=== PATIENT | female | born 1960 | race Caucasian/White ===

== ENCOUNTER → 2020-07-14 08:35 | Outpatient (BNVA) | payer MEDICARE, MEDICAID, SELFPAY | PROVIDERS: Visit Provider Advanced Practice Midwife | DX: Z76.89 Persons encountering health services in other specified circumstances (principal) ==

== ENCOUNTER 2020-07-14 09:00 | Outpatient (RCR) | payer MEDICARE, MEDICAID, SELFPAY ==
--- NOTE | 2020-06-15 04:16 | HO.OPPROGNO ---
Subjective Subjective Date of Service: 06/13/20 Reason For Visit: DEPRESSION Interim History: Jaja reports she is doing well. 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 This began about one month ago. is helping pt with monitoring pt's mood, sleep, to assess for sx hypomania. Pt reports she stopped Depakote, is using Trazodone prn only and is feeling well. Son Myke is doing well, is sober, attending meetings and has applied for a job with [employer]. Grand-daughter Ana has initiated course work to become a mannequin maker and is helping to care for pt's son's children. She does struggle with issues at times which pt and believe to be developmental and in response to the pandemic. Medication Compliance: Yes Side effects from medications: Yes (Depakote. Pt stopped) Attending Groups: No (NA) Review of Systems Review of Systems Yes all other systems are reviewed and are negative Cardiovascular: Reports other (recent lipid panel pt reports was WNL) Respiratory: Reports other (COPD sx are well managed) Reports other (RLS sx managed with ropinirole) Mental Status Exam Mental Status Exam Patient Orientation: Person, Place, Time and Situation Level of Consciousness: Appropriate Patient Behavior: Appropriate Mood Description: Calm and Appropriate Affect Description: Calm and Appropriate Patient Cognition Impaired: No Ability to Follow Directions: Excellent Speech Pattern: Clear and Appropriate Memory Description: Intact Hallucinations: None Delusions: Not Present Thought Process: Intact Thought Content: positive for Intact Judgement: Good Diagnostics Labs Labs: Aug 2020 and prn Discharge Plan Discharge Attending provider: Padmini Castorena Medications: Continued lithium carbonate 450 mg tablet extended release 450 mg PO DAILY Qty: 30 RF: 0 citalopram [Celexa] 20 mg tablet 20 mg PO DAILY Qty: 30 RF: 0 trazodone 100 mg tablet 100 mg PO BEDTIME PRN (Reason: insomnia) Qty: 30 RF: 0 pregabalin [Lyrica] 50 mg capsule 50 mg PO .Five (5) times daily Qty: 150 RF: 0 No Action nystatin 100,000 unit/mL suspension 100,000 unit PO DAILY PRN (Reason: 5 ml . po , swish and swallow bid) 15 Days Qty: 250 RF: 1 atorvastatin 20 mg tablet 20 mg PO DAILY RF: 0 levothyroxine 75 mcg tablet 75 mcg PO DAILY RF: 0 ropinirole 0.5 mg tablet 0.5 mg PO BEDTIME RF: 0 albuterol sulfate [Ventolin HFA] 90 mcg/actuation HFA aerosol inhaler 2 puff PO Q6H PRN (Reason: Shortness Of Breath) RF: 0 cholecalciferol (vitamin D3) 25 mcg (1,000 unit) tablet 25 mcg PO DAILY RF: 0 fluticasone propion-salmeterol 113-14 mcg/actuation aerosol powdr breath activated 1 puff PO BID RF: 0 Assessment & Plan Patient educated on: medication risk/benefits (Discontinue Depakote. Continue Citalopram, [place], Lyrica, Trazodone) and therapeutic strategies (Self-care, sleep, assessment for sx of leah) Informed Consent: understands and further education needed Reason for contiued therapy Substantial Risk for: inability to function and rapid decompensation Greater than 50% of the session was spent on counseling and/or coordination of care
--- NOTE | 2020-07-14 16:40 | HO.OPPROGNO ---
Subjective Subjective Date of Service: 07/15/20 Reason For Visit: DEPRESSION Interim History: Jaja reports she is well. She is in need of refills. We will order labs today. 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 Family is well, they are all working together to make holidays special given pandemic restrictions. Reports regime to be effective-using Trazodone rarely as she is currently able to sleep well without it. Medication Compliance: Yes Side effects from medications: No Review of Systems Reports other (RLS sx managed with ropinirole) Psychiatric: Reports no additional psychiatric complaints and Reports as per [facility] Mental Status Exam Mental Status Exam Patient Orientation: Person, Place, Time and Situation Level of Consciousness: Awake, Appropriate and Alert Patient Behavior: Appropriate, Talkative and Cooperative Mood Description: Calm Affect Description: Calm and Flat (mild) Patient Cognition Impaired: No Ability to Follow Directions: Excellent Speech Pattern: Clear, Appropriate, Spontaneous Speech and Soft-Spoken Memory Description: Intact Hallucinations: None Delusions: Not Present Thought Process: Intact and Goal Oriented Thought Content: positive for Intact and positive for Goal Oriented Judgement: Good Diagnostics Labs Labs: Lab orders sent today. Pt plans to follow up on 07/21/20. Discharge Plan Discharge Attending provider: Padmini Castorena Medications: Continued trazodone 100 mg tablet 100 mg PO BEDTIME PRN (Reason: insomnia) Qty: 30 RF: 0 lithium carbonate 450 mg tablet extended release 450 mg PO DAILY Qty: 30 RF: 1 citalopram [Celexa] 20 mg tablet 20 mg PO DAILY Qty: 30 RF: 1 pregabalin [Lyrica] 50 mg capsule 50 mg PO .Five (5) times daily Qty: 150 RF: 0 No Action nystatin 100,000 unit/mL suspension 100,000 unit PO DAILY PRN (Reason: 5 ml . po , swish and swallow bid) 15 Days Qty: 250 RF: 1 atorvastatin 20 mg tablet 20 mg PO DAILY RF: 0 levothyroxine 75 mcg tablet 75 mcg PO DAILY RF: 0 ropinirole 0.5 mg tablet 0.5 mg PO BEDTIME RF: 0 albuterol sulfate [Ventolin HFA] 90 mcg/actuation HFA aerosol inhaler 2 puff PO Q6H PRN (Reason: Shortness Of Breath) RF: 0 cholecalciferol (vitamin D3) 25 mcg (1,000 unit) tablet 25 mcg PO DAILY RF: 0 fluticasone propion-salmeterol 113-14 mcg/actuation aerosol powdr breath activated 1 puff PO BID RF: 0 Assessment & Plan Assessment & Plan (1) Bipolar II disorder: Status: Acute Code(s): F31.81 - Bipolar II disorder Assessment and Plan: -Continue current regime- [place], Citalopram, Lyrica -Change Trazodone to prn-pt reports sleep to be improved and not needing this agent much-No refill needed per pt report. -Continue psychotherapy with Matthew KENDRICK, [facility]. Patient educated on: medication risk/benefits and therapeutic strategies Informed Consent: understands Reason for contiued therapy Substantial Risk for: inability to function and rapid decompensation Greater than 50% of the session was spent on counseling and/or coordination of care
--- NOTE | 2020-07-31 08:29 | P.EN_ITS ---
Event Note Date of Service: 07/31/20 Event Note: On 07/30/20, discussed with pt that [facility] out patient clinic will cl ose. Pt will discuss with her therapist, Matthew KENDRICK of [facility], and arrange for her medication appointments to be consolidated with her psychotherapy.
--- NOTE | 2020-07-31 08:29 | PM.EVENT ---
Event Note Date of Service: 07/31/20 Event Note: On 07/30/20, discussed with pt that [facility] out patient clinic will close. Pt will discuss with her therapist, Matthew KENDRICK of [facility], and arrange for her medication appointments to be consolidated with her psychotherapy.
== END 2020-08-14 23:55 | disposition home or self-care (01) ==
LOC: HO.PAOS 09:00
PROVIDERS: Visit Provider Clinical Nurse Specialist Psychiatric/Mental Health, Adult
DX: F33.2 Major depressive disorder, recurrent severe without psychotic features (principal); Z79.899 Other long term (current) drug therapy
CPT/HCPCS: 99213

== ENCOUNTER → 2020-07-21 08:15 | Outpatient (BNVA) | payer MEDICARE, MEDICAID, SELFPAY | PROVIDERS: Visit Provider Advanced Practice Midwife | DX: Z76.89 Persons encountering health services in other specified circumstances (principal) ==

== ENCOUNTER 2020-08-06 08:55 | Outpatient (REF) | payer MEDICARE, MEDICAID, SELFPAY | END 2020-08-06 08:56 | disposition home or self-care (01) | LOC: HO.LAB 08:55 | PROVIDERS: PCP Internal Medicine; Visit Provider Internal Medicine | DX: Z20.828 Contact with and (suspected) exposure to other viral communicable diseases (principal) | CPT/HCPCS: C9803; U0003 ==

== ENCOUNTER 2020-12-25 22:08 | Emergency (ER) | payer MEDICARE, MEDICAID, SELFPAY ==
--- NOTE | ~2020-12-25 | XR_ITS ---
EXAMINATION: XR SHOULDER, LEFT CLINICAL INFORMATION: Fell on left shoulder. COMPARISON: None TECHNIQUE: AP external rotation, Grashey, scapular Y, and axillary views of the left shoulder. FINDINGS: There is a nondisplaced transverse fracture surgical neck left humerus. There is no dislocation. There is deformity involving the left AC joint likely previous intervention or injury The soft tissues are normal. XR/XR shoulder LT min 2V IMPRESSION: Undisplaced transverse fracture surgical neck left humerus. There is no dislocation. The soft tissues are unremarkable.
[2020-12-25 22:22] VITALS: BP 127/60; PULSE 65; RESP 16; O2SAT 97; BMI 21.0
--- NOTE | 2020-12-25 22:24 | ED_ITS ---
HPI - Extremity Problem General Chief complaint: Fall Stated complaint: fall Time Seen by Provider: 12/25/20 22:23 Source: patient Mode of arrival: ambulatory Limitations: no limitations History of Present Illness HPI Narrative: fell in kitchen and landed on left shoulder, one hour ago Complaint: extremity pain Onset (ago): hour(s) Pain Consistency: constant Location: left and upper extremity Quality: sharp Radiation: none Relieving factors: nothing Exacerbating factors: range of motion Related Data Home Medications Medication Instructions Recorded Confirmed cholecalciferol (vitamin D3) 25 mcg PO DAILY 06/15/20 09/15/20 fluticasone propion-salmeterol 1 puff PO BID 06/15/20 09/15/20 levothyroxine 75 mcg PO DAILY 06/15/20 09/15/20 ropinirole 0.5 mg PO BEDTIME 06/15/20 09/15/20 pramipexole 0.5 mg tablet 0.5 mg PO BEDTIME 07/21/20 09/15/20 Previous Rx's Medication Instructions Recorded nystatin 100,000 unit/mL oral 100,000 unit PO DAILY PRN 15 Days 05/28/20 suspension #250 ml trazodone 100 mg PO BEDTIME PRN #30 tab 06/13/20 albuterol sulfate 90 mcg/actuation 2 puff PO Q6H PRN 90 Days #3 ea 09/25/20 aerosol inhaler atorvastatin 20 mg tablet 20 mg PO DAILY #90 tab 10/01/20 Lyrica 50 mg capsule 50 mg PO 5XD #150 cap NS 12/10/20 citalopram 20 mg tablet 20 mg PO DAILY #30 cap 12/10/20 lithium carbonate 450 mg 450 mg PO DAILY #30 cap 12/10/20 tablet,extended release famotidine 20 mg tablet 20 mg PO DAILY #90 tab 12/17/20 oxycodone 5 mg PO Q6H PRN #10 tab 12/25/20 Allergies Allergy/AdvReac Type Severity Reaction Status Date / Time olanzapine [From ZYPREXA] AdvReac Intermediate RLS Verified 12/25/20 22:25 symptoms atypical antipsychotics AdvReac Severe This class Uncoded 12/25/20 22:25 appears to potentiate RLS/Akathesia Review of Systems Constitutional: Constitutional: Reports no additional constitutional complaints Eyes: Eyes: Reports no additional eye complaints ENT: Denies dizziness Cardiovascular: Cardiovascular: Reports no additional cardiovascular complaints Respiratory: Respiratory: Reports as per HPI Gastrointestinal: Gastrointestinal: Reports no additional gastrointestinal complaints Genitourinary: Genitourinary: Reports no additional female genitourinary complaints Musculoskeletal: Musculoskeletal: Reports no additional musculoskeletal complaints Integumentary/Breasts: Skin/Breast: Denies rash Neurologic: Reports system reviewed and no additional complaints, except as documented, Denies dizziness and Denies Sensory deficit (Neuro) Psychiatric: Psychiatric: Denies anxiety [facility] Past Medical History Medical History Bipolar II disorder COPD (chronic obstructive pulmonary disease) HLD (hyperlipidemia) Hypothyroidism RLS (restless legs syndrome) Surgical History H/O: hysterectomy Family History Family History Mother No problems noted. Father No problems noted. Social History Social History Alcohol intake: never Smoking Status: Current every day smoker Tobacco Type: Cigarette Cigarettes Per Day: 3 Advance Directives: No Advance Directives Information Provided: No Sexual orientation: Straight/Heterosexual Physical Exam Vital Signs: Vital Signs: Last Vital Signs Pulse 65 12/25/20 22:22 Resp 16 12/25/20 22:22 BP 127/60 12/25/20 22:22 Pulse Ox 97 12/25/20 22:22 Body Mass Index 21.0 Const: Other: frail appearing in pain Nutritional Appearance: thin Orientation/consciousness: oriented to person and patient oriented x3 Limitations: no limitations HENMT: Head: Yes normal to inspection Ears: external ears normal General nose exam: Normal external nose present Mouth: Normal oral and palatal mucosa present and oropharynx normal Throat: Yes posterior oropharynx normal Eyes: General: appearance normal, both eyes and all related structures Neck: Other: supple Neck: Yes normal visual inspection Chest: Chest palpation & inspection: normal inspection of the chest Resp: Auscultation: clear to auscultation bilaterally Cardio: Jugular venous distension: no JVD Rate: regular rate Rhythm: regular rhythm Heart sounds: S1 normal heart sound present and S2 normal heart sound present GI: Inspection: Yes normal to inspection Palpation (GI): Soft to palpation, nontender and No hepatosplenomegaly present Auscultation: normal bowel sounds : General: Yes no CVA tenderness Back/Spine/Pelvis: Back: no CVA tenderness Skin: General skin exam: no rashes or lesions noted Neuro: General: oriented to person and patient oriented x3 Cranial nerves: Yes CN's II-XII intact bilaterally Motor exam (neuro): 5/5 motor strength present throughout Sensory Exam: No Sensory deficit (Neuro) Extrem: Other: left shoulder with swelling unable to range Psych: Appearance: grossly normal MDM - Extremity (Nontraumatic) Imaging Data shoulder left: Radiologist's impression: nondisplace fx Discharge Plan Discharge Clinical Impression: Fracture of shoulder Qualifiers: Encounter type: initial encounter Fracture type: closed Laterality: left Qualified Code(s): S42.92XA - Fracture of left shoulder girdle, part unspecified, initial encounter for closed fracture Patient Disposition: Home, Self-Care Instructions: Arm Fracture in Adults (ED) Prescriptions: No Action nystatin 100,000 unit/mL suspension 100,000 unit PO DAILY PRN (Reason: 5 ml . po , swish and swallow bid) 15 Days Qty: 250 RF: 1 albuterol sulfate [Ventolin HFA] 90 mcg/actuation HFA aerosol inhaler 2 puff PO Q6H PRN (Reason: Shortness Of Breath) 90 Days Qty: 3 RF: 1 atorvastatin 20 mg tablet 20 mg PO DAILY Qty: 90 RF: 8 citalopram 20 mg tablet 20 mg PO DAILY Qty: 30 RF: 0 lithium carbonate 450 mg tablet extended release 450 mg PO DAILY Qty: 30 RF: 0 pregabalin [Lyrica] 50 mg capsule 50 mg PO 5XD Qty: 150 RF: 0 famotidine 20 mg tablet 20 mg PO DAILY Qty: 90 RF: 8 trazodone 100 mg tablet 100 mg PO BEDTIME PRN (Reason: insomnia) Qty: 30 RF: 0 levothyroxine 75 mcg tablet 75 mcg PO DAILY RF: 0 ropinirole 0.5 mg tablet 0.5 mg PO BEDTIME RF: 0 cholecalciferol (vitamin D3) 25 mcg (1,000 unit) tablet 25 mcg PO DAILY RF: 0 fluticasone propion-salmeterol 113-14 mcg/actuation aerosol powdr breath activated 1 puff PO BID RF: 0 pramipexole 0.5 mg tablet 0.5 mg PO BEDTIME RF: 0 Referrals: Smooth Gray MD [Primary Care Provider] - 10 days Martell Temple MD [Physician] - 5 days
[2020-12-25] MEDS: oxyCODONE HCl ER 10 MG TAB.ER.12H PO (22:55)
== END 2020-12-25 23:54 | disposition home or self-care (01) ==
PROVIDERS: Emergency Provider Emergency Medicine; PCP Internal Medicine
DX: S42.215A Unspecified nondisplaced fracture of surgical neck of left humerus, initial encounter for closed fracture (principal); W01.0XXA Fall on same level from slipping, tripping and stumbling without subsequent striking against object, initial encounter; E78.5 Hyperlipidemia, unspecified; J44.9 Chronic obstructive pulmonary disease, unspecified; F17.210 Nicotine dependence, cigarettes, uncomplicated; Y93.9 Activity, unspecified; Y92.010 Kitchen of single-family (private) house as the place of occurrence of the external cause; Y99.9 Unspecified external cause status
CPT/HCPCS: 73030; 99283; 99284

== ENCOUNTER 2021-01-06 08:21 | Outpatient (REF) | payer MEDICARE, MEDICAID, SELFPAY ==
--- NOTE | ~2021-01-06 | XR_ITS ---
EXAMINATION: XR SHOULDER, LEFT CLINICAL INFORMATION: Pain. COMPARISON: Left shoulder radiographs dated 12/25/2020. TECHNIQUE: AP and scapular Y views of the left shoulder. FINDINGS: Redemonstration of a comminuted proximal left humeral fracture with a dominant transverse component through the humeral neck. No dislocation. Acromioclavicular marginal osteophytes. Possible loose body within the inferior aspect of the left glenohumeral joint space. XR/XR shoulder LT min 2V IMPRESSION: Displaced proximal left humeral fracture with a dominant transverse component to the humeral neck. Similar anatomic alignment when compared to the prior examination.
== END 2021-01-06 08:22 | disposition home or self-care (01) ==
LOC: HO.HOSX 08:21
PROVIDERS: PCP Internal Medicine; Visit Provider Physician Assistant
DX: M25.512 Pain in left shoulder (principal); S42.302A Unspecified fracture of shaft of humerus, left arm, initial encounter for closed fracture; S42.202A Unspecified fracture of upper end of left humerus, initial encounter for closed fracture; W01.0XXA Fall on same level from slipping, tripping and stumbling without subsequent striking against object, initial encounter; Y93.01 Activity, walking, marching and hiking; Y92.003 Bedroom of unspecified non-institutional (private) residence as the place of occurrence of the external cause; Y99.8 Other external cause status; G25.81 Restless legs syndrome; E78.5 Hyperlipidemia, unspecified; E03.9 Hypothyroidism, unspecified; F17.210 Nicotine dependence, cigarettes, uncomplicated; Z88.8 Allergy status to other drugs, medicaments and biological substances
CPT/HCPCS: 73030; 99202; J1040

== ENCOUNTER 2021-02-06 09:12 | Outpatient (REF) | payer MEDICARE, MEDICAID, SELFPAY ==
--- NOTE | ~2021-02-06 | XR_ITS ---
EXAMINATION: XR SHOULDER, LEFT CLINICAL INFORMATION: Fracture of the upper humerus. COMPARISON: Radiographs on 01/06/2021 of the left shoulder. TECHNIQUE: AP external rotation, Grashey, scapular Y, and axillary views of the left shoulder. FINDINGS: A transverse surgical neck fracture of the left humerus is in unchanged alignment when compared to 01/06/2021. There is evidence of bony remodeling and interval healing. There is no dislocation. No new fractures identified. Marginal osteophytes of the acromioclavicular joint are redemonstrated. No other significant change. XR/XR shoulder LT min 2V IMPRESSION: Overall stable alignment of left humeral surgical neck fracture with evidence of interval bony remodeling. No dislocation.
== END 2021-02-06 09:13 | disposition home or self-care (01) ==
LOC: HO.XRAY 09:12
PROVIDERS: PCP Internal Medicine; Visit Provider Physician Assistant
DX: S42.202D Unspecified fracture of upper end of left humerus, subsequent encounter for fracture with routine healing (principal); X58.XXXD Exposure to other specified factors, subsequent encounter
CPT/HCPCS: 73030; 99212

== ENCOUNTER 2021-03-09 07:38 | Outpatient (REF) | payer MEDICARE, MEDICAID, SELFPAY ==
--- NOTE | ~2021-03-09 | XR_ITS ---
EXAMINATION: XR SHOULDER, LEFT CLINICAL INFORMATION: Fracture follow-up COMPARISON: 12/25/2020 and 02/06/2021 TECHNIQUE: Two views of the left shoulder. 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 Again noted is the fracture of the surgical neck of the humerus with 0.5 cm of anterior displacement of the humeral shaft fragment. Although marginal callus formation is noted, there is no convincing solid bridging bone between the humeral head and shaft fragments. Alignment is maintained at the glenohumeral joint. The humeral head is well-positioned over the glenoid. The visualized left upper lung is normal. XR/XR shoulder LT min 2V IMPRESSION: There is mild healing response of the proximal humeral fracture. Currently, there is no convincing solid bridging bone between fragments.
== END 2021-03-09 07:39 | disposition home or self-care (01) ==
LOC: HO.HOSX 07:38
PROVIDERS: Visit Provider Physician Assistant
DX: S42.202D Unspecified fracture of upper end of left humerus, subsequent encounter for fracture with routine healing (principal)
CPT/HCPCS: 73030; 99212

== ENCOUNTER 2021-04-02 10:00 | Outpatient (RCR) | payer MEDICARE, MEDICAID, SELFPAY ==
--- NOTE | 2021-02-26 13:41 | MHC.PT.EP ---
[facility] [place] Office [place] Office [place] Office [address] Stephanie Combs [address] [phone] F: [phone] F: [phone] F: [phone] F: [phone] Physical Therapy Plan of Care Date of Evaluation: Date of Surgery: N/A Diagnosis: fracture of upper end of R humerus Assessment: 60 y/o F [facility] referred for fracture of L proximal humerus on 12/25/20 (9 weeks ago). Pt complains of pain and difficulty with dressing, grooming, sleeping, lifting, and reaching. Examination shows decreased L shoulder ROM in flexion and ER, increased pain with end-range P/AAROM, and decreased scapular and RTC strength. Recommend PT 2x/week for 5 weeks to address impairments, implement HEP, and optimize functional mobility. Will utilize [facility] protocol for Non-operative proximal humeral fracture rehabilitation protocol. Frequency and Duration: The patient will be seen 2x/week for 5 weeks Short Term Goals: 2 weeks: 1. I with HEP 2. Pt will increase L shoulder flexion by >10 degrees 3. Pt will increase L shoulder ER by >5 degrees Nursing Home Goals: 5 weeks: 1. I with HEP and self-management of sx 2. Pt will be able to reach over head to complete grooming and bathing with <3/10 pain 3. Pt will be able to lift >10# with <3/10 pain to facilitate return to work Treatment Plan: Modalities to reduce pain, spasms and effusion. Manual therapy to restore motion and function. Therapeutic exercise to improve strength and flexibility. Neuromuscular re-education for posture and balance. Therapeutic activities to return to functional activities of daily living. Electronically signed by: Maryam Turcios PT Please sign and return to therapist. Thank you for your referral.
--- NOTE | 2021-05-12 11:48 | MHC.PT.DC ---
[facility] [place] Office [place] Office [employer] Office [address] Stephanie Combs [address] [phone] F: [phone] F: [phone] F: [phone] F: [phone] Physical Therapy Discharge Report Diagnosis: Humeral Fx Date of Surgery: DOI 12/25/20 Date of Evaluation: 02/26/21 Date of Discharge: 05/12/21 Treatments to Date: 6 Cancellations to Date: 0 No Shows to Date: 4 Discharge Status: Independent with HEP Visit Non-compliance Discharge Summary: Pt did not f/u with further visits and is not d/c Electronically signed by: Maryam Turcios PT Please sign and return to therapist. Thank you for your referral.
== END 2021-05-12 11:49 | disposition home or self-care (01) ==
LOC: HO.PT 10:00
PROVIDERS: Visit Provider Physician Assistant
DX: S42.202D Unspecified fracture of upper end of left humerus, subsequent encounter for fracture with routine healing (principal)
CPT/HCPCS: 97110; 97140; 97161

== ENCOUNTER 2021-04-27 07:10 | Outpatient (REF) | payer MEDICARE, MEDICAID, SELFPAY | END 2021-04-27 07:11 | disposition home or self-care (01) | LOC: HO.HOSX 07:10 | PROVIDERS: Visit Provider Physician Assistant | DX: Z13.89 Encounter for screening for other disorder (principal) ==

== ENCOUNTER → 2021-07-07 14:32 | Outpatient (BNVA) | payer SELFPAY | PROVIDERS: PCP Internal Medicine | DX: Z02.83 Encounter for blood-alcohol and blood-drug test (principal) ==

== ENCOUNTER 2021-07-21 13:50 | Emergency (ER) | payer MEDICARE, MEDICAID, SELFPAY ==
[2021-07-21 14:02] VITALS: BP 112/84; PULSE 75; RESP 18; TEMP 36.6; O2SAT 95; BMI 19.3
--- NOTE | 2021-07-21 14:11 | ED.PSYCH ---
HPI - Psych General Chief Complaint: Psychiatric Symptoms Stated Complaint: CRISIS Time Seen by Provider: 07/21/21 14:06 Source: patient and family Mode of arrival: ambulatory Limitations: no limitations History of Present Illness MD complaint: feels depressed and anxiety Onset (ago): week(s) Duration: getting worse History of same: Yes Relieving factors: none Context: significant life stressor Associated psychiatric symptoms: depression Associated symptoms: denies other symptoms Treatments prior to arrival: none Related Data Home Medications Medication Instructions Recorded Confirmed cholecalciferol (vitamin D3) 25 25 mcg PO DAILY 06/15/20 07/21/21 mcg (1,000 unit) tablet fluticasone 113 mcg-salmeterol 14 1 puff PO BID 06/15/20 02/11/21 mcg/actuation breath activated powdr ropinirole 0.5 mg tablet 0.5 mg PO BEDTIME 06/15/20 02/11/21 pramipexole 0.5 mg tablet 0.5 mg PO BEDTIME 07/21/20 02/11/21 pramipexole 0.25 mg tablet mg PO 01/06/21 02/11/21 atorvastatin 20 mg tablet 1 tab PO DAILY 07/21/21 07/21/21 citalopram 20 mg tablet 1 tab PO DAILY 07/21/21 07/21/21 pramipexole 0.25 mg tablet 1 tab PO BID 07/21/21 07/21/21 pregabalin 50 mg capsule (Lyrica) 1 cap PO 5XD 07/21/21 07/21/21 Previous Rx's Medication Instructions Recorded nystatin 100,000 unit/mL oral 100,000 unit PO DAILY PRN 15 Days 05/28/20 suspension #250 ml trazodone 100 mg tablet 100 mg PO BEDTIME PRN #30 tab 06/13/20 atorvastatin 20 mg tablet 20 mg PO DAILY #90 tab 10/01/20 famotidine 20 mg tablet 20 mg PO DAILY #90 tab 12/17/20 tramadol 50 mg tablet 50 mg PO Q6H PRN 7 Days #28 tab 01/06/21 oxycodone 5 mg tablet 5 mg PO Q8H PRN 7 Days #21 tab 01/20/21 albuterol sulfate 90 mcg/actuation 2 puff INHALATION Q4-6H PRN 90 02/05/21 aerosol inhaler (Ventolin HFA) Days #3 ea levothyroxine 75 mcg tablet 75 mcg PO DAILY #30 tab 03/30/21 lorazepam 0.5 mg tablet 0.5 mg PO BID PRN 28 Days #56 tab 06/16/21 Lyrica 50 mg capsule (pregabalin) 50 mg PO 5XD #150 cap NS 07/13/21 citalopram 20 mg tablet 20 mg PO DAILY #30 cap 07/13/21 lithium carbonate 450 mg 450 mg PO DAILY #30 cap 07/13/21 tablet,extended release Allergies Allergy/AdvReac Type Severity Reaction Status Date / Time olanzapine [From ZYPREXA] AdvReac Intermediate RLS Verified 03/09/21 09:37 symptoms atypical antipsychotics AdvReac Severe This class Uncoded 02/06/21 09:37 appears to potentiate RLS/Akathesia Review of Systems Review of Systems: Constitutional : No Fever, No Chills ENT/Mouth : No Ear Pain, No Nasal Congestion, No sore throat Eyes: No Eye Pain, No Swelling, No Redness Cardiovascular : No Chest Pain, No SOB Respiratory : No Cough, No Sputum, No Dyspnea Gastrointestinal : No Nausea, No Vomiting, No Diarrhea, No Hematochezia, No Melena Genitourinary : No Dysuria, No Urinary Frequency, No Hematuria Musculoskeletal : No Myalgias Skin : No Skin Lesions, No rash Neuro : No Weakness, No Numbness, No Paresthesias, No Dizziness, No Headache Psych : positive Anxiety, positive Depression, no SI/HI Heme/Lymph: No Lymphadenopathy Endocrine : No Polyuria, No Polydipsia All other systems reviewed and are negative PMFSH Past Medical History Attestation statement: The following information was validated with the patient. Medical History Bipolar II disorder COPD (chronic obstructive pulmonary disease) HLD (hyperlipidemia) Hypothyroidism Osteoporosis RLS (restless legs syndrome) Surgical History H/O: hysterectomy Family History Family History Mother No problems noted. Father No problems noted. Son Substance use disorder Social History Social History Housing: House Alcohol intake: never Patient Tobacco Use Status: Current everyday Tobacco user Tobacco use type: Cigarette Cigarettes Per Day: 5 e-Cigarette/Vaping Use: Never Used Second Hand Smoke Exposure: No Advance Directives: No Advance Directives Information Provided: No service: No Current occupational status: employed Sexual orientation: Straight/Heterosexual Physical Exam Vital Signs: Vital Signs: Last Vital Signs Temp 98.4 F 07/21/21 14:37 Pulse 78 07/21/21 14:37 Resp 16 07/21/21 14:37 BP 111/70 07/21/21 14:37 Pulse Ox 95 07/21/21 14:37 BMI result Body Mass Index 19.3 Appearance: Alert. Oriented X3. No acute distress. Anxious, tearful Eyes: Pupils equal, round and reactive to light. ENT: Pharynx normal. Neck: Normal inspection. Neck supple. CVS: Normal heart rate and rhythm. Pulses normal. Respiratory: No respiratory distress. Breath sounds normal. Abdomen: Soft and nontender. Skin: Skin warm and dry. Normal skin color. Normal skin turgor. Extremities: No lower extremity edema. No calf ttp Neuro: Oriented X 3. No motor deficit. No sensory deficit. CN 2-12 intact Psych: tearful, anxious, depressed, present with patient Course Course Course Narrative: Physician observation started at 402pm. Patient placed in physician observation because the patient needed more time for CARE team evaluation. At the time observation was started the patient's vitals were stable, patient is alert and oriented but anxious and tearful, Neuro: nonfocal, CV RRR, Lungs clear MDM - Psych MDM Narrative Medical decision making narrative: 60 yo female wit hx of COPD, RLS, bipolar disorder, HLD here with c/o worsening depression given recent loss of mother and significant life stressors at this time clearance labs, COVID swab, EKG, CARE team consult Lab Data Result diagrams: 07/21/21 15:33 07/21/21 15:33 Labs: Lab Results 07/21/21 07/21/21 07/21/21 Range/Units 15:33 15:33 15:33 WBC 8.3 (4.8-10.8) X10*3/uL RBC 4.01 L (4.20-5.50) X10*6/uL Hgb 13.1 (12.0-16.0) g/dl Hct 39.6 (37.0-47.0) % MCV 98.8 H (80.0-98.0) fL MCH 32.7 (27.0-33.0) pg MCHC 33.1 (31.0-35.0) g/dl RDW 13.3 (11.0-16.0) % Plt Count 363 (160-400) X10*3/uL MPV 10.4 (9.4-12.3) fL Immature Gran % (Auto) 0.1 (0.0-0.4) % Neut % (Auto) 46.1 (45-73) % Lymph % (Auto) 40.1 H (20-40) % [place] % (Auto) 9.1 (2-11) % Eos % (Auto) 3.9 (0-4) % Baso % (Auto) 0.7 (0-2) % Lymph # (Auto) 3.3 (1.2-4.9) X10*3/uL [place] # (Auto) 0.8 (0.1-1.2) X10*3/uL Eos # (Auto) 0.3 (0.0-0.4) X10*3/uL Baso # (Auto) 0.1 (0.0-0.2) X10*3/uL Abs Immat Gran (auto) 0.01 (0.00-0.03) X10*3/uL Absolute Neuts (auto) 3.8 (2.0-8.3) x10*3/uL Absolute Nucleated RBC 0.000 (0.0-0.012) X10*3/uL Nucleated RBC % (auto) 0.0 (0.0-0.2) /100WBC Sodium 140 (135-145) mmol/L Potassium 3.6 (3.3-5.1) mmol/L Chloride 102 (96-108) mmol/L Carbon Dioxide 30 H (22-29) mmol/L Anion Gap 12 (12-20) BUN 11 (9-16) mg/dL Creatinine 0.85 (0.5-1.4) mg/dL Estim Creat Clear Calc 54.7 Estimated GFR > 60 Random Glucose 111 (60-115) mg/dL Calcium 9.1 (8.4-10.2) mg/dL Total Bilirubin 0.4 (0.0-1.0) mg/dL Direct Bilirubin < 0.2 (0.0-0.5) mg/dL AST 14 (5-31) U/L ALT 9 (0-31) U/L Alkaline Phosphatase 134 H (39-117) U/L Total Protein 6.6 (6.5-8.0) g/dL Albumin 4.1 (3.5-5.0) g/dL [place] (0.60-1.20) mmol/L Ethyl Alcohol mg/dL COVID-19 ([facility]) Negative (Negative) COVID-19 Clin Com See Note 07/21/21 07/21/21 Range/Units 15:33 15:33 WBC (4.8-10.8) X10*3/uL RBC (4.20-5.50) X10*6/uL Hgb (12.0-16.0) g/dl Hct (37.0-47.0) % MCV (80.0-98.0) fL MCH (27.0-33.0) pg MCHC (31.0-35.0) g/dl RDW (11.0-16.0) % Plt Count (160-400) X10*3/uL MPV (9.4-12.3) fL Immature Gran % (Auto) (0.0-0.4) % Neut % (Auto) (45-73) % Lymph % (Auto) (20-40) % [place] % (Auto) (2-11) % Eos % (Auto) (0-4) % Baso % (Auto) (0-2) % Lymph # (Auto) (1.2-4.9) X10*3/uL [place] # (Auto) (0.1-1.2) X10*3/uL Eos # (Auto) (0.0-0.4) X10*3/uL Baso # (Auto) (0.0-0.2) X10*3/uL Abs Immat Gran (auto) (0.00-0.03) X10*3/uL Absolute Neuts (auto) (2.0-8.3) x10*3/uL Absolute Nucleated RBC (0.0-0.012) X10*3/uL Nucleated RBC % (auto) (0.0-0.2) /100WBC Sodium (135-145) mmol/L Potassium (3.3-5.1) mmol/L Chloride (96-108) mmol/L Carbon Dioxide (22-29) mmol/L Anion Gap (12-20) BUN (9-16) mg/dL Creatinine (0.5-1.4) mg/dL Estim Creat Clear Calc Estimated GFR Random Glucose (60-115) mg/dL Calcium (8.4-10.2) mg/dL Total Bilirubin (0.0-1.0) mg/dL Direct Bilirubin (0.0-0.5) mg/dL AST (5-31) U/L ALT (0-31) U/L Alkaline Phosphatase (39-117) U/L Total Protein (6.5-8.0) g/dL Albumin (3.5-5.0) g/dL [place] 0.15 L (0.60-1.20) mmol/L Ethyl Alcohol < 10 mg/dL COVID-19 ([facility]) (Negative) COVID-19 Clin Com ECG Data Attestation: I personally reviewed and interpreted this ECG as follows: ECG interpretation date: 07/21/21 ECG interpretation time: 14:59 Interpretation: Rate: 63 Rhythm: NSR [place]: normal Normal P waves. Normal NANCI. Normal QRS complex. Poor R wave progression ST T wave : nonspecific no DAFNE qTC: normal prior studies: no acute ischemia The study has been interpreted contemporaneously by me. . Discharge Plan Discharge Clinical Impression: Depression Qualifiers: Depression Type: unspecified Qualified Code(s): F32.A - Depression, unspecified Prescriptions: No Action nystatin 100,000 unit/mL suspension 100,000 unit PO DAILY PRN (Reason: 5 ml . po , swish and swallow bid) 15 Days Qty: 250 RF: 1 atorvastatin 20 mg tablet 20 mg PO DAILY Qty: 90 RF: 8 famotidine 20 mg tablet 20 mg PO DAILY Qty: 90 RF: 8 oxycodone 5 mg tablet 5 mg PO Q8H PRN (Reason: pain) 7 Days Qty: 21 RF: 0 albuterol sulfate [Ventolin HFA] 90 mcg/actuation HFA aerosol inhaler 2 puff inhalation Q4-6H PRN (Reason: shortness of breath or wheezing) 90 Days Qty: 3 RF: 2 levothyroxine 75 mcg tablet 75 mcg PO DAILY Qty: 30 RF: 11 lorazepam 0.5 mg tablet 0.5 mg PO BID PRN (Reason: anxiety) 28 Days Qty: 56 RF: 5 citalopram 20 mg tablet 20 mg PO DAILY Qty: 30 RF: 8 lithium carbonate 450 mg tablet extended release 450 mg PO DAILY Qty: 30 RF: 0 pregabalin [Lyrica] 50 mg capsule 50 mg PO 5XD Qty: 150 RF: 0 trazodone 100 mg tablet 100 mg PO BEDTIME PRN (Reason: insomnia) Qty: 30 RF: 0 ropinirole 0.5 mg tablet 0.5 mg PO BEDTIME RF: 0 cholecalciferol (vitamin D3) 25 mcg (1,000 unit) tablet 25 mcg PO DAILY RF: 0 fluticasone propion-salmeterol 113-14 mcg/actuation aerosol powdr breath activated 1 puff PO BID RF: 0 atorvastatin 20 mg tablet 1 tab PO DAILY RF: 0 citalopram 20 mg tablet 1 tab PO DAILY RF: 0 pregabalin [Lyrica] 50 mg capsule 1 cap PO 5XD RF: 0 pramipexole 0.25 mg tablet 1 tab PO BID RF: 0 pramipexole 0.5 mg tablet 0.5 mg PO BEDTIME RF: 0 pramipexole 0.25 mg tablet PO RF: 0 tramadol 50 mg tablet 50 mg PO Q6H PRN (Reason: pain) 7 Days Qty: 28 RF: 0
--- NOTE | 2021-07-21 14:15 | ECG_ITS ---
Test Reason : MEDICAL CLEARANCE Blood Pressure : / mmHG Vent. Rate : 063 BPM Atrial Rate : 063 BPM P-R Int : 136 ms QRS Dur : 102 ms QT Int : 398 ms P-R-T Axes : 058 072 067 degrees QTc Int : 407 ms Normal sinus rhythm Septal infarct (cited on or before 21-JUL-2021) Abnormal ECG When compared with ECG of 20-JUL-2018 07:52, Questionable change in initial forces of Septal leads Referred By: Marilee Campos Electronically Signed By:Sebastian Vivas
[2021-07-21 14:37] VITALS: BP 111/70; PULSE 78; RESP 16; TEMP 36.9; O2SAT 95
[2021-07-21] MEDS: LORazepam 0.5 MG TABLET PO (15:39)
[2021-07-21 15:41] LABS: MANUAL DIFF FLAG NO
[2021-07-21 15:42] LABS: Basophils Absolute Auto 0.1 X10*3/uL (0.0-0.2); Basophils Percent Auto 0.7 % (0-2); Eosinophils Absolute Auto 0.3 X10*3/uL (0.0-0.4); Eosinophils Percent Auto 3.9 % (0-4); Hematocrit 39.6 % (37.0-47.0); Hemoglobin 13.1 g/dl (12.0-16.0); Imm Gran Abs Auto 0.01 X10*3/uL (0.00-0.03); Imm Gran Pct Auto 0.1 % (0.0-0.4); Lymphocytes Absolute Auto 3.3 X10*3/uL (1.2-4.9); Lymphocytes Percent Auto 40.1 % (20-40); Mean Corpuscular HGB Conc 33.1 g/dl (31.0-35.0); Mean Corpuscular Hemoglobin 32.7 pg (27.0-33.0); Mean Corpuscular Volume 98.8 fL (80.0-98.0); Mean Platelet Volume 10.4 fL (9.4-12.3); Monocytes Absolute Auto 0.8 X10*3/uL (0.1-1.2); Monocytes Percent Auto 9.1 % (2-11); Neutrophils Absolute Auto 3.8 x10*3/uL (2.0-8.3); Neutrophils Percent Auto 46.1 % (45-73); Platelet Count 363 X10*3/uL (160-400); Red Blood Count 4.01 X10*6/uL (4.20-5.50); Red Cell Distribution Width 13.3 % (11.0-16.0); White Blood Count 8.3 X10*3/uL (4.8-10.8)
[2021-07-21 15:50] LABS: Lithium 0.15 mmol/L (0.60-1.20)
[2021-07-21 15:55] LABS: Ethanol < 10 mg/dL
[2021-07-21 15:57] LABS: Alanine Aminotransferase 9 U/L (0-31); Albumin Level 4.1 g/dL (3.5-5.0); Alkaline Phosphatase 134 U/L (39-117); Anion Gap 12 (12-20); Aspartate Amino Transferase 14 U/L (5-31); Bilirubin Direct < 0.2 mg/dL (0.0-0.5); Bilirubin Total 0.4 mg/dL (0.0-1.0); Blood Urea Nitrogen 11 mg/dL (9-16); Calcium 9.1 mg/dL (8.4-10.2); Carbon Dioxide 30 mmol/L (22-29); Chloride 102 mmol/L (96-108); Creatinine Clr Calc Pharmacy 54.7; Estimated Glomerular Filt Rate > 60; Glucose Random 111 mg/dL (60-115); Potassium 3.6 mmol/L (3.3-5.1); Sodium 140 mmol/L (135-145); Total Protein 6.6 g/dL (6.5-8.0)
[2021-07-21 15:59] LABS: COVID-19 Test Negative (Negative)
--- NOTE | 2021-07-21 22:19 | MHC.CARE ---
CARE team notified of pt's planned arrival by in psychiatric provider this morning, requesting an evaluation to determine if she meets medical necessity for an admission. Pt contacted psychiatry this morning expressing that she is experiencing debilitating symptoms of anxiety and depression while she emeka with the grief associated with the loss of her mother and the 6th anniversary of her eldest son passing. She was observed to be anxious and irritable upon arrival to the behavior health pod, and engaged in a lengthy verbal argument with her after he tried to share something with the nurse outside of the her room. She accepted 0.5mg of ativan for agitation and has been sleeping since administration. CARE team clinicians attempted to meet with pt at 6pm and 10pm, however was unable to be roused awake. Initial assessment will be completed by this conventional mortgage underwriter and CARE team will follow up in the morning to complete mental status and determine final disposition and plan of care.
[2021-07-22 02:30] VITALS: BP 125/59; PULSE 61; RESP 16; TEMP 36.1; O2SAT 96
[2021-07-22] MEDS: LORazepam 0.5 MG TABLET PO ×2 (02:36→08:15)
[2021-07-22 02:52] LABS: Amphetamine Screen Urine Not Detected (Not Detect); Barbiturates, Urine Not Detected (Not Detect); Benzodiazepines Screen Urine POSITIVE (Not Detect); Cannabinoid Screen Urine POSITIVE (Not Detect); Cocaine Screen Urine POSITIVE (Not Detect); Fentanyl, urine Not Detected (Not Detect); Opiate Screen Urine Not Detected (Not Detect); Phencyclidine Screen Urine Not Detected (Not Detect)
[2021-07-22 05:52] LABS: Appearance Urine CLEAR; Color Urine YELLOW; Glucose Urine UA NEG (NEG); Leukocyte Esterase Urine NEG (NEG); Nitrite Urine NEG (NEG); PH 6.5 (5.0-8.0); Specific Gravity - Urine 1.015 (1.005-1.025); Urine Blood NEG (NEG); Urine Ketones NEG (NEG); Urine Protein NEG (NEG-TRACE)
--- NOTE | 2021-07-22 05:55 | PC.NURSE ---
Patient is currently in bed appears sleeping, no distress observed/reported at this time, patient was up from form 0130 to 0330, restless, tearful, PRN Ativan 0.5 mg administered as orderd with + effect, patient is awaiting Care Team evaluation in the morning, medication compliant, VSS, will continue to monitor.
[2021-07-22 05:58] LABS: Amorphous Sediment Urine 2+ /LPF; Bacteria Urine 1+ /LPF; Squamous Epithelial Cell Urine 2+ /LPF
[2021-07-22] MEDS: Levothyroxine Sodium 75 MCG TABLET PO (06:41)
[2021-07-22] MEDS: Pregabalin 50 MG CAPSULE PO ×4 (06:46→21:15)
--- NOTE | 2021-07-22 07:13 | PC.NURSE ---
patient appears to remain at rest at present, respirations are even and unlabored, patient appears in no distress. soon after arrival, patient was restless, some pacing, talking to self in room.
[2021-07-22] MEDS: Atorvastatin Calcium 20 MG TABLET PO (08:03)
[2021-07-22] MEDS: Pramipexole Di-HCL 0.25 MG TABLET PO ×2 (08:03→21:15)
[2021-07-22] MEDS: Escitalopram Oxalate 10 MG TABLET PO (08:04)
[2021-07-22] MEDS: Lithium Carbonate ER 450 MG TABLET.ER PO (08:04)
--- NOTE | 2021-07-22 08:23 | PC.NURSE ---
patient presents with pressured speech, tearful. t/w encouraged patient to wait when client asked about remaining ativan dose (had 1st dose around 130am out of two) client was unable to wait and asked for second dose, then stating after taking it i dont want to be on anything like this when i go home
--- NOTE | 2021-07-22 19:10 | PC.NURSE ---
Pt resting on bed in NAD, breathing with ease on RA with equal chest rise and fall bilaterally. Pt denies SI/HI. Pt states I'm just so anxious, I had asked [facility] for medicine but I didn't get any. I don't want benzos for when I leave here, but I don't mind being on ativan while I'm here. Pt continues I know I am prescribed two ativan per day, and this RN informs pt she rec'd 2 doses today. Pt agrees. Pt states Like I said, I don't want ativan for when I leave here, because I want a medication that I can take every single day. They said the medicine that I'm taking right now should help me, but let me tell you, it isn't. It isn't at all. This RN reassures pt that provider was contacted by [facility] for medication to help pt with her c/o anxiety. Pt expresses understanding. This RN to f/u with provider regarding meds.
[2021-07-22 19:15] VITALS: BP 136/85; PULSE 70; TEMP 36.1; O2SAT 95
[2021-07-22] MEDS: hydrOXYzine HCL 50 MG TABLET PO (19:46)
[2021-07-23] MEDS: Pregabalin 50 MG CAPSULE PO ×2 (06:10→11:51)
[2021-07-23 06:12] VITALS: BP 95/68; PULSE 72; RESP 15; TEMP 36.4; O2SAT 96
--- NOTE | 2021-07-23 06:17 | PC.NURSE ---
Patient slept through the night, no distress observed/reported, behavior appropriate, medication compliant, patient is pre-accepted to S1, disposition per care team section 12 inpatient bed search, VSS, will continue to monitor.
[2021-07-23] MEDS: Levothyroxine Sodium 75 MCG TABLET PO (06:34)
--- NOTE | 2021-07-23 07:02 | PC.NURSE ---
patient appears to remain asleep at present respirations are even and unlabored, patient appears in no distress
[2021-07-23] MEDS: Lithium Carbonate ER 450 MG TABLET.ER PO (08:31)
[2021-07-23] MEDS: Escitalopram Oxalate 10 MG TABLET PO ×2 (08:31→08:36)
[2021-07-23] MEDS: Atorvastatin Calcium 20 MG TABLET PO ×2 (08:31→08:36)
[2021-07-23] MEDS: Pramipexole Di-HCL 0.25 MG TABLET PO (11:51)
--- NOTE | 2021-07-23 15:21 | P.CNPS_ITS ---
History of Present Illness Date of Service: 07/23/21 Chief Complaint: Bipolar disorder,depressed;Cocaine/cannabis use Reason for Consult: involuntary hospitalization versus discharge from ED decision HPI Narrative: pt reports she was not doing well several days ago and came into the ED to be admitted for med adjustment. she feels disillusioned and misled today after being stuck in the ED for three days with daily promises of admission. she states she is feeling better, her crisis is past, and she just wants to do home. she feels she can get by on her current regimen until she is able to get in the door at a psych prescriber's office; her PCP has been bridging her in recent weeks/months. her recent crisis was precipitated by the anniversary of the loss of her son to opioid overdose 4 years ago and the loss of her mother, with whom she reports being very close, about a month ago. her situation was discussed in detail, including the risks/benefits to staying for med adjustment versus discharge to aftercare in the community. she was assessed as having capacity to make the decision and made a clear expression of preference to go home today. her was present for about half of the hour-long meeting, and the R/B were discussed in detail with him as well. CARE team was notified that no 12b would be signed and that pt was requested referral for appointment with prescriber at [facility] or [facility]. pt denied any SI/SIBI. Past Psychiatric History: see CARE team note Personal & Social History: see CARE team note ON LICENSE OF [facility] Medical History Bipolar II disorder COPD (chronic obstructive pulmonary disease) HLD (hyperlipidemia) Hypothyroidism Osteoporosis RLS (restless legs syndrome) Surgical History H/O: hysterectomy Substance History: cocaine, cannabis. h/o stimulant misuse. pt may have benzo addiction per history Diagnostics Vital Signs (24Hr): Vital Signs - 24 hr 07/22/21 19:15 07/23/21 06:12 Temperature 97 F 97.6 F Pulse Rate 70 72 Respiratory Rate 15 Blood Pressure 136/85 95/68 Pulse Oximetry 95 96 BMI result Body Mass Index 19.3 Labs Results: 07/21/21 15:33 07/21/21 15:33 Labs: Laboratory Results - last 48 hr 07/21/21 07/21/21 07/21/21 15:33 15:33 15:33 WBC 8.3 RBC 4.01 L Hgb 13.1 Hct 39.6 MCV 98.8 H MCH 32.7 MCHC 33.1 RDW 13.3 Plt Count 363 MPV 10.4 Immature Gran % (Auto) 0.1 Neut % (Auto) 46.1 Lymph % (Auto) 40.1 H [place] % (Auto) 9.1 Eos % (Auto) 3.9 Baso % (Auto) 0.7 Lymph # (Auto) 3.3 [place] # (Auto) 0.8 Eos # (Auto) 0.3 Baso # (Auto) 0.1 Abs Immat Gran (auto) 0.01 Absolute Neuts (auto) 3.8 Absolute Nucleated RBC 0.000 Nucleated RBC % (auto) 0.0 Sodium 140 Potassium 3.6 Chloride 102 Carbon Dioxide 30 H Anion Gap 12 BUN 11 Creatinine 0.85 Estim Creat Clear Calc 54.7 Estimated GFR > 60 Random Glucose 111 Calcium 9.1 Total Bilirubin 0.4 Direct Bilirubin < 0.2 AST 14 ALT 9 Alkaline Phosphatase 134 H Total Protein 6.6 Albumin 4.1 TSH 1.50 Urine Color Urine Appearance Urine pH Ur Specific [place] Urine Protein Urine Glucose (UA) Urine Ketones Urine Blood Urine Nitrite Ur Leukocyte Esterase Urine RBC Urine WBC Ur Squamous Epith Cells Amorphous Sediment Urine Bacteria Urine Opiates Screen Urine Fentanyl Screen Ur Barbiturates Screen Ur Phencyclidine Scrn Ur Amphetamines Screen U Benzodiazepines Scrn [place] Urine Cocaine Screen U Marijuana (THC) Screen Ethyl Alcohol COVID-19 ([facility]) Negative COVID-19 Clin Com See Note 07/21/21 07/21/21 07/22/21 15:33 15:33 02:27 WBC RBC Hgb Hct MCV MCH MCHC RDW Plt Count MPV Immature Gran % (Auto) Neut % (Auto) Lymph % (Auto) [place] % (Auto) Eos % (Auto) Baso % (Auto) Lymph # (Auto) [place] # (Auto) Eos # (Auto) Baso # (Auto) Abs Immat Gran (auto) Absolute Neuts (auto) Absolute Nucleated RBC Nucleated RBC % (auto) Sodium Potassium Chloride Carbon Dioxide Anion Gap BUN Creatinine Estim Creat Clear Calc Estimated GFR Random Glucose Calcium Total Bilirubin Direct Bilirubin AST ALT Alkaline Phosphatase Total Protein Albumin TSH Urine Color Urine Appearance Urine pH Ur Specific [place] Urine Protein Urine Glucose (UA) Urine Ketones Urine Blood Urine Nitrite Ur Leukocyte Esterase Urine RBC Urine WBC Ur Squamous Epith Cells Amorphous Sediment Urine Bacteria Urine Opiates Screen Not Detected Urine Fentanyl Screen Not Detected Ur Barbiturates Screen Not Detected Ur Phencyclidine Scrn Not Detected Ur Amphetamines Screen Not Detected U Benzodiazepines Scrn POSITIVE H [place] 0.15 L Urine Cocaine Screen POSITIVE H U Marijuana (THC) Screen POSITIVE H Ethyl Alcohol < 10 COVID-19 ([facility]) COVID-19 Clin Com 07/22/21 02:27 WBC RBC Hgb Hct MCV MCH MCHC RDW Plt Count MPV Immature Gran % (Auto) Neut % (Auto) Lymph % (Auto) [place] % (Auto) Eos % (Auto) Baso % (Auto) Lymph # (Auto) [place] # (Auto) Eos # (Auto) Baso # (Auto) Abs Immat Gran (auto) Absolute Neuts (auto) Absolute Nucleated RBC Nucleated RBC % (auto) Sodium Potassium Chloride Carbon Dioxide Anion Gap BUN Creatinine Estim Creat Clear Calc Estimated GFR Random Glucose Calcium Total Bilirubin Direct Bilirubin AST ALT Alkaline Phosphatase Total Protein Albumin TSH Urine Color YELLOW Urine Appearance CLEAR Urine pH 6.5 Ur Specific [place] 1.015 Urine Protein NEG Urine Glucose (UA) NEG Urine Ketones NEG Urine Blood NEG Urine Nitrite NEG Ur Leukocyte Esterase NEG Urine RBC 1-4 Urine WBC 1-4 Ur Squamous Epith Cells 2+ Amorphous Sediment 2+ Urine Bacteria 1+ Urine Opiates Screen Urine Fentanyl Screen Ur Barbiturates Screen Ur Phencyclidine Scrn Ur Amphetamines Screen U Benzodiazepines Scrn [place] Urine Cocaine Screen U Marijuana (THC) Screen Ethyl Alcohol COVID-19 ([facility]) COVID-19 Clin Com Mental Status Exam Mental Status Exam Narrative: dressed in [facility]. cooperative with interview. no PMA/PMR. speech variable, generally increased in rate and amount. nml loudness and latency. thoughts linear and logical. affect variable, but ultimately moderately labile and consistent with context. mood anxious/irritated. no SI/HI/AVH. Medications Medications Current Medications Acetaminophen (Acetaminophen 325 Mg Tablet) 650 mg PO Q6H PRN PRN Reason: Headache/Pain Mild Scale (1-3) Al Hydroxide/Mg Hydroxide (Magnesium Hydrox/Alum Hydrox 30 Ml Oral.Susp) 30 ml PO Q6H PRN PRN Reason: Heartburn/Nausea Albuterol Sulfate (Albuterol Sulfate 90 Mcg 8 Gm Inhaler) 2 puff INHALE Q4H PRN PRN Reason: shortness of breath or wheezing Atorvastatin Calcium (Atorvastatin Calcium 20 Mg Tablet) 20 mg PO DAILY [facility] Last Admin: 07/23/21 08:36 Dose: 20 mg Documented by: Escitalopram Oxalate (Escitalopram Oxalate 10 Mg Tablet) 10 mg PO DAILY [facility] Last Admin: 07/23/21 08:36 Dose: 10 mg Documented by: Hydroxyzine HCl (Hydroxyzine Hcl 25 Mg Tablet) 25 mg PO BEDTIME PRN PRN Reason: Anxiety Levothyroxine Sodium (Levothyroxine Sodium 75 Mcg Tablet) 75 mcg PO DAILY@0600 [facility] Last Admin: 07/23/21 06:34 Dose: 75 mcg Documented by: [place] Carbonate ([place] Carbonate Er 450 Mg Tablet.Er) 450 mg PO DAILY [facility] Last Admin: 07/23/21 08:31 Dose: 450 mg Documented by: Lorazepam (Lorazepam 0.5 Mg Tablet) 0.5 mg PO BID PRN PRN Reason: anxiety Last Admin: 07/22/21 08:15 Dose: 0.5 mg Documented by: Magnesium Hydroxide (Milk Of Magnesia 30 Ml Oral.Susp) 30 ml PO DAILY PRN PRN Reason: Constipation Pramipexole Dihydrochloride (Pramipexole Di-Hcl 0.25 Mg Tablet) 0.25 mg PO BID [facility] Last Admin: 07/23/21 11:51 Dose: 0.25 mg Documented by: Pregabalin (Pregabalin 50 Mg Capsule) 50 mg PO 5XD [facility] Last Admin: 07/23/21 11:51 Dose: 50 mg Documented by: Trazodone HCl (Trazodone Hcl 50 Mg Tablet) 50 mg PO BEDTIME PRN PRN Reason: Insomnia Vitamin D (Cholecalciferol (Vitamin D3) 25 Mcg Tablet) 25 mcg PO DAILY [facility] Last Admin: 07/23/21 08:27 Dose: Not Given Documented by: Allergies Allergies Allergy/AdvReac Type Severity Reaction Status Date / Time olanzapine [From ZYPREXA] AdvReac Intermediate RLS Verified 03/09/21 09:37 symptoms atypical antipsychotics AdvReac Severe This class Uncoded 02/06/21 09:37 appears to potentiate RLS/Akathesia Assessment & Plan Assessment & Plan (1) Depression: Qualifiers: Depression Type: unspecified Qualified Code(s): F32.A - Depression, unspecified Status: Acute Code(s): F32.A - Depression, unspecified (2) Substance induced mood disorder: Status: Acute Code(s): F19.94 - Other psychoactive substance use, unspecified with psychoactive substance-induced mood disorder Assessment and Plan: cocaine withdrawal related dysphoria likely played a role here (3) Cocaine use disorder: Status: Acute Code(s): F14.10 - Cocaine abuse, uncomplicated Assessment and Plan: discharge to outpt care per pt preference. pt did not meet criteria for [facility] hospitalization. she was offered hospitalization but declined. I spent ___60___ minutes with the patient and/or on the patient floor today, greater than?50% of which was spent counseling/coordinating care.
--- NOTE | 2021-07-23 15:31 | MHC.CARE ---
Pt declined CV and did not wanted to be psychiatrically admitted to . Dr. Menezes met with Pt who determine if she meets criteria to be involuntarily hospitalized which she did not. Plan for Pt to be discharged with a referral to [facility] and a follow up call from the CARE Team in 2-3 days.
--- NOTE | 2021-07-25 09:48 | MHC.CARE ---
CARE Team speaks with pt as a follow up after discharge.? Pt reports ?doing 75 percent better that I was?, appeared upbeat and positive, demonstrated future oriented thinking, insight, and good judgement.? She reports that yesterday she spoke with someone from [facility] who set up an intake appointment for 08/16/21 with a start date of 08/17/21 or 08/18/21.? She appeared very happy with this.? She stated that she has done outpatient before and was successful in that saying she believed it helped her a lot. Pt reports no cocaine use or alcohol consumption since her discharge, stating that this was an isolated incident while her was away. She advises CARE Team that her medications had been changed, increasing her anti-depressant to the levels it was before being lowered and also mentioned that her lithium dose was increased,? She feels this has been having a positive effect. Pt stated ?I?m feeling good?, she has been taking care of ?Some personal things? that had been in need of attention.? Pt was appreciative of the call for follow up, stated she didn?t need any additional support at this time, and thanked this caller.
== END 2021-07-23 16:38 | disposition home or self-care (01) ==
LOC: HO.ED 14:08 → HO.PM5 07-23 14:15
PROVIDERS: Emergency Medicine Emergency Medical Services; Emergency Provider Emergency Medicine; PCP Internal Medicine
DX: F14.10 Cocaine abuse, uncomplicated (principal); F19.94 Other psychoactive substance use, unspecified with psychoactive substance-induced mood disorder; F33.1 Major depressive disorder, recurrent, moderate; F41.1 Generalized anxiety disorder; F43.0 Acute stress reaction; Z20.822 Contact with and (suspected) exposure to COVID-19; Z79.899 Other long term (current) drug therapy
CPT/HCPCS: 36415; 80048; 80076; 80178; 80307; 81001; 82077; 84443; 85025; 87635; 93005; 99284; 99285

== ENCOUNTER 2021-09-17 19:39 | Inpatient (IN) | payer MEDICARE, MEDICAID, SELFPAY ==
[2021-09-17 19:43] VITALS: BP 90/43; PULSE 81; RESP 16; TEMP 36.8; O2SAT 94; BMI 15.5
--- NOTE | 2021-09-17 20:41 | ED_ITS ---
HPI - Psych General Chief Complaint: Psychiatric Symptoms Stated Complaint: psych eval Time Seen by Provider: 09/17/21 20:41 Source: patient Mode of arrival: ambulatory Limitations: no limitations History of Present Illness HPI Narrative: 60 year old female past medical history significant for cocaine use disorder, hypothyroidism, bipolar disorder, COPD, restless legs syndrome presenting to the emergency department with worsening depression, and feeling hopeless x4 months and worsening. She tells me she has been struggling since she lost her mom in May 2021. She tells me it got worse over the pasta month, on Sep 03 she decided to stop taking all medications, including her psych and thyroid meds. Denies visual, auditory and tactile hallucinations. Denies alcohol use. Admits to marijuana and tobacco use. Denies SI and HI, tells me she just feels hopeless and with little energy. Her is at the bedside. MD complaint: feels depressed Onset (ago): month(s) (4) Duration: constant History of same: Yes Relieving factors: none Exacerbating factors: none Associated psychiatric symptoms: depression and racing thoughts Associated symptoms: denies other symptoms Treatments prior to arrival: none Related Data Home Medications Medication Instructions Recorded Confirmed cholecalciferol (vitamin D3) 25 25 mcg PO DAILY 06/15/20 08/28/21 mcg (1,000 unit) tablet fluticasone 113 mcg-salmeterol 14 1 puff PO BID 06/15/20 08/28/21 mcg/actuation breath activated powdr ropinirole 0.5 mg tablet 0.5 mg PO BEDTIME 06/15/20 08/28/21 pramipexole 0.5 mg tablet 0.5 mg PO BEDTIME 07/21/20 08/28/21 atorvastatin 20 mg tablet 1 tab PO DAILY 07/21/21 08/28/21 citalopram 20 mg tablet 1 tab PO DAILY 07/21/21 08/28/21 pramipexole 0.25 mg tablet 1 tab PO BID 07/21/21 08/28/21 pregabalin 50 mg capsule (Lyrica) 1 cap PO 5XD 07/21/21 08/28/21 Previous Rx's Medication Instructions Recorded nystatin 100,000 unit/mL oral 100,000 unit PO DAILY PRN 15 Days 05/28/20 suspension #250 ml famotidine 20 mg tablet 20 mg PO DAILY #90 tab 12/17/20 tramadol 50 mg tablet 50 mg PO Q6H PRN 7 Days #28 tab 01/06/21 albuterol sulfate 90 mcg/actuation 2 puff INHALATION Q4-6H PRN 90 02/05/21 aerosol inhaler (Ventolin HFA) Days #3 ea levothyroxine 75 mcg tablet 75 mcg PO DAILY #30 tab 03/30/21 lorazepam 0.5 mg tablet 0.5 mg PO BID PRN 28 Days #56 tab 06/16/21 lithium carbonate 450 mg 450 mg PO DAILY #30 cap 08/10/21 tablet,extended release azithromycin 250 mg tablet See Rx Instructions PO .COMPLEX #6 08/28/21 tab Lyrica 50 mg capsule (pregabalin) 50 mg PO 5XD #150 cap NS 09/09/21 Allergies Allergy/AdvReac Type Severity Reaction Status Date / Time olanzapine [From ZYPREXA] AdvReac Intermediate RLS Verified 08/28/21 10:29 symptoms atypical antipsychotics AdvReac Severe This class Uncoded 02/06/21 09:37 appears to potentiate RLS/Akathesia Review of Systems Review of Systems: Constitutional : No Fever, No Chills ENT/Mouth : No Ear Pain, No Nasal Congestion, No sore throat Eyes: No Eye Pain, No Swelling, No Redness Cardiovascular : No Chest Pain, No SOB Respiratory : No Cough, No Sputum, No Dyspnea Gastrointestinal : No Nausea, No Vomiting, No Diarrhea, No Hematochezia, No Melena Genitourinary : No Dysuria, No Urinary Frequency, No Hematuria Musculoskeletal : No Myalgias Skin : No Skin Lesions, No rash Neuro : No Weakness, No Numbness, No Paresthesias, No Dizziness, No Headache Psych : positive Anxiety, positive Depression, No SI/HI All other systems reviewed and are negative Yes all other systems are reviewed and are negative [facility] Past Medical History Attestation statement: The following information was validated with the patient. Source: old records reviewed and nursing notes reviewed Medical History Bipolar II disorder COPD (chronic obstructive pulmonary disease) HLD (hyperlipidemia) Hypothyroidism Osteoporosis RLS (restless legs syndrome) Surgical History H/O: hysterectomy Family History Family History Mother No problems noted. Father No problems noted. Son Substance use disorder Social History Social History Housing: House Alcohol intake: never Patient Tobacco Use Status: Current everyday Tobacco user Tobacco use type: Cigarette Cigarettes Per Day: 5 e-Cigarette/Vaping Use: Never Used Second Hand Smoke Exposure: No Advance Directives: No Advance Directives Information Provided: Yes Patient : No service: No Current occupational status: employed Sexual orientation: Straight/Heterosexual Physical Exam Vital Signs: Vital Signs: Last Vital Signs Temp 98.3 F 09/17/21 19:43 Pulse 81 09/17/21 19:43 Resp 16 09/17/21 19:43 BP 90/43 L 09/17/21 19:43 Pulse Ox 94 09/17/21 19:43 BMI result Body Mass Index 15.5 VSS Appearance: Alert.? Oriented X3.? No acute distress.?+Patient tearful. Slow speech. Linear & logical though process and Head: Normocephalic, atraumatic, no step-offs or deformities Eyes: Pupils equal, round and reactive to light.? ENT: Pharynx normal.? Neck: Normal inspection.? Neck supple.? CVS: Normal heart rate and rhythm.? Pulses normal.? Respiratory: No respiratory distress.? Breath sounds normal.? Abdomen: Soft and nontender.? Skin: Skin warm and dry.? Normal skin color.? Normal skin turgor.? Extremities: No lower extremity edema.? No calf ttp. 5/5 strength to bilateral upper and lower extremities Back: No midline tenderness, no C-spine tenderness, full range of motion, no CVA tenderness bilaterally Neuro: Oriented X 3.? No motor deficit.? No sensory deficit. CN 2-12 intact Course Reevaluation(s) Reevaluation #1: CBC wnl, chemistry with a slighly elevated BUN will orally hydrate patient. COVID negative. UA and Tox pending TSH pending. Time: 22:31 Reevaluation #2: TSH and T4 within normal limits. A med reconciliation has been put in. UA and urine tox pending. M5 will obtain knees up stairs. At this time patient has been medically cleared. Patient will be going upstairs for admission. Comfortable with plan. Time: 23:01 MDM - Psych MDM Narrative Medical decision making narrative: 2140 60 yo F pmhx hypothyroidism, bipolar d/o, substance abuse, RLS, COPD presents to ED with depression X4 months worsening over the past month. PE benign Plan- basic labs, urine, HALL, COVID Medical Records Attestation: I reviewed the patient's medical records. Lab Data Attestation: I reviewed the patient's lab results. Result diagrams: 09/17/21 21:56 09/17/21 21:56 Labs: Lab Results 09/17/21 09/17/21 09/17/21 Range/Units 21:28 21:56 21:56 WBC 9.7 (4.8-10.8) X10*3/uL RBC 4.04 L (4.20-5.50) X10*6/uL Hgb 13.0 (12.0-16.0) g/dl Hct 38.1 (37.0-47.0) % MCV 94.3 (80.0-98.0) fL MCH 32.2 (27.0-33.0) pg MCHC 34.1 (31.0-35.0) g/dl RDW 13.1 (11.0-16.0) % Plt Count 311 (160-400) X10*3/uL MPV 11.2 (9.4-12.3) fL Immature Gran % (Auto) 0.2 (0.0-0.4) % Neut % (Auto) 53.0 (45-73) % Lymph % (Auto) 35.6 (20-40) % Reeves % (Auto) 8.8 (2-11) % Eos % (Auto) 2.0 (0-4) % Baso % (Auto) 0.4 (0-2) % Lymph # (Auto) 3.5 (1.2-4.9) X10*3/uL [place]eves # (Auto) 0.9 (0.1-1.2) X10*3/uL Eos # (Auto) 0.2 (0.0-0.4) X10*3/uL Baso # (Auto) 0.0 (0.0-0.2) X10*3/uL Abs Immat Gran (auto) 0.02 (0.00-0.03) X10*3/uL Absolute Neuts (auto) 5.1 (2.0-8.3) x10*3/uL Absolute Nucleated RBC 0.000 (0.0-0.012) X10*3/uL Nucleated RBC % (auto) 0.0 (0.0-0.2) /100WBC Sodium 141 (135-145) mmol/L Potassium 3.8 (3.3-5.1) mmol/L Chloride 97 (96-108) mmol/L Carbon Dioxide 35 H (22-29) mmol/L Anion Gap 13 (12-20) BUN 21 H D (9-16) mg/dL Creatinine 0.86 (0.5-1.4) mg/dL Estim Creat Clear Calc 43.4 Estimated GFR > 60 Random Glucose 132 H (60-115) mg/dL Calcium 9.4 (8.4-10.2) mg/dL Total Bilirubin 0.3 (0.0-1.0) mg/dL AST 40 H D (5-31) U/L ALT 28 (0-31) U/L Alkaline Phosphatase 120 H (39-117) U/L Total Protein 6.8 (6.5-8.0) g/dL Albumin 4.2 (3.5-5.0) g/dL TSH 3.04 (0.32-4.0) uIU/mL Free T4 1.01 (0.71-1.85) ng/dL Ethyl Alcohol mg/dL COVID-19 ([facility]) Negative (Negative) COVID-19 Clin Com See Note 09/17/21 Range/Units 21:56 WBC (4.8-10.8) X10*3/uL RBC (4.20-5.50) X10*6/uL Hgb (12.0-16.0) g/dl Hct (37.0-47.0) % MCV (80.0-98.0) fL MCH (27.0-33.0) pg MCHC (31.0-35.0) g/dl RDW (11.0-16.0) % Plt Count (160-400) X10*3/uL MPV (9.4-12.3) fL Immature Gran % (Auto) (0.0-0.4) % Neut % (Auto) (45-73) % Lymph % (Auto) (20-40) % Reeves % (Auto) (2-11) % Eos % (Auto) (0-4) % Baso % (Auto) (0-2) % Lymph # (Auto) (1.2-4.9) X10*3/uL Reeves # (Auto) (0.1-1.2) X10*3/uL Eos # (Auto) (0.0-0.4) X10*3/uL Baso # (Auto) (0.0-0.2) X10*3/uL Abs Immat Gran (auto) (0.00-0.03) X10*3/uL Absolute Neuts (auto) (2.0-8.3) x10*3/uL Absolute Nucleated RBC (0.0-0.012) X10*3/uL Nucleated RBC % (auto) (0.0-0.2) /100WBC Sodium (135-145) mmol/L Potassium (3.3-5.1) mmol/L Chloride (96-108) mmol/L Carbon Dioxide (22-29) mmol/L Anion Gap (12-20) BUN (9-16) mg/dL Creatinine (0.5-1.4) mg/dL Estim Creat Clear Calc Estimated GFR Random Glucose (60-115) mg/dL Calcium (8.4-10.2) mg/dL Total Bilirubin (0.0-1.0) mg/dL AST (5-31) U/L ALT (0-31) U/L Alkaline Phosphatase (39-117) U/L Total Protein (6.5-8.0) g/dL Albumin (3.5-5.0) g/dL TSH (0.32-4.0) uIU/mL Free T4 (0.71-1.85) ng/dL Ethyl Alcohol < 10 mg/dL COVID-19 ([facility]) (Negative) COVID-19 Clin Com Critical Care Time Critical Care Time Critical Care Time: No Discharge Plan Discharge Clinical Impression: Depression, Complicated grieving Patient Disposition: Still a Patient Prescriptions: No Action nystatin 100,000 unit/mL suspension 100,000 unit PO DAILY PRN (Reason: 5 ml . po , swish and swallow bid) 15 Days Qty: 250 1RF Rx Instructions: administer 1/2 of dose in each side of the mouth famotidine 20 mg tablet 20 mg PO DAILY Qty: 90 8RF albuterol sulfate [Ventolin HFA] 90 mcg/actuation HFA aerosol inhaler 2 puff inhalation Q4-6H PRN (Reason: shortness of breath or wheezing) 90 Days Qty: 3 2RF levothyroxine 75 mcg tablet 75 mcg PO DAILY Qty: 30 11RF lorazepam 0.5 mg tablet 0.5 mg PO BID PRN (Reason: anxiety) 28 Days Qty: 56 5RF lithium carbonate 450 mg tablet extended release 450 mg PO DAILY Qty: 30 0RF pregabalin [Lyrica] 50 mg capsule 50 mg PO 5XD Qty: 150 0RF Rx Instructions: Pt is unable to tolerate generic pregabalin. Brand name only. ropinirole 0.5 mg tablet 0.5 mg PO BEDTIME 0RF cholecalciferol (vitamin D3) 25 mcg (1,000 unit) tablet 25 mcg PO DAILY 0RF fluticasone propion-salmeterol 113-14 mcg/actuation aerosol powdr breath activated 1 puff PO BID 0RF atorvastatin 20 mg tablet 1 tab PO DAILY 0RF citalopram 20 mg tablet 1 tab PO DAILY 0RF pregabalin [Lyrica] 50 mg capsule 1 cap PO 5XD 0RF pramipexole 0.25 mg tablet 1 tab PO BID 0RF azithromycin 250 mg tablet See Rx Instructions PO .COMPLEX Qty: 6 0RF Rx Instructions: take 500 mg today (day 1), then 250 mg for 4 days (days 2-5) PO pramipexole 0.5 mg tablet 0.5 mg PO BEDTIME 0RF tramadol 50 mg tablet 50 mg PO Q6H PRN (Reason: pain) 7 Days Qty: 28 0RF
[2021-09-17 22:03] LABS: MANUAL DIFF FLAG NO
[2021-09-17 22:17] LABS: Basophils Percent Auto 0.4 % (0-2); Eosinophils Absolute Auto 0.2 X10*3/uL (0.0-0.4); Hematocrit 38.1 % (37.0-47.0); Imm Gran Abs Auto 0.02 X10*3/uL (0.00-0.03); Imm Gran Pct Auto 0.2 % (0.0-0.4); Lymphocytes Absolute Auto 3.5 X10*3/uL (1.2-4.9); Lymphocytes Percent Auto 35.6 % (20-40); Mean Corpuscular HGB Conc 34.1 g/dl (31.0-35.0); Mean Corpuscular Hemoglobin 32.2 pg (27.0-33.0); Mean Corpuscular Volume 94.3 fL (80.0-98.0); Mean Platelet Volume 11.2 fL (9.4-12.3); Monocytes Absolute Auto 0.9 X10*3/uL (0.1-1.2); Monocytes Percent Auto 8.8 % (2-11); Neutrophils Absolute Auto 5.1 x10*3/uL (2.0-8.3); Platelet Count 311 X10*3/uL (160-400); Red Blood Count 4.04 X10*6/uL (4.20-5.50); Red Cell Distribution Width 13.1 % (11.0-16.0); White Blood Count 9.7 X10*3/uL (4.8-10.8)
[2021-09-17 22:20] LABS: COVID-19 Test Negative (Negative)
[2021-09-17 22:23] LABS: Ethanol < 10 mg/dL
[2021-09-17 22:25] LABS: Alanine Aminotransferase 28 U/L (0-31); Albumin Level 4.2 g/dL (3.5-5.0); Alkaline Phosphatase 120 U/L (39-117); Anion Gap 13 (12-20); Aspartate Amino Transferase 40 U/L (5-31); Bilirubin Total 0.3 mg/dL (0.0-1.0); Blood Urea Nitrogen 21 mg/dL (9-16); Calcium 9.4 mg/dL (8.4-10.2); Carbon Dioxide 35 mmol/L (22-29); Chloride 97 mmol/L (96-108); Creatinine Clr Calc Pharmacy 43.4; Estimated Glomerular Filt Rate > 60; Glucose Random 132 mg/dL (60-115); Potassium 3.8 mmol/L (3.3-5.1); Sodium 141 mmol/L (135-145); Total Protein 6.8 g/dL (6.5-8.0)
[2021-09-17 22:46] LABS: Free T4 (Free Thyroxine) 1.01 ng/dL (0.71-1.85); Thyroid Stimulating Hormone 3.04 uIU/mL (0.32-4.0)
[2021-09-18] MEDS: LORazepam 0.5 MG TABLET PO ×2 (00:08→09:46)
[2021-09-18 00:22] VITALS: BP 126/71; PULSE 72; TEMP 36.9; O2SAT 95
--- NOTE | 2021-09-18 00:44 | PC.ADMIT ---
Patient is a 60 year old women that lives with her and son. She came into the ER at [facility] on 09/17/21 for concerns by her family that she is mentally decompressing. Has a past diagnosis of bipolar disorder and depression. Labs were drawn in ER results pending Covid-19 negative. Tox screen negative ETOH was < 10 BP in ER was low 90/43 on arrival to at 00:05 her BP is 126/71. Her affect is very anxious and was unwilling to participate in the admission process I don't want to do that, I'm not leaving this room just want to sleep She was asking for something to help me relax Order for 0.5mg Ativan was given. She is nonsensical in her speech and is refusing to answer questions. She is not currently reporting any desire to hurt herself or others and said she would be safe on the unit. She is curled up in a ball position in her bed and would not use the blankets provided.
[2021-09-18 05:02] VITALS: BP 127/70; PULSE 72; TEMP 36.8; O2SAT 96
[2021-09-18] MEDS: Lithium Carbonate ER 450 MG TABLET.ER PO (08:35)
[2021-09-18] MEDS: Atorvastatin Calcium 20 MG TABLET PO (08:36)
[2021-09-18] MEDS: Levothyroxine Sodium 75 MCG TABLET PO (08:36)
[2021-09-18] MEDS: Pramipexole Di-HCL 0.25 MG TABLET PO ×2 (09:07→21:08)
[2021-09-18] MEDS: Pregabalin 50 MG CAPSULE PO ×4 (09:07→21:08)
[2021-09-18 09:10] LABS: Cholesterol 201 mg/dL; HDL Cholesterol 47 mg/dL; LDL Cholesterol Calculated 140 mg/dl; Magnesium 1.9 mg/dL (1.6-2.6); Triglycerides 71 mg/dL
[2021-09-18 09:13] LABS: Estimated Average Glucose 126 mg/dL
[2021-09-18 10:09] LABS: Vitamin B12 577 pg/mL (200-900)
--- NOTE | 2021-09-18 10:49 | P.HPPS_ITS ---
[facility] Date of Service: 09/18/21 Chief Complaint: Bipolar Depression, Med Non-Adherence Sources of Information: patient interviewed, chart reviewed and crisis/core team assessment reviewed HPI Subjective Notes: Arboleda Warning and Conditional Voluntary Narrative: Patient is a 60-year-old female with a history of Bipolar Type 2 disorder (possibly OCD) who presents for worsening depression in the face of her mother's this past May 2021 and going off her medications a few weeks ago. Patient reports that this past summer, on current medication regimen she was doing pretty good And was enjoying her life, working and functioning well. Her mother Got ill and declined this fall and eventually this past May which has been devastating Zohreh for patient. Patient said that her son 5 years ago and was her mother that help to get through that time. Over the subsequent months patient sadness continued and worsened. She and her and other family went on a floor to vacation this past early August which she s aid was a little helpful for her mood however upon return she got a sinus infection which last for 10 days and exacerbated her depressed feelings. She says I just lost hope And stopped taking all her medications around September 03. She felt they were not working that well anyway and she was worried about her liver. Patient began to develop thoughts about wishing she were and said I just had no desire to be here; However patient said she never really had any suicidal thoughts or plans or intention. Patient denies any alcohol or other substance abuse other than intermittent cannabis. She wants to get back on her medication regimen which she says has been overall helpful however she agrees to a mild increase in lithium to help support her through this challenging time. Patient also has had some success with TMS which she is open to considering. Patient denies any SI, HI or AVH. Past Psychiatric History: see CARE team note Medical Evaluation Reviewed: Yes [facility] Medical History Bipolar II disorder COPD (chronic obstructive pulmonary disease) HLD (hyperlipidemia) Hypothyroidism Osteoporosis RLS (restless legs syndrome) Surgical History H/O: hysterectomy Family History: Deferred Social History: Lives with Has 1 son who is engaged; other son 5 years ago Mother May 2021 which is been especially difficult Patient has worked most of her life; she enjoys work however she finds that she takes on too much which is Destabilizing for Substance History: Patient said she used cocaine once; denies any current substance or alcohol abuse; does smoke cannabis intermittently Trauma History: Deferred for now Diagnostics Vital Signs (24Hr): Vital Signs - 24 hr 09/17/21 19:43 09/18/21 00:22 09/18/21 05:02 Temperature 98.3 F 98.4 F 98.2 F Pulse Rate 81 72 72 Respiratory Rate 16 Blood Pressure 90/43 L 126/71 127/70 Pulse Oximetry 94 95 96 BMI result Verdana 4 Body Mass Index Verdana 4 15.5 Verdana 4 Verdana 4 Labs Results: 09/17/21 21:56 09/17/21 21:56 Labs: Laboratory Results - last 48 hr 09/17/21 09/17/21 09/17/21 21:28 21:56 21:56 WBC 9.7 RBC 4.04 L Hgb 13.0 Hct 38.1 MCV 94.3 MCH 32.2 MCHC 34.1 RDW 13.1 Plt Count 311 MPV 11.2 Immature Gran % (Auto) 0.2 Neut % (Auto) 53.0 Lymph % (Auto) 35.6 [place] % (Auto) 8.8 Eos % (Auto) 2.0 Baso % (Auto) 0.4 Lymph # (Auto) 3.5 [place] # (Auto) 0.9 Eos # (Auto) 0.2 Baso # (Auto) 0.0 Abs Immat Gran (auto) 0.02 Absolute Neuts (auto) 5.1 Absolute Nucleated RBC 0.000 Nucleated RBC % (auto) 0.0 Sodium 141 Potassium 3.8 Chloride 97 Carbon Dioxide 35 H Anion Gap 13 BUN 21 H D Creatinine 0.86 Estim Creat Clear Calc 43.4 Estimated GFR > 60 Random Glucose 132 H Estimat Average Glucose Hemoglobin A1c % Calcium 9.4 Magnesium Total Bilirubin 0.3 AST 40 H D ALT 28 Alkaline Phosphatase 120 H Total Protein 6.8 Albumin 4.2 Triglycerides Cholesterol LDL Cholesterol, Calc HDL Cholesterol Vitamin B12 Folate TSH 3.04 Free T4 1.01 Ethyl Alcohol COVID-19 ([facility]) Negative COVID-19 Clin Com See Note 09/17/21 09/18/21 09/18/21 21:56 08:33 08:33 WBC RBC Hgb Hct MCV MCH MCHC RDW Plt Count MPV Immature Gran % (Auto) Neut % (Auto) Lymph % (Auto) [place] % (Auto) Eos % (Auto) Baso % (Auto) Lymph # (Auto) [place] # (Auto) Eos # (Auto) Baso # (Auto) Abs Immat Gran (auto) Absolute Neuts (auto) Absolute Nucleated RBC Nucleated RBC % (auto) Sodium Potassium Chloride Carbon Dioxide Anion Gap BUN Creatinine Estim Creat Clear Calc Estimated GFR Random Glucose Estimat Average Glucose 126 Hemoglobin A1c % 6.0 Calcium Magnesium 1.9 Total Bilirubin AST ALT Alkaline Phosphatase Total Protein Albumin Triglycerides 71 Cholesterol 201 LDL Cholesterol, Calc 140 HDL Cholesterol 47 Vitamin B12 Folate TSH Free T4 Ethyl Alcohol < 10 COVID-19 ([facility]) [employer] 09/18/21 08:33 WBC RBC Hgb Hct MCV MCH MCHC RDW Plt Count MPV Immature Gran % (Auto) Neut % (Auto) Lymph % (Auto) [place] % (Auto) Eos % (Auto) Baso % (Auto) Lymph # (Auto) [place] # (Auto) Eos # (Auto) Baso # (Auto) Abs Immat Gran (auto) Absolute Neuts (auto) Absolute Nucleated RBC Nucleated RBC % (auto) Sodium Potassium Chloride Carbon Dioxide Anion Gap BUN Creatinine Estim Creat Clear Calc Estimated GFR Random Glucose Estimat Average Glucose Hemoglobin A1c % Calcium Magnesium Total Bilirubin AST ALT Alkaline Phosphatase Total Protein Albumin Triglycerides Cholesterol LDL Cholesterol, Calc HDL Cholesterol Vitamin B12 577 Folate 7.0 TSH Free T4 Ethyl Alcohol COVID-19 ([facility]) COVID-19 [employer] Meds/Allergies Meds Home Medications Acetaminophen (Acetaminophen 325 Mg Tablet) 650 mg PO Q6H PRN PRN Reason: Headache/Pain Mild Scale (1-3) Al Hydroxide/Mg Hydroxide (Magnesium Hydrox/Alum Hydrox 30 Ml Oral.Susp) 30 ml PO Q6H PRN PRN Reason: Heartburn/Nausea Albuterol Sulfate (Albuterol Sulfate 90 Mcg 8 Gm Inhaler) 2 puff INHALE RQ6H PRN PRN Reason: asthma Atorvastatin Calcium (Atorvastatin Calcium 20 Mg Tablet) 20 mg PO DAILY LORI Last Admin: 09/18/21 08:36 Dose: 20 mg Documented by: Hydroxyzine HCl (Hydroxyzine Hcl 25 Mg Tablet) 25 mg PO Q6H PRN PRN Reason: Anxiety Last Admin: 09/18/21 12:29 Dose: 25 mg Documented by: Levothyroxine Sodium (Levothyroxine Sodium 75 Mcg Tablet) 75 mcg PO DAILY@0600 [facility] Last Admin: 09/18/21 08:36 Dose: 75 mcg Documented by: [place] Carbonate ([place] Carbonate Er 450 Mg Tablet.Er) 450 mg PO DAILY [facility] Last Admin: 09/18/21 08:35 Dose: 450 mg Documented by: Lorazepam (Lorazepam 0.5 Mg Tablet) 0.5 mg PO Q8H PRN PRN Reason: anxiety Last Admin: 09/18/21 09:46 Dose: 0.5 mg Documented by: Magnesium Hydroxide (Milk Of Magnesia 30 Ml Oral.Susp) 30 ml PO DAILY PRN PRN Reason: Constipation Pramipexole Dihydrochloride (Pramipexole Di-Hcl 0.25 Mg Tablet) 0.25 mg PO BID [facility] Last Admin: 09/18/21 09:07 Dose: 0.25 mg Documented by: Pregabalin (Pregabalin 50 Mg Capsule) 50 mg PO QID [facility] Last Admin: 09/18/21 12:29 Dose: 50 mg Documented by: Trazodone HCl (Trazodone Hcl 50 Mg Tablet) 50 mg PO BEDTIME PRN PRN Reason: Insomnia Allergies Allergies Allergy/AdvReac Type Severity Reaction Status Date / Time olanzapine [From AdvReac Intermediate RLS Verified 08/28/21 10:29 ZYPREXA] symptoms atypical AdvReac Severe This class Uncoded 02/06/21 09:37 antipsychotics appears to potentiate RLS/Akathesia Mental Status Exam Mental Status Exam Narrative: Pt is alert and oriented; behavior is cooperative, tearful; dressed in hospital gown with unkempt hair but adequate hygiene; mood is described as depressed and affect congruent, downcaste, tearful; minimal eye contact appropriate; Speech is normal rate, volume and prosody and not pressured; psychomotor retardation present; thought process is organized and goal directed; Thought content is on tx; otherwise pertinent to relevant topics and without any delusional content, paranoid ideations or grandiosity; denies any SI/HI. There is no evidence of perceptual disturbance. Patients insight and judgment are impaired. Assessment & Plan Assessment & Plan (1) Bipolar II disorder: Status: Acute Code(s): F31.81 - Bipolar II disorder (2) COPD (chronic obstructive pulmonary disease): Status: Acute Code(s): J44.9 - Chronic obstructive pulmonary disease, unspecified (3) HLD (hyperlipidemia): Status: Acute Code(s): E78.5 - Hyperlipidemia, unspecified (4) RLS (restless legs syndrome): Status: Acute Code(s): G25.81 - Restless legs syndrome (5) Hypothyroidism: Status: Acute Code(s): E03.9 - Hypothyroidism, unspecified (6) Complicated grieving: Status: Acute Code(s): F43.21 - Adjustment disorder with depressed mood Plan Patient is a 60-year-old female with a history of Bipolar Type 2 disorder (possibly OCD) who presents for worsening depression in the face of her mother's this past May 2021 and going off her medications a few weeks ago. On admission patient's depression is very severe and compromising her ability to fu nction on her own. Patient wants to get back on her current medication regimen which she says has been helpful in the past. She agrees to mild increase in lithium since she has become overwhelmed with sadness and depression beyond normal grieving. Patient also wants to get it therapist as her current therapist has been very unreliable in getting back to her and she feels the need to process her feelings about her mother's . Patient is experiencing hopeless feelings however denies any active SI, intent or plans. and family are supportive. Plan: CV Q 15 minute checks Will increase lithium ER to about 600 mg daily (up from 450 mg daily; on current dose patient is depression became overwhelming) Restart levothyroxine Patient on citalopram which is not on formulary Will start escitalopram Reason for continued inpatient stay Substantial Risk for: inability to function and rapid decompensation
[2021-09-18] MEDS: hydrOXYzine HCL 25 MG TABLET PO (12:29)
[2021-09-18] MEDS: Escitalopram Oxalate 5 MG TABLET PO (15:13)
[2021-09-18 18:00] VITALS: BP 94/50; PULSE 65; TEMP 36.6; O2SAT 96
[2021-09-18 19:34] LABS: Amphetamine Screen Urine Not Detected (Not Detect); Barbiturates, Urine Not Detected (Not Detect); Benzodiazepines Screen Urine Not Detected (Not Detect); Cannabinoid Screen Urine POSITIVE (Not Detect); Cocaine Screen Urine Not Detected (Not Detect); Fentanyl, urine Not Detected (Not Detect); Opiate Screen Urine Not Detected (Not Detect); Phencyclidine Screen Urine Not Detected (Not Detect)
[2021-09-18] MEDS: Lithium Carbonate ER 300 MG TABLET.ER 600 MG PO (21:07)
--- NOTE | 2021-09-19 03:07 | P.PNPSI_ITS ---
Subjective Subjective Date of Service: 09/19/21 Reason For Visit: Bipolar Depression, Med Non-Adherence Interim History: Patient seen and discussed with team. Per staff consultant, pt is tearful, depressed, isolating in her room, does not get out of bed. Patient evaluated this morning and upon interview pt says I want to get the fuck out of here. States she feels like she is rotting away. Declined to sign a 3 day notice.? In the milieu, patient is isolative and withdrawn in behavior. She has been restricting, not participating in treatment. She is irritable, agitated when confronted. Medication Compliance: Yes Side effects from medications: No Attending Groups: No Review of Systems Acute medical concerns: No Medical Review of Systems: unchanged Mental Status Exam Mental Status Exam Narrative: Pt is alert and oriented; behavior is cooperative, tearful; dressed in hospital gown with unkempt hair but adequate hygiene; mood is described as depressed and affect congruent, irritable; minimal eye contact appropriate; Speech is normal rate, volume and prosody and not pressured;? psychomotor retardation present; thought process is ruminative; Thought content is on discharge; denies any SI/SIB/HI. There is no evidence of perceptual disturbance. Patients insight and judgment are impaired. Diagnostics Vital Signs (24Hr): Vital Signs - 24 hr 09/20/21 05:52 09/20/21 20:40 Temperature 97.8 F 97.9 F Pulse Rate 69 56 Respiratory Rate 16 Blood Pressure 117/72 128/60 Pulse Oximetry 97 94 BMI result [place] 4 Body Mass Index Ver[place]ana 4 15.5 Ver[place] 4 Ver[place] 4 Labs Results: 09/17/21 21:56 09/17/21 21:56 Labs: Laboratory Results - last 48 hr 09/19/21 09:12 Total Bilirubin 0.6 Direct Bilirubin < 0.2 AST 20 D ALT 19 Alkaline Phosphatase 84 D Total Protein 5.9 L Albumin 3.6 Medications Medications Current Medications Acetaminophen (Acetaminophen 325 Mg Tablet) 650 mg PO Q6H PRN PRN Reason: Headache/Pain Mild Scale (1-3) Al Hydroxide/Mg Hydroxide (Magnesium Hydrox/Alum Hydrox 30 Ml Oral.Susp) 30 ml PO Q6H PRN PRN Reason: Heartburn/Nausea Albuterol Sulfate (Albuterol Sulfate 90 Mcg 8 Gm Inhaler) 2 puff INHALE RQ6H PRN PRN Reason: asthma Atorvastatin Calcium (Atorvastatin Calcium 20 Mg Tablet) 20 mg PO DAILY [facility] Last Admin: 09/20/21 08:53 Dose: 20 mg Documented by: Escitalopram Oxalate (Escitalopram Oxalate 10 Mg Tablet) 10 mg PO DAILY [facility] Last Admin: 09/20/21 08:53 Dose: 10 mg Documented by: Hydroxyzine HCl (Hydroxyzine Hcl 25 Mg Tablet) 25 mg PO Q6H PRN PRN Reason: Anxiety Last Admin: 09/20/21 20:42 Dose: 25 mg Documented by: Levothyroxine Sodium (Levothyroxine Sodium 75 Mcg Tablet) 75 mcg PO DAILY@0600 [facility] Last Admin: 09/20/21 06:32 Dose: 75 mcg Documented by: [place] Carbonate ([place] Carbonate Er 300 Mg Tablet.Er) 600 mg PO BEDTIME [facility] Last Admin: 09/20/21 20:42 Dose: 600 mg Documented by: Lorazepam (Lorazepam 0.5 Mg Tablet) 0.5 mg PO Q8H PRN PRN Reason: anxiety Last Admin: 09/20/21 16:35 Dose: 0.5 mg Documented by: Magnesium Hydroxide (Milk Of Magnesia 30 Ml Oral.Susp) 30 ml PO DAILY PRN PRN Reason: Constipation Pramipexole Dihydrochloride (Pramipexole Di-Hcl 0.25 Mg Tablet) 0.25 mg PO BID [facility] Last Admin: 09/20/21 20:42 Dose: 0.25 mg Documented by: Pregabalin (Pregabalin 50 Mg Capsule) 50 mg PO QID [facility] Last Admin: 09/20/21 20:42 Dose: 50 mg Documented by: Trazodone HCl (Trazodone Hcl 50 Mg Tablet) 50 mg PO BEDTIME PRN PRN Reason: Insomnia Allergies Allergies Allergy/AdvReac Type Severity Reaction Status Date / Time olanzapine [From AdvReac Intermediate RLS Verified 08/28/21 10:29 ZYPREXA] symptoms atypical AdvReac Severe This class Uncoded 02/06/21 09:37 antipsychotics appears to potentiate RLS/Akathesia Assessment & Plan Assessment & Plan (1) Bipolar II disorder: Status: Acute Code(s): F31.81 - Bipolar II disorder (2) COPD (chronic obstructive pulmonary disease): Status: Acute Code(s): J44.9 - Chronic obstructive pulmonary disease, unspecified (3) HLD (hyperlipidemia): Status: Acute Code(s): E78.5 - Hyperlipidemia, unspecified (4) RLS (restless legs syndrome): Status: Acute Code(s): G25.81 - Restless legs syndrome (5) Hypothyroidism: Status: Acute Code(s): E03.9 - Hypothyroidism, unspecified (6) Complicated grieving: Status: Acute Code(s): F43.21 - Adjustment disorder with depressed mood Plan Patient is a 60-year-old female with a history of Bipolar Type 2 disorder (possibly OCD) who presents for worsening depression in the face of her mother's this past May 2021 and going off her medications a few weeks ago. On admission patient's depression is very severe and compromising her ability to function on her own. Patient wants to get back on her current medication regimen which she says has been helpful in the past. She agrees to mild increase in lithium since she has become overwhelmed with sadness and depression beyond normal grieving. Patient also wants to get it therapist as her current therapist has been very unreliable in getting back to her and she feels the need to process her feelings about her mother's . Patient is experiencing hopeless feelings however denies any active SI, intent or plans. and family are supportive. Plan: CV Q 15 minute checks Will increase lithium ER to about 600 mg daily (up from 450 mg daily; on current dose patient is depression became overwhelming) Restart levothyroxine Patient on citalopram which is not on formulary Will start escitalopram 09/19: Pt appears agitated, withdrawn, declined to participate in clinical interview I spent minutes with the patient and/or on the patient floor today, greater than?50% of which was spent counseling/coordinating care. Patient educated on: medication risk/benefits and therapeutic strategies Reason for contiued inpatient stay Substantial Risk for: rapid decompensation and med/psych decompensation
[2021-09-19 06:00] VITALS: BP 117/58; PULSE 63; TEMP 37.1; O2SAT 95
[2021-09-19] MEDS: Levothyroxine Sodium 75 MCG TABLET PO (06:26)
[2021-09-19] MEDS: Pregabalin 50 MG CAPSULE PO ×4 (09:09→20:26)
[2021-09-19] MEDS: Escitalopram Oxalate 10 MG TABLET PO (09:09)
[2021-09-19] MEDS: Atorvastatin Calcium 20 MG TABLET PO (09:09)
[2021-09-19] MEDS: Pramipexole Di-HCL 0.25 MG TABLET PO ×2 (09:09→20:25)
[2021-09-19 09:59] LABS: Alanine Aminotransferase 19 U/L (0-31); Albumin Level 3.6 g/dL (3.5-5.0); Alkaline Phosphatase 84 U/L (39-117); Aspartate Amino Transferase 20 U/L (5-31); Bilirubin Direct < 0.2 mg/dL (0.0-0.5); Bilirubin Total 0.6 mg/dL (0.0-1.0); Total Protein 5.9 g/dL (6.5-8.0)
[2021-09-19] MEDS: LORazepam 0.5 MG TABLET PO (16:46)
[2021-09-19] MEDS: Lithium Carbonate ER 300 MG TABLET.ER 600 MG PO (20:25)
[2021-09-19] MEDS: hydrOXYzine HCL 25 MG TABLET PO (20:40)
[2021-09-20] MEDS: LORazepam 0.5 MG TABLET PO ×2 (04:45→16:35)
[2021-09-20 05:52] VITALS: BP 117/72; PULSE 69; TEMP 36.6; O2SAT 97
[2021-09-20] MEDS: Levothyroxine Sodium 75 MCG TABLET PO (06:32)
[2021-09-20] MEDS: hydrOXYzine HCL 25 MG TABLET PO ×2 (07:00→20:42)
[2021-09-20] MEDS: Atorvastatin Calcium 20 MG TABLET PO (08:53)
[2021-09-20] MEDS: Pramipexole Di-HCL 0.25 MG TABLET PO ×2 (08:53→20:42)
[2021-09-20] MEDS: Escitalopram Oxalate 10 MG TABLET PO (08:53)
[2021-09-20] MEDS: Pregabalin 50 MG CAPSULE PO ×4 (08:53→20:42)
--- NOTE | 2021-09-20 15:53 | HO.PSYCHPN ---
Subjective Subjective Date of Service: 09/20/21 Reason For Visit: Bipolar Depression, Med Non-Adherence Interim History: Patient seen and discussed with team. Per medical staff assistant, pt continues to isolate in her room, refusing to participate in treatment, agitated, restricting. Patient evaluated this morning and upon interview she reports she did eat a cracker and yogurt. She appears irritable, dysphoric, says please leave me alone. In the milieu, patient is isolative in behavior. Medication Compliance: Yes Side effects from medications: No Attending Groups: No Review of Systems Acute medical concerns: No Medical Review of Systems: unchanged Mental Status Exam Mental Status Exam Narrative: Pt is alert and oriented; behavior is cooperative, tearful; dressed in hospital gown with unkempt hair but adequate hygiene; mood is described as depressed and affect congruent, irritable; minimal eye contact appropriate; Speech is normal rate, volume and prosody and not pressured;? psychomotor retardation present; thought process is ruminative; Thought content is on discharge; denies any SI/SIB/HI. There is no evidence of perceptual disturbance. Patients insight and judgment are impaired. Diagnostics Vital Signs (24Hr): Vital Signs - 24 hr 09/20/21 05:52 Temperature 97.8 F Pulse Rate 69 Blood Pressure 117/72 Pulse Oximetry 97 BMI result Body Mass Index 15.5 Labs Results: 09/17/21 21:56 09/17/21 21:56 Labs: Laboratory Results - last 48 hr 09/18/21 09/19/21 18:45 09:12 Total Bilirubin 0.6 Direct Bilirubin < 0.2 AST 20 D ALT 19 Alkaline Phosphatase 84 D Total Protein 5.9 L Albumin 3.6 Urine Opiates Screen Not Detected Urine Fentanyl Screen Not Detected Ur Barbiturates Screen Not Detected Ur Phencyclidine Scrn Not Detected Ur Amphetamines Screen Not Detected U Benzodiazepines Scrn Not Detected Urine Cocaine Screen Not Detected U Marijuana (THC) Screen POSITIVE H Medications Medications Current Medications Acetaminophen (Acetaminophen 325 Mg Tablet) 650 mg PO Q6H PRN PRN Reason: Headache/Pain Mild Scale (1-3) Al Hydroxide/Mg Hydroxide (Magnesium Hydrox/Alum Hydrox 30 Ml Oral.Susp) 30 ml PO Q6H PRN PRN Reason: Heartburn/Nausea Albuterol Sulfate (Albuterol Sulfate 90 Mcg 8 Gm Inhaler) 2 puff INHALE RQ6H PRN PRN Reason: asthma Atorvastatin Calcium (Atorvastatin Calcium 20 Mg Tablet) 20 mg PO DAILY [facility] Last Admin: 09/20/21 08:53 Dose: 20 mg Documented by: Escitalopram Oxalate (Escitalopram Oxalate 10 Mg Tablet) 10 mg PO DAILY [facility] Last Admin: 09/20/21 08:53 Dose: 10 mg Documented by: Hydroxyzine HCl (Hydroxyzine Hcl 25 Mg Tablet) 25 mg PO Q6H PRN PRN Reason: Anxiety Last Admin: 09/20/21 07:00 Dose: 25 mg Documented by: Levothyroxine Sodium (Levothyroxine Sodium 75 Mcg Tablet) 75 mcg PO DAILY@0600 [facility] Last Admin: 09/20/21 06:32 Dose: 75 mcg Documented by: [place] Carbonate ([place] Carbonate Er 300 Mg Tablet.Er) 600 mg PO BEDTIME [facility] Last Admin: 09/19/21 20:25 Dose: 600 mg Documented by: Lorazepam (Lorazepam 0.5 Mg Tablet) 0.5 mg PO Q8H PRN PRN Reason: anxiety Last Admin: 09/20/21 04:45 Dose: 0.5 mg Documented by: Magnesium Hydroxide (Milk Of Magnesia 30 Ml Oral.Susp) 30 ml PO DAILY PRN PRN Reason: Constipation Pramipexole Dihydrochloride (Pramipexole Di-Hcl 0.25 Mg Tablet) 0.25 mg PO BID [facility] Last Admin: 09/20/21 08:53 Dose: 0.25 mg Documented by: Pregabalin (Pregabalin 50 Mg Capsule) 50 mg PO QID [facility] Last Admin: 09/20/21 12:48 Dose: 50 mg Documented by: Trazodone HCl (Trazodone Hcl 50 Mg Tablet) 50 mg PO BEDTIME PRN PRN Reason: Insomnia Allergies Allergies Allergy/AdvReac Type Severity Reaction Status Date / Time olanzapine [From ZYPREXA] AdvReac Intermediate RLS Verified 08/28/21 10:29 symptoms atypical antipsychotics AdvReac Severe This class Uncoded 02/06/21 09:37 appears to potentiate RLS/Akathesia Assessment & Plan Assessment & Plan (1) Bipolar II disorder: Status: Acute Code(s): F31.81 - Bipolar II disorder (2) COPD (chronic obstructive pulmonary disease): Status: Acute Code(s): J44.9 - Chronic obstructive pulmonary disease, unspecified (3) HLD (hyperlipidemia): Status: Acute Code(s): E78.5 - Hyperlipidemia, unspecified (4) RLS (restless legs syndrome): Status: Acute Code(s): G25.81 - Restless legs syndrome (5) Hypothyroidism: Status: Acute Code(s): E03.9 - Hypothyroidism, unspecified (6) Complicated grieving: Status: Acute Code(s): F43.21 - Adjustment disorder with depressed mood Plan Patient is a 60-year-old female with a history of Bipolar Type 2 disorder (possibly OCD) who presents for worsening depression in the face of her mother's this past May 2021 and going off her medications a few weeks ago. On admission patient's depression is very severe and compromising her ability to function on her own. Patient wants to get back on her current medication regimen which she says has been helpful in the past. She agrees to mild increase in lithium since she has become overwhelmed with sadness and depression beyond normal grieving. Patient also wants to get it therapist as her current therapist has been very unreliable in getting back to her and she feels the need to process her feelings about her mother's . Patient is experiencing hopeless feelings however denies any active SI, intent or plans. and family are supportive. Plan: CV Q 15 minute checks Will increase lithium ER to about 600 mg daily (up from 450 mg daily; on current dose patient is depression became overwhelming) Restart levothyroxine Patient on citalopram which is not on formulary Will start escitalopram 09/19: Pt appears agitated, withdrawn, declined to participate in clinical interview 09/18: Pt will continue on lexapro, will monitor for benefit I spent minutes with the patient and/or on the patient floor today, greater than?50% of which was spent counseling/coordinating care. Reason for contiued inpatient stay Substantial Risk for: rapid decompensation and med/psych decompensation
[2021-09-20 20:40] VITALS: BP 128/60; PULSE 56; RESP 16; TEMP 36.6; O2SAT 94
[2021-09-20] MEDS: Lithium Carbonate ER 300 MG TABLET.ER 600 MG PO (20:42)
[2021-09-21] MEDS: LORazepam 0.5 MG TABLET PO ×3 (05:49→20:34)
[2021-09-21] MEDS: Levothyroxine Sodium 75 MCG TABLET PO (05:49)
[2021-09-21 06:00] VITALS: BP 125/80; PULSE 74; RESP 18; TEMP 36.3; O2SAT 98
--- NOTE | 2021-09-21 10:14 | P.PNPSI_ITS ---
Subjective Subjective Date of Service: 09/21/21 Reason For Visit: Bipolar Depression, Med Non-Adherence Interim History: Pt irritable on approach and difficult to engage. Patient is lying in bed with her eyes closed though she is awake. She says that she is not so great but is not willing to elaborate much. She says there is nothing to tell. She says she is having a bad crummy experience on the unit but then tells show card writer to just let it be repeating herself just let it be. Patient made some statements about wanting to discharge but she says I do not know where to...what the fuck does it matter. . . Patient said she does not want talk to show card writer anymore who excused himself but let her know that the goal is to be helpful and that show card writer remains available Compressor Technician later talked to the charge nurse who had a more successful and engaged conversation with patient who shared that she is upset with her feeling abandoned on the unit. However she does not necessarily want to discharge and is interested in ECT. She also reported to charge nurse that she has had TMS in the past which was helpful. Nurse communicated that Patient agrees to more discussion about this with show card writer and also that the family would like a family meeting. Mental Status Exam Mental Status Exam Narrative: Pt is alert and oriented; behavior is not cooperative, lying in bed w/ eyes clos ed, irritable; dressed in hospital gown with unkempt hair; mood is described as not so great and affect irritable; minimal eye contact; Speech is normal rate, but yelling at times; not pressured; psychomotor agitation present;Thought process is mostly goal oriented; thought content is on feeling upset about various issues; won't discuss SI/SIB/HI. There is no evidence of perceptual disturbance. Patients insight and judgment are impaired. Diagnostics Vital Signs (24Hr): Vital Signs - 24 hr 09/20/21 20:40 09/21/21 06:00 Temperature 97.9 F 97.4 F Pulse Rate 56 74 Respiratory Rate 16 18 Blood Pressure 128/60 125/80 Pulse Oximetry 94 98 BMI result [place] 4 Body Mass Index [place] 4 15.5 Ver[place] 4 [place] 4 Labs Results: 09/17/21 21:56 09/17/21 21:56 Medications Medications Current Medications Acetaminophen (Acetaminophen 325 Mg Tablet) 650 mg PO Q6H PRN PRN Reason: Headache/Pain Mild Scale (1-3) Al Hydroxide/Mg Hydroxide (Magnesium Hydrox/Alum Hydrox 30 Ml Oral.Susp) 30 ml PO Q6H PRN PRN Reason: Heartburn/Nausea Albuterol Sulfate (Albuterol Sulfate 90 Mcg 8 Gm Inhaler) 2 puff INHALE RQ6H PRN PRN Reason: asthma Atorvastatin Calcium (Atorvastatin Calcium 20 Mg Tablet) 20 mg PO DAILY [facility] Last Admin: 09/21/21 09:24 Dose: Not Given Documented by: Escitalopram Oxalate (Escitalopram Oxalate 10 Mg Tablet) 10 mg PO DAILY [facility] Last Admin: 09/21/21 09:24 Dose: Not Given Documented by: Hydroxyzine HCl (Hydroxyzine Hcl 25 Mg Tablet) 25 mg PO Q6H PRN PRN Reason: Anxiety Last Admin: 09/20/21 20:42 Dose: 25 mg Documented by: Levothyroxine Sodium (Levothyroxine Sodium 75 Mcg Tablet) 75 mcg PO DAILY@0600 [facility] Last Admin: 09/21/21 05:49 Dose: 75 mcg Documented by: [place] Carbonate ([place] Carbonate Er 300 Mg Tablet.Er) 600 mg PO BEDTIME [facility] Last Admin: 09/20/21 20:42 Dose: 600 mg Documented by: Lorazepam (Lorazepam 0.5 Mg Tablet) 0.5 mg PO Q8H PRN PRN Reason: anxiety Last Admin: 09/21/21 05:49 Dose: 0.5 mg Documented by: Magnesium Hydroxide (Milk Of Magnesia 30 Ml Oral.Susp) 30 ml PO DAILY PRN PRN Reason: Constipation Pramipexole Dihydrochloride (Pramipexole Di-Hcl 0.25 Mg Tablet) 0.25 mg PO BID [facility] Last Admin: 09/21/21 09:25 Dose: Not Given Documented by: Pregabalin (Pregabalin 50 Mg Capsule) 50 mg PO QID [facility] Last Admin: 09/21/21 09:25 Dose: Not Given Documented by: Trazodone HCl (Trazodone Hcl 50 Mg Tablet) 50 mg PO BEDTIME PRN PRN Reason: Insomnia Allergies Allergies Allergy/AdvReac Type Severity Reaction Status Date / Time olanzapine [From AdvReac Intermediate RLS Verified 08/28/21 10:29 ZYPREXA] symptoms atypical AdvReac Severe This class Uncoded 02/06/21 09:37 antipsychotics appears to potentiate RLS/Akathesia Assessment & Plan Assessment & Plan (1) Bipolar II disorder: Status: Acute Code(s): F31.81 - Bipolar II disorder (2) COPD (chronic obstructive pulmonary disease): Status: Acute Code(s): J44.9 - Chronic obstructive pulmonary disease, unspecified (3) HLD (hyperlipidemia): Status: Acute Code(s): E78.5 - Hyperlipidemia, unspecified (4) RLS (restless legs syndrome): Status: Acute Code(s): G25.81 - Restless legs syndrome (5) Hypothyroidism: Status: Acute Code(s): E03.9 - Hypothyroidism, unspecified (6) Complicated grieving: Status: Acute Code(s): F43.21 - Adjustment disorder with depressed mood Plan Patient is a 60-year-old female with a history of Bipolar Type 2 disorder (possibly OCD) who presents for worsening depression in the face of her mother's this past May 2021 and going off her medications a few weeks ago. On admission patient's depression is very severe and compromising her ability to function on her own. Patient wants to get back on her current medication regimen which she says has been helpful in the past. She agrees to mild increase in lithium since she has become overwhelmed with sadness and depression beyond normal grieving. Patient also wants to get it therapist as her current therapist has been very unreliable in getting back to her and she feels the need to process her feelings about her mother's . Patient is experiencing hopeless feelings however denies any active SI, intent or plans. and family are supportive. Patient irritable over the weekend Patient remains irritable today with show card writer not wanting to talk; however she did discuss ECT with charge nurse and is not ready to discharge. Although patient is normally on citalopram in the community and escitalopram was started as a replacement, it is possible that patient could be triggered by escitalopram while lithium is becoming therapeutic, and account for patient's irritable at [facility]. Will DC escitalopram for now Plan: CV Q 15 minute checks lithium ER 600 mg daily (up from 450 mg daily; on current dose patient is depression became overwhelming) Restart levothyroxine DC Escitalopram: Initially started escitalopram; will discontinue for now out of an abundance of caution that this medication may have triggered some irritab ility; Patient on citalopram 20mg in the community, however not on formulary I spent minutes with the patient and/or on the patient floor today, greater than?50% of which was spent counseling/coordinating care. Reason for contiued inpatient stay Substantial Risk for: rapid decompensation
[2021-09-21] MEDS: Pregabalin 50 MG CAPSULE PO ×3 (12:28→20:35)
[2021-09-21] MEDS: hydrOXYzine HCL 25 MG TABLET PO (17:16)
[2021-09-21] MEDS: Pramipexole Di-HCL 0.25 MG TABLET PO (18:58)
[2021-09-21 20:20] VITALS: BP 121/90; PULSE 90; TEMP 37.1; O2SAT 94
[2021-09-21] MEDS: Lithium Carbonate ER 300 MG TABLET.ER 600 MG PO (20:34)
[2021-09-21] MEDS: Pramipexole Di-HCL 0.25 MG TABLET 0.75 MG PO (21:31)
[2021-09-22] MEDS: Levothyroxine Sodium 75 MCG TABLET PO (05:33)
[2021-09-22] MEDS: LORazepam 0.5 MG TABLET PO ×3 (05:33→18:51)
[2021-09-22 08:25] VITALS: BP 112/56; PULSE 64; RESP 16; TEMP 37.1; O2SAT 93
[2021-09-22] MEDS: Pregabalin 50 MG CAPSULE PO ×4 (08:55→21:33)
[2021-09-22] MEDS: Atorvastatin Calcium 20 MG TABLET PO (08:55)
[2021-09-22] MEDS: Pramipexole Di-HCL 0.25 MG TABLET PO ×2 (08:55→16:20)
--- NOTE | 2021-09-22 10:31 | HO.PSYCHPN ---
Subjective Subjective Date of Service: 09/22/21 Reason For Visit: Bipolar Depression, Med Non-Adherence Interim History: Patient reports that she has still depressed and still very anxious however she is no longer irritable and apologizes for or her interaction yesterday. Commissioned Police Officer asked how much of it had to do with her feelings about her at which patient became very tearful and said she did not want to talk about it other than to say he was part of it but want to leave it at that. Commissioned Police Officer also shared that Lexapro was discontinued which may or may not have been contributory. Patient reflected more on her history and shared that even when she was working she thinks she was still depressed but just used work and dizziness to ignore it. Patient is interested in ECT and has discussed this with Dr. Cuenca. Commissioned Police Officer and patient agreed to discuss it further after she read some literature she just received. Regarding medications patient says gabapentin worsens her restless leg Benadryl is activating not sedating Antipsychotics and general do not work well with her Patient agreed to trial of clonidine for anxiety Mental Status Exam Mental Status Exam Narrative: Pt is alert and oriented; behavior cooperative, calm, though tearful, and friendly; dressed in appropriate cloths, adequate hygiene; mood is described as depressed... but better and affect tearful, anxious but no longer irritable; good eye contact; Speech is normal rate, volume and prosody; no psychomotor agitation present;Thought process is goal oriented, linear; thought content is on treatment; denies SI/SIB/HI. There is no evidence of perceptual disturbance. Patients insight and judgment are impaired but improving. Diagnostics Vital Signs (24Hr): Vital Signs - 24 hr 09/21/21 20:20 09/22/21 08:25 Temperature 98.8 F 98.7 F Pulse Rate 90 64 Respiratory Rate 16 Blood Pressure 121/90 H 112/56 L Pulse Oximetry 94 93 BMI result Body Mass Index 15.5 Labs Results: 09/17/21 21:56 09/17/21 21:56 Medications Medications Current Medications Acetaminophen (Acetaminophen 325 Mg Tablet) 650 mg PO Q6H PRN PRN Reason: Headache/Pain Mild Scale (1-3) Al Hydroxide/Mg Hydroxide (Magnesium Hydrox/Alum Hydrox 30 Ml Oral.Susp) 30 ml PO Q6H PRN PRN Reason: Heartburn/Nausea Albuterol Sulfate (Albuterol Sulfate 90 Mcg 8 Gm Inhaler) 2 puff INHALE RQ6H PRN PRN Reason: asthma Atorvastatin Calcium (Atorvastatin Calcium 20 Mg Tablet) 20 mg PO DAILY [facility] Last Admin: 09/22/21 08:55 Dose: 20 mg Documented by: Gabapentin (Gabapentin 100 Mg Capsule) 200 mg PO TID PRN PRN Reason: anxiety Hydroxyzine HCl (Hydroxyzine Hcl 25 Mg Tablet) 25 mg PO Q6H PRN PRN Reason: Anxiety Last Admin: 09/21/21 17:16 Dose: 25 mg Documented by: Levothyroxine Sodium (Levothyroxine Sodium 75 Mcg Tablet) 75 mcg PO DAILY@0600 [facility] Last Admin: 09/22/21 05:33 Dose: 75 mcg Documented by: [place] Carbonate ([place] Carbonate Er 300 Mg Tablet.Er) 600 mg PO BEDTIME [facility] Last Admin: 09/21/21 20:34 Dose: 600 mg Documented by: Lorazepam (Lorazepam 0.5 Mg Tablet) 0.5 mg PO Q8H PRN PRN Reason: anxiety Last Admin: 09/22/21 05:33 Dose: 0.5 mg Documented by: Magnesium Hydroxide (Milk Of Magnesia 30 Ml Oral.Susp) 30 ml PO DAILY PRN PRN Reason: Constipation Pramipexole Dihydrochloride (Pramipexole Di-Hcl 0.25 Mg Tablet) 0.25 mg PO BID@0800,1500 [facility] Pregabalin (Pregabalin 50 Mg Capsule) 50 mg PO QID [facility] Last Admin: 09/22/21 08:55 Dose: 50 mg Documented by: Trazodone HCl (Trazodone Hcl 50 Mg Tablet) 50 mg PO BEDTIME PRN PRN Reason: Insomnia Allergies Allergies Allergy/AdvReac Type Severity Reaction Status Date / Time olanzapine [From ZYPREXA] AdvReac Intermediate RLS Verified 08/28/21 10:29 symptoms atypical antipsychotics AdvReac Severe This class Uncoded 02/06/21 09:37 appears to potentiate RLS/Akathesia Assessment & Plan Assessment & Plan (1) Bipolar II disorder: Status: Acute Code(s): F31.81 - Bipolar II disorder (2) COPD (chronic obstructive pulmonary disease): Status: Acute Code(s): J44.9 - Chronic obstructive pulmonary disease, unspecified (3) HLD (hyperlipidemia): Status: Acute Code(s): E78.5 - Hyperlipidemia, unspecified (4) RLS (restless legs syndrome): Status: Acute Code(s): G25.81 - Restless legs syndrome (5) Hypothyroidism: Status: Acute Code(s): E03.9 - Hypothyroidism, unspecified (6) Complicated grieving: Status: Acute Code(s): F43.21 - Adjustment disorder with depressed mood Plan Patient is a 60-year-old female with a history of Bipolar Type 2 disorder (possibly OCD) who presents for worsening depression in the face of her mother's this past May 2021 and going off her medications a few weeks ago. On admission patient's depression is very severe and compromising her ability to function on her own. Patient wants to get back on her current medication regimen which she says has been helpful in the past. She agrees to mild increase in lithium since she has become overwhelmed with sadness and depression beyond normal grieving. Patient also wants to get it therapist as her current therapist has been very unreliable in getting back to her and she feels the need to process her feelings about her mother's . Patient is experiencing hopeless feelings however denies any active SI, intent or plans. and family are supportive. Patient irritable over the weekend Patient remains irritable today with process description writer not wanting to talk; however she did discuss ECT with charge nurse and is not ready to discharge. Although patient is normally on citalopram in the community and escitalopram was started as a replacement, it is possible that patient could be triggered by escitalopram while lithium is becoming therapeutic, and account for patient's irritable at [facility]. Will DC escitalopram for now 09/22 patient no longer irritable, cooperative calm and friendly. Remains depressed and anxious, no SI. It is unclear if patient's irritability resolved because she feels better about relationship with or because escitalopram was discontinued (less likely given the fact that she is normally on citalopram). Patient is interested in ECT and would like to continue discussing Plan: CV Q 15 minute checks -considering eCT hospitalist consult ordered -ADDed Clonidine 0.1mg BID for anxiety -lithium ER 600 mg daily (up from 450 mg daily; on current dose patient is depression became overwhelming) -levothyroxine -DC Escitalopram: Initially started escitalopram; will discontinue for now out of an abundance of caution that this medication may have triggered some irritability; Patient on citalopram 20mg in the community, however not on formulary Regarding medications patient says -gabapentin worsens her restless leg -Benadryl is activating not sedating -Antipsychotics and general do not work well with her I spent minutes with the patient and/or on the patient floor today, greater than?50% of which was spent counseling/coordinating care. Reason for contiued inpatient stay Substantial Risk for: rapid decompensation
[2021-09-22] MEDS: Lithium Carbonate ER 300 MG TABLET.ER 600 MG PO (21:33)
[2021-09-22 21:35] VITALS: BP 118/55; PULSE 75; TEMP 36.7; O2SAT 98
[2021-09-22 23:49] VITALS: BP 111/60; PULSE 77; RESP 18; TEMP 36.7; O2SAT 97
[2021-09-22] MEDS: cloNIDine HCL 0.1 MG TABLET 0.05 MG PO (23:51)
[2021-09-23 05:31] VITALS: BP 111/60; PULSE 77; TEMP 36.8; O2SAT 95
[2021-09-23] MEDS: Levothyroxine Sodium 75 MCG TABLET PO (06:00)
[2021-09-23] MEDS: Pramipexole Di-HCL 0.25 MG TABLET PO ×2 (06:01→14:48)
[2021-09-23] MEDS: Atorvastatin Calcium 20 MG TABLET PO (08:22)
[2021-09-23] MEDS: Pregabalin 50 MG CAPSULE PO ×4 (08:22→20:02)
[2021-09-23 09:22] LABS: Lithium 1.07 mmol/L (0.60-1.20)
[2021-09-23 09:49] LABS: Anion Gap 7 (12-20); Blood Urea Nitrogen 9 mg/dL (9-16); Carbon Dioxide 29 mmol/L (22-29); Chloride 107 mmol/L (96-108); Creatinine Clr Calc Pharmacy 51.8; Estimated Glomerular Filt Rate > 60; Sodium 138 mmol/L (135-145)
--- NOTE | 2021-09-23 10:03 | P.PNPSI_ITS ---
Subjective Subjective Date of Service: 09/23/21 Reason For Visit: Bipolar Depression, Med Non-Adherence Interim History: pt remains very depressed and irritable. No SI, but hopeless and desperate to feel better. She wants ECT; pt read hand-out regarding and asked questions about it; family present ( Yaron and son Oswaldo) as well and ECT treatment, benefits versus risks/side effects thoroughly discussed. Patient and family want to proceed. Patient shared more about her history. She reports that depression has been a constant and that she has become adept at hiding it from her family, covering it up however she says it consistently seems to creep forward. Patient share she has been depressed even during childhood. At 1st she thought T MS might have been helpful but she is not so sure that it really worked, saying that she had moments of happiness but the depression was still very near the surface. Discussed patient's irritability toward her roommate and how frustration tolerance will be 1 way to assess her progress. Patient would like to convert to ECT as an outpatient as soon as possible. Mental Status Exam Mental Status Exam Narrative: Pt is alert and oriented; behavior cooperative, calm, intermittently tearful, but friendly; dressed in appropriate cloths, adequate hygiene; mood is described as depressed and affect tearful, anxious, some irritability; good eye contact; Speech is normal rate, volume and prosody; no psychomotor agitation present;Thought process is? goal oriented, linear; thought content is on treatment; denies SI/SIB/HI. There is no evidence of perceptual disturbance. Patients insight and judgment are impaired but improving. Diagnostics Vital Signs (24Hr): Vital Signs - 24 hr 09/22/21 21:35 09/22/21 23:49 09/23/21 05:31 Temperature 98.1 F 98.0 F 98.2 F Pulse Rate 75 77 77 Respiratory Rate 18 Blood Pressure 118/55 L 111/60 111/60 Pulse Oximetry 98 97 95 BMI result Body Mass Index 15.5 Labs Results: 09/17/21 21:56 09/23/21 07:59 Labs: Laboratory Results - last 48 hr 09/23/21 09/23/21 07:59 07:59 Sodium 138 Potassium 5.0 D Chloride 107 Carbon Dioxide 29 Anion Gap 7 L BUN 9 D Creatinine 0.72 Estim Creat Clear Calc 51.8 Estimated GFR > 60 [place] 1.07 Medications Medications Current Medications Acetaminophen (Acetaminophen 325 Mg Tablet) 650 mg PO Q6H PRN PRN Reason: Headache/Pain Mild Scale (1-3) Al Hydroxide/Mg Hydroxide (Magnesium Hydrox/Alum Hydrox 30 Ml Oral.Susp) 30 ml PO Q6H PRN PRN Reason: Heartburn/Nausea Albuterol Sulfate (Albuterol Sulfate 90 Mcg 8 Gm Inhaler) 2 puff INHALE RQ6H PRN PRN Reason: asthma Atorvastatin Calcium (Atorvastatin Calcium 20 Mg Tablet) 20 mg PO DAILY [facility] Last Admin: 09/23/21 08:22 Dose: 20 mg Documented by: Clonidine HCl (Clonidine Hcl 0.1 Mg Tablet) 0.05 mg PO TID PRN; Protocol PRN Reason: anxiety Last Admin: 09/22/21 23:51 Dose: 0.05 mg Documented by: Levothyroxine Sodium (Levothyroxine Sodium 75 Mcg Tablet) 75 mcg PO DAILY@0600 [facility] Last Admin: 09/23/21 06:00 Dose: 75 mcg Documented by: [place] Carbonate ([place] Carbonate Er 300 Mg Tablet.Er) 600 mg PO BEDTIME [facility] Last Admin: 09/22/21 21:33 Dose: 600 mg Documented by: Lorazepam (Lorazepam 0.5 Mg Tablet) 0.5 mg PO BEDTIME PRN PRN Reason: bedtime anxiety Last Admin: 09/22/21 18:51 Dose: 0.5 mg Documented by: Magnesium Hydroxide (Milk Of Magnesia 30 Ml Oral.Susp) 30 ml PO DAILY PRN PRN Reason: Constipation Pramipexole Dihydrochloride (Pramipexole Di-Hcl 0.25 Mg Tablet) 0.25 mg PO BID@0800,1500 [facility] Last Admin: 09/23/21 06:01 Dose: 0.25 mg Documented by: Pregabalin (Pregabalin 50 Mg Capsule) 50 mg PO QID [facility] Last Admin: 09/23/21 08:22 Dose: 50 mg Documented by: Allergies Allergies Allergy/AdvReac Type Severity Reaction Status Date / Time olanzapine [From ZYPREXA] AdvReac Intermediate RLS Verified 08/28/21 10:29 symptoms atypical antipsychotics AdvReac Severe This class Uncoded 02/06/21 09:37 appears to potentiate RLS/Akathesia Assessment & Plan Assessment & Plan (1) Bipolar II disorder: Status: Acute Code(s): F31.81 - Bipolar II disorder (2) COPD (chronic obstructive pulmonary disease): Status: Acute Code(s): J44.9 - Chronic obstructive pulmonary disease, unspecified (3) HLD (hyperlipidemia): Status: Acute Code(s): E78.5 - Hyperlipidemia, unspecified (4) RLS (restless legs syndrome): Status: Acute Code(s): G25.81 - Restless legs syndrome (5) Hypothyroidism: Status: Acute Code(s): E03.9 - Hypothyroidism, unspecified (6) Complicated grieving: Status: Acute Code(s): F43.21 - Adjustment disorder with depressed mood Plan Patient is a 60-year-old female with a history of Bipolar Type 2 disorder (possibly OCD) who presents for worsening depression in the face of her mother's this past May 2021 and going off her medications a few weeks ago. On admission patient's depression is very severe and compromising her ability to function on her own. Patient wants to get back on her current medication regimen which she says has been helpful in the past. She agrees to mild increase in lithium since she has become overwhelmed with sadness and depression beyond norm al grieving. Patient also wants to get it therapist as her current therapist has been very unreliable in getting back to her and she feels the need to process her feelings about her mother's . Patient is experiencing hopeless feelings however denies any active SI, intent or plans. and family are supportive. Patient irritable over the weekend Patient remains irritable today with film writer not wanting to talk; however she did discuss ECT with charge nurse and is not ready to discharge. Although patient is normally on citalopram in the community and escitalopram was started as a replacement, it is possible that patient could be triggered by escitalopram while lithium is becoming therapeutic, and account for patient's irritable at [facility]. Will DC escitalopram for now 09/22 patient no longer irritable, cooperative calm and friendly. Remains depressed and anxious, no SI. It is unclear if patient's irritability resolved because she feels better about relationship with or because escitalopram was discontinued (less likely given the fact that she is normally on citalopra m). Patient is interested in ECT and would like to continue discussing 09/23 patient remains depressed and wants ECT; family meeting had with patient and administrator social welfare; family asked questions and discussed ECT and agree with patient is a reasonable plan Plan: CV Q 15 minute checks Patient wants to proceed with ECT which is scheduled for this Tuesday hospitalist consult ordered -ADDed Clonidine 0.5mg BID for anxiety -LOWER to lithium ER 450 mg daily (600mg brought patient to therapeutic level however lithium plus ECT can increase risk for memory issues) -DC lithium night before ECT -levothyroxine -DC Escitalopram: Initially started escitalopram; will discontinue for now out of an abundance of caution that this medication may have triggered some irritability; Patient on citalopram 20mg in the community, however not on formulary Regarding medications patient says -gabapentin worsens her restless leg -Benadryl is activating not sedating -Antipsychotics and general do not work well with her I spent minutes with the patient and/or on the patient floor today, greater than?50% of which was spent counseling/coordinating care. Reason for contiued inpatient stay Substantial Risk for: rapid decompensation
--- NOTE | 2021-09-23 16:23 | P.CNHOSGPS_ITS ---
History of Present Illness Data of Consult Service Date: 09/23/21 Requesting physician: Rocky Cobos Primary Care Provider: Unknown Physician HPI Reason for consult: ect clearence 58-year-old female past medical history depression, bipolar, restless leg syndrome, COPD, hyperlipidemia: She was admitted because of depression and consult was called for ECT clearance. Patient still feels very depressed. Denies any new complaint of chest pain or shortness of breath or abdominal pain or fever or chills or nausea or vomiting Denies any cough or headache or blurry vision or weakness or numbness. Denies any history of any stroke or coronary artery disease or seizure . EKG reviewed seems NSR similar to before. Review of Systems Review of Systems: As above. Yes all other systems are reviewed and are negative ENT: Reports Normal hearing present Neurologic: Reports Normal hearing present [facility] Medical History Bipolar II disorder COPD (chronic obstructive pulmonary disease) HLD (hyperlipidemia) Hypothyroidism Osteoporosis RLS (restless legs syndrome) Family History Mother No problems noted. Father No problems noted. Son Substance use disorder Surgical History H/O: hysterectomy Social History Household Members: Spouse and Other Household Members Other:: adult son Housing: House Do you presently have visiting nurse or other home services: No Alcohol intake: never Patient Tobacco Use Status: Current everyday Tobacco user Tobacco use type: Cigarette Cigarettes Per Day: 5 Smoked in Last 30 Days: Yes e-Cigarette/Vaping Use: Currently Using Patient Interested in Nicotine Replacement: No Patient Given Instructions on How to Stop Smoking: No Second Hand Smoke Exposure: No Use of substances other than those prescribed or required for medical reasons: Refusing to respond Substance Use Type: Marijuana and Prescription Drugs Last Used Substance: Unknown Currently Displaying Signs/Symptoms of Drug Intoxication Withdrawal: No Advance Directives: No Advance Directives Information Provided: Yes Guardian: No Do you have thoughts of harming others: None Do you have a plan to hurt others: No Plan Recently lost weight without trying: Unsure Nutrition Risks: No Nutritional Risk Patient : No : No Poor oral hygiene: No service: No Current occupational status: employed Sexual orientation: Straight/Heterosexual Meds Allergies Allergy/AdvReac Type Severity Reaction Status Date / Time olanzapine [From ZYPREXA] AdvReac Intermediate RLS Verified 08/28/21 10:29 symptoms atypical antipsychotics AdvReac Severe This class Uncoded 02/06/21 09:37 appears to potentiate RLS/Akathesia Active Medications: Current Medications Acetaminophen (Acetaminophen 325 Mg Tablet) 650 mg PO Q6H PRN PRN Reason: Headache/Pain Mild Scale (1-3) Al Hydroxide/Mg Hydroxide (Magnesium Hydrox/Alum Hydrox 30 Ml Oral.Susp) 30 ml PO Q6H PRN PRN Reason: Heartburn/Nausea Albuterol Sulfate (Albuterol Sulfate 90 Mcg 8 Gm Inhaler) 2 puff INHALE RQ6H PRN PRN Reason: asthma Atorvastatin Calcium (Atorvastatin Calcium 20 Mg Tablet) 20 mg PO DAILY [facility] Last Admin: 09/23/21 08:22 Dose: 20 mg Documented by: Clonidine HCl (Clonidine Hcl 0.1 Mg Tablet) 0.1 mg PO TID PRN; Protocol PRN Reason: anxiety Levothyroxine Sodium (Levothyroxine Sodium 75 Mcg Tablet) 75 mcg PO DAILY@0600 [facility] Last Admin: 09/23/21 06:00 Dose: 75 mcg Documented by: [place] Carbonate ([place] Carbonate Er 450 Mg Tablet.Er) 450 mg PO BEDTIME [facility] Lorazepam (Lorazepam 0.5 Mg Tablet) 0.5 mg PO BEDTIME PRN PRN Reason: bedtime anxiety Last Admin: 09/22/21 18:51 Dose: 0.5 mg Documented by: Magnesium Hydroxide (Milk Of Magnesia 30 Ml Oral.Susp) 30 ml PO DAILY PRN PRN Reason: Constipation Nicotine Polacrilex (Nicotine Polacrilex Lozenge 4 Mg Lozenge) 4 mg BUCCAL Q2H PRN PRN Reason: Nicotine Cravings Pramipexole Dihydrochloride (Pramipexole Di-Hcl 0.25 Mg Tablet) 0.25 mg PO BID@0800,1500 [facility] Last Admin: 09/23/21 14:48 Dose: 0.25 mg Documented by: Pregabalin (Pregabalin 50 Mg Capsule) 50 mg PO QID [facility] Last Admin: 09/23/21 14:48 Dose: 50 mg Documented by: Home Medications Medication Instructions Recorded Confirmed Last Taken Type cholecalciferol (vitamin D3) 25 25 mcg PO DAILY 06/15/20 08/28/21 07/21/21 08:00 History mcg (1,000 unit) tablet fluticasone 113 mcg-salmeterol 14 1 puff PO BID 06/15/20 08/28/21 Unknown Histor y mcg/actuation breath activated powdr ropinirole 0.5 mg tablet 0.5 mg PO BEDTIME 06/15/20 08/28/21 Unknown History pramipexole 0.5 mg tablet 0.5 mg PO BEDTIME 07/21/20 08/28/21 Unknown History atorvastatin 20 mg tablet 1 tab PO DAILY 07/21/21 08/28/21 07/21/21 08:00 History citalopram 20 mg tablet 1 tab PO DAILY 07/21/21 08/28/21 07/21/21 08:00 History pramipexole 0.25 mg tablet 1 tab PO BID 07/21/21 08/28/21 07/21/21 08:00 History pregabalin 50 mg capsule (Lyrica) 1 cap PO 5XD 07/21/21 08/28/21 07/21/21 08:00 History Results Labs CBC and Chem 7: 09/17/21 21:56 09/23/21 07:59 Labs: Laboratory Results - last 24 hr 09/23/21 09/23/21 07:59 07:59 Anion Gap 7 L Estim Creat Clear Calc 51.8 Estimated GFR > 60 [place] 1.07 Assessment and Plan (1) Depression: Status: Acute (2) Hypothyroidism: Status: Acute (3) RLS (restless legs syndrome): Status: Acute (4) COPD (chronic obstructive pulmonary disease): Status: Acute Plan 60-year-old female with multiple comorbidities, came to the hospital because of depression, consult was called for ECT clearance. As per the patient she did not had any CT before. 1. Depression: Patient needs ECT as per psych. EKG seems for similar to before. Patient denies any cardiac or any neurological issues. Electrolytes seems fine no absolute contraindications to ECT and today's evaluation.? Continue psych medications as per psych. 2. Hypothyroidism: Continue thyroid replacement. 3.COPD continue home COPD medications 4.RLS: Continue ropinirole. Above management discussed with psych in detail length. Please call us for any further questions. Physical Exam Vital Signs: Last Vital Signs Temp 98.2 F 09/23/21 05:31 Pulse 77 09/23/21 05:31 Resp 18 09/22/21 23:49 BP 111/60 09/23/21 05:31 Pulse Ox 95 09/23/21 05:31 BMI result Body Mass Index 15.5 Appearance: Alert.? Oriented X3.? not in distress.? Eyes: Pupils equal, round and reactive to light.? Sclera nonicteric.? ENT: Pharynx normal.? Moist mucous membranes. cvs: rrr, [id number] , no murmur res: clear to auscultation ,no rhonchii or wheezing abd: no rebound or guarding ,nt, bs present. ext pulses present , no cyanosis ,Gait well balanced well coordinated. neuro: axo3 , nonfocal. psych : seems flat effect. Eyes Pupils: Equal, round and reactive pupils present Neuro Cranial nerves: Yes CN's II-XII intact bilaterally, Yes Facial sensation intact/muscles of mastication intact, Yes Intact sense of smell present, Yes Equal, round and reactive pupils present, Yes Normal accommodation reflex present, Yes Bilaterally intact EOM present, Yes Nystagmus not present, Yes Normal facial strength present, Yes Midline tongue present, Yes Normal gag reflex present, Yes Symmetric palate elevation present, Yes Normal hearing present, Yes Ability to bilaterally rotate head present and Yes Ability to bilaterally elevate shoulders present
[2021-09-23 19:05] VITALS: BP 96/47; PULSE 72; TEMP 36.4; O2SAT 95
[2021-09-23] MEDS: Lithium Carbonate ER 450 MG TABLET.ER PO (20:02)
[2021-09-24] MEDS: LORazepam 0.5 MG TABLET PO ×2 (02:43→14:44)
[2021-09-24 06:00] VITALS: BP 109/59; PULSE 74; RESP 16; TEMP 36.8; O2SAT 96
[2021-09-24 07:00] VITALS: BMI 19.0
[2021-09-24] MEDS: Pramipexole Di-HCL 0.25 MG TABLET PO ×2 (07:01→14:06)
[2021-09-24] MEDS: Levothyroxine Sodium 75 MCG TABLET PO (07:02)
[2021-09-24] MEDS: Atorvastatin Calcium 20 MG TABLET PO (09:03)
[2021-09-24] MEDS: Pregabalin 50 MG CAPSULE PO ×4 (09:03→20:09)
--- NOTE | 2021-09-24 09:43 | HO.PSYCHPN ---
Subjective Subjective Date of Service: 09/24/21 Reason For Visit: Bipolar Depression, Med Non-Adherence Interim History: Patient reports she is sleeping well enough. She is overall flailing a little less depressed and more hopeful since she is anticipating ECT. She still complains of anxiety and wanted to see if she could add Ativan 0.5 mg; she agreed to see if clonidine could work instead however. Light Bulb Tester discussed history of substance abuse. Patient says she feels that she has been misunderstood and labeled someone with substance abuse when it has been far and few in between. She said she has only used cocaine twice in her life most recently 1 time this past July; she says she quit drinking about 30 years ago as she and her both realized they were vulnerable given their family histories. Patient says that after her son she was using clonazepam to help her sleep and not think about her loss, using up to 6 mg per night. She says that this was discontinued years ago. Light Bulb Tester discussed case with a jessica [place] aunlisa and walk a who says that most patients substance abuse has been in the context of manic states. Mental Status Exam Mental Status Exam Narrative: Pt is alert and oriented; behavior cooperative, calm, friendly; dressed in appropriate cloths, adequate hygiene; mood is described as depressed...little better and affect congruent;? good eye contact; Speech is normal rate, volume and prosody; no psychomotor agitation present;Thought process is? goal oriented, linear; thought content is on treatment; denies SI/SIB/HI. There is no evidence of perceptual disturbance. Patients insight and judgment are impaired but improving. Diagnostics Vital Signs (24Hr): Vital Signs - 24 hr 09/23/21 19:05 09/24/21 06:00 Temperature 97.5 F 98.2 F Pulse Rate 72 74 Respiratory Rate 16 Blood Pressure 96/47 L 109/59 L Pulse Oximetry 95 96 BMI result Body Mass Index 15.5 Labs Results: 09/17/21 21:56 09/23/21 07:59 Labs: Laboratory Results - last 48 hr 09/23/21 09/23/21 07:59 07:59 Sodium 138 Potassium 5.0 D Chloride 107 Carbon Dioxide 29 Anion Gap 7 L BUN 9 D Creatinine 0.72 Estim Creat Clear Calc 51.8 Estimated GFR > 60 [place] 1.07 Medications Medications Current Medications Acetaminophen (Acetaminophen 325 Mg Tablet) 650 mg PO Q6H PRN PRN Reason: Headache/Pain Mild Scale (1-3) Al Hydroxide/Mg Hydroxide (Magnesium Hydrox/Alum Hydrox 30 Ml Oral.Susp) 30 ml PO Q6H PRN PRN Reason: Heartburn/Nausea Albuterol Sulfate (Albuterol Sulfate 90 Mcg 8 Gm Inhaler) 2 puff INHALE RQ6H PRN PRN Reason: asthma Atorvastatin Calcium (Atorvastatin Calcium 20 Mg Tablet) 20 mg PO DAILY [facility] Last Admin: 09/24/21 09:03 Dose: 20 mg Documented by: Clonidine HCl (Clonidine Hcl 0.1 Mg Tablet) 0.1 mg PO TID PRN; Protocol PRN Reason: anxiety Levothyroxine Sodium (Levothyroxine Sodium 75 Mcg Tablet) 75 mcg PO DAILY@0600 [facility] Last Admin: 09/24/21 07:02 Dose: 75 mcg Documented by: [place] Carbonate ([place] Carbonate Er 450 Mg Tablet.Er) 450 mg PO BEDTIME [facility] Last Admin: 09/23/21 20:02 Dose: 450 mg Documented by: Lorazepam (Lorazepam 0.5 Mg Tablet) 0.5 mg PO BEDTIME PRN PRN Reason: bedtime anxiety Last Admin: 09/24/21 02:43 Dose: 0.5 mg Documented by: Magnesium Hydroxide (Milk Of Magnesia 30 Ml Oral.Susp) 30 ml PO DAILY PRN PRN Reason: Constipation Nicotine Polacrilex (Nicotine Polacrilex Lozenge 4 Mg Lozenge) 4 mg BUCCAL Q2H PRN PRN Reason: Nicotine Cravings Pramipexole Dihydrochloride (Pramipexole Di-Hcl 0.25 Mg Tablet) 0.25 mg PO BID@0800,1500 [facility] Last Admin: 09/24/21 07:01 Dose: 0.25 mg Documented by: Pregabalin (Pregabalin 50 Mg Capsule) 50 mg PO QID [facility] Last Admin: 09/24/21 09:03 Dose: 50 mg Documented by: Allergies Allergies Allergy/AdvReac Type Severity Reaction Status Date / Time olanzapine [From ZYPREXA] AdvReac Intermediate RLS Verified 08/28/21 10:29 symptoms atypical antipsychotics AdvReac Severe This class Uncoded 02/06/21 09:37 appears to potentiate RLS/Akathesia Assessment & Plan Assessment & Plan (1) Depression: Status: Acute Code(s): F32.A - Depression, unspecified (2) Hypothyroidism: Status: Acute Code(s): E03.9 - Hypothyroidism, unspecified (3) RLS (restless legs syndrome): Status: Acute Code(s): G25.81 - Restless legs syndrome (4) COPD (chronic obstructive pulmonary disease): Status: Acute Code(s): J44.9 - Chronic obstructive pulmonary disease, unspecified Plan Patient is a 60-year-old female with a history of Bipolar Type 2 disorder (possibly OCD) who presents for worsening depression in the face of her mother's this past May 2021 and going off her medications a few weeks ago. On admission patient's depression is very severe and compromising her ability to function on her own. Patient wants to get back on her current medication regimen which she says has been helpful in the past.? She agrees to mild increase in lithium since she has become overwhelmed with sadness and depression beyond normal grieving.? Patient also wants to get it therapist as her current therapist has been very unreliable in getting back to her and she feels the need to process her feelings about her mother's .? Patient is experiencing hopeless feelings however denies any active SI, intent or plans.? and family are supportive. Patient irritable over the weekend Patient remains irritable today with junior technical writer not wanting to talk; however she did discuss ECT with charge nurse and is not ready to discharge. Although patient is normally on citalopram in the community and escitalopram was started as a replacement, it is possible that patient could be triggered by escitalopram while lithium is becoming therapeutic, and account for patient's irritable at [facility].? Will DC escitalopram for now 09/22 patient no longer irritable, cooperative calm and friendly.? Remains depressed and anxious, no SI.? It is unclear if patient's irritability resolved because she feels better about relationship with or because escitalopram was discontinued (less likely given the fact that she is normally on citalopram).? Patient is interested in ECT and would like to continue discussing 09/23 patient remains depressed and wants ECT; family meeting had with patient and forensic social worker; family asked questions and discussed ECT and agree with patient is a reasonable plan 09/24-continue w/ tx plan Plan: CV? Q 15 minute checks Patient wants to proceed with ECT which is scheduled for this Tuesday hospitalist consult ordered -Increased to Clonidine 0.1mg BID for anxiety -added atiavn 0.5 mg bid prn for anxiety -LOWERed to lithium ER 450 mg daily (600mg brought patient to therapeutic level however lithium plus ECT can increase risk for memory issues) -DC lithium night before ECT -levothyroxine -DC Escitalopram: Initially started escitalopram; will discontinue for now out of an abundance of caution that this medication may have triggered some irritability; Patient on citalopram 20mg in the community, however not on formulary Regarding medications patient says -gabapentin worsens her restless leg -Benadryl is activating not sedating -Antipsychotics and general do not work well with her 60-year-old female with multiple comorbidities, came to the hospital because of depression, consult was called for ECT clearance. As per the patient she did not had any CT before. 1. Depression: Patient needs ECT as per psych. EKG seems for similar to before. Patient denies any cardiac or any neurological issues. Electrolytes seems fine no absolute contraindications to ECT and today's evaluation.? Continue psych medications as per psych. 2. Hypothyroidism: Continue thyroid replacement. 3.COPD continue home COPD medications 4.RLS: Continue ropinirole. Above management discussed with psych in detail length. Please call us for any further questions. I spent minutes with the patient and/or on the patient floor today, greater than?50% of which was spent counseling/coordinating care. Reason for contiued inpatient stay Substantial Risk for: rapid decompensation
[2021-09-24] MEDS: cloNIDine HCL 0.1 MG TABLET PO (10:09)
[2021-09-24 10:12] VITALS: BP 121/61; PULSE 88
[2021-09-24 11:14] LABS: COVID-19 Test Negative (Negative)
--- NOTE | 2021-09-24 14:51 | PC.NURSE ---
This technical report writer attempted to administer MoCA screen, pt stated she did not wish to continue due increased feelings of frustration. This technical report writer will attempt again at a later date
[2021-09-24 17:40] VITALS: BP 93/51; PULSE 51; RESP 16; TEMP 36.4; O2SAT 96
[2021-09-24] MEDS: traZODone HCL 100 MG TABLET PO (21:06)
[2021-09-25] VITALS (9 sets, daily range): BP systolic 92–135; BP diastolic 37–64; PULSE 50–94; RESP 16–18; TEMP 36–37.2; O2SAT 96–99; BMI 18.8
[2021-09-25] MEDS: LORazepam 0.5 MG TABLET PO ×3 (06:52→23:38)
[2021-09-25] MEDS: Levothyroxine Sodium 75 MCG TABLET PO (07:04)
--- NOTE | 2021-09-25 10:17 | P.PNPSI_ITS ---
Subjective Subjective Date of Service: 09/25/21 Reason For Visit: Bipolar Depression, Med Non-Adherence Interim History: Anxious, anticipating ECT. Data Entry Analyst met with patient after ECT which she said was tolerated well. She says she has a slight headache but it is not too bothersome. She does say she continues to have anxiety and would like Ativan 0.5 mg. She agreed to try clonidine 1st and then Ativan if she still had anxiety. Also discussed medication regimen and patient feels that her citalopram was never that helpful. She wonders if when ECT is done, and [place] increased to 600 mg q.h.s. if this will be sufficient for her depression. To that and she does not want to restart SSRI at this time. MOCA: Mental Status Exam Mental Status Exam Narrative: Pt is alert and oriented; behavior cooperative, calm, friendly; dressed in appropriate cloths, adequate hygiene; mood is described as little better and affect congruent;? good eye contact; Speech is normal rate, volume and prosody; no psychomotor agitation present;Thought process is? goal oriented, linear; thought content is on treatment; denies SI/SIB/HI. There is no evidence of perceptual disturbance. Patients insight and judgment are impaired but improving. Diagnostics Vital Signs (24Hr): Vital Signs - 24 hr 09/24/21 17:40 09/25/21 06:00 Temperature 97.6 F 97.9 F Pulse Rate 51 55 Respiratory Rate 16 18 Blood Pressure 93/51 L 96/51 L Pulse Oximetry 96 96 BMI result Body Mass Index 19.0 Labs Results: 09/17/21 21:56 09/23/21 07:59 Labs: Laboratory Results - last 48 hr 09/24/21 09:31 COVID-19 ([facility]) Negative COVID-19 Clin Com See Note Medications Medications Current Medications Acetaminophen (Acetaminophen 325 Mg Tablet) 650 mg PO Q6H PRN PRN Reason: Headache/Pain Mild Scale (1-3) Al Hydroxide/Mg Hydroxide (Magnesium Hydrox/Alum Hydrox 30 Ml Oral.Susp) 30 ml PO Q6H PRN PRN Reason: Heartburn/Nausea Albuterol Sulfate (Albuterol Sulfate 90 Mcg 8 Gm Inhaler) 2 puff INHALE RQ6H PRN PRN Reason: asthma Atorvastatin Calcium (Atorvastatin Calcium 20 Mg Tablet) 20 mg PO DAILY [facility] Last Admin: 09/24/21 09:03 Dose: 20 mg Documented by: Clonidine HCl (Clonidine Hcl 0.1 Mg Tablet) 0.1 mg PO TID PRN; Protocol PRN Reason: anxiety Last Admin: 09/24/21 10:09 Dose: 0.1 mg Documented by: Levothyroxine Sodium (Levothyroxine Sodium 75 Mcg Tablet) 75 mcg PO DAILY@0600 [facility] Last Admin: 09/25/21 07:04 Dose: 75 mcg Documented by: [place] Carbonate ([place] Carbonate Er 450 Mg Tablet.Er) 450 mg PO MoWe FrSa@2100 [facility] Magnesium Hydroxide (Milk Of Magnesia 30 Ml Oral.Susp) 30 ml PO DAILY PRN PRN Reason: Constipation Nicotine Polacrilex (Nicotine Polacrilex Lozenge 4 Mg Lozenge) 4 mg BUCCAL Q2H PRN PRN Reason: Nicotine Cravings Pramipexole Dihydrochloride (Pramipexole Di-Hcl 0.25 Mg Tablet) 0.25 mg PO BID@0800,1500 [facility] Last Admin: 09/24/21 14:06 Dose: 0.25 mg Documented by: Pregabalin (Pregabalin 50 Mg Capsule) 50 mg PO QID [facility] Last Admin: 09/24/21 20:09 Dose: 50 mg Documented by: Trazodone HCl (Trazodone Hcl 100 Mg Tablet) 100 mg PO BEDTIME PRN PRN Reason: insomnia Last Admin: 09/24/21 21:06 Dose: 100 mg Documented by: Allergies Allergies Allergy/AdvReac Type Severity Reaction Status Date / Time olanzapine [From ZYPREXA] AdvReac Intermediate RLS Verified 08/28/21 10:29 symptoms atypical antipsychotics AdvReac Severe This class Uncoded 02/06/21 09:37 appears to potentiate RLS/Akathesia Assessment & Plan Assessment & Plan (1) Depression: Status: Acute Code(s): F32.A - Depression, unspecified (2) Hypothyroidism: Status: Acute Code(s): E03.9 - Hypothyroidism, unspecified (3) RLS (restless legs syndrome): Status: Acute Code(s): G25.81 - Restless legs syndrome (4) COPD (chronic obstructive pulmonary disease): Status: Acute Code(s): J44.9 - Chronic obstructive pulmonary disease, unspecified Plan Patient is a 60-year-old female with a history of Bipolar Type 2 disorder (p ossibly OCD) who presents for worsening depression in the face of her mother's this past May 2021 and going off her medications a few weeks ago. On admission patient's depression is very severe and compromising her ability to function on her own. Patient wants to get back on her current medication regimen which she says has been helpful in the past.? She agrees to mild increase in lithium since she has become overwhelmed with sadness and depression beyond normal grieving.? Patient also wants to get it therapist as her current therapist has been very unreliable in getting back to her and she feels the need to process her feelings about her mother's .? Patient is experiencing ho peless feelings however denies any active SI, intent or plans.? and family are supportive. Patient irritable over the weekend Patient remains irritable today with service writer advisor not wanting to talk; however she did discuss ECT with charge nurse and is not ready to discharge. Although patient is normally on citalopram in the community and escitalopram was started as a replacement, it is possible that patient could be triggered by escitalopram while lithium is becoming therapeutic, and account for patient's irritable at [facility].? Will DC escitalopram for now 09/22 patient no longer irritable, cooperative calm and friendly.? Remains depressed and anxious, no SI.? It is unclear if patient's irritability resolved because she feels better about relationship with or because escitalopram was discontinued (less likely given the fact that she is normally on citalopram).? Patient is interested in ECT and would like to continue discussing 09/23 patient remains depressed and wants ECT; family meeting had with patient and social media sr strategy manager; family asked questions and discussed ECT and agree with patient is a reasonable plan 09/24-continue w/ tx plan 09/25 She agreed to try clonidine 1st and then Ativan if she still had anxiety. Also discussed medication regimen and patient feels that her citalopram was never that helpful. She wonders if when ECT is done, and [place] increased to 600 mg q.h.s. if this will be sufficient for her depression. To that and she does not want to restart SSRI at this time. MOCA: (prior to ECT) Plan: CV? Q 15 minute checks Patient wants to proceed with ECT which is scheduled for this [facility] hospitalist consult ordered -Increased to Clonidine 0.1mg BID for anxiety -added atiavn 0.5 mg bid prn for anxiety but for pt to try clonidine first -LOWERed to lithium ER 450 mg daily (600mg brought patient to therapeutic level however lithium plus ECT can increase risk for memory issues) -DC lithium night before ECT -levothyroxine -DC Escitalopram: Initially started escitalopram; will discontinue for now out of an abundance of caution that this medication may have triggered some irritability; Patient on citalopram 20mg in the community, however not on formulary; patient would like to stay off SSRI for now hoping that lithium will be sufficient for depression at the increased dose of 600 mg Regarding medications patient says -gabapentin worsens her restless leg -Benadryl is activating not sedating -Antipsychotics and general do not work well with her 60-year-old female with multiple comorbidities, came to the hospital because of depression, consult was called for ECT clearance. As per the patient she did not had any CT before. 1. Depression: Patient needs ECT as per psych. EKG seems for similar to before. Patient denies any cardiac or any neurological issues. Electrolytes seems fine no absolute contraindications to ECT and today's evaluation.? Continue psych medications as per psych. 2. Hypothyroidism: Continue thyroid replacement. 3.COPD continue home COPD medications 4.RLS: Continue ropinirole. Above management discussed with psych in detail length. Please call us for any further questions. I spent minutes with the patient and/or on the patient floor today, greater than?50% of which was spent counseling/coordinating care. Reason for contiued inpatient stay Substantial Risk for: med/psych decompensation
[2021-09-25] MEDS: Pramipexole Di-HCL 0.25 MG TABLET PO ×2 (10:47→14:17)
--- NOTE | 2021-09-25 11:26 | PC.NURSE ---
Pt completed a MoCA on 09/25/2021. Pt scored a 19/30, indicating cognition is not within normal limits.
--- NOTE | 2021-09-25 12:09 | ECG_ITS ---
Test Reason : PRE ECT Blood Pressure : / mmHG Vent. Rate : 047 BPM Atrial Rate : 047 BPM P-R Int : 142 ms QRS Dur : 088 ms QT Int : 456 ms P-R-T Axes : 061 062 059 degrees QTc Int : 403 ms Sinus bradycardia Otherwise normal ECG When compared with ECG of 21-JUL-2021 14:50, Criteria for Septal infarct are no longer Present T wave inversion no longer evident in Anterior leads Referred By: Matt Mendez Electronically Signed By:Sebastian Vivas
--- NOTE | 2021-09-25 12:23 | P.CONAN_ITS ---
[facility] Active Problems Active Problems: All Active Problems (Updated 09/17/21 @ 21:43 by ELISE Sims) Depression (Acute) Complicated grieving (Acute) Sinusitis (Acute) Cocaine use disorder (Acute) Substance induced mood disorder (Acute) Osteoporosis (Acute) Fracture of proximal end of left humerus (Acute) Shoulder pain (Acute) Hypothyroidism (Acute) Vaginal dryness, menopausal (Acute) Bipolar II disorder (Acute) RLS (restless legs syndrome) (Acute) COPD (chronic obstructive pulmonary disease) (Acute) HLD (hyperlipidemia) (Acute) Past Medical History Medical History Bipolar II disorder COPD (chronic obstructive pulmonary disease) HLD (hyperlipidemia) Hypothyroidism Osteoporosis RLS (restless legs syndrome) Family History Family History Mother No problems noted. Father No problems noted. Son Substance use disorder Surgical History Surgical History H/O: hysterectomy History of Problems with Anesthesia: No Social History Social History Household Members: Spouse and Other Household Members Other:: adult son Housing: House Do you presently have visiting nurse or other home services: No Alcohol intake: never Patient Tobacco Use Status: Current everyday Tobacco user Tobacco use type: Cigarette Cigarettes Per Day: 1 Smoked in Last 30 Days: Yes e-Cigarette/Vaping Use: Currently Using Patient Interested in Nicotine Replacement: No Patient Given Instructions on How to Stop Smoking: No Second Hand Smoke Exposure: No Use of substances other than those prescribed or required for medical reasons: No Substance Use Type: Marijuana and Prescription Drugs Last Used Substance: Unknown Currently Displaying Signs/Symptoms of Drug Intoxication Withdrawal: No Advance Directives: No Advance Directives Information Provided: Yes Guardian: No Do you have thoughts of harming others: None Do you have a plan to hurt others: No Plan Recently lost weight without trying: Unsure Nutrition Risks: No Nutritional Risk Patient : No : No Poor oral hygiene: No service: No Current occupational status: employed Sexual orientation: Straight/Heterosexual Meds Allergies Allergy/AdvReac Type Severity Reaction Status Date / Time olanzapine [From ZYPREXA] AdvReac Intermediate RLS Verified 08/28/21 10:29 symptoms atypical antipsychotics AdvReac Severe This class Uncoded 02/06/21 09:37 appears to potentiate RLS/Akathesia Active Medications: Current Medications Acetaminophen (Acetaminophen 325 Mg Tablet) 650 mg PO Q6H PRN PRN Reason: Headache/Pain Mild Scale (1-3) Al Hydroxide/Mg Hydroxide (Magnesium Hydrox/Alum Hydrox 30 Ml Oral.Susp) 30 ml PO Q6H PRN PRN Reason: Heartburn/Nausea Albuterol Sulfate (Albuterol Sulfate 90 Mcg 8 Gm Inhaler) 2 puff INHALE RQ6H PRN PRN Reason: asthma Atorvastatin Calcium (Atorvastatin Calcium 20 Mg Tablet) 20 mg PO DAILY [facility] Last Admin: 09/24/21 09:03 Dose: 20 mg Documented by: Clonidine HCl (Clonidine Hcl 0.1 Mg Tablet) 0.1 mg PO TID PRN; Protocol PRN Reason: anxiety Last Admin: 09/24/21 10:09 Dose: 0.1 mg Documented by: Levothyroxine Sodium (Levothyroxine Sodium 75 Mcg Tablet) 75 mcg PO DAILY@0600 [facility] Last Admin: 09/25/21 07:04 Dose: 75 mcg Documented by: [place] Carbonate ([place] Carbonate Er 450 Mg Tablet.Er) 450 mg PO MoW eFrSa@2100 [facility] Magnesium Hydroxide (Milk Of Magnesia 30 Ml Oral.Susp) 30 ml PO DAILY PRN PRN Reason: Constipation Nicotine Polacrilex (Nicotine Polacrilex Lozenge 4 Mg Lozenge) 4 mg BUCCAL Q2H PRN PRN Reason: Nicotine Cravings Pramipexole Dihydrochloride (Pramipexole Di-Hcl 0.25 Mg Tablet) 0.25 mg PO BID@0800,1500 [facility] Last Admin: 09/24/21 14:06 Dose: 0.25 mg Documented by: Pregabalin (Pregabalin 50 Mg Capsule) 50 mg PO QID [facility] Last Admin: 09/24/21 20:09 Dose: 50 mg Documented by: Trazodone HCl (Trazodone Hcl 100 Mg Tablet) 100 mg PO BEDTIME PRN PRN Reason: insomnia Last Admin: 09/24/21 21:06 Dose: 100 mg Documented by: Home Medications Medication Instructions Recorded Confirmed Last Taken Type cholecalciferol (vitamin D3) 25 25 mcg PO DAILY 06/15/20 08/28/21 07/21/21 08:00 History mcg (1,000 unit) tablet fluticasone 113 mcg-salmeterol 14 1 puff PO BID 06/15/20 08/28/21 Unknown History mcg/actuation breath activated powdr ropinirole 0.5 mg tablet 0.5 mg PO BEDTIME 06/15/20 08/28/21 Unknown History pramipexole 0.5 mg tablet 0.5 mg PO BEDTIME 07/21/20 08/28/21 Unknown History atorvastatin 20 mg tablet 1 tab PO DAILY 07/21/21 08/28/21 07/21/21 08:00 History citalopram 20 mg tablet 1 tab PO DAILY 07/21/21 08/28/21 07/21/21 08:00 History pramipexole 0.25 mg tablet 1 tab PO BID 07/21/21 08/28/21 07/21/21 08:00 History pregabalin 50 mg capsule (Lyrica) 1 cap PO 5XD 07/21/21 08/28/21 07/21/21 08:00 History Exam Exam Date and Time: September 25, 2021 1223 Height,Weight and Vital Signs: Height 5 ft 2 in Weight 46.72 kg Last Vital Signs Temp 98.2 F 09/25/21 12:12 Pulse 50 09/25/21 12:12 Resp 18 09/25/21 12:12 BP 113/37 L 09/25/21 12:12 Pulse Ox 96 09/25/21 12:12 Pertinent Lab Results Pertinent Lab Results: Laboratory Tests 09/17/21 09/17/21 09/17/21 21:28 21:56 21:56 WBC 9.7 RBC 4.04 L Hgb 13.0 Hct 38.1 MCV 94.3 MCH 32.2 MCHC 34.1 RDW 13.1 Plt Count 311 MPV 11.2 Immature Gran % (Auto) 0.2 Neut % (Auto) 53.0 Lymph % (Auto) 35.6 [place] % (Auto) 8.8 Eos % (Auto) 2.0 Baso % (Auto) 0.4 Lymph # (Auto) 3.5 [place] # (Auto) 0.9 Eos # (Auto) 0.2 Baso # (Auto) 0.0 Abs Immat Gran (auto) 0.02 Absolute Neuts (auto) 5.1 Absolute Nucleated RBC 0.000 Nucleated RBC % (auto) 0.0 Sodium 141 Potassium 3.8 Chloride 97 Carbon Dioxide 35 H Anion Gap 13 BUN 21 H D Creatinine 0.86 Estim Creat Clear Calc 43.4 Estimated GFR > 60 Random Glucose 132 H Estimat Average Glucose Hemoglobin A1c % Calcium 9.4 Magnesium Total Bilirubin 0.3 Direct Bilirubin AST 40 H D ALT 28 Alkaline Phosphatase 120 H Total Protein 6.8 Albumin 4.2 Triglycerides Cholesterol LDL Cholesterol, Calc HDL Cholesterol Vitamin B12 Folate TSH 3.04 Free T4 1.01 Urine Opiates Screen Urine Fentanyl Screen Ur Barbiturates Screen Ur Phencyclidine Scrn Ur Amphetamines Screen U Benzodiazepines Scrn [place] Urine Cocaine Screen U Marijuana (THC) Screen Ethyl Alcohol COVID-19 ([facility]) Negative COVID-[place] See Note 09/17/21 09/18/21 09/18/21 21:56 08:33 08:33 WBC RBC Hgb Hct MCV MCH MCHC RDW Plt Count MPV Immature Gran % (Auto) Neut % (Auto) Lymph % (Auto) [place] % (Auto) Eos % (Auto) Baso % (Auto) Lymph # (Auto) [place] # (Auto) Eos # (Auto) Baso # (Auto) Abs Immat Gran (auto) Absolute Neuts (auto) Absolute Nucleated RBC Nucleated RBC % (auto) Sodium Potassium Chloride Carbon Dioxide Anion Gap BUN Creatinine Estim Creat Clear Calc Estimated GFR Random Glucose Estimat Average Glucose 126 Hemoglobin A1c % 6.0 Calcium Magnesium 1.9 Total Bilirubin Direct Bilirubin AST ALT Alkaline Phosphatase Total Protein Albumin Triglycerides 71 Cholesterol 201 LDL Cholesterol, Calc 140 HDL Cholesterol 47 Vitamin B12 Folate TSH Free T4 Urine Opiates Screen Urine Fentanyl Screen Ur Barbiturates Screen Ur Phencyclidine Scrn Ur Amphetamines Screen U Benzodiazepines Scrn [place] Urine Cocaine Screen U Marijuana (THC) Screen Ethyl Alcohol < 10 COVID-19 ([facility]) COVID-[place] 09/18/21 09/18/21 09/19/21 08:33 18:45 09:12 WBC RBC Hgb Hct MCV MCH MCHC RDW Plt Count MPV Immature Gran % (Auto) Neut % (Auto) Lymph % (Auto) [place] % (Auto) Eos % (Auto) Baso % (Auto) Lymph # (Auto) [place] # (Auto) Eos # (Auto) Baso # (Auto) Abs Immat Gran (auto) Absolute Neuts (auto) Absolute Nucleated RBC Nucleated RBC % (auto) Sodium Potassium Chloride Carbon Dioxide Anion Gap BUN Creatinine Estim Creat Clear Calc Estimated GFR Random Glucose Estimat Average Glucose Hemoglobin A1c % Calcium Magnesium Total Bilirubin 0.6 Direct Bilirubin < 0.2 AST 20 D ALT 19 Alkaline Phosphatase 84 D Total Protein 5.9 L Albumin 3.6 Triglycerides Cholesterol LDL Cholesterol, Calc HDL Cholesterol Vitamin B12 577 Folate 7.0 TSH Free T4 Urine Opiates Screen Not Detected Urine Fentanyl Screen Not Detected Ur Barbiturates Screen Not Detected Ur Phencyclidine Scrn Not Detected Ur Amphetamines Screen Not Detected U Benzodiazepines Scrn Not Detected [place] Urine Cocaine Screen Not Detected U Marijuana (THC) Screen POSITIVE H Ethyl Alcohol COVID-19 ([facility]) COVID-19 [facility] Com 09/23/21 09/23/21 09/24/21 07:59 07:59 09:31 WBC RBC Hgb Hct MCV MCH MCHC RDW Plt Count MPV Immature Gran % (Auto) Neut % (Auto) Lymph % (Auto) [place] % (Auto) Eos % (Auto) Baso % (Auto) Lymph # (Auto) [place] # (Auto) Eos # (Auto) Baso # (Auto) Abs Immat Gran (auto) Absolute Neuts (auto) Absolute Nucleated RBC Nucleated RBC % (auto) Sodium 138 Potassium 5.0 D Chloride 107 Carbon Dioxide 29 Anion Gap 7 L BUN 9 D Creatinine 0.72 Estim Creat Clear Calc 51.8 Estimated GFR > 60 Random Glucose Estimat Average Glucose Hemoglobin A1c % Calcium Magnesium Total Bilirubin Direct Bilirubin AST ALT Alkaline Phosphatase Total Protein Albumin Triglycerides Cholesterol LDL Cholesterol, Calc HDL Cholesterol Vitamin B12 Folate TSH Free T4 Urine Opiates Screen Urine Fentanyl Screen Ur Barbiturates Screen Ur Phencyclidine Scrn Ur Amphetamines Screen U Benzodiazepines Scrn [place] 1.07 Urine Cocaine Screen U Marijuana (THC) Screen Ethyl Alcohol COVID-19 ([facility]) Negative COVID-19 Clin Com See Note Airway Mallampati Class: II TM Dist: >3cm Neck ROM: Full Loose/Missing/Broken Teeth: No Heart: RRR Lungs: CTA Assessment and Plan Assessment Anesthesia Assessment: Anesthesia Plan Discussed and Chart Reviewed Final Anesthetic Review History of Problems with Anesthesia: No NPO: Yes ASA Class: III Final Preanesthetic Review: Meds/Allgs Chart Reviewed, Consent Obtained/Reviewed and Anes Risks/Benef Reviewed Patient Risk: Low Procedure Risk: Intermediate Anesthetic Plan Anesthetic Plan: GA Disposition: Standard PACU
--- NOTE | 2021-09-25 12:25 | MHC.SHP ---
Pre-Procedural Eval Section A Date of Service: 09/25/21 The patient is an INPATIENT: Yes Changes since office visit: Yes New Medical Problems, Yes Changes in Medication and Yes Patient answered all questions; No Cold of Flu in the past 2 weeks The History & Physical has been completed within 30 days and I have reviewed it.: Yes Section B Chief Complaint: Bipolar Depression, Med Non-Adherence Allergies: Allergies Allergy/AdvReac Type Severity Reaction Status Date / Time olanzapine [From ZYPREXA] AdvReac Intermediate RLS Verified 08/28/21 10:29 symptoms atypical antipsychotics AdvReac Severe This class Uncoded 02/06/21 09:37 appears to potentiate RLS/Akathesia Plan I have reviewed the history and physical and performed a pertinent physical examination on my patient. No changes have occurred unless specified.
--- NOTE | 2021-09-25 12:26 | HO.ECTPROC ---
ECT Procedure Note Diagnosis/Treatment Date of Service: 09/26/21 Diagnosis: Bipolar disorder Current Treatment Number: 1 Treatment: Series Interval Clinical Notes: pt quite depressed anxious ruminating ECT Settings Device: THYMATRON DGx Program/Pulse Width: 0.50 Energy Percent: 100 Seizure Duration By EEG (in seconds): 41 Medications Administration General Anesthetic: Etomidate (14) Muscle Relaxant: Succinylcholine (100) Ancillary Medications Analgesics: Torodol - Pre ECT Anti-emetics: Zofran - Pre ECT Miscillaneous Medications: Propofol Airway Management Airway Management: Bag Mask Ventilation Treatment Recommendations Notes: pt required robinal atropine post tx use robinal or atropine prior to next tx had flumazenil pre tx Pt Tolerated Procedure w/o Issue: No
[2021-09-25] MEDS: Atorvastatin Calcium 20 MG TABLET PO (14:17)
[2021-09-25] MEDS: Pregabalin 50 MG CAPSULE PO ×2 (16:26→20:09)
[2021-09-25] MEDS: Lithium Carbonate ER 450 MG TABLET.ER PO (20:09)
[2021-09-25] MEDS: traZODone HCL 100 MG TABLET PO (20:09)
[2021-09-26 06:00] VITALS: BP 83/56; PULSE 65; RESP 16; TEMP 36.3; O2SAT 95
[2021-09-26] MEDS: Pramipexole Di-HCL 0.25 MG TABLET PO ×4 (06:27→20:41)
[2021-09-26] MEDS: Levothyroxine Sodium 75 MCG TABLET PO (06:27)
[2021-09-26] MEDS: Pregabalin 50 MG CAPSULE PO ×4 (09:05→20:40)
[2021-09-26] MEDS: Atorvastatin Calcium 20 MG TABLET PO (09:05)
--- NOTE | 2021-09-26 11:51 | P.PNPSI_ITS ---
Subjective Subjective Date of Service: 09/26/21 Reason For Visit: Bipolar Depression, Med Non-Adherence Interim History: Jaja discussed the loss of her mother, and how difficult it was with her grand- daughter over the past year (son who -his daughter). Discussed her lack of control in family matters-children's addictions (younger son is in full recovery for which she is very proud of), grand-daughter's choice to leave nursing school and have a child, other children's life choices, mother's illness (05/05-06/04) and focus on dates of loss, dates of celebration and how they are close together creating ambivalence in feeling and confusion in many ways regarding how to act, what to celebrate and what to grieve. Discussed this lack of control as universal for all and focused on what her choice is-to celebrate family-in loss or in anniversary, concepts of letting go, focusing on self-care, her relationship with her and watching the family grow and develop, with awareness of extent of powerlessness and concept of free choice. Also discussed the loss of her therapist-one of the best she has had, one of the most supportive- he just fell off the face of the earth . Discussed pramipexole dosing with pt and Amirah Baez RN-will increase to tid 0.25 mg 0800, 1300, 2100 as RLS sx breaking through. Will monitor for overmedication sx. Pt wanting to discharge, hoping ECT course is quick. Medication Compliance: Yes Side effects from medications: No Attending Groups: Yes Review of Systems Acute medical concerns: No Medical Review of Systems: unchanged Review of Systems Reports behavioral changes and Reports restless legs Psychiatric: Reports anxiety, Reports behavioral changes, Reports depression, Reports difficulty concentrating, Reports hopelessness, Reports irritability, Reports anhedonia, Reports mood swings, Reports panic attacks, Reports paranoia and Reports suicidal ideation ( no ) Mental Status Exam Mental Status Exam Narrative: Alert, oriented, well engaged, able to laugh, reflect and process feelings with insight Less agitated today than seen earlier in the week. Appears fatigued, speech clear, full range of volume, intensity Affect flat, mood is depressed and anxious Patient Appearance: Fatigued Patient Orientation: Person, Place, Time and Situation Level of Consciousness: Alert Patient Behavior: Appropriate, Talkative, Cooperative, Restless, Anxious, Fatigued, Distractible, Good Eye Contact and Impulsive (talks with peer @ charging the door redirected with effect) Mood Description: Anxious, Labile and Apprehensive Affect Description: Labile Patient Cognition Impaired: No Ability to Follow Directions: Good Speech Pattern: Spontaneous Speech Memory Description: Intact Hallucinations: None Delusions: Not Present Perceptual Disturbances: Depersonalization and Derealization Thought Process: Distracted and Rumination Thought Content: positive for [place], positive for Circumstantial, positive for Goal Oriented, positive for Perseveration and positive for Suicidal Ideation (denies) Depressive Symptoms: Increased Anxiety, Increased Irritability, Loss of Int. in Activity, Feelings of Worthlessness, Low Self Esteem and Difficulty Concentrat ing Abnormal Motor Activity Signs and Symptoms: Restlessness Judgement: Fair Diagnostics Vital Signs (24Hr): Vital Signs - 24 hr 09/25/21 12:12 09/25/21 13:00 09/25/21 13:05 Temperature 98.2 F 99.0 F Pulse Rate 50 93 94 Respiratory Rate 18 18 18 Blood Pressure 113/37 L 135/55 L 129/64 Pulse Oximetry 96 99 96 09/25/21 13:10 09/25/21 13:15 09/25/21 13:30 Temperature 98.0 F Pulse Rate 89 88 77 Respiratory Rate 18 17 18 Blood Pressure 121/50 L 115/62 105/62 Pulse Oximetry 99 98 99 09/25/21 14:07 09/25/21 18:00 09/26/21 06:00 Temperature 98.4 F 96.8 F 97.4 F Pulse Rate 75 61 65 Respiratory Rate 16 16 16 Blood Pressure 99/59 L 92/44 L 83/56 L Pulse Oximetry 97 96 95 BMI result Body Mass Index 18.8 Labs Results: 09/17/21 21:56 09/23/21 07:59 Medications Medications Current Medications Acetaminophen (Acetaminophen 325 Mg Tablet) 650 mg PO Q6H PRN PRN Reason: Headache/Pain Mild Scale (1-3) Al Hydroxide/Mg Hydroxide (Magnesium Hydrox/Alum Hydrox 30 Ml Oral.Susp) 30 ml PO Q6H PRN PRN Reason: Heartburn/Nausea Albuterol Sulfate (Albuterol Sulfate 90 Mcg 8 Gm Inhaler) 2 puff INHALE RQ6H PRN PRN Reason: asthma Atorvastatin Calcium (Atorvastatin Calcium 20 Mg Tablet) 20 mg PO DAILY [facility] Last Admin: 09/26/21 09:05 Dose: 20 mg Documented by: Clonidine HCl (Clonidine Hcl 0.1 Mg Tablet) 0.1 mg PO TID PRN; Protocol PRN Reason: anxiety Last Admin: 09/24/21 10:09 Dose: 0.1 mg Documented by: Levothyroxine Sodium (Levothyroxine Sodium 75 Mcg Tablet) 75 mcg PO DAILY@0600 [facility] Last Admin: 09/26/21 06:27 Dose: 75 mcg Documented by: [place] Carbonate ([place] Carbonate Er 450 Mg Tablet.Er) 450 mg PO MoWeFrSa@2100 [facility] Last Admin: 09/25/21 20:09 Dose: 450 mg Documented by: Lorazepam (Lorazepam 0.5 Mg Tablet) 0.5 mg PO TID PRN PRN Reason: anxiety(if clonidine not work) Last Admin: 09/25/21 23:38 Dose: 0.5 mg Documented by: Magnesium Hydroxide (Milk Of Magnesia 30 Ml Oral.Susp) 30 ml PO DAILY PRN PRN Reason: Constipation Nicotine Polacrilex (Nicotine Polacrilex Lozenge 4 Mg Lozenge) 4 mg BUCCAL Q2H PRN PRN Reason: Nicotine Cravings Pramipexole Dihydrochloride (Pramipexole Di-Hcl 0.25 Mg Tablet) 0.25 mg PO BID@0800,1500 [facility] Last Admin: 09/26/21 06:27 Dose: 0.25 mg Documented by: Pregabalin (Pregabalin 50 Mg Capsule) 50 mg PO QID [facility] Last Admin: 09/26/21 09:05 Dose: 50 mg Documented by: Trazodone HCl (Trazodone Hcl 100 Mg Tablet) 100 mg PO BEDTIME PRN PRN Reason: insomnia Last Admin: 09/25/21 20:09 Dose: 100 mg Documented by: Allergies Allergies Allergy/AdvReac Type Severity Reaction Status Date / Time olanzapine [From ZYPREXA] AdvReac Intermediate RLS Verified 08/28/21 10:29 symptoms atypical antipsychotics AdvReac Severe This class Uncoded 02/06/21 09:37 appears to potentiate RLS/Akathesia Assessment & Plan Assessment & Plan (1) Depression: Status: Acute Code(s): F32.A - Depression, unspecified (2) Hypothyroidism: Status: Acute Code(s): E03.9 - Hypothyroidism, unspecified (3) RLS (restless legs syndrome): Status: Acute Code(s): G25.81 - Restless legs syndrome (4) COPD (chronic obstructive pulmonary disease): Status: Acute Code(s): J44.9 - Chronic obstructive pulmonary disease, unspecified Plan Patient is a 60-year-old female with a history of Bipolar Type 2 disorder (possibly OCD) who presents for worsening depression in the face of her mother's this past May 2021 and going off her medications a few weeks ago. On admission patient's depression is very severe and compromising her ability to function on her own. Patient wants to get back on her current medication regimen which she says has been helpful in the past.? She agrees to mild increase in lithium since she has become overwhelmed with sadness and depression beyond normal grieving.? Patient also wants to get it therapist as her current ther apist has been very unreliable in getting back to her and she feels the need to process her feelings about her mother's .? Patient is experiencing hopeless feelings however denies any active SI, intent or plans.? and family are supportive. Patient irritable over the weekend Patient remains irritable today with manual writer not wanting to talk; however she did discuss ECT with charge nurse and is not ready to discharge. Although patient is normally on citalopram in the community and escitalopram was started as a replacement, it is possible that patient could be triggered by escitalopram while lithium is becoming therapeutic, and account for patient's irritable at [facility].? Will DC escitalopram for now 09/22 patient no longer irritable, cooperative calm and friendly.? Remains depressed and anxious, no SI.? It is unclear if patient's irritability resolved because she feels better about relationship with or because escitalopram was discontinued (less likely given the fact that she is normally on citalopram).? Patient is interested in ECT and would like to continue discussing 09/23 patient remains depressed and wants ECT; family meeting had with patient and social media marketer; family asked questions and discussed ECT and agree with patient is a reasonable plan 09/24-continue w/ tx plan 09/25 She agreed to try clonidine 1st and then Ativan if she still had anxiety. Also discussed medication regimen and patient feels that her citalopram was never that helpful. She wonders if when ECT is done, and [place] increased to 600 mg q.h.s. if this will be sufficient for her depression. To that and she does not want to restart SSRI at this time. MOCA: (prior to ECT) Plan: CV? Q 15 minute checks Patient wants to proceed with ECT which is scheduled for this Tuesday hospitalist consult ordered -Increased to Clonidine 0.1mg BID for anxiety -added atiavn 0.5 mg bid prn for anxiety but for pt to try clonidine first -LOWERed to lithium ER 450 mg daily (600mg brought patient to therapeutic level however lithium plus ECT can increase risk for memory issues) -DC lithium night before ECT -levothyroxine -DC Escitalopram: Initially started escitalopram; will discontinue for now out of an abundance of caution that this medication may have triggered some irritability; Patient on citalopram 20mg in the community, however not on form ulary; patient would like to stay off SSRI for now hoping that lithium will be sufficient for depression at the increased dose of 600 mg Regarding medications patient says -gabapentin worsens her restless leg -Benadryl is activating not sedating -Antipsychotics and general do not work well with her 60-year-old female with multiple comorbidities, came to the hospital because of depression, consult was called for ECT clearance. As per the patient she did not had any CT before. 1. Depression: Patient needs ECT as per psych. EKG seems for similar to before. Patient denies any cardiac or any neurological issues. Electrolytes seems fine no absolute contraindications to ECT and today's evaluation.? Continue psych medications as per psych. 2. Hypothyroidism: Continue thyroid replacement. 3.COPD continue home COPD medications 4.RLS: Continue ropinirole. Above management discussed with psych in detail length. Please call us for any further questions. 09/26/21- Weekend coverage -Increase Pramipexole to 0.25 mg 0800, 1300, 2100. Monitor for SE. -Continue current plan I spent 25 minutes with the patient and/or on the patient floor today, greater than?50% of which was spent counseling/coordinating care. Patient educated on: therapeutic strategies Informed Consent: understands Reason for contiued inpatient stay Substantial Risk for: inability to function and rapid decompensation
[2021-09-26 18:00] VITALS: BP 96/50; PULSE 57; TEMP 36.9; O2SAT 95
[2021-09-26] MEDS: Lithium Carbonate ER 450 MG TABLET.ER PO (20:40)
[2021-09-26] MEDS: traZODone HCL 100 MG TABLET PO (20:40)
[2021-09-26] MEDS: LORazepam 0.5 MG TABLET PO (20:53)
[2021-09-27] MEDS: Pramipexole Di-HCL 0.25 MG TABLET PO ×2 (05:54→15:59)
[2021-09-27] MEDS: Levothyroxine Sodium 75 MCG TABLET PO (05:54)
[2021-09-27 06:05] VITALS: BP 91/55; PULSE 73; RESP 16; TEMP 36.6; O2SAT 96
[2021-09-27] MEDS: Atorvastatin Calcium 20 MG TABLET PO (08:55)
[2021-09-27] MEDS: Pregabalin 50 MG CAPSULE PO ×3 (08:55→17:16)
[2021-09-27 09:00] VITALS: BP 97/61; PULSE 59; TEMP 36.6
--- NOTE | 2021-09-27 09:23 | HO.PSYCHPN ---
Subjective Subjective Date of Service: 09/27/21 Reason For Visit: Bipolar Depression, Med Non-Adherence Interim History: Why can't I just do this as an outpatient? I don't want to be here. I want to smoke. No, I hate the patch, gum, and lozengers Why do you need to watch me for side effects after ECT? Anxious, perseverative, spent the day looking out the window to the parking lot. Nicotine withdrawal experienced, however, pt refuses replacement of any kind. Review of the need for monitoring post ECT in the initial treatments. I am going to get discharged tomorrow-one way or another. Pt discussed wanting to adopt her [id number] her inspiring, intelligent and creative. Some energy and improvement-socializing, approaching team and peers at times. At times depressed, withdrawn, but with some increase in clarity and interaction. Walking with room-mate, telling some stories about her grandchildren, some smiling at times. Medication Compliance: Yes Side effects from medications: No Attending Groups: Intermittent Review of Systems Acute medical concerns: No Medical Review of Systems: unchanged Review of Systems Reports behavioral changes and Reports restless legs Psychiatric: Reports anxiety, Reports behavioral changes, Reports depression, Reports difficulty concentrating, Reports hopelessness, Reports irritability, Reports anhedonia, Reports mood swings, Reports panic attacks, Reports paranoia and Reports suicidal ideation ( no ) Mental Status Exam Mental Status Exam Narrative: Alert, oriented, well engaged, able to laugh, reflect and process feelings with insight Less agitated today than seen earlier in the week. Appears fatigued, speech clear, full range of volume, intensity Affect flat, mood is depressed and anxious Patient Appearance: Fatigued Patient Orientation: Person, Place, Time and Situation Level of Consciousness: Alert Patient Behavior: Appropriate, Talkative, Cooperative, Restless, Anxious, Fatigued, Distractible, Good Eye Contact and Impulsive (talks with peer @ charging the door redirected with effect) Mood Description: Anxious, Labile and Apprehensive Affect Description: Labile Patient Cognition Impaired: No Ability to Follow Directions: Good Speech Pattern: Spontaneous Speech Memory Description: Intact Hallucinations: None Delusions: Not Present Perceptual Disturbances: Depersonalization and Derealization Thought Process: Distracted and Rumination Thought Content: positive for [place], positive for Circumstantial, positive for Goal Oriented, positive for Perseveration and positive for Suicidal Ideation (denies) Depressive Symptoms: Increased Anxiety, Increased Irritability, Loss of Int. in Activity, Feelings of Worthlessness, Low Self Esteem and Difficulty Concentrating Abnormal Motor Activity Signs and Symptoms: Restlessness Judgement: Fair Diagnostics Vital Signs (24Hr): Vital Signs - 24 hr 09/26/21 18:00 09/27/21 06:05 Temperature 98.4 F 98 F Pulse Rate 57 73 Respiratory Rate 16 Blood Pressure 96/50 L 91/55 L Pulse Oximetry 95 96 BMI result Body Mass Index 18.8 Labs Results: 09/17/21 21:56 09/23/21 07:59 Medications Medications Current Medications Acetaminophen (Acetaminophen 325 Mg Tablet) 650 mg PO Q6H PRN PRN Reason: Headache/Pain Mild Scale (1-3) Al Hydroxide/Mg Hydroxide (Magnesium Hydrox/Alum Hydrox 30 Ml Oral.Susp) 30 ml PO Q6H PRN PRN Reason: Heartburn/Nausea Albuterol Sulfate (Albuterol Sulfate 90 Mcg 8 Gm Inhaler) 2 puff INHALE RQ6H PRN PRN Reason: asthma Atorvastatin Calcium (Atorvastatin Calcium 20 Mg Tablet) 20 mg PO DAILY [facility] Last Admin: 09/27/21 08:55 Dose: 20 mg Documented by: Clonidine HCl (Clonidine Hcl 0.1 Mg Tablet) 0.1 mg PO TID PRN; Protocol PRN Reason: anxiety Last Admin: 09/24/21 10:09 Dose: 0.1 mg Documented by: Levothyroxine Sodium (Levothyroxine Sodium 75 Mcg Tablet) 75 mcg PO DAILY@0600 [facility] Last Admin: 09/27/21 05:54 Dose: 75 mcg Documented by: [place] Carbonate ([place] Carbonate Er 450 Mg Tablet.Er) 450 mg PO MoWeFrSa@2100 [facility] Last Admin: 09/26/21 20:40 Dose: 450 mg Documented by: Lorazepam (Lorazepam 0.5 Mg Tablet) 0.5 mg PO TID PRN PRN Reason: anxiety(if clonidine not work) Last Admin: 09/26/21 20:53 Dose: 0.5 mg Documented by: Magnesium Hydroxide (Milk Of Magnesia 30 Ml Oral.Susp) 30 ml PO DAILY PRN PRN Reason: Constipation Nicotine Polacrilex (Nicotine Polacrilex Lozenge 4 Mg Lozenge) 4 mg BUCCAL Q2H PRN PRN Reason: Nicotine Cravings Pramipexole Dihydrochloride (Pramipexole Di-Hcl 0.25 Mg Tablet) 0.25 mg PO TID@0800,1500,2100 [facility] Last Admin: 09/27/21 05:54 Dose: 0.25 mg Documented by: Pregabalin (Pregabalin 50 Mg Capsule) 50 mg PO QID [facility] Last Admin: 09/27/21 08:55 Dose: 50 mg Documented by: Trazodone HCl (Trazodone Hcl 100 Mg Tablet) 100 mg PO BEDTIME PRN PRN Reason: insomnia Last Admin: 09/26/21 20:40 Dose: 100 mg Documented by: Allergies Allergies Allergy/AdvReac Type Severity Reaction Status Date / Time olanzapine [From ZYPREXA] AdvReac Intermediate RLS Verified 08/28/21 10:29 symptoms atypical antipsychotics AdvReac Severe This class Uncoded 02/06/21 09:37 appears to potentiate RLS/Akathesia Assessment & Plan Assessment & Plan (1) Depression: Status: Acute Code(s): F32.A - Depression, unspecified (2) Hypothyroidism: Status: Acute Code(s): E03.9 - Hypothyroidism, unspecified (3) RLS (restless legs syndrome): Status: Acute Code(s): G25.81 - Restless legs syndrome (4) COPD (chronic obstructive pulmonary disease): Status: Acute Code(s): J44.9 - Chronic obstructive pulmonary disease, unspecified Plan Patient is a 60-year-old female with a history of Bipolar Type 2 disorder (possibly OCD) who presents for worsening depression in the face of her mother's this past May 2021 and going off her medications a few weeks ago. On admission patient's depression is very severe and compromising her ability to function on her own. Patient wants to get back on her current medication regimen which she says has been helpful in the past.? She agrees to mild increase in lithium since she has become overwhelmed with sadness and depression beyond normal grieving.? Patient also wants to get it therapist as her current therapist has been very unreliable in getting back to her and she feels the need to process her feelings about her mother's .? Patient is experiencing hopeless feelings however denies any active SI, intent or plans.? and family are supportive. Patient irritable over the weekend Patient remains irritable today with senior grant writer not wanting to talk; however she did discuss ECT with charge nurse and is not ready to discharge. Although patient is normally on citalopram in the community and escitalopram was started as a replacement, it is possible that patient could be triggered by escitalopram while lithium is becoming therapeutic, and account for patient's irritable at [facility].? Will DC escitalopram for now 09/22 patient no longer irritable, cooperative calm and friendly.? Remains depressed and anxious, no SI.? It is unclear if patient's irritability resolved because she feels better about relationship with or because escitalopram was discontinued (less likely given the fact that she is normally on citalopram).? Patient is interested in ECT and would like to continue discussing 09/23 patient remains depressed and wants ECT; family meeting had with patient and geriatric social work professor; family asked questions and discussed ECT and agree with patient is a reasonable plan 09/24-continue w/ tx plan 09/25 She agreed to try clonidine 1st and then Ativan if she still had anxiety. Also discussed medication regimen and patient feels that her citalopram was never that helpful. She wonders if when ECT is done, and [place] increased to 600 mg q.h.s. if this will be sufficient for her depression. To that and she does not want to restart SSRI at this time. MOCA: (prior to ECT) Plan: CV? Q 15 minute checks Patient wants to proceed with ECT which is scheduled for this Tuesday hospitalist consult ordered -Increased to Clonidine 0.1mg BID for anxiety -added atiavn 0.5 mg bid prn for anxiety but for pt to try clonidine first -LOWERed to lithium ER 450 mg daily (600mg brought patient to therapeutic level however lithium plus ECT can increase risk for memory issues) -DC lithium night before ECT -levothyroxine -DC Escitalopram: Initially started escitalopram; will discontinue for now out of an abundance of caution that this medication may have triggered some irritability; Patient on citalopram 20mg in the community, however not on formulary; patient would like to stay off SSRI for now hoping that lithium will be sufficient for depression at the increased dose of 600 mg Regarding medications patient says -gabapentin worsens her restless leg -Benadryl is activating not sedating -Antipsychotics and general do not work well with her 60-year-old female with multiple comorbidities, came to the hospital because of depression, consult was called for ECT clearance. As per the patient she did not had any CT before. 1. Depression: Patient needs ECT as per psych. EKG seems for similar to before. Patient denies any cardiac or any neurological issues. Electrolytes seems fine no absolute contraindications to ECT and today's evaluation.? Continue psych medications as per psych. 2. Hypothyroidism: Continue thyroid replacement. 3.COPD continue home COPD medications 4.RLS: Continue ropinirole. Above management discussed with psych in detail length. Please call us for any further questions. 09/26/21- Weekend coverage -Increase Pramipexole to 0.25 mg 0800, 1300, 2100. Monitor for SE. -Continue current plan 09/27/21-Weekend coverage -Continue current plan -Pt is pushing to transfer to OP ECT I spent 25 minutes with the patient and/or on the patient floor today, greater than?50% of which was spent counseling/coordinating care. Patient educated on: therapeutic strategies Informed Consent: understands Reason for contiued inpatient stay Substantial Risk for: inability to function and rapid decompensation
[2021-09-27] MEDS: LORazepam 0.5 MG TABLET PO (17:16)
[2021-09-27 21:00] VITALS: BP 91/54; PULSE 70; TEMP 37
[2021-09-28] VITALS (10 sets, daily range): BP systolic 89–129; BP diastolic 37–72; PULSE 52–88; RESP 16–20; TEMP 36.8–37; O2SAT 96–100
--- NOTE | 2021-09-28 06:45 | HO.ANESPROP2 ---
[facility] Active Problems Active Problems: All Active Problems (Updated 09/17/21 @ 21:43 by ELISE Sims) Depression (Acute) Complicated grieving (Acute) Sinusitis (Acute) Cocaine use disorder (Acute) Substance induced mood disorder (Acute) Osteoporosis (Acute) Fracture of proximal end of left humerus (Acute) Shoulder pain (Acute) Hypothyroidism (Acute) Vaginal dryness, menopausal (Acute) Bipolar II disorder (Acute) RLS (restless legs syndrome) (Acute) COPD (chronic obstructive pulmonary disease) (Acute) HLD (hyperlipidemia) (Acute) Past Medical History Medical History Bipolar II disorder COPD (chronic obstructive pulmonary disease) HLD (hyperlipidemia) Hypothyroidism Osteoporosis RLS (restless legs syndrome) Family History Family History Mother No problems noted. Father No problems noted. Son Substance use disorder Surgical History Surgical History H/O: hysterectomy History of Problems with Anesthesia: No Social History Social History Household Members: Spouse and Other Household Members Other:: adult son Housing: House Do you presently have visiting nurse or other home services: No Alcohol intake: never Patient Tobacco Use Status: Current everyday Tobacco user Tobacco use type: Cigarette Cigarettes Per Day: 1 Smoked in Last 30 Days: Yes e-Cigarette/Vaping Use: Currently Using Patient Interested in Nicotine Replacement: No Patient Given Instructions on How to Stop Smoking: No Second Hand Smoke Exposure: No Use of substances other than those prescribed or required for medical reasons: No Substance Use Type: Marijuana and Prescription Drugs Last Used Substance: Unknown Currently Displaying Signs/Symptoms of Drug Intoxication Withdrawal: No Advance Directives: No Advance Directives Information Provided: Yes Guardian: No Do you have thoughts of harming others: None Do you have a plan to hurt others: No Plan Recently lost weight without trying: Unsure Nutrition Risks: No Nutritional Risk Patient : No : No Poor oral hygiene: No service: No Current occupational status: employed Sexual orientation: Straight/Heterosexual Meds Allergies Allergy/AdvReac Type Severity Reaction Status Date / Time olanzapine [From ZYPREXA] AdvReac Intermediate RLS Verified 08/28/21 10:29 symptoms atypical antipsychotics AdvReac Severe This class Uncoded 02/06/21 09:37 appears to potentiate RLS/Akathesia Active Medications: Current Medications Acetaminophen (Acetaminophen 325 Mg Tablet) 650 mg PO Q6H PRN PRN Reason: Headache/Pain Mild Scale (1-3) Al Hydroxide/Mg Hydroxide (Magnesium Hydrox/Alum Hydrox 30 Ml Oral.Susp) 30 ml PO Q6H PRN PRN Reason: Heartburn/Nausea Albuterol Sulfate (Albuterol Sulfate 90 Mcg 8 Gm Inhaler) 2 puff INHALE RQ6H PRN PRN Reason: asthma Atorvastatin Calcium (Atorvastatin Calcium 20 Mg Tablet) 20 mg PO DAILY [facility] Last Admin: 09/27/21 08:55 Dose: 20 mg Documented by: Clonidine HCl (Clonidine Hcl 0.1 Mg Tablet) 0.1 mg PO TID PRN; Protocol PRN Reason: anxiety Last Admin: 09/24/21 10:09 Dose: 0.1 mg Documented by: Levothyroxine Sodium (Levothyroxine Sodium 75 Mcg Tablet) 75 mcg PO DAILY@0600 [facility] Last Admin: 09/27/21 05:54 Dose: 75 mcg Documented by: [place] Carbonate ([place] Carbonate Er 450 Mg Tablet.Er) 450 mg PO MoWeFrSa@2100 [facility] Last Admin: 09/26/21 20:40 Dose: 450 mg Documented by: Lorazepam (Lorazepam 0.5 Mg Tablet) 0.5 mg PO TID PRN PRN Reason: anxiety(if clonidine not work) Last Admin: 09/27/21 17:16 Dose: 0.5 mg Documented by: Magnesium Hydroxide (Milk Of Magnesia 30 Ml Oral.Susp) 30 ml PO DAILY PRN PRN Reason: Constipation Nicotine Polacrilex (Nicotine Polacrilex Lozenge 4 Mg Lozenge) 4 mg BUCCAL Q2H PRN PRN Reason: Nicotine Cravings Pramipexole Dihydrochloride (Pramipexole Di-Hcl 0.25 Mg Tablet) 0.25 mg PO TID@0800,1500,2100 [facility] Last Admin: 09/27/21 22:54 Dose: Not Given Documented by: Pregabalin (Pregabalin 50 Mg Capsule) 50 mg PO QID [facility] Last Admin: 09/27/21 22:54 Dose: Not Given Documented by: Trazodone HCl (Trazodone Hcl 100 Mg Tablet) 100 mg PO BEDTIME PRN PRN Reason: insomnia Last Admin: 09/26/21 20:40 Dose: 100 mg Documented by: Home Medications Medication Instructions Recorded Confirmed Last Taken Type cholecalciferol (vitamin D3) 25 25 mcg PO DAILY 06/15/20 08/28/21 07/21/21 08:00 History mcg (1,000 unit) tablet fluticasone 113 mcg-salmeterol 14 1 puff PO BID 06/15/20 08/28/21 Unknown History mcg/actuation breath activated powdr ropinirole 0.5 mg tablet 0.5 mg PO BEDTIME 06/15/20 08/28/21 Unknown History pramipexole 0.5 mg tablet 0.5 mg PO BEDTIME 07/21/20 08/28/21 Unknown History atorvastatin 20 mg tablet 1 tab PO DAILY 07/21/21 08/28/21 07/21/21 08:00 History citalopram 20 mg tablet 1 tab PO DAILY 07/21/21 08/28/21 07/21/21 08:00 History pramipexole 0.25 mg tablet 1 tab PO BID 07/21/21 08/28/21 07/21/21 08:00 History pregabalin 50 mg capsule (Lyrica) 1 cap PO 5XD 07/21/21 08/28/21 07/21/21 08:00 History Exam Exam Date and Time: September 28, 2021 0645 Height,Weight and Vital Signs: Height 5 ft 2 in Weight 46.72 kg Last Vital Signs Temp 98.6 F 09/28/21 06:28 Pulse 52 09/28/21 06:28 Resp 16 09/28/21 06:28 BP 117/37 L 09/28/21 06:28 Pulse Ox 98 09/28/21 06:28 Pertinent Lab Results Pertinent Lab Results: Laboratory Tests 09/17/21 09/17/21 09/17/21 21:28 21:56 21:56 WBC 9.7 RBC 4.04 L Hgb 13.0 Hct 38.1 MCV 94.3 MCH 32.2 MCHC 34.1 RDW 13.1 Plt Count 311 MPV 11.2 Immature Gran % (Auto) 0.2 Neut % (Auto) 53.0 Lymph % (Auto) 35.6 [place] % (Auto) 8.8 Eos % (Auto) 2.0 Baso % (Auto) 0.4 Lymph # (Auto) 3.5 [place] # (Auto) 0.9 Eos # (Auto) 0.2 Baso # (Auto) 0.0 Abs Immat Gran (auto) 0.02 Absolute Neuts (auto) 5.1 Absolute Nucleated RBC 0.000 Nucleated RBC % (auto) 0.0 Sodium 141 Potassium 3.8 Chloride 97 Carbon Dioxide 35 H Anion Gap 13 BUN 21 H D Creatinine 0.86 Estim Creat Clear Calc 43.4 Estimated GFR > 60 Random Glucose 132 H Estimat Average Glucose Hemoglobin A1c % Calcium 9.4 Magnesium Total Bilirubin 0.3 Direct Bilirubin AST 40 H D ALT 28 Alkaline Phosphatase 120 H Total Protein 6.8 Albumin 4.2 Triglycerides Cholesterol LDL Cholesterol, Calc HDL Cholesterol Vitamin B12 Folate TSH 3.04 Free T4 1.01 Urine Opiates Screen Urine Fentanyl Screen Ur Barbiturates Screen Ur Phencyclidine Scrn Ur Amphetamines Screen U Benzodiazepines Scrn [place] Urine Cocaine Screen U Marijuana (THC) Screen Ethyl Alcohol COVID-19 ([facility]) Negative COVID-19 Clin Com See Note 09/17/21 09/18/21 09/18/21 21:56 08:33 08:33 WBC RBC Hgb Hct MCV MCH MCHC RDW Plt Count MPV Immature Gran % (Auto) Neut % (Auto) Lymph % (Auto) [place] % (Auto) Eos % (Auto) Baso % (Auto) Lymph # (Auto) [place] # (Auto) Eos # (Auto) Baso # (Auto) Abs Immat Gran (auto) Absolute Neuts (auto) Absolute Nucleated RBC Nucleated RBC % (auto) Sodium Potassium Chloride Carbon Dioxide Anion Gap BUN Creatinine Estim Creat Clear Calc Estimated GFR Random Glucose Estimat Average Glucose 126 Hemoglobin A1c % 6.0 Calcium Magnesium 1.9 Total Bilirubin Direct Bilirubin AST ALT Alkaline Phosphatase Total Protein Albumin Triglycerides 71 Cholesterol 201 LDL Cholesterol, Calc 140 HDL Cholesterol 47 Vitamin B12 Folate TSH Free T4 Urine Opiates Screen Urine Fentanyl Screen Ur Barbiturates Screen Ur Phencyclidine Scrn Ur Amphetamines Screen U Benzodiazepines Scrn [place] Urine Cocaine Screen U Marijuana (THC) Screen Ethyl Alcohol < 10 COVID-19 ([facility]) COVID-19 [employer] Com 09/18/21 09/18/21 09/19/21 08:33 18:45 09:12 WBC RBC Hgb Hct MCV MCH MCHC RDW Plt Count MPV Immature Gran % (Auto) Neut % (Auto) Lymph % (Auto) [place] % (Auto) Eos % (Auto) Baso % (Auto) Lymph # (Auto) [place] # (Auto) Eos # (Auto) Baso # (Auto) Abs Immat Gran (auto) Absolute Neuts (auto) Absolute Nucleated RBC Nucleated RBC % (auto) Sodium Potassium Chloride Carbon Dioxide Anion Gap BUN Creatinine Estim Creat Clear Calc Estimated GFR Random Glucose Estimat Average Glucose Hemoglobin A1c % Calcium Magnesium Total Bilirubin 0.6 Direct Bilirubin < 0.2 AST 20 D ALT 19 Alkaline Phosphatase 84 D Total Protein 5.9 L Albumin 3.6 Triglycerides Cholesterol LDL Cholesterol, Calc HDL Cholesterol Vitamin B12 577 Folate 7.0 TSH Free T4 Urine Opiates Screen Not Detected Urine Fentanyl Screen Not Detected Ur Barbiturates Screen Not Detected Ur Phencyclidine Scrn Not Detected Ur Amphetamines Screen Not Detected U Benzodiazepines Scrn Not Detected [place] Urine Cocaine Screen Not Detected U Marijuana (THC) Screen POSITIVE H Ethyl Alcohol COVID-19 ([facility]) [email or web address] 09/23/21 09/23/21 09/24/21 07:59 07:59 09:31 WBC RBC Hgb Hct MCV MCH MCHC RDW Plt Count MPV Immature Gran % (Auto) Neut % (Auto) Lymph % (Auto) [place] % (Auto) Eos % (Auto) Baso % (Auto) Lymph # (Auto) [place] # (Auto) Eos # (Auto) Baso # (Auto) Abs Immat Gran (auto) Absolute Neuts (auto) Absolute Nucleated RBC Nucleated RBC % (auto) Sodium 138 Potassium 5.0 D Chloride 107 Carbon Dioxide 29 Anion Gap 7 L BUN 9 D Creatinine 0.72 Estim Creat Clear Calc 51.8 Estimated GFR > 60 Random Glucose Estimat Average Glucose Hemoglobin A1c % Calcium Magnesium Total Bilirubin Direct Bilirubin AST ALT Alkaline Phosphatase Total Protein Albumin Triglycerides Cholesterol LDL Cholesterol, Calc HDL Cholesterol Vitamin B12 Folate TSH Free T4 Urine Opiates Screen Urine Fentanyl Screen Ur Barbiturates Screen Ur Phencyclidine Scrn Ur Amphetamines Screen U Benzodiazepines Scrn [place] 1.07 Urine Cocaine Screen U Marijuana (THC) Screen Ethyl Alcohol COVID-19 ([facility]) Negative COVID-19 [employer] See Note Airway Mallampati Class: II TM Dist: >3cm Neck ROM: Full Heart: rrr Lungs: cta Assessment and Plan Assessment Anesthesia Assessment: Anesthesia Plan Discussed and Chart Reviewed Final Anesthetic Review History of Problems with Anesthesia: No NPO: Yes ASA Class: III Final Preanesthetic Review: No Changes in Pt Med Stat, Meds/Allgs Chart Reviewed and Consent Obtained/Reviewed Patient Risk: Intermediate Procedure Risk: Intermediate Anesthetic Plan Anesthetic Plan: GA Disposition: Standard PACU
--- NOTE | 2021-09-28 07:46 | MHC.SHP ---
Pre-Procedural Eval Section A Date of Service: 09/28/21 The patient is an INPATIENT: Yes Changes since office visit: No Cold of Flu in the past 2 weeks, No New Medical Problems, No Changes in Medication and No Patient answered all questions The History & Physical has been completed within 30 days and I have reviewed it.: Yes Section B Chief Complaint: Bipolar Depression, Med Non-Adherence Allergies: Allergies Allergy/AdvReac Type Severity Reaction Status Date / Time olanzapine [From ZYPREXA] AdvReac Intermediate RLS Verified 08/28/21 10:29 symptoms atypical antipsychotics AdvReac Severe This class Uncoded 02/06/21 09:37 appears to potentiate RLS/Akathesia Plan I have reviewed the history and physical and performed a pertinent physical examination on my patient. No changes have occurred unless specified.
--- NOTE | 2021-09-28 07:46 | HO.ECTPROC ---
ECT Procedure Note Diagnosis/Treatment Date of Service: 09/28/21 Diagnosis: Bipolar disorder Previous ECT Date: 09/25/21 Current Treatment Number: 2 Treatment: Series Interval Clinical Notes: The patient reported mild improvement of dysphoria, no side effects with the first ECT. On the last ECT, she had an episode of mild bradycardia. ECT Settings Device: THYMATRON DGx Electrode Placement: Right Unilateral Program/Pulse Width: 0.50 Energy Percent: 100 Seizure Duration By EEG (in seconds): 41 By Motor Observation (in seconds): 71 Medications Administration General Anesthetic: Etomidate Muscle Relaxant: Succinylcholine (80) Ancillary Medications Analgesics: Torodol - Pre ECT Anti-emetics: Zofran - Pre ECT Cardiovascular Medications: Glycopyrrolate Miscillaneous Medications: Propofol and Flumazenil Airway Management Airway Management: Bag Mask Ventilation Treatment Recommendations No Changes Recommended: No change Pt Tolerated Procedure w/o Issue: Yes
[2021-09-28] MEDS: Pregabalin 50 MG CAPSULE PO ×2 (09:43→13:55)
[2021-09-28] MEDS: Levothyroxine Sodium 75 MCG TABLET PO (09:43)
[2021-09-28] MEDS: Pramipexole Di-HCL 0.25 MG TABLET PO (09:43)
[2021-09-28] MEDS: Atorvastatin Calcium 20 MG TABLET PO (09:46)
--- NOTE | 2021-09-28 12:31 | P.DS_ITS ---
DS: Providers Provider Date of Service: 09/28/21 Date of admission: 09/17/21 23:17 Date of discharge: 09/28/21 Primary care physician: Unknown Physician Attending physician on admission: Rocky Cobos Consults: 09/22/21 16:04 Consult to Hospitalist Routine Consulting Provider: Hospitalist Reason For Exam: ECT clearance Attending physician on discharge: Rocky Cobos DS: Diagnosis Discharge Diagnosis (1) Depression: Status: Acute (2) Hypothyroidism: Status: Acute (3) RLS (restless legs syndrome): Status: Acute (4) COPD (chronic obstructive pulmonary disease): Status: Acute DS: Medications Discharge Medications Home Medications: Home Medications Medication Instructions Recorded Confirmed cholecalciferol (vitamin D3) 25 25 mcg PO DAILY 06/15/20 08/28/21 mcg (1,000 unit) tablet fluticasone 113 mcg-salmeterol 14 1 puff PO BID 06/15/20 08/28/21 mcg/actuation breath activated powdr pramipexole 0.5 mg tablet 0.5 mg PO BEDTIME 07/21/20 08/28/21 atorvastatin 20 mg tablet 1 tab PO DAILY 07/21/21 08/28/21 pramipexole 0.25 mg tablet 1 tab PO BID 07/21/21 08/28/21 Previous Rx's Medication Instructions Recorded famotidine 20 mg tablet 20 mg PO DAILY #90 tab 12/17/20 albuterol sulfate 90 mcg/actuation 2 puff INHALATION Q4-6H PRN 90 02/05/21 aerosol inhaler (Ventolin HFA) Days #3 ea levothyroxine 75 mcg tablet 75 mcg PO DAILY #30 tab 03/30/21 lithium carbonate 450 mg 450 mg PO MoWeFrSa@2100 #0 tab 09/28/21 tablet,extended release pregabalin 50 mg capsule (Lyrica) 50 mg PO 5XD #0 cap 09/28/21 Mental Status Exam Mental Status Exam Narrative: Pt is alert and oriented; behavior cooperative, calm, friendly; dressed in appropriate cloths, adequate hygiene; mood is described as good and affect congruent, brighter;? good eye contact; Speech is normal rate, volume and pr osody; no psychomotor agitation present;Thought process is? goal oriented, linear; thought content is on treatment; denies SI/SIB/HI. There is no evidence of perceptual disturbance. Patients insight and judgment are impaired but adequate. Data Data Completed and Pending Completed studies during hospitalization [Text1]: 09/23/21 09/23/21 09/24/21 07:59 07:59 09:31 Sodium 138 Potassium 5.0 D Chloride 107 Carbon Dioxide 29 Anion Gap 7 L BUN 9 D Creatinine 0.72 Estim Creat Clear Calc 51.8 Estimated GFR > 60 [place] 1.07 COVID-19 ([facility]) Negative COVID-19 Clin Com See Note DS: Summary Hospital Course Hospital Course: Patient is a 60-year-old female with a history of Bipolar Type 2 disorder (possibly OCD) who presents for worsening depression in the face of her mother's this past May 2021 and going off her medications a few weeks ago. On admission patient's depression is very severe and compromising her ability to function on her own. Patient wants to get back on her current medication regimen which she says has been helpful in the past.? She agrees to mild increase in lithium since she has become overwhelmed with sadness and depression beyond normal grieving.? Patient also wants to get it therapist as her current therapist has been very unreliable in getting back to her and she feels the need to process her feelings about her mother's .? Patient is experiencing hopeless feelings however denies any active SI, intent or plans.? and family are supportive. At 1st patient's lithium was increased to 600 mg. She was started on Lexapro as a replacement for citalopram since citalopram is not on formulary. Patient did get irritable and radio news writer wondered if it was possible for Lexapro to be triggering this so it was discontinued. It was later understood that patient's irritability ebbed and flowed and seemed unrelated to an SSRI. However she also fully decided she did not want to get back on citalopram saying it never helped anyway. Patient was very interested in ECT which was discussed and initiated. Her mood significantly improved and she became more hopeful that treatment would work. Patient's and son met for a family meeting where ECT and patient's medication regimen were thoroughly discussed and all agreed with plan. [place] was lowered to 450 mg to mitigate any possible memory loss side effect while getting ECT and was held the night before ECT. Patient got 1 treatment which she found helpful. Patient's irritability on the unit remain intermittent and she very much wanted to go home and continue ECT as an outpatient. She also was very bothered that she could not go outside for fresh air or go outside for a cigarette. Patient agreed to remain on the unit longer and get another session of ECT but remain focused on discharging home as soon as possible. Patient was without any SI, HI or AVH throughout her admission; she lives at home with her and son who are very supportive and can provide transportation to and from ECT, making continuing this treatment as an outpatient a realistic option. Over the weekend patient was found with contour band vaping smoking apparatus. She said it was accidentally left in her sweater however there was concern that a visitor snuck it onto the unit for her and that she shared it with her roommate. Staff Analyst tried to broach patient's history of addiction however patient difficult to engage on the subject and minimized her history of use. Patient continued to want to discharge home and continue ECT as an outpatient. She reported that her mood was significantly better and shared that since coming to the unit she was able to come to better terms with her mother's , having some alone time to process it. Patient shared about some of the trauma of growing up with her emotionally neglectful mother and alcoholic father and agreed that continued therapy is probably an essential component to her recovery. Of note, patient's affect was brighter. Staff Analyst agreed that patient was not in imminent risk for harm to herself or others and was able to continue outpatient treatment. Given the fact that she maintained a cavalier air about using contraban on the unit and the patient did not want to remain, radio news writer agreed that discharge was appropriate. This was discussed with Dr. Cuenca who agreed to continue ECT as an outpatient. Patient did not need any medications saying she had adequate supply of all her medications. She agreed to continue on lithium 450 mg for now and to not take it the nights before ECT. Appointments were made for a psychiatric provider as well as a new therapist. While on the unit patient was given a [place] and scored 22/30. Staff Analyst discussed this with patient who said that she has had neuropsych testing in the past and has been diagnosed with processing delays; she also says she had a learning delay in school and ADHD. Patient agrees to pursue neuropsych testing and an appointment was made. Time spent discussing smoking cessation with patient: 3 to 10 minutes Status at Discharge Functional status at discharge: independent ambulation Overall status at discharge: patient is progressing back to baseline Time Spent with Patient Time attestation: Total time spent providing and/or coordinating discharge services: Time spent: Greater than 30 minutes Discharge Plan Discharge Patient Disposition: Home, Self-Care Discharge Diagnosis: Bipolar disorder type II, most recently depressed, in partial remission Referrals: Jahaira Haley [Other] - 09/29/21 1:00 pm (Appointment for Initial Therapy Intake Appointment in office at [facility] Please show up 15 minutes prior to appointment to complete paperwork ) America Lam [Other] - 10/20/21 2:20 pm (Initial Psychiatric Evaluation with outpatient psychiatric provider In person appointment at [facility] ) America Lam [Other] - 11/17/21 11:20 am (Medication management appointment Appointment at [facility] in [place], [place]) [employer] [Other] - 1 Week (Referral for Neurocognitive Testing Patient should call in order to obtain appointment. Patient may also speak with primary care doctor to have them place referral for neurocognitive testing.) Isaac (AC),MD Smooth [Physician] - 10/02/21 2:30 pm (IN OFFICE) [facility] [Primary Care Provider] - 1 Week Discharge Medications: New lithium carbonate 450 mg Tablet Extended Release 450 mg PO MoWeFrSa@2100 Qty: 0 0RF Continued famotidine 20 mg tablet 20 mg PO DAILY Qty: 90 8RF albuterol sulfate [Ventolin HFA] 90 mcg/actuation HFA aerosol inhaler 2 puff inhalation Q4-6H PRN (Reason: shortness of breath or wheezing) 90 Days Qty: 3 2RF levothyroxine 75 mcg tablet 75 mcg PO DAILY Qty: 30 11RF cholecalciferol (vitamin D3) 25 mcg (1,000 unit) tablet 25 mcg PO DAILY 0RF fluticasone propion-salmeterol 113-14 mcg/actuation aerosol powdr breath activated 1 puff PO BID 0RF atorvastatin 20 mg tablet 1 tab PO DAILY 0RF pramipexole 0.25 mg tablet 1 tab PO BID 0RF pramipexole 0.5 mg tablet 0.5 mg PO BEDTIME 0RF Changed pregabalin [Lyrica] 50 mg capsule 50 mg PO 5XD Qty: 0 0RF Discontinued nystatin 100,000 unit/mL suspension 100,000 unit PO DAILY PRN (Reason: 5 ml . po , swish and swallow bid) 15 Days Qty: 250 1RF Rx Instructions: administer 1/2 of dose in each side of the mouth lorazepam 0.5 mg tablet 0.5 mg PO BID PRN (Reason: anxiety) 28 Days Qty: 56 5RF lithium carbonate 450 mg tablet extended release 450 mg PO DAILY Qty: 30 0RF pregabalin [Lyrica] 50 mg capsule 50 mg PO 5XD Qty: 150 0RF Rx Instructions: Pt is unable to tolerate generic pregabalin. Brand name only. ropinirole 0.5 mg tablet 0.5 mg PO BEDTIME 0RF citalopram 20 mg tablet 1 tab PO DAILY 0RF azithromycin 250 mg tablet See Rx Instructions PO .COMPLEX Qty: 6 0RF Rx Instructions: take 500 mg today (day 1), then 250 mg for 4 days (days 2-5) PO tramadol 50 mg tablet 50 mg PO Q6H PRN (Reason: pain) 7 Days Qty: 28 0RF Discharge Orders: Discharge Order (Routine); Ordered 09/28/21 Ordered By: Rocky Cobos Diet: regular diet Activity on Discharge: As tolerated Stand Alone Forms: Patient Portal Discharge page, Community Support Care Plan Goals: Maintain mood and safe behaviors Take medications as prescribed Continue to pursue sobriety Practice coping skills Continue with outpatient providers and reach out to them as needed Health Concerns: Mood stability and behaviors Sobriety COPD Restless leg Hypothyroid Hyperlipidemia Fibromyalgia Plan of Treatment: Follow up with your PCP, psychiatric provider and other outpatient providers regarding above concerns Take medications as prescribed Assessment: Risk assessment at time of discharge:? Patient was interviewed prior to discharge and found to be fully oriented and without any SI or HI. Patient has insight and demonstrates good judgment in terms of wanting to pursue treatment. Patient is not in imminent risk of harm to self or others and has a safety plan that includes presenting to the closest ER or calling 911 if feeling unsafe.? Patient has been observed closely by nursing and unit staff throughout admissio n; patient has not engaged in any behaviors that suggest dangerousness to self or others. Discharge Date/Time: 09/28/21 14:49
== END 2021-09-28 14:49 | disposition home or self-care (01) | DRG 885 ==
LOC: HO.ED 21:43 → HO.PM5 23:30
PROVIDERS: Physician Assistant; Psychiatry & Neurology Psychiatry; Admitting Provider Registered Nurse; Emergency Provider Emergency Medicine Emergency Medical Services; Visit Provider Psychiatry & Neurology Psychiatry
PROC: (CPT 90870; principal; 2021-09-25 15:00)
PROC: GZB4ZZZ Other Electroconvulsive Therapy (ICD-10-PCS; CPT 90870; principal; 2021-09-28 15:10)
DX: F31.81 Bipolar II disorder (principal); Z20.822 Contact with and (suspected) exposure to COVID-19; F17.210 Nicotine dependence, cigarettes, uncomplicated; F42.9 Obsessive-compulsive disorder, unspecified; Z71.6 Tobacco abuse counseling; F43.21 Adjustment disorder with depressed mood; E03.9 Hypothyroidism, unspecified; J44.9 Chronic obstructive pulmonary disease, unspecified; G25.81 Restless legs syndrome; Z91.14 Patient's other noncompliance with medication regimen; Z79.51 Long term (current) use of inhaled steroids; Z79.899 Other long term (current) drug therapy
CPT/HCPCS: 36415; 80051; 80053; 80061; 80076; 80178; 80307; 82077; 82565; 82607; 82746; 83036; 83735; 84439; 84443; 84520; 85025; 87635; 90870; 93005; 99285; J0330; J0461; J1885; J2405

== ENCOUNTER 2021-09-30 05:58 | Day surgery (SDC) | payer MEDICARE, MEDICAID, SELFPAY ==
[2021-09-30] VITALS (7 sets, daily range): BP systolic 82–110; BP diastolic 45–59; PULSE 60–81; RESP 15–20; TEMP 36.2–36.6; O2SAT 96; BMI 19.5
[2021-09-30 06:41] LABS: COVID-19 Test Negative (Negative); IDNOW Serial# 9DD0AD1C
--- NOTE | 2021-09-30 06:55 | P.CONAN_ITS ---
[facility], [facility] Active Problems Active Problems: All Active Problems (Updated 09/17/21 @ 21:43 by ELISE Sims) Depression (Acute) Complicated grieving (Acute) Sinusitis (Acute) Cocaine use disorder (Acute) Substance induced mood disorder (Acute) Osteoporosis (Acute) Fracture of proximal end of left humerus (Acute) Shoulder pain (Acute) Hypothyroidism (Acute) Vaginal dryness, menopausal (Acute) Bipolar II disorder (Acute) RLS (restless legs syndrome) (Acute) COPD (chronic obstructive pulmonary disease) (Acute) HLD (hyperlipidemia) (Acute) Past Medical History Medical History Bipolar II disorder COPD (chronic obstructive pulmonary disease) HLD (hyperlipidemia) Hypothyroidism Osteoporosis RLS (restless legs syndrome) Family History Family History Mother No problems noted. Father No problems noted. Son Substance use disorder Family history of problems with anesthesia: No Surgical History Surgical History H/O: hysterectomy History of Problems with Anesthesia: No Social History Social History Household Members: Spouse and Other Household Members Other:: adult son Housing: House Do you presently have visiting nurse or other home services: No Alcohol intake: never Patient Tobacco Use Status: Current everyday Tobacco user Tobacco use type: Cigarette Cigarettes Per Day: 1 e-Cigarette/Vaping Use: Currently Using Second Hand Smoke Exposure: No Substance Use Type: Marijuana and Prescription Drugs Advance Directives: No Advance Directives Information Provided: Yes service: No Current occupational status: employed Sexual orientation: Straight/Heterosexual Meds Allergies Allergy/AdvReac Type Severity Reaction Status Date / Time olanzapine [From ZYPREXA] AdvReac Intermediate RLS Verified 08/28/21 10:29 symptoms atypical antipsychotics AdvReac Severe This class Uncoded 02/06/21 09:37 appears to potentiate RLS/Akathesia Home Medications Medication Instructions Recorded Confirmed Last Taken Type cholecalciferol (vitamin D3) 25 25 mcg PO DAILY 06/15/20 08/28/21 07/21/21 08:00 History mcg (1,000 unit) tablet fluticasone 113 mcg-salmeterol 14 1 puff PO BID 06/15/20 08/28/21 Unknown History mcg/actuation breath activated powdr atorvastatin 20 mg tablet 1 tab PO DAILY 07/21/21 08/28/21 07/21/21 08:00 History pramipexole 0.25 mg tablet 1 tab PO BID 07/21/21 08/28/21 07/21/21 08:00 History Exam Exam Date and Time: September 30, [id number] Pertinent Lab Results Pertinent Lab Results: Laboratory Tests 09/30/21 06:10 COVID-19 ([facility]) Negative COVID-19 Clin Com See Note Airway Mallampati Class: II TM Dist: >3cm Neck ROM: Full Heart: rrr Lungs: cta Assessment and Plan Assessment Anesthesia Assessment: Anesthesia Plan Discussed and Chart Reviewed Final Anesthetic Review Family History of Problems with Anesthesia: No History of Problems with Anesthesia: No NPO: Yes ASA Class: III Final Preanesthetic Review: No Changes in Pt Med Stat, Meds/Allgs Chart Reviewed and Consent Obtained/Reviewed Patient Risk: Intermediate Procedure Risk: Intermediate Anesthetic Plan Anesthetic Plan: GA Disposition: Standard PACU
--- NOTE | 2021-09-30 07:23 | MHC.SHP ---
Pre-Procedural Eval Section A Date of Service: 09/30/21 The patient is an INPATIENT: No Changes since office visit: Yes Changes in Medication and Yes Patient answered all questions; No Cold of Flu in the past 2 weeks and No New Medical Problems The History & Physical has been completed within 30 days and I have reviewed it.: Yes Section B Chief Complaint: depression Allergies: Allergies Allergy/AdvReac Type Severity Reaction Status Date / Time olanzapine [From ZYPREXA] AdvReac Intermediate RLS Verified 08/28/21 10:29 symptoms atypical antipsychotics AdvReac Severe This class Uncoded 02/06/21 09:37 appears to potentiate RLS/Akathesia Plan I have reviewed the history and physical and performed a pertinent physical examination on my patient. No changes have occurred unless specified.
--- NOTE | 2021-09-30 07:24 | HO.ECTPROC ---
ECT Procedure Note Diagnosis/Treatment Date of Service: 09/30/21 Diagnosis: Bipolar disorder Previous ECT Date: 09/28/21 Current Treatment Number: 3 Treatment: Series Interval Clinical Notes: pt d/c now at home seems improvrd no c/o side effects ECT Settings Device: THYMATRON DGx Electrode Placement: Right Unilateral Program/Pulse Width: 0.50 Energy Percent: 100 Seizure Duration By EEG (in seconds): 44 Medications Administration General Anesthetic: Etomidate (12) Muscle Relaxant: Succinylcholine (100) Ancillary Medications Analgesics: Torodol - Pre ECT Anti-emetics: Zofran - Pre ECT Cardiovascular Medications: Glycopyrrolate Miscillaneous Medications: Flumazenil Airway Management Airway Management: Bag Mask Ventilation Treatment Recommendations No Changes Recommended: No change Notes: continue outpt tx Pt Tolerated Procedure w/o Issue: Yes
== END 2021-09-30 08:40 | disposition home or self-care (01) ==
PROVIDERS: Visit Provider Psychiatry & Neurology Psychiatry
PROC: (CPT 90870; principal; 2021-09-30 07:00)
DX: F31.81 Bipolar II disorder (principal); F12.20 Cannabis dependence, uncomplicated; J44.9 Chronic obstructive pulmonary disease, unspecified; E03.9 Hypothyroidism, unspecified; E78.5 Hyperlipidemia, unspecified; M81.0 Age-related osteoporosis without current pathological fracture; G25.81 Restless legs syndrome; Z79.51 Long term (current) use of inhaled steroids; Z79.899 Other long term (current) drug therapy; F17.210 Nicotine dependence, cigarettes, uncomplicated; Z20.822 Contact with and (suspected) exposure to COVID-19
CPT/HCPCS: 87635; 90870; J0330; J0461; J1885; J2250; J2405

== ENCOUNTER 2021-10-04 13:48 | Inpatient (IN) | payer MEDICARE, MEDICAID, SELFPAY ==
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
--- NOTE | ~2021-10-04 | CT_ITS ---
EXAMINATION: CT HEAD WITHOUT CONTRAST CLINICAL INFORMATION: Altered mental status COMPARISON: Prior CT August 2012. TECHNIQUE: Contiguous axial imaging was performed from the skull base to vertex without intravenous administration of contrast. This CT examination was performed using dose optimization techniques as appropriate, variously including the following: *Automated exposure control *Adjustment of mA and/or kV according to patient size (this includes techniques or standardized protocols for targeted exams where dose is matched to indication/reason for exam; i.e. extremities or head) *Use of iterative reconstruction technique DLP: 611 mGy-cm FINDINGS: There is no evidence of acute intracranial hemorrhage or territorial infarction. No abnormal mass effect or midline shift is seen. [place] to white matter differentiation is well preserved. No extra-axial fluid collections are identified. The ventricles are normal in size. There is no abnormal attenuation within the brain parenchyma. The osseous structures and soft tissues are normal. The mastoid air cells and visualized portions of the paranasal sinuses are well aerated. CT/CT head/brain wo con IMPRESSION: No acute intracranial pathology.
--- NOTE | ~2021-10-04 | XR_ITS ---
EXAMINATION: XR CHEST CLINICAL INFORMATION: Elevated white count COMPARISON: Chest and RIBS 01/11/2014 TECHNIQUE: Frontal view of the chest was obtained. FINDINGS: No significant abnormality is noted involving the heart, lungs, mediastinum, bony thorax or soft tissues. XR/XR chest 1V IMPRESSION: Unremarkable examination.
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
[2021-10-04 14:23] VITALS: BP 142/71; PULSE 94; RESP 18; TEMP 36.9; O2SAT 99; BMI 28.0
[2021-10-04 14:51] LABS: MANUAL DIFF FLAG NO
[2021-10-04 14:53] LABS: Basophils Absolute Auto 0.1 X10*3/uL (0.0-0.2); Basophils Percent Auto 0.4 % (0-2); Eosinophils Absolute Auto 0.1 X10*3/uL (0.0-0.4); Eosinophils Percent Auto 0.4 % (0-4); Hematocrit 41.7 % (37.0-47.0); Imm Gran Abs Auto 0.05 X10*3/uL (0.00-0.03); Imm Gran Pct Auto 0.3 % (0.0-0.4); Lymphocytes Absolute Auto 2.2 X10*3/uL (1.2-4.9); Lymphocytes Percent Auto 14.1 % (20-40); Mean Corpuscular HGB Conc 33.6 g/dl (31.0-35.0); Mean Corpuscular Volume 95.2 fL (80.0-98.0); Mean Platelet Volume 9.5 fL (9.4-12.3); Monocytes Absolute Auto 1.2 X10*3/uL (0.1-1.2); Monocytes Percent Auto 7.5 % (2-11); Neutrophils Absolute Auto 12.3 x10*3/uL (2.0-8.3); Neutrophils Percent Auto 77.3 % (45-73); Platelet Count 531 X10*3/uL (160-400); Red Blood Count 4.38 X10*6/uL (4.20-5.50); White Blood Count 15.9 X10*3/uL (4.8-10.8)
[2021-10-04 15:02] LABS: Lithium 0.71 mmol/L (0.60-1.20)
[2021-10-04 15:06] LABS: Ethanol < 10 mg/dL
[2021-10-04 15:07] LABS: COVID-19 Test Negative (Negative)
[2021-10-04 15:12] LABS: Alanine Aminotransferase 9 U/L (0-31); Albumin Level 4.9 g/dL (3.5-5.0); Alkaline Phosphatase 107 U/L (39-117); Anion Gap 17 (12-20); Aspartate Amino Transferase 14 U/L (5-31); Bilirubin Total 0.6 mg/dL (0.0-1.0); Blood Urea Nitrogen 17 mg/dL (9-16); Calcium 10.5 mg/dL (8.4-10.2); Carbon Dioxide 25 mmol/L (22-29); Chloride 103 mmol/L (96-108); Creatinine Clr Calc Pharmacy 47.8; Estimated Glomerular Filt Rate > 60; Glucose Random 115 mg/dL (60-115); Magnesium 2.3 mg/dL (1.6-2.6); Potassium 4.7 mmol/L (3.3-5.1); Sodium 140 mmol/L (135-145)
--- NOTE | 2021-10-04 15:16 | PC.NURSE ---
Patient referred to [facility]
[2021-10-04 15:46] LABS: Appearance Urine HAZY; Color Urine DK YELLOW; Glucose Urine UA NEG (NEG); Leukocyte Esterase Urine NEG (NEG); Nitrite Urine NEG (NEG); Specific Gravity - Urine >= 1.030 (1.005-1.025); UACC Culture Trigger NO; Urine Blood TRACE (NEG); Urine Ketones NEG (NEG); Urine Protein 1+ MG/DL (NEG-TRACE)
[2021-10-04 16:05] VITALS: BP 116/73; PULSE 91; RESP 15; TEMP 36.9; O2SAT 98
[2021-10-04 16:09] LABS: Amphetamine Screen Urine Not Detected (Not Detect); Barbiturates, Urine Not Detected (Not Detect); Benzodiazepines Screen Urine Not Detected (Not Detect); Cannabinoid Screen Urine POSITIVE (Not Detect); Cocaine Screen Urine Not Detected (Not Detect); Fentanyl, urine Not Detected (Not Detect); Opiate Screen Urine Not Detected (Not Detect); Phencyclidine Screen Urine Not Detected (Not Detect)
[2021-10-04 16:20] LABS: Bacteria Urine 4+ /LPF; Mucus Urine 4+ /LPF; Squamous Epithelial Cell Urine 2+ /LPF; UACC CULT YES
--- NOTE | 2021-10-04 16:40 | PC.NURSE ---
Patient yelling, refusing care and screaming at staff. Security asked to escort patient back to her room.
[2021-10-04 17:02] LABS: Lipase 19 U/L (8-78)
[2021-10-04 17:27] LABS: Lactic Acid 0.9 mmol/L (0.5-2.0)
[2021-10-04] MEDS: HaloperidoL 5 MG TABLET PO (22:44)
--- NOTE | 2021-10-05 00:44 | MHC.CARE ---
[facility] unable to send clinician to complete evaluation. CARE team met with pt, disposition is for inpt psychiatric admission. Psychiatry consult pending to weigh in on disposition, as pt is not voluntary at this time and it is likely that her current presentation is a result of biochemical mismanagement.
[2021-10-05 03:46] VITALS: BP 96/64; PULSE 82; RESP 16; TEMP 36.9; O2SAT 97
--- NOTE | 2021-10-05 06:19 | PC.NURSE ---
Patient slept in all five and half hours, no distress observed/reported, patient when awake constantly demands discharge, when attempted to explain her disposition patient gets agitated, patient is confused, patient was assessed by care team, disposition pending psych consult , VSS, patient's med rec completed/pending providers approval, VSS, administered haldol 5 mg at 2254, minimal effect, will continue to monitor.
--- NOTE | 2021-10-05 07:04 | PC.NURSE ---
patient appears to remain asleep at present respirations are even and unlabored patient appears in no distress
--- NOTE | 2021-10-05 07:59 | PC.NURSE ---
called [facility] to inquire regarding consult for patient
--- NOTE | 2021-10-05 08:23 | PC.NURSE ---
if i want a certain provider (trudy) you should be getting them for me calling staff stupid not enough under her breath, maybe you missed your calling client rude and generally harassing staff due to not getting her wants met.
--- NOTE | 2021-10-05 08:32 | PC.NURSE ---
explained to patient that disrespectful behavior to the staff wasnt going to be tolerated. patient continued to express interest in being discharged.
--- NOTE | 2021-10-05 09:02 | PC.NURSE ---
client recently called son, on phone about 10 minutes requesting/demanding son come get her out
--- NOTE | 2021-10-05 09:50 | PC.NURSE ---
client calling son repeatedly if i hAVE to kill myself im going to get out, to be with the right people
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
[2021-10-05] MEDS: Pramipexole Di-HCL 0.25 MG TABLET PO ×2 (12:03→20:31)
[2021-10-05] MEDS: Cholecalciferol (Vitamin D3) 25 MCG TABLET PO (12:03)
--- NOTE | 2021-10-05 13:20 | MHC.CARE ---
CARE Team provided education to Pts son regarding Section 35s.
[2021-10-05] MEDS: Pregabalin 50 MG CAPSULE PO ×3 (13:48→21:04)
[2021-10-05] MEDS: Lithium Carbonate ER 450 MG TABLET.ER PO (20:17)
[2021-10-05] MEDS: Atorvastatin Calcium 20 MG TABLET PO (20:17)
[2021-10-05] MEDS: Pramipexole Di-HCL 0.25 MG TABLET 0.5 MG PO (20:31)
[2021-10-05 20:58] VITALS: BP 123/74; PULSE 70; TEMP 37.1; O2SAT 98
[2021-10-05 23:35] VITALS: BP 101/73; PULSE 86; RESP 18; TEMP 36.7; O2SAT 96
--- NOTE | 2021-10-06 | ECG_ITS ---
Test Reason : MED CLEARANCE Blood Pressure : / mmHG Vent. Rate : 063 BPM Atrial Rate : 063 BPM P-R Int : 130 ms QRS Dur : 096 ms QT Int : 422 ms P-R-T Axes : 065 070 023 degrees QTc Int : 431 ms Normal sinus rhythm Normal ECG When compared with ECG of 25-SEP-2021 12:19, Nonspecific T wave abnormality now evident in Inferior leads Referred By: Anel Weiss Electronically Signed By:JEANNINE ORELLANA
[2021-10-06] MEDS: HaloperidoL 5 MG TABLET PO (04:02)
[2021-10-06] MEDS: Pregabalin 50 MG CAPSULE PO ×5 (05:26→20:55)
[2021-10-06] MEDS: Levothyroxine Sodium 75 MCG TABLET PO (05:26)
--- NOTE | 2021-10-06 05:49 | PC.NURSE ---
Patient slept in all four hours, no distress observed/reported, patient was assessed by care team, disposition Section 12 Inpatient Bed Search, Medication compliant, Behavior appropriate, VSS, Haldol 5 mg administered with + effect, will continue to monitor.
--- NOTE | 2021-10-06 07:00 | PC.NURSE ---
patient appears to remain asleep at present respirations are even and unlabored, patient appears in no distress
[2021-10-06] MEDS: Pramipexole Di-HCL 0.25 MG TABLET PO ×2 (08:15→17:38)
[2021-10-06] MEDS: Cholecalciferol (Vitamin D3) 25 MCG TABLET PO (08:16)
[2021-10-06] MEDS: LORazepam 0.5 MG TABLET PO (08:16)
[2021-10-06 10:16] LABS: COVID-19 Test Negative (Negative)
[2021-10-06 17:15] VITALS: BP 98/59; PULSE 75; RESP 14; TEMP 36.8; O2SAT 96
[2021-10-06 18:00] VITALS: BP 124/69; PULSE 77; TEMP 37; O2SAT 98
--- NOTE | 2021-10-06 19:56 | PC.ADMIT ---
Patient is a 60 y/o female admitted from the [facility] at approximately 1800. Pt had been picked up by the [employer] after bizarre behavior,altered mental status,(walking in the middle of the road) and then assaulting police when approached. Pt was walking outside with inappropriate clothing. Pt reports that she smoked marijuanaat home, walked to her sons and smoked more and took some Ativan. Pt reports that she blacked out and doesn't remember how she got to the hospital or why. Pt was calm and cooperative with admission.Pt speech was even, good eye contact and used humor when reporting. Pt's goal is to stabilize on her medications and then attend Partial Program when discharged. Pt carries a dx of Bipolar d/o, and substance abuse(marijuana/Ativan. Pt recently discharged from [facility] unit and was receiving ECT as out patient. Pt was signed in on a 12b by INTELLIGENCE SUPPORT OFFICER. Pt denied any acute medical concerns, she does have numerous healing abrasions on bilateral shins . Patient reports she shaved while high. Areas are scabbed, pt denies pain.
[2021-10-06] MEDS: HaloperidoL 1 MG TABLET 2 MG PO (20:22)
[2021-10-06] MEDS: Lithium Carbonate ER 300 MG TABLET.ER 600 MG PO (20:22)
[2021-10-06] MEDS: Pramipexole Di-HCL 0.25 MG TABLET 0.5 MG PO (20:22)
[2021-10-06] MEDS: traZODone HCL 50 MG TABLET PO (20:23)
[2021-10-06] MEDS: Atorvastatin Calcium 20 MG TABLET PO (20:23)
[2021-10-07] MEDS: traZODone HCL 50 MG TABLET PO (02:30)
[2021-10-07 06:00] VITALS: BP 89/58; PULSE 70; RESP 16; TEMP 36.4; O2SAT 95
[2021-10-07] MEDS: Levothyroxine Sodium 75 MCG TABLET PO (06:33)
[2021-10-07] MEDS: Pregabalin 50 MG CAPSULE PO ×4 (06:33→18:52)
[2021-10-07] MEDS: Pramipexole Di-HCL 0.25 MG TABLET PO ×2 (08:35→14:46)
[2021-10-07] MEDS: HaloperidoL 1 MG TABLET 2 MG PO (08:35)
[2021-10-07] MEDS: Cholecalciferol (Vitamin D3) 25 MCG TABLET PO (08:35)
[2021-10-07 09:02] VITALS: BP 121/69; PULSE 74
[2021-10-07] MEDS: HaloperidoL 5 MG TABLET PO (11:26)
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
[2021-10-07] MEDS: hydrOXYzine HCL 25 MG TABLET PO (17:30)
[2021-10-07 19:11] VITALS: BP 104/59; PULSE 66; RESP 16; TEMP 36.2; O2SAT 98
[2021-10-08 06:00] VITALS: BP 106/71; PULSE 71; RESP 18; TEMP 36.7; O2SAT 97
[2021-10-08] MEDS: Levothyroxine Sodium 75 MCG TABLET PO (06:01)
[2021-10-08] MEDS: Pregabalin 50 MG CAPSULE PO ×5 (06:04→19:33)
[2021-10-08] MEDS: hydrOXYzine HCL 25 MG TABLET PO ×3 (06:07→20:47)
[2021-10-08 07:00] VITALS: BMI 22.4
[2021-10-08] MEDS: Cholecalciferol (Vitamin D3) 25 MCG TABLET PO (07:57)
[2021-10-08] MEDS: Pramipexole Di-HCL 0.25 MG TABLET PO ×2 (07:57→14:21)
[2021-10-08] MEDS: HaloperidoL 1 MG TABLET 2 MG PO ×2 (07:57→19:32)
--- NOTE | 2021-10-08 17:57 | P.PNPSI_ITS ---
Subjective Subjective Date of Service: 10/08/21 Reason For Visit: Manic Subjective Notes: Section 12B Healthcare Proxy: No Guardianship: No Medical Problems Affecting Mental Status: No Interim History: Meeting with pt, , Blake Nuñez PENSIONHOLDER INFORMATION CLERK. Discussed sx CARDIAC CATH LAB RADIOLOGY TECHNOLOGIST, discussed Lorazepam use, discussed ECT. Pt will sign a CV to end 12 B status. Both pt and agree that ECT should be on hold as addiction and MSE changes CARDIAC CATH LAB RADIOLOGY TECHNOLOGIST are primary sx currently. Discussed referrals-Discussed MRI which was ordered and supplement therapy to assist pt with memory impairment and cognitive decline she reports since admission. Medication Compliance: Yes Side effects from medications: Yes (?cognitive effects from [facility] benzodiazepine use) Attending Groups: Intermittent Review of Systems Acute medical concerns: No Medical Review of Systems: unchanged Review of Systems Constitutional: Reports anorexia, Reports difficulty sleeping, Reports fatigue, Reports lethargy, Reports malaise, Reports poor appetite, Reports weakness and Reports weight loss Eyes: Reports no additional eye complaints Reports Normal hearing present Cardiovascular: Reports no additional cardiovascular complaints Respiratory: Reports no additional respiratory complaints Gastrointestinal: Reports no additional gastrointestinal complaints Genitourinary: Reports no additional female genitourinary complaints Musculoskeletal: Reports no additional musculoskeletal complaints Skin/Breast: Reports dry skin and Reports wounds (BLE abrasions-pt reports shaving her legs, causing abrasions.) Reports Normal hearing present, Reports confusion, Reports weakness and Reports other (on 10/04 pt hit her head on a telephone pole (walked into it) CAT negative) Psychiatric: Reports abnormal sleep pattern, Reports confusion, Reports dep ression, Reports difficulty concentrating, Reports hopelessness, Reports irritability, Reports anhedonia, Reports mood swings, Reports panic attacks and Reports other (grief-mother 05/23/21.) Endocrine: Reports no additional endocrine complaints and Reports fatigue Hematologic/Lymphatic: Reports other (BLE abrasions post shaving) Allergic/Immunologic: Reports no additional allergic/immunologic complaints Mental Status Exam Mental Status Exam Patient Appearance: Fatigued Patient Orientation: Person, Place, Time and Situation Level of Consciousness: Alert Patient Behavior: Appropriate, Talkative, Cooperative and Good Eye Contact Mood Description: Depressed Affect Description: Flat Patient Cognition Impaired: No Ability to Follow Directions: Good Speech Pattern: Spontaneous Speech Memory Description: Episodic Impaired Hallucinations: None Delusions: Not Present Perceptual Disturbances: Depersonalization Thought Process: Rumination Thought Content: positive for Circumstantial and positive for Perseveration Depressive Symptoms: Increased Anxiety, Insomnia, Diff. Making Decisions, Increased Irritability, Difficulty Sleeping, Loss of Int. in Activity, Feelings of Worthlessness, Hopelessness, Feelings of Guilt, Unhappiness, Increased Fatigue, Low Self Esteem, Loss of Energy and Difficulty Concentrating Judgement: Fair Diagnostics Vital Signs (24Hr): Vital Signs - 24 hr 10/07/21 19:11 10/08/21 06:00 Temperature 97.1 F 98.1 F Pulse Rate 66 71 Respiratory Rate 16 18 Blood Pressure 104/59 L 106/71 Pulse Oximetry 98 97 BMI result Body Mass Index 22.4 Labs Results: 10/04/21 14:46 10/04/21 14:46 Imaging Radiology Impressions: ITS Impressions Chest X-Ray 10/04/21 15:45 IMPRESSION: Unremarkable examination. Head CT 10/04/21 19:00 IMPRESSION: No acute intracranial pathology. Brain MRI 10/08/21 15:37 IMPRESSION: No acute intracranial process. Minimal nonspecific scattered white matter signal changes. 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 Medications Medications Current Medications Acetaminophen (Acetaminophen 325 Mg Tablet) 650 mg PO Q6H PRN PRN Reason: Headache/Pain Mild Scale (1-3) Al Hydroxide/Mg Hydroxide (Magnesium Hydrox/Alum Hydrox 30 Ml Oral.Susp) 30 ml PO Q6H PRN PRN Reason: Heartburn/Nausea Albuterol Sulfate (Albuterol Sulfate 90 Mcg 8 Gm Inhaler) 2 puff INHALE Q4H PRN PRN Reason: shortness of breath or wheezing Atorvastatin Calcium (Atorvastatin Calcium 20 Mg Tablet) 20 mg PO BEDTIME [facility]END[facility] TO [facility] Last Admin: 10/07/21 22:43 Dose: Not Given Documented by: Haloperidol (Haloperidol 5 Mg Tablet) 5 mg PO Q4H PRN PRN Reason: agitation Last Admin: 10/07/21 11:26 Dose: 5 mg Documented by: Haloperidol (Haloperidol 1 Mg Tablet) 2 mg PO BID [facility] Last Admin: 10/08/21 07:57 Dose: 2 mg Documented by: Hydroxyzine HCl (Hydroxyzine Hcl 25 Mg Tablet) 25 mg PO TID PRN PRN Reason: Anxiety Last Admin: 10/08/21 10:49 Dose: 25 mg Documented by: Levothyroxine Sodium (Levothyroxine Sodium 75 Mcg Tablet) 75 mcg PO DAILY@0630 [facility] Last Admin: 10/08/21 06:01 Dose: 75 mcg Documented by: Irene Carbonate (Irene Carbonate Er 300 Mg Tablet.Er) 600 mg PO BEDTIME [facility] Last Admin: 10/07/21 22:43 Dose: Not Given Documented by: Magnesium Hydroxide (Milk Of Magnesia 30 Ml Oral.Susp) 30 ml PO DAILY PRN PRN Reason: Constipation Multivitamins/Vitamin C (Multivitamin Tablet) 1 tab PO DAILY [facility] Nicotine (Nicotine 21 Mg Patch.Td24) 21 mg TRANSDERMA DAILY [facility] Last Admin: 10/08/21 07:59 Dose: Not Given Documented by: Nicotine Polacrilex (Nicotine Polacrilex 2 Mg Gum) 4 mg BUCCAL Q2H PRN PRN Reason: Nicotine Cravings Pramipexole Dihydrochloride (Pramipexole Di-Hcl 0.25 Mg Tablet) 0.5 mg PO BEDTIME [facility] Last Admin: 10/07/21 22:43 Dose: Not Given Documented by: Pramipexole Dihydrochloride (Pramipexole Di-Hcl 0.25 Mg Tablet) 0.25 mg PO BID@0800,1500 [facility] Last Admin: 10/08/21 14:21 Dose: 0.25 mg Documented by: Pregabalin (Pregabalin 50 Mg Capsule) 50 mg PO 5XD [facility] Last Admin: 10/08/21 13:27 Dose: 50 mg Documented by: Thiamine HCl (Thiamine Hcl 100 Mg Tablet) 100 mg PO DAILY [facility] Trazodone HCl (Trazodone Hcl 50 Mg Tablet) 50 mg PO BEDTIME PRN PRN Reason: Insomnia Last Admin: 10/07/21 02:30 Dose: 50 mg Documented by: Vitamin D (Cholecalciferol (Vitamin D3) 25 Mcg Tablet) 25 mcg PO DAILY [facility] Last Admin: 10/08/21 07:57 Dose: 25 mcg Documented by: Allergies Allergies Allergy/AdvReac Type Severity Reaction Status Date / Time olanzapine [From ZYPREXA] AdvReac Intermediate RLS Verified 08/28/21 10:29 symptoms atypical antipsychotics AdvReac Severe This class Uncoded 02/06/21 09:37 appears to potentiate RLS/Akathesia Assessment & Plan Assessment & Plan (1) Bipolar II disorder: Status: Acute Code(s): F31.81 - Bipolar II disorder (2) Moderate benzodiazepine use disorder: Status: Acute Code(s): F13.20 - Sedative, hypnotic or anxiolytic dependence, uncomplicated (3) Cannabis use disorder, moderate, dependence: Status: Acute Code(s): F12.20 - Cannabis dependence, uncomplicated Plan 60 yo female, hx of bipolar disorder, type II and substance use disorder, cannabis, benzodiazepines. Pt recently discharged from with a plan to continue out patient ECT. After discharge, it is reported that she stopped medications, began to overuse Lorazepam which resulted in poor sleep, appetite and unmodulated behavior with irritability, lability warranting Section XIIB to return to in patient level of care. Pt is calm and cooperative on the unit. She is forthcoming-stating that she has a problem with benzodiazepines and she is experiencing significant grief over the of her mother on 05/23/21. She asks to continue ECT course and have referrals to addiction IOP upon completion of discharge so she may begin to work on a plan for sobriety. She discussed her symptoms of dysregulation and reports that Haldol has been helpful in the past and she has interest in continuing this plan. Plan: 1. Diagnostics A1c, Lipids, TSH, B12,Folate, Irene Level 2. Haldol 2 mg po BID 3. Return Irene to [address] HS[address] 4[address] Dr. Cuenca will re-evaluate for ongoing ECT course. 10/08/21: ECT course will be cancelled at this time Continue current regime MRI Brain Referrals for addiction IOP if available Pt plans to sign CV on 10/09. I spent minutes with the patient and/or on the patient floor today, greater than?50% of which was spent counseling/coordinating care. Patient educated on: diagnosis, medication risk/benefits, substance abuse, therapeutic strategies and medical condition Guardian/Caregiver educated on: diagnosis, medication risk/benefits, substance abuse, therapeutic strategies and medical condition Informed Consent: understands and further education needed Reason for contiued inpatient stay Substantial Risk for: harm to self, inability to function, rapid decompensation and med/psych decompensation
[2021-10-08 19:00] VITALS: BP 129/63; PULSE 69; RESP 18; TEMP 36.2; O2SAT 99
[2021-10-08] MEDS: Atorvastatin Calcium 20 MG TABLET PO (19:32)
[2021-10-08] MEDS: traZODone HCL 50 MG TABLET PO (19:32)
[2021-10-08] MEDS: Lithium Carbonate ER 300 MG TABLET.ER 600 MG PO (19:32)
[2021-10-08] MEDS: Pramipexole Di-HCL 0.25 MG TABLET 0.5 MG PO (19:32)
[2021-10-08] MEDS: Magnesium Hydrox/Alum Hydrox 30 ML ORAL.SUSP PO (20:47)
[2021-10-09 06:00] VITALS: BP 112/62; PULSE 78; RESP 18; TEMP 36.7; O2SAT 97
[2021-10-09] MEDS: Levothyroxine Sodium 75 MCG TABLET PO (06:37)
[2021-10-09] MEDS: Pregabalin 50 MG CAPSULE PO ×4 (06:37→20:46)
[2021-10-09] MEDS: Pramipexole Di-HCL 0.25 MG TABLET PO ×2 (09:04→15:12)
[2021-10-09] MEDS: Thiamine HCL 100 MG TABLET PO (09:04)
[2021-10-09] MEDS: Cholecalciferol (Vitamin D3) 25 MCG TABLET PO (09:04)
[2021-10-09] MEDS: Multivitamin TABLET 1 TAB PO (09:04)
[2021-10-09] MEDS: Benztropine Mesylate 1 MG TABLET PO ×2 (11:54→20:46)
[2021-10-09] MEDS: HaloperidoL 1 MG TABLET 2 MG PO ×2 (11:54→20:45)
--- NOTE | 2021-10-09 18:35 | HO.PSYCHPN ---
Subjective Subjective Date of Service: 10/09/21 Reason For Visit: Manic Subjective Notes: Conditional Voluntary Healthcare Proxy: No Guardianship: No Medical Problems Affecting Mental Status: No Interim History: Signed CV. Dscussed med side effects- crawling out of my skin feeling -?atarax, ?haldol. Will add benztropine bid and stop atarax. Pt reports some improvement, clarity returning. Will do labs for 10/12/21 Medication Compliance: Yes Side effects from medications: Yes Attending Groups: Intermittent Review of Systems Acute medical concerns: No Medical Review of Systems: unchanged Review of Systems Constitutional: Reports anorexia, Reports difficulty sleeping, Reports fatigue, Reports lethargy, Reports malaise, Reports poor appetite, Reports weakness and Reports weight loss Eyes: Reports no additional eye complaints Reports Normal hearing present Cardiovascular: Reports no additional cardiovascular complaints Respiratory: Reports no additional respiratory complaints Gastrointestinal: Reports no additional gastrointestinal complaints Genitourinary: Reports no additional female genitourinary complaints Musculoskeletal: Reports no additional musculoskeletal complaints Skin/Breast: Reports dry skin and Reports wounds (BLE abrasions-pt reports shaving her legs, causing abrasions.) Reports Normal hearing present, Reports confusion, Reports weakness and Reports other (on 10/04 pt hit her head on a telephone pole (walked into it) CAT negative) Psychiatric: Reports abnormal sleep pattern, Reports confusion, Reports depression, Reports difficulty concentrating, Reports hopelessness, Reports irritability, Reports anhedonia, Reports mood swings, Reports panic attacks and Reports other (grief-mother 05/23/21.) Endocrine: Reports no additional endocrine complaints and Reports fatigue Hematologic/Lymphatic: Reports other (BLE abrasions post shaving) Allergic/Immunologic: Reports no additional allergic/immunologic complaints Mental Status Exam Mental Status Exam Patient Appearance: Fatigued Patient Orientation: Person, Place, Time and Situation Level of Consciousness: Alert Patient Behavior: Appropriate, Talkative, Cooperative and Good Eye Contact Mood Description: Depressed Affect Description: Flat Patient Cognition Impaired: No Ability to Follow Directions: Good Speech Pattern: Spontaneous Speech Memory Description: Episodic Impaired Hallucinations: None Delusions: Not Present Perceptual Disturbances: Depersonalization Thought Process: Rumination Thought Content: positive for Circumstantial and positive for Perseveration Depressive Symptoms: Increased Anxiety, Insomnia, Diff. Making Decisions, Increased Irritability, Difficulty Sleeping, Loss of Int. in Activity, Feelings of Worthlessness, Hopelessness, Feelings of Guilt, Unhappiness, Increased Fatigue, Low Self Esteem, Loss of Energy and Difficulty Concentrating Judgement: Fair Diagnostics Vital Signs (24Hr): Vital Signs - 24 hr 10/08/21 19:00 10/09/21 06:00 Temperature 97.1 F 98.1 F Pulse Rate 69 78 Respiratory Rate 18 18 Blood Pressure 129/63 112/62 Pulse Oximetry 99 97 BMI result Body Mass Index 22.4 Labs Results: 10/04/21 14:46 10/04/21 14:46 Imaging Radiology Impressions: ITS Impressions Chest X-Ray 10/04/21 15:45 IMPRESSION: Unremarkable examination. Head CT 10/04/21 19:00 IMPRESSION: No acute intracranial pathology. Brain MRI 10/08/21 15:37 IMPRESSION: No acute intracranial process. Minimal nonspecific scattered white matter signal changes. 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 Medications Medications Current Medications Acetaminophen (Acetaminophen 325 Mg Tablet) 650 mg PO Q6H PRN PRN Reason: Headache/Pain Mild Scale (1-3) Al Hydroxide/Mg Hydroxide (Magnesium Hydrox/Alum Hydrox 30 Ml Oral.Susp) 30 ml PO Q6H PRN PRN Reason: Heartburn/Nausea Last Admin: 10/08/21 20:47 Dose: 30 ml Documented by: Albuterol Sulfate (Albuterol Sulfate 90 Mcg 8 Gm Inhaler) 2 puff INHALE Q4H PRN PRN Reason: shortness of breath or wheezing Atorvastatin Calcium (Atorvastatin Calcium 20 Mg Tablet) 20 mg PO BEDTIME [facility] Last Admin: 10/08/21 19:32 Dose: 20 mg Documented by: Benztropine Mesylate (Benztropine Mesylate 1 Mg Tablet) 1 mg PO BID [facility] Last Admin: 10/09/21 11:54 Dose: 1 mg Documented by: Haloperidol (Haloperidol 5 Mg Tablet) 5 mg PO Q4H PRN PRN Reason: agitation Last Admin: 10/07/21 11:26 Dose: 5 mg Documented by: Haloperidol (Haloperidol 1 Mg Tablet) 2 mg PO BID [facility] Last Admin: 10/09/21 11:54 Dose: 2 mg Documented by: Levothyroxine Sodium (Levothyroxine Sodium 75 Mcg Tablet) 75 mcg PO DAILY@0630 [facility] Last Admin: 10/09/21 06:37 Dose: 75 mcg Documented by: [place] Carbonate ([place] Carbonate Er 300 Mg Tablet.Er) 600 mg PO BEDTIME [facility] Last Admin: 10/08/21 19:32 Dose: 600 mg Documented by: Magnesium Hydroxide (Milk Of Magnesia 30 Ml Oral.Susp) 30 ml PO DAILY PRN PRN Reason: Constipation Multivitamins/Vitamin C (Multivitamin Tablet) 1 tab PO DAILY [facility] Last Admin: 10/09/21 09:04 Dose: 1 tab Documented by: Nicotine (Nicotine 21 Mg Patch.Td24) 21 mg TRANSDERMA DAILY [facility] Last Admin: 10/09/21 09:05 Dose: Not Given Documented by: Nicotine Polacrilex (Nicotine Polacrilex 2 Mg Gum) 4 mg BUCCAL Q2H PRN PRN Reason: Nicotine Cravings Pramipexole Dihydrochloride (Pramipexole Di-Hcl 0.25 Mg Tablet) 0.5 mg PO BEDTIME [facility] Last Admin: 10/08/21 19:32 Dose: 0.5 mg Documented by: Pramipexole Dihydrochloride (Pramipexole Di-Hcl 0.25 Mg Tablet) 0.25 mg PO BID@0800,1500 [facility] Last Admin: 10/09/21 15:12 Dose: 0.25 mg Documented by: Pregabalin (Pregabalin 50 Mg Capsule) 50 mg PO 5XD [facility] Last Admin: 10/09/21 15:12 Dose: 50 mg Documented by: Thiamine HCl (Thiamine Hcl 100 Mg Tablet) 100 mg PO DAILY [facility] Last Admin: 10/09/21 09:04 Dose: 100 mg Documented by: Trazodone HCl (Trazodone Hcl 50 Mg Tablet) 50 mg PO BEDTIME PRN PRN Reason: Insomnia Last Admin: 10/08/21 19:32 Dose: 50 mg Documented by: Vitamin D (Cholecalciferol (Vitamin D3) 25 Mcg Tablet) 25 mcg PO DAILY [facility] Last Admin: 10/09/21 09:04 Dose: 25 mcg Documented by: Allergies Allergies Allergy/AdvReac Type Severity Reaction Status Date / Time olanzapine [From ZYPREXA] AdvReac Intermediate RLS Verified 08/28/21 10:29 symptoms atypical antipsychotics AdvReac Severe This class Uncoded 02/06/21 09:37 appears to potentiate RLS/Akathesia Assessment & Plan Assessment & Plan (1) Bipolar II disorder: Status: Acute Code(s): F31.81 - Bipolar II disorder (2) Moderate benzodiazepine use disorder: Status: Acute Code(s): F13.20 - Sedative, hypnotic or anxiolytic dependence, uncomplicated (3) Cannabis use disorder, moderate, dependence: Status: Acute Code(s): F12.20 - Cannabis dependence, uncomplicated Plan 60 yo female, hx of bipolar disorder, type II and substance use disorder, cannabis, benzodiazepines. Pt recently discharged from with a plan to continue out patient ECT. After discharge, it is reported that she stopped medications, began to overuse Lorazepam which resulted in poor sleep, appetite and unmodulated behavior with irritability, lability warranting Section XIIB to return to in patient level of care. Pt is calm and cooperative on the unit. She is forthcoming-stating that she has a problem with benzodiazepines and she is experiencing significant grief over the of her mother on 05/23/21. She asks to continue ECT course and have referrals to addiction IOP upon completion of discharge so she may begin to work on a plan for sobriety. She discussed her symptoms of dysregulation and reports that Haldol has been helpful in the past and she has interest in continuing this plan. Plan: 1. Diagnostics A1c, Lipids, TSH, B12,Folate, [place] Level 2. Haldol 2 mg po BID 3. Return [place] to 600 [address] HS[address] 4[address] Dr. Cuenca will re-evaluate for ongoing ECT course. 10/08/21: ECT course will be cancelled at this time Continue current regime MRI Brain Referrals for addiction IOP if available Pt plans to sign CV on 10/09. 10/09/21: CV signed Benztropine 1 mg bid Discontinue Atarax [place], TSH, Chemistry Panel 10/12. I spent minutes with the patient and/or on the patient floor today, greater than?50% of which was spent counseling/coordinating care. Patient educated on: medication risk/benefits Informed Consent: understands and further education needed Reason for contiued inpatient stay Substantial Risk for: harm to self, inability to function, rapid decompensation and med/psych decompensation
[2021-10-09] MEDS: Atorvastatin Calcium 20 MG TABLET PO (20:45)
[2021-10-09] MEDS: Lithium Carbonate ER 300 MG TABLET.ER 600 MG PO (20:45)
[2021-10-09] MEDS: Pramipexole Di-HCL 0.25 MG TABLET 0.5 MG PO (20:45)
[2021-10-09 21:05] VITALS: BP 125/65; PULSE 65; RESP 18; TEMP 36.2; O2SAT 98
[2021-10-09] MEDS: Mineral Oil/Petrolatum,White 106 GM Tube 1 APPL TOPICAL (21:56)
[2021-10-09] MEDS: traZODone HCL 50 MG TABLET PO (22:53)
[2021-10-10 06:00] VITALS: BP 105/61; PULSE 63; TEMP 36.7; O2SAT 96
[2021-10-10] MEDS: Levothyroxine Sodium 75 MCG TABLET PO (06:08)
[2021-10-10] MEDS: Pregabalin 50 MG CAPSULE PO ×4 (06:08→18:42)
[2021-10-10] MEDS: Thiamine HCL 100 MG TABLET PO (08:33)
[2021-10-10] MEDS: Cholecalciferol (Vitamin D3) 25 MCG TABLET PO (08:33)
[2021-10-10] MEDS: HaloperidoL 1 MG TABLET 2 MG PO (08:34)
[2021-10-10] MEDS: Pramipexole Di-HCL 0.25 MG TABLET PO ×2 (08:34→15:04)
[2021-10-10] MEDS: Multivitamin TABLET 1 TAB PO (08:34)
[2021-10-10] MEDS: Benztropine Mesylate 1 MG TABLET PO (08:36)
--- NOTE | 2021-10-10 11:33 | P.PNPSI_ITS ---
Subjective Subjective Date of Service: 10/10/21 Reason For Visit: Manic Subjective Notes: Conditional Voluntary Medical Problems Affecting Mental Status: No Interim History: Patient was seen in rounds today. She states that she is doing better. ECT considerations continue to be on hold. She continues to have some irritability, anxiety and pacing but overall she is holding her own. She does complain of not sleeping and I will increase her trazodone to 100 mg. No complaints or side effects otherwise. Eating adequately and sleeping discussed. No SI. No changes were made other than the increase of trazodone Medication Compliance: Yes Side effects from medications: No Review of Systems Review of Systems Poor sleep Yes all other systems are reviewed and are negative Diagnostics Vital Signs (24Hr): Vital Signs - 24 hr 10/09/21 21:05 10/10/21 06:00 Temperature 97.1 F 98.0 F Pulse Rate 65 63 Respiratory Rate 18 Blood Pressure 125/65 105/61 Pulse Oximetry 98 96 BMI result Body Mass Index 22.4 Labs Results: 10/04/21 14:46 10/04/21 14:46 Imaging Radiology Impressions: ITS Impressions Chest X-Ray 10/04/21 15:45 IMPRESSION: Unremarkable examination. Head CT 10/04/21 19:00 IMPRESSION: No acute intracranial pathology. Brain MRI 10/08/21 15:37 IMPRESSION: No acute intracranial process. Minimal nonspecific scattered white matter signal changes. 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 Medications Medications Current Medications Acetaminophen (Acetaminophen 325 Mg Tablet) 650 mg PO Q6H PRN PRN Reason: Headache/Pain Mild Scale (1-3) Al Hydroxide/Mg Hydroxide (Magnesium Hydrox/Alum Hydrox 30 Ml Oral.Susp) 30 ml PO Q6H PRN PRN Reason: Heartburn/Nausea Last Admin: 10/08/21 20:47 Dose: 30 ml Documented by: Albuterol Sulfate (Albuterol Sulfate 90 Mcg 8 Gm Inhaler) 2 puff INHALE Q4H PRN PRN Reason: shortness of breath or wheezing Atorvastatin Calcium (Atorvastatin Calcium 20 Mg Tablet) 20 mg PO BEDTIME [facility] Last Admin: 10/09/21 20:45 Dose: 20 mg Documented by: Benztropine Mesylate (Benztropine Mesylate 1 Mg Tablet) 1 mg PO BID [facility] Last Admin: 10/10/21 08:36 Dose: 1 mg Documented by: Haloperidol (Haloperidol 5 Mg Tablet) 5 mg PO Q4H PRN PRN Reason: agitation Last Admin: 10/07/21 11:26 Dose: 5 mg Documented by: Haloperidol (Haloperidol 1 Mg Tablet) 2 mg PO BID [facility] Last Admin: 10/10/21 08:34 Dose: 2 mg Documented by: Levothyroxine Sodium (Levothyroxine Sodium 75 Mcg Tablet) 75 mcg PO DAILY@0630 [facility] Last Admin: 10/10/21 06:08 Dose: 75 mcg Documented by: [place] Carbonate ([place] Carbonate Er 300 Mg Tablet.Er) 600 mg PO BEDTIME [facility] Last Admin: 10/09/21 20:45 Dose: 600 mg Documented by: Magnesium Hydroxide (Milk Of Magnesia 30 Ml Oral.Susp) 30 ml PO DAILY PRN PRN Reason: Constipation Multi-Ingred Cream/Lotion/Oil/Oint (Mineral Oil/Petrolatum,White 106 Gm Tube) 1 appl TOPICAL TID PRN PRN Reason: pruritic skin Last Admin: 10/09/21 21:56 Dose: 1 appl Documented by: Multivitamins/Vitamin C (Multivitamin Tablet) 1 tab PO DAILY [facility] Last Admin: 10/10/21 08:34 Dose: 1 tab Documented by: Nicotine (Nicotine 21 Mg Patch.Td24) 21 mg TRANSDERMA DAILY [facility] Last Admin: 10/10/21 08:57 Dose: Not Given Documented by: Nicotine Polacrilex (Nicotine Polacrilex 2 Mg Gum) 4 mg BUCCAL Q2H PRN PRN Reason: Nicotine Cravings Pramipexole Dihydrochloride (Pramipexole Di-Hcl 0.25 Mg Tablet) 0.5 mg PO BEDTIME [facility] Last Admin: 10/09/21 20:45 Dose: 0.5 mg Documented by: Pramipexole Dihydrochloride (Pramipexole Di-Hcl 0.25 Mg Tablet) 0.25 mg PO BID@0800,1500 [facility] Last Admin: 10/10/21 08:34 Dose: 0.25 mg Documented by: Pregabalin (Pregabalin 50 Mg Capsule) 50 mg PO 5XD [facility] Last Admin: 10/10/21 11:21 Dose: 50 mg Documented by: Thiamine HCl (Thiamine Hcl 100 Mg Tablet) 100 mg PO DAILY [facility] Last Admin: 10/10/21 08:33 Dose: 100 mg Documented by: Trazodone HCl (Trazodone Hcl 50 Mg Tablet) 50 mg PO BEDTIME PRN PRN Reason: Insomnia Last Admin: 10/09/21 22:53 Dose: 50 mg Documented by: Vitamin D (Cholecalciferol (Vitamin D3) 25 Mcg Tablet) 25 mcg PO DAILY [facility] Last Admin: 10/10/21 08:33 Dose: 25 mcg Documented by: Allergies Allergies Allergy/AdvReac Type Severity Reaction Status Date / Time olanzapine [From ZYPREXA] AdvReac Intermediate RLS Verified 08/28/21 10:29 symptoms atypical antipsychotics AdvReac Severe This class Uncoded 02/06/21 09:37 appears to potentiate RLS/Akathesia Assessment & Plan Assessment & Plan (1) Bipolar II disorder: Status: Acute Code(s): F31.81 - Bipolar II disorder (2) Moderate benzodiazepine use disorder: Status: Acute Code(s): F13.20 - Sedative, hypnotic or anxiolytic dependence, uncomplicated (3) Cannabis use disorder, moderate, dependence: Status: Acute Code(s): F12.20 - Cannabis dependence, uncomplicated Plan 60 yo female, hx of bipolar disorder, type II and substance use disorder, cannabis, benzodiazepines. Pt recently discharged from with a plan to continue out patient ECT. After discharge, it is reported that she stopped medications, began to overuse Loraze josephine which resulted in poor sleep, appetite and unmodulated behavior with irritability, lability warranting Section XIIB to return to in patient level of care. Pt is calm and cooperative on the unit. She is forthcoming-stating that she has a problem with benzodiazepines and she is experiencing significant grief over the of her mother on 05/23/21. She asks to continue ECT course and have referrals to addiction IOP upon completion of discharge so she may begin to work on a plan for sobriety. She discussed her symptoms of dysregulation and reports that Haldol has been helpful in the past and she has interest in continuing this plan. Plan: 1. Diagnostics A1c, Lipids, TSH, B12,Folate, [place] Level 2. Haldol 2 mg po BID 3. Return [place] to [address] Cuenca will re-evaluate for ongoing ECT course. 10/08/21: ECT course will be cancelled at this time Continue current regime MRI Brain Referrals for addiction IOP if available Pt plans to sign CV on 10/09. 10/09/21: CV signed Benztropine 1 mg bid Discontinue Atarax [place], TSH, Chemistry Panel 10/12. 10/10: Continue current regimen with increase of trazodone to 100 mg I spent minutes with the patient and/or on the patient floor today, greater than?50% of which was spent counseling/coordinating care. Patient educated on: medication risk/benefits Reason for contiued inpatient stay Substantial Risk for: med/psych decompensation
[2021-10-10] MEDS: Mineral Oil/Petrolatum,White 106 GM Tube 1 APPL TOPICAL (15:03)
[2021-10-10 18:19] VITALS: BP 151/67; PULSE 64; TEMP 36.6; O2SAT 99
[2021-10-10] MEDS: Pramipexole Di-HCL 0.25 MG TABLET 0.5 MG PO (22:08)
[2021-10-10] MEDS: Lithium Carbonate ER 300 MG TABLET.ER 600 MG PO (22:09)
[2021-10-10] MEDS: Zolpidem Tartrate 5 MG TABLET PO (22:51)
--- NOTE | 2021-10-10 23:02 | PC.NURSE ---
PT complains of insomnia and only sleeping for 1 hour over the last 24 hours. PT reports restless feeling from Trazodone and refuses to take. PT reports paradoxical effects from Seroquel and Benadryl and requests a one time dose of Ambien. on call pharmacy technician contacted, one time dose of Ambien 5mg PO ordered. Effect pending.
[2021-10-11] MEDS: Pregabalin 50 MG CAPSULE PO ×5 (05:31→23:01)
[2021-10-11] MEDS: Levothyroxine Sodium 75 MCG TABLET PO (05:31)
[2021-10-11 06:15] VITALS: BP 104/61; PULSE 58; RESP 16; TEMP 36.1; O2SAT 99
[2021-10-11] MEDS: Cholecalciferol (Vitamin D3) 25 MCG TABLET PO (08:16)
[2021-10-11] MEDS: Thiamine HCL 100 MG TABLET PO (08:16)
[2021-10-11] MEDS: Pramipexole Di-HCL 0.25 MG TABLET PO ×2 (08:16→14:08)
[2021-10-11] MEDS: Multivitamin TABLET 1 TAB PO (08:16)
[2021-10-11] MEDS: Benztropine Mesylate 1 MG TABLET PO ×2 (08:16→19:23)
[2021-10-11] MEDS: HaloperidoL 1 MG TABLET 2 MG PO ×2 (08:16→20:26)
--- NOTE | 2021-10-11 11:06 | HO.PSYCHPN ---
Subjective Subjective Date of Service: 10/11/21 Reason For Visit: Manic Subjective Notes: Conditional Voluntary Medical Problems Affecting Mental Status: No Interim History: Patient was seen and discussed in rounds today. She had a very hard time sleeping last night and eventually Ambien 5 mg was very helpful with which she slept 5-6 hours. She was also requesting for something during the day for anxiety and it appears she does have p.r.n. Haldol available and has found Haldol generally very helpful. No other complaints or side effects. Eating adequately and sleeping discussed. Medication Compliance: Yes Side effects from medications: Yes (Paradoxical reaction to trazodone) Review of Systems Review of Systems Poor sleep Yes all other systems are reviewed and are negative Diagnostics Vital Signs (24Hr): Vital Signs - 24 hr 10/10/21 18:19 10/11/21 06:15 Temperature 97.8 F 97 F Pulse Rate 64 58 Respiratory Rate 16 Blood Pressure 151/67 H 104/61 Pulse Oximetry 99 99 BMI result Body Mass Index 22.4 Labs Results: 10/04/21 14:46 10/04/21 14:46 Imaging Radiology Impressions: ITS Impressions Chest X-Ray 10/04/21 15:45 IMPRESSION: Unremarkable examination. Head CT 10/04/21 19:00 IMPRESSION: No acute intracranial pathology. Brain MRI 10/08/21 15:37 IMPRESSION: No acute intracranial process. Minimal nonspecific scattered white matter signal changes. 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 Medications Medications Current Medications Acetaminophen (Acetaminophen 325 Mg Tablet) 650 mg PO Q6H PRN PRN Reason: Headache/Pain Mild Scale (1-3) Al Hydroxide/Mg Hydroxide (Magnesium Hydrox/Alum Hydrox 30 Ml Oral.Susp) 30 ml PO Q6H PRN PRN Reason: Heartburn/Nausea Last Admin: 10/08/21 20:47 Dose: 30 ml Documented by: Albuterol Sulfate (Albuterol Sulfate 90 Mcg 8 Gm Inhaler) 2 puff INHALE Q4H PRN PRN Reason: shortness of breath or wheezing Atorvastatin Calcium (Atorvastatin Calcium 20 Mg Tablet) 20 mg PO BEDTIME [facility] Last Admin: 10/10/21 22:01 Dose: Not Given Documented by: Benztropine Mesylate (Benztropine Mesylate 1 Mg Tablet) 1 mg PO BID [facility] Last Admin: 10/11/21 08:16 Dose: 1 mg Documented by: Haloperidol (Haloperidol 5 Mg Tablet) 5 mg PO Q4H PRN PRN Reason: agitation Last Admin: 10/07/21 11:26 Dose: 5 mg Documented by: Haloperidol (Haloperidol 1 Mg Tablet) 2 mg PO BID [facility] Last Admin: 10/11/21 08:16 Dose: 2 mg Documented by: Levothyroxine Sodium (Levothyroxine Sodium 75 Mcg Tablet) 75 mcg PO DAILY@0630 [facility] Last Admin: 10/11/21 05:31 Dose: 75 mcg Documented by: [place] Carbonate ([place] Carbonate Er 300 Mg Tablet.Er) 600 mg PO BEDTIME [facility] Last Admin: 10/10/21 22:09 Dose: 600 mg Documented by: Magnesium Hydroxide (Milk Of Magnesia 30 Ml Oral.Susp) 30 ml PO DAILY PRN PRN Reason: Constipation Multi-Ingred Cream/Lotion/Oil/Oint (Mineral Oil/Petrolatum,White 106 Gm Tube) 1 appl TOPICAL TID PRN PRN Reason: pruritic skin Last Admin: 10/10/21 15:03 Dose: 1 appl Documented by: Multivitamins/Vitamin C (Multivitamin Tablet) 1 tab PO DAILY [facility] Last Admin: 10/11/21 08:16 Dose: 1 tab Documented by: Nicotine (Nicotine 21 Mg Patch.Td24) 21 mg TRANSDERMA DAILY [facility] Last Admin: 10/11/21 08:31 Dose: Not Given Documented by: Nicotine Polacrilex (Nicotine Polacrilex 2 Mg Gum) 4 mg BUCCAL Q2H PRN PRN Reason: Nicotine Cravings Pramipexole Dihydrochloride (Pramipexole Di-Hcl 0.25 Mg Tablet) 0.5 mg PO BEDTIME [facility] Last Admin: 10/10/21 22:08 Dose: 0.5 mg Documented by: Pramipexole Dihydrochloride (Pramipexole Di-Hcl 0.25 Mg Tablet) 0.25 mg PO BID@0800,1500 [facility] Last Admin: 10/11/21 08:16 Dose: 0.25 mg Documented by: Pregabalin (Pregabalin 50 Mg Capsule) 50 mg PO 5XD [facility] Last Admin: 10/11/21 10:27 Dose: 50 mg Documented by: Thiamine HCl (Thiamine Hcl 100 Mg Tablet) 100 mg PO DAILY [facility] Last Admin: 10/11/21 08:16 Dose: 100 mg Documented by: Trazodone HCl (Trazodone Hcl 100 Mg Tablet) 100 mg PO BEDTIME PRN PRN Reason: Insomnia Vitamin D (Cholecalciferol (Vitamin D3) 25 Mcg Tablet) 25 mcg PO DAILY [facility] Last Admin: 10/11/21 08:16 Dose: 25 mcg Documented by: Zolpidem Tartrate (Zolpidem Tartrate 5 Mg Tablet) 5 mg PO ONCE ONE Stop: 10/11/21 11:03 Allergies Allergies Allergy/AdvReac Type Severity Reaction Status Date / Time olanzapine [From ZYPREXA] AdvReac Intermediate RLS Verified 08/28/21 10:29 symptoms atypical antipsychotics AdvReac Severe This class Uncoded 02/06/21 09:37 appears to potentiate RLS/Akathesia Assessment & Plan Assessment & Plan (1) Bipolar II disorder: Status: Acute Code(s): F31.81 - Bipolar II disorder (2) Moderate benzodiazepine use disorder: Status: Acute Code(s): F13.20 - Sedative, hypnotic or anxiolytic dependence, uncomplicated (3) Cannabis use disorder, moderate, dependence: Status: Acute Code(s): F12.20 - Cannabis dependence, uncomplicated Plan 60 yo female, hx of bipolar disorder, type II and substance use disorder, cannabis, benzodiazepines. Pt recently discharged from with a plan to continue out patient ECT. After discharge, it is reported that she stopped medications, began to overuse Lorazepam which resulted in poor sleep, appetite and unmodulated behavior with irritability, lability warranting Section XIIB to return to in patient level of care. Pt is calm and cooperative on the unit. She is forthcoming-stating that she has a problem with benzodiazepines and she is experiencing significant grief over the of her mother on 05/23/21. She asks to continue ECT course and have referrals to addiction IOP upon completion of discharge so she may begin to work on a plan for sobriety. She discussed her symptoms of dysregulation and reports that Haldol has been helpful in the past and she has interest in continuing this plan. Plan: 1. Diagnostics A1c, Lipids, TSH, B12,Folate, [place] Level 2. Haldol 2 mg po BID 3. Return [place] to [address]. Cuenca will re-evaluate for ongoing ECT course. 10/08/21: ECT course will be cancelled at this time Continue current regime MRI Brain Referrals for addiction IOP if available Pt plans to sign CV on 10/09. 10/09/21: CV signed Benztropine 1 mg bid Discontinue Atarax [place], TSH, Chemistry Panel 10/12. 10/10: Continue current regimen with increase of trazodone to 100 mg 10/11: Continue current regimen with addition of Ambien 5 mg for tonight only to be discussed with staff tomorrow I spent minutes with the patient and/or on the patient floor today, greater than?50% of which was spent counseling/coordinating care. Patient educated on: medication risk/benefits Reason for contiued inpatient stay Substantial Risk for: other
[2021-10-11] MEDS: Magnesium Hydrox/Alum Hydrox 30 ML ORAL.SUSP PO (13:39)
[2021-10-11] MEDS: HaloperidoL 1 MG TABLET PO ×2 (14:20→19:23)
[2021-10-11 18:00] VITALS: BP 135/63; PULSE 63; TEMP 37.1; O2SAT 97
[2021-10-11] MEDS: Lithium Carbonate ER 300 MG TABLET.ER 600 MG PO (20:24)
[2021-10-11] MEDS: Zolpidem Tartrate 5 MG TABLET PO (20:25)
[2021-10-11] MEDS: Atorvastatin Calcium 20 MG TABLET PO (20:25)
[2021-10-11] MEDS: Pramipexole Di-HCL 0.25 MG TABLET 0.5 MG PO (20:26)
[2021-10-12 06:00] VITALS: BP 106/56; PULSE 84; RESP 18; TEMP 36.9; O2SAT 96
[2021-10-12] MEDS: Pregabalin 50 MG CAPSULE PO ×5 (06:06→21:18)
[2021-10-12] MEDS: Levothyroxine Sodium 75 MCG TABLET PO (06:06)
[2021-10-12] MEDS: Benztropine Mesylate 1 MG TABLET PO ×2 (06:25→21:15)
[2021-10-12] MEDS: HaloperidoL 1 MG TABLET 2 MG PO ×2 (06:25→21:14)
[2021-10-12] MEDS: Pramipexole Di-HCL 0.25 MG TABLET PO ×2 (08:00→14:30)
[2021-10-12] MEDS: Cholecalciferol (Vitamin D3) 25 MCG TABLET PO (08:00)
[2021-10-12] MEDS: Multivitamin TABLET 1 TAB PO (08:00)
[2021-10-12] MEDS: Thiamine HCL 100 MG TABLET PO (08:01)
[2021-10-12 08:24] LABS: Lithium 0.81 mmol/L (0.60-1.20)
[2021-10-12 08:32] LABS: Alanine Aminotransferase 7 U/L (0-31); Albumin Level 4.2 g/dL (3.5-5.0); Alkaline Phosphatase 105 U/L (39-117); Anion Gap 10 (12-20); Aspartate Amino Transferase 12 U/L (5-31); Bilirubin Total 1.1 mg/dL (0.0-1.0); Blood Urea Nitrogen 12 mg/dL (9-16); Carbon Dioxide 30 mmol/L (22-29); Chloride 104 mmol/L (96-108); Creatinine Clr Calc Pharmacy 48.3; Estimated Glomerular Filt Rate > 60; Glucose Random 118 mg/dL (60-115); Sodium 139 mmol/L (135-145); Total Protein 6.8 g/dL (6.5-8.0)
[2021-10-12 08:52] LABS: Thyroid Stimulating Hormone 3.24 uIU/mL (0.32-4.0)
[2021-10-12] MEDS: HaloperidoL 1 MG TABLET PO ×3 (10:58→17:44)
--- NOTE | 2021-10-12 13:16 | P.PNPSI_ITS ---
Subjective Subjective Date of Service: 10/12/21 Reason For Visit: Manic Subjective Notes: Conditional Voluntary Healthcare Proxy: No Guardianship: No Medical Problems Affecting Mental Status: No Interim History: Jaja reports poor sleep over the weekend. Given Ambien by covering MD. Discussed risks in using this. States she slept 2 hours Mor night-hx of difficulty with atypicals (akathesia). Discussed adding Lamictal to [place] (level today is 0.8) which she agrees to. Looking forward to attending an addiction program-applications are pending. Appears improved-clear, alert, attentive, insightful in discussion Medication Compliance: Yes Side effects from medications: No Attending Groups: Yes Review of Systems Acute medical concerns: No Medical Review of Systems: unchanged Review of Systems Psychiatric: Reports abnormal sleep pattern Mental Status Exam Mental Status Exam Patient Appearance: Appropriate Patient Orientation: Person, Place, Time and Situation Level of Consciousness: Alert Patient Behavior: Appropriate, Talkative, Cooperative and Good Eye Contact Mood Description: Apprehensive Affect Description: Appropriate Patient Cognition Impaired: No Ability to Follow Directions: Good Speech Pattern: Spontaneous Speech Memory Description: Intact Hallucinations: None Delusions: Not Present Thought Process: Intact and Goal Oriented Thought Content: positive for Intact, positive for Goal Oriented, positive for Suicidal Ideation (denies) and positive for Homicidal Ideation (denies) Depressive Symptoms: Insomnia and Difficulty Sleeping Judgement: Good Diagnostics Vital Signs (24Hr): Vital Signs - 24 hr 10/11/21 18:00 10/12/21 06:00 Temperature 98.7 F 98.5 F Pulse Rate 63 84 Respiratory Rate 18 Blood Pressure 135/63 106/56 L Pulse Oximetry 97 96 BMI result Body Mass Index 22.4 Labs Results: 10/04/21 14:46 10/12/21 08:07 Labs: Laboratory Results - last 48 hr 10/12/21 10/12/21 08:07 08:07 Sodium 139 Potassium 5.0 Chloride 104 Carbon Dioxide 30 H Anion Gap 10 L BUN 12 Creatinine 0.80 Estim Creat Clear Calc 48.3 Estimated GFR > 60 Random Glucose 118 H Calcium 10.0 Total Bilirubin 1.1 H AST 12 ALT 7 Alkaline Phosphatase 105 Total Protein 6.8 Albumin 4.2 TSH 3.24 [place] 0.81 Imaging Radiology Impressions: ITS Impressions Chest X-Ray 10/04/21 15:45 IMPRESSION: Unremarkable examination. Head CT 10/04/21 19:00 IMPRESSION: No acute intracranial pathology. Brain MRI 10/08/21 15:37 IMPRESSION: No acute intracranial process. Minimal nonspecific scattered white matter signal changes. 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 Medications Medications Current Medications Acetaminophen (Acetaminophen 325 Mg Tablet) 650 mg PO Q6H PRN PRN Reason: Headache/Pain Mild Scale (1-3) Al Hydroxide/Mg Hydroxide (Magnesium Hydrox/Alum Hydrox 30 Ml Oral.Susp) 30 ml PO Q6H PRN PRN Reason: Heartburn/Nausea Last Admin: 10/11/21 13:39 Dose: 30 ml Documented by: Albuterol Sulfate (Albuterol Sulfate 90 Mcg 8 Gm Inhaler) 2 puff INHALE Q4H PRN PRN Reason: shortness of breath or wheezing Atorvastatin Calcium (Atorvastatin Calcium 20 Mg Tablet) 20 mg PO BEDTIME [facility] Last Admin: 10/11/21 20:25 Dose: 20 mg Documented by: Benztropine Mesylate (Benztropine Mesylate 1 Mg Tablet) 1 mg PO BID [facility] Last Admin: 10/12/21 06:25 Dose: 1 mg Documented by: Haloperidol (Haloperidol 1 Mg Tablet) 2 mg PO BID [facility] Last Admin: 10/12/21 06:25 Dose: 2 mg Documented by: Haloperidol (Haloperidol 1 Mg Tablet) 1 mg PO TID PRN PRN Reason: Anxiety Last Admin: 10/12/21 10:58 Dose: 1 mg Documented by: Lamotrigine (Lamotrigine 25 Mg Tablet) 25 mg PO BEDTIME [facility] Levothyroxine Sodium (Levothyroxine Sodium 75 Mcg Tablet) 75 mcg PO DAILY@0630 [facility] Last Admin: 10/12/21 06:06 Dose: 75 mcg Documented by: [place] Carbonate ([place] Carbonate Er 300 Mg Tablet.Er) 600 mg PO BEDTIME [facility] Last Admin: 10/11/21 20:24 Dose: 600 mg Documented by: Magnesium Hydroxide (Milk Of Magnesia 30 Ml Oral.Susp) 30 ml PO DAILY PRN PRN Reason: Constipation Multi-Ingred Cream/Lotion/Oil/Oint (Mineral Oil/Petrolatum,White 106 Gm Tube) 1 appl TOPICAL TID PRN PRN Reason: pruritic skin Last Admin: 10/10/21 15:03 Dose: 1 appl Documented by: Multivitamins/Vitamin C (Multivitamin Tablet) 1 tab PO DAILY [facility] Last Admin: 10/12/21 08:00 Dose: 1 tab Documented by: Nicotine (Nicotine 21 Mg Patch.Td24) 21 mg TRANSDERMA DAILY [facility] Last Admin: 10/12/21 08:00 Dose: Not Given Documented by: Nicotine Polacrilex (Nicotine Polacrilex 2 Mg Gum) 4 mg BUCCAL Q2H PRN PRN Reason: Nicotine Cravings Pramipexole Dihydrochloride (Pramipexole Di-Hcl 0.25 Mg Tablet) 0.5 mg PO BEDTIME [facility] Last Admin: 10/11/21 20:26 Dose: 0.5 mg Documented by: Pramipexole Dihydrochloride (Pramipexole Di-Hcl 0.25 Mg Tablet) 0.25 mg PO BID@0800,1500 [facility] Last Admin: 10/12/21 08:00 Dose: 0.25 mg Documented by: Pregabalin (Pregabalin 50 Mg Capsule) 50 mg PO 5XD [facility] Last Admin: 10/12/21 10:10 Dose: 50 mg Documented by: Thiamine HCl (Thiamine Hcl 100 Mg Tablet) 100 mg PO DAILY [facility] Last Admin: 10/12/21 08:01 Dose: 100 mg Documented by: Trazodone HCl (Trazodone Hcl 100 Mg Tablet) 100 mg PO BEDTIME PRN PRN Reason: Insomnia Vitamin D (Cholecalciferol (Vitamin D3) 25 Mcg Tablet) 25 mcg PO DAILY [facility] Last Admin: 10/12/21 08:00 Dose: 25 mcg Documented by: Zolpidem Tartrate (Zolpidem Tartrate 5 Mg Tablet) 5 mg PO BEDTIME PRN PRN Reason: Insomnia Allergies Allergies Allergy/AdvReac Type Severity Reaction Status Date / Time olanzapine [From ZYPREXA] AdvReac Intermediate RLS Verified 08/28/21 10:29 symptoms atypical antipsychotics AdvReac Severe This class Uncoded 02/06/21 09:37 appears to potentiate RLS/Akathesia Assessment & Plan Assessment & Plan (1) Bipolar II disorder: Status: Acute Code(s): F31.81 - Bipolar II disorder (2) Moderate benzodiazepine use disorder: Status: Acute Code(s): F13.20 - Sedative, hypnotic or anxiolytic dependence, uncomplicated (3) Cannabis use disorder, moderate, dependence: Status: Acute Code(s): F12.20 - Cannabis dependence, uncomplicated Plan 60 yo female, hx of bipolar disorder, type II and substance use disorder, canna bis, benzodiazepines. Pt recently discharged from with a plan to continue out patient ECT. After discharge, it is reported that she stopped medications, began to overuse Lorazepam which resulted in poor sleep, appetite and unmodulated behavior with irritability, lability warranting Section XIIB to return to in patient level of care. Pt is calm and cooperative on the unit. She is forthcoming-stating that she has a problem with benzodiazepines and she is experiencing significant grief over the of her mother on 05/23/21. She asks to continue ECT course and have referrals to addiction IOP upon completion of discharge so she may begin to work on a plan for sobriety. She discussed her symptoms of dysregulation and reports that Haldol has been helpful in the past and she has interest in continuing this plan. Plan: 1. Diagnostics A1c, Lipids, TSH, B12,Folate, [place] Level 2. Haldol 2 mg po BID 3. Return [place] to [address] HS[address] 4[address]. Cuenca will re-evaluate for ongoing ECT course. 10/08/21: ECT course will be cancelled at this time Continue current regime MRI Brain Referrals for addiction IOP if available Pt plans to sign CV on 10/09. 10/09/21: CV signed Benztropine 1 mg bid Discontinue Atarax [place], TSH, Chemistry Panel 10/12. 10/10: Continue current regimen with increase of trazodone to 100 mg 10/11: Continue current regimen with addition of Ambien 5 mg for tonight only to be discussed with staff tomorrow 10/12/20: Reports difficulty sleeping while in pt. Given Ambien over the weekend with effects. Discussed risk/benefit. Also discussed this being a possible sx of poor mood control-Plan: Begin Lamictal 25 mg HS, continue Ambien prn during in pt-pt does not believe it will be needed upon discharge. Monitor sleep/mood/response to changes. Pt hoping to participate in an addiction IOP if accepted. I spent minutes with the patient and/or on the patient floor today, greater than?50% of which was spent counseling/coordinating care. Patient educated on: medication risk/benefits, substance abuse and therapeutic strategies Informed Consent: understands and further education needed Reason for contiued inpatient stay Substantial Risk for: inability to function and rapid decompensation
--- NOTE | 2021-10-12 16:05 | HO.PSYCHPN ---
Subjective Subjective Reason For Visit: Manic Diagnostics Vital Signs (24Hr): Vital Signs - 24 hr 10/11/21 18:00 10/12/21 06:00 Temperature 98.7 F 98.5 F Pulse Rate 63 84 Respiratory Rate 18 Blood Pressure 135/63 106/56 L Pulse Oximetry 97 96 BMI result Body Mass Index 22.4 Labs Results: 10/04/21 14:46 10/12/21 08:07 Labs: Laboratory Results - last 48 hr 10/12/21 10/12/21 08:07 08:07 Sodium 139 Potassium 5.0 Chloride 104 Carbon Dioxide 30 H Anion Gap 10 L BUN 12 Creatinine 0.80 Estim Creat Clear Calc 48.3 Estimated GFR > 60 Random Glucose 118 H Calcium 10.0 Total Bilirubin 1.1 H AST 12 ALT 7 Alkaline Phosphatase 105 Total Protein 6.8 Albumin 4.2 TSH 3.24 [place] 0.81 Imaging Radiology Impressions: ITS Impressions Chest X-Ray 10/04/21 15:45 IMPRESSION: Unremarkable examination. Head CT 10/04/21 19:00 IMPRESSION: No acute intracranial pathology. Brain MRI 10/08/21 15:37 IMPRESSION: No acute intracranial process. Minimal nonspecific scattered white matter signal changes. 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 Medications Medications Current Medications Acetaminophen (Acetaminophen 325 Mg Tablet) 650 mg PO Q6H PRN PRN Reason: Headache/Pain Mild Scale (1-3) Al Hydroxide/Mg Hydroxide (Magnesium Hydrox/Alum Hydrox 30 Ml Oral.Susp) 30 ml PO Q6H PRN PRN Reason: Heartburn/Nausea Last Admin: 10/11/21 13:39 Dose: 30 ml Documented by: Albuterol Sulfate (Albuterol Sulfate 90 Mcg 8 Gm Inhaler) 2 puff INHALE Q4H PRN PRN Reason: shortness of breath or wheezing Atorvastatin Calcium (Atorvastatin Calcium 20 Mg Tablet) 20 mg PO BEDTIME ON LICENSE OF [facility] Last Admin: 10/11/21 20:25 Dose: 20 mg Documented by: Benztropine Mesylate (Benztropine Mesylate 1 Mg Tablet) 1 mg PO BID ON LICENSE OF [facility] Last Admin: 10/12/21 06:25 Dose: 1 mg Documented by: Haloperidol (Haloperidol 1 Mg Tablet) 2 mg PO BID ON LICENSE OF [facility] Last Admin: 10/12/21 06:25 Dose: 2 mg Documented by: Haloperidol (Haloperidol 1 Mg Tablet) 1 mg PO TID PRN PRN Reason: Anxiety Last Admin: 10/12/21 13:31 Dose: 1 mg Documented by: Lamotrigine (Lamotrigine 25 Mg Tablet) 25 mg PO BEDTIME ON LICENSE OF [facility] Levothyroxine Sodium (Levothyroxine Sodium 75 Mcg Tablet) 75 mcg PO DAILY@0630 ON LICENSE OF [facility] Last Admin: 10/12/21 06:06 Dose: 75 mcg Documented by: [place] Carbonate ([place] Carbonate Er 300 Mg Tablet.Er) 600 mg PO BEDTIME ON LICENSE OF [facility] Last Admin: 10/11/21 20:24 Dose: 600 mg Documented by: Magnesium Hydroxide (Milk Of Magnesia 30 Ml Oral.Susp) 30 ml PO DAILY PRN PRN Reason: Constipation Multi-Ingred Cream/Lotion/Oil/Oint (Mineral Oil/Petrolatum,White 106 Gm Tube) 1 appl TOPICAL TID PRN PRN Reason: pruritic skin Last Admin: 10/10/21 15:03 Dose: 1 appl Documented by: Multivitamins/Vitamin C (Multivitamin Tablet) 1 tab PO DAILY ON LICENSE OF [facility] Last Admin: 10/12/21 08:00 Dose: 1 tab Documented by: Nicotine (Nicotine 21 Mg Patch.Td24) 21 mg TRANSDERMA DAILY ON LICENSE OF [facility] Last Admin: 10/12/21 08:00 Dose: Not Given Documented by: Nicotine Polacrilex (Nicotine Polacrilex 2 Mg Gum) 4 mg BUCCAL Q2H PRN PRN Reason: Nicotine Cravings Pramipexole Dihydrochloride (Pramipexole Di-Hcl 0.25 Mg Tablet) 0.5 mg PO BEDTIME ON LICENSE OF [facility] Last Admin: 10/11/21 20:26 Dose: 0.5 mg Documented by: Pramipexole Dihydrochloride (Pramipexole Di-Hcl 0.25 Mg Tablet) 0.25 mg PO BID@0800,1500 ON LICENSE OF [facility] Last Admin: 10/12/21 14:30 Dose: 0.25 mg Documented by: Pregabalin (Pregabalin 50 Mg Capsule) 50 mg PO 5XD ON LICENSE OF [facility] Last Admin: 10/12/21 14:30 Dose: 50 mg Documented by: Thiamine HCl (Thiamine Hcl 100 Mg Tablet) 100 mg PO DAILY ON LICENSE OF [facility] Last Admin: 10/12/21 08:01 Dose: 100 mg Documented by: Trazodone HCl (Trazodone Hcl 100 Mg Tablet) 100 mg PO BEDTIME PRN PRN Reason: Insomnia Vitamin D (Cholecalciferol (Vitamin D3) 25 Mcg Tablet) 25 mcg PO DAILY [facility] Last Admin: 10/12/21 08:00 Dose: 25 mcg Documented by: Zolpidem Tartrate (Zolpidem Tartrate 5 Mg Tablet) 5 mg PO BEDTIME PRN PRN Reason: Insomnia Allergies Allergies Allergy/AdvReac Type Severity Reaction Status Date / Time olanzapine [From ZYPREXA] AdvReac Intermediate RLS Verified 08/28/21 10:29 symptoms atypical antipsychotics AdvReac Severe This class Uncoded 02/06/21 09:37 appears to potentiate RLS/Akathesia Assessment & Plan Assessment & Plan (1) Bipolar II disorder: Status: Acute Code(s): F31.81 - Bipolar II disorder (2) Moderate benzodiazepine use disorder: Status: Acute Code(s): F13.20 - Sedative, hypnotic or anxiolytic dependence, uncomplicated (3) Cannabis use disorder, moderate, dependence: Status: Acute Code(s): F12.20 - Cannabis dependence, uncomplicated Plan 60 yo female, hx of bipolar disorder, type II and substance use disorder, cannabis, benzodiazepines. Pt recently discharged from with a plan to continue out patient ECT. After discharge, it is reported that she stopped medications, began to overuse Lorazepam which resulted in poor sleep, appetite and unmodulated behavior with irritability, lability warranting Section XIIB to return to in patient level of care. Pt is calm and cooperative on the unit. She is forthcoming-stating that she has a problem with benzodiazepines and she is experiencing significant grief over the of her mother on 05/23/21. She asks to continue ECT course and have referrals to addiction IOP upon completion of discharge so she may begin to work on a plan for sobriety. She discussed her symptoms of dysregulation and reports that Haldol has been helpful in the past and she has interest in continuing this plan. Plan: 1. Diagnostics A1c, Lipids, TSH, B12,Folate, [place] Level 2. Haldol 2 mg po BID 3. Return [place] to [address] HS[address] 4[address]. Cuenca will re-evaluate for ongoing ECT course. 10/08/21: ECT course will be cancelled at this time Continue current regime MRI Brain Referrals for addiction IOP if available Pt plans to sign CV on 10/09. 10/09/21: CV signed Benztropine 1 mg bid Discontinue Atarax [place], TSH, Chemistry Panel 10/12. 10/10: Continue current regimen with increase of trazodone to 100 mg 10/11: Continue current regimen with addition of Ambien 5 mg for tonight only to be discussed with staff tomorrow 10/12/20: Reports difficulty sleeping while in pt. Given Ambien over the weekend with effects. Discussed risk/benefit. Also discussed this being a possible sx of poor mood control-Plan: Begin Lamictal 25 mg HS, continue Ambien prn during in pt-pt does not believe it will be needed upon discharge. Monitor sleep/mood/response to changes. Pt hoping to participate in an addiction IOP if accepted. I spent minutes with the patient and/or on the patient floor today, greater than?50% of which was spent counseling/coordinating care.
[2021-10-12 18:00] VITALS: BP 124/76; PULSE 82; TEMP 36.6; O2SAT 97
[2021-10-12] MEDS: Atorvastatin Calcium 20 MG TABLET PO (21:15)
[2021-10-12] MEDS: lamoTRIgine 25 MG TABLET PO (21:15)
[2021-10-12] MEDS: Pramipexole Di-HCL 0.25 MG TABLET 0.5 MG PO (21:15)
[2021-10-12] MEDS: Lithium Carbonate ER 300 MG TABLET.ER 600 MG PO (21:15)
[2021-10-12] MEDS: Zolpidem Tartrate 5 MG TABLET PO (21:23)
[2021-10-13] MEDS: HaloperidoL 1 MG TABLET PO ×2 (03:04→09:23)
[2021-10-13] MEDS: Levothyroxine Sodium 75 MCG TABLET PO (05:36)
[2021-10-13] MEDS: Pregabalin 50 MG CAPSULE PO ×5 (05:36→20:56)
[2021-10-13 06:00] VITALS: BP 99/65; PULSE 58; RESP 18; TEMP 36.5; O2SAT 96
[2021-10-13] MEDS: Multivitamin TABLET 1 TAB PO (08:53)
[2021-10-13] MEDS: HaloperidoL 1 MG TABLET 2 MG PO ×3 (08:53→19:59)
[2021-10-13] MEDS: Cholecalciferol (Vitamin D3) 25 MCG TABLET PO (08:54)
[2021-10-13] MEDS: Pramipexole Di-HCL 0.25 MG TABLET PO ×2 (08:54→14:06)
[2021-10-13] MEDS: Thiamine HCL 100 MG TABLET PO (08:54)
[2021-10-13] MEDS: Benztropine Mesylate 1 MG TABLET PO ×2 (08:55→20:01)
[2021-10-13 19:35] VITALS: BP 116/58; PULSE 71; TEMP 36; O2SAT 96
[2021-10-13] MEDS: Pramipexole Di-HCL 0.25 MG TABLET 0.5 MG PO (19:59)
[2021-10-13] MEDS: Zolpidem Tartrate 5 MG TABLET PO (20:00)
[2021-10-13] MEDS: Atorvastatin Calcium 20 MG TABLET PO (20:00)
[2021-10-13] MEDS: Lithium Carbonate ER 300 MG TABLET.ER 600 MG PO (20:00)
[2021-10-13] MEDS: lamoTRIgine 25 MG TABLET PO (20:01)
--- NOTE | 2021-10-13 22:27 | HO.PSYCHPN ---
Subjective Subjective Date of Service: 10/13/21 Reason For Visit: Manic Subjective Notes: Conditional Voluntary Interim History: Jaja reports broken sleep but overall sleep improvement-reports sleeping 7:15pm-9:15pm, 10pm-3am, and 3:30 a.m-5am. Struggling with unit phone policies, upset with staff psychologist and irritable at times. Agrees to IOP/PHP upon discharge-substance use programs are rejecting her insurance. Medication Compliance: Yes Side effects from medications: No Attending Groups: Intermittent Review of Systems Acute medical concerns: No Medical Review of Systems: unchanged Review of Systems Psychiatric: Reports anxiety and Reports irritability Mental Status Exam Mental Status Exam Patient Appearance: Appropriate Patient Orientation: Person, Place, Time and Situation Level of Consciousness: Alert Patient Behavior: Appropriate, Talkative, Cooperative and Good Eye Contact Mood Description: Apprehensive Affect Description: Appropriate Patient Cognition Impaired: No Ability to Follow Directions: Good Speech Pattern: Spontaneous Speech Memory Description: Intact Hallucinations: None Delusions: Not Present Thought Process: Intact and Goal Oriented Thought Content: positive for Intact, positive for Goal Oriented, positive for Suicidal Ideation (denies) and positive for Homicidal Ideation (denies) Depressive Symptoms: Insomnia and Difficulty Sleeping Judgement: Good Diagnostics Vital Signs (24Hr): Vital Signs - 24 hr 10/13/21 06:00 10/13/21 19:35 Temperature 97.7 F 96.8 F Pulse Rate 58 71 Respiratory Rate 18 Blood Pressure 99/65 116/58 L Pulse Oximetry 96 96 BMI result Body Mass Index 22.4 Labs Results: 10/04/21 14:46 10/12/21 08:07 Labs: Laboratory Results - last 48 hr 10/12/21 10/12/21 08:07 08:07 Sodium 139 Potassium 5.0 Chloride 104 Carbon Dioxide 30 H Anion Gap 10 L BUN 12 Creatinine 0.80 Estim Creat Clear Calc 48.3 Estimated GFR > 60 Random Glucose 118 H Calcium 10.0 Total Bilirubin 1.1 H AST 12 ALT 7 Alkaline Phosphatase 105 Total Protein 6.8 Albumin 4.2 TSH 3.24 [place] 0.81 Imaging Radiology Impressions: ITS Impressions Chest X-Ray 10/04/21 15:45 IMPRESSION: Unremarkable examination. Head CT 10/04/21 19:00 IMPRESSION: No acute intracranial pathology. Brain MRI 10/08/21 15:37 IMPRESSION: No acute intracranial process. Minimal nonspecific scattered white matter signal changes. 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 Medications Medications Current Medications Acetaminophen (Acetaminophen 325 Mg Tablet) 650 mg PO Q6H PRN PRN Reason: Headache/Pain Mild Scale (1-3) Al Hydroxide/Mg Hydroxide (Magnesium Hydrox/Alum Hydrox 30 Ml Oral.Susp) 30 ml PO Q6H PRN PRN Reason: Heartburn/Nausea Last Admin: 10/11/21 13:39 Dose: 30 ml Documented by: Albuterol Sulfate (Albuterol Sulfate 90 Mcg 8 Gm Inhaler) 2 puff INHALE Q4H PRN PRN Reason: shortness of breath or wheezing Atorvastatin Calcium (Atorvastatin Calcium 20 Mg Tablet) 20 mg PO BEDTIME [facility] Last Admin: 10/13/21 20:00 Dose: 20 mg Documented by: Benztropine Mesylate (Benztropine Mesylate 1 Mg Tablet) 1 mg PO BID [facility] Last Admin: 10/13/21 20:01 Dose: 1 mg Documented by: Haloperidol (Haloperidol 1 Mg Tablet) 1 mg PO TID PRN PRN Reason: Anxiety Last Admin: 10/13/21 09:23 Dose: 1 mg Documented by: Haloperidol (Haloperidol 1 Mg Tablet) 2 mg PO TID [facility] Last Admin: 10/13/21 19:59 Dose: 2 mg Documented by: Lamotrigine (Lamotrigine 25 Mg Tablet) 25 mg PO BEDTIME [facility] Last Admin: 10/13/21 20:01 Dose: 25 mg Documented by: Levothyroxine Sodium (Levothyroxine Sodium 75 Mcg Tablet) 75 mcg PO DAILY@0630 [facility] Last Admin: 10/13/21 05:36 Dose: 75 mcg Documented by: [place] Carbonate ([place] Carbonate Er 300 Mg Tablet.Er) 600 mg PO BEDTIME [facility] Last Admin: 10/13/21 20:00 Dose: 600 mg Documented by: Magnesium Hydroxide (Milk Of Magnesia 30 Ml Oral.Susp) 30 ml PO DAILY PRN PRN Reason: Constipation Multi-Ingred Cream/Lotion/Oil/Oint (Mineral Oil/Petrolatum,White 106 Gm Tube) 1 appl TOPICAL TID PRN PRN Reason: pruritic skin Last Admin: 10/10/21 15:03 Dose: 1 appl Documented by: Multivitamins/Vitamin C (Multivitamin Tablet) 1 tab PO DAILY [facility] Last Admin: 10/13/21 08:53 Dose: 1 tab Documented by: Nicotine (Nicotine 21 Mg Patch.Td24) 21 mg TRANSDERMA DAILY [facility] Last Admin: 10/13/21 08:55 Dose: Not Given Documented by: Nicotine Polacrilex (Nicotine Polacrilex 2 Mg Gum) 4 mg BUCCAL Q2H PRN PRN Reason: Nicotine Cravings Pramipexole Dihydrochloride (Pramipexole Di-Hcl 0.25 Mg Tablet) 0.5 mg PO BEDTIME [facility] Last Admin: 10/13/21 19:59 Dose: 0.5 mg Documented by: Pramipexole Dihydrochloride (Pramipexole Di-Hcl 0.25 Mg Tablet) 0.25 mg PO BID@0800,1500 [facility] Last Admin: 10/13/21 14:06 Dose: 0.25 mg Documented by: Pregabalin (Pregabalin 50 Mg Capsule) 50 mg PO 5XD [facility] Last Admin: 10/13/21 20:56 Dose: 50 mg Documented by: Thiamine HCl (Thiamine Hcl 100 Mg Tablet) 100 mg PO DAILY [facility] Last Admin: 10/13/21 08:54 Dose: 100 mg Documented by: Trazodone HCl (Trazodone Hcl 100 Mg Tablet) 100 mg PO BEDTIME PRN PRN Reason: Insomnia Vitamin D (Cholecalciferol (Vitamin D3) 25 Mcg Tablet) 25 mcg PO DAILY [facility] Last Admin: 10/13/21 08:54 Dose: 25 mcg Documented by: Zolpidem Tartrate (Zolpidem Tartrate 5 Mg Tablet) 5 mg PO BEDTIME PRN PRN Reason: Insomnia Last Admin: 10/13/21 20:00 Dose: 5 mg Documented by: Allergies Allergies Allergy/AdvReac Type Severity Reaction Status Date / Time olanzapine [From ZYPREXA] AdvReac Intermediate RLS Verified 08/28/21 10:29 symptoms atypical antipsychotics AdvReac Severe This class Uncoded 02/06/21 09:37 appears to potentiate RLS/Akathesia Assessment & Plan Assessment & Plan (1) Bipolar II disorder: Status: Acute Code(s): F31.81 - Bipolar II disorder (2) Moderate benzodiazepine use disorder: Status: Acute Code(s): F13.20 - Sedative, hypnotic or anxiolytic dependence, uncomplicated (3) Cannabis use disorder, moderate, dependence: Status: Acute Code(s): F12.20 - Cannabis dependence, uncomplicated Plan 60 yo female, hx of bipolar disorder, type II and substance use disorder, cannabis, benzodiazepines. Pt recently discharged from with a plan to continue out patient ECT. After discharge, it is reported that she stopped medications, began to overuse Lorazepam which resulted in poor sleep, appetite and unmodulated behavior with irritability, lability warranting Section XIIB to return to in patient level of care. Pt is calm and cooperative on the unit. She is forthcoming-stating that she has a problem with benzodiazepines and she is experiencing significant grief over the of her mother on 05/23/21. She asks to continue ECT course and have referrals to addiction IOP upon completion of discharge so she may begin to work on a plan for sobriety. She discussed her symptoms of dysregulation and reports that Haldol has been helpful in the past and she has interest in continuing this plan. Plan: 1. Diagnostics A1c, Lipids, TSH, B12,Folate, [place] Level 2. Haldol 2 mg po BID 3. Return [place] to [address] Cuenca will re-evaluate for ongoing ECT course. 10/08/21: ECT course will be cancelled at this time Continue current regime MRI Brain Referrals for addiction IOP if available Pt plans to sign CV on 10/09. 10/09/21: CV signed Benztropine 1 mg bid Discontinue Atarax [place], TSH, Chemistry Panel 10/12. 10/10: Continue current regimen with increase of trazodone to 100 mg 10/11: Continue current regimen with addition of Ambien 5 mg for tonight only to be discussed with staff tomorrow 10/12/20: Reports difficulty sleeping while in pt. Given Ambien over the weekend with effects. Discussed risk/benefit. Also discussed this being a possible sx of poor mood control-Plan: Begin Lamictal 25 mg HS, continue Ambien prn during in pt-pt does not believe it will be needed upon discharge. Monitor sleep/mood/response to changes. Pt hoping to participate in an addiction IOP if accepted. 10/13/20 Continue current regime. Discharge planning. I spent minutes with the patient and/or on the patient floor today, greater than?50% of which was spent counseling/coordinating care. Patient educated on: therapeutic strategies Informed Consent: understands and further education needed Reason for contiued inpatient stay Substantial Risk for: inability to function and rapid decompensation
[2021-10-14] MEDS: Levothyroxine Sodium 75 MCG TABLET PO (05:17)
[2021-10-14] MEDS: Pregabalin 50 MG CAPSULE PO ×3 (05:18→14:06)
[2021-10-14 06:00] VITALS: PULSE 62; RESP 18; TEMP 36.4; O2SAT 96
[2021-10-14] MEDS: Thiamine HCL 100 MG TABLET PO (08:32)
[2021-10-14] MEDS: Cholecalciferol (Vitamin D3) 25 MCG TABLET PO (08:32)
[2021-10-14] MEDS: HaloperidoL 1 MG TABLET 2 MG PO ×2 (08:32→14:05)
[2021-10-14] MEDS: Benztropine Mesylate 1 MG TABLET PO (08:32)
[2021-10-14] MEDS: Pramipexole Di-HCL 0.25 MG TABLET PO ×2 (08:32→14:06)
[2021-10-14] MEDS: Multivitamin TABLET 1 TAB PO (08:32)
--- NOTE | 2021-10-14 20:01 | P.DS_ITS ---
DS: Providers Provider Date of Service: 10/14/21 Date of admission: 10/06/21 17:05 Date of discharge: 10/14/21 Primary care physician: Unknown Physician Admitting clinician: Padmini Quintanilla Attending physician on admission: Padmini Quintanilla Attending physician on discharge: Padmini Quintanilla Discharging clinician: Padmini Quintanilla DS: Diagnosis Discharge Diagnosis (1) Bipolar II disorder: Status: Acute (2) Moderate benzodiazepine use disorder: Status: Acute (3) Cannabis use disorder, moderate, dependence: Status: Acute DS: Medications Discharge Medications Home Medications: Home Medications Medication Instructions Recorded Confirmed cholecalciferol (vitamin D3) 25 25 mcg PO DAILY 06/15/20 10/04/21 mcg (1,000 unit) tablet atorvastatin 20 mg tablet 1 tab PO DAILY 07/21/21 10/04/21 levothyroxine 75 mcg tablet 1 tab PO DAILY 10/04/21 10/04/21 pramipexole 0.5 mg tablet 1 tab PO BEDTIME 10/04/21 10/04/21 pramipexole 0.25 mg tablet 1 tab PO BID 10/05/21 10/05/21 pregabalin 50 mg capsule 50 mg PO 5XD 10/05/21 10/05/21 Previous Rx's Medication Instructions Recorded albuterol sulfate 90 mcg/actuation 2 puff INHALATION Q4-6H PRN 90 02/05/21 aerosol inhaler (Ventolin HFA) Days #3 ea benztropine 1 mg tablet 1 mg PO BID #60 tab 10/14/21 haloperidol 1 mg tablet 1 mg PO TID PRN #90 tab 10/14/21 haloperidol 1 mg tablet 2 mg PO TID #180 tab 10/14/21 lamotrigine 25 mg tablet 25 mg PO BEDTIME #30 tab 10/14/21 lithium carbonate 300 mg 600 mg PO BEDTIME #60 tab 10/14/21 tablet,extended release multivitamin (Daily-[place]) 1 tab PO DAILY #30 tab 10/14/21 nicotine (polacrilex) 2 mg gum 4 mg BUCCAL Q2H PRN #20 ea 10/14/21 nicotine 21 mg/24 hr daily 21 mg TRANSDERMAL DAILY #30 ea 10/14/21 transdermal patch thiamine mononitrate (vit B1) 100 100 mg PO DAILY #30 tab 10/14/21 mg tablet zolpidem 5 mg tablet 5 mg PO BEDTIME PRN #5 tab 10/14/21 Mental Status Exam Mental Status Exam Patient Appearance: Appropriate Patient Orientation: Person, Place, Time and Situation Level of Consciousness: Alert Patient Behavior: Appropriate, Talkative, Cooperative and Good Eye Contact Mood Description: Apprehensive Affect Description: Appropriate Patient Cognition Impaired: No Ability to Follow Directions: Good Speech Pattern: Spontaneous Speech Memory Description: Intact Hallucinations: None Delusions: Not Present Thought Process: Intact and Goal Oriented Thought Content: positive for Intact, positive for Goal Oriented, positive for Suicidal Ideation (denies) and positive for Homicidal Ideation (denies) Depressive Symptoms: Insomnia and Difficulty Sleeping Judgement: Good Data Data Completed and Pending Completed studies during hospitalization [Text1]: 10/12/21 10/12/21 08:07 08:07 Sodium 139 Potassium 5.0 Chloride 104 Carbon Dioxide 30 H Anion Gap 10 L BUN 12 Creatinine 0.80 Estim Creat Clear Calc 48.3 Estimated GFR > 60 Random Glucose 118 H Calcium 10.0 Total Bilirubin 1.1 H AST 12 ALT 7 Alkaline Phosphatase 105 Total Protein 6.8 Albumin 4.2 TSH 3.24 [place] 0.81 10/04/21 17:23 Blood - Venous Blood Culture - Final No growth after 5 days. 10/04/21 17:07 Blood - Venous Blood Culture - Final No growth after 5 days. 10/04/21 Unknown Urine clean catch - Urine w[place] top Urine Culture - Final Imaging Diagnostic Imaging Impressions Chest X-Ray 10/04/21 15:45 IMPRESSION: Unremarkable examination. Head CT 10/04/21 19:00 IMPRESSION: No acute intracranial pathology. Brain MRI 10/08/21 15:37 IMPRESSION: No acute intracranial process. Minimal nonspecific scattered white matter signal changes. 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 DS: Summary Hospital Course Hospital Course: Admission to adult psychiatry to address symptoms of mood dysregulation, bipolar II disorder, benzodiazepine use disorder, cannabis use disorder. Care plan, medication regime and out patient plan of care prior to admission were reviewed. Education was provided regarding management of symptoms, medications and side effects. Nursing and psychosocial rehabilitation counselor worked with Jaja on care planning, education and discharge planning. Addiction issues were clarified during this admission. [place] was increased, benztropine was initiated along with Haldol. Lorazepam was discontinued with the assessment that is was increasing mood dysregulation. Jaja will attend [facility] to continue to work on mood and addiction issues. Time spent discussing smoking cessation with patient: 3 to 10 minutes Status at Discharge Functional status at discharge: independent ambulation Overall status at discharge: patient is back to baseline Time Spent with Patient Time attestation: Total time spent providing and/or coordinating discharge services:35 Time spent: Greater than 30 minutes Discharge Plan Discharge Patient Disposition: Home, Self-Care Discharge Diagnosis: Bipolar Disorder Type II Benzodiazepine Use Disorder Cannabis Use Disorder Referrals: Mali Baires [Other] - 10/16/21 10:00 am (Outpatient therapy appointment with assigned therapist Appointment by tele-health Check email for link to appointment) America Lam [Other] - 10/20/21 2:20 pm (Initial psychiatric medication evaluation Appointment by tele-health check your email for link to appointment) America Lam [Other] - 11/17/21 11:20 am (Medication Management Appointment Check your email for link to appointment ) Smooth Gray MD [Physician] - 10/21/21 2:30 pm (Follow up ) Discharge Medications: New multivitamin [Daily-[place]] Tablet 1 tab PO DAILY Qty: 30 0RF lithium carbonate 300 mg Tablet Extended Release 600 mg PO BEDTIME Qty: 60 0RF benztropine 1 mg Tablet 1 mg PO BID Qty: 60 0RF Continued cholecalciferol (vitamin D3) 25 mcg (1,000 unit) tablet 25 mcg PO DAILY 0RF pramipexole 0.5 mg tablet 1 tab PO BEDTIME 0RF atorvastatin 20 mg tablet 20 mg PO DAILY 0RF Discontinued lithium carbonate 450 mg tablet extended release 1 tab PO 4XW 0RF lorazepam 0.5 mg tablet 1 tab PO BID PRN (Reason: anxiety) 0RF No Action albuterol sulfate [Ventolin HFA] 90 mcg/actuation HFA aerosol inhaler 2 puff PO Q6H PRN (Reason: Shortness Of Breath) 0RF thiamine HCl (vitamin B1) [Vitamin B-1] 100 mg tablet 1 tab PO DAILY 0RF lamotrigine 25 mg tablet 1 tab PO BEDTIME 0RF levothyroxine 75 mcg tablet 1 tab PO DAILY 0RF haloperidol 1 mg tablet 1 mg PO BEDTIME 0RF haloperidol 1 mg tablet 0.5 mg PO QAM 0RF zolpidem 5 mg tablet 1 tab PO BEDTIME PRN (Reason: insomnia) 0RF Discharge Orders: Discharge Order (Routine); Ordered 10/14/21 Ordered By: Padmini Quintanilla Diet: advance to usual diet Activity on Discharge: As tolerated Stand Alone Forms: Patient Portal Discharge page, Community Support Care Plan Goals: Mood stabilization Sobriety Health Concerns: Bipolar Disorder II Benzodiazepine Use Disorder Cannabis Use Disorder Plan of Treatment: Attend scheduled appointments Attend PHP/IOP Take medications as directed Assessment: non-suicidal, non-psychotic, stable mood Discharge Date/Time: 10/14/21 16:58
== END 2021-10-14 16:58 | disposition home or self-care (01) | DRG 885 ==
LOC: HO.ED 10-06 10:29 → HO.PM5 10-06 17:28
PROVIDERS: Physician Assistant; Admitting Provider Psychiatry & Neurology Psychiatry; Emergency Provider Emergency Medicine; Visit Provider Clinical Nurse Specialist Psychiatric/Mental Health, Adult
DX: F31.81 Bipolar II disorder (principal); R45.851 Suicidal ideations; F13.20 Sedative, hypnotic or anxiolytic dependence, uncomplicated; E03.9 Hypothyroidism, unspecified; G25.81 Restless legs syndrome; F12.20 Cannabis dependence, uncomplicated; I95.9 Hypotension, unspecified; F14.10 Cocaine abuse, uncomplicated; Z20.822 Contact with and (suspected) exposure to COVID-19; F17.210 Nicotine dependence, cigarettes, uncomplicated; Z71.6 Tobacco abuse counseling; Z91.19 Patient's noncompliance with other medical treatment and regimen; Z23 Encounter for immunization; Z79.890 Hormone replacement therapy; Z79.899 Other long term (current) drug therapy
CPT/HCPCS: 36415; 70450; 70551; 71045; 80053; 80178; 80307; 81001; 82077; 82550; 83605; 83690; 83735; 84443; 85025; 87040; 87086; 87635; 90686; 93005; 99285; Q0163

== ENCOUNTER 2021-10-30 17:40 | Emergency (ER) | payer MEDICARE, MEDICAID, SELFPAY ==
[2021-10-30 17:53] VITALS: BP 155/74; PULSE 84; RESP 18; TEMP 36.8; O2SAT 100; BMI 18.6
--- NOTE | 2021-10-30 18:11 | ED.PSYCH ---
HPI - Psych General Chief Complaint: Psychiatric Symptoms Stated Complaint: Crisis Time Seen by Provider: 10/30/21 18:07 Source: patient and old records reviewed Mode of arrival: ambulatory Limitations: no limitations History of Present Illness MD complaint: suicidal ideation and feels depressed Onset (ago): day(s) Duration: getting worse History of same: Yes Relieving factors: none Exacerbating factors: none Context: other Associated psychiatric symptoms: depression and suicidal ideation Associated symptoms: denies other symptoms Treatments prior to arrival: none If self harm: admits thoughts of self harm and has plan Details of plan: CO poisoning from car Related Data Home Medications Medication Instructions Recorded Confirmed cholecalciferol (vitamin D3) 25 25 mcg PO DAILY 06/15/20 10/30/21 mcg (1,000 unit) tablet atorvastatin 20 mg tablet 20 mg PO DAILY 07/21/21 10/30/21 pramipexole 0.5 mg tablet 1 tab PO BEDTIME 10/04/21 10/30/21 albuterol sulfate 90 mcg/actuation 2 puff PO Q6H PRN 10/30/21 10/30/21 aerosol inhaler (Ventolin HFA) haloperidol 1 mg tablet 0.5 mg PO QAM 10/30/21 10/30/21 haloperidol 1 mg tablet 1 mg PO BEDTIME 10/30/21 10/30/21 lamotrigine 25 mg tablet 1 tab PO BEDTIME 10/30/21 10/30/21 levothyroxine 75 mcg tablet 1 tab PO DAILY 10/30/21 10/30/21 thiamine HCl (vitamin B1) 100 mg 1 tab PO DAILY 10/30/21 10/30/21 tablet (Vitamin B-1) zolpidem 5 mg tablet 1 tab PO BEDTIME PRN 10/30/21 10/30/21 Previous Rx's Medication Instructions Recorded benztropine 1 mg tablet 1 mg PO BID #60 tab 10/14/21 lithium carbonate 300 mg 600 mg PO BEDTIME #60 tab 10/14/21 tablet,extended release multivitamin (Daily-Oswaldo) 1 tab PO DAILY #30 tab 10/14/21 Allergies Allergy/AdvReac Type Severity Reaction Status Date / Time olanzapine [From ZYPREXA] AdvReac Intermediate RLS Verified 08/28/21 10:29 symptoms atypical antipsychotics AdvReac Severe This class Uncoded 06/25/21 09:37 appears to potentiate RLS/Akathesia Review of Systems Review of Systems: Constitutional : No Fever, No Chills ENT/Mouth : No Ear Pain, No Nasal Congestion, No sore throat Eyes: No Eye Pain, No Swelling, No Redness Cardiovascular : No Chest Pain, No SOB Respiratory : No Cough, No Sputum, No Dyspnea Gastrointestinal : No Nausea, No Vomiting, No Diarrhea, No Hematochezia, No Melena Genitourinary : No Dysuria, No Urinary Frequency, No Hematuria Musculoskeletal : No Myalgias Skin : No Skin Lesions, No rash Neuro : No Weakness, No Numbness, No Paresthesias, No Dizziness, No Headache Psych : positive Anxiety, positive Depression, positive SI no HI Heme/Lymph: No Lymphadenopathy Endocrine : No Polyuria, No Polydipsia All other systems reviewed and are negative [facility] Past Medical History Attestation statement: The following information was validated with the patient. Source: old records reviewed Medical History Benzodiazepine abuse Bipolar II disorder Cannabis use disorder, moderate, dependence COPD (chronic obstructive pulmonary disease) HLD (hyperlipidemia) Hypothyroidism Osteoporosis RLS (restless legs syndrome) Surgical History H/O: hysterectomy Family History Family History Mother No problems noted. Father No problems noted. Son Substance use disorder Social History Social History Household Members: Spouse Household Members Other:: adult son Housing: House Do you presently have visiting nurse or other home services: No Alcohol intake: never Patient Tobacco Use Status: Current everyday Tobacco user Tobacco use type: Cigarette Cigarette Packs Per Day: 1 Cigarettes Per Day: 20.0 Years Smoked: 40 e-Cigarette/Vaping Use: Currently Using Second Hand Smoke Exposure: No Substance Use Type: Marijuana Advance Directives: No Advance Directives Information Provided: No service: No Current occupational status: employed Sexual orientation: Straight/Heterosexual Physical Exam Vital Signs: Vital Signs: Last Vital Signs Temp 98.2 F 10/30/21 17:53 Pulse 84 10/30/21 17:53 Resp 18 10/30/21 17:53 BP 155/74 H 10/30/21 17:53 Pulse Ox 100 10/30/21 17:53 BMI result Body Mass Index 18.6 Appearance: Alert. Oriented X3. No acute distress. Anxious Eyes: Pupils equal, round and reactive to light. ENT: Pharynx normal. Neck: Normal inspection. Neck supple. CVS: Normal heart rate and rhythm. Pulses normal. Respiratory: No respiratory distress. Breath sounds normal. Abdomen: Soft and nontender. Skin: Skin warm and dry. Normal skin color. Normal skin turgor. Extremities: No lower extremity edema. No calf ttp Neuro: Oriented X 3. No motor deficit. No sensory deficit. CN2-12 intact Course Course Course Narrative: Physician observation started at 751pm. Patient placed in physician observation because the patient needed more time for CARE team to assess the need for inpatient psych admission. At the time observation was started the patient's vitals were stable, patient is alert and oriented, Neuro: nonfocal, CV RRR, Lungs clear TSH high but no bradycardia no hypotension and she is anxious not flat affect no signs of sig hypothyroidism clinically that would warrant emergent endocrinology evaluation patient denies SI, cleared by CARE team, has safety plan with son in place, she has never had attempt in past that crisis is aware of. Patient feels safe for DC MDM - Psych MDM Narrative Medical decision making narrative: 60 yo female with hx of substance abuse, osteoporosis, COPD, bipolar, HLD here with c/o depression and SI with plan at this time labs and CARE team consult ordered. Dispo per their reccomendations. Lab Data Result diagrams: 10/30/21 19:55 10/30/21 19:29 Labs: Lab Results 10/30/21 10/30/21 10/30/21 Range/Units 19:29 19:29 19:29 WBC (4.8-10.8) X10*3/uL RBC (4.20-5.50) X10*6/uL Hgb (12.0-16.0) g/dl Hct (37.0-47.0) % MCV (80.0-98.0) fL MCH (27.0-33.0) pg MCHC (31.0-35.0) g/dl RDW (11.0-16.0) % Plt Count (160-400) X10*3/uL MPV (9.4-12.3) fL Immature Gran % (Auto) (0.0-0.4) % Neut % (Auto) (45-73) % Lymph % (Auto) (20-40) % [place] % (Auto) (2-11) % Eos % (Auto) (0-4) % Baso % (Auto) (0-2) % Lymph # (Auto) (1.2-4.9) X10*3/uL [place] # (Auto) (0.1-1.2) X10*3/uL Eos # (Auto) (0.0-0.4) X10*3/uL Baso # (Auto) (0.0-0.2) X10*3/uL Abs Immat Gran (auto) (0.00-0.03) X10*3/uL Absolute Neuts (auto) (2.0-8.3) x10*3/uL Absolute Nucleated RBC (0.0-0.012) X10*3/uL Nucleated RBC % (auto) (0.0-0.2) /100WBC Sodium 136 (135-145) mmol/L Potassium 4.3 (3.3-5.1) mmol/L Chloride 102 (96-108) mmol/L Carbon Dioxide 23 (22-29) mmol/L Anion Gap 15 (12-20) BUN 19 H D (9-16) mg/dL Creatinine 0.83 (0.5-1.4) mg/dL Estim Creat Clear Calc 53.9 Estimated GFR > 60 Random Glucose 110 (60-115) mg/dL Calcium 9.9 (8.4-10.2) mg/dL Magnesium 2.6 (1.6-2.6) mg/dL Total Bilirubin 0.6 (0.0-1.0) mg/dL Direct Bilirubin 0.2 (0.0-0.5) mg/dL AST 18 D (5-31) U/L ALT 11 (0-31) U/L Alkaline Phosphatase 106 (39-117) U/L Total Protein 8.2 H D (6.5-8.0) g/dL Albumin 5.0 (3.5-5.0) g/dL TSH 15.62 H (0.32-4.0) uIU/mL [place] 0.83 (0.60-1.20) mmol/L Ethyl Alcohol mg/dL COVID-19 ([facility]) Negative (Negative) COVID-19 Clin Com See Note 10/30/21 10/30/21 Range/Units 19:29 19:55 WBC 10.4 (4.8-10.8) X10*3/uL RBC 3.60 L (4.20-5.50) X10*6/uL Hgb 11.5 L (12.0-16.0) g/dl Hct 35.1 L (37.0-47.0) % MCV 97.5 (80.0-98.0) fL MCH 31.9 (27.0-33.0) pg MCHC 32.8 (31.0-35.0) g/dl RDW 14.1 (11.0-16.0) % Plt Count 431 H (160-400) X10*3/uL MPV 9.5 (9.4-12.3) fL Immature Gran % (Auto) 0.3 (0.0-0.4) % Neut % (Auto) 77.1 H (45-73) % Lymph % (Auto) 14.8 L (20-40) % [place] % (Auto) 7.7 (2-11) % Eos % (Auto) 0.0 (0-4) % Baso % (Auto) 0.1 (0-2) % Lymph # (Auto) 1.5 (1.2-4.9) X10*3/uL [place] # (Auto) 0.8 (0.1-1.2) X10*3/uL Eos # (Auto) 0.0 (0.0-0.4) X10*3/uL Baso # (Auto) 0.0 (0.0-0.2) X10*3/uL Abs Immat Gran (auto) 0.03 (0.00-0.03) X10*3/uL Absolute Neuts (auto) 8.0 (2.0-8.3) x10*3/uL Absolute Nucleated RBC 0.000 (0.0-0.012) X10*3/uL Nucleated RBC % (auto) 0.0 (0.0-0.2) /100WBC Sodium (135-145) mmol/L Potassium (3.3-5.1) mmol/L Chloride (96-108) mmol/L Carbon Dioxide (22-29) mmol/L Anion Gap (12-20) BUN (9-16) mg/dL Creatinine (0.5-1.4) mg/dL Estim Creat Clear Calc Estimated GFR Random Glucose (60-115) mg/dL Calcium (8.4-10.2) mg/dL Magnesium (1.6-2.6) mg/dL Total Bilirubin (0.0-1.0) mg/dL Direct Bilirubin (0.0-0.5) mg/dL AST (5-31) U/L ALT (0-31) U/L Alkaline Phosphatase (39-117) U/L Total Protein (6.5-8.0) g/dL Albumin (3.5-5.0) g/dL TSH (0.32-4.0) uIU/mL [place] (0.60-1.20) mmol/L Ethyl Alcohol < 10 mg/dL COVID-19 ([facility]) (Negative) COVID-19 Clin Com Discharge Plan Discharge Clinical Impression: Elevated TSH Depression Qualifiers: Depression Type: unspecified Qualified Code(s): F32.A - Depression, unspecified Patient Disposition: Home, Self-Care Instructions: Depression (ED), Hypothyroidism (ED) Additional Instructions: return to ED for any worsening symptoms or concerns your thyroid test shows that your thyroid is functioning at a lower level please call and follow up with your doctor tuesday regarding this. Prescriptions: No Action cholecalciferol (vitamin D3) 25 mcg (1,000 unit) tablet 25 mcg PO DAILY 0RF pramipexole 0.5 mg tablet 1 tab PO BEDTIME 0RF multivitamin [Daily-Oswaldo] Tablet 1 tab PO DAILY Qty: 30 0RF lithium carbonate 300 mg Tablet Extended Release 600 mg PO BEDTIME Qty: 60 0RF benztropine 1 mg Tablet 1 mg PO BID Qty: 60 0RF albuterol sulfate [Ventolin HFA] 90 mcg/actuation HFA aerosol inhaler 2 puff PO Q6H PRN (Reason: Shortness Of Breath) 0RF thiamine HCl (vitamin B1) [Vitamin B-1] 100 mg tablet 1 tab PO DAILY 0RF lamotrigine 25 mg tablet 1 tab PO BEDTIME 0RF levothyroxine 75 mcg tablet 1 tab PO DAILY 0RF haloperidol 1 mg tablet 1 mg PO BEDTIME 0RF haloperidol 1 mg tablet 0.5 mg PO QAM 0RF zolpidem 5 mg tablet 1 tab PO BEDTIME PRN (Reason: insomnia) 0RF atorvastatin 20 mg tablet 20 mg PO DAILY 0RF Referrals: Smooth Gray MD [Primary Care Provider] - 3 days
[2021-10-30 19:47] LABS: Lithium 0.83 mmol/L (0.60-1.20)
[2021-10-30 19:50] LABS: Ethanol < 10 mg/dL
[2021-10-30 19:55] LABS: COVID-19 Test Negative (Negative)
[2021-10-30 19:57] LABS: Alanine Aminotransferase 11 U/L (0-31); Alkaline Phosphatase 106 U/L (39-117); Anion Gap 15 (12-20); Aspartate Amino Transferase 18 U/L (5-31); Bilirubin Direct 0.2 mg/dL (0.0-0.5); Bilirubin Total 0.6 mg/dL (0.0-1.0); Blood Urea Nitrogen 19 mg/dL (9-16); Calcium 9.9 mg/dL (8.4-10.2); Carbon Dioxide 23 mmol/L (22-29); Chloride 102 mmol/L (96-108); Creatinine Clr Calc Pharmacy 53.9; Estimated Glomerular Filt Rate > 60; Glucose Random 110 mg/dL (60-115); Magnesium 2.6 mg/dL (1.6-2.6); Potassium 4.3 mmol/L (3.3-5.1); Sodium 136 mmol/L (135-145); Total Protein 8.2 g/dL (6.5-8.0)
[2021-10-30 20:16] LABS: Thyroid Stimulating Hormone 15.62 uIU/mL (0.32-4.0)
[2021-10-30 20:45] LABS: Basophils Percent Auto 0.1 % (0-2); Hematocrit 35.1 % (37.0-47.0); Hemoglobin 11.5 g/dl (12.0-16.0); Imm Gran Abs Auto 0.03 X10*3/uL (0.00-0.03); Imm Gran Pct Auto 0.3 % (0.0-0.4); Lymphocytes Absolute Auto 1.5 X10*3/uL (1.2-4.9); Lymphocytes Percent Auto 14.8 % (20-40); Mean Corpuscular HGB Conc 32.8 g/dl (31.0-35.0); Mean Corpuscular Hemoglobin 31.9 pg (27.0-33.0); Mean Corpuscular Volume 97.5 fL (80.0-98.0); Mean Platelet Volume 9.5 fL (9.4-12.3); Monocytes Absolute Auto 0.8 X10*3/uL (0.1-1.2); Monocytes Percent Auto 7.7 % (2-11); Neutrophils Percent Auto 77.1 % (45-73); Platelet Count 431 X10*3/uL (160-400); Red Cell Distribution Width 14.1 % (11.0-16.0); White Blood Count 10.4 X10*3/uL (4.8-10.8)
[2021-10-30 20:46] LABS: MANUAL DIFF FLAG NO
--- NOTE | 2021-10-30 21:34 | MHC.CARE ---
Pt is alert and oriented x4. She disheveled and appears older than her stated age. She is engaged and help seeking. Eye contact and speech are within normal limits. Mood is sad with normal affect. Pt does not appear to be responding to internal stimuli. Pt adamantly denies suicidal ideation and reports that she was last suicidal on Tuesday night and has no intention of hurting herself. Insight, judgment, and impulse control are intact. Memory and concentration are good. Pt reports that she will be with her son all weekend and that she can keep herself safe. Pt's son reports that he feels he can keep her safe at home this weekend and will bring her back to the ED if necessary. This disposition is discussed and agreed upon by ED provider, Dr. Campos, psychiatric provider, Shahida Avery NP, and CARE Package Center Supervisor, MIREILLE Brooks.
== END 2021-10-30 21:41 | disposition home or self-care (01) ==
PROVIDERS: Emergency Provider Emergency Medicine; PCP Internal Medicine
DX: R94.6 Abnormal results of thyroid function studies (principal); F31.81 Bipolar II disorder; R45.851 Suicidal ideations; F41.9 Anxiety disorder, unspecified; F14.10 Cocaine abuse, uncomplicated; F12.20 Cannabis dependence, uncomplicated; F13.20 Sedative, hypnotic or anxiolytic dependence, uncomplicated; F17.200 Nicotine dependence, unspecified, uncomplicated; Z79.899 Other long term (current) drug therapy; Z20.822 Contact with and (suspected) exposure to COVID-19
CPT/HCPCS: 80048; 80076; 80178; 82077; 83735; 84443; 85025; 87635; 99283; 99284

== ENCOUNTER 2021-11-22 18:03 | Emergency (ER) | payer OTHER, MEDICARE, MEDICAID, SELFPAY ==
[2021-11-22 18:26] VITALS: BP 159/87; PULSE 82; RESP 19; TEMP 36.6; O2SAT 98; BMI 18.8
[2021-11-22 19:48] LABS: COVID-19 Test Negative (Negative); IDNOW Serial# 08D9AD1C
[2021-11-22 19:51] VITALS: BP 142/73; PULSE 77; RESP 20; O2SAT 96
[2021-11-22 20:14] LABS: MANUAL DIFF FLAG NO
[2021-11-22 20:15] LABS: Basophils Absolute Auto 0.1 X10*3/uL (0.0-0.2); Basophils Percent Auto 0.6 % (0-2); Eosinophils Absolute Auto 0.1 X10*3/uL (0.0-0.4); Eosinophils Percent Auto 1.1 % (0-4); Hematocrit 39.4 % (37.0-47.0); Hemoglobin 12.8 g/dl (12.0-16.0); Imm Gran Abs Auto 0.04 X10*3/uL (0.00-0.03); Imm Gran Pct Auto 0.4 % (0.0-0.4); Lymphocytes Absolute Auto 2.4 X10*3/uL (1.2-4.9); Lymphocytes Percent Auto 22.7 % (20-40); Mean Corpuscular HGB Conc 32.5 g/dl (31.0-35.0); Mean Corpuscular Hemoglobin 31.8 pg (27.0-33.0); Mean Platelet Volume 9.3 fL (9.4-12.3); Monocytes Absolute Auto 0.6 X10*3/uL (0.1-1.2); Neutrophils Absolute Auto 7.2 x10*3/uL (2.0-8.3); Neutrophils Percent Auto 69.2 % (45-73); Platelet Count 373 X10*3/uL (160-400); Red Blood Count 4.02 X10*6/uL (4.20-5.50); Red Cell Distribution Width 14.1 % (11.0-16.0); White Blood Count 10.5 X10*3/uL (4.8-10.8)
[2021-11-22 20:26] LABS: Ethanol < 10 mg/dL
[2021-11-22 20:27] LABS: Anion Gap 12 (12-20); Blood Urea Nitrogen 10 mg/dL (9-16); Calcium 9.8 mg/dL (8.4-10.2); Carbon Dioxide 27 mmol/L (22-29); Chloride 104 mmol/L (96-108); Creatinine Clr Calc Pharmacy 57.8; Estimated Glomerular Filt Rate > 60; Glucose Random 101 mg/dL (60-115); Potassium 4.3 mmol/L (3.3-5.1); Sodium 139 mmol/L (135-145)
[2021-11-22 20:39] LABS: Appearance Urine CLEAR; Color Urine YELLOW; Glucose Urine UA NEG (NEG); Leukocyte Esterase Urine NEG (NEG); Nitrite Urine NEG (NEG); Urine Blood NEG (NEG); Urine Ketones NEG (NEG); Urine Protein NEG (NEG-TRACE)
[2021-11-22 20:53] LABS: Amphetamine Screen Urine Not Detected (Not Detect); Barbiturates, Urine Not Detected (Not Detect); Benzodiazepines Screen Urine Not Detected (Not Detect); Cannabinoid Screen Urine POSITIVE (Not Detect); Cocaine Screen Urine Not Detected (Not Detect); Fentanyl, urine Not Detected (Not Detect); Opiate Screen Urine Not Detected (Not Detect); Phencyclidine Screen Urine Not Detected (Not Detect)
--- NOTE | 2021-11-22 21:08 | ED_ITS ---
HPI - Psych General Chief Complaint: Psychiatric Symptoms Stated Complaint: psych evaluation Time Seen by Provider: 11/22/21 21:05 Source: patient Mode of arrival: ambulatory Limitations: no limitations History of Present Illness HPI Narrative: Patient's care with history of depression bipolar disorder been more depressed lately crying for no reasons denies any suicidal ideation or homicidal feeling. Patient denied any use of cocaine or any drugs at this time taking her medication with not helping her. Unable to sleep for last few nights Related Data Home Medications Medication Instructions Recorded Confirmed cholecalciferol (vitamin D3) 25 25 mcg PO DAILY 06/15/20 11/22/21 mcg (1,000 unit) tablet atorvastatin 20 mg tablet 20 mg PO DAILY 07/21/21 11/22/21 pramipexole 0.5 mg tablet 1 tab PO BEDTIME 10/04/21 11/22/21 thiamine HCl (vitamin B1) 100 mg 1 tab PO DAILY 10/30/21 11/22/21 tablet (Vitamin B-1) zolpidem 5 mg tablet 1 tab PO BEDTIME PRN 10/30/21 11/22/21 lamotrigine 100 mg tablet 2.5 tab PO DAILY 11/22/21 11/22/21 levothyroxine 75 mcg tablet 1 tab PO DAILY 11/22/21 11/22/21 lorazepam 0.5 mg tablet 1 tab PO BID PRN 11/22/21 11/22/21 Previous Rx's Medication Instructions Recorded lithium carbonate 300 mg 600 mg PO BEDTIME #60 tab 10/14/21 tablet,extended release multivitamin (Daily-Oswaldo) 1 tab PO DAILY #30 tab 10/14/21 Allergies Allergy/AdvReac Type Severity Reaction Status Date / Time olanzapine [From ZYPREXA] AdvReac Intermediate RLS Verified 08/28/21 10:29 symptoms atypical antipsychotics AdvReac Severe This class Uncoded 02/06/21 09:37 appears to potentiate RLS/Akathesia Review of Systems Review of Systems: Yes all other systems are reviewed and are negative PMFSH Past Medical History Medical History Benzodiazepine abuse Bipolar II disorder Cannabis use disorder, moderate, dependence COPD (chronic obstructive pulmonary disease) HLD (hyperlipidemia) Hypothyroidism Osteoporosis RLS (restless legs syndrome) Surgical History H/O: hysterectomy Family History Family History Mother No problems noted. Father No problems noted. Son Substance use disorder Social History Social History Household Members: Spouse Household Members Other:: adult son Housing: House Do you presently have visiting nurse or other home services: No Alcohol intake: never Patient Tobacco Use Status: Current everyday Tobacco user Tobacco use type: Cigarette Cigarette Packs Per Day: 1 Cigarettes Per Day: 20.0 Years Smoked: 40 e-Cigarette/Vaping Use: Currently Using Second Hand Smoke Exposure: No Substance Use Type: Marijuana Advance Directives: No Advance Directives Information Provided: No service: No Current occupational status: employed Sexual orientation: Straight/Heterosexual Physical Exam Vital Signs: Vital Signs: Last Vital Signs Temp 97.8 F 11/23/21 00:22 Pulse 78 11/23/21 00:22 Resp 16 11/23/21 00:22 BP 99/63 11/23/21 00:22 Pulse Ox 93 11/23/21 00:22 BMI result Body Mass Index 18.8 Appearance: Alert. Oriented X3. No acute distress. Eyes: PERRLA, No Nystagmus ENT: Pharynx normal. Oral Mucosa moist Neck: Normal inspection. Neck supple. CVS: Normal heart rate and rhythm. Pulses normal. Respiratory: No respiratory distress. Equal air entry bilateral, no wheezing/rales/rhonchi Abdomen: Soft and nontender. Bowel sounds are present, no mass palpable, no CVA tenderness Skin: Skin warm and dry. Normal skin color. Normal skin turgor. Extremities: No lower extremity edema. No calf tenderness psych: Depressed tearful denies any suicidal ideation no hallucination delusion Neuro: Oriented X 3. No motor deficit. No sensory deficit.No cerebellar signs , cranial nerves II-XII intact MDM - Psych MDM Narrative Medical decision making narrative: Patient with depression medically cleared for crisis evaluation Lab Data Attestation: I reviewed the patient's lab results. Result diagrams: 11/22/21 20:06 11/22/21 20:06 Labs: Lab Results 11/22/21 11/22/21 11/22/21 Range/Units 19:26 20:06 20:06 WBC 10.5 (4.8-10.8) X10*3/uL RBC 4.02 L (4.20-5.50) X10*6/uL Hgb 12.8 (12.0-16.0) g/dl Hct 39.4 (37.0-47.0) % MCV 98.0 (80.0-98.0) fL MCH 31.8 (27.0-33.0) pg MCHC 32.5 (31.0-35.0) g/dl RDW 14.1 (11.0-16.0) % Plt Count 373 (160-400) X10*3/uL MPV 9.3 L (9.4-12.3) fL Immature Gran % (Auto) 0.4 (0.0-0.4) % Neut % (Auto) 69.2 (45-73) % Lymph % (Auto) 22.7 (20-40) % [place] % (Auto) 6.0 (2-11) % Eos % (Auto) 1.1 (0-4) % Baso % (Auto) 0.6 (0-2) % Lymph # (Auto) 2.4 (1.2-4.9) X10*3/uL [place] # (Auto) 0.6 (0.1-1.2) X10*3/uL Eos # (Auto) 0.1 (0.0-0.4) X10*3/uL Baso # (Auto) 0.1 (0.0-0.2) X10*3/uL Abs Immat Gran (auto) 0.04 H (0.00-0.03) X10*3/uL Absolute Neuts (auto) 7.2 (2.0-8.3) x10*3/uL Absolute Nucleated RBC 0.000 (0.0-0.012) X10*3/uL Nucleated RBC % (auto) 0.0 (0.0-0.2) /100WBC Sodium (135-145) mmol/L Potassium (3.3-5.1) mmol/L Chloride (96-108) mmol/L Carbon Dioxide (22-29) mmol/L Anion Gap (12-20) BUN (9-16) mg/dL Creatinine (0.5-1.4) mg/dL Estim Creat Clear Calc Estimated GFR Random Glucose (60-115) mg/dL Calcium (8.4-10.2) mg/dL Urine Color Urine Appearance Urine pH (5.0-8.0) Ur Specific [place] (1.005-1.025) Urine Protein (NEG-TRACE) MG/DL Urine Glucose (UA) (NEG) MG/DL Urine Ketones (NEG) MG/DL Urine Blood (NEG) Urine Nitrite (NEG) Ur Leukocyte Esterase (NEG) Urine RBC (0) /HPF Urine WBC (0-4) /HPF Ur Squamous Epith Cells /LPF Urine Bacteria /LPF Urine Opiates Screen (Not Detect) Urine Fentanyl Screen (Not Detect) Ur Barbiturates Screen (Not Detect) Ur Phencyclidine Scrn (Not Detect) Ur Amphetamines Screen (Not Detect) U Benzodiazepines Scrn (Not Detect) [place] (0.60-1.20) mmol/L Urine Cocaine Screen (Not Detect) U Marijuana (THC) Screen (Not Detect) Ethyl Alcohol < 10 mg/dL COVID-19 ([facility]) Negative (Negative) COVID-19 Clin Com See Note 11/22/21 11/22/21 11/22/21 Range/Units 20:06 20:06 20:28 WBC (4.8-10.8) X10*3/uL RBC (4.20-5.50) X10*6/uL Hgb (12.0-16.0) g/dl Hct (37.0-47.0) % MCV (80.0-98.0) fL MCH (27.0-33.0) pg MCHC (31.0-35.0) g/dl RDW (11.0-16.0) % Plt Count (160-400) X10*3/uL MPV (9.4-12.3) fL Immature Gran % (Auto) (0.0-0.4) % Neut % (Auto) (45-73) % Lymph % (Auto) (20-40) % [place] % (Auto) (2-11) % Eos % (Auto) (0-4) % Baso % (Auto) (0-2) % Lymph # (Auto) (1.2-4.9) X10*3/uL [place] # (Auto) (0.1-1.2) X10*3/uL Eos # (Auto) (0.0-0.4) X10*3/uL Baso # (Auto) (0.0-0.2) X10*3/uL Abs Immat Gran (auto) (0.00-0.03) X10*3/uL Absolute Neuts (auto) (2.0-8.3) x10*3/uL Absolute Nucleated RBC (0.0-0.012) X10*3/uL Nucleated RBC % (auto) (0.0-0.2) /100WBC Sodium 139 (135-145) mmol/L Potassium 4.3 (3.3-5.1) mmol/L Chloride 104 (96-108) mmol/L Carbon Dioxide 27 (22-29) mmol/L Anion Gap 12 (12-20) BUN 10 (9-16) mg/dL Creatinine 0.75 (0.5-1.4) mg/dL Estim Creat Clear Calc 57.8 Estimated GFR > 60 Random Glucose 101 (60-115) mg/dL Calcium 9.8 (8.4-10.2) mg/dL Urine Color Urine Appearance Urine pH (5.0-8.0) Ur Specific [place] (1.005-1.025) Urine Protein (NEG-TRACE) MG/DL Urine Glucose (UA) (NEG) MG/DL Urine Ketones (NEG) MG/DL Urine Blood (NEG) Urine Nitrite (NEG) Ur Leukocyte Esterase (NEG) Urine RBC (0) /HPF Urine WBC (0-4) /HPF Ur Squamous Epith Cells /LPF Urine Bacteria /LPF Urine Opiates Screen Not Detected (Not Detect) Urine Fentanyl Screen Not Detected (Not Detect) Ur Barbiturates Screen Not Detected (Not Detect) Ur Phencyclidine Scrn Not Detected (Not Detect) Ur Amphetamines Screen Not Detected (Not Detect) U Benzodiazepines Scrn Not Detected (Not Detect) [place] 0.60 (0.60-1.20) mmol/L Urine Cocaine Screen Not Detected (Not Detect) U Marijuana (THC) Screen POSITIVE H (Not Detect) Ethyl Alcohol mg/dL COVID-19 ([facility]) (Negative) COVID-19 Clin Com 11/22/21 Range/Units 20:28 WBC (4.8-10.8) X10*3/uL RBC (4.20-5.50) X10*6/uL Hgb (12.0-16.0) g/dl Hct (37.0-47.0) % MCV (80.0-98.0) fL MCH (27.0-33.0) pg MCHC (31.0-35.0) g/dl RDW (11.0-16.0) % Plt Count (160-400) X10*3/uL MPV (9.4-12.3) fL Immature Gran % (Auto) (0.0-0.4) % Neut % (Auto) (45-73) % Lymph % (Auto) (20-40) % [place] % (Auto) (2-11) % Eos % (Auto) (0-4) % Baso % (Auto) (0-2) % Lymph # (Auto) (1.2-4.9) X10*3/uL [place] # (Auto) (0.1-1.2) X10*3/uL Eos # (Auto) (0.0-0.4) X10*3/uL Baso # (Auto) (0.0-0.2) X10*3/uL Abs Immat Gran (auto) (0.00-0.03) X10*3/uL Absolute Neuts (auto) (2.0-8.3) x10*3/uL Absolute Nucleated RBC (0.0-0.012) X10*3/uL Nucleated RBC % (auto) (0.0-0.2) /100WBC Sodium (135-145) mmol/L Potassium (3.3-5.1) mmol/L Chloride (96-108) mmol/L Carbon Dioxide (22-29) mmol/L Anion Gap (12-20) BUN (9-16) mg/dL Creatinine (0.5-1.4) mg/dL Estim Creat Clear Calc Estimated GFR Random Glucose (60-115) mg/dL Calcium (8.4-10.2) mg/dL Urine Color YELLOW Urine Appearance CLEAR Urine pH 7.0 (5.0-8.0) Ur Specific [place] 1.010 (1.005-1.025) Urine Protein NEG (NEG-TRACE) MG/DL Urine Glucose (UA) NEG (NEG) MG/DL Urine Ketones NEG (NEG) MG/DL Urine Blood NEG (NEG) Urine Nitrite NEG (NEG) Ur Leukocyte Esterase NEG (NEG) Urine RBC 0-2 (0) /HPF Urine WBC 0-2 (0-4) /HPF Ur Squamous Epith Cells 1+ /LPF Urine Bacteria TRACE /LPF Urine Opiates Screen (Not Detect) Urine Fentanyl Screen (Not Detect) Ur Barbiturates Screen (Not Detect) Ur Phencyclidine Scrn (Not Detect) Ur Amphetamines Screen (Not Detect) U Benzodiazepines Scrn (Not Detect) [place] (0.60-1.20) mmol/L Urine Cocaine Screen (Not Detect) U Marijuana (THC) Screen (Not Detect) Ethyl Alcohol mg/dL COVID-19 ([facility]) (Negative) COVID-19 Clin Com Discharge Plan Discharge Clinical Impression: Depression Patient Disposition: Still a Patient Prescriptions: No Action cholecalciferol (vitamin D3) 25 mcg (1,000 unit) tablet 25 mcg PO DAILY 0RF pramipexole 0.5 mg tablet 1 tab PO BEDTIME 0RF multivitamin [Daily-Oswaldo] Tablet 1 tab PO DAILY Qty: 30 0RF lithium carbonate 300 mg Tablet Extended Release 600 mg PO BEDTIME Qty: 60 0RF thiamine HCl (vitamin B1) [Vitamin B-1] 100 mg tablet 1 tab PO DAILY 0RF zolpidem 5 mg tablet 1 tab PO BEDTIME PRN (Reason: insomnia) 0RF lamotrigine 100 mg tablet 2.5 tab PO DAILY 0RF levothyroxine 75 mcg tablet 1 tab PO DAILY 0RF lorazepam 0.5 mg tablet 1 tab PO BID PRN (Reason: anxiety) 0RF atorvastatin 20 mg tablet 20 mg PO DAILY 0RF
[2021-11-22 21:16] LABS: Bacteria Urine TRACE /LPF; RBC Urine 0-2 /HPF (0); Squamous Epithelial Cell Urine 1+ /LPF; WBC Urine 0-2 /HPF (0-4)
[2021-11-22] MEDS: Zolpidem Tartrate 5 MG TABLET PO (21:23)
[2021-11-22] MEDS: LORazepam 0.5 MG TABLET PO (21:23)
[2021-11-22] MEDS: Pramipexole Di-HCL 0.25 MG TABLET 1 MG PO ×2 (21:28→21:29)
[2021-11-22] MEDS: Pramipexole Di-HCL 1 MG TABLET PO (21:42)
[2021-11-23 00:22] VITALS: BP 99/63; PULSE 78; RESP 16; TEMP 36.6; O2SAT 93
[2021-11-23] MEDS: Acetaminophen 325 MG TABLET 650 MG PO (05:11)
[2021-11-23] MEDS: Levothyroxine Sodium 75 MCG TABLET PO (05:11)
--- NOTE | 2021-11-23 05:31 | PC.NURSE ---
Patient slept through the night, no distress observed/reported, behavior cooperative and non concerning, medication compliant, [facility]N assessed the patient, disposition section 12 inpatient bed search, will continue to monitor.
--- NOTE | 2021-11-23 06:03 | PC.NURSE ---
patient appears to remain asleep at present respirations are even and unlabored patient appears in no distress
[2021-11-23] MEDS: lamoTRIgine 100 MG TABLET 250 MG PO (07:52)
[2021-11-23] MEDS: Cholecalciferol (Vitamin D3) 25 MCG TABLET PO (07:53)
[2021-11-23] MEDS: Multivitamin TABLET 1 TAB PO (07:53)
[2021-11-23] MEDS: Thiamine HCL 100 MG TABLET PO (07:53)
[2021-11-23] MEDS: Atorvastatin Calcium 20 MG TABLET PO (07:53)
[2021-11-23] MEDS: LORazepam 0.5 MG TABLET PO (07:53)
--- NOTE | 2021-11-23 12:45 | MHC.CARE ---
CARE Team presents pt CV, as she was [place] [facility]. Pt declines, stating that she has a bed at [facility]. Per [facility] bedsearch, pt does not have a bed at [place], and they do not have any soon availability. This is communicated to pt who reaches out to her family members. Crisis assessment is reviewed with psychiatrist Dr. Menezes, who agrees that pt does not meet criteria for 12b and pt can be discharged. Pt has supportive family and is at low risk, denying SI/HI. Pt agrees to call [facility] or return to the ED if symptoms worsen.
== END 2021-11-23 13:35 | disposition home or self-care (01) ==
PROVIDERS: Emergency Provider Internal Medicine; PCP Internal Medicine
DX: F33.1 Major depressive disorder, recurrent, moderate (principal); F17.210 Nicotine dependence, cigarettes, uncomplicated; Z71.6 Tobacco abuse counseling; Z79.899 Other long term (current) drug therapy; Z20.822 Contact with and (suspected) exposure to COVID-19
CPT/HCPCS: 36415; 80048; 80178; 80307; 81001; 82077; 85025; 87635; 99284

== ENCOUNTER 2021-11-25 20:09 | Emergency (ER) | payer OTHER, SELFPAY ==
[2021-11-25 21:56] VITALS: BP 140/90; PULSE 92; RESP 16; TEMP 36.1; O2SAT 98; BMI 15.7
--- NOTE | 2021-11-27 18:27 | MHC.CARE ---
CARE Team called pt's cell phone to check in and left a voicemail for pt.
== END 2021-11-26 02:03 | disposition left against medical advice (07) ==
PROVIDERS: Emergency Provider Emergency Medicine; PCP Internal Medicine
DX: F29 Unspecified psychosis not due to a substance or known physiological condition (principal)
CPT/HCPCS: 99281; 99282

== ENCOUNTER 2021-11-26 08:00 | Emergency (ER) | payer MEDICARE, SELFPAY ==
[2021-11-26 08:29] VITALS: BP 141/79; PULSE 96; RESP 18; TEMP 37.1; O2SAT 97; BMI 15.0
[2021-11-26 08:42] LABS: MANUAL DIFF FLAG NO
[2021-11-26 08:45] LABS: Basophils Absolute Auto 0.1 X10*3/uL (0.0-0.2); Basophils Percent Auto 0.7 % (0-2); Eosinophils Absolute Auto 0.1 X10*3/uL (0.0-0.4); Eosinophils Percent Auto 1.5 % (0-4); Hematocrit 39.8 % (37.0-47.0); Hemoglobin 13.5 g/dl (12.0-16.0); Imm Gran Abs Auto 0.02 X10*3/uL (0.00-0.03); Imm Gran Pct Auto 0.3 % (0.0-0.4); Lymphocytes Absolute Auto 1.9 X10*3/uL (1.2-4.9); Lymphocytes Percent Auto 26.2 % (20-40); Mean Corpuscular HGB Conc 33.9 g/dl (31.0-35.0); Mean Corpuscular Hemoglobin 32.5 pg (27.0-33.0); Mean Corpuscular Volume 95.7 fL (80.0-98.0); Mean Platelet Volume 9.1 fL (9.4-12.3); Monocytes Absolute Auto 0.7 X10*3/uL (0.1-1.2); Monocytes Percent Auto 9.5 % (2-11); Neutrophils Absolute Auto 4.6 x10*3/uL (2.0-8.3); Neutrophils Percent Auto 61.8 % (45-73); Platelet Count 425 X10*3/uL (160-400); Red Blood Count 4.16 X10*6/uL (4.20-5.50); Red Cell Distribution Width 13.7 % (11.0-16.0); White Blood Count 7.4 X10*3/uL (4.8-10.8)
--- NOTE | 2021-11-26 08:45 | ED_ITS ---
HPI - Psych General Chief Complaint: Psychiatric Symptoms <Libra Santana NP - Last Filed: 11/26/21 17:15> Stated Complaint: crisis <Libra Santana NP - Last Filed: 11/26/21 17:15> Time Seen by Provider: 11/26/21 08:35 <Libra Santana NP - Last Filed: 11/26/21 17:15> Source: patient <Libra Santana NP - Last Filed: 11/26/21 17:15> Mode of arrival: ambulatory <Libra Santana NP - Last Filed: 11/26/21 17:15> Limitations: no limitations <Libra Santana NP - Last Filed: 11/26/21 17:15> History of Present Illness HPI Narrative: 61-year-old female with a history of bipolar disorder here with complaints of feeling increasingly depressed, wanting to shower or eat for the last 2 weeks. She spoke to her psychiatrist 2 weeks ago and they increased her dose of Lamictal. She tells me that since the increase her dose she has been feeling dizzy when she moves around. She is continuing to feel depressed with no motivation to perform ADLs. She denies suicidal or homicidal ideations. She denies any physical complaints. <Libra Santana NP - Last Filed: 11/26/21 17:15> Related Data Home Medications: Home Medications Medication Instructions Recorded Confirmed cholecalciferol (vitamin D3) 25 25 mcg PO DAILY 06/15/20 11/26/21 mcg (1,000 unit) tablet pramipexole 0.5 mg tablet 1 tab PO BID 10/04/21 11/26/21 thiamine HCl (vitamin B1) 100 mg 1 tab PO DAILY 10/30/21 11/26/21 tablet (Vitamin B-1) zolpidem 5 mg tablet 1 tab PO BEDTIME PRN 10/30/21 11/26/21 lamotrigine 100 mg tablet 2.5 tab PO DAILY 11/22/21 11/26/21 levothyroxine 75 mcg tablet 1 tab PO DAILY 11/22/21 11/26/21 lorazepam 0.5 mg tablet 1 tab PO BID PRN 11/22/21 11/26/21 benztropine 1 mg tablet 1 tab PO BID 11/26/21 11/26/21 hydroxyzine HCl 25 mg tablet 1 tab PO BID PRN 11/26/21 11/26/21 lithium carbonate 300 mg 600 mg PO DAILY 11/26/21 11/26/21 tablet,extended release Previous Rx's Medication Instructions Recorded multivitamin (Daily-Oswaldo) 1 tab PO DAILY #30 tab 10/14/21 atorvastatin 20 mg tablet 20 mg PO DAILY #90 tab 11/25/21 <Libra Santana NP - Last Filed: 11/26/21 17:15> Allergies/Adverse Reactions: Allergies Allergy/AdvReac Type Severity Reaction Status Date / Time olanzapine [From ZYPREXA] AdvReac Intermediate RLS Verified 11/26/21 08:28 symptoms atypical antipsychotics AdvReac Severe This class Uncoded 11/25/21 21:58 appears to potentiate RLS/Akathesia <Libra Santana NP - Last Filed: 11/26/21 17:15> Review of Systems Review of Systems: Yes all other systems are reviewed and are negative <Libra Santana NP - Last Filed: 11/26/21 17:15> Constitutional: Constitutional: Reports no additional constitutional complaints, Denies body ache(s), Denies chills, Denies fever(s), Denies headache(s), Reports poor appetite and Denies weakness <Libra Santana NP - Last Filed: 11/26/21 17:15> Eyes: Eyes: Reports no additional eye complaints and Denies change in vision <Libra Santana NP - Last Filed: 11/26/21 17:15> ENT: Reports system reviewed and no additional complaints, except as documented, Denies dizziness, Denies headache(s), Denies nasal congestion, Denies nasal discharge and Denies neck pain <Libra Santana NP - Last Filed: 11/26/21 17:15> Cardiovascular: Cardiovascular: Reports no additional cardiovascular complaints, Denies chest pain, Denies leg edema and Denies dyspnea <Libra Santana NP - Last Filed: 11/26/21 17:15> Respiratory: Respiratory: Reports no additional respiratory complaints, Denies cough and Denies dyspnea <Libra Santana NP - Last Filed: 11/26/21 17:15> Gastrointestinal: Gastrointestinal: Reports no additional gastrointestinal complaints, Denies abdominal pain, Denies diarrhea, Denies nausea and Denies vomiting <Libra Santana NP - Last Filed: 11/26/21 17:15> Genitourinary: Genitourinary: Reports no additional female genitourinary complaints and Denies urinary incontinence <Libra Santana NP - Last Filed: 11/26/21 17:15> Musculoskeletal: Musculoskeletal: Reports no additional musculoskeletal complaints, Denies back pain, Denies arthralgias, Denies joint swelling, Denies neck pain, Denies numbness and Denies tingling <Libra Santana NP - Last Filed: 11/26/21 17:15> Integumentary/Breasts: Skin/Breast: Reports system reviewed and no additional complaints, except as docu and Denies rash <Libra Santana NP - Last Filed: 11/26/21 17:15> Neurologic: Reports system reviewed and no additional complaints, except as documented, Denies Abnormal speech present, Denies dizziness, Denies headache(s), Denies numbness, Denies tingling and Denies weakness <Libra Santana NP - Last Filed: 11/26/21 17:15> Psychiatric: Psychiatric: Reports depression, Denies homicidal ideation and Denies suicidal ideation <Libra Santana NP - Last Filed: 11/26/21 17:15> PMF Past Medical History Attestation statement: The following information was validated with the patient. <Libra Santana NP - Last Filed: 11/26/21 17:15> Source: old records reviewed and nursing notes reviewed <Libra Santana NP - Last Filed: 11/26/21 17:15> Medical History: Medical History Benzodiazepine abuse Bipolar II disorder Cannabis use disorder, moderate, dependence COPD (chronic obstructive pulmonary disease) HLD (hyperlipidemia) Hypothyroidism Osteoporosis RLS (restless legs syndrome) <Libra Santana NP - Last Filed: 11/26/21 17:15> Surgical History: Surgical History H/O: hysterectomy <Libra Santana NP - Last Filed: 11/26/21 17:15> Family History Family History: Family History Mother No problems noted. Father No problems noted. Son Substance use disorder <Libra Santana NP - Last Filed: 11/26/21 17:15> Social History Social History: Social History Household Members: Spouse Household Members Other:: adult son Housing: House Do you presently have visiting nurse or other home services: No Alcohol intake: never Patient Tobacco Use Status: Current someday Tobacco user Tobacco use type: Cigarette Cigarette Packs Per Day: 1 Cigarettes Per Day: 20.0 Years Smoked: 40 e-Cigarette/Vaping Use: Currently Using Second Hand Smoke Exposure: No Use of substances other than those prescribed or required for medical reasons: No Substance Use Type: Marijuana Advance Directives: No Advance Directives Information Provided: No service: No Current occupational status: employed Sexual orientation: Straight/Heterosexual <Libra Santana NP - Last Filed: 11/26/21 17:15> Physical Exam Vital Signs: Vital Signs: Last Vital Signs Temp 98.8 F 11/26/21 08:29 Pulse 96 11/26/21 08:29 Resp 18 11/26/21 08:29 BP 141/79 H 11/26/21 08:29 Pulse Ox 97 11/26/21 08:29 BMI result Body Mass Index 15.0 <Libra Santana NP - Last Filed: 11/26/21 17:15> Vital Signs: Last Vital Signs Temp 98.8 F 11/26/21 08:29 Pulse 96 11/26/21 08:29 Resp 18 11/26/21 08:29 BP 141/79 H 11/26/21 08:29 Pulse Ox 97 11/26/21 08:29 BMI result Body Mass Index 15.0 <ELISE Fong - Last Filed: 11/26/21 19:27> Const: General: cooperative, healthy appearing, comfortable and no acute distress <Libra Santana NP - Last Filed: 11/26/21 17:15> Orientation/consciousness: patient oriented x3 <Libra Santana NP - Last Filed: 11/26/21 17:15> Limitations: no limitations <Libra Santana NP - Last Filed: 11/26/21 17:15> HEENT: Head: Yes normal to inspection <Libra Santana NP - Last Filed: 11/26/21 17:15> Ears: hearing grossly normal bilaterally <Libra Santana NP - Last Filed: 11/26/21 17:15> General nose exam: Normal external nose present <Libra Santana NP - Last Filed: 11/26/21 17:15> Face and sinus: Yes normal facial exam <Libra Santana NP - Last Filed: 11/26/21 17:15> Mouth: Normal oral and palatal mucosa present <Libra Santana NP - Last Filed: 11/26/21 17:15> Throat: Yes posterior oropharynx normal <Libra Santana NP - Last Filed: 11/26/21 17:15> Eyes: General: appearance normal, both eyes and all related structures <Libra Santana NP - Last Filed: 11/26/21 17:15> Pupils: Equal, round and reactive pupils present <Libra Santana NP - Last Filed: 11/26/21 17:15> Neck: Neck: Yes normal visual inspection <Libra Santana NP - Last Filed: 11/26/21 17:15> Chest: Chest palpation & inspection: normal inspection of the chest <Libra Santana NP - Last Filed: 11/26/21 17:15> Resp: Effort & Inspection: normal respiratory effort <Libra Santana NP - Last Filed: 11/26/21 17:15> Auscultation: clear to auscultation bilaterally <Libra Santana NP - Last Filed: 11/26/21 17:15> Cardio: Rate: regular rate <Libra Santana GEAR CUTTING MACHINE OPERATOR - Last Filed: 11/26/21 17:15> Rhythm: regular rhythm <Libra Santana NP - Last Filed: 11/26/21 17:15> Peripheral pulses: Peripheral pulses 2+ throughout <Libra Santana GEAR CUTTING MACHINE OPERATOR - Last Filed: 11/26/21 17:15> GI: Inspection: Yes normal to inspection <Libra Santana GEAR CUTTING MACHINE OPERATOR - Last Filed: 11/26/21 17:15> Palpation (GI): Soft to palpation and nontender <Libra Santana GEAR CUTTING MACHINE OPERATOR - Last Filed: 11/26/21 17:15> Auscultation: normal bowel sounds <Libra Santana NP - Last Filed: 11/26/21 17:15> Back/Spine/Pelvis: Thoracic/Lumbar Spine: thoracic and lumbar spine normal to inspection <Libra Santana GEAR CUTTING MACHINE OPERATOR - Last Filed: 11/26/21 17:15> Skin: General skin exam: no rashes or lesions noted <Libra Santana GEAR CUTTING MACHINE OPERATOR - Last Filed: 11/26/21 17:15> Neuro: General: patient oriented x3, no focal motor deficits and normal sensation to monofilament <Libra Santana GEAR CUTTING MACHINE OPERATOR - Last Filed: 11/26/21 17:15> Cranial nerves: Yes CN's II-XII intact bilaterally and Yes Equal, round and reactive pupils present <Libra Santana NP - Last Filed: 11/26/21 17:15> Cognition (Neuro): normal cognition <Libra Santana GEAR CUTTING MACHINE OPERATOR - Last Filed: 11/26/21 17:15> Speech: No Abnormal speech present <Libra Santana GEAR CUTTING MACHINE OPERATOR - Last Filed: 11/26/21 17:15> Gait exam (Neuro): Normal gait present <Libra Santana NP - Last Filed: 11/26/21 17:15> Motor exam (neuro): 5/5 motor strength present throughout <Libra Santana GEAR CUTTING MACHINE OPERATOR - Last Filed: 11/26/21 17:15> Extrem: General: Yes normal to inspection <Libra Santana NP - Last F iled: 11/26/21 17:15> Course Course Course Narrative: 61-year-old female with a history of bipolar disease here with reports of increasing depression, no motivation to perform ADLs over the last few weeks despite an increase in her home medications. No SI. No physical complaint. No concern for acute ingestion or trauma. Will check labs, drug screen, COVID screen. Will obtain care team consultation <Libra Santana NP - Last Filed: 11/26/21 17:15> Reevaluation(s) Reevaluation #1: per care team patient will be a voluntary bed search <Libra Santana NP - Last Filed: 11/26/21 17:15> Time: 14:20 <Libra Santana NP - Last Filed: 11/26/21 17:15> Reevaluation #2: Care team spoke to me again. At this point patient does not qualify for inpatient admission. She does qualify for partial hospitalization. This was discussed with the patient, her in the care team otr truck driver (Camila) at t he bedside. They have additional concerns at this point do not feel comfortable going home. Therefore we decided to obtain a Psychiatry consultation as the patient's primary concerns are around her medication <Libra Santana NP - Last Filed: 11/26/21 17:15> Time: 17:00 <Libra Santnaa NP - Last Filed: 11/26/21 17:15> Reevaluation #3: Patient was evaluated by Psychiatry GEAR CUTTING MACHINE OPERATOR Gena and cleared for discharge home, given doses of p.o. Ativan in the ED. Patient wants to try [facility] and has contacts at can get her a bed. Plan is for patient to call her provider for medication questioning/adjustments <ELISE Fong - Last Filed: 11/26/21 19:27> Time: 19:24 <ELISE Fong - Last Filed: 11/26/21 19:27> MDM - Psych Medical Records Attestation: I reviewed the patient's medical records. <Libra Santana NP - Last Filed: 11/26/21 17:15> Lab Data Attestation: I reviewed the patient's lab results. <Libra Santana NP - Last Filed: 11/26/21 17:15> Result diagrams: : 11/26/21 08:36 11/26/21 08:36 <Libra Santana NP - Last Filed: 11/26/21 17:15> Labs: Lab Results 11/26/21 11/26/21 11/26/21 Range/Units 08:29 08:36 08:36 WBC 7.4 (4.8-10.8) X10*3/uL RBC 4.16 L (4.20-5.50) X10*6/uL Hgb 13.5 (12.0-16.0) g/dl Hct 39.8 (37.0-47.0) % MCV 95.7 (80.0-98.0) fL MCH 32.5 (27.0-33.0) pg MCHC 33.9 (31.0-35.0) g/dl RDW 13.7 (11.0-16.0) % Plt Count 425 H (160-400) X10*3/uL MPV 9.1 L (9.4-12.3) fL Immature Gran % (Auto) 0.3 (0.0-0.4) % Neut % (Auto) 61.8 (45-73) % Lymph % (Auto) 26.2 (20-40) % [place] % (Auto) 9.5 (2-11) % Eos % (Auto) 1.5 (0-4) % Baso % (Auto) 0.7 (0-2) % Lymph # (Auto) 1.9 (1.2-4.9) X10*3/uL [place] # (Auto) 0.7 (0.1-1.2) X10*3/uL Eos # (Auto) 0.1 (0.0-0.4) X10*3/uL Baso # (Auto) 0.1 (0.0-0.2) X10*3/uL Abs Immat Gran (auto) 0.02 (0.00-0.03) X10*3/uL Absolute Neuts (auto) 4.6 (2.0-8.3) x10*3/uL Absolute Nucleated RBC 0.000 (0.0-0.012) X10*3/uL Nucleated RBC % (auto) 0.0 (0.0-0.2) /100WBC Sodium 138 (135-145) mmol/L Potassium 3.8 (3.3-5.1) mmol/L Chloride 104 (96-108) mmol/L Carbon Dioxide 24 (22-29) mmol/L Anion Gap 14 (12-20) BUN 8 L (9-16) mg/dL Creatinine 0.92 (0.5-1.4) mg/dL Estim Creat Clear Calc 37.7 Estimated GFR > 60 Random Glucose 144 H (60-115) mg/dL Calcium 9.9 (8.4-10.2) mg/dL Total Bilirubin 0.9 (0.0-1.0) mg/dL AST 20 (5-31) U/L ALT 10 (0-31) U/L Alkaline Phosphatase 114 (39-117) U/L Total Protein 7.4 (6.5-8.0) g/dL Albumin 4.6 (3.5-5.0) g/dL Urine Opiates Screen (Not Detect) Urine Fentanyl Screen (Not Detect) Ur Barbiturates Screen (Not Detect) Ur Phencyclidine Scrn (Not Detect) Ur Amphetamines Screen (Not Detect) U Benzodiazepines Scrn (Not Detect) [place] (0.60-1.20) mmol/L Urine Cocaine Screen (Not Detect) U Marijuana (THC) Screen (Not Detect) COVID-19 (WENDY) Negative (Negative) COVID-19 Clin Com See Note 11/26/21 11/26/21 Range/Units 08:36 12:20 WBC (4.8-10.8) X10*3/uL RBC (4.20-5.50) X10*6/uL Hgb (12.0-16.0) g/dl Hct (37.0-47.0) % MCV (80.0-98.0) fL MCH (27.0-33.0) pg MCHC (31.0-35.0) g/dl RDW (11.0-16.0) % Plt Count (160-400) X10*3/uL MPV (9.4-12.3) fL Immature Gran % (Auto) (0.0-0.4) % Neut % (Auto) (45-73) % Lymph % (Auto) (20-40) % [place] % (Auto) (2-11) % Eos % (Auto) (0-4) % Baso % (Auto) (0-2) % Lymph # (Auto) (1.2-4.9) X10*3/uL [place] # (Auto) (0.1-1.2) X10*3/uL Eos # (Auto) (0.0-0.4) X10*3/uL Baso # (Auto) (0.0-0.2) X10*3/uL Abs Immat Gran (auto) (0.00-0.03) X10*3/uL Absolute Neuts (auto) (2.0-8.3) x10*3/uL Absolute Nucleated RBC (0.0-0.012) X10*3/uL Nucleated RBC % (auto) (0.0-0.2) /100WBC Sodium (135-145) mmol/L Potassium (3.3-5.1) mmol/L Chloride (96-108) mmol/L Carbon Dioxide (22-29) mmol/L Anion Gap (12-20) BUN (9-16) mg/dL Creatinine (0.5-1.4) mg/dL Estim Creat Clear Calc Estimated GFR Random Glucose (60-115) mg/dL Calcium (8.4-10.2) mg/dL Total Bilirubin (0.0-1.0) mg/dL AST (5-31) U/L ALT (0-31) U/L Alkaline Phosphatase (39-117) U/L Total Protein (6.5-8.0) g/dL Albumin (3.5-5.0) g/dL Urine Opiates Screen Not Detected (Not Detect) Urine Fentanyl Screen Not Detected (Not Detect) Ur Barbiturates Screen Not Detected (Not Detect) Ur Phencyclidine Scrn Not Detected (Not Detect) Ur Amphetamines Screen Not Detected (Not Detect) U Benzodiazepines Scrn Not Detected (Not Detect) [place] 0.10 L (0.60-1.20) mmol/L Urine Cocaine Screen Not Detected (Not Detect) U Marijuana (THC) Screen POSITIVE H (Not Detect) COVID-19 (WENDY) (Negative) COVID-19 Clin Com <Libra Esther, GEAR CUTTING MACHINE OPERATOR - Last Filed: 11/26/21 17:15> Lab Results 11/26/21 11/26/21 11/26/21 Range/Units 08:29 08:36 08:36 WBC 7.4 (4.8-10.8) X10*3/uL RBC 4.16 L (4.20-5.50) X10*6/uL Hgb 13.5 (12.0-16.0) g/dl Hct 39.8 (37.0-47.0) % MCV 95.7 (80.0-98.0) fL MCH 32.5 (27.0-33.0) pg MCHC 33.9 (31.0-35.0) g/dl RDW 13.7 (11.0-16.0) % Plt Count 425 H (160-400) X10*3/uL MPV 9.1 L (9.4-12.3) fL Immature Gran % (Auto) 0.3 (0.0-0.4) % Neut % (Auto) 61.8 (45-73) % Lymph % (Auto) 26.2 (20-40) % [place] % (Auto) 9.5 (2-11) % Eos % (Auto) 1.5 (0-4) % Baso % (Auto) 0.7 (0-2) % Lymph # (Auto) 1.9 (1.2-4.9) X10*3/uL [place] # (Auto) 0.7 (0.1-1.2) X10*3/uL Eos # (Auto) 0.1 (0.0-0.4) X10*3/uL Baso # (Auto) 0.1 (0.0-0.2) X10*3/uL Abs Immat Gran (auto) 0.02 (0.00-0.03) X10*3/uL Absolute Neuts (auto) 4.6 (2.0-8.3) x10*3/uL Absolute Nucleated RBC 0.000 (0.0-0.012) X10*3/uL Nucleated RBC % (auto) 0.0 (0.0-0.2) /100WBC Sodium 138 (135-145) mmol/L Potassium 3.8 (3.3-5.1) mmol/L Chloride 104 (96-108) mmol/L Carbon Dioxide 24 (22-29) mmol/L Anion Gap 14 (12-20) BUN 8 L (9-16) mg/dL Creatinine 0.92 (0.5-1.4) mg/dL Estim Creat Clear Calc 37.7 Estimated GFR > 60 Random Glucose 144 H (60-115) mg/dL Calcium 9.9 (8.4-10.2) mg/dL Total Bilirubin 0.9 (0.0-1.0) mg/dL AST 20 (5-31) U/L ALT 10 (0-31) U/L Alkaline Phosphatase 114 (39-117) U/L Total Protein 7.4 (6.5-8.0) g/dL Albumin 4.6 (3.5-5.0) g/dL Urine Opiates Screen (Not Detect) Urine Fentanyl Screen (Not Detect) Ur Barbiturates Screen (Not Detect) Ur Phencyclidine Scrn (Not Detect) Ur Amphetamines Screen (Not Detect) U Benzodiazepines Scrn (Not Detect) [place] (0.60-1.20) mmol/L Urine Cocaine Screen (Not Detect) U Marijuana (THC) Screen (Not Detect) COVID-19 (WENDY) Negative (Negative) COVID-19 Clin Com See Note 11/26/21 11/26/21 Range/Units 08:36 12:20 WBC (4.8-10.8) X10*3/uL RBC (4.20-5.50) X10*6/uL Hgb (12.0-16.0) g/dl Hct (37.0-47.0) % MCV (80.0-98.0) fL MCH (27.0-33.0) pg MCHC (31.0-35.0) g/dl RDW (11.0-16.0) % Plt Count (160-400) X10*3/uL MPV (9.4-12.3) fL Immature Gran % (Auto) (0.0-0.4) % Neut % (Auto) (45-73) % Lymph % (Auto) (20-40) % [place] % (Auto) (2-11) % Eos % (Auto) (0-4) % Baso % (Auto) (0-2) % Lymph # (Auto) (1.2-4.9) X10*3/uL [place] # (Auto) (0.1-1.2) X10*3/uL Eos # (Auto) (0.0-0.4) X10*3/uL Baso # (Auto) (0.0-0.2) X10*3/uL Abs Immat Gran (auto) (0.00-0.03) X10*3/uL Absolute Neuts (auto) (2.0-8.3) x10*3/uL Absolute Nucleated RBC (0.0-0.012) X10*3/uL Nucleated RBC % (auto) (0.0-0.2) /100WBC Sodium (135-145) mmol/L Potassium (3.3-5.1) mmol/L Chloride (96-108) mmol/L Carbon Dioxide (22-29) mmol/L Anion Gap (12-20) BUN (9-16) mg/dL Creatinine (0.5-1.4) mg/dL Estim Creat Clear Calc Estimated GFR Random Glucose (60-115) mg/dL Calcium (8.4-10.2) mg/dL Total Bilirubin (0.0-1.0) mg/dL AST (5-31) U/L ALT (0-31) U/L Alkaline Phosphatase (39-117) U/L Total Protein (6.5-8.0) g/dL Albumin (3.5-5.0) g/dL Urine Opiates Screen Not Detected (Not Detect) Urine Fentanyl Screen Not Detected (Not Detect) Ur Barbiturates Screen Not Detected (Not Detect) Ur Phencyclidine Scrn Not Detected (Not Detect) Ur Amphetamines Screen Not Detected (Not Detect) U Benzodiazepines Scrn Not Detected (Not Detect) [place] 0.10 L (0.60-1.20) mmol/L Urine Cocaine Screen Not Detected (Not Detect) U Marijuana (THC) Screen POSITIVE H (Not Detect) COVID-19 ([facility]) (Negative) COVID-19 Clin Com <ELISE Fong - Last Filed: 11/26/21 19:27> Discharge Plan Discharge Clinical Impression: Bipolar II disorder <Libra Santana NP - Last Filed: 11/26/21 17:15> Patient Disposition: Home, Self-Care <Libra Santana NP - Last Filed: 11/26/21 17:15> Instructions: Bipolar Disorder (DC) <Libra Santana NP - Last Filed: 11/26/21 17:15> Additional Instructions: Continue home prescribed medications. Please call your provider for additional medication question/additional medications as needed You are evaluated by our psychiatry nurse practitioner, plan was for you to investigate going to [facility] If you do not feel safe at home, have thoughts of hurting herself or others, are not taking her medications please return to the ED immediately <Libra Santana NP - Last Filed: 11/26/21 17:15> Prescriptions: No Action atorvastatin 20 mg tablet 20 mg PO DAILY Qty: 90 8RF cholecalciferol (vitamin D3) 25 mcg (1,000 unit) tablet 25 mcg PO DAILY 0RF pramipexole 0.5 mg tablet 1 tab PO BID 0RF multivitamin [Daily-Oswaldo] Tablet 1 tab PO DAILY Qty: 30 0RF thiamine HCl (vitamin B1) [Vitamin B-1] 100 mg tablet 1 tab PO DAILY 0RF zolpidem 5 mg tablet 1 tab PO BEDTIME PRN (Reason: insomnia) 0RF lamotrigine 100 mg tablet 2.5 tab PO DAILY 0RF levothyroxine 75 mcg tablet 1 tab PO DAILY 0RF lorazepam 0.5 mg tablet 1 tab PO BID PRN (Reason: anxiety) 0RF benztropine 1 mg tablet 1 tab PO BID 0RF hydroxyzine HCl 25 mg tablet 1 tab PO BID PRN (Reason: panic attack) 0RF lithium carbonate 300 mg tablet extended release 600 mg PO DAILY 0RF <Libra Santana NP - Last Filed: 11/26/21 17:15> Referrals: [facility] [Provider Group] Shahida Avery, GEAR CUTTING MACHINE OPERATOR [Nurse Practitioner] - 1 week <Libra Santana NP - Last Filed: 11/26/21 17:15>
[2021-11-26 09:00] LABS: Alanine Aminotransferase 10 U/L (0-31); Albumin Level 4.6 g/dL (3.5-5.0); Alkaline Phosphatase 114 U/L (39-117); Anion Gap 14 (12-20); Aspartate Amino Transferase 20 U/L (5-31); Bilirubin Total 0.9 mg/dL (0.0-1.0); Blood Urea Nitrogen 8 mg/dL (9-16); Calcium 9.9 mg/dL (8.4-10.2); Carbon Dioxide 24 mmol/L (22-29); Chloride 104 mmol/L (96-108); Creatinine Clr Calc Pharmacy 37.7; Estimated Glomerular Filt Rate > 60; Glucose Random 144 mg/dL (60-115); Potassium 3.8 mmol/L (3.3-5.1); Sodium 138 mmol/L (135-145); Total Protein 7.4 g/dL (6.5-8.0)
[2021-11-26 09:01] LABS: COVID-19 Test Negative (Negative)
--- NOTE | 2021-11-26 10:14 | PHA.MEDREC ---
Pharmacy Consult ? Medication Reconciliation Pharmacy has completed the medication reconciliation. Pt stated that she doesn't take haldol because she can't have any antipsychotics. Stated that she takes most of her meds in the morning around 6am, except for zolpidem. Also stated that she has been unstable on her feet with blurry vision since the doctor increased her lamictal dose. Mallory Leary, FelicityD
[2021-11-26] MEDS: LORazepam 0.5 MG TABLET PO (11:21)
[2021-11-26] MEDS: Lithium Carbonate ER 300 MG TABLET.ER 600 MG PO (11:21)
--- NOTE | 2021-11-26 12:11 | PC.NURSE ---
reports good effect from ativan po. was teary and anxious. visited, calm visit. states her is helpful.
[2021-11-26 12:48] LABS: Amphetamine Screen Urine Not Detected (Not Detect); Barbiturates, Urine Not Detected (Not Detect); Benzodiazepines Screen Urine Not Detected (Not Detect); Cannabinoid Screen Urine POSITIVE (Not Detect); Cocaine Screen Urine Not Detected (Not Detect); Fentanyl, urine Not Detected (Not Detect); Opiate Screen Urine Not Detected (Not Detect); Phencyclidine Screen Urine Not Detected (Not Detect)
--- NOTE | 2021-11-26 16:11 | MHC.CARE ---
Pt does not meet criteria for IPLOC. Plan for Psychiatry to see before discharged regarding medication side affects.
--- NOTE | 2021-11-26 18:04 | P.CNPS_ITS ---
History of Present Illness Date of Service: 11/26/21 Chief Complaint: crisis Reason for Consult: Medication Discussed with referring provider: Yes Sources of Information: patient interviewed, chart reviewed and crisis/core team assessment reviewed HPI Narrative: Jaja is 61 y.o. female with a history of bipolar II disorder. She presented to [facility] on 11/26/21 due to complaints of worsening depression x 2 weeks. Her dose of Lamictal was recently increased to 175 mg however, reports she has been feeling dizzy since her increase when she moves around. She denies SI/HI. Per CARE team eval, pt does not appear to be off of her level of baseline of functioning. Consult requested for medication eval. I evaluated the pt this afternoon and upon interview she reports she does not want medication changes, ?I have my psych doctor,? plans on calling her tuesday. Says the lamictal was increased because ?I was feeling so depressed,? however has SE of feeling dizzy, off balance. Pt feels she has supports. Reports sx of depression include not attending to ADLs, i.e. she hasn?t gotten off her couch in 4 weeks, cleaning herself out of the sink. Says ?this time around the depression is really bad, I never had it like this.? However, she was able to take a trip to [place] with her family, which she is proud of. Precipitating factors include she is grieving her mother. Feels ?frustrated? that she is not meeting level of care for inpatient referral. Interested in a referral for TMS at [facility]. Past Psychiatric History: IP: Several, most recent 09/2021- 1998, 2016, 2019, several admits to [facility] OP: [place] GALLARDO is pt's medication provider Neuropsych testing referral at [facility] is pending Trials: Several, hx of TMS with [facility] Medical Evaluation Reviewed: Yes [facility] Medical History Benzodiazepine abuse Bipolar II disorder Cannabis use disorder, moderate, dependence COPD (chronic obstructive pulmonary disease) HLD (hyperlipidemia) Hypothyroidism Osteoporosis RLS (restless legs syndrome) Surgical History H/O: hysterectomy Family History: Mental Health and addiction Social History: Lives with Has 1 son who is engaged; other son 5 years ago of an opiate OD Mother May 2021 which is been especially difficult Patient has worked most of her life; she enjoys work however she finds that she takes on too much which is destabilizing for her. Trauma History: Affirms Diagnostics Vital Signs (24Hr): Vital Signs - 24 hr 11/26/21 08:29 Temperature 98.8 F Pulse Rate 96 Respiratory Rate 18 Blood Pressure 141/79 H Pulse Oximetry 97 BMI result Body Mass Index 15.0 Labs Results: 11/26/21 08:36 11/26/21 08:36 Labs: Laboratory Results - last 48 hr 11/26/21 11/26/21 11/26/21 08:29 08:36 08:36 WBC 7.4 RBC 4.16 L Hgb 13.5 Hct 39.8 MCV 95.7 MCH 32.5 MCHC 33.9 RDW 13.7 Plt Count 425 H MPV 9.1 L Immature Gran % (Auto) 0.3 Neut % (Auto) 61.8 Lymph % (Auto) 26.2 [place] % (Auto) 9.5 Eos % (Auto) 1.5 Baso % (Auto) 0.7 Lymph # (Auto) 1.9 [place] # (Auto) 0.7 Eos # (Auto) 0.1 Baso # (Auto) 0.1 Abs Immat Gran (auto) 0.02 Absolute Neuts (auto) 4.6 Absolute Nucleated RBC 0.000 Nucleated RBC % (auto) 0.0 Sodium 138 Potassium 3.8 Chloride 104 Carbon Dioxide 24 Anion Gap 14 BUN 8 L Creatinine 0.92 Estim Creat Clear Calc 37.7 Estimated GFR > 60 Random Glucose 144 H Calcium 9.9 Total Bilirubin 0.9 AST 20 ALT 10 Alkaline Phosphatase 114 Total Protein 7.4 Albumin 4.6 Urine Opiates Screen Urine Fentanyl Screen Ur Barbiturates Screen Ur Phencyclidine Scrn Ur Amphetamines Screen U Benzodiazepines Scrn [place] Urine Cocaine Screen U Marijuana (THC) Screen COVID-19 (WENDY) Negative COVID-19 Clin Com See Note 11/26/21 11/26/21 08:36 12:20 WBC RBC Hgb Hct MCV MCH MCHC RDW Plt Count MPV Immature Gran % (Auto) Neut % (Auto) Lymph % (Auto) [place] % (Auto) Eos % (Auto) Baso % (Auto) Lymph # (Auto) [place] # (Auto) Eos # (Auto) Baso # (Auto) Abs Immat Gran (auto) Absolute Neuts (auto) Absolute Nucleated RBC Nucleated RBC % (auto) Sodium Potassium Chloride Carbon Dioxide Anion Gap BUN Creatinine Estim Creat Clear Calc Estimated GFR Random Glucose Calcium Total Bilirubin AST ALT Alkaline Phosphatase Total Protein Albumin Urine Opiates Screen Not Detected Urine Fentanyl Screen Not Detected Ur Barbiturates Screen Not Detected Ur Phencyclidine Scrn Not Detected Ur Amphetamines Screen Not Detected U Benzodiazepines Scrn Not Detected [place] 0.10 L Urine Cocaine Screen Not Detected U Marijuana (THC) Screen POSITIVE H COVID-19 (WENDY) COVID-19 Clin Com Mental Status Exam Mental Status Exam Narrative: Patient Appearance:?Appropriate Patient Orientation:?Person, Place, Time and Situation Level of Consciousness:?Alert Patient Behavior:?Appropriate, Talkative, Cooperative and Good Eye Contact Mood Description:?Apprehensive Affect Description:?Appropriate Patient Cognition Impaired:?No Ability to Follow Directions:?Good Speech Pattern:?Spontaneous Speech Memory Description:?Intact Hallucinations:?None Delusions:?Not Present Thought Process:?Intact and Goal Oriented Thought Content:?positive for Intact, positive for Goal Oriented, positive for Suicidal Ideation (denies) and positive for Homicidal Ideation (denies) Depressive Symptoms:?Insomnia and Difficulty Sleeping Judgment:?Good Medications Medications Current Medications Atorvastatin Calcium (Atorvastatin Calcium 20 Mg Tablet) 20 mg PO DAILY [facility] Last Admin: 11/26/21 11:24 Dose: Not Given Documented by: Benztropine Mesylate (Benztropine Mesylate 1 Mg Tablet) 1 mg PO BID [facility] Last Admin: 11/26/21 11:24 Dose: Not Given Documented by: Hydroxyzine HCl (Hydroxyzine Hcl 25 Mg Tablet) 25 mg PO BID PRN PRN Reason: panic attack Lamotrigine (Lamotrigine 100 Mg Tablet) 250 mg PO DAILY [facility] Last Admin: 11/26/21 11:23 Dose: Not Given Documented by: Levothyroxine Sodium (Levothyroxine Sodium 75 Mcg Tablet) 75 mcg PO DAILY [facility] Last Admin: 11/26/21 11:23 Dose: Not Given Documented by: [place] Carbonate ([place] Carbonate Er 300 Mg Tablet.Er) 600 mg PO DAILY [facility] Last Admin: 11/26/21 11:21 Dose: 600 mg Documented by: Lorazepam (Lorazepam 0.5 Mg Tablet) 0.5 mg PO BID PRN PRN Reason: anxiety Last Admin: 11/26/21 11:21 Dose: 0.5 mg Documented by: Multivitamins/Vitamin C (Multivitamin Tablet) 1 tab PO DAILY [facility] Last Admin: 11/26/21 11:23 Dose: Not Given Documented by: Non-Formulary Medication (Pramipexole) 1 tab PO BID [facility] Pharmacy Consult (Consult Rx Perform Med Rec) 1 each MISCELLANE ONCE PRN PRN Reason: Consult order Thiamine HCl (Thiamine Hcl 100 Mg Tablet) 100 mg PO DAILY [facility] Last Admin: 11/26/21 11:23 Dose: Not Given Documented by: Vitamin D (Cholecalciferol (Vitamin D3) 25 Mcg Tablet) 25 mcg PO DAILY [facility] Last Admin: 11/26/21 11:24 Dose: Not Given Documented by: Zolpidem Tartrate (Zolpidem Tartrate 5 Mg Tablet) 5 mg PO BEDTIME PRN PRN Reason: insomnia Allergies Allergies Allergy/AdvReac Type Severity Reaction Status Date / Time olanzapine [From ZYPREXA] AdvReac Intermediate RLS Verified 11/26/21 08:28 symptoms atypical antipsychotics AdvReac Severe This class Uncoded 11/25/21 21:58 appears to potentiate RLS/Akathesia Assessment & Plan Assessment & Plan (1) Bipolar II disorder: Status: Acute Code(s): F31.81 - Bipolar II disorder Plan Jaja is 61 y.o. female with a hx of bipolar II disorder. She presented to [facility] on 11/26/21 due to complaints of worsening depression x 2 weeks. Her dose of Lamictal was recently increased to 175 mg however, reports she has been feeling dizzy since her increase when she moves around. Plan: Pt does not want medication changes, planning to follow up with OP provider on Tuesday to discuss dose adjustments. Has not been off balance while in the ED. Will follow up with TMS referral. I spent minutes with the patient and/or on the patient floor today, greater than?50% of which was spent counseling/coordinating care. Patient educated on: medication risk/benefits
--- NOTE | 2021-11-27 15:53 | MHC.CARE ---
CARE Team completed PHP referral. CARE Team attempted to call Pt. Pt did not answer.
== END 2021-11-26 19:45 | disposition home or self-care (01) ==
PROVIDERS: Emergency Provider Emergency Medicine; PCP Internal Medicine
DX: F31.81 Bipolar II disorder (principal); Z20.822 Contact with and (suspected) exposure to COVID-19; F12.20 Cannabis dependence, uncomplicated; F17.200 Nicotine dependence, unspecified, uncomplicated; Z79.899 Other long term (current) drug therapy
CPT/HCPCS: 36415; 80053; 80178; 80307; 85025; 87635; 99284

== ENCOUNTER 2021-12-01 19:56 | Emergency (ER) | payer MEDICARE, SELFPAY ==
[2021-12-01 20:08] VITALS: BP 166/78; PULSE 95; RESP 18; TEMP 36.6; O2SAT 95; BMI 24.7
--- NOTE | 2021-12-01 21:06 | ED.PSYCH ---
HPI - Psych General Chief Complaint: Psychiatric Symptoms Stated Complaint: crisis eval Time Seen by Provider: 12/01/21 21:51 Source: patient Mode of arrival: ambulatory Limitations: no limitations History of Present Illness HPI Narrative: Patient denies any old female states he is more depressed and medications are not helping. Patient denies any suicidal home hydration. Patient was recently seen here last week for medication adjustment. Patient denies any auditory/visual hallucinations. Patient denies any physical complaints. Related Data Home Medications Medication Instructions Recorded Confirmed cholecalciferol (vitamin D3) 25 25 mcg PO DAILY 06/15/20 11/26/21 mcg (1,000 unit) tablet pramipexole 0.5 mg tablet 1 tab PO BID 10/04/21 11/26/21 thiamine HCl (vitamin B1) 100 mg 1 tab PO DAILY 10/30/21 11/26/21 tablet (Vitamin B-1) zolpidem 5 mg tablet 1 tab PO BEDTIME PRN 10/30/21 11/26/21 lamotrigine 100 mg tablet 2.5 tab PO DAILY 11/22/21 11/26/21 levothyroxine 75 mcg tablet 1 tab PO DAILY 11/22/21 11/26/21 lorazepam 0.5 mg tablet 1 tab PO BID PRN 11/22/21 11/26/21 benztropine 1 mg tablet 1 tab PO BID 11/26/21 11/26/21 hydroxyzine HCl 25 mg tablet 1 tab PO BID PRN 11/26/21 11/26/21 lithium carbonate 300 mg 600 mg PO DAILY 11/26/21 11/26/21 tablet,extended release Previous Rx's Medication Instructions Recorded multivitamin (Daily-Oswaldo) 1 tab PO DAILY #30 tab 10/14/21 atorvastatin 20 mg tablet 20 mg PO DAILY #90 tab 11/25/21 Allergies Allergy/AdvReac Type Severity Reaction Status Date / Time olanzapine [From ZYPREXA] AdvReac Intermediate RLS Verified 11/26/21 08:28 symptoms atypical antipsychotics AdvReac Severe This class Uncoded 11/25/21 21:58 appears to potentiate RLS/Akathesia Review of Systems Review of Systems: Depression Yes all other systems are reviewed and are negative PMFSH Past Medical History Medical History Benzodiazepine abuse Bipolar II disorder Cannabis use disorder, moderate, dependence COPD (chronic obstructive pulmonary disease) HLD (hyperlipidemia) Hypothyroidism Osteoporosis RLS (restless legs syndrome) Surgical History H/O: hysterectomy Family History Family History Mother No problems noted. Father No problems noted. Son Substance use disorder Social History Social History Household Members: Spouse Household Members Other:: adult son Housing: House Do you presently have visiting nurse or other home services: No Alcohol intake: never Patient Tobacco Use Status: Current someday Tobacco user Tobacco use type: Cigarette Cigarette Packs Per Day: 1 Cigarettes Per Day: 20.0 Years Smoked: 40 e-Cigarette/Vaping Use: Currently Using Second Hand Smoke Exposure: No Substance Use Type: Marijuana Advance Directives: No Advance Directives Information Provided: No Guardian: No service: No Current occupational status: employed Sexual orientation: Straight/Heterosexual Physical Exam Vital Signs: Vital Signs: Last Vital Signs Temp 97.8 F 12/01/21 23:50 Pulse 84 12/01/21 23:50 Resp 16 12/01/21 23:50 BP 99/74 12/01/21 23:50 Pulse Ox 97 12/01/21 23:50 BMI result Body Mass Index 24.7 Const: General: cooperative, healthy appearing, comfortable, no acute distress, well developed, alert, awake and Physically active Orientation/consciousness: oriented to time and patient oriented x3 HEENT: Head: Yes normal to inspection, Yes No palpable skull fracture present, Yes normocephalic, Yes atraumatic and No abrasion Eyes: General: appearance normal, both eyes and all related structures Neck: Neck: Yes normal visual inspection, Yes full ROM, Yes no lymphadenopathy, Yes no meningeal signs, Yes trachea midline, Yes supple, No anterior neck swelling and No tender Chest: Chest palpation & inspection: normal inspection of the chest and normal palpation of entire chest wall Resp: Effort & Inspection: normal respiratory effort and able to speak in complete sentences Auscultation: clear to auscultation bilaterally Cardio: Jugular venous distension: no JVD Heart sounds: S1 normal heart sound present and S2 normal heart sound present GI: Inspection: Yes normal to inspection and No abdominal wall ecchymosis Palpation (GI): Soft to palpation, not firm, nontender, no guarding and not rigid : General: No CVA tenderness and Yes no CVA tenderness Back/Spine/Pelvis: Back: no CVA tenderness, No CVA tenderness and No back tenderness Skin: General skin exam: no rashes or lesions noted and elasticity normal Neuro: General: oriented to time, patient oriented x3, gait normal, no meningeal signs and CN's II-XI intact bilaterally Cranial nerves: Yes CN's II-XII intact bilaterally Extrem: General: Yes normal to inspection and Yes full ROM Psych: Other: depressed Appearance: grossly normal, poorly kempt and disheveled Course Course Course Narrative: Patient labs ordered. U tox ordered. Waiting for care team evaluation. Signed out to Dr. Johnston [facility] - Psych Lab Data Result diagrams: 12/01/21 21:51 12/01/21 21:51 Labs: Lab Results 12/01/21 12/01/21 12/01/21 Range/Units 21:51 21:51 21:51 WBC 8.6 (4.8-10.8) X10*3/uL RBC 4.01 L (4.20-5.50) X10*6/uL Hgb 12.8 (12.0-16.0) g/dl Hct 38.7 (37.0-47.0) % MCV 96.5 (80.0-98.0) fL MCH 31.9 (27.0-33.0) pg MCHC 33.1 (31.0-35.0) g/dl RDW 13.7 (11.0-16.0) % Plt Count 501 H (160-400) X10*3/uL MPV 9.1 L (9.4-12.3) fL Immature Gran % (Auto) 0.2 (0.0-0.4) % Neut % (Auto) 56.2 (45-73) % Lymph % (Auto) 33.8 (20-40) % [place] % (Auto) 7.7 (2-11) % Eos % (Auto) 1.6 (0-4) % Baso % (Auto) 0.5 (0-2) % Lymph # (Auto) 2.9 (1.2-4.9) X10*3/uL [place] # (Auto) 0.7 (0.1-1.2) X10*3/uL Eos # (Auto) 0.1 (0.0-0.4) X10*3/uL Baso # (Auto) 0.0 (0.0-0.2) X10*3/uL Abs Immat Gran (auto) 0.02 (0.00-0.03) X10*3/uL Absolute Neuts (auto) 4.8 (2.0-8.3) x10*3/uL Absolute Nucleated RBC 0.000 (0.0-0.012) X10*3/uL Nucleated RBC % (auto) 0.0 (0.0-0.2) /100WBC Sodium 141 (135-145) mmol/L Potassium 3.7 (3.3-5.1) mmol/L Chloride 104 (96-108) mmol/L Carbon Dioxide 28 (22-29) mmol/L Anion Gap 13 (12-20) BUN 5 L (9-16) mg/dL Creatinine 0.84 (0.5-1.4) mg/dL Estim Creat Clear Calc 62.1 Estimated GFR > 60 Random Glucose 95 (60-115) mg/dL Calcium 9.8 (8.4-10.2) mg/dL Total Bilirubin 0.7 (0.0-1.0) mg/dL AST 22 (5-31) U/L ALT 14 (0-31) U/L Alkaline Phosphatase 109 (39-117) U/L Total Protein 7.4 (6.5-8.0) g/dL Albumin 4.6 (3.5-5.0) g/dL Urine Color Urine Appearance Urine pH (5.0-8.0) Ur Specific [place] (1.005-1.025) Urine Protein (NEG-TRACE) MG/DL Urine Glucose (UA) (NEG) MG/DL Urine Ketones (NEG) MG/DL Urine Blood (NEG) Urine Nitrite (NEG) Ur Leukocyte Esterase (NEG) Urine RBC (0) /HPF Urine WBC (0-4) /HPF Ur Squamous Epith Cells /LPF Urine Bacteria /LPF Hyaline Casts /LPF Granular Casts /LPF Urine Mucus /LPF Urine Opiates Screen (Not Detect) Urine Fentanyl Screen (Not Detect) Ur Barbiturates Screen (Not Detect) Ur Phencyclidine Scrn (Not Detect) Ur Amphetamines Screen (Not Detect) U Benzodiazepines Scrn (Not Detect) Urine Cocaine Screen (Not Detect) U Marijuana (THC) Screen (Not Detect) Ethyl Alcohol < 10 mg/dL 12/02/21 12/02/21 Range/Units 01:02 01:02 WBC (4.8-10.8) X10*3/uL RBC (4.20-5.50) X10*6/uL Hgb (12.0-16.0) g/dl Hct (37.0-47.0) % MCV (80.0-98.0) fL MCH (27.0-33.0) pg MCHC (31.0-35.0) g/dl RDW (11.0-16.0) % Plt Count (160-400) X10*3/uL MPV (9.4-12.3) fL Immature Gran % (Auto) (0.0-0.4) % Neut % (Auto) (45-73) % Lymph % (Auto) (20-40) % [place] % (Auto) (2-11) % Eos % (Auto) (0-4) % Baso % (Auto) (0-2) % Lymph # (Auto) (1.2-4.9) X10*3/uL [place] # (Auto) (0.1-1.2) X10*3/uL Eos # (Auto) (0.0-0.4) X10*3/uL Baso # (Auto) (0.0-0.2) X10*3/uL Abs Immat Gran (auto) (0.00-0.03) X10*3/uL Absolute Neuts (auto) (2.0-8.3) x10*3/uL Absolute Nucleated RBC (0.0-0.012) X10*3/uL Nucleated RBC % (auto) (0.0-0.2) /100WBC Sodium (135-145) mmol/L Potassium (3.3-5.1) mmol/L Chloride (96-108) mmol/L Carbon Dioxide (22-29) mmol/L Anion Gap (12-20) BUN (9-16) mg/dL Creatinine (0.5-1.4) mg/dL Estim Creat Clear Calc Estimated GFR Random Glucose (60-115) mg/dL Calcium (8.4-10.2) mg/dL Total Bilirubin (0.0-1.0) mg/dL AST (5-31) U/L ALT (0-31) U/L Alkaline Phosphatase (39-117) U/L Total Protein (6.5-8.0) g/dL Albumin (3.5-5.0) g/dL Urine Color YELLOW Urine Appearance CLEAR Urine pH 7.0 (5.0-8.0) Ur Specific [place] 1.020 (1.005-1.025) Urine Protein 1+ H (NEG-TRACE) MG/DL Urine Glucose (UA) NEG (NEG) MG/DL Urine Ketones NEG (NEG) MG/DL Urine Blood NEG (NEG) Urine Nitrite NEG (NEG) Ur Leukocyte Esterase TRACE H (NEG) Urine RBC 1-4 (0) /HPF Urine WBC 5-9 H (0-4) /HPF Ur Squamous Epith Cells 2+ /LPF Urine Bacteria 3+ /LPF Hyaline Casts 1-4 /LPF Granular Casts 1-4 /LPF Urine Mucus 1+ /LPF Urine Opiates Screen Not Detected (Not Detect) Urine Fentanyl Screen Not Detected (Not Detect) Ur Barbiturates Screen Not Detected (Not Detect) Ur Phencyclidine Scrn Not Detected (Not Detect) Ur Amphetamines Screen POSITIVE H (Not Detect) U Benzodiazepines Scrn Not Detected (Not Detect) Urine Cocaine Screen Not Detected (Not Detect) U Marijuana (THC) Screen POSITIVE H (Not Detect) Ethyl Alcohol mg/dL Discharge Plan Discharge Clinical Impression: Depression Prescriptions: No Action atorvastatin 20 mg tablet 20 mg PO DAILY Qty: 90 8RF cholecalciferol (vitamin D3) 25 mcg (1,000 unit) tablet 25 mcg PO DAILY 0RF pramipexole 0.5 mg tablet 1 tab PO BID 0RF multivitamin [Daily-Oswaldo] Tablet 1 tab PO DAILY Qty: 30 0RF thiamine HCl (vitamin B1) [Vitamin B-1] 100 mg tablet 1 tab PO DAILY 0RF zolpidem 5 mg tablet 1 tab PO BEDTIME PRN (Reason: insomnia) 0RF lamotrigine 100 mg tablet 2.5 tab PO DAILY 0RF levothyroxine 75 mcg tablet 1 tab PO DAILY 0RF lorazepam 0.5 mg tablet 1 tab PO BID PRN (Reason: anxiety) 0RF benztropine 1 mg tablet 1 tab PO BID 0RF hydroxyzine HCl 25 mg tablet 1 tab PO BID PRN (Reason: panic attack) 0RF lithium carbonate 300 mg tablet extended release 600 mg PO DAILY 0RF
[2021-12-01 21:07] VITALS: BP 145/76; PULSE 89; RESP 18; TEMP 36.8; O2SAT 97
[2021-12-01 21:56] LABS: MANUAL DIFF FLAG NO
[2021-12-01 21:57] LABS: Basophils Percent Auto 0.5 % (0-2); Eosinophils Absolute Auto 0.1 X10*3/uL (0.0-0.4); Eosinophils Percent Auto 1.6 % (0-4); Hematocrit 38.7 % (37.0-47.0); Hemoglobin 12.8 g/dl (12.0-16.0); Imm Gran Abs Auto 0.02 X10*3/uL (0.00-0.03); Imm Gran Pct Auto 0.2 % (0.0-0.4); Lymphocytes Absolute Auto 2.9 X10*3/uL (1.2-4.9); Lymphocytes Percent Auto 33.8 % (20-40); Mean Corpuscular HGB Conc 33.1 g/dl (31.0-35.0); Mean Corpuscular Hemoglobin 31.9 pg (27.0-33.0); Mean Corpuscular Volume 96.5 fL (80.0-98.0); Mean Platelet Volume 9.1 fL (9.4-12.3); Monocytes Absolute Auto 0.7 X10*3/uL (0.1-1.2); Monocytes Percent Auto 7.7 % (2-11); Neutrophils Absolute Auto 4.8 x10*3/uL (2.0-8.3); Neutrophils Percent Auto 56.2 % (45-73); Platelet Count 501 X10*3/uL (160-400); Red Blood Count 4.01 X10*6/uL (4.20-5.50); Red Cell Distribution Width 13.7 % (11.0-16.0); White Blood Count 8.6 X10*3/uL (4.8-10.8)
[2021-12-01 22:20] LABS: Ethanol < 10 mg/dL
[2021-12-01 22:23] LABS: Alanine Aminotransferase 14 U/L (0-31); Albumin Level 4.6 g/dL (3.5-5.0); Alkaline Phosphatase 109 U/L (39-117); Anion Gap 13 (12-20); Aspartate Amino Transferase 22 U/L (5-31); Bilirubin Total 0.7 mg/dL (0.0-1.0); Blood Urea Nitrogen 5 mg/dL (9-16); Calcium 9.8 mg/dL (8.4-10.2); Carbon Dioxide 28 mmol/L (22-29); Chloride 104 mmol/L (96-108); Creatinine Clr Calc Pharmacy 62.1; Estimated Glomerular Filt Rate > 60; Glucose Random 95 mg/dL (60-115); Potassium 3.7 mmol/L (3.3-5.1); Sodium 141 mmol/L (135-145); Total Protein 7.4 g/dL (6.5-8.0)
[2021-12-01 23:50] VITALS: BP 99/74; PULSE 84; RESP 16; TEMP 36.6; O2SAT 97
[2021-12-02 01:10] LABS: Appearance Urine CLEAR; Color Urine YELLOW; Glucose Urine UA NEG (NEG); Leukocyte Esterase Urine TRACE (NEG); Nitrite Urine NEG (NEG); UACC Culture Trigger YES; Urine Blood NEG (NEG); Urine Ketones NEG (NEG); Urine Protein 1+ MG/DL (NEG-TRACE)
[2021-12-02 01:19] LABS: Bacteria Urine 3+ /LPF; Mucus Urine 1+ /LPF; Squamous Epithelial Cell Urine 2+ /LPF
[2021-12-02 01:28] LABS: Amphetamine Screen Urine POSITIVE (Not Detect); Barbiturates, Urine Not Detected (Not Detect); Benzodiazepines Screen Urine Not Detected (Not Detect); Cannabinoid Screen Urine POSITIVE (Not Detect); Cocaine Screen Urine Not Detected (Not Detect); Fentanyl, urine Not Detected (Not Detect); Opiate Screen Urine Not Detected (Not Detect); Phencyclidine Screen Urine Not Detected (Not Detect)
[2021-12-02] MEDS: Zolpidem Tartrate 5 MG TABLET PO (01:41)
--- NOTE | 2021-12-02 01:44 | PC.NURSE ---
Assumed care of pt Pt alert and oriented x 4 Pt medicated per MAR Denies SI/HI Awaiting crisis eval
[2021-12-02 03:18] VITALS: BP 114/64; PULSE 80; RESP 16; TEMP 36.6; O2SAT 98
--- NOTE | 2021-12-02 03:47 | MHC.CARE ---
CARE team markel completed. Pt does not present with acute symptoms necessitating psychiatric admission nor does she demonstrate an imminent risk for harm to herself or others. Plan of care is for pt to discharge home in the morning and CARE team will complete a referral for Partial Hospitalization Program.
[2021-12-02 05:58] VITALS: BP 101/63; PULSE 68; RESP 16; TEMP 36.4; O2SAT 95
--- NOTE | 2021-12-02 07:01 | PC.NURSE ---
Received report from Elvis GALVIN. Patient is awake and at bedside. Calm and cooperative, tearful at times. Patient reports aware of plan for discharge home with partial hospitalization program, awaiting discharge. Denies SI/HI. Respirations regular, even, and nonlabored. Skin PWD. Awaiting discharge.
[2021-12-02 07:29] VITALS: BP 109/60; PULSE 80; RESP 18; O2SAT 98
== END 2021-12-02 08:12 | disposition home or self-care (01) ==
PROVIDERS: Physician Assistant; Emergency Provider Emergency Medicine Emergency Medical Services
DX: F33.1 Major depressive disorder, recurrent, moderate (principal); F17.210 Nicotine dependence, cigarettes, uncomplicated; F12.90 Cannabis use, unspecified, uncomplicated; Z71.6 Tobacco abuse counseling; Z79.899 Other long term (current) drug therapy
CPT/HCPCS: 36415; 80053; 80307; 81001; 82077; 85025; 87086; 99284

== ENCOUNTER 2022-02-16 07:28 | Emergency (ER) | payer MEDICARE, SELFPAY ==
[2022-02-16 08:25] VITALS: BP 109/63; PULSE 81; RESP 18; TEMP 36.6; O2SAT 96; BMI 18.7
[2022-02-16 08:51] LABS: Amphetamine Screen Urine Not Detected (Not Detect); Barbiturates, Urine Not Detected (Not Detect); Benzodiazepines Screen Urine Not Detected (Not Detect); Cannabinoid Screen Urine POSITIVE (Not Detect); Cocaine Screen Urine Not Detected (Not Detect); Fentanyl, urine Not Detected (Not Detect); Opiate Screen Urine Not Detected (Not Detect); Phencyclidine Screen Urine Not Detected (Not Detect)
[2022-02-16] MEDS: LORazepam 1 MG TABLET PO (08:57)
[2022-02-16 09:03] LABS: COVID-19 Test Negative (Negative)
[2022-02-16 09:04] VITALS: RESP 16
--- NOTE | 2022-02-16 10:00 | ECG_ITS ---
Test Reason : medical clearance Blood Pressure : / mmHG Vent. Rate : 062 BPM Atrial Rate : 062 BPM P-R Int : 128 ms QRS Dur : 088 ms QT Int : 402 ms P-R-T Axes : 072 062 056 degrees QTc Int : 408 ms Normal sinus rhythm Normal ECG When compared with ECG of 06-OCT-2021 10:32, Nonspecific T wave abnormality no longer evident in Inferior leads Referred By: Carolina Wick Electronically Signed By:Sebastian Vivas
[2022-02-16 10:42] LABS: MANUAL DIFF FLAG NO
[2022-02-16 10:44] LABS: Basophils Absolute Auto 0.1 X10*3/uL (0.0-0.2); Basophils Percent Auto 0.9 % (0-2); Eosinophils Absolute Auto 0.1 X10*3/uL (0.0-0.4); Eosinophils Percent Auto 1.8 % (0-4); Hematocrit 37.2 % (37.0-47.0); Hemoglobin 12.4 g/dl (12.0-16.0); Imm Gran Abs Auto 0.02 X10*3/uL (0.00-0.03); Imm Gran Pct Auto 0.3 % (0.0-0.4); Lymphocytes Absolute Auto 2.1 X10*3/uL (1.2-4.9); Lymphocytes Percent Auto 26.8 % (20-40); Mean Corpuscular HGB Conc 33.3 g/dl (31.0-35.0); Mean Corpuscular Hemoglobin 31.8 pg (27.0-33.0); Mean Corpuscular Volume 95.4 fL (80.0-98.0); Mean Platelet Volume 9.4 fL (9.4-12.3); Monocytes Absolute Auto 0.7 X10*3/uL (0.1-1.2); Monocytes Percent Auto 8.3 % (2-11); Neutrophils Percent Auto 61.9 % (45-73); Platelet Count 420 X10*3/uL (160-400); Red Cell Distribution Width 13.7 % (11.0-16.0)
[2022-02-16 10:54] LABS: Lithium < 0.04 mmol/L (0.60-1.20)
[2022-02-16 11:03] LABS: Alanine Aminotransferase 8 U/L (0-31); Albumin Level 4.1 g/dL (3.5-5.0); Alkaline Phosphatase 88 U/L (39-117); Anion Gap 10 (12-20); Aspartate Amino Transferase 12 U/L (5-31); Bilirubin Total 0.3 mg/dL (0.0-1.0); Blood Urea Nitrogen 11 mg/dL (9-16); Calcium 9.3 mg/dL (8.4-10.2); Carbon Dioxide 29 mmol/L (22-29); Chloride 103 mmol/L (96-108); Creatinine Clr Calc Pharmacy 71.7; Estimated Glomerular Filt Rate > 60; Glucose Random 90 mg/dL (60-115); Magnesium 2.1 mg/dL (1.6-2.6); Sodium 137 mmol/L (135-145); Total Protein 6.5 g/dL (6.5-8.0)
[2022-02-16 11:19] LABS: TSH reflex Free T4 5.39 uIU/mL (0.32-4.0)
[2022-02-16 12:06] LABS: Free T4 (Free Thyroxine) 0.86 ng/dL (0.71-1.85)
--- NOTE | 2022-02-16 13:22 | ED.PSYCH ---
HPI - Psych General Chief Complaint: Psychiatric Symptoms Stated Complaint: crisis, physic eval Time Seen by Provider: 02/16/22 08:22 Source: patient Mode of arrival: ambulatory Limitations: no limitations History of Present Illness HPI Narrative: 61-year-old female with a past medical history of bipolar disorder presenting to the ED with complaints of increased anxiety/depression due to she was taken off all her medications by a provider at [facility] when she was there few weeks ago and she feels like her medications were actually helping her. She reports that she passes the bridge in [place] daily due to that is where she lives and she has had thoughts of jumping off the bridge although she reports ?I would never do this because I have a family that loves me and too much look forward to therefore I just passed by with my head straight and high?. She denies any auditory visual sensation or self-injury dia. She reports she smokes marijuana although denies any other drug uses. She denies any alcohol usage. She denies any fevers, chills, dizziness, headache, neck pain/stiffness, trouble swallowing or breathing, chest pain or shortness of breath, nausea/vomiting/diarrhea constipation, black or bloody stool, abdominal pain, flank pain, dysuria, hematuria, abnormal vaginal discharge, rashes or any other symptoms complaints or concerns at this time. MD complaint: feels depressed, anxiety and other (Wants to be restarted on her medications) Onset (ago): day(s) Duration: constant and getting worse History of same: Yes Relieving factors: medication Exacerbating factors: none Context: not taking psychiatric medications (Due to taken off by a provider at [facility] ) Associated psychiatric symptoms: depression Associated symptoms: denies other symptoms Treatments prior to arrival: none Related Data Home Medications Medication Instructions Recorded Confirmed pramipexole 0.5 mg tablet 1 tab PO BID 10/04/21 02/12/22 thiamine HCl (vitamin B1) 100 mg 1 tab PO DAILY 10/30/21 02/12/22 tablet (Vitamin B-1) zolpidem 5 mg tablet 1 tab PO BEDTIME PRN insomnia 10/30/21 02/12/22 levothyroxine 75 mcg tablet 1 tab PO DAILY 11/22/21 02/12/22 lorazepam 0.5 mg tablet 1 tab PO BID PRN anxiety 11/22/21 02/12/22 Previous Rx's Medication Instructions Recorded atorvastatin 20 mg tablet 20 mg PO DAILY #90 tabs 11/25/21 cholecalciferol (vitamin D3) 25 25 mcg PO DAILY #90 tabs 02/12/22 mcg (1,000 unit) tablet multivitamin (Daily-Oswaldo) 1 tab PO DAILY #30 tabs 02/12/22 albuterol sulfate 90 mcg/actuation 2 puff inhalation Q4-6H PRN 02/16/22 aerosol inhaler shortness of breath or wheezing 30 days #6.7 grams Allergies Allergy/AdvReac Type Severity Reaction Status Date / Time olanzapine [From ZYPREXA] AdvReac Intermediate RLS Verified 02/12/22 13:08 symptoms atypical antipsychotics AdvReac Severe This class Uncoded 11/25/21 21:58 appears to potentiate RLS/Akathesia Review of Systems Review of Systems: Constitutional : No Fever, No Chills ENT/Mouth : No Ear Pain, No Nasal Congestion, No sore throat Eyes: No Eye Pain, No Swelling, No Redness Cardiovascular : No Chest Pain, No SOB Respiratory : No Cough, No Sputum, No Dyspnea Gastrointestinal : No ingestions, No Nausea, No Vomiting, No Diarrhea, No Hematochezia, No Melena Genitourinary : No Dysuria, No Urinary Frequency, No Hematuria Musculoskeletal : No Myalgias Skin : No Skin Lesions, No rash Neuro : No Weakness, No Numbness, No Paresthesias, No Dizziness, No Headache Psych : + Anxiety, + Depression, No SI, No thoughts of self injury, No HI, No AVH, Heme/Lymph: No Lymphadenopathy Endocrine : No Polyuria, No Polydipsia Yes all other systems are reviewed and are negative [facility] Past Medical History Attestation statement: The following information was validated with the patient. Source: old records reviewed and nursing notes reviewed Medical History Benzodiazepine abuse Bipolar II disorder Cannabis use disorder, moderate, dependence COPD (chronic obstructive pulmonary disease) HLD (hyperlipidemia) Hypothyroidism Osteoporosis RLS (restless legs syndrome) Surgical History H/O: hysterectomy Family History Family History Mother No problems noted. Father No problems noted. Son Substance use disorder Social History Social History Household Members: Spouse Household Members Other:: adult son Housing: House Do you presently have visiting nurse or other home services: No Alcohol intake: never Patient Tobacco Use Status: Current someday Tobacco user Tobacco use type: Cigarette Cigarettes Per Day: 3 Years Smoked: 40 e-Cigarette/Vaping Use: Currently Using Second Hand Smoke Exposure: Yes Substance Use Type: Marijuana Advance Directives: No Advance Directives Information Provided: Yes service: No Current occupational status: employed Sexual orientation: Straight/Heterosexual Cognitive needs: No Hearing needs: No Vision needs: No Physical Exam Vital Signs: Vital Signs: Last Vital Signs Temp 97.9 F 02/16/22 08:25 Pulse 81 02/16/22 08:25 Resp 16 02/16/22 09:04 BP 109/63 02/16/22 08:25 Pulse Ox 96 02/16/22 08:25 O2 Del Method 02/16/22 08:25 BMI result Body Mass Index 18.7 vital signs have been reviewed as normal and appeared to be correct. Blood pressure normal. Heart rate normal. Respiration rate normal. Temperature normal. Oxygen saturation normal. Appearance: Alert. Oriented X3. No acute distress. Head: Normal external exam. Normocephalic. Atraumatic. No [place] signs noted. No raccoon eyes noted Eyes: PERRLA. EOMI. Conjunctiva and sclera normal. Eyelids normal. ENT: EAC normal. TM's Normal. Pharynx normal. Uvula midline. Moist mucous membranes. No trismus noted. No drooling noted. No muffled voice noted. Neck: Normal inspection. Neck supple. FROM. No adenopathy. Thyroid Normal. No meningeal signs. No neck mass noted. CVS: Normal heart rate and rhythm. Heart sound normal. No murmurs noted. Pulses normal throughout. Respiratory: No respiratory distress. Painless inspiration. Breath sounds normal. No wheezes/rales/rhonchi noted. Chest nontender. No accessory muscle usage noted or decreased air movement noted. Abdomen: Soft and nontender. Bowel sounds normal in all 4 quadrants. No distention noted. No organomegaly noted. No visible injury noted. Back: No CVA tenderness. Full range of motion noted. Skin: Skin warm and dry. Normal skin color. Normal skin turgor. No rashes/lesions/lacerations noted. Extremities: No lower extremity edema. Extremities exhibit normal range of motion. Extremities nontender. Neuro: Oriented X 3. No motor deficit. No sensory deficit. Reflexes normal. CN's II-XII intact bilaterally? Psych: Appearance grossly normal, well-kept, mental status normal, speech and movement normal, speech clear, patient appears very sad and anxious along with depressed. Is cooperative. Normal thought process. Normal thought content. Normal good insight. Judgment good. Course Course Course Narrative: 61-year-old female with a past medical history of bipolar disorder presenting to the ED with complaints of increased anxiety/depression due to she was taken off all her medications by a provider at [facility] when she was there few weeks ago and she feels like her medications were actually helping her. She reports that she passes the bridge in [facility] daily due to that is where she lives and she has had thoughts of jumping off the bridge although she reports ?I would never do this because I have a family that loves me and too much look forward to therefore I just passed by with my head straight and high?. She denies any auditory visual sensation or self-injury dia. She reports she smokes marijuana although denies any other drug uses. She denies any alcohol usage. Labs reviewed the patient has a platelet count of 420 which is lower when compared to prior. TSH level 5.39 otherwise free T4 within normal limits. Patient positive for marijuana negative for all other drugs. [place] level is negative. Patient negative for COVID. Patient was evaluated by Mykel from the care team and now she denies any SI/HI/auditory visual hallucinations or thoughts of self-injury port and that she would like to go home despite not being on her medication she reports that she can follow-up as an outpatient basis therefore at this time will instruct patient to return if any new or worsening symptoms especially if she develops any SI especially if she has a plan as well and she understands that she will return immediately although she reports that she has a few plan today and she is looking forward to her plans and her family time. [facility] - Psych Medical Records Attestation: I reviewed the patient's medical records. Lab Data Attestation: I reviewed the patient's lab results. Result diagrams: 02/16/22 10:38 02/16/22 10:38 Labs: Lab Results 02/16/22 02/16/22 02/16/22 Range/Units 08:26 08:26 10:38 WBC (4.8-10.8) X10*3/uL RBC (4.20-5.50) X10*6/uL Hgb (12.0-16.0) g/dl Hct (37.0-47.0) % MCV (80.0-98.0) fL MCH (27.0-33.0) pg MCHC (31.0-35.0) g/dl RDW (11.0-16.0) % Plt Count (160-400) X10*3/uL MPV (9.4-12.3) fL Immature Gran % (Auto) (0.0-0.4) % Neut % (Auto) (45-73) % Lymph % (Auto) (20-40) % [place] % (Auto) (2-11) % Eos % (Auto) (0-4) % Baso % (Auto) (0-2) % Lymph # (Auto) (1.2-4.9) X10*3/uL [place] # (Auto) (0.1-1.2) X10*3/uL Eos # (Auto) (0.0-0.4) X10*3/uL Baso # (Auto) (0.0-0.2) X10*3/uL Abs Immat Gran (auto) (0.00-0.03) X10*3/uL Absolute Neuts (auto) (2.0-8.3) x10*3/uL Absolute Nucleated RBC (0.0-0.012) X10*3/uL Nucleated RBC % (auto) (0.0-0.2) /100WBC Sodium 137 (135-145) mmol/L Potassium 5.0 D (3.3-5.1) mmol/L Chloride 103 (96-108) mmol/L Carbon Dioxide 29 (22-29) mmol/L Anion Gap 10 L (12-20) BUN 11 D (9-16) mg/dL Creatinine 0.64 (0.5-1.4) mg/dL Estim Creat Clear Calc 71.7 Estimated GFR > 60 Random Glucose 90 (60-115) mg/dL Calcium 9.3 (8.4-10.2) mg/dL Magnesium 2.1 (1.6-2.6) mg/dL Total Bilirubin 0.3 (0.0-1.0) mg/dL AST 12 D (5-31) U/L ALT 8 (0-31) U/L Alkaline Phosphatase 88 (39-117) U/L Total Protein 6.5 (6.5-8.0) g/dL Albumin 4.1 (3.5-5.0) g/dL TSH 5.39 H (0.32-4.0) uIU/mL Free T4 0.86 (0.71-1.85) ng/dL Urine Opiates Screen Not Detected (Not Detect) Urine Fentanyl Screen Not Detected (Not Detect) Ur Barbiturates Screen Not Detected (Not Detect) Ur Phencyclidine Scrn Not Detected (Not Detect) Ur Amphetamines Screen Not Detected (Not Detect) U Benzodiazepines Scrn Not Detected (Not Detect) [place] (0.60-1.20) mmol/L Urine Cocaine Screen Not Detected (Not Detect) U Marijuana (THC) Screen POSITIVE H (Not Detect) COVID-19 (WENDY) Negative (Negative) COVID-19 Clin Com See Note 02/16/22 02/16/22 Range/Units 10:38 10:38 WBC 8.0 (4.8-10.8) X10*3/uL RBC 3.90 L (4.20-5.50) X10*6/uL Hgb 12.4 (12.0-16.0) g/dl Hct 37.2 (37.0-47.0) % MCV 95.4 (80.0-98.0) fL MCH 31.8 (27.0-33.0) pg MCHC 33.3 (31.0-35.0) g/dl RDW 13.7 (11.0-16.0) % Plt Count 420 H (160-400) X10*3/uL MPV 9.4 (9.4-12.3) fL Immature Gran % (Auto) 0.3 (0.0-0.4) % Neut % (Auto) 61.9 (45-73) % Lymph % (Auto) 26.8 (20-40) % [place] % (Auto) 8.3 (2-11) % Eos % (Auto) 1.8 (0-4) % Baso % (Auto) 0.9 (0-2) % Lymph # (Auto) 2.1 (1.2-4.9) X10*3/uL [place] # (Auto) 0.7 (0.1-1.2) X10*3/uL Eos # (Auto) 0.1 (0.0-0.4) X10*3/uL Baso # (Auto) 0.1 (0.0-0.2) X10*3/uL Abs Immat Gran (auto) 0.02 (0.00-0.03) X10*3/uL Absolute Neuts (auto) 5.0 (2.0-8.3) x10*3/uL Absolute Nucleated RBC 0.000 (0.0-0.012) X10*3/uL Nucleated RBC % (auto) 0.0 (0.0-0.2) /100WBC Sodium (135-145) mmol/L Potassium (3.3-5.1) mmol/L Chloride (96-108) mmol/L Carbon Dioxide (22-29) mmol/L Anion Gap (12-20) BUN (9-16) mg/dL Creatinine (0.5-1.4) mg/dL Estim Creat Clear Calc Estimated GFR Random Glucose (60-115) mg/dL Calcium (8.4-10.2) mg/dL Magnesium (1.6-2.6) mg/dL Total Bilirubin (0.0-1.0) mg/dL AST (5-31) U/L ALT (0-31) U/L Alkaline Phosphatase (39-117) U/L Total Protein (6.5-8.0) g/dL Albumin (3.5-5.0) g/dL TSH (0.32-4.0) uIU/mL Free T4 (0.71-1.85) ng/dL Urine Opiates Screen (Not Detect) Urine Fentanyl Screen (Not Detect) Ur Barbiturates Screen (Not Detect) Ur Phencyclidine Scrn (Not Detect) Ur Amphetamines Screen (Not Detect) U Benzodiazepines Scrn (Not Detect) [place] < 0.04 L (0.60-1.20) mmol/L Urine Cocaine Screen (Not Detect) U Marijuana (THC) Screen (Not Detect) COVID-19 (WENDY) (Negative) COVID-19 Clin Com Discharge Plan Discharge Clinical Impression: Anxiety, Depression, Bipolar disorder Patient Disposition: Home, Self-Care Instructions: Bipolar Disorder (ED), Depression (ED), Anxiety (ED) Prescriptions: No Action atorvastatin 20 mg tablet 20 mg PO DAILY Qty: 90 8RF albuterol sulfate 90 mcg/actuation HFA aerosol inhaler 2 puff inhalation Q4-6H PRN (Reason: shortness of breath or wheezing) 30 Days Qty: 6.7 0RF pramipexole 0.5 mg tablet 1 tab PO BID thiamine HCl (vitamin B1) [Vitamin B-1] 100 mg tablet 1 tab PO DAILY zolpidem 5 mg tablet 1 tab PO BEDTIME PRN (Reason: insomnia) levothyroxine 75 mcg tablet 1 tab PO DAILY lorazepam 0.5 mg tablet 1 tab PO BID PRN (Reason: anxiety) cholecalciferol (vitamin D3) 25 mcg (1,000 unit) tablet 25 mcg PO DAILY Qty: 90 8RF multivitamin [Daily-Oswaldo] Tablet 1 tab PO DAILY Qty: 30 0RF Referrals: Smooth Gray MD [Primary Care Provider] - 2 days Interventions: ED Discharge Assessment Last Done: 02/16/22 13:38 Discharge Date/Time: 02/16/22 13:40
[2022-02-16 15:19] LABS: Appearance Urine CLEAR; Color Urine STRAW; Glucose Urine UA NEG (NEG); Leukocyte Esterase Urine NEG (NEG); Nitrite Urine NEG (NEG); PH 6.5 (5.0-8.0); Urine Blood NEG (NEG); Urine Ketones NEG (NEG); Urine Protein NEG (NEG-TRACE)
[2022-02-21 09:36] LABS: Lamotrigine Lamictal <0.5 mcg/mL (4.0-18.0)
== END 2022-02-16 13:40 | disposition home or self-care (01) ==
PROVIDERS: Physician Assistant Medical; Emergency Provider Emergency Medicine; PCP Internal Medicine
DX: F33.1 Major depressive disorder, recurrent, moderate (principal); F41.1 Generalized anxiety disorder; F43.0 Acute stress reaction; F17.210 Nicotine dependence, cigarettes, uncomplicated; Z20.822 Contact with and (suspected) exposure to COVID-19; Z79.899 Other long term (current) drug therapy; Z71.6 Tobacco abuse counseling
CPT/HCPCS: 36415; 80053; 80175; 80178; 80307; 81003; 83735; 84439; 84443; 85025; 87635; 93005; 99283

== ENCOUNTER 2022-02-23 08:04 | Emergency (ER) | payer OTHER, SELFPAY ==
[2022-02-23 08:22] VITALS: BP 100/64; PULSE 81; RESP 19; TEMP 36.6; O2SAT 98; BMI 19.6
--- NOTE | 2022-02-23 09:14 | ED_ITS ---
HPI - General Adult General Chief complaint: Psychiatric Symptoms Stated complaint: Crisis Time Seen by Provider: 02/23/22 09:13 Source: patient Mode of arrival: ambulatory Limitations: no limitations History of Present Illness HPI narrative: Patient is a 61 year old female presenting to the emergency department today with suicidal ideation and depression. Patient states that she has been having thoughts of hurting herself lately. Patient denies any dizziness, lightheadedness, abdominal pain, nausea, vomiting, fever, chills, blurry vision, double vision, loss of vision, chest pain, difficulty breathing, shortness of breath, back pain, night sweats, pain with urination, increased urinary frequency, increased urinary urgency, blood in her urine or stool, syncope or a near syncopal episode, recent trauma or falls, bowel incontinence, bladder incontinence, bowel retention, bladder retention, or any other complaints at this time. Onset (ago): day(s) Severity: mild Severity scale (1-10): 1 Relieving factors: none Exacerbating factors: none Associated symptoms: denies other symptoms Treatments prior to arrival: none Related Data Home Medications Medication Instructions Recorded Confirmed pramipexole 0.5 mg tablet 1 tab PO BID 10/04/21 02/12/22 thiamine HCl (vitamin B1) 100 mg 1 tab PO DAILY 10/30/21 02/12/22 tablet (Vitamin B-1) zolpidem 5 mg tablet 1 tab PO BEDTIME PRN insomnia 10/30/21 02/12/22 levothyroxine 75 mcg tablet 1 tab PO DAILY 11/22/21 02/12/22 lorazepam 0.5 mg tablet 1 tab PO BID PRN anxiety 11/22/21 02/12/22 Previous Rx's Medication Instructions Recorded atorvastatin 20 mg tablet 20 mg PO DAILY #90 tabs 11/25/21 cholecalciferol (vitamin D3) 25 25 mcg PO DAILY #90 tabs 02/12/22 mcg (1,000 unit) tablet multivitamin (Daily-Oswaldo) 1 tab PO DAILY #30 tabs 02/12/22 albuterol sulfate 90 mcg/actuation 2 puff inhalation Q4-6H PRN 02/16/22 aerosol inhaler shortness of breath or wheezing 30 days #6.7 grams lithium carbonate 150 mg capsule 150 mg PO DAILY #5 caps 02/23/22 Allergies Allergy/AdvReac Type Severity Reaction Status Date / Time olanzapine [From ZYPREXA] AdvReac Intermediate RLS Verified 02/12/22 13:08 symptoms atypical antipsychotics AdvReac Severe This class Uncoded 11/25/21 21:58 appears to potentiate RLS/Akathesia Review of Systems Constitutional: Constitutional: Reports no additional constitutional complaints, Denies chills, Denies fever(s) and Denies night sweats Eyes: Eyes: Reports no additional eye complaints, Denies blurry vision, Denies change in vision, Denies diplopia, Denies eye discharge, Denies loss of vision and Denies eye pain ENT: Denies dizziness Cardiovascular: Cardiovascular: Reports no additional cardiovascular complaints, Denies chest pain, Denies lightheadedness, Denies Loss of Consciousness and Denies dyspnea Respiratory: Respiratory: Reports no additional respiratory complaints and Denies dyspnea Gastrointestinal: Gastrointestinal: Reports no additional gastrointestinal complaints, Denies abdominal pain, Denies melena, Denies hematochezia, Denies change in bowel habits and Denies change in stool character Genitourinary: Genitourinary: Denies hematuria, Denies urinary frequency, Denies dysuria, Denies urinary incontinence, Denies urinary hesitancy and Denies urinary urgency Musculoskeletal: Musculoskeletal: Reports no additional musculoskeletal complaints, Denies numbness and Denies tingling Neurologic: Denies dizziness, Denies loss of vision, Denies numbness and Denies tingling Psychiatric: Psychiatric: Reports no additional psychiatric complaints and Reports suicidal ideation Endocrine: Endocrine: Reports no additional endocrine complaints Hematologic/Lymphatic: Hematologic/Lymphatic: Reports no additional hematologic/lymphatic complaints Allergic/Immunologic: Allergic/Immunologic: Reports no additional allergic/immunologic complaints [facility] Past Medical History Attestation statement: The following information was validated with the patient. Source: old records reviewed Medical History Benzodiazepine abuse Bipolar II disorder Cannabis use disorder, moderate, dependence COPD (chronic obstructive pulmonary disease) HLD (hyperlipidemia) Hypothyroidism Osteoporosis RLS (restless legs syndrome) Surgical History H/O: hysterectomy Family History Family History Mother No problems noted. Father No problems noted. Son Substance use disorder Social History Social History Household Members: Spouse Household Members Other:: adult son Housing: House Do you presently have visiting nurse or other home services: No Alcohol intake: never Patient Tobacco Use Status: Current someday Tobacco user Tobacco use type: Cigarette Cigarettes Per Day: 3 Years Smoked: 40 e-Cigarette/Vaping Use: Currently Using Second Hand Smoke Exposure: Yes Substance Use Type: Marijuana service: No Current occupational status: employed Sexual orientation: Straight/Heterosexual Cognitive needs: No Hearing needs: No Vision needs: No Physical Exam ED Vital Signs: Vital Signs - 24 hr 02/23/22 08:22 Temperature 98 F Pulse Rate 81 Respiratory Rate 19 Blood Pressure 100/64 Pulse Oximetry 98 BMI result Body Mass Index 19.6 Const General: cooperative, no acute distress, alert and awake Nutritional Appearance: well nourished Orientation/consciousness: patient oriented x3 Limitations: no limitations HENMT Head: Yes normal to inspection and Yes atraumatic Ears: hearing grossly normal bilaterally and external ears normal General nose exam: Normal external nose present, no nasal discharge noted and no epistaxis Face and sinus: Yes normal facial exam, No abrasion and No laceration Mouth: Normal oral and palatal mucosa present, no drooling and no muffled voice Eyes General: appearance normal, both eyes and all related structures Periorbital: periorbital findings normal Eyelids: Yes eyelids normal Conjunctivae: conjunctivae normal Pupils: Equal, round and reactive pupils present EOM: EOMs intact bilaterally Neck Neck: Yes normal visual inspection, Yes full ROM and Yes no lymphadenopathy Chest Chest palpation & inspection: normal inspection of the chest Resp Effort & Inspection: normal respiratory effort and able to speak in complete sentences Auscultation: clear to auscultation bilaterally Cardio Rate: regular rate Rhythm: regular rhythm GI Inspection: Yes normal to inspection Neuro General: patient oriented x3 and moves all extremities Cranial nerves: Yes Equal, round and reactive pupils present Cognition (Neuro): normal cognition Motor exam (neuro): 5/5 motor strength present throughout Sensory Exam: Normal double simultaneous stimulation for sensation Coordination: [id number] test normal Extrem General: Yes normal to inspection, Yes full ROM and Yes capillary refill normal Psych Appearance: grossly normal Mental Status: mental status grossly normal Affect: normal affect Attitude: cooperative Thought process: Normal thought process present Thought content: Normal thought content present Insight: Good insight present (Psych) Medical Decision Making MDM Narrative Medical decision making narrative: Patient is a 61 year old female presenting to the emergency department today with suicidal thoughts. Patient's physical exam was unremarkable. Patient's urine showed no acute process. I explained my physical exam findings as well as all test results to the patient. I answered all questions asked by the patient. BHN recommended the patient be discharged to a partial program. I stressed the importance of the patient taking her medication as prescribed. I stressed the importance of the patient following up with her primary care provider. I stressed the importance of the patient returning to the emergency department immediately if her symptoms were to worsen or if she were to develop any dizziness, shortness of breath, difficulty breathing, chest pain, blurry vision, loss of vision, nausea, vomiting, abdominal pain, fever, chills, back pain, or any other complaints. Patient verbalized agreement and understanding with this treatment plan and discharge. Differential Diagnosis Differential Diagnosis: suicidal, depression Medical Records Medical records reviewed: Yes I reviewed the patient's medical records. Lab Data Lab results reviewed: Yes I reviewed the patient's lab results. Labs: Lab Results 02/23/22 02/23/22 Range/Units 08:58 09:01 Urine Opiates Screen Not Detected (Not Detect) Urine Fentanyl Screen Not Detected (Not Detect) Ur Barbiturates Screen Not Detected (Not Detect) Ur Phencyclidine Scrn Not Detected (Not Detect) Ur Amphetamines Screen Not Detected (Not Detect) U Benzodiazepines Scrn Not Detected (Not Detect) Urine Cocaine Screen Not Detected (Not Detect) U Marijuana (THC) Screen POSITIVE H (Not Detect) COVID-19 ([facility]) Negative (Negative) COVID-19 Clin Com See Note Discharge Plan Discharge Clinical Impression: Depression Patient Disposition: Home, Self-Care Instructions: Depression (ED) Additional Instructions: Follow up with your primary care provider. Return to the emergency department immediately if your symptoms worsen or if you develop any dizziness, shortness of breath, difficulty breathing, chest pain, blurry vision, loss of vision, nausea, vomiting, abdominal pain, fever, chills, back pain, or any other complaints. Prescriptions: New lithium carbonate 150 mg capsule 150 mg PO DAILY Qty: 5 0RF No Action atorvastatin 20 mg tablet 20 mg PO DAILY Qty: 90 8RF albuterol sulfate 90 mcg/actuation HFA aerosol inhaler 2 puff inhalation Q4-6H PRN (Reason: shortness of breath or wheezing) 30 Days Qty: 6.7 0RF pramipexole 0.5 mg tablet 1 tab PO BID thiamine HCl (vitamin B1) [Vitamin B-1] 100 mg tablet 1 tab PO DAILY zolpidem 5 mg tablet 1 tab PO BEDTIME PRN (Reason: insomnia) levothyroxine 75 mcg tablet 1 tab PO DAILY lorazepam 0.5 mg tablet 1 tab PO BID PRN (Reason: anxiety) cholecalciferol (vitamin D3) 25 mcg (1,000 unit) tablet 25 mcg PO DAILY Qty: 90 8RF multivitamin [Daily-Oswaldo] Tablet 1 tab PO DAILY Qty: 30 0RF Referrals: Smooth Gray MD [Primary Care Provider] - Interventions: ED Discharge Assessment Last Done: 02/23/22 13:45 Discharge Date/Time: 02/23/22 13:46 Print Language: Gambian
[2022-02-23 09:30] LABS: COVID-19 Test Negative (Negative)
[2022-02-23 09:49] LABS: Amphetamine Screen Urine Not Detected (Not Detect); Barbiturates, Urine Not Detected (Not Detect); Benzodiazepines Screen Urine Not Detected (Not Detect); Cannabinoid Screen Urine POSITIVE (Not Detect); Cocaine Screen Urine Not Detected (Not Detect); Fentanyl, urine Not Detected (Not Detect); Opiate Screen Urine Not Detected (Not Detect); Phencyclidine Screen Urine Not Detected (Not Detect)
--- NOTE | 2022-02-23 12:35 | P.CNPS_ITS ---
History of Present Illness Date of Service: 02/25/2022 Chief Complaint: Crisis Reason for Consult: depressed Requesting physician: Jennifer Portillo Discussed with referring provider: Yes Sources of Information: patient interviewed, chart reviewed and crisis/core team assessment reviewed HPI Narrative: Mrs. Beebe is a 61 year-old woman with hx of Bipolar type 2, borderline traits who self presented to [facility] ED reporting increased depression, passive suicidal ideation. Pt was recently discharged from [facility], but has not followed up with referrals to connect with outpatient providers. Utox was negative. Pt reports feeling depressed, anxious, poor sleep. She denies suicidal ideation but worries that these thoughts are more frequent and intense. Pt names multiple barries to do [facility] program including not being tech savvy, but her admission today at [facility] is in person. Pt reports she felt lithium was very helpful and it was discontinued recently while being admitted to [facility]. She denies VH/AH. No signs of delusional or psychosis noted. She reports appetite and sleep are fairly good. Past Psychiatric History: IP: Several, most recent 09/2021- 1998, 2016, 2019, several admits to [place] [facility] program OP: [facility], [place] Lam is pt's medication provider Neuropsych testing referral at [employer] is pending Trials: Several, hx of TMS with [facility] Review of Systems Constitutional: Reports no additional constitutional complaints, Denies chills, Denies fever(s) and Denies night sweats Eyes: Reports no additional eye complaints, Denies blurry vision, Denies change in vision, Denies diplopia, Denies eye discharge, Denies loss of vision and Denies eye pain Denies dizziness Cardiovascular: Reports no additional cardiovascular complaints, Denies chest pain, Denies lightheadedness, Denies Loss of Consciousness and Denies dyspnea Respiratory: Reports no additional respiratory complaints and Denies dyspnea Gastrointestinal: Reports no additional gastrointestinal complaints, Denies abdominal pain, Denies melena, Denies hematochezia, Denies change in bowel habits and Denies change in stool character Musculoskeletal: Reports no additional musculoskeletal complaints, Denies numbness and Denies tingling Denies dizziness, Denies loss of vision, Denies numbness and Denies tingling Psychiatric: Reports no additional psychiatric complaints and Reports suicidal ideation Endocrine: Reports no additional endocrine complaints Hematologic/Lymphatic: Reports no additional hematologic/lymphatic complaints Allergic/Immunologic: Reports no additional allergic/immunologic complaints [facility] Medical History Benzodiazepine abuse Bipolar II disorder Cannabis use disorder, moderate, dependence COPD (chronic obstructive pulmonary disease) Fibromyalgia HLD (hyperlipidemia) Hypothyroidism Osteoporosis RLS (restless legs syndrome) Surgical History H/O: hysterectomy Family History: Mental Health and addiction Social History: Lives with Has 1 son who is engaged; other son 5 years ago of an opiate OD Mother May 2021 which is been especially difficult Patient has worked most of her life; she enjoys work however she finds that she takes on too much which is destabilizing for her. Trauma History: Affirms Diagnostics Vital Signs (24Hr): Vital Signs - 24 hr 02/23/22 08:22 Temperature 98 F Pulse Rate 81 Respiratory Rate 19 Blood Pressure 100/64 Pulse Oximetry 98 BMI result Body Mass Index 19.6 Labs Labs: Laboratory Results - last 48 hr 02/23/22 02/23/22 08:58 09:01 Urine Opiates Screen Not Detected Urine Fentanyl Screen Not Detected Ur Barbiturates Screen Not Detected Ur Phencyclidine Scrn Not Detected Ur Amphetamines Screen Not Detected U Benzodiazepines Scrn Not Detected Urine Cocaine Screen Not Detected U Marijuana (THC) Screen POSITIVE H COVID-19 (WENDY) Negative COVID-19 Clin Com See Note Mental Status Exam Mental Status Exam Narrative: Patient Appearance:thin, casually groomed, in NAD Patient Orientation:?Person, Place, Time and Situation Level of Consciousness:?Alert Patient Behavior:?Appropriate, Talkative, Cooperative and Good Eye Contact Mood Description:? depressed Affect Description:?blunted, dysphoric Patient Cognition Impaired:?No Ability to Follow Directions:?Good Speech Pattern:?Spontaneous Speech Memory Description:?Intact Hallucinations:?None Delusions:?Not Present Thought Process:?Intact and Goal Oriented Thought Content:?feeling helpless/hopeless SI: none HI: none Depressive Symptoms:?Insomnia and Difficulty Sleeping Judgment:poor Medications Medications Current Medications [place] Carbonate ([place] Carbonate 300 Mg Tablet) 150 mg PO DAILY LORI Allergies Allergies Allergy/AdvReac Type Severity Reaction Status Date / Time olanzapine [From ZYPREXA] AdvReac Intermediate RLS Verified 02/12/22 13:08 symptoms atypical antipsychotics AdvReac Severe This class Uncoded 11/25/21 21:58 appears to potentiate RLS/Akathesia Assessment & Plan Assessment & Plan (1) Bipolar II disorder: Status: Acute Code(s): F31.81 - Bipolar II disorder Plan Mrs. Beebe is a 61 year-old woman with hx of Bipolar type 2, Borderline trait who self presented to [facility] ED reporting increase depressed mood, passive SI (but this is chronic), initially declining [facility] level of care, insisting inpatient level of care. However, pt denies any plan or intent to hurt herself. She has also decline reconnecting with outpatient providers, which was explained to pt is kraft for her to better manage chronic mental health. She agreed to go to [facility] We discussed risks, benefits and alternative treatment options. She asked to be restarted on low dose lithium 150mg po daily. We discussed her decreased creatinine clearance, effects of lithium on thyroid, renal function. PLAN 1. No imminent safety concern to require ILOC. Pt will go to PHP intake today. 2. RX of lithium 150mg po daily x 7 days, pt to follow up with providers from PHP program at [facility]. I spent __25____ minutes with the patient and/or on the patient floor today, greater than?50% of which was spent counseling/coordinating care.
[2022-02-23] MEDS: Lithium Carbonate 300 MG TABLET 150 MG PO (13:20)
--- NOTE | 2022-02-23 13:35 | MHC.CARE ---
Patient self-presented [place] [facility] today with reported increased depression and anxiety with suicidal ideation. She is well known to [facility] and the CARE Team through several previous evaluations, has been admitted to the psychiatric unit and attended [facility]. Patient was alert and oriented, tearful at times, minimal eye contact, was anxious, she was clean and well groomed, appeared tired and older than her stated age. There was no evidence of leah or psychosis, she reported that her sleep and appetite were fair. Patient reported that she has been struggling without medication since she was taken off of Slana and Lamictal while at [facility] in November, started on Cymbalta but discontinued once home because she felt it disrupted her sleep and made her manic. At this time, patient is not on any medication and does not have any outpatient providers and has admittedly has not been able to sustain outpatient treatment for a variety of reasons. Stated that her and son researched services and found [facility] (residential treatment for co-occurring disorders) and patient was interested but said they have a 6 month wait list, denied drug use. She also has been in contact with [facility] and waiting for a call back for therapy. Patient has an intake scheduled at [facility] today at 2:30 but dismissed the program because it is via zoom and prefers in person. Although patient does present as quite distressed and goal directed to be admitted to to treatment, she denied suicidal ideation, plan or intention and is not in imminent risk of self-harm, her insight is determined as poor, judgment fair. Patient met with ED psychiatric provider and agreed to restart Slana on an outpatient basis and attend the [facility] intake today and give the program a chance. They are familiar with her and can provide day to day support and structure that she needs while resuming medication. Left a message to speak with patient?s , has not called back at this time. Reached out to [facility] and inquired about patient getting back into treatment there after being recently discharged from that service. Disposition discussed with ED providers ELISE Roy, CAMACHO Menchaca and supervisor capacitor processing Camila Montejo DOLLYMAN. CARE Team will call patient within 24-48 hrs to follow up, she has contact information for [facility] and [facility] [employer] [facility].
--- NOTE | 2022-02-24 16:25 | MHC.CARE ---
CARE Team attempts to complete check in call x2 @[phone] and [phone], no answer and no option to leave a message.
== END 2022-02-23 13:46 | disposition home or self-care (01) ==
PROVIDERS: Physician Assistant Medical; Emergency Provider Emergency Medicine; PCP Internal Medicine
DX: F33.1 Major depressive disorder, recurrent, moderate (principal); R45.851 Suicidal ideations; F17.210 Nicotine dependence, cigarettes, uncomplicated; Z20.822 Contact with and (suspected) exposure to COVID-19; Z71.6 Tobacco abuse counseling; Z79.899 Other long term (current) drug therapy
CPT/HCPCS: 80307; 87635; 99282; 99284

== ENCOUNTER 2022-02-26 10:45 | Outpatient (RCR) | payer OTHER, MEDICARE, MEDICAID, SELFPAY ==
[2022-02-24 12:31] VITALS: BMI 19.0
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
--- NOTE | 2022-02-26 10:54 | PC.NURSE ---
I spoke with the client this morning. She is not able to attend today because her left without giving her the password for the computer. She states that she finds the program helpful and will be in on Tuesday. She will be safe over the weekend and may spend time with her sister today.
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
--- NOTE | 2022-03-02 14:19 | PC.NURSE ---
Addendum entered by Meli Denise RN 03/02/22 14:55: [facility] prescriber Delicia Greenberg NP is aware of the aforementioned information. Original Note: Per records patient spent the night in the emergency room and was evaluated by crisis this morning. Patient was discharged from the emergency room with disposition to [facility] Living Room program. Called patient to f/u however her mail box was full thus unable to leave a message. Will continue to try and get a hold of patient to see if she would like to try and continue the program. Patient however was having difficulty attending the program as her would not give her the password to his email account thus she was not able to attend groups. Patient reports her is controlling. [facility] clinician Cheri. Edwards is aware.
--- NOTE | 2022-03-02 15:11 | PC.NURSE ---
I attempted to call the client. There was no answer and I could not leave a message
--- NOTE | 2022-03-03 08:42 | PC.NURSE ---
I called patient this morning but was not able to get a hold of her. Patient was in the [facility] ER yesterday and crisis referred her to [facility] Living Room which has overnight accommodations. Patient is discharged from the program at this time. [facility] staff is aware including Livia Ortiz and Mimi Ye.
== END 2022-03-01 23:59 | disposition home or self-care (01) ==
LOC: HO.PHPA 10:45
PROVIDERS: Visit Provider Psychiatry & Neurology Psychiatry
DX: F31.81 Bipolar II disorder (principal); F90.9 Attention-deficit hyperactivity disorder, unspecified type; F13.20 Sedative, hypnotic or anxiolytic dependence, uncomplicated; Z79.899 Other long term (current) drug therapy
CPT/HCPCS: 90853

== ENCOUNTER 2022-03-01 20:04 | Emergency (ER) | payer OTHER, MEDICARE, MEDICAID, SELFPAY ==
[2022-03-01 20:06] VITALS: BP 125/77; PULSE 81; RESP 16; TEMP 36.4; O2SAT 98; BMI 18.3
[2022-03-01 20:30] VITALS: BP 146/70; PULSE 85; O2SAT 100; BMI 50.3
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
[2022-03-01 21:12] LABS: MANUAL DIFF FLAG NO
[2022-03-01 21:13] LABS: Basophils Absolute Auto 0.1 X10*3/uL (0.0-0.2); Basophils Percent Auto 0.5 % (0-2); Eosinophils Absolute Auto 0.1 X10*3/uL (0.0-0.4); Eosinophils Percent Auto 1.1 % (0-4); Hematocrit 40.6 % (37.0-47.0); Hemoglobin 13.3 g/dl (12.0-16.0); Imm Gran Abs Auto 0.02 X10*3/uL (0.00-0.03); Imm Gran Pct Auto 0.2 % (0.0-0.4); Lymphocytes Absolute Auto 1.7 X10*3/uL (1.2-4.9); Lymphocytes Percent Auto 16.4 % (20-40); Mean Corpuscular HGB Conc 32.8 g/dl (31.0-35.0); Mean Corpuscular Hemoglobin 31.4 pg (27.0-33.0); Mean Corpuscular Volume 95.8 fL (80.0-98.0); Mean Platelet Volume 9.3 fL (9.4-12.3); Monocytes Absolute Auto 0.6 X10*3/uL (0.1-1.2); Monocytes Percent Auto 5.7 % (2-11); Neutrophils Percent Auto 76.1 % (45-73); Platelet Count 437 X10*3/uL (160-400); Red Blood Count 4.24 X10*6/uL (4.20-5.50); Red Cell Distribution Width 13.6 % (11.0-16.0); White Blood Count 10.5 X10*3/uL (4.8-10.8)
[2022-03-01 21:25] LABS: COVID-19 Test Negative (Negative); IDNOW Serial# 16C4AD1C
[2022-03-01 22:08] LABS: Appearance Urine CLEAR; Color Urine YELLOW; Glucose Urine UA NEG (NEG); Leukocyte Esterase Urine 1+ (NEG); Nitrite Urine NEG (NEG); PH 6.5 (5.0-8.0); Specific Gravity - Urine 1.015 (1.005-1.025); UACC Culture Trigger YES; Urine Blood NEG (NEG); Urine Ketones NEG (NEG); Urine Protein NEG (NEG-TRACE)
[2022-03-01 22:13] LABS: Lithium < 0.04 mmol/L (0.60-1.20)
[2022-03-01 22:26] LABS: Bacteria Urine 4+ /LPF; Mucus Urine 1+ /LPF; Squamous Epithelial Cell Urine 2+ /LPF
[2022-03-01 22:53] LABS: Alanine Aminotransferase 10 U/L (0-31); Albumin Level 4.5 g/dL (3.5-5.0); Alkaline Phosphatase 108 U/L (39-117); Anion Gap 12 (12-20); Aspartate Amino Transferase 13 U/L (5-31); Bilirubin Direct < 0.2 mg/dL (0.0-0.5); Bilirubin Total 0.2 mg/dL (0.0-1.0); Blood Urea Nitrogen 8 mg/dL (9-16); Carbon Dioxide 24 mmol/L (22-29); Chloride 103 mmol/L (96-108); Creatinine Clr Calc Pharmacy 106.3; Estimated Glomerular Filt Rate > 60; Ethanol < 10 mg/dL; Glucose Random 122 mg/dL (60-115); Potassium 4.5 mmol/L (3.3-5.1); Sodium 134 mmol/L (135-145); Total Protein 7.4 g/dL (6.5-8.0)
[2022-03-02 00:30] VITALS: BP 121/53; PULSE 65; RESP 15; TEMP 36.4; O2SAT 96
[2022-03-02 02:47] LABS: Amphetamine Screen Urine Not Detected (Not Detect); Barbiturates, Urine Not Detected (Not Detect); Benzodiazepines Screen Urine Not Detected (Not Detect); Cannabinoid Screen Urine POSITIVE (Not Detect); Cocaine Screen Urine Not Detected (Not Detect); Fentanyl, urine Not Detected (Not Detect); Opiate Screen Urine Not Detected (Not Detect); Phencyclidine Screen Urine Not Detected (Not Detect)
--- NOTE | 2022-03-02 07:00 | PC.NURSE ---
Patient slept through the night, no distress observed/reported, behavior non concerning, BHN assessed the patient, disposition pending, OREN F/U in the morning, VSS, med rec completed/pending provider's approval, will continue to monitor.
--- NOTE | 2022-03-02 07:21 | PC.NURSE ---
patient appears to remain asleep at present respirations are even and unlabored patient appears in no distress
[2022-03-02 07:50] VITALS: BP 138/80; PULSE 76; RESP 12; TEMP 36.1; O2SAT 99
== END 2022-03-02 10:13 | disposition home or self-care (01) ==
PROVIDERS: Emergency Provider Emergency Medicine; PCP Internal Medicine
DX: F33.1 Major depressive disorder, recurrent, moderate (principal); R45.851 Suicidal ideations; F17.210 Nicotine dependence, cigarettes, uncomplicated; Z20.822 Contact with and (suspected) exposure to COVID-19; Z71.6 Tobacco abuse counseling; Z79.899 Other long term (current) drug therapy; Z63.0 Problems in relationship with spouse or partner
CPT/HCPCS: 36415; 80048; 80076; 80178; 80307; 81001; 81003; 82077; 83735; 85025; 87086; 87635; 99284

== ENCOUNTER → 2022-03-31 11:17 | Outpatient (BNVA) | payer OTHER, MEDICAID, SELFPAY | PROVIDERS: PCP Internal Medicine; Visit Provider Internal Medicine | DX: J44.9 Chronic obstructive pulmonary disease, unspecified (principal); F17.210 Nicotine dependence, cigarettes, uncomplicated | CPT/HCPCS: 94010; 99212 ==

== ENCOUNTER 2022-06-14 08:50 | Emergency (ER) | payer OTHER, MEDICAID, SELFPAY ==
[2022-06-14 08:53] VITALS: BP 159/80; PULSE 91; RESP 19; TEMP 36.6; O2SAT 98; BMI 18.6
--- NOTE | 2022-06-14 11:53 | PC.NURSE ---
Not present in WR when called for reassessment x 3.
--- OUTSIDE RECORDS SUMMARY | 2022-06-14 12:08 | XMS_ITS | Continuity of Care Document ---
:1960 Author Organization [facility] Address [address] [place] [id number]- Care Team Providers Name Role Phone Smooth Gray MD Primary Care Physician Encounter [facility] Date(s): 05/25/22 - 05/28/[address] [address]- Discharge Disposition: Transfer to [facility] Facility Attending Physician: Janet Wei MD Admitting Physician: Janet Wei MD Referring Physician: Not on Staff, Referring MD Allergies, Adverse Reactions, Alerts No Known Allergies Medications atorvastatin 20 mg oral tablet 1 tablet = 20 mg, By Mouth, Daily, # 30 tablet, 0 Refills, Maintenance, Tablet Start Date: 01/04/17 Status: Orderedbenztropine 1 mg oral tablet 1 mg, 1, tablet, By Mouth, 2 times a day, # 60 tablet, Refills 0, Tot. Refills 0, Maintenance, 01/06/17 8:51:30, Route to Pharmacy Electronically, [id number], [facility] Start Date: 01/06/17 Status: OrderedFlovent HFA 220 mcg/inh inhalation aerosol 2 puffs, Inhalation, 2 times a day, # 12 Gm, 0 Refills, Maintenance, 01/04/17 0:19:39, Aerosol Start Date: 01/04/17 Status: OrderedhydrOXYzine pamoate 25 mg oral capsule 1 capsule = 25 mg, By Mouth, 2 times a day, PRN Anxiety, # 30 tablet, 0 Refills, Maintenance, 01/06/17 8:51:53, Capsule Start Date: 01/06/17 Status: Orderedolanzapine 10 mg oral tablet 10 mg, 1, tablet, By Mouth, Daily at bedtime, # 30 tablet, Refills 0, Tot. Refills 0, Maintenance, 01/06/17 8:51:02, Route to Pharmacy Electronically, [id number], [facility] Start Date: 01/06/17 Status: Orderedolanzapine 2.5 mg oral tablet 2.5 mg, By Mouth, 2 times a day, PRN, # 30 tablet, Refills 0, Tot. Refills 0, Maintenance, Agitation Anxiety, 01/06/17 8:51:09, Route to Pharmacy Electronically, [id number],[facility] Start Date: 01/06/17 Status: Orderedolanzapine 5 mg oral tablet 5 mg, 1, tablet, By Mouth, Daily, # 30 tablet, Refills 0, Tot. Refills 0, Maintenance, 01/06/17 8:51:04, Route to Pharmacy Electronically, [id number], [facility] Start Date: 01/06/17 Status: OrderedPROzac 20 mg oral capsule 20 mg, 1, capsule, By Mouth, Daily in AM, # 30 capsule, Refills 0, Tot. Refills 0, Maintenance, 01/06/17 8:51:32, Route to Pharmacy Electronically, [id number], [facility] Start Date: 01/06/17 Status: OrderedtraZODone 100 mg oral tablet 100 mg, 1, tablet, By Mouth, Daily at bedtime, # 30 tablet, Refills 0, Tot. Refills 0, Maintenance, 01/06/17 8:51:21, Route to Pharmacy Electronically, [id number], [facility] Start Date: 01/06/17 Status: OrderedVentolin 90 mcg Inhaler 2, puffs, Inhalation, Every 4 hours, Refills 0, Maintenance, 01/04/17 0:19:08, Inhaler Start Date: 01/04/17 Status: Ordered Vital Signs Most recent to oldest 1 2 3 [Reference Range]: Oxygen Saturation [94-100 99 % 97 % 97 % %] (05/28/22 11:45 AM) (05/28/22 6:09 AM) (05/27/22 9:28 PM) Pulse Rate [55-90 bpm] 89 bpm 94 bpm 99 bpm (05/28/22 11:45 AM) *H* *H* (05/28/22 6:09 AM) (05/27/22 9:2 8 PM) Blood Pressure 107/84 mm Hg 98/64 mm Hg 93/56 mm Hg [90-138/55-84 mm Hg] (05/28/22 11:45 AM) (05/28/22 6:09 AM) ( 9:28 PM) Respiratory Rate [16-30 16 br/min 18 br/min 18 br/mi n br/min] (05/28/22 11:45 AM) (05/28/22 6:09 AM) (05/27/22 9:28 PM) Temperature [96.8-100.4 98.2 DegF 97.8 DegF 98.5 Deg F DegF] (05/28/22 6:09 AM) (05/27/22 9:28 PM) (05/27/22 3:32 PM) Mode of Delivery (Oxygen) Room air Room air Room a ir (05/28/22 11:45 AM) (05/28/22 6:09 AM) (05/27/22 9:28 PM) Blood pressure sites Arm, right Arm, right Arm, right (05/28/22 11:45 AM) (05/28/22 6:09 AM) (05/27/22 9:28 PM) Temperature Route Oral Oral Oral (05/28/22 11:45 AM) (05/28/22 6:09 AM) (05/27/22 9:28 PM) Patient Care team information PersonnelName: Isaac MORALES, Smooth Tejada Address: Address: [address], [place] [address]
--- OUTSIDE RECORDS SUMMARY | 2022-06-14 12:08 | XMS_ITS | Continuity of Care Document ---
:1960 Author Organization [facility] Address [address] [place] [id number]- Care Team Providers Name Role Phone Annita, Zayra Primary Care Phys[id number] Date(s): 03/20/22 - 03/20/[address] [address]- Discharge Disposition: A-D/C Walkout Attending Physician: Not on Staff, Attending MD Admitting Physician: Not on Staff, Admitting MD Referring Physician: Not on Staff, Referring [...] Maintenance, 01/06/17 8:51:30, Route to Pharmacy Electronically, [id number], [facility] Start Date: [...] Maintenance, 01/06/17 8:51:02, Route to Pharmacy Electronically, [id number], [facility] Start Date: 01/06/17 Status: Orderedolanzapine 2.5 mg oral tablet 2.5 mg, By Mouth, 2 times a day, PRN, # 30 tablet, Refills 0, Tot. Refills 0, Maintenance, Agitation Anxiety, 01/06/17 8:51:09, Route to Pharmacy Electronically, [id number],[facility] Start Date: 01/06/17 Status: Orderedolanzapine 5 mg oral tablet 5 mg, 1, tablet, By Mouth, Daily, # 30 tablet, Refills 0, Tot. Refills 0, Maintenance, 01/06/17 8:51:04, Route to Pharmacy Electronically, [id number], [facility] Start Date: 01/06/17 Status: OrderedPROzac 20 mg oral capsule 20 mg, 1, capsule, By Mouth, Daily in AM, # 30 capsule, Refills 0, Tot. Refills 0, Maintenance, 01/06/17 8:51:32, Route to Pharmacy Electronically, [id number], [facility] Start Date: 01/06/17 Status: OrderedtraZODone 100 mg oral tablet 100 mg, 1, tablet, By Mouth, Daily at bedtime, # 30 tablet, Refills 0, Tot. Refills 0, Maintenance, 01/06/17 8:51:21, Route to Pharmacy Electronically, [id number], [facility] Start Date: 01/06/17 Status: OrderedVentolin 90 mcg Inhaler 2, puffs, Inhalation, Every 4 hours, Refills 0, Maintenance, 01/04/17 0:19:08, Inhaler Start Date: 01/04/17 Status: Ordered Vital Signs Most recent to oldest [Reference Range]: 1 Oxygen Saturation [94-100 %] 96 % (03/20/22 5:23 PM) Pulse Rate [55-90 bpm] 80 bpm (03/20/22 5:23 PM) Blood Pressure [90-138/55-84 mm Hg] 103/64 mm Hg (03/20/22 5:23 PM) Respiratory Rate [16-30 br/min] 20 br/min (03/20/22:23 PM) Temperature [96.8-100.4 DegF] 97.9 DegF (03/20/22:23 PM) Mode of Delivery (Oxygen) Room air (03/20/22 5:23 PM) Blood pressure sites Arm, right (03/20/22 5:23 PM) Temperature Route Oral (03/20/22 5:23 PM)
== END 2022-06-14 12:07 | disposition left against medical advice (07) ==
PROVIDERS: Emergency Provider Emergency Medicine; PCP Internal Medicine
DX: R26.81 Unsteadiness on feet (principal); R79.89 Other specified abnormal findings of blood chemistry
CPT/HCPCS: 99281

== ENCOUNTER 2022-06-16 15:02 | Outpatient (REF) | payer OTHER, MEDICAID, SELFPAY ==
[2022-06-16 16:37] LABS: Lithium 0.04 mmol/L (0.60-1.20)
[2022-06-16 17:04] LABS: Thyroid Stimulating Hormone 7.84 uIU/mL (0.32-4.0)
== END 2022-06-16 15:03 | disposition home or self-care (01) ==
LOC: HO.HMGCLDS 15:02
PROVIDERS: PCP Nurse Practitioner Family; Visit Provider Internal Medicine
DX: E03.9 Hypothyroidism, unspecified (principal)
CPT/HCPCS: 36415; 80178; 84443

== ENCOUNTER 2022-06-24 09:30 | Outpatient (RCR) | payer OTHER, SELFPAY ==
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
[2022-06-23 09:54] VITALS: BP 120/60; PULSE 76; TEMP 36.1
[2022-06-23 09:55] VITALS: BMI 19.2
--- NOTE | 2022-06-23 09:56 | PC.ADMIT ---
Patient is a 61 year old female who was referred to [facility] by Rosie Pretty where patient was admitted for behavioral health stabilization of patients depressive sxs. Patient reportedly texted her she wanted to drive off a bridge. Patient has a diagnosis of Bipolar d/o and reportedly was told she was misdiagnosed and did not need to take [place]. See [facility] integrative assessment for further information. Patient presents with depressed mood somewhat pressured speech. Patient denied SI. Patient reports she is taking her medications as prescribed including [place]. Patient reports she had a headache yesterday with dizziness. Denied headache or dizziness today. Patient reports she is drinking enough fluids. She has an appointment today with her PCP regarding the above as she stated she has had the above symptoms intermittently. Patient also has an appointment with her Neurologist Dr García regarding the above symptoms. Patient is alert and oriented x4. calm and cooperative. Medications reconciled with patient and Rosie Pretty Discharge paperwork. Patient given a copy of her safety plan if needed.
[2022-06-23 15:07] LABS: Amphetamine Screen Urine Not Detected (Not Detect); Barbiturates, Urine Not Detected (Not Detect); Benzodiazepines Screen Urine Not Detected (Not Detect); Cannabinoid Screen Urine Not Detected (Not Detect); Cocaine Screen Urine Not Detected (Not Detect); Fentanyl, urine Not Detected (Not Detect); Opiate Screen Urine Not Detected (Not Detect); Phencyclidine Screen Urine Not Detected (Not Detect)
--- NOTE | 2022-06-24 15:13 | HO.PHPIOP ---
Case opened in treatment team
--- NOTE | 2022-06-28 08:21 | HO.PHPIOP ---
The clients called to inform us that She was admitted inpatient psych at [facility] over the weekend. He states that she had a difficult weekend due to it being the anniversary of her sons . He states that when she is discharged she would like to return to [facility].
== END 2022-06-25 23:59 | disposition home or self-care (01) ==
LOC: HO.PHPA 09:30
PROVIDERS: Nurse Practitioner Psychiatric/Mental Health; Visit Provider Psychiatry & Neurology Psychiatry
DX: F31.32 Bipolar disorder, current episode depressed, moderate (principal); F12.20 Cannabis dependence, uncomplicated
CPT/HCPCS: 80307; 90792; 90853

== ENCOUNTER 2022-06-24 15:49 | Outpatient (REF) | payer MEDICARE, SELFPAY ==
[2022-06-24 16:06] LABS: MANUAL DIFF FLAG NO
[2022-06-24 16:29] LABS: Basophils Absolute Auto 0.1 X10*3/uL (0.0-0.2); Basophils Percent Auto 0.6 % (0-2); Eosinophils Absolute Auto 0.3 X10*3/uL (0.0-0.4); Eosinophils Percent Auto 3.3 % (0-4); Hemoglobin 13.6 g/dl (12.0-16.0); Imm Gran Abs Auto 0.03 X10*3/uL (0.00-0.03); Imm Gran Pct Auto 0.3 % (0.0-0.4); Lymphocytes Absolute Auto 2.9 X10*3/uL (1.2-4.9); Lymphocytes Percent Auto 30.7 % (20-40); Mean Corpuscular HGB Conc 33.2 g/dl (31.0-35.0); Mean Corpuscular Hemoglobin 31.9 pg (27.0-33.0); Mean Platelet Volume 10.2 fL (9.4-12.3); Monocytes Absolute Auto 0.7 X10*3/uL (0.1-1.2); Monocytes Percent Auto 7.8 % (2-11); Neutrophils Absolute Auto 5.3 x10*3/uL (2.0-8.3); Neutrophils Percent Auto 57.3 % (45-73); Platelet Count 481 X10*3/uL (160-400); Red Blood Count 4.27 X10*6/uL (4.20-5.50); Red Cell Distribution Width 13.2 % (11.0-16.0); White Blood Count 9.3 X10*3/uL (4.8-10.8)
[2022-06-24 16:41] LABS: C Reactive Protein 0.17 mg/dL (< or = 0.50)
[2022-06-24 16:44] LABS: Alanine Aminotransferase 8 U/L (0-31); Albumin Level 4.5 g/dL (3.5-5.0); Alkaline Phosphatase 126 U/L (39-117); Anion Gap 17 (12-20); Aspartate Amino Transferase 14 U/L (5-31); Bilirubin Total 0.3 mg/dL (0.0-1.0); Blood Urea Nitrogen 13 mg/dL (9-16); Calcium 9.7 mg/dL (8.4-10.2); Carbon Dioxide 24 mmol/L (22-29); Chloride 101 mmol/L (96-108); Cholesterol 212 mg/dL; Estimated Glomerular Filt Rate > 60; Glucose Fasting 101 mg/dL (60-99); HDL Cholesterol 66 mg/dL; LDL Cholesterol Calculated 125 mg/dl; Potassium 4.4 mmol/L (3.3-5.1); Sodium 138 mmol/L (135-145); Total Protein 7.7 g/dL (6.5-8.0); Triglycerides 106 mg/dL
[2022-06-24 17:04] LABS: TSH reflex Free T4 6.46 uIU/mL (0.32-4.0)
[2022-06-24 17:38] LABS: Free T4 (Free Thyroxine) 1.07 ng/dL (0.71-1.85)
[2022-06-24 17:56] LABS: Erythrocyte Sedimentation Rate 16 MM/HR (0-20)
== END 2022-06-24 15:50 | disposition home or self-care (01) ==
LOC: HO.LAB 15:49
PROVIDERS: Nurse Practitioner Family; Visit Provider Psychiatry & Neurology Neurology
DX: E03.9 Hypothyroidism, unspecified (principal); E78.5 Hyperlipidemia, unspecified; F31.32 Bipolar disorder, current episode depressed, moderate; R51.9 Headache, unspecified
CPT/HCPCS: 36415; 80053; 80061; 80178; 84439; 84443; 85025; 85652; 86140

== ENCOUNTER 2022-06-29 13:42 | Outpatient (REF) | payer MEDICARE, SELFPAY ==
--- NOTE | ~2022-06-29 | MR_ITS ---
EXAMINATION: MR BRAIN WITHOUT CONTRAST CLINICAL INFORMATION: Headache COMPARISON: MRI of the brain without contrast 10/08/2021 TECHNIQUE: Multiplanar multisequence MR imaging of the brain was obtained without intravenous contrast. FINDINGS: There is no acute infarct on diffusion-weighted imaging. There is no intracranial hemorrhage on iron-sensitive imaging. No extra-axial collection or mass effect/herniation. There are several scattered foci of nonspecific supratentorial white matter T2/FLAIR signal abnormality. No hydrocephalus. The ventricles are normal in morphology and size. The major flow voids at the skull base are preserved. The midline structures are normal. The cerebellar tonsils are normally positioned. The craniocervical junction is normal. Marrow signal is within normal limits. 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 Increased mucosal thickening and partial opacification of the left maxillary sinus. Decreased left mastoid fluid and increased right mastoid fluid. MR/MR head/brain wo con IMPRESSION: 1. No acute intracranial abnormality. 2. Increased mucosal thickening and partial opacification of the left maxillary sinus. Correlate clinically for acute sinusitis 3. Decreased left mastoid and increased right mastoid fluid.
== END 2022-06-29 13:43 | disposition home or self-care (01) ==
LOC: HO.MRI 13:42
PROVIDERS: Visit Provider Psychiatry & Neurology Neurology
DX: R51.9 Headache, unspecified (principal)
CPT/HCPCS: 70551

== ENCOUNTER 2022-07-13 11:45 | Outpatient (RCR) | payer MEDICARE, SELFPAY ==
--- NOTE | 2022-07-13 14:09 | HO.PHPIOP ---
the client told staff after the first group that being here was not helpful and that she wanted to leave the program. I met with her after the third group to discuss this. She explained that she is feeling better and doesn't need to be in the group with others who are experiencing severe symptoms. Jaja states that she was at that level before but she feels much better since the hospitalization. She wants to continue with the plans that she has for [facility] . Dr Cuenca was notified and they will call her for an assessment. She already completed an intake at [facility] and will be connected with an individual therapist. She has her first psychiatric appointment on 08/05.
[2022-07-13 14:31] VITALS: BMI 19.0
--- NOTE | 2022-07-13 14:35 | PC.ADMIT ---
Patient admit to [facility] today, this will be the only day she will attend. Patient notified staff that she wanted to leave program, states she will attend today's sessions. Patient is interested in seeking TMS treatment which she has had in the past with good effect. Jaja reports she is no longer in the place where other participants are. States she is feeling better and would not benefit from any further days in [facility]. Dr Cuenca's office was notified and they will call her for an assessment. She already completed an intake at [facility] and will be connected with an individual therapist. She has her first psychiatric appointment on 08/05.
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
--- NOTE | 2022-07-20 14:05 | HO.PHPIOP ---
I called and left a message on Tracy at [facility] voice mail regarding the clients one day of attendance and discharge.
== END 2022-07-13 23:59 | disposition home or self-care (01) ==
LOC: HO.PHPA 11:45
PROVIDERS: Visit Provider Psychiatry & Neurology Psychiatry
DX: F31.32 Bipolar disorder, current episode depressed, moderate (principal); F12.90 Cannabis use, unspecified, uncomplicated
CPT/HCPCS: 90853

== ENCOUNTER 2022-08-02 10:58 | Outpatient (REF) | payer MEDICARE, SELFPAY | END 2022-08-02 10:59 | disposition home or self-care (01) | LOC: HO.HOSX 10:58 | PROVIDERS: Visit Provider Orthopaedic Surgery | DX: M17.12 Unilateral primary osteoarthritis, left knee (principal) | CPT/HCPCS: 20610; 99202; J1100 ==

== ENCOUNTER 2022-09-23 11:22 | Outpatient (REF) | payer MEDICARE, SELFPAY ==
[2022-09-23 11:39] LABS: MANUAL DIFF FLAG NO
[2022-09-23 12:23] LABS: Basophils Absolute Auto 0.1 X10*3/uL (0.0-0.2); Basophils Percent Auto 0.8 % (0-2); Eosinophils Absolute Auto 0.2 X10*3/uL (0.0-0.4); Hematocrit 39.9 % (37.0-47.0); Hemoglobin 13.1 g/dl (12.0-16.0); Imm Gran Abs Auto 0.02 X10*3/uL (0.00-0.03); Imm Gran Pct Auto 0.3 % (0.0-0.4); Lymphocytes Absolute Auto 1.9 X10*3/uL (1.2-4.9); Lymphocytes Percent Auto 23.9 % (20-40); Mean Corpuscular HGB Conc 32.8 g/dl (31.0-35.0); Mean Corpuscular Hemoglobin 31.8 pg (27.0-33.0); Mean Corpuscular Volume 96.8 fL (80.0-98.0); Mean Platelet Volume 10.6 fL (9.4-12.3); Monocytes Absolute Auto 0.6 X10*3/uL (0.1-1.2); Monocytes Percent Auto 7.3 % (2-11); Neutrophils Absolute Auto 5.2 x10*3/uL (2.0-8.3); Neutrophils Percent Auto 65.7 % (45-73); Platelet Count 409 X10*3/uL (160-400); Red Blood Count 4.12 X10*6/uL (4.20-5.50); Red Cell Distribution Width 13.2 % (11.0-16.0); White Blood Count 7.9 X10*3/uL (4.8-10.8)
[2022-09-23 13:08] LABS: Alanine Aminotransferase 10 U/L (0-31); Albumin Level 3.8 g/dL (3.5-5.0); Alkaline Phosphatase 116 U/L (39-117); Anion Gap 14 (12-20); Aspartate Amino Transferase 11 U/L (5-31); Bilirubin Total 0.2 mg/dL (0.0-1.0); Blood Urea Nitrogen 8 mg/dL (9-16); Calcium 9.2 mg/dL (8.4-10.2); Carbon Dioxide 26 mmol/L (22-29); Chloride 103 mmol/L (96-108); Cholesterol 207 mg/dL; Estimated Glomerular Filt Rate > 60; Glucose Fasting 127 mg/dL (60-99); HDL Cholesterol 53 mg/dL; LDL Cholesterol Calculated 113 mg/dl; Potassium 4.9 mmol/L (3.3-5.1); Sodium 138 mmol/L (135-145); Total Protein 6.1 g/dL (6.5-8.0); Triglycerides 206 mg/dL
[2022-09-23 13:11] LABS: TSH reflex Free T4 1.95 uIU/mL (0.32-4.0)
[2022-09-23 13:15] LABS: Thyroid Stimulating Hormone 1.97 uIU/mL (0.32-4.0)
== END 2022-09-23 11:23 | disposition home or self-care (01) ==
LOC: HO.LAB 11:22
PROVIDERS: Internal Medicine; Nurse Practitioner Family; Visit Provider Clinical Nurse Specialist Psychiatric/Mental Health, Adult
DX: Z13.0 Encounter for screening for diseases of the blood and blood-forming organs and certain disorders involving the immune mechanism (principal); I10 Essential (primary) hypertension; E03.9 Hypothyroidism, unspecified; E78.5 Hyperlipidemia, unspecified; Z79.899 Other long term (current) drug therapy
CPT/HCPCS: 36415; 80053; 80061; 84443; 85025

== ENCOUNTER 2022-11-21 23:18 | Emergency (ER) | payer MEDICARE, SELFPAY ==
[2022-11-21 23:33] VITALS: BP 149/93; PULSE 93; RESP 17; TEMP 36.6; O2SAT 97; BMI 22.3
--- NOTE | 2022-11-21 23:51 | ED.GENADULT ---
HPI - General Adult General Chief complaint: Psychiatric Symptoms <Matt Clemens - Last Filed: 11/21/22 23:55> Stated complaint: Crisis <Matt Clemens - Last Filed: 11/21/22 23:55> Time Seen by Provider: 11/21/22 23:41 <Matt Clemens - Last Filed: 11/21/22 23:55> Source: patient, RN notes reviewed and old records reviewed <Matt Clemens - Last Filed: 11/21/22 23:55> Mode of arrival: ambulatory <Matt Clemens - Last Filed: 11/21/22 23:55> Limitations: no limitations <Matt Clemens - Last Filed: 11/21/22 23:55> History of Present Illness HPI narrative: 62-year-old female with past medical history significant for polysubstance abuse, diabetes, bipolar disorder, hypothyroidism, COPD, hyperlipidemia, restless leg syndrome presents for evaluation of depression Patient reports increasing depression with suicidal ideation for the last week. Patient reports that she get out of my [place] about 1 month ago She does not feel that her mood stabilizer is working She reports that she is hearing voices. Denies any specific plan for suicidal ideation She denies any somatic complaints <Matt Clemens - Last Filed: 11/21/22 23:55> Related Data Home medications: Home Medications Medication Instructions Recorded Confirmed pramipexole 0.25 mg tablet 1 tab PO BID 03/01/22 11/04/22 levothyroxine 50 mcg tablet 1 tab PO DAILY 07/13/22 11/04/22 albuterol sulfate 90 mcg/actuation 2 puff inhalation Q4-6H PRN 11/03/22 11/04/22 aerosol inhaler wheezing citalopram 10 mg tablet 1 tab PO DAILY 11/03/22 11/04/22 metformin 500 mg tablet 1 tab PO BID 11/03/22 11/04/22 Previous Rx's Medication Instructions Recorded pregabalin 50 mg capsule 50 mg PO QID 30 days #120 caps 09/08/22 blood sugar diagnostic (OneTouch #100 ea 11/10/22 Verio test strips) blood-glucose meter (OneTouch #1 ea 11/10/22 Verio Flex Start kit) lancets 28 gauge (OneTouch #100 ea 11/10/22 SureSoft Lancing Devices) mirtazapine 7.5 mg tablet 7.5 mg PO BEDTIME #30 tabs 11/11/22 oxcarbazepine 300 mg tablet 300 mg PO BID #60 tabs 11/11/22 <Matt Clemens - Last Filed: 11/21/22 23:55> Allergies/adverse reactions: Allergies Allergy/AdvReac Type Severity Reaction Status Date / Time olanzapine [From ZYPREXA] AdvReac Intermediate RLS Verified 11/04/22 15:15 symptoms clonidine AdvReac RLS Verified 11/04/22 15:15 diphenhydramine AdvReac RLS Verified 11/04/22 15:15 [From Benadryl] hydroxyzine AdvReac RLS Verified 11/04/22 15:15 melatonin AdvReac RLS Verified 11/04/22 15:15 atypical antipsychotics AdvReac Severe This class Uncoded 11/04/22 15:15 appears to potentiate RLS/Akathesia <Matt Liray - Last Filed: 11/21/22 23:55> Review of Systems Constitutional: Constitutional: Reports as per HPI, Denies chills, Denies fatigue, Denies fever(s) and Denies headache(s) <Matt Liray - Last Filed: 11/21/22 23:55> ENT: Denies headache(s) <Matt Liray - Last Filed: 11/21/22 23:55> Cardiovascular: Cardiovascular: Denies chest pain and Denies dyspnea <Matt Liray - Last Filed: 11/21/22 23:55> Respiratory: Respiratory: Denies cough and Denies dyspnea <Matt Liray - Last Filed: 11/21/22 23:55> Gastrointestinal: Gastrointestinal: Denies abdominal pain, Denies constipation and Denies vomiting <Matt Liray - Last Filed: 11/21/22 23:55> Genitourinary: Genitourinary: Denies dysuria <Matt Liray - Last Filed: 11/21/22 23:55> Neurologic: Denies headache(s) and Denies focal weakness <Matt Liray - Last Filed: 11/21/22 23:55> Psychiatric: Psychiatric: Reports auditory hallucinations and Reports homicidal ideation <Matt Liray - Last Filed: 11/21/22 23:55> Endocrine: Endocrine: Denies fatigue <Matt Lira Last Filed: 11/21/22 23:55> [facility] Past Medical History Medical History: Medical History (Updated 11/22/22 @ 07:22 by Lisa Denise MD) Benzodiazepine abuse Bipolar II disorder Cannabis use disorder, moderate, dependence COPD (chronic obstructive pulmonary disease) Fibromyalgia HLD (hyperlipidemia) Hypothyroidism Osteoporosis RLS (restless legs syndrome) Smoker Type II diabetes mellitus <Matt Liray - Last Filed: 11/21/22 23:55> Surgical History: Surgical History H/O: hysterectomy <Mattzoya Lira Last Filed: 11/21/22 23:55> Family History Family History: Family History Mother No problems noted. Father No problems noted. Son Substance use disorder <Matt Lira Last Filed: 11/21/22 23:55> Social History Social History: Social History Household Members: Spouse Household Members Other:: son's girlfriend Housing: House Do you presently have visiting nurse or other home services: No Alcohol intake: never Patient Tobacco Use Status: Current everyday Tobacco user Tobacco use type: Cigarette Cigarette Packs Per Day: 0.5 Cigarettes Per Day: 11 Years Smoked: Since age 22 e-Cigarette/Vaping Use: Currently Using Second Hand Smoke Exposure: Yes Substance Use Type: Marijuana Advance Directives: No Advance Directives Information Provided: Yes service: No Current occupational status: employed Sexual orientation: Straight/Heterosexual Cognitive needs: No Hearing needs: No Vision needs: No <Matt Clemens Last Filed: 11/21/22 23:55> Physical Exam ED Vital Signs: Vital Signs - 24 hr 11/21/22 23:33 11/22/22 06:33 Temperature 97.8 F 97.8 F Pulse Rate 93 84 Respiratory Rate 17 18 Blood Pressure 149/93 H 115/69 Pulse Oximetry 97 96 Oxygen Delivery Method Room Air Room Air BMI result Body Mass Index 22.3 <Matt CamachoTar Heel - Last Filed: 11/21/22 23:55> Vital Signs - 24 hr 11/21/22 23:33 11/22/22 06:33 Temperature 97.8 F 97.8 F Pulse Rate 93 84 Respiratory Rate 17 18 Blood Pressure 149/93 H 115/69 Pulse Oximetry 97 96 Oxygen Delivery Method Room Air Room Air BMI result Body Mass Index 22.3 <Lisa Denise MD - Last Filed: 11/22/22 07:22> Const General: healthy appearing, comfortable, no acute distress, alert and awake <Matt CamachoCarroll - Last Filed: 11/21/22 23:55> Nutritional Appearance: well nourished <Matt OTar Heel - Last Filed: 11/21/22 23:55> Orientation/consciousness: patient oriented x3 <Matt OCarroll - Last Filed: 11/21/22 23:55> HENMT Head: Yes normocephalic and Yes atraumatic <Matt OCarroll - Last Filed: 11/21/22 23:55> Throat: Yes posterior oropharynx normal <Matt OTar Heel - Last Filed: 11/21/22 23:55> Eyes Eyelids: Yes eyelids normal <Matt OTar Heel - Last Filed: 11/21/22 23:55> Conjunctivae: conjunctivae normal <Mtat OCarroll - Last Filed: 11/21/22 23:55> Sclerae: sclerae normal <Matt OTar Heel - Last Filed: 11/21/22 23:55> Corneas: corneas normal <Matt JaniceCarroll - Last Filed: 11/21/22 23:55> Pupils: Equal, round and reactive pupils present <Matt OTar Heel - Last Filed: 11/21/22 23:55> EOM: EOMs intact bilaterally <Matt JaniceTar Heel - Last Filed: 11/21/22 23:55> Neck Neck: Yes full ROM <Matt JaniceTar Heel - Last Filed: 11/21/22 23:55> Resp Effort & Inspection: normal respiratory effort, able to speak in complete sentences, no audible wheezes and not labored <Matt De LeonTar Heel - Last Filed: 11/21/22 23:55> Auscultation: clear to auscultation bilaterally <Matt O Last Filed: 11/21/22 23:55> Cardio Rate: regular rate <Matt Last Filed: 11/21/22 23:55> Rhythm: regular rhythm <Matt Last Filed: 11/21/22 23:55> GI Inspection: No distended <Matt O Last Filed: 11/21/22 23:55> Palpation (GI): Soft to palpation, not firm, nontender, no guarding and not rigid <Matt O Last Filed: 11/21/22 23:55> Auscultation: normoactive bowel sounds <Matt Last Filed: 11/21/22 23:55> Skin General skin exam: no rashes or lesions noted and elasticity normal <Matt O Last Filed: 11/21/22 23:55> Neuro General: patient oriented x3 <Matt Last Filed: 11/21/22 23:55> Cranial nerves: Yes CN's II-XII intact bilaterally, Yes Equal, round and reactive pupils present and Yes Bilaterally intact EOM present <Matt O Last Filed: 11/21/22 23:55> Cognition (Neuro): normal cognition <Matt O Last Filed: 11/21/22 23:55> Extrem Other: Moving all extremities well without any obvious deformities <Matt O Last Filed: 11/21/22 23:55> Psych Appearance: grossly normal <Matt O Last Filed: 11/21/22 23:55> Mental Status: mental status grossly normal <Matt O Last Filed: 11/21/22 23:55> Speech and movement: Normal speech and movement present <Matt O Last Filed: 11/21/22 23:55> Affect: Sad affect present <Matt O Last Filed: 11/21/22 23:55> Attitude: cooperative <Matt O Last Filed: 11/21/22 23:55> Thought process: Normal thought process present <Matt Clemens - Last Filed: 11/21/22 23:55> Thought content: Suicidality present <Matt Clemens - Last Filed: 11/21/22 23:55> Medical Decision Making Medical Decision Making MDM Narrative: 70-year-old female with past medical history significant for bipolar disorder presents for evaluation of depression, suicidal ideation. She require medical clearance and care team evaluation. Patient is mildly hypertensive to 149/93, vitals otherwise stable on arrival <Matt Clemens - Last Filed: 11/21/22 23:55> 70-year-old female with past medical history significant for bipolar disorder presents for evaluation of depression, suicidal ideation. She require medical clearance and care team evaluation. Patient is mildly hypertensive to 149/93, vitals otherwise stable on arrival -07:19: Patient states that she is not suicidal or homicidal. Patient states that she felt very overwhelmed over the weekend because it was Easter, around this time of year is the anniversary of her son's . However, patient states that although at some point she was a bit homicidal, she would never go through it. Patient states that she really wants to get better, states she has ?so much to live for? including her kids, grandkids and she is looking forward to returning to work. Patient states that she has had a CT treatment in the past and it was successful and she will be seeing Dr. Cuenca either today or tomorrow and consider restarting the treatment. Patient states that she was discharged from [facility] on November 12, states that this problem was more detrimental for her than being helpful. Patient states that she has an appointment today a group therapy in about hour and a half and she is looking forward to getting to that meeting because it really helps her with her mood and overall mental health -patient is not on a Section 12, patient not suicidal homicidal, has appointments pending with her therapist. <Lisa Denise MD - Last Filed: 11/22/22 07:22> Differential Diagnosis Depression Suicidal ideation Bipolar disorder Medication noncompliance Mood disorder Polysubstance abuse <Matt Clemens - Last Filed: 11/21/22 23:55> Lab Data Result Diagrams: 11/22/22 00:15 11/22/22 00:15 <Matt Liray - Last Filed: 11/21/22 23:55> Labs: Lab Results 11/22/22 11/22/22 Range/Units 00:15 00:15 WBC 11.1 H (4.8-10.8) X10*3/uL RBC 4.07 L (4.20-5.50) X10*6/uL Hgb 13.1 (12.0-16.0) g/dl Hct 37.8 (37.0-47.0) % MCV 92.9 (80.0-98.0) fL MCH 32.2 (27.0-33.0) pg MCHC 34.7 (31.0-35.0) g/dl RDW 13.7 (11.0-16.0) % Plt Count 406 H (160-400) X10*3/uL MPV 9.2 L (9.4-12.3) fL Immature Gran % (Auto) 0.3 (0.0-0.4) % Neut % (Auto) 65.2 (45-73) % Lymph % (Auto) 23.7 (20-40) % [place] % (Auto) 9.2 (2-11) % Eos % (Auto) 1.1 (0-4) % Baso % (Auto) 0.5 (0-2) % Lymph # (Auto) 2.6 (1.2-4.9) X10*3/uL [place] # (Auto) 1.0 (0.1-1.2) X10*3/uL Eos # (Auto) 0.1 (0.0-0.4) X10*3/uL Baso # (Auto) 0.1 (0.0-0.2) X10*3/uL Abs Immat Gran (auto) 0.03 (0.00-0.03) X10*3/uL Absolute Neuts (auto) 7.2 (2.0-8.3) x10*3/uL Absolute Nucleated RBC 0.000 (0.0-0.012) X10*3/uL Nucleated RBC % (auto) 0.0 (0.0-0.2) /100WBC Sodium 135 (135-145) mmol/L Potassium 4.0 (3.3-5.1) mmol/L Chloride 102 (96-108) mmol/L Carbon Dioxide 23 (22-29) mmol/L Anion Gap 14 (12-20) BUN 12 (9-16) mg/dL Creatinine 0.75 (0.5-1.4) mg/dL Estim Creat Clear Calc 60.2 Estimated GFR > 60 Random Glucose 135 H (60-115) mg/dL Calcium 9.6 (8.4-10.2) mg/dL Total Bilirubin 0.4 (0.0-1.0) mg/dL AST 15 (5-31) U/L ALT 8 (0-31) U/L Alkaline Phosphatase 121 H (39-117) U/L Total Protein 7.0 (6.5-8.0) g/dL Albumin 4.6 (3.5-5.0) g/dL Salicylates < 5.0 L (15-30) mg/dL Acetaminophen < 17 (<30) mcg/mL Ethyl Alcohol < 10 mg/dL <Matt Clemens - Last Filed: 11/21/22 23:55> Lab Results 11/22/22 11/22/22 Range/Units 00:15 00:15 WBC 11.1 H (4.8-10.8) X10*3/uL RBC 4.07 L (4.20-5.50) X10*6/uL Hgb 13.1 (12.0-16.0) g/dl Hct 37.8 (37.0-47.0) % MCV 92.9 (80.0-98.0) fL MCH 32.2 (27.0-33.0) pg MCHC 34.7 (31.0-35.0) g/dl RDW 13.7 (11.0-16.0) % Plt Count 406 H (160-400) X10*3/uL MPV 9.2 L (9.4-12.3) fL Immature Gran % (Auto) 0.3 (0.0-0.4) % Neut % (Auto) 65.2 (45-73) % Lymph % (Auto) 23.7 (20-40) % [place] % (Auto) 9.2 (2-11) % Eos % (Auto) 1.1 (0-4) % Baso % (Auto) 0.5 (0-2) % Lymph # (Auto) 2.6 (1.2-4.9) X10*3/uL [place] # (Auto) 1.0 (0.1-1.2) X10*3/uL Eos # (Auto) 0.1 (0.0-0.4) X10*3/uL Baso # (Auto) 0.1 (0.0-0.2) X10*3/uL Abs Immat Gran (auto) 0.03 (0.00-0.03) X10*3/uL Absolute Neuts (auto) 7.2 (2.0-8.3) x10*3/uL Absolute Nucleated RBC 0.000 (0.0-0.012) X10*3/uL Nucleated RBC % (auto) 0.0 (0.0-0.2) /100WBC Sodium 135 (135-145) mmol/L Potassium 4.0 (3.3-5.1) mmol/L Chloride 102 (96-108) mmol/L Carbon Dioxide 23 (22-29) mmol/L Anion Gap 14 (12-20) BUN 12 (9-16) mg/dL Creatinine 0.75 (0.5-1.4) mg/dL Estim Creat Clear Calc 60.2 Estimated GFR > 60 Random Glucose 135 H (60-115) mg/dL Calcium 9.6 (8.4-10.2) mg/dL Total Bilirubin 0.4 (0.0-1.0) mg/dL AST 15 (5-31) U/L ALT 8 (0-31) U/L Alkaline Phosphatase 121 H (39-117) U/L Total Protein 7.0 (6.5-8.0) g/dL Albumin 4.6 (3.5-5.0) g/dL Salicylates < 5.0 L (15-30) mg/dL Acetaminophen < 17 (<30) mcg/mL Ethyl Alcohol < 10 mg/dL <Lisa Denise MD - Last Filed: 11/22/22 07:22> Discharge Plan Discharge Clinical Impression: Depression <Matt Clemens - Last Filed: 11/21/22 23:55> Patient Disposition: Home, Self-Care <Matt Clemens - Last Filed: 11/21/22 23:55> Instructions: Depression (ED) <Matt Clemens - Last Filed: 11/21/22 23:55> Additional Instructions: Please follow-up with your primary care physician tomorrow. If you have any worsening or new symptoms, please return to the emergency room or call 911 <Matt Clemens - Last Filed: 11/21/22 23:55> Prescriptions: No Action pregabalin 50 mg capsule 50 mg PO QID 30 Days Qty: 120 0RF (DME) lancets [[employer] Sure[employer] Lancing Dev] 28 gauge misc See Rx Instructions .Route Qty: 100 4RF Rx Instructions: As directed BID (DME) blood-glucose meter [[employer] Verio Flex Start] Kit See Rx Instructions .Route Qty: 1 0RF Rx Instructions: As directed (DME) Memorado[employer] Verio test strips Strip See Rx Instructions .Route Qty: 100 4RF Rx Instructions: As directed BID pramipexole 0.25 mg tablet 1 tab PO BID levothyroxine 50 mcg tablet 1 tab PO DAILY metformin 500 mg tablet 1 tab PO BID citalopram 10 mg tablet 1 tab PO DAILY albuterol sulfate 90 mcg/actuation HFA aerosol inhaler 2 puff INHALATION Q4-6H PRN (Reason: wheezing) mirtazapine 7.5 mg tablet 7.5 mg PO BEDTIME Qty: 30 0RF oxcarbazepine 300 mg tablet 300 mg PO BID Qty: 60 0RF <Matt Clemens - Last Filed: 11/21/22 23:55> Interventions: [place]-Suicide Risk Severity Scale Last Done: 11/22/22 00:20 <Matt Clemens - Last Filed: 11/21/22 23:55>
--- NOTE | 2022-11-21 23:52 | MHC.EDTECH ---
pt changed over with no incident, pt requesting a cup of regular tea. Charge nurse ok with that.
--- NOTE | 2022-11-22 00:12 | MHC.EDTECH ---
pt refusing ekg 0013.
[2022-11-22 00:24] LABS: MANUAL DIFF FLAG NO
[2022-11-22 00:30] LABS: Basophils Absolute Auto 0.1 X10*3/uL (0.0-0.2); Basophils Percent Auto 0.5 % (0-2); Eosinophils Absolute Auto 0.1 X10*3/uL (0.0-0.4); Eosinophils Percent Auto 1.1 % (0-4); Hematocrit 37.8 % (37.0-47.0); Hemoglobin 13.1 g/dl (12.0-16.0); Imm Gran Abs Auto 0.03 X10*3/uL (0.00-0.03); Imm Gran Pct Auto 0.3 % (0.0-0.4); Lymphocytes Absolute Auto 2.6 X10*3/uL (1.2-4.9); Lymphocytes Percent Auto 23.7 % (20-40); Mean Corpuscular HGB Conc 34.7 g/dl (31.0-35.0); Mean Corpuscular Hemoglobin 32.2 pg (27.0-33.0); Mean Corpuscular Volume 92.9 fL (80.0-98.0); Mean Platelet Volume 9.2 fL (9.4-12.3); Monocytes Percent Auto 9.2 % (2-11); Neutrophils Absolute Auto 7.2 x10*3/uL (2.0-8.3); Neutrophils Percent Auto 65.2 % (45-73); Platelet Count 406 X10*3/uL (160-400); Red Blood Count 4.07 X10*6/uL (4.20-5.50); Red Cell Distribution Width 13.7 % (11.0-16.0); White Blood Count 11.1 X10*3/uL (4.8-10.8)
[2022-11-22 00:42] LABS: Acetaminophen LAB < 17 mcg/mL (<30); Alanine Aminotransferase 8 U/L (0-31); Albumin Level 4.6 g/dL (3.5-5.0); Alkaline Phosphatase 121 U/L (39-117); Anion Gap 14 (12-20); Aspartate Amino Transferase 15 U/L (5-31); Bilirubin Total 0.4 mg/dL (0.0-1.0); Blood Urea Nitrogen 12 mg/dL (9-16); Calcium 9.6 mg/dL (8.4-10.2); Carbon Dioxide 23 mmol/L (22-29); Chloride 102 mmol/L (96-108); Creatinine Clr Calc Pharmacy 60.2; Estimated Glomerular Filt Rate > 60; Ethanol < 10 mg/dL; Glucose Random 135 mg/dL (60-115); Salicylate < 5.0 mg/dL (15-30); Sodium 135 mmol/L (135-145)
--- NOTE | 2022-11-22 01:28 | MHC.EDTECH ---
pt unable to give urine sample. multiple attempts. urine cup at bedside, sitter aware.
--- NOTE | 2022-11-22 04:51 | MHC.EDTECH ---
pt belongings placed in laundry closet
[2022-11-22 06:33] VITALS: BP 115/69; PULSE 84; RESP 18; TEMP 36.6; O2SAT 96
--- NOTE | 2022-11-22 07:17 | PC.NURSE ---
Assumed care of this pt at 0700. pt a&ox4, calm, cooperative, and pleasant in conversation. pt kindly refused breakfast but given new cup of tea. pt denies SI/HI at this time and requesting to go home so that she can attend her psychiatric outpatient program. notified.
== END 2022-11-22 07:39 | disposition home or self-care (01) ==
PROVIDERS: Physician Assistant; Emergency Provider Emergency Medicine; PCP Student in an Organized Health Care Education/Training Program
DX: F33.1 Major depressive disorder, recurrent, moderate (principal); R45.851 Suicidal ideations; F17.210 Nicotine dependence, cigarettes, uncomplicated; Z71.6 Tobacco abuse counseling; Z79.899 Other long term (current) drug therapy
CPT/HCPCS: 36415; 80053; 80143; 80179; 82077; 85025; 99284; 99285

== ENCOUNTER 2022-11-22 09:30 | Outpatient (RCR) | payer MEDICARE, SELFPAY ==
[2022-11-03 10:45] VITALS: BP 88/55; PULSE 76
[2022-11-03 14:00] VITALS: BP 92/56
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
[2022-11-05 13:43] LABS: Amphetamine Screen Urine Not Detected (Not Detect); Barbiturates, Urine Not Detected (Not Detect); Benzodiazepines Screen Urine Not Detected (Not Detect); Cannabinoid Screen Urine POSITIVE (Not Detect); Cocaine Screen Urine Not Detected (Not Detect); Fentanyl, urine Not Detected (Not Detect); Opiate Screen Urine Not Detected (Not Detect); Phencyclidine Screen Urine Not Detected (Not Detect)
--- NOTE | 2022-11-08 13:41 | PC.NURSE ---
Jessica Stephenson stated Jaja stated she is not feeling well, said she was safe but did not elaborate. I called and left Jaja a message to call me back to f/u. Awaiting call back.
--- NOTE | 2022-11-09 09:16 | PC.NURSE ---
Per Yamileth Edwards, Jaja is not scheduled today.
--- NOTE | 2022-11-12 09:13 | HO.PHPPROGNO ---
Subjective Subjective Date of Service: 11/11/22 Reason For Visit: mood lability depression,AUD Medical Problems Affecting Mental Status: No Interim History: Continues with depressed mood/affect. Reports feeling better since discharge from hospital recently. Finding program helpful. Finding recent increase in oxcarbamazepine somewhat helpful, would like to consider further increase. No SI, no safety concerns. Medication Compliance: Yes Side effects from medications: No Attending Groups: Yes Review of Systems Acute medical concerns: No Medical Review of Systems: unchanged Review of Systems Review of Systems Yes all other systems are reviewed and are negative Constitutional: Reports no additional constitutional complaints Mental Status Exam Mental Status Exam Patient Appearance: Well Grooomed Patient Orientation: Person, Place, Time and Situation Level of Consciousness: Appropriate Patient Behavior: Appropriate, Cooperative and Good Eye Contact Mood Description: Depressed Affect Description: Depressed and Anxious Patient Cognition Impaired: No Ability to Follow Directions: Good Speech Pattern: Clear and Appropriate Memory Description: Intact Hallucinations: None Delusions: Not Present Thought Process: Intact Thought Content: positive for Intact Depressive Symptoms: Increased Anxiety, Difficulty Sleeping, Loss of Int. in Activity, Unhappiness, Increased Fatigue and Low Self Esteem Judgement: Fair Assessment & Plan Assessment & Plan (1) Bipolar disorder, current episode depressed, moderate: Status: Acute Code(s): F31.32 - Bipolar disorder, current episode depressed, moderate Assessment and Plan: Reports feeling better since discharge from hospital recently, although continues with depression. Finding program helpful. Finding recent increase in oxcarbamazepine somewhat helpful, would like to consider further increase. We discussed increasing dose to 300 mg twice daily. She was agreeable to this plan. Finding mirtazapine 7.5 mg at bedtime helpful for sleep. Requesting refill. No SI, no safety concerns. (2) Polysubstance abuse: Status: Acute Code(s): F19.10 - Other psychoactive substance abuse, uncomplicated Assessment and Plan: Remains abstinent from substance of abuse at this time. Plan 1. Continue with current [facility] plan of care. 2. Increase oxcarbamazepine to 300 mg b.i.d.. 3. Continue other medications as currently prescribed. 4. Follow-up as per protocol. Patient educated on: diagnosis, medication risk/benefits, substance abuse and therapeutic strategies Informed Consent: understands Reason for contiued partial hosp. stay Substantial Risk for: harm to self, inability to function and rapid decompensation Certification I certify that partial hospital treatment is medically necessary due to the symptoms and problems resulting from the patient's mental illness and the failure to treat the patient at the partial hospital level of care would likely result in the patient requiring inpatient psychiatric care which could not be prevented at a less intensive level of care. Total time managing care of this patient today __20__ minutes. Discharge Plan Discharge Attending provider: Sonido Bernard Medications: New mirtazapine 7.5 mg tablet 7.5 mg PO BEDTIME Qty: 30 0RF oxcarbazepine 300 mg tablet 300 mg PO BID Qty: 60 0RF Discontinued oxcarbazepine 150 mg tablet 1 tab PO BID mirtazapine 7.5 mg tablet 1 tab PO BEDTIME No Action pregabalin 50 mg capsule 50 mg PO QID 30 Days Qty: 120 0RF (DME) lancets [CardShark Poker ProductsTouch SureSoft Lancing Dev] 28 gauge misc See Rx Instructions .Route Qty: 100 4RF Rx Instructions: As directed BID (DME) blood-glucose meter [OneTouch Verio Flex Start] Kit See Rx Instructions .Route Qty: 1 0RF Rx Instructions: As directed (DME) OneTouch Verio test strips Strip See Rx Instructions .Route Qty: 100 4RF Rx Instructions: As directed BID pramipexole 0.25 mg tablet 1 tab PO BID levothyroxine 50 mcg tablet 1 tab PO DAILY metformin 500 mg tablet 1 tab PO BID citalopram 10 mg tablet 1 tab PO DAILY albuterol sulfate 90 mcg/actuation HFA aerosol inhaler 2 puff INHALATION Q4-6H PRN (Reason: wheezing)
--- NOTE | 2022-11-22 14:55 | HO.PHP ---
Jaja attended a small portion of the first group, in which she informed [facility] staff that she had to utilize the bathroom. Jaja was gone for an extended period of time, in which [facility] staff went to check on Jaja to make sure she was safe. Jaja was in the kitchen and stated she did not want to interupt group and was awaiting on her son's call back to see if he could transport her to [facility] for an evaluation. Jaja talked about some of her struggles in her relationships right now. [facility] staff reviewed with Jaja another plan if her son is not answering his phone and asked if she had other supports to come and pick her up. Jaja noted that her other son can transfer money to her bank so she can take an uber there. [facility] staff asked if she was willing to reach out to her . Jaja was emotional and agreed to reaching out to her as long as [facility] staff members communicate what is occurring. [facility] staff were receptive and sat wit Jaja while they reached out to Jaja's . Jaja's did not answer the phone and a message was left. Jaja stated she did not want to return to group and waited in group room c, while awaiting a returned phone call. [facility] staff continuously checked in with Jaja. [facility] staff asked Jaja 30 minutes later if we can reach out to her again. Jaja stated that she was texting him now and we didn't need to reach out again. Jaja informed [facility] staff that she will make the staff aware what the plan is. Jaja checked in with staff members and stated that her is on his way and she is going to meet him outside. [facility] staff was receptive and offered to walk her outside. Jaja declined the offer and stated he won't be here for another 30 minutes and she would like to get fresh air. Jaja noted that she will either call the [facility] staff or have her reach out to make them aware that she is at [facility] awaiting an evaluation. [facility] staff were receptive.
== END 2022-11-22 23:59 | disposition home or self-care (01) ==
LOC: HO.PHPA 09:30
PROVIDERS: Psychiatry & Neurology Psychiatry; Visit Provider Psychiatry & Neurology Psychiatry
DX: F31.81 Bipolar II disorder (principal); F31.32 Bipolar disorder, current episode depressed, moderate; F90.9 Attention-deficit hyperactivity disorder, unspecified type; G25.81 Restless legs syndrome; F19.10 Other psychoactive substance abuse, uncomplicated; Z79.899 Other long term (current) drug therapy
CPT/HCPCS: 80307; 90791; 90853

== ENCOUNTER 2022-12-07 07:12 | Outpatient (REF) | payer MEDICARE, MEDICAID, SELFPAY | END 2022-12-07 07:13 | disposition home or self-care (01) | LOC: HO.HOSX 07:12 | PROVIDERS: Visit Provider Physician Assistant | DX: Z13.89 Encounter for screening for other disorder (principal) ==

== ENCOUNTER 2022-12-23 08:49 | Outpatient (REF) | payer MEDICARE, MEDICAID, SELFPAY | END 2022-12-23 08:50 | disposition home or self-care (01) | LOC: HO.HOSX 08:49 | PROVIDERS: Visit Provider Physician Assistant | DX: Z13.89 Encounter for screening for other disorder (principal) ==

== ENCOUNTER 2023-02-23 13:07 | Outpatient (REF) | payer MEDICARE, SELFPAY ==
[2023-02-23 15:13] LABS: TSH reflex Free T4 3.94 uIU/mL (0.32-4.0)
== END 2023-02-23 13:08 | disposition home or self-care (01) ==
LOC: HO.LAB 13:07
PROVIDERS: PCP Nurse Practitioner Family; Visit Provider Nurse Practitioner Family
DX: E03.9 Hypothyroidism, unspecified (principal)
CPT/HCPCS: 36415; 84443

== ENCOUNTER 2023-03-15 08:59 | Outpatient (REF) | payer MEDICARE, SELFPAY ==
--- NOTE | ~2023-03-15 | XR_ITS ---
EXAMINATIONS: BILATERAL KNEES 3 VIEWS and AP weightbearing view bilaterally CLINICAL INFORMATION: Pain COMPARISON: 06/12/2014 right knee and bilateral knees TECHNIQUE: AP, lateral, oblique views of each knee were obtained. FINDINGS: Weightbearing view demonstrate mild narrowing of medial compartment of right knee joint with varus deformity. Left knee demonstrate mild spurring causing medial tibial plateau and medial femoral condyle. There is no evidence of joint effusion bilaterally. Patellofemoral compartments are preserved. XR/XR knee LT 2V IMPRESSION: Mild degenerative changes in the medial compartment of right knee joint.
--- NOTE | ~2023-03-15 | XR_ITS ---
EXAMINATIONS: BILATERAL KNEES 3 VIEWS and AP weightbearing view bilaterally CLINICAL INFORMATION: Pain COMPARISON: 06/12/2014 right knee and bilateral knees TECHNIQUE: AP, lateral, oblique views of each knee were obtained. FINDINGS: Weightbearing view demonstrate mild narrowing of medial compartment of right knee joint with varus deformity. Left knee demonstrate mild spurring causing medial tibial plateau and medial femoral condyle. There is no evidence of joint effusion bilaterally. Patellofemoral compartments are preserved. XR/XR knee standing BI IMPRESSION: Mild degenerative changes in the medial compartment of right knee joint.
--- NOTE | ~2023-03-15 | XR_ITS ---
EXAMINATIONS: BILATERAL KNEES 3 VIEWS and AP weightbearing view bilaterally CLINICAL INFORMATION: Pain COMPARISON: 06/12/2014 right knee and bilateral knees TECHNIQUE: AP, lateral, oblique views of each knee were obtained. FINDINGS: Weightbearing view demonstrate mild narrowing of medial compartment of right knee joint with varus deformity. Left knee demonstrate mild spurring causing medial tibial plateau and medial femoral condyle. There is no evidence of joint effusion bilaterally. Patellofemoral compartments are preserved. XR/XR knee RT 2V IMPRESSION: Mild degenerative changes in the medial compartment of right knee joint.
== END 2023-03-15 09:00 | disposition home or self-care (01) ==
LOC: HO.HOSX 08:59
PROVIDERS: Visit Provider Physician Assistant
DX: M17.0 Bilateral primary osteoarthritis of knee (principal); E11.9 Type 2 diabetes mellitus without complications
CPT/HCPCS: 20610; 73560; 73565; 99212; J1020

== ENCOUNTER 2023-03-15 09:27 | Outpatient (AMB) | payer OTHER, MEDICAID, SELFPAY ==
--- NOTE | 2023-03-15 09:36 | MHC.OFFVIS ---
Intake Vital Signs 03/15/23 09:44 Height 5 ft 1 in Weight 115 lb BMI 21.7 Intake Visit Reasons: Newprob-B/L knee pain Intake Note: Jaja is a 62 year old female who presents today for a evaluation for her bilateral knee pain, last injection in the left knee 08/02/22. Patient reports her last injection gave her 3-4 months of relief. She states that her left knee is worse than the right. Pain is all on the knee and it stays there. She states that her knee pain is affecting her every day life and causing her back to hurt. Allergies olanzapine [From ZYPREXA] Adverse Reaction (Intermediate, Verified 03/15/23 09:44) RLS symptoms clonidine Adverse Reaction (Verified 03/15/23 09:44) RLS diphenhydramine [From Benadryl] Adverse Reaction (Verified 03/15/23 09:44) RLS hydroxyzine Adverse Reaction (Verified 03/15/23 09:44) RLS melatonin Adverse Reaction (Verified 03/15/23 09:44) RLS atypical antipsychotics Adverse Reaction (Severe, Uncoded 02/25/23 09:58) This class appears to potentiate RLS/Akathesia HPI Newprob-B/L knee pain HPI Details 62-year-old female who presents in the office today for an evaluation of bilateral knee pain. The patient has a cortisone injection on 08/02/2022 in her left knee, which gave her 3-4 months of relief. She claims her left knee is worse then her right knee. She states the pain is through out the entire knee and does not radiate. She reports the pain is affecting her daily activities and causes her back to hurt. Patient has a medical history of diabetes mellitus. [facility] Medical History Benzodiazepine abuse Bipolar II disorder Cannabis use disorder, moderate, dependence COPD (chronic obstructive pulmonary disease) Fibromyalgia HLD (hyperlipidemia) Hypothyroidism Osteoporosis RLS (restless legs syndrome) Smoker Type II diabetes mellitus Surgical History H/O: hysterectomy Family History Mother No problems noted. Father No problems noted. Son Substance use disorder Social History Household Members: Spouse Household Members Other:: son's girlfriend Housing: House Do you presently have visiting nurse or other home services: No Alcohol intake: never Patient Tobacco Use Status: Current everyday Tobacco user Tobacco use type: Cigarette Cigarette Packs Per Day: 0.5 Cigarettes Per Day: 11 Years Smoked: Since age 22 e-Cigarette/Vaping Use: Currently Using Second Hand Smoke Exposure: Yes Substance Use Type: Marijuana service: No Current occupational status: employed Sexual orientation: Straight/Heterosexual Cognitive needs: No Hearing needs: No Vision needs: No Review of Systems Const All systems reviewed & are unremarkable except as noted in HPI and below Physical Exam Vital Signs: BMI result Body Mass Index 21.7 Const General: cooperative, healthy appearing and no acute distress Resp Effort & Inspection: normal respiratory effort and able to speak in complete sentences Cardio Rate: regular rate Peripheral pulses: Peripheral pulses 2+ throughout GI Palpation (GI): Soft to palpation Skin Lesions: no lesions Rashes: no rashes Extrem Other: Bilateral knees: Normal to inspection. No ecchymosis, erythema, or joint effusion. No tenderness to palpation to the medial or lateral joint lines. Full knee extension and flexion. Mild crepitus with ROM. Negative Michele's. NVI. Office Procedures Joint Injection/Drain Joint Injection/Drain Primary Site: right knee Secondary Site: left knee Injected: 40 mg of, DepoMedrol, with 8 mL of (2% plain lido ) and in the joint Approach Used: anterolateral Procedure: The patient tolerated the procedure well, but had some pain with the injection and there was some relief with the local anesthesia Coding 67047 - Large joint Procedure code (CPT) selection complete Results Reviewed Results Reviewed: 03/15/23 09:56 Lidocaine HCl 2 % MPF [Xylocaine 2 % MPF] 5 ml .ROUTE .STK-MED ONE methylPREDNISolone acetate [DEPO-MedroL] 40 mg .ROUTE .STK-MED ONE Assessment & Plan Assessment & Plan (1) Osteoarthritis of right knee: Code(s): M17.11 - Unilateral primary osteoarthritis, right knee (2) Osteoarthritis of left knee: Code(s): M17.12 - Unilateral primary osteoarthritis, left knee (3) Diabetes mellitus: Code(s): E11.9 - Type 2 diabetes mellitus without complications Plan Ms. Beebe is a 62-year-old female who presents in the office today for an evaluation of bilateral knee pain. The patient has a cortisone injection on 08/02/2022 in her left knee, which gave her 3-4 months of relief. She claims her left knee is worse then her right knee. She states the pain is through out the entire knee and does not radiate. She reports the pain is affecting her daily activities and causes her back to hurt. Patient has a medical history of diabetes mellitus. The patient was offered a cortisone injection in the bilateral knees with 40 mg of DepoMedrol. The patient was explained the risk, benefits, and alternatives to receiving this injection. After receiving consent for the injection, the patient had the procedure done while in office today. The patient tolerated the procedure well with no complications. Due to the patient?s history of diabetes, they were instructed to monitor her blood glucose level. The patient was informed that they could see a rise in their numbers and if the numbers became too high, they were instructed to call their PCP. The patient was also informed that they could have facial flushing as a side effect of the injection but this will pass. Follow up will be PRN, or sooner if needed. X-rays of the bilateral knees which were obtained while in the office today and were reviewed by me, Helene Ruiz PA-C, revealed mild osteoarthritis bilaterally. Orders: Orders XR knee LT 2V Today M25.569 - Pain in unspecified knee XR knee RT 2V Today M25.569 - Pain in unspecified knee XR knee standing BI Today M25.569 - Pain in unspecified knee Patient Instructions: Scribed for Helene Ruiz PA-C by Anel Kumar diagnostic medical sonographer, on 03/15/2023 at 9:29 am, EST. Your attestation Coding Level of Care Code Est Pt Level 4 (06862) Diagnoses Osteoarthritis of right knee M17.11 Osteoarthritis of left knee M17.12 Diabetes mellitus E11.9 CPT Codes Coding - 72013 Large joint: 90481 - Large joint ([id number])
[2023-03-15 09:44] VITALS: BMI 21.7
== END 2023-03-15 11:24 | disposition home or self-care (01) ==
PROVIDERS: PCP Nurse Practitioner Family; Visit Provider Physician Assistant
DX: M17.0 Bilateral primary osteoarthritis of knee (principal); E11.9 Type 2 diabetes mellitus without complications
CPT/HCPCS: 20610; 99214

== ENCOUNTER 2023-04-28 13:02 | Outpatient (AMB) | payer OTHER, SELFPAY ==
--- NOTE | 2023-04-28 13:07 | A.OFFVIS_ITS ---
Intake Vital Signs 04/28/23 13:08 Height 5 ft 1 in Weight 112 lb BMI 21.2 BP 92/52 L Blood Pressure Location Lt brachial Position Sitting Pulse 70 Pulse Source Pulse Oximeter Pulse Oximetry (%) 96 Oxygen Delivery Method Room Air Intake Visit Reasons: COPD Intake Note: pt is here for follow up and states she is feeling good, only issues in bad weather, pt would like name brand Ventolin, she states this works better than generic albuterol Jockey Valet Required: No Allergies olanzapine [From ZYPREXA] Adverse Reaction (Intermediate, Verified 04/28/23 13:39) RLS symptoms clonidine Adverse Reaction (Verified 04/28/23 13:39) RLS diphenhydramine [From Benadryl] Adverse Reaction (Verified 04/28/23 13:39) RLS hydroxyzine Adverse Reaction (Verified 04/28/23 13:39) RLS melatonin Adverse Reaction (Verified 04/28/23 13:39) RLS atypical antipsychotics Adverse Reaction (Severe, Uncoded 04/28/23 13:39) This class appears to potentiate RLS/Akathesia Medication List - Last Reconciled 04/28/23 by Zayra Ariza MD blood sugar diagnostic (Categorical Verio test strips) As directed BID blood-glucose meter (Categorical Verio Flex Start kit) As directed lancets ([employer] Lancing Devices) As directed BID levothyroxine 50 mcg PO DAILY 30 days metformin 1 tab PO BID mirtazapine 7.5 mg PO BEDTIME pramipexole 1 tab PO BID pregabalin 50 mg PO QID 30 days Ventolin HFA 90 mcg/actuation (albuterol sulfate) 2 puffs inhalation Q4-6H PRN NS Do you need a note to return to daycare/school/sports/work: No HPI COPD HPI Details This 62 years old female may long-time patient of mine, with history of bronchial asthma, anxiety and bipolar disorder. Comes for follow-up. for her bronchial asthma She gets frequent attacks of cough and wheezing usually when there is a change in the weather. Otherwise she has remained very stable. Does smoke , 6-8 cigarettes a day, tries to cut down but sometime has to increase the number of cigarettes due to anxiety. Her anxiety level has been low. She tends to use Ventolin sometimes more frequently. She say is the plane albuterol does not help her much and she prefers to use the brand name Ventolin. [facility] Medical History Type II diabetes mellitus Smoker Fibromyalgia Cannabis use disorder, moderate, dependence Benzodiazepine abuse Osteoporosis Hypothyroidism Bipolar II disorder RLS (restless legs syndrome) COPD (chronic obstructive pulmonary disease) HLD (hyperlipidemia) Surgical History H/O: hysterectomy Family History Mother No problems noted. Father No problems noted. Son Substance use disorder Social History Household Members: Spouse Household Members Other:: son's girlfriend Housing: House Do you presently have visiting nurse or other home services: No Alcohol intake: never Patient Tobacco Use Status: Current everyday Tobacco user Tobacco use type: Cigarette Cigarette Packs Per Day: 0.5 Cigarettes Per Day: 8 Years Smoked: Since age 22 e-Cigarette/Vaping Use: Currently Using Second Hand Smoke Exposure: Yes Substance Use Type: Marijuana service: No Current occupational status: employed Sexual orientation: Straight/Heterosexual Cognitive needs: No Hearing needs: No Vision needs: No Review of Systems Const All systems reviewed & are unremarkable except as noted in HPI and below Eyes Reports no additional complaints ENT Reports no additional complaints Card Denies chest pain, Denies irregular heart rhythm and Denies leg edema Resp Reports as per HPI GI Reports no additional complaints Reports no additional complaints Musc Reports back pain (Chronic) Skin/Breast Reports system reviewed and no additional complaints, except as documented Neuro Reports no additional complaints Psych Reports anxiety, Reports mood swings and Reports other (Bipolar disorder) Endo Reports other (Hypothyroidism) Anthony/Lymph Reports no additional complaints Aller/Immun Reports no additional complaints Physical Exam Vital Signs: Last Vital Signs Pulse 70 04/28/23 13:08 BP 92/52 L 04/28/23 13:08 Pulse Ox 96 04/28/23 13:08 Oxygen Delivery Method Room Air 04/28/23 13:08 BMI result Body Mass Index 21.2 Patient is of a thin build, underweight, but physically active and appropriate Const General: healthy appearing (except for being underweight ), comfortable, no acute distress, alert and awake Orientation/consciousness: patient oriented x3 HEENT Head: Yes normal to inspection General nose exam: No nasal polyps present and No nasal discharge present Face and sinus: Yes sinuses nontender Mouth: oropharynx normal Throat: Yes posterior oropharynx normal Eyes General: appearance normal, both eyes and all related structures Neck Neck: Yes normal visual inspection, Yes no lymphadenopathy, Yes trachea midline and Yes no JVD Thyroid: Thyroid normal Chest Chest palpation & inspection: normal inspection of the chest, normal palpation of entire chest wall and no tenderness Resp Effort & Inspection: normal respiratory effort Auscultation: clear to auscultation bilaterally, no crackles, no rhonchi and no wheezes Cardio Palpation: normal PMI Rate: regular rate Rhythm: regular rhythm Heart sounds: no gallops and no murmurs Peripheral pulses: Peripheral pulses 2+ throughout GI Palpation (GI): Soft to palpation, nontender, No hepatosplenomegaly present and no masses Auscultation: normal bowel sounds Back/Spine/Pelvis Thoracic/Lumbar Spine: thoracic and lumbar spine normal to inspection Skin General skin exam: no rashes or lesions noted Neuro General: patient oriented x3 and no focal motor deficits Cranial nerves: Yes CN's II-XII intact bilaterally Extrem General: Yes normal to inspection, Yes no clubbing, cyanosis or edema and Yes no calf tenderness Psych Appearance: grossly normal and well kempt Speech and movement: Normal speech and movement present Assessment & Plan Assessment & Plan (1) Smoker: Comment: SHE HAS CUT DOWN THE SMOKING, SMOKING ONLY ABOUT 6-8 CIGARETTES A DAY NOW. COUNSELED THAT SHE SHOULD QUIT COMPLETELY. BUT IN FACE OF BIPOLAR DISORDER AND HER ONGOING ANXIETY, IT IS SOMEWHAT DIFFICULT FOR HER TO QUIT COMPLETELY. Code(s): F17.200 - Nicotine dependence, unspecified, uncomplicated (2) COPD (chronic obstructive pulmonary disease): Comment: SHE HAS A VERY MILD SMALL AIRWAY OBSTRUCTIVE DISORDER, INDICATING A VERY VERY MILD COPD. NO ACTIVE TREATMENT NEEDED EXCEPT FOR SABD. PRN AGAIN STRESSED THAT SHE SHOULD STOP SMOKING. TX: VENTOLIN HFA 2 PUFFS Q 4-6 HRS PRN EDUCATED TO AVOID EXCESSIVE USE. Code(s): J44.9 - Chronic obstructive pulmonary disease, unspecified Medications: Refilled Ventolin HFA 90 mcg/actuation (albuterol sulfate) 2 puffs inhalation Q4-6H PRN 18 grams 5RF for wheezing NS Coding Level of Care Code Est Pt Level 3 (33769) Diagnoses Smoker F17.200 COPD (chronic obstructive pulmonary disease) J44.9
[2023-04-28 13:08] VITALS: BP 92/52; PULSE 70; O2SAT 96; BMI 21.2
== END 2023-04-28 13:47 | disposition home or self-care (01) ==
PROVIDERS: PCP Nurse Practitioner Family; Visit Provider Internal Medicine
DX: F17.200 Nicotine dependence, unspecified, uncomplicated (principal); J44.9 Chronic obstructive pulmonary disease, unspecified
CPT/HCPCS: 99213

== ENCOUNTER → 2023-04-28 13:02 | Outpatient (BNVA) | payer OTHER, MEDICAID, SELFPAY | PROVIDERS: PCP Nurse Practitioner Family; Visit Provider Internal Medicine ==

== ENCOUNTER 2023-05-18 08:40 | Outpatient (AMB) | payer OTHER, SELFPAY ==
--- NOTE | 2023-05-18 09:30 | MHC.OFFWIV ---
Intake Vital Signs 05/18/23 09:32 Weight 50.349 kg BP 110/66 Blood Pressure Location Lt brachial Position Sitting Pulse 100 Pulse Source Pulse Oximeter Temp 97.2 F Temp Source Temporal Artery Scan Pulse Oximetry (%) 96 Oxygen Delivery Method Room Air Intake Visit Reasons: [phone] Intake Note: Patient here for possible sinus infection and ear infection that has been present since tuesday night. She states she is flying on tuesday. Patient Tobacco Use Status: Current everyday Tobacco user Allergies olanzapine [From ZYPREXA] Adverse Reaction (Intermediate, Verified 05/18/23 09:33) RLS symptoms clonidine Adverse Reaction (Verified 05/18/23 09:33) RLS diphenhydramine [From Benadryl] Adverse Reaction (Verified 05/18/23:33) RLS hydroxyzine Adverse Reaction (Verified 05/18/23 09:33) RLS melatonin Adverse Reaction (Verified 05/18/23:33) RLS atypical antipsychotics Adverse Reaction (Severe, Uncoded 05/18/23 09:33) This class appears to potentiate RLS/Akathesia Do you need a note to return to daycare/school/sports/work: No HPI HPI Comments History of Present Illness Details 1000 This is a 62-year-old female history of depression, anxiety, cocaine use disorder, bipolar disorder presenting with sinus congestion, fatigue, malaise, dry cough, frontal headache bandlike, bilateral ear discomfort x3 days worsening. Patient reports it feels like she has a sinus infection. She would like to get this treated before her trip on Tuesday. Patient denies fevers, chills, nausea, vomiting, chest pain, shortness of breath, vision changes, dizziness, weakness. Physical examination discomfort with palpation of facial sinuses and pressure to face with forward bending. Bilateral tympanic membranes ear canals intact. Likely sinusitis versus viral illness. Unlikely pneumonia, PE, headache likely secondary to sinusitis unlikely intracranial hemorrhage, stroke, posterior stroke. Plan will discharge home on Augmentin, prednisone, albuterol. Educated patient on diagnosis and treatment plan, answered all question, patient verbalizes understanding. At this time patient will be discharged home, advised to return with new or worsening symptoms. Educated on worrisome signs and symptoms and when to return. At this time I feel comfortable discharge home., [facility] Medical History Type II diabetes mellitus Smoker Fibromyalgia Cannabis use disorder, moderate, dependence Benzodiazepine abuse Osteoporosis Hypothyroidism Bipolar II disorder RLS (restless legs syndrome) COPD (chronic obstructive pulmonary disease) HLD (hyperlipidemia) Surgical History H/O: hysterectomy Family History Mother No problems noted. Father No problems noted. Son Substance use disorder Social History Household Members: Spouse Household Members Other:: son's girlfriend Housing: House Do you presently have visiting nurse or other home services: No Alcohol intake: never Patient Tobacco Use Status: Current everyday Tobacco user Tobacco use type: Cigarette Cigarette Packs Per Day: 0.5 Cigarettes Per Day: 8 Years Smoked: Since age 22 e-Cigarette/Vaping Use: Currently Using Second Hand Smoke Exposure: Yes Substance Use Type: Marijuana service: No Current occupational status: employed Sexual orientation: Straight/Heterosexual Cognitive needs: No Hearing needs: No Vision needs: No Review of Systems Const Details: Constitutional : No Weight loss, No Fever, No Chills, + Fatigue, + Malaise ENT/Mouth : No sore throat, No Rhinorrhea, + sinus congestion Eyes: No Eye Pain, No Swelling, No Redness Cardiovascular : No Chest Pain, No SOB, No Dyspnea on Exertion, No Orthopnea, No Edema, No Palpitations Respiratory : + Cough, No Sputum, No Wheezing Gastrointestinal : No Nausea, No Vomiting, No Diarrhea, No Constipation, No abdominal Pain, No Hematochezia, No Melena Genitourinary : No Dysuria, No Urinary Frequency, No Hematuria, Musculoskeletal : No joint pain, No Myalgias, No Joint Swelling Skin : No Skin Lesions, No rash Neuro : No Weakness, No Numbness, No Dizziness, No Headache Psych : No Anxiety/Panic, No Depression All other systems reviewed and are negative All systems reviewed & are unremarkable except as noted in HPI and below Physical Exam Vital Signs: Last Vital Signs Temp 97.2 F 05/18/23 09:32 Pulse 100 05/18/23 09:32 BP 110/66 05/18/23 09:32 Pulse Ox 96 05/18/23 09:32 Oxygen Delivery Method Room Air 05/18/23 09:32 vss Appearance: Alert.? Oriented X3.? No acute distress.? Head: Normocephalic, atraumatic, no step-offs or deformities. Discomfort with palpation of facial sinuses. Pressure to face with forward bending. Eyes: Pupils equal, round and reactive to light.? ENT: Pharynx normal.? Neck: Normal inspection.? Neck supple.? CVS: Normal heart rate and rhythm.? Pulses normal.? Respiratory: No respiratory distress.? Breath sounds normal.? Abdomen: Soft and nontender.? Skin: Skin warm and dry.? Normal skin color.? Normal skin turgor.? Extremities: No lower extremity edema.? No calf ttp. 5/5 strength to bilateral upper and lower extremities Neuro: Oriented X 3.? No motor deficit.? No sensory deficit. CN 2-12 intact Results AMB Rapid Strep AMB Rapid Strep Negative Last Edit by SUZIE Delgado on 05/18/23 10:07 Results Reviewed Results Reviewed: Laboratory Last Values Strep Scn Rapid Clinic Negative 05/18/23 10:06 Assessment & Plan Assessment & Plan (1) Sinusitis: Code(s): J32.9 - Chronic sinusitis, unspecified Plan Take your medications as prescribed. If you were prescribed antibiotics today, it is important that you take your medication to their entirety, do not skip any doses, do not finish them early. Follow-up with your primary care provider this week. Return to the emergency department with new or worsening symptoms. Such as fevers, chills, chest pain, shortness of breath, nausea, vomiting, dizziness, headache, vision changes, lethargy In case of emergency call 911 Orders: Orders AMB Rapid Strep Screen Today Z13.9 - Encounter for screening, unspecified Medications: New albuterol sulfate 90 mcg/actuation 2 puffs inhalation Q6H PRN 6.7 grams 0RF shortness of breath or wheezing doxycycline hyclate 100 mg PO BID 14 caps 0RF 7 days prednisone 40 mg (2 x 20 mg) PO DAILY 10 tabs 0RF 5 days Coding Level of Care Code Est Pt Level 3 (79133) Diagnoses Sinusitis J32.9
[2023-05-18 09:32] VITALS: BP 110/66; PULSE 100; TEMP 36.2; O2SAT 96
== END 2023-05-18 10:47 | disposition home or self-care (01) ==
PROVIDERS: PCP Nurse Practitioner Family; Visit Provider Physician Assistant
DX: J32.9 Chronic sinusitis, unspecified (principal); J02.9 Acute pharyngitis, unspecified
CPT/HCPCS: 87880; 99213

== ENCOUNTER 2023-05-24 15:41 | Outpatient (AMB) | payer OTHER, SELFPAY ==
[2023-05-24 15:49] VITALS: BP 118/66; PULSE 84; RESP 12; TEMP 36.6; O2SAT 98; BMI 20.5
--- NOTE | 2023-05-24 15:49 | MHC.PC.OV ---
Vital Signs 05/24/23 15:49 Height 5 ft 1 in Weight 108 lb 8 oz BMI 20.5 BP 118/66 Blood Pressure Location Lt brachial Position Sitting Respiration 12 Pulse 84 Pulse Source Pulse Oximeter Temp 97.8 F Temp Source Temporal Artery Scan Pulse Oximetry (%) 98 Oxygen Delivery Method Room Air Intake Visit Reasons: RASH ON HANDS Intake Note: Patient states that she took a trip to [place] and went for a dive in the water and as soon as she hit the water she states that she instantly started feeling tingling everywhere on body. Patient states that she went into a salt hot tub after being in water and experienced the same thing. Patient states that on her hand it almost looks like theres a legion or burn on her hands. Patient states that shes been experiencing a echo in her ear and states that it felt sore before her trip and now she states that her left ear still feels weird. Institutional Research Director Required: No Accompanied by: Self / Same As Patient Allergies olanzapine [From ZYPREXA] Adverse Reaction (Intermediate, Verified 05/24/23 16:16) RLS symptoms clonidine Adverse Reaction (Verified 05/24/23 16:16) RLS diphenhydramine [From Benadryl] Adverse Reaction (Verified 05/24/23 16:16) RLS hydroxyzine Adverse Reaction (Verified 05/24/23 16:16) RLS melatonin Adverse Reaction (Verified 05/24/23 16:16) RLS atypical antipsychotics Adverse Reaction (Severe, Uncoded 05/24/23 16:16) This class appears to potentiate RLS/Akathesia Medication List - Last Reconciled 05/24/23 by Christi Rivero CNP albuterol sulfate 90 mcg/actuation 2 puffs inhalation Q6H PRN blood sugar diagnostic ([employer] Verio test strips) As directed BID blood-glucose meter ([employer] Verio Flex Start kit) As directed doxycycline hyclate 100 mg PO BID 7 days lancets ([employer] Lancing Devices) As directed BID levothyroxine 50 mcg PO DAILY 30 days metformin 1 tab PO BID mirtazapine 15 mg PO BEDTIME pramipexole 1 tab PO BID prednisone 40 mg (2 x 20 mg) PO DAILY 5 days pregabalin 50 mg PO QID 30 days Ventolin HFA 90 mcg/actuation (albuterol sulfate) 2 puffs inhalation Q4-6H PRN NS Tobacco use date assessed: 02/25/23 Dental Screening Dental Screen Date: 05/24/23 Did you have a dental visit in the last 12 months?: Yes Did you have a dental problem in the last 6 months where you did not have access to dental care?: No Was dental information given to patient?: Patient has dentist HPI HPI Comments History of Present Illness Details 62-year-old female presents with complaints of a rash to her hands and lower legs. She notes that her symptoms started immediately after she took a dive in the water at [place] 5 days ago. She notes that she experienced a tingling sensation in her entire body which completely subsided. She reports a burning sensation to the fingers of both hands. She notes that she started using hydrocortisone cream last night with some relief. [facility] Medical History Type II diabetes mellitus Smoker Fibromyalgia Cannabis use disorder, moderate, dependence Benzodiazepine abuse Osteoporosis Hypothyroidism Bipolar II disorder RLS (restless legs syndrome) COPD (chronic obstructive pulmonary disease) HLD (hyperlipidemia) Surgical History H/O: hysterectomy Family History Mother No problems noted. Father No problems noted. Son Substance use disorder Social History Household Members: Spouse Household Members Other:: son's girlfriend Housing: House Do you presently have visiting nurse or other home services: No Alcohol intake: never Patient Tobacco Use Status: Current everyday Tobacco user Tobacco use type: Cigarette Cigarette Packs Per Day: 0.5 Cigarettes Per Day: 8 Years Smoked: Since age 22 e-Cigarette/Vaping Use: Never Used Second Hand Smoke Exposure: Yes Substance Use Type: Marijuana service: No Current occupational status: employed Sexual orientation: Straight/Heterosexual Cognitive needs: No Hearing needs: No Vision needs: No Questionnaire Thrive Questionnaire Date Thrive assessed: 02/11/21 MARY-7 AMB Questionnaire MARY-7 Date MARY - 7 assessed: 08/28/21 Source: Developed by Drs. Darion Garcia, Wilma Slater, Vernon Mayorga and colleagues, with an educational eloy from [employer]. Review of Systems Const Details: Const Denies chills, Denies fatigue, Denies fever(s), Denies headache(s) and Denies weakness ENT Denies dizziness and Denies headache(s) Card Denies chest pain, Denies lightheadedness, Denies dyspnea and Denies other (Palpitations) Resp Denies cough, Denies dyspnea, Denies wheezing and Denies other ( shortness of breath) GI Denies abdominal pain, Denies melena, Denies hematochezia, Denies change in bowel habits, Denies dyspepsia and Denies nausea Denies hematuria and Denies dysuria Musc Denies abnormal gait, Denies myalgias, Denies arthralgias, Denies numbness and Denies tingling Skin/Breast Reports as per HPI Neuro Denies abnormal gait, Denies dizziness, Denies headache(s), Denies memory loss, Denies numbness, Denies Sensory deficit (Neuro), Denies tingling and Denies weakness Psych Denies anxiety, Denies depression, Denies memory loss Endo Denies cold intolerance, Denies fatigue, Denies heat intolerance, Denies polydipsia and Denies polyuria Aller/Immun Denies wheezing Physical exam (Primary Care) Vital Signs: Last Vital Signs Temp 97.8 F 05/24/23 15:49 Pulse 84 05/24/23 15:49 Resp 12 05/24/23 15:49 BP 118/66 05/24/23 15:49 Pulse Ox 98 05/24/23 15:49 Oxygen Delivery Method Room Air 05/24/23 15:49 BMI result Body Mass Index 20.5 Tobacco/Smoking Status: Tobacco use Status Tobacco use date assessed 02/25/23 05/24/23 16:00 Patient Tobacco Use Status Current everyday Tobacco 05/24/23 16:00 Tobacco use type Cigarette 05/24/23 16:00 e-Cigarette/Vaping Use Never Used 05/24/23 16:00 Thrive Assessment: Date of Thrive Assessment Date Thrive assessed 02/11/21 05/24/23 16:00 Const Other: General: no acute distress and well developed Nutritional Appearance: well nourished Orientation/consciousness: patient oriented x3 HENMT Head: Yes normocephalic and Yes atraumatic Eyes General: appearance normal, both eyes and all related structures Pupils: Equal, round and reactive pupils present EOM: EOMs intact bilaterally Resp Effort & Inspection: normal respiratory effort Auscultation: clear to auscultation bilaterally Cardio Rate: regular rate Rhythm: regular rhythm Heart sounds: S1 normal heart sound present, S2 normal heart sound present, no gallops, no murmurs and no rubs GI Palpation (GI): No Abdominal aortic bruit present, Soft to palpation, nontender, No hepatosplenomegaly present and No Rebound tenderness present Auscultation: normal bowel sounds General: Yes no CVA tenderness Back/Spine/Pelvis Back: no CVA tenderness Cervical Spine: cervical ROM normal and No Cervical spine tenderness Thoracic/Lumbar Spine: thoraco-lumbar ROM normal, No pain with thoraco-lumbar ROM, No thoracic spinal tenderness and No lumbar spinal tenderness Extrem General: Yes normal to inspection, No edema and No calf tenderness Skin General: warm and dry. Normal skin color. Normal skin turgor Lesions: no lesions Rashes: Red, non-raised areas on hands and lower legs. No open areas, edema, or infection noted Trauma: no lacerations or abrasions Wounds: no wounds Nails: normal Neuro General: patient oriented x3, gait normal and no focal neuro deficit Cranial nerves: Yes Equal, round and reactive pupils present Cognition (Neuro): normal cognition Gait exam (Neuro): Normal gait present Sensory Exam: No Sensory deficit (Neuro) Psych Appearance: grossly normal Affect: normal affect Attitude: cooperative Thought process: Normal thought process present Assessment and Plan Assessment & Plan (1) Contact dermatitis: Code(s): L25.9 - Unspecified contact dermatitis, unspecified cause Plan: Red, non-raised areas on hands and lower legs. No open areas, edema, or infection noted Appears like a mild form of contact dermatitis Continue to use hydrocortisone cream twice daily Return with worsening or new symptoms Verbalized understanding and agreed with treatment plan. Coding Level of Care Code Est Pt Level 2 (71939) Diagnoses Contact dermatitis L25.9
== END 2023-05-24 16:46 | disposition home or self-care (01) ==
PROVIDERS: PCP Nurse Practitioner Family; Visit Provider Nurse Practitioner Family
DX: L25.9 Unspecified contact dermatitis, unspecified cause (principal)
CPT/HCPCS: 99212

== ENCOUNTER 2023-06-23 08:32 | Outpatient (AMB) | payer OTHER, SELFPAY ==
--- NOTE | 2023-06-23 08:37 | A.OFFVIS_ITS ---
Intake Intake Visit Reasons: Bilateral Knee Injection - Last done 03/15/23 Intake Note: Jaja is a 62 year old female who presents today for bilateral knee injections. Last injections done 03/15/2023 with Helene were helpful and she would like to repeat injections. She is diabetic Allergies olanzapine [From ZYPREXA] Adverse Reaction (Intermediate, Verified 06/23/23 08:44) RLS symptoms clonidine Adverse Reaction (Verified 06/23/23 08:44) RLS diphenhydramine [From Benadryl] Adverse Reaction (Verified 06/23/23 08:44) RLS hydroxyzine Adverse Reaction (Verified 06/23/23 08:44) RLS melatonin Adverse Reaction (Verified 06/23/23 08:44) RLS atypical antipsychotics Adverse Reaction (Severe, Uncoded 06/23/23 08:44) This class appears to potentiate RLS/Akathesia HPI Bilateral Knee Injection - Last done 03/15/23 HPI Details Jaja is a 62 year old Diabetic woman with bilateral knee OA. She has a hx of relief from steroid injections, her last was performed on 03/15/23 by ELISE Ruiz. She complains of returning pain in her knees, R>L. She says her knees make her feel uncomfortable at times, and increased pain at the end of the day. She does not feel limited in her daily activities. She would like to repeat injections today. She is a smoker and has a hx of Fibromyalgia. [facility] Medical History Type II diabetes mellitus Smoker Fibromyalgia Cannabis use disorder, moderate, dependence Benzodiazepine abuse Osteoporosis Hypothyroidism Bipolar II disorder RLS (restless legs syndrome) COPD (chronic obstructive pulmonary disease) HLD (hyperlipidemia) Surgical History H/O: hysterectomy Family History Mother No problems noted. Father No problems noted. Son Substance use disorder Social History Household Members: Spouse Household Members Other:: son's girlfriend Housing: House Do you presently have visiting nurse or other home services: No Alcohol intake: never Patient Tobacco Use Status: Current everyday Tobacco user Tobacco use type: Cigarette Cigarette Packs Per Day: 0.5 Cigarettes Per Day: 8 Years Smoked: Since age 22 e-Cigarette/Vaping Use: Never Used Second Hand Smoke Exposure: Yes Substance Use Type: Marijuana service: No Current occupational status: employed Sexual orientation: Straight/Heterosexual Cognitive needs: No Hearing needs: No Vision needs: No Review of Systems Const All systems reviewed & are unremarkable except as noted in HPI and below Physical Exam Const General: no acute distress, alert and awake Orientation/consciousness: patient oriented x3 HEENT Head: Yes normocephalic and Yes atraumatic Mouth: moist mucous membranes Eyes General: appearance normal, both eyes and all related structures EOM: EOMs intact bilaterally Chest Other: no audible wheezing. Resp Other: No audible wheezing Effort & Inspection: normal respiratory effort and able to speak in complete sentences Cardio Other: Radial pulse palpable with no rythmic abnormalities Jugular venous distension: no JVD Back/Spine/Pelvis Cervical Spine: normal cervical lordosis Skin General skin exam: turgor normal Rashes: no rashes Neuro General: patient oriented x3 Extrem Other: Bilateral Knees: Skin C/D/I No effusion TTP MJL R>L Psych Appearance: grossly normal Mental Status: mental status grossly normal Speech and movement: Normal speech and movement present Affect: normal affect Attitude: cooperative Office Procedures Joint Injection/Drain Joint Injection/Drain Details: Injected 1 mL of Decadron and 3 mL 1% lidocaine and 3 mL of 0.25% Marcaine. S ite was prepped using aseptic technique. Patient tolerated the procedure well. Primary Site: right knee Secondary Site: left knee Approach Used: anterolateral Coding - Large joint - Glenohumeral/Tronchanteric Bursa/Intraarticular Procedure code (CPT) selection complete Results Reviewed Results Reviewed: 06/23/23 08:41 BUPivacaine MPF 0.25 % [Sensorcaine-MPF 0.25% 10 ML] 10 ml .ROUTE .STK-MED ONE Lidocaine HCl 1 % [Xylocaine 1 %] 2 ml .ROUTE .STK-MED ONE Lidocaine HCl 2 % MPF [Xylocaine 2 % MPF] 5 ml .ROUTE .STK-MED ONE dexAMETHasone sod phosphate [Decadron] 4 mg .ROUTE .STK-MED ONE I personally reviewed relevant radiographs Mild degenerative changes in the medial compartment of right knee joint. Assessment & Plan Assessment & Plan (1) Osteoarthritis of right knee: Code(s): M17.11 - Unilateral primary osteoarthritis, right knee Plan: This is a 62 year old woman with mild bilateral knee OA & pain, R>L. She has pain with daily activity, which is worse by the end of the day, and a hx of relief from steroid injections in the past. Her most recent was on 03/15/23 bilaterally. I discussed her diagnosis and treatment options. I injected her bilateral knees today, which she tolerated well. She can follow up in 3 months for repeat injections. (2) Osteoarthritis of left knee: Code(s): M17.12 - Unilateral primary osteoarthritis, left knee (3) Diabetes mellitus: Code(s): E11.9 - Type 2 diabetes mellitus without complications Plan: I discussed the hyperglycemic effects of steroid injections. Plan Scribed for Martell Temple MD by Rocky Obregon, curator medical museum, on 06/23/23 at 9:00 AM, EST. Coding Level of Care Code Est Pt Level 3 (56434) Diagnoses Osteoarthritis of right knee M17.11 Osteoarthritis of left knee M17.12 Diabetes mellitus E11.9 CPT Codes Coding - 42184 Large joint: 71217 - Large joint ([id number]) Coding - Joint 7: 18434 - Glenohumeral/Tronchanteric Bursa/Intraarticular ([id number])
== END 2023-06-23 09:05 | disposition home or self-care (01) ==
PROVIDERS: PCP Nurse Practitioner Family; Visit Provider Orthopaedic Surgery
DX: M17.0 Bilateral primary osteoarthritis of knee (principal); E11.9 Type 2 diabetes mellitus without complications
CPT/HCPCS: 20610; 99213

== ENCOUNTER → 2023-06-23 08:32 | Outpatient (BNVA) | payer OTHER, SELFPAY | PROVIDERS: PCP Nurse Practitioner Family; Visit Provider Orthopaedic Surgery | DX: M17.0 Bilateral primary osteoarthritis of knee (principal); M79.7 Fibromyalgia; E11.9 Type 2 diabetes mellitus without complications | CPT/HCPCS: 20610; J0665; J1100 ==

== ENCOUNTER 2023-07-03 05:39 | Inpatient (IN) | payer OTHER, SELFPAY ==
[2023-07-03 06:04] VITALS: BP 113/72; PULSE 82; RESP 16; TEMP 36.4; O2SAT 95; BMI 20.1
--- NOTE | 2023-07-03 06:59 | PC.NURSE ---
patient sitting up in room at present seemingly awaits arrival of whos in waiting room patient appears in no distress
--- NOTE | 2023-07-03 07:10 | ED_ITS ---
HPI - General Adult General Chief complaint: Psychiatric Symptoms Stated complaint: mental health check up Time Seen by Provider: 07/03/23 06:41 Source: patient Mode of arrival: ambulatory Limitations: no limitations History of Present Illness HPI narrative: 62 year old female history of cocaine use disorder, hypothyroidism, bipolar disorder, COPD, restless legs syndrome present w/ suicidal ideation, depression, due to increasing life stressors she has been feeling sick for about a week. She reports she has no specific plan for suicide however she feels this way intermittently and is feeling this way right now. She reports that she walked in today with her significant other, she also reports recent medication changes. Her med prescriber took her off all her medications . She tells me she feels terrible. Very anxious, overwhelmed has been sleeping in her car for 2 days not eating or drinking well. No hallucinations. No homicidal ideation. No medical complaints at this time Related Data Home Medications Medication Instructions Recorded Confirmed albuterol sulfate 90 mcg/actuation 2 puff inhalation Q4-6H PRN 07/03/23 07/03/23 aerosol inhaler (Ventolin HFA) wheezing levothyroxine 50 mcg tablet 50 mcg PO DAILY 07/03/23 07/03/23 mirtazapine 30 mg tablet 30 mg PO BEDTIME 07/03/23 07/03/23 pramipexole 0.25 mg tablet 0.25 mg PO BID 07/03/23 07/03/23 pregabalin 50 mg capsule 50 mg PO QID 07/03/23 07/03/23 Allergies Allergy/AdvReac Type Severity Reaction Status Date / Time olanzapine [From ZYPREXA] AdvReac Intermediate RLS Verified 06/23/23 08:44 symptoms clonidine AdvReac RLS Verified 06/23/23 08:44 diphenhydramine AdvReac RLS Verified 06/23/23 08:44 [From Benadryl] hydroxyzine AdvReac RLS Verified 06/23/23 08:44 melatonin AdvReac RLS Verified 06/23/23 08:44 atypical antipsychotics AdvReac Severe This class Uncoded 06/23/23 08:44 appears to potentiate RLS/Akathesia Review of Systems 2 Review of Systems: Constitutional : No Fever, No Chills ENT/Mouth : No Ear Pain, No Nasal Congestion, No sore throat Eyes: No Eye Pain, No Swelling, No Redness Cardiovascular : No Chest Pain, No SOB Respiratory : No Cough, No Sputum, No Dyspnea Gastrointestinal : No Nausea, No Vomiting, No Diarrhea, No Hematochezia, No Melena Genitourinary : No Dysuria, No Urinary Frequency, No Hematuria Musculoskeletal : No Myalgias Skin : No Skin Lesions, No rash Neuro : No Weakness, No Numbness, No Paresthesias, No Dizziness, No Headache Psych : positive Anxiety, positive Depression, positive SI, No HI Heme/Lymph: No Lymphadenopathy Endocrine : No Polyuria, No Polydipsia All other systems reviewed and are negative Yes all other systems are reviewed and are negative [facility] Past Medical History Attestation statement: The following information was validated with the patient. Source: old records reviewed and nursing notes reviewed Medical History Type II diabetes mellitus Smoker Fibromyalgia Cannabis use disorder, moderate, dependence Benzodiazepine abuse Osteoporosis Hypothyroidism Bipolar II disorder RLS (restless legs syndrome) COPD (chronic obstructive pulmonary disease) HLD (hyperlipidemia) Surgical History H/O: hysterectomy Family History Family History Mother No problems noted. Father No problems noted. Son Substance use disorder Social History Social History Household Members: Spouse Household Members Other:: son's girlfriend Housing: House Do you presently have visiting nurse or other home services: No Alcohol intake: never Patient Tobacco Use Status: Current everyday Tobacco user Tobacco use type: Cigarette Cigarette Packs Per Day: 0.5 Cigarettes Per Day: 8 Years Smoked: Since age 22 e-Cigarette/Vaping Use: Never Used Second Hand Smoke Exposure: Yes Substance Use Type: Marijuana Advance Directives: No Advance Directives Information Provided: No service: No Current occupational status: employed Sexual orientation: Straight/Heterosexual Cognitive needs: No Hearing needs: No Vision needs: No Physical Exam ED Vital Signs: Vital Signs - 24 hr 07/03/23 06:04 Temperature 97.6 F Pulse Rate 82 Respiratory Rate 16 Blood Pressure 113/72 Pulse Oximetry 95 Oxygen Delivery Method Room Air BMI result Body Mass Index 20.1 vss Appearance: Alert.? Oriented X3.? No acute distress.? Head: Normocephalic, atraumatic, no step-offs or deformities Eyes: Pupils equal, round and reactive to light.? Neck: Normal inspection.? Neck supple.? CVS: Normal heart rate and rhythm.? Pulses normal.? Respiratory: No respiratory distress.? Breath sounds normal.? Abdomen: Soft and nontender.? Skin: Skin warm and dry.? Normal skin color.? Normal skin turgor.? Extremities: No lower extremity edema.? No calf ttp. 5/5 strength to bilateral upper and lower extremities Neuro: Oriented X 3.? No motor deficit.? No sensory deficit. CN 2-12 intact Course Reevaluation(s) Reevaluation #1: CBC wnl. Chemistry unremarkable. Ethanol negative. Urine test pending. This time patient to be placed into observation to allow more time to be evaluated by Behavioral Health Team. At time observation was started patient common cooperative no acute distress will continue to monitor Time: 10:55 Medical Decision Making Medical Decision Making [facility] Narrative: 0713 62-year-old female presents stating anxiety, depression, suicidal ideation for the past week. Recently had medication changes Physical exam benign Likely bipolar disorder due to lack of medications. Unlikely metabolic derangements. Other differentials include anxiety, depression, schizoaffective/schizophrenia Plan medical clearance evaluation by care team Differential Diagnosis Differential Diagnoses: The differential diagnosis associated with the presentation includes Likely bipolar disorder due to lack of medications. Unlikely metabolic derangements. Other differentials include anxiety, depression, schizoaffective/schizophrenia Admission/Observation Consideration of admission/observation: Escalation of care including admission/observation considered Likely psych Lab Data [facility] Lab Attestation statement: I reviewed the patient's lab results. 07/03/23 09:29 07/03/23 09:29 Labs: Lab Results 07/03/23 Range/Units 09:29 WBC 10.2 (4.8-10.8) X10*3/uL RBC 4.48 (4.20-5.50) X10*6/uL Hgb 14.4 (12.0-16.0) g/dl Hct 41.7 (37.0-47.0) % MCV 93.1 (80.0-98.0) fL MCH 32.1 (27.0-33.0) pg MCHC 34.5 (31.0-35.0) g/dl RDW 13.2 (11.0-16.0) % Plt Count 408 H (160-400) X10*3/uL MPV 9.9 (9.4-12.3) fL Immature Gran % (Auto) 0.3 (0.0-0.4) % Neut % (Auto) 68.5 (45-73) % Lymph % (Auto) 20.0 (20-40) % [place] % (Auto) 9.4 (2-11) % Eos % (Auto) 1.2 (0-4) % Baso % (Auto) 0.6 (0-2) % Lymph # (Auto) 2.1 (1.2-4.9) X10*3/uL [place] # (Auto) 1.0 (0.1-1.2) X10*3/uL Eos # (Auto) 0.1 (0.0-0.4) X10*3/uL Baso # (Auto) 0.1 (0.0-0.2) X10*3/uL Abs Immat Gran (auto) 0.03 (0.00-0.03) X10*3/uL Absolute Neuts (auto) 7.0 (2.0-8.3) x10*3/uL Absolute Nucleated RBC 0.000 (0.0-0.012) X10*3/uL Nucleated RBC % (auto) 0.0 (0.0-0.2) /100WBC Sodium 139 (135-145) mmol/L Potassium 3.9 (3.3-5.1) mmol/L Chloride 102 (96-108) mmol/L Carbon Dioxide 27 (22-29) mmol/L Anion Gap 14 (12-20) BUN 15 (9-16) mg/dL Creatinine 0.78 (0.5-1.4) mg/dL Estim Creat Clear Calc 60.4 Estimated GFR > 60 Random Glucose 110 (60-115) mg/dL Calcium 9.3 (8.4-10.2) mg/dL Total Bilirubin 0.7 (0.0-1.0) mg/dL AST 22 (5-31) U/L ALT 14 (0-31) U/L Alkaline Phosphatase 101 (39-117) U/L Total Protein 7.1 (6.5-8.0) g/dL Albumin 4.2 (3.5-5.0) g/dL TSH 1.90 (0.32-4.0) uIU/mL Ethyl Alcohol < 10 mg/dL External Record Review External record reviewed: Inpatient record, Office record, Outpatient record, Prior outpatient labs, Prior outpatient radiology, Primary care record and Outside ED record Discharge Plan Discharge Clinical Impression: Bipolar disorder Patient Disposition: Still a Patient Prescriptions: No Action levothyroxine 50 mcg tablet 50 mcg PO DAILY mirtazapine 30 mg tablet 30 mg PO BEDTIME pramipexole 0.25 mg tablet 0.25 mg PO BID albuterol sulfate [Ventolin HFA] 90 mcg/actuation HFA aerosol inhaler 2 puff inhalation Q4-6H PRN (Reason: wheezing) pregabalin 50 mg capsule 50 mg PO QID Interventions: [place]-Suicide Risk Severity Scale Last Done: 07/03/23 06:42
--- NOTE | 2023-07-03 08:39 | PC.NURSE ---
clients comes in to hang out with client
[2023-07-03 09:35] LABS: MANUAL DIFF FLAG NO
[2023-07-03 09:40] LABS: Basophils Absolute Auto 0.1 X10*3/uL (0.0-0.2); Basophils Percent Auto 0.6 % (0-2); Eosinophils Absolute Auto 0.1 X10*3/uL (0.0-0.4); Eosinophils Percent Auto 1.2 % (0-4); Hematocrit 41.7 % (37.0-47.0); Hemoglobin 14.4 g/dl (12.0-16.0); Imm Gran Abs Auto 0.03 X10*3/uL (0.00-0.03); Imm Gran Pct Auto 0.3 % (0.0-0.4); Lymphocytes Absolute Auto 2.1 X10*3/uL (1.2-4.9); Mean Corpuscular HGB Conc 34.5 g/dl (31.0-35.0); Mean Corpuscular Hemoglobin 32.1 pg (27.0-33.0); Mean Corpuscular Volume 93.1 fL (80.0-98.0); Mean Platelet Volume 9.9 fL (9.4-12.3); Monocytes Percent Auto 9.4 % (2-11); Neutrophils Percent Auto 68.5 % (45-73); Platelet Count 408 X10*3/uL (160-400); Red Blood Count 4.48 X10*6/uL (4.20-5.50); Red Cell Distribution Width 13.2 % (11.0-16.0); White Blood Count 10.2 X10*3/uL (4.8-10.8)
[2023-07-03 10:07] LABS: Alanine Aminotransferase 14 U/L (0-31); Albumin Level 4.2 g/dL (3.5-5.0); Alkaline Phosphatase 101 U/L (39-117); Anion Gap 14 (12-20); Aspartate Amino Transferase 22 U/L (5-31); Bilirubin Total 0.7 mg/dL (0.0-1.0); Blood Urea Nitrogen 15 mg/dL (9-16); Calcium 9.3 mg/dL (8.4-10.2); Carbon Dioxide 27 mmol/L (22-29); Chloride 102 mmol/L (96-108); Creatinine Clr Calc Pharmacy 60.4; Estimated Glomerular Filt Rate > 60; Ethanol < 10 mg/dL; Glucose Random 110 mg/dL (60-115); Potassium 3.9 mmol/L (3.3-5.1); Sodium 139 mmol/L (135-145); Total Protein 7.1 g/dL (6.5-8.0)
[2023-07-03 18:23] LABS: Appearance Urine Cloudy; Color Urine Dark Yellow; Glucose Urine UA Negative (Negative); Leukocyte Esterase Urine Small (1+) (Negative); Nitrite Urine Negative (Negative); PH 5.5 (5.0-9.0); Specific Gravity - Urine >= 1.030 (1.005-1.025); UMIC TRIGGER UACC YES; Urine Blood Negative (Negative); Urine Ketones Trace mg/dL (Negative); Urine Protein 30 (1+) mg/dL (Neg-Trace)
[2023-07-03 18:30] LABS: Bacteria Urine 1+ (None Seen); RBC Urine 0-2 /HPF (0-2); UACC Culture Trigger YES
[2023-07-03 19:16] LABS: Amphetamine Screen Urine POSITIVE (Not Detect); Barbiturates, Urine Not Detected (Not Detect); Benzodiazepines Screen Urine Not Detected (Not Detect); Cannabinoid Screen Urine POSITIVE (Not Detect); Cocaine Screen Urine Not Detected (Not Detect); Fentanyl, urine Not Detected (Not Detect); Opiate Screen Urine Not Detected (Not Detect); Phencyclidine Screen Urine Not Detected (Not Detect)
[2023-07-03] MEDS: Pramipexole Di-HCL 0.25 MG TABLET PO (20:54)
[2023-07-03] MEDS: Pregabalin 50 MG CAPSULE PO (20:54)
[2023-07-03] MEDS: Mirtazapine 30 MG TABLET PO (20:54)
[2023-07-03 21:06] VITALS: BP 112/63; PULSE 82; RESP 20; TEMP 36.9; O2SAT 96
[2023-07-04] MEDS: Levothyroxine Sodium 50 MCG TABLET PO (06:25)
[2023-07-04 06:26] VITALS: BP 117/76; PULSE 73; RESP 17; TEMP 36.6; O2SAT 97
--- NOTE | 2023-07-04 07:51 | PHA.MEDREC ---
Pharmacy Consult ? Medication Reconciliation Pharmacy has completed the medication reconciliation.PHARMACY HAS REVIEWED THE MED REC DONE BY ZULY
--- NOTE | 2023-07-04 08:13 | MHC.EDTECH ---
PT refused EKG at this time. got very upset, yelling i don't want anything on my fucking skin
[2023-07-04 08:24] LABS: COVID-19 Test Negative (Negative); IDNOW Serial# 08D9AD1C
[2023-07-04] MEDS: Pregabalin 50 MG CAPSULE PO ×4 (09:47→22:05)
[2023-07-04] MEDS: Pramipexole Di-HCL 0.25 MG TABLET PO ×2 (10:21→22:03)
--- NOTE | 2023-07-04 11:15 | MHC.CM.PN ---
[facility] IS FOLLOWING AND SHOULD BE UPDATED ONCE A DC PLAN/DATE IS KNOWN [phone]
[2023-07-04 15:02] VITALS: RESP 16
[2023-07-04 19:30] VITALS: BP 120/87; PULSE 87; RESP 16; TEMP 36.1; O2SAT 96
--- NOTE | 2023-07-04 20:30 | PC.NURSE ---
PT refuses NRT and annual flu vax
--- NOTE | 2023-07-04 20:38 | PC.ADMIT ---
Addendum entered by Mimi Sepulveda RN 07/04/23 20:52: Legal status: CV 15 minute safety checks Original Note: PT is a 62 year old Icelandic speaking female that arrived on this unit @ 19:30 from the [facility]. PT is known to [facility] and . PT self presented to [facility] ED. Pt reports she has been off of her medications since January 2023 and has been doing well per her report. PT reports this time of year is triggering for her as her () son's birthday just passed. PT felt she was doing well but then due to many stressors she had to run . PT reports taking off to a friend's house for a few days and did take Adderall that was prescribed to a friend of hers (5 tablets over a few days). PT reports remorse about this as she told her she was done with using it and does not want him to know about it. PT was tearful during the admission process. TOX + for marijuana and amphetamines. Denies use of any other substances. Legals signed, tx plan and safety tool completed. VS stable. Denies SI/HI AH/VH. Oriented to unit. Plan of care ongoing.
[2023-07-04] MEDS: Mirtazapine 30 MG TABLET PO (22:04)
--- NOTE | 2023-07-04 23:35 | PC.NURSE ---
PT refused EKG while in POD. AWilfredo Mckeon aware and ok to proceed with admission. Will attempt to try again tomorrow.
[2023-07-05] MEDS: Levothyroxine Sodium 50 MCG TABLET PO (06:27)
[2023-07-05] MEDS: Pramipexole Di-HCL 0.25 MG TABLET PO ×2 (06:27→16:50)
[2023-07-05 08:00] VITALS: BP 139/76; PULSE 73; RESP 16; TEMP 36.3; O2SAT 94
[2023-07-05] MEDS: Pregabalin 50 MG CAPSULE PO ×4 (08:11→20:49)
[2023-07-05] MEDS: LORazepam 1 MG TABLET PO (09:13)
[2023-07-05] MEDS: Nicotine 21 MG PATCH.TD24 TRANSDERMA (11:27)
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
[2023-07-05 16:44] VITALS: BP 138/82; PULSE 79; RESP 18; TEMP 36.3; O2SAT 93
[2023-07-05 18:00] VITALS: BP 136/68; PULSE 75; TEMP 36.2; O2SAT 94
[2023-07-05] MEDS: clonazePAM 0.5 MG TABLET PO (19:04)
[2023-07-05] MEDS: Mirtazapine 30 MG TABLET PO (20:49)
[2023-07-05] MEDS: Nortriptyline HCl 10 MG CAPSULE PO (20:49)
[2023-07-06] MEDS: clonazePAM 0.5 MG TABLET PO ×2 (06:07→18:26)
[2023-07-06] MEDS: Levothyroxine Sodium 50 MCG TABLET PO (06:07)
[2023-07-06] MEDS: Pramipexole Di-HCL 0.25 MG TABLET PO ×2 (06:07→16:23)
[2023-07-06] MEDS: Nicotine 21 MG PATCH.TD24 TRANSDERMA (08:24)
[2023-07-06] MEDS: Pregabalin 50 MG CAPSULE PO ×4 (08:24→19:38)
[2023-07-06 08:27] VITALS: BP 108/58; PULSE 80; RESP 18; TEMP 36.2; O2SAT 98
[2023-07-06 16:34] VITALS: BP 126/69; PULSE 83; RESP 18; TEMP 35.8; O2SAT 95
--- NOTE | 2023-07-06 16:45 | P.PNPSI_ITS ---
Subjective Subjective Date of Service: 07/06/23 Reason For Visit: SI Subjective Notes: Conditional Voluntary Healthcare Proxy: No Guardianship: No Medical Problems Affecting Mental Status: No Interim History: Slept for 6 hours. Tolerated initial dose of Pamelor 10 mg reports new onset syncope. Pt affirms, approx since the end of Apr, base of her neck is painful, she believes there is a lump. She has appt to meet with Dr. García, her neurologist-affirms nausea, headache, visual issues. Discussed Robert Chow-will continue discussion with pt and in family meeting on 07/08. 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), Reports frequent falls, Reports headache(s) and Reports Other visual disturbances Mental Status Exam Mental Status Exam Patient Appearance: Fatigued and Disheveled Patient Orientation: Person, Place, Time and Situation Level of Consciousness: Alert Patient Behavior: Talkative and Good Eye Contact Mood Description: Depressed Affect Description: Flat Patient Cognition Impaired: No Ability to Follow Directions: Good Speech Pattern: Spontaneous Speech Memory Description: Episodic Impaired Hallucinations: None Delusions: Not Present Perceptual Disturbances: Depersonalization and Derealization Thought Process: Rumination Thought Content: positive for Circumstantial, positive for Perseveration and positive for Suicidal Ideation Depressive Symptoms: Unhappiness, Increased Fatigue, Thoughts of /Suicide, Low Self Esteem and Loss of Energy Judgement: Fair Diagnostics Vital Signs (24Hr): Vital Signs - 24 hr 07/05/23 18:00 07/06/23 08:27 07/06/23 16:34 Temperature 97.2 F 97.1 F 96.5 F L Pulse Rate 75 80 83 Respiratory Rate 18 18 Blood Pressure 136/68 108/58 L 126/69 Pulse Oximetry 94 98 95 Oxygen Delivery Method Room Air Room Air Room Air BMI result Body Mass Index 20.1 Labs 07/03/23 09:29 07/03/23 09:29 Medications Medications Current Medications Acetaminophen (Acetaminophen 325 Mg Tablet) 650 mg PO Q6H PRN PRN Reason: Headache/Pain Mild Scale (1-3) Al Hydroxide/Mg Hydroxide (Magnesium Hydrox/Alum Hydrox 30 Ml Oral.Susp) 30 ml PO Q6H PRN PRN Reason: Heartburn/Nausea Albuterol Sulfate (Albuterol Sulfate 90 Mcg 8 Gm Inhaler) 2 puff INHALE Q4H PRN PRN Reason: wheezing Clonazepam (Clonazepam 0.5 Mg Tablet) 0.5 mg PO BID PRN PRN Reason: anxiety Last Admin: 07/06/23 06:07 Dose: 0.5 mg Levothyroxine Sodium (Levothyroxine Sodium 50 Mcg Tablet) 50 mcg PO DAILY@0600 [facility] Last Admin: 07/06/23 06:07 Dose: 50 mcg Magnesium Hydroxide (Milk Of Magnesia 30 Ml Oral.Susp) 30 ml PO DAILY PRN PRN Reason: Constipation Mirtazapine (Mirtazapine 30 Mg Tablet) 30 mg PO BEDTIME [facility] Last Admin: 07/05/23 20:49 Dose: 30 mg Nicotine (Nicotine 21 Mg Patch.Td24) 21 mg TRANSDERMA DAILY [facility] Last Admin: 07/06/23 08:24 Dose: 21 mg Nortriptyline HCl (Nortriptyline Hcl 10 Mg Capsule) 10 mg PO BEDTIME [facility] Last Admin: 07/05/23 20:49 Dose: 10 mg Pramipexole Dihydrochloride (Pramipexole Di-Hcl 0.25 Mg Tablet) 0.25 mg PO BID@0700,1600 [facility] Last Admin: 07/06/23 16:23 Dose: 0.25 mg Pregabalin (Pregabalin 50 Mg Capsule) 50 mg PO QID [facility] Last Admin: 07/06/23 16:24 Dose: 50 mg Allergies Allergies Allergy/AdvReac Type Severity Reaction Status Date / Time olanzapine [From ZYPREXA] AdvReac Intermediate RLS Verified 06/23/23 08:44 symptoms clonidine AdvReac RLS Verified 06/23/23 08:44 diphenhydramine AdvReac RLS Verified 06/23/23 08:44 [From Benadryl] hydroxyzine AdvReac RLS Verified 06/23/23 08:44 melatonin AdvReac RLS Verified 06/23/23 08:44 atypical antipsychotics AdvReac Severe This class Uncoded 06/23/23 08:44 appears to potentiate RLS/Akathesia Assessment & Plan Assessment & Plan (1) Polysubstance use disorder: Status: Acute Code(s): F19.90 - Other psychoactive substance use, unspecified, uncomplicated (2) Bipolar II disorder: Status: Acute Code(s): F31.81 - Bipolar II disorder Plan 62 yo female, hx of bipolar II disorder, polysubstance use, currently cannabis. Pt missing from home for approx 6 days. Off meds since January 2023 and doing OK until recently. Stressors include son't birthday in [facility], second anniversary of the of her mom and some family discord. Pt by history has not responded well to medications, antipsychotics cause RLS, mood stabilizers are not tolerated. Discussed options with pt for sx of depression, anxiety, mood dysregulation. Plan: ECT/TMS consult-history of effective treatment with both she reports-pt prefers TMS Klonopin 0.5 mg bid prn anxiety Pamelor 10 mg hs Will discuss Vraylar trial, Caplyta trial with pt as well Diagnostics Referral for therapy/pharmacology. Of note, pt has been out of therapy for a time and does well with that modality by history. Collateral contact 07/06/23 Neuro consult-syncope since Apr 2023. Patient educated on: therapeutic strategies Informed Consent: understands Reason for continued inpatient stay Substantial Risk for: rapid decompensation Time Spent With Patient Time: Total time managing care of this patient today ____ minutes.
[2023-07-06] MEDS: Mirtazapine 30 MG TABLET PO (19:37)
[2023-07-06] MEDS: Nortriptyline HCl 10 MG CAPSULE PO (19:37)
[2023-07-06] MEDS: Magnesium Hydrox/Alum Hydrox 30 ML ORAL.SUSP PO (23:01)
[2023-07-07] MEDS: Levothyroxine Sodium 50 MCG TABLET PO (06:15)
[2023-07-07] MEDS: Pramipexole Di-HCL 0.25 MG TABLET PO ×2 (06:16→16:17)
[2023-07-07] MEDS: Nicotine 21 MG PATCH.TD24 TRANSDERMA (08:17)
[2023-07-07] MEDS: Pregabalin 50 MG CAPSULE PO ×4 (08:18→20:56)
[2023-07-07 08:20] VITALS: BP 100/64; PULSE 63; RESP 18; TEMP 36.1; O2SAT 95
[2023-07-07] MEDS: clonazePAM 0.5 MG TABLET PO ×2 (08:20→13:32)
[2023-07-07 08:45] VITALS: BMI 20.2
[2023-07-07 08:48] LABS: Estimated Average Glucose 137 mg/dL; Hemoglobin A1c % 6.4 % (<6.0)
[2023-07-07 08:52] LABS: Cholesterol 191 mg/dL (<200); HDL Cholesterol 53 mg/dL (>40); LDL Cholesterol Calculated 121 mg/dL (<100); Triglycerides 88 mg/dL (<150)
--- NOTE | 2023-07-07 08:58 | P.PNPSI_ITS ---
Subjective Subjective Date of Service: 07/07/23 Reason For Visit: SI Interim History: met with patient; discussed with team reports doing a little better and likes switch to Clonazepam (from ativan). Pt says however she gets anxious in afteroon and wondered if change could be made. She agreed to scheduling Clonazepam so cover afteroon. discussed ECT; she'll talk with dr. Cuenca Mental Status Exam Mental Status Exam Patient Appearance: Well Grooomed and Appropriate Patient Orientation: Person, Place, Time and Situation Level of Consciousness: Awake and Alert Patient Behavior: Talkative and Good Eye Contact Mood Description: Depressed Affect Description: Depressed Patient Cognition Impaired: No Ability to Follow Directions: Good Speech Pattern: Spontaneous Speech Memory Description: Episodic Impaired Hallucinations: None Delusions: Not Present Perceptual Disturbances: Depersonalization and Derealization Thought Process: Rumination Thought Content: positive for Circumstantial, positive for Perseveration and positive for Suicidal Ideation Depressive Symptoms: Unhappiness, Increased Fatigue, Thoughts of /Suicide, Low Self Esteem and Loss of Energy Judgement and Insight: impaired Diagnostics Vital Signs (24Hr): Vital Signs - 24 hr 07/06/23 16:34 07/07/23 08:20 Temperature 96.5 F L 97 F Pulse Rate 83 63 Respiratory Rate 18 18 Blood Pressure 126/69 100/64 Pulse Oximetry 95 95 Oxygen Delivery Method Room Air Room Air BMI result Body Mass Index 20.2 Labs 07/03/23 09:29 07/03/23 09:29 Labs: Laboratory Results - last 48 hr 07/07/23 08:03 Estimat Average Glucose 137 Hemoglobin A1c % 6.4 H Triglycerides 88 Cholesterol 191 LDL Cholesterol, Calc 121 H HDL Cholesterol 53 Medications Medications Current Medications Acetaminophen (Acetaminophen 325 Mg Tablet) 650 mg PO Q6H PRN PRN Reason: Headache/Pain Mild Scale (1-3) Al Hydroxide/Mg Hydroxide (Magnesium Hydrox/Alum Hydrox 30 Ml Oral.Susp) 30 ml PO Q6H PRN PRN Reason: Heartburn/Nausea Last Admin: 07/06/23 23:01 Dose: 30 ml Albuterol Sulfate (Albuterol Sulfate 90 Mcg 8 Gm Inhaler) 2 puff INHALE Q4H PRN PRN Reason: wheezing Clonazepam (Clonazepam 0.5 Mg Tablet) 0.5 mg PO BID PRN PRN Reason: anxiety Last Admin: 07/07/23 08:20 Dose: 0.5 mg Levothyroxine Sodium (Levothyroxine Sodium 50 Mcg Tablet) 50 mcg PO DAILY@0600 [facility] Last Admin: 07/07/23 06:15 Dose: 50 mcg Magnesium Hydroxide (Milk Of Magnesia 30 Ml Oral.Susp) 30 ml PO DAILY PRN PRN Reason: Constipation Mirtazapine (Mirtazapine 30 Mg Tablet) 30 mg PO BEDTIME [facility] Last Admin: 07/06/23 19:37 Dose: 30 mg Nicotine (Nicotine 21 Mg Patch.Td24) 21 mg TRANSDERMA DAILY [facility] Last Admin: 07/07/23 08:17 Dose: 21 mg Nortriptyline HCl (Nortriptyline Hcl 10 Mg Capsule) 10 mg PO BEDTIME [facility] Last Admin: 07/06/23 19:37 Dose: 10 mg Pramipexole Dihydrochloride (Pramipexole Di-Hcl 0.25 Mg Tablet) 0.25 mg PO BID@0700,1600 [facility] Last Admin: 07/07/23 06:16 Dose: 0.25 mg Pregabalin (Pregabalin 50 Mg Capsule) 50 mg PO QID [facility] Last Admin: 07/07/23 08:18 Dose: 50 mg Allergies Allergies Allergy/AdvReac Type Severity Reaction Status Date / Time olanzapine [From ZYPREXA] AdvReac Intermediate RLS Verified 06/23/23 08:44 symptoms clonidine AdvReac RLS Verified 06/23/23 08:44 diphenhydramine AdvReac RLS Verified 06/23/23 08:44 [From Benadryl] hydroxyzine AdvReac RLS Verified 06/23/23 08:44 melatonin AdvReac RLS Verified 06/23/23 08:44 atypical antipsychotics AdvReac Severe This class Uncoded 06/23/23 08:44 appears to potentiate RLS/Akathesia Assessment & Plan Assessment & Plan (1) Polysubstance use disorder: Status: Acute Code(s): F19.90 - Other psychoactive substance use, unspecified, uncomplicated (2) Bipolar II disorder: Status: Acute Code(s): F31.81 - Bipolar II disorder Plan 62 yo female, hx of bipolar II disorder, polysubstance use, currently cannabis. Pt missing from home for approx 6 days. Off meds since January 2023 and doing OK until recently. Stressors include son't birthday in , second anniversary of the of her mom and some family discord. Pt by history has not responded well to medications, antipsychotics cause RLS, mood stabilizers are not tolerated. Discussed options with pt for sx of depression, anxiety, mood dysregulation. Plan: ECT/TMS consult-history of effective treatment with both she reports-pt prefers TMS Klonopin 0.5 mg bid prn anxiety Pamelor 10 mg hs Will discuss Vraylar trial, Caplyta trial with pt as well Diagnostics Referral for therapy/pharmacology. Of note, pt has been out of therapy for a time and does well with that modality by history. Collateral contact 07/06/23 Neuro consult-syncope since Apr 2023. 07/07/23 reports doing a little better and likes switch to Clonazepam (from ativan). Pt says however she gets anxious in afteroon and wondered if change could be made. She agreed to scheduling Clonazepam so cover afternoon (pt intends to take both doses anyway). Patient educated on: diagnosis, medication risk/benefits and ECT Informed Consent: understands Reason for continued inpatient stay Substantial Risk for: inability to function Time Spent With Patient Time: Total time managing care of this patient today ____ minutes.
[2023-07-07 09:27] LABS: Folate 10.9 ng/mL (> or = 4.0); Vitamin B12 448 pg/mL (200-900)
[2023-07-07 18:00] VITALS: BP 126/65; PULSE 73; RESP 16; TEMP 36.4; O2SAT 96
[2023-07-07] MEDS: Nortriptyline HCl 10 MG CAPSULE PO (20:56)
[2023-07-07] MEDS: Mirtazapine 15 MG TABLET 45 MG PO (20:56)
[2023-07-08] MEDS: Pramipexole Di-HCL 0.25 MG TABLET PO ×2 (06:00→16:34)
[2023-07-08] MEDS: Levothyroxine Sodium 50 MCG TABLET PO (06:00)
[2023-07-08] MEDS: Pregabalin 50 MG CAPSULE PO ×4 (08:06→19:43)
[2023-07-08] MEDS: Nicotine 21 MG PATCH.TD24 TRANSDERMA (08:06)
[2023-07-08] MEDS: clonazePAM 0.5 MG TABLET PO ×2 (08:07→14:00)
[2023-07-08 08:10] VITALS: BP 122/76; PULSE 76; RESP 18; TEMP 36.9; O2SAT 92
--- NOTE | 2023-07-08 15:11 | HO.PSYCHPN ---
Subjective Subjective Date of Service: 07/08/23 Reason For Visit: SI Subjective Notes: Conditional Voluntary Healthcare Proxy: No Guardianship: No Medical Problems Affecting Mental Status: No Interim History: Jaja reports poor sleep. Reports Mirtazapine not helpful with recent increase, so we brought it down today. Met with pt and -discussion of meds, ECT/TMS, fainting episodes at home, pending neuro consultation (pt is a regular pt of Dr. García), management of anniversary dates, pending return of son Myke (07/26/23) and overall sx. mgt. Pt would like to do a Vraylar trial-we will begin 07/09. Discussed efficacy of Sullivan (300-600 mg) by history, I am unsure why they stopped it. Pt may consider re-starting. Medication Compliance: Yes Side effects from medications: No Attending Groups: No Review of Systems Acute medical concerns: No Medical Review of Systems: unchanged Review of Systems Review of Systems Yes all other systems are reviewed and are negative Mental Status Exam Mental Status Exam Patient Appearance: Well Grooomed and Appropriate Patient Orientation: Person, Place, Time and Situation Level of Consciousness: Awake and Alert Patient Behavior: Talkative and Good Eye Contact Mood Description: Depressed Affect Description: Depressed Patient Cognition Impaired: No Ability to Follow Directions: Good Speech Pattern: Spontaneous Speech Memory Description: Episodic Impaired Hallucinations: None Delusions: Not Present Perceptual Disturbances: Depersonalization and Derealization Thought Process: Rumination Thought Content: positive for Circumstantial, positive for Perseveration and positive for Suicidal Ideation Depressive Symptoms: Unhappiness, Increased Fatigue, Thoughts of /Suicide, Low Self Esteem and Loss of Energy Judgement and Insight: impaired Diagnostics Vital Signs (24Hr): Vital Signs - 24 hr 07/07/23 18:00 07/08/23 08:10 Temperature 97.5 F 98.5 F Pulse Rate 73 76 Respiratory Rate 16 18 Blood Pressure 126/65 122/76 Pulse Oximetry 96 92 Oxygen Delivery Method Room Air Room Air BMI result Body Mass Index 20.2 Labs 07/03/23 09:29 07/03/23 09:29 Labs: Laboratory Results - last 48 hr 07/07/23 08:03 Estimat Average Glucose 137 Hemoglobin A1c % 6.4 H Triglycerides 88 Cholesterol 191 LDL Cholesterol, Calc 121 H HDL Cholesterol 53 Vitamin B12 448 Folate 10.9 Medications Medications Current Medications Acetaminophen (Acetaminophen 325 Mg Tablet) 650 mg PO Q6H PRN PRN Reason: Headache/Pain Mild Scale (1-3) Al Hydroxide/Mg Hydroxide (Magnesium Hydrox/Alum Hydrox 30 Ml Oral.Susp) 30 ml PO Q6H PRN PRN Reason: Heartburn/Nausea Last Admin: 07/06/23 23:01 Dose: 30 ml Albuterol Sulfate (Albuterol Sulfate 90 Mcg 8 Gm Inhaler) 2 puff INHALE Q4H PRN PRN Reason: wheezing Cariprazine (Cariprazine Hcl 1.5 Mg Capsule) 1.5 mg PO DAILY [facility] Clonazepam (Clonazepam 0.5 Mg Tablet) 0.5 mg PO BID@0900,1400 [facility] Last Admin: 07/08/23 14:00 Dose: 0.5 mg Levothyroxine Sodium (Levothyroxine Sodium 50 Mcg Tablet) 50 mcg PO DAILY@0600 [facility] Last Admin: 07/08/23 06:00 Dose: 50 mcg Magnesium Hydroxide (Milk Of Magnesia 30 Ml Oral.Susp) 30 ml PO DAILY PRN PRN Reason: Constipation Mirtazapine (Mirtazapine 15 Mg Tablet) 15 mg PO BEDTIME [facility] Nicotine (Nicotine 21 Mg Patch.Td24) 21 mg TRANSDERMA DAILY [facility] Last Admin: 07/08/23 08:06 Dose: 21 mg Nortriptyline HCl (Nortriptyline Hcl 10 Mg Capsule) 10 mg PO BEDTIME [facility] Pramipexole Dihydrochloride (Pramipexole Di-Hcl 0.25 Mg Tablet) 0.25 mg PO BID@0700,1600 [facility] Last Admin: 07/08/23 06:00 Dose: 0.25 mg Pregabalin (Pregabalin 50 Mg Capsule) 50 mg PO QID [facility] Last Admin: 07/08/23 14:00 Dose: 50 mg Allergies Allergies Allergy/AdvReac Type Severity Reaction Status Date / Time olanzapine [From ZYPREXA] AdvReac Intermediate RLS Verified 06/23/23 08:44 symptoms clonidine AdvReac RLS Verified 06/23/23 08:44 diphenhydramine AdvReac RLS Verified 06/23/23 08:44 [From Benadryl] hydroxyzine AdvReac RLS Verified 06/23/23 08:44 melatonin AdvReac RLS Verified 06/23/23 08:44 atypical antipsychotics AdvReac Severe This class Uncoded 06/23/23 08:44 appears to potentiate RLS/Akathesia Assessment & Plan Assessment & Plan (1) Polysubstance use disorder: Status: Acute Code(s): F19.90 - Other psychoactive substance use, unspecified, uncomplicated (2) Bipolar II disorder: Status: Acute Code(s): F31.81 - Bipolar II disorder Plan 62 yo female, hx of bipolar II disorder, polysubstance use, currently cannabis. Pt missing from home for approx 6 days. Off meds since January 2023 and doing OK until recently. Stressors include son't birthday in [facility], second anniversary of the of her mom and some family discord. Pt by history has not responded well to medications, antipsychotics cause RLS, mood stabilizers are not tolerated. Discussed options with pt for sx of depression, anxiety, mood dysregulation. Plan: ECT/TMS consult-history of effective treatment with both she reports-pt prefers TMS Klonopin 0.5 mg bid prn anxiety Pamelor 10 mg hs Will discuss Vraylar trial, Caplyta trial with pt as well Diagnostics Referral for therapy/pharmacology. Of note, pt has been out of therapy for a time and does well with that modality by history. Collateral contact 07/06/23 Neuro consult-syncope since Apr 2023. 07/07/23 reports doing a little better and likes switch to Clonazepam (from ativan). Pt says however she gets anxious in afteroon and wondered if change could be made. She agreed to scheduling Clonazepam so cover afternoon (pt intends to take both doses anyway). 07/08/23 Insomnia- Ambien 5 HS prn 07/08-07/11 Vraylar 1.5 mg a.m. -monitor for RLS Await neuro consult and ECT/TMS consult Patient educated on: medication risk/benefits and therapeutic strategies Guardian/Caregiver educated on: medication risk/benefits and therapeutic strategies Informed Consent: understands and further education needed Reason for continued inpatient stay Substantial Risk for: rapid decompensation Time Spent With Patient Time: Total time managing care of this patient today ____ minutes.
--- NOTE | 2023-07-08 15:55 | P.CNNE_ITS ---
History of Present Illness Data of Consult Service Date: 07/08/23 Primary Care Provider: Unknown Physician HPI Reason for consult: Episodes of passing out 62 yo woman with depression and RLS who I was asked to see for episodes of passing out. She reported two similar epiosodes in last few weeks. Each time, she had a feeling of dizziness, or 'darkness', then passing out for some time, probably seconds to minutes. NO cardiac symptoms. No physical injury. No witness. Review of Systems 2 Review of Systems: Feeling depressed. Cannot sleep PMFSH Past Medical History Medical History (Updated 07/08/23 @ 16:00 by Sunil García MD) Bipolar II disorder Polysubstance use disorder Type II diabetes mellitus Smoker Fibromyalgia Cannabis use disorder, moderate, dependence Benzodiazepine abuse Osteoporosis Hypothyroidism Bipolar II disorder RLS (restless legs syndrome) COPD (chronic obstructive pulmonary disease) HLD (hyperlipidemia) Family History Family History Mother No problems noted. Father No problems noted. Son Substance use disorder Surgical History Surgical History H/O: hysterectomy Social History Household Members: Family Household Members Other:: son's girlfriend Housing: House Do you presently have visiting nurse or other home services: No Alcohol intake: never Patient Tobacco Use Status: Current everyday Tobacco user Tobacco use type: Cigarette Cigarette Packs Per Day: 0.4 Cigarettes Per Day: 8.0 Years Smoked: 45 Smoked in Last 30 Days: Yes e-Cigarette/Vaping Use: Never Used Patient Interested in Nicotine Replacement: No Patient Given Instructions on How to Stop Smoking: Yes Date Education Initiated: 07/04/23 Second Hand Smoke Exposure: No Use of substances other than those prescribed or required for medical reasons: Yes Substance Use Type: Amphetamines and Marijuana Substance Use Frequency: Recent Binge Last Used Substance: Just Prior to Admission Currently Displaying Signs/Symptoms of Drug Intoxication Withdrawal: No Any prior treatment program specific to substance use: No Have you been hit, kicked, punched, or otherwise hurt by someone within the past year? If so, by whom?: No Do you feel safe in your current relationship?: Yes Is there a partner from a previous relationship who is making you feel unsafe now?: No Are you made to feel afraid or neglected: No Advance Directives: No Advance Directives Information Provided: No Healthcare Proxy: No Guardian: No Do you have thoughts of harming others: None Do you have a plan to hurt others: No Plan Recently lost weight without trying: No Nutrition Risks: No Nutritional Risk Patient : No : No Poor oral hygiene: No service: No Current occupational status: employed Sexual orientation: Straight/Heterosexual Cognitive needs: No Hearing needs: No Vision needs: No Meds Allergies Allergy/AdvReac Type Severity Reaction Status Date / Time olanzapine [From ZYPREXA] AdvReac Intermediate RLS Verified 06/23/23 08:44 symptoms clonidine AdvReac RLS Verified 06/23/23 08:44 diphenhydramine AdvReac RLS Verified 06/23/23 08:44 [From Benadryl] hydroxyzine AdvReac RLS Verified 06/23/23 08:44 melatonin AdvReac RLS Verified 06/23/23 08:44 atypical antipsychotics AdvReac Severe This class Uncoded 06/23/23 08:44 appears to potentiate RLS/Akathesia Active Medications: Current Medications Acetaminophen (Acetaminophen 325 Mg Tablet) 650 mg PO Q6H PRN PRN Reason: Headache/Pain Mild Scale (1-3) Al Hydroxide/Mg Hydroxide (Magnesium Hydrox/Alum Hydrox 30 Ml Oral.Susp) 30 ml PO Q6H PRN PRN Reason: Heartburn/Nausea Last Admin: 07/06/23 23:01 Dose: 30 ml Albuterol Sulfate (Albuterol Sulfate 90 Mcg 8 Gm Inhaler) 2 puff INHALE Q4H PRN PRN Reason: wheezing Cariprazine (Cariprazine Hcl 1.5 Mg Capsule) 1.5 mg PO DAILY [facility] Clonazepam (Clonazepam 0.5 Mg Tablet) 0.5 mg PO BID@0900,1400 [facility] Last Admin: 07/08/23 14:00 Dose: 0.5 mg Levothyroxine Sodium (Levothyroxine Sodium 50 Mcg Tablet) 50 mcg PO DAILY@0600 [facility] Last Admin: 07/08/23 06:00 Dose: 50 mcg Magnesium Hydroxide (Milk Of Magnesia 30 Ml Oral.Susp) 30 ml PO DAILY PRN PRN Reason: Constipation Mirtazapine (Mirtazapine 15 Mg Tablet) 15 mg PO BEDTIME [facility] Nicotine (Nicotine 21 Mg Patch.Td24) 21 mg TRANSDERMA DAILY [facility] Last Admin: 07/08/23 08:06 Dose: 21 mg Nortriptyline HCl (Nortriptyline Hcl 10 Mg Capsule) 10 mg PO BEDTIME [facility] Pramipexole Dihydrochloride (Pramipexole Di-Hcl 0.25 Mg Tablet) 0.25 mg PO BID@0700,1600 [facility] Last Admin: 07/08/23 06:00 Dose: 0.25 mg Pregabalin (Pregabalin 50 Mg Capsule) 50 mg PO QID [facility] Last Admin: 07/08/23 14:00 Dose: 50 mg Zolpidem Tartrate (Zolpidem Tartrate 5 Mg Tablet) 5 mg PO BEDTIME PRN PRN Reason: Insomnia Stop: 07/11/23 09:00 Home Medications Medication Instructions Recorded Confirmed Last Taken Type albuterol sulfate 90 mcg/actuation 2 puff inhalation Q4-6H PRN 07/03/23 07/03/23 Unknown History aerosol inhaler (Ventolin HFA) wheezing levothyroxine 50 mcg tablet 50 mcg PO DAILY 07/03/23 07/03/23 Unknown History mirtazapine 30 mg tablet 30 mg PO BEDTIME 07/03/23 07/03/23 Unknown History pramipexole 0.25 mg tablet 0.25 mg PO BID 07/03/23 07/03/23 Unknown History pregabalin 50 mg capsule 50 mg PO QID 07/03/23 07/03/23 Unknown History Physical Exam 2 Vital Signs: Vital Signs: Last Vital Signs Temp 98.5 F 07/08/23 08:10 Pulse 76 07/08/23 08:10 Resp 18 07/08/23 08:10 BP 122/76 07/08/23 08:10 Pulse Ox 92 07/08/23 08:10 O2 Del Method Room Air 07/08/23 08:10 BMI result Body Mass Index 20.2 Neuro: Other: Alert and awake with normal sp speech, fluency, and depressed affect. Face is symmetrical, VFFTC, EOMI, no drift. NO focal weakness. DTRs are trace to 1, plantrars are flexor. Results Labs 07/03/23 09:29 07/03/23 09:29 Labs: MRI brain did not reveal any significant abnornmality Microbiology Microbiology Results: Microbiology 07/03/23 18:17 Urine clean catch - Urine watts top Urine Culture - Final Assessment and Plan (1) Syncope: Qualifiers: Syncope type: unspecified Qualified Code(s): R55 - Syncope and collapse Status: Acute Possible seizure disorder: Arrange a routine EEG. IF that is negative, may required 48 hr EEG. Procedures Date of Service Date of Service: 07/08/23
[2023-07-08 18:00] VITALS: BP 108/59; PULSE 76; RESP 18; TEMP 36.7; O2SAT 94
[2023-07-08] MEDS: Mirtazapine 15 MG TABLET PO (19:43)
[2023-07-08] MEDS: Nortriptyline HCl 10 MG CAPSULE PO (19:43)
[2023-07-08] MEDS: Zolpidem Tartrate 5 MG TABLET PO (19:43)
[2023-07-09] MEDS: clonazePAM 0.5 MG TABLET PO ×3 (04:31→13:38)
[2023-07-09] MEDS: Levothyroxine Sodium 50 MCG TABLET PO (04:31)
[2023-07-09] MEDS: Pramipexole Di-HCL 0.25 MG TABLET PO ×2 (05:37→16:37)
[2023-07-09] MEDS: Cariprazine HCl 1.5 MG CAPSULE PO (08:02)
[2023-07-09] MEDS: Pregabalin 50 MG CAPSULE PO ×4 (08:02→21:03)
[2023-07-09] MEDS: Nicotine 21 MG PATCH.TD24 TRANSDERMA (08:03)
[2023-07-09 09:12] VITALS: BP 135/71; PULSE 76; RESP 18; TEMP 36.1; O2SAT 95
--- NOTE | 2023-07-09 15:50 | P.PNPSI_ITS ---
Subjective Subjective Date of Service: 07/09/23 Reason For Visit: SI Subjective Notes: Conditional Voluntary Healthcare Proxy: No Guardianship: No Medical Problems Affecting Mental Status: No Interim History: met with patient. Discussed with team. Chart reviewed. He did require 1 dose of Klonopin last night due to very poor sleep and severe anxiety. Minimal benefit. Reports poor sleep, therefore sleeping excessively during the day, but also having very high anxiety levels. Is trying to stay out of her room during the daytime. Reports feeling irritable therefore guilty if she snaps at somebody. Feels guilty and a burden to her . Hopeless. No active SI. That being said is open to ECT treatment and formal review for this after the weekend. No psychosis. We did discuss medications and scheduling Klonopin at bedtime and also noted team ordered ambien 5mg 06/28-07/11 Medication Compliance: Yes Side effects from medications: No Attending Groups: No Review of Systems Acute medical concerns: No Review of Systems Review of Systems Yes all other systems are reviewed and are negative Mental Status Exam Mental Status Exam Narrative: Pleasant. Engaged. Casually dressed. Self-care fair. Depressed. Anxious. Some helplessness. No active SI. No HI. No agitation or psychosis. Insight and judgment fair Diagnostics Vital Signs (24Hr): Vital Signs - 24 hr 07/08/23 18:00 07/09/23 09:12 Temperature 98.0 F 96.9 F Pulse Rate 76 76 Respiratory Rate 18 18 Blood Pressure 108/59 L 135/71 Pulse Oximetry 94 95 Oxygen Delivery Method Room Air Room Air BMI result Body Mass Index 20.2 Labs 07/03/23 09:29 07/03/23 09:29 Medications Medications Current Medications Acetaminophen (Acetaminophen 325 Mg Tablet) 650 mg PO Q6H PRN PRN Reason: Headache/Pain Mild Scale (1-3) Al Hydroxide/Mg Hydroxide (Magnesium Hydrox/Alum Hydrox 30 Ml Oral.Susp) 30 ml PO Q6H PRN PRN Reason: Heartburn/Nausea Last Admin: 07/06/23 23:01 Dose: 30 ml Albuterol Sulfate (Albuterol Sulfate 90 Mcg 8 Gm Inhaler) 2 puff INHALE Q4H PRN PRN Reason: wheezing Cariprazine (Cariprazine Hcl 1.5 Mg Capsule) 1.5 mg PO DAILY [facility] Last Admin: 07/09/23 08:02 Dose: 1.5 mg Clonazepam (Clonazepam 0.5 Mg Tablet) 0.5 mg PO BID@0900,1400 [facility] Last Admin: 07/09/23 13:38 Dose: 0.5 mg Levothyroxine Sodium (Levothyroxine Sodium 50 Mcg Tablet) 50 mcg PO DAILY@0600 [facility] Last Admin: 07/09/23 04:31 Dose: 50 mcg Magnesium Hydroxide (Milk Of Magnesia 30 Ml Oral.Susp) 30 ml PO DAILY PRN PRN Reason: Constipation Mirtazapine (Mirtazapine 15 Mg Tablet) 15 mg PO BEDTIME [facility] Last Admin: 07/08/23 19:43 Dose: 15 mg Nicotine (Nicotine 21 Mg Patch.Td24) 21 mg TRANSDERMA DAILY [facility] Last Admin: 07/09/23 08:03 Dose: 21 mg Nortriptyline HCl (Nortriptyline Hcl 10 Mg Capsule) 10 mg PO BEDTIME [facility] Last Admin: 07/08/23 19:43 Dose: 10 mg Pramipexole Dihydrochloride (Pramipexole Di-Hcl 0.25 Mg Tablet) 0.25 mg PO BID@0700,1600 [facility] Last Admin: 07/09/23 05:37 Dose: 0.25 mg Pregabalin (Pregabalin 50 Mg Capsule) 50 mg PO QID [facility] Last Admin: 07/09/23 13:38 Dose: 50 mg Zolpidem Tartrate (Zolpidem Tartrate 5 Mg Tablet) 5 mg PO BEDTIME PRN PRN Reason: Insomnia Stop: 07/11/23 09:00 Last Admin: 07/08/23 19:43 Dose: 5 mg Allergies Allergies Allergy/AdvReac Type Severity Reaction Status Date / Time olanzapine [From ZYPREXA] AdvReac Intermediate RLS Verified 06/23/23 08:44 symptoms clonidine AdvReac RLS Verified 06/23/23 08:44 diphenhydramine AdvReac RLS Verified 06/23/23 08:44 [From Benadryl] hydroxyzine AdvReac RLS Verified 06/23/23 08:44 melatonin AdvReac RLS Verified 06/23/23 08:44 atypical antipsychotics AdvReac Severe This class Uncoded 06/23/23 08:44 appears to potentiate RLS/Akathesia Assessment & Plan Assessment & Plan (1) Syncope: Qualifiers: Syncope type: unspecified Qualified Code(s): R55 - Syncope and collapse Status: Acute Code(s): R55 - Syncope and collapse Assessment and Plan: Possible seizure disorder: Arrange a routine EEG. IF that is negative, may required 48 hr EEG. (2) Polysubstance use disorder: Status: Acute Code(s): F19.90 - Other psychoactive substance use, unspecified, uncomplicated (3) Bipolar II disorder: Status: Acute Code(s): F31.81 - Bipolar II disorder Plan 62 yo female, hx of bipolar II disorder, polysubstance use, currently cannabis. Pt missing from home for approx 6 days. Off meds since January 2023 and doing OK until recently. Stressors include son't birthday in , second anniversary of the of her mom and some family discord. Pt by history has not responded well to medications, antipsychotics cause RLS, mood stabilizers are not tolerated. Discussed options with pt for sx of depression, anxiety, mood dysregulation. Plan: ECT/TMS consult-history of effective treatment with both she reports-pt prefers TMS Klonopin 0.5 mg bid prn anxiety Pamelor 10 mg hs Will discuss Vraylar trial, Caplyta trial with pt as well Diagnostics Referral for therapy/pharmacology. Of note, pt has been out of therapy for a time and does well with that modality by history. Collateral contact 07/06/23 Neuro consult-syncope since Apr 2023. 07/07/23 reports doing a little better and likes switch to Clonazepam (from ativan). Pt says however she gets anxious in afteroon and wondered if change could be made. She agreed to scheduling Clonazepam so cover afternoon (pt intends to take both doses anyway). 07/08/23 Insomnia- Ambien 5 HS prn 07/08-07/11 Vraylar 1.5 mg a.m. -monitor for RLS Await neuro consult and ECT/TMS consult 07/09: schedule Klonopin 1 mg at bedtime. Noted ambien ordered 5mg 07/08-07/11 Reason for continued inpatient stay Substantial Risk for: inability to function Time Spent With Patient Time: Total time managing care of this patient today ____ minutes.
[2023-07-09 16:18] VITALS: BP 114/53; PULSE 82; RESP 16; TEMP 36.2; O2SAT 93
[2023-07-09] MEDS: Zolpidem Tartrate 5 MG TABLET PO (21:02)
[2023-07-09] MEDS: clonazePAM 1 MG TABLET PO (21:03)
[2023-07-09] MEDS: Mirtazapine 15 MG TABLET PO (21:03)
[2023-07-09] MEDS: Nortriptyline HCl 10 MG CAPSULE PO (21:03)
[2023-07-10] MEDS: clonazePAM 0.5 MG TABLET PO ×4 (02:48→19:46)
[2023-07-10] MEDS: Levothyroxine Sodium 50 MCG TABLET PO (05:42)
[2023-07-10 08:15] VITALS: BP 114/58; PULSE 77; RESP 16; TEMP 36.1; O2SAT 96
[2023-07-10] MEDS: Nicotine 21 MG PATCH.TD24 TRANSDERMA (08:20)
[2023-07-10] MEDS: Pregabalin 50 MG CAPSULE PO ×4 (08:21→19:46)
[2023-07-10] MEDS: Cariprazine HCl 1.5 MG CAPSULE PO (08:21)
[2023-07-10] MEDS: Pramipexole Di-HCL 0.25 MG TABLET PO ×2 (08:21→16:27)
--- NOTE | 2023-07-10 14:39 | HO.PSYCHPN ---
Subjective Subjective Date of Service: 07/10/23 Reason For Visit: SI Interim History: Met with patient. Discussed with team. Sleep poor last nigth again, slightly better but still poor. Also having very high anxiety levels. Is trying to stay out of her room during the daytime. Reports feeling irritable and also a burden to her . Hopeless. No active SI. That being said is open to ECT treatment and formal review for this after the weekend. No psychosis. Will try higher dose of ambien tonight. Medication Compliance: Yes Side effects from medications: No Attending Groups: Yes Review of Systems Acute medical concerns: No Review of Systems Review of Systems Yes all other systems are reviewed and are negative Mental Status Exam Mental Status Exam Narrative: Pleasant. Engaged. Casually dressed. Self-care fair. Depressed. Anxious. Some helplessness. No active SI. No HI. No agitation or psychosis. Insight and judgment fair Diagnostics Vital Signs (24Hr): Vital Signs - 24 hr 07/09/23 16:18 07/10/23 08:15 Temperature 97.2 F 97.0 F Pulse Rate 82 77 Respiratory Rate 16 16 Blood Pressure 114/53 L 114/58 L Pulse Oximetry 93 96 Oxygen Delivery Method Room Air Room Air BMI result Body Mass Index 20.2 Labs 07/03/23 09:29 07/03/23 09:29 Medications Medications Current Medications Acetaminophen (Acetaminophen 325 Mg Tablet) 650 mg PO Q6H PRN PRN Reason: Headache/Pain Mild Scale (1-3) Al Hydroxide/Mg Hydroxide (Magnesium Hydrox/Alum Hydrox 30 Ml Oral.Susp) 30 ml PO Q6H PRN PRN Reason: Heartburn/Nausea Last Admin: 07/06/23 23:01 Dose: 30 ml Albuterol Sulfate (Albuterol Sulfate 90 Mcg 8 Gm Inhaler) 2 puff INHALE Q4H PRN PRN Reason: wheezing Cariprazine (Cariprazine Hcl 1.5 Mg Capsule) 1.5 mg PO DAILY [facility] Last Admin: 07/10/23 08:21 Dose: 1.5 mg Clonazepam (Clonazepam 0.5 Mg Tablet) 0.5 mg PO BID@0900,1400 [facility] Last Admin: 07/10/23 13:05 Dose: 0.5 mg Clonazepam (Clonazepam 1 Mg Tablet) 1 mg PO BEDTIME [facility] Last Admin: 07/09/23 21:03 Dose: 1 mg Clonazepam (Clonazepam 0.5 Mg Tablet) 0.5 mg PO BEDTIME PRN PRN Reason: insomnia Last Admin: 07/10/23 02:48 Dose: 0.5 mg Levothyroxine Sodium (Levothyroxine Sodium 50 Mcg Tablet) 50 mcg PO DAILY@0600 [facility] Last Admin: 07/10/23 05:42 Dose: 50 mcg Magnesium Hydroxide (Milk Of Magnesia 30 Ml Oral.Susp) 30 ml PO DAILY PRN PRN Reason: Constipation Mirtazapine (Mirtazapine 15 Mg Tablet) 15 mg PO BEDTIME [facility] Last Admin: 07/09/23 21:03 Dose: 15 mg Nicotine (Nicotine 21 Mg Patch.Td24) 21 mg TRANSDERMA DAILY [facility] Last Admin: 07/10/23 08:20 Dose: 21 mg Nortriptyline HCl (Nortriptyline Hcl 10 Mg Capsule) 10 mg PO BEDTIME [facility] Last Admin: 07/09/23 21:03 Dose: 10 mg Pramipexole Dihydrochloride (Pramipexole Di-Hcl 0.25 Mg Tablet) 0.25 mg PO BID@0700,1600 [facility] Last Admin: 07/10/23 08:21 Dose: 0.25 mg Pregabalin (Pregabalin 50 Mg Capsule) 50 mg PO QID [facility] Last Admin: 07/10/23 13:05 Dose: 50 mg Zolpidem Tartrate (Zolpidem Tartrate 5 Mg Tablet) 5 mg PO BEDTIME PRN PRN Reason: Insomnia Stop: 07/11/23 09:00 Last Admin: 07/09/23 21:02 Dose: 5 mg Allergies Allergies Allergy/AdvReac Type Severity Reaction Status Date / Time olanzapine [From ZYPREXA] AdvReac Intermediate RLS Verified 06/23/23 08:44 symptoms clonidine AdvReac RLS Verified 06/23/23 08:44 diphenhydramine AdvReac RLS Verified 06/23/23 08:44 [From Benadryl] hydroxyzine AdvReac RLS Verified 06/23/23 08:44 melatonin AdvReac RLS Verified 06/23/23 08:44 atypical antipsychotics AdvReac Severe This class Uncoded 06/23/23 08:44 appears to potentiate RLS/Akathesia Assessment & Plan Assessment & Plan (1) Syncope: Qualifiers: Syncope type: unspecified Qualified Code(s): R55 - Syncope and collapse Status: Acute Code(s): R55 - Syncope and collapse Assessment and Plan: Possible seizure disorder: Arrange a routine EEG. IF that is negative, may required 48 hr EEG. (2) Polysubstance use disorder: Status: Acute Code(s): F19.90 - Other psychoactive substance use, unspecified, uncomplicated (3) Bipolar II disorder: Status: Acute Code(s): F31.81 - Bipolar II disorder Plan 62 yo female, hx of bipolar II disorder, polysubstance use, currently cannabis. Pt missing from home for approx 6 days. Off meds since January 2023 and doing OK until recently. Stressors include son't birthday in , second anniversary of the of her mom and some family discord. Pt by history has not responded well to medications, antipsychotics cause RLS, mood stabilizers are not tolerated. Discussed options with pt for sx of depression, anxiety, mood dysregulation. Plan: ECT/TMS consult-history of effective treatment with both she reports-pt prefers TMS Klonopin 0.5 mg bid prn anxiety Pamelor 10 mg hs Will discuss Vraylar trial, Caplyta trial with pt as well Diagnostics Referral for therapy/pharmacology. Of note, pt has been out of therapy for a time and does well with that modality by history. Collateral contact 07/06/23 Neuro consult-syncope since Apr 2023. 07/07/23 reports doing a little better and likes switch to Clonazepam (from ativan). Pt says however she gets anxious in afteroon and wondered if change could be made. She agreed to scheduling Clonazepam so cover afternoon (pt intends to take both doses anyway). 07/08/23 Insomnia- Ambien 5 HS prn 07/08-07/11 Vraylar 1.5 mg a.m. -monitor for RLS Await neuro consult and ECT/TMS consult 07/09: schedule Klonopin 1 mg at bedtime. Noted ambien ordered 5mg 07/08-07/11 07/10: try ambien 10mg tonight Reason for continued inpatient stay Substantial Risk for: harm to self and inability to function Time Spent With Patient Time: Total time managing care of this patient today ____ minutes.
[2023-07-10 16:49] VITALS: BP 119/59; PULSE 92; RESP 18; TEMP 37.2; O2SAT 96
[2023-07-10] MEDS: Acetaminophen 325 MG TABLET 650 MG PO (17:11)
[2023-07-10 17:52] LABS: COVID-19 Test Positive (Negative); IDNOW Serial# 6674DD1D
[2023-07-10] MEDS: Zolpidem Tartrate 5 MG TABLET 10 MG PO (19:46)
[2023-07-10] MEDS: clonazePAM 1 MG TABLET PO (19:46)
[2023-07-10] MEDS: Throat Lozenge, Medicated LOZENGE 1 LOZENGE MUCOUS MEM (19:46)
[2023-07-10] MEDS: Ibuprofen 600 MG TABLET PO (19:46)
[2023-07-10] MEDS: Nortriptyline HCl 10 MG CAPSULE PO (19:47)
[2023-07-10] MEDS: Mirtazapine 15 MG TABLET PO (19:48)
[2023-07-11] MEDS: Acetaminophen 325 MG TABLET 650 MG PO (00:02)
[2023-07-11] MEDS: Throat Lozenge, Medicated LOZENGE 1 LOZENGE MUCOUS MEM ×2 (00:03→08:34)
[2023-07-11] MEDS: clonazePAM 0.5 MG TABLET PO ×2 (03:17→08:34)
[2023-07-11] MEDS: Ibuprofen 600 MG TABLET PO ×2 (03:17→10:11)
[2023-07-11] MEDS: Levothyroxine Sodium 50 MCG TABLET PO (06:10)
[2023-07-11] MEDS: Pramipexole Di-HCL 0.25 MG TABLET PO (06:10)
[2023-07-11] MEDS: Nicotine 21 MG PATCH.TD24 TRANSDERMA (08:33)
[2023-07-11] MEDS: Cariprazine HCl 1.5 MG CAPSULE PO (08:34)
[2023-07-11] MEDS: Pregabalin 50 MG CAPSULE PO (08:34)
[2023-07-11 08:40] VITALS: BP 111/66; PULSE 88; RESP 18; TEMP 36.8; O2SAT 95
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
== END 2023-07-11 11:55 | disposition home or self-care (01) | DRG 885 ==
LOC: HO.ED 10:56 → HO.PM5 07-04 18:56
PROVIDERS: Psychiatry & Neurology Psychiatry; Admitting Provider Psychiatry & Neurology Psychiatry; Emergency Provider Emergency Medicine; Visit Provider Clinical Nurse Specialist Psychiatric/Mental Health, Adult
DX: F31.81 Bipolar II disorder (principal); U07.1 COVID-19; R45.851 Suicidal ideations; G25.81 Restless legs syndrome; E03.9 Hypothyroidism, unspecified; F17.210 Nicotine dependence, cigarettes, uncomplicated; Z71.6 Tobacco abuse counseling; Z91.148 Patient's other noncompliance with medication regimen for other reason; Z79.890 Hormone replacement therapy; Z79.899 Other long term (current) drug therapy
CPT/HCPCS: 36415; 80053; 80061; 80307; 81001; 82607; 82746; 83036; 84443; 85025; 87086; 87635; 99285; S9485

== ENCOUNTER → 2023-07-04 17:14 | Outpatient (BNV) | payer OTHER, SELFPAY | PROVIDERS: Admitting Provider Psychiatry & Neurology Psychiatry; Emergency Provider Emergency Medicine; Visit Provider Psychiatry & Neurology Psychiatry | DX: F31.81 Bipolar II disorder (principal); F19.90 Other psychoactive substance use, unspecified, uncomplicated | CPT/HCPCS: 99238 ==

== ENCOUNTER → 2023-07-04 17:14 | Outpatient (BNV) | payer OTHER, SELFPAY | PROVIDERS: Admitting Provider Psychiatry & Neurology Psychiatry; Emergency Provider Emergency Medicine; Visit Provider Clinical Nurse Specialist Psychiatric/Mental Health, Adult | DX: F31.81 Bipolar II disorder (principal); R55 Syncope and collapse; F19.90 Other psychoactive substance use, unspecified, uncomplicated | CPT/HCPCS: 90792; 99232 ==

== ENCOUNTER 2023-07-26 06:45 | Inpatient (IN) | payer OTHER, MEDICAID, SELFPAY ==
--- NOTE | ~2023-07-26 | XR_ITS ---
EXAMINATION: XR CHEST 2 VIEW CLINICAL INFORMATION: Cough COMPARISON: 10/04/2021 TECHNIQUE: PA and lateral views of the chest obtained. FINDINGS: The lungs are hyperinflated but clear. There are no pleural effusions. The cardiomediastinal silhouette is normal. XR/XR chest 2V IMPRESSION: Hyperinflation. No acute cardiopulmonary disease.
[2023-07-26 06:54] VITALS: BP 146/97; BP 178/132; PULSE 100; PULSE 89; RESP 18; TEMP 36.7; O2SAT 94; O2SAT 97; BMI 20.8
--- NOTE | 2023-07-26 08:15 | ED_ITS ---
HPI - Psych General Chief Complaint: Psychiatric Symptoms Stated Complaint: PSYCH EVAL,VOLUNTARY PER EMS Time Seen by Provider: 07/26/23 08:14 Source: patient and RN notes reviewed Mode of arrival: ambulatory Limitations: no limitations History of Present Illness HPI Narrative: This is a 62-year-old female, with history of cocaine use disorder, hypothyroidism, bipolar disorder, COPD, restless leg syndrome, presenting to the emergency department with complaints of increased depression and feeling unsafe due to increasing left stressors. She does not expand on any of the details. She is requesting to speak to her doctors who she saw during her last psychiatric admission. She states that she has been taking all her home medications. She was previously seen in the emergency room on 07/03/2023, was medically cleared and was evaluated by crisis. She was psychiatrically admitted from July 04 through July 11 for syncope, polysubstance use disorder, and bipolar disorder. She denies any suicidal homicidal ideations. No auditory or visual hallucinations. She feels well, no chest pain, shortness of breath, abdominal pain, nausea or diarrhea. She does endorse urinary frequency No other complaints or concerns at this time. MD complaint: feels depressed and substance abuse Onset (ago): week(s) Duration: constant History of same: Yes Relieving factors: none Exacerbating factors: none Context: significant life stressor Associated psychiatric symptoms: depression Associated symptoms: denies other symptoms Treatments prior to arrival: none Related Data Home Medications Medication Instructions Recorded Confirmed levothyroxine 50 mcg tablet 50 mcg PO DAILY 07/03/23 07/26/23 pramipexole 0.25 mg tablet 0.25 mg PO BID 07/03/23 07/26/23 pregabalin 50 mg capsule 50 mg PO QID 07/03/23 07/26/23 clonazepam 1 mg tablet 0.5 mg PO BID@0900,1300 07/26/23 07/26/23 clonazepam 1 mg tablet 1 mg PO BEDTIME 07/26/23 07/26/23 Previous Rx's Medication Instructions Recorded cariprazine 1.5 mg capsule 1.5 mg PO DAILY 30 days #30 caps 07/11/23 (Vraylar) mirtazapine 15 mg tablet 15 mg PO BEDTIME 30 days #30 tabs 07/11/23 nicotine 21 mg/24 hr daily 21 mg transdermal DAILY 21 days 07/11/23 transdermal patch #21 ea nortriptyline 10 mg capsule 10 mg PO BEDTIME 30 days #30 caps 07/11/23 albuterol sulfate 90 mcg/actuation 2 puff inhalation Q4-6H PRN 07/25/23 aerosol inhaler (Ventolin HFA) wheezing 30 days #8.5 grams Allergies Allergy/AdvReac Type Severity Reaction Status Date / Time olanzapine [From ZYPREXA] AdvReac Intermediate RLS Verified 06/23/23 08:44 symptoms clonidine AdvReac RLS Verified 06/23/23 08:44 diphenhydramine AdvReac RLS Verified 06/23/23 08:44 [From Benadryl] hydroxyzine AdvReac RLS Verified 06/23/23 08:44 melatonin AdvReac RLS Verified 06/23/23 08:44 atypical antipsychotics AdvReac Severe This class Uncoded 06/23/23 08:44 appears to potentiate RLS/Akathesia Review of Systems 2 Review of Systems: Yes all other systems are reviewed and are negative Constitutional: Constitutional: Reports as per [facility] Past Medical History Medical History (Updated 07/26/23 @ 14:23 by ELISE Quinn) Syncope Bipolar disorder Bipolar II disorder Polysubstance use disorder Type II diabetes mellitus Smoker Fibromyalgia Cannabis use disorder, moderate, dependence Benzodiazepine abuse Osteoporosis Hypothyroidism Bipolar II disorder RLS (restless legs syndrome) COPD (chronic obstructive pulmonary disease) HLD (hyperlipidemia) Surgical History H/O: hysterectomy Family History Family History Mother No problems noted. Father No problems noted. Son Substance use disorder Social History Social History Household Members: Family Household Members Other:: son's girlfriend Housing: House Do you presently have visiting nurse or other home services: No Unable to assess alcohol history related to: Unknown Alcohol intake: never Comment: Pt reports falling d/t excessive intake of Benzo's prior to admission Patient Tobacco Use Status: Current everyday Tobacco user Tobacco use type: Cigarette Cigarette Packs Per Day: 0.4 Cigarettes Per Day: 8.0 Years Smoked: 45 Smoked in Last 30 Days: No e-Cigarette/Vaping Use: Never Used Second Hand Smoke Exposure: No Use of substances other than those prescribed or required for medical reasons: Unknown Substance Use Type: Amphetamines and Marijuana Advance Directives: No Advance Directives Information Provided: No Healthcare Proxy: No Guardian: No Patient : No service: No Current occupational status: employed Sexual orientation: Straight/Heterosexual Cognitive needs: No Hearing needs: No Vision needs: No Physical Exam 2 Vital Signs: Vital Signs: Last Vital Signs Temp 98.0 F 07/26/23 06:54 Pulse 89 07/26/23 06:54 Resp 18 07/26/23 06:54 BP 146/97 H 07/26/23 06:54 Pulse Ox 94 07/26/23 06:54 O2 Del Method Room Air 07/26/23 06:54 BMI result Body Mass Index 20.8 Const: General: cooperative, comfortable and no acute distress O rientation/consciousness: patient oriented x3 Limitations: no limitations HEENT: Head: Yes normal to inspection, Yes normocephalic and Yes atraumatic Ears: hearing grossly normal bilaterally General nose exam: Normal external nose present Face and sinus: Yes normal facial exam Mouth: Normal oral and palatal mucosa present, oropharynx normal and moist mucous membranes Throat: Yes posterior oropharynx normal Eyes: General: appearance normal, both eyes and all related structures E yelids: Yes eyelids normal Conjunctivae: conjunctivae normal Sclerae: s clerae normal Pupils: Equal, round and reactive pupils present EOM: EOMs intact bilaterally Neck: Neck: Yes normal visual inspection, Yes full ROM and Yes no lymphadenopathy Lymphatic: no lymphadenopathy noted Chest: Chest palpation & inspection: normal inspection of the chest Resp: Effort & Inspection: normal respiratory effort and able to speak in complete sentences Auscultation: clear to auscultation bilaterally, no crackles, no rales, no rhonchi and no wheezes Cardio: Rate: regular rate Rhythm: regular rhythm Heart sounds: S1 normal heart sound present and S2 normal heart sound present GI: Other: Abdomen is soft nontender Inspection: Yes normal to inspection Skin: General skin exam: no rashes or lesions noted Trauma: no lacerations or abrasions Wounds: no wounds Neuro: General: patient oriented x3 and moves all extremities Cranial nerves: Yes Equal, round and reactive pupils present Extrem: General: Yes normal to inspection Right upper extremity: normal to inspection Left upper extremity: normal to inspection Right lower extremity: normal to inspection Left lower extremity: normal to inspection Course Reevaluation(s) Reevaluation #1: Patient has mild leukocytosis with a white blood cell count 13.4, urine appears to be infected Care team saw patient, patient will be admitted psychiatrically for further evaluation and care. Time: 11:13 Reevaluation #2: Chest x-ray negative, patient has mild leukocytosis at 13.4, with mild left shift, will treat as a urinary tract infection at given patient has leuk esterases and wbc's with bacteria. She does report that she has had urinary frequency. Will treat with cefuroxime. Patient's urine drug screen was positive for amphetamines and marijuana. Patient also had encounter with event security officer, feeling very anxious, Ativan 1 mg p.o. ordered. Patient was seen by the care team and patient will be admitted psychiatrically for further treatment, evaluation and care, pending bed placement. Physician observation initiated Time: 14:20 Medications Administered Discontinued Medications Generic Name Dose Route Start Last Admin Trade Name Freq PRN Reason Stop Dose Admin Lorazepam 1 mg 07/26/23 14:55 07/26/23 15:01 Lorazepam 1 Mg Tablet PO 07/26/23 14:56 1 mg ONCE ONE Administration Pramipexole Dihydrochloride 0.5 mg 07/26/23 10:05 07/26/23 10:57 Pramipexole Di-Hcl 0.25 Mg Tablet PO 07/26/23 10:06 0.5 mg ONCE ONE Administration Medical Decision Making Medical Decision Making MDM Narrative: 62-year-old female, bipolar II, cannabis use disorder, polysubstnce use, presenting to the emergency department for crisi evaluation. On arrival, patient mildly hypertensive at 146/97, all other vital signs within normal limits. Patient is nontoxic drain has no physical complaints. Requesting to talk to the psychiatric doctors who she saw during her last admission in June. She reports increased stressors and she is not feeling well mentally and needs to be psychiatrically admitted again. She does not divulge on any details regarding this situation. She denies any SI, HI, AH, VH. Plan: Labs, UA, crisis eval Differential Diagnosis Differential Diagnoses: The differential diagnosis associated with the presentation includes Depression, anxiety, bipolar disorder Admission/Observation Consideration of admission/observation: Escalation of care including admission/observation considered Escalation of care including admission observation was considered given increased worsening psychiatric illness Lab Data [facility] Lab Attestation statement: I reviewed the patient's lab results. See MDM 07/26/23 08:48 07/26/23 08:48 Labs: Lab Results 07/26/23 07/26/23 07/26/23 Range/Units 08:41 08:48 14:22 WBC 13.4 H (4.8-10.8) X10*3/uL RBC 4.52 (4.20-5.50) X10*6/uL Hgb 14.4 (12.0-16.0) g/dl Hct 42.4 (37.0-47.0) % MCV 93.8 (80.0-98.0) fL MCH 31.9 (27.0-33.0) pg MCHC 34.0 (31.0-35.0) g/dl RDW 13.2 (11.0-16.0) % Plt Count 607 H D (160-400) X10*3/uL MPV 9.2 L (9.4-12.3) fL Immature Gran % (Auto) 0.4 (0.0-0.4) % Neut % (Auto) 80.5 H (45-73) % Lymph % (Auto) 13.0 L (20-40) % [place] % (Auto) 5.7 (2-11) % Eos % (Auto) 0.1 (0-4) % Baso % (Auto) 0.3 (0-2) % Lymph # (Auto) 1.7 (1.2-4.9) X10*3/uL [place] # (Auto) 0.8 (0.1-1.2) X10*3/uL Eos # (Auto) 0.0 (0.0-0.4) X10*3/uL Baso # (Auto) 0.0 (0.0-0.2) X10*3/uL Abs Immat Gran (auto) 0.05 H (0.00-0.03) X10*3/uL Absolute Neuts (auto) 10.8 H (2.0-8.3) x10*3/uL Absolute Nucleated RBC 0.000 (0.0-0.012) X10*3/uL Nucleated RBC % (auto) 0.0 (0.0-0.2) /100WBC Sodium 140 (135-145) mmol/L Potassium 4.2 (3.3-5.1) mmol/L Chloride 104 (96-108) mmol/L Carbon Dioxide 23 (22-29) mmol/L Anion Gap 17 (12-20) BUN 10 (9-16) mg/dL Creatinine 0.75 (0.5-1.4) mg/dL Estim Creat Clear Calc 60.2 Estimated GFR > 60 Random Glucose 118 H (60-115) mg/dL Calcium 10.0 D (8.4-10.2) mg/dL Total Bilirubin 0.5 (0.0-1.0) mg/dL Direct Bilirubin 0.2 (0.0-0.5) mg/dL AST 13 (5-31) U/L ALT 8 (0-31) U/L Alkaline Phosphatase 105 (39-117) U/L Total Protein 8.0 (6.5-8.0) g/dL Albumin 4.6 (3.5-5.0) g/dL Urine Color Yellow Urine Appearance Clear Urine pH 6.5 (5.0-9.0) Ur Specific [place] <= 1.005 (1.005-1.025) Urine Protein Negative (Neg-Trace) mg/dL Urine Glucose (UA) Negative (Negative) mg/dL Urine Ketones Negative (Negative) mg/dL Urine Blood Negative (Negative) Urine Nitrite Negative (Negative) Ur Leukocyte Esterase Small (1+) H (Negative) Urine RBC 0-2 (0-2) /HPF Urine WBC 11-20 H (0-5) /HPF Ur Squamous Epith Cells 6-10 (0-2) /HPF Urine Bacteria 2+ (None Seen) Hyaline Casts 0-2 (0-2) /LPF Salicylates < 5.0 L (15-30) mg/dL Urine Opiates Screen Not Detected (Not Detect) Urine Fentanyl Screen Not Detected (Not Detect) Acetaminophen < 3 (<30) mcg/mL Ur Barbiturates Screen Not Detected (Not Detect) Ur Phencyclidine Scrn Not Detected (Not Detect) Ur Amphetamines Screen POSITIVE H (Not Detect) U Benzodiazepines Scrn Not Detected (Not Detect) Urine Cocaine Screen Not Detected (Not Detect) U Marijuana (THC) Screen POSITIVE H (Not Detect) Ethyl Alcohol < 10 mg/dL COVID-19 (WEND[facility]) Negative (Negative) COVID-19 Clin Com See Note Radiology Impression Discussion of test interpretation with radiology: I have reviewed the radiologist's reading. Radiologist Impression: EXAMINATION: XR CHEST 2 VIEW CLINICAL INFORMATION: Cough COMPARISON: 10/04/2021 TECHNIQUE: PA and lateral views of the chest obtained. FINDINGS: The lungs are hyperinflated but clear. There are no pleural effusions. The cardiomediastinal silhouette is normal. XR/XR chest 2V IMPRESSION: Hyperinflation. No acute cardiopulmonary disease. Dictated By: Shlomo Christianson MD Discharge Plan Discharge Clinical Impression: Depression, UTI (urinary tract infection) Patient Disposition: Admitted As Inpatient Interventions: [place]-Suicide Risk Severity Scale Last Done: 07/26/23 16:37
--- NOTE | 2023-07-26 08:33 | PC.NURSE ---
PA eval in process. pt provided food and drink. awaiting orders.
[2023-07-26 08:53] LABS: MANUAL DIFF FLAG NO
[2023-07-26 08:55] LABS: Basophils Percent Auto 0.3 % (0-2); Eosinophils Percent Auto 0.1 % (0-4); Hematocrit 42.4 % (37.0-47.0); Hemoglobin 14.4 g/dl (12.0-16.0); Imm Gran Abs Auto 0.05 X10*3/uL (0.00-0.03); Imm Gran Pct Auto 0.4 % (0.0-0.4); Lymphocytes Absolute Auto 1.7 X10*3/uL (1.2-4.9); Mean Corpuscular Hemoglobin 31.9 pg (27.0-33.0); Mean Corpuscular Volume 93.8 fL (80.0-98.0); Mean Platelet Volume 9.2 fL (9.4-12.3); Monocytes Absolute Auto 0.8 X10*3/uL (0.1-1.2); Monocytes Percent Auto 5.7 % (2-11); Neutrophils Absolute Auto 10.8 x10*3/uL (2.0-8.3); Neutrophils Percent Auto 80.5 % (45-73); Platelet Count 607 X10*3/uL (160-400); Red Blood Count 4.52 X10*6/uL (4.20-5.50); Red Cell Distribution Width 13.2 % (11.0-16.0); White Blood Count 13.4 X10*3/uL (4.8-10.8)
[2023-07-26 08:55] LABS: Appearance Urine Clear; Color Urine Yellow; Glucose Urine UA Negative (Negative); Leukocyte Esterase Urine Small (1+) (Negative); Nitrite Urine Negative (Negative); PH 6.5 (5.0-9.0); Specific Gravity - Urine <= 1.005 (1.005-1.025); UMIC TRIGGER UACC YES; Urine Blood Negative (Negative); Urine Ketones Negative (Negative); Urine Protein Negative (Neg-Trace)
[2023-07-26 08:57] LABS: Bacteria Urine 2+ (None Seen); Hyaline Casts Urine 0-2 /LPF (0-2); RBC Urine 0-2 /HPF (0-2); UACC Culture Trigger YES
[2023-07-26 09:01] LABS: Amphetamine Screen Urine POSITIVE (Not Detect); Barbiturates, Urine Not Detected (Not Detect); Benzodiazepines Screen Urine Not Detected (Not Detect); Cannabinoid Screen Urine POSITIVE (Not Detect); Cocaine Screen Urine Not Detected (Not Detect); Fentanyl, urine Not Detected (Not Detect); Opiate Screen Urine Not Detected (Not Detect); Phencyclidine Screen Urine Not Detected (Not Detect)
[2023-07-26 09:10] LABS: Acetaminophen LAB < 3 mcg/mL (<30); Alanine Aminotransferase 8 U/L (0-31); Albumin Level 4.6 g/dL (3.5-5.0); Alkaline Phosphatase 105 U/L (39-117); Anion Gap 17 (12-20); Aspartate Amino Transferase 13 U/L (5-31); Bilirubin Direct 0.2 mg/dL (0.0-0.5); Bilirubin Total 0.5 mg/dL (0.0-1.0); Blood Urea Nitrogen 10 mg/dL (9-16); Carbon Dioxide 23 mmol/L (22-29); Chloride 104 mmol/L (96-108); Creatinine Clr Calc Pharmacy 60.2; Estimated Glomerular Filt Rate > 60; Ethanol < 10 mg/dL; Glucose Random 118 mg/dL (60-115); Potassium 4.2 mmol/L (3.3-5.1); Salicylate < 5.0 mg/dL (15-30); Sodium 140 mmol/L (135-145)
[2023-07-26] MEDS: Pramipexole Di-HCL 0.25 MG TABLET 0.5 MG PO (10:57)
--- NOTE | 2023-07-26 14:16 | ECG_ITS ---
Test Reason : CLEARENCE Blood Pressure : / mmHG Vent. Rate : 072 BPM Atrial Rate : 072 BPM P-R Int : 122 ms QRS Dur : 096 ms QT Int : 412 ms P-R-T Axes : 067 072 021 degrees QTc Int : 451 ms Normal sinus rhythm Minimal voltage criteria for LVH, may be normal variant ( [place] product ) Septal infarct , age undetermined Abnormal ECG When compared with ECG of 16-FEB-2022 10:16, Septal infarct is now Present Nonspecific T wave abnormality now evident in Anterior leads Referred By: Syl Kolb Electronically Signed By:Sebastian Vivas
[2023-07-26 14:50] LABS: COVID-19 Test Negative (Negative); IDNOW Serial# 08D9AD1C
[2023-07-26] MEDS: LORazepam 1 MG TABLET PO (15:01)
--- NOTE | 2023-07-26 16:19 | PHA.MEDREC ---
Pharmacy Consult ? Medication Reconciliation Pharmacy has completed the medication reconciliation. Patient recently discharged from inpatient unit. Claim history lines up with discharge summary. Vanita Rojas, FelicityD
--- NOTE | 2023-07-26 18:28 | PC.NURSE ---
Meal provided. pt declined lyrica stating she has been weaning herself off of it at home, does not want to continue taking it.
[2023-07-26 18:38] VITALS: BP 96/62; PULSE 65; RESP 18; TEMP 36.4; O2SAT 95
--- NOTE | 2023-07-26 19:10 | PC.NURSE ---
patient appears to remain at rest at present respirations are even and unlabored patient appears in no distress
[2023-07-26] MEDS: Mirtazapine 15 MG TABLET PO (20:51)
[2023-07-26] MEDS: clonazePAM 1 MG TABLET PO (20:51)
[2023-07-26] MEDS: LORazepam 1 MG TABLET 2 MG PO (20:51)
[2023-07-26] MEDS: Nortriptyline HCl 10 MG CAPSULE PO (20:51)
[2023-07-26] MEDS: cefuroxime axetiL 500 MG TABLET PO (20:51)
[2023-07-26] MEDS: Pramipexole Di-HCL 0.25 MG TABLET PO (20:51)
--- NOTE | 2023-07-26 22:09 | PC.ADMIT ---
Jaja arrived to the unit at 1945 via stretcher from the ED, she signed a conditional voluntary. She is a+o to self, place and time, pleasant during interaction with this travel writer, pt with flat affect, minimal eye contact,pt presents as anxious, rated anxiety at 7/10, CIWA score 5, pt given prn ativan 2mg po with good effect. pt denies pain. per crisis team, pt requested for a crisis evaluation due to significant life stressors, she has prior diagnosis of Bipolar disorder as well as substance use disorder. Last assessed by [facility] crisis team 07/03/23 after she presented with increased anxiety, depression, not eating and making suicide statements. pt denied SI/HI upon assessment. pt also denies AH/VH. pt has been isolative to room, comes out to make her needs known. pt reports safe on unit.
[2023-07-27] MEDS: LORazepam 1 MG TABLET PO (02:24)
[2023-07-27] MEDS: Levothyroxine Sodium 50 MCG TABLET PO (06:07)
[2023-07-27 08:00] VITALS: BP 118/57; PULSE 77; RESP 16; TEMP 37; O2SAT 96
[2023-07-27] MEDS: clonazePAM 0.5 MG TABLET PO ×2 (08:09→13:58)
[2023-07-27] MEDS: Thiamine HCL 100 MG TABLET PO (08:09)
[2023-07-27] MEDS: Pramipexole Di-HCL 0.25 MG TABLET PO ×2 (08:09→20:24)
[2023-07-27] MEDS: Multivitamin TABLET 1 TAB PO (08:09)
[2023-07-27] MEDS: Cariprazine HCl 1.5 MG CAPSULE PO (08:09)
[2023-07-27] MEDS: Folic Acid 1 MG TABLET PO (08:09)
[2023-07-27] MEDS: cefuroxime axetiL 500 MG TABLET PO ×2 (08:09→20:24)
[2023-07-27] MEDS: Pregabalin 50 MG CAPSULE PO ×3 (13:58→20:24)
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
[2023-07-27] MEDS: LORazepam 0.5 MG TABLET PO ×2 (16:50→18:36)
[2023-07-27 20:00] VITALS: BP 104/51; PULSE 72; RESP 16; TEMP 36.3; O2SAT 94
--- NOTE | 2023-07-27 20:13 | PC.NURSE ---
Pt came to [facility] agitated and asked for anti anxiety medication. Upon consulting the MAR it appeared she had 0.5mg Ativan available to her. Pt was given the 0.5mg Ativan. However, after giving the medication and letting the pt's nurse know, it was discovered that the pt had been given a dose at 1650 by the pt's nurse. Provider CARIDAD has been advised of error. Pt is sleeping peacefully at this time. Will monitor.
[2023-07-27] MEDS: Lithium Carbonate 300 MG TABLET PO (20:24)
[2023-07-27] MEDS: Nortriptyline HCl 10 MG CAPSULE 20 MG PO (20:24)
[2023-07-27] MEDS: clonazePAM 1 MG TABLET PO (20:24)
[2023-07-28] MEDS: LORazepam 0.5 MG TABLET PO ×3 (02:30→23:53)
[2023-07-28] MEDS: Levothyroxine Sodium 50 MCG TABLET PO (05:45)
[2023-07-28 08:15] VITALS: BP 109/62; PULSE 70; RESP 16; TEMP 36.6; O2SAT 96
[2023-07-28] MEDS: Pregabalin 50 MG CAPSULE PO ×4 (08:19→21:22)
[2023-07-28] MEDS: Multivitamin TABLET 1 TAB PO (08:19)
[2023-07-28] MEDS: cefuroxime axetiL 500 MG TABLET PO ×2 (08:19→21:21)
[2023-07-28] MEDS: Folic Acid 1 MG TABLET PO (08:19)
[2023-07-28] MEDS: clonazePAM 0.5 MG TABLET PO ×2 (08:19→14:22)
[2023-07-28] MEDS: Thiamine HCL 100 MG TABLET PO (08:19)
[2023-07-28] MEDS: Pramipexole Di-HCL 0.25 MG TABLET PO ×2 (08:19→21:21)
[2023-07-28] MEDS: Cariprazine HCl 3 MG CAPSULE PO (08:20)
[2023-07-28 10:29] VITALS: BMI 20.7
[2023-07-28] MEDS: Nicotine 21 MG PATCH.TD24 TRANSDERMA (16:57)
--- NOTE | 2023-07-28 18:53 | HO.PSYCHPN ---
Subjective Subjective Date of Service: 07/28/23 Reason For Visit: Depression Subjective Notes: Conditional Voluntary Healthcare Proxy: No Guardianship: No Medical Problems Affecting Mental Status: No Interim History: Med reivew. Pt continues to report anxiety. Gabapentin refused and discontinued. Tolerating [place], Vraylar- will plan to increase 07/30 Pt presenting with lability, anger with her . She is beginning to engage in a plan to address this-including direct discussion, consideration of couples therapy, setting of new boundaries. Discussed developmental components of current issues- pending half-way, consideration of a move to [place], having all of the children and grandchildren living on their own and not planning to return to the family home. Medication Compliance: Yes Side effects from medications: No Attending Groups: Intermittent Review of Systems Acute medical concerns: No Medical Review of Systems: unchanged Review of Systems Review of Systems Yes all other systems are reviewed and are negative Mental Status Exam Mental Status Exam Patient Appearance: Fatigued and Appropriate Patient Orientation: Person, Place, Time and Situation Level of Consciousness: Alert Patient Behavior: Talkative and Good Eye Contact Mood Description: Depressed and Angry Affect Description: Flat Patient Cognition Impaired: No Ability to Follow Directions: Good Speech Pattern: Spontaneous Speech Memory Description: Intact Hallucinations: None Delusions: Not Present Perceptual Disturbances: Depersonalization and Derealization Thought Process: Rumination Thought Content: positive for Perseveration Depressive Symptoms: Increased Anxiety, Diff. Making Decisions, Increased Irritability, Difficulty Sleeping, Loss of Int. in Activity, Feelings of Worthlessness, Hopelessness, Isolating-Friends/Family, Feelings of Guilt, Unhappiness, Increased Fatigue, Thoughts of /Suicide, Low Self Esteem, Loss of Energy and Difficulty Concentrating Judgement: Fair Diagnostics Vital Signs (24Hr): Vital Signs - 24 hr 07/27/23 20:00 07/28/23 08:15 Temperature 97.3 F 97.8 F Pulse Rate 72 70 Respiratory Rate 16 16 Blood Pressure 104/51 L 109/62 Pulse Oximetry 94 96 Oxygen Delivery Method Room Air Room Air BMI result Body Mass Index 20.7 Labs 07/26/23 08:48 07/26/23 08:48 Imaging Radiology Impressions: ITS Impressions Chest X-Ray 07/26/23 13:53 IMPRESSION: Hyperinflation. No acute cardiopulmonary disease. Medications Medications Current Medications Acetaminophen (Acetaminophen 325 Mg Tablet) 650 mg PO Q6H PRN PRN Reason: Headache/Pain Mild Scale (1-3) Al Hydroxide/Mg Hydroxide (Magnesium Hydrox/Alum Hydrox 30 Ml Oral.Susp) 30 ml PO Q6H PRN PRN Reason: Heartburn/Nausea Albuterol Sulfate (Albuterol Sulfate 90 Mcg 8 Gm Inhaler) 2 puff INHALE Q4H PRN PRN Reason: wheezing Cariprazine (Cariprazine Hcl 3 Mg Capsule) 3 mg PO DAILY [facility] Last Admin: 07/28/23 08:20 Dose: 3 mg Cefuroxime Axetil (Cefuroxime Axetil 500 Mg Tablet) 500 mg PO BID [facility] Stop: 07/30/23 23:59 Last Admin: 07/28/23 08:19 Dose: 500 mg Clonazepam (Clonazepam 0.5 Mg Tablet) 0.5 mg PO BID@0900,1300 [facility] Last Admin: 07/28/23 14:22 Dose: 0.5 mg Clonazepam (Clonazepam 1 Mg Tablet) 1 mg PO BEDTIME [facility] Last Admin: 07/27/23 20:24 Dose: 1 mg Folic Acid (Folic Acid 1 Mg Tablet) 1 mg PO DAILY [facility] Last Admin: 07/28/23 08:19 Dose: 1 mg Levothyroxine Sodium (Levothyroxine Sodium 50 Mcg Tablet) 50 mcg PO DAILY@0600 [facility] Last Admin: 07/28/23 05:45 Dose: 50 mcg [place] Carbonate ([place] Carbonate 300 Mg Tablet) 300 mg PO BEDTIME [facility] Last Admin: 07/27/23 20:24 Dose: 300 mg Lorazepam (Lorazepam 0.5 Mg Tablet) 0.5 mg PO Q8H PRN PRN Reason: breakthrough anxiety Last Admin: 07/28/23 11:19 Dose: 0.5 mg Lorazepam (Lorazepam 0.5 Mg Tablet) 0.5 mg PO BEDTIME PRN PRN Reason: Insomnia Magnesium Hydroxide (Milk Of Magnesia 30 Ml Oral.Susp) 30 ml PO DAILY PRN PRN Reason: Constipation Multivitamins/Vitamin C (Multivitamin Tablet) 1 tab PO DAILY [facility] Last Admin: 07/28/23 08:19 Dose: 1 tab Nicotine (Nicotine 21 Mg Patch.Td24) 21 mg TRANSDERMA DAILY PRN PRN Reason: smoking cessation Last Admin: 07/28/23 16:57 Dose: 21 mg Nicotine Polacrilex (Nicotine Polacrilex 2 Mg Gum) 4 mg BUCCAL Q2H PRN PRN Reason: Nicotine Cravings Nortriptyline HCl (Nortriptyline Hcl 10 Mg Capsule) 20 mg PO BEDTIME [facility] Last Admin: 07/27/23 20:24 Dose: 20 mg Pramipexole Dihydrochloride (Pramipexole Di-Hcl 0.25 Mg Tablet) 0.25 mg PO BID [facility] Last Admin: 07/28/23 08:19 Dose: 0.25 mg Pregabalin (Pregabalin 50 Mg Capsule) 50 mg PO QID [facility] Last Admin: 07/28/23 16:57 Dose: 50 mg Thiamine HCl (Thiamine Hcl 100 Mg Tablet) 100 mg PO DAILY [facility] Last Admin: 07/28/23 08:19 Dose: 100 mg Allergies Allergies Allergy/AdvReac Type Severity Reaction Status Date / Time olanzapine [From ZYPREXA] AdvReac Intermediate RLS Verified 06/23/23 08:44 symptoms clonidine AdvReac RLS Verified 06/23/23 08:44 diphenhydramine AdvReac RLS Verified 06/23/23 08:44 [From Benadryl] hydroxyzine AdvReac RLS Verified 06/23/23 08:44 melatonin AdvReac RLS Verified 06/23/23 08:44 atypical antipsychotics AdvReac Severe This class Uncoded 06/23/23 08:44 appears to potentiate RLS/Akathesia Assessment & Plan Assessment & Plan (1) Bipolar II disorder: Status: Acute Code(s): F31.81 - Bipolar II disorder Plan 62 yo female, history of Bipolar Disorder, presents with SI, acute situational crisis and wanting increase in support regarding marital and family discord. Plan: Increase Vraylar to 3 mg daily [place] 300 mg daily Increase Nortriptyline to 20 mg HS Discontinue Remeron Collateral contact ?Couples therapy Follow up with neuro from last admit re syncope Review diagnostics. 07/28/23 Continue current plan and regime. Patient educated on: medication risk/benefits and therapeutic strategies Informed Consent: understands and further education needed Reason for continued inpatient stay Substantial Risk for: rapid decompensation Time Spent With Patient Time: Total time managing care of this patient today ____ minutes.
[2023-07-28 20:30] VITALS: BP 123/71; PULSE 76; TEMP 36.4
[2023-07-28] MEDS: clonazePAM 1 MG TABLET PO (21:20)
[2023-07-28] MEDS: Nortriptyline HCl 10 MG CAPSULE 20 MG PO (21:20)
[2023-07-28] MEDS: Lithium Carbonate 300 MG TABLET PO (21:21)
[2023-07-29] MEDS: Levothyroxine Sodium 50 MCG TABLET PO ×2 (05:23→05:31)
[2023-07-29] MEDS: Acetaminophen 325 MG TABLET 650 MG PO (05:23)
[2023-07-29] MEDS: cefuroxime axetiL 500 MG TABLET PO ×2 (08:07→19:37)
[2023-07-29] MEDS: Pregabalin 50 MG CAPSULE PO ×4 (08:07→19:37)
[2023-07-29] MEDS: Pramipexole Di-HCL 0.25 MG TABLET PO ×2 (08:07→19:38)
[2023-07-29] MEDS: Folic Acid 1 MG TABLET PO (08:07)
[2023-07-29] MEDS: Cariprazine HCl 3 MG CAPSULE PO (08:07)
[2023-07-29] MEDS: Multivitamin TABLET 1 TAB PO (08:07)
[2023-07-29] MEDS: clonazePAM 0.5 MG TABLET PO ×2 (08:07→12:22)
[2023-07-29] MEDS: Thiamine HCL 100 MG TABLET PO (08:07)
[2023-07-29 08:25] VITALS: BP 122/81; PULSE 74; RESP 16; TEMP 36.1; O2SAT 96
[2023-07-29] MEDS: LORazepam 0.5 MG TABLET PO ×2 (10:39→19:09)
[2023-07-29] MEDS: Albuterol Sulfate 90 MCG 8 GM INHALER 2 PUFF INHALE (11:29)
[2023-07-29] MEDS: Nicotine 21 MG PATCH.TD24 TRANSDERMA (13:37)
--- NOTE | 2023-07-29 15:23 | P.PNPSI_ITS ---
Subjective Subjective Date of Service: 07/29/23 Reason For Visit: Depression Subjective Notes: Conditional Voluntary and 3 Day Healthcare Proxy: No Guardianship: No Medical Problems Affecting Mental Status: No Interim History: Struggling with an escalated milieu. Demands discharge. Discussed feeling bullied by 2 female peers. Three day notice signed Attempted to help pt keep on track with her goals, medication titration, processing of anger with . Tolerating [place] and Vraylar. Titration 07/30 Medication Compliance: Yes Side effects from medications: No Attending Groups: Intermittent Review of Systems Acute medical concerns: No Medical Review of Systems: unchanged Mental Status Exam Mental Status Exam Patient Appearance: Fatigued and Appropriate Patient Orientation: Person, Place, Time and Situation Level of Consciousness: Alert Patient Behavior: Talkative and Good Eye Contact Mood Description: Depressed and Angry Affect Description: Flat Patient Cognition Impaired: No Ability to Follow Directions: Good Speech Pattern: Spontaneous Speech Memory Description: Intact Hallucinations: None Delusions: Not Present Perceptual Disturbances: Depersonalization and Derealization Thought Process: Rumination Thought Content: positive for Perseveration Depressive Symptoms: Increased Anxiety, Diff. Making Decisions, Increased Irritability, Difficulty Sleeping, Loss of Int. in Activity, Feelings of Worthlessness, Hopelessness, Isolating-Friends/Family, Feelings of Guilt, Unhappiness, Increased Fatigue, Thoughts of /Suicide, Low Self Esteem, Loss of Energy and Difficulty Concentrating Judgement: Fair Diagnostics Vital Signs (24Hr): Vital Signs - 24 hr 07/28/23 20:30 07/29/23 08:25 Temperature 97.5 F 97 F Pulse Rate 76 74 Respiratory Rate 16 Blood Pressure 123/71 122/81 Pulse Oximetry 96 Oxygen Delivery Method Room Air BMI result Body Mass Index 20.7 Labs 07/26/23 08:48 07/26/23 08:48 Imaging Radiology Impressions: ITS Impressions Chest X-Ray 07/26/23 13:53 IMPRESSION: Hyperinflation. No acute cardiopulmonary disease. Medications Medications Current Medications Acetaminophen (Acetaminophen 325 Mg Tablet) 650 mg PO Q6H PRN PRN Reason: Headache/Pain Mild Scale (1-3) Last Admin: 07/29/23 05:23 Dose: 650 mg Al Hydroxide/Mg Hydroxide (Magnesium Hydrox/Alum Hydrox 30 Ml Oral.Susp) 30 ml PO Q6H PRN PRN Reason: Heartburn/Nausea Albuterol Sulfate (Albuterol Sulfate 90 Mcg 8 Gm Inhaler) 2 puff INHALE Q4H PRN PRN Reason: wheezing Last Admin: 07/29/23 11:29 Dose: 2 puff Cariprazine (Cariprazine Hcl 1.5 Mg Capsule) 4.5 mg PO DAILY [facility] Cefuroxime Axetil (Cefuroxime Axetil 500 Mg Tablet) 500 mg PO BID [facility] Stop: 07/30/23 23:59 Last Admin: 07/29/23 08:07 Dose: 500 mg Clonazepam (Clonazepam 0.5 Mg Tablet) 0.5 mg PO BID@0900,1300 [facility] Last Admin: 07/29/23 12:22 Dose: 0.5 mg Clonazepam (Clonazepam 1 Mg Tablet) 1 mg PO BEDTIME [facility] Last Admin: 07/28/23 21:20 Dose: 1 mg Folic Acid (Folic Acid 1 Mg Tablet) 1 mg PO DAILY [facility] Last Admin: 07/29/23 08:07 Dose: 1 mg Levothyroxine Sodium (Levothyroxine Sodium 50 Mcg Tablet) 50 mcg PO DAILY@0600 [facility] Last Admin: 07/29/23 05:31 Dose: 50 mcg [place] Carbonate ([place] Carbonate 300 Mg Tablet) 300 mg PO BID [facility] Lorazepam (Lorazepam 0.5 Mg Tablet) 0.5 mg PO Q8H PRN PRN Reason: breakthrough anxiety Last Admin: 07/29/23 10:39 Dose: 0.5 mg Lorazepam (Lorazepam 0.5 Mg Tablet) 0.5 mg PO BEDTIME PRN PRN Reason: Insomnia Magnesium Hydroxide (Milk Of Magnesia 30 Ml Oral.Susp) 30 ml PO DAILY PRN PRN Reason: Constipation Multivitamins/Vitamin C (Multivitamin Tablet) 1 tab PO DAILY [facility] Last Admin: 07/29/23 08:07 Dose: 1 tab Nicotine (Nicotine 21 Mg Patch.Td24) 21 mg TRANSDERMA DAILY PRN PRN Reason: smoking cessation Last Admin: 07/29/23 13:37 Dose: 21 mg Nicotine Polacrilex (Nicotine Polacrilex 2 Mg Gum) 4 mg BUCCAL Q2H PRN PRN Reason: Nicotine Cravings Nortriptyline HCl (Nortriptyline Hcl 10 Mg Capsule) 20 mg PO BEDTIME [facility] Last Admin: 07/28/23 21:20 Dose: 20 mg Pramipexole Dihydrochloride (Pramipexole Di-Hcl 0.25 Mg Tablet) 0.25 mg PO BID [facility] Last Admin: 07/29/23 08:07 Dose: 0.25 mg Pregabalin (Pregabalin 50 Mg Capsule) 50 mg PO QID [facility] Last Admin: 07/29/23 12:22 Dose: 50 mg Thiamine HCl (Thiamine Hcl 100 Mg Tablet) 100 mg PO DAILY [facility] Last Admin: 07/29/23 08:07 Dose: 100 mg Allergies Allergies Allergy/AdvReac Type Severity Reaction Status Date / Time olanzapine [From ZYPREXA] AdvReac Intermediate RLS Verified 06/23/23 08:44 symptoms clonidine AdvReac RLS Verified 06/23/23 08:44 diphenhydramine AdvReac RLS Verified 06/23/23 08:44 [From Benadryl] hydroxyzine AdvReac RLS Verified 06/23/23 08:44 melatonin AdvReac RLS Verified 06/23/23 08:44 atypical antipsychotics AdvReac Severe This class Uncoded 06/23/23 08:44 appears to potentiate RLS/Akathesia Assessment & Plan Assessment & Plan (1) Bipolar II disorder: Status: Acute Code(s): F31.81 - Bipolar II disorder Plan 62 yo female, history of Bipolar Disorder, presents with SI, acute situational crisis and wanting increase in support regarding marital and family discord. Plan: Increase Vraylar to 3 mg daily [place] 300 mg daily Increase Nortriptyline to 20 mg HS Discontinue Remeron Collateral contact ?Couples therapy Follow up with neuro from last admit re syncope Review diagnostics. 07/29/23 Increase Vraylar to 4.5 mg 07/30. Increase [place] to 300 mg bid 07/30. Patient educated on: medication risk/benefits and therapeutic strategies Informed Consent: understands and further education needed Reason for continued inpatient stay Substantial Risk for: rapid decompensation Time Spent With Patient Time: Total time managing care of this patient today ____ minutes.
[2023-07-29 16:18] VITALS: BP 109/51; PULSE 76; RESP 16; TEMP 36.2; O2SAT 95
[2023-07-29] MEDS: Lithium Carbonate 300 MG TABLET PO (19:37)
[2023-07-29] MEDS: clonazePAM 1 MG TABLET PO (19:38)
[2023-07-29] MEDS: Nortriptyline HCl 10 MG CAPSULE 20 MG PO (19:38)
[2023-07-30] MEDS: LORazepam 0.5 MG TABLET PO ×4 (00:30→22:27)
[2023-07-30 08:32] VITALS: BP 113/55; PULSE 72; RESP 16; TEMP 36.9; O2SAT 95
[2023-07-30] MEDS: clonazePAM 0.5 MG TABLET PO ×2 (08:35→12:32)
[2023-07-30] MEDS: Thiamine HCL 100 MG TABLET PO (08:35)
[2023-07-30] MEDS: Folic Acid 1 MG TABLET PO (08:35)
[2023-07-30] MEDS: Multivitamin TABLET 1 TAB PO (08:35)
[2023-07-30] MEDS: cefuroxime axetiL 500 MG TABLET PO ×2 (08:35→21:15)
[2023-07-30] MEDS: Pregabalin 50 MG CAPSULE PO ×4 (08:35→21:15)
[2023-07-30] MEDS: Pramipexole Di-HCL 0.25 MG TABLET PO ×2 (08:35→21:15)
[2023-07-30] MEDS: Lithium Carbonate 300 MG TABLET PO ×2 (08:35→21:15)
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
[2023-07-30] MEDS: Cariprazine HCl 1.5 MG CAPSULE PO (09:03)
[2023-07-30] MEDS: Cariprazine HCl 3 MG CAPSULE PO (09:03)
[2023-07-30] MEDS: Nicotine 21 MG PATCH.TD24 TRANSDERMA (17:25)
[2023-07-30 17:33] VITALS: BP 110/61; PULSE 81; RESP 20; TEMP 36.6; O2SAT 93
[2023-07-30] MEDS: clonazePAM 1 MG TABLET PO (21:15)
[2023-07-30] MEDS: Nortriptyline HCl 10 MG CAPSULE 20 MG PO (21:15)
[2023-07-31] MEDS: QUEtiapine Fumarate 25 MG TABLET 12.5 MG PO ×2 (02:49→18:07)
[2023-07-31] MEDS: Levothyroxine Sodium 50 MCG TABLET PO (06:04)
[2023-07-31] MEDS: LORazepam 0.5 MG TABLET PO ×2 (06:29→16:35)
[2023-07-31 08:04] LABS: Lithium 0.45 mmol/L (0.60-1.20)
[2023-07-31 08:17] VITALS: BP 115/82; PULSE 79; RESP 16; TEMP 37; O2SAT 95
[2023-07-31] MEDS: Pramipexole Di-HCL 0.25 MG TABLET PO ×2 (08:26→19:53)
[2023-07-31] MEDS: Pregabalin 50 MG CAPSULE PO ×4 (08:26→19:52)
[2023-07-31] MEDS: Thiamine HCL 100 MG TABLET PO (08:26)
[2023-07-31] MEDS: Multivitamin TABLET 1 TAB PO (08:26)
[2023-07-31] MEDS: Cariprazine HCl 1.5 MG CAPSULE PO (08:26)
[2023-07-31] MEDS: Folic Acid 1 MG TABLET PO (08:26)
[2023-07-31] MEDS: Cariprazine HCl 3 MG CAPSULE PO (08:26)
[2023-07-31] MEDS: Lithium Carbonate 300 MG TABLET PO ×2 (08:27→19:53)
[2023-07-31] MEDS: clonazePAM 0.5 MG TABLET PO ×2 (08:27→12:51)
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
[2023-07-31] MEDS: Nicotine 21 MG PATCH.TD24 TRANSDERMA (12:52)
[2023-07-31 17:33] VITALS: BP 117/70; PULSE 78; RESP 16; TEMP 36; O2SAT 94
[2023-07-31] MEDS: Nortriptyline HCl 10 MG CAPSULE 20 MG PO (19:52)
[2023-07-31] MEDS: clonazePAM 1 MG TABLET PO (19:52)
[2023-08-01] MEDS: LORazepam 0.5 MG TABLET PO (02:35)
[2023-08-01] MEDS: Levothyroxine Sodium 50 MCG TABLET PO (05:37)
[2023-08-01] MEDS: QUEtiapine Fumarate 25 MG TABLET 12.5 MG PO (05:38)
[2023-08-01 06:00] VITALS: BP 115/68; PULSE 76; TEMP 36.6; O2SAT 95
[2023-08-01] MEDS: Pregabalin 50 MG CAPSULE PO (08:16)
[2023-08-01] MEDS: Cariprazine HCl 3 MG CAPSULE PO (08:16)
[2023-08-01] MEDS: Multivitamin TABLET 1 TAB PO (08:16)
[2023-08-01] MEDS: Pramipexole Di-HCL 0.25 MG TABLET PO (08:16)
[2023-08-01] MEDS: clonazePAM 0.5 MG TABLET PO (08:16)
[2023-08-01] MEDS: Folic Acid 1 MG TABLET PO (08:16)
[2023-08-01] MEDS: Lithium Carbonate 300 MG TABLET PO (08:16)
[2023-08-01] MEDS: Thiamine HCL 100 MG TABLET PO (08:16)
[2023-08-01] MEDS: Cariprazine HCl 1.5 MG CAPSULE PO (08:16)
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
== END 2023-08-01 11:31 | disposition home or self-care (01) | DRG 885 ==
LOC: HO.ED 14:57 → HO.PM5 19:07
PROVIDERS: Physician Assistant Medical; Admitting Provider Psychiatry & Neurology Psychiatry; Emergency Provider Emergency Medicine Emergency Medical Services; Visit Provider Clinical Nurse Specialist Psychiatric/Mental Health, Adult
DX: F31.81 Bipolar II disorder (principal); R45.851 Suicidal ideations; N39.0 Urinary tract infection, site not specified; E03.9 Hypothyroidism, unspecified; F43.10 Post-traumatic stress disorder, unspecified; F17.210 Nicotine dependence, cigarettes, uncomplicated; Z71.6 Tobacco abuse counseling; Z20.822 Contact with and (suspected) exposure to COVID-19; Z79.890 Hormone replacement therapy; Z79.899 Other long term (current) drug therapy
CPT/HCPCS: 36415; 71046; 80048; 80076; 80143; 80178; 80179; 80307; 81001; 85025; 87086; 87635; 93005; 99285; S9485

== ENCOUNTER → 2023-07-26 14:16 | Outpatient (BNV) | payer MEDICARE, MEDICAID, SELFPAY | PROVIDERS: Admitting Provider Psychiatry & Neurology Psychiatry; Emergency Provider Emergency Medicine Emergency Medical Services; Visit Provider Internal Medicine Cardiovascular Disease | DX: R94.31 Abnormal electrocardiogram [ECG] [EKG] (principal) | CPT/HCPCS: 93010 ==

== ENCOUNTER → 2023-07-26 18:22 | Outpatient (BNV) | payer OTHER, SELFPAY | PROVIDERS: Admitting Provider Psychiatry & Neurology Psychiatry; Emergency Provider Emergency Medicine Emergency Medical Services; Visit Provider Clinical Nurse Specialist Psychiatric/Mental Health, Adult | DX: F31.81 Bipolar II disorder (principal) | CPT/HCPCS: 90792; 99231; 99232; 99239 ==

== ENCOUNTER 2023-08-12 08:03 | Outpatient (AMB) | payer MEDICARE, MEDICAID, SELFPAY ==
--- NOTE | 2023-08-12 08:07 | AM.OFFWIN_ITS ---
Intake Vital Signs 08/12/23 08:09 Height 5 ft 1 in Weight 115 lb 6 oz BMI 21.8 BP 112/64 Blood Pressure Location Lt brachial Position Sitting Pulse 95 Pulse Source Pulse Oximeter Temp 98 F Temp Source Oral Pulse Oximetry (%) 94 Oxygen Delivery Method Room Air Intake Visit Reasons: EST/sinus infection/uti(lobby masked) Intake Note: Pt is here today for sinus infection and possible uti, pt states it started 1 wk ago Patient Tobacco Use Status: Current everyday Tobacco user Allergies olanzapine [From ZYPREXA] Adverse Reaction (Intermediate, Verified 08/12/23 08:22) RLS symptoms clonidine Adverse Reaction (Verified 08/12/23 08:22) RLS diphenhydramine [From Benadryl] Adverse Reaction (Verified 08/12/23 08:22) RLS hydroxyzine Adverse Reaction (Verified 08/12/23 08:22) RLS melatonin Adverse Reaction (Verified 08/12/23 08:22) RLS atypical antipsychotics Adverse Reaction (Severe, Uncoded 08/12/23 08:22) This class appears to potentiate RLS/Akathesia Medication List - Last Reconciled 08/12/23 by Stephan Mitchell MD albuterol sulfate 90 mcg/actuation (Ventolin HFA) 2 puffs inhalation Q4-6H PRN 30 days cariprazine (Vraylar) 3 mg PO DAILY cariprazine (Vraylar) 1.5 mg PO DAILY clonazepam 0.5 mg PO BID@0900,1300 clonazepam 1 mg PO BEDTIME clonazepam (Klonopin) 0.5 - 1 mg (0.5 - 1 x 1 mg) PO DIRECTED folic acid 1 mg PO DAILY levothyroxine 50 mcg PO DAILY lithium carbonate 300 mg PO BID multivitamin (Daily-Oswaldo tablet) 1 tab PO DAILY nicotine 21 mg transdermal DAILY 21 days nortriptyline 20 mg (2 x 10 mg) PO BEDTIME pramipexole 0.25 mg PO BID pregabalin 50 mg PO QID thiamine mononitrate (vit B1) 100 mg PO DAILY Do you need a note to return to daycare/school/sports/work: No HPI EST/sinus infection/uti(lobby masked) HPI Details 62-year-old female presents to the [facility] for a sick visit. Patient is reporting symptoms of sinus congestion, left-sided face pain and headaches for the past few days. Postnasal drip present. She was in the hospital for Psychiatry issues and attended for 5 days in the previous week. She believes she had a mild urinary tract infection and was on some kind antibiotic. She would like to have the urine checked again. [facility] Medical History Syncope Bipolar disorder Bipolar II disorder Polysubstance use disorder Type II diabetes mellitus Smoker Fibromyalgia Cannabis use disorder, moderate, dependence Benzodiazepine abuse Osteoporosis Hypothyroidism Bipolar II disorder RLS (restless legs syndrome) COPD (chronic obstructive pulmonary disease) HLD (hyperlipidemia) Surgical History H/O: hysterectomy Family History Mother No problems noted. Father No problems noted. Son Substance use disorder Social History Household Members: Spouse Household Members Other:: son's girlfriend Housing: House Do you presently have visiting nurse or other home services: No Unable to assess alcohol history related to: Unknown Alcohol intake: never Comment: Pt reports falling d/t excessive intake of Benzo's prior to admission Patient Tobacco Use Status: Current everyday Tobacco user Tobacco use type: Cigarette Cigarette Packs Per Day: 0.4 Cigarettes Per Day: 8.0 Years Smoked: 45 e-Cigarette/Vaping Use: Never Used Second Hand Smoke Exposure: No Substance Use Type: Marijuana service: No Current occupational status: employed Sexual orientation: Straight/Heterosexual Cognitive needs: No Hearing needs: No Vision needs: No Physical Exam Vital Signs: Last Vital Signs Temp 98 F 08/12/23 08:09 Pulse 95 08/12/23 08:09 BP 112/64 08/12/23 08:09 Pulse Ox 94 08/12/23 08:09 Oxygen Delivery Method Room Air 08/12/23 08:09 BMI result Body Mass Index 21.8 Const General: cooperative and healthy appearing Nutritional Appearance: well nourished Orientation/consciousness: patient oriented x3 Limitations: no limitations HEENT Head: Yes normal to inspection Eyes General: appearance normal, both eyes and all related structures Neck Neck: Yes normal visual inspection Chest Chest palpation & inspection: normal palpation of entire chest wall Resp Effort & Inspection: normal respiratory effort Neuro General: patient oriented x3 Results AMB Urinalysis, Automated UA Leukoctes 0 Regan/uL Last Edit by Tobin Oconnor CMA on 08/12/23 08:21 UA Nitrite Negative Last Edit by Tobin Oconnor CMA on 08/12/23 08:21 UA Urobilinogen 0.2 mg/dL Last Edit by Tobin Oconnor CMA on 08/12/23 08 :21 UA Protein 0 mg/dL Last Edit by Tobin Oconnor CMA on 08/12/23 08:21 UA pH 6.0 Last Edit by Tobin Oconnor CMA on 08/12/23 08:21 UA Blood 0 Isaak/uL Last Edit by Tobin Oconnor CMA on 08/12/23 08:21 UA [place] 1.010 Last Edit by Tobin Oconnor CMA on 08/12/23 08:21 UA Ketone Negative Last Edit by Tobin Oconnor CMA on 08/12/23 08:21 UA Bilirubin 0 mg/dL Last Edit by Tobin Oconnor CMA on 08/12/23 08:21 UA Glucose 0 mg/dL Last Edit by Tobin Oconnor CMA on 08/12/23 08:21 Results Reviewed Results Reviewed: Laboratory Last Values Urine pH (Auto) 6.0 08/12/23 08:20 [place] (Auto) 1.010 08/12/23 08:20 Urine Protein (Auto) 0 mg/dL 08/12/23 08:20 Glucose (UA)(Auto) 0 mg/dL 08/12/23 08:20 Urine Ketones (Auto) Negative 08/12/23 08:20 Urine Blood (Auto) 0 Isaak/uL 08/12/23 08:20 Urine Nitrite (Auto) Negative 08/12/23 08:20 Urine Bilirubin (Auto) 0 mg/dL 08/12/23 08:20 Urine Urobilinogen (Auto) 0.2 mg/dL 08/12/23 08:20 Leukocyte Esterase (Auto) 0 Regan/uL 08/12/23 08:20 Assessment & Plan Assessment & Plan (1) Upper respiratory tract infection: Code(s): J06.9 - Acute upper respiratory infection, unspecified Plan: Antibiotics ordered. Increase fluid intake. Tylenol for aches and pains. If symptoms worsen, follow-up here for a recheck. (2) Urinary tract infection: Code(s): N39.0 - Urinary tract infection, site not specified Plan: Urinalysis shows no evidence of infection. Pyrridium added to the regimen. Orders: Orders 2 AMB Urinalysis Automated Today Z13.9 - Encounter for screening, unspecified Coding Level of Care Code Est Pt Level 3 (22208) Diagnoses Upper respiratory tract infection J06.9 Urinary tract infection N39.0
[2023-08-12 08:09] VITALS: BP 112/64; PULSE 95; TEMP 36.6; O2SAT 94; BMI 21.8
== END 2023-08-12 08:37 | disposition home or self-care (01) ==
PROVIDERS: PCP Nurse Practitioner Family; Visit Provider Internal Medicine
DX: J06.9 Acute upper respiratory infection, unspecified (principal); N39.0 Urinary tract infection, site not specified; Z13.9 Encounter for screening, unspecified
CPT/HCPCS: 81003; 99213

== ENCOUNTER 2023-09-01 12:36 | Outpatient (RCR) | payer MEDICARE, MEDICAID, SELFPAY ==
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
== END 2023-09-01 14:00 | disposition home or self-care (01) ==
LOC: HO.PTMS 12:36
PROVIDERS: Visit Provider Psychiatry & Neurology Psychiatry
DX: F33.9 Major depressive disorder, recurrent, unspecified (principal); F43.10 Post-traumatic stress disorder, unspecified; F90.9 Attention-deficit hyperactivity disorder, unspecified type
CPT/HCPCS: 99214

== ENCOUNTER 2023-10-29 05:54 | Inpatient (IN) | payer MEDICARE, OTHER, SELFPAY ==
[2023-10-29 06:07] VITALS: BP 154/88; PULSE 72; O2SAT 98
[2023-10-29 06:12] VITALS: BP 134/62; PULSE 80; RESP 16; TEMP 36.3; O2SAT 96; BMI 20.8
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
--- NOTE | 2023-10-29 08:12 | PC.NURSE ---
patient resting quietly in BH1, respirations equal and unlabored, skin dry and intact.
[2023-10-29 08:44] LABS: MANUAL DIFF FLAG NO
[2023-10-29 09:06] LABS: Alanine Aminotransferase 11 U/L (0-31); Albumin Level 3.8 g/dL (3.5-5.0); Alkaline Phosphatase 110 U/L (39-117); Anion Gap 11 (12-20); Aspartate Amino Transferase 14 U/L (5-31); Bilirubin Total 0.2 mg/dL (0.0-1.0); Blood Urea Nitrogen 22 mg/dL (9-16); Calcium 9.2 mg/dL (8.4-10.2); Carbon Dioxide 28 mmol/L (22-29); Chloride 103 mmol/L (96-108); Creatinine Clr Calc Pharmacy 53.7; Estimated Glomerular Filt Rate > 60; Ethanol < 10 mg/dL; Glucose Random 129 mg/dL (60-115); Magnesium 1.9 mg/dL (1.6-2.6); Potassium 4.5 mmol/L (3.3-5.1); Sodium 137 mmol/L (135-145); Total Protein 6.3 g/dL (6.5-8.0)
[2023-10-29 09:15] LABS: Basophils Percent Auto 0.3 % (0-2); Eosinophils Absolute Auto 0.1 X10*3/uL (0.0-0.4); Eosinophils Percent Auto 1.4 % (0-4); Hematocrit 41.2 % (37.0-47.0); Hemoglobin 13.9 g/dl (12.0-16.0); Imm Gran Abs Auto 0.04 X10*3/uL (0.00-0.03); Imm Gran Pct Auto 0.4 % (0.0-0.4); Mean Corpuscular HGB Conc 33.7 g/dl (31.0-35.0); Mean Corpuscular Hemoglobin 32.2 pg (27.0-33.0); Mean Corpuscular Volume 95.4 fL (80.0-98.0); Mean Platelet Volume 9.8 fL (9.4-12.3); Monocytes Absolute Auto 0.7 X10*3/uL (0.1-1.2); Monocytes Percent Auto 7.5 % (2-11); Neutrophils Absolute Auto 6.3 x10*3/uL (2.0-8.3); Neutrophils Percent Auto 68.4 % (45-73); Platelet Count 380 X10*3/uL (160-400); Red Blood Count 4.32 X10*6/uL (4.20-5.50); Red Cell Distribution Width 13.1 % (11.0-16.0); White Blood Count 9.2 X10*3/uL (4.8-10.8)
[2023-10-29 10:03] LABS: Influenza A PCR NEGATIVE (Negative); Influenza B PCR NEGATIVE (Negative); Resp Syncy Virus RNA Qual PCR NEGATIVE (Negative); SARS COV2 PCR INHOUSE NEGATIVE (Negative)
[2023-10-29] MEDS: LORazepam 1 MG TABLET PO ×2 (13:19→23:46)
[2023-10-29 13:21] VITALS: BP 117/70; PULSE 66; RESP 20; TEMP 36.8; O2SAT 96
--- NOTE | 2023-10-29 19:45 | PC.NURSE ---
Assumed care for pt at 1900. Pt is currently sleeping at the bedside. No apparent distress noted. Breaths even regular and unlabored. On a section 12. Pending urine sample. Monitoring is ongoing.
[2023-10-29 20:26] LABS: Appearance Urine Turbid; Color Urine Yellow; Glucose Urine UA Negative (Negative); Leukocyte Esterase Urine Negative (Negative); Nitrite Urine Negative (Negative); Specific Gravity - Urine 1.015 (1.005-1.025); Urine Blood Negative (Negative); Urine Ketones Negative (Negative); Urine Protein Negative (Neg-Trace)
[2023-10-29 20:35] LABS: Amphetamine Screen Urine POSITIVE (Not Detect); Barbiturates, Urine Not Detected (Not Detect); Benzodiazepines Screen Urine Not Detected (Not Detect); Cannabinoid Screen Urine POSITIVE (Not Detect); Cocaine Screen Urine Not Detected (Not Detect); Fentanyl, urine Not Detected (Not Detect); Opiate Screen Urine Not Detected (Not Detect); Phencyclidine Screen Urine Not Detected (Not Detect)
[2023-10-29] MEDS: Pramipexole Di-HCL 0.25 MG TABLET PO (20:46)
--- NOTE | 2023-10-30 01:18 | PC.NURSE ---
Pt is sleeping at the bedside. No apparent distress noted. Breaths are even regular and unlabored. Monitoring is ongoing.
[2023-10-30 06:00] VITALS: BP 126/83; PULSE 78; RESP 12; O2SAT 98
--- NOTE | 2023-10-30 07:30 | PC.NURSE ---
PT IS SLEEPING RESP EVEN AND UNLABORED. WILL CONTINUE TO MONITOR.
[2023-10-30 07:41] VITALS: RESP 16
[2023-10-30 08:07] VITALS: BP 114/88; PULSE 78; RESP 17; TEMP 36.4; O2SAT 96
[2023-10-30] MEDS: Pramipexole Di-HCL 0.25 MG TABLET PO ×2 (08:08→19:54)
--- NOTE | 2023-10-30 08:08 | PC.NURSE ---
PT IS A/O X 4 NO SOB/MIGUEL A NOTED SPEAKS IN FULL SENTENCES. PT IS CALM AND CO-OP. DENIES ANY PAIN/DISC. DENIES ANY SI/HI. AMB (I) GAIT STEADY. PT AWARE OF PLAN OF CARE. WILL CONTINUE TO MONITOR.
[2023-10-30] MEDS: LORazepam 1 MG TABLET PO ×3 (08:09→19:54)
--- NOTE | 2023-10-30 08:26 | PC.NURSE ---
PT C/O INCREASE ANXIETY MED X 1 WITH ATIVAN 1MG PO.
--- NOTE | 2023-10-30 12:25 | ECG_ITS ---
Test Reason : CHECK QT Blood Pressure : / mmHG Vent. Rate : 067 BPM Atrial Rate : 067 BPM P-R Int : 126 ms QRS Dur : 104 ms QT Int : 392 ms P-R-T Axes : 074 073 070 degrees QTc Int : 414 ms Normal sinus rhythm Minimal voltage criteria for LVH, may be normal variant ( Merlin product ) Septal infarct (cited on or before 26-JUL-2023) Nonspecific ST and T wave abnormality Abnormal ECG When compared with ECG of 26-JUL-2023 15:55, Nonspecific ST and T wave abnormality present Referred By: Rivka Garsia Electronically Signed By:JEANNINE ORELLANA
--- NOTE | 2023-10-30 12:30 | PC.NURSE ---
RN TO RN REPORT GIVEN TO RAJI. PT AWARE OF PLAN OF CARE FOR TRANSFFER TO ROOM 319 VIA W/C.
--- NOTE | 2023-10-30 12:45 | PC.NURSE ---
PT WAS ALL SET TO BE TRANSFERRED TO M3, PT ADAMANTLY REFUSED STATING THAT SHE WANTS TO GO TO M5. CARE TEAM IS AWARE.
[2023-10-30 14:24] VITALS: BP 155/94; PULSE 81; TEMP 36.3
[2023-10-30 14:28] VITALS: BP 155/94; PULSE 88; RESP 16; TEMP 36.6; O2SAT 98
[2023-10-30 14:37] VITALS: BMI 17.8
[2023-10-30 16:35] VITALS: BP 145/77; PULSE 70; RESP 16; TEMP 36.3; O2SAT 97
--- NOTE | 2023-10-30 18:55 | MHC.CARE ---
[facility] authorized 6 days [id number] review on 11/03 with Carolina Bain at [phone] x [phone]
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
[2023-10-31 07:54] VITALS: BP 156/83; PULSE 76; RESP 16; TEMP 36; O2SAT 96
[2023-10-31] MEDS: Pramipexole Di-HCL 0.25 MG TABLET PO ×2 (08:20→20:03)
[2023-10-31] MEDS: LORazepam 1 MG TABLET PO ×3 (08:24→20:55)
[2023-10-31 09:03] LABS: Estimated Average Glucose 128 mg/dL; Hemoglobin A1c % 6.1 % (<6.0)
[2023-10-31 09:13] LABS: Alanine Aminotransferase 14 U/L (0-31); Albumin Level 3.9 g/dL (3.5-5.0); Alkaline Phosphatase 110 U/L (39-117); Anion Gap 10 (12-20); Aspartate Amino Transferase 12 U/L (5-31); Bilirubin Total 0.3 mg/dL (0.0-1.0); Blood Urea Nitrogen 13 mg/dL (9-16); Calcium 9.1 mg/dL (8.4-10.2); Carbon Dioxide 25 mmol/L (22-29); Chloride 105 mmol/L (96-108); Cholesterol 226 mg/dL (<200); Creatinine Clr Calc Pharmacy 49.7; Estimated Glomerular Filt Rate > 60; Glucose Fasting 126 mg/dL (60-99); HDL Cholesterol 64 mg/dL (>40); LDL Cholesterol Calculated 142 mg/dL (<100); Potassium 4.5 mmol/L (3.3-5.1); Sodium 135 mmol/L (135-145); Total Protein 6.6 g/dL (6.5-8.0); Triglycerides 103 mg/dL (<150)
--- NOTE | 2023-10-31 09:18 | PC.NURSE ---
Discussed nicotine replacement therapy (NRT) options. Pt declined all NRT. Pt encouraged to inform staff if she decides she would like NRT.
[2023-10-31 09:28] LABS: Thyroid Stimulating Hormone 9.02 uIU/mL (0.32-4.0)
[2023-10-31 09:30] LABS: Vitamin B12 414 pg/mL (200-900)
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
[2023-10-31 17:26] VITALS: BP 125/78; PULSE 102; RESP 18; TEMP 36.3; O2SAT 97
[2023-10-31] MEDS: Albuterol Sulfate 90 MCG 8 GM INHALER 2 PUFF INHALE (21:14)
[2023-11-01] MEDS: LORazepam 1 MG TABLET PO ×4 (03:20→19:37)
[2023-11-01] MEDS: Levothyroxine Sodium 50 MCG TABLET PO (06:17)
[2023-11-01 08:04] VITALS: BP 92/54; PULSE 83; RESP 16; TEMP 36; O2SAT 95
[2023-11-01 08:44] VITALS: BP 111/65; PULSE 94
[2023-11-01] MEDS: Thiamine HCL 100 MG TABLET PO (08:47)
[2023-11-01] MEDS: Pramipexole Di-HCL 0.25 MG TABLET PO ×2 (08:47→19:37)
[2023-11-01] MEDS: Folic Acid 1 MG TABLET PO (08:47)
[2023-11-01] MEDS: Multivitamin TABLET 1 TAB PO (08:47)
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
[2023-11-01 16:21] VITALS: BP 114/75; PULSE 88; RESP 18; TEMP 36.4; O2SAT 97
[2023-11-02] MEDS: LORazepam 1 MG TABLET PO ×6 (00:30→20:27)
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
[2023-11-02 08:03] VITALS: BP 108/61; PULSE 88; RESP 16; TEMP 35.9; O2SAT 95
[2023-11-02] MEDS: Levothyroxine Sodium 50 MCG TABLET PO (08:18)
[2023-11-02] MEDS: Multivitamin TABLET 1 TAB PO (08:18)
[2023-11-02] MEDS: Cariprazine HCl 1.5 MG CAPSULE PO (08:18)
[2023-11-02] MEDS: Folic Acid 1 MG TABLET PO (08:19)
[2023-11-02] MEDS: Pramipexole Di-HCL 0.25 MG TABLET PO ×2 (08:19→20:18)
[2023-11-02] MEDS: Thiamine HCL 100 MG TABLET PO (08:19)
[2023-11-02] MEDS: Acetaminophen 325 MG TABLET 650 MG PO (15:46)
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
[2023-11-02 18:00] VITALS: BP 113/72; PULSE 84; TEMP 2.1; TEMP 35.8; O2SAT 96
[2023-11-02] MEDS: Albuterol Sulfate 90 MCG 8 GM INHALER 2 PUFF INHALE (20:30)
--- NOTE | 2023-11-02 21:52 | PC.NURSE ---
Pt submitted a Three Day Notice on Tuesday11/02/2023 up on Tuesday11/07/2023.
[2023-11-03] MEDS: LORazepam 1 MG TABLET PO ×6 (01:19→23:25)
[2023-11-03] MEDS: Levothyroxine Sodium 50 MCG TABLET PO (05:09)
[2023-11-03 07:00] VITALS: BMI 19.2
[2023-11-03] MEDS: Cariprazine HCl 1.5 MG CAPSULE PO (08:23)
[2023-11-03] MEDS: Multivitamin TABLET 1 TAB PO (08:23)
[2023-11-03] MEDS: Folic Acid 1 MG TABLET PO (08:23)
[2023-11-03] MEDS: Pramipexole Di-HCL 0.25 MG TABLET PO ×2 (08:23→23:25)
[2023-11-03] MEDS: Thiamine HCL 100 MG TABLET PO (08:23)
[2023-11-03 08:45] VITALS: BP 133/90; PULSE 74; RESP 18; TEMP 36; O2SAT 96
[2023-11-03] MEDS: Albuterol Sulfate 90 MCG 8 GM INHALER 2 PUFF INHALE (09:35)
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
[2023-11-03 18:00] VITALS: BP 135/69; PULSE 87; TEMP 36.9; O2SAT 99
[2023-11-04] MEDS: Levothyroxine Sodium 50 MCG TABLET PO (05:23)
[2023-11-04] MEDS: LORazepam 1 MG TABLET PO ×4 (06:20→18:33)
[2023-11-04] MEDS: Thiamine HCL 100 MG TABLET PO (08:18)
[2023-11-04] MEDS: Pramipexole Di-HCL 0.25 MG TABLET PO ×2 (08:18→20:25)
[2023-11-04] MEDS: Folic Acid 1 MG TABLET PO (08:18)
[2023-11-04] MEDS: Cariprazine HCl 3 MG CAPSULE PO (08:18)
[2023-11-04] MEDS: Multivitamin TABLET 1 TAB PO (08:18)
[2023-11-04 10:46] VITALS: BP 114/61; PULSE 81; RESP 18; TEMP 36.7; O2SAT 97
[2023-11-04 18:00] VITALS: BP 115/58; PULSE 80; TEMP 36.4
[2023-11-04] MEDS: Nicotine 21 MG PATCH.TD24 TRANSDERMA (18:04)
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
[2023-11-04] MEDS: Mirtazapine 7.5 MG TABLET PO (20:24)
[2023-11-05] MEDS: LORazepam 1 MG TABLET PO ×6 (00:05→20:59)
[2023-11-05] MEDS: Levothyroxine Sodium 50 MCG TABLET PO (05:41)
[2023-11-05 08:21] VITALS: BP 112/55; PULSE 84; RESP 16; TEMP 36.8; O2SAT 98
[2023-11-05] MEDS: Nicotine 21 MG PATCH.TD24 TRANSDERMA (08:25)
[2023-11-05] MEDS: Cariprazine HCl 3 MG CAPSULE PO (08:26)
[2023-11-05] MEDS: Pramipexole Di-HCL 0.25 MG TABLET PO ×2 (08:26→20:59)
[2023-11-05] MEDS: Thiamine HCL 100 MG TABLET PO (08:26)
[2023-11-05] MEDS: Folic Acid 1 MG TABLET PO (08:26)
[2023-11-05] MEDS: Multivitamin TABLET 1 TAB PO (08:26)
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
[2023-11-05] MEDS: Albuterol Sulfate 90 MCG 8 GM INHALER 2 PUFF INHALE (16:42)
[2023-11-05 18:00] VITALS: BP 113/65; PULSE 96; RESP 14; TEMP 36.6; O2SAT 94
[2023-11-05] MEDS: Mirtazapine 7.5 MG TABLET PO (20:59)
[2023-11-06] MEDS: LORazepam 1 MG TABLET PO ×5 (01:41→20:31)
[2023-11-06] MEDS: Levothyroxine Sodium 50 MCG TABLET PO (06:15)
[2023-11-06 08:08] VITALS: BP 126/70; PULSE 84; RESP 16; TEMP 36.4; O2SAT 98
[2023-11-06] MEDS: Nicotine 21 MG PATCH.TD24 TRANSDERMA (08:30)
[2023-11-06] MEDS: Cariprazine HCl 3 MG CAPSULE PO (08:31)
[2023-11-06] MEDS: Folic Acid 1 MG TABLET PO (08:31)
[2023-11-06] MEDS: Pramipexole Di-HCL 0.25 MG TABLET PO ×2 (08:31→20:31)
[2023-11-06] MEDS: Multivitamin TABLET 1 TAB PO (08:31)
[2023-11-06] MEDS: Thiamine HCL 100 MG TABLET PO (08:31)
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
[2023-11-06 17:24] VITALS: BP 125/62; PULSE 83; RESP 16; TEMP 36.4; O2SAT 97
[2023-11-06] MEDS: Mirtazapine 7.5 MG TABLET PO (20:31)
[2023-11-07] MEDS: LORazepam 1 MG TABLET PO ×3 (01:03→10:27)
[2023-11-07] MEDS: Levothyroxine Sodium 50 MCG TABLET PO (05:27)
[2023-11-07 07:42] VITALS: BP 114/70; PULSE 88; RESP 16; TEMP 36.8; O2SAT 96
[2023-11-07] MEDS: Thiamine HCL 100 MG TABLET PO (07:57)
[2023-11-07] MEDS: Cariprazine HCl 3 MG CAPSULE PO (07:58)
[2023-11-07] MEDS: Pramipexole Di-HCL 0.25 MG TABLET PO (07:58)
[2023-11-07] MEDS: Nicotine 21 MG PATCH.TD24 TRANSDERMA (07:58)
[2023-11-07] MEDS: Folic Acid 1 MG TABLET PO (07:58)
[2023-11-07] MEDS: Multivitamin TABLET 1 TAB PO (07:58)
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
== END 2023-11-07 11:56 | disposition home or self-care (01) | DRG 885 ==
LOC: HO.ED 07:11 → HO.PADLT16 10-30 10:42 → HO.EDOVER 10-30 13:27 → HO.PM5 10-30 13:29
PROVIDERS: Physician Assistant Medical; Admitting Provider Social Worker; Emergency Provider Emergency Medicine; Visit Provider Clinical Nurse Specialist Psychiatric/Mental Health, Adult
DX: F31.32 Bipolar disorder, current episode depressed, moderate (principal); R45.851 Suicidal ideations; F43.10 Post-traumatic stress disorder, unspecified; E03.9 Hypothyroidism, unspecified; F17.210 Nicotine dependence, cigarettes, uncomplicated; Z71.6 Tobacco abuse counseling; Z20.822 Contact with and (suspected) exposure to COVID-19; Z79.890 Hormone replacement therapy; Z79.899 Other long term (current) drug therapy
CPT/HCPCS: 0241U; 36415; 80053; 80061; 80307; 81003; 82607; 83036; 83735; 84443; 85025; 93005; 99285; S9485

== ENCOUNTER 2023-10-30 10:34 | Outpatient (BNV) | payer MEDICARE, SELFPAY | END 2023-10-30 12:25 | PROVIDERS: Admitting Provider Social Worker; Emergency Provider Emergency Medicine; Visit Provider Internal Medicine | DX: I45.81 Long QT syndrome (principal) | CPT/HCPCS: 93010 ==

== ENCOUNTER → 2023-10-30 10:34 | Outpatient (BNV) | payer OTHER, SELFPAY | PROVIDERS: Admitting Provider Social Worker; Emergency Provider Emergency Medicine; Visit Provider Clinical Nurse Specialist Psychiatric/Mental Health, Adult | DX: F31.32 Bipolar disorder, current episode depressed, moderate (principal); F43.11 Post-traumatic stress disorder, acute; F19.90 Other psychoactive substance use, unspecified, uncomplicated; E03.9 Hypothyroidism, unspecified | CPT/HCPCS: 90792; 99231; 99232; 99238 ==

== ENCOUNTER 2023-11-11 19:51 | Emergency (ER) | payer OTHER, SELFPAY ==
--- NOTE | ~2023-11-11 | US_ITS ---
EXAMINATION: US ABDOMEN LIMITED CLINICAL INFORMATION: Right upper quadrant pain. COMPARISON: None available. TECHNIQUE: Real-time imaging of the right upper quadrant abdominal viscera. FINDINGS: PANCREAS: Pancreatic body and tail are obscured by overlying bowel gas. The visualized portions of the pancreatic head are within normal limits. LIVER: Increased parenchymal echogenicity. Otherwise, normal in size and morphology. No discrete focal mass. No intrahepatic biliary ductal dilatation. GALLBLADDER: No evidence of stones, sludge, polyps, wall thickening or pericholecystic fluid. COMMON BILE DUCT: Normal in caliber measuring 0.4 cm in diameter. RIGHT KIDNEY: No hydronephrosis. No renal calculi or focal parenchymal lesions. The kidney measures 9.9 cm in maximum dimension. FREE FLUID: Moderate volume of free fluid in the right upper quadrant around the liver and right kidney. US/US abdomen limited IMPRESSION: 1. Moderate volume of free fluid in the right upper quadrant around the liver and right kidney, nonspecific further evaluation with CT abdomen as clinically indicated. 2. Increased parenchymal echogenicity of the liver is nonspecific that could be seen in the setting of hepatic steatosis or hepatocellular disease.
--- NOTE | ~2023-11-11 | CT_ITS ---
EXAMINATION: CT ABDOMEN AND PELVIS WITH CONTRAST CLINICAL INFORMATION: Right upper quadrant ultrasound showed fluid COMPARISON: Ultrasound 11/11/2023 TECHNIQUE: Multidetector volumetric images were obtained from the superior aspect of the liver through the pubic symphysis following administration 85 mL of Omnipaque 350 intravenous contrast. Sagittal and coronal reformatted images were obtained on the technologist's workstation. Oral contrast: No This CT examination was performed using dose optimization techniques as appropriate, variously including the following: *Automated exposure control *Adjustment of mA and/or kV according to patient size (this includes techniques or standardized protocols for targeted exams where dose is matched to indication/reason for exam; i.e. extremities or head) *Use of iterative reconstruction technique DLP: 286 mGy-cm FINDINGS: LUNG BASES: Mild dependent atelectasis. LIVER, GALLBLADDER, AND BILIARY TREE: The liver is normal in size, shape, and attenuation. No focal hepatic lesion is identified. Mild intrahepatic biliary ductal prominence. The gallbladder is unremarkable. PANCREAS: Parenchymal enhancement appears homogeneous. Small calcification in the region of the proximal body. Limited evaluation for surrounding localized inflammation due to diffuse mesenteric edema. SPLEEN: Unremarkable. ADRENAL GLANDS: Unremarkable. KIDNEYS AND URETERS: Bilateral nephrograms are symmetric. No hydronephrosis or obstructing calculus identified. Tiny calculus in the left upper pole. BLADDER: Partially distended with mild diffuse mural prominence. GASTROINTESTINAL TRACT: There is a thick-walled appearance of the distal esophagus. No evidence of bowel obstruction. No significant bowel wall thickening is seen. Appendix appears nondilated. Small amount of fluid throughout the abdomen/pelvis along with diffuse mesenteric stranding/edema. No free air is seen. ABDOMINAL WALL: No significant hernia is appreciated. LYMPH NODES: Normal. VASCULAR: There is atherosclerotic calcification along the aorta and iliac arteries. PELVIC VISCERA: Patient is suspected to be status post hysterectomy. OSSEOUS STRUCTURES: Unremarkable. CT/CT abdomen pelvis w IV con IMPRESSION: 1. Small amount of fluid throughout the abdomen/pelvis along with diffuse mesenteric stranding/edema. 2. Thick-walled appearance of the distal esophagus, which could reflect esophagitis in the proper clinical setting. Underlying mass cannot be excluded, and this could be further assessed with endoscopy. 3. Mild intrahepatic biliary ductal prominence, of uncertain clinical significance. 4. Mild diffuse mural prominence of the urinary bladder, which could be due to underdistention or cystitis.
[2023-11-11 20:06] VITALS: BP 146/82; BP 165/87; PULSE 80; RESP 15; TEMP 36.8; O2SAT 98; BMI 20.8
[2023-11-11 20:21] LABS: MANUAL DIFF FLAG NO
[2023-11-11 20:22] LABS: Basophils Absolute Auto 0.1 X10*3/uL (0.0-0.2); Basophils Percent Auto 0.6 % (0-2); Eosinophils Absolute Auto 0.1 X10*3/uL (0.0-0.4); Eosinophils Percent Auto 1.5 % (0-4); Hematocrit 37.1 % (37.0-47.0); Hemoglobin 12.6 g/dl (12.0-16.0); Imm Gran Abs Auto 0.02 X10*3/uL (0.00-0.03); Imm Gran Pct Auto 0.2 % (0.0-0.4); Lymphocytes Absolute Auto 1.3 X10*3/uL (1.2-4.9); Lymphocytes Percent Auto 15.6 % (20-40); Mean Corpuscular Hemoglobin 32.3 pg (27.0-33.0); Mean Corpuscular Volume 95.1 fL (80.0-98.0); Mean Platelet Volume 9.1 fL (9.4-12.3); Monocytes Absolute Auto 0.9 X10*3/uL (0.1-1.2); Monocytes Percent Auto 10.3 % (2-11); Neutrophils Absolute Auto 6.2 x10*3/uL (2.0-8.3); Neutrophils Percent Auto 71.8 % (45-73); Platelet Count 472 X10*3/uL (160-400); Red Cell Distribution Width 13.3 % (11.0-16.0); White Blood Count 8.6 X10*3/uL (4.8-10.8)
[2023-11-11 20:36] LABS: Alanine Aminotransferase 13 U/L (0-31); Albumin Level 4.2 g/dL (3.5-5.0); Alkaline Phosphatase 108 U/L (39-117); Anion Gap 10 (12-20); Aspartate Amino Transferase 15 U/L (5-31); Bilirubin Total 0.3 mg/dL (0.0-1.0); Blood Urea Nitrogen 15 mg/dL (9-16); Carbon Dioxide 32 mmol/L (22-29); Chloride 96 mmol/L (96-108); Creatinine Clr Calc Pharmacy 55.7; Estimated Glomerular Filt Rate > 60; Glucose Random 127 mg/dL (60-115); Lipase 14 U/L (8-78); Potassium 4.5 mmol/L (3.3-5.1); Sodium 133 mmol/L (135-145)
--- NOTE | 2023-11-11 21:02 | ED.ABDPAIN ---
HPI - Abdominal Pain General Chief Complaint: Abdominal Pain Stated Complaint: ABD PAIN Time Seen by Provider: 11/11/23 19:59 Source: patient Mode of arrival: ambulatory Limitations: no limitations History of Present Illness HPI narrative: Patient history of diabetes bipolar disorder depression anxiety comes here for mid abdominal pain radiating to the back started an hour after eating food at 14:00 feel nauseated no vomiting no diarrhea no fever no chills no urinary complaints no history of kidney stone in the past Related Data Previous Rx's Medication Instructions Recorded albuterol sulfate 90 mcg/actuation 2 puff inhalation Q4-6H PRN 11/07/23 aerosol inhaler (Ventolin HFA) wheezing 30 days #1 inhaler cariprazine 3 mg capsule (Vraylar) 3 mg PO DAILY #30 caps 11/07/23 folic acid 1 mg tablet 1 mg PO DAILY #3 tabs 11/07/23 levothyroxine 50 mcg tablet 50 mcg PO DAILY@0600 #30 tabs 11/07/23 lorazepam 1 mg tablet 1 mg PO DAILY PRN anxiety #7 tabs 11/07/23 mirtazapine 7.5 mg tablet 7.5 mg PO BEDTIME #30 tabs 11/07/23 multivitamin (Daily-Oswaldo tablet) 1 tab PO DAILY #30 tabs 11/07/23 nicotine 21 mg/24 hr daily 21 mg transdermal DAILY #30 ea 11/07/23 transdermal patch pramipexole 0.25 mg tablet 0.25 mg PO BID #60 tabs 11/07/23 thiamine mononitrate (vit B1) 100 100 mg PO DAILY #30 tabs 11/07/23 mg tablet pantoprazole 40 mg tablet,delayed 40 mg PO DAILY #30 tabs 11/12/23 release (Protonix) sucralfate 1 gram tablet 1 g PO BID #60 tabs 11/12/23 Allergies Allergy/AdvReac Type Severity Reaction Status Date / Time olanzapine [From ZYPREXA] AdvReac Intermediate RLS Verified 08/12/23 08:22 symptoms clonidine AdvReac RLS Verified 08/12/23 08:22 diphenhydramine AdvReac RLS Verified 08/12/23 08:22 [From Benadryl] hydroxyzine AdvReac RLS Verified 08/12/23 08:22 melatonin AdvReac RLS Verified 08/12/23 08:22 atypical antipsychotics AdvReac Severe This class Uncoded 08/12/23 08:22 appears to potentiate RLS/Akathesia Review of Systems Review of Systems Yes all other systems are reviewed and are negative [facility] Past Medical History Medical History Syncope Bipolar disorder Type II diabetes mellitus Smoker Fibromyalgia Cannabis use disorder, moderate, dependence Benzodiazepine abuse Osteoporosis Hypothyroidism Bipolar II disorder RLS (restless legs syndrome) COPD (chronic obstructive pulmonary disease) HLD (hyperlipidemia) Surgical History H/O: hysterectomy Family History Family History Mother No problems noted. Father No problems noted. Son Substance use disorder Social History Social History Household Members: Spouse Household Members Other:: son's girlfriend Housing: House Do you presently have visiting nurse or other home services: No Unable to assess alcohol history related to: Unknown Alcohol intake: never Comment: Pt reports falling d/t excessive intake of Benzo's prior to admission Patient Tobacco Use Status: Current everyday Tobacco user Tobacco use type: Cigarette Cigarette Packs Per Day: 1 Cigarettes Per Day: 20.0 Years Smoked: 45 Smoked in Last 30 Days: Yes e-Cigarette/Vaping Use: Never Used Second Hand Smoke Exposure: Yes Use of substances other than those prescribed or required for medical reasons: No Substance Use Type: Marijuana Advance Directives: No Advance Directives Information Provided: Yes Patient : No service: No Current occupational status: employed Sexual orientation: Straight/Heterosexual Cognitive needs: No Hearing needs: No Vision needs: No Physical Exam ED Vital Signs: Vital Signs - 24 hr 11/11/23 20:06 11/12/23 00:05 Temperature 98.2 F 97.6 F Pulse Rate 80 87 Respiratory Rate 15 18 Blood Pressure 146/82 H 113/70 Pulse Oximetry 98 95 Oxygen Delivery Method Room Air Room Air BMI result Body Mass Index 20.8 Appearance: Alert. Oriented X3. No acute distress. Eyes: PERRLA, No Nystagmus ENT: Pharynx normal. Oral Mucosa moist Neck: Normal inspection. Neck supple. CVS: Normal heart rate and rhythm. Pulses normal. Respiratory: No respiratory distress. Equal air entry bilateral, no wheezing/rales/rhonchi Abdomen: Soft and tenderness in upper abdomen right upper quadrant and epigastric area with guarding no rebound tenderness. Bowel sounds are present, no mass palpable, no CVA tenderness Skin: Skin warm and dry. Normal skin color. Normal skin turgor. Extremities: No lower extremity edema. No calf tenderness Neuro: Oriented X 3. No motor deficit. No sensory deficit.No cerebellar signs , cranial nerves II-XII intact Medical Decision Making Medical Decision Making [facility] Narrative: Patient nonspecific abdominal pain with history of diabetes , depression normal WBC count no signs of infection has epigastric tenderness ultrasound showed some fluid collection CT scan also showed slight mesenteric edema nonspecific will discharge patient home patient taking p.o. fluids Differential Diagnosis Differential Diagnoses: The differential diagnosis associated with the presentation includes Pancreatitis/cholecystitis/colitis Lab Data [facility] Lab Attestation statement: I reviewed the patient's lab results. 11/11/23 20:18 11/11/23 20:18 Labs: Lab Results 11/11/23 Range/Units 20:18 WBC 8.6 (4.8-10.8) X10*3/uL RBC 3.90 L (4.20-5.50) X10*6/uL Hgb 12.6 (12.0-16.0) g/dl Hct 37.1 (37.0-47.0) % MCV 95.1 (80.0-98.0) fL MCH 32.3 (27.0-33.0) pg MCHC 34.0 (31.0-35.0) g/dl RDW 13.3 (11.0-16.0) % Plt Count 472 H (160-400) X10*3/uL MPV 9.1 L (9.4-12.3) fL Immature Gran % (Auto) 0.2 (0.0-0.4) % Neut % (Auto) 71.8 (45-73) % Lymph % (Auto) 15.6 L (20-40) % [place] % (Auto) 10.3 (2-11) % Eos % (Auto) 1.5 (0-4) % Baso % (Auto) 0.6 (0-2) % Lymph # (Auto) 1.3 (1.2-4.9) X10*3/uL [place] # (Auto) 0.9 (0.1-1.2) X10*3/uL Eos # (Auto) 0.1 (0.0-0.4) X10*3/uL Baso # (Auto) 0.1 (0.0-0.2) X10*3/uL Abs Immat Gran (auto) 0.02 (0.00-0.03) X10*3/uL Absolute Neuts (auto) 6.2 (2.0-8.3) x10*3/uL Absolute Nucleated RBC 0.000 (0.0-0.012) X10*3/uL Nucleated RBC % (auto) 0.0 (0.0-0.2) /100WBC Sodium 133 L (135-145) mmol/L Potassium 4.5 (3.3-5.1) mmol/L Chloride 96 (96-108) mmol/L Carbon Dioxide 32 H (22-29) mmol/L Anion Gap 10 L (12-20) BUN 15 (9-16) mg/dL Creatinine 0.80 (0.5-1.4) mg/dL Estim Creat Clear Calc 55.7 Estimated GFR > 60 Random Glucose 127 H (60-115) mg/dL Calcium 10.0 D (8.4-10.2) mg/dL Total Bilirubin 0.3 (0.0-1.0) mg/dL AST 15 (5-31) U/L ALT 13 (0-31) U/L Alkaline Phosphatase 108 (39-117) U/L Total Protein 7.0 (6.5-8.0) g/dL Albumin 4.2 (3.5-5.0) g/dL Lipase 14 (8-78) U/L Independent Interpretation I performed an independent interpretation of an: Ultrasound and CT Scan Radiology Impression Discussion of test interpretation with radiology: I have reviewed the radiologist's reading. Medications Administered Discontinued Medications Generic Name Dose Route Start Last Admin Trade Name Freq PRN Reason Stop Dose Admin Sodium Chloride 1,000 mls @ 999 mls/hr 11/11/23 21:27 11/11/23 21:36 Ns IV 11/11/23 22:27 999 mls/hr .Q1H1M ONE Administration Morphine Sulfate 4 mg 11/11/23 21:27 11/11/23 21:38 Morphine Sulfate 4 Mg/Ml Cartridge IVPUSH 11/11/23 21:28 4 mg ONCE ONE Administration Protocol Ondansetron HCl 4 mg 11/11/23 21:27 11/11/23 21:38 Ondansetron Hcl 4 Mg/2 Ml Vial IVPUSH 11/11/23 21:28 4 mg ONCE ONE Administration Discharge Plan Discharge Clinical Impression: Acute gastritis Patient Disposition: Home, Self-Care Instructions: Gastritis (ED), Abdominal Pain (ED) Additional Instructions: Avoid fried food Start taking Protonix daily Follow with PCP Report to ER if not better Prescriptions: New pantoprazole [Protonix] 40 mg tablet,delayed release (DR/EC) 40 mg PO DAILY Qty: 30 0RF sucralfate 1 gram tablet 1 g PO BID Qty: 60 0RF No Action multivitamin [Daily-Oswaldo] Tablet 1 tab PO DAILY Qty: 30 0RF levothyroxine 50 mcg Tablet 50 mcg PO DAILY@0600 Qty: 30 0RF nicotine 21 mg/24 hr Patch 24 Hour 21 mg transdermal DAILY Qty: 30 0RF folic acid 1 mg Tablet 1 mg PO DAILY Qty: 3 0RF mirtazapine 7.5 mg Tablet 7.5 mg PO BEDTIME Qty: 30 0RF thiamine mononitrate (vit B1) 100 mg Tablet 100 mg PO DAILY Qty: 30 0RF Vraylar 3 mg Capsule 3 mg PO DAILY Qty: 30 0RF pramipexole 0.25 mg tablet 0.25 mg PO BID Qty: 60 0RF albuterol sulfate [Ventolin HFA] 90 mcg/actuation HFA aerosol inhaler 2 puff inhalation Q4-6H PRN (Reason: wheezing) 30 Days Qty: 1 3RF lorazepam 1 mg tablet 1 mg PO DAILY PRN (Reason: anxiety) Qty: 7 0RF
[2023-11-11] MEDS: 0.9 % Sodium Chloride 1,000 ML 999 ML IV (21:36)
[2023-11-11] MEDS: Morphine Sulfate 4 MG/ML CARTRIDGE IVPUSH (21:38)
[2023-11-11] MEDS: ondansetron HCL 4 MG/2 ML VIAL IVPUSH (21:38)
[2023-11-12 00:05] VITALS: BP 113/70; PULSE 87; RESP 18; TEMP 36.4; O2SAT 95
[2023-11-12] MEDS: Famotidine/PF 20 MG/2 ML VIAL IVPUSH (03:00)
[2023-11-12 03:05] VITALS: BP 95/64; PULSE 81; RESP 15; TEMP 36.7; O2SAT 93
== END 2023-11-12 03:06 | disposition home or self-care (01) ==
PROVIDERS: Emergency Provider Internal Medicine
DX: K29.70 Gastritis, unspecified, without bleeding (principal); R10.13 Epigastric pain; R11.0 Nausea; F17.210 Nicotine dependence, cigarettes, uncomplicated; Z79.899 Other long term (current) drug therapy
CPT/HCPCS: 36415; 74177; 76705; 80053; 83690; 85025; 96361; 96374; 96375; 99284; J2270; J2405

== ENCOUNTER 2023-12-05 19:29 | Inpatient (IN) | payer MEDICARE, SELFPAY ==
--- NOTE | 2023-12-05 | ECG_ITS ---
Test Reason : QT CHECK Blood Pressure : / mmHG Vent. Rate : 071 BPM Atrial Rate : 071 BPM P-R Int : 144 ms QRS Dur : 102 ms QT Int : 408 ms P-R-T Axes : 076 078 053 degrees QTc Int : 443 ms Normal sinus rhythm Minimal voltage criteria for LVH, may be normal variant ( Merlin product ) Septal infarct (cited on or before 26-JUL-2023) Abnormal ECG When compared with ECG of 30-OCT-2023 12:28, Nonspecific T wave abnormality no longer evident in Anterior leads Referred By: Gin Loera Electronically Signed By:DEZ MARTINEZ MD
[2023-12-05 19:38] VITALS: BP 138/54; PULSE 85; RESP 18; TEMP 36.7; O2SAT 96; BMI 19.4
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
[2023-12-05 19:53] LABS: MANUAL DIFF FLAG NO
[2023-12-05 19:54] LABS: Basophils Absolute Auto 0.1 X10*3/uL (0.0-0.2); Basophils Percent Auto 0.6 % (0-2); Eosinophils Absolute Auto 0.3 X10*3/uL (0.0-0.4); Eosinophils Percent Auto 3.3 % (0-4); Hematocrit 37.7 % (37.0-47.0); Hemoglobin 12.9 g/dl (12.0-16.0); Imm Gran Abs Auto 0.03 X10*3/uL (0.00-0.03); Imm Gran Pct Auto 0.3 % (0.0-0.4); Lymphocytes Absolute Auto 2.9 X10*3/uL (1.2-4.9); Lymphocytes Percent Auto 29.2 % (20-40); Mean Corpuscular HGB Conc 34.2 g/dl (31.0-35.0); Mean Corpuscular Hemoglobin 32.5 pg (27.0-33.0); Mean Platelet Volume 9.4 fL (9.4-12.3); Monocytes Absolute Auto 0.9 X10*3/uL (0.1-1.2); Monocytes Percent Auto 8.7 % (2-11); Neutrophils Absolute Auto 5.7 x10*3/uL (2.0-8.3); Neutrophils Percent Auto 57.9 % (45-73); Platelet Count 409 X10*3/uL (160-400); Red Blood Count 3.97 X10*6/uL (4.20-5.50); Red Cell Distribution Width 13.7 % (11.0-16.0); White Blood Count 9.8 X10*3/uL (4.8-10.8)
[2023-12-05 20:15] LABS: Appearance Urine Cloudy; Color Urine Yellow; Glucose Urine UA Negative (Negative); Leukocyte Esterase Urine Small (1+) (Negative); Nitrite Urine Negative (Negative); UMIC TRIGGER UACC YES; Urine Blood Negative (Negative); Urine Ketones Trace mg/dL (Negative); Urine Protein Trace mg/dL (Neg-Trace)
[2023-12-05 20:17] LABS: Bacteria Urine 2+ (None Seen); Hyaline Casts Urine 0-2 /LPF (0-2); RBC Urine 0-2 /HPF (0-2); UACC Culture Trigger YES
[2023-12-05 20:35] LABS: Amphetamine Screen Urine POSITIVE (Not Detect); Barbiturates, Urine Not Detected (Not Detect); Benzodiazepines Screen Urine Not Detected (Not Detect); Buprenorphine Scr Not Detected (Not Detect); Cannabinoid Screen Urine POSITIVE (Not Detect); Cocaine Screen Urine Not Detected (Not Detect); Fentanyl, urine Not Detected (Not Detect); Methadone Screen, Urine Not Detected (Not Detect); Opiate Screen Urine Not Detected (Not Detect); Oxycodone Screen Urine Not Detected (Not Detect); Phencyclidine Screen Urine Not Detected (Not Detect)
[2023-12-05 20:50] LABS: Alanine Aminotransferase 11 U/L (0-31); Albumin Level 4.1 g/dL (3.5-5.0); Alkaline Phosphatase 121 U/L (39-117); Anion Gap 14 (12-20); Aspartate Amino Transferase 17 U/L (5-31); Bilirubin Direct < 0.2 mg/dL (0.0-0.5); Bilirubin Total 0.2 mg/dL (0.0-1.0); Blood Urea Nitrogen 8 mg/dL (9-16); Calcium 8.9 mg/dL (8.4-10.2); Carbon Dioxide 26 mmol/L (22-29); Chloride 102 mmol/L (96-108); Creatinine Clr Calc Pharmacy 53.5; Estimated Glomerular Filt Rate > 60; Ethanol < 10 mg/dL; Glucose Random 108 mg/dL (60-115); Sodium 138 mmol/L (135-145); Total Protein 7.1 g/dL (6.5-8.0)
[2023-12-05 22:59] LABS: COVID-19 Test Negative (Negative); IDNOW Serial# 08D9AD1C
[2023-12-05 23:45] VITALS: BP 114/76; PULSE 90; RESP 16; TEMP 36.4; O2SAT 97
[2023-12-06 00:29] VITALS: BMI 19.1
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
[2023-12-06 08:13] VITALS: BP 135/82; PULSE 73; RESP 16; TEMP 36.3; O2SAT 93
[2023-12-06 08:30] LABS: Estimated Average Glucose 134 mg/dL; Hemoglobin A1c % 6.3 % (<6.0)
[2023-12-06 08:44] LABS: Cholesterol 196 mg/dL (<200); HDL Cholesterol 73 mg/dL (>40); LDL Cholesterol Calculated 109 mg/dL (<100); Triglycerides 73 mg/dL (<150)
[2023-12-06 08:58] LABS: Free T4 (Free Thyroxine) 0.97 ng/dL (0.71-1.85); Thyroid Stimulating Hormone 4.53 uIU/mL (0.32-4.0)
[2023-12-06 09:13] LABS: Folate 10.3 ng/mL (> or = 4.0); Vitamin B12 418 pg/mL (200-900)
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
--- NOTE | 2023-12-06 14:08 | PC.NURSE ---
Attempted to call [facility] med rec and was n hold for 22 minutes. Will try to call back.
[2023-12-06] MEDS: LORazepam 1 MG TABLET PO ×2 (14:43→20:46)
[2023-12-06] MEDS: Pramipexole Di-HCL 0.25 MG TABLET PO (17:54)
[2023-12-06] MEDS: Sucralfate 1 GM TABLET PO (17:54)
[2023-12-06] MEDS: Albuterol Sulfate 90 MCG 8 GM INHALER 2 PUFF INHALE ×2 (17:54→20:55)
[2023-12-06 19:58] VITALS: BP 116/70; PULSE 85; RESP 166; TEMP 36.4; O2SAT 95
[2023-12-06] MEDS: Mirtazapine 7.5 MG TABLET PO (20:45)
[2023-12-07] MEDS: Pramipexole Di-HCL 0.25 MG TABLET PO ×2 (06:24→17:10)
[2023-12-07] MEDS: Levothyroxine Sodium 50 MCG TABLET PO (06:24)
[2023-12-07] MEDS: LORazepam 1 MG TABLET PO ×3 (06:38→21:17)
[2023-12-07 08:00] VITALS: BP 123/58; PULSE 68; TEMP 36.4; O2SAT 97
[2023-12-07] MEDS: Multivitamin TABLET 1 TAB PO (09:05)
[2023-12-07] MEDS: Thiamine HCL 100 MG TABLET PO (09:05)
[2023-12-07] MEDS: Folic Acid 1 MG TABLET PO (09:05)
[2023-12-07] MEDS: Sucralfate 1 GM TABLET PO ×2 (09:05→17:10)
[2023-12-07] MEDS: Albuterol Sulfate 90 MCG 8 GM INHALER 2 PUFF INHALE ×2 (09:07→21:22)
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
[2023-12-07 20:00] VITALS: BP 135/76; PULSE 81; RESP 14; TEMP 36.2; O2SAT 94
[2023-12-07] MEDS: OXcarbazepine 150 MG TABLET PO (21:17)
[2023-12-07] MEDS: Mirtazapine 7.5 MG TABLET PO (21:17)
[2023-12-08] MEDS: Pramipexole Di-HCL 0.25 MG TABLET PO ×2 (05:53→17:28)
[2023-12-08] MEDS: Levothyroxine Sodium 50 MCG TABLET PO (05:53)
[2023-12-08] MEDS: LORazepam 1 MG TABLET PO ×3 (05:54→19:33)
[2023-12-08 08:00] VITALS: BP 126/64; PULSE 75; RESP 16; TEMP 36.4; O2SAT 94
[2023-12-08] MEDS: OXcarbazepine 150 MG TABLET PO ×2 (08:46→19:33)
[2023-12-08] MEDS: Sucralfate 1 GM TABLET PO ×2 (08:46→17:28)
[2023-12-08] MEDS: Folic Acid 1 MG TABLET PO (08:46)
[2023-12-08] MEDS: Multivitamin TABLET 1 TAB PO (08:46)
[2023-12-08] MEDS: Thiamine HCL 100 MG TABLET PO (08:47)
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
[2023-12-08 14:26] VITALS: BMI 19.4
[2023-12-08] MEDS: Albuterol Sulfate 90 MCG 8 GM INHALER 2 PUFF INHALE (18:37)
[2023-12-08] MEDS: Mirtazapine 7.5 MG TABLET PO (19:33)
[2023-12-08 20:00] VITALS: BP 144/87; PULSE 93; RESP 17; TEMP 36.6; O2SAT 94
[2023-12-09] MEDS: LORazepam 1 MG TABLET PO ×2 (02:10→08:11)
[2023-12-09] MEDS: Pramipexole Di-HCL 0.25 MG TABLET PO ×2 (05:34→17:34)
[2023-12-09] MEDS: Levothyroxine Sodium 50 MCG TABLET PO (05:35)
[2023-12-09 08:00] VITALS: BP 149/79; PULSE 74; RESP 18; TEMP 37.2; O2SAT 97
[2023-12-09] MEDS: OXcarbazepine 150 MG TABLET PO ×2 (08:11→20:25)
[2023-12-09] MEDS: Folic Acid 1 MG TABLET PO (08:11)
[2023-12-09] MEDS: Thiamine HCL 100 MG TABLET PO (08:11)
[2023-12-09] MEDS: Sucralfate 1 GM TABLET PO ×2 (08:11→17:35)
[2023-12-09] MEDS: Multivitamin TABLET 1 TAB PO (08:11)
[2023-12-09] MEDS: LORazepam 0.5 MG TABLET PO ×3 (14:43→22:25)
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
[2023-12-09 20:00] VITALS: BP 101/53; PULSE 82; TEMP 36.6; O2SAT 97
[2023-12-10] MEDS: LORazepam 0.5 MG TABLET PO ×5 (04:10→21:09)
[2023-12-10] MEDS: Pramipexole Di-HCL 0.25 MG TABLET PO ×2 (05:12→18:19)
[2023-12-10] MEDS: Levothyroxine Sodium 50 MCG TABLET PO (05:12)
[2023-12-10] MEDS: Sucralfate 1 GM TABLET PO ×2 (07:19→16:26)
[2023-12-10 08:00] VITALS: BP 106/69; PULSE 77; RESP 19; TEMP 36.4; O2SAT 94
[2023-12-10] MEDS: Thiamine HCL 100 MG TABLET PO (08:12)
[2023-12-10] MEDS: OXcarbazepine 150 MG TABLET PO ×2 (08:12→21:09)
[2023-12-10] MEDS: Folic Acid 1 MG TABLET PO (08:12)
[2023-12-10] MEDS: Multivitamin TABLET 1 TAB PO (08:12)
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
[2023-12-10 20:00] VITALS: BP 122/69; PULSE 91; TEMP 36.6; O2SAT 95
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
[2023-12-11] MEDS: LORazepam 0.5 MG TABLET PO ×5 (02:19→18:55)
[2023-12-11] MEDS: Pramipexole Di-HCL 0.25 MG TABLET PO ×2 (06:25→17:47)
[2023-12-11] MEDS: Levothyroxine Sodium 50 MCG TABLET PO (06:25)
[2023-12-11 08:00] VITALS: BP 139/72; PULSE 84; RESP 18; TEMP 36.9; O2SAT 95
[2023-12-11] MEDS: OXcarbazepine 150 MG TABLET PO (08:33)
[2023-12-11] MEDS: Sucralfate 1 GM TABLET PO ×2 (08:33→17:48)
[2023-12-11] MEDS: Thiamine HCL 100 MG TABLET PO (08:33)
[2023-12-11] MEDS: Multivitamin TABLET 1 TAB PO (08:33)
[2023-12-11] MEDS: Folic Acid 1 MG TABLET PO (08:33)
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
[2023-12-11 19:40] VITALS: BP 101/57; PULSE 73; RESP 18; TEMP 36.3; O2SAT 96
[2023-12-11] MEDS: OXcarbazepine 300 MG TABLET PO (20:57)
[2023-12-12] MEDS: LORazepam 0.5 MG TABLET PO ×6 (00:44→20:44)
[2023-12-12] MEDS: Levothyroxine Sodium 50 MCG TABLET PO (05:02)
[2023-12-12] MEDS: Pramipexole Di-HCL 0.25 MG TABLET PO ×2 (05:02→16:58)
[2023-12-12 07:56] VITALS: BP 126/81; PULSE 82; RESP 16; TEMP 36.6; O2SAT 95
[2023-12-12] MEDS: OXcarbazepine 300 MG TABLET PO ×2 (08:15→20:44)
[2023-12-12] MEDS: Sucralfate 1 GM TABLET PO ×2 (08:15→16:58)
[2023-12-12] MEDS: Multivitamin TABLET 1 TAB PO (08:15)
[2023-12-12] MEDS: Folic Acid 1 MG TABLET PO (08:15)
[2023-12-12] MEDS: Thiamine HCL 100 MG TABLET PO (08:15)
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
--- NOTE | 2023-12-12 11:31 | PC.NURSE ---
Patient signed a 3 day notice. Legal status updated in [facility]. telephone mechanic aware. Criss Bravo - Utilization Review, Bonnie Short- Social Work, and covering provider Rubi Greenberg all notified.
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
[2023-12-12 20:00] VITALS: BP 101/54; PULSE 73; RESP 18; TEMP 36.7; O2SAT 95
[2023-12-12] MEDS: Mirtazapine 7.5 MG TABLET PO (20:44)
[2023-12-13] MEDS: LORazepam 0.5 MG TABLET PO ×5 (02:18→20:54)
[2023-12-13] MEDS: Levothyroxine Sodium 50 MCG TABLET PO (06:33)
[2023-12-13] MEDS: Pramipexole Di-HCL 0.25 MG TABLET PO ×2 (06:33→18:32)
[2023-12-13 08:00] VITALS: BP 101/73; PULSE 73; RESP 20; TEMP 36.2; O2SAT 95
[2023-12-13] MEDS: Folic Acid 1 MG TABLET PO (08:48)
[2023-12-13] MEDS: Multivitamin TABLET 1 TAB PO (08:48)
[2023-12-13] MEDS: Thiamine HCL 100 MG TABLET PO (08:48)
[2023-12-13] MEDS: Sucralfate 1 GM TABLET PO ×2 (08:48→16:54)
[2023-12-13] MEDS: OXcarbazepine 300 MG TABLET PO ×2 (08:49→20:22)
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
[2023-12-13 20:00] VITALS: BP 120/59; PULSE 76; RESP 18; TEMP 36.8; O2SAT 97
[2023-12-13] MEDS: Mirtazapine 7.5 MG TABLET PO (20:22)
[2023-12-14] MEDS: LORazepam 0.5 MG TABLET PO ×6 (01:08→20:53)
[2023-12-14] MEDS: Pramipexole Di-HCL 0.25 MG TABLET PO ×2 (05:22→18:18)
[2023-12-14] MEDS: Levothyroxine Sodium 50 MCG TABLET PO (05:22)
[2023-12-14 07:56] VITALS: BP 140/78; PULSE 80; RESP 17; TEMP 35.8; O2SAT 96
[2023-12-14] MEDS: Multivitamin TABLET 1 TAB PO (08:20)
[2023-12-14] MEDS: Thiamine HCL 100 MG TABLET PO (08:20)
[2023-12-14] MEDS: Sucralfate 1 GM TABLET PO ×2 (08:20→15:43)
[2023-12-14] MEDS: Folic Acid 1 MG TABLET PO (08:20)
[2023-12-14] MEDS: OXcarbazepine 300 MG TABLET PO ×2 (08:20→19:56)
--- NOTE | 2023-12-14 15:50 | PC.NURSE ---
Accidentally documented ativan 0.5 mg given at 11:07. Ativan was not given and has only had 2 doses of ativan 0.5 mg po at 11:49 and 15:43.
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
[2023-12-14 20:00] VITALS: BP 139/61; PULSE 85; RESP 15; TEMP 36.5; O2SAT 96
[2023-12-14] MEDS: Mirtazapine 7.5 MG TABLET PO (23:09)
[2023-12-15] MEDS: LORazepam 0.5 MG TABLET PO ×2 (00:53→05:51)
[2023-12-15] MEDS: Pramipexole Di-HCL 0.25 MG TABLET PO (05:51)
[2023-12-15] MEDS: Levothyroxine Sodium 50 MCG TABLET PO (05:51)
[2023-12-15] MEDS: OXcarbazepine 300 MG TABLET PO (08:35)
[2023-12-15] MEDS: Multivitamin TABLET 1 TAB PO (08:35)
[2023-12-15] MEDS: Folic Acid 1 MG TABLET PO (08:35)
[2023-12-15] MEDS: Sucralfate 1 GM TABLET PO (08:35)
[2023-12-15] MEDS: Thiamine HCL 100 MG TABLET PO (08:35)
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
== END 2023-12-15 10:00 | disposition home or self-care (01) | DRG 885 ==
LOC: HO.ED 21:22 → HO.PM5 22:04
PROVIDERS: Nurse Practitioner Family; Registered Nurse Emergency; Admitting Provider Clinical Nurse Specialist Psychiatric/Mental Health, Adult; Emergency Provider Internal Medicine; Visit Provider Clinical Nurse Specialist Psychiatric/Mental Health, Adult
DX: F31.32 Bipolar disorder, current episode depressed, moderate (principal); R45.851 Suicidal ideations; F43.10 Post-traumatic stress disorder, unspecified; E03.9 Hypothyroidism, unspecified; M79.7 Fibromyalgia; F13.10 Sedative, hypnotic or anxiolytic abuse, uncomplicated; G25.81 Restless legs syndrome; J44.9 Chronic obstructive pulmonary disease, unspecified; Z20.822 Contact with and (suspected) exposure to COVID-19; Z87.891 Personal history of nicotine dependence; Z79.890 Hormone replacement therapy; Z79.899 Other long term (current) drug therapy
CPT/HCPCS: 36415; 80048; 80061; 80076; 80307; 81001; 82607; 82746; 83036; 83735; 84439; 84443; 85025; 87086; 87635; 93005; 99285; S9485

== ENCOUNTER 2023-12-05 21:53 | Outpatient (BNV) | payer MEDICARE, SELFPAY | END 2023-12-05 21:59 | PROVIDERS: Admitting Provider Clinical Nurse Specialist Psychiatric/Mental Health, Adult; Emergency Provider Internal Medicine; Visit Provider Internal Medicine Cardiovascular Disease | DX: R94.31 Abnormal electrocardiogram [ECG] [EKG] (principal) | CPT/HCPCS: 93010 ==

== ENCOUNTER → 2023-12-05 21:53 | Outpatient (BNV) | payer OTHER, SELFPAY | PROVIDERS: Admitting Provider Clinical Nurse Specialist Psychiatric/Mental Health, Adult; Emergency Provider Internal Medicine; Visit Provider Clinical Nurse Specialist Psychiatric/Mental Health, Adult | DX: F31.32 Bipolar disorder, current episode depressed, moderate (principal); R45.851 Suicidal ideations; F43.11 Post-traumatic stress disorder, acute; F19.90 Other psychoactive substance use, unspecified, uncomplicated | CPT/HCPCS: 90792; 99231; 99232; 99238 ==

== ENCOUNTER → 2024-01-12 08:00 | Outpatient (BNV) | payer OTHER, SELFPAY | PROVIDERS: Visit Provider Psychiatry & Neurology Psychiatry | DX: F31.89 Other bipolar disorder (principal); F90.8 Attention-deficit hyperactivity disorder, other type; F41.1 Generalized anxiety disorder; G25.71 Drug induced akathisia; T50.905A Adverse effect of unspecified drugs, medicaments and biological substances, initial encounter; F45.42 Pain disorder with related psychological factors; F19.90 Other psychoactive substance use, unspecified, uncomplicated | CPT/HCPCS: 90792; 90832; 90834; 99213; 99214; 99499 ==

== ENCOUNTER 2024-01-16 08:44 | Outpatient (AMB) | payer MEDICARE, SELFPAY ==
[2024-01-16 08:47] VITALS: BMI 20.8
--- NOTE | 2024-01-16 08:47 | A.OFFVIS_ITS ---
Vital Signs 01/16/24 08:47 Height 5 ft 1 in Weight 110 lb BMI 20.8 Intake Visit Reasons: Inj-Bilateral Knee Injection - Last done 06/2023 Intake Note: Jaja is a 63 year old female who presents today for a follow up of her bilateral knee OA. She was last seen 06/23/23 where she received injections. The injections were helpful and she would like to repeat today. Allergies olanzapine [From ZYPREXA] Adverse Reaction (Intermediate, Verified 01/16/24 08:55) RLS symptoms clonidine Adverse Reaction (Verified 01/16/24 08:55) RLS diphenhydramine [From Benadryl] Adverse Reaction (Verified 01/16/24 08:55) RLS hydroxyzine Adverse Reaction (Verified 01/16/24 08:55) RLS melatonin Adverse Reaction (Verified 01/16/24 08:55) RLS atypical antipsychotics Adverse Reaction (Severe, Uncoded 01/16/24 08:55) This class appears to potentiate RLS/Akathesia HPI HPI Inj-Bilateral Knee Injection - Last done 06/2023: Details: Jaja is a 63 year old female who presents today for a follow up of her bilateral knee OA. She was last seen 06/23/23 where she received injections. The injections were helpful and she would like to repeat today. [facility] Medical History Polysubstance use disorder Syncope Bipolar disorder Type II diabetes mellitus Smoker Fibromyalgia Cannabis use disorder, moderate, dependence Benzodiazepine abuse Osteoporosis Hypothyroidism RLS (restless legs syndrome) COPD (chronic obstructive pulmonary disease) HLD (hyperlipidemia) Surgical History H/O: hysterectomy Family History Mother No problems noted. Father No problems noted. Son Substance use disorder Social History Household Members: Spouse Household Members Other:: son's girlfriend Housing: House Do you presently have visiting nurse or other home services: No Unable to assess alcohol history related to: Unknown Alcohol intake: never Comment: Pt reports falling d/t excessive intake of Benzo's prior to admission Patient Tobacco Use Status: Current everyday Tobacco user Tobacco use type: Cigarette Cigarette Packs Per Day: 1 Cigarettes Per Day: 20.0 Years Smoked: 45 e-Cigarette/Vaping Use: Never Used Second Hand Smoke Exposure: No Substance Use Type: Marijuana service: No Current occupational status: employed Sexual orientation: Straight/Heterosexual Cognitive needs: No Hearing needs: No Vision needs: No Physical Exam Vital Signs: BMI result Body Mass Index 20.8 Const General: no acute distress, alert and awake Orientation/consciousness: patient oriented x3 HEENT Head: Yes normocephalic and Yes atraumatic Mouth: moist mucous membranes Eyes General: appearance normal, both eyes and all related structures EOM: EOMs intact bilaterally Chest Other: no audible wheezing. Resp Other: No audible wheezing Effort & Inspection: normal respiratory effort and able to speak in complete s entences Cardio Other: Radial pulse palpable with no rythmic abnormalities Jugular venous distension: no JVD Back/Spine/Pelvis Cervical Spine: normal cervical lordosis Skin General skin exam: turgor normal Rashes: no rashes Neuro General: patient oriented x3 Extrem Other: Bilateral Knees: Skin C/D/I No effusion TTP MJL R>L Psych Appearance: grossly normal Mental Status: mental status grossly normal Speech and movement: Normal speech and movement present Affect: normal affect Attitude: cooperative Office Procedures Joint Injection/Drain Joint Injection/Drain Details: Injected 1 mL of Decadron and 3 mL 1% lidocaine and 3 mL of 0.25% Marcaine. Site was prepped using aseptic technique. Patient tolerated the procedure well. Primary Site: right knee Secondary Site: left knee Approach Used: anterolateral Coding - Large joint 84893 - Glenohumeral/Tronchanteric Bursa/Intraarticular Procedure code (CPT) selection complete Assessment & Plan Assessment & Plan (1) Bilateral primary osteoarthritis of knee: Code(s): M17.0 - Bilateral primary osteoarthritis of knee Category: Medical Plan I Injected her bilateral knees today, she may follow up no sooner than three month for repeat injection. Ortherwise PRN Coding Level of Care Code Est Pt Level 3 (58442) Diagnoses Bilateral primary osteoarthritis of knee M17.0 CPT Codes Coding - 58401 Large joint: 91326 - Large joint ([id number]) Coding - Joint 7: - Glenohumeral/Tronchanteric Bursa/Intraarticular ([id number])
== END 2024-01-16 08:58 | disposition home or self-care (01) ==
PROVIDERS: Visit Provider Orthopaedic Surgery
DX: M17.0 Bilateral primary osteoarthritis of knee (principal)
CPT/HCPCS: 20610; 99213

== ENCOUNTER → 2024-01-16 08:44 | Outpatient (BNVA) | payer OTHER, SELFPAY | PROVIDERS: Visit Provider Orthopaedic Surgery | DX: M17.0 Bilateral primary osteoarthritis of knee (principal) | CPT/HCPCS: 20610; 99212; J0665; J1100 ==

== ENCOUNTER 2024-01-23 06:04 | Outpatient (REF) | payer MEDICARE, SELFPAY ==
[2024-01-23 06:23] LABS: MANUAL DIFF FLAG NO
[2024-01-23 06:27] LABS: Basophils Absolute Auto 0.1 X10*3/uL (0.0-0.2); Basophils Percent Auto 0.7 % (0-2); Eosinophils Absolute Auto 0.3 X10*3/uL (0.0-0.4); Hematocrit 38.7 % (37.0-47.0); Hemoglobin 13.2 g/dl (12.0-16.0); Imm Gran Abs Auto 0.02 X10*3/uL (0.00-0.03); Imm Gran Pct Auto 0.3 % (0.0-0.4); Lymphocytes Absolute Auto 2.5 X10*3/uL (1.2-4.9); Lymphocytes Percent Auto 34.8 % (20-40); Mean Corpuscular HGB Conc 34.1 g/dl (31.0-35.0); Mean Corpuscular Hemoglobin 33.3 pg (27.0-33.0); Mean Corpuscular Volume 97.7 fL (80.0-98.0); Mean Platelet Volume 9.6 fL (9.4-12.3); Monocytes Absolute Auto 0.6 X10*3/uL (0.1-1.2); Monocytes Percent Auto 8.5 % (2-11); Neutrophils Absolute Auto 3.8 x10*3/uL (2.0-8.3); Neutrophils Percent Auto 51.7 % (45-73); Platelet Count 366 X10*3/uL (160-400); Red Blood Count 3.96 X10*6/uL (4.20-5.50); Red Cell Distribution Width 13.9 % (11.0-16.0); White Blood Count 7.3 X10*3/uL (4.8-10.8)
[2024-01-23 07:05] LABS: Alanine Aminotransferase 9 U/L (0-31); Albumin Level 4.2 g/dL (3.5-5.0); Alkaline Phosphatase 110 U/L (39-117); Anion Gap 10 (12-20); Aspartate Amino Transferase 12 U/L (5-31); Bilirubin Total 0.3 mg/dL (0.0-1.0); Blood Urea Nitrogen 16 mg/dL (9-16); C Reactive Protein < 0.10 mg/dL (< or = 0.50); Calcium 9.6 mg/dL (8.4-10.2); Carbon Dioxide 29 mmol/L (22-29); Chloride 104 mmol/L (96-108); Estimated Glomerular Filt Rate > 60; Glucose Fasting 132 mg/dL (60-99); Lactate Dehydrogenase 197 U/L (122-220); Magnesium 1.9 mg/dL (1.6-2.6); Parathyroid Hormone Intact 46.8 pg/mL (8.7-77.1); Potassium 4.3 mmol/L (3.3-5.1); Rheumatoid Factor < 13.0 IU/mL (<15.0); Sodium 139 mmol/L (135-145)
[2024-01-23 07:20] LABS: Ferritin 38 ng/mL (10-250); Thyroid Stimulating Hormone 5.19 uIU/mL (0.32-4.0); Vitamin D 25-OH Total 28.5 ng/mL (>30)
[2024-01-23 07:33] LABS: Folate 12.8 ng/mL (> or = 4.0); Vitamin B12 311 pg/mL (200-900)
[2024-01-23 07:40] LABS: Band Neutrophils Percent 1 % (3-5); Basophils Abs Manual 0.1 X10*3/uL (0.0-0.2); Basophils Percent Manual 1 % (0-2); Eosinophils Absolute Manual 0.3 X10*3/uL (0.0-0.4); Eosinophils Percent Manual 4 % (0-4); Lymphocytes Absolute Manual 2.8 X10*3/uL (1.2-4.9); Lymphocytes Percent Manual 38 % (20-40); Metamyelocytes Absolute 0.1 X10*3/uL; Metamyelocytes Percent 1 %; Monocytes Absolute Manual 0.5 X10*3/uL (0.1-1.2); Monocytes Percent Manual 7 % (2-11); Neutrophils Absolute Manual 3.6 X10*3/uL (2.0-8.3); Neutrophils Percent Manual 48 % (45-73)
[2024-01-23 07:41] LABS: Platelet Estimate NORMAL (NORMAL); Platelet Morphology Comment NORMAL; RBC Morphology NORMAL
[2024-01-23 07:47] LABS: Estimated Average Glucose 128 mg/dL; Hemoglobin A1c % 6.1 % (<6.0)
[2024-01-23 07:56] LABS: Erythrocyte Sedimentation Rate 11 MM/HR (0-20)
[2024-01-24 07:54] LABS: Triiodothyronine T3 Free 2.8 pg/mL (2.3-4.2); Triiodothyronine T3 Total 70 ng/dL (76-181)
[2024-01-24 11:03] LABS: Thyroglobulin 265.3 ng/mL; Thyroid Peroxidase Antibodies 6 IU/mL (<9)
[2024-01-24 13:33] LABS: Thyroglobulin Antibodies <1 IU/mL (< or = 1)
[2024-01-24 15:43] LABS: Calcium, Ionized 5.2 mg/dL (4.7-5.5)
[2024-01-24 18:18] LABS: Lyme Abs Screen <0.90 index
[2024-01-24 21:24] LABS: Homocysteine 12.4 umol/L (<10.4)
[2024-01-25 14:38] LABS: Anti Nuclear Antibody Screen NEGATIVE (NEGATIVE)
[2024-01-28 11:28] LABS: Vitamin B1 14 nmol/L (8-30)
[2024-01-29 13:33] LABS: Vitamin B6 4.6 ng/mL (2.1-21.7)
[2024-01-30 04:16] LABS: MTHFR Mutation Detection POSITIVE
== END 2024-01-23 06:05 | disposition home or self-care (01) ==
LOC: HO.LAB 06:04
PROVIDERS: PCP Family Medicine; Visit Provider Psychiatry & Neurology Psychiatry
DX: F31.89 Other bipolar disorder (principal); G25.71 Drug induced akathisia; J44.9 Chronic obstructive pulmonary disease, unspecified
CPT/HCPCS: 36415; 80053; 81291; 82306; 82330; 82550; 82607; 82728; 82746; 83036; 83090; 83615; 83735; 83970; 84207; 84425; 84432; 84439; 84443; 84480; 84481; 85007; 85025; 85652; 86038; 86140; 86376; 86431; 86617; 86618; 86800

== ENCOUNTER 2024-02-03 08:50 | Outpatient (REF) | payer MEDICARE, SELFPAY ==
[2024-02-03 10:16] LABS: Iron 118 mcg/dL (30-160); Percent Iron Saturation 34 % (15-50); Total Iron Binding Capacity 347 mcg/dL (228-428); Unsaturated Iron Binding 229 ug/dL
[2024-02-04 08:18] LABS: Triiodothyronine T3 Free 2.8 pg/mL (2.3-4.2); Triiodothyronine T3 Total 85 ng/dL (76-181)
[2024-02-07 06:14] LABS: Iodine, Serum/Plasma 64 mcg/L (52-109)
[2024-02-07 18:39] LABS: Calcitonin <2 pg/mL (<=5)
[2024-02-08 16:39] LABS: Methylmalonic Acid 1131 nmol/L (69-390)
[2024-02-12 10:33] LABS: Triiodothyronine T3 Reverse 13 ng/dL (8-25)
== END 2024-02-03 08:51 | disposition home or self-care (01) ==
LOC: HO.LAB 08:50
PROVIDERS: PCP Nurse Practitioner Family; Visit Provider Psychiatry & Neurology Psychiatry
DX: F31.89 Other bipolar disorder (principal); E03.9 Hypothyroidism, unspecified; R45.1 Restlessness and agitation
CPT/HCPCS: 36415; 82308; 83540; 83789; 83921; 84480; 84481; 84482

== ENCOUNTER 2024-02-10 14:23 | Outpatient (REF) | payer MEDICARE, SELFPAY ==
[2024-02-10 14:51] LABS: MANUAL DIFF FLAG NO
[2024-02-10 15:23] LABS: Basophils Percent Auto 0.6 % (0-2); Eosinophils Absolute Auto 0.2 X10*3/uL (0.0-0.4); Eosinophils Percent Auto 2.5 % (0-4); Hematocrit 36.6 % (37.0-47.0); Hemoglobin 12.2 g/dl (12.0-16.0); Imm Gran Abs Auto 0.01 X10*3/uL (0.00-0.03); Imm Gran Pct Auto 0.1 % (0.0-0.4); Lymphocytes Absolute Auto 2.4 X10*3/uL (1.2-4.9); Lymphocytes Percent Auto 35.9 % (20-40); Mean Corpuscular HGB Conc 33.3 g/dl (31.0-35.0); Mean Corpuscular Hemoglobin 32.5 pg (27.0-33.0); Mean Corpuscular Volume 97.6 fL (80.0-98.0); Mean Platelet Volume 10.2 fL (9.4-12.3); Monocytes Absolute Auto 0.5 X10*3/uL (0.1-1.2); Monocytes Percent Auto 6.7 % (2-11); Neutrophils Absolute Auto 3.6 x10*3/uL (2.0-8.3); Neutrophils Percent Auto 54.2 % (45-73); Platelet Count 387 X10*3/uL (160-400); Red Blood Count 3.75 X10*6/uL (4.20-5.50); Red Cell Distribution Width 13.4 % (11.0-16.0); White Blood Count 6.7 X10*3/uL (4.8-10.8)
[2024-02-10 15:55] LABS: TSH reflex Free T4 1.71 uIU/mL (0.32-4.0)
[2024-02-14 20:18] LABS: Intrinsic Factor Antibodies Negative (Negative)
[2024-02-16 12:39] LABS: Parietal Cell Antibody <=20.0 Unit (<=20.0)
== END 2024-02-10 14:24 | disposition home or self-care (01) ==
LOC: HO.LAB 14:23
PROVIDERS: Nurse Practitioner Family; PCP Internal Medicine; Visit Provider Psychiatry & Neurology Psychiatry
DX: E03.9 Hypothyroidism, unspecified (principal)
CPT/HCPCS: 36415; 83516; 84443; 85025; 86340

== ENCOUNTER 2024-02-24 11:45 | Outpatient (RCR) | payer OTHER, SELFPAY ==
[2024-01-12 10:43] VITALS: BP 120/78; PULSE 81; TEMP 36.5
[2024-01-12 10:44] VITALS: BMI 21.0
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
--- NOTE | 2024-01-12 16:28 | HO.PHP ---
Client's case has been opened and reviewed in treatment team.
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
[2024-01-13 06:16] LABS: Amphetamine Screen Urine Not Detected (Not Detect); Barbiturates, Urine Not Detected (Not Detect); Benzodiazepines Screen Urine Not Detected (Not Detect); Buprenorphine Scr Not Detected (Not Detect); Cannabinoid Screen Urine POSITIVE (Not Detect); Cocaine Screen Urine Not Detected (Not Detect); Fentanyl, urine Not Detected (Not Detect); Methadone Screen, Urine Not Detected (Not Detect); Opiate Screen Urine Not Detected (Not Detect); Oxycodone Screen Urine Not Detected (Not Detect); Phencyclidine Screen Urine Not Detected (Not Detect)
--- NOTE | 2024-01-17 23:49 | HO.PHPPROGNO ---
Subjective Subjective Date of Service: 01/17/24 Reason For Visit: bipolar Interim History: Has found the clonazepam helpful calming to me in the evening. Helping me get to sleep, but not staying to sleep...it is better . She finds the clonazepam to work better than the lorazepam. She feels a littlf more rested. Inquiring about increasing dose, however plan is not to remain on the clonazepam and plan to find another agent to help with mood and anxiety, in addition to sleep. She is still quite apprehensive about any mood stabilizer. She reports her mood has been pretty good . She feels she is level and doing well mood-steinberg even with being off of the Trileptal. She stands by being unable to tolerate a mood stabilizers. She adds that she feels she needs more help with anxiety, sleep and pain management for her fibromyalgia than mood instability. SHe has done well on Lyrica in virgilio past and did not suffer any adverse effects, which can also be helpful for anxiety. She is agreeable to restarting this medication. Furthermore I would like to start weening her from taking clonazepam on a daily basis. She says her sales representative groceries Dr. Chanell Stockton had mentioned that it was really unusual and surprising that she had developed fibromyalgia so late in life (within the past 5 yrs). She notes that the fibromyalgia mostly affects the fingernails fingertips, and toes . She reports occasional flare-ups where she has acute aches/pains and has swelling in small joints, she was diagnosed with fibromyalgia by her PCP, she has never been referred to a fire management technician. She denies developing any fevers or rashes during these flare-ups . We discuss in detail her movement disorder. She was a fidgeting hyperactive kid (describes more typical features of ADHD, hyperactive, fidgeting, bouncing leg, moving around a lot. At baseline now she is still active but some writhing and rocking in place. No disturbance of gait noted, but when she was on the oxcarbazepine she describes intense squirminess, repetitive moveemnts in shoulder head arms, internal agitation, was unable to will self to stay still (likely akithisia) especially on antipsychotic medication. She was seen by a neurologist once who dx her with RLS, no clarity about truncal/upper extremities. Medication Compliance: No (stopped oxcarbazepine after discharge) Mental Status Exam Mental Status Exam Narrative: Alert and oriented, in no acute distress. Remains seated, but restless, in near constant motion, rhythmically rocking forward and back, some fluid writhing/grasping motions with hands and less so with feet. No tics or tremor noted. Is aware of movements. Pleasant, cooperative. Mood anxious, affect brighter than expected, anxious, mood congruent. Speech normal, not pressured, allows for reciprocity. Thought process linear, coherent no FOI or MARIO. Thought content related to stressors, denies any helplessness, hopelessness or SI.? No aggressive ideation or HI. No paranoia or delusional content elicited. No evidence of psychosis. Insight and judgment fair but adequate. Diagnostics Vital Signs (24Hr): BMI result Body Mass Index 21.0 Assessment & Plan Assessment & Plan (1) Other bipolar disorders: Status: Acute Code(s): F31.89 - Other bipolar disorder (2) Hyperkinetic syndrome with developmental delay: Status: Acute Code(s): F90.8 - Attention-deficit hyperactivity disorder, other type Assessment and Plan: Chronic hyperkinetic disorder since childhood, likely ADHD hyperactive/impulsive type or combined Hx of Learning Disability and other developmental delays r/o Movement Disorder or other dyskinesia (3) Generalized anxiety disorder: Status: Acute Code(s): F41.1 - Generalized anxiety disorder (4) Acute medication-induced akathisia: Status: Acute Code(s): G25.71 - Drug induced akathisia; T50.905A - Adverse effect of unspecified drugs, medicaments and biological substances, initial encounter Assessment and Plan: r/o psychosomatic disorder or conversion disorder r/o epileptiform disorder r/o behavioral or neuropsychological disturbance (5) Pain disorder associated with psychological factors and medical condition: Status: Acute Code(s): F45.42 - Pain disorder with related psychological factors Assessment and Plan: recently dx with fibromyalgia, although primary pain distribution in this patient (pain in fingertips/under fingernails/palmar and extensor surface of hands and feet VS lower and upper back/neck/chest/hip tenderness other large joint areas affected) is not typical of fibromyalgia alone r/o OA or other arthritides (6) Misuse of prescription only drugs: Status: Acute Code(s): F19.90 - Other psychoactive substance use, unspecified, uncomplicated Assessment and Plan: h/o stimulant abuse, in remission Plan patient continued on short script of clonazepam 0.5 mg qhs to help manage sleep until lab work returns and we settle on a treatment plan start pregabalin 50 mg BID consider pregabalin, propranolol may be helpful, although patient has COPD continue mirtazapine 7.5 mg qhs continue pramipexole 0.25 mg BID continue sulcrafate 1 g BID continue thiamine 100 mg qd continue pantoprazole 40 mg qd pt not taking oxcarbazapine 300 mg consider starting Vitamin B6 Routine lab work will order EKG, routine for baseline QTc for medication considerations UDS as indicated Continue to monitor Patient educated on: diagnosis, medication risk/benefits, substance abuse and medical condition Informed Consent: understands Reason for contiued partial hosp. stay Substantial Risk for: inability to function and med/psych decompensation Certification I certify that partial hospital treatment is medically necessary due to the symptoms and problems resulting from the patient's mental illness and the failure to treat the patient at the partial hospital level of care would likely result in the patient requiring inpatient psychiatric care which could not be prevented at a less intensive level of care. Total time managing care of this patient today __40__ minutes. Discharge Plan Discharge Attending provider: Nat Simmons Medications: New clonazepam 0.5 mg tablet 0.5 mg PO BEDTIME PRN (Reason: for sleep) Qty: 10 0RF Rx Instructions: administer 30 minutes before bedtime pregabalin 50 mg capsule 50 mg PO BID Qty: 30 0RF No Action oxcarbazepine 300 mg Tablet 300 mg PO BID Qty: 60 0RF Patient Comments: Patient stopped taking d/t c/o side effects. Dr Simmons aware. multivitamin [Daily-Oswaldo] Tablet 1 tab PO DAILY Qty: 30 0RF sucralfate 1 gram tablet 1 g PO BID Qty: 60 0RF levothyroxine 50 mcg Tablet 50 mcg PO DAILY@0600 Qty: 30 0RF pantoprazole [Protonix] 40 mg tablet,delayed release (DR/EC) 40 mg PO DAILY Qty: 30 0RF pramipexole 0.25 mg tablet 0.25 mg PO BID Qty: 60 0RF folic acid 1 mg Tablet 1 mg PO DAILY Qty: 30 0RF lorazepam 1 mg tablet 1 mg PO DAILY PRN (Reason: anxiety) Qty: 10 0RF albuterol sulfate [Ventolin HFA] 90 mcg/actuation HFA aerosol inhaler 2 puff inhalation Q4-6H PRN (Reason: wheezing) 30 Days Qty: 1 3RF mirtazapine 7.5 mg Tablet 7.5 mg PO BEDTIME Qty: 30 0RF thiamine mononitrate (vit B1) 100 mg Tablet 100 mg PO DAILY Qty: 30 0RF Print Language: Yoruba
--- NOTE | 2024-01-19 22:17 | HO.PHPPROGNO ---
Subjective Subjective Date of Service: 01/19/24 Reason For Visit: bipolar Interim History: She identifies her goals of treatment being 1) no depression or anxiety 2) the ADHD and concentration issues and 3) movement, I'm constantly moving . SHe is no longer experiencing the akithisia (disturbing crawling, agitated feeling, like waves up her legs and throughout her body, unable to control or stop moving) that she was experiencing on oxcarbazepine (and other mood stabilizers). She is still quite hyperactive, but is able to maintain stillness for a minute at a time, otherwise fidgets and wags her foot and rocks in place while seated, but says it feels more like self soothing and restlessness rather than the disturbance she was experiencing on mood stabilizer. Medication Compliance: Yes Side effects from medications: No Attending Groups: Yes Review of Systems Acute medical concerns: No Mental Status Exam Mental Status Exam Narrative: Alert and oriented, in no acute distress. Remains seated, but restless, in near constant motion, rhythmically rocking forward and back, some fluid writhing/grasping motions with hands and less so with feet. No tics or tremor noted. Is aware of movements. Pleasant, cooperative. Mood anxious, affect brighter than expected, anxious, mood congruent. Speech normal, not pressured, allows for reciprocity. Thought process linear, coherent no FOI or MARIO. Thought content related to stressors, denies any helplessness, hopelessness or SI.? No aggressive ideation or HI. No paranoia or delusional content elicited. No evidence of psychosis. Insight and judgment fair but adequate. Diagnostics Vital Signs (24Hr): BMI result Body Mass Index 21.0 Assessment & Plan Assessment & Plan (1) Other bipolar disorders: Status: Acute Code(s): F31.89 - Other bipolar disorder (2) Hyperkinetic syndrome with developmental delay: Status: Acute Code(s): F90.8 - Attention-deficit hyperactivity disorder, other type Assessment and Plan: Chronic hyperkinetic disorder since childhood, likely ADHD hyperactive/impulsive type or combined Hx of Learning Disability and other developmental delays r/o Movement Disorder or other dyskinesia (3) Generalized anxiety disorder: Status: Acute Code(s): F41.1 - Generalized anxiety disorder (4) Acute medication-induced akathisia: Status: Acute Code(s): G25.71 - Drug induced akathisia; T50.905A - Adverse effect of unspecified drugs, medicaments and biological substances, initial encounter Assessment and Plan: r/o psychosomatic disorder or conversion disorder r/o epileptiform disorder r/o behavioral or neuropsychological disturbance (5) Pain disorder associated with psychological factors and medical condition: Status: Acute Code(s): F45.42 - Pain disorder with related psychological factors Assessment and Plan: recently dx with fibromyalgia, although primary pain distribution in this patient (pain in fingertips/under fingernails/palmar and extensor surface of hands and feet VS lower and upper back/neck/chest/hip tenderness other large joint areas affected) is not typical of fibromyalgia alone r/o OA or other arthritides (6) Misuse of prescription only drugs: Status: Acute Code(s): F19.90 - Other psychoactive substance use, unspecified, uncomplicated Assessment and Plan: h/o stimulant abuse, in remission Plan patient continued on short script of clonazepam 0.5 mg qhs to help manage sleep until lab work returns and we settle on a treatment plan start pregabalin 50 mg BID consider pregabalin, propranolol may be helpful, although patient has COPD continue mirtazapine 7.5 mg qhs continue pramipexole 0.25 mg BID continue sulcrafate 1 g BID continue thiamine 100 mg qd continue pantoprazole 40 mg qd pt not taking oxcarbazapine 300 mg consider starting Vitamin B6 Routine lab work will order EKG, routine for baseline QTc for medication considerations UDS as indicated Continue to monitor Patient educated on: diagnosis, medication risk/benefits and substance abuse Informed Consent: understands Reason for contiued partial hosp. stay Substantial Risk for: inability to function, rapid decompensation and med/psych decompensation Certification I certify that partial hospital treatment is medically necessary due to the symptoms and problems resulting from the patient's mental illness and the failure to treat the patient at the partial hospital level of care would likely result in the patient requiring inpatient psychiatric care which could not be prevented at a less intensive level of care. Total time managing care of this patient today __30__ minutes. Discharge Plan Discharge Attending provider: Nat Simmons Medications: New modafinil 100 mg tablet See Rx Instructions .ROUTE .COMPLEX Qty: 20 0RF Rx Instructions: start 1/2 tablet daily in AM for 2 days, then increase to 1 tablet daily in AM choline bitartrate 300 mg tablet extended release 300 mg PO .QD 30 Days Qty: 30 0RF Rx Instructions: take with full glass of water and meal pregabalin 100 mg capsule 100 mg PO TID Qty: 30 0RF [id number] 1,000mcg-680mcg DFE-1.5 mg tablet,chewable 1 tab PO DAILY Qty: 30 0RF pramipexole 0.5 mg tablet 0.5 mg PO TID 15 Days Qty: 45 0RF modafinil 100 mg tablet 50 - 100 mg PO QAM Qty: 14 0RF pregabalin 200 mg capsule 200 mg PO BEDTIME Qty: 14 0RF Continued levothyroxine 50 mcg tablet 50 mcg PO DAILY@0600 Qty: 30 3RF clonazepam 0.5 mg tablet 0.5 mg PO BEDTIME PRN (Reason: for sleep) Qty: 10 0RF Rx Instructions: administer 30 minutes before bedtime multivitamin [Daily-Oswaldo] Tablet 1 tab PO DAILY Qty: 30 0RF sucralfate 1 gram tablet 1 g PO BID Qty: 60 0RF pantoprazole [Protonix] 40 mg tablet,delayed release (DR/EC) 40 mg PO DAILY Qty: 30 0RF folic acid 1 mg Tablet 1 mg PO DAILY Qty: 30 0RF albuterol sulfate [Ventolin HFA] 90 mcg/actuation HFA aerosol inhaler 2 puff inhalation Q4-6H PRN (Reason: wheezing) 30 Days Qty: 1 3RF thiamine mononitrate (vit B1) 100 mg Tablet 100 mg PO DAILY Qty: 30 0RF Changed guanfacine 1 mg tablet extended release 24 hr 1 mg PO QAM AND QHS Qty: 30 0RF Discontinued oxcarbazepine 300 mg Tablet 300 mg PO BID Qty: 60 0RF Patient Comments: Patient stopped taking d/t c/o side effects. Dr Simmons aware. pramipexole 0.25 mg tablet 0.25 mg PO BID Qty: 60 0RF lorazepam 1 mg tablet 1 mg PO DAILY PRN (Reason: anxiety) Qty: 10 0RF mirtazapine 7.5 mg Tablet 7.5 mg PO BEDTIME Qty: 30 0RF Stand Alone Forms: Patient Portal Discharge page Print Language: Wallisian
--- NOTE | 2024-01-20 09:38 | HO.PHP ---
Jaja is not scheduled for groups today due to having an appointment. [facility] staff member engaged in conversation with Jaja to assess for any safety concerns with the upcoming weekend. Jaja disclosed no SI, plan or intent and noted she will be in attendance to program Tuesday. Jaja did have a couple questions around if she could continue with Dr. Simmons outside of this program, [facility] staff member informed her unfortunately she won't be able to since she only sees pt. within the program. [facility] staff member suggested following up with her to see if Dr. Simmons could further engage with her prescriber or if she has any suggestions of new providers in the area. Jaja was receptive. [facility] staff member also followed up with Jaja to see if she has done her labs. Jaja voiced that she provided them with the lab slip yesterday and will be going back today to get those done. [facility] staff member was receptive.
--- NOTE | 2024-01-23 10:02 | HO.PHP ---
[facility] staff member reached out to Jaaj around 8:15 AM to inform her not to attend the program today due to having no coverage at this time for her insurance. [facility] staff member informed her that she doesn't want her to get charged a large bill if the insurance company doesn't cover it and she does come into program today. Jaja was receptive but was frustrated with her insurance company. [facility] staff member disclosed that she will continue to advocate for her and work on getting the extension. 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 [facility] staff member voiced that they are central time, so it may take longer for us to hear back from them. [facility] staff member stated she also called her insurance company again this morning inquiring about receiving more days. [facility] staff member encouraged her to not worry and that she will continue to work on this throughout the day. Jaja was receptive. [facility] staff member voiced that she will keep her updated. Jaja appeared receptive.
--- NOTE | 2024-01-27 23:46 | P.PNPSP_ITS ---
Subjective Subjective Date of Service: 01/26/24 Reason For Visit: bipolar Interim History: Spoke with patient over the phone for over 20 minutes. She had to leave early today. 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 She is tolerating the Lyrica and finds the additional 50 mg midday to target anxiety and pain. She notes that her hands have not been aching, but is unsure if this is related but is feeling hopeful. She continues to hyperactivity/ RLS sx but is not having any recurrence of akithisia on the pregabalin (as she has experienced on many NL and AEDs), and is agreeable to making dosing titrations with the Lyrica and pramipexole. RLS often exacerbated by medications - appears to develop akithisia with neuroleptics but also with some antidepressants, antihistamines, and should also avoid anti-nausea medications. We will continue to avoid these while trying to address her mood, anxiety, restlessness. Lab work thus far with some thyroid dysfunction, low T3 and elevated TG, negative for antiTG. Thrombocytosis noted on past labs going back 2 years, with low MPV, likely reactive/secondary to other cause, with some labwork still pending. Will review next week. Medication Compliance: Yes Side effects from medications: No Attending Groups: Yes Review of Systems Acute medical concerns: No Mental Status Exam Mental Status Exam Narrative: Alert and oriented, in no acute distress. Remains seated, but restless, in near constant motion, rhythmically rocking forward and back, some fluid writhing/grasping motions with hands and less so with feet. No tics or tremor noted. Is aware of movements. Pleasant, cooperative. Mood anxious, affect brighter than expected, anxious, mood congruent. Speech normal, not pressured, allows for reciprocity. Thought process linear, coherent no FOI or MARIO. Thought content related to stressors, denies any helplessness, hopelessness or SI.? No aggressive ideation or HI. No paranoia or delusional content elicited. No evidence of psychosis. Insight and judgment fair but adequate. Diagnostics Vital Signs (24Hr): BMI result Body Mass Index 21.0 Assessment & Plan Assessment & Plan (1) Other bipolar disorders: Status: Acute Code(s): F31.89 - Other bipolar disorder (2) Hyperkinetic syndrome with developmental delay: Status: Acute Code(s): F90.8 - Attention-deficit hyperactivity disorder, other type (3) Generalized anxiety disorder: Status: Acute Code(s): F41.1 - Generalized anxiety disorder (4) Acute medication-induced akathisia: Status: Acute Code(s): G25.71 - Drug induced akathisia; T50.905A - Adverse effect of unspecified drugs, medicaments and biological substances, initial encounter (5) Pain disorder associated with psychological factors and medical condition: Status: Acute Code(s): F45.42 - Pain disorder with related psychological factors (6) Misuse of prescription only drugs: Status: Acute Code(s): F19.90 - Other psychoactive substance use, unspecified, uncomplicated Plan increase Lyrica from 50 mg TID to 50/50/100 mg to help target sleep increase pramipexole to 0.5 mg BID will consider trials of guanfacine and modafinil ?mirtazapine exacerbating RLS reviewed some of the initial lab work, some lab work still pending noted hx of thrombocytosis (likely reactive/2ndary) as well as elevation in thyroglobulin (in excess of >250) patient is agreeable to follow up lab work next week, will check iodine level (high TG), Fe/TIBC (low RBCs) ?calcitonin, and other inflammatory markers plan for ?AIMS, MoCA and ROS Patient educated on: diagnosis, medication risk/benefits and substance abuse Informed Consent: understands Reason for contiued partial hosp. stay Substantial Risk for: inability to function, rapid decompensation and med/psych decompensation Certification I certify that partial hospital treatment is medically necessary due to the symptoms and problems resulting from the patient's mental illness and the failure to treat the patient at the partial hospital level of care would likely result in the patient requiring inpatient psychiatric care which could not be prevented at a less intensive level of care. Total time managing care of this patient today __30__ minutes. Discharge Plan Discharge Attending provider: Nat Simmons Medications: New pregabalin 50 mg capsule 50 mg PO BID Qty: 30 0RF Continued clonazepam 0.5 mg tablet 0.5 mg PO BEDTIME PRN (Reason: for sleep) Qty: 10 0RF Rx Instructions: administer 30 minutes before bedtime multivitamin [Daily-Oswaldo] Tablet 1 tab PO DAILY Qty: 30 0RF sucralfate 1 gram tablet 1 g PO BID Qty: 60 0RF levothyroxine 50 mcg Tablet 50 mcg PO DAILY@0600 Qty: 30 0RF pantoprazole [Protonix] 40 mg tablet,delayed release (DR/EC) 40 mg PO DAILY Qty: 30 0RF pramipexole 0.25 mg tablet 0.25 mg PO BID Qty: 60 0RF folic acid 1 mg Tablet 1 mg PO DAILY Qty: 30 0RF albuterol sulfate [Ventolin HFA] 90 mcg/actuation HFA aerosol inhaler 2 puff inhalation Q4-6H PRN (Reason: wheezing) 30 Days Qty: 1 3RF mirtazapine 7.5 mg Tablet 7.5 mg PO BEDTIME Qty: 30 0RF thiamine mononitrate (vit B1) 100 mg Tablet 100 mg PO DAILY Qty: 30 0RF No Action oxcarbazepine 300 mg Tablet 300 mg PO BID Qty: 60 0RF Patient Comments: Patient stopped taking d/t c/o side effects. Dr Simmons aware. lorazepam 1 mg tablet 1 mg PO DAILY PRN (Reason: anxiety) Qty: 10 0RF Print Language: [place] [facility]health [facility] Telehealth method: voice only
--- NOTE | 2024-01-30 23:30 | PM.EVENT ---
Event Note Date of Service: 03/25/24 Event Note: Called patient to check in on medication changes to see if she was had any questions of concerns. She was able to pickling grader the modafinil (which was covered by her insurance). She also picked up the guanfacine and will start on that this afternoon. WIll plan to start modafinil next week after sorting out the guanfacine which should help anxiety and mitigate physically activation from the stimulant and lower heart rate. No other issues or concerns, will follow up nextr week. Time Spent With Patient Time: Total time managing care of this patient today __20__ minutes.
--- NOTE | 2024-01-31 08:23 | HO.PHP ---
Jaja is not scheduled for program today due to going away for a family event.
--- NOTE | 2024-02-02 21:02 | HO.PHPPROGNO ---
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 She is tolerating the Lyrica and finds the additional 50 mg midday helpful to target anxiety and pain. She notes that her hands have not been aching, but is unsure if this is related but is feeling hopeful. She continues wto present with hyperactivity and reporting RLS symptoms, but says with the pregabalin she is not experiencing any akithisia-like symptoms (distressing waves of internal agitation, coming out of my skin clawing at herself, unable to hold self still, causing acute irritability) like she has experienced on many other medications (all neuroleptics and many AED mood stabilizers). She denies any sedation, and feels there is still room to improve and is agreeable to making further dosing titrations with the Lyrica and pramipexole. She is aware her RLS often exacerbated by medications - appears to have developed akithisia/worsening RLS on antidepressants, antihistamines, as well as antipsychotic meds (see Allergy list). I advise her to also avoid anti-nausea medications. We will also continue to avoid the above medications while trying to address her mood, anxiety, restlessness, dyskinesia. She is still quite restless but there have been some notable improvements objectively and subjectively. Reviewed lab work with patient: Lab work thus far with some thyroid dysfunction, low FT3 and elevated TG, negative for TG Abs, antiTPO. Will recheck iodine level. Thrombocytosis noted on past labs going back 2 years, low MPV, so likely reactive/2ndary to other cause Anemia RBC trending lower, pending Fe studies h/o folate deficiency, labs show heterozygous MTHFR gene mutation, which should not require L-MTHF however given elevation in homocysteine, also Vitamins B1, B6, B12 on lower end, in context of neurological/psych presentation waiting for MMA to return to rule out functional deficiency B12. some lab work still pending. Will review next week. Mental Status Exam Mental Status Exam Narrative: Alert and oriented, in no acute distress. Remains seated, less restless, was calmer periodically rocking forward and back but not constantly, some fluid writhing/grasping motions with hands and less so with feet. No tics or tremor noted. Is aware of movements. Pleasant, cooperative. Mood anxious, affect brighter than expected, anxious, mood congruent. Speech normal, not pressured, allows for reciprocity. Thought process linear, coherent no FOI or MARIO. Thought content related to stressors, denies any helplessness, hopelessness or SI.? No aggressive ideation or HI. No paranoia or delusional content elicited. No evidence of psychosis. Insight and judgment fair but adequate. Diagnostics Vital Signs (24Hr): BMI result Body Mass Index 21.0 Assessment & Plan Assessment & Plan (1) Other bipolar disorders: Status: Acute Code(s): F31.89 - Other bipolar disorder (2) Post-traumatic stress disorder, unspecified: Status: Acute Code(s): F43.10 - Post-traumatic stress disorder, unspecified (3) Hyperkinetic syndrome with developmental delay: Status: Acute Code(s): F90.8 - Attention-deficit hyperactivity disorder, other type (4) Acute medication-induced akathisia: Status: Acute Code(s): G25.71 - Drug induced akathisia; T50.905A - Adverse effect of unspecified drugs, medicaments and biological substances, initial encounter (5) Reactive thrombocytosis: Status: Acute Code(s): D75.838 - Other thrombocytosis Plan start modafinil 50 mg qAM (target problematic sx of ADHD) try moving guanfacine ER 1 mg from HS to 3pm today (to better target anxiety, impulsivity, restlessness and start AM guanfacine ER 1 mg once modafinil at 100 mg qam increase pregabalin to 75/75/150 mg to help target sleep continue pramipexole 0.5 mg TID continue clonazepam 0.5 mg qhs sleep continue LT4 50 mcg qd continue other regular medications - pantoprazole, sulcrafate, albuterol continue thiamine 100 mg qd continue folic acid for now, will likely switch over to L-MTHF and add on other discontinued: mirtazapine (AE:exacerbate RLS/akithisia); oxcarbazepine (AE:exacerbate RLS/akithisia) reviewed lab findings including: reactive thrombocytosis (elevated Plts, norm MPV) normocytic anemia (low RBC, normal Hb/Hct), still waiting on iron studies elevated thyroglobulin (>250), low T3, remaining TFTs still pending, add on iodine level (re: elevated TG) MTHFR gene single mutation which can be asso w the homocysteine elevation, pending methylmalonic acid level will hold off ordering vitamin B complex (B6, B9, B12) supplementation until MMA returns, will likely order B12, reorder B9 supplement as L-methylhydrofolate, also methylated B12 (discont folic acid) (broad spectrum vit B insufficiencies may be contributing to poor tolerance of many psychiatric medications (causing neuro-motor side effects/akithisia), Developmental hx including ADHD dx (long history of hyperactivity) further complicating picture *interestingly, FH+ cleft palate in 2nd child (?folate deficiency), Learning disability and ADHD dx in at least 2 of her children Patient educated on: diagnosis, medication risk/benefits, substance abuse and medical condition Informed Consent: understands Reason for contiued partial hosp. stay Substantial Risk for: med/psych decompensation and other Certification I certify that partial hospital treatment is medically necessary due to the symptoms and problems resulting from the patient's mental illness and the failure to treat the patient at the partial hospital level of care would likely result in the patient requiring inpatient psychiatric care which could not be prevented at a less intensive level of care. Total time managing care of this patient today _40___ minutes. Discharge Plan Discharge Attending provider: Nat Simmons Medications: New pregabalin 50 mg capsule 50 mg PO BID Qty: 30 0RF modafinil 100 mg tablet See Rx Instructions .ROUTE .COMPLEX Qty: 20 0RF Rx Instructions: start 1/2 tablet daily in AM for 2 days, then increase to 1 tablet daily in AM guanfacine 1 mg tablet extended release 24 hr 1 mg PO QPM Qty: 20 0RF pramipexole 0.5 mg tablet 0.5 mg PO TID Qty: 30 0RF pregabalin 75 mg capsule 75 mg PO TID Qty: 30 0RF choline bitartrate 300 mg tablet extended release 300 mg PO .QD 30 Days Qty: 30 0RF Rx Instructions: take with full glass of water and meal pregabalin 100 mg capsule 100 mg PO TID Qty: 30 0RF [id number]-D5 1,000mcg-680mcg DFE-1.5 mg tablet,chewable 1 tab PO DAILY Qty: 30 0RF Continued clonazepam 0.5 mg tablet 0.5 mg PO BEDTIME PRN (Reason: for sleep) Qty: 10 0RF Rx Instructions: administer 30 minutes before bedtime multivitamin [Daily-Oswaldo] Tablet 1 tab PO DAILY Qty: 30 0RF sucralfate 1 gram tablet 1 g PO BID Qty: 60 0RF pantoprazole [Protonix] 40 mg tablet,delayed release (DR/EC) 40 mg PO DAILY Qty: 30 0RF folic acid 1 mg Tablet 1 mg PO DAILY Qty: 30 0RF albuterol sulfate [Ventolin HFA] 90 mcg/actuation HFA aerosol inhaler 2 puff inhalation Q4-6H PRN (Reason: wheezing) 30 Days Qty: 1 3RF thiamine mononitrate (vit B1) 100 mg Tablet 100 mg PO DAILY Qty: 30 0RF Discontinued oxcarbazepine 300 mg Tablet 300 mg PO BID Qty: 60 0RF Patient Comments: Patient stopped taking d/t c/o side effects. Dr Simmons aware. pramipexole 0.25 mg tablet 0.25 mg PO BID Qty: 60 0RF lorazepam 1 mg tablet 1 mg PO DAILY PRN (Reason: anxiety) Qty: 10 0RF mirtazapine 7.5 mg Tablet 7.5 mg PO BEDTIME Qty: 30 0RF No Action levothyroxine 50 mcg tablet 50 mcg PO DAILY@0600 Qty: 30 3RF Stand Alone Forms: Patient Portal Discharge page Print Language: Maltese
--- NOTE | 2024-02-06 11:35 | HO.PHP ---
[facility] staff member followed up with Jaja due to her stating she was walking to program and would be late. Jaja did not arrive to program, therefore a phone call was placed. Jaja disclosed that she was having a difficult morning due to waking up late and not communicating correctly with her around needing the car, therefore she had to walk to the program. Jaja voiced that because she woke up late she tried to get to the closest bus stop but missed the bus and the next bus wasn't coming for another hour. Jaja disclosed she would have been late to the program so she decided to turn around and go home. [facility] staff was receptive. Jaja also shared about her struggles with her , in which couples therapy was suggested. Jaja appeared receptive. [facility] staff member assessed for safety, in which no safety concerns were reported and she will be in attendance to program tomorrow.
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
--- NOTE | 2024-02-09 21:50 | P.PNPSP_ITS ---
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 There has been a lot of stress but feels overall she is handling things a little better than she would otherwise have expected. Still reactive in the moment but is able to leverage self control in a shorter time frame. She is pleased that despite the hardships, she is still making it to the program I'm showing up here and with humor . She has been walking and taking the bus on account of not wanting to deal with her as she feels her often undermines her, often scapegoating her because of her mental health issues and feels he does not take accountability for his attitude or behavior and generally avoids difficult conversations because it is far easier to blame her for any problems. She says she sometimes feels she gets gaslit . Her son has also relapsed which is causing her a lot of distress. Had I run into these problems a couple of weeks ago, I would have quit the program and crawled up into a ball on the couch . As we have been moving up on the pregabalin she has been sleeping better. She is feeling calmer in the evenings, which she feels might be a mix of the guanfacine as well as the extra dose of pramipexole. SHe is also noting that her mood is better which may also be on account of the increases in pramipexole. She is especially appreciative that not only are none of the new medications causing her the usual RLS/akithisia problems, she feels they are helping her feel calming and is notably less fidgety. Her notices that she is not shaking the bed and she says she is able to lie still for longer periods (whether on the beach, watching tv or lying in bed). We review the remaining lab work findings, including a very high MMA level (>1000), and is likely indicative of a functional vitamin B12 deficiency, seeing that her vitamin B12 level of 311 isn't technically abnormal, she may have a defect in metabolism of MMCoA or cobalamin, either way we should start supplementation for B12 as well as other suboptimal vitamin B levels, especially given tendency toward motor/neurological side effects from medications and ongoing restlessness/hyperactivity. Also RBC continue to decline so patient is agreeable to follow up on a few more labs to work r/o pernicious anemia given B12 deficiency. Medication Compliance: Yes Side effects from medications: No Attending Groups: Yes Review of Systems Acute medical concerns: No Mental Status Exam Mental Status Exam Narrative: Alert and oriented, in no acute distress. Remains seated, hyperactive, animated communicator, occasionally rocking rocking forward and back (no longer constant), no further fluid writhing/grasping motions. No tics or tremor noted. Pleasant, cooperative. Mood better , affect anxious at times, bright, mood congruent. Speech normal, not pressured, allows for reciprocity. Thought process linear, coherent no FOI or MARIO. Thought content related to stressors, denies any helplessness, hopelessness or SI.? No aggressive ideation or HI. No paranoia or delusional content elicited. No evidence of psychosis. Insight and judgment fair but adequate. Diagnostics Vital Signs (24Hr): BMI result Body Mass Index 21.0 Assessment & Plan Assessment & Plan (1) Other bipolar disorders: Status: Acute Code(s): F31.89 - Other bipolar disorder (2) Post-traumatic stress disorder, unspecified: Status: Acute Code(s): F43.10 - Post-traumatic stress disorder, unspecified (3) Hyperkinetic syndrome with developmental delay: Status: Acute Code(s): F90.8 - Attention-deficit hyperactivity disorder, other type (4) Acute medication-induced akathisia: Status: Acute Code(s): G25.71 - Drug induced akathisia; T50.905A - Adverse effect of unspecified drugs, medicaments and biological substances, initial encounter (5) Vitamin B12 deficiency anemia, unspecified: Status: Acute Code(s): D51.9 - Vitamin B12 deficiency anemia, unspecified (6) Heterozygous MTHFR mutation 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: Status: Acute Code(s): Z15.89 - Genetic susceptibility to other disease Assessment and Plan: elevated homocysteine, hx of folate deficiency, normocytic anemia Plan continue modafinil 100 mg qAM start guanfacine ER 1 mg qAM (will check VS tomorrow AM) continue guanfacine ER 1-2 mg qd at 5 pm - to better target anxiety, impulsivity, restlessness increase pregabalin to 100/100/200 mg continue pramipexole 0.5 mg TID (take with pregabalin) continue clonazepam 0.5 mg qhs sleep as PRN continue LT4 50 mcg qd continue other regular medications - pantoprazole, sulcrafate, albuterol continue thiamine 100 mg qd start cobalamin supplementation for functional B12 deficiency - will order methylated vitamin B complex (B6, B9, B12) discontinue folic acid since switching to L-mthfolate discontinued: mirtazapine (AE:exacerbate RLS); oxcarbazepine (AE:exacerbate RLS) patient agreeable to follow up lab work: anti IF and parietal cell Abs to r/o PA new PCP appointment at [facility] in March reviewed lab work including: -MMA returned high at 1131 (normal <390), also elevated Hcy 12.4 - both are indicative of a functional vit B12 deficiency w anemia - even with low/normal B12 (homocysteine, methylmalonic acid levels are better indicators of vitamin 12 defic) - r/o pernicious anemia -other vitamin B insufficiencies (1,6,12) and B9/folate deficiency in the past, FH+ cleft palate (but pt only heterozygous MTHFR gene mutation) - will still plan to use methylated supplementation given quite high MMA, Hcy elevation -Normocytic anemia: RBC continues to drop 3.75 today, (Hct now low, Hb still wnl) Iron studies are normal, will r/o PA -reactive thrombocytosis (elevated Plts, norm MPV) unclear etiology - ?inflammatory, AI, neoplasm - will defer to primary care for f/u -isolated elevated thyroglobulin (>250), remaining TFTs wnl, iodine level wnl, neg antiTPO and TG Abs - will continue LT4 Patient educated on: diagnosis, medication risk/benefits, substance abuse and medical condition Informed Consent: understands Reason for contiued partial hosp. stay Substantial Risk for: med/psych decompensation and other Certification I certify that partial hospital treatment is medically necessary due to the symptoms and problems resulting from the patient's mental illness and the failure to treat the patient at the partial hospital level of care would likely result in the patient requiring inpatient psychiatric care which could not be prevented at a less intensive level of care. Total time managing care of this patient today _30___ minutes. Discharge Plan Discharge Attending provider: Nat Simmons Medications: New pregabalin 50 mg capsule 50 mg PO BID Qty: 30 0RF modafinil 100 mg tablet See Rx Instructions .ROUTE .COMPLEX Qty: 20 0RF Rx Instructions: start 1/2 tablet daily in AM for 2 days, then increase to 1 tablet daily in AM guanfacine 1 mg tablet extended release 24 hr 1 mg PO QPM Qty: 20 0RF pramipexole 0.5 mg tablet 0.5 mg PO TID Qty: 30 0RF pregabalin 75 mg capsule 75 mg PO TID Qty: 30 0RF choline bitartrate 300 mg tablet extended release 300 mg PO .QD 30 Days Qty: 30 0RF Rx Instructions: take with full glass of water and meal pregabalin 100 mg capsule 100 mg PO TID Qty: 30 0RF [id number] 1,000mcg-680mcg DFE-1.5 mg tablet,chewable 1 tab PO DAILY Qty: 30 0RF Continued clonazepam 0.5 mg tablet 0.5 mg PO BEDTIME PRN (Reason: for sleep) Qty: 10 0RF Rx Instructions: administer 30 minutes before bedtime multivitamin [Daily-Oswaldo] Tablet 1 tab PO DAILY Qty: 30 0RF sucralfate 1 gram tablet 1 g PO BID Qty: 60 0RF pantoprazole [Protonix] 40 mg tablet,delayed release (DR/EC) 40 mg PO DAILY Qty: 30 0RF folic acid 1 mg Tablet 1 mg PO DAILY Qty: 30 0RF albuterol sulfate [Ventolin HFA] 90 mcg/actuation HFA aerosol inhaler 2 puff inhalation Q4-6H PRN (Reason: wheezing) 30 Days Qty: 1 3RF thiamine mononitrate (vit B1) 100 mg Tablet 100 mg PO DAILY Qty: 30 0RF Discontinued oxcarbazepine 300 mg Tablet 300 mg PO BID Qty: 60 0RF Patient Comments: Patient stopped taking d/t c/o side effects. Dr Simmons aware. pramipexole 0.25 mg tablet 0.25 mg PO BID Qty: 60 0RF lorazepam 1 mg tablet 1 mg PO DAILY PRN (Reason: anxiety) Qty: 10 0RF mirtazapine 7.5 mg Tablet 7.5 mg PO BEDTIME Qty: 30 0RF No Action levothyroxine 50 mcg tablet 50 mcg PO DAILY@0600 Qty: 30 3RF Stand Alone Forms: Patient Portal Discharge page Print Language: Welsh
[2024-02-10 11:28] VITALS: BP 96/60; PULSE 70; RESP 18; TEMP 36.4
--- NOTE | 2024-02-14 11:28 | HO.PHPPROGNO ---
Subjective Subjective Date of Service: 02/14/24 Reason For Visit: bipolar Healthcare Proxy: No Guardianship: No Medical Problems Affecting Mental Status: No Interim History: pt reports eduin Er at 3pm and 9 pm is helping her anxiety, adhd and asleep. she reports she si struggling emotionally as her son was arrested in [place] for drug charges and hse is very worried; she is re-experiencing the trauma of the loss of her oldest son who from addiction. she si struggling with setting limits- helping her son but also taking care of herself; she is worried and sad. she is still very physically active and has racing thoughts; she rocks in the chair; she states the akathesia is much better but still there at times. lab results still pending. Medication Compliance: Yes Side effects from medications: No Attending Groups: Yes Review of Systems Acute medical concerns: No Mental Status Exam Mental Status Exam Patient Appearance: Well Grooomed and Appropriate Patient Orientation: Person, Place, Time and Situation Level of Consciousness: Awake Patient Behavior: Appropriate Mood Description: Anxious and Sad Affect Description: Anxious and Sad Patient Cognition Impaired: No Ability to Follow Directions: Good Speech Pattern: Clear, Appropriate and Rambling Memory Description: Intact Hallucinations: None Delusions: Not Present Thought Process: Intact and Goal Oriented Thought Content: positive for Intact, positive for Goal Oriented and positive for Loose Associations (at times ) Judgement: Good Diagnostics Vital Signs (24Hr): BMI result Body Mass Index 21.0 Assessment & Plan Assessment & Plan (1) Post-traumatic stress disorder, unspecified: Status: Acute Code(s): F43.10 - Post-traumatic stress disorder, unspecified (2) Other mixed anxiety disorders: Status: Acute Code(s): F41.3 - Other mixed anxiety disorders (3) Restless leg syndrome: Status: Acute Code(s): G25.81 - Restless legs syndrome (4) Generalized anxiety disorder: Status: Acute Code(s): F41.1 - Generalized anxiety disorder (5) Post traumatic stress disorder (PTSD): Status: Acute Code(s): F43.10 - Post-traumatic stress disorder, unspecified Plan pt is not ready fo discharge due to continued symptoms and recent increase in severe stress continue medications as prescribed. Patient educated on: diagnosis, medication risk/benefits and therapeutic strategies Informed Consent: understands and further education needed Reason for contiued partial hosp. stay Substantial Risk for: harm to self and rapid decompensation Certification I certify that partial hospital treatment is medically necessary due to the symptoms and problems resulting from the patient's mental illness and the failure to treat the patient at the partial hospital level of care would likely result in the patient requiring inpatient psychiatric care which could not be prevented at a less intensive level of care. Total time managing care of this patient today ____ minutes. Discharge Plan Discharge Attending provider: Nat Simmons Medications: New modafinil 100 mg tablet See Rx Instructions .ROUTE .COMPLEX Qty: 20 0RF Rx Instructions: start 1/2 tablet daily in AM for 2 days, then increase to 1 tablet daily in AM choline bitartrate 300 mg tablet extended release 300 mg PO .QD 30 Days Qty: 30 0RF Rx Instructions: take with full glass of water and meal pregabalin 100 mg capsule 100 mg PO TID Qty: 30 0RF [id number]-R1 1,000mcg-680mcg DFE-1.5 mg tablet,chewable 1 tab PO DAILY Qty: 30 0RF pramipexole 0.5 mg tablet 0.5 mg PO TID 15 Days Qty: 45 0RF Continued levothyroxine 50 mcg tablet 50 mcg PO DAILY@0600 Qty: 30 3RF clonazepam 0.5 mg tablet 0.5 mg PO BEDTIME PRN (Reason: for sleep) Qty: 10 0RF Rx Instructions: administer 30 minutes before bedtime multivitamin [Daily-Oswaldo] Tablet 1 tab PO DAILY Qty: 30 0RF sucralfate 1 gram tablet 1 g PO BID Qty: 60 0RF pantoprazole [Protonix] 40 mg tablet,delayed release (DR/EC) 40 mg PO DAILY Qty: 30 0RF folic acid 1 mg Tablet 1 mg PO DAILY Qty: 30 0RF albuterol sulfate [Ventolin HFA] 90 mcg/actuation HFA aerosol inhaler 2 puff inhalation Q4-6H PRN (Reason: wheezing) 30 Days Qty: 1 3RF thiamine mononitrate (vit B1) 100 mg Tablet 100 mg PO DAILY Qty: 30 0RF Changed guanfacine 1 mg tablet extended release 24 hr 1 mg PO QAM AND QHS Qty: 30 0RF Discontinued oxcarbazepine 300 mg Tablet 300 mg PO BID Qty: 60 0RF Patient Comments: Patient stopped taking d/t c/o side effects. Dr Simmons aware. pramipexole 0.25 mg tablet 0.25 mg PO BID Qty: 60 0RF lorazepam 1 mg tablet 1 mg PO DAILY PRN (Reason: anxiety) Qty: 10 0RF mirtazapine 7.5 mg Tablet 7.5 mg PO BEDTIME Qty: 30 0RF Stand Alone Forms: Patient Portal Discharge page Print Language: Belarusian
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
--- NOTE | 2024-02-22 09:33 | HO.PHP ---
PHP admin, Fawn, informed the team that Jaja had contacted her stating that she will not be in attendance to program today due to needing a break. Fawn disclosed that Jaja reported she was safe and will be in attendance to program tomorrow.
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
--- NOTE | 2024-02-24 22:43 | HO.PHPPROGNO ---
Subjective Subjective Date of Service: 02/24/24 Reason For Visit: bipolar Interim History: Patient seen for follow-up, anticipating discharge at the end of program today.? Continues with significant marriage stressors. Has been managing independently, has been walking all week to make it to the program because she has not access to their finances or her car at this time. She sahres thoughts to pursue legal actions. She is hoping to return to the program in upcoming weeks as she is still in need of support but for the time she feels she is managing well and says she is pleased with herself. She is aware there is still work to be done on mood stability however neurological side effects have limited her treatment in the past. Thus far she has been tolerating current medication regime and expresses gratitude at our methodical approach. Reports being medication compliant, medications well-tolerated. Denies any adverse effects. Denies any hopelessness or SI. Denies thoughts of harming self or others at this time. Denies any aggressive ideation or HI. Denies any paranoia or AH or VH. Sleep, appetite, energy stable. Medication Compliance: Yes Side effects from medications: No Attending Groups: Yes Review of Systems Acute medical concerns: No Mental Status Exam Mental Status Exam Narrative: Alert and oriented, in no acute distress. Remains seated, hyperactive, animated communicator. No tics or tremor noted. Pleasant, cooperative. Mood better , affect variable anxious at times, bright, some sadness and lability persist. Speech normal, not pressured, allows for reciprocity. Thought process linear, coherent no FOI or MARIO. Thought content related to stressors, denies any helplessness, hopelessness or SI.? No aggressive ideation or HI. No paranoia or delusional content elicited. No evidence of psychosis. Insight and judgment fair but adequate. Diagnostics Vital Signs (24Hr): BMI result Body Mass Index 21.0 Assessment & Plan Assessment & Plan (1) Other bipolar disorders: Status: Acute Code(s): F31.89 - Other bipolar disorder (2) Hyperkinetic syndrome with developmental delay: Status: Acute Code(s): F90.8 - Attention-deficit hyperactivity disorder, other type Assessment and Plan: Chronic hyperkinetic disorder since childhood, likely ADHD hyperactive/impulsive type or combined Hx of Learning Disability and other developmental delays r/o Movement Disorder or other dyskinesia (3) Generalized anxiety disorder: Status: Acute Code(s): F41.1 - Generalized anxiety disorder (4) Acute medication-induced akathisia: Status: Acute Code(s): G25.71 - Drug induced akathisia; T50.905A - Adverse effect of unspecified drugs, medicaments and biological substances, initial encounter Assessment and Plan: r/o psychosomatic disorder or conversion disorder r/o epileptiform disorder r/o behavioral or neuropsychological disturbance (5) Pain disorder associated with psychological factors and medical condition: Status: Acute Code(s): F45.42 - Pain disorder with related psychological factors Assessment and Plan: recently dx with fibromyalgia, although primary pain distribution in this patient (pain in fingertips/under fingernails/palmar and extensor surface of hands and feet VS lower and upper back/neck/chest/hip tenderness other large joint areas affected) is not typical of fibromyalgia alone r/o OA or other arthritides (6) Misuse of prescription only drugs: Status: Acute Code(s): F19.90 - Other psychoactive substance use, unspecified, uncomplicated Assessment and Plan: h/o stimulant abuse, in remission Plan Discharge from [facility] Continue regular medications Refills sent to pharmacy Will defer further medication management to outpatient provider *Safety plan reviewed *Discharge diagnoses, treatment course, discharge plan have been reviewed with patient (including medication regime, medication management, potential side effects) as well as treatment rationale were also revisited *Discharge paperwork signed and given to patient, copy sent for scanning to chart *If patient wishes, outpatient provider may reach out for any further questions or clarification as pertains to this patient?s clinical care/treatment during their stay at [facility] (contact information provided to patient)? Alert, oriented, in no acute distress. Calm, cooperative. Mood stable, affect appropriate. Speech normal. Thought process linear, coherent, more goal-directed. Thought content related to stressors, future-oriented, denies any helplessness, hopelessness or SI.? No aggressive ideation or HI. No paranoia or delusional content elicited. No evidence of psychosis. Insight and judgment fair-good. Patient educated on: diagnosis and medication risk/benefits Informed Consent: understands Reason for contiued partial hosp. stay Substantial Risk for: stable for discharge Certification I certify that partial hospital treatment is medically necessary due to the symptoms and problems resulting from the patient's mental illness and the failure to treat the patient at the partial hospital level of care would likely result in the patient requiring inpatient psychiatric care which could not be prevented at a less intensive level of care. Total time managing care of this patient today _30___ minutes. Discharge Plan Discharge Attending provider: Nat Simmons Medications: New choline bitartrate 300 mg tablet extended release 300 mg PO .QD 30 Days Qty: 30 0RF Patient Comments: Patient stated she does not know if she should be taking this. Rx Instructions: take with full glass of water and meal [id number] 1,000mcg-680mcg DFE-1.5 mg tablet,chewable 1 tab PO DAILY Qty: 30 0RF cholecalciferol (vitamin D3) [Vitamin D3] 50 mcg (2,000 unit) capsule 100 mcg PO DAILY Qty: 60 2RF Continued levothyroxine 50 mcg tablet 50 mcg PO DAILY@0600 Qty: 30 3RF pramipexole 0.5 mg tablet 0.5 mg PO TID 15 Days Qty: 45 0RF pregabalin 150 mg capsule 150 mg PO BID 15 Days Qty: 30 0RF modafinil 100 mg tablet 50 - 100 mg PO QAM Qty: 20 0RF multivitamin [Daily-Oswaldo] Tablet 1 tab PO DAILY Qty: 30 0RF Patient Comments: Patient stated she does not know if she should still be taking this. pantoprazole [Protonix] 40 mg tablet,delayed release (DR/EC) 40 mg PO DAILY Qty: 30 0RF Patient Comments: Patient reports she is not taking this. albuterol sulfate [Ventolin HFA] 90 mcg/actuation HFA aerosol inhaler 2 puff inhalation Q4-6H PRN (Reason: wheezing) 30 Days Qty: 1 3RF thiamine mononitrate (vit B1) 100 mg Tablet 100 mg PO DAILY Qty: 30 0RF Patient Comments: Patient not sure if she should still be taking this. Changed guanfacine 1 mg tablet extended release 24 hr 1 mg PO QAM AND QHS Qty: 60 0RF Discontinued oxcarbazepine 300 mg Tablet 300 mg PO BID Qty: 60 0RF Patient Comments: Patient stopped taking d/t c/o side effects. Dr Simmons aware. pramipexole 0.25 mg tablet 0.25 mg PO BID Qty: 60 0RF folic acid 1 mg Tablet 1 mg PO DAILY Qty: 30 0RF lorazepam 1 mg tablet 1 mg PO DAILY PRN (Reason: anxiety) Qty: 10 0RF mirtazapine 7.5 mg Tablet 7.5 mg PO BEDTIME Qty: 30 0RF No Action clonazepam 0.5 mg tablet 0.5 mg PO BEDTIME PRN (Reason: for sleep) Qty: 14 0RF Rx Instructions: administer 30 minutes before bedtime pregabalin 200 mg capsule 200 mg PO BEDTIME 14 Days Qty: 14 0RF pregabalin 150 mg capsule 150 mg PO TID 15 Days Qty: 45 0RF Rx Instructions: =DOSE INCREASE= pregabalin 100 mg capsule 100 mg PO BEDTIME Qty: 15 0RF Rx Instructions: take 1 capsule along with one 150 mg capsule (=250 mg) QHS. Stand Alone Forms: Patient Portal Discharge page Patient Education: Bipolar Disorder (DC) Print Language: Hebrew
--- NOTE | 2024-02-29 22:54 | PM.EVENT ---
Event Note Date of Service: 03/07/24 Event Note: Patient requesting refills on modafinil and pregabalin 200s, scripts sent to [facility] (AM/afternoon pregabalin 150s not yet due). Requested a call back. Jaja says her therapist Lemuel is setting her up with a new provider and as we discussed she requested that the provider see her in person. She feels she is doing well with her medications. She continues getting good sleep, is sleeping over 6 hours which she is still thrilled about. Says she used to get only an hour or 2 at a time, which was due to all the chronic RLS along with acutely occurring agitation that had been stemming from her poor tolerance of medications. She is doing well with the pregabalin and pramipexole and has been taking the vitamin B complex (methylated) supplement every day. She is still having trouble with her , she feels he tries to egg her on and make her look bad so that he can blame her when he goes away on his trips (without her). She says he continues to see be involved with someone else, but has been trying to just focus on her own health and self care. She describes an episode of becoming emotional (angry) due to her being critical and insulting, says she got pretty angry, but stormed off and went for a walk. She feels these outbursts occur less frequently and she is able to recover more quickly. She is looking forward to return to [facility] and will plan to see if she is better able to tolerate a low dose of a mood stabilizer (has only been able to tolerate Lyrica which we are using for mood stabilization, but hopefully as her chronic woodall-vitamin B deficiencies recover, perhaps she will better tolerate an AED or AP mood stabilizer Time Spent With Patient Time: Total time managing care of this patient today ____ minutes.
--- NOTE | 2024-03-09 21:43 | PM.EVENT ---
Event Note Date of Service: 03/25/24 Event Note: Returned call to patient who is in need of refills on her pregabalin 150 mgs (AM, afternoon), 200 mgs (HS), pramipexole 0.5 mg TID, guanfacine 1 mg BID. Scripts were efaxed to pharmacy. She says she continues to have a difficult relationship with her and is looking forward to returning to [facility] next week for support. Time Spent With Patient Time: Total time managing care of this patient today __15__ minutes.
== END 2024-02-24 23:59 | disposition home or self-care (01) ==
LOC: HO.PHPA 11:45
PROVIDERS: Visit Provider Psychiatry & Neurology Psychiatry
DX: F31.89 Other bipolar disorder (principal); F90.8 Attention-deficit hyperactivity disorder, other type; F41.1 Generalized anxiety disorder; G25.71 Drug induced akathisia; T50.905A Adverse effect of unspecified drugs, medicaments and biological substances, initial encounter; F45.42 Pain disorder with related psychological factors; F19.90 Other psychoactive substance use, unspecified, uncomplicated; Z79.899 Other long term (current) drug therapy
CPT/HCPCS: 80307; 90791; 90853

== ENCOUNTER 2024-03-16 12:00 | Outpatient (RCR) | payer MEDICARE, SELFPAY ==
[2024-03-16 11:43] VITALS: BMI 18.1
[2024-03-16 11:47] VITALS: BP 89/54; PULSE 69; TEMP 36.9
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
--- NOTE | 2024-03-19 09:58 | PC.NURSE ---
Patient stated last Tuesday that she would not be attending PHP 03/19/24 as she has a doctor's appointment.
--- NOTE | 2024-03-22 09:30 | HO.PHP ---
[facility] staff member contacted Jaja to discuss transportation to the program and if she is able to continue at this time. [facility] staff member left a voicemail and is awaiting a call back at this time.
--- NOTE | 2024-03-22 14:43 | HO.PHP ---
Client's case has been opened and reviewed in team.
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
--- NOTE | 2024-04-10 15:22 | PC.NURSE ---
Jaja Beebe called and left a message on 04/10/24 stating she thinks Pregabalin medication is making her feel dizzy and wanted to decrease the dose back to 150 mg BID and take 200 mg at HS instead of 200 mg TID. Jaja stated she recently had a therapist appointment this week however has not had her prescriber appointment as of yet. Jaja most recently was admitted inpatient at [facility]. I called Jaja to f/u and left her a message to call me back. Awaiting call back.
--- NOTE | 2024-04-11 09:09 | PC.NURSE ---
Jaja called and left a message returning my call on 04/11/24 stating she was sorry she missed my call. She asked for me to call her on 04/11/24 in the morning. I called her x3 this morning however I was not able to leave a message as there was no voicemail.
== END 2024-03-16 23:59 | disposition home or self-care (01) ==
LOC: HO.PHPA 12:00
PROVIDERS: Visit Provider Psychiatry & Neurology Psychiatry
DX: F31.9 Bipolar disorder, unspecified (principal); F90.8 Attention-deficit hyperactivity disorder, other type; F43.10 Post-traumatic stress disorder, unspecified; F45.42 Pain disorder with related psychological factors; Z79.899 Other long term (current) drug therapy
CPT/HCPCS: 90791; 90853

== ENCOUNTER → 2024-03-16 12:00 | Outpatient (BNV) | payer MEDICARE, SELFPAY | PROVIDERS: Visit Provider Psychiatry & Neurology Psychiatry | DX: F31.9 Bipolar disorder, unspecified (principal); F90.8 Attention-deficit hyperactivity disorder, other type; F43.10 Post-traumatic stress disorder, unspecified; F45.42 Pain disorder with related psychological factors | CPT/HCPCS: 90792 ==

== ENCOUNTER 2024-03-19 10:09 | Outpatient (AMB) | payer MEDICARE, SELFPAY ==
[2024-03-19 10:19] VITALS: BP 92/52; PULSE 81; O2SAT 95; BMI 17.6
--- NOTE | 2024-03-19 10:19 | A.OFFPC_ITS ---
Vital Signs 03/19/24 10:19 Height 5 ft 1 in Weight 93 lb BMI 17.6 BP 92/52 L Blood Pressure Location Rt brachial Position Sitting Pulse 81 Pulse Source Pulse Oximeter Pulse Oximetry (%) 95 Oxygen Delivery Method Room Air Intake Visit Reasons: AUTO HIKER est care(mental health issues) - see comments Intake Note: Pt is here as a New Patient to est care Allergies olanzapine [From ZYPREXA] Adverse Reaction (Intermediate, Verified 03/19/24 10:52) RLS symptoms clonidine Adverse Reaction (Verified 03/19/24 10:52) RLS diphenhydramine [From Benadryl] Adverse Reaction (Verified 03/19/24 10:52) RLS hydroxyzine Adverse Reaction (Verified 03/19/24 10:52) RLS melatonin Adverse Reaction (Verified 03/19/24 10:52) RLS atypical antipsychotics Adverse Reaction (Severe, Uncoded 03/19/24 10:52) This class appears to potentiate RLS/Akathesia Medication List - Last Reconciled 03/19/24 by Tonya Sarmiento MD albuterol sulfate 90 mcg/actuation (Ventolin HFA) 2 puffs inhalation Q4-6H PRN 30 days [id number] 1,000mcg-680mcg DFE-1.5 mg 1 tab PO DAILY cholecalciferol (vitamin D3) (Vitamin D3) 100 mcg (2 x 50 mcg (2,000 unit)) PO DAILY choline bitartrate ER 300 mg PO .QD 30 days clonazepam 0.5 mg PO BEDTIME PRN guanfacine ER 1 mg PO QAM AND QHS levothyroxine 50 mcg PO DAILY@0600 modafinil 50 - 100 mg (0.5 - 1 x 100 mg) PO QAM multivitamin (Daily-Oswaldo tablet) 1 tab PO DAILY pantoprazole (Protonix) 40 mg PO DAILY pramipexole 0.5 mg PO TID 15 days pregabalin 150 mg PO BID 15 days pregabalin 200 mg PO BEDTIME 14 days thiamine mononitrate (vit B1) 100 mg PO DAILY Tobacco use date assessed: 03/19/24 Dental Screening Dental Screen Date: 03/19/24 Did you have a dental visit in the last 12 months?: Yes Did you have a dental problem in the last 6 months where you did not have access to dental care?: Yes Was dental information given to patient?: Patient has dentist HPI AUTO HIKER est care(mental health issues) - see comments HPI Details 63-year-old lady with history of hypothy roid, RLS, Biplolar disorder, type 2 diabetes mellitus currently managed with diet, COPD, hyperlipidemia,, fibromyalgia, cannabis use disorder, benzadiazepine abuse, history of cocaine use disorder, osteoporosis, here today to establish care with a new PCP. She is currently being followed by a psychiatrist at [facility] . She is here today complaining of numerous skin lesions, mostly on her back, and would like a referral to see a label rewinder for screening for skin cancer. She is also overdue on her breast cancer screening and bone density scan, and would like both scheduled. [facility], [facility] Medical History (Updated 03/19/24 @ 11:20 by Tonya Sarmiento MD) Osteopenia of multiple sites Skin lesion of back Polysubstance use disorder Syncope Bipolar disorder Type II diabetes mellitus Smoker Fibromyalgia Cannabis use disorder, moderate, dependence Benzodiazepine abuse Osteoporosis Hypothyroidism RLS (restless legs syndrome) COPD (chronic obstructive pulmonary disease) HLD (hyperlipidemia) Surgical History (Updated 03/22/24 @ 00:04 by Tonya Sarmiento MD) History of cataract surgery H/O: hysterectomy Family History (Updated 03/19/24 @ 10:58 by Tonya Sarmiento MD) Mother CAD (coronary artery disease) Father Alcoholism Son Substance use disorder Son Substance use disorder Social History Household Members: Spouse Household Members Other:: son's girlfriend Housing: House Do you presently have visiting nurse or other home services: No Unable to assess alcohol history related to: Unknown Alcohol intake: never Comment: Pt reports falling d/t excessive intake of Benzo's prior to admission Patient Tobacco Use Status: Current everyday Tobacco user Tobacco use type: Cigarette Cigarette Packs Per Day: 1 Cigarettes Per Day: 20.0 Years Smoked: 45 e-Cigarette/Vaping Use: Never Used Second Hand Smoke Exposure: No Substance Use Type: Marijuana service: No Current occupational status: unemployed Sexual orientation: Straight/Heterosexual Cognitive needs: No Hearing needs: No Vision needs: No Questionnaire PHQ-9 Over the last 2 weeks, how often have you been bothered by any of the following problems? 1. Little interest or pleasure in doing things: several days 2. Feeling down, depressed, or hopeless: several days 3. Trouble falling or staying asleep, or sleeping too much: not at all 4. Feeling tired or having little energy: not at all 5. Poor appetite or overeating: several days 6. Feeling bad about yourself - or that you are a failure or have let yourself or your family down: not at all 7. Trouble concentrating on things, such as reading the newspaper or watching television: not at all 8. Moving or speaking so slowly that other people could have noticed. Or the opposite - being so fidgety or restless that you have been moving around a lot more than usual: not at all 9. Thoughts that you would be better off or of hurting yourself in some way: not at all Total score: 3 Depression Screening Interpretation: Negative (Currently followed by psychiatry and sees therapist at [facility]) Depression Screening Done: Yes 44422 - PHQ-9 Billing: Yes Source: Developed by Drs. Darion Garcia, Wilma Slater, Vernon Mayorga and colleagues, with an educational eloy from [employer]. Thrive Questionnaire Date Thrive assessed: 03/19/24 I am a: Patient What is your living situation today?: I have a steady place to live Within the past 12 months, did the food you bought not last and you didn't have the money to get more?: Never true Within the past 12 months, did you worry whether your food would run out before you got money to buy more?: Never true Do you have trouble paying for medicines?: No Do you have trouble getting transportation to medical appointments?: No Do you have trouble paying your heating and electricity bill?: No Do you have trouble taking care of your child, family member or friend?: No Do you have trouble with day-to-day activities such as bathing, preparing meals, shopping, managing finances, etc.?: No Are you currently unemployed and looking for a job?: No Are you interested in more education?: No THRIVE Score: 0 AUDIT C Alcohol Use Questionnaire (AUDIT-C) 1. How often do you have a drink containing alcohol?: Never Total Score: 0 MARY-7 AMB Questionnaire MARY-7 Date MARY - 7 assessed: 03/19/24 Feeling nervous, anxious, or on edge: 1 = Several days Not being able to stop or control worryin = Several days Worrying too much about different things: 1 = Several days Trouble relaxin = Not at all Being so restless that it is hard to sit still: 0 = Not at all Becoming easily annoyed or irritable: 1 = Several days Feeling afraid as if something awful might happen: 1 = Several days Total MARY-7 score (0-4 normal; 5-9 mild; 10-14 moderate; 15-21 severe): 5 Source: Developed by Drs. Darion Garcia, Wilma Slater, Vernon Mayorga and colleagues, with an educational eloy from [employer]. MARY-7 Assessment Billing MARY-7 Assessment Tool: MARY-7 Assessment 36656 Review of Systems Const Denies fatigue, Denies fever(s) and Denies headache(s) Eyes Details: had cataract surgery OU done at [facility] in [place] in 2019 Denies change in vision, Denies eye discharge and Denies itchy eyes ENT Denies dizziness, Denies headache(s), Denies nasal congestion, Denies nasal discharge and Denies sore throat Card Denies chest pain, Denies lightheadedness, Denies palpitations and Denies dyspnea Resp Denies chest congestion, Denies cough, Denies dyspnea and Denies wheezing GI Denies abdominal pain, Denies change in bowel habits and Denies heartburn Denies hematuria, Denies urinary frequency, Denies dysuria and Denies urinary urgency Musc Reports no additional complaints Skin/Breast Denies breast pain and Denies breast mass Neuro Denies dizziness and Denies headache(s) Psych Reports as per HPI Endo Denies fatigue, Denies polydipsia, Denies polyuria and Denies palpitations Anthony/Lymph Denies easy bruising Aller/Immun Denies itchy eyes, Denies seasonal rhinorrhea and Denies wheezing Physical exam (Primary Care) Vital Signs: Last Vital Signs Pulse 81 03/19/24 10:19 BP 92/52 L 03/19/24 10:19 Pulse Ox 95 03/19/24 10:19 Oxygen Delivery Method Room Air 03/19/24 10:19 BMI result Body Mass Index 17.6 Tobacco/Smoking Status: Tobacco use Status Tobacco use date assessed 03/19/24 03/19/24 10:22 Patient Tobacco Use Status Current everyday Tobacco 03/19/24 10:22 Tobacco use type Cigarette 03/19/24 10:22 e-Cigarette/Vaping Use Never Used 03/19/24 10:22 PHQ-9: PHQ-9 Score PHQ-9: Total score 3 03/19/24 11:17 Depression Screening Interpretation: Negative (Currently followed by psychiatry and sees therapist at [facility]) Thrive Assessment: Date of Thrive Assessment Date Thrive assessed 03/19/24 03/19/24 10:36 Const General: comfortable, no acute distress and alert Orientation/consciousness: patient oriented x3 HENMT Ears: external ears normal, TM's normal bilaterally and EAC's normal General nose exam: Normal external nose present and No nasal discharge present Mouth: Normal oral and palatal mucosa present, oropharynx normal and moist mucous membranes Eyes General: appearance normal, both eyes and all related structures Conjunctivae: conjunctivae normal Sclerae: sclerae normal Pupils: Equal, round and reactive pupils present EOM: EOMs intact bilaterally Neck Neck: Yes full ROM, Yes no lymphadenopathy and Yes supple Chest Breast/axilla palpation: normal palpation of the breasts Resp Effort & Inspection: normal respiratory effort and able to speak in complete sentences Auscultation: clear to auscultation bilaterally Cardio Rate: regular rate Rhythm: regular rhythm Heart sounds: S1 normal heart sound present and S2 normal heart sound present GI Palpation (GI): Soft to palpation, nontender and no masses Auscultation: normal bowel sounds Skin Other: Hyperpigmented macular lesions scattered on back, some with irregular borders Neuro General: patient oriented x3, gait normal, tone normal, moves all extremities, Normal light touch and pain sensation and no focal motor deficits Cranial nerves: Yes CN's II-XII intact bilaterally and Yes Equal, round and reactive pupils present Cognition (Neuro): normal cognition Extrem General: Yes full ROM, Yes no joint enlargement, Yes no clubbing, cyanosis or edema and Yes no calf tenderness Psych Appearance: grossly normal and well kempt Mental Status: mental status grossly normal Speech and movement: Normal speech and movement present Affect: normal affect Attitude: cooperative Thought process: Normal thought process present Thought content: Normal thought content present Assessment and Plan Assessment & Plan (1) Osteopenia of multiple sites: Code(s): M85.89 - Other specified disorders of bone density and structure, multiple sites Plan: Bone density scan ordered, continue taking vitamin-D 3 supplements and calcium from adequate dietary sources, recommended doing regular weight-bearing exercise. (2) Skin lesion of back: Code(s): L98.9 - Disorder of the skin and subcutaneous tissue, unspecified Plan: Referred to [facility] for evaluation of skin lesion on back and for routine screening for skin cancer. Orders: Orders MM tomosynthesis screening BI 03/19/24 E89.40 - Asymptomatic postprocedural ovarian failure, M85.89 - Other specified disorders of bone density and structure, multiple sites, Z12.31 - Encounter for screening mammogram for malignant neoplasm of breast XR DEXA axial skeleton 03/19/24 E89.40 - Asymptomatic postprocedural ovarian failure, M85.89 - Other specified disorders of bone density and structure, multiple sites, Z12.31 - Encounter for screening mammogram for malignant neoplasm of breast Referrals Dermatology Referral L98.9 - Disorder of the skin and subcutaneous tissue, unspecified, Z12.83 - Encounter for screening for malignant neoplasm of skin Coding Level of Care Code New Pt Level 4 (81265) Diagnoses Osteopenia of multiple sites M85.89 Skin lesion of back L98.9 Additional Codes MARY-7 Assessment Billing - MARY-7 Assessment Tool: MARY-7 Assessment 28913 ([id number])
== END 2024-03-19 12:53 | disposition home or self-care (01) ==
PROVIDERS: Visit Provider Internal Medicine
DX: M85.89 Other specified disorders of bone density and structure, multiple sites (principal); L98.9 Disorder of the skin and subcutaneous tissue, unspecified
CPT/HCPCS: 99214

== ENCOUNTER 2024-03-26 12:49 | Inpatient (IN) | payer OTHER, SELFPAY ==
--- NOTE | 2024-03-26 13:11 | ED.PSYCH ---
HPI - Psych General Chief Complaint: Psychiatric Symptoms Stated Complaint: SEC 12 BY [facility] PER EMS Time Seen by Provider: 03/26/24 12:59 Source: patient Mode of arrival: EMS Limitations: no limitations History of Present Illness ED Provider: Dr. 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 According to EMS, the patient was acting bizarrely at home and demonstrating disruptive behaviors. The patient has been off her bipolar medications for at least 3 days. floorworker distributor all states that the patient has lost 25 lb over the last 3 months and the patient did state that she has lost her appetite. Patient did told me that she was having problems with her mental health. She states that she is ?sick of trying . She states that her mental health issues has been getting in the way of her relationship with her and she got very upset with her today. The patient denies being suicidal but she feels hopeless and wants to give up. Patient was recently hospitalized on our psychiatric service and discharged on 03/16/2024 for decompensation and for bipolar disorder. Related Data Home Medications ?Medication ?Instructions ?Recorded ?Confirmed pregabalin 150 mg capsule 150 mg PO TID in AM and afternoon 03/26/24 03/26/24 Previous Rx's ?Medication ?Instructions ?Recorded albuterol sulfate 90 mcg/actuation 2 puff inhalation Q4-6H PRN 12/14/23 aerosol inhaler (Ventolin HFA) wheezing 30 days #1 inhaler pramipexole 0.5 mg tablet 0.5 mg PO TID 15 days #45 tabs 03/09/24 guanfacine 1 mg tablet,extended 1 mg PO QAM AND QHS #60 tabs 03/13/24 release 24 hr modafinil 100 mg tablet 50 - 100 mg (0.5 - 1 x 100 mg) PO 03/13/24 QAM as directed #20 tabs clonazepam 0.5 mg tablet 0.5 mg PO BEDTIME PRN for sleep 03/16/24 #14 tabs pregabalin 100 mg capsule 100 mg PO BEDTIME #15 caps 03/22/24 Allergies Allergy/AdvReac Type Severity Reaction Status Date / Time olanzapine [From ZYPREXA] AdvReac Intermediate RLS Verified 03/26/24 13:18 symptoms clonidine AdvReac RLS Verified 03/26/24 13:18 diphenhydramine AdvReac RLS Verified 03/26/24 13:18 [From Benadryl] hydroxyzine AdvReac RLS Verified 03/26/24 13:18 melatonin AdvReac RLS Verified 03/26/24 13:18 atypical antipsychotics AdvReac Severe This class Uncoded 03/19/24 10:52 appears to potentiate RLS/Akathesia Review of Systems Review of Systems: Yes all other systems are reviewed and are negative [facility] Past Medical History [facility] Narrative: Social history: She lives with her . She smokes 1 pack of cigarettes per day times many years. She denies alcohol use. She uses a THC vape pen at night. Medical History (Updated 03/26/24 @ 19:16 by Gopi Santacruz RN) Osteopenia of multiple sites Skin lesion of back Polysubstance use disorder Syncope Bipolar disorder Type II diabetes mellitus Smoker Fibromyalgia Cannabis use disorder, moderate, dependence Benzodiazepine abuse Osteoporosis Hypothyroidism RLS (restless legs syndrome) COPD (chronic obstructive pulmonary disease) HLD (hyperlipidemia) Surgical History (Updated 03/22/24 @ 00:04 by Tonya Sarmiento MD) History of cataract surgery H/O: hysterectomy Family History Family History (Updated 03/19/24 @ 10:58 by Tonya Sarmiento MD) Mother CAD (coronary artery disease) Father Alcoholism Son Substance use disorder Son Substance use disorder Social History Social History Household Members: Unknown / Unable to assess Household Members Other:: son's girlfriend Housing: Unknown / Unable to assess Do you presently have visiting nurse or other home services: No Unable to assess alcohol history related to: Unknown Alcohol intake: never Comment: Pt reports falling d/t excessive intake of Benzo's prior to admission Patient Tobacco Use Status: Former Tobacco user Tobacco use type: Cigarette Cigarette Packs Per Day: 1 Cigarettes Per Day: 20.0 Years Smoked: 45 Smoked in Last 30 Days: Yes e-Cigarette/Vaping Use: Never Used Second Hand Smoke Exposure: No Use of substances other than those prescribed or required for medical reasons: Yes Substance Use Type: Marijuana Last Used Substance Other:: unable to complete substance use assessment, pt declined to participate Currently Displaying Signs/Symptoms of Drug Intoxication Withdrawal: No Spiritual Healthcare Practices: pt declined to participate [facility] Practices: pt declined to participate Cultural Healthcare Practices: pt declined to participate Advance Directives: No Advance Directives Information Provided: No Do you have thoughts of harming others: None Do you have a plan to hurt others: No Plan Recently lost weight without trying: Yes How much weight loss: 24-33 pounds Eating poorly because of decreased appetite: Yes Nutrition screen score: 6 Nutrition Risks: No Nutritional Risk Patient : No : No Poor oral hygiene: Yes service: No Current occupational status: unemployed Sexual orientation: Straight/Heterosexual Cognitive needs: No Hearing needs: No Vision needs: No Physical Exam Vital Signs: Vital Signs: Last Vital Signs Temp 97.7 F 03/29/24 19:20 Pulse 52 03/29/24 19:20 Resp 16 03/29/24 19:20 BP 117/55 L 03/29/24 19:20 Pulse Ox 96 03/29/24 19:20 O2 Del Method Room Air 03/29/24 19:20 BMI result Body Mass Index 18.6 Vital signs revealed blood pressure of 78/46 but she was asymptomatic Exam: General: Awake, anxious, tearful, answers questions appropriately Head: Normocephalic, atraumatic EENT: PERRL, Lids normal, sclera normal, conjunctiva normal, nose normal , ears normal, throat without erythema or exudates, left facial droop involving the lower lip only-patient states this is chronic secondary to Estrada's palsy Neck: Supple, no adenopathy Lung: breath sounds symmetric, no wheezing, rales or rhonchi Chest: symmetric movement, nontender Heart: regular rate and rhythm, normal S1, S2 no murmurs or rubs Abdomen: soft, non-tender, nondistended, normal bowel sounds Back: no vertebral tenderness, no CVAT Extremities: no deformities, moves all extremities symmetrically Neuro: Awake, alert, oriented, normal speech, cranial nerves intact, moves all extremities symmetrically Psych: Anxious, tearful Medications Administered Generic Name Dose Route Start Last Admin Trade Name Freq PRN Reason Stop Dose Admin Albuterol Sulfate 2 puff 03/26/24 18:04 03/27/24 09:13 Albuterol Sulfate 90 Mcg 8 Gm Inhaler INHALE 2 puff Q4H PRN Administration wheezing Clonazepam 0.5 mg 03/26/24 18:04 03/29/24 22:13 Clonazepam 0.5 Mg Tablet PO 0.5 mg BEDTIME PRN Administration for sleep Clonazepam 0.5 mg 03/28/24 12:41 03/29/24 14:09 Clonazepam 0.5 Mg Tablet PO 0.5 mg DAILY PRN Administration severe anxiety Cyanocobalamin 1,000 mcg 03/29/24 13:15 03/29/24 14:04 Cyanocobalamin (Vitamin B-12) 1,000 Mcg Tablet PO 1,000 mcg DAILY LORI Administration Folic Acid 1 mg 03/29/24 16:30 03/29/24 18:38 Folic Acid 1 Mg Tablet PO Not Given DAILY LORI Guanfacine HCl 1 mg 03/28/24 15:00 03/29/24 22:13 Guanfacine Hcl Er 1 Mg Tab.Er.24h PO 1 mg TID LORI Administration Hydrocortisone 1 appl 03/28/24 10:40 03/29/24 12:25 Hydrocortisone 1 % Ointment 28.35 Gm Tube TOPICAL 1 appl BID LORI Administration Protocol Levothyroxine Sodium 50 mcg 03/28/24 10:35 03/29/24 05:56 Levothyroxine Sodium 50 Mcg Tablet PO 50 mcg DAILY@0600 LORI Administration Modafinil 100 mg 03/28/24 09:00 03/29/24 08:48 Modafinil 100 Mg Tablet PO 100 mg DAILY LORI Administration Pramipexole Dihydrochloride 0.5 mg 03/26/24 21:00 03/29/24 22:12 Pramipexole Di-Hcl 0.25 Mg Tablet PO 0.5 mg TID LORI Administration Pregabalin 200 mg 03/27/24 15:00 03/29/24 22:12 Pregabalin 200 Mg Capsule PO 200 mg TID LORI Administration Pyridoxine HCl 25 mg 03/29/24 13:05 03/29/24 14:04 Pyridoxine Hcl (Vitamin B6) 50 Mg Tablet PO 25 mg DAILY LORI Administration Vitamin D 100 mcg 03/29/24 13:05 03/29/24 14:04 Cholecalciferol (Vitamin D3) 25 Mcg Tablet PO 100 mcg DAILY LORI Administration Discontinued Medications Generic Name Dose Route Start Last Admin Trade Name Rick PRN Reason Stop Dose Admin Clonazepam 0.5 mg 03/27/24 13:19 03/27/24 14:02 Clonazepam 0.5 Mg Tablet PO 03/27/24 13:20 0.5 mg ONCE ONE Administration Guanfacine HCl 1 mg 03/26/24 21:00 03/28/24 08:36 Guanfacine Hcl Er 1 Mg Tab.Er.24h PO 1 mg BID LORI Administration Lorazepam 1 mg 03/26/24 13:11 03/26/24 13:40 Lorazepam 1 Mg Tablet PO 03/26/24 13:12 1 mg ONCE STA Administration Modafinil 50 mg 03/27/24 09:00 03/27/24 08:44 Modafinil 100 Mg Tablet PO 50 mg DAILY LORI Administration Pregabalin 100 mg 03/26/24 21:00 03/26/24 22:30 Pregabalin 100 Mg Capsule PO 100 mg BEDTIME LORI Administration Pregabalin 150 mg 03/26/24 21:00 03/27/24 08:43 Pregabalin 150 Mg Capsule PO 150 mg TID LORI Administration Medical Decision Making Medical Decision Making MDM Narrative: 63 year old female with history of developmental delays, learning disabilities, ADHD, Bipolar disorder, COPD, DM, RLS, chronic pain and restlessness who was placed on a Section 12 by her social services coordinator for bizarre, disruptive behavior, noncompliance with her psychiatric medications x3 days, 25 lb weight loss over several months. Physical examination did reveal chronic left lower lip facial droop secondary to Estrada's palsy, patient was anxious tearful and upset otherwise exam is unremarkable. Differential diagnosis: ?Includes but is not limited to depression, anxiety, noncompliance with medications, anemia, electrolyte abnormalities, thyroid disease Following evaluation was ordered: CBC, CMP, drug screen urine, COVID-19, influenza, RSV, urinalysis, ethanol level, TSH with reflex T4, EKG Patient was initially treated with the following: Ativan 2 mg orally Course: 16:31 Start physician observation My interpretation patient's laboratory evaluation is as follows: CBC was normal. CMP was normal. TSH is elevated by 0.72 with free T4 pending-patient does have a history of hypothyroidism and takes levothyroxine. She may not be compliant with his medication. Urinalysis was negative. Drug screen urine was positive for marijuana. Alcohol was below detectable limits. COVID-19, influenza and RSV were negative. The patient is medically cleared for care team evaluation I did order this consult. At the end of my shift, the patient's care was turned over to my colleague, Dr. Lisa Denise. Admission/Observation Consideration of admission/observation: Escalation of care including admission/observation considered Lab Data MDM Lab Attestation statement: I reviewed the patient's lab results. 03/26/24 14:37 03/27/24 08:40 Labs: Lab Results 03/26/24 03/26/24 03/26/24 Range/Units 13:29 13:41 14:37 WBC 6.6 (4.8-10.8) X10*3/uL RBC 4.18 L (4.20-5.50) X10*6/uL Hgb 13.6 (12.0-16.0) g/dl Hct 40.1 (37.0-47.0) % MCV 95.9 (80.0-98.0) fL MCH 32.5 (27.0-33.0) pg MCHC 33.9 (31.0-35.0) g/dl RDW 12.7 (11.0-16.0) % Plt Count 336 (160-400) X10*3/uL MPV 10.1 (9.4-12.3) fL Immature Gran % (Auto) 0.2 (0.0-0.4) % Neut % (Auto) 69.2 (45-73) % Lymph % (Auto) 23.1 (20-40) % Wilkes % (Auto) 6.2 (2-11) % Eos % (Auto) 0.8 (0-4) % Baso % (Auto) 0.5 (0-2) % Lymph # (Auto) 1.5 (1.2-4.9) X10*3/uL Wilkes # (Auto) 0.4 (0.1-1.2) X10*3/uL Eos # (Auto) 0.1 (0.0-0.4) X10*3/uL Baso # (Auto) 0.0 (0.0-0.2) X10*3/uL Abs Immat Gran (auto) 0.01 (0.00-0.03) X10*3/uL Absolute Neuts (auto) 4.6 (2.0-8.3) x10*3/uL Absolute Nucleated RBC 0.000 (0.0-0.012) X10*3/uL Nucleated RBC % (auto) 0.0 (0.0-0.2) /100WBC Sodium 140 (135-145) mmol/L Potassium 4.1 (3.3-5.1) mmol/L Chloride 105 (96-108) mmol/L Carbon Dioxide 27 (22-29) mmol/L Anion Gap 12 (12-20) BUN 10 (9-16) mg/dL Creatinine 0.72 (0.5-1.4) mg/dL Estim Creat Clear Calc 59.8 Estimated GFR > 60 POC Glucose 115 (60-115) mg/dL Random Glucose 112 (60-115) mg/dL Calcium 9.1 (8.4-10.2) mg/dL Total Bilirubin 0.3 (0.0-1.0) mg/dL AST 15 (5-31) U/L ALT 12 (0-31) U/L Alkaline Phosphatase 85 (39-117) U/L Total Protein 6.1 L (6.5-8.0) g/dL Albumin 3.7 (3.5-5.0) g/dL TSH 5.72 H (0.32-4.0) uIU/mL Free T4 0.80 (0.71-1.85) ng/dL Urine Color Urine Appearance Urine pH (5.0-9.0) Ur Specific Carmichael (1.005-1.025) Urine Protein (Neg-Trace) mg/dL Urine Glucose (UA) (Negative) mg/dL Urine Ketones (Negative) mg/dL Urine Blood (Negative) Urine Nitrite (Negative) Ur Leukocyte Esterase (Negative) Urine Opiates Screen (Not Detect) Ur Buprenorphine Scrn (Not Detect) ng/mL Ur Oxycodone Screen (Not Detect) ng/mL Urine Methadone Screen (Not Detect) ng/mL Urine Fentanyl Screen (Not Detect) Ur Barbiturates Screen (Not Detect) Ur Phencyclidine Scrn (Not Detect) Ur Amphetamines Screen (Not Detect) U Benzodiazepines Scrn (Not Detect) Urine Cocaine Screen (Not Detect) U Marijuana (THC) Screen (Not Detect) Ethyl Alcohol < 10 mg/dL Influenza Type A (PCR) NEGATIVE (Negative) Influenza Type B (PCR) NEGATIVE (Negative) RSV RNA Qual (PCR) NEGATIVE (Negative) SARS-CoV-2 RNA (RT-PCR) NEGATIVE (Negative) 03/26/24 03/26/24 Range/Units 14:51 14:52 WBC (4.8-10.8) X10*3/uL RBC (4.20-5.50) X10*6/uL Hgb (12.0-16.0) g/dl Hct (37.0-47.0) % MCV (80.0-98.0) fL MCH (27.0-33.0) pg MCHC (31.0-35.0) g/dl RDW (11.0-16.0) % Plt Count (160-400) X10*3/uL MPV (9.4-12.3) fL Immature Gran % (Auto) (0.0-0.4) % Neut % (Auto) (45-73) % Lymph % (Auto) (20-40) % Wilkes % (Auto) (2-11) % Eos % (Auto) (0-4) % Baso % (Auto) (0-2) % Lymph # (Auto) (1.2-4.9) X10*3/uL Wilkes # (Auto) (0.1-1.2) X10*3/uL Eos # (Auto) (0.0-0.4) X10*3/uL Baso # (Auto) (0.0-0.2) X10*3/uL Abs Immat Gran (auto) (0.00-0.03) X10*3/uL Absolute Neuts (auto) (2.0-8.3) x10*3/uL Absolute Nucleated RBC (0.0-0.012) X10*3/uL Nucleated RBC % (auto) (0.0-0.2) /100WBC Sodium (135-145) mmol/L Potassium (3.3-5.1) mmol/L Chloride (96-108) mmol/L Carbon Dioxide (22-29) mmol/L Anion Gap (12-20) BUN (9-16) mg/dL Creatinine (0.5-1.4) mg/dL Estim Creat Clear Calc Estimated GFR POC Glucose (60-115) mg/dL Random Glucose (60-115) mg/dL Calcium (8.4-10.2) mg/dL Total Bilirubin (0.0-1.0) mg/dL AST (5-31) U/L ALT (0-31) U/L Alkaline Phosphatase (39-117) U/L Total Protein (6.5-8.0) g/dL Albumin (3.5-5.0) g/dL TSH (0.32-4.0) uIU/mL Free T4 (0.71-1.85) ng/dL Urine Color Yellow Urine Appearance Clear Urine pH 7.0 (5.0-9.0) Ur Specific Carmichael 1.015 (1.005-1.025) Urine Protein Negative (Neg-Trace) mg/dL Urine Glucose (UA) Negative (Negative) mg/dL Urine Ketones Trace (Negative) mg/dL Urine Blood Negative (Negative) Urine Nitrite Negative (Negative) Ur Leukocyte Esterase Negative (Negative) Urine Opiates Screen Not Detected (Not Detect) Ur Buprenorphine Scrn Not Detected (Not Detect) ng/mL Ur Oxycodone Screen Not Detected (Not Detect) ng/mL Urine Methadone Screen Not Detected (Not Detect) ng/mL Urine Fentanyl Screen Not Detected (Not Detect) Ur Barbiturates Screen Not Detected (Not Detect) Ur Phencyclidine Scrn Not Detected (Not Detect) Ur Amphetamines Screen Not Detected (Not Detect) U Benzodiazepines Scrn Not Detected (Not Detect) Urine Cocaine Screen Not Detected (Not Detect) U Marijuana (THC) Screen POSITIVE H (Not Detect) Ethyl Alcohol mg/dL Influenza Type A (PCR) (Negative) Influenza Type B (PCR) (Negative) RSV RNA Qual (PCR) (Negative) SARS-CoV-2 RNA (RT-PCR) (Negative) Independent Interpretation I performed an independent interpretation of an: EKG Interpretation: My interpretation patient's 12 EKG done at 16:20 hours is as follows: Normal sinus rhythm with a rate of 69, normal MA interval, QRS duration QTC interval, no ST segment elevation, no ST segment depression, no significant T-wave abnormalities, no PACs, no PVCs External Record Review External record reviewed: Inpatient record Chronic Conditions Patient?s care impacted by: Other (Bipolar disorder) Discharge Plan Discharge Clinical Impression: MDD (major depressive disorder), recurrent episode Patient Disposition: Admitted As Inpatient Interventions: Admission Worksheet (ED) Last Done: 03/26/24 19:15 Discharge Date/Time: 03/26/24 19:16
[2024-03-26 13:17] VITALS: BP 104/79; BP 116/77; PULSE 72; PULSE 89; RESP 16; TEMP 36.4; O2SAT 94; BMI 18.6
[2024-03-26 13:33] LABS: Glucose, Whole Blood 115 mg/dL (60-115)
[2024-03-26] MEDS: LORazepam 1 MG TABLET PO (13:40)
[2024-03-26 14:29] LABS: Influenza A PCR NEGATIVE (Negative); Influenza B PCR NEGATIVE (Negative); Resp Syncy Virus RNA Qual PCR NEGATIVE (Negative); SARS COV2 PCR INHOUSE NEGATIVE (Negative)
[2024-03-26 14:41] VITALS: BP 78/46; PULSE 81; RESP 18; TEMP 36.6; O2SAT 94
[2024-03-26 14:41] LABS: MANUAL DIFF FLAG NO
--- NOTE | 2024-03-26 14:41 | PC.NURSE ---
resting quietly. less emotional since recieveing ativan. awaits crisis consult.
[2024-03-26 14:42] LABS: Basophils Percent Auto 0.5 % (0-2); Eosinophils Absolute Auto 0.1 X10*3/uL (0.0-0.4); Eosinophils Percent Auto 0.8 % (0-4); Hematocrit 40.1 % (37.0-47.0); Hemoglobin 13.6 g/dl (12.0-16.0); Imm Gran Abs Auto 0.01 X10*3/uL (0.00-0.03); Imm Gran Pct Auto 0.2 % (0.0-0.4); Lymphocytes Absolute Auto 1.5 X10*3/uL (1.2-4.9); Lymphocytes Percent Auto 23.1 % (20-40); Mean Corpuscular HGB Conc 33.9 g/dl (31.0-35.0); Mean Corpuscular Hemoglobin 32.5 pg (27.0-33.0); Mean Corpuscular Volume 95.9 fL (80.0-98.0); Mean Platelet Volume 10.1 fL (9.4-12.3); Monocytes Absolute Auto 0.4 X10*3/uL (0.1-1.2); Monocytes Percent Auto 6.2 % (2-11); Neutrophils Absolute Auto 4.6 x10*3/uL (2.0-8.3); Neutrophils Percent Auto 69.2 % (45-73); Platelet Count 336 X10*3/uL (160-400); Red Blood Count 4.18 X10*6/uL (4.20-5.50); Red Cell Distribution Width 12.7 % (11.0-16.0); White Blood Count 6.6 X10*3/uL (4.8-10.8)
--- NOTE | 2024-03-26 14:53 | ECG_ITS ---
Test Reason : CHECK QTC Blood Pressure : / mmHG Vent. Rate : 069 BPM Atrial Rate : 069 BPM P-R Int : 122 ms QRS Dur : 100 ms QT Int : 410 ms P-R-T Axes : 066 078 039 degrees QTc Int : 439 ms Normal sinus rhythm with sinus arrhythmia Minimal voltage criteria for LVH, may be normal variant ( Merlin product ) Borderline ECG When compared with ECG of 05-DEC-2023 21:59, No significant change was found Referred By: Chester Olivo Electronically Signed By:JEANNINE ORELLANA
[2024-03-26 14:57] LABS: Alanine Aminotransferase 12 U/L (0-31); Albumin Level 3.7 g/dL (3.5-5.0); Alkaline Phosphatase 85 U/L (39-117); Anion Gap 12 (12-20); Aspartate Amino Transferase 15 U/L (5-31); Bilirubin Total 0.3 mg/dL (0.0-1.0); Blood Urea Nitrogen 10 mg/dL (9-16); Calcium 9.1 mg/dL (8.4-10.2); Carbon Dioxide 27 mmol/L (22-29); Chloride 105 mmol/L (96-108); Creatinine Clr Calc Pharmacy 59.8; Estimated Glomerular Filt Rate > 60; Ethanol < 10 mg/dL; Glucose Random 112 mg/dL (60-115); Potassium 4.1 mmol/L (3.3-5.1); Sodium 140 mmol/L (135-145); Total Protein 6.1 g/dL (6.5-8.0)
[2024-03-26 14:57] LABS: Appearance Urine Clear; Color Urine Yellow; Glucose Urine UA Negative (Negative); Leukocyte Esterase Urine Negative (Negative); Nitrite Urine Negative (Negative); Specific Gravity - Urine 1.015 (1.005-1.025); Urine Blood Negative (Negative); Urine Ketones Trace mg/dL (Negative); Urine Protein Negative (Neg-Trace)
[2024-03-26 15:08] LABS: Amphetamine Screen Urine Not Detected (Not Detect); Barbiturates, Urine Not Detected (Not Detect); Benzodiazepines Screen Urine Not Detected (Not Detect); Buprenorphine Scr Not Detected (Not Detect); Cannabinoid Screen Urine POSITIVE (Not Detect); Cocaine Screen Urine Not Detected (Not Detect); Fentanyl, urine Not Detected (Not Detect); Methadone Screen, Urine Not Detected (Not Detect); Opiate Screen Urine Not Detected (Not Detect); Oxycodone Screen Urine Not Detected (Not Detect); Phencyclidine Screen Urine Not Detected (Not Detect)
[2024-03-26 15:17] LABS: TSH reflex Free T4 5.72 uIU/mL (0.32-4.0)
[2024-03-26 16:46] VITALS: BP 106/57; PULSE 60; RESP 18
--- NOTE | 2024-03-26 17:49 | PC.NURSE ---
Patient appears to be sleeping at this time, respirations even and unlabored, no apparent distress noted did stop by to see patient but patient was sleeping, stated he will return tomorrow
[2024-03-26 19:33] VITALS: BP 148/79; PULSE 72; RESP 20; TEMP 36.6; O2SAT 93
--- NOTE | 2024-03-26 19:34 | PC.ADMIT ---
Addendum entered by Darion Herring RN 03/26/24 19:38: Pts weight was 95.2, pt reports a 20lb weight loss over the past 2 months. Original Note: Pt brought up to the unit for admission at 1918. Pts BP 148/79, P72 T 97.8. Pt skin check completed, skin intact, small scratch on left darden. Pt was tearful and tremulous wanting to go to a different unit. Pt was cooperative with VS and skin check.
[2024-03-26 19:37] VITALS: BMI 17.4
--- NOTE | 2024-03-26 21:35 | MHC.CARE ---
This senior copywriter contacted [facility] to inquire about insurance authorization. [facility] initially stated that they were working on the authorization. [facility] called the Care Team back and indicated that they were unable to do the authorization due to not knowing the tax ID and NPI for [facility] and stated that the hospital had to obtain authorization. This senior copywriter contacted [facility] who stated that the assessing clinician needed to obtain authorization at which time [facility] was contacted again and provided the NPI, Tax ID, and name of accepting physician and informed that authorization must be completed by the assessing clinician. The natural gas field processing supervisor of [facility] indicated that the assessing clinician was no longer working and they would work on the authorization and provide information when obtained.
--- NOTE | 2024-03-26 21:45 | MHC.CARE ---
[facility] contacted the care team again and inquired the name of the UR and phone number as well as the accepting physician. Information was provided and passed to [facility] at this time.
--- NOTE | 2024-03-26 22:06 | MHC.CARE ---
[facility] stated that the pt was authorized for 2 days, today and tomorrow. Auth # [id number]. They did not provide a person to call back. The person t/w spoke to at [facility] was Geronimo.
[2024-03-26] MEDS: Pregabalin 100 MG CAPSULE PO (22:30)
[2024-03-26] MEDS: Pramipexole Di-HCL 0.25 MG TABLET 0.5 MG PO (22:31)
[2024-03-26] MEDS: guanFACINE HCl ER 1 MG TAB.ER.24H PO (22:31)
[2024-03-26] MEDS: clonazePAM 0.5 MG TABLET PO (22:31)
[2024-03-26] MEDS: Pregabalin 150 MG CAPSULE PO (22:31)
--- NOTE | 2024-03-27 05:56 | PC.ADMIT ---
Pt was admitted to the unit from the pod after being assessed by [facility] and deemed IPLOC. Arrived on unit at 1918. Legal status: CV. Per ED documentation, pt was sectioned to the ED by a SHIP CLEANER due to noncompliance with meds, decreased intake (reported 25 lb weight loss in 3 months), and disruptive behaviors, such as throwing things at home. Pt had made vague suicidal statements, saying I can't keep trying . Upon arrival to the unit pt c/o anxiety and went to her room to lay down. A crisis eval was not available at time of admission and pt declined to participate in assessment w/ TW. She was asleep when TW approached her with medications and to attempt to complete admission process. Pt did deny any suicidal or self-harm thoughts, as well as HI, and acknowledged that she would seek out staff if necessary. Pt was compliant with medications, returned to bed shortly after receiving meds and appeared to sleep remainder of the shift. Pt continues on 15 min. checks.
[2024-03-27 07:57] VITALS: BP 93/55; PULSE 82; RESP 14; TEMP 36.6; O2SAT 94
[2024-03-27] MEDS: guanFACINE HCl ER 1 MG TAB.ER.24H PO ×2 (08:43→20:15)
[2024-03-27] MEDS: Pregabalin 150 MG CAPSULE PO (08:43)
[2024-03-27] MEDS: modafiniL 100 MG TABLET 50 MG PO (08:44)
[2024-03-27] MEDS: Pramipexole Di-HCL 0.25 MG TABLET 0.5 MG PO ×3 (08:44→20:16)
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
[2024-03-27 09:09] LABS: Alanine Aminotransferase 11 U/L (0-31); Albumin Level 4.1 g/dL (3.5-5.0); Alkaline Phosphatase 92 U/L (39-117); Anion Gap 11 (12-20); Aspartate Amino Transferase 16 U/L (5-31); Bilirubin Total 0.3 mg/dL (0.0-1.0); Blood Urea Nitrogen 12 mg/dL (9-16); Calcium 9.2 mg/dL (8.4-10.2); Carbon Dioxide 29 mmol/L (22-29); Chloride 102 mmol/L (96-108); Cholesterol 237 mg/dL (<200); Creatinine Clr Calc Pharmacy 47.3; Estimated Glomerular Filt Rate > 60; Glucose Fasting 139 mg/dL (60-99); HDL Cholesterol 64 mg/dL (>40); LDL Cholesterol Calculated 151 mg/dL (<100); Potassium 4.2 mmol/L (3.3-5.1); Sodium 138 mmol/L (135-145); Total Protein 6.9 g/dL (6.5-8.0); Triglycerides 111 mg/dL (<150)
[2024-03-27] MEDS: Albuterol Sulfate 90 MCG 8 GM INHALER 2 PUFF INHALE (09:13)
[2024-03-27 09:30] LABS: Estimated Average Glucose 128 mg/dL; Hemoglobin A1c % 6.1 % (<6.0)
[2024-03-27 12:51] LABS: Vitamin B12 851 pg/mL (200-900)
[2024-03-27] MEDS: clonazePAM 0.5 MG TABLET PO ×2 (14:02→20:15)
[2024-03-27] MEDS: Pregabalin 200 MG CAPSULE PO ×2 (15:17→20:15)
[2024-03-27 19:53] VITALS: BP 85/53; PULSE 94; RESP 14; TEMP 36.9; O2SAT 94
[2024-03-28 07:20] VITALS: BP 93/59; PULSE 60; RESP 16; TEMP 36.5; O2SAT 94
[2024-03-28] MEDS: Pramipexole Di-HCL 0.25 MG TABLET 0.5 MG PO ×3 (08:36→20:39)
[2024-03-28] MEDS: modafiniL 100 MG TABLET PO (08:36)
[2024-03-28] MEDS: guanFACINE HCl ER 1 MG TAB.ER.24H PO ×3 (08:36→20:38)
[2024-03-28] MEDS: Pregabalin 200 MG CAPSULE PO ×3 (08:36→20:39)
[2024-03-28] MEDS: Levothyroxine Sodium 50 MCG TABLET PO (11:58)
[2024-03-28] MEDS: Hydrocortisone 1 % Ointment 28.35 GM TUBE 1 APPL TOPICAL ×2 (11:59→17:30)
--- NOTE | 2024-03-28 16:52 | P.PNPSI_ITS ---
Subjective Subjective Date of Service: 03/28/24 Reason For Visit: SI Interim History: pt appears much more calm today, attributes her improvement in the afternoon yesterday to the miraculous hannah of an extra dose of klonopin 0.5 mg. despite acknowledging feeling well today, pt relentlessly pursues an additional daily dose of PRN klonopin 0.5 mg. MD agrees to make such dose available in the hospital, making it clear no prescription will be given at discharge. pt is pleased. much content re her incarcerated son. slept well. amenable to increase guanfacine to 3 mg per day, 1 mg TID. per staff, anx/irritable. labile, agitated. outburst re no additional klonopin being ordered yesterday. Mental Status Exam Mental Status Exam Narrative: Alert and oriented, in no acute distress. Remains seated, fidgets, animated. No tics or tremor noted. cooperative. Mood anxious, affect hyper-intense, non- labile. Speech incr rate, amount. nml loudness. decr latency. Thought process rambling, can be linear in response to questions. no delusions or paranoia. Thought content related to stressors, need for benzo. No aggressive ideation or HI. No evidence of psychosis. Insight and judgment fair but adequate. Diagnostics Vital Signs (24Hr): Vital Signs - 24 hr 03/27/24 19:53 03/28/24 07:20 Temperature 98.4 F 97.7 F Pulse Rate 94 60 Respiratory Rate 14 16 Blood Pressure 85/53 L 93/59 L Pulse Oximetry 94 94 Oxygen Delivery Method Room Air Room Air BMI result Body Mass Index 17.4 Labs 03/26/24 14:37 03/27/24 08:40 Labs: Laboratory Results - last 48 hr 03/26/24 03/27/24 14:37 08:40 Sodium 138 Potassium 4.2 Chloride 102 Carbon Dioxide 29 Anion Gap 11 L BUN 12 Creatinine 0.85 Estim Creat Clear Calc 47.3 Estimated GFR > 60 Fasting Glucose 139 H Estimat Average Glucose 128 Hemoglobin A1c % 6.1 H Calcium 9.2 Total Bilirubin 0.3 AST 16 ALT 11 Alkaline Phosphatase 92 Total Protein 6.9 Albumin 4.1 Triglycerides 111 Cholesterol 237 H LDL Cholesterol, Calc 151 H HDL Cholesterol 64 Vitamin B12 851 Free T4 0.80 Medications Medications Current Medications Acetaminophen (Acetaminophen 325 Mg Tablet) 650 mg PO Q6H PRN PRN Reason: Headache/Pain Mild Scale (1-3) Al Hydroxide/Mg Hydroxide (Magnesium Hydrox/Alum Hydrox 30 Ml Oral.Susp) 30 ml PO Q6H PRN PRN Reason: Heartburn/Nausea Albuterol Sulfate (Albuterol Sulfate 90 Mcg 8 Gm Inhaler) 2 puff INHALE Q4H PRN PRN Reason: wheezing Last Admin: 03/27/24 09:13 Dose: 2 puff Clonazepam (Clonazepam 0.5 Mg Tablet) 0.5 mg PO BEDTIME PRN PRN Reason: for sleep Last Admin: 03/27/24 20:15 Dose: 0.5 mg Clonazepam (Clonazepam 0.5 Mg Tablet) 0.5 mg PO DAILY PRN PRN Reason: severe anxiety Guanfacine HCl (Guanfacine Hcl Er 1 Mg Tab.Er.24h) 1 mg PO TID [facility] Last Admin: 03/28/24 15:20 Dose: 1 mg Hydrocortisone (Hydrocortisone 1 % Ointment 28.35 Gm Tube) 1 appl TOPICAL BID [facility]; Protocol Last Admin: 03/28/24 11:59 Dose: 1 appl Levothyroxine Sodium (Levothyroxine Sodium 50 Mcg Tablet) 50 mcg PO DAILY@0600 [facility] Last Admin: 03/28/24 11:58 Dose: 50 mcg Magnesium Hydroxide (Milk Of Magnesia 30 Ml Oral.Susp) 30 ml PO DAILY PRN PRN Reason: Constipation Modafinil (Modafinil 100 Mg Tablet) 100 mg PO DAILY [facility] Last Admin: 03/28/24 08:36 Dose: 100 mg Pramipexole Dihydrochloride (Pramipexole Di-Hcl 0.25 Mg Tablet) 0.5 mg PO TID [facility] Last Admin: 03/28/24 15:20 Dose: 0.5 mg Pregabalin (Pregabalin 200 Mg Capsule) 200 mg PO TID [facility] Last Admin: 03/28/24 15:20 Dose: 200 mg Trazodone HCl (Trazodone Hcl 50 Mg Tablet) 50 mg PO BEDTIME MRX1 PRN PRN Reason: Insomnia Allergies Allergies Allergy/AdvReac Type Severity Reaction Status Date / Time olanzapine [From ZYPREXA] AdvReac Intermediate RLS Verified 03/26/24 13:18 symptoms clonidine AdvReac RLS Verified 03/26/24 13:18 diphenhydramine AdvReac RLS Verified 03/26/24 13:18 [From Benadryl] hydroxyzine AdvReac RLS Verified 03/26/24 13:18 melatonin AdvReac RLS Verified 03/26/24 13:18 atypical antipsychotics AdvReac Severe This class Uncoded 03/19/24 10:52 appears to potentiate RLS/Akathesia Assessment & Plan Assessment & Plan (1) MDD (major depressive disorder), recurrent episode: Status: Acute Code(s): F33.9 - Major depressive disorder, recurrent, unspecified (2) Post-traumatic stress disorder, unspecified: Status: Acute Code(s): F43.10 - Post-traumatic stress disorder, unspecified (3) Amphetamine abuse in remission: Status: Acute Code(s): F15.11 - Other stimulant abuse, in remission (4) Restless leg syndrome: Status: Acute Code(s): G25.81 - Restless legs syndrome (5) Generalized anxiety disorder: Status: Acute Code(s): F41.1 - Generalized anxiety disorder (6) Benzodiazepine abuse: Status: Acute Code(s): F13.10 - Sedative, hypnotic or anxiolytic abuse, uncomplicated Plan 03/27: increase lyrica from 150/150/250 to 200 TID. T/C guanfacine dosing increase to 3 mg daily. one-time klonopin PRN given this afternoon. pt is benzo seeking and has benzo abuse Dx. per patenaude, no plan was recently hatched to prescribe an increased dose of klonopin. continue outpt regimen otherwise. PHP referral. 03/28: restart synthroid 50 mcg daily. steroid for skin rxn on left arm. increase guanfacine ER from 1 BID to 1 TID. klonopin 0.5 mg daily PRN added for hospital stay only. slept well, mood and affect much improved from yesterday. Reason for continued inpatient stay Substantial Risk for: inability to function and rapid decompensation Time Spent With Patient Time: Total time managing care of this patient today __35__ minutes.
[2024-03-28 19:15] VITALS: BP 124/73; PULSE 64; RESP 16; TEMP 36.4; O2SAT 98
[2024-03-28] MEDS: clonazePAM 0.5 MG TABLET PO ×2 (20:39→22:31)
[2024-03-29] MEDS: Levothyroxine Sodium 50 MCG TABLET PO (05:56)
[2024-03-29 07:00] VITALS: BMI 17.5
[2024-03-29 07:55] VITALS: BP 100/57; PULSE 56; RESP 18; TEMP 36.9; O2SAT 93
[2024-03-29] MEDS: Pregabalin 200 MG CAPSULE PO ×3 (08:47→22:12)
[2024-03-29] MEDS: guanFACINE HCl ER 1 MG TAB.ER.24H PO ×3 (08:48→22:13)
[2024-03-29] MEDS: Pramipexole Di-HCL 0.25 MG TABLET 0.5 MG PO ×3 (08:48→22:12)
[2024-03-29] MEDS: modafiniL 100 MG TABLET PO (08:48)
[2024-03-29] MEDS: Hydrocortisone 1 % Ointment 28.35 GM TUBE 1 APPL TOPICAL (12:25)
[2024-03-29] MEDS: Pyridoxine HCl (Vitamin B6) 50 MG TABLET 25 MG PO (14:04)
[2024-03-29] MEDS: Cholecalciferol (Vitamin D3) 25 MCG TABLET 100 MCG PO (14:04)
[2024-03-29] MEDS: Cyanocobalamin (Vitamin B-12) 1,000 MCG TABLET 1000 MCG PO (14:04)
[2024-03-29] MEDS: clonazePAM 0.5 MG TABLET PO ×2 (14:09→22:13)
--- NOTE | 2024-03-29 16:23 | P.PNPSI_ITS ---
Subjective Subjective Date of Service: 03/29/24 Reason For Visit: SI Interim History: calm, cooperative. remains appearing much better than first day. agreeable to continue current mgmt and hoping to get back into [facility] directly upon discharge from hospital. per staff, some depression and anxiety. labile, taking meds. 2 outbursts on eves. slept about 6 hours. Mental Status Exam Mental Status Exam Narrative: Alert and oriented, in no acute distress. Remains seated, fidgets, animated. No tics or tremor noted. cooperative. Mood anxious, affect hyper-intense, non- labile. Speech incr rate, amount. nml loudness. decr latency. Thought process rambling, can be linear in response to questions. no delusions or paranoia. Thought content related to stressors, future plans. No aggressive ideation or HI. No evidence of psychosis. Insight and judgment fair but adequate. Diagnostics Vital Signs (24Hr): Vital Signs - 24 hr 03/28/24 19:15 03/29/24 07:55 Temperature 97.6 F 98.5 F Pulse Rate 64 56 Respiratory Rate 16 18 Blood Pressure 124/73 100/57 L Pulse Oximetry 98 93 Oxygen Delivery Method Room Air Room Air BMI result Body Mass Index 17.5 Labs 03/26/24 14:37 03/27/24 08:40 Medications Medications Current Medications Acetaminophen (Acetaminophen 325 Mg Tablet) 650 mg PO Q6H PRN PRN Reason: Headache/Pain Mild Scale (1-3) Al Hydroxide/Mg Hydroxide (Magnesium Hydrox/Alum Hydrox 30 Ml Oral.Susp) 30 ml PO Q6H PRN PRN Reason: Heartburn/Nausea Albuterol Sulfate (Albuterol Sulfate 90 Mcg 8 Gm Inhaler) 2 puff INHALE Q4H PRN PRN Reason: wheezing Last Admin: 03/27/24 09:13 Dose: 2 puff Clonazepam (Clonazepam 0.5 Mg Tablet) 0.5 mg PO BEDTIME PRN PRN Reason: for sleep Last Admin: 03/28/24 20:39 Dose: 0.5 mg Clonazepam (Clonazepam 0.5 Mg Tablet) 0.5 mg PO DAILY PRN PRN Reason: severe anxiety Last Admin: 03/29/24 14:09 Dose: 0.5 mg Cyanocobalamin (Cyanocobalamin (Vitamin B-12) 1,000 Mcg Tablet) 1,000 mcg PO DAILY [facility] Last Admin: 03/29/24 14:04 Dose: 1,000 mcg Guanfacine HCl (Guanfacine Hcl Er 1 Mg Tab.Er.24h) 1 mg PO TID [facility] Last Admin: 03/29/24 14:04 Dose: 1 mg Hydrocortisone (Hydrocortisone 1 % Ointment 28.35 Gm Tube) 1 appl TOPICAL BID [facility]; Protocol Last Admin: 03/29/24 12:25 Dose: 1 appl Levothyroxine Sodium (Levothyroxine Sodium 50 Mcg Tablet) 50 mcg PO DAILY@0600 [facility] Last Admin: 03/29/24 05:56 Dose: 50 mcg Magnesium Hydroxide (Milk Of Magnesia 30 Ml Oral.Susp) 30 ml PO DAILY PRN PRN Reason: Constipation Modafinil (Modafinil 100 Mg Tablet) 100 mg PO DAILY [facility] Last Admin: 03/29/24 08:48 Dose: 100 mg Pramipexole Dihydrochloride (Pramipexole Di-Hcl 0.25 Mg Tablet) 0.5 mg PO TID [facility] Last Admin: 03/29/24 14:03 Dose: 0.5 mg Pregabalin (Pregabalin 200 Mg Capsule) 200 mg PO TID [facility] Last Admin: 03/29/24 14:04 Dose: 200 mg Pyridoxine HCl (Pyridoxine Hcl (Vitamin B6) 50 Mg Tablet) 25 mg PO DAILY [facility] Last Admin: 03/29/24 14:04 Dose: 25 mg Trazodone HCl (Trazodone Hcl 50 Mg Tablet) 50 mg PO BEDTIME MRX1 PRN PRN Reason: Insomnia Vitamin D (Cholecalciferol (Vitamin D3) 25 Mcg Tablet) 100 mcg PO DAILY [facility] Last Admin: 03/29/24 14:04 Dose: 100 mcg Allergies Allergies Allergy/AdvReac Type Severity Reaction Status Date / Time olanzapine [From ZYPREXA] AdvReac Intermediate RLS Verified 03/26/24 13:18 symptoms clonidine AdvReac RLS Verified 03/26/24 13:18 diphenhydramine AdvReac RLS Verified 03/26/24 13:18 [From Benadryl] hydroxyzine AdvReac RLS Verified 03/26/24 13:18 melatonin AdvReac RLS Verified 03/26/24 13:18 atypical antipsychotics AdvReac Severe This class Uncoded 03/19/24 10:52 appears to potentiate RLS/Akathesia Assessment & Plan Assessment & Plan (1) MDD (major depressive disorder), recurrent episode: Status: Acute Code(s): F33.9 - Major depressive disorder, recurrent, unspecified (2) Post-traumatic stress disorder, unspecified: Status: Acute Code(s): F43.10 - Post-traumatic stress disorder, unspecified (3) Amphetamine abuse in remission: Status: Acute Code(s): F15.11 - Other stimulant abuse, in remission (4) Restless leg syndrome: Status: Acute Code(s): G25.81 - Restless legs syndrome (5) Generalized anxiety disorder: Status: Acute Code(s): F41.1 - Generalized anxiety disorder (6) Benzodiazepine abuse: Status: Acute Code(s): F13.10 - Sedative, hypnotic or anxiolytic abuse, uncomplicated Plan 03/27: increase lyrica from 150/150/250 to 200 TID. T/C guanfacine dosing increase to 3 mg daily. one-time klonopin PRN given this afternoon. pt is benzo seeking and has benzo abuse Dx. per lulu, no plan was recently hatched to prescribe an increased dose of klonopin. continue outpt regimen otherwise. PHP referral. 03/28: restart synthroid 50 mcg daily. steroid for skin rxn on left arm. increase guanfacine ER from 1 BID to 1 TID. klonopin 0.5 mg daily PRN added for hospital stay only. slept well, mood and affect much improved from yesterday. 03/29: add vitamins per pt request. otherwise continue current mgmt. interested in rapid return to [facility] after discharge. Reason for continued inpatient stay Substantial Risk for: rapid decompensation Time Spent With Patient Time: Total time managing care of this patient today __35__ minutes.
[2024-03-29 19:20] VITALS: BP 117/55; PULSE 52; RESP 16; TEMP 36.5; O2SAT 96
[2024-03-30] MEDS: clonazePAM 0.5 MG TABLET PO ×2 (01:38→21:32)
[2024-03-30] MEDS: Levothyroxine Sodium 50 MCG TABLET PO (06:22)
[2024-03-30 07:25] VITALS: BP 102/60; PULSE 54; RESP 14; TEMP 36.8; O2SAT 96
[2024-03-30] MEDS: Pramipexole Di-HCL 0.25 MG TABLET 0.5 MG PO ×3 (09:01→21:32)
[2024-03-30] MEDS: Pyridoxine HCl (Vitamin B6) 50 MG TABLET 25 MG PO (09:01)
[2024-03-30] MEDS: guanFACINE HCl ER 1 MG TAB.ER.24H PO ×3 (09:02→21:32)
[2024-03-30] MEDS: Cyanocobalamin (Vitamin B-12) 1,000 MCG TABLET 1000 MCG PO (09:03)
[2024-03-30] MEDS: Cholecalciferol (Vitamin D3) 25 MCG TABLET 100 MCG PO (09:03)
[2024-03-30] MEDS: modafiniL 100 MG TABLET PO (09:03)
[2024-03-30] MEDS: Pregabalin 200 MG CAPSULE PO ×3 (09:03→21:32)
--- NOTE | 2024-03-30 15:30 | PC.NURSE ---
Jaja refused 3pm medication due to the doctor changing my medications without consulting me. I don't want any medications from him.
--- NOTE | 2024-03-30 17:55 | P.PNPSI_ITS ---
Subjective Subjective Date of Service: 03/30/24 Reason For Visit: SI Interim History: initially calm, cooperative, upbeat. continuing to feel better, less anxious. broached vitamins and replacement of constituents of the vitamins she had brought in except for one uncommon ingredient. pt became extremely reactive, labile, raising her voice that she has a gene mutation and needs these vitamins. explained we do not have the vitamins in the pharmacy and if she would like to use her own supply she would have to have her bring in an unopened container. pt persisted, yelling at MD that this was essentially unacceptable and we must allow her to take the vitamins she had brought in. MD attempted to explain again how she might solve this problem, pt only yelled over MD and was not able to calm herself. MD stated to pt that her demeanor was inappropriate for the conversation and that one she were able to calm herself we might have a conversation. pt became further outraged and stormed out of the interview room. per staff, anx/dep. labile. taking meds. PRN klonopin. had visit with . slept about 5 hours. MD was informed by BORIS Nicole that pt had informed her MD had slammed his computer shut during the interview with pt; no event which might be reasonably interpreted as such occurred during the interview. Mental Status Exam Mental Status Exam Narrative: Alert and oriented, in no acute distress. Remains seated, fidgets, animated. No tics or tremor noted. cooperation variable. Mood anxious, affect hyper-intense, labile. Speech incr rate, amount, loudness. decr latency. Thought process rambling initially, then perseverative. Thought content related to vitamins. no SI/HI/AVH expressed. Diagnostics Vital Signs (24Hr): Vital Signs - 24 hr 03/29/24 19:20 03/30/24 07:25 Temperature 97.7 F 98.2 F Pulse Rate 52 54 Respiratory Rate 16 14 Blood Pressure 117/55 L 102/60 Pulse Oximetry 96 96 Oxygen Delivery Method Room Air Room Air BMI result Body Mass Index 17.5 Labs 03/26/24 14:37 03/27/24 08:40 Medications Medications Current Medications Acetaminophen (Acetaminophen 325 Mg Tablet) 650 mg PO Q6H PRN PRN Reason: Headache/Pain Mild Scale (1-3) Al Hydroxide/Mg Hydroxide (Magnesium Hydrox/Alum Hydrox 30 Ml Oral.Susp) 30 ml PO Q6H PRN PRN Reason: Heartburn/Nausea Albuterol Sulfate (Albuterol Sulfate 90 Mcg 8 Gm Inhaler) 2 puff INHALE Q4H PRN PRN Reason: wheezing Last Admin: 03/27/24 09:13 Dose: 2 puff Clonazepam (Clonazepam 0.5 Mg Tablet) 0.5 mg PO BEDTIME PRN PRN Reason: for sleep Last Admin: 03/29/24 22:13 Dose: 0.5 mg Clonazepam (Clonazepam 0.5 Mg Tablet) 0.5 mg PO DAILY PRN PRN Reason: severe anxiety Last Admin: 03/30/24 01:38 Dose: 0.5 mg Cyanocobalamin (Cyanocobalamin (Vitamin B-12) 1,000 Mcg Tablet) 1,000 mcg PO DAILY [facility] Last Admin: 03/30/24 09:03 Dose: 1,000 mcg Folic Acid (Folic Acid 1 Mg Tablet) 1 mg PO DAILY [facility] Last Admin: 03/30/24 09:02 Dose: Not Given Guanfacine HCl (Guanfacine Hcl Er 1 Mg Tab.Er.24h) 1 mg PO TID [facility] Last Admin: 03/30/24 16:41 Dose: 1 mg Hydrocortisone (Hydrocortisone 1 % Ointment 28.35 Gm Tube) 1 appl TOPICAL BID [facility]; Protocol Last Admin: 03/29/24 12:25 Dose: 1 appl Levothyroxine Sodium (Levothyroxine Sodium 50 Mcg Tablet) 50 mcg PO DAILY@0600 [facility] Last Admin: 03/30/24 06:22 Dose: 50 mcg Magnesium Hydroxide (Milk Of Magnesia 30 Ml Oral.Susp) 30 ml PO DAILY PRN PRN Reason: Constipation Modafinil (Modafinil 100 Mg Tablet) 100 mg PO DAILY [facility] Last Admin: 03/30/24 09:03 Dose: 100 mg Pramipexole Dihydrochloride (Pramipexole Di-Hcl 0.25 Mg Tablet) 0.5 mg PO TID [facility] Last Admin: 03/30/24 16:42 Dose: 0.5 mg Pregabalin (Pregabalin 200 Mg Capsule) 200 mg PO TID [facility] Last Admin: 03/30/24 16:41 Dose: 200 mg Pyridoxine HCl (Pyridoxine Hcl (Vitamin B6) 50 Mg Tablet) 25 mg PO DAILY [facility] Last Admin: 03/30/24 09:01 Dose: 25 mg Trazodone HCl (Trazodone Hcl 50 Mg Tablet) 50 mg PO BEDTIME MRX1 PRN PRN Reason: Insomnia Vitamin D (Cholecalciferol (Vitamin D3) 25 Mcg Tablet) 100 mcg PO DAILY [facility] Last Admin: 03/30/24 09:03 Dose: 100 mcg Allergies Allergies Allergy/AdvReac Type Severity Reaction Status Date / Time olanzapine [From ZYPREXA] AdvReac Intermediate RLS Verified 03/26/24 13:18 symptoms clonidine AdvReac RLS Verified 03/26/24 13:18 diphenhydramine AdvReac RLS Verified 03/26/24 13:18 [From Benadryl] hydroxyzine AdvReac RLS Verified 03/26/24 13:18 melatonin AdvReac RLS Verified 03/26/24 13:18 atypical antipsychotics AdvReac Severe This class Uncoded 03/19/24 10:52 appears to potentiate RLS/Akathesia Assessment & Plan Assessment & Plan (1) MDD (major depressive disorder), recurrent episode: Status: Acute Code(s): F33.9 - Major depressive disorder, recurrent, unspecified (2) Post-traumatic stress disorder, unspecified: Status: Acute Code(s): F43.10 - Post-traumatic stress disorder, unspecified (3) Amphetamine abuse in remission: Status: Acute Code(s): F15.11 - Other stimulant abuse, in remission (4) Restless leg syndrome: Status: Acute Code(s): G25.81 - Restless legs syndrome (5) Generalized anxiety disorder: Status: Acute Code(s): F41.1 - Generalized anxiety disorder (6) Benzodiazepine abuse: Status: Acute Code(s): F13.10 - Sedative, hypnotic or anxiolytic abuse, uncomplicated Plan 03/27: increase lyrica from 150/150/250 to 200 TID. T/C guanfacine dosing increase to 3 mg daily. one-time klonopin PRN given this afternoon. pt is benzo seeking and has benzo abuse Dx. per patenaude, no plan was recently hatched to prescribe an increased dose of klonopin. continue outpt regimen otherwise. PHP referral. 03/28: restart synthroid 50 mcg daily. steroid for skin rxn on left arm. increase guanfacine ER from 1 BID to 1 TID. klonopin 0.5 mg daily PRN added for hospital stay only. slept well, mood and affect much improved from yesterday. 03/29: add vitamins per pt request. otherwise continue current mgmt. interested in rapid return to [facility] after discharge. 03/30: episode of agitation and emotional dysregulation with MD toure vitamins. informed by SW that [facility] would not take pt back. regressive, splitting behaviors today. Reason for continued inpatient stay Substantial Risk for: inability to function Time Spent With Patient Time: Total time managing care of this patient today __35__ minutes.
[2024-03-30 21:16] VITALS: BP 133/88; PULSE 59; RESP 14; TEMP 36.9; O2SAT 97
--- NOTE | 2024-03-31 02:10 | PC.NURSE ---
During HS medication administration, pt made a comment about not being able to have her TAMAR vitamins to address her issues with processing B vitamins. This RN advised pt that she should have her bring in an unopened bottle of the vitamins and let the pharmacy process it. Pt stated, That's alright, I am just gonna have my slip me one every day when he comes to visit .
[2024-03-31] MEDS: Levothyroxine Sodium 50 MCG TABLET PO (05:17)
[2024-03-31 07:15] VITALS: BP 95/49; PULSE 54; TEMP 36.4; O2SAT 96
[2024-03-31] MEDS: guanFACINE HCl ER 1 MG TAB.ER.24H PO ×3 (08:37→23:02)
[2024-03-31] MEDS: Pregabalin 200 MG CAPSULE PO ×3 (08:37→23:02)
[2024-03-31] MEDS: Pramipexole Di-HCL 0.25 MG TABLET 0.5 MG PO ×3 (08:38→23:02)
[2024-03-31] MEDS: modafiniL 100 MG TABLET PO (08:38)
[2024-03-31] MEDS: clonazePAM 0.5 MG TABLET PO ×2 (14:11→23:08)
--- NOTE | 2024-03-31 17:42 | P.PNPSI_ITS ---
Subjective Subjective Date of Service: 03/31/24 Reason For Visit: SI Interim History: 30+ minute mtg with pt, her , , and RN neida today. no change in mgmt aside from DC of order for supervised visits. plans to bring new bottle of vitamins from home. per staff, paranoid last misty. threw tea across room in a pique. Mental Status Exam Mental Status Exam Narrative: Alert and oriented, in no acute distress. spends entire family mtg with back to MD. Remains seated, fidgets, animated. No tics or tremor noted. cooperation variable. Mood anxious, affect hyper-intense, labile. Speech incr rate, amount, loudness. decr latency. Thought process rambling. Thought content related to vitamins, events occurring during mtg with MD yesterday. no SI/HI/AVH expressed. Diagnostics Vital Signs (24Hr): Vital Signs - 24 hr 03/30/24 21:16 03/31/24 07:15 Temperature 98.5 F 97.6 F Pulse Rate 59 54 Respiratory Rate 14 Blood Pressure 133/88 95/49 L Pulse Oximetry 97 96 Oxygen Delivery Method Room Air Room Air BMI result Body Mass Index 17.5 Labs 03/26/24 14:37 03/27/24 08:40 Medications Medications Current Medications Acetaminophen (Acetaminophen 325 Mg Tablet) 650 mg PO Q6H PRN PRN Reason: Headache/Pain Mild Scale (1-3) Al Hydroxide/Mg Hydroxide (Magnesium Hydrox/Alum Hydrox 30 Ml Oral.Susp) 30 ml PO Q6H PRN PRN Reason: Heartburn/Nausea Albuterol Sulfate (Albuterol Sulfate 90 Mcg 8 Gm Inhaler) 2 puff INHALE Q4H PRN PRN Reason: wheezing Last Admin: 03/27/24 09:13 Dose: 2 puff Clonazepam (Clonazepam 0.5 Mg Tablet) 0.5 mg PO BEDTIME PRN PRN Reason: for sleep Last Admin: 03/30/24 21:32 Dose: 0.5 mg Clonazepam (Clonazepam 0.5 Mg Tablet) 0.5 mg PO DAILY PRN PRN Reason: severe anxiety Last Admin: 03/31/24 14:11 Dose: 0.5 mg Cyanocobalamin (Cyanocobalamin (Vitamin B-12) 1,000 Mcg Tablet) 1,000 mcg PO DAILY [facility] Last Admin: 03/31/24 08:35 Dose: Not Given Folic Acid (Folic Acid 1 Mg Tablet) 1 mg PO DAILY [facility] Last Admin: 03/31/24 08:35 Dose: Not Given Guanfacine HCl (Guanfacine Hcl Er 1 Mg Tab.Er.24h) 1 mg PO TID [facility] Last Admin: 03/31/24 15:41 Dose: 1 mg Hydrocortisone (Hydrocortisone 1 % Ointment 28.35 Gm Tube) 1 appl TOPICAL BID [facility]; Protocol Last Admin: 03/29/24 12:25 Dose: 1 appl Levothyroxine Sodium (Levothyroxine Sodium 50 Mcg Tablet) 50 mcg PO DAILY@0600 [facility] Last Admin: 03/31/24 05:17 Dose: 50 mcg Magnesium Hydroxide (Milk Of Magnesia 30 Ml Oral.Susp) 30 ml PO DAILY PRN PRN Reason: Constipation Modafinil (Modafinil 100 Mg Tablet) 100 mg PO DAILY [facility] Last Admin: 03/31/24 08:38 Dose: 100 mg Pramipexole Dihydrochloride (Pramipexole Di-Hcl 0.25 Mg Tablet) 0.5 mg PO TID [facility] Last Admin: 03/31/24 15:41 Dose: 0.5 mg Pregabalin (Pregabalin 200 Mg Capsule) 200 mg PO TID [facility] Last Admin: 03/31/24 15:42 Dose: 200 mg Pyridoxine HCl (Pyridoxine Hcl (Vitamin B6) 50 Mg Tablet) 25 mg PO DAILY [facility] Last Admin: 03/31/24 08:43 Dose: Not Given Trazodone HCl (Trazodone Hcl 50 Mg Tablet) 50 mg PO BEDTIME MRX1 PRN PRN Reason: Insomnia Vitamin D (Cholecalciferol (Vitamin D3) 25 Mcg Tablet) 100 mcg PO DAILY [facility] Last Admin: 03/31/24 08:35 Dose: Not Given Allergies Allergies Allergy/AdvReac Type Severity Reaction Status Date / Time olanzapine [From ZYPREXA] AdvReac Intermediate RLS Verified 03/26/24 13:18 symptoms clonidine AdvReac RLS Verified 03/26/24 13:18 diphenhydramine AdvReac RLS Verified 03/26/24 13:18 [From Benadryl] hydroxyzine AdvReac RLS Verified 03/26/24 13:18 melatonin AdvReac RLS Verified 03/26/24 13:18 atypical antipsychotics AdvReac Severe This class Uncoded 03/19/24 10:52 appears to potentiate RLS/Akathesia Assessment & Plan Assessment & Plan (1) MDD (major depressive disorder), recurrent episode: Status: Acute Code(s): F33.9 - Major depressive disorder, recurrent, unspecified (2) Post-traumatic stress disorder, unspecified: Status: Acute Code(s): F43.10 - Post-traumatic stress disorder, unspecified (3) Amphetamine abuse in remission: Status: Acute Code(s): F15.11 - Other stimulant abuse, in remission (4) Restless leg syndrome: Status: Acute Code(s): G25.81 - Restless legs syndrome (5) Generalized anxiety disorder: Status: Acute Code(s): F41.1 - Generalized anxiety disorder (6) Benzodiazepine abuse: Status: Acute Code(s): F13.10 - Sedative, hypnotic or anxiolytic abuse, uncomplicated Plan 03/27: increase lyrica from 150/150/250 to 200 TID. T/C guanfacine dosing increase to 3 mg daily. one-time klonopin PRN given this afternoon. pt is benzo seeking and has benzo abuse Dx. per patdarrius, no plan was recently hatched to prescribe an increased dose of klonopin. continue outpt regimen otherwise. PHP referral. 03/28: restart synthroid 50 mcg daily. steroid for skin rxn on left arm. increase guanfacine ER from 1 BID to 1 TID. klonopin 0.5 mg daily PRN added for hospital stay only. slept well, mood and affect much improved from yesterday. 03/29: add vitamins per pt request. otherwise continue current mgmt. interested in rapid return to [facility] after discharge. 03/30: episode of agitation and emotional dysregulation with re vitamins. informed by SW that [facility] would not take pt back. regressive, splitting behaviors today. 03/31: regressive behaviors continue (sat with her back to MD throughout the duration of 30+ minute family mtg), very distorted and frankly false/delusional description of events during meeting with MD yesterday. labile. no substantive change to Tx made today. Reason for continued inpatient stay Substantial Risk for: inability to function Time Spent With Patient Time: Total time managing care of this patient today __60__ minutes.
[2024-03-31 20:00] VITALS: BP 122/57; PULSE 55; RESP 16; TEMP 36.5; O2SAT 98
--- NOTE | 2024-04-01 03:46 | PC.NURSE ---
In Dr. Menezes's progress note on this patient indicated that her will brng in a new bottle of vitamins. Therefore, her visits will no longer be supervised.
[2024-04-01] MEDS: Levothyroxine Sodium 50 MCG TABLET PO (05:31)
--- NOTE | 2024-04-01 05:57 | PC.NURSE ---
Patient said she has just started back eating and has not had a bowel movement for a few days. She asked to have Colace ordered; this information will be passed on to next shift.
[2024-04-01 07:49] VITALS: BP 96/65; PULSE 63; RESP 14; TEMP 36.6; O2SAT 96
[2024-04-01] MEDS: guanFACINE HCl ER 1 MG TAB.ER.24H PO ×3 (08:37→22:51)
[2024-04-01] MEDS: Pregabalin 200 MG CAPSULE PO ×3 (08:37→22:51)
[2024-04-01] MEDS: Pramipexole Di-HCL 0.25 MG TABLET 0.5 MG PO ×3 (08:38→22:51)
[2024-04-01] MEDS: modafiniL 100 MG TABLET PO (08:38)
[2024-04-01] MEDS: Docusate Sodium 100 MG CAPSULE PO (08:59)
[2024-04-01] MEDS: clonazePAM 0.5 MG TABLET PO ×2 (15:03→22:51)
--- NOTE | 2024-04-01 17:12 | HO.PSYCHPN ---
Subjective Subjective Date of Service: 04/01/24 Reason For Visit: SI Interim History: calm, cooperative. animated. non-labile. garrulous. per staff, pt calmed after meeting yesterday. apologized to staff mine warfare officer for her behavior. labile eves, varying from laughing to anx/dep. slept 7 hours. Mental Status Exam Mental Status Exam Narrative: Alert and oriented, in no acute distress. Remains seated, fidgets, animated. No tics or tremor noted. cooperative. Mood anxious, affect hyper-intense, non-labile. Speech incr rate, amount, loudness. decr latency. Thought process rambling. Thought content related to her incarcerated son and worry over his health. no SI/HI/AVH expressed. Diagnostics Vital Signs (24Hr): Vital Signs - 24 hr 03/31/24 20:00 04/01/24 07:49 Temperature 97.7 F 97.9 F Pulse Rate 55 63 Respiratory Rate 16 14 Blood Pressure 122/57 L 96/65 Pulse Oximetry 98 96 Oxygen Delivery Method Room Air Room Air BMI result Body Mass Index 17.5 Labs 03/26/24 14:37 03/27/24 08:40 Medications Medications Current Medications Acetaminophen (Acetaminophen 325 Mg Tablet) 650 mg PO Q6H PRN PRN Reason: Headache/Pain Mild Scale (1-3) Al Hydroxide/Mg Hydroxide (Magnesium Hydrox/Alum Hydrox 30 Ml Oral.Susp) 30 ml PO Q6H PRN PRN Reason: Heartburn/Nausea Albuterol Sulfate (Albuterol Sulfate 90 Mcg 8 Gm Inhaler) 2 puff INHALE Q4H PRN PRN Reason: wheezing Last Admin: 03/27/24 09:13 Dose: 2 puff Clonazepam (Clonazepam 0.5 Mg Tablet) 0.5 mg PO BEDTIME PRN PRN Reason: for sleep Last Admin: 03/31/24 23:08 Dose: 0.5 mg Clonazepam (Clonazepam 0.5 Mg Tablet) 0.5 mg PO DAILY PRN PRN Reason: severe anxiety Last Admin: 04/01/24 15:03 Dose: 0.5 mg Docusate Sodium (Docusate Sodium 100 Mg Capsule) 100 mg PO BID PRN PRN Reason: Constipation Last Admin: 04/01/24 08:59 Dose: 100 mg Guanfacine HCl (Guanfacine Hcl Er 1 Mg Tab.Er.24h) 1 mg PO TID [facility] Last Admin: 04/01/24 14:59 Dose: 1 mg Hydrocortisone (Hydrocortisone 1 % Ointment 28.35 Gm Tube) 1 appl TOPICAL BID [facility]; Protocol Last Admin: 03/29/24 12:25 Dose: 1 appl Levothyroxine Sodium (Levothyroxine Sodium 50 Mcg Tablet) 50 mcg PO DAILY@0600 [facility] Last Admin: 04/01/24 05:31 Dose: 50 mcg Magnesium Hydroxide (Milk Of Magnesia 30 Ml Oral.Susp) 30 ml PO DAILY PRN PRN Reason: Constipation Modafinil (Modafinil 100 Mg Tablet) 100 mg PO DAILY [facility] Last Admin: 04/01/24 08:38 Dose: 100 mg Patient Own Medication ( Methylassist Dietary Supplement) 1 each PO DAILY [facility] Last Admin: 04/01/24 13:43 Dose: 1 each Pramipexole Dihydrochloride (Pramipexole Di-Hcl 0.25 Mg Tablet) 0.5 mg PO TID [facility] Last Admin: 04/01/24 14:59 Dose: 0.5 mg Pregabalin (Pregabalin 200 Mg Capsule) 200 mg PO TID [facility] Last Admin: 04/01/24 14:59 Dose: 200 mg Trazodone HCl (Trazodone Hcl 50 Mg Tablet) 50 mg PO BEDTIME MRX1 PRN PRN Reason: Insomnia Allergies Allergies Allergy/AdvReac Type Severity Reaction Status Date / Time olanzapine [From ZYPREXA] AdvReac Intermediate RLS Verified 03/26/24 13:18 symptoms clonidine AdvReac RLS Verified 03/26/24 13:18 diphenhydramine AdvReac RLS Verified 03/26/24 13:18 [From Benadryl] hydroxyzine AdvReac RLS Verified 03/26/24 13:18 melatonin AdvReac RLS Verified 03/26/24 13:18 atypical antipsychotics AdvReac Severe This class Uncoded 03/19/24 10:52 appears to potentiate RLS/Akathesia Assessment & Plan Assessment & Plan (1) MDD (major depressive disorder), recurrent episode: Status: Acute Code(s): F33.9 - Major depressive disorder, recurrent, unspecified (2) Post-traumatic stress disorder, unspecified: Status: Acute Code(s): F43.10 - Post-traumatic stress disorder, unspecified (3) Amphetamine abuse in remission: Status: Acute Code(s): F15.11 - Other stimulant abuse, in remission (4) Restless leg syndrome: Status: Acute Code(s): G25.81 - Restless legs syndrome (5) Generalized anxiety disorder: Status: Acute Code(s): F41.1 - Generalized anxiety disorder (6) Benzodiazepine abuse: Status: Acute Code(s): F13.10 - Sedative, hypnotic or anxiolytic abuse, uncomplicated Plan 03/27: increase lyrica from 150/150/250 to 200 TID. T/C guanfacine dosing increase to 3 mg daily. one-time klonopin PRN given this afternoon. pt is benzo seeking and has benzo abuse Dx. per lulu, no plan was recently hatched to prescribe an increased dose of klonopin. continue outpt regimen otherwise. PHP referral. 03/28: restart synthroid 50 mcg daily. steroid for skin rxn on left arm. increase guanfacine ER from 1 BID to 1 TID. klonopin 0.5 mg daily PRN added for hospital stay only. slept well, mood and affect much improved from yesterday. 03/29: add vitamins per pt request. otherwise continue current mgmt. interested in rapid return to PHP after discharge. 03/30: episode of agitation and emotional dysregulation with re vitamins. informed by SW that [facility] [place] [place] [facility] would not take pt back. regressive, splitting behaviors today. 03/31: regressive behaviors continue (sat with her back to MD throughout the duration of 30+ minute family mtg), very distorted and frankly false/delusional description of events during meeting with MD yesterday. labile. no substantive change to Tx made today. 04/01: more calm today, hyper-intense and loquacious, but no agitation. brought in vitamins from home. no change in regimen made. pt questioning her need for PHP, will consider IOP versus return to usual outpt Tx. Reason for continued inpatient stay Substantial Risk for: rapid decompensation Time Spent With Patient Time: Total time managing care of this patient today __35__ minutes.
[2024-04-01 19:24] VITALS: BP 114/53; PULSE 60; RESP 14; TEMP 36.4; O2SAT 97
[2024-04-02] MEDS: Levothyroxine Sodium 50 MCG TABLET PO (05:44)
[2024-04-02] MEDS: Docusate Sodium 100 MG CAPSULE PO (05:45)
[2024-04-02 07:40] VITALS: BP 103/57; PULSE 55; RESP 12; TEMP 36.8; O2SAT 96
[2024-04-02] MEDS: guanFACINE HCl ER 1 MG TAB.ER.24H PO ×3 (07:56→23:01)
[2024-04-02] MEDS: Pregabalin 200 MG CAPSULE PO ×3 (07:56→23:02)
[2024-04-02] MEDS: Pramipexole Di-HCL 0.25 MG TABLET 0.5 MG PO ×3 (07:56→23:02)
[2024-04-02] MEDS: modafiniL 100 MG TABLET PO (10:39)
--- NOTE | 2024-04-02 11:41 | HO.PSYCHPN ---
Subjective Subjective Date of Service: 04/02/24 Reason For Visit: SI Interim History: calm, cooperative, loquacious. remains puzzling over what level of care or aftercare plan is most appropriate for her after this hospitalization. will discuss with ilana. per staff, slept 5 hours last 2 nights each, which feels like a lot to her. dep/anx. labile. Mental Status Exam Mental Status Exam Narrative: Alert and oriented, in no acute distress. Remains seated, fidgets, animated. No tics or tremor noted. cooperative. Mood anxious, affect hyper-intense, min-labile (teary). Speech incr rate, amount, loudness. decr latency. Thought process rambling. Thought content related to her aftercare plan. no SI/HI/AVH expressed. Diagnostics Vital Signs (24Hr): Vital Signs - 24 hr 04/01/24 19:24 04/02/24 07:40 Temperature 97.5 F 98.3 F Pulse Rate 60 55 Respiratory Rate 14 12 Blood Pressure 114/53 L 103/57 L Pulse Oximetry 97 96 Oxygen Delivery Method Room Air BMI result Body Mass Index 17.5 Labs 03/26/24 14:37 03/27/24 08:40 Medications Medications Current Medications Acetaminophen (Acetaminophen 325 Mg Tablet) 650 mg PO Q6H PRN PRN Reason: Headache/Pain Mild Scale (1-3) Al Hydroxide/Mg Hydroxide (Magnesium Hydrox/Alum Hydrox 30 Ml Oral.Susp) 30 ml PO Q6H PRN PRN Reason: Heartburn/Nausea Albuterol Sulfate (Albuterol Sulfate 90 Mcg 8 Gm Inhaler) 2 puff INHALE Q4H PRN PRN Reason: wheezing Last Admin: 03/27/24 09:13 Dose: 2 puff Clonazepam (Clonazepam 0.5 Mg Tablet) 0.5 mg PO BEDTIME PRN PRN Reason: for sleep Last Admin: 04/01/24 22:51 Dose: 0.5 mg Clonazepam (Clonazepam 0.5 Mg Tablet) 0.5 mg PO DAILY PRN PRN Reason: severe anxiety Last Admin: 04/01/24 15:03 Dose: 0.5 mg Docusate Sodium (Docusate Sodium 100 Mg Capsule) 100 mg PO BID PRN PRN Reason: Constipation Last Admin: 04/02/24 05:45 Dose: 100 mg Guanfacine HCl (Guanfacine Hcl Er 1 Mg Tab.Er.24h) 1 mg PO TID [facility] Last Admin: 04/02/24 07:56 Dose: 1 mg Hydrocortisone (Hydrocortisone 1 % Ointment 28.35 Gm Tube) 1 appl TOPICAL BID [facility]; Protocol Last Admin: 03/29/24 12:25 Dose: 1 appl Levothyroxine Sodium (Levothyroxine Sodium 50 Mcg Tablet) 50 mcg PO DAILY@0600 [facility] Last Admin: 04/02/24 05:44 Dose: 50 mcg Magnesium Hydroxide (Milk Of Magnesia 30 Ml Oral.Susp) 30 ml PO DAILY PRN PRN Reason: Constipation Modafinil (Modafinil 100 Mg Tablet) 100 mg PO DAILY [facility] Last Admin: 04/02/24 10:39 Dose: 100 mg Patient Own Medication ( Methylassist Dietary Supplement) 1 each PO DAILY [facility] Last Admin: 04/02/24 07:56 Dose: 1 each Pramipexole Dihydrochloride (Pramipexole Di-Hcl 0.25 Mg Tablet) 0.5 mg PO TID [facility] Last Admin: 04/02/24 07:56 Dose: 0.5 mg Pregabalin (Pregabalin 200 Mg Capsule) 200 mg PO TID [facility] Last Admin: 04/02/24 07:56 Dose: 200 mg Trazodone HCl (Trazodone Hcl 50 Mg Tablet) 50 mg PO BEDTIME MRX1 PRN PRN Reason: Insomnia Vitamin D (Cholecalciferol (Vitamin D3) 25 Mcg Tablet) 100 mcg PO DAILY [facility] Allergies Allergies Allergy/AdvReac Type Severity Reaction Status Date / Time olanzapine [From ZYPREXA] AdvReac Intermediate RLS Verified 03/26/24 13:18 symptoms clonidine AdvReac RLS Verified 03/26/24 13:18 diphenhydramine AdvReac RLS Verified 03/26/24 13:18 [From Benadryl] hydroxyzine AdvReac RLS Verified 03/26/24 13:18 melatonin AdvReac RLS Verified 03/26/24 13:18 atypical antipsychotics AdvReac Severe This class Uncoded 03/19/24 10:52 appears to potentiate RLS/Akathesia Assessment & Plan Assessment & Plan (1) MDD (major depressive disorder), recurrent episode: Status: Acute Code(s): F33.9 - Major depressive disorder, recurrent, unspecified (2) Post-traumatic stress disorder, unspecified: Status: Acute Code(s): F43.10 - Post-traumatic stress disorder, unspecified (3) Amphetamine abuse in remission: Status: Acute Code(s): F15.11 - Other stimulant abuse, in remission (4) Restless leg syndrome: Status: Acute Code(s): G25.81 - Restless legs syndrome (5) Generalized anxiety disorder: Status: Acute Code(s): F41.1 - Generalized anxiety disorder (6) Benzodiazepine abuse: Status: Acute Code(s): F13.10 - Sedative, hypnotic or anxiolytic abuse, uncomplicated Plan 03/27: increase lyrica from 150/150/250 to 200 TID. T/C guanfacine dosing increase to 3 mg daily. one-time klonopin PRN given this afternoon. pt is benzo seeking and has benzo abuse Dx. per lulu, no plan was recently hatched to prescribe an increased dose of klonopin. continue outpt regimen otherwise. PHP referral. 03/28: restart synthroid 50 mcg daily. steroid for skin rxn on left arm. increase guanfacine ER from 1 BID to 1 TID. klonopin 0.5 mg daily PRN added for hospital stay only. slept well, mood and affect much improved from yesterday. 03/29: add vitamins per pt request. otherwise continue current mgmt. interested in rapid return to PHP after discharge. 03/30: episode of agitation and emotional dysregulation with re vitamins. informed by SW that [facility] would not take pt back. regressive, splitting behaviors today. 03/31: regressive behaviors continue (sat with her back to MD throughout the duration of 30+ minute family mtg), very distorted and frankly false/delusional description of events during meeting with MD yesterday. labile. no substantive change to Tx made today. 04/01: more calm today, hyper-intense and loquacious, but no agitation. brought in vitamins from home. no change in regimen made. pt questioning her need for PHP, will consider IOP versus return to usual outpt Tx. 04/02: remains stably unstable. continue current mgmt. aftercare planning. Reason for continued inpatient stay Substantial Risk for: inability to function and rapid decompensation Time Spent With Patient Time: Total time managing care of this patient today __35__ minutes.
--- NOTE | 2024-04-02 14:18 | HO.PSYCHPN ---
Subjective Subjective Date of Service: 04/02/24 Reason For Visit: SI Diagnostics Vital Signs (24Hr): Vital Signs - 24 hr 04/01/24 19:24 04/02/24 07:40 Temperature 97.5 F 98.3 F Pulse Rate 60 55 Respiratory Rate 14 12 Blood Pressure 114/53 L 103/57 L Pulse Oximetry 97 96 Oxygen Delivery Method Room Air BMI result Body Mass Index 17.5 Labs 03/26/24 14:37 03/27/24 08:40 Medications Medications Current Medications Acetaminophen (Acetaminophen 325 Mg Tablet) 650 mg PO Q6H PRN PRN Reason: Headache/Pain Mild Scale (1-3) Al Hydroxide/Mg Hydroxide (Magnesium Hydrox/Alum Hydrox 30 Ml Oral.Susp) 30 ml PO Q6H PRN PRN Reason: Heartburn/Nausea Albuterol Sulfate (Albuterol Sulfate 90 Mcg 8 Gm Inhaler) 2 puff INHALE Q4H PRN PRN Reason: wheezing Last Admin: 03/27/24 09:13 Dose: 2 puff Clonazepam (Clonazepam 0.5 Mg Tablet) 0.5 mg PO BEDTIME PRN PRN Reason: for sleep Last Admin: 04/01/24 22:51 Dose: 0.5 mg Clonazepam (Clonazepam 0.5 Mg Tablet) 0.5 mg PO DAILY PRN PRN Reason: severe anxiety Last Admin: 04/01/24 15:03 Dose: 0.5 mg Docusate Sodium (Docusate Sodium 100 Mg Capsule) 100 mg PO BID PRN PRN Reason: Constipation Last Admin: 04/02/24 05:45 Dose: 100 mg Guanfacine HCl (Guanfacine Hcl Er 1 Mg Tab.Er.24h) 1 mg PO TID [facility] Last Admin: 04/02/24 07:56 Dose: 1 mg Hydrocortisone (Hydrocortisone 1 % Ointment 28.35 Gm Tube) 1 appl TOPICAL BID [facility]; Protocol Last Admin: 03/29/24 12:25 Dose: 1 appl Levothyroxine Sodium (Levothyroxine Sodium 50 Mcg Tablet) 50 mcg PO DAILY@0600 [facility] Last Admin: 04/02/24 05:44 Dose: 50 mcg Magnesium Hydroxide (Milk Of Magnesia 30 Ml Oral.Susp) 30 ml PO DAILY PRN PRN Reason: Constipation Modafinil (Modafinil 100 Mg Tablet) 100 mg PO DAILY [facility] Last Admin: 04/02/24 10:39 Dose: 100 mg Patient Own Medication ( Methylassist Dietary Supplement) 1 each PO DAILY [facility] Last Admin: 04/02/24 07:56 Dose: 1 each Pramipexole Dihydrochloride (Pramipexole Di-Hcl 0.25 Mg Tablet) 0.5 mg PO TID [facility] Last Admin: 04/02/24 07:56 Dose: 0.5 mg Pregabalin (Pregabalin 200 Mg Capsule) 200 mg PO TID [facility] Last Admin: 04/02/24 07:56 Dose: 200 mg Trazodone HCl (Trazodone Hcl 50 Mg Tablet) 50 mg PO BEDTIME MRX1 PRN PRN Reason: Insomnia Vitamin D (Cholecalciferol (Vitamin D3) 25 Mcg Tablet) 100 mcg PO DAILY [facility] Allergies Allergies Allergy/AdvReac Type Severity Reaction Status Date / Time olanzapine [From ZYPREXA] AdvReac Intermediate RLS Verified 03/26/24 13:18 symptoms clonidine AdvReac RLS Verified 03/26/24 13:18 diphenhydramine AdvReac RLS Verified 03/26/24 13:18 [From Benadryl] hydroxyzine AdvReac RLS Verified 03/26/24 13:18 melatonin AdvReac RLS Verified 03/26/24 13:18 atypical antipsychotics AdvReac Severe This class Uncoded 03/19/24 10:52 appears to potentiate RLS/Akathesia Assessment & Plan Assessment & Plan (1) MDD (major depressive disorder), recurrent episode: Status: Acute Code(s): F33.9 - Major depressive disorder, recurrent, unspecified (2) Post-traumatic stress disorder, unspecified: Status: Acute Code(s): F43.10 - Post-traumatic stress disorder, unspecified (3) Amphetamine abuse in remission: Status: Acute Code(s): F15.11 - Other stimulant abuse, in remission (4) Restless leg syndrome: Status: Acute Code(s): G25.81 - Restless legs syndrome (5) Generalized anxiety disorder: Status: Acute Code(s): F41.1 - Generalized anxiety disorder (6) Benzodiazepine abuse: Status: Acute Code(s): F13.10 - Sedative, hypnotic or anxiolytic abuse, uncomplicated Plan 03/27: increase lyrica from 150/150/250 to 200 TID. T/C guanfacine dosing increase to 3 mg daily. one-time klonopin PRN given this afternoon. pt is benzo seeking and has benzo abuse Dx. per patdarrius, no plan was recently hatched to prescribe an increased dose of klonopin. continue outpt regimen otherwise. PHP referral. 03/28: restart synthroid 50 mcg daily. steroid for skin rxn on left arm. increase guanfacine ER from 1 BID to 1 TID. klonopin 0.5 mg daily PRN added for hospital stay only. slept well, mood and affect much improved from yesterday. 03/29: add vitamins per pt request. otherwise continue current mgmt. interested in rapid return to PHP after discharge. 03/30: episode of agitation and emotional dysregulation with re vitamins. informed by SW that [facility] would not take pt back. regressive, splitting behaviors today. 03/31: regressive behaviors continue (sat with her back to MD throughout the duration of 30+ minute family mtg), very distorted and frankly false/delusional description of events during meeting with MD yesterday. labile. no substantive change to Tx made today. 04/01: more calm today, hyper-intense and loquacious, but no agitation. brought in vitamins from home. no change in regimen made. pt questioning her need for PHP, will consider IOP versus return to usual outpt Tx. 04/02: remains stably unstable. continue current mgmt. aftercare planning. Time Spent With Patient Time: Total time managing care of this patient today ____ minutes.
[2024-04-02] MEDS: clonazePAM 0.5 MG TABLET PO ×2 (15:18→23:02)
[2024-04-02 20:00] VITALS: BP 129/61; PULSE 66; RESP 14; TEMP 36.9; O2SAT 94
[2024-04-03] MEDS: Levothyroxine Sodium 50 MCG TABLET PO (05:24)
[2024-04-03] MEDS: clonazePAM 0.5 MG TABLET PO (07:13)
[2024-04-03 08:00] VITALS: BP 139/62; PULSE 56; RESP 16; TEMP 36.5; O2SAT 98
[2024-04-03] MEDS: Pregabalin 200 MG CAPSULE PO (08:55)
[2024-04-03] MEDS: Pramipexole Di-HCL 0.25 MG TABLET 0.5 MG PO (08:55)
[2024-04-03] MEDS: guanFACINE HCl ER 1 MG TAB.ER.24H PO (08:55)
[2024-04-03] MEDS: Cholecalciferol (Vitamin D3) 25 MCG TABLET 100 MCG PO (08:56)
[2024-04-03] MEDS: modafiniL 100 MG TABLET PO (08:56)
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
== END 2024-04-03 11:50 | disposition home or self-care (01) | DRG 885 ==
LOC: HO.ED 16:37 → HO.PADLT16 19:04
PROVIDERS: Emergency Medicine Emergency Medical Services; Admitting Provider Social Worker; Emergency Provider Emergency Medicine; Visit Provider Psychiatry & Neurology Psychiatry
DX: F33.1 Major depressive disorder, recurrent, moderate (principal); R45.851 Suicidal ideations; J44.9 Chronic obstructive pulmonary disease, unspecified; F17.210 Nicotine dependence, cigarettes, uncomplicated; Z71.6 Tobacco abuse counseling; E11.9 Type 2 diabetes mellitus without complications; E03.9 Hypothyroidism, unspecified; Z20.822 Contact with and (suspected) exposure to COVID-19; G51.0 Bell's palsy; Z63.4 Disappearance and death of family member; F43.10 Post-traumatic stress disorder, unspecified; G25.81 Restless legs syndrome; F41.1 Generalized anxiety disorder; F13.10 Sedative, hypnotic or anxiolytic abuse, uncomplicated; F15.11 Other stimulant abuse, in remission; Z91.148 Patient's other noncompliance with medication regimen for other reason; Z63.0 Problems in relationship with spouse or partner; Z79.890 Hormone replacement therapy; Z79.899 Other long term (current) drug therapy
CPT/HCPCS: 0241U; 36415; 80053; 80061; 80307; 81003; 82607; 82947; 83036; 84439; 84443; 85025; 93005; 99285

== ENCOUNTER → 2024-03-26 14:53 | Outpatient (BNV) | payer MEDICARE, SELFPAY | PROVIDERS: Admitting Provider Social Worker; Emergency Provider Emergency Medicine; Visit Provider Internal Medicine | DX: I45.81 Long QT syndrome (principal) | CPT/HCPCS: 93010 ==

== ENCOUNTER → 2024-03-26 18:07 | Outpatient (BNV) | payer OTHER, SELFPAY | PROVIDERS: Admitting Provider Social Worker; Emergency Provider Emergency Medicine; Visit Provider Psychiatry & Neurology Psychiatry | DX: F33.2 Major depressive disorder, recurrent severe without psychotic features (principal); F15.11 Other stimulant abuse, in remission; F43.11 Post-traumatic stress disorder, acute; G25.81 Restless legs syndrome; F41.1 Generalized anxiety disorder; F13.10 Sedative, hypnotic or anxiolytic abuse, uncomplicated | CPT/HCPCS: 90792; 99232; 99233; 99239 ==

== ENCOUNTER 2024-05-10 11:19 | Outpatient (AMB) | payer MEDICARE, SELFPAY ==
[2024-05-10 11:29] VITALS: BMI 17.6
--- NOTE | 2024-05-10 11:29 | MHC.OFFVIS ---
Vital Signs 05/10/24 11:29 Height 5 ft 1 in Weight 93 lb BMI 17.6 Intake Visit Reasons: Bilateral Knee OA - Last Inj 01/16/24 Intake Note: Jaja is a 8 year old female who presents today for a follow up of her bilateral knee OA. Bilateral Knees were last injected on 01/16/2024. Allergies olanzapine [From ZYPREXA] Adverse Reaction (Intermediate, Verified 03/26/24 13:18) RLS symptoms clonidine Adverse Reaction (Verified 03/26/24 13:18) RLS diphenhydramine [From Benadryl] Adverse Reaction (Verified 03/26/24 13:18) RLS hydroxyzine Adverse Reaction (Verified 03/26/24 13:18) RLS melatonin Adverse Reaction (Verified 03/26/24 13:18) RLS atypical antipsychotics Adverse Reaction (Severe, Uncoded 03/19/24 10:52) This class appears to potentiate RLS/Akathesia HPI HPI Bilateral Knee OA - Last Inj 01/16/24: Details: Three months status post bilateral knee injections doing well. She benefitted for about 2 months but continues to have bilateral knee pain. [facility] Medical History Osteopenia of multiple sites Skin lesion of back Polysubstance use disorder Syncope Bipolar disorder Type II diabetes mellitus Smoker Fibromyalgia Cannabis use disorder, moderate, dependence Benzodiazepine abuse Osteoporosis Hypothyroidism RLS (restless legs syndrome) COPD (chronic obstructive pulmonary disease) HLD (hyperlipidemia) Surgical History History of cataract surgery H/O: hysterectomy Family History Mother CAD (coronary artery disease) Father Alcoholism Son Substance use disorder Son Substance use disorder Social History Household Members: Unknown / Unable to assess Household Members Other:: son's girlfriend Housing: Unknown / Unable to assess Do you presently have visiting nurse or other home services: No Unable to assess alcohol history related to: Unknown Alcohol intake: never Comment: Pt reports falling d/t excessive intake of Benzo's prior to admission Patient Tobacco Use Status: Former Tobacco user Tobacco use type: Cigarette Cigarette Packs Per Day: 1 Cigarettes Per Day: 20.0 Years Smoked: 45 e-Cigarette/Vaping Use: Never Used Second Hand Smoke Exposure: No Substance Use Type: Marijuana service: No Current occupational status: unemployed Sexual orientation: Straight/Heterosexual Cognitive needs: No Hearing needs: No Vision needs: No Physical Exam Vital Signs: BMI result Body Mass Index 17.6 Const General: no acute distress, alert and awake Orientation/consciousness: patient oriented x3 HEENT Head: Yes normocephalic and Yes atraumatic Mouth: moist mucous membranes Eyes General: appearance normal, both eyes and all related structures EOM: EOMs intact bilaterally Chest Other: no audible wheezing. Resp Other: No audible wheezing Effort & Inspection: normal respiratory effort and able to speak in complete sentences Cardio Other: Radial pulse palpable with no rythmic abnormalities Jugular venous distension: no JVD Back/Spine/Pelvis Cervical Spine: normal cervical lordosis Skin General skin exam: turgor normal Rashes: no rashes Neuro General: patient oriented x3 Extrem Other: Bilateral Knees: Skin C/D/I No effusion TTP MJL R>L Psych Appearance: grossly normal Mental Status: mental status grossly normal Speech and movement: Normal speech and movement present Affect: normal affect Attitude: cooperative Office Procedures Joint Injection/Aspiration Joint Injection/Aspiration Details: Injected 1 mL of Decadron and 3 mL 1% lidocaine and 3 mL of 0.25% Marcaine. Site was prepped using aseptic technique. Patient tolerated the procedure well. Primary Site: right knee Secondary Site: left knee Approach Used: anterolateral Coding - Large joint - Glenohumeral/Tronchanteric Bursa/Intraarticular Procedure code (CPT) selection complete Assessment & Plan Assessment & Plan (1) Bilateral primary osteoarthritis of knee: Code(s): M17.0 - Bilateral primary osteoarthritis of knee Category: Medical Plan I Injected her bilateral knees today, she may follow up no sooner than three month for repeat injection. [employer] PRN Coding Level of Care Code Est Pt Level 3 (84424) Diagnoses Bilateral primary osteoarthritis of knee M17.0 CPT Codes Coding - Large joint: 92946 - Large joint ([id number]) Coding - Joint 7: - Glenohumeral/Tronchanteric Bursa/Intraarticular ([id number])
== END 2024-05-10 11:48 | disposition home or self-care (01) ==
LOC: HO.HOS 11:19
PROVIDERS: Visit Provider Orthopaedic Surgery
DX: M17.0 Bilateral primary osteoarthritis of knee (principal)
CPT/HCPCS: 20610; 99213

== ENCOUNTER → 2024-05-10 11:19 | Outpatient (BNVA) | payer OTHER, SELFPAY | PROVIDERS: Visit Provider Orthopaedic Surgery | DX: M17.0 Bilateral primary osteoarthritis of knee (principal) | CPT/HCPCS: 20610; 99212; J0665; J1100 ==

== ENCOUNTER 2024-05-25 11:02 | Outpatient (AMB) | payer OTHER, SELFPAY ==
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
== END 2024-05-25 12:17 | disposition home or self-care (01) ==
LOC: HO.HOP 11:02
PROVIDERS: PCP Internal Medicine; Visit Provider Clinical Nurse Specialist Psychiatric/Mental Health
DX: F33.1 Major depressive disorder, recurrent, moderate (principal); F43.10 Post-traumatic stress disorder, unspecified; F41.3 Other mixed anxiety disorders; G25.81 Restless legs syndrome; F90.2 Attention-deficit hyperactivity disorder, combined type
CPT/HCPCS: 90792

== ENCOUNTER → 2024-05-25 11:02 | Outpatient (BNVA) | payer OTHER, SELFPAY | PROVIDERS: PCP Internal Medicine; Visit Provider Clinical Nurse Specialist Psychiatric/Mental Health | DX: F33.1 Major depressive disorder, recurrent, moderate (principal); F43.10 Post-traumatic stress disorder, unspecified; F41.3 Other mixed anxiety disorders; G25.81 Restless legs syndrome; F90.2 Attention-deficit hyperactivity disorder, combined type; Z79.899 Other long term (current) drug therapy | CPT/HCPCS: 90792 ==

== ENCOUNTER 2024-06-05 13:31 | Outpatient (AMB) | payer MEDICARE, SELFPAY ==
[2024-06-05 13:36] VITALS: BP 84/50; PULSE 68; O2SAT 96; BMI 17.2
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
== END 2024-06-05 14:39 | disposition home or self-care (01) ==
PROVIDERS: Visit Provider Internal Medicine
DX: Z00.00 Encounter for general adult medical examination without abnormal findings (principal); E03.9 Hypothyroidism, unspecified; F33.1 Major depressive disorder, recurrent, moderate; J44.9 Chronic obstructive pulmonary disease, unspecified; F17.210 Nicotine dependence, cigarettes, uncomplicated; M85.89 Other specified disorders of bone density and structure, multiple sites; F43.10 Post-traumatic stress disorder, unspecified; G25.81 Restless legs syndrome; F41.1 Generalized anxiety disorder; F90.2 Attention-deficit hyperactivity disorder, combined type; E78.5 Hyperlipidemia, unspecified; M81.0 Age-related osteoporosis without current pathological fracture; Z12.11 Encounter for screening for malignant neoplasm of colon

== ENCOUNTER → 2024-06-05 13:31 | Outpatient (BNVA) | payer OTHER, SELFPAY | PROVIDERS: Visit Provider Internal Medicine | DX: Z00.00 Encounter for general adult medical examination without abnormal findings (principal); E03.9 Hypothyroidism, unspecified; F33.1 Major depressive disorder, recurrent, moderate; M85.89 Other specified disorders of bone density and structure, multiple sites; F43.10 Post-traumatic stress disorder, unspecified; G25.81 Restless legs syndrome; Z23 Encounter for immunization; F41.1 Generalized anxiety disorder; F90.2 Attention-deficit hyperactivity disorder, combined type; J44.9 Chronic obstructive pulmonary disease, unspecified; E78.5 Hyperlipidemia, unspecified; M81.0 Age-related osteoporosis without current pathological fracture; F17.210 Nicotine dependence, cigarettes, uncomplicated; Z79.899 Other long term (current) drug therapy; Z71.89 Other specified counseling | CPT/HCPCS: 90471; 90656; 96127; 99396; 99497 ==

== ENCOUNTER 2024-06-12 06:19 | Outpatient (REF) | payer MEDICARE, SELFPAY ==
[2024-06-12 08:30] LABS: Alanine Aminotransferase 20 U/L (0-31); Albumin Level 3.5 g/dL (3.5-5.0); Alkaline Phosphatase 106 U/L (39-117); Anion Gap 12 (12-20); Aspartate Amino Transferase 35 U/L (5-31); Bilirubin Total 0.1 mg/dL (0.0-1.0); Blood Urea Nitrogen 19 mg/dL (9-16); Calcium 8.5 mg/dL (8.4-10.2); Carbon Dioxide 29 mmol/L (22-29); Chloride 103 mmol/L (96-108); Cholesterol 211 mg/dL (<200); Estimated Glomerular Filt Rate > 60; Glucose Fasting 131 mg/dL (60-99); HDL Cholesterol 73 mg/dL (>40); LDL Cholesterol Calculated 118 mg/dL (<100); Potassium 4.8 mmol/L (3.3-5.1); Sodium 139 mmol/L (135-145); Total Protein 6.1 g/dL (6.5-8.0); Triglycerides 102 mg/dL (<150)
[2024-06-12 08:31] LABS: Free T4 (Free Thyroxine) 0.95 ng/dL (0.71-1.85); Thyroid Stimulating Hormone 4.33 uIU/mL (0.32-4.0)
[2024-06-12 08:47] LABS: Folate 12.2 ng/mL (> or = 4.0); Vitamin B12 662 pg/mL (200-900)
[2024-06-17 14:44] LABS: Vitamin D 25-OH, D2 <4 ng/mL; Vitamin D 25-OH, D3 32 ng/mL; Vitamin D 25-OH, Total 32 ng/mL (30-100)
== END 2024-06-12 06:20 | disposition home or self-care (01) ==
LOC: HO.LAB 06:19
PROVIDERS: Absent Provider Clinical Nurse Specialist Psychiatric/Mental Health; PCP Internal Medicine; Visit Provider Internal Medicine
DX: Z79.899 Other long term (current) drug therapy (principal); E03.9 Hypothyroidism, unspecified; D51.9 Vitamin B12 deficiency anemia, unspecified; E55.9 Vitamin D deficiency, unspecified
CPT/HCPCS: 36415; 80053; 80061; 82306; 82607; 82746; 84439; 84443

== ENCOUNTER 2024-06-13 13:35 | Outpatient (AMB) | payer MEDICARE, SELFPAY ==
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
[2024-06-13 13:41] VITALS: BP 110/58; PULSE 75; O2SAT 96; BMI 18.1
== END 2024-06-13 13:58 | disposition home or self-care (01) ==
LOC: HO.HPS 13:36
PROVIDERS: Visit Provider Internal Medicine
DX: F17.200 Nicotine dependence, unspecified, uncomplicated (principal); J44.9 Chronic obstructive pulmonary disease, unspecified
CPT/HCPCS: 99213

== ENCOUNTER → 2024-06-13 13:35 | Outpatient (BNVA) | payer OTHER, SELFPAY | PROVIDERS: Visit Provider Internal Medicine | DX: J44.9 Chronic obstructive pulmonary disease, unspecified (principal); F17.210 Nicotine dependence, cigarettes, uncomplicated | CPT/HCPCS: 99212 ==

== ENCOUNTER 2024-06-21 09:11 | Outpatient (REF) | payer MEDICARE, SELFPAY ==
--- NOTE | ~2024-06-21 | MM_ITS ---
EXAMINATION: MM DIAGNOSTIC DIGITAL BREAST TOMOSYNTHESIS, BILATERAL CLINICAL INFORMATION: Left breast palpable lump and weight loss. COMPARISON: Mammography: Comparison is made with relevant prior exams. TECHNIQUE: Digital breast mammography with tomosynthesis is performed in both the craniocaudal and mediolateral oblique views along with computer-aided detection (CAD). Limited left breast ultrasound. FINDINGS: The breasts are extremely dense, which lowers the sensitivity of mammography (ACR BI-RADS breast composition Category d). BB palpable marker in the lower central left breast without underlying abnormality. There are no significant masses, abnormal calcifications, or other abnormalities. Targeted color Doppler ultrasound of the left breast scanning in the area the patient's palpable lump from 40 8:00 demonstrates an ectatic ducts and normal fibroglandular breast tissue. There is no sonographic abnormality to correlate with the patient's palpable lump. Results are discussed with the patient at time of visit. MM/MM tomosynthesis diagnostic BI IMPRESSION: No mammographic or sonographic abnormality to correlate with the patient's palpable left breast lump. Recommend clinical evaluation and follow-up. If clinical concern persists breast MRI could be considered for further evaluation. Right: Negative. ASSESSMENT: BI-RADS BI-RADS 1 - Negative RECOMMENDATION: 1 year F/U This patient's information was entered into a reminder system with a target due date for their next mammogram. Electronically signed by: Flavia Valdes DO 06/21/2024 09:57 AM [facility]
== END 2024-06-21 09:12 | disposition home or self-care (01) ==
LOC: HO.MAMMO 09:11
PROVIDERS: PCP Internal Medicine; Visit Provider Internal Medicine
DX: N63.25 Unspecified lump in the left breast, overlapping quadrants (principal)
CPT/HCPCS: 76642; 77062; 77066

== ENCOUNTER → 2024-06-21 09:45 | Outpatient (BNV) | payer MEDICARE, SELFPAY | PROVIDERS: PCP Internal Medicine; Visit Provider Internal Medicine | DX: N63.25 Unspecified lump in the left breast, overlapping quadrants (principal) | CPT/HCPCS: 76642; 77066; G0279 ==

== ENCOUNTER 2024-06-22 11:34 | Outpatient (AMB) | payer OTHER, SELFPAY ==
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
== END 2024-06-22 12:27 | disposition home or self-care (01) ==
LOC: HO.HOP 11:34
PROVIDERS: PCP Internal Medicine; Visit Provider Clinical Nurse Specialist Psychiatric/Mental Health
DX: F33.1 Major depressive disorder, recurrent, moderate (principal); F43.11 Post-traumatic stress disorder, acute; F90.2 Attention-deficit hyperactivity disorder, combined type; D51.9 Vitamin B12 deficiency anemia, unspecified; F41.1 Generalized anxiety disorder
CPT/HCPCS: 99215

== ENCOUNTER 2024-06-22 14:22 | Outpatient (REF) | payer MEDICARE, SELFPAY ==
--- NOTE | ~2024-06-22 | MM_ITS ---
EXAMINATION: BONE DENSITOMETRY CLINICAL INDICATION: Other specified disorders of bone and structure. COMPARISON: Baseline BD dated 04/27/2019. TECHNIQUE: Using a [employer] DXA System (software version: 13.1) manufactured by [employer], dual-energy x-ray absorptiometry was performed of the lumbar spine and left hip. The images are of good technical quality. Summary results are attached. FINDINGS: LEFT FEMUR, NECK: Current: BMD 0.718 g/cm2, Z-score -0.6, T-score -2.3, osteopenia. Baseline: BMD 0.766 g/cm2. LEFT FEMUR, TOTAL: Current: BMD 0.704 g/cm2, Z-score -0.9, T-score -2.4, osteopenia, 9.5% decrease from baseline (<5% change is not significant). Baseline: BMD 0.778 g/cm2. AP SPINE L1-L4: Current: BMD 1.033 g/cm2, Z-score 0.7, T-score -1.2, osteopenia, 10.3% decrease from baseline (<5% change is not significant). Baseline: BMD 1.152 g/cm2. IDENTIFIED RISK FACTORS: Early menopause, secondary osteoporosis, history of fracture (adult), low body weight, osteoporosis, current smoker. HISTORY OF FRACTURE: Shoulder. MEDICATIONS: Vitamin D. MM/XR DEXA axial skeleton IMPRESSION: 1. DIAGNOSIS: Osteopenia based on the lowest T-score value of -2.4 in the total femur applying World Health Organization criteria. 2. 10-YEAR FRACTURE RISK PREDICTION, FRAX: Major osteoporotic fracture (clinical spine, forearm, hip or shoulder) 17.1%. Hip fracture 5.3%. 3. Treatment Recommendations: NOF guidelines recommend consideration for treatment in postmenopausal women and men age 50 and older presenting with the following: -A hip or vertebral (clinical or morphometric) fracture. -T-score less than or equal to -2.5 at the femoral neck or spine after appropriate evaluation to exclude secondary causes. -Low bone mass at the hip or spine and a 10-year fracture probability by FRAX of greater than or equal to 3% for hip fracture or greater than or equal to 20% for major osteoporotic fracture based on the [place] adapted WHO algorithm. 4. Other Recommendations: All treatment decisions require clinical judgment and consideration of individual patient factors, including patient preferences, comorbidities, previous drug use, risk factors not captured in the FRAX model (e.g. frailty, falls, vitamin D deficiency, increased bone turnover, interval significant decline in bone density) and possible under or overestimation of fracture risk by FRAX. Additional medical evaluation for secondary cause of low bone mineral density may be appropriate. FUTURE SCAN RECOMMENDATION: People with diagnosed cases of osteoporosis or at high risk for fracture should have regular bone mineral density tests. For patients eligible for Medicare, routine testing is allowed once every 2 years. The testing frequency can be increased to one year for patients who have rapidly progressing disease, those who are receiving or discontinuing medical therapy to restore bone mass, or have additional risk factors. Electronically signed by: Herson Mccullough MD 06/27/2024 04:19 PM [facility]
== END 2024-06-22 14:23 | disposition home or self-care (01) ==
LOC: HO.MAMMO 14:22
PROVIDERS: Visit Provider Internal Medicine
DX: M85.89 Other specified disorders of bone density and structure, multiple sites (principal); E89.40 Asymptomatic postprocedural ovarian failure
CPT/HCPCS: 77080

== ENCOUNTER 2024-06-25 08:13 | Outpatient (AMB) | payer MEDICARE, SELFPAY ==
[2024-06-25 08:58] VITALS: BP 102/58; PULSE 74; O2SAT 96; BMI 18.3
--- NOTE | 2024-06-25 08:58 | MHC.PC.OV ---
Vital Signs 06/25/24 08:58 Height 5 ft 1 in Weight 97 lb BMI 18.3 BP 102/58 L Blood Pressure Location Rt brachial Position Sitting Pulse 74 Pulse Source Pulse Oximeter Pulse Oximetry (%) 96 Oxygen Delivery Method Room Air Intake Visit Reasons: Followup pain Intake Note: Pt is here today c/o of pain under Lt breast ?cyst: Pt states had a recent mammogram 06/20/24 and a u/s Lt breast Allergies olanzapine [From ZYPREXA] Adverse Reaction (Intermediate, Verified 06/25/24 09:42) RLS symptoms clonidine Adverse Reaction (Verified 06/25/24 09:42) RLS diphenhydramine [From Benadryl] Adverse Reaction (Verified 06/25/24 09:42) RLS hydroxyzine Adverse Reaction (Verified 06/25/24 09:42) RLS melatonin Adverse Reaction (Verified 06/25/24 09:42) RLS atypical antipsychotics Adverse Reaction (Severe, Uncoded 06/25/24 09:42) This class appears to potentiate RLS/Akathesia Medication List - Last Reconciled 06/25/24 by Tonya Sarmiento MD albuterol sulfate 90 mcg/actuation (Ventolin HFA) 2 puffs inhalation Q4-6H PRN 30 days cholecalciferol (vitamin D3) 100 mcg (2 x 50 mcg (2,000 unit)) PO DAILY clonazepam (Klonopin) 0.5 mg PO BEDTIME PRN 30 days docusate sodium 100 mg PO BID PRN 30 days guanfacine ER 1 mg PO QID 30 days levothyroxine 50 mcg PO DAILY@0600 30 days modafinil 200 mg PO QAM pramipexole 0.5 mg PO TID 30 days pregabalin 150 mg PO BID 30 days pregabalin 200 mg PO BEDTIME 30 days Tobacco use date assessed: 06/25/24 Dental Screening Dental Screen Date: 06/05/24 Did you have a dental visit in the last 12 months?: Yes Did you have a dental problem in the last 6 months where you did not have access to dental care?: Yes Was dental information given to patient?: Patient has dentist HPI Followup pain HPI Details 63-year-old lady here today for follow-up regarding pain under left breast. Breast ultrasound showed presence of breast ectasia on the affected side. 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 Post-traumatic stress disorder, unspecified ADHD Hypothyroidism Generalized anxiety disorder MDD (major depressive disorder), recurrent episode Polysubstance use disorder Cannabis use disorder Nicotine dependence, cigarettes, uncomplicated Cocaine use disorder Acute medication-induced akathisia Osteopenia of multiple sites Skin lesion of back Syncope Bipolar disorder Type II diabetes mellitus Fibromyalgia Benzodiazepine abuse RLS (restless legs syndrome) COPD (chronic obstructive pulmonary disease) HLD (hyperlipidemia) Surgical History History of vaginal hysterectomy History of cataract surgery Family History Mother CAD (coronary artery disease) Father Alcoholism Son Substance use disorder Son Substance use disorder Social History Household Members: Unknown / Unable to assess Household Members Other:: son's girlfriend Housing: Unknown / Unable to assess Do you presently have visiting nurse or other home services: No Unable to assess alcohol history related to: Unknown Alcohol intake: never Comment: Pt reports falling d/t excessive intake of Benzo's prior to admission Patient Tobacco Use Status: Current someday Tobacco user Tobacco use type: Cigarette Cigarette Packs Per Day: 1 Cigarettes Per Day: 20.0 Years Smoked: 45 e-Cigarette/Vaping Use: Never Used Second Hand Smoke Exposure: No Substance Use Type: Marijuana service: No Current occupational status: unemployed Sexual orientation: Straight/Heterosexual Cognitive needs: No Hearing needs: No Vision needs: No Questionnaire Thrive Questionnaire Date Thrive assessed: 06/05/24 I am a: Patient What is your living situation today?: I choose not to answer this question Within the past 12 months, did the food you bought not last and you didn't have the money to get more?: Never true Within the past 12 months, did you worry whether your food would run out before you got money to buy more?: Never true Do you have trouble paying for medicines?: No Do you have trouble getting transportation to medical appointments?: Yes Do you have trouble paying your heating and electricity bill?: Yes Do you have trouble taking care of your child, family member or friend?: No Do you have trouble with day-to-day activities such as bathing, preparing meals, shopping, managing finances, etc.?: No Are you currently unemployed and looking for a job?: No Are you interested in more education?: No Please select the resources that you would like help with: Housing/Halfway THRIVE Score: 2 MARY-7 AMB Questionnaire MARY-7 Date MARY - 7 assessed: 06/05/24 Source: Developed by Drs. Darion Garcia, Wilma Slater, Vernno Mayorga and colleagues, with an educational eloy from [employer]. Review of Systems Const All systems reviewed & are unremarkable except as noted in HPI and below Physical exam (Primary Care) Vital Signs: Last Vital Signs Pulse 74 06/25/24 08:58 BP 102/58 L 06/25/24 08:58 Pulse Ox 96 06/25/24 08:58 Oxygen Delivery Method Room Air 06/25/24 08:58 BMI result Body Mass Index 18.3 Tobacco/Smoking Status: Tobacco use Status Tobacco use date assessed 06/25/24 06/25/24 09:05 Patient Tobacco Use Status Current someday Tobacco 06/25/24 09:05 Tobacco use type Cigarette 06/25/24 09:05 e-Cigarette/Vaping Use Never Used 06/25/24 09:05 Thrive Assessment: Date of Thrive Assessment Date Thrive assessed 06/05/24 06/25/24 09:05 Neck Other: Thyroid nonpalpable Neck: Yes full ROM, Yes no lymphadenopathy and Yes supple Chest Chest palpation & inspection: normal inspection of the chest Breast/axilla inspection: normal inspection of the breasts Breast/axilla palpation: other (Slight tenderness on palpation along have o'clock position of left breast) Resp Auscultation: clear to auscultation bilaterally Skin General skin exam: no rashes or lesions noted Coding Level of Care Code Est Pt Level 4 (36362) Diagnoses Mammary duct ectasia of left breast N60.42 Acquired hypothyroidism E03.9 Hypothyroidism type: acquired Assessment & Plan Assessment & Plan (1) Mammary duct ectasia of left breast: Code(s): N60.42 - Mammary duct ectasia of left breast Plan: Explained to patient this is a benign finding,a non-cancerous condition that occurs when a milk duct in the breast widens and thickens,. It is, in women who have gone through menopause and improves without treatment. For pain. Mild pain relievers such as Tylenol or ibuprofen can help with breast discomfort. This is not a risk factor for breast cancer (2) Hypothyroidism: Code(s): E03.9 - Hypothyroidism, unspecified Category: Medical Qualifiers: Hypothyroidism type: acquired Qualified Code(s): E03.9 - Hypothyroidism, unspecified Plan: Ordered TSH and free T4 levels in six-month currently on levothyroxine 50 mcg daily Orders: Orders Hemoglobin A1c 12/13/24 E03.9 - Hypothyroidism, unspecified, E11.9 - Type 2 diabetes mellitus without complications, E78.5 - Hyperlipidemia, unspecified, M81.0 - Age-related osteoporosis without current pathological fracture Basic Metabolic Panel Fasting 12/13/24 E03.9 - Hypothyroidism, unspecified, E11.9 - Type 2 diabetes mellitus without complications, E78.5 - Hyperlipidemia, unspecified, M81.0 - Age-related osteoporosis without current pathological fracture Aspartate Amino Transferase 12/13/24 E03.9 - Hypothyroidism, unspecified, E11.9 - Type 2 diabetes mellitus without complications, E78.5 - Hyperlipidemia, unspecified, M81.0 - Age-related osteoporosis without current pathological fracture Alanine Aminotransferase 12/13/24 E03.9 - Hypothyroidism, unspecified, E11.9 - Type 2 diabetes mellitus without complications, E78.5 - Hyperlipidemia, unspecified, M81.0 - Age-related osteoporosis without current pathological fracture Vitamin B12 and Folate 12/13/24 E03.9 - Hypothyroidism, unspecified, E11.9 - Type 2 diabetes mellitus without complications, E78.5 - Hyperlipidemia, unspecified, M81.0 - Age-related osteoporosis without current pathological fracture Thyroid Stimulating Hormone 12/13/24 E03.9 - Hypothyroidism, unspecified, E11.9 - Type 2 diabetes mellitus without complications, E78.5 - Hyperlipidemia, unspecified, M81.0 - Age-related osteoporosis without current pathological fracture Lipid Panel 12/13/24 E03.9 - Hypothyroidism, unspecified, E11.9 - Type 2 diabetes mellitus without complications, E78.5 - Hyperlipidemia, unspecified, M81.0 - Age-related osteoporosis without current pathological fracture Microalbumin, Random (w Creat) 12/13/24 E03.9 - Hypothyroidism, unspecified, E11.9 - Type 2 diabetes mellitus without complications, E78.5 - Hyperlipidemia, unspecified, M81.0 - Age-related osteoporosis without current pathological fracture Vitamin D 25-OH Total 12/13/24 E03.9 - Hypothyroidism, unspecified, E11.9 - Type 2 diabetes mellitus without complications, E78.5 - Hyperlipidemia, unspecified, M81.0 - Age-related osteoporosis without current pathological fracture Free T4 (Free Thyroxine) 12/13/24 E03.9 - Hypothyroidism, unspecified, E11.9 - Type 2 diabetes mellitus without complications, E78.5 - Hyperlipidemia, unspecified, M81.0 - Age-related osteoporosis without current pathological fracture
== END 2024-06-25 09:48 | disposition home or self-care (01) ==
PROVIDERS: PCP Internal Medicine; Visit Provider Internal Medicine
DX: N60.42 Mammary duct ectasia of left breast (principal); E03.9 Hypothyroidism, unspecified

== ENCOUNTER → 2024-06-25 08:13 | Outpatient (BNVA) | payer MEDICARE, SELFPAY | PROVIDERS: PCP Internal Medicine; Visit Provider Internal Medicine | DX: N60.42 Mammary duct ectasia of left breast (principal); E03.9 Hypothyroidism, unspecified | CPT/HCPCS: 99212 ==

== ENCOUNTER 2024-07-17 09:24 | Outpatient (AMB) | payer OTHER, SELFPAY ==
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
== END 2024-07-17 10:27 | disposition home or self-care (01) ==
LOC: HO.HOP 09:24
PROVIDERS: PCP Internal Medicine; Visit Provider Clinical Nurse Specialist Psychiatric/Mental Health
DX: F33.1 Major depressive disorder, recurrent, moderate (principal); F43.11 Post-traumatic stress disorder, acute; F90.8 Attention-deficit hyperactivity disorder, other type; F41.1 Generalized anxiety disorder; F90.2 Attention-deficit hyperactivity disorder, combined type
CPT/HCPCS: 99215

== ENCOUNTER 2024-07-20 10:02 | Outpatient (AMB) | payer MEDICARE, SELFPAY ==
--- NOTE | 2024-07-20 07:50 | MHC.OFFVIS ---
Intake Visit Reasons: Current Smoker Allergies olanzapine [From ZYPREXA] Adverse Reaction (Intermediate, Verified 06/25/24 09:42) RLS symptoms clonidine Adverse Reaction (Verified 06/25/24 09:42) RLS diphenhydramine [From Benadryl] Adverse Reaction (Verified 06/25/24 09:42) RLS hydroxyzine Adverse Reaction (Verified 06/25/24 09:42) RLS melatonin Adverse Reaction (Verified 06/25/24 09:42) RLS atypical antipsychotics Adverse Reaction (Severe, Uncoded 06/25/24 09:42) This class appears to potentiate RLS/Akathesia HPI HPI Current Smoker: Details: Initial visit for this 63yo smoker with a 23PYH. Patient started smoking at age 17 for 46 years at 1/2ppd. . Denies marijuana use. Denies second hand smoke exposure. Denies exposure to chemicals or substances like asbestos. . Denies known family history of lung cancer. Denies personal history of cancers. Denies chest CT in last year. . Denies recent travel outside the [place]. Denies recent respiratory illness or recent hospitalization for respiratory issues. Reports testing positive for COVID. Was Mild. Admits receiving COVID Vaccine. x3. . Denies fever, chills, new/worsening cough, hemoptysis, hoarseness or dysphagia. Denies significant chest pain, significant dyspnea or unintentional weight loss. Patient Lung Cancer Screening Questionnaire reviewed with patient by provider. . Shared Decision Making Completed. Patient meets criteria. Discussed in detail with patient, the risk vs benefit of LDCT screening. Patient consents to proceed with scan. Discussed smoking cessation. [facility] Medical History (Updated 07/20/24 @ 10:11 by Cele Meehan PA-C) Nicotine dependence, cigarettes, uncomplicated Bipolar disorder, current episode depressed, moderate Misuse of prescription only drugs 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 mutation [id number] Post-traumatic stress disorder, unspecified ADHD Hypothyroidism Generalized anxiety disorder MDD (major depressive disorder), recurrent episode Polysubstance use disorder Cannabis use disorder Cocaine use disorder Acute medication-induced akathisia Osteopenia of multiple sites Skin lesion of back Syncope Type II diabetes mellitus Fibromyalgia Benzodiazepine abuse RLS (restless legs syndrome) COPD (chronic obstructive pulmonary disease) HLD (hyperlipidemia) Surgical History History of vaginal hysterectomy History of cataract surgery Family History Mother CAD (coronary artery disease) Father Alcoholism Son Substance use disorder Son Substance use disorder Social History Household Members: Unknown / Unable to assess Household Members Other:: son's girlfriend Housing: Unknown / Unable to assess Do you presently have visiting nurse or other home services: No Unable to assess alcohol history related to: Unknown Alcohol intake: never Comment: Pt reports falling d/t excessive intake of Benzo's prior to admission Patient Tobacco Use Status: Current someday Tobacco user Tobacco use type: Cigarette Cigarette Packs Per Day: 1 Cigarettes Per Day: 20.0 Years Smoked: 45 e-Cigarette/Vaping Use: Never Used Second Hand Smoke Exposure: No Substance Use Type: Marijuana service: No Current occupational status: unemployed Sexual orientation: Straight/Heterosexual Cognitive needs: No Hearing needs: No Vision needs: No Assessment & Plan Assessment & Plan (1) Nicotine dependence, cigarettes, uncomplicated: Comment: (onset 17yo, 1/2ppd x 46yrs, 23pyh) Code(s): F17.210 - Nicotine dependence, cigarettes, uncomplicated Category: Medical Plan: - SDM visit completed today in office. - Patient meets criteria for LDCT for lung cancer screening purposes and is asymptomatic. - Smoking cessation counseling offered. Patients can always call [phone]. - Will arrange for a LDCT scan of the chest for screening purposes at [facility]. - Risks, benefits, and alternatives were discussed in detail and the patient agrees to proceed. - Risks discussed include but are not limited to: radiation exposure, anxiety during testing and while awaiting results, false negatives, false positives and possibility of additional intervention such as further imaging or surgical procedures for benign disease. - Benefits are obviously detection of lung cancer at an early stage which can lead to improved outcomes. - Discussed the importance of screening program compliance with adherence to yearly LDCT scan as scheduled - or sooner interval scans for personalized screening regimen. - Discussed follow up plan. Our office will send a letter discussing results and if needed set up phone call and office visit based on CT findings. - Patient educated on results categorization and the management decisions for suspicious findings potentially found on the screening LDCT scan. Any patient with a Lung RADS score of 3 or 4 will be reviewed by a multidisciplinary team at [facility] to form a plan of action in regards to scan findings. - If further work up is warranted for a suspicious lung finding this will be followed by the Lung Cancer Screening program in conjunction with the Thoracic Surgery Department at [facility]. - A copy of the office note and LDCT will be sent to the patient's PCP - as well as documentation on any associated further plans of care. - Incidental findings on LDCT are the PCP's responsibility. These findings are indicated with an S finding on the LDCT Assessment. A note discussing the findings will be sent to the PCP who is then responsible for further management. - All questions answered.? Coding Level of Care Code Lung Cancer Screening G0296 Diagnoses Nicotine dependence, cigarettes, uncomplicated F17.210
--- OUTSIDE RECORDS SUMMARY | 2024-07-25 07:15 | XMS_ITS | Clinical Summary ---
Author Organization Unknown Care Team Providers Care Sonoscope Operator Name Role Phone SYDCHRISTOPHER BERRY, SHWAN Unavailable Unavailable CORTES GALVIN, MCKENZIE Unavailable Unavailable Payers Payer Name Policy Type Policy Number Effective Date Expira tion Date [place]ID [place] [facility] [id number] [facility] [place] [facility] [id number] [facility] [id number] MEDICARE - [facility] [id number] Problems Condition Name Condition Details Condition Category Status Onset Date Resolution Date Last Treatment Date Treating Clinician Comments BIPOLAR DISORDER, UNSPECIFIED Active 12-03 00:00: 00 Allergies, Adverse Reactions, Alerts Allergy Name Allergy Type Status Severity Reaction(s) Onset Date Inactive Date Treating Clinician Comments NKA Propensity to adverse reactions Active 2022-12 13:03:5 9 Medications Ordered Medication Name Filled Medication Name Start Date Stop Date Current Medication? Ordering Clinician Indication Dosage Frequency Signature (SIG) Comments Components mirtazapine 7.5 mg tablet 11-11 00:00: 00 Yes [id number] Per instruc tions AT BEDTIME Per instructio ns AT BEDTIME (route: oral) Med Classific ation: Central Nervous System Agents oxcarbazepi ne 300 mg tablet 11-11 00:00: 00 Yes [id number] Per instruc tions TWICE A DAY Per instructio ns TWICE A DAY (route: oral) Med Classific ation: Central Nervous System Agents pramipexole 0.25 mg tablet 11-07 00:00: 00 Yes [id number] Per instruc tions TWICE A DAY Per instructio ns TWICE A DAY (route: oral) Med Classific ation: Central Nervous System Agents atorvastati n 20 mg tablet 12-27 00:00: 00 Yes [id number] 1 tablet BEDTIME 1 tablet BEDTIME (route: oral) Med Classific ation: Cardiovas cular Therapy Agents levothyroxi ne 50 mcg capsule 12-27 00:00: 00 Yes [id number] 1 capsule DAILY 1 capsule DAILY (route: oral) Med Classific ation: Endocrine metformin 500 mg tablet 12-27 00:00: 00 Yes [id number] 1 tablet 2 TIMES DAILY 1 tablet 2 TIMES DAILY (route: oral) Med Classific ation: Endocrine sertraline 50 mg tablet 12-27 00:00: 00 Yes [id number] 1 tablet DAILY 1 tablet DAILY (route: oral) Med Classific ation: Central Nervous System Agents Vital Signs Vital Name Observation Time Observation Value Commen ts BMI (%) 2022-12-27 13:04:00.000 21 kg/m2 Height 2022-12-27 13:04:00.000 62 [in_us] Pulse 2023-01-25 13:17:00.000 78 /min Pulse 2023-01-18 12:02:00.000 68 /min Pulse 2022-12-27 13:04:00.000 98 /min Respirations 2023-01-25 13:17:00.000 18 /min Respirations 2023-01-18 12:02:00.000 18 /min Respirations 2022-12-27 13:04:00.000 16 /min Weight (lbs) 2022-12-27 13:04:00.000 115 [lb_av] Systolic Blood Pressure 2023-01-25 13:17:00.000 110 mm [Hg] Systolic Blood Pressure 2023-01-18 12:02:00.000 100 mm [Hg] Systolic Blood Pressure 2022-12-27 13:04:00.000 100 mm [Hg] Diastolic Blood Pressure 2023-01-25 13:17:00.000 60 mm [Hg] Diastolic Blood Pressure 2023-01-18 12:02:00.000 60 mm [Hg] Diastolic Blood Pressure 2022-12-27 13:04:00.000 60 mm [Hg] Plan of Treatment Planned Activity Planned Date Details Comments Future Scheduled Test SKILLED NU RSE TO EVALUATE PATIENT, IDENTIFY PRIMARY AND CO-MORBID CONDITIONS CODED PER CODING GUIDELINES, AND DEVELOP PATIENT SPECIFIC PLAN OF CARE THAT INCLUDES PATIENT GOAL FOR HOME HEALTH. PATIENT ADMITTED TO DETENTION SERVICES RELTED TO MENTAL HEALTH. 62/F WITH MOOD DISORDER AND DIABETES. PATIENT REQUIRES DETENTION VISITS FOR MEDICATION MANAGEMENT, EDUCATION RELATED TO THE DISEASE PROCESS, VITAL SIGN MONITORING, COPING SKILL DEVELOPMENT AND REVIEW, ASSESSMENT AND OBSERVATION OF MENTAL, PHYSICAL AND PSYCHOSOCIAL STATUS. [code = SKILLED NURSE TO EVALUATE PATIENT, IDENTIFY PRIMARY AND CO-MORBID CONDITIONS CODED PER CODING GUIDELINES, AND DEVELOP PATIENT SPECIFIC PLAN OF CARE THAT INCLUDES PATIENT GOAL FOR HOME HEALTH. PATIENT ADMITTED TO DETENTION SERVICES RELTED TO [facility]. 62/F WITH MOOD DISORDER AND DIABETES. PATIENT REQUIRES DETENTION VISITS FOR MEDICATION MANAGEMENT, EDUCATION RELATED TO THE DISEASE PROCESS, VITAL SIGN MONITORING, COPING SKILL DEVELOPMENT AND REVIEW, ASSESSMENT AND OBSERVATION OF MENTAL, PHYSICAL AND PSYCHOSOCIAL STATUS.] Future Scheduled Test SKILLED NU RSE TO O/A OF PATIENTS MENTAL/BEHAVIORAL STATUS, ASSESS VITAL SIGNS MONTHLY AND PRN ALLOW 2 PRNS FOR MEDICATION MANAGEMENT. [code = SKILLED NURSE TO O/A OF PATIENTS MENTAL/BEHAVIORAL STATUS, ASSESS VITAL SIGNS MONTHLY AND PRN ALLOW 2 PRNS FOR MEDICATION MANAGEMENT.] Future Scheduled Test SKILLED NU RSE FOR O/A OF GENERAL HEALTH STATUS OF PAIN, CARDIAC, RESPIRATORY, GASTROINTESTINAL, GENITOURINARY, SKIN, NEUROLOGIC, ENDOCRINE SYSTEMS TO IDENTIFY CHANGES ASSOCIATED WITH EXACERBATION FOR EARLY INTERVENTION OF COMPLICATIONS [code = SKILLED NURSE FOR O/A OF GENERAL HEALTH STATUS OF PAIN, CARDIAC, RESPIRATORY, GASTROINTESTINAL, GENITOURINARY, SKIN, NEUROLOGIC, ENDOCRINE SYSTEMS TO IDENTIFY CHANGES ASSOCIATED WITH EXACERBATION FOR EARLY INTERVENTION OF COMPLICATIONS ] Future Scheduled Test SKILLED NU RSE FOR O/A AND SKILLED TEACHING RELATED TO MANAGEMENT OF DEPRESSIVE SYMPTOMS AND/OR DEPRESSION. SN TO REPORT SIGNIFICANT CHANGE IN DEPRESSIVE SYMPTOMS TO CLINICAL PROVIDER FOR EARLY INTERVENTION. [code = SKILLED NURSE FOR O/A AND SKILLED TEACHING RELATED TO MANAGEMENT OF DEPRESSIVE SYMPTOMS AND/OR DEPRESSION. SN TO REPORT SIGNIFICANT CHANGE IN DEPRESSIVE SYMPTOMS TO CLINICAL PROVIDER FOR EARLY INTERVENTION.] Future Scheduled Test SKILLED NU RSE FOR O/A OF PATIENT'S RISK FOR VIOLENCE (TOWARD SELF OR OTHERS) AND TO PROVIDE INTERVENTION TECHNIQUES TO PROMOTE SAFETY TO PATIENT AND OTHERS [code = SKILLED NURSE FOR O/A OF PATIENT'S RISK FOR VIOLENCE (TOWARD SELF OR OTHERS) AND TO PROVIDE INTERVENTION TECHNIQUES TO PROMOTE SAFETY TO PATIENT AND OTHERS] Future Scheduled Test SKILLED NU RSE FOR O/A AND SKILLED TEACHING OF COPING SKILLS TO MANAGE ANXIETY AND MAINTAIN SAFETY [code = SKILLED NURSE FOR O/A AND SKILLED TEACHING OF COPING SKILLS TO MANAGE ANXIETY AND MAINTAIN SAFETY ] Future Scheduled Test SKILLED NU RSE FOR O/A AND TEACHING OF ENDOCRINE SYSTEM TO IDENTIFY CHANGES ASSOCIATED WITH EXACERBATION OF DIABETES FOR EARLY INTERVENTION OF COMPLICATIONS. [code = SKILLED NURSE FOR O/A AND TEACHING OF ENDOCRINE SYSTEM TO IDENTIFY CHANGES ASSOCIATED WITH EXACERBATION OF DIABETES FOR EARLY INTERVENTION OF COMPLICATIONS.] Future Scheduled Test SKILLED NU RSE FOR O/A OF CLIENT'S KNOWLEDGE OF DISEASE PROCESS AND MANAGEMENT. MAY TEACH DISEASE MANAGEMENT TECHNIQUES DESIGNED TO INCREASE CLIENT'S FUNCTIONAL STATUS. [code = SKILLED NURSE FOR O/A OF CLIENT'S KNOWLEDGE OF DISEASE PROCESS AND MANAGEMENT. MAY TEACH DISEASE MANAGEMENT TECHNIQUES DESIGNED TO INCREASE CLIENT'S FUNCTIONAL STATUS.] Future Scheduled Test SKILLED NU RSE TO REVIEW PATIENT MEDICATIONS. INSTRUCT PATIENT/CAREGIVER ON MONITORING OF EFFECTIVENESS, ADVERSE DRUG REACTIONS, SIDE EFFECTS OF ALL MEDICATIONS (PRESCRIPTION/-OTC), AND HOW AND WHEN TO REPORT PROBLEMS. [code = SKILLED NURSE TO REVIEW PATIENT MEDICATIONS. INSTRUCT PATIENT/CAREGIVER ON MONITORING OF EFFECTIVENESS, ADVERSE DRUG REACTIONS, SIDE EFFECTS OF ALL MEDICATIONS (PRESCRIPTION/-OTC), AND HOW AND WHEN TO REPORT PROBLEMS. ] Future Scheduled Test SKILLED NU RSE FOR OBSERVATION AND ASSESSMENT OF PATIENTS PAIN LEVEL AND EFFECTIVENESS OF PAIN MANAGEMENT REGIMEN. SKILLED NURSE TO INSTRUCT PATIENT/CAREGIVER REGARDING PHARMACOLOGIC AND NON-PHARMACOLOGIC PAIN CONTROL MEASURES. SKILLED NURSE TO REPORT TO PHYSICIAN IF PAIN IS UNCONTROLLED WITH CURRENT PAIN MANAGEMENT REGIMEN. [code = SKILLED NURSE FOR OBSERVATION AND ASSESSMENT OF PATIENTS PAIN LEVEL AND EFFECTIVENESS OF PAIN MANAGEMENT REGIMEN. SKILLED NURSE TO INSTRUCT PATIENT/CAREGIVER REGARDING PHARMACOLOGIC AND NON-PHARMACOLOGIC PAIN CONTROL MEASURES. SKILLED NURSE TO REPORT TO PHYSICIAN IF PAIN IS UNCONTROLLED WITH CURRENT PAIN MANAGEMENT REGIMEN.] Future Scheduled Test SKILLED NU RSE TO PROVIDE INSTRUCTION ON FALL PREVENTION MEASURES. [code = SKILLED NURSE TO PROVIDE INSTRUCTION ON FALL PREVENTION MEASURES.] Future Scheduled Test SKILLED NU RSE FOR O/A OF LOWER EXTREMITIES TO IDENTIFY CHANGES OR LESIONS ASSOCIATED WITH DIABETES MELLITUS FOR EARLY INTERVENTIONS OF COMPLICATIONS. SKILLED NURSE TO PROVIDE INSTRUCTION ON PROPER DIABETIC SKIN/FOOT CARE. [code = SKILLED NURSE FOR O/A OF LOWER EXTREMITIES TO IDENTIFY CHANGES OR LESIONS ASSOCIATED WITH DIABETES MELLITUS FOR EARLY INTERVENTIONS OF COMPLICATIONS. SKILLED NURSE TO PROVIDE INSTRUCTION ON PROPER DIABETIC SKIN/FOOT CARE. ] Future Scheduled Test PATIENT MA Y HAVE ONE SET OF EMERGENCY MEDICATION NOT TO BE PRE-POURED ANY SOONER THAN 24 HOURS BEFORE SEVERE INCLEMENT WEATHER AND FOLLOWING SKILLED NURSE EVALUATION OF PATIENT SAFETY. [code = PATIENT MAY HAVE ONE SET OF EMERGENCY MEDICATION NOT TO BE PRE-POURED ANY SOONER THAN 24 HOURS BEFORE SEVERE INCLEMENT WEATHER AND FOLLOWING SKILLED NURSE EVALUATION OF PATIENT SAFETY.] Future Scheduled Test SKILLED NU RSE MAY PICKUP AND TRANSPORT MEDICATIONS [code = SKILLED NURSE MAY PICKUP AND TRANSPORT MEDICATIONS] Goal 2023-02-01 Patient Goal - I WILL BE ABLE TO BE MEDICATION COMPLIANT AND STABLE ATLEAST 6 MONTHS Goal Provider Goal - A PLAN OF CARE WILL BE ESTABLISHED THAT MEETS PATIENT'S DETENTION NEEDS AND INCLUDES PATIENT GOAL FOR HOME HEALTH. Goal Provider Goal - ALTERED MENTAL/BEHAVIORAL STATUS WILL BE IDENTIFIED PROMPTLY AND INTERVENTION INITIATED QUICKLY TO MINIMIZE ASSOCIATED RISKS Goal Provider Goal - CHANGE IN GENERAL HEALTH STATUS WILL BE IDENTIFIED AND REPORTED TO PHYSICIAN FOR PROMPT INTERVENTION TO MINIMIZE ASSOCIATED RISKS THROUGHOUT CERTIFICATION PERIOD. Goal Provider Goal - PATIENT WILL REMAIN SAFE WITHOUT DECOMPENSATION IN DEPRESSIVE CONDITION, WHILE MAINTAINING OPTIMAL LEVEL OF MENTAL HEALTH AND WELL BEING. Goal Provider Goal - PATIENT WILL REMAIN SAFE IN COMMUNITY WITHOUT EVIDENCE OF INJURY/HARM TO SELF OR OTHERS Goal Provider Goal - PATIENT WILL BE ABLE TO PERFORM DAILY FUNCTIONS AND HAVE OPTIMAL IMPROVEMENT IN LEVEL OF ANXIETY Goal Provider Goal - PATIENT/CAREGIVER WILL VERBALIZE SIGNS AND SYMPTOMS OF EXACERBATION OF DIABETES TO REPORT TO NURSE/PHYSICIAN THROUGHOUT THE CERTIFICATION PERIOD. Goal Provider Goal - PATIENT WILL DEMONSTRATE IMPROVED MANAGEMENT SKILLS IN DEALING WITH CURRENT DISEASE PROCESS BY THE END OF THE CERTIFICATION PERIOD. Goal Provider Goal - PATIENT/CAREGIVER WILL VERBALIZE UNDERSTANDING OF EDUCATION PROVIDED ON MEDICATIONS BY THE END OF THE CERTIFICATION PERIOD. Goal Provider Goal - INCREASED PAIN OR INEFFECTIVE PAIN CONTROL MEASURES WILL BE IDENTIFIED AND PROMPTLY REPORTED TO PHYSICIAN THROUGHOUT THE CERTIFICATION PERIOD. Goal Provider Goal - PATIENT/CAREGIVER DEMONSTRATES UNDERSTANDING OF FALL PREVENTION MEASURES BY THE END OF THE CERTIFICATION PERIOD. Goal Provider Goal - CHANGES IN LOWER EXTREMITIES WILL BE IDENTIFIED AND REPORTED TO MD FOR PROMPT INTERVENTION TO PREVENT ASSOCIATED RISKS THROUGHOUT THE CERTIFICATION PERIOD. PATIENT/CAREGIVER WILL VERBALIZE UNDERSTANDING OF PROPER DIABETIC SKIN/FOOT CARE BY THE END OF THE CERTIFICATION PERIOD. Reason for Visit INDEPENDENT IN THE COMMUNITY Encounters Start Date/Time End Date/Time Encounter Type Admission Type Attending [facility] Care Department Encounter ID Discharge Date Discharge Status Discharge Condition Discharge Reason Percent Goals Met 2022-12-27 00:00:00 2023-02-01 00:00:00 Outpatient NEW ADMISSION [facility]EN[facility]IE [facility] [id number] 00:00:00 DISCHARGE TO HOME OR SELF CARE INDEPENDEN T IN THE COMMUNITY CHANGE IN PAYOR SOURCE, WILL NOT BE READMITTED 25.93
== END 2024-07-20 13:28 | disposition home or self-care (01) ==
PROVIDERS: Visit Provider Physician Assistant Medical
DX: F17.210 Nicotine dependence, cigarettes, uncomplicated (principal)
CPT/HCPCS: G0296

== ENCOUNTER 2024-07-20 10:22 | Outpatient (REF) | payer OTHER, SELFPAY ==
--- NOTE | ~2024-07-20 | CT_ITS ---
EXAMINATION: CT LOW-DOSE SCREENING CHEST WITHOUT CONTRAST CLINICAL INFORMATION: Personal history of nicotine dependence. The patient is a current smoker with a 22 pack-year history of smoking. COMPARISON: X-ray chest 07/26/2023. TECHNIQUE: Multidetector volumetric CT imaging of the chest is performed on a Siemens SOMATOM Definition scanner without contrast using low dose technique. Additional 2D coronal and sagittal reformatted images and axial 3D maximum intensity projection (MIP) images are generated on the CT workstation. This CT examination was performed using dose optimization techniques as appropriate, variously including the following: *Automated exposure control *Adjustment of mA and/or kV according to patient size (this includes techniques or standardized protocols for targeted exams where dose is matched to indication/reason for exam; i.e. extremities or head) *Use of iterative reconstruction technique TOTAL EXAM DLP: 33 mGy-cm. CTDIvol: 0.93 mGy. FINDINGS: PULMONARY NODULES: Anteriorly within the right middle lobe (5:243), a 5 mm benign, calcified granuloma is seen. Within the lateral segment of the right middle lobe (5:257), a 3 mm noncalcified nodule is seen. Centrally within the right middle lobe (5:260), a 4 mm noncalcified nodule is seen. A small right upper lobe endobronchial density is seen (5:171). Within the superior segment of the right upper lobe (5:185 and 213), 4 mm and 3 mm noncalcified nodules are seen. Within the posterior segment of the left upper lobe (5:163), a 3 mm noncalcified nodule is seen. Within the anterior segment of the right upper lobe (5:209), a 3 mm noncalcified nodule is seen. Within the lingula (5:24), a 5 mm noncalcified nodule is seen. LUNGS: Lungs bilaterally symmetrically expanded. There are moderately severe centrilobular emphysematous changes. No infiltrate, effusion or pneumothorax is seen. There is mild bibasilar dependent hypoaeration, right greater than left. There is mild generalized small airway thickening. The central airways appear patent. MEDIASTINUM: No mediastinal, hilar or axillary adenopathy or free fluid collection. CORONARY ARTERY CALCIFICATION: Very mild. THYROID GLAND: Unremarkable to the extent seen. CARDIOVASCULAR STRUCTURES: Aortic and heart size normal. There is mild atherosclerotic calcification of the thoracic aortic arch and great vessel origins. No pericardial effusion. CHEST WALL/AXILLA: Unremarkable. UPPER ABDOMEN: At the upper pole of the left kidney, a 2 mm calculus is partially included in the govhr-pc-fleg (3:63). Included portions of the solid organs in the upper abdomen are otherwise unremarkable on noncontrast imaging. OSSEOUS STRUCTURES: There is multi-level mild thoracic spondylosis. A chronic appearing ununited fracture is noted of the posterolateral aspect of the right fifth rib. Please correlate clinically. No acute or aggressive osseous finding is noted. CT/CT lung screening IMPRESSION: 1. There are multiple nonspecific, noncalcified bilateral lung nodules, the largest bilaterally measuring 5 mm. 2. There are moderately severe centrilobular emphysematous changes. 3. There is mild generalized small airway thickening, raising the possibility of acute bronchiolitis or reactive airways disease. 4. There are very mild coronary artery atherosclerotic calcifications. 5. There is multi-level mild thoracic spondylosis. A chronic appearing ununited posterolateral right fifth rib fracture is noted, for which clinical correlation is recommended. 6. A 2 mm left renal upper pole calculus is partially included in the [id number]. ASSESSMENT: 1. Lung-RADS Category 2: Benign appearance or behavior of nodules. N/A 2. Lung-RADS Category S: Negative. There are no clinically significant or potentially clinically significant findings not related to the lungs requiring urgent additional evaluation. RECOMMENDATION: Continued routine annual low-dose CT lung screening in 1 year is recommended. An order for CT CHEST LOW DOSE CANCER SCREENING ([id number]) can be placed. Electronically signed by: Abhishek Kuhn MD 09/12/2024 09:52 AM EST
--- OUTSIDE RECORDS SUMMARY | 2024-07-25 07:21 | XMS_ITS | Clinical Summary ---
Author Organization Unknown Care Team Providers Care Sales Project Manager Name Role Phone SYDCHRISTOPHER BERRY, SHAWN Unavailable Unavailable CORTES GALVIN, MCKENZIE Unavailable Unavailable Payers Payer Name Policy Type Policy Number Effective Date Expira tion Date [place] [facility] [id number] [facility] ONE CARE MASS PROGRAM [id number] [facility] [id number] MEDICARE - [facility]/[place] - [place] [id number] Problems Condition Name Condition Details Condition Category [...] 7.5 mg tablet 11-11 00:00: 00 Yes [id number] Per instruc tions AT BEDTIME Per instructio ns AT BEDTIME (route: oral) Med Classific ation: Central Nervous System Agents oxcarbazepi ne 300 mg tablet 11-11 00:00: 00 Yes [id number] Per instruc tions TWICE A DAY Per instructio ns TWICE A DAY (route: oral) Med Classific ation: Central Nervous System Agents pramipexole 0.25 mg tablet 11-07 00:00: 00 Yes [id number] Per instruc tions TWICE A DAY Per instructio ns TWICE A DAY (route: oral) Med Classific ation: Central Nervous System Agents atorvastati n 20 mg tablet 12-27 00:00: 00 Yes [id number] 1 tablet BEDTIME 1 tablet BEDTIME (route: oral) Med Classific ation: Cardiovas cular Therapy Agents levothyroxi ne 50 mcg capsule 12-27 00:00: 00 Yes [id number] 1 capsule DAILY 1 capsule DAILY (route: oral) Med Classific ation: Endocrine metformin 500 mg tablet 12-27 00:00: 00 Yes [id number] 1 tablet 2 TIMES DAILY 1 tablet 2 TIMES DAILY (route: oral) Med Classific ation: Endocrine sertraline 50 mg tablet 12-27 00:00: 00 Yes [id number] 1 tablet DAILY 1 tablet DAILY (route: [...] GOAL FOR HOME HEALTH. PATIENT ADMITTED TO [facility] RELTED TO MENTAL HEALTH. 62/F WITH MOOD DISORDER AND DIABETES. PATIENT REQUIRES [facility] VISITS FOR MEDICATION MANAGEMENT, EDUCATION RELATED TO THE DISEASE PROCESS, VITAL SIGN MONITORING, COPING SKILL DEVELOPMENT AND REVIEW, ASSESSMENT AND OBSERVATION OF MENTAL, PHYSICAL AND PSYCHOSOCIAL STATUS. [code = SKILLED NURSE TO EVALUATE PATIENT, IDENTIFY PRIMARY AND CO-MORBID CONDITIONS CODED PER CODING GUIDELINES, AND DEVELOP PATIENT SPECIFIC PLAN OF CARE THAT INCLUDES PATIENT GOAL FOR HOME HEALTH. PATIENT ADMITTED TO [facility] RELTED TO [facility]. 62/F WITH MOOD DISORDER AND DIABETES. PATIENT REQUIRES [facility] VISITS FOR MEDICATION MANAGEMENT, EDUCATION RELATED TO [...] CARE WILL BE ESTABLISHED THAT MEETS PATIENT'S [facility] NEEDS AND INCLUDES PATIENT GOAL FOR HOME [...] End Date/Time Encounter Type Admission Type Attending [facility] Care Department Encounter ID Discharge Date Discharge Status Discharge Condition Discharge Reason Percent Goals Met 2022-12-27 00:00:00 2023-02-01 00:00:00 Outpatient NEW ADMISSION MCKENZIE KOLB [facility] [id number] 00:00:00 DISCHARGE TO HOME OR SELF CARE INDEPENDEN T IN THE COMMUNITY CHANGE IN PAYOR SOURCE, WILL NOT BE READMITTED 25.93
--- OUTSIDE RECORDS SUMMARY | 2024-07-25 07:21 | XMS_ITS | Clinical Summary ---
Author Organization Unknown Care Team Providers Care Rapid Outsole Stitcher Name Role Phone SYDCHRISTOPHER BERRY, SHAWN Unavailable Unavailable CORTES GALVIN, MCKENZIE Unavailable Unavailable Payers Payer Name Policy Type Policy Number Effective Date Expira tion Date [place] [facility] [id number] [facility] ONE CARE [place] PROGRAM [id number] [facility] [id number] MEDICARE - [facility]/[place] - PD [id number] Problems Condition Name Condition Details Condition Category [...] 7.5 mg tablet 11-11 00:00: 00 Yes [id number] Per instruc tions AT BEDTIME Per instructio ns AT BEDTIME (route: oral) Med Classific ation: Central Nervous System Agents oxcarbazepi ne 300 mg tablet 11-11 00:00: 00 Yes [id number] Per instruc tions TWICE A DAY Per instructio ns TWICE A DAY (route: oral) Med Classific ation: Central Nervous System Agents pramipexole 0.25 mg tablet 11-07 00:00: 00 Yes [id number] Per instruc tions TWICE A DAY Per instructio ns TWICE A DAY (route: oral) Med Classific ation: Central Nervous System Agents atorvastati n 20 mg tablet 12-27 00:00: 00 Yes [id number] 1 tablet BEDTIME 1 tablet BEDTIME (route: oral) Med Classific ation: Cardiovas cular Therapy Agents levothyroxi ne 50 mcg capsule 12-27 00:00: 00 Yes [id number] 1 capsule DAILY 1 capsule DAILY (route: oral) Med Classific ation: Endocrine metformin 500 mg tablet 12-27 00:00: 00 Yes [id number] 1 tablet 2 TIMES DAILY 1 tablet 2 TIMES DAILY (route: oral) Med Classific ation: Endocrine sertraline 50 mg tablet 12-27 00:00: 00 Yes [id number] 1 tablet DAILY 1 tablet DAILY (route: [...] GOAL FOR HOME HEALTH. PATIENT ADMITTED TO [facility] RELTED TO MENTAL HEALTH. 62/F WITH MOOD DISORDER AND DIABETES. PATIENT REQUIRES [facility] VISITS FOR MEDICATION MANAGEMENT, EDUCATION RELATED TO THE DISEASE PROCESS, VITAL SIGN MONITORING, COPING SKILL DEVELOPMENT AND REVIEW, ASSESSMENT AND OBSERVATION OF MENTAL, PHYSICAL AND PSYCHOSOCIAL STATUS. [code = SKILLED NURSE TO EVALUATE PATIENT, IDENTIFY PRIMARY AND CO-MORBID CONDITIONS CODED PER CODING GUIDELINES, AND DEVELOP PATIENT SPECIFIC PLAN OF CARE THAT INCLUDES PATIENT GOAL FOR HOME HEALTH. PATIENT ADMITTED TO [facility] TO [facility]. 62/F WITH MOOD DISORDER AND DIABETES. PATIENT REQUIRES [facility] VISITS FOR MEDICATION MANAGEMENT, EDUCATION RELATED TO [...] CARE WILL BE ESTABLISHED THAT MEETS PATIENT'S [facility] NEEDS AND INCLUDES PATIENT GOAL FOR HOME [...] End Date/Time Encounter Type Admission Type Attending [facility] Care Department Encounter ID Discharge Date Discharge Status Discharge Condition Discharge Reason Percent Goals Met 2022-12-27 00:00:00 2023-02-01 00:00:00 Outpatient NEW ADMISSION MCKENZIE KOLB [facility] [id number] 00:00:00 DISCHARGE TO HOME OR SELF CARE INDEPENDEN T IN THE COMMUNITY CHANGE IN [place] S[place], WILL NOT BE READMITTED 25.93
== END 2024-07-20 10:23 | disposition home or self-care (01) ==
LOC: HO.CT 10:22
PROVIDERS: PCP Internal Medicine; Visit Provider Physician Assistant Medical
DX: Z12.2 Encounter for screening for malignant neoplasm of respiratory organs (principal); F17.210 Nicotine dependence, cigarettes, uncomplicated
CPT/HCPCS: 71271; G0296

== ENCOUNTER 2024-08-14 11:24 | Outpatient (AMB) | payer OTHER, SELFPAY ==
--- OUTSIDE RECORDS SUMMARY | 2024-08-14 11:43 | XMS_ITS | Clinical Summary ---
Author Organization Unknown Care Team Providers Care Shoe Puller Name Role Phone SYDCHRISTOPHER BERRY, SHAWN Unavailable Unavailable CORTES GALVIN, MCKENZIE Unavailable Unavailable Payers Payer Name Policy Type Policy Number Effective Date Expira tion Date [place] [facility] [id number] [facility] ONE CARE [place]GRAM [id number] [facility] [id number] MEDICARE - [facility]/[place] - [place] [id number] Problems Condition Name Condition Details Condition Category [...] 7.5 mg tablet 11-11 00:00: 00 Yes [id number] Per instruc tions AT BEDTIME Per instructio ns AT BEDTIME (route: oral) Med Classific ation: Central Nervous System Agents oxcarbazepi ne 300 mg tablet 11-11 00:00: 00 Yes [id number] Per instruc tions TWICE A DAY Per instructio ns TWICE A DAY (route: oral) Med Classific ation: Central Nervous System Agents pramipexole 0.25 mg tablet 11-07 00:00: 00 Yes [id number] Per instruc tions TWICE A DAY Per instructio ns TWICE A DAY (route: oral) Med Classific ation: Central Nervous System Agents atorvastati n 20 mg tablet 12-27 00:00: 00 Yes [id number] 1 tablet BEDTIME 1 tablet BEDTIME (route: oral) Med Classific ation: Cardiovas cular Therapy Agents levothyroxi ne 50 mcg capsule 12-27 00:00: 00 Yes [id number] 1 capsule DAILY 1 capsule DAILY (route: oral) Med Classific ation: Endocrine metformin 500 mg tablet 12-27 00:00: 00 Yes [id number] 1 tablet 2 TIMES DAILY 1 tablet 2 TIMES DAILY (route: oral) Med Classific ation: Endocrine sertraline 50 mg tablet 12-27 00:00: 00 Yes [id number] 1 tablet DAILY 1 tablet DAILY (route: [...] GOAL FOR HOME HEALTH. PATIENT ADMITTED TO [facility] RELTED TO MENTAL HEALTH. 62/F WITH MOOD DISORDER AND DIABETES. PATIENT REQUIRES [facility] VISITS FOR MEDICATION MANAGEMENT, EDUCATION RELATED TO THE DISEASE PROCESS, VITAL SIGN MONITORING, COPING SKILL DEVELOPMENT AND REVIEW, ASSESSMENT AND OBSERVATION OF MENTAL, PHYSICAL AND PSYCHOSOCIAL STATUS. [code = SKILLED NURSE TO EVALUATE PATIENT, IDENTIFY PRIMARY AND CO-MORBID CONDITIONS CODED PER CODING GUIDELINES, AND DEVELOP PATIENT SPECIFIC PLAN OF CARE THAT INCLUDES PATIENT GOAL FOR HOME HEALTH. PATIENT ADMITTED TO [facility] RELTED TO [facility]. 62/F WITH MOOD DISORDER AND DIABETES. PATIENT REQUIRES [facility] VISITS FOR MEDICATION MANAGEMENT, EDUCATION RELATED TO [...] CARE WILL BE ESTABLISHED THAT MEETS PATIENT'S [facility] NEEDS AND INCLUDES PATIENT GOAL FOR HOME [...] End Date/Time Encounter Type Admission Type Attending [facility] Care Department Encounter ID Discharge Date Discharge Status Discharge Condition Discharge Reason Percent Goals Met 2022-12-27 00:00:00 2023-02-01 00:00:00 Outpatient NEW ADMISSION MCKENZIE KOLB [facility] [id number] 00:00:00 DISCHARGE TO HOME OR SELF CARE INDEPENDEN T IN THE COMMUNITY CHANGE IN [place] S[place], WILL NOT BE READMITTED 25.93
--- OUTSIDE RECORDS SUMMARY | 2024-08-14 11:43 | XMS_ITS | Clinical Summary ---
Author Organization Unknown Care Team Providers Care Latin Professor Name Role Phone SYDCHRISTOPHER BERRY, SHAWN Unavailable Unavailable CORTES GALVIN, MCKENZIE Unavailable Unavailable Payers Payer Name Policy Type Policy Number Effective Date Expira tion Date [place] - [facility] [id number] [facility] ONE CARE MASS PROGRAM [id number] [facility] [id number] MEDICARE - [facility] [id number] Problems Condition Name Condition Details Condition Category [...] 7.5 mg tablet 11-11 00:00: 00 Yes [id number] Per instruc tions AT BEDTIME Per instructio ns AT BEDTIME (route: oral) Med Classific ation: Central Nervous System Agents oxcarbazepi ne 300 mg tablet 11-11 00:00: 00 Yes [id number] Per instruc tions TWICE A DAY Per instructio ns TWICE A DAY (route: oral) Med Classific ation: Central Nervous System Agents pramipexole 0.25 mg tablet 11-07 00:00: 00 Yes [id number] Per instruc tions TWICE A DAY Per instructio ns TWICE A DAY (route: oral) Med Classific ation: Central Nervous System Agents atorvastati n 20 mg tablet 12-27 00:00: 00 Yes [id number] 1 tablet BEDTIME 1 tablet BEDTIME (route: oral) Med Classific ation: Cardiovas cular Therapy Agents levothyroxi ne 50 mcg capsule 12-27 00:00: 00 Yes [id number] 1 capsule DAILY 1 capsule DAILY (route: oral) Med Classific ation: Endocrine metformin 500 mg tablet 12-27 00:00: 00 Yes [id number] 1 tablet 2 TIMES DAILY 1 tablet 2 TIMES DAILY (route: oral) Med Classific ation: Endocrine sertraline 50 mg tablet 12-27 00:00: 00 Yes [id number] 1 tablet DAILY 1 tablet DAILY (route: [...] GOAL FOR HOME HEALTH. PATIENT ADMITTED TO [facility] RELTED TO MENTAL HEALTH. 62/F WITH MOOD DISORDER AND DIABETES. PATIENT REQUIRES INTER[facility] VISITS FOR MEDICATION MANAGEMENT, EDUCATION RELATED TO THE DISEASE PROCESS, VITAL SIGN MONITORING, COPING SKILL DEVELOPMENT AND REVIEW, ASSESSMENT AND OBSERVATION OF MENTAL, PHYSICAL AND PSYCHOSOCIAL STATUS. [code = SKILLED NURSE TO EVALUATE PATIENT, IDENTIFY PRIMARY AND CO-MORBID CONDITIONS CODED PER CODING GUIDELINES, AND DEVELOP PATIENT SPECIFIC PLAN OF CARE THAT INCLUDES PATIENT GOAL FOR HOME HEALTH. PATIENT ADMITTED TO [facility] SERVICES RELTED TO [facility]. 62/F WITH MOOD DISORDER AND DIABETES. PATIENT REQUIRES INTERMEDIATE VISITS FOR MEDICATION MANAGEMENT, EDUCATION RELATED TO [...] CARE WILL BE ESTABLISHED THAT MEETS PATIENT'S INTERMEDIATE NEEDS AND INCLUDES PATIENT GOAL FOR HOME [...] End Date/Time Encounter Type Admission Type Attending [facility] Care Department Encounter ID Discharge Date Discharge Status Discharge Condition Discharge Reason Percent Goals Met 2022-12-27 00:00:00 2023-02-01 00:00:00 Outpatient NEW ADMISSION MCKENZIE KOLB [facility] [id number] 00:00:00 DISCHARGE TO HOME OR SELF CARE INDEPENDEN T IN THE COMMUNITY CHANGE IN PAYOR SOURCE, WILL NOT BE READMITTED 25.93
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
== END 2024-08-14 12:15 | disposition home or self-care (01) ==
LOC: HO.HOP 11:24
PROVIDERS: PCP Internal Medicine; Visit Provider Clinical Nurse Specialist Psychiatric/Mental Health
DX: F33.1 Major depressive disorder, recurrent, moderate (principal); Z79.899 Other long term (current) drug therapy; F43.10 Post-traumatic stress disorder, unspecified; G25.81 Restless legs syndrome; F41.1 Generalized anxiety disorder; F31.81 Bipolar II disorder; F90.2 Attention-deficit hyperactivity disorder, combined type
CPT/HCPCS: 99215

== ENCOUNTER 2024-08-14 11:24 | Outpatient (REF) | payer MEDICARE, SELFPAY ==
[2024-08-14 13:37] LABS: Alanine Aminotransferase 12 U/L (0-31); Alkaline Phosphatase 128 U/L (39-117); Anion Gap 10 (12-20); Aspartate Amino Transferase 18 U/L (5-31); Bilirubin Total 0.2 mg/dL (0.0-1.0); Blood Urea Nitrogen 21 mg/dL (9-16); Calcium 8.7 mg/dL (8.4-10.2); Carbon Dioxide 28 mmol/L (22-29); Chloride 107 mmol/L (96-108); Estimated Glomerular Filt Rate > 60; Glucose Random 80 mg/dL (60-115); Potassium 4.2 mmol/L (3.3-5.1); Sodium 141 mmol/L (135-145); Total Protein 6.5 g/dL (6.5-8.0)
[2024-08-14 13:52] LABS: TSH reflex Free T4 2.86 uIU/mL (0.32-4.0)
== END 2024-08-14 11:25 | disposition home or self-care (01) ==
LOC: HO.LAB 11:24
PROVIDERS: PCP Internal Medicine; Visit Provider Clinical Nurse Specialist Psychiatric/Mental Health
DX: Z79.899 Other long term (current) drug therapy (principal)
CPT/HCPCS: 36415; 80053; 84443

== ENCOUNTER 2024-09-03 10:56 | Outpatient (AMB) | payer OTHER, SELFPAY ==
--- NOTE | 2024-09-03 10:58 | MHC.OFFVIS ---
Vital Signs 09/03/24 11:01 Height 5 ft 1 in Weight 99 lb 6 oz BMI 18.8 Intake Visit Reasons: Inj-Bilateral Knee OA - Last Inj 05/10/24 Intake Note: Jaja is a 63 year old female who presents today for a follow up of her bilateral knee OA. Her last injections administered bilaterally on 05/10/24 provided her with relief. She would like repeat injections today. Instrumentation Designer Required: No Allergies olanzapine [From ZYPREXA] Adverse Reaction (Intermediate, Verified 09/03/24 11:02) RLS symptoms clonidine Adverse Reaction (Verified 09/03/24 11:02) RLS diphenhydramine [From Benadryl] Adverse Reaction (Verified 09/03/24 11:02) RLS hydroxyzine Adverse Reaction (Verified 09/03/24 11:02) RLS melatonin Adverse Reaction (Verified 09/03/24 11:02) RLS atypical antipsychotics Adverse Reaction (Severe, Uncoded 09/03/24 11:02) This class appears to potentiate RLS/Akathesia Medication List - Last Reconciled 09/03/24 by Rere Monreal RN albuterol sulfate 90 mcg/actuation (Ventolin HFA) 2 puffs inhalation Q4-6H PRN 30 days cholecalciferol (vitamin D3) 100 mcg (2 x 50 mcg (2,000 unit)) PO DAILY docusate sodium 100 mg PO BID PRN 30 days guanfacine ER 1 mg PO QID 30 days levothyroxine 50 mcg PO DAILY@0600 30 days lorazepam 1 mg PO DAILY PRN modafinil 200 mg PO QAM pramipexole 0.5 mg PO TID 30 days pregabalin 150 mg PO BID 30 days pregabalin 200 mg PO BEDTIME 30 days suvorexant (Belsomra) 10 mg PO BEDTIME HPI HPI Inj-Bilateral Knee OA - Last Inj 05/10/24: Details: This is a comes in today continuing to describe pain in her knees that prevents her from walking comfortably. She is extremely active wants to continue to be active. She states injections have helped in the past. She states she is borderline diabetic but injections have not been problem for her so far. [facility] Medical History (Updated 08/14/24 @ 12:43 by Fiorella Nettles APRN) Nicotine dependence, cigarettes, uncomplicated Bipolar disorder, current episode depressed, moderate Misuse of prescription only drugs 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 mutation [id number] Post-traumatic stress disorder, unspecified ADHD Hypothyroidism Generalized anxiety disorder MDD (major depressive disorder), recurrent episode Polysubstance use disorder Cannabis use disorder Cocaine use disorder Acute medication-induced akathisia Osteopenia of multiple sites Skin lesion of back Syncope Type II diabetes mellitus Fibromyalgia Benzodiazepine abuse RLS (restless legs syndrome) COPD (chronic obstructive pulmonary disease) HLD (hyperlipidemia) Surgical History History of vaginal hysterectomy History of cataract surgery Family History Mother CAD (coronary artery disease) Father Alcoholism Son Substance use disorder Son Substance use disorder Social History Household Members: Unknown / Unable to assess Household Members Other:: son's girlfriend Housing: Unknown / Unable to assess Do you presently have visiting nurse or other home services: No Unable to assess alcohol history related to: Unknown Alcohol intake: never Comment: Pt reports falling d/t excessive intake of Benzo's prior to admission Patient Tobacco Use Status: Current someday Tobacco user Tobacco use type: Cigarette Cigarette Packs Per Day: 1 Cigarettes Per Day: 20.0 Years Smoked: 45 e-Cigarette/Vaping Use: Never Used Second Hand Smoke Exposure: No Substance Use Type: Marijuana service: No Current occupational status: unemployed Sexual orientation: Straight/Heterosexual Cognitive needs: No Hearing needs: No Vision needs: No Physical Exam Vital Signs: BMI result Body Mass Index 18.8 Const General: no acute distress, alert and awake Orientation/consciousness: patient oriented x3 HEENT Head: Yes normocephalic and Yes atraumatic Mouth: moist mucous membranes Eyes General: appearance normal, both eyes and all related structures EOM: EOMs intact bilaterally Chest Other: no audible wheezing. Resp Other: No audible wheezing Effort & Inspection: normal respiratory effort and able to speak in complete sentences Cardio Other: Radial pulse palpable with no rythmic abnormalities Jugular venous distension: no JVD Back/Spine/Pelvis Cervical Spine: normal cervical lordosis Skin General skin exam: turgor normal Rashes: no rashes Neuro General: patient oriented x3 Extrem Other: Bilateral Knees: Skin C/D/I No effusion TTP MJL R>L Psych Appearance: grossly normal Mental Status: mental status grossly normal Speech and movement: Normal speech and movement present Affect: normal affect Attitude: cooperative Office Procedures Joint Inj/Aspir; Non-Pain Clin Joint Injection/Drain Details: Injected 1 mL of Decadron and 3 mL 1% lidocaine and 3 mL of 0.25% Marcaine. Site was prepped using aseptic technique. Patient tolerated the procedure well. Shoulders, Hips, Knees, Knee Large Joint Injection : Bilateral Knee Coding Procedure code (CPT) selection complete Assessment & Plan Assessment & Plan (1) Bilateral primary osteoarthritis of knee: Code(s): M17.0 - Bilateral primary osteoarthritis of knee Category: Medical Plan: I injected bilateral knees today. She may continue activity as tolerated. (2) Type II diabetes mellitus: Code(s): E11.9 - Type 2 diabetes mellitus without complications Category: Medical Plan: I warned her of the hyperglycemic effects of steroids. She expressed understanding. Coding Level of Care Code Est Pt Level 4 (93344) Diagnoses Bilateral primary osteoarthritis of knee M17.0 Type II diabetes mellitus E11.9 CPT Codes Shoulders, Hips, Knees, - Knee Large Joint Injection : Bilateral Knee ([id number])
[2024-09-03 11:01] VITALS: BMI 18.8
== END 2024-09-03 11:17 | disposition home or self-care (01) ==
LOC: HO.HOS 10:56
PROVIDERS: PCP Internal Medicine; Visit Provider Orthopaedic Surgery
DX: M17.0 Bilateral primary osteoarthritis of knee (principal); E11.9 Type 2 diabetes mellitus without complications
CPT/HCPCS: 20610; 99214

== ENCOUNTER → 2024-09-03 10:56 | Outpatient (BNVA) | payer MEDICARE, SELFPAY | PROVIDERS: PCP Internal Medicine; Visit Provider Orthopaedic Surgery | DX: M17.0 Bilateral primary osteoarthritis of knee (principal); E11.9 Type 2 diabetes mellitus without complications | CPT/HCPCS: 20610; J0665; J1100; J2003 ==

== ENCOUNTER 2024-09-07 16:04 | Outpatient (AMB) | payer OTHER, SELFPAY ==
--- OUTSIDE RECORDS SUMMARY | 2024-09-07 16:40 | XMS_ITS | Encounter Summary ---
Author Organization [employer] Address [address] [facility] [address] [place] [address] Care Team Providers Care City Alderman Name Role Phone Unavailable Primary Care Provider Unavailabl e Encounter Details Date Type Department Care Team (Latest Contact Info) Description 10/26/2018 Abstract [facility] CONVERSIONS Dental, Provider, DDS Social History Tobacco Use Types Packs/Day Years Used Date Smoking Tobacco: Never Assessed Comments Unknown Sex and Gender Information Value Date Recorded Sex Assigned at Female 06/14/2022 10:27 AM EDT Legal Sex Female 10:27 AM EDT Gender Identity Female 08/17/2024 8:25 AM EST Sexual Orientation Choose not to disclose 2024 8:25 AM EST documented as of this encounter Plan of Treatment Not on file documented as of this encounter Visit Diagnoses Not on filedocumented in this encounter
--- OUTSIDE RECORDS SUMMARY | 2024-09-07 16:40 | XMS_ITS | Clinical Summary ---
Author Organization [employer] Address [address] [facility] [address] [place] [address] Care Team Providers Care Farmworker Fur Name Role Phone Unavailable Primary Care Provider Unavailabl e Encounters Date Type Department Care Team Description 08/17/2024 Telephone [facility] [address] [place] [address] Kj Zurita DMD insurance information/self pay from Last 3 Months Social History Tobacco Use Types Packs/Day Years Used Date Smoking Tobacco: Never Assessed Comments Unknown Sex and Gender Information Value Date Recorded Sex Assigned at Female 06/14/2022 10:27 AM EDT Legal Sex Female 10:27 AM EDT Gender Identity Female 08/17/2024 8:25 AM EST Sexual Orientation Choose not to disclose 2024 8:25 AM EST Plan of Treatment Health Maintenance Due Date Last Done Comments CT Colonography 1962 Colonoscopy 1962 Colorectal Cancer Screening 1962 Depression Screening 1962 FIT DNA/Cologuard 1962 FIT 1962 FOBT 1962 Sigmoidoscopy 1962 Alcohol/Substance Use Screening 1974 Tobacco Screening 1974 DTaP/Tdap/Td Vaccines (1 - Tdap) 1981 Pap Smear 11/10/1983 Cervical Cancer Screening 1992 HPV/Cotest 1992 Mammogram 2002 Zoster Vaccines (1 of 2) 2012 Dental X-Ray: Full Mouth 09/28/2017 09/27/2014 Dental Prophylaxis 04/29/2019 10/26/2018, 12/12/2014 Dental Oral Exam 06/07/2019 12/05/2018, 05/2016, 09/27/2014 Dental X-Ray: Bitewings 10/28/2019 10/27/19 19, 10/23/2015, 09/27/2014 COVID-19 Vaccine ( season) 2024 06/19/2022, 07/29/2021, 09/29/2020, Additional history exists RSV Patients and Patients Aged 60 years or older (1 - 1-dose 75+ series) 2037 Pneumococcal Vaccine: Pediatrics (0 to 5 Years) and At-Risk Patients (6 to 64 Years) Aged Out 07/18/2019 No longer eligible based on patient's age to complete this topic Influenza Vaccine Completed 06/05/2024, , 10/06/2021, Additional history exists HIB Vaccines Aged Out No longer eligi ble based on patient's age to complete this topic HPV Vaccines Aged Out No longer eligi ble based on patient's age to complete this topic Hepatitis A Vaccines Aged Out No long er eligible based on patient's age to complete this topic Hepatitis B Vaccines Aged Out No long er eligible based on patient's age to complete this topic IPV Vaccines Aged Out No longer eligi ble based on patient's age to complete this topic Meningococcal Vaccine Aged Out No solo yvonne eligible based on patient's age to complete this topic RSV under 20 months Aged Out No longe r eligible based on patient's age to complete this topic Rotavirus Vaccines Aged Out No longer eligible based on patient's age to complete this topic Procedures Procedure Name Priority Date/Time Associated Diagnosis Comments PERIODIC ORAL EVALUATION - ESTABLISHED PATIENT Routine 12/05/2018 12:00 AM EDT PROPHYLAXIS - ADULT Routine 10/26/2018 1 2:00 AM EDT BITEWINGS - 4 RADIOGRAPHIC IMAGES Routine 10/26/2018 12:00 AM EDT DIAGNOSTIC - DIAGNOSTIC IMAGING - INTRAORAL - COMPREHENSIVE SERIES OF RADIOGRAPHIC IMAGES Routine 09/27/2014 12:00 AM EST from Last 3 Months or Most Recently Relevant to Health Maintenance
--- OUTSIDE RECORDS SUMMARY | 2024-09-07 16:40 | XMS_ITS | Encounter Summary ---
Author Organization [employer] Address [address] [facility] [address] [place] [address] Care Team Providers Care Research Worker Kitchen Name Role Phone Unavailable Primary Care Provider Unavailabl e Reason for Visit * Reason Onset Date Comments insurance information/self pay 08/17/2024 Encounter Details Date Type Department Care Team (Late st Contact Info) Description 08/17/2024 Telephone [facility] [address] [place], [place] [phone] Kj Zurita, SAEID [address] [place], [place] [phone] insurance information/self pay Social History Tobacco Use Types Packs/Day Years Used Date Smoking Tobacco: Never Assessed Comments Unknown Sex and Gender Information Value Date Recorded Sex Assigned at Female 06/14/2022 10:27 AM EDT Legal Sex Female 10:27 AM EDT Gender Identity Female 08/17/2024 8:25 AM EST Sexual Orientation Choose not to disclose 2024 8:25 AM EST documented as of this encounter Miscellaneous Notes * Telephone Encounter - Acacia Cortez - 08/17/2024 8:27 AM EST Patient states she has [employer] for insurance but does not have the card and unable to find in system. She has been marked as self pay. She is contacting insurance to gather insurance information. She is aware that if insurance information is not provided, she will be charged out of pocketfor visit documented in this encounter Plan of Treatment Not on file documented as of this encounter Visit Diagnoses Not on filedocumented in this encounter
--- OUTSIDE RECORDS SUMMARY | 2024-09-07 16:40 | XMS_ITS | Patient Health Record ---
Author Organization [facility] Address [address] [place], [place] [phone] Care Team Providers Care Bottoming Machine Operator Name Role Phone [facility] Primary Care Provider Karoline Mak Unavailable Reason For Referral No Information Encounters Encounter Location Date Provider Diagnosis [facility] [address] [place] [address] [phone] 09/15/2023 Karoline Carcamo [facility] [address] [place] [address] [phone] 09/30/2023 Karoline Carcamo [facility] [address] [place] [address] [phone] 10/05/2023 Karoline Carcamo Plan Of Treatment No Information Insurance Providers Payer Name Payer Address Payer Phone Subscriber Number Group Number Insured Name Patient Relationship to Insured Coverage Start Date Coverage End Date [place] Medicare Part [place] [employer] [address] [facility] [address] [id number] Jaja Beebe Self - patient is the insured 2 2
--- OUTSIDE RECORDS SUMMARY | 2024-09-07 16:40 | XMS_ITS ---
Author Organization [facility] Address [address] [place] [phone] Care Team Providers Care Payroll And Benefits Assistant Name Role Phone [facility] Primary Care Provider Karoline Mak Unavailable Encounters Encounter Location Date Provider Diagnosis [facility] [address] [place] [address] [phone] 10/13/2023 Karoline Carcamo Plan Of Treatment No Information Progress Notes * Leigh BEEBEOB:1960 (63 yo F)Acc No.[id number]:10/13/2023 Case Management Patient:?Jaja BEEBE Provider:?Karoline Carcamo :1960???Age:62 Y???Sex:Female D ate:10/13/2023 Address:[address] [place], [place] [phone] Pcp:[facility] Subjective: * Chief Complaints: * ??? * Medical History:? Objective: Assessment: Plan: * Treatment: * Images: Billing Information: * Visit Code:? * Procedure Codes:? Care Plan Details* * Electronic signature of Jose Ramon Carcamo on 09/07/2024 at 04:40 PM EST Sign off status: Pending * Provider:Shagufta Carcamo Date:? Generated for Jay Jay cintron/Morales/eTransmitting on:?09/07/2024 04:40 PM EST
--- OUTSIDE RECORDS SUMMARY | 2024-09-07 16:40 | XMS_ITS ---
Author Organization [facility] Address [address] [place] [phone] Care Team Providers Care Pet Store Merchandiser Name Role Phone [facility] Primary Care Provider Karoline Mak Unavailable [phone] Encounters Encounter Location Date Provider Diagnosis [facility] [address] [place] [address] [phone] 10/21/2023 Karoline Carcamo Plan Of Treatment No Information Progress Notes * Leigh BEEBEOB:1960 (63 yo F)Acc No.[id number]:10/21/2023 Case Management Patient:?Jaja BEEBE Provider:?Karoline Carcamo :1960???Age:62 Y???Sex:Female D ate:10/21/2023 Address:[address] [place], [place] [phone] Pcp:[facility] Subjective: * Chief Complaints: * ??? * Medical History:? Objective: Assessment: Plan: * Treatment: * Images: Billing Information: * Visit Code:? * Procedure Codes:? Care Plan Details* * Electronic signature of Jose Ramon Carcamo on 09/07/2024 at 04:39 PM EST Sign off status: Pending * Provider:Shagufta Carcamo Date:? Generated for Jay Jay cintron/Morales/eTransmitting on:?09/07/2024 04:39 PM EST
--- OUTSIDE RECORDS SUMMARY | 2024-09-07 16:40 | XMS_ITS ---
Author Organization [facility] Address [address] [place] [phone] Care Team Providers Care Well Drill Operator Name Role Phone [facility] Primary Care Provider Karoline Mak Unavailable Encounters Encounter Location Date Provider Diagnosis [facility] [address] [place] [phone] 10/05/2023 Karoline Carcamo Plan Of Treatment No Information Progress Notes * Leigh BEEBEOB:1960 (62 yo F)Acc No.[id number]:10/05/2023 Case Management Patient:?Jaja Beebe Provider:?Karoline Carcamo :1960???Age:62 Y???Sex:Female D ate:10/05/2023 Address:[address] [place], [place] [phone] Pcp:[facility] Subjective: * Chief Complaints: * ??? * HPI: ???Social Service:?Referral Source?returning client.?Interpretation for medical provider?Mail pick pulling machine tender, housing.? [employer] and [employer] real [employer] housing applications were filled out client is still waiting for the proof of income verification. * Medical History:? Objective: Assessment: Plan: * Treatment: * Images: Billing Information: * Visit Code:? * Procedure Codes:? Care Plan Details* * Sign off status: Completed true * Provider:?Karoline Carcamo Date:? Generated for Jay Jay cintron/Morales/Israelitting on:?09/07/2024 04:39 PM EST History and Physical Notes * HPI (History of Present Illness) Category Sub-Category Detail Notes Social Service Referral Source returning client Interpretation for medical provider Mail pick pulling machine tender, housing
--- NOTE | 2024-10-02 17:12 | A.ECONSULT ---
E-Consult Requesting Provider: willi Reason for request: TMS consult Was there a discussion with the requesting provider?: Yes Total time spent: >5 minutes Consulting Provider Opinion: tms candidate see note
== END 2024-09-07 16:05 | disposition home or self-care (01) ==
LOC: HO.HOP 16:04
PROVIDERS: PCP Internal Medicine; Visit Provider Clinical Nurse Specialist Psychiatric/Mental Health
DX: F33.2 Major depressive disorder, recurrent severe without psychotic features (principal)
CPT/HCPCS: 99499

== ENCOUNTER → 2024-09-13 11:00 | Outpatient (BNV) | payer OTHER, SELFPAY | PROVIDERS: Visit Provider Psychiatry & Neurology Psychiatry | DX: F33.2 Major depressive disorder, recurrent severe without psychotic features (principal) | CPT/HCPCS: 90867; 90868 ==

== ENCOUNTER → 2024-09-17 11:00 | Outpatient (BNV) | payer OTHER, SELFPAY | PROVIDERS: Visit Provider Clinical Nurse Specialist Psychiatric/Mental Health | DX: F33.2 Major depressive disorder, recurrent severe without psychotic features (principal) | CPT/HCPCS: 90834 ==

== ENCOUNTER 2024-10-01 11:04 | Outpatient (AMB) | payer OTHER, SELFPAY ==
--- OUTSIDE RECORDS SUMMARY | 2024-10-01 11:08 | XMS_ITS | Clinical Summary ---
Author Organization [employer] Address [address] [facility] [address] [place] [address] Care Team Providers Care Paper Twister Tender Name Role Phone Unavailable Primary Care Provider Unavailabl e Encounters Date Type Department Care Team Description 08/17/2024 Telephone [facility] [address] [place] [address] Kj Zurita DMD insurance information/self pay from [...] X-Ray: [facility] 10/28/2019 10/27/19 19, 10/23/2015, 09/27/2014 Pneumococcal Vaccine: 50+ Years (2 of 2 - PCV) 07/18/2020 07/18/2019 COVID-19 Vaccine ( - 2023- season) 2024 06/19/2022, 07/29/2021, 09/29/2020, Additional history exists RSV Patients and Patients Aged 60 years or older (1 - 1-dose 75+ series) 2037 Pneumococcal Vaccine: Pediatrics (0 to 5 Years) and At-Risk Patients (6 to 49) Years) Aged Out 07/18/2019 No longer eligible [...] RADIOGRAPHIC IMAGES Routine 10/26/2018 12:00 AM EDT INTRAORAL - COMPLETE SERIES OF RADIOGRAPHIC IMAGES Routine 09/27/2014 12:00 AM EST from Last 3 Months or Most Recently Relevant to Health Maintenance
--- OUTSIDE RECORDS SUMMARY | 2024-10-01 11:08 | XMS_ITS ---
Author Organization [facility] Address [address] [place] [phone] Care Team Providers Care Compacting Machine Operator/Tender Name Role Phone [facility] Primary Care Provider Karoline Mak Unavailable Encounters Encounter Location Date Provider Diagnosis [facility] [address] [place] [phone] 10/05/2023 Karoline Carcamo Plan Of Treatment No Information Progress Notes * Leigh BEEBEOB:1960 (62 yo F)Acc No.[id number]:10/05/2023 Case Management Patient:?Jaja Beebe Provider:?Karoline Carcamo :1960???Age:62 Y???Sex:Female D ate:10/05/2023 Address:[address] [place], [place] [phone] Pcp:[facility] Subjective: * Chief Complaints: * ??? * HPI: ???Social Service:?Referral Source?returning client.?Interpretation for medical provider?Mail cigar packer and picker, housing.? 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 * Medical History:? Objective: Assessment: Plan: * Treatment: * Images: Billing Information: * Visit Code:? * Procedure Codes:? Care Plan Details* * Sign off status: Completed true * Provider:?Karoline Carcamo Date:? Generated for Jay Jay cintron/Morales/Israelitting on:?10/01/2024 11:07 AM EST History and Physical Notes * HPI (History of Present Illness) Category Sub-Category Detail Notes Social Service Referral Source returning client Interpretation for medical provider Mail cigar packer and picker, housing
--- OUTSIDE RECORDS SUMMARY | 2024-10-01 11:08 | XMS_ITS | Encounter Summary ---
Author Organization [employer] Address [address] [facility] [address] [place] [address] Care Team Providers Care Tyre Retreader Name Role Phone Unavailable Primary Care Provider Unavailabl e Encounter Details Date Type Department Care Team (Latest Contact Info) Description 10/26/2018 Abstract [facility] Dental, Provider, DDS Social History Tobacco [...]
--- OUTSIDE RECORDS SUMMARY | 2024-10-01 11:08 | XMS_ITS | Encounter Summary ---
Author Organization [employer] Address [address] [facility] [address] [place] [address] Care Team Providers Care Research Director Name Role Phone Unavailable Primary Care Provider Unavailabl e Reason for Visit * Reason Onset Date Comments insurance information/self pay 08/17/2024 Encounter Details Date Type Department Care Team (Late st Contact Info) Description 08/17/2024 Telephone [facility] [address] [place], [place] [phone] Kj Zurita, DMD [address] [place], [place] [phone] insurance information/self pay Social History Tobacco Use [...] 8:27 AM EST Patient states she has Marco Vasco for insurance but does not have the [...]
--- OUTSIDE RECORDS SUMMARY | 2024-10-01 11:08 | XMS_ITS ---
Author Organization [facility] Address [address] [place] [phone] Care Team Providers Care Equip Maint Eng Name Role Phone [facility] Primary Care Provider Karoline Mak Unavailable Encounters Encounter Location Date Provider Diagnosis [facility] [address] [place] [phone] 10/21/2023 Karoline Carcamo Plan Of Treatment No Information Progress Notes * Leigh BEEBEOB:1960 (63 yo F)Acc No.[id number]:10/21/2023 Case Management Patient:?Jaja BEEBE Provider:?Karoline Carcamo :1960???Age:62 Y???Sex:Female D ate:10/21/2023 Address:[address] [place], [place] [phone] Pcp:[facility] Subjective: * Chief Complaints: * ??? * Medical History:? Objective: Assessment: Plan: * Treatment: * Images: Billing Information: * Visit Code:? * Procedure Codes:? Care Plan Details* * Electronic signature of Jose Ramon Carcamo on 10/01/2024 at 11:07 AM EST Sign off status: Pending * Provider:Shagufta Carcamo Date:? Generated for Jay Jay cintron/Morales/eTransmitting on:?10/01/2024 11:07 AM EST
--- OUTSIDE RECORDS SUMMARY | 2024-10-01 11:08 | XMS_ITS | Patient Health Record ---
Author Organization [facility] Address [address] [place], [place] [phone] Care Team Providers Care Shrink Pit Supervisor Name Role Phone [facility] Primary Care Provider Karoline Mak Unavailable Reason For Referral No Information Encounters Encounter Location Date Provider Diagnosis [facility] [address] [place] [phone] 10/05/2023 Karoline Carcamo Plan Of Treatment No Information Insurance Providers Payer Name Payer Address Payer Phone Subscriber Number Group Number Insured Name Patient Relationship to Insured Coverage Start Date Coverage End Date [place] Medicare Part [place] [employer] [address] [place] [address] [id number] Jaja Beebe Self - patient is the insured 2 2
--- OUTSIDE RECORDS SUMMARY | 2024-10-01 11:08 | XMS_ITS ---
Author Organization [facility] Address [address] [place] [phone] Care Team Providers Care Industrial Rehabilitation Consultant Name Role Phone [facility] Primary Care Provider Karoline Mak Unavailable Encounters Encounter Location Date Provider Diagnosis [facility] [address] [place] [phone] 10/13/2023 Karoline Carcamo Plan Of Treatment No Information Progress Notes * Leigh BEEBEOB:1960 (63 yo F)Acc No.[id number]:10/13/2023 Case Management Patient:?Jaja BEEBE Provider:?Karoline Carcamo :1960???Age:62 Y???Sex:Female D ate:10/13/2023 Address:[address] [place], [place] [phone] Pcp:[facility] Subjective: * Chief Complaints: * ??? * Medical History:? Objective: Assessment: Plan: * Treatment: * Images: Billing Information: * Visit Code:? * Procedure Codes:? Care Plan Details* * Electronic signature of Jose Ramon Carcamo on 10/01/2024 at 11:08 AM EST Sign off status: Pending * Provider:Shagufta Carcamo Date:? Generated for Jay Jay cintron/Morales/eTransmitting on:?10/01/2024 11:08 AM EST
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
== END 2024-10-01 12:12 | disposition home or self-care (01) ==
LOC: HO.HOP 11:04
PROVIDERS: Visit Provider Clinical Nurse Specialist Psychiatric/Mental Health
DX: F33.2 Major depressive disorder, recurrent severe without psychotic features (principal); F43.10 Post-traumatic stress disorder, unspecified; G25.81 Restless legs syndrome; F90.2 Attention-deficit hyperactivity disorder, combined type
CPT/HCPCS: 99215

== ENCOUNTER → 2024-10-01 11:04 | Outpatient (BNVA) | payer OTHER, SELFPAY | PROVIDERS: Visit Provider Clinical Nurse Specialist Psychiatric/Mental Health ==

== ENCOUNTER → 2024-10-15 13:05 | Outpatient (REF) | payer OTHER, SELFPAY ==
--- NOTE | 2024-10-15 13:10 | ECG_ITS ---
Test Reason : HALF-WAY RX THERAPY Blood Pressure : */* mmHG Vent. Rate : 86 BPM Atrial Rate : 86 BPM P-R Int : 128 ms QRS Dur : 92 ms QT Int : 336 ms P-R-T Axes : 78 79 -47 degrees QTcB Int : 402 ms Normal sinus rhythm Possible Left atrial enlargement Septal infarct , age undetermined T wave abnormality, consider inferior ischemia Abnormal ECG When compared with ECG of 26-Mar-2024 16:20, Inverted T waves have replaced nonspecific T wave abnormality in Inferior leads Nonspecific T wave abnormality now evident in Anterolateral leads Referred By: Fiorella Nettles Electronically Signed By: DEZ MARTINEZ MD
--- OUTSIDE RECORDS SUMMARY | 2024-10-15 15:22 | XMS_ITS | Encounter Summary ---
Author Organization [employer] Address [address] [facility] [address] [place] [address] Care Team Providers Care Senior Science Consultant Name Role Phone Unavailable Primary Care Provider Unavailabl e Reason for Visit * Reason Onset Date Comments insurance information/self pay 08/17/2024 Encounter Details Date Type Department Care Team (Late st Contact Info) Description 08/17/2024 Telephone [facility] [address] [place], [place] [phone] Kj Zurita, DMD [address] [place], [place] [phone] insurance information/self pay Social History Tobacco Use [...] 8:27 AM EST Patient states she has [employer] for insurance but does not have the [...]
--- OUTSIDE RECORDS SUMMARY | 2024-10-15 15:23 | XMS_ITS ---
Author Organization [facility] Address [address] [place] [phone] Care Team Providers Care Marketing Manager Health Communications Name Role Phone [facility] Primary Care Provider Karoline Mak Unavailable Encounters Encounter Location Date Provider Diagnosis [facility] [address] [place] [phone] 10/05/2023 Karoline Carcamo Plan Of Treatment No Information Progress Notes * Leigh BEEBEOB:1960 (62 yo F)Acc No.[id number]:10/05/2023 Case Management Patient:?Jaja Beebe Provider:?Karoline Carcamo :1960???Age:62 Y???Sex:Female D ate:10/05/2023 Address:[address] [place], [place] [phone] Pcp:[facility] Subjective: * Chief Complaints: * ??? * HPI: ???Social Service:?Referral Source?returning client.?Interpretation for medical provider?Mail knot picker cloth, housing.? [employer] real [employer] housing applications were filled out client is still waiting for the proof of income verification. * Medical History:? Objective: Assessment: Plan: * Treatment: * Images: Billing Information: * Visit Code:? * Procedure Codes:? Care Plan Details* * Sign off status: Completed true * Provider:?Karoline Carcamo Date:? Generated for Jay Jay cintron/Morales/Priyank on:?10/15/2024 03:22 PM EST History and Physical Notes * HPI (History of Present Illness) Category Sub-Category Detail Notes Social Service Referral Source returning client Interpretation for medical provider Mail knot picker cloth, housing
--- OUTSIDE RECORDS SUMMARY | 2024-10-15 15:23 | XMS_ITS | Patient Health Record ---
Author Organization [facility] Address [address] [place], [place] [phone] Care Team Providers Care Front Desk Worker Name Role Phone [facility] Primary Care Provider Karoline Mak Unavailable Reason For Referral No Information Plan Of Treatment No Information Insurance Providers Payer Name Payer Address Payer Phone Subscriber Number Group Number Insured Name Patient Relationship to Insured Coverage Start Date Coverage End Date [place] Medicare Part [place] [employer] [address] [place] [address] [id number] Jaja Beebe Self - patient is the insured 2 2
--- OUTSIDE RECORDS SUMMARY | 2024-10-15 15:23 | XMS_ITS | Encounter Summary ---
Author Organization [employer] Address [address] [facility] [address] [place] [address] Care Team Providers Care Mobile Home Lot Utility Worker Name Role Phone Unavailable Primary Care Provider Unavailabl e Encounter Details Date Type Department Care Team (Latest Contact Info) Description 10/26/2018 Abstract [facility] Dental, Provider, DDS Social History Tobacco [...]
--- OUTSIDE RECORDS SUMMARY | 2024-10-15 15:23 | XMS_ITS ---
Author Organization [facility] Address [address] [place] [phone] Care Team Providers Care Fabric Coating Supervisor Name Role Phone [facility] Primary Care Provider Karoline Mak Unavailable Encounters Encounter Location Date Provider Diagnosis [facility] [address] [place] [phone] 10/21/2023 Karoline Carcamo Plan Of Treatment No Information Progress Notes * Leigh BEEBEOB:1960 (63 yo F)Acc No.[id number]:10/21/2023 Case Management Patient:?Jaja BEEBE Provider:?Karoline Carcamo :1960???Age:62 Y???Sex:Female D ate:10/21/2023 Address:[address] [place], [place] [phone] Pcp:[facility] Subjective: * Chief Complaints: * ??? * Medical History:? Objective: Assessment: Plan: * Treatment: * Images: Billing Information: * Visit Code:? * Procedure Codes:? Care Plan Details* * Electronic signature of Jose Ramon Carcamo on 10/15/2024 at 03:22 PM EST Sign off status: Pending * Provider:Shagufta Carcamo Date:? Generated for Jay Jay cintron/Morales/eTransmitting on:?10/15/2024 03:22 PM EST
--- OUTSIDE RECORDS SUMMARY | 2024-10-15 15:23 | XMS_ITS ---
Author Organization [facility] Address [address] [place] [phone] Care Team Providers Care Systems Mgr Name Role Phone [facility] Primary Care Provider Karoline Mak Unavailable Encounters Encounter Location Date Provider Diagnosis [facility] [address] [place] [phone] 10/13/2023 Karoline Carcamo Plan Of Treatment No Information Progress Notes * Leigh BEEBEOB:1960 (63 yo F)Acc No.[id number]:10/13/2023 Case Management Patient:?Jaja BEEBE Provider:?Karoline Carcamo :1960???Age:62 Y???Sex:Female D ate:10/13/2023 Address:[address] [place], [place] [phone] Pcp:[facility] Subjective: * Chief Complaints: * [...]
--- OUTSIDE RECORDS SUMMARY | 2024-10-15 15:23 | XMS_ITS | Clinical Summary ---
Author Organization [employer] Address [address] [facility] 7t [place] [address] Care Team Providers Care Packing House Supervisor Name Role Phone Unavailable Primary Care Provider Unavailabl e Encounters Date Type Department Care Team Description 08/17/2024 Telephone [facility] ADULT D[facility] [address] [place] [phone] Kj Zurita DMD insurance information/self pay from [...] PCV) 07/18/2020 07/18/2019 COVID-19 Vaccine ( - season) 2024 06/19/2022, 07/29/2021, 09/29/2020, Additional history exists RSV Patients and Patients Aged 60 years or older (1 - 1-dose 75+ series) 2037 Influenza Vaccine Completed 06/05/2024, , 10/06/2021, Additional [...]
== END ==
LOC: HO.CARD 13:05
PROVIDERS: Visit Provider Clinical Nurse Specialist Psychiatric/Mental Health
DX: Z79.899 Other long term (current) drug therapy (principal)
CPT/HCPCS: 93005

== ENCOUNTER → 2024-10-15 13:10 | Outpatient (BNV) | payer OTHER, SELFPAY | PROVIDERS: Visit Provider Internal Medicine Cardiovascular Disease | DX: R94.31 Abnormal electrocardiogram [ECG] [EKG] (principal); Z79.899 Other long term (current) drug therapy | CPT/HCPCS: 93010 ==

== ENCOUNTER 2024-10-17 11:00 | Outpatient (RCR) | payer OTHER, SELFPAY ==
--- NOTE | 2024-09-12 21:57 | P.PNPS_ITS ---
TMS Daily Progress Note Daily TMS Progress Note Date of Service: 09/13/24 Week #: 1 Treatment #(09-13): 1 PHQ-9 Pre-Treatment (09-10): 11 PHQ-9 Most Recent (09-10): 11 Reviewed: TMS Mapping/Re-mapping completed Verification: I have reviewed the TMS Shearing Supervisor Note and agree with the contents. The patient remains a candidate to continue TMS treatment per protocol. Assessment and Plan (1) Major depressive disorder, recurrent, severe w/o psychotic behavior: Status: Acute Plan Pt s mapping completed discuussed issues related to lyrica dosing MT was higher than previously required consider if needed remap after lyrica adj if needed
--- NOTE | 2024-09-13 22:35 | HO.TMSDAILY2 ---
TMS Daily Progress Note Daily TMS Progress Note Date of Service: 09/25/24 Week #: 1 Treatment #(09-13): 2 PHQ-9 Pre-Treatment (09-10): 11 PHQ-9 Most Recent (09-10): 11 Reviewed: TMS Tech Note Reviewed Verification: I have reviewed the TMS Director Of Securities And Real Estate Note and agree with the contents. The patient remains a candidate to continue TMS treatment per protocol. Assessment and Plan (1) Major depressive disorder, recurrent, severe w/o psychotic behavior: Status: Acute Plan cont plan of care
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
--- NOTE | 2024-09-25 21:23 | P.PNPS_ITS ---
TMS Daily Progress Note Daily TMS Progress Note Date of Service: 09/14/24 Week #: 1 Treatment #(09-13): 3 PHQ-9 Pre-Treatment (09-10): 11 PHQ-9 Most Recent (09-10): 11 Reviewed: TMS Tech Note Reviewed Verification: I have reviewed the TMS Bilingual Kindergarten Teacher Note and agree with the contents. The patient remains a candidate to continue TMS treatment per protocol. Assessment and Plan (1) Major depressive disorder, recurrent, severe w/o psychotic behavior: Status: Acute Plan pt tolerating tx has anxiety
--- NOTE | 2024-09-25 21:27 | HO.TMSDAILY2 ---
TMS Daily Progress Note Daily TMS Progress Note Date of Service: 09/25/24 Week #: 1 Treatment #(09-13): 4 PHQ-9 Pre-Treatment (09-10): 11 PHQ-9 Most Recent (09-10): 11 Reviewed: TMS Tech Note Reviewed Verification: I have reviewed the TMS Ball Winder Note and agree with the contents. The patient remains a candidate to continue TMS treatment per protocol. Assessment and Plan (1) Major depressive disorder, recurrent, severe w/o psychotic behavior: Status: Acute Plan cont plan of care tolerating tx
--- NOTE | 2024-10-18 10:51 | P.PNPS_ITS ---
TMS Daily Progress Note Daily TMS Progress Note Date of Service: 09/28/24 Week #: 2 Treatment #(09-13): 6 PHQ-9 Pre-Treatment (09-10): 11 PHQ-9 Most Recent (09-10): 11 Reviewed: TMS Tech Note Reviewed Verification: I have reviewed the TMS Client Services Director Note and agree with the contents. The patient remains a candidate to continue TMS treatment per protocol.
--- NOTE | 2024-10-18 10:51 | P.PNPS_ITS ---
TMS Daily Progress Note Daily TMS Progress Note Date of Service: 10/03/24 Week #: 2 Treatment #(09-13): 8 PHQ-9 Pre-Treatment (09-10): 11 PHQ-9 Most Recent (09-10): 9 Reviewed: TMS Tech Note Reviewed Verification: I have reviewed the TMS Industrial Service Technician Note and agree with the contents. The patient remains a candidate to continue TMS treatment per protocol. Assessment and Plan (1) Major depressive disorder, recurrent, severe w/o psychotic behavior: Status: Acute Plan had post tms headache cont plan of care had previous good response to tx
--- NOTE | 2024-10-18 10:51 | P.PNPS_ITS ---
TMS Daily Progress Note Daily TMS Progress Note Date of Service: 09/27/24 Week #: 1 Treatment #(09-13): 5 PHQ-9 Pre-Treatment (09-10): 11 PHQ-9 Most Recent (09-10): 5 Reviewed: TMS Tech Note Reviewed Verification: I have reviewed the TMS Porcelain Enamel Installer Note and agree with the contents. The patient remains a candidate to continue TMS treatment per protocol. Assessment and Plan (1) Major depressive disorder, recurrent, severe w/o psychotic behavior: Status: Acute
--- NOTE | 2024-10-18 10:51 | HO.TMSDAILY2 ---
TMS Daily Progress Note Daily TMS Progress Note Date of Service: 10/02/24 Week #: 2 Treatment #(09-13): 7 PHQ-9 Pre-Treatment (09-10): 11 PHQ-9 Most Recent (09-10): 9 Reviewed: TMS Tech Note Reviewed Verification: I have reviewed the TMS Administrative Director Note and agree with the contents. The patient remains a candidate to continue TMS treatment per protocol. Assessment and Plan (1) Major depressive disorder, recurrent, severe w/o psychotic behavior: Status: Acute Plan cont plan of care encourage regular attendance
--- NOTE | 2024-10-18 10:51 | HO.TMSDAILY2 ---
TMS Daily Progress Note Daily TMS Progress Note Date of Service: 10/04/24 Week #: 2 Treatment #(09-13): 9 PHQ-9 Pre-Treatment (09-10): 11 PHQ-9 Most Recent (09-10): 9 Reviewed: TMS Tech Note Reviewed Verification: I have reviewed the TMS Can Sterilizer Note and agree with the contents. The patient remains a candidate to continue TMS treatment per protocol. Assessment and Plan (1) Major depressive disorder, recurrent, severe w/o psychotic behavior: Status: Acute Plan cont plan of care some c/o headache
--- NOTE | 2024-10-18 21:53 | HO.TMSDAILY2 ---
TMS Daily Progress Note Daily TMS Progress Note Date of Service: 10/05/24 Week #: 2 Treatment #(09-13): 10 PHQ-9 Pre-Treatment (09-10): 11 PHQ-9 Most Recent (09-10): 9 Reviewed: TMS Tech Note Reviewed Verification: I have reviewed the TMS Job Training Supervisor Note and agree with the contents. The patient remains a candidate to continue TMS treatment per protocol. Assessment and Plan (1) Major depressive disorder, recurrent, severe w/o psychotic behavior: Status: Acute Plan Some complaints of insomnia has been on Belsomra
--- NOTE | 2024-10-18 21:55 | HO.TMSDAILY2 ---
TMS Daily Progress Note Daily TMS Progress Note Date of Service: 10/08/24 Week #: 3 Treatment #(09-13): 11 PHQ-9 Pre-Treatment (09-10): 11 PHQ-9 Most Recent (09-10): 4 Reviewed: TMS Tech Note Reviewed Verification: I have reviewed the TMS Floodplain Manager Note and agree with the contents. The patient remains a candidate to continue TMS treatment per protocol. Assessment and Plan (1) Major depressive disorder, recurrent, severe w/o psychotic behavior: Status: Acute Plan cont plan of care improved phq 9
--- NOTE | 2024-10-18 21:58 | HO.TMSDAILY2 ---
TMS Daily Progress Note Daily TMS Progress Note Date of Service: 10/18/24 Week #: 3 Treatment #(09-13): 12 PHQ-9 Pre-Treatment (09-10): 11 PHQ-9 Most Recent (09-10): 4 Reviewed: TMS Tech Note Reviewed Verification: I have reviewed the TMS Engine Service Repairer Note and agree with the contents. The patient remains a candidate to continue TMS treatment per protocol. Assessment and Plan (1) Major depressive disorder, recurrent, severe w/o psychotic behavior: Status: Acute Plan pt feeling better generally cont plan of care
--- NOTE | 2024-10-18 22:01 | P.PNPS_ITS ---
TMS Daily Progress Note Daily TMS Progress Note Date of Service: 10/11/24 Week #: 3 Treatment #(09-13): 13 PHQ-9 Pre-Treatment (09-10): 11 PHQ-9 Most Recent (09-10): 4 Reviewed: TMS Tech Note Reviewed Verification: I have reviewed the TMS Instrumentation Supervisor Note and agree with the contents. The patient remains a candidate to continue TMS treatment per protocol. Assessment and Plan (1) Major depressive disorder, recurrent, severe w/o psychotic behavior: Status: Acute Plan pt has been more anxious had argument with her last nite
--- NOTE | 2024-10-18 22:05 | HO.TMSDAILY2 ---
TMS Daily Progress Note Daily TMS Progress Note Date of Service: 10/12/24 Week #: 3 Treatment #(09-13): 14 PHQ-9 Pre-Treatment (09-10): 11 PHQ-9 Most Recent (09-10): 4 Reviewed: TMS Tech Note Reviewed Verification: I have reviewed the TMS Tray Delivery Aide Note and agree with the contents. The patient remains a candidate to continue TMS treatment per protocol. Assessment and Plan (1) Major depressive disorder, recurrent, severe w/o psychotic behavior: Status: Acute Plan cont plan of care pt more erratic with couple difficulties
--- NOTE | 2024-10-18 22:09 | P.PNPS_ITS ---
TMS Daily Progress Note Daily TMS Progress Note Date of Service: 10/15/24 Week #: 3 Treatment #(09-13): 15 PHQ-9 Pre-Treatment (09-10): 11 PHQ-9 Most Recent (09-10): 9 Reviewed: TMS Tech Note Reviewed Verification: I have reviewed the TMS Cash Posting Representative Note and agree with the contents. The patient remains a candidate to continue TMS treatment per protocol. Assessment and Plan (1) Major depressive disorder, recurrent, severe w/o psychotic behavior: Status: Acute Plan Patient had an increasing difficulty with her had concerns regarding overuse of benzodiazepines
--- NOTE | 2024-10-18 22:12 | P.PNPS_ITS ---
TMS Daily Progress Note Daily TMS Progress Note Date of Service: 10/17/24 Week #: 4 Treatment #(09-13): 16 PHQ-9 Pre-Treatment (09-10): 11 PHQ-9 Most Recent (09-10): 9 Reviewed: TMS Tech Note Reviewed Verification: I have reviewed the TMS [employer] Support Note and agree with the contents. The patient remains a candidate to continue TMS treatment per protocol. Assessment and Plan (1) Major depressive disorder, recurrent, severe w/o psychotic behavior: Status: Acute Plan increasingly erratic unstable denies active si may go to er for eval
== END 2024-10-18 09:00 | disposition admitted as inpatient to this hospital (09) ==
LOC: HO.PTMS 11:00
PROVIDERS: Visit Provider Clinical Nurse Specialist Psychiatric/Mental Health
DX: F33.2 Major depressive disorder, recurrent severe without psychotic features (principal); F43.10 Post-traumatic stress disorder, unspecified; F41.1 Generalized anxiety disorder; F90.2 Attention-deficit hyperactivity disorder, combined type; G25.81 Restless legs syndrome
CPT/HCPCS: 90867; 90868

== ENCOUNTER 2024-10-17 16:33 | Inpatient (IN) | payer OTHER, SELFPAY ==
--- NOTE | ~2024-10-17 | CT_ITS ---
CLINICAL HISTORY: unsteady gait CT head without contrast Comparison: MR/SR - MR HEAD/BRAIN WO CON - 06/29/22 14:07 EST MR - MRI BRAIN WITHOUT CONT 12530 - 08/01/09 00:00 EST Findings: No intra-axial mass, midline shift, hydrocephalus, or acute hemorrhage. No significant atrophy-like change or white matter disease. Mild mucosal thickening in the left maxillary sinus. No acute findings in the orbits. No skull fracture. Degenerative changes of the TMJs. IMPRESSION: 1. No acute intracranial findings. This document has been electronically signed by: Chalo Pierce MD on 10/17/2024 18:10:50
--- NOTE | ~2024-10-17 | CT_ITS ---
EXAMINATION: CT HEAD WITHOUT CONTRAST CLINICAL INFORMATION: MCI, mood changes,? Dementia. COMPARISON: 10/17/2024. TECHNIQUE: Contiguous axial imaging was performed from the skull base to vertex without intravenous administration of contrast. This CT examination was performed using dose optimization techniques as appropriate, variously including the following: *Automated exposure control *Adjustment of mA and/or kV according to patient size (this includes techniques or standardized protocols for targeted exams where dose is matched to indication/reason for exam; i.e. extremities or head) *Use of iterative reconstruction technique FINDINGS: There is no evidence of intracranial hemorrhage or extra-axial fluid collection. There is no mass effect, or edema. No CT evidence of acute territorial infarct. Ventricles, sulci, and cisterns are normal in size and configuration for patient age. No abnormal pattern of atrophy. No hydrocephalus. No midline shift. Negative hyperdense MCA sign. Negative insular ribbon sign. No significant white matter abnormalities. Normal pituitary. Globes and orbital contents image normally. Bilateral lens replacements are present. No extracranial soft tissue abnormalities. Mild chronic mucosal thickening left maxillary sinus. The remainder of the paranasal sinuses, mastoid air cells, and tympanic cavities are normally aerated. No suspicious bony abnormalities. There are no acute fractures evident. There are significant degenerative changes in both TM joints. CT/CT head/brain wo IV con IMPRESSION: 1. No acute intracranial abnormality. 2. Severe degenerative TM joint changes. 3. Mild chronic left maxillary sinus disease. Electronically signed by: Rubens Geiger MD 10/23/2024 12:11 PM EDT
--- NOTE | 2024-10-17 16:51 | ED_ITS ---
HPI - Psych General Chief Complaint: Psychiatric Symptoms Stated Complaint: PSYC EVAL Time Seen by Provider: 10/17/24 16:56 Source: patient, RN notes reviewed and old records reviewed Mode of arrival: ambulatory Limitations: no limitations History of Present Illness ED Provider: Sarath HPI Narrative: 63-year-old female past medical history significant for major depressive disorder with psychotic features, osteoarthritis, restless legs syndrome, anxiety, type 2 diabetes, ADHD, hypothyroidism rapid, who presents for evaluation of multiple complaints including confusion, unstable gait. The patient reports that about 1 week ago, last Tuesday she was started on lithium. She had previously been on this medication without any issues. She reports that 3 days after restarting the lithium P developed neuro features including difficulty walking, slurred speech, confusion, memory issues. She has been talking to her doctor and discontinued lithium, her last dose was yesterday morning She feels as though she continues to have unsteady gait, confusion and memory issues She denies any pain It sounds as though she saw her doctor yesterday and was sent to the ER for inpatient psychiatric care. The patient's outpatient provider is Dr. Ricks Related Data Home Medications ?Medication ?Instructions ?Recorded ?Confirmed lithium carbonate 150 mg capsule 150 mg PO QAM 10/17/24 10/17/24 lithium carbonate 300 mg 300 mg PO BEDTIME 10/17/24 10/17/24 tablet,extended release Previous Rx's ?Medication ?Instructions ?Recorded albuterol sulfate 90 mcg/actuation 2 puff inhalation Q4-6H PRN 09/21/24 aerosol inhaler (Ventolin HFA) wheezing 30 days #1 inhaler modafinil 200 mg tablet 200 mg PO QAM #30 tabs 10/01/24 pramipexole 0.5 mg tablet 0.5 mg PO TID 30 days #90 tabs 10/01/24 pregabalin 150 mg capsule 150 mg PO BID 30 days #60 caps 10/01/24 pregabalin 200 mg capsule 200 mg PO BEDTIME 30 days #30 caps 10/01/24 guanfacine 1 mg tablet,extended 1 mg PO QID 30 days #120 tabs 10/16/24 release 24 hr lorazepam 1 mg tablet 1 mg PO DAILY PRN anxiety #10 tabs 10/16/24 Allergies Allergy/AdvReac Type Severity Reaction Status Date / Time olanzapine [From ZYPREXA] AdvReac Intermediate RLS Verified 10/17/24 16:56 symptoms clonidine AdvReac RLS Verified 10/17/24 16:56 diphenhydramine AdvReac RLS Verified 10/17/24 16:56 [From Benadryl] hydroxyzine AdvReac RLS Verified 10/17/24 16:56 melatonin AdvReac RLS Verified 10/17/24 16:56 atypical antipsychotics AdvReac Severe This class Uncoded 09/03/24 11:02 appears to potentiate RLS/Akathesia Review of Systems 2 Constitutional: Constitutional: Denies chills, Denies fever(s) and Denies headache(s) Eyes: Eyes: Denies blurry vision and Denies loss of vision ENT: Denies vertigo, Denies dizziness, Denies headache(s) and Reports disequilibrium Cardiovascular: Cardiovascular: Denies chest pain and Denies dyspnea Respiratory: Respiratory: Denies cough and Denies dyspnea Gastrointestinal: Gastrointestinal: Denies abdominal pain, Denies nausea and Denies vomiting Musculoskeletal: Musculoskeletal: Reports abnormal gait Integumentary/Breasts: Skin/Breast: Denies rash Neurologic: Reports Abnormal speech present, Reports abnormal gait, Reports behavioral changes, Denies vertigo, Denies dizziness, Denies headache(s), Denies loss of vision, Reports memory loss, Reports restless legs and Reports disequilibrium Psychiatric: Psychiatric: Reports anxiety, Reports behavioral changes, Reports difficulty concentrating and Reports memory loss [facility] Past Medical History Medical History (Updated 10/17/24 @ 19:30 by Matt Clemens) Substance induced mood disorder Major depression, recurrent, chronic Bipolar II disorder Nicotine dependence, cigarettes, uncomplicated Bipolar disorder, current episode depressed, moderate Misuse of prescription only drugs 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 mutation [id number] Post-traumatic stress disorder, unspecified ADHD Hypothyroidism Generalized anxiety disorder Polysubstance use disorder Cannabis use disorder Cocaine use disorder Acute medication-induced akathisia Osteopenia of multiple sites Skin lesion of back Syncope Type II diabetes mellitus Fibromyalgia Benzodiazepine abuse RLS (restless legs syndrome) COPD (chronic obstructive pulmonary disease) HLD (hyperlipidemia) Surgical History History of vaginal hysterectomy History of cataract surgery Family History Family History Mother CAD (coronary artery disease) Father Alcoholism Son Substance use disorder Son Substance use disorder Social History Social History Household Members: Unknown / Unable to assess Household Members Other:: son's girlfriend Housing: Unknown / Unable to assess Do you presently have visiting nurse or other home services: No Unable to assess alcohol history related to: Unknown Alcohol intake: never Comment: Pt reports falling d/t excessive intake of Benzo's prior to admission Patient Tobacco Use Status: Current someday Tobacco user Tobacco use type: Cigarette Cigarette Packs Per Day: 1 Cigarettes Per Day: 20.0 Years Smoked: 45 e-Cigarette/Vaping Use: Never Used Second Hand Smoke Exposure: No Substance Use Type: Marijuana Advance Directives: Yes Advance Directives on File: Yes Advance Directives Date on File: 06/05/24 Do you have a plan to hurt others: No Plan service: No Current occupational status: unemployed Sexual orientation: Straight/Heterosexual Cognitive needs: No Hearing needs: No Vision needs: No Physical Exam 2 Vital Signs: Vital Signs: Last Vital Signs Temp 97.5 F 10/17/24 16:52 Pulse 81 10/17/24 16:52 Resp 18 10/17/24 16:52 BP 116/67 10/17/24 16:52 Pulse Ox 93 10/17/24 16:52 O2 Del Method Room Air 10/17/24 16:52 BMI result Body Mass Index 19.1 Const: Other: Patient appears much older than stated age General: healthy appearing, comfortable, no acute distress, alert and awake Nutritional Appearance: well nourished Orientation/consciousness: patient oriented x3 HEENT: Head: Yes normocephalic and Yes atraumatic Eyes: Eyelids: Yes eyelids normal Conjunctivae: conjunctivae normal S clerae: sclerae normal Corneas: corneas normal Pupils: Equal, round and reactive pupils present EOM: EOMs intact bilaterally Neck: Neck: Yes full ROM Resp: Effort & Inspection: normal respiratory effort, able to speak in complete sentences and not labored Skin: General skin exam: elasticity normal Neuro: General: patient oriented x3 Cranial nerves: Yes CN's II-XII intact bilaterally, Yes Equal, round and reactive pupils present and Yes Bilaterally intact EOM present Cognition (Neuro): normal cognition Speech: Abnormal speech present Motor exam (neuro): 5/5 motor strength present throughout, Pronator motor function not present, no tremor noted and no asterixis C oordination: No hdtaus-[id number] test normal (Patient does have some difficulty with ykchmm-sn-yskn testing.) Course Course Course Narrative: This is a Rapid Medical Exam performed in triage by Meghan Barakat PA-C. Full HPI, ROS and PE to be performed by primary ED provider. 63 yo F with a past medical history depression, restless leg syndrome, anxiety, sore arthritis, diabetes, ADHD, hypothyroid, COPD, HLD presenting to the ED c/o suspected adverse rxn to newly Rx [place], causing her to be staggering & speech was off since starting [place] which they discontinued yesterday. reports visual hallucinations & struggling with her mental health. states was told she needs to go inpatient by her psych provider denies SI/HI PE: lethargic, falling asleep during eval. Staggering, unsteady gait Plan: labs, UA, HALL, head CT, CARE team consult Reevaluation(s) Reevaluation #1: Patient is seen by the care team and will be a bed search for inpatient psychiatric care. Patient placed in physician observation status Time: 23:02 Medical Decision Making Medical Decision Making MDM Narrative: 63-year-old female with past medical history as documented above presents for evaluation of neuro symptoms. His symptoms the her outpatient psychiatrist believes this is attributed to her lithium as her symptoms started shortly after restarting lithium. On exam she has some difficulty with gsmgjw-kj-cggk testing but has an NIH stroke score is 0. I have a low suspicion for CVA but a CT scan of the brain was ordered. We will also check basic labs. If medically cleared, the patient will be referred to the care team Differential Diagnosis Differential Diagnoses: The differential diagnosis associated with the presentation includes [place] toxicity Adverse reaction to psychiatric medication CVA Intracranial mass Lab Data MDM Lab Attestation statement: I reviewed the patient's lab results. No leukocytosis or anemia. Normal platelet count. No electrolyte abnormalities. 10/17/24 17:56 10/17/24 17:56 Labs: Lab Results 10/17/24 10/17/24 10/17/24 Range/Units 17:14 17:56 17:59 WBC 8.8 (4.8-10.8) X10*3/uL RBC 3.73 L (4.20-5.50) X10*6/uL Hgb 12.6 (12.0-16.0) g/dl Hct 37.2 (37.0-47.0) % MCV 99.7 H (80.0-98.0) fL MCH 33.8 H (27.0-33.0) pg MCHC 33.9 (31.0-35.0) g/dl RDW 13.4 (11.0-16.0) % Plt Count 378 (160-400) X10*3/uL MPV 10.5 (9.4-12.3) fL Immature Gran % (Auto) 0.2 (0.0-0.4) % Neut % (Auto) 60.9 (45-73) % Lymph % (Auto) 25.3 (20-40) % [facility] % (Auto) 8.9 (2-11) % Eos % (Auto) 4.0 (0-4) % Baso % (Auto) 0.7 (0-2) % Lymph # (Auto) 2.2 (1.2-4.9) X10*3/uL [facility] # (Auto) 0.8 (0.1-1.2) X10*3/uL Eos # (Auto) 0.4 (0.0-0.4) X10*3/uL Baso # (Auto) 0.1 (0.0-0.2) X10*3/uL Abs Immat Gran (auto) 0.02 (0.00-0.03) X10*3/uL Absolute Neuts (auto) 5.3 (2.0-8.3) x10*3/uL Absolute Nucleated RBC 0.000 (0.0-0.012) X10*3/uL Nucleated RBC % (auto) 0.0 (0.0-0.2) /100WBC Sodium 139 (135-145) mmol/L Potassium 4.2 (3.3-5.1) mmol/L Chloride 107 (96-108) mmol/L Carbon Dioxide 27 (22-29) mmol/L Anion Gap 9 L (12-20) BUN 13 (9-16) mg/dL Creatinine 0.70 (0.5-1.4) mg/dL Estim Creat Clear Calc 61.0 Estimated GFR > 60 Random Glucose 121 H (60-115) mg/dL Calcium 9.0 (8.4-10.2) mg/dL Magnesium 1.9 (1.6-2.6) mg/dL Total Bilirubin 0.4 (0.0-1.0) mg/dL Direct Bilirubin 0.1 (0.0-0.5) mg/dL AST 23 (5-31) U/L ALT 20 (0-31) U/L Alkaline Phosphatase 98 (39-117) U/L Total Protein 7.2 (6.5-8.0) g/dL Albumin 4.2 (3.5-5.0) g/dL Urine Color Yellow Urine Appearance Clear Urine pH 6.0 (5.0-9.0) Ur Specific [place] 1.015 (1.005-1.025) Urine Protein Negative (Neg-Trace) mg/dL Urine Glucose (UA) Negative (Negative) mg/dL Urine Ketones Negative (Negative) mg/dL Urine Blood Trace H (Negative) Urine Nitrite Negative (Negative) Ur Leukocyte Esterase Small (1+) H (Negative) Urine RBC 3-5 H (0-2) /HPF Urine WBC 6-10 H (0-5) /HPF Ur Squamous Epith Cells 6-10 (0-2) /HPF Urine Bacteria 1+ (None Seen) Hyaline Casts 0-2 (0-2) /LPF Urine Opiates Screen Not Detected (Not Detect) Ur Buprenorphine Scrn Not Detected (Not Detect) ng/mL Ur Oxycodone Screen Not Detected (Not Detect) ng/mL Urine Methadone Screen Not Detected (Not Detect) ng/mL Urine Fentanyl Screen Not Detected (Not Detect) Ur Barbiturates Screen Not Detected (Not Detect) Ur Phencyclidine Scrn Not Detected (Not Detect) Ur Amphetamines Screen Not Detected (Not Detect) U Benzodiazepines Scrn Not Detected (Not Detect) [place] 0.35 L (0.60-1.20) mmol/L Urine Cocaine Screen Not Detected (Not Detect) U Marijuana (THC) Screen POSITIVE H (Not Detect) Ethyl Alcohol < 10 mg/dL Influenza Type A (PCR) NEGATIVE (Negative) Influenza Type B (PCR) NEGATIVE (Negative) RSV RNA Qual (PCR) NEGATIVE (Negative) SARS-CoV-2 RNA (RT-PCR) NEGATIVE (Negative) Radiology Impression Discussion of test interpretation with radiology: I have reviewed the radiologist's reading. Radiologist Impression: Findings: No intra-axial mass, midline shift, hydrocephalus, or acute hemorrhage. No significant atrophy-like change or white matter disease. Mild mucosal thickening in the left maxillary sinus. No acute findings in the orbits. No skull fracture. Degenerative changes of the TMJs. IMPRESSION: 1. No acute intracranial findings. This document has been electronically signed by: Chalo Pierce MD on 10/17/2024 18:10:50 Discharge Plan Discharge Clinical Impression: Acute psychosis Patient Disposition: Still a Patient Prescriptions: No Action albuterol sulfate [Ventolin HFA] 90 mcg/actuation HFA aerosol inhaler 2 puff inhalation Q4-6H PRN (Reason: wheezing) 30 Days Qty: 1 3RF lorazepam 1 mg tablet 1 mg PO DAILY PRN (Reason: anxiety) Qty: 10 2RF guanfacine 1 mg tablet extended release 24 hr 1 mg PO QID 30 Days Qty: 120 2RF Rx Instructions: Take one tablet 4 times a day at 7am, 12pm and 5pm, and bedtime lithium carbonate 300 mg tablet extended release 300 mg PO BEDTIME lithium carbonate 150 mg capsule 150 mg PO QAM pregabalin 200 mg capsule 200 mg PO BEDTIME 30 Days Qty: 30 1RF pramipexole 0.5 mg tablet 0.5 mg PO TID 30 Days Qty: 90 1RF modafinil 200 mg tablet 200 mg PO QAM Qty: 30 1RF pregabalin 150 mg capsule 150 mg PO BID 30 Days Qty: 60 1RF Rx Instructions: take one cap in the morning and one at 3 pm. Interventions: Sarah-Suicide Risk Severity Scale Last Done: 10/17/24 19:40 Print Language: Iranian
[2024-10-17 16:52] VITALS: BP 116/67; PULSE 81; RESP 18; TEMP 36.4; O2SAT 93; BMI 19.1
[2024-10-17 17:22] LABS: Appearance Urine Clear; Color Urine Yellow; Glucose Urine UA Negative (Negative); Leukocyte Esterase Urine Small (1+) (Negative); Nitrite Urine Negative (Negative); Specific Gravity - Urine 1.015 (1.005-1.025); UMIC TRIGGER UACC YES; Urine Blood Trace (Negative); Urine Ketones Negative (Negative); Urine Protein Negative (Neg-Trace)
[2024-10-17 17:26] LABS: Bacteria Urine 1+ (None Seen); Hyaline Casts Urine 0-2 /LPF (0-2); UACC Culture Trigger YES
[2024-10-17 17:33] LABS: Amphetamine Screen Urine Not Detected (Not Detect); Barbiturates, Urine Not Detected (Not Detect); Benzodiazepines Screen Urine Not Detected (Not Detect); Buprenorphine Scr Not Detected (Not Detect); Cannabinoid Screen Urine POSITIVE (Not Detect); Cocaine Screen Urine Not Detected (Not Detect); Fentanyl, urine Not Detected (Not Detect); Methadone Screen, Urine Not Detected (Not Detect); Opiate Screen Urine Not Detected (Not Detect); Oxycodone Screen Urine Not Detected (Not Detect); Phencyclidine Screen Urine Not Detected (Not Detect)
[2024-10-17 18:03] LABS: MANUAL DIFF FLAG NO
[2024-10-17 18:15] LABS: Lithium 0.35 mmol/L (0.60-1.20)
[2024-10-17 18:27] LABS: Alanine Aminotransferase 20 U/L (0-31); Albumin Level 4.2 g/dL (3.5-5.0); Alkaline Phosphatase 98 U/L (39-117); Anion Gap 9 (12-20); Aspartate Amino Transferase 23 U/L (5-31); Bilirubin Direct 0.1 mg/dL (0.0-0.5); Bilirubin Total 0.4 mg/dL (0.0-1.0); Blood Urea Nitrogen 13 mg/dL (9-16); Carbon Dioxide 27 mmol/L (22-29); Chloride 107 mmol/L (96-108); Estimated Glomerular Filt Rate > 60; Ethanol < 10 mg/dL; Glucose Random 121 mg/dL (60-115); Magnesium 1.9 mg/dL (1.6-2.6); Potassium 4.2 mmol/L (3.3-5.1); Sodium 139 mmol/L (135-145); Total Protein 7.2 g/dL (6.5-8.0)
[2024-10-17 18:44] LABS: Influenza A PCR NEGATIVE (Negative); Influenza B PCR NEGATIVE (Negative); Resp Syncy Virus RNA Qual PCR NEGATIVE (Negative); SARS COV2 PCR INHOUSE NEGATIVE (Negative)
[2024-10-17 18:47] LABS: Basophils Absolute Auto 0.1 X10*3/uL (0.0-0.2); Basophils Percent Auto 0.7 % (0-2); Eosinophils Absolute Auto 0.4 X10*3/uL (0.0-0.4); Hematocrit 37.2 % (37.0-47.0); Hemoglobin 12.6 g/dl (12.0-16.0); Imm Gran Abs Auto 0.02 X10*3/uL (0.00-0.03); Imm Gran Pct Auto 0.2 % (0.0-0.4); Lymphocytes Absolute Auto 2.2 X10*3/uL (1.2-4.9); Lymphocytes Percent Auto 25.3 % (20-40); Mean Corpuscular HGB Conc 33.9 g/dl (31.0-35.0); Mean Corpuscular Hemoglobin 33.8 pg (27.0-33.0); Mean Corpuscular Volume 99.7 fL (80.0-98.0); Mean Platelet Volume 10.5 fL (9.4-12.3); Monocytes Absolute Auto 0.8 X10*3/uL (0.1-1.2); Monocytes Percent Auto 8.9 % (2-11); Neutrophils Absolute Auto 5.3 x10*3/uL (2.0-8.3); Neutrophils Percent Auto 60.9 % (45-73); Platelet Count 378 X10*3/uL (160-400); Red Blood Count 3.73 X10*6/uL (4.20-5.50); Red Cell Distribution Width 13.4 % (11.0-16.0); White Blood Count 8.8 X10*3/uL (4.8-10.8)
--- NOTE | 2024-10-17 19:20 | PC.NURSE ---
patient appears to remain at rest presently respirations are ev en and unlabored patient appears in no distress
--- OUTSIDE RECORDS SUMMARY | 2024-10-17 19:37 | XMS_ITS | Patient Health Record ---
Author Organization [facility] Address [address] [place], [place] [phone] Care Team Providers Care Proposal Manager Writer Name Role Phone [facility] Primary Care Provider Karoline Mak Unavailable [phone] Reason For Referral No Information Plan Of Treatment No Information Insurance Providers Payer Name Payer Address Payer Phone Subscriber Number Group Number Insured Name Patient Relationship to Insured Coverage Start Date Coverage End Date [place] Medicare Part [place] [employer] [address] [place] [phone] [id number] Jaja Beebe Self - patient is the insured 2 2
--- OUTSIDE RECORDS SUMMARY | 2024-10-17 19:37 | XMS_ITS | Encounter Summary ---
Author Organization [employer] Address [address] [facility] [address] [place] [address] Care Team Providers Care Die Grinder Name Role Phone Unavailable Primary Care Provider Unavailabl e Encounter Details Date Type Department Care Team (Latest Contact Info) Description 10/26/2018 Abstract [facility] CONVERSIONS Dental, Provider, DDS Social History Tobacco [...]
--- OUTSIDE RECORDS SUMMARY | 2024-10-17 19:37 | XMS_ITS ---
Author Organization [facility] Address [address] [place] [phone] Care Team Providers Care Coding Specialist Name Role Phone [facility] Primary Care Provider Karoline Mak Unavailable Encounters Encounter Location Date Provider Diagnosis [facility] [address] [place] [phone] 10/13/2023 Karoline Carcamo Plan Of Treatment No Information Progress Notes * Leigh BEEBEOB:1960 (63 yo F)Acc No.[id number]:10/13/2023 Case Management Patient:?Jaja BEEBE Provider:?Karoline Carcamo :1960???Age:62 Y???Sex:Female D ate:10/13/2023 Address:[address] [place], [place] [phone] Pcp:[facility] Subjective: * Chief Complaints: * ??? * Medical History:? Objective: Assessment: Plan: * Treatment: * Images: Billing Information: * Visit Code:? * Procedure Codes:? Care Plan Details* * Electronic signature of Jose Ramon Carcamo on 10/17/2024 at 07:37 PM EST Sign off status: Pending * Provider:Shagufta Carcamo Date:? Generated for Jay Jay cintron/Morales/eTransmitting on:?10/17/2024 07:37 PM EST
--- OUTSIDE RECORDS SUMMARY | 2024-10-17 19:37 | XMS_ITS ---
Author Organization [facility] Address [address] [place] [phone] Care Team Providers Care News Intern Name Role Phone [facility] Primary Care Provider Karoline Mak Unavailable Encounters Encounter Location Date Provider Diagnosis [facility] [address] [place] [phone] 10/05/2023 Karoline Carcamo Plan Of Treatment No Information Progress Notes * Leigh BEEBEOB:1960 (62 yo F)Acc No.[id number]:10/05/2023 Case Management Patient:?Jaja Beebe Provider:?Karoline Carcamo :1960???Age:62 Y???Sex:Female D ate:10/05/2023 Address:[address] [place], [place] [phone] Pcp:[facility] Subjective: * Chief Complaints: * ??? 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 [facility] and [employer] real [employer] housing applications were filled out client is still waiting for the proof of income verification. * Medical History:? Objective: Assessment: Plan: * Treatment: * Images: Billing Information: * Visit Code:? * Procedure Codes:? Care Plan Details* * Sign off status: Completed true * Provider:?Karoline Carcamo Date:? 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
--- OUTSIDE RECORDS SUMMARY | 2024-10-17 19:37 | XMS_ITS | Clinical Summary ---
Author Organization [employer] Address [address] [facility] 7[address] [place] [address] Care Team Providers Care Logging Superintendent Name Role Phone Unavailable Primary Care Provider Unavailabl e Encounters Date Type Department Care Team Description 08/17/2024 Telephone [facility] ADULT DENTAL [address] [place] [address] Kj Zurita DMD insurance information/self pay from [...]
--- OUTSIDE RECORDS SUMMARY | 2024-10-17 19:37 | XMS_ITS | Encounter Summary ---
Author Organization [employer] Address [address] [facility] 7t [place] [address] Care Team Providers Care Benzene Operator Name Role Phone Unavailable Primary Care Provider Unavailabl e Reason for Visit * Reason Onset Date Comments insurance information/self pay 08/17/2024 Encounter Details Date Type Department Care Team (Late st Contact Info) Description 08/17/2024 Telephone [facility]ULT [facility] [address], [place] [phone] Kj Zurita, DMD [address], [place] [phone] insurance information/self pay Social History Tobacco Use [...] 8:27 AM EST Patient states she has [employer] for insurance but does not have the [...]
--- NOTE | 2024-10-17 20:17 | MHC.CARE ---
CARE team recommending [facility]
--- NOTE | 2024-10-17 23:38 | PC.NURSE ---
Took over care from RN Arlen, pt requesting a sandwich and drink , pt back in room
[2024-10-18 05:48] VITALS: BP 115/71; PULSE 85; RESP 16; TEMP 36.7; O2SAT 94
--- NOTE | 2024-10-18 05:55 | PC.NURSE ---
pt given Tea several time. pt redirected to room several time.
[2024-10-18] MEDS: LORazepam 1 MG TABLET PO (07:01)
--- NOTE | 2024-10-18 07:02 | PC.NURSE ---
medicated per mar.
[2024-10-18] MEDS: Pramipexole Di-HCL 0.25 MG TABLET 0.5 MG PO ×3 (08:21→21:07)
[2024-10-18] MEDS: modafiniL 100 MG TABLET 200 MG PO (08:21)
[2024-10-18] MEDS: Pregabalin 150 MG CAPSULE PO ×2 (08:21→21:08)
--- NOTE | 2024-10-18 08:50 | PC.NURSE ---
Awaiting missing 09:00 meds. per pharmacy at this time.
[2024-10-18] MEDS: guanFACINE HCl ER 1 MG TAB.ER.24H PO ×3 (09:37→16:03)
[2024-10-18] MEDS: Lithium Carbonate 300 MG TABLET 150 MG PO (09:37)
--- NOTE | 2024-10-18 11:25 | PHA.MEDREC ---
Addendum entered by David Valdes RPh 10/18/24 11:47: Med rec was reviewed by [facility]. Original Note: Pharmacy Consult ? Medication Reconciliation Pharmacy has completed the medication reconciliation. Spoke with patient and family member at bedside. She is no longer taking Belsomra (bad reaction) and did not start taking magnesium glycinate.
[2024-10-18 12:43] VITALS: BP 100/66; PULSE 70; RESP 16; TEMP 36.8; O2SAT 92
--- NOTE | 2024-10-18 12:52 | ECG_ITS ---
Test Reason : CHECK QT Blood Pressure : */* mmHG Vent. Rate : 65 BPM Atrial Rate : 65 BPM P-R Int : 136 ms QRS Dur : 98 ms QT Int : 396 ms P-R-T Axes : 71 76 -32 degrees QTcB Int : 411 ms Normal sinus rhythm Minimal voltage criteria for LVH, may be normal variant ( [place] product ) Septal infarct (cited on or before 15-Oct-2024) Abnormal ECG When compared with ECG of 15-Oct-2024 13:07, No significant change was found Referred By: Rubi Garces Electronically Signed By: DEZ MARTINEZ MD
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
[2024-10-18 15:17] LABS: Alanine Aminotransferase 17 U/L (0-31); Albumin Level 3.9 g/dL (3.5-5.0); Anion Gap 9 (12-20); Aspartate Amino Transferase 20 U/L (5-31); Bilirubin Total 0.4 mg/dL (0.0-1.0); Blood Urea Nitrogen 9 mg/dL (9-16); Calcium 8.9 mg/dL (8.4-10.2); Carbon Dioxide 33 mmol/L (22-29); Chloride 102 mmol/L (96-108); Creatinine Clr Calc Pharmacy 43.5; Estimated Glomerular Filt Rate 58; Glucose Random 132 mg/dL (60-115); Potassium 4.2 mmol/L (3.3-5.1); Sodium 140 mmol/L (135-145); Total Protein 6.7 g/dL (6.5-8.0)
[2024-10-18] MEDS: Valproic Acid Liquid 250 MG/5 ML SOLUTION 75 MG PO ×2 (16:00→21:06)
[2024-10-18 16:27] LABS: Alkaline Phosphatase 88 U/L (39-117)
[2024-10-18 20:00] VITALS: BP 128/71; PULSE 80; TEMP 36.3; O2SAT 92
[2024-10-19 08:18] VITALS: BP 114/56; PULSE 69; RESP 16; TEMP 36.4; O2SAT 92
[2024-10-19] MEDS: Pramipexole Di-HCL 0.25 MG TABLET 0.5 MG PO ×3 (08:46→20:53)
[2024-10-19] MEDS: Pregabalin 150 MG CAPSULE PO ×2 (08:46→20:52)
[2024-10-19] MEDS: Cholecalciferol (Vitamin D3) 25 MCG TABLET 50 MCG PO (08:46)
[2024-10-19] MEDS: guanFACINE HCl ER 1 MG TAB.ER.24H PO ×4 (08:46→20:52)
[2024-10-19] MEDS: Valproic Acid Liquid 250 MG/5 ML SOLUTION 75 MG PO ×2 (08:47→20:57)
[2024-10-19] MEDS: Lithium Carbonate 300 MG TABLET 150 MG PO (09:07)
[2024-10-19] MEDS: modafiniL 100 MG TABLET 200 MG PO (09:07)
[2024-10-19 09:21] LABS: Cholesterol 212 mg/dL (<200); HDL Cholesterol 69 mg/dL (>40); LDL Cholesterol Calculated 121 mg/dL (<100); Triglycerides 114 mg/dL (<150)
--- NOTE | 2024-10-19 13:37 | HO.PSYCHPN ---
Documented by User: Rubi Garces NP 10/19/24 13:41 Subjective Subjective Date of Service: 10/19/24 Reason For Visit: crisis Subjective Notes: Conditional Voluntary Interim History: Active on unit, tearful during 1:1. Pt reports feeling sad; pt stated, I'm so tired of not finding the right medication to help me . pt reports feeling better with decrease dose of lithium. Patient transferred to to be treated by Padmini Quintanilla NP who is familiar with case; pt aware. Medication Compliance: Yes Mental Status Exam Mental Status Exam Patient Appearance: Appropriate Patient Orientation: Person, Place, Time and Situation Level of Consciousness: Awake and Alert Patient Behavior: Cooperative, Good Eye Contact and Crying Mood Description: Sad Affect Description: Sad Ability to Follow Directions: Good Speech Pattern: Clear and Appropriate Memory Description: Intact Hallucinations: None Delusions: Not Present Thought Process: Intact and Goal Oriented Thought Content: positive for Intact Diagnostics Vital Signs (24Hr): Vital Signs - 24 hr 10/18/24 20:00 10/19/24 08:18 Temperature 97.4 F 97.6 F Pulse Rate 80 69 Respiratory Rate 16 Blood Pressure 128/71 114/56 L Pulse Oximetry 92 92 Oxygen Delivery Method Room Air Room Air BMI result Body Mass Index 19.1 Labs 10/17/24 17:56 10/18/24 14:22 Labs: Laboratory Results - last 48 hr 10/17/24 10/17/24 10/17/24 17:14 17:56 17:59 WBC 8.8 RBC 3.73 L Hgb 12.6 Hct 37.2 MCV 99.7 H MCH 33.8 H MCHC 33.9 RDW 13.4 Plt Count 378 MPV 10.5 Immature Gran % (Auto) 0.2 Neut % (Auto) 60.9 Lymph % (Auto) 25.3 [place] % (Auto) 8.9 Eos % (Auto) 4.0 Baso % (Auto) 0.7 Lymph # (Auto) 2.2 [place] # (Auto) 0.8 Eos # (Auto) 0.4 Baso # (Auto) 0.1 Abs Immat Gran (auto) 0.02 Absolute Neuts (auto) 5.3 Absolute Nucleated RBC 0.000 Nucleated RBC % (auto) 0.0 Sodium 139 Potassium 4.2 Chloride 107 Carbon Dioxide 27 Anion Gap 9 L BUN 13 Creatinine 0.70 Estim Creat Clear Calc 61.0 Estimated GFR > 60 Random Glucose 121 H Calcium 9.0 Magnesium 1.9 Total Bilirubin 0.4 Direct Bilirubin 0.1 AST 23 ALT 20 Alkaline Phosphatase 98 Total Protein 7.2 Albumin 4.2 Triglycerides Cholesterol LDL Cholesterol, Calc HDL Cholesterol Urine Color Yellow Urine Appearance Clear Urine pH 6.0 Ur Specific Lloyd 1.015 Urine Protein Negative Urine Glucose (UA) Negative Urine Ketones Negative Urine Blood Trace H Urine Nitrite Negative Ur Leukocyte Esterase Small (1+) H Urine RBC 3-5 H Urine WBC 6-10 H Ur Squamous Epith Cells 6-10 Urine Bacteria 1+ Hyaline Casts 0-2 Urine Opiates Screen Not Detected Ur Buprenorphine Scrn Not Detected Ur Oxycodone Screen Not Detected Urine Methadone Screen Not Detected Urine Fentanyl Screen Not Detected Ur Barbiturates Screen Not Detected Ur Phencyclidine Scrn Not Detected Ur Amphetamines Screen Not Detected U Benzodiazepines Scrn Not Detected Laughlin 0.35 L Urine Cocaine Screen Not Detected U Marijuana (THC) Screen POSITIVE H Ethyl Alcohol < 10 Influenza Type A (PCR) NEGATIVE Influenza Type B (PCR) NEGATIVE RSV RNA Qual (PCR) NEGATIVE SARS-CoV-2 RNA (RT-PCR) NEGATIVE 10/18/24 10/19/24 14:22 08:08 WBC RBC Hgb Hct MCV MCH MCHC RDW Plt Count MPV Immature Gran % (Auto) Neut % (Auto) Lymph % (Auto) [place] % (Auto) Eos % (Auto) Baso % (Auto) Lymph # (Auto) [place] # (Auto) Eos # (Auto) Baso # (Auto) Abs Immat Gran (auto) Absolute Neuts (auto) Absolute Nucleated RBC Nucleated RBC % (auto) Sodium 140 Potassium 4.2 Chloride 102 Carbon Dioxide 33 H Anion Gap 9 L BUN 9 Creatinine 0.98 Estim Creat Clear Calc 43.5 Estimated GFR 58 Random Glucose 132 H Calcium 8.9 Magnesium Total Bilirubin 0.4 Direct Bilirubin AST 20 ALT 17 Alkaline Phosphatase 88 Total Protein 6.7 Albumin 3.9 Triglycerides 114 Cholesterol 212 H LDL Cholesterol, Calc 121 H HDL Cholesterol 69 Urine Color Urine Appearance Urine pH Ur Specific Lloyd Urine Protein Urine Glucose (UA) Urine Ketones Urine Blood Urine Nitrite Ur Leukocyte Esterase Urine RBC Urine WBC Ur Squamous Epith Cells Urine Bacteria Hyaline Casts Urine Opiates Screen Ur Buprenorphine Scrn Ur Oxycodone Screen Urine Methadone Screen Urine Fentanyl Screen Ur Barbiturates Screen Ur Phencyclidine Scrn Ur Amphetamines Screen U Benzodiazepines Scrn Laughlin Urine Cocaine Screen U Marijuana (THC) Screen Ethyl Alcohol Influenza Type A (PCR) Influenza Type B (PCR) RSV RNA Qual (PCR) SARS-CoV-2 RNA (RT-PCR) Medications Medications Current Medications Acetaminophen (Acetaminophen 325 Mg Tablet) 650 mg PO Q6H PRN PRN Reason: Headache/Pain, Scale 1-10 Al Hydroxide/Mg Hydroxide (Magnesium Hydrox/Alum Hydrox 30 Ml Oral.Susp) 30 ml PO Q6H PRN PRN Reason: Heartburn/Nausea Albuterol Sulfate (Albuterol Sulfate 90 Mcg 8 Gm Inhaler) 2 puff INHALE Q4H PRN PRN Reason: wheezing Docusate Sodium (Docusate Sodium 100 Mg Capsule) 100 mg PO BID PRN PRN Reason: constipation Guanfacine HCl (Guanfacine Hcl Er 1 Mg Tab.Er.24h) 1 mg PO QID [facility] Last Admin: 10/19/24 08:46 Dose: 1 mg Laughlin Carbonate (Laughlin Carbonate 300 Mg Tablet) 150 mg PO 0900 [facility] Last Admin: 10/19/24 09:07 Dose: 150 mg Lorazepam (Lorazepam 1 Mg Tablet) 1 mg PO DAILY PRN PRN Reason: anxiety Last Admin: 10/18/24 07:01 Dose: 1 mg Magnesium Hydroxide (Milk Of Magnesia 30 Ml Oral.Susp) 30 ml PO DAILY PRN PRN Reason: Constipation Modafinil (Modafinil 100 Mg Tablet) 200 mg PO 0900 [facility] Last Admin: 10/19/24 09:07 Dose: 200 mg Nicotine Polacrilex (Nicotine Polacrilex 2 Mg Gum) 4 mg BUCCAL Q2H PRN PRN Reason: Nicotine Cravings Pramipexole Dihydrochloride (Pramipexole Di-Hcl 0.25 Mg Tablet) 0.5 mg PO TID [facility] Last Admin: 10/19/24 08:46 Dose: 0.5 mg Pregabalin (Pregabalin 150 Mg Capsule) 150 mg PO BID [facility] Last Admin: 10/19/24 08:46 Dose: 150 mg Pregabalin (Pregabalin 200 Mg Capsule) 200 mg PO BEDTIME [facility] Last Admin: 10/18/24 21:15 Dose: Not Given Trazodone HCl (Trazodone Hcl 50 Mg Tablet) 50 mg PO BEDTIME MRX1 PRN PRN Reason: Insomnia Valproic Acid (Valproic Acid Liquid 250 Mg/5 Ml Solution) 75 mg PO BID [facility] Last Admin: 10/19/24 08:47 Dose: 75 mg Vitamin D (Cholecalciferol (Vitamin D3) 25 Mcg Tablet) 50 mcg PO DAILY [facility] Last Admin: 10/19/24 08:46 Dose: 50 mcg Allergies Allergies Allergy/AdvReac Type Severity Reaction Status Date / Time olanzapine [From ZYPREXA] AdvReac Intermediate RLS Verified 10/17/24 16:56 symptoms clonidine AdvReac RLS Verified 10/17/24 16:56 diphenhydramine AdvReac RLS Verified 10/17/24 16:56 [From Benadryl] hydroxyzine AdvReac RLS Verified 10/17/24 16:56 melatonin AdvReac RLS Verified 10/17/24 16:56 atypical antipsychotics AdvReac Severe This class Uncoded 09/03/24 11:02 appears to potentiate RLS/Akathesia Assessment & Plan Assessment & Plan (1) Bipolar II disorder: Status: Acute Code(s): F31.81 - Bipolar II disorder (2) Post-traumatic stress disorder, unspecified: Status: Acute Code(s): F43.10 - Post-traumatic stress disorder, unspecified Plan Patient is a 63-year-old female with history of bipolar disorder, PTSD, alcohol use disorder, and benzodiazepine abuse, who presented to [facility] [place] [facility] due to decompensation secondary to possible medication misuse. Plan: CV 15 minute safety checks Continue home medications Obtain collateral DC lithium 300mg PO bedtime Start: Depakote 75 mg PO BID Encourage groups ? Obtain VNA Discharge planning 10/19: Active on unit, tearful during 1:1. Pt reports feeling sad; pt stated, I'm so tired of not finding the right medication to help me . pt reports feeling better with decrease dose of lithium. Patient transferred to to be treated by Padmini Quintanilla NP who is familiar with case; pt aware. Patient educated on: diagnosis and medication risk/benefits Reason for continued inpatient stay Substantial Risk for: med/psych decompensation Time Spent With Patient Time: Total time managing care of this patient today _20___ minutes. Documented by User: Padmini Quintanilla APRN 10/19/24 15:51 Subjective Subjective Reason For Visit: crisis Diagnostics Labs 10/17/24 17:56 10/18/24 14:22 Assessment & Plan Assessment & Plan (1) Bipolar II disorder: Status: Acute Code(s): F31.81 - Bipolar II disorder (2) Post-traumatic stress disorder, unspecified: Status: Acute Code(s): F43.10 - Post-traumatic stress disorder, unspecified Plan Patient is a 63-year-old female with history of bipolar disorder, PTSD, alcohol use disorder, and benzodiazepine abuse, who presented to [facility] [place] [facility] due to decompensation secondary to possible medication misuse. Plan: CV 15 minute safety checks Continue home medications Obtain collateral DC lithium 300mg PO bedtime Start: Depakote 75 mg PO BID [facility] groups ? Obtain VNA Discharge planning 10/19: Active on unit, tearful during 1:1. Pt reports feeling sad; pt stated, I'm so tired of not finding the right medication to help me . pt reports feeling better with decrease dose of lithium. Patient transferred to to be treated by Padmini Quintanilla NP who is familiar with case; pt aware. 10/19: Pt received in transfer from . We met and reviewed med changes- Laughlin 150 mg, Valproate 75 mg bid. Pt reports she believes lack of sleep is a significant factor in mood sx. Reviewed her insomnia. Will DC Lorazepam and replace this with Valium 2 mg HS to assess if we can help her to sustain improved sleep (Valproate may help as well). Pt will ask her to order her vitamin B supplements so she can remain consistent with them. Pt discussed changes in family, empty nest syndrome which is OK most of the time but at times brings about gried, ongoing worry for son who is incarcerated in [place] for Fentanyl trafficking and strain on relationship with her grand-daughter.
[2024-10-19 20:00] VITALS: BP 108/71; PULSE 69; RESP 18; TEMP 36.2; O2SAT 95
[2024-10-19] MEDS: diazePAM 2 MG TABLET PO (20:52)
[2024-10-20] MEDS: Levothyroxine Sodium 50 MCG TABLET PO (06:05)
[2024-10-20 08:00] VITALS: BP 102/55; PULSE 63; TEMP 36.6; O2SAT 95
[2024-10-20] MEDS: Cholecalciferol (Vitamin D3) 25 MCG TABLET 50 MCG PO (09:10)
[2024-10-20] MEDS: Pregabalin 150 MG CAPSULE PO ×3 (09:10→21:15)
[2024-10-20] MEDS: Valproic Acid Liquid 250 MG/5 ML SOLUTION 75 MG PO ×2 (09:10→21:15)
[2024-10-20] MEDS: Pramipexole Di-HCL 0.25 MG TABLET 0.5 MG PO ×3 (09:10→21:15)
[2024-10-20] MEDS: guanFACINE HCl ER 1 MG TAB.ER.24H PO ×4 (09:10→21:14)
[2024-10-20] MEDS: modafiniL 100 MG TABLET 200 MG PO (09:16)
[2024-10-20] MEDS: Lithium Carbonate 300 MG TABLET 150 MG PO (09:16)
--- NOTE | 2024-10-20 09:59 | P.PNPSI_ITS ---
Subjective Subjective Date of Service: 10/20/24 Reason For Visit: crisis Subjective Notes: Conditional Voluntary Interim History: Patient was seen and discussed in rounds today. Records and plans were reviewed. She was given Valium 2 mg last night for sleep but it had a paradoxical reaction and she slept hardly at all if any. I discontinued that and we will try her on Klonopin 1 mg. She has tolerated Ativan well in the past. She continues to endorse depression and anxiety, specially anxiety. Somewhat guarded but pleasant. Eating and sleeping adequately. No SI Review of Systems Review of Systems Sleep Yes all other systems are reviewed and are negative Mental Status Exam Mental Status Exam Narrative: In today's visit she is alert, oriented and pleasant. Normal speech. Good eye contact. Appropriate affect/constricted. No signs of psychosis. No cognitive deficits. No SI. Judgment is intact. She moves all limbs. No gait abnormalities Diagnostics Vital Signs (24Hr): Vital Signs - 24 hr 10/19/24 20:00 Temperature 97.1 F Pulse Rate 69 Respiratory Rate 18 Blood Pressure 108/71 Pulse Oximetry 95 Oxygen Delivery Method Room Air BMI result Body Mass Index 19.1 Labs 10/17/24 17:56 10/18/24 14:22 Labs: Laboratory Results - last 48 hr 10/18/24 10/19/24 14:22 08:08 Sodium 140 Potassium 4.2 Chloride 102 Carbon Dioxide 33 H Anion Gap 9 L BUN 9 Creatinine 0.98 Estim Creat Clear Calc 43.5 Estimated GFR 58 Random Glucose 132 H Calcium 8.9 Total Bilirubin 0.4 AST 20 ALT 17 Alkaline Phosphatase 88 Total Protein 6.7 Albumin 3.9 Triglycerides 114 Cholesterol 212 H LDL Cholesterol, Calc 121 H HDL Cholesterol 69 Medications Medications Current Medications Acetaminophen (Acetaminophen 325 Mg Tablet) 650 mg PO Q6H PRN PRN Reason: Headache/Pain, Scale 1-10 Al Hydroxide/Mg Hydroxide (Magnesium Hydrox/Alum Hydrox 30 Ml Oral.Susp) 30 ml PO Q6H PRN PRN Reason: Heartburn/Nausea Albuterol Sulfate (Albuterol Sulfate 90 Mcg 8 Gm Inhaler) 2 puff INHALE Q4H PRN PRN Reason: wheezing Clonazepam (Clonazepam 1 Mg Tablet) 1 mg PO BEDTIME [facility] Diazepam (Diazepam 2 Mg Tablet) 2 mg PO BEDTIME [facility] Last Admin: 10/19/24 20:52 Dose: 2 mg Docusate Sodium (Docusate Sodium 100 Mg Capsule) 100 mg PO BID PRN PRN Reason: constipation Guanfacine HCl (Guanfacine Hcl Er 1 Mg Tab.Er.24h) 1 mg PO QID [facility] Last Admin: 10/20/24 09:10 Dose: 1 mg Levothyroxine Sodium (Levothyroxine Sodium 50 Mcg Tablet) 50 mcg PO DAILY@0600 [facility] Last Admin: 10/20/24 06:05 Dose: 50 mcg [place] Carbonate ([place] Carbonate 300 Mg Tablet) 150 mg PO 0900 [facility] Last Admin: 10/20/24 09:16 Dose: 150 mg Magnesium Hydroxide (Milk Of Magnesia 30 Ml Oral.Susp) 30 ml PO DAILY PRN PRN Reason: Constipation Modafinil (Modafinil 100 Mg Tablet) 200 mg PO 0900 [facility] Last Admin: 10/20/24 09:16 Dose: 200 mg Nicotine Polacrilex (Nicotine Polacrilex 2 Mg Gum) 4 mg BUCCAL Q2H PRN PRN Reason: Nicotine Cravings Pramipexole Dihydrochloride (Pramipexole Di-Hcl 0.25 Mg Tablet) 0.5 mg PO TID [facility] Last Admin: 10/20/24 09:10 Dose: 0.5 mg Pregabalin (Pregabalin 150 Mg Capsule) 150 mg PO TID [facility] Last Admin: 10/20/24 09:10 Dose: 150 mg Trazodone HCl (Trazodone Hcl 50 Mg Tablet) 50 mg PO BEDTIME MRX1 PRN PRN Reason: Insomnia Valproic Acid (Valproic Acid Liquid 250 Mg/5 Ml Solution) 75 mg PO BID [facility] Last Admin: 10/20/24 09:10 Dose: 75 mg Vitamin D (Cholecalciferol (Vitamin D3) 25 Mcg Tablet) 50 mcg PO DAILY [facility] Last Admin: 10/20/24 09:10 Dose: 50 mcg Allergies Allergies Allergy/AdvReac Type Severity Reaction Status Date / Time olanzapine [From ZYPREXA] AdvReac Intermediate RLS Verified 10/17/24 16:56 symptoms clonidine AdvReac RLS Verified 10/17/24 16:56 diphenhydramine AdvReac RLS Verified 10/17/24 16:56 [From Benadryl] hydroxyzine AdvReac RLS Verified 10/17/24 16:56 melatonin AdvReac RLS Verified 10/17/24 16:56 atypical antipsychotics AdvReac Severe This class Uncoded 09/03/24 11:02 appears to potentiate RLS/Akathesia Assessment & Plan Assessment & Plan (1) Bipolar II disorder: Status: Acute Code(s): F31.81 - Bipolar II disorder (2) Post-traumatic stress disorder, unspecified: Status: Acute Code(s): F43.10 - Post-traumatic stress disorder, unspecified Plan Patient is a 63-year-old female with history of bipolar disorder, PTSD, alcohol use disorder, and benzodiazepine abuse, who presented to [facility] due to decompensation secondary to possible medication misuse. Plan: CV 15 minute safety checks Continue home medications Obtain collateral DC lithium 300mg PO bedtime Start: Depakote 75 mg PO BID [facility] ? Obtain VNA Discharge planning 10/19: Active on unit, tearful during 1:1. Pt reports feeling sad; pt stated, I'm so tired of not finding the right medication to help me . pt reports feeling better with decrease dose of lithium. Patient transferred to to be treated by Padmini Quintanilla NP who is familiar with case; pt aware. 10/19: Pt received in transfer from . We met and reviewed med changes- [place] 150 mg, Valproate 75 mg bid. Pt reports she believes lack of sleep is a significant factor in mood sx. Reviewed her insomnia. Will DC Lorazepam and replace this with Valium 2 mg HS to assess if we can help her to sustain improved sleep (Valproate may help as well). Pt will ask her to order her vitamin B supplements so she can remain consistent with them. Pt discussed changes in family, empty nest syndrome which is OK most of the time but at times brings about gried, ongoing worry for son who is incarcerated in [place] for Fentanyl trafficking and strain on relationship with her grand-daughter. 10/20/24: Continue current plans and regimen. Discontinue Valium and try Klonopin 1 mg q.h.s. to be reviewed tomorrow morning Patient educated on: medication risk/benefits Reason for continued inpatient stay Substantial Risk for: med/psych decompensation Time Spent With Patient Time: Total time managing care of this patient today ____ minutes.
[2024-10-20 19:41] VITALS: BP 107/58; PULSE 68; RESP 18; TEMP 36.2; O2SAT 95
[2024-10-20] MEDS: clonazePAM 1 MG TABLET PO (21:14)
[2024-10-21] MEDS: Levothyroxine Sodium 50 MCG TABLET PO (06:39)
[2024-10-21 08:00] VITALS: BP 112/61; PULSE 72; RESP 18; TEMP 36.4; O2SAT 94
--- NOTE | 2024-10-21 08:45 | P.PNPSI_ITS ---
Subjective Subjective Date of Service: 10/21/24 Reason For Visit: crisis Subjective Notes: Conditional Voluntary Interim History: Patient was seen and discussed in rounds today. Records and plans were reviewed. She finally slept the full night with the Klonopin verses the paradoxical reaction to Valium the night before. She also feels less anxious secondary to improved sleep. No SI. Eating adequately. No changes were made today Review of Systems Review of Systems Yes all other systems are reviewed and are negative Mental Status Exam Mental Status Exam Narrative: In today's visit she is alert, oriented and pleasant. Normal speech. Good eye contact. Appropriate affect/constricted. No signs of psychosis. No cognitive deficits. No SI. Judgment is intact. She moves all limbs. No gait abnormalities Diagnostics Vital Signs (24Hr): Vital Signs - 24 hr 10/20/24 08:00 10/20/24 19:41 Temperature 97.8 F 97.1 F Pulse Rate 63 68 Respiratory Rate 18 Blood Pressure 102/55 L 107/58 L Pulse Oximetry 95 95 Oxygen Delivery Method Room Air Room Air BMI result Body Mass Index 19.1 Labs 10/17/24 17:56 10/18/24 14:22 Labs: Laboratory Results - last 48 hr 10/19/24 08:08 Triglycerides 114 Cholesterol 212 H LDL Cholesterol, Calc 121 H HDL Cholesterol 69 Medications Medications Current Medications Acetaminophen (Acetaminophen 325 Mg Tablet) 650 mg PO Q6H PRN PRN Reason: Headache/Pain, Scale 1-10 Al Hydroxide/Mg Hydroxide (Magnesium Hydrox/Alum Hydrox 30 Ml Oral.Susp) 30 ml PO Q6H PRN PRN Reason: Heartburn/Nausea Albuterol Sulfate (Albuterol Sulfate 90 Mcg 8 Gm Inhaler) 2 puff INHALE Q4H PRN PRN Reason: wheezing Clonazepam (Clonazepam 1 Mg Tablet) 1 mg PO BEDTIME [facility] Last Admin: 10/20/24 21:14 Dose: 1 mg Docusate Sodium (Docusate Sodium 100 Mg Capsule) 100 mg PO BID PRN PRN Reason: constipation Guanfacine HCl (Guanfacine Hcl Er 1 Mg Tab.Er.24h) 1 mg PO QID [facility] Last Admin: 10/20/24 21:14 Dose: 1 mg Levothyroxine Sodium (Levothyroxine Sodium 50 Mcg Tablet) 50 mcg PO DAILY@0600 [facility] Last Admin: 10/21/24 06:39 Dose: 50 mcg Man Carbonate (Man Carbonate 300 Mg Tablet) 150 mg PO 0900 [facility] Last Admin: 10/20/24 09:16 Dose: 150 mg Magnesium Hydroxide (Milk Of Magnesia 30 Ml Oral.Susp) 30 ml PO DAILY PRN PRN Reason: Constipation Modafinil (Modafinil 100 Mg Tablet) 200 mg PO 0900 [facility] Last Admin: 10/20/24 09:16 Dose: 200 mg Nicotine Polacrilex (Nicotine Polacrilex 2 Mg Gum) 4 mg BUCCAL Q2H PRN PRN Reason: Nicotine Cravings Pramipexole Dihydrochloride (Pramipexole Di-Hcl 0.25 Mg Tablet) 0.5 mg PO TID [facility] Last Admin: 10/20/24 21:15 Dose: 0.5 mg Pregabalin (Pregabalin 150 Mg Capsule) 150 mg PO TID [facility] Last Admin: 10/20/24 21:15 Dose: 150 mg Trazodone HCl (Trazodone Hcl 50 Mg Tablet) 50 mg PO BEDTIME MRX1 PRN PRN Reason: Insomnia Valproic Acid (Valproic Acid Liquid 250 Mg/5 Ml Solution) 75 mg PO BID [facility] Last Admin: 10/20/24 21:15 Dose: 75 mg Vitamin D (Cholecalciferol (Vitamin D3) 25 Mcg Tablet) 50 mcg PO DAILY [facility] Last Admin: 10/20/24 09:10 Dose: 50 mcg Allergies Allergies Allergy/AdvReac Type Severity Reaction Status Date / Time olanzapine [From ZYPREXA] AdvReac Intermediate RLS Verified 10/17/24 16:56 symptoms clonidine AdvReac RLS Verified 10/17/24 16:56 diphenhydramine AdvReac RLS Verified 10/17/24 16:56 [From Benadryl] hydroxyzine AdvReac RLS Verified 10/17/24 16:56 melatonin AdvReac RLS Verified 10/17/24 16:56 atypical antipsychotics AdvReac Severe This class Uncoded 09/03/24 11:02 appears to potentiate RLS/Akathesia Assessment & Plan Assessment & Plan (1) Bipolar II disorder: Status: Acute Code(s): F31.81 - Bipolar II disorder (2) Post-traumatic stress disorder, unspecified: Status: Acute Code(s): F43.10 - Post-traumatic stress disorder, unspecified Plan Patient is a 63-year-old female with history of bipolar disorder, PTSD, alcohol use disorder, and benzodiazepine abuse, who presented to [facility] due to decompensation secondary to possible medication misuse. Plan: CV 15 minute safety checks Continue home medications Obtain collateral DC lithium 300mg PO bedtime Start: Depakote 75 mg PO BID [facility] ? Obtain VNA Discharge planning 10/19: Active on unit, tearful during 1:1. Pt reports feeling sad; pt stated, I'm so tired of not finding the right medication to help me . pt reports feeling better with decrease dose of lithium. Patient transferred to [facility] to be treated by Padmini Quintanilla NP who is familiar with case; pt aware. 10/19: Pt received in transfer from [facility]. We met and reviewed med changes- Man 150 mg, Valproate 75 mg bid. Pt reports she believes lack of sleep is a significant factor in mood sx. Reviewed her insomnia. Will DC Lorazepam and replace this with Valium 2 mg HS to assess if we can help her to sustain improved sleep (Valproate may help as well). Pt will ask her to order her vitamin B supplements so she can remain consistent with them. Pt discussed changes in family, empty nest syndrome which is OK most of the time but at times brings about gried, ongoing worry for son who is incarcerated in [place] for Fentanyl trafficking and strain on relationship with her grand-daughter. 10/20/24: Continue current plans and regimen. Discontinue Valium and try Klonopin 1 mg q.h.s. to be reviewed tomorrow morning Continue current regimen and plans Reason for continued inpatient stay Substantial Risk for: med/psych decompensation Time Spent With Patient Time: Total time managing care of this patient today ____ minutes.
[2024-10-21] MEDS: Valproic Acid Liquid 250 MG/5 ML SOLUTION 75 MG PO ×2 (09:34→21:39)
[2024-10-21] MEDS: Pramipexole Di-HCL 0.25 MG TABLET 0.5 MG PO ×3 (09:36→21:36)
[2024-10-21] MEDS: Pregabalin 150 MG CAPSULE PO ×3 (09:36→21:37)
[2024-10-21] MEDS: Cholecalciferol (Vitamin D3) 25 MCG TABLET 50 MCG PO (09:36)
[2024-10-21] MEDS: guanFACINE HCl ER 1 MG TAB.ER.24H PO ×4 (09:36→21:37)
[2024-10-21] MEDS: Lithium Carbonate 300 MG TABLET 150 MG PO (09:41)
[2024-10-21] MEDS: modafiniL 100 MG TABLET 200 MG PO (09:42)
[2024-10-21 20:00] VITALS: BP 129/78; PULSE 70; TEMP 36.9; O2SAT 96
[2024-10-21] MEDS: clonazePAM 1 MG TABLET PO (21:35)
[2024-10-22] MEDS: Levothyroxine Sodium 50 MCG TABLET PO (06:38)
[2024-10-22 08:00] VITALS: BP 165/109; PULSE 61; RESP 18; TEMP 37.1; O2SAT 95
[2024-10-22] MEDS: Pramipexole Di-HCL 0.25 MG TABLET 0.5 MG PO ×3 (08:04→21:00)
[2024-10-22] MEDS: guanFACINE HCl ER 1 MG TAB.ER.24H PO ×4 (08:04→21:00)
[2024-10-22] MEDS: Cholecalciferol (Vitamin D3) 25 MCG TABLET 50 MCG PO (08:05)
[2024-10-22] MEDS: Valproic Acid Liquid 250 MG/5 ML SOLUTION 75 MG PO (08:05)
[2024-10-22] MEDS: Pregabalin 150 MG CAPSULE PO ×3 (08:05→21:00)
[2024-10-22] MEDS: modafiniL 100 MG TABLET 200 MG PO (08:12)
[2024-10-22] MEDS: Lithium Carbonate 300 MG TABLET 150 MG PO (08:13)
--- NOTE | 2024-10-22 11:01 | P.PNPSI_ITS ---
Subjective Subjective Date of Service: 10/22/24 Reason For Visit: crisis Subjective Notes: Conditional Voluntary Healthcare Proxy: No Guardianship: No Medical Problems Affecting Mental Status: No Interim History: Met with pt and . Review of some milieu triggers for pt as her son of opiate OD. Methadone pts can be triggering for her. Reports poor sleep, while in hospital and at home. Will trial increase in klonopin (changed over the weekend) and consolidation of Depakote to HS. discussed increase frequency of episodes for pt. We are mando if she has one good week a month Discussed doing a dementia work up. Pt has expressed concerns for her cognition. Rose gamez Will ask team about doing a MOCA as well. Medication Compliance: Yes Side effects from medications: No Attending Groups: Intermittent Review of Systems Acute medical concerns: No Review of Systems Review of Systems denies today Mental Status Exam Mental Status Exam Patient Appearance: Appropriate Patient Orientation: Person, Place, Time and Situation Level of Consciousness: Alert Patient Behavior: Talkative, Cooperative and Good Eye Contact Mood Description: Depressed Affect Description: Anxious Patient Cognition Impaired: No Ability to Follow Directions: Good Speech Pattern: Spontaneous Speech Memory Description: Episodic Impaired Hallucinations: None Delusions: Not Present Thought Process: Rumination Thought Content: positive for Perseveration Depressive Symptoms: Increased Anxiety, Insomnia, Difficulty Sleeping, Hopelessness, Unhappiness, Increased Fatigue and Loss of Energy Judgement: Fair Diagnostics Vital Signs (24Hr): Vital Signs - 24 hr 10/21/24 20:00 10/22/24 08:00 Temperature 98.4 F 98.8 F Pulse Rate 70 61 Respiratory Rate 18 Blood Pressure 129/78 165/109 H Pulse Oximetry 96 95 Oxygen Delivery Method Room Air Room Air BMI result Body Mass Index 19.1 Labs 10/17/24 17:56 10/18/24 14:22 Medications Medications Current Medications Acetaminophen (Acetaminophen 325 Mg Tablet) 650 mg PO Q6H PRN PRN Reason: Headache/Pain, Scale 1-10 Al Hydroxide/Mg Hydroxide (Magnesium Hydrox/Alum Hydrox 30 Ml Oral.Susp) 30 ml PO Q6H PRN PRN Reason: Heartburn/Nausea Albuterol Sulfate (Albuterol Sulfate 90 Mcg 8 Gm Inhaler) 2 puff INHALE Q4H PRN PRN Reason: wheezing Clonazepam (Clonazepam 1 Mg Tablet) 1 mg PO BEDTIME [facility] Last Admin: 10/21/24 21:35 Dose: 1 mg Docusate Sodium (Docusate Sodium 100 Mg Capsule) 100 mg PO BID PRN PRN Reason: constipation Guanfacine HCl (Guanfacine Hcl Er 1 Mg Tab.Er.24h) 1 mg PO QID [facility] Last Admin: 10/22/24 08:04 Dose: 1 mg Levothyroxine Sodium (Levothyroxine Sodium 50 Mcg Tablet) 50 mcg PO DAILY@0600 [facility] Last Admin: 10/22/24 06:38 Dose: 50 mcg [place] Carbonate ([place] Carbonate 300 Mg Tablet) 150 mg PO 0900 [facility] Last Admin: 10/22/24 08:13 Dose: 150 mg Magnesium Hydroxide (Milk Of Magnesia 30 Ml Oral.Susp) 30 ml PO DAILY PRN PRN Reason: Constipation Modafinil (Modafinil 100 Mg Tablet) 200 mg PO 0900 [facility] Last Admin: 10/22/24 08:12 Dose: 200 mg Nicotine Polacrilex (Nicotine Polacrilex 2 Mg Gum) 4 mg BUCCAL Q2H PRN PRN Reason: Nicotine Cravings Pramipexole Dihydrochloride (Pramipexole Di-Hcl 0.25 Mg Tablet) 0.5 mg PO TID [facility] Last Admin: 10/22/24 08:04 Dose: 0.5 mg Pregabalin (Pregabalin 150 Mg Capsule) 150 mg PO TID [facility] Last Admin: 10/22/24 08:05 Dose: 150 mg Valproic Acid (Valproic Acid Liquid 250 Mg/5 Ml Solution) 75 mg PO BID [facility] Last Admin: 10/22/24 08:05 Dose: 75 mg Vitamin D (Cholecalciferol (Vitamin D3) 25 Mcg Tablet) 50 mcg PO DAILY [facility] Last Admin: 10/22/24 08:05 Dose: 50 mcg Allergies Allergies Allergy/AdvReac Type Severity Reaction Status Date / Time olanzapine [From ZYPREXA] AdvReac Intermediate RLS Verified 10/17/24 16:56 symptoms clonidine AdvReac RLS Verified 10/17/24 16:56 diphenhydramine AdvReac RLS Verified 10/17/24 16:56 [From Benadryl] hydroxyzine AdvReac RLS Verified 10/17/24 16:56 melatonin AdvReac RLS Verified 10/17/24 16:56 atypical antipsychotics AdvReac Severe This class Uncoded 09/03/24 11:02 appears to potentiate RLS/Akathesia Assessment & Plan Assessment & Plan (1) Bipolar II disorder: Status: Acute Code(s): F31.81 - Bipolar II disorder (2) Post-traumatic stress disorder, unspecified: Status: Acute Code(s): F43.10 - Post-traumatic stress disorder, unspecified Plan Patient is a 63-year-old female with history of bipolar disorder, PTSD, alcohol use disorder, and benzodiazepine abuse, who presented to [facility] due to decompensation secondary to possible medication misuse. Plan: CV 15 minute safety checks Continue home medications Obtain collateral DC lithium 300mg PO bedtime Start: Depakote 75 mg PO BID Encourage groups ? Obtain VNA Discharge planning 10/19: Active on unit, tearful during 1:1. Pt reports feeling sad; pt stated, I'm so tired of not finding the right medication to help me . pt reports feeling better with decrease dose of lithium. Patient transferred to to be treated by Padmini Quintanilla NP who is familiar with case; pt aware. 10/19: Pt received in transfer from . We met and reviewed med changes- [place] 150 mg, Valproate 75 mg bid. Pt reports she believes lack of sleep is a significant factor in mood sx. Reviewed her insomnia. Will DC Lorazepam and replace this with Valium 2 mg HS to assess if we can help her to sustain improved sleep (Valproate may help as well). Pt will ask her to order her vitamin B supplements so she can remain consistent with them. Pt discussed changes in family, empty nest syndrome which is OK most of the time but at times brings about gried, ongoing worry for son who is incarcerated in [place] for Fentanyl trafficking and strain on relationship with her grand-daughter. 10/20/24: Continue current plans and regimen. Discontinue Valium and try Klonopin 1 mg q.h.s. to be reviewed tomorrow morning Continue current regimen and plans 10/22: Increase Klonopin to 2 mg HS Consolidate Depakote to 150 mg HS Dementia work up- MRI, EEG, MOCA to begin Reason for continued inpatient stay Substantial Risk for: rapid decompensation Time Spent With Patient Time: Total time managing care of this patient today ____ minutes.
[2024-10-22 20:00] VITALS: BP 91/54; PULSE 72; TEMP 36.8; O2SAT 95
[2024-10-22] MEDS: clonazePAM 1 MG TABLET 2 MG PO (20:59)
[2024-10-22] MEDS: Valproic Acid Liquid 250 MG/5 ML SOLUTION 150 MG PO (21:00)
--- NOTE | 2024-10-23 | EEG_ITS ---
This is a 16-channel EEG with an EKG lead. The patient is reported awake and drowsy during the tracing. Background EEG rhythm is about 10 hertz 5 to 20 microvolt posteriorly lower amplitude fast anteriorly. Frequent lead and muscle artifacts are noted. Photic stimulation does not produce any significant abnormality. Hyperventilation is not performed. Cardiac lead does not reveal any significant abnormality. No sharp wave spikes or paroxysmal tendency noted. IMPRESSION: No significant abnormality noted on this EEG. MD SHAWN Pierre/KENNETH / [id number]
[2024-10-23] MEDS: Levothyroxine Sodium 50 MCG TABLET PO (06:39)
[2024-10-23 08:21] VITALS: BP 116/61; PULSE 60; RESP 18; TEMP 36.7; O2SAT 96
[2024-10-23] MEDS: guanFACINE HCl ER 1 MG TAB.ER.24H PO ×4 (09:13→20:50)
[2024-10-23] MEDS: Lithium Carbonate 300 MG TABLET 150 MG PO (09:13)
[2024-10-23] MEDS: Cholecalciferol (Vitamin D3) 25 MCG TABLET 50 MCG PO (09:13)
[2024-10-23] MEDS: Pramipexole Di-HCL 0.25 MG TABLET 0.5 MG PO ×3 (09:14→20:50)
[2024-10-23] MEDS: Pregabalin 150 MG CAPSULE PO ×3 (09:14→20:50)
[2024-10-23] MEDS: modafiniL 100 MG TABLET 200 MG PO (09:14)
--- NOTE | 2024-10-23 09:51 | P.PNPSI_ITS ---
Subjective Subjective Date of Service: 10/23/24 Reason For Visit: crisis Subjective Notes: Conditional Voluntary Healthcare Proxy: No Guardianship: No Medical Problems Affecting Mental Status: No Interim History: Dementia eval initiated. MOCA -showing [facility] Diagnostics initiated Pt had an angry, labile outburst with team and when asked to move her room again (she had moved yesterday to accomodate pts with flu). left, not asking her what the issue was which increased her anger. She was able to process this and discuss this as a pattern in their relationship. She reports positive sleep last night. She credits a private room, weighted blanket and med changes. She is prepared to titrate Depakote this evening. Medication Compliance: Yes Side effects from medications: No Attending Groups: Intermittent Review of Systems Acute medical concerns: No Review of Systems Review of Systems Denies today Mental Status Exam Mental Status Exam Patient Appearance: Appropriate Patient Orientation: Person, Place, Time and Situation Level of Consciousness: Alert Patient Behavior: Talkative, Cooperative and Good Eye Contact Mood Description: Depressed, Hostile, Labile and Angry Affect Description: Hostile, Anxious, Labile and Angry Patient Cognition Impaired: No Ability to Follow Directions: Good Speech Pattern: Spontaneous Speech Memory Description: Episodic Impaired Hallucinations: None Delusions: Not Present Thought Process: Rumination Thought Content: positive for Perseveration Depressive Symptoms: Increased Anxiety, Insomnia, Difficulty Sleeping, Hopelessness, Unhappiness, Increased Fatigue and Loss of Energy Judgement: Fair Diagnostics Vital Signs (24Hr): Vital Signs - 24 hr 10/22/24 20:00 10/23/24 08:21 Temperature 98.2 F 98.0 F Pulse Rate 72 60 Respiratory Rate 18 Blood Pressure 91/54 L 116/61 Pulse Oximetry 95 96 Oxygen Delivery Method Room Air Room Air BMI result Body Mass Index 19.1 Labs 10/17/24 17:56 10/18/24 14:22 Medications Medications Current Medications Acetaminophen (Acetaminophen 325 Mg Tablet) 650 mg PO Q6H PRN PRN Reason: Headache/Pain, Scale 1-10 Al Hydroxide/Mg Hydroxide (Magnesium Hydrox/Alum Hydrox 30 Ml Oral.Susp) 30 ml PO Q6H PRN PRN Reason: Heartburn/Nausea Albuterol Sulfate (Albuterol Sulfate 90 Mcg 8 Gm Inhaler) 2 puff INHALE Q4H PRN PRN Reason: wheezing Clonazepam (Clonazepam 1 Mg Tablet) 2 mg PO BEDTIME [facility] Last Admin: 10/22/24 20:59 Dose: 2 mg Docusate Sodium (Docusate Sodium 100 Mg Capsule) 100 mg PO BID PRN PRN Reason: constipation Guanfacine HCl (Guanfacine Hcl Er 1 Mg Tab.Er.24h) 1 mg PO QID [facility] Last Admin: 10/23/24 09:13 Dose: 1 mg Levothyroxine Sodium (Levothyroxine Sodium 50 Mcg Tablet) 50 mcg PO DAILY@0600 [facility] Last Admin: 10/23/24 06:39 Dose: 50 mcg [place] Carbonate ([place] Carbonate 300 Mg Tablet) 150 mg PO 0900 [facility] Last Admin: 10/23/24 09:13 Dose: 150 mg Magnesium Hydroxide (Milk Of Magnesia 30 Ml Oral.Susp) 30 ml PO DAILY PRN PRN Reason: Constipation Modafinil (Modafinil 100 Mg Tablet) 200 mg PO 0900 [facility] Last Admin: 10/23/24 09:14 Dose: 200 mg Nicotine Polacrilex (Nicotine Polacrilex 2 Mg Gum) 4 mg BUCCAL Q2H PRN PRN Reason: Nicotine Cravings Pramipexole Dihydrochloride (Pramipexole Di-Hcl 0.25 Mg Tablet) 0.5 mg PO TID [facility] Last Admin: 10/23/24 09:14 Dose: 0.5 mg Pregabalin (Pregabalin 150 Mg Capsule) 150 mg PO TID [facility] Last Admin: 10/23/24 09:14 Dose: 150 mg Valproic Acid (Valproic Acid Liquid 250 Mg/5 Ml Solution) 150 mg PO BEDTIME [facility] Last Admin: 10/22/24 21:00 Dose: 150 mg Vitamin D (Cholecalciferol (Vitamin D3) 25 Mcg Tablet) 50 mcg PO DAILY [facility] Last Admin: 10/23/24 09:13 Dose: 50 mcg Allergies Allergies Allergy/AdvReac Type Severity Reaction Status Date / Time olanzapine [From ZYPREXA] AdvReac Intermediate RLS Verified 10/17/24 16:56 symptoms clonidine AdvReac RLS Verified 10/17/24 16:56 diphenhydramine AdvReac RLS Verified 10/17/24 16:56 [From Benadryl] hydroxyzine AdvReac RLS Verified 10/17/24 16:56 melatonin AdvReac RLS Verified 10/17/24 16:56 atypical antipsychotics AdvReac Severe This class Uncoded 09/03/24 11:02 appears to potentiate RLS/Akathesia Assessment & Plan Assessment & Plan (1) Bipolar II disorder: Status: Acute Code(s): F31.81 - Bipolar II disorder (2) Post-traumatic stress disorder, unspecified: Status: Acute Code(s): F43.10 - Post-traumatic stress disorder, unspecified Plan Patient is a 63-year-old female with history of bipolar disorder, PTSD, alcohol use disorder, and benzodiazepine abuse, who presented to [facility] ER due to decompensation secondary to possible medication misuse. Plan: CV 15 minute safety checks Continue home medications Obtain collateral DC lithium 300mg PO bedtime Start: Depakote 75 mg PO BID Encourage groups ? Obtain VNA Discharge planning 10/19: Active on unit, tearful during 1:1. Pt reports feeling sad; pt stated, I'm so tired of not finding the right medication to help me . pt reports feeling better with decrease dose of lithium. Patient transferred to to be treated by Padmini Quintanilla NP who is familiar with case; pt aware. 10/19: Pt received in transfer from . We met and reviewed med changes- [place] 150 mg, Valproate 75 mg bid. Pt reports she believes lack of sleep is a significant factor in mood sx. Reviewed her insomnia. Will DC Lorazepam and replace this with Valium 2 mg HS to assess if we can help her to sustain improved sleep (Valproate may help as well). Pt will ask her to order her vitamin B supplements so she can remain consistent with them. Pt discussed changes in family, empty nest syndrome which is OK most of the time but at times brings about gried, ongoing worry for son who is incarcerated in [place] for Fentanyl trafficking and strain on relationship with her grand-daughter. 10/20/24: Continue current plans and regimen. Discontinue Valium and try Klonopin 1 mg q.h.s. to be reviewed tomorrow morning Continue current regimen and plans 10/23/24: Labile today, anger with , team regarding being asked to make a room change. Dementia work up in process. MOCA 23/30-indicating [facility] Reason for continued inpatient stay Substantial Risk for: rapid decompensation Time Spent With Patient Time: Total time managing care of this patient today ____ minutes.
[2024-10-23 20:00] VITALS: BP 112/61; PULSE 76; RESP 16; TEMP 36.4; O2SAT 95
[2024-10-23] MEDS: Valproic Acid Liquid 250 MG/5 ML SOLUTION PO (20:50)
[2024-10-23] MEDS: clonazePAM 1 MG TABLET 2 MG PO (20:50)
[2024-10-24] MEDS: Levothyroxine Sodium 50 MCG TABLET PO (06:06)
[2024-10-24 07:50] VITALS: BP 90/55; PULSE 60; TEMP 36.6; O2SAT 95
[2024-10-24] MEDS: Pregabalin 150 MG CAPSULE PO ×3 (08:18→21:19)
[2024-10-24] MEDS: Pramipexole Di-HCL 0.25 MG TABLET 0.5 MG PO ×3 (08:18→21:19)
[2024-10-24] MEDS: guanFACINE HCl ER 1 MG TAB.ER.24H PO ×4 (08:18→21:19)
[2024-10-24] MEDS: Cholecalciferol (Vitamin D3) 25 MCG TABLET 50 MCG PO (08:18)
[2024-10-24] MEDS: Lithium Carbonate 300 MG TABLET 150 MG PO (08:38)
[2024-10-24] MEDS: modafiniL 100 MG TABLET 200 MG PO (08:39)
--- NOTE | 2024-10-24 09:58 | P.PNPSI_ITS ---
Subjective Subjective Date of Service: 10/24/24 Reason For Visit: crisis Subjective Notes: Conditional Voluntary Healthcare Proxy: No Guardianship: No Medical Problems Affecting Mental Status: No Interim History: Slept four hours. Continues testing/dementia eval. Discussed anniversaries-pt's birthday 11/09, 10 year anniversary of son's 11/12. Discussed of nephew Jun 2024, son's birthday Jun 29 and response to this difficult time. Mood is improved, anxiety improved per pt report Saline Nasal [place] ordered Medication Compliance: Yes Side effects from medications: No Attending Groups: Yes Review of Systems Acute medical concerns: No Review of Systems Review of Systems denies Mental Status Exam Mental Status Exam Patient Appearance: Appropriate Patient Orientation: Person, Place, Time and Situation Level of Consciousness: Alert Patient Behavior: Talkative, Cooperative and Good Eye Contact Mood Description: Depressed and Labile Affect Description: Anxious and Labile Patient Cognition Impaired: No Ability to Follow Directions: Good Speech Pattern: Spontaneous Speech Memory Description: Episodic Impaired Hallucinations: None Delusions: Not Present Thought Process: Rumination Thought Content: positive for Perseveration Depressive Symptoms: Increased Anxiety, Insomnia, Difficulty Sleeping, Hopelessness, Unhappiness, Increased Fatigue and Loss of Energy Judgement: Fair Diagnostics Vital Signs (24Hr): Vital Signs - 24 hr 10/23/24 20:00 10/24/24 07:50 Temperature 97.5 F 97.9 F Pulse Rate 76 60 Respiratory Rate 16 Blood Pressure 112/61 90/55 L Pulse Oximetry 95 95 Oxygen Delivery Method Room Air Room Air BMI result Body Mass Index 19.1 Labs 10/17/24 17:56 10/18/24 14:22 Imaging Radiology Impressions: ITS Impressions Head CT 10/23/24 11:43 IMPRESSION: 1. No acute intracranial abnormality. 2. Severe degenerative TM joint changes. 3. Mild chronic left maxillary sinus disease. Electronically signed by: Rubens Geiger MD 10/23/2024 12:11 PM EDT Medications Medications Current Medications Acetaminophen (Acetaminophen 325 Mg Tablet) 650 mg PO Q6H PRN PRN Reason: Headache/Pain, Scale 1-10 Al Hydroxide/Mg Hydroxide (Magnesium Hydrox/Alum Hydrox 30 Ml Oral.Susp) 30 ml PO Q6H PRN PRN Reason: Heartburn/Nausea Albuterol Sulfate (Albuterol Sulfate 90 Mcg 8 Gm Inhaler) 2 puff INHALE Q4H PRN PRN Reason: wheezing Clonazepam (Clonazepam 1 Mg Tablet) 2 mg PO BEDTIME [facility] Last Admin: 10/23/24 20:50 Dose: 2 mg Docusate Sodium (Docusate Sodium 100 Mg Capsule) 100 mg PO BID PRN PRN Reason: constipation Guanfacine HCl (Guanfacine Hcl Er 1 Mg Tab.Er.24h) 1 mg PO QID [facility] Last Admin: 10/24/24 08:18 Dose: 1 mg Levothyroxine Sodium (Levothyroxine Sodium 50 Mcg Tablet) 50 mcg PO DAILY@0600 [facility] Last Admin: 10/24/24 06:06 Dose: 50 mcg [place] Carbonate ([place] Carbonate 300 Mg Tablet) 150 mg PO 0900 [facility] Last Admin: 10/24/24 08:38 Dose: 150 mg Magnesium Hydroxide (Milk Of Magnesia 30 Ml Oral.Susp) 30 ml PO DAILY PRN PRN Reason: Constipation Modafinil (Modafinil 100 Mg Tablet) 200 mg PO 0900 [facility] Last Admin: 10/24/24 08:39 Dose: 200 mg Nicotine Polacrilex (Nicotine Polacrilex 2 Mg Gum) 4 mg BUCCAL Q2H PRN PRN Reason: Nicotine Cravings Pramipexole Dihydrochloride (Pramipexole Di-Hcl 0.25 Mg Tablet) 0.5 mg PO TID [facility] Last Admin: 10/24/24 08:18 Dose: 0.5 mg Pregabalin (Pregabalin 150 Mg Capsule) 150 mg PO TID [facility] Last Admin: 10/24/24 08:18 Dose: 150 mg Valproic Acid (Valproic Acid Liquid 250 Mg/5 Ml Solution) 250 mg PO BEDTIME [facility] Last Admin: 10/23/24 20:50 Dose: 250 mg Vitamin D (Cholecalciferol (Vitamin D3) 25 Mcg Tablet) 50 mcg PO DAILY [facility] Last Admin: 10/24/24 08:18 Dose: 50 mcg Allergies Allergies Allergy/AdvReac Type Severity Reaction Status Date / Time olanzapine [From ZYPREXA] AdvReac Intermediate RLS Verified 10/17/24 16:56 symptoms clonidine AdvReac RLS Verified 10/17/24 16:56 diphenhydramine AdvReac RLS Verified 10/17/24 16:56 [From Benadryl] hydroxyzine AdvReac RLS Verified 10/17/24 16:56 melatonin AdvReac RLS Verified 10/17/24 16:56 atypical antipsychotics AdvReac Severe This class Uncoded 09/03/24 11:02 appears to potentiate RLS/Akathesia Assessment & Plan Assessment & Plan (1) Bipolar II disorder: Status: Acute Code(s): F31.81 - Bipolar II disorder (2) Post-traumatic stress disorder, unspecified: Status: Acute Code(s): F43.10 - Post-traumatic stress disorder, unspecified Plan Patient is a 63-year-old female with history of bipolar disorder, PTSD, alcohol use disorder, and benzodiazepine abuse, who presented to [facility] due to decompensation secondary to possible medication misuse. Plan: CV 15 minute safety checks Continue home medications Obtain collateral DC lithium 300mg PO bedtime Start: Depakote 75 mg PO BID Encourage groups ? Obtain VNA Discharge planning 10/19: Active on unit, tearful during 1:1. Pt reports feeling sad; pt stated, I'm so tired of not finding the right medication to help me . pt reports feeling better with decrease dose of lithium. Patient transferred to to be treated by Padmini Quintanilla NP who is familiar with case; pt aware. 10/19: Pt received in transfer from . We met and reviewed med changes- [place] 150 mg, Valproate 75 mg bid. Pt reports she believes lack of sleep is a significant factor in mood sx. Reviewed her insomnia. Will DC Lorazepam and replace this with Valium 2 mg HS to assess if we can help her to sustain improved sleep (Valproate may help as well). Pt will ask her to order her vitamin B supplements so she can remain consistent with them. Pt discussed changes in family, empty nest syndrome which is OK most of the time but at times brings about gried, ongoing worry for son who is incarcerated in [place] for Fentanyl trafficking and strain on relationship with her grand-daughter. 10/20/24: Continue current plans and regimen. Discontinue Valium and try Klonopin 1 mg q.h.s. to be reviewed tomorrow morning Continue current regimen and plans 10/23/24: Labile today, anger with , team regarding being asked to make a room change. Dementia work up in process. MOCA -indicating [facility] 10/24/24: continue tx Reason for continued inpatient stay Substantial Risk for: rapid decompensation Time Spent With Patient Time: Total time managing care of this patient today ____ minutes.
[2024-10-24 19:53] VITALS: BP 117/61; PULSE 75; RESP 18; TEMP 36.6; O2SAT 96
[2024-10-24] MEDS: clonazePAM 1 MG TABLET 2 MG PO (21:19)
[2024-10-24] MEDS: Valproic Acid Liquid 250 MG/5 ML SOLUTION PO (21:20)
[2024-10-25] MEDS: Levothyroxine Sodium 50 MCG TABLET PO (05:46)
[2024-10-25 07:00] VITALS: BMI 19.9
[2024-10-25 07:58] VITALS: BP 107/56; PULSE 61; RESP 20; TEMP 36.4; O2SAT 95
[2024-10-25] MEDS: Pramipexole Di-HCL 0.25 MG TABLET 0.5 MG PO ×3 (08:19→20:51)
[2024-10-25] MEDS: Cholecalciferol (Vitamin D3) 25 MCG TABLET 50 MCG PO (08:19)
[2024-10-25] MEDS: guanFACINE HCl ER 1 MG TAB.ER.24H PO ×4 (08:20→20:52)
[2024-10-25] MEDS: Pregabalin 150 MG CAPSULE PO ×3 (08:20→20:52)
[2024-10-25] MEDS: Lithium Carbonate 300 MG TABLET 150 MG PO (09:14)
[2024-10-25] MEDS: modafiniL 100 MG TABLET 200 MG PO (09:14)
--- NOTE | 2024-10-25 10:16 | HO.PSYCHPN ---
Subjective Subjective Date of Service: 10/25/24 Reason For Visit: crisis Subjective Notes: Conditional Voluntary Healthcare Proxy: No Guardianship: No Medical Problems Affecting Mental Status: No Interim History: Team report pt had a labile outburst last evening over visiting room availability with her . Today, pt recalls the labile episode, but not the issue she was upset over. Calmer today, son Linus to visit. Feeling better, tolerating meds, participating in group. Slept 6 hours, an improvement. Medication Compliance: Yes Side effects from medications: No Attending Groups: Yes Review of Systems Acute medical concerns: No Medical Review of Systems: unchanged Review of Systems Review of Systems Denies today Mental Status Exam Mental Status Exam Patient Appearance: Appropriate Patient Orientation: Person, Place, Time and Situation Level of Consciousness: Alert Patient Behavior: Talkative, Cooperative and Good Eye Contact Mood Description: Depressed and Labile Affect Description: Anxious and Labile Patient Cognition Impaired: No Ability to Follow Directions: Good Speech Pattern: Spontaneous Speech Memory Description: Episodic Impaired Hallucinations: None Delusions: Not Present Thought Process: Rumination Thought Content: positive for Perseveration Depressive Symptoms: Increased Anxiety, Insomnia, Difficulty Sleeping, Hopelessness, Unhappiness, Increased Fatigue and Loss of Energy Judgement: Fair Diagnostics Vital Signs (24Hr): Vital Signs - 24 hr 10/24/24 19:53 10/25/24 07:58 Temperature 98 F 97.6 F Pulse Rate 75 61 Respiratory Rate 18 20 Blood Pressure 117/61 107/56 L Pulse Oximetry 96 95 Oxygen Delivery Method Room Air Room Air BMI result Body Mass Index 19.1 Labs 10/17/24 17:56 10/18/24 14:22 Imaging Radiology Impressions: ITS Impressions Head CT 10/23/24 11:43 IMPRESSION: 1. No acute intracranial abnormality. 2. Severe degenerative TM joint changes. 3. Mild chronic left maxillary sinus disease. Electronically signed by: Rubens Geiger MD 10/23/2024 12:11 PM EDT Medications Medications Current Medications Acetaminophen (Acetaminophen 325 Mg Tablet) 650 mg PO Q6H PRN PRN Reason: Headache/Pain, Scale 1-10 Al Hydroxide/Mg Hydroxide (Magnesium Hydrox/Alum Hydrox 30 Ml Oral.Susp) 30 ml PO Q6H PRN PRN Reason: Heartburn/Nausea Albuterol Sulfate (Albuterol Sulfate 90 Mcg 8 Gm Inhaler) 2 puff INHALE Q4H PRN PRN Reason: wheezing Clonazepam (Clonazepam 1 Mg Tablet) 2 mg PO BEDTIME [facility] Last Admin: 10/24/24 21:19 Dose: 2 mg Docusate Sodium (Docusate Sodium 100 Mg Capsule) 100 mg PO BID PRN PRN Reason: constipation Guanfacine HCl (Guanfacine Hcl Er 1 Mg Tab.Er.24h) 1 mg PO QID [facility] Last Admin: 10/25/24 08:20 Dose: 1 mg Levothyroxine Sodium (Levothyroxine Sodium 50 Mcg Tablet) 50 mcg PO DAILY@0600 [facility] Last Admin: 10/25/24 05:46 Dose: 50 mcg Hypoluxo Carbonate (Hypoluxo Carbonate 300 Mg Tablet) 150 mg PO 0900 [facility] Last Admin: 10/25/24 09:14 Dose: 150 mg Magnesium Hydroxide (Milk Of Magnesia 30 Ml Oral.Susp) 30 ml PO DAILY PRN PRN Reason: Constipation Modafinil (Modafinil 100 Mg Tablet) 200 mg PO 0900 [facility] Last Admin: 10/25/24 09:14 Dose: 200 mg Nicotine Polacrilex (Nicotine Polacrilex 2 Mg Gum) 4 mg BUCCAL Q2H PRN PRN Reason: Nicotine Cravings Pramipexole Dihydrochloride (Pramipexole Di-Hcl 0.25 Mg Tablet) 0.5 mg PO TID [facility] Last Admin: 10/25/24 08:19 Dose: 0.5 mg Pregabalin (Pregabalin 150 Mg Capsule) 150 mg PO TID [facility] Last Admin: 10/25/24 08:20 Dose: 150 mg Sodium Chloride (Sodium Chloride 0.65 % Nasal 44 Ml Sprbtl) 1 spray NOSTRIL-B Q1H PRN PRN Reason: Dryness Valproic Acid (Valproic Acid Liquid 250 Mg/5 Ml Solution) 250 mg PO BEDTIME [facility] Last Admin: 10/24/24 21:20 Dose: 250 mg Vitamin D (Cholecalciferol (Vitamin D3) 25 Mcg Tablet) 50 mcg PO DAILY [facility] Last Admin: 10/25/24 08:19 Dose: 50 mcg Allergies Allergies Allergy/AdvReac Type Severity Reaction Status Date / Time olanzapine [From ZYPREXA] AdvReac Intermediate RLS Verified 10/17/24 16:56 symptoms clonidine AdvReac RLS Verified 10/17/24 16:56 diphenhydramine AdvReac RLS Verified 10/17/24 16:56 [From Benadryl] hydroxyzine AdvReac RLS Verified 10/17/24 16:56 melatonin AdvReac RLS Verified 10/17/24 16:56 atypical antipsychotics AdvReac Severe This class Uncoded 09/03/24 11:02 appears to potentiate RLS/Akathesia Assessment & Plan Assessment & Plan (1) Bipolar II disorder: Status: Acute Code(s): F31.81 - Bipolar II disorder (2) Post-traumatic stress disorder, unspecified: Status: Acute Code(s): F43.10 - Post-traumatic stress disorder, unspecified Plan Patient is a 63-year-old female with history of bipolar disorder, PTSD, alcohol use disorder, and benzodiazepine abuse, who presented to [facility] ER due to decompensation secondary to possible medication misuse. Plan: CV 15 minute safety checks Continue home medications Obtain collateral DC lithium 300mg PO bedtime Start: Depakote 75 mg PO BID Encourage groups ? Obtain VNA Discharge planning 10/19: Active on unit, tearful during 1:1. Pt reports feeling sad; pt stated, I'm so tired of not finding the right medication to help me . pt reports feeling better with decrease dose of lithium. Patient transferred to to be treated by Padmini Quintanilla NP who is familiar with case; pt aware. 10/19: Pt received in transfer from . We met and reviewed med changes- Hypoluxo 150 mg, Valproate 75 mg bid. Pt reports she believes lack of sleep is a significant factor in mood sx. Reviewed her insomnia. Will DC Lorazepam and replace this with Valium 2 mg HS to assess if we can help her to sustain improved sleep (Valproate may help as well). Pt will ask her to order her vitamin B supplements so she can remain consistent with them. Pt discussed changes in family, empty nest syndrome which is OK most of the time but at times brings about gried, ongoing worry for son who is incarcerated in [place] for Fentanyl trafficking and strain on relationship with her grand-daughter. 10/20/24: Continue current plans and regimen. Discontinue Valium and try Klonopin 1 mg q.h.s. to be reviewed tomorrow morning Continue current regimen and plans 10/23/24: Labile today, anger with , team regarding being asked to make a room change. Dementia work up in process. MOCA -indicating MCI 10/25: Increase Depakote to 375 mg. Discussed Ambien on DC as a prn which she has used before. Consulted with OP team, Fiorella Nettles and Jr Cuenca, pt has used Ambien by hx without issues. Reason for continued inpatient stay Substantial Risk for: rapid decompensation Time Spent With Patient Time: Total time managing care of this patient today ____ minutes.
[2024-10-25] MEDS: Sodium Chloride 0.65 % Nasal 44 ML SPRBTL 1 SPRAY NOSTRIL-B (15:53)
[2024-10-25 20:00] VITALS: BP 95/54; PULSE 65; TEMP 36.8; O2SAT 97
[2024-10-25] MEDS: clonazePAM 1 MG TABLET 2 MG PO (20:52)
[2024-10-25] MEDS: Valproic Acid Liquid 250 MG/5 ML SOLUTION 375 MG PO (20:53)
[2024-10-26] MEDS: Levothyroxine Sodium 50 MCG TABLET PO (06:42)
[2024-10-26 08:00] VITALS: BP 132/65; PULSE 67; RESP 18; TEMP 36.4; O2SAT 95
[2024-10-26] MEDS: guanFACINE HCl ER 1 MG TAB.ER.24H PO ×3 (08:27→20:14)
[2024-10-26] MEDS: Pramipexole Di-HCL 0.25 MG TABLET 0.5 MG PO ×3 (08:27→20:16)
[2024-10-26] MEDS: Cholecalciferol (Vitamin D3) 25 MCG TABLET 50 MCG PO (08:27)
[2024-10-26] MEDS: Pregabalin 150 MG CAPSULE PO ×3 (08:27→20:16)
[2024-10-26] MEDS: Lithium Carbonate 300 MG TABLET 150 MG PO (08:31)
[2024-10-26] MEDS: modafiniL 100 MG TABLET 200 MG PO (08:32)
--- NOTE | 2024-10-26 12:31 | PC.NURSE ---
Jaja and her Yaron approached TW at noon time and reported that Jaja seemed groggy, concerned that it may be related to an increase in depakote dosage. Jaja went to lay down shortly after and reported nausea, maalox given.
[2024-10-26] MEDS: Magnesium Hydrox/Alum Hydrox 30 ML ORAL.SUSP PO (12:37)
[2024-10-26 13:55] LABS: Influenza A PCR NEGATIVE (Negative); Influenza B PCR NEGATIVE (Negative); Resp Syncy Virus RNA Qual PCR NEGATIVE (Negative); SARS COV2 PCR INHOUSE NEGATIVE (Negative)
--- NOTE | 2024-10-26 15:13 | HO.PSYCHPN ---
Subjective Subjective Date of Service: 10/26/24 Reason For Visit: crisis Subjective Notes: Conditional Voluntary Healthcare Proxy: No Guardianship: No Medical Problems Affecting Mental Status: No Interim History: Pt seen in the milieu. Sleeping when attempted to meet individually. Tells team she has flu sx. Covid/Flu/RSV screen is negative. Requests for comfort meds-ibuprofen, imodium written Up later in the day, interacting in milieu and with team. Team reports pt slept last night 5 hours-broken, restless with difficulty staying asleep. Ambien is available prn this evening. Medication Compliance: Yes Side effects from medications: No Attending Groups: Intermittent Review of Systems flu sx Medical Review of Systems: unchanged Review of Systems Review of Systems flu sx. Mental Status Exam Mental Status Exam Patient Appearance: Appropriate Patient Orientation: Person, Place, Time and Situation Level of Consciousness: Drowsy Patient Behavior: Asleep Mood Description: Calm Affect Description: Calm Patient Cognition Impaired: No Ability to Follow Directions: Good Speech Pattern: Spontaneous Speech Depressive Symptoms: Increased Fatigue Judgement: Good Diagnostics Vital Signs (24Hr): Vital Signs - 24 hr 10/25/24 20:00 10/26/24 08:00 Temperature 98.2 F 97.6 F Pulse Rate 65 67 Respiratory Rate 18 Blood Pressure 95/54 L 132/65 Pulse Oximetry 97 95 Oxygen Delivery Method Room Air Room Air BMI result Body Mass Index 19.9 Labs 10/17/24 17:56 10/18/24 14:22 Labs: Laboratory Results - last 48 hr 10/26/24 12:55 Influenza Type A (PCR) NEGATIVE Influenza Type B (PCR) NEGATIVE RSV RNA Qual (PCR) NEGATIVE SARS-CoV-2 RNA (RT-PCR) NEGATIVE Imaging Radiology Impressions: ITS Impressions Head CT 10/23/24 11:43 IMPRESSION: 1. No acute intracranial abnormality. 2. Severe degenerative TM joint changes. 3. Mild chronic left maxillary sinus disease. Electronically signed by: Rubens Geiger MD 10/23/2024 12:11 PM EDT Medications Medications Current Medications Acetaminophen (Acetaminophen 325 Mg Tablet) 650 mg PO Q6H PRN PRN Reason: Headache/Pain, Scale 1-10 Al Hydroxide/Mg Hydroxide (Magnesium Hydrox/Alum Hydrox 30 Ml Oral.Susp) 30 ml PO Q6H PRN PRN Reason: Heartburn/Nausea Last Admin: 10/26/24 12:37 Dose: 30 ml Albuterol Sulfate (Albuterol Sulfate 90 Mcg 8 Gm Inhaler) 2 puff INHALE Q4H PRN PRN Reason: wheezing Clonazepam (Clonazepam 1 Mg Tablet) 2 mg PO BEDTIME [facility] Last Admin: 10/25/24 20:52 Dose: 2 mg Docusate Sodium (Docusate Sodium 100 Mg Capsule) 100 mg PO BID PRN PRN Reason: constipation Guanfacine HCl (Guanfacine Hcl Er 1 Mg Tab.Er.24h) 1 mg PO QID [facility] Last Admin: 10/26/24 14:21 Dose: 1 mg Ibuprofen (Ibuprofen 400 Mg Tablet) 400 mg PO Q6H PRN PRN Reason: muscle pain Levothyroxine Sodium (Levothyroxine Sodium 50 Mcg Tablet) 50 mcg PO DAILY@0600 [facility] Last Admin: 10/26/24 06:42 Dose: 50 mcg [place] Carbonate ([place] Carbonate 300 Mg Tablet) 150 mg PO 0900 [facility] Last Admin: 10/26/24 08:31 Dose: 150 mg Magnesium Hydroxide (Milk Of Magnesia 30 Ml Oral.Susp) 30 ml PO DAILY PRN PRN Reason: Constipation Modafinil (Modafinil 100 Mg Tablet) 200 mg PO 0900 [facility] Last Admin: 10/26/24 08:32 Dose: 200 mg Nicotine Polacrilex (Nicotine Polacrilex 2 Mg Gum) 4 mg BUCCAL Q2H PRN PRN Reason: Nicotine Cravings Pramipexole Dihydrochloride (Pramipexole Di-Hcl 0.25 Mg Tablet) 0.5 mg PO TID [facility] Last Admin: 10/26/24 14:21 Dose: 0.5 mg Pregabalin (Pregabalin 150 Mg Capsule) 150 mg PO TID [facility] Last Admin: 10/26/24 14:20 Dose: 150 mg Sodium Chloride (Sodium Chloride 0.65 % Nasal 44 Ml Sprbtl) 1 spray NOSTRIL-B Q1H PRN PRN Reason: Dryness Last Admin: 10/25/24 15:53 Dose: 1 spray Valproic Acid (Valproic Acid Liquid 250 Mg/5 Ml Solution) 375 mg PO BEDTIME [facility] Last Admin: 10/25/24 20:53 Dose: 375 mg Vitamin D (Cholecalciferol (Vitamin D3) 25 Mcg Tablet) 50 mcg PO DAILY [facility] Last Admin: 10/26/24 08:27 Dose: 50 mcg Zolpidem Tartrate (Zolpidem Tartrate 5 Mg Tablet) 5 mg PO BEDTIME PRN PRN Reason: Insomnia Allergies Allergies Allergy/AdvReac Type Severity Reaction Status Date / Time olanzapine [From ZYPREXA] AdvReac Intermediate RLS Verified 10/17/24 16:56 symptoms clonidine AdvReac RLS Verified 10/17/24 16:56 diphenhydramine AdvReac RLS Verified 10/17/24 16:56 [From Benadryl] hydroxyzine AdvReac RLS Verified 10/17/24 16:56 melatonin AdvReac RLS Verified 10/17/24 16:56 atypical antipsychotics AdvReac Severe This class Uncoded 09/03/24 11:02 appears to potentiate RLS/Akathesia Assessment & Plan Assessment & Plan (1) Bipolar II disorder: Status: Acute Code(s): F31.81 - Bipolar II disorder (2) Post-traumatic stress disorder, unspecified: Status: Acute Code(s): F43.10 - Post-traumatic stress disorder, unspecified Plan Patient is a 63-year-old female with history of bipolar disorder, PTSD, alcohol use disorder, and benzodiazepine abuse, who presented to [facility] due to decompensation secondary to possible medication misuse. Plan: CV 15 minute safety checks Continue home medications Obtain collateral DC lithium 300mg PO bedtime Start: Depakote 75 mg PO BID Encourage groups ? Obtain VNA Discharge planning 10/19: Active on unit, tearful during 1:1. Pt reports feeling sad; pt stated, I'm so tired of not finding the right medication to help me . pt reports feeling better with decrease dose of lithium. Patient transferred to to be treated by Padmini Quintanilla NP who is familiar with case; pt aware. 10/19: Pt received in transfer from [facility]. We met and reviewed med changes- [place] 150 mg, Valproate 75 mg bid. Pt reports she believes lack of sleep is a significant factor in mood sx. Reviewed her insomnia. Will DC Lorazepam and replace this with Valium 2 mg HS to assess if we can help her to sustain improved sleep (Valproate may help as well). Pt will ask her to order her vitamin B supplements so she can remain consistent with them. Pt discussed changes in family, empty nest syndrome which is OK most of the time but at times brings about gried, ongoing worry for son who is incarcerated in [place] for Fentanyl trafficking and strain on relationship with her grand-daughter. 10/20/24: Continue current plans and regimen. Discontinue Valium and try Klonopin 1 mg q.h.s. to be reviewed tomorrow morning Continue current regimen and plans 10/23/24: Labile today, anger with , team regarding being asked to make a room change. Dementia work up in process. MOCA -indicating MCI 10/25: Increase Depakote to 375 mg. Discussed Ambien on DC as a prn which she has used before. Consulted with OP team, Fiorella Nettles and Jr Cuenca, pt has used Ambien by hx without issues. 10/26: Flu sx today. Ambien 10 mg HS prn Continue remaining regime Reason for continued inpatient stay Substantial Risk for: rapid decompensation and med/psych decompensation Time Spent With Patient Time: Total time managing care of this patient today ____ minutes.
[2024-10-26] MEDS: Ibuprofen 400 MG TABLET PO (15:57)
[2024-10-26 20:00] VITALS: BP 121/63; PULSE 75; TEMP 36.6; O2SAT 91
[2024-10-26] MEDS: clonazePAM 1 MG TABLET 2 MG PO (20:14)
[2024-10-26] MEDS: Acetaminophen 325 MG TABLET 650 MG PO (20:15)
[2024-10-26] MEDS: Valproic Acid Liquid 250 MG/5 ML SOLUTION 375 MG PO (20:17)
[2024-10-27] MEDS: Zolpidem Tartrate 5 MG TABLET 10 MG PO ×2 (01:36→22:19)
[2024-10-27] MEDS: Levothyroxine Sodium 50 MCG TABLET PO (06:56)
[2024-10-27] MEDS: Ibuprofen 400 MG TABLET PO ×2 (07:07→14:36)
--- NOTE | 2024-10-27 08:28 | P.PNPSI_ITS ---
Subjective Subjective Date of Service: 10/27/24 Reason For Visit: crisis Subjective Notes: Conditional Voluntary Healthcare Proxy: No Guardianship: No Medical Problems Affecting Mental Status: Yes (RLS) Interim History: 63 yo MWF with certain sensitivities to medication- struggles to sleep and restlessness co of diarrhea from depakote- tested negative for flu- Requesting pill form of medication for tonight if possible- Medication Compliance: Yes Side effects from medications: Yes (? diarrhea today) Attending Groups: Intermittent Review of Systems Acute medical concerns: No Review of Systems: diarrhea new- akathisia, restlessness not new Mental Status Exam Mental Status Exam Patient Appearance: Well Grooomed and Appropriate Patient Orientation: Person, Place, Time and Situation Level of Consciousness: Awake Patient Behavior: Appropriate and Cooperative Mood Description: Apprehensive Affect Description: Appropriate Patient Cognition Impaired: No Ability to Follow Directions: Good Speech Pattern: Clear Hallucinations: None Delusions: Not Present Thought Process: Intact and Goal Oriented Thought Content: positive for Racing (at times) Depressive Symptoms: Increased Anxiety Abnormal Motor Activity Signs and Symptoms: Restlessness Judgement: Fair Diagnostics Vital Signs (24Hr): Vital Signs - 24 hr 10/26/24 20:00 Temperature 97.9 F Pulse Rate 75 Blood Pressure 121/63 Pulse Oximetry 91 L Oxygen Delivery Method Room Air BMI result Body Mass Index 19.9 Labs 10/17/24 17:56 10/18/24 14:22 Labs: Laboratory Results - last 48 hr 10/26/24 12:55 Influenza Type A (PCR) NEGATIVE Influenza Type B (PCR) NEGATIVE RSV RNA Qual (PCR) NEGATIVE SARS-CoV-2 RNA (RT-PCR) NEGATIVE Imaging Radiology Impressions: ITS Impressions Head CT 10/23/24 11:43 IMPRESSION: 1. No acute intracranial abnormality. 2. Severe degenerative TM joint changes. 3. Mild chronic left maxillary sinus disease. Electronically signed by: Rubens Geiger MD 10/23/2024 12:11 PM EDT Medications Medications Current Medications Acetaminophen (Acetaminophen 325 Mg Tablet) 650 mg PO Q6H PRN PRN Reason: Headache/Pain, Scale 1-10 Last Admin: 10/26/24 20:15 Dose: 650 mg Al Hydroxide/Mg Hydroxide (Magnesium Hydrox/Alum Hydrox 30 Ml Oral.Susp) 30 ml PO Q6H PRN PRN Reason: Heartburn/Nausea Last Admin: 10/26/24 12:37 Dose: 30 ml Albuterol Sulfate (Albuterol Sulfate 90 Mcg 8 Gm Inhaler) 2 puff INHALE Q4H PRN PRN Reason: wheezing Clonazepam (Clonazepam 1 Mg Tablet) 2 mg PO BEDTIME [facility] Last Admin: 10/26/24 20:14 Dose: 2 mg Docusate Sodium (Docusate Sodium 100 Mg Capsule) 100 mg PO BID PRN PRN Reason: constipation Guanfacine HCl (Guanfacine Hcl Er 1 Mg Tab.Er.24h) 1 mg PO QID [facility] Last Admin: 10/26/24 20:14 Dose: 1 mg Ibuprofen (Ibuprofen 400 Mg Tablet) 400 mg PO Q6H PRN PRN Reason: muscle pain Last Admin: 10/27/24 07:07 Dose: 400 mg Levothyroxine Sodium (Levothyroxine Sodium 50 Mcg Tablet) 50 mcg PO DAILY@0600 [facility] Last Admin: 10/27/24 06:56 Dose: 50 mcg [place] Carbonate (Borger Carbonate 300 Mg Tablet) 150 mg PO 0900 [facility] Last Admin: 10/26/24 08:31 Dose: 150 mg Loperamide HCl (Loperamide Hcl 2 Mg Capsule) 4 mg PO Q4H PRN PRN Reason: Diarrhea Magnesium Hydroxide (Milk Of Magnesia 30 Ml Oral.Susp) 30 ml PO DAILY PRN PRN Reason: Constipation Modafinil (Modafinil 100 Mg Tablet) 200 mg PO 0900 [facility] Last Admin: 10/26/24 08:32 Dose: 200 mg Nicotine Polacrilex (Nicotine Polacrilex 2 Mg Gum) 4 mg BUCCAL Q2H PRN PRN Reason: Nicotine Cravings Pramipexole Dihydrochloride (Pramipexole Di-Hcl 0.25 Mg Tablet) 0.5 mg PO TID [facility] Last Admin: 10/26/24 20:16 Dose: 0.5 mg Pregabalin (Pregabalin 150 Mg Capsule) 150 mg PO TID [facility] Last Admin: 10/26/24 20:16 Dose: 150 mg Sodium Chloride (Sodium Chloride 0.65 % Nasal 44 Ml Sprbtl) 1 spray NOSTRIL-B Q1H PRN PRN Reason: Dryness Last Admin: 10/25/24 15:53 Dose: 1 spray Valproic Acid (Valproic Acid Liquid 250 Mg/5 Ml Solution) 375 mg PO BEDTIME [facility] Last Admin: 10/26/24 20:17 Dose: 375 mg Vitamin D (Cholecalciferol (Vitamin D3) 25 Mcg Tablet) 50 mcg PO DAILY [facility] Last Admin: 10/26/24 08:27 Dose: 50 mcg Zolpidem Tartrate (Zolpidem Tartrate 5 Mg Tablet) 10 mg PO BEDTIME PRN PRN Reason: Insomnia Last Admin: 10/27/24 01:36 Dose: 10 mg Allergies Allergies Allergy/AdvReac Type Severity Reaction Status Date / Time olanzapine [From ZYPREXA] AdvReac Intermediate RLS Verified 10/17/24 16:56 symptoms clonidine AdvReac RLS Verified 10/17/24 16:56 diphenhydramine AdvReac RLS Verified 10/17/24 16:56 [From Benadryl] hydroxyzine AdvReac RLS Verified 10/17/24 16:56 melatonin AdvReac RLS Verified 10/17/24 16:56 atypical antipsychotics AdvReac Severe This class Uncoded 09/03/24 11:02 appears to potentiate RLS/Akathesia Assessment & Plan Assessment & Plan (1) Bipolar II disorder: Status: Acute Code(s): F31.81 - Bipolar II disorder (2) Post-traumatic stress disorder, unspecified: Status: Acute Code(s): F43.10 - Post-traumatic stress disorder, unspecified Plan Patient is a 63-year-old female with history of bipolar disorder, PTSD, alcohol use disorder, and benzodiazepine abuse, who presented to [facility] due to decompensation secondary to possible medication misuse. Plan: CV 15 minute safety checks Continue home medications Obtain collateral DC lithium 300mg PO bedtime Start: Depakote 75 mg PO BID Encourage groups ? Obtain VNA Discharge planning 10/19: Active on unit, tearful during 1:1. Pt reports feeling sad; pt stated, I'm so tired of not finding the right medication to help me . pt reports feeling better with decrease dose of lithium. Patient transferred to to be treated by Padmini Quintanilla NP who is familiar with case; pt aware. 10/19: Pt received in transfer from [facility]. We met and reviewed med changes- [place] 150 mg, Valproate 75 mg bid. Pt reports she believes lack of sleep is a significant factor in mood sx. Reviewed her insomnia. Will DC Lorazepam and replace this with Valium 2 mg HS to assess if we can help her to sustain improved sleep (Valproate may help as well). Pt will ask her to order her vitamin B supplements so she can remain consistent with them. Pt discussed changes in family, empty nest syndrome which is OK most of the time but at times brings about gried, ongoing worry for son who is incarcerated in [place] for Fentanyl trafficking and strain on relationship with her grand-daughter. 10/20/24: Continue current plans and regimen. Discontinue Valium and try Klonopin 1 mg q.h.s. to be reviewed tomorrow morning Continue current regimen and plans 10/23/24: Labile today, anger with , team regarding being asked to make a room change. Dementia work up in process. MOCA -indicating MCI 10/25: Increase Depakote to 375 mg. Discussed Ambien on DC as a prn which she has used before. Consulted with OP team, Fiorella Nettles and Jr Cuenca, pt has used Ambien by hx without issues. 10/26: Flu sx today. Ambien 10 mg HS prn Continue remaining regime 10/27 diarrhea felt to be s/e of depakote but not flu-will change dosing to 2 different formulations of depakote but in pill form- Patient educated on: diagnosis and medication risk/benefits Informed Consent: understands Reason for continued inpatient stay Substantial Risk for: rapid decompensation and med/psych decompensation Time Spent With Patient Time: Total time managing care of this patient today ____ minutes.
[2024-10-27 08:33] VITALS: BP 129/62; PULSE 73; RESP 16; TEMP 36.8; O2SAT 95
[2024-10-27] MEDS: guanFACINE HCl ER 1 MG TAB.ER.24H PO ×4 (09:15→22:21)
[2024-10-27] MEDS: Pramipexole Di-HCL 0.25 MG TABLET 0.5 MG PO ×3 (09:15→22:20)
[2024-10-27] MEDS: Cholecalciferol (Vitamin D3) 25 MCG TABLET 50 MCG PO (09:15)
[2024-10-27] MEDS: Lithium Carbonate 300 MG TABLET 150 MG PO (09:50)
[2024-10-27] MEDS: modafiniL 100 MG TABLET 200 MG PO (09:50)
[2024-10-27] MEDS: Acetaminophen 325 MG TABLET 650 MG PO (09:50)
[2024-10-27] MEDS: Pregabalin 150 MG CAPSULE PO ×3 (09:50→22:18)
[2024-10-27 20:00] VITALS: BP 122/54; PULSE 74; TEMP 36.4; O2SAT 95
[2024-10-27] MEDS: clonazePAM 1 MG TABLET 2 MG PO (22:18)
[2024-10-27] MEDS: Divalproex Sodium Sprinkles 125 MG CAP.DR.SPR PO (22:19)
[2024-10-27] MEDS: Divalproex Sodium ER 250 MG TAB.ER.24H PO (22:20)
[2024-10-28] MEDS: Levothyroxine Sodium 50 MCG TABLET PO (06:27)
[2024-10-28 08:19] VITALS: BP 105/55; PULSE 81; RESP 16; TEMP 36.5; O2SAT 93
[2024-10-28] MEDS: Pramipexole Di-HCL 0.25 MG TABLET 0.5 MG PO ×3 (08:20→20:50)
[2024-10-28] MEDS: Lithium Carbonate 300 MG TABLET 150 MG PO (08:20)
[2024-10-28] MEDS: Cholecalciferol (Vitamin D3) 25 MCG TABLET 50 MCG PO (08:20)
[2024-10-28] MEDS: Pregabalin 150 MG CAPSULE PO ×3 (08:20→20:50)
[2024-10-28] MEDS: guanFACINE HCl ER 1 MG TAB.ER.24H PO ×4 (08:20→20:50)
[2024-10-28] MEDS: modafiniL 100 MG TABLET 200 MG PO (08:21)
--- NOTE | 2024-10-28 11:37 | HO.PSYCHPN ---
Subjective Subjective Date of Service: 10/28/24 Reason For Visit: crisis Subjective Notes: Conditional Voluntary Healthcare Proxy: No Guardianship: No Medical Problems Affecting Mental Status: No Interim History: 63 yo reports doing better except for only 5 hrs of sleep which is kind of usual for her- feels combo of low dose lithium and depakote at pm is helping- tolerated pill formulation and agrees to try 500mg tonight Medication Compliance: Yes Side effects from medications: No (no further diarrhea) Attending Groups: Yes Review of Systems Acute medical concerns: No Medical Review of Systems: changed Review of Systems: no diarrhea Mental Status Exam Mental Status Exam Patient Appearance: Well Grooomed and Appropriate Patient Orientation: Person, Place, Time and Situation Level of Consciousness: Awake Patient Behavior: Appropriate, Cooperative and Good Eye Contact Mood Description: Calm (less anxious) Affect Description: Appropriate Patient Cognition Impaired: No Ability to Follow Directions: Good Speech Pattern: Clear Hallucinations: None Delusions: Not Present Thought Process: Intact Thought Content: positive for Intact and positive for Goal Oriented Judgement: Good Diagnostics Vital Signs (24Hr): Vital Signs - 24 hr 10/27/24 20:00 10/28/24 08:19 Temperature 97.5 F 97.7 F Pulse Rate 74 81 Respiratory Rate 16 Blood Pressure 122/54 L 105/55 L Pulse Oximetry 95 93 Oxygen Delivery Method Room Air Room Air BMI result Body Mass Index 19.9 Labs 10/17/24 17:56 10/18/24 14:22 Labs: Laboratory Results - last 48 hr 10/26/24 12:55 Influenza Type A (PCR) NEGATIVE Influenza Type B (PCR) NEGATIVE RSV RNA Qual (PCR) NEGATIVE SARS-CoV-2 RNA (RT-PCR) NEGATIVE Imaging Radiology Impressions: ITS Impressions Head CT 10/23/24 11:43 IMPRESSION: 1. No acute intracranial abnormality. 2. Severe degenerative TM joint changes. 3. Mild chronic left maxillary sinus disease. Electronically signed by: Rubens Geiger MD 10/23/2024 12:11 PM EDT Medications Medications Current Medications Acetaminophen (Acetaminophen 325 Mg Tablet) 650 mg PO Q6H PRN PRN Reason: Headache/Pain, Scale 1-10 Last Admin: 10/27/24 09:50 Dose: 650 mg Al Hydroxide/Mg Hydroxide (Magnesium Hydrox/Alum Hydrox 30 Ml Oral.Susp) 30 ml PO Q6H PRN PRN Reason: Heartburn/Nausea Last Admin: 10/26/24 12:37 Dose: 30 ml Albuterol Sulfate (Albuterol Sulfate 90 Mcg 8 Gm Inhaler) 2 puff INHALE Q4H PRN PRN Reason: wheezing Clonazepam (Clonazepam 1 Mg Tablet) 2 mg PO BEDTIME [facility] Last Admin: 10/27/24 22:18 Dose: 2 mg Divalproex Sodium (Divalproex Sodium Sprinkles 125 Mg Cap.Spr) 125 mg PO BEDTIME [facility] Last Admin: 10/27/24 22:19 Dose: 125 mg Divalproex Sodium (Divalproex Sodium Er 250 Mg Tab.Er.24h) 250 mg PO BEDTIME [facility] Last Admin: 10/27/24 22:20 Dose: 250 mg Docusate Sodium (Docusate Sodium 100 Mg Capsule) 100 mg PO BID PRN PRN Reason: constipation Guanfacine HCl (Guanfacine Hcl Er 1 Mg Tab.Er.24h) 1 mg PO QID [facility] Last Admin: 10/28/24 08:20 Dose: 1 mg Ibuprofen (Ibuprofen 400 Mg Tablet) 400 mg PO Q6H PRN PRN Reason: muscle pain Last Admin: 10/27/24 14:36 Dose: 400 mg Levothyroxine Sodium (Levothyroxine Sodium 50 Mcg Tablet) 50 mcg PO DAILY@0600 [facility] Last Admin: 10/28/24 06:27 Dose: 50 mcg [place] Carbonate ([place] Carbonate 300 Mg Tablet) 150 mg PO DAILY [facility] Last Admin: 10/28/24 09:42 Dose: Not Given Loperamide HCl (Loperamide Hcl 2 Mg Capsule) 4 mg PO Q4H PRN PRN Reason: Diarrhea Magnesium Hydroxide (Milk Of Magnesia 30 Ml Oral.Susp) 30 ml PO DAILY PRN PRN Reason: Constipation Modafinil (Modafinil 100 Mg Tablet) 200 mg PO DAILY [facility] Last Admin: 10/28/24 09:42 Dose: Not Given Nicotine Polacrilex (Nicotine Polacrilex 2 Mg Gum) 4 mg BUCCAL Q2H PRN PRN Reason: Nicotine Cravings Pramipexole Dihydrochloride (Pramipexole Di-Hcl 0.25 Mg Tablet) 0.5 mg PO TID [facility] Last Admin: 10/28/24 08:20 Dose: 0.5 mg Pregabalin (Pregabalin 150 Mg Capsule) 150 mg PO TID LORI Last Admin: 10/28/24 08:20 Dose: 150 mg Sodium Chloride (Sodium Chloride 0.65 % Nasal 44 Ml Sprbtl) 1 spray NOSTRIL-B Q1H PRN PRN Reason: Dryness Last Admin: 10/25/24 15:53 Dose: 1 spray Vitamin D (Cholecalciferol (Vitamin D3) 25 Mcg Tablet) 50 mcg PO DAILY LORI Last Admin: 10/28/24 08:20 Dose: 50 mcg Zolpidem Tartrate (Zolpidem Tartrate 5 Mg Tablet) 10 mg PO BEDTIME PRN PRN Reason: Insomnia Last Admin: 10/27/24 22:19 Dose: 10 mg Allergies Allergies Allergy/AdvReac Type Severity Reaction Status Date / Time olanzapine [From ZYPREXA] AdvReac Intermediate RLS Verified 10/17/24 16:56 symptoms clonidine AdvReac RLS Verified 10/17/24 16:56 diphenhydramine AdvReac RLS Verified 10/17/24 16:56 [From Benadryl] hydroxyzine AdvReac RLS Verified 10/17/24 16:56 melatonin AdvReac RLS Verified 10/17/24 16:56 atypical antipsychotics AdvReac Severe This class Uncoded 09/03/24 11:02 appears to potentiate RLS/Akathesia Assessment & Plan Assessment & Plan (1) Bipolar II disorder: Status: Acute Code(s): F31.81 - Bipolar II disorder (2) Post-traumatic stress disorder, unspecified: Status: Acute Code(s): F43.10 - Post-traumatic stress disorder, unspecified Plan Patient is a 63-year-old female with history of bipolar disorder, PTSD, alcohol use disorder, and benzodiazepine abuse, who presented to [facility] due to decompensation secondary to possible medication misuse. Plan: CV 15 minute safety checks Continue home medications Obtain collateral DC lithium 300mg PO bedtime Start: Depakote 75 mg PO BID Encourage groups ? Obtain VNA Discharge planning 10/19: Active on unit, tearful during 1:1. Pt reports feeling sad; pt stated, I'm so tired of not finding the right medication to help me . pt reports feeling better with decrease dose of lithium. Patient transferred to to be treated by Padmini Quintanilla NP who is familiar with case; pt aware. 10/19: Pt received in transfer from . We met and reviewed med changes- [place] 150 mg, Valproate 75 mg bid. Pt reports she believes lack of sleep is a significant factor in mood sx. Reviewed her insomnia. Will DC Lorazepam and replace this with Valium 2 mg HS to assess if we can help her to sustain improved sleep (Valproate may help as well). Pt will ask her to order her vitamin B supplements so she can remain consistent with them. Pt discussed changes in family, empty nest syndrome which is OK most of the time but at times brings about gried, ongoing worry for son who is incarcerated in [place] for Fentanyl trafficking and strain on relationship with her grand-daughter. 10/20/24: Continue current plans and regimen. Discontinue Valium and try Klonopin 1 mg q.h.s. to be reviewed tomorrow morning Continue current regimen and plans 10/23/24: Labile today, anger with , team regarding being asked to make a room change. Dementia work up in process. MOCA -indicating [facility] 10/25: Increase Depakote to 375 mg. Discussed Ambien on DC as a prn which she has used before. Consulted with OP team, Fiorella Nettles and Jr Cuenca, pt has used Ambien by hx without issues. 10/26: Flu sx today. Ambien 10 mg HS prn Continue remaining regime 10/27 diarrhea felt to be s/e of depakote but not flu-will change dosing to 2 different formulations of depakote but in pill form- 10/28 agreed to inc depakote to 500mg otherwise ctp Patient educated on: medication risk/benefits Informed Consent: understands Reason for continued inpatient stay Substantial Risk for: rapid decompensation Time Spent With Patient Time: Total time managing care of this patient today ____ minutes.
[2024-10-28] MEDS: Ibuprofen 400 MG TABLET PO ×2 (15:39→21:15)
[2024-10-28] MEDS: Acetaminophen 325 MG TABLET 650 MG PO (17:40)
[2024-10-28 19:39] VITALS: BP 100/55; PULSE 70; TEMP 37.1; O2SAT 96
[2024-10-28] MEDS: Divalproex Sodium ER 500 MG TAB.ER.24H PO (20:50)
[2024-10-28] MEDS: clonazePAM 1 MG TABLET 2 MG PO (20:51)
[2024-10-28] MEDS: Zolpidem Tartrate 5 MG TABLET 10 MG PO (20:51)
[2024-10-29] MEDS: Levothyroxine Sodium 50 MCG TABLET PO (05:47)
[2024-10-29 07:57] VITALS: BP 105/58; PULSE 65; RESP 18; TEMP 36.6; O2SAT 94
[2024-10-29] MEDS: Pregabalin 150 MG CAPSULE PO ×2 (08:40→15:04)
[2024-10-29] MEDS: Lithium Carbonate 300 MG TABLET 150 MG PO (08:40)
[2024-10-29] MEDS: guanFACINE HCl ER 1 MG TAB.ER.24H PO ×2 (08:41→13:00)
[2024-10-29] MEDS: modafiniL 100 MG TABLET 200 MG PO (08:41)
[2024-10-29] MEDS: Cholecalciferol (Vitamin D3) 25 MCG TABLET 50 MCG PO (08:41)
[2024-10-29] MEDS: Pramipexole Di-HCL 0.25 MG TABLET 0.5 MG PO ×2 (08:41→15:05)
[2024-10-29] MEDS: Lidocaine 4 % Patch ADH..PATCH 1 PATCH TRANSDERMA (08:43)
--- NOTE | 2024-10-29 13:16 | P.DS_ITS ---
DS: Providers Provider Date of Service: 10/29/24 Date of admission: 10/18/24 10:33 Date of discharge: 10/29/24 Primary care physician: Tonya Sarmiento MD Admitting clinician: Rubi Garces Attending physician on admission: Jr Cuenca Attending physician on discharge: Jr Cuenca Discharging clinician: Padmini Quintanilla DS: Diagnosis Discharge Diagnosis (1) Bipolar II disorder: Status: Acute (2) Post-traumatic stress disorder, unspecified: Status: Acute DS: Medications Discharge Medications Home Medications: Previous Rx's ?Medication ?Instructions ?Recorded albuterol sulfate 90 mcg/actuation 2 puff inhalation Q4-6H PRN 10/29/24 aerosol inhaler (Ventolin HFA) wheezing 30 days #1 inhaler cholecalciferol (vitamin D3) 50 50 mcg PO DAILY #30 caps 10/29/24 mcg (2,000 unit) capsule (Vitamin D3) divalproex 500 mg tablet,extended 500 mg PO BEDTIME #30 tabs 10/29/24 release 24 hr docusate sodium 100 mg capsule 100 mg PO BID PRN constipation #60 10/29/24 caps guanfacine 1 mg tablet,extended 1 mg PO QID 30 days #120 tabs 10/29/24 release 24 hr ibuprofen 400 mg tablet 400 mg PO Q6H PRN muscle pain #0 10/29/24 tabs levothyroxine 50 mcg tablet 50 mcg PO DAILY@0600 #30 tabs 10/29/24 lidocaine 4 % topical patch 1 patch transdermal DAILY #30 ea 10/29/24 (Lidocaine Pain Relief) lithium carbonate 300 mg tablet 150 mg (1/2 x 300 mg) PO DAILY #30 10/29/24 tabs modafinil 200 mg tablet 200 mg PO QAM #30 tabs 10/29/24 pramipexole 0.5 mg tablet 0.5 mg PO TID 30 days #90 tabs 10/29/24 pregabalin 150 mg capsule 150 mg PO TID #90 caps 10/29/24 sodium chloride 0.65 % nasal spray 1 spray intranasal Q1H PRN Dryness 10/29/24 aerosol ([place] Nasal) #0 mL zolpidem 5 mg tablet 10 mg (2 x 5 mg) PO BEDTIME PRN 10/29/24 Insomnia #7 tabs Mental Status Exam Mental Status Exam Patient Appearance: Well Grooomed and Appropriate Patient Orientation: Person, Place, Time and Situation Level of Consciousness: Awake Patient Behavior: Appropriate, Cooperative and Good Eye Contact Mood Description: Calm (less anxious) Affect Description: Appropriate Patient Cognition Impaired: No Ability to Follow Directions: Good Speech Pattern: Clear Hallucinations: None Delusions: Not Present Thought Process: Intact Thought Content: positive for Intact and positive for Goal Oriented Judgement: Good Data Data Completed and Pending Completed studies during hospitalization [Text1]: 10/26/24 12:55 Influenza Type A (PCR) NEGATIVE Influenza Type B (PCR) NEGATIVE RSV RNA Qual (PCR) NEGATIVE SARS-CoV-2 RNA (RT-PCR) NEGATIVE 10/17/24 Unknown Urine clean catch - Clean Catch Midstream Urine Culture - Final Imaging Diagnostic Imaging Impressions Head CT 10/23/24 11:43 IMPRESSION: 1. No acute intracranial abnormality. 2. Severe degenerative TM joint changes. 3. Mild chronic left maxillary sinus disease. Electronically signed by: Rubens Geiger MD 10/23/2024 12:11 PM EDT DS: Summary Hospital Course Hospital Course: Admission to adult psychiatry for exacerbation of PTSD, Bipolar Disorder and misuse of medications. Presented per team as appearing intoxicated. Family felt she was [place] toxic, Li Level 0.35, Toxicology positive for THC. Mood was irritable, anxious, impulsive with sleep and appetite disturbance. Medications were reviewed and changes were made. Depakote was titrated, [place] was decreased. Depakote titration was tolerated. Klonopin, Ambien added for sleep. Pt was able to sleep 6-7 hours. Mood stabilized with Depakote increases. Aftercare planning was initiated. On 10/29/24 pt requested discharge, stating symptoms were managed well and she was prepared to return home. She was asked to remain so aftercare planning could be completed, but declined, stating she could be called when this was completed. Her was called at 11:18am without response, however pt reported she had contact with him and he would be picking her up at the end of the day. Out pt clinical team met with pt to inform her they were searching for a permanent prescriber as pt's time in [facility] was coming to an end. Pt was accepting of this. Pt was encouraged to call tw upon discharge with questions or concerns. Status at Discharge Functional status at discharge: independent ambulation Overall status at discharge: patient is back to baseline Time Spent with Patient Time attestation: Total time managing care of this patient today ____ minutes. Time spent: Greater than 30 minutes Discharge Plan Discharge Anticipated Discharge Date/Time: 10/29/24 17:00 Patient Disposition: Home, Self-Care Discharge Diagnosis: PTSD Bipolar disorder, Type II Referrals: [facility] [Other] - 1 Week (Swapna Banks, [facility], ext [phone] Please call to follow up with Swapna for assistance with outpatient follow up ) [facility] [Other] - 1 Week (Please call if you have not heard from them in 1 week with your appointment date and time ) Psychiatry: Rylee Nettles ([facility]) [Other] - 11/13/24 11:30 am (Rylee will continue to bridge but you have to find an ongoing outpatient psych prescriber) Psychiatry Referral: [facility] [Other] - 1 Week (You are on a wait list for a psychiatric prescriber at one of the above offices; they will call you when a prescriber becomes available. It is advised you call the above number to follow up once a week) Tonya Sarmiento MD [Primary Care Provider] - 1 Week Discharge Medications: New divalproex 500 mg Tablet Extended Release 24 Hr 500 mg PO BEDTIME Qty: 30 0RF ibuprofen 400 mg Tablet 400 mg PO Q6H PRN (Reason: muscle pain) Qty: 0 0RF zolpidem 5 mg Tablet 10 mg PO BEDTIME PRN (Reason: Insomnia) Qty: 7 4RF lithium carbonate 300 mg Tablet 150 mg PO DAILY Qty: 30 0RF [place] Nasal 0.65 % Aerosol,[place] 1 spray intranasal Q1H PRN (Reason: Dryness) Qty: 0 0RF pregabalin 150 mg Capsule 150 mg PO TID Qty: 90 0RF lidocaine [Lidocaine Pain Relief] 4 % Adhesive Patch,Medicated 1 patch transdermal DAILY Qty: 30 0RF Protocol: Apply to: Apply to: affected area levothyroxine 50 mcg Tablet 50 mcg PO DAILY@0600 Qty: 30 0RF clonazepam [Klonopin] 2 mg tablet 2 mg PO BEDTIME Qty: 7 4RF Rx Instructions: administer 30 minutes before bedtime Continued pramipexole 0.5 mg tablet 0.5 mg PO TID 30 Days Qty: 90 1RF modafinil 200 mg tablet 200 mg PO QAM Qty: 30 1RF docusate sodium 100 mg capsule 100 mg PO BID PRN (Reason: constipation) Qty: 60 0RF albuterol sulfate [Ventolin HFA] 90 mcg/actuation HFA aerosol inhaler 2 puff inhalation Q4-6H PRN (Reason: wheezing) 30 Days Qty: 1 3RF cholecalciferol (vitamin D3) [Vitamin D3] 50 mcg (2,000 unit) capsule 50 mcg PO DAILY Qty: 30 0RF guanfacine 1 mg tablet extended release 24 hr 1 mg PO QID 30 Days Qty: 120 2RF Rx Instructions: Take one tablet 4 times a day at 7am, 12pm and 5pm, and bedtime Discontinued lorazepam 1 mg tablet 1 mg PO DAILY PRN (Reason: anxiety) Qty: 10 2RF lithium carbonate 300 mg tablet extended release 300 mg PO BEDTIME lithium carbonate 150 mg capsule 150 mg PO QAM pregabalin 200 mg capsule 200 mg PO BEDTIME 30 Days Qty: 30 1RF pregabalin 150 mg capsule 150 mg PO BID 30 Days Qty: 60 1RF Rx Instructions: take one cap in the morning and one at 3 pm. Discharge Orders: Discharge Order (Routine); Ordered 10/29/24 Ordered By: Padmini Quintanilla Diet: Advance to usual diet Activity on Discharge: As tolerated Stand Alone Forms: Patient Portal Discharge page, Community Support Print Language: Polish Care Plan Goals: Mood and Behavioral Stabilization Health Concerns: Mood and Behavioral Stabilization Plan of Treatment: Attend scheduled appointments Take medications as directed Call/Return as needed Assessment: No SI,HI,AH,VH No sx of acute illness Pt is sleeping seven hours per night, feels prepared to discharge and will call/return if needed. Discharge Date/Time: 10/29/24 15:44
--- NOTE | 2024-10-30 10:30 | PM.EVENT ---
Documented by User: Padmini JustinKateCorby, GABO 10/30/24 10:36 Event Note Date of Service: 10/30/24 Event Note: 10/30- Received a voice mail from pt sent 10/29 who reports is very angry about discharge and they have argued, saying things to me that were not great I am unready for discharge under his discretion . He feels I am unsteady on my feet as I could not carry all of my luggage. Asks that tw call him at [phone] but states he will not answer. Pt reports he is angry that she was discharged and family meeting was not done due to the unit's need to discharge before 5pm to accomodate new admits. 10/30-Recieved a voice mail from Blanca Franco that pt had called the unit, despondent post argument with as he did not agree with discharge. Pt reports she will return to ER for readmit. Blanca may be reached as needed should there be any questions. Time Spent With Patient Time: Total time managing care of this patient today ____ minutes. Documented by User: Jr Cuenca MD 10/30/24 11:58 Event Note Date of Service: 10/30/24
--- NOTE | 2024-10-30 10:38 | PM.EVENT ---
Documented by User: Padmini Quintanilla APRN 10/30/24 10:39 Event Note Date of Service: 10/30/24 Event Note: 10/30: Call to [facility]. Pt has picked up all meds on 10/29 with the exception of Ambien. Time Spent With Patient Time: Total time managing care of this patient today ____ minutes. Documented by User: Jr Cuenca MD 10/30/24 12:00 Event Note Date of Service: 10/30/24
== END 2024-10-29 15:44 | disposition home or self-care (01) | DRG 885 ==
LOC: HO.ED 19:31 → HO.PADLT16 10-18 10:47 → HO.PM5 10-19 11:37
PROVIDERS: Physician Assistant; Admitting Provider Registered Nurse; Emergency Provider Emergency Medicine; PCP Internal Medicine; Visit Provider Clinical Nurse Specialist Psychiatric/Mental Health, Adult
DX: F31.81 Bipolar II disorder (principal); E03.9 Hypothyroidism, unspecified; F43.10 Post-traumatic stress disorder, unspecified; Z20.822 Contact with and (suspected) exposure to COVID-19; Z79.890 Hormone replacement therapy; Z79.899 Other long term (current) drug therapy
CPT/HCPCS: 0241U; 36415; 70450; 80048; 80053; 80061; 80076; 80178; 80307; 81001; 83735; 85025; 87086; 93005; 95816; 99285; S9485

== ENCOUNTER → 2024-10-17 16:57 | Outpatient (BNV) | payer OTHER, SELFPAY | PROVIDERS: PCP Internal Medicine; Visit Provider Radiology Diagnostic Radiology | DX: R26.81 Unsteadiness on feet (principal); R41.0 Disorientation, unspecified | CPT/HCPCS: 70450 ==

== ENCOUNTER 2024-10-18 10:33 | Outpatient (BNV) | payer OTHER, SELFPAY | END 2024-10-18 12:52 | PROVIDERS: Admitting Provider Registered Nurse; Emergency Provider Emergency Medicine; PCP Internal Medicine; Visit Provider Internal Medicine Cardiovascular Disease | DX: I25.2 Old myocardial infarction (principal) | CPT/HCPCS: 93010 ==

== ENCOUNTER 2024-10-18 10:33 | Outpatient (BNV) | payer OTHER, SELFPAY | END 2024-10-23 11:43 | PROVIDERS: Admitting Provider Registered Nurse; Emergency Provider Emergency Medicine; PCP Internal Medicine; Visit Provider Radiology Diagnostic Radiology | DX: F31.81 Bipolar II disorder (principal) | CPT/HCPCS: 70450 ==

== ENCOUNTER → 2024-10-18 10:33 | Outpatient (BNV) | payer OTHER, SELFPAY | PROVIDERS: Admitting Provider Registered Nurse; Emergency Provider Emergency Medicine; PCP Internal Medicine; Visit Provider Registered Nurse | DX: F31.81 Bipolar II disorder (principal); F43.10 Post-traumatic stress disorder, unspecified | CPT/HCPCS: 90792 ==

== ENCOUNTER 2024-10-30 07:26 | Inpatient (IN) | payer OTHER, SELFPAY ==
--- NOTE | 2024-10-30 | ECG_ITS ---
Test Reason : med clearance Blood Pressure : */* mmHG Vent. Rate : 61 BPM Atrial Rate : 61 BPM P-R Int : 152 ms QRS Dur : 102 ms QT Int : 378 ms P-R-T Axes : 72 76 1 degrees QTcB Int : 380 ms Normal sinus rhythm Cannot rule out Anterior infarct (cited on or before 15-Oct-2024) Abnormal ECG When compared with ECG of 18-Oct-2024 12:12, Questionable change in initial forces of Septal leads Referred By: Meghan Barakat Electronically Signed By: Sebastian Vivas
[2024-10-30 07:37] VITALS: BP 132/40; BP 94/62; PULSE 73; PULSE 81; RESP 16; TEMP 36.3; O2SAT 91; O2SAT 92; BMI 21.5
[2024-10-30 07:42] VITALS: RESP 18
--- NOTE | 2024-10-30 07:45 | PC.NURSE ---
Jaja comes to the ED today reporting that she feels as though she was discharged from too early. She was discharged yesterday 10/29 after a 12 day stay on the unit. Patient is denying SI/HI/AH/VH. She reports she just doesn't feel stabilized . Patient is calm and cooperative, help seeking, offering no complaints at this time. Patient verbalizes understanding of plan of care for medical clearance and CARE team markel
--- NOTE | 2024-10-30 08:07 | ED_ITS ---
HPI - Psych General Chief Complaint: Psychiatric Symptoms Stated Complaint: CRISIS Time Seen by Provider: 10/30/24 07:29 Source: patient, EMS, RN notes reviewed and old records reviewed Mode of arrival: EMS History of Present Illness ED Provider: Meghan Barakat PA-C HPI Narrative: 63-year-old female with a past medical history bipolar, PTSD, alcohol use disorder, benzo abuse, discharged from our inpatient psych unit yesterday, presenting back to the ED via EMS stating she feels she was discharged prematurely. Reports depression/dark thoughts, however denies SI/HI. Denies auditory/ visual hallucinations, EtOH or illicit substance use. Admits to compliance with prescribed medications. Related Data Previous Rx's ?Medication ?Instructions ?Recorded albuterol sulfate 90 mcg/actuation 2 puff inhalation Q4-6H PRN 10/29/24 aerosol inhaler (Ventolin HFA) wheezing 30 days #1 inhaler cholecalciferol (vitamin D3) 50 50 mcg PO DAILY #30 caps 10/29/24 mcg (2,000 unit) capsule (Vitamin D3) clonazepam 2 mg tablet (Klonopin) 2 mg PO BEDTIME #7 tabs 10/29/24 divalproex 500 mg tablet,extended 500 mg PO BEDTIME #30 tabs 10/29/24 release 24 hr docusate sodium 100 mg capsule 100 mg PO BID PRN constipation #60 10/29/24 caps guanfacine 1 mg tablet,extended 1 mg PO QID 30 days #120 tabs 10/29/24 release 24 hr ibuprofen 400 mg tablet 400 mg PO Q6H PRN muscle pain #0 10/29/24 tabs levothyroxine 50 mcg tablet 50 mcg PO DAILY@0600 #30 tabs 10/29/24 lidocaine 4 % topical patch 1 patch transdermal DAILY #30 ea 10/29/24 (Lidocaine Pain Relief) lithium carbonate 300 mg tablet 150 mg (1/2 x 300 mg) PO DAILY #30 10/29/24 tabs modafinil 200 mg tablet 200 mg PO QAM #30 tabs 10/29/24 pramipexole 0.5 mg tablet 0.5 mg PO TID 30 days #90 tabs 10/29/24 pregabalin 150 mg capsule 150 mg PO TID #90 caps 10/29/24 sodium chloride 0.65 % nasal spray 1 spray intranasal Q1H PRN Dryness 10/29/24 aerosol (Deep Sea Nasal) #0 mL zolpidem 5 mg tablet 10 mg (2 x 5 mg) PO BEDTIME PRN 10/29/24 Insomnia #7 tabs Allergies Allergy/AdvReac Type Severity Reaction Status Date / Time olanzapine [From ZYPREXA] AdvReac Intermediate RLS Verified 10/30/24 07:41 symptoms clonidine AdvReac RLS Verified 10/30/24 07:41 diphenhydramine AdvReac RLS Verified 10/30/24 07:41 [From Benadryl] hydroxyzine AdvReac RLS Verified 10/30/24 07:41 melatonin AdvReac RLS Verified 10/30/24 07:41 atypical antipsychotics AdvReac Severe This class Uncoded 10/30/24 07:41 appears to potentiate RLS/Akathesia Review of Systems 2 Review of Systems: Yes all other systems are reviewed and are negative Constitutional: Constitutional: Reports as per [facility] Past Medical History Attestation statement: The following information was validated with the patient. 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 [id number] ADHD Hypothyroidism Generalized anxiety disorder Polysubstance use disorder Cannabis use disorder Cocaine use disorder Acute medication-induced akathisia Osteopenia of multiple sites Skin lesion of back Syncope Type II diabetes mellitus Fibromyalgia Benzodiazepine abuse RLS (restless legs syndrome) COPD (chronic obstructive pulmonary disease) HLD (hyperlipidemia) Surgical History History of vaginal hysterectomy History of cataract surgery Family History Family History Mother CAD (coronary artery disease) Father Alcoholism Son Substance use disorder Son Substance use disorder Social History Social History Household Members: Spouse Household Members Other:: son's girlfriend Housing: House Do you presently have visiting nurse or other home services: No Unable to assess alcohol history related to: Unknown Alcohol intake: never Comment: Pt reports falling d/t excessive intake of Benzo's prior to admission Patient Tobacco Use Status: Current everyday Tobacco user Tobacco use type: Cigarette Cigarette Packs Per Day: 1 Cigarettes Per Day: 7 Years Smoked: 45 Smoked in Last 30 Days: Yes e-Cigarette/Vaping Use: Never Used Second Hand Smoke Exposure: No Use of substances other than those prescribed or required for medical reasons: Yes Substance Use Type: Marijuana Substance Use Frequency: Occasionally Advance Directives: Yes Advance Directives on File: Yes Advance Directives Date on File: 06/05/24 Patient : No service: No Current occupational status: unemployed Sexual orientation: Straight/Heterosexual Cognitive needs: No Hearing needs: No Vision needs: No Physical Exam 2 Vital Signs: Vital Signs: Last Vital Signs Temp 97.4 F 10/30/24 07:37 Pulse 73 10/30/24 07:37 Resp 18 10/30/24 07:42 BP 94/62 10/30/24 07:37 Pulse Ox 92 10/30/24 07:37 O2 Del Method Room Air 10/30/24 07:37 BMI result Body Mass Index 21.5 Const: Other: Appears intoxicated General: cooperative and no acute distress Orientation/consciousness: p atient oriented x3 Limitations: no limitations HEENT: Head: Yes normal to inspection and Yes atraumatic Ears: hearing grossly normal bilaterally General nose exam: Normal external nose present Face and sinus: Yes normal facial exam Eyes: General: appearance normal, both eyes and all related structures EOM: EOMs intact bilaterally Neck: Neck: Yes normal visual inspection and Yes no meningeal signs Resp: Effort & Inspection: normal respiratory effort and no respiratory distress Auscultation: clear to auscultation bilaterally Cardio: Rate: regular rate Heart sounds: S1 normal heart sound present and S2 normal heart sound present Skin: Rashes: no rashes Wounds: no wounds Neuro: General: patient oriented x3, tone normal, no meningeal signs and CN's II-XI intact bilaterally Cranial nerves: Yes CN's II-XII intact bilaterally Gait exam (Neuro): Normal gait present Extrem: General: Yes normal to inspection Course Course Course Narrative: -1018-- labs reassuring - valproic acid level and lithium levels low. Ethanol negative - physician observation initiated at 10:18 as patient needs more time to be evaluated by CARE team > patient will be inpatient psych admission Medications Administered Generic Name Dose Route Start Last Admin Trade Name Freq PRN Reason Stop Dose Admin Guanfacine HCl 1 mg 10/30/24 13:00 10/30/24 14:57 Guanfacine Hcl Er 1 Mg Tab.Er.24h PO 1 mg QID LORI Administration Lidocaine 1 patch 10/30/24 13:00 10/30/24 13:16 Lidocaine 4 % Patch Adh..Patch TRANSDERMA 1 patch DAILY LORI Administration Protocol Boomer Carbonate 150 mg 10/30/24 13:00 10/30/24 13:15 Boomer Carbonate 300 Mg Capsule PO 150 mg DAILY LORI Administration Modafinil 200 mg 10/30/24 13:00 10/30/24 13:15 Modafinil 100 Mg Tablet PO 200 mg DAILY LORI Administration Pregabalin 150 mg 10/30/24 15:00 10/30/24 13:15 Pregabalin 150 Mg Capsule PO 150 mg TID LORI Administration Vitamin D 50 mcg 10/30/24 13:00 10/30/24 13:15 Cholecalciferol (Vitamin D3) 25 Mcg Tablet PO 50 mcg DAILY LORI Administration Medical Decision Making Medical Decision Making MDM Narrative: 63-year-old female with a past medical history bipolar, PTSD, alcohol use disorder, benzo abuse, discharged from our inpatient psych unit yesterday, presenting back to the ED via EMS stating she feels she was discharged prematurely. on exam vital signs stable, NAD, nontoxic appearing, physical exam as noted above. Concern for ETOH intoxication/ abuse vs substance abuse vs depression. Rule out organic causes and metabolic abnormalities Plan: Labs, tox screen, CARE team eval Please refer to course for remaining clinical decision making, interpretation of labs/imaging results, and discussions with consultants and/or family members. Differential Diagnosis Differential Diagnoses: The differential diagnosis associated with the presentation includes As above Admission/Observation Consideration of admission/observation: Escalation of care including admission/observation considered Consult Healthcare Provider Management of the patient was discussed with: Behavioral Health Provider Lab Data MDM Lab Attestation statement: I reviewed the patient's lab results. 10/30/24 08:18 10/30/24 08:18 Labs: Lab Results 10/30/24 Range/Units 08:18 WBC 5.6 (4.8-10.8) X10*3/uL RBC 3.62 L (4.20-5.50) X10*6/uL Hgb 12.0 (12.0-16.0) g/dl Hct 35.5 L (37.0-47.0) % MCV 98.1 H (80.0-98.0) fL MCH 33.1 H (27.0-33.0) pg MCHC 33.8 (31.0-35.0) g/dl RDW 12.9 (11.0-16.0) % Plt Count 341 (160-400) X10*3/uL MPV 10.0 (9.4-12.3) fL Immature Gran % (Auto) 0.2 (0.0-0.4) % Neut % (Auto) 57.3 (45-73) % Lymph % (Auto) 26.3 (20-40) % Vermilion % (Auto) 12.1 H (2-11) % Eos % (Auto) 3.6 (0-4) % Baso % (Auto) 0.5 (0-2) % Lymph # (Auto) 1.5 (1.2-4.9) X10*3/uL [place] # (Auto) 0.7 (0.1-1.2) X10*3/uL Eos # (Auto) 0.2 (0.0-0.4) X10*3/uL Baso # (Auto) 0.0 (0.0-0.2) X10*3/uL Abs Immat Gran (auto) 0.01 (0.00-0.03) X10*3/uL Absolute Neuts (auto) 3.2 (2.0-8.3) x10*3/uL Absolute Nucleated RBC 0.000 (0.0-0.012) X10*3/uL Nucleated RBC % (auto) 0.0 (0.0-0.2) /100WBC Sodium 142 (135-145) mmol/L Potassium 4.1 (3.3-5.1) mmol/L Chloride 104 (96-108) mmol/L Carbon Dioxide 28 (22-29) mmol/L Anion Gap 14 (12-20) BUN 13 (9-16) mg/dL Creatinine 0.67 (0.5-1.4) mg/dL Estim Creat Clear Calc 63.3 Estimated GFR > 60 Random Glucose 137 H (60-115) mg/dL Calcium 8.9 (8.4-10.2) mg/dL Total Bilirubin 0.2 (0.0-1.0) mg/dL AST 22 (5-31) U/L ALT 14 (0-31) U/L Alkaline Phosphatase 111 (39-117) U/L Total Protein 6.6 (6.5-8.0) g/dL Albumin 3.7 (3.5-5.0) g/dL Valproic Acid < 12.5 L (50.0-100.0) mcg/mL Boomer 0.16 L (0.60-1.20) mmol/L Ethyl Alcohol < 10 mg/dL Independent Historian Clinical information obtained from an independent historian. History obtained from or confirmed by: EMS External Record Review External record reviewed: Inpatient record, Office record, Outpatient record, Prior outpatient labs, Prior outpatient radiology, Primary care record and Outside ED record Tests considered The following testing was considered but not selected: As above Prescription Management I considered prescription management with: Other Chronic Conditions Patient?s care impacted by: Other Social Determinants Patient?s care significantly limited by Social Determinants of Health including: Inadequate housing, Problems related to primary support group and Other Social Determinant of Health Discharge Plan Discharge Clinical Impression: Depressed Patient Disposition: Still a Patient Interventions: [place]-Suicide Risk Severity Scale Last Done: 10/30/24 07:44
[2024-10-30 08:50] LABS: MANUAL DIFF FLAG NO
[2024-10-30 08:53] LABS: Basophils Percent Auto 0.5 % (0-2); Eosinophils Absolute Auto 0.2 X10*3/uL (0.0-0.4); Eosinophils Percent Auto 3.6 % (0-4); Hematocrit 35.5 % (37.0-47.0); Imm Gran Abs Auto 0.01 X10*3/uL (0.00-0.03); Imm Gran Pct Auto 0.2 % (0.0-0.4); Lymphocytes Absolute Auto 1.5 X10*3/uL (1.2-4.9); Lymphocytes Percent Auto 26.3 % (20-40); Mean Corpuscular HGB Conc 33.8 g/dl (31.0-35.0); Mean Corpuscular Hemoglobin 33.1 pg (27.0-33.0); Mean Corpuscular Volume 98.1 fL (80.0-98.0); Monocytes Absolute Auto 0.7 X10*3/uL (0.1-1.2); Monocytes Percent Auto 12.1 % (2-11); Neutrophils Absolute Auto 3.2 x10*3/uL (2.0-8.3); Neutrophils Percent Auto 57.3 % (45-73); Platelet Count 341 X10*3/uL (160-400); Red Blood Count 3.62 X10*6/uL (4.20-5.50); Red Cell Distribution Width 12.9 % (11.0-16.0); White Blood Count 5.6 X10*3/uL (4.8-10.8)
[2024-10-30 08:58] LABS: Lithium 0.16 mmol/L (0.60-1.20)
[2024-10-30 09:03] LABS: Valproate < 12.5 mcg/mL (50.0-100.0)
[2024-10-30 09:06] LABS: Alanine Aminotransferase 14 U/L (0-31); Albumin Level 3.7 g/dL (3.5-5.0); Alkaline Phosphatase 111 U/L (39-117); Anion Gap 14 (12-20); Aspartate Amino Transferase 22 U/L (5-31); Bilirubin Total 0.2 mg/dL (0.0-1.0); Blood Urea Nitrogen 13 mg/dL (9-16); Calcium 8.9 mg/dL (8.4-10.2); Carbon Dioxide 28 mmol/L (22-29); Chloride 104 mmol/L (96-108); Creatinine Clr Calc Pharmacy 63.3; Estimated Glomerular Filt Rate > 60; Ethanol < 10 mg/dL; Glucose Random 137 mg/dL (60-115); Potassium 4.1 mmol/L (3.3-5.1); Sodium 142 mmol/L (135-145); Total Protein 6.6 g/dL (6.5-8.0)
--- NOTE | 2024-10-30 10:52 | PC.NURSE ---
Patient met with CARE team, pt became upset and is now endorsing suicidal ideation. Patient reports You all are discharging me and I am suicidal, I need to go upstairs
--- NOTE | 2024-10-30 11:00 | PC.NURSE ---
Patient pleading with staff, stating I came here to go back upstairs, call the nurses upstairs, I need to go there
--- NOTE | 2024-10-30 11:49 | PC.NURSE ---
Patient remains tearful despite being told that she will be going inpatient I didn't expect them to discharge me when I asked yesterday, I don't think it is fair that they let me go when I asked them, they could have told me no, you have to stay . Patient then became angry that she has not gotten her am medications despite reporting to the RN that she took them already. She reported to this RN I never said that, I havent taken any of my medications today and now its the middle of the day and the schedule is messed up . Pt then proceeded to get on the phone and call people reporting that we are not able to take care of her. M Med rec completed, provider ELISE Christianson aware
--- NOTE | 2024-10-30 12:48 | PC.NURSE ---
This RN jagjit texted ELISE Christianson a second time to request home medications as patient is becoming upset that she has not received them. All you people are doing is sitting at the desk, not getting me my medications . This RN explained to patient that we are waiting for the provider to order the medications so they can be administered. Patient states I don't know what is taking them so long, I don't care about other people here, I am a psychiatric patient, I need my medications . PA aware
--- NOTE | 2024-10-30 13:07 | PC.NURSE ---
Pt reporting to this RN I talked to my , he said I can have an Ativan . this RN educated patient that if she is feeling anxious she can let this RN know and the provider will be notified, she then reported back to this RN Yes, I know but my says its okay so I think I should get one now
[2024-10-30] MEDS: Pregabalin 150 MG CAPSULE PO (13:15)
[2024-10-30] MEDS: Lithium Carbonate 300 MG CAPSULE 150 MG PO (13:15)
[2024-10-30] MEDS: Cholecalciferol (Vitamin D3) 25 MCG TABLET 50 MCG PO (13:15)
[2024-10-30] MEDS: modafiniL 100 MG TABLET 200 MG PO (13:15)
[2024-10-30] MEDS: Lidocaine 4 % Patch ADH..PATCH 1 PATCH TRANSDERMA (13:16)
[2024-10-30] MEDS: guanFACINE HCl ER 1 MG TAB.ER.24H PO ×3 (14:57→23:00)
--- NOTE | 2024-10-30 15:08 | PHA.MEDREC ---
Addendum entered by Kiki Tafoya RPh 10/30/24 15:50: [facility] reviewed Original Note: Pharmacy Consult ? Medication Reconciliation Pharmacy has reviewed the medication reconciliation done by nursing. Patient was just discharged from [facility] 10/29/24 utilized discharge packet to confirm med list.
--- NOTE | 2024-10-30 15:55 | MHC.CARE ---
Call to [facility], spoke with Adamaris Solorzano who took clinical information about patient. Supervisor Plasma will be Rosa Allan [phone] ext [phone], will reach out to UR on the unit.
[2024-10-30 15:57] VITALS: BMI 19.9
[2024-10-30 16:04] VITALS: BP 132/76; PULSE 81; RESP 20; TEMP 36.6; O2SAT 95
--- NOTE | 2024-10-30 16:26 | PM.EVENT ---
Documented by User: Padmini Quintanilla APRN 10/30/24 16:28 Event Note Date of Service: 10/30/24 Event Note: Message received from pt's , Yaron at 1150am. Pt is in the ER for readmission. He reports she had a hard night, did not adjust well to discharge and went by ambulance to ER this a.m. Mr. Beebe believes she was discharged too early and she has not adjusted to the medication changes and is needing a longer in pt stay. Time Spent With Patient Time: Total time managing care of this patient today ____ minutes. Documented by User: Jr Cuenca MD 10/31/24 22:24 Event Note Date of Service: 10/31/24
--- NOTE | 2024-10-30 16:28 | PM.EVENT ---
Documented by User: Padmini Quintanilla APRN 10/30/24 16:31 Event Note Date of Service: 10/30/24 Event Note: Pt admitted to M[facility]. Fearful of signing any paperwork, wanting to sign her in. Discussed that this is not possible. Pt reluctantly signed a CV, however, was labile and not fully understanding of this, so it was not accepted and 12B was signed. Will process with pt on 10/31/24. Pt calling family to discuss with them. Time Spent With Patient Time: Total time managing care of this patient today ____ minutes. Documented by User: Jr Cuenca MD 10/31/24 22:23 Event Note Date of Service: 10/31/24
--- NOTE | 2024-10-30 17:28 | MHC.CARE ---
Updated authorization information: Rosa Allan authorized two days initially review tomorrow 10/31/24 with Aquilino Dejesus at [phone] x [phone] [id number]
--- NOTE | 2024-10-30 19:02 | PC.ADMIT ---
Jaja is a 63 year old female well known to and was recently discharged on 10/29. She came to the ED via ambulance that same night reporting she felt her DC was premature and that she felt she wasn't ready despite saying she wanted to leave. She has an extensive history of inpatient stays here at [facility] and is here with diagnosis of PTSD and Bipolar disorder. She (and her ) feel her medications need to be adjusted and he expressed he wished he had a meeting with a provider prior to her DC yesterday. She arrived on this afternoon, was tearful, and perseverative stating the lady down there wearing black and white told me I didn't meet criteria for IPLOC. She didn't even assess me, I was asleep. She continued to bring this up several times throughout the admission process. Skin and safety check unremarkable. She agreed to sign the MARIO ALBERTO and valuables form. Caroline offered her a CV and she reluctantly signed it citing? she wanted to have?her present?when she signed it. Provider rejected it and she is a 12B since she doesn't seem to understand what she was signing. Jaja initially presented as drowsy, tense, irritable, demanding, and accusatory?of staff- The doctor knows I can't take Atarax, and that's?the only thing they offered? in the ED to calm me down. ? slurring some of her words at times, and? slowed in responses. During assessment she admits to vaping a couple tokes?of? marijuana last night when she was home. Urine tox collected this evening as she couldn't leave specimen in the ED. A fellow counselor reports overhearing that she used cocaine last night after getting into an argument with her . She has? been placed on q 15 min safety checks and when given a menu for dinner selection asked TW to fill it out for her. Her came in this evening to visit and it was explained to him that the provider has signed Jaja in on a 12 B. Placed on 15 min safety checks and Caroline will follow up with pt and her tomorrow.?
[2024-10-30 19:16] LABS: Amphetamine Screen Urine Not Detected (Not Detect); Barbiturates, Urine Not Detected (Not Detect); Benzodiazepines Screen Urine Not Detected (Not Detect); Buprenorphine Scr Not Detected (Not Detect); Cannabinoid Screen Urine POSITIVE (Not Detect); Cocaine Screen Urine Not Detected (Not Detect); Fentanyl, urine Not Detected (Not Detect); Methadone Screen, Urine Not Detected (Not Detect); Opiate Screen Urine Not Detected (Not Detect); Oxycodone Screen Urine Not Detected (Not Detect); Phencyclidine Screen Urine Not Detected (Not Detect)
[2024-10-30 20:00] VITALS: BP 135/68; PULSE 71; TEMP 36.6; O2SAT 93
[2024-10-30] MEDS: Ibuprofen 400 MG TABLET PO (21:26)
[2024-10-30] MEDS: Pramipexole Di-HCL 0.25 MG TABLET 0.5 MG PO (23:00)
[2024-10-30] MEDS: Divalproex Sodium ER 500 MG TAB.ER.24H PO (23:01)
[2024-10-30] MEDS: Pregabalin 100 MG CAPSULE PO (23:01)
[2024-10-30] MEDS: Zolpidem Tartrate 5 MG TABLET PO (23:01)
[2024-10-30] MEDS: clonazePAM 1 MG TABLET PO (23:01)
[2024-10-31] MEDS: Ibuprofen 400 MG TABLET PO (03:58)
[2024-10-31] MEDS: Levothyroxine Sodium 50 MCG TABLET PO (05:48)
[2024-10-31 08:12] VITALS: BP 107/56; PULSE 62; TEMP 36.4; O2SAT 94
[2024-10-31] MEDS: modafiniL 100 MG TABLET 200 MG PO (08:46)
[2024-10-31] MEDS: Cholecalciferol (Vitamin D3) 25 MCG TABLET 50 MCG PO (08:47)
[2024-10-31] MEDS: Lithium Carbonate 300 MG CAPSULE 150 MG PO (08:48)
[2024-10-31] MEDS: Pramipexole Di-HCL 0.25 MG TABLET 0.5 MG PO ×3 (08:49→22:08)
[2024-10-31] MEDS: guanFACINE HCl ER 1 MG TAB.ER.24H PO ×4 (08:50→22:08)
[2024-10-31] MEDS: Lidocaine 4 % Patch ADH..PATCH 1 PATCH TRANSDERMA (08:50)
[2024-10-31] MEDS: Pregabalin 100 MG CAPSULE PO ×3 (08:50→22:08)
[2024-10-31 09:03] LABS: Appearance Urine Clear; Color Urine Yellow; Glucose Urine UA Negative (Negative); Leukocyte Esterase Urine Small (1+) (Negative); Nitrite Urine Negative (Negative); PH 7.5 (5.0-9.0); Specific Gravity - Urine 1.015 (1.005-1.025); UMIC TRIGGER UACC YES; Urine Blood Negative (Negative); Urine Ketones Negative (Negative); Urine Protein Negative (Neg-Trace)
[2024-10-31 09:10] LABS: Bacteria Urine 1+ (None Seen); Hyaline Casts Urine 0-2 /LPF (0-2); RBC Urine 0-2 /HPF (0-2); Squamous Epithelial Cell Urine 0-2 /HPF (0-2); UACC Culture Trigger YES; WBC Urine 0-5 /HPF (0-5)
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
[2024-10-31 20:33] VITALS: BP 129/62; PULSE 72; RESP 18; TEMP 36.8; O2SAT 95
[2024-10-31] MEDS: Zolpidem Tartrate 5 MG TABLET 10 MG PO (22:07)
[2024-10-31] MEDS: clonazePAM 1 MG TABLET 2 MG PO (22:07)
[2024-10-31] MEDS: Divalproex Sodium ER 500 MG TAB.ER.24H PO (22:08)
[2024-11-01] MEDS: Levothyroxine Sodium 50 MCG TABLET PO (05:49)
[2024-11-01 07:53] VITALS: BP 121/70; PULSE 63; RESP 16; TEMP 36.4; O2SAT 99
[2024-11-01] MEDS: guanFACINE HCl ER 1 MG TAB.ER.24H PO ×4 (08:30→20:26)
[2024-11-01] MEDS: Pramipexole Di-HCL 0.25 MG TABLET 0.5 MG PO ×3 (08:30→20:25)
[2024-11-01] MEDS: Lidocaine 4 % Patch ADH..PATCH 1 PATCH TRANSDERMA (08:30)
[2024-11-01] MEDS: Pregabalin 100 MG CAPSULE PO ×3 (08:30→20:25)
[2024-11-01] MEDS: modafiniL 100 MG TABLET 200 MG PO (08:31)
[2024-11-01] MEDS: Cholecalciferol (Vitamin D3) 25 MCG TABLET 50 MCG PO (08:31)
[2024-11-01] MEDS: Lithium Carbonate 300 MG TABLET 150 MG PO (08:52)
--- NOTE | 2024-11-01 12:20 | P.PNPSI_ITS ---
Subjective Subjective Date of Service: 11/01/24 Reason For Visit: PTSD, bipolar disorder Subjective Notes: Section 12B Healthcare Proxy: No Guardianship: No Medical Problems Affecting Mental Status: No Interim History: Met with pt and . Pt will most likely sign a CV on 11/02. Expressed distress that illness is making her miss her life. Son will run in [employer] and she will miss it Reviewed meds with sx periods of sedation and agitation. Review of possible changes. Will continue to discuss. Medication Compliance: Yes Side effects from medications: No Attending Groups: Intermittent Review of Systems Acute medical concerns: No Review of Systems Review of Systems Denies Mental Status Exam Mental Status Exam Patient Appearance: Appropriate Patient Orientation: Person, Place, Time and Situation Level of Consciousness: Alert Patient Behavior: Appropriate, Talkative, Cooperative, Anxious, Distractible and Crying Mood Description: Depressed and Labile Affect Description: Labile and Flat Patient Cognition Impaired: No Ability to Follow Directions: Good Speech Pattern: Spontaneous Speech Memory Description: Intact and Episodic Impaired Hallucinations: None Delusions: Not Present Perceptual Disturbances: Depersonalization Thought Process: Rumination Thought Content: positive for Perseveration and positive for Suicidal Ideation Depressive Symptoms: Thoughts of /Suicide Abnormal Motor Activity Signs and Symptoms: Agitation Judgement: Fair Diagnostics Vital Signs (24Hr): Vital Signs - 24 hr 10/31/24 20:33 11/01/24 07:53 Temperature 98.3 F 97.5 F Pulse Rate 72 63 Respiratory Rate 18 16 Blood Pressure 129/62 121/70 Pulse Oximetry 95 99 Oxygen Delivery Method Room Air Room Air BMI result Body Mass Index 19.9 Labs 10/30/24 08:18 10/30/24 08:18 Labs: Laboratory Results - last 48 hr 10/30/24 10/30/24 17:38 18:53 Urine Color Yellow Urine Appearance Clear Urine pH 7.5 Ur Specific [place] 1.015 Urine Protein Negative Urine Glucose (UA) Negative Urine Ketones Negative Urine Blood Negative Urine Nitrite Negative Ur Leukocyte Esterase Small (1+) H Urine RBC 0-2 Urine WBC 0-5 Ur Squamous Epith Cells 0-2 Urine Bacteria 1+ Hyaline Casts 0-2 Urine Opiates Screen Not Detected Ur Buprenorphine Scrn Not Detected Ur Oxycodone Screen Not Detected Urine Methadone Screen Not Detected Urine Fentanyl Screen Not Detected Ur Barbiturates Screen Not Detected Ur Phencyclidine Scrn Not Detected Ur Amphetamines Screen Not Detected U Benzodiazepines Scrn Not Detected Urine Cocaine Screen Not Detected U Marijuana (THC) Screen POSITIVE H Medications Medications Current Medications Acetaminophen (Acetaminophen 325 Mg Tablet) 650 mg PO Q6H PRN PRN Reason: Headache/Pain, Scale 1-10 Al Hydroxide/Mg Hydroxide (Magnesium Hydrox/Alum Hydrox 30 Ml Oral.Susp) 30 ml PO Q6H PRN PRN Reason: Heartburn/Nausea Albuterol Sulfate (Albuterol Sulfate 90 Mcg 8 Gm Inhaler) 2 puff INHALE Q4H PRN PRN Reason: wheezing Clonazepam (Clonazepam 1 Mg Tablet) 2 mg PO BEDTIME [facility] Last Admin: 10/31/24 22:07 Dose: 2 mg Divalproex Sodium (Divalproex Sodium Er 500 Mg Tab.Er.24h) 500 mg PO BEDTIME [facility] Last Admin: 10/31/24 22:08 Dose: 500 mg Docusate Sodium (Docusate Sodium 100 Mg Capsule) 100 mg PO BID PRN PRN Reason: constipation Guanfacine HCl (Guanfacine Hcl Er 1 Mg Tab.Er.24h) 1 mg PO QID [facility] Last Admin: 11/01/24 08:30 Dose: 1 mg Hydroxyzine HCl (Hydroxyzine Hcl 25 Mg Tablet) 25 mg PO Q6H PRN PRN Reason: mild anxiety Ibuprofen (Ibuprofen 400 Mg Tablet) 400 mg PO Q6H PRN PRN Reason: muscle pain Last Admin: 10/31/24 03:58 Dose: 400 mg Levothyroxine Sodium (Levothyroxine Sodium 50 Mcg Tablet) 50 mcg PO DAILY@0600 [facility] Last Admin: 11/01/24 05:49 Dose: 50 mcg Lidocaine (Lidocaine 4 % Patch Adh..Patch) 1 patch TRANSDERMA DAILY [facility]; Protocol Last Admin: 11/01/24 08:30 Dose: 1 patch [place] Carbonate ([place] Carbonate 300 Mg Tablet) 150 mg PO DAILY [facility] Last Admin: 11/01/24 08:52 Dose: 150 mg Magnesium Hydroxide (Milk Of Magnesia 30 Ml Oral.Susp) 30 ml PO DAILY PRN PRN Reason: Constipation Modafinil (Modafinil 100 Mg Tablet) 200 mg PO DAILY [facility] Last Admin: 11/01/24 08:31 Dose: 200 mg Nicotine Polacrilex (Nicotine Polacrilex 2 Mg Gum) 4 mg [place] Q2H PRN PRN Reason: Nicotine Cravings Pramipexole Dihydrochloride (Pramipexole Di-Hcl 0.25 Mg Tablet) 0.5 mg PO TID [facility] Last Admin: 11/01/24 08:30 Dose: 0.5 mg Pregabalin (Pregabalin 100 Mg Capsule) 100 mg PO TID [facility] Last Admin: 11/01/24 08:30 Dose: 100 mg Sodium Chloride (Sodium Chloride 0.65 % Nasal 44 Ml Sprbtl) 1 spray NOSTRIL-B Q1H PRN PRN Reason: Dryness Vitamin D (Cholecalciferol (Vitamin D3) 25 Mcg Tablet) 50 mcg PO DAILY [facility] Last Admin: 11/01/24 08:31 Dose: 50 mcg Zolpidem Tartrate (Zolpidem Tartrate 5 Mg Tablet) 10 mg PO BEDTIME PRN PRN Reason: Insomnia Last Admin: 10/31/24 22:07 Dose: 10 mg Allergies Allergies Allergy/AdvReac Type Severity Reaction Status Date / Time olanzapine [From ZYPREXA] AdvReac Intermediate RLS Verified 10/30/24 07:41 symptoms clonidine AdvReac RLS Verified 10/30/24 07:41 diphenhydramine AdvReac RLS Verified 10/30/24 07:41 [From Benadryl] hydroxyzine AdvReac RLS Verified 10/30/24 07:41 melatonin AdvReac RLS Verified 10/30/24 07:41 atypical antipsychotics AdvReac Severe This class Uncoded 10/30/24 07:41 appears to potentiate RLS/Akathesia Assessment & Plan Assessment & Plan (1) Bipolar II disorder: Status: Acute Code(s): F31.81 - Bipolar II disorder (2) Post-traumatic stress disorder, unspecified: Status: Acute Code(s): F43.10 - Post-traumatic stress disorder, unspecified (3) Cannabis use disorder: Status: Acute Code(s): F12.90 - Cannabis use, unspecified, uncomplicated Plan Admit, CV, 15 minute checks Continue current med regime Collateral contact for ongoing treatment planning post discharge. Encouraged full milieu. 11/01- No changes today. Reason for continued inpatient stay Substantial Risk for: rapid decompensation Time Spent With Patient Time: Total time managing care of this patient today ____ minutes.
[2024-11-01 19:48] VITALS: BP 117/65; PULSE 67; TEMP 36.6; O2SAT 96
[2024-11-01] MEDS: clonazePAM 1 MG TABLET 2 MG PO (20:25)
[2024-11-01] MEDS: Zolpidem Tartrate 5 MG TABLET 10 MG PO (20:26)
[2024-11-01] MEDS: Divalproex Sodium ER 500 MG TAB.ER.24H PO (20:26)
[2024-11-02] MEDS: Levothyroxine Sodium 50 MCG TABLET PO (05:58)
[2024-11-02 08:06] VITALS: BP 124/65; PULSE 60; RESP 16; TEMP 36.6; O2SAT 95
[2024-11-02] MEDS: Cholecalciferol (Vitamin D3) 25 MCG TABLET 50 MCG PO (08:28)
[2024-11-02] MEDS: Pramipexole Di-HCL 0.25 MG TABLET 0.5 MG PO ×3 (08:28→20:14)
[2024-11-02] MEDS: guanFACINE HCl ER 1 MG TAB.ER.24H PO ×4 (08:29→20:14)
[2024-11-02] MEDS: Pregabalin 100 MG CAPSULE PO ×3 (08:29→20:14)
[2024-11-02] MEDS: Lithium Carbonate 300 MG TABLET 150 MG PO (08:29)
[2024-11-02] MEDS: modafiniL 100 MG TABLET 200 MG PO (08:29)
[2024-11-02] MEDS: nitrofurantoin macrocrystaL 50 MG CAPSULE 100 MG PO ×3 (13:07→22:31)
--- NOTE | 2024-11-02 16:24 | HO.PSYCHPN ---
Subjective Subjective Date of Service: 11/02/24 Reason For Visit: PTSD, bipolar disorder Subjective Notes: Conditional Voluntary Healthcare Proxy: No Guardianship: No Medical Problems Affecting Mental Status: No Interim History: Signed CV. Review of aftercare options with Consuelo Barksdale LCSW. will search for local options for her as well. Pt is on a wait list, however believes [place] is too far UTI on culture. Nitrofurantoin initiated Continues with lability Reports she slept last night. Afternoon tiredness discussed. Medication Compliance: Yes Side effects from medications: No Attending Groups: Intermittent Review of Systems Acute medical concerns: No Review of Systems Review of Systems denies Mental Status Exam Mental Status Exam Patient Appearance: Appropriate Patient Orientation: Person, Place, Time and Situation Level of Consciousness: Alert Patient Behavior: Appropriate, Talkative, Cooperative, Anxious, Distractible and Crying Mood Description: Depressed and Labile Affect Description: Labile and Flat Patient Cognition Impaired: No Ability to Follow Directions: Good Speech Pattern: Spontaneous Speech Memory Description: Intact and Episodic Impaired Hallucinations: None Delusions: Not Present Perceptual Disturbances: Depersonalization Thought Process: Rumination Thought Content: positive for Perseveration and positive for Suicidal Ideation Depressive Symptoms: Thoughts of /Suicide Abnormal Motor Activity Signs and Symptoms: Agitation Judgement: Fair Diagnostics Vital Signs (24Hr): Vital Signs - 24 hr 11/01/24 19:48 11/02/24 08:06 Temperature 97.9 F 97.8 F Pulse Rate 67 60 Respiratory Rate 16 Blood Pressure 117/65 124/65 Pulse Oximetry 96 95 Oxygen Delivery Method Room Air Room Air BMI result Body Mass Index 19.9 Labs 10/30/24 08:18 10/30/24 08:18 Medications Medications Current Medications Acetaminophen (Acetaminophen 325 Mg Tablet) 650 mg PO Q6H PRN PRN Reason: Headache/Pain, Scale 1-10 Al Hydroxide/Mg Hydroxide (Magnesium Hydrox/Alum Hydrox 30 Ml Oral.Susp) 30 ml PO Q6H PRN PRN Reason: Heartburn/Nausea Albuterol Sulfate (Albuterol Sulfate 90 Mcg 8 Gm Inhaler) 2 puff INHALE Q4H PRN PRN Reason: wheezing Clonazepam (Clonazepam 1 Mg Tablet) 2 mg PO BEDTIME [facility] Last Admin: 11/01/24 20:25 Dose: 2 mg Divalproex Sodium (Divalproex Sodium Er 500 Mg Tab.Er.24h) 500 mg PO BEDTIME [facility] Last Admin: 11/01/24 20:26 Dose: 500 mg Divalproex Sodium (Divalproex Sodium Sprinkles 125 Mg Nigel.) 125 mg PO DAILY [facility] Docusate Sodium (Docusate Sodium 100 Mg Capsule) 100 mg PO BID PRN PRN Reason: constipation Guanfacine HCl (Guanfacine Hcl Er 1 Mg Tab.Er.24h) 1 mg PO QID [facility] Last Admin: 11/02/24 13:08 Dose: 1 mg Hydroxyzine HCl (Hydroxyzine Hcl 25 Mg Tablet) 25 mg PO Q6H PRN PRN Reason: mild anxiety Ibuprofen (Ibuprofen 400 Mg Tablet) 400 mg PO Q6H PRN PRN Reason: muscle pain Last Admin: 10/31/24 03:58 Dose: 400 mg Levothyroxine Sodium (Levothyroxine Sodium 50 Mcg Tablet) 50 mcg PO DAILY@0600 [facility] Last Admin: 11/02/24 05:58 Dose: 50 mcg Lidocaine (Lidocaine 4 % Patch Adh..Patch) 1 patch TRANSDERMA DAILY [facility]; Protocol Last Admin: 11/02/24 08:38 Dose: Not Given [place] Carbonate ([place] Carbonate 300 Mg Tablet) 150 mg PO DAILY [facility] Last Admin: 11/02/24 08:29 Dose: 150 mg Magnesium Hydroxide (Milk Of Magnesia 30 Ml Oral.Susp) 30 ml PO DAILY PRN PRN Reason: Constipation Modafinil (Modafinil 100 Mg Tablet) 200 mg PO DAILY [facility] Last Admin: 11/02/24 08:29 Dose: 200 mg Nicotine Polacrilex (Nicotine Polacrilex 2 Mg Gum) 4 mg [place] Q2H PRN PRN Reason: Nicotine Cravings Nitrofurantoin Macrocrystals (Nitrofurantoin Macrocrystal 50 Mg Capsule) 100 mg PO Q6H [facility] Stop: 11/08/24 09:00 Last Admin: 11/02/24 13:07 Dose: 100 mg Pramipexole Dihydrochloride (Pramipexole Di-Hcl 0.25 Mg Tablet) 0.5 mg PO TID [facility] Last Admin: 11/02/24 08:28 Dose: 0.5 mg Pregabalin (Pregabalin 100 Mg Capsule) 100 mg PO TID [facility] Last Admin: 11/02/24 08:29 Dose: 100 mg Sodium Chloride (Sodium Chloride 0.65 % Nasal 44 Ml Sprbtl) 1 spray NOSTRIL-B Q1H PRN PRN Reason: Dryness Vitamin D (Cholecalciferol (Vitamin D3) 25 Mcg Tablet) 50 mcg PO DAILY [facility] Last Admin: 11/02/24 08:28 Dose: 50 mcg Zolpidem Tartrate (Zolpidem Tartrate 5 Mg Tablet) 10 mg PO BEDTIME PRN PRN Reason: Insomnia Last Admin: 11/01/24 20:26 Dose: 10 mg Allergies Allergies Allergy/AdvReac Type Severity Reaction Status Date / Time olanzapine [From ZYPREXA] AdvReac Intermediate RLS Verified 10/30/24 07:41 symptoms clonidine AdvReac RLS Verified 10/30/24 07:41 diphenhydramine AdvReac RLS Verified 10/30/24 07:41 [From Benadryl] hydroxyzine AdvReac RLS Verified 10/30/24 07:41 melatonin AdvReac RLS Verified 10/30/24 07:41 atypical antipsychotics AdvReac Severe This class Uncoded 10/30/24 07:41 appears to potentiate RLS/Akathesia Assessment & Plan Assessment & Plan (1) Bipolar II disorder: Status: Acute Code(s): F31.81 - Bipolar II disorder (2) Post-traumatic stress disorder, unspecified: Status: Acute Code(s): F43.10 - Post-traumatic stress disorder, unspecified (3) Cannabis use disorder: Status: Acute Code(s): F12.90 - Cannabis use, unspecified, uncomplicated Plan Admit, CV, 15 minute checks. Pt then changed her mind and was placed on a 12B. Continue current med regime Collateral contact for ongoing treatment planning post discharge. Encouraged full milieu. 11/02- Increase Depakote, add a.m. dose Encourage structure and limits-pt angers easily and needs solid redirective support to turn around this sx. [place] re-enforcement. Reason for continued inpatient stay Substantial Risk for: rapid decompensation Time Spent With Patient Time: Total time managing care of this patient today ____ minutes.
--- NOTE | 2024-11-02 18:15 | PC.NURSE ---
pt reports severe anxiety regarding problem with my roommate and and requested to take her klonopin early. Provider CAW contacted via tget text and approved 1mg klonopin to be given early. Medication administered and effectiveness pending
[2024-11-02] MEDS: clonazePAM 1 MG TABLET 2 MG PO ×2 (18:19→20:25)
[2024-11-02 19:56] VITALS: BP 114/57; PULSE 71; TEMP 36.5; O2SAT 95
[2024-11-02] MEDS: Divalproex Sodium ER 500 MG TAB.ER.24H PO (20:14)
[2024-11-02] MEDS: Zolpidem Tartrate 5 MG TABLET 10 MG PO (20:14)
[2024-11-02] MEDS: hydrOXYzine HCL 25 MG TABLET PO (20:14)
[2024-11-03] MEDS: nitrofurantoin macrocrystaL 50 MG CAPSULE 100 MG PO ×4 (05:46→23:22)
[2024-11-03] MEDS: Levothyroxine Sodium 50 MCG TABLET PO (06:06)
[2024-11-03 07:41] VITALS: BP 116/68; PULSE 64; RESP 16; TEMP 36.6; O2SAT 93
[2024-11-03] MEDS: guanFACINE HCl ER 1 MG TAB.ER.24H PO ×4 (08:28→21:52)
[2024-11-03] MEDS: Pregabalin 100 MG CAPSULE PO ×3 (08:29→21:52)
[2024-11-03] MEDS: Lithium Carbonate 300 MG TABLET 150 MG PO (08:29)
[2024-11-03] MEDS: modafiniL 100 MG TABLET 200 MG PO (08:29)
[2024-11-03] MEDS: Divalproex Sodium Sprinkles 125 MG CAP.DR.SPR PO (08:29)
[2024-11-03] MEDS: Cholecalciferol (Vitamin D3) 25 MCG TABLET 50 MCG PO (08:30)
[2024-11-03] MEDS: Pramipexole Di-HCL 0.25 MG TABLET 0.5 MG PO ×3 (08:30→21:52)
--- NOTE | 2024-11-03 09:47 | HO.PSYCHPN ---
Subjective Subjective Date of Service: 11/03/24 Reason For Visit: PTSD, bipolar disorder Interim History: met with patient; discussed with team; reviewed chart Patient reports that she is overall doing okay, a little tearful talking about her son and asks if she can be taken outside to watch him run the local road race; accepted that this is not possible. Patient shared about verbal altercation she had with a peer last night and feels that this peer has turned other patients against her and felt like staff was not helpful to her. She thinks this specific peer will sometimes purposely saying out loud to interfere with patient when she is having conversation with the staff Patient wanted to discuss clonazepam. She gets 2 mg scheduled at bedtime. She asked if this can be broken up so that she gets 1 mg at bedtime and 1 available as an extra p.r.n. to which promotion writer agreed. Mental Status Exam Mental Status Exam Patient Appearance: Appropriate Patient Orientation: Person, Place, Time and Situation Level of Consciousness: Alert Patient Behavior: Appropriate, Talkative, Cooperative, Anxious, Distractible and Crying Mood Description: Depressed (little better) Affect Description: Constricted Patient Cognition Impaired: No Ability to Follow Directions: Good Speech Pattern: Spontaneous Speech Memory Description: Intact and Episodic Impaired Hallucinations: None Delusions: Not Present Perceptual Disturbances: Depersonalization Thought Process: Rumination Thought Content: positive for Perseveration and positive for Suicidal Ideation (denies) Abnormal Motor Activity Signs and Symptoms: Agitation (intermittent) Judgement and Insight: impaired Diagnostics Vital Signs (24Hr): Vital Signs - 24 hr 11/02/24 19:56 11/03/24 07:41 Temperature 97.7 F 97.8 F Pulse Rate 71 64 Respiratory Rate 16 Blood Pressure 114/57 L 116/68 Pulse Oximetry 95 93 Oxygen Delivery Method Room Air Room Air BMI result Body Mass Index 19.9 Labs 10/30/24 08:18 10/30/24 08:18 Medications Medications Current Medications Acetaminophen (Acetaminophen 325 Mg Tablet) 650 mg PO Q6H PRN PRN Reason: Headache/Pain, Scale 1-10 Al Hydroxide/Mg Hydroxide (Magnesium Hydrox/Alum Hydrox 30 Ml Oral.Susp) 30 ml PO Q6H PRN PRN Reason: Heartburn/Nausea Albuterol Sulfate (Albuterol Sulfate 90 Mcg 8 Gm Inhaler) 2 puff INHALE Q4H PRN PRN Reason: wheezing Clonazepam (Clonazepam 1 Mg Tablet) 2 mg PO BEDTIME [facility] Last Admin: 11/02/24 20:25 Dose: 1 mg Divalproex Sodium (Divalproex Sodium Er 500 Mg Tab.Er.24h) 500 mg PO BEDTIME [facility] Last Admin: 11/02/24 20:14 Dose: 500 mg Divalproex Sodium (Divalproex Sodium Sprinkles 125 Mg Cap.Dr.Spr) 125 mg PO DAILY [facility] Last Admin: 11/03/24 08:29 Dose: 125 mg Docusate Sodium (Docusate Sodium 100 Mg Capsule) 100 mg PO BID PRN PRN Reason: constipation Guanfacine HCl (Guanfacine Hcl Er 1 Mg Tab.Er.24h) 1 mg PO QID [facility] Last Admin: 11/03/24 08:28 Dose: 1 mg Hydroxyzine HCl (Hydroxyzine Hcl 25 Mg Tablet) 25 mg PO Q6H PRN PRN Reason: mild anxiety Last Admin: 11/02/24 20:14 Dose: 25 mg Ibuprofen (Ibuprofen 400 Mg Tablet) 400 mg PO Q6H PRN PRN Reason: muscle pain Last Admin: 10/31/24 03:58 Dose: 400 mg Levothyroxine Sodium (Levothyroxine Sodium 50 Mcg Tablet) 50 mcg PO DAILY@0600 [facility] Last Admin: 11/03/24 06:06 Dose: 50 mcg Lidocaine (Lidocaine 4 % Patch Adh..Patch) 1 patch TRANSDERMA DAILY [facility]; Protocol Last Admin: 11/03/24 08:35 Dose: Not Given [place] Carbonate ([place] Carbonate 300 Mg Tablet) 150 mg PO DAILY [facility] Last Admin: 11/03/24 08:29 Dose: 150 mg Magnesium Hydroxide (Milk Of Magnesia 30 Ml Oral.Susp) 30 ml PO DAILY PRN PRN Reason: Constipation Modafinil (Modafinil 100 Mg Tablet) 200 mg PO DAILY [facility] Last Admin: 11/03/24 08:29 Dose: 200 mg Nicotine Polacrilex (Nicotine Polacrilex 2 Mg Gum) 4 mg BUCCAL Q2H PRN PRN Reason: Nicotine Cravings Nitrofurantoin Macrocrystals (Nitrofurantoin Macrocrystal 50 Mg Capsule) 100 mg PO Q6H [facility] Stop: 11/08/24 09:00 Last Admin: 11/03/24 05:46 Dose: 100 mg Pramipexole Dihydrochloride (Pramipexole Di-Hcl 0.25 Mg Tablet) 0.5 mg PO TID [facility] Last Admin: 11/03/24 08:30 Dose: 0.5 mg Pregabalin (Pregabalin 100 Mg Capsule) 100 mg PO TID [facility] Last Admin: 11/03/24 08:29 Dose: 100 mg Sodium Chloride (Sodium Chloride 0.65 % Nasal 44 Ml Sprbtl) 1 spray NOSTRIL-B Q1H PRN PRN Reason: Dryness Vitamin D (Cholecalciferol (Vitamin D3) 25 Mcg Tablet) 50 mcg PO DAILY [facility] Last Admin: 11/03/24 08:30 Dose: 50 mcg Zolpidem Tartrate (Zolpidem Tartrate 5 Mg Tablet) 10 mg PO BEDTIME PRN PRN Reason: Insomnia Last Admin: 11/02/24 20:14 Dose: 10 mg Allergies Allergies Allergy/AdvReac Type Severity Reaction Status Date / Time olanzapine [From ZYPREXA] AdvReac Intermediate RLS Verified 10/30/24 07:41 symptoms clonidine AdvReac RLS Verified 10/30/24 07:41 diphenhydramine AdvReac RLS Verified 10/30/24 07:41 [From Benadryl] hydroxyzine AdvReac RLS Verified 10/30/24 07:41 melatonin AdvReac RLS Verified 10/30/24 07:41 atypical antipsychotics AdvReac Severe This class Uncoded 10/30/24 07:41 appears to potentiate RLS/Akathesia Assessment & Plan Assessment & Plan (1) Bipolar II disorder: Status: Acute Code(s): F31.81 - Bipolar II disorder (2) Post-traumatic stress disorder, unspecified: Status: Acute Code(s): F43.10 - Post-traumatic stress disorder, unspecified (3) Cannabis use disorder: Status: Acute Code(s): F12.90 - Cannabis use, unspecified, uncomplicated Plan Admit, CV, 15 minute checks. Pt then changed her mind and was placed on a 12B. Continue current med regime Collateral contact for ongoing treatment planning post discharge. Encouraged full milieu. 11/02- Increase Depakote, add a.m. dose Encourage structure and limits-pt angers easily and needs solid redirective support to turn around this sx. [place] re-enforcement. 11/03 Patient reports that she is overall doing okay, a little tearful talking about her son and asks if she can be taken outside to watch him run the local road race; accepted that this is not possible. Patient shared about verbal altercation she had with a peer last night and feels that this peer has turned other patients against her and felt like staff was not helpful to her. She thinks this specific peer will sometimes purposely saying out loud to interfere with patient when she is having conversation with the staff -Patient wanted to discuss clonazepam. She gets 2 mg scheduled at bedtime. She asked if this can be broken up so that she gets 1 mg at bedtime and 1 available as an extra p.r.n. to which promotion writer agreed. Patient educated on: diagnosis, medication risk/benefits and therapeutic strategies Informed Consent: understands Reason for continued inpatient stay Substantial Risk for: rapid decompensation Time Spent With Patient Time: Total time managing care of this patient today ____ minutes.
[2024-11-03 19:50] VITALS: BP 95/55; PULSE 84; TEMP 36.9; O2SAT 95
[2024-11-03] MEDS: Acetaminophen 325 MG TABLET 650 MG PO (19:58)
[2024-11-03] MEDS: clonazePAM 1 MG TABLET PO ×2 (21:52→21:54)
[2024-11-03] MEDS: Zolpidem Tartrate 5 MG TABLET 10 MG PO (21:52)
[2024-11-03] MEDS: Divalproex Sodium ER 500 MG TAB.ER.24H PO (21:53)
[2024-11-04] MEDS: nitrofurantoin macrocrystaL 50 MG CAPSULE 100 MG PO ×4 (05:48→22:32)
[2024-11-04] MEDS: Levothyroxine Sodium 50 MCG TABLET PO (05:51)
[2024-11-04] MEDS: Cholecalciferol (Vitamin D3) 25 MCG TABLET 50 MCG PO (08:15)
[2024-11-04] MEDS: Lithium Carbonate 300 MG TABLET 150 MG PO (08:15)
[2024-11-04] MEDS: modafiniL 100 MG TABLET 200 MG PO (08:16)
[2024-11-04] MEDS: guanFACINE HCl ER 1 MG TAB.ER.24H PO ×4 (08:16→21:41)
[2024-11-04] MEDS: Pregabalin 100 MG CAPSULE PO ×3 (08:16→21:41)
[2024-11-04] MEDS: Divalproex Sodium Sprinkles 125 MG CAP.DR.SPR PO (08:16)
[2024-11-04] MEDS: Pramipexole Di-HCL 0.25 MG TABLET 0.5 MG PO ×3 (08:16→21:41)
[2024-11-04 08:58] VITALS: BP 113/58; PULSE 106; TEMP 36.6; O2SAT 94
--- NOTE | 2024-11-04 09:07 | HO.PSYCHPN ---
Subjective Subjective Date of Service: 11/04/24 Reason For Visit: PTSD, bipolar disorder Interim History: met with patient; discussed with team no change in presentation; still w/ urinary urgency and frequency Mental Status Exam Mental Status Exam Patient Appearance: Appropriate Patient Orientation: Person, Place, Time and Situation Level of Consciousness: Alert Patient Behavior: Appropriate, Talkative, Cooperative, Anxious, Distractible and Crying Mood Description: Depressed (little better) Affect Description: Constricted Patient Cognition Impaired: No Ability to Follow Directions: Good Speech Pattern: Spontaneous Speech Memory Description: Intact and Episodic Impaired Hallucinations: None Delusions: Not Present Perceptual Disturbances: Depersonalization Thought Process: Rumination Thought Content: positive for Perseveration and positive for Suicidal Ideation (denies) Abnormal Motor Activity Signs and Symptoms: Agitation (intermittent) Judgement and Insight: impaired Diagnostics Vital Signs (24Hr): Vital Signs - 24 hr 11/03/24 19:50 11/04/24 08:58 Temperature 98.4 F 97.9 F Pulse Rate 84 106 H Blood Pressure 95/55 L 113/58 L Pulse Oximetry 95 94 Oxygen Delivery Method Room Air Room Air BMI result Body Mass Index 19.9 Labs 10/30/24 08:18 10/30/24 08:18 Medications Medications Current Medications Acetaminophen (Acetaminophen 325 Mg Tablet) 650 mg PO Q6H PRN PRN Reason: Headache/Pain, Scale 1-10 Last Admin: 11/03/24 19:58 Dose: 650 mg Al Hydroxide/Mg Hydroxide (Magnesium Hydrox/Alum Hydrox 30 Ml Oral.Susp) 30 ml PO Q6H PRN PRN Reason: Heartburn/Nausea Albuterol Sulfate (Albuterol Sulfate 90 Mcg 8 Gm Inhaler) 2 puff INHALE Q4H PRN PRN Reason: wheezing Clonazepam (Clonazepam 1 Mg Tablet) 1 mg PO BEDTIME [facility] Last Admin: 11/03/24 21:52 Dose: 1 mg Clonazepam (Clonazepam 1 Mg Tablet) 1 mg PO DAILY PRN PRN Reason: severe anxiety Last Admin: 11/03/24 21:54 Dose: 1 mg Divalproex Sodium (Divalproex Sodium Er 500 Mg Tab.Er.24h) 500 mg PO BEDTIME [facility] Last Admin: 11/03/24 21:53 Dose: 500 mg Divalproex Sodium (Divalproex Sodium Sprinkles 125 Mg Cap.Dr.Spr) 125 mg PO DAILY [facility] Last Admin: 11/04/24 08:16 Dose: 125 mg Docusate Sodium (Docusate Sodium 100 Mg Capsule) 100 mg PO BID PRN PRN Reason: constipation Guanfacine HCl (Guanfacine Hcl Er 1 Mg Tab.Er.24h) 1 mg PO QID [facility] Last Admin: 11/04/24 08:16 Dose: 1 mg Hydroxyzine HCl (Hydroxyzine Hcl 25 Mg Tablet) 25 mg PO Q6H PRN PRN Reason: mild anxiety Last Admin: 11/02/24 20:14 Dose: 25 mg Ibuprofen (Ibuprofen 400 Mg Tablet) 400 mg PO Q6H PRN PRN Reason: muscle pain Last Admin: 10/31/24 03:58 Dose: 400 mg Levothyroxine Sodium (Levothyroxine Sodium 50 Mcg Tablet) 50 mcg PO DAILY@0600 [facility] Last Admin: 11/04/24 05:51 Dose: 50 mcg Lidocaine (Lidocaine 4 % Patch Adh..Patch) 1 patch TRANSDERMA DAILY [facility]; Protocol Last Admin: 11/03/24 08:35 Dose: Not Given [place] Carbonate ([place] Carbonate 300 Mg Tablet) 150 mg PO DAILY [facility] Last Admin: 11/04/24 08:15 Dose: 150 mg Magnesium Hydroxide (Milk Of Magnesia 30 Ml Oral.Susp) 30 ml PO DAILY PRN PRN Reason: Constipation Modafinil (Modafinil 100 Mg Tablet) 200 mg PO DAILY [facility] Last Admin: 11/04/24 08:16 Dose: 200 mg Nicotine Polacrilex (Nicotine Polacrilex 2 Mg Gum) 4 mg BUCCAL Q2H PRN PRN Reason: Nicotine Cravings Nitrofurantoin Macrocrystals (Nitrofurantoin Macrocrystal 50 Mg Capsule) 100 mg PO Q6H [facility] Stop: 11/08/24 09:00 Last Admin: 11/04/24 05:48 Dose: 100 mg Pramipexole Dihydrochloride (Pramipexole Di-Hcl 0.25 Mg Tablet) 0.5 mg PO TID [facility] Last Admin: 11/04/24 08:16 Dose: 0.5 mg Pregabalin (Pregabalin 100 Mg Capsule) 100 mg PO TID [facility] Last Admin: 11/04/24 08:16 Dose: 100 mg Sodium Chloride (Sodium Chloride 0.65 % Nasal 44 Ml Sprbtl) 1 spray NOSTRIL-B Q1H PRN PRN Reason: Dryness Vitamin D (Cholecalciferol (Vitamin D3) 25 Mcg Tablet) 50 mcg PO DAILY [facility] Last Admin: 11/04/24 08:15 Dose: 50 mcg Zolpidem Tartrate (Zolpidem Tartrate 5 Mg Tablet) 10 mg PO BEDTIME PRN PRN Reason: Insomnia Last Admin: 11/03/24 21:52 Dose: 10 mg Allergies Allergies Allergy/AdvReac Type Severity Reaction Status Date / Time olanzapine [From ZYPREXA] AdvReac Intermediate RLS Verified 10/30/24 07:41 symptoms clonidine AdvReac RLS Verified 10/30/24 07:41 diphenhydramine AdvReac RLS Verified 10/30/24 07:41 [From Benadryl] hydroxyzine AdvReac RLS Verified 10/30/24 07:41 melatonin AdvReac RLS Verified 10/30/24 07:41 atypical antipsychotics AdvReac Severe This class Uncoded 10/30/24 07:41 appears to potentiate RLS/Akathesia Assessment & Plan Assessment & Plan (1) Bipolar II disorder: Status: Acute Code(s): F31.81 - Bipolar II disorder (2) Post-traumatic stress disorder, unspecified: Status: Acute Code(s): F43.10 - Post-traumatic stress disorder, unspecified (3) Cannabis use disorder: Status: Acute Code(s): F12.90 - Cannabis use, unspecified, uncomplicated Plan Admit, CV, 15 minute checks. Pt then changed her mind and was placed on a 12B. Continue current med regime Collateral contact for ongoing treatment planning post discharge. Encouraged full milieu. 11/02- Increase Depakote, add a.m. dose Encourage structure and limits-pt angers easily and needs solid redirective support to turn around this sx. [place] re-enforcement. 11/03 Patient reports that she is overall doing okay, a little tearful talking about her son and asks if she can be taken outside to watch him run the local road race; accepted that this is not possible. Patient shared about verbal altercation she had with a peer last night and feels that this peer has turned other patients against her and felt like staff was not helpful to her. She thinks this specific peer will sometimes purposely saying out loud to interfere with patient when she is having conversation with the staff -Patient wanted to discuss clonazepam. She gets 2 mg scheduled at bedtime. She asked if this can be broken up so that she gets 1 mg at bedtime and 1 available as an extra p.r.n. to which movie writer agreed. Patient educated on: diagnosis and medical condition Informed Consent: understands Reason for continued inpatient stay Substantial Risk for: rapid decompensation Time Spent With Patient Time: Total time managing care of this patient today ____ minutes.
[2024-11-04 19:40] VITALS: BP 112/68; PULSE 74; RESP 15; TEMP 36.4; O2SAT 95
[2024-11-04] MEDS: Zolpidem Tartrate 5 MG TABLET 10 MG PO (21:40)
[2024-11-04] MEDS: Divalproex Sodium ER 500 MG TAB.ER.24H PO (21:40)
[2024-11-04] MEDS: clonazePAM 1 MG TABLET PO ×2 (21:40)
[2024-11-05] MEDS: nitrofurantoin macrocrystaL 50 MG CAPSULE 100 MG PO ×4 (05:36→22:40)
[2024-11-05] MEDS: Levothyroxine Sodium 50 MCG TABLET PO (05:36)
[2024-11-05 07:55] VITALS: BP 127/64; PULSE 63; TEMP 36.6; O2SAT 94
[2024-11-05] MEDS: modafiniL 100 MG TABLET 200 MG PO (08:32)
[2024-11-05] MEDS: Cholecalciferol (Vitamin D3) 25 MCG TABLET 50 MCG PO (08:32)
[2024-11-05] MEDS: Pramipexole Di-HCL 0.25 MG TABLET 0.5 MG PO ×3 (08:32→20:46)
[2024-11-05] MEDS: guanFACINE HCl ER 1 MG TAB.ER.24H PO ×4 (08:32→20:45)
[2024-11-05] MEDS: Pregabalin 100 MG CAPSULE PO ×3 (08:32→20:45)
[2024-11-05] MEDS: Lithium Carbonate 300 MG TABLET 150 MG PO (08:32)
[2024-11-05] MEDS: Divalproex Sodium Sprinkles 125 MG CAP.DR.SPR PO (08:33)
--- NOTE | 2024-11-05 10:10 | HO.PSYCHPN ---
Subjective Subjective Date of Service: 11/05/24 Reason For Visit: PTSD, bipolar disorder Subjective Notes: Conditional Voluntary Healthcare Proxy: No Guardianship: No Medical Problems Affecting Mental Status: No Interim History: Met with pt and . Both report a structured weekend. Pt able to watch son's race from the hospital and talk with him on the phone after his completion. Team, pt and report no issue with behavioral sx. Peer conflict she was able to manage appropriately. Klonopin was divided from 2 mg hs. Pt aware we are attempting to keep this at the lowest effective dose. Unit issues were bothersome to pt over the weekend. Discussed if milieu is helpful or harmful at this time. Sleeping 7-8 hours all weekend. Discussed discharge for 11/06. Medication Compliance: Yes Side effects from medications: No Attending Groups: Intermittent Review of Systems Acute medical concerns: No Review of Systems Review of Systems UTI Mental Status Exam Mental Status Exam Patient Appearance: Appropriate Patient Orientation: Person, Place, Time and Situation Level of Consciousness: Alert Patient Behavior: Appropriate, Talkative, Cooperative and Good Eye Contact Mood Description: Anxious Affect Description: Anxious Patient Cognition Impaired: No Ability to Follow Directions: Good Speech Pattern: Spontaneous Speech Memory Description: Intact Hallucinations: None Delusions: Not Present Thought Process: Intact, Distracted and Goal Oriented Thought Content: positive for Intact and positive for Goal Oriented Depressive Symptoms: Increased Anxiety Judgement: Good Diagnostics Vital Signs (24Hr): Vital Signs - 24 hr 11/04/24 19:40 11/05/24 07:55 Temperature 97.6 F 97.9 F Pulse Rate 74 63 Respiratory Rate 15 Blood Pressure 112/68 127/64 Pulse Oximetry 95 94 Oxygen Delivery Method Room Air BMI result Body Mass Index 19.9 Labs 10/30/24 08:18 10/30/24 08:18 Medications Medications Current Medications Acetaminophen (Acetaminophen 325 Mg Tablet) 650 mg PO Q6H PRN PRN Reason: Headache/Pain, Scale 1-10 Last Admin: 11/03/24 19:58 Dose: 650 mg Al Hydroxide/Mg Hydroxide (Magnesium Hydrox/Alum Hydrox 30 Ml Oral.Susp) 30 ml PO Q6H PRN PRN Reason: Heartburn/Nausea Albuterol Sulfate (Albuterol Sulfate 90 Mcg 8 Gm Inhaler) 2 puff INHALE Q4H PRN PRN Reason: wheezing Clonazepam (Clonazepam 1 Mg Tablet) 1 mg PO BEDTIME [facility] Last Admin: 11/04/24 21:40 Dose: 1 mg Clonazepam (Clonazepam 1 Mg Tablet) 1 mg PO DAILY PRN PRN Reason: severe anxiety Last Admin: 11/04/24 21:40 Dose: 1 mg Divalproex Sodium (Divalproex Sodium Er 500 Mg Tab.Er.24h) 500 mg PO BEDTIME [facility] Last Admin: 11/04/24 21:40 Dose: 500 mg Divalproex Sodium (Divalproex Sodium Sprinkles 125 Mg Cap.Dr.Spr) 125 mg PO DAILY [facility] Last Admin: 11/05/24 08:33 Dose: 125 mg Docusate Sodium (Docusate Sodium 100 Mg Capsule) 100 mg PO BID PRN PRN Reason: constipation Guanfacine HCl (Guanfacine Hcl Er 1 Mg Tab.Er.24h) 1 mg PO QID [facility] Last Admin: 11/05/24 08:32 Dose: 1 mg Hydroxyzine HCl (Hydroxyzine Hcl 25 Mg Tablet) 25 mg PO Q6H PRN PRN Reason: mild anxiety Last Admin: 11/02/24 20:14 Dose: 25 mg Ibuprofen (Ibuprofen 400 Mg Tablet) 400 mg PO Q6H PRN PRN Reason: muscle pain Last Admin: 10/31/24 03:58 Dose: 400 mg Levothyroxine Sodium (Levothyroxine Sodium 50 Mcg Tablet) 50 mcg PO DAILY@0600 [facility] Last Admin: 11/05/24 05:36 Dose: 50 mcg Lidocaine (Lidocaine 4 % Patch Adh..Patch) 1 patch TRANSDERMA DAILY [facility]; Protocol Last Admin: 11/05/24 08:55 Dose: Not Given [place] Carbonate ([place] Carbonate 300 Mg Tablet) 150 mg PO DAILY [facility] Last Admin: 11/05/24 08:32 Dose: 150 mg Magnesium Hydroxide (Milk Of Magnesia 30 Ml Oral.Susp) 30 ml PO DAILY PRN PRN Reason: Constipation Modafinil (Modafinil 100 Mg Tablet) 200 mg PO DAILY [facility] Last Admin: 11/05/24 08:32 Dose: 200 mg Nicotine Polacrilex (Nicotine Polacrilex 2 Mg Gum) 4 mg BUCCAL Q2H PRN PRN Reason: Nicotine Cravings Nitrofurantoin Macrocrystals (Nitrofurantoin Macrocrystal 50 Mg Capsule) 100 mg PO Q6H [facility] Stop: 11/08/24 09:00 Last Admin: 11/05/24 05:36 Dose: 100 mg Pramipexole Dihydrochloride (Pramipexole Di-Hcl 0.25 Mg Tablet) 0.5 mg PO TID [facility] Last Admin: 11/05/24 08:32 Dose: 0.5 mg Pregabalin (Pregabalin 100 Mg Capsule) 100 mg PO TID [facility] Last Admin: 11/05/24 08:32 Dose: 100 mg Sodium Chloride (Sodium Chloride 0.65 % Nasal 44 Ml Sprbtl) 1 spray NOSTRIL-B Q1H PRN PRN Reason: Dryness Vitamin D (Cholecalciferol (Vitamin D3) 25 Mcg Tablet) 50 mcg PO DAILY [facility] Last Admin: 11/05/24 08:32 Dose: 50 mcg Zolpidem Tartrate (Zolpidem Tartrate 5 Mg Tablet) 10 mg PO BEDTIME PRN PRN Reason: Insomnia Last Admin: 11/04/24 21:40 Dose: 10 mg Allergies Allergies Allergy/AdvReac Type Severity Reaction Status Date / Time olanzapine [From ZYPREXA] AdvReac Intermediate RLS Verified 10/30/24 07:41 symptoms clonidine AdvReac RLS Verified 10/30/24 07:41 diphenhydramine AdvReac RLS Verified 10/30/24 07:41 [From Benadryl] hydroxyzine AdvReac RLS Verified 10/30/24 07:41 melatonin AdvReac RLS Verified 10/30/24 07:41 atypical antipsychotics AdvReac Severe This class Uncoded 10/30/24 07:41 appears to potentiate RLS/Akathesia Assessment & Plan Assessment & Plan (1) Bipolar II disorder: Status: Acute Code(s): F31.81 - Bipolar II disorder (2) Post-traumatic stress disorder, unspecified: Status: Acute Code(s): F43.10 - Post-traumatic stress disorder, unspecified (3) Cannabis use disorder: Status: Acute Code(s): F12.90 - Cannabis use, unspecified, uncomplicated Plan Admit, CV, 15 minute checks. Pt then changed her mind and was placed on a 12B. Continue current med regime Collateral contact for ongoing treatment planning post discharge. Encouraged full milieu. 11/02- Increase Depakote, add a.m. dose Encourage structure and limits-pt angers easily and needs solid redirective support to turn around this sx. [place] re-enforcement. 11/03 Patient reports that she is overall doing okay, a little tearful talking about her son and asks if she can be taken outside to watch him run the local road race; accepted that this is not possible. Patient shared about verbal altercation she had with a peer last night and feels that this peer has turned other patients against her and felt like staff was not helpful to her. She thinks this specific peer will sometimes purposely saying out loud to interfere with patient when she is having conversation with the staff -Patient wanted to discuss clonazepam. She gets 2 mg scheduled at bedtime. She asked if this can be broken up so that she gets 1 mg at bedtime and 1 available as an extra p.r.n. to which typewriters functional tester agreed. 11/05: Discharge 11/06. Reason for continued inpatient stay Substantial Risk for: stable for discharge Time Spent With Patient Time: Total time managing care of this patient today ____ minutes.
[2024-11-05 20:00] VITALS: BP 123/70; PULSE 76; TEMP 36.8; O2SAT 95
[2024-11-05] MEDS: clonazePAM 1 MG TABLET PO ×2 (20:45→20:54)
[2024-11-05] MEDS: Divalproex Sodium ER 500 MG TAB.ER.24H PO (20:46)
[2024-11-05] MEDS: Zolpidem Tartrate 5 MG TABLET 10 MG PO (20:54)
[2024-11-06] MEDS: nitrofurantoin macrocrystaL 50 MG CAPSULE 100 MG PO ×2 (06:07→11:22)
[2024-11-06] MEDS: Levothyroxine Sodium 50 MCG TABLET PO (06:38)
[2024-11-06 08:00] VITALS: BP 92/60; PULSE 67; TEMP 35.9; O2SAT 94
[2024-11-06] MEDS: Lithium Carbonate 300 MG TABLET 150 MG PO (08:11)
[2024-11-06] MEDS: clonazePAM 1 MG TABLET PO (08:11)
[2024-11-06] MEDS: Cholecalciferol (Vitamin D3) 25 MCG TABLET 50 MCG PO (08:12)
[2024-11-06] MEDS: guanFACINE HCl ER 1 MG TAB.ER.24H PO (08:12)
[2024-11-06] MEDS: modafiniL 100 MG TABLET 200 MG PO (08:12)
[2024-11-06] MEDS: Pramipexole Di-HCL 0.25 MG TABLET 0.5 MG PO (08:13)
[2024-11-06] MEDS: Pregabalin 100 MG CAPSULE PO (08:13)
[2024-11-06] MEDS: Divalproex Sodium Sprinkles 125 MG CAP.DR.SPR PO (08:13)
[2024-11-06 08:38] LABS: Valproate 40.9 mcg/mL (50.0-100.0)
--- NOTE | 2024-11-06 12:30 | P.DS_ITS ---
DS: Providers Provider Date of Service: 11/06/24 Date of admission: 10/30/24 14:21 Date of discharge: 11/06/24 Primary care physician: Tonya Sarmiento MD Admitting clinician: Padmini Quintanilla Attending physician on admission: Jr Cuenca Attending physician on discharge: Jr Cuenca Discharging clinician: Padmini Quintanilla DS: Diagnosis Discharge Diagnosis (1) Bipolar II disorder: Status: Acute (2) Post-traumatic stress disorder, unspecified: Status: Acute (3) Cannabis use disorder: Status: Acute DS: Medications Discharge Medications Home Medications: Previous Rx's ?Medication ?Instructions ?Recorded albuterol sulfate 90 mcg/actuation 2 puff inhalation Q4-6H PRN 10/29/24 aerosol inhaler (Ventolin HFA) wheezing 30 days #1 inhaler cholecalciferol (vitamin D3) 50 50 mcg PO DAILY #30 caps 10/29/24 mcg (2,000 unit) capsule (Vitamin D3) clonazepam 2 mg tablet (Klonopin) 2 mg PO BEDTIME #7 tabs 10/29/24 divalproex 500 mg tablet,extended 500 mg PO BEDTIME #30 tabs 10/29/24 release 24 hr docusate sodium 100 mg capsule 100 mg PO BID PRN constipation #60 10/29/24 caps guanfacine 1 mg tablet,extended 1 mg PO QID 30 days #120 tabs 10/29/24 release 24 hr ibuprofen 400 mg tablet 400 mg PO Q6H PRN muscle pain #0 10/29/24 tabs levothyroxine 50 mcg tablet 50 mcg PO DAILY@0600 #30 tabs 10/29/24 lidocaine 4 % topical patch 1 patch transdermal DAILY #30 ea 10/29/24 (Lidocaine Pain Relief) modafinil 200 mg tablet 200 mg PO QAM #30 tabs 10/29/24 pramipexole 0.5 mg tablet 0.5 mg PO TID 30 days #90 tabs 10/29/24 pregabalin 150 mg capsule 150 mg PO TID #90 caps 10/29/24 sodium chloride 0.65 % nasal spray 1 spray intranasal Q1H PRN Dryness 10/29/24 aerosol (Deep Sea Nasal) #0 mL divalproex 125 mg capsule,delayed 125 mg PO DAILY #30 caps 11/06/24 release sprinkle lithium carbonate 300 mg tablet 150 mg (1/2 x 300 mg) PO DAILY #0 11/06/24 tabs nitrofurantoin macrocrystal 50 mg 100 mg (2 x 50 mg) PO Q6H #6 caps 11/06/24 capsule zolpidem 10 mg tablet (Ambien) 10 mg PO BEDTIME PRN sleep #30 tabs 11/06/24 Mental Status Exam Mental Status Exam Patient Appearance: Appropriate Patient Orientation: Person, Place, Time and Situation Level of Consciousness: Alert Patient Behavior: Appropriate, Talkative, Cooperative and Good Eye Contact Mood Description: Anxious Affect Description: Anxious Patient Cognition Impaired: No Ability to Follow Directions: Good Speech Pattern: Spontaneous Speech Memory Description: Intact Hallucinations: None Delusions: Not Present Thought Process: Intact, Distracted and Goal Oriented Thought Content: positive for Intact and positive for Goal Oriented Depressive Symptoms: Increased Anxiety Judgement: Good Data Data Completed and Pending Completed studies during hospitalization [Text1]: 10/30/24 10/30/24 11/06/24 17:38 18:53 07:57 Urine Color Yellow Urine Appearance Clear Urine pH 7.5 Ur Specific [place] 1.015 Urine Protein Negative Urine Glucose (UA) Negative Urine Ketones Negative Urine Blood Negative Urine Nitrite Negative Ur Leukocyte Esterase Small (1+) H Urine RBC 0-2 Urine WBC 0-5 Ur Squamous Epith Cells 0-2 Urine Bacteria 1+ Hyaline Casts 0-2 Urine Opiates Screen Not Detected Ur Buprenorphine Scrn Not Detected Ur Oxycodone Screen Not Detected Urine Methadone Screen Not Detected Urine Fentanyl Screen Not Detected Ur Barbiturates Screen Not Detected Valproic Acid 40.9 L Ur Phencyclidine Scrn Not Detected Ur Amphetamines Screen Not Detected U Benzodiazepines Scrn Not Detected Urine Cocaine Screen Not Detected U Marijuana (THC) Screen POSITIVE H 10/31/24 Unknown Urine clean catch - Clean Catch Midstream Urine Culture - Final Klebsiella pneumoniae Enterococcus faecalis DS: Summary Hospital Course Hospital Course: Admission to adult psychiatry for exacerbation of bipolar disorder, PTSD, substance abuse. Pt re-admitted one day post discharge, stating she had been discharged too early. Admitted on Section XIIB which changed to CV post 72 hours. Medications were continued and adjustments were continued. Pt was found to have a UTI which was treated. Pt was interactive in the milieu and participatory in groups. She will return home with her , will have a bridge appt with Fiorella Nettles APRN on 11/13/24 and a [facility] PHP intake in November. Pt and will choose an out pt med provider post termination with Fiorella Nettles APRN, however, resources for appointments were given. Status at Discharge Functional status at discharge: independent ambulation Overall status at discharge: patient is progressing back to baseline Time Spent with Patient Time attestation: Total time managing care of this patient today ____ minutes. Time spent: Less than 30 minutes Discharge Plan Discharge Anticipated Discharge Date/Time: 11/06/24 12:00 Patient Disposition: Home, Self-Care Discharge Diagnosis: PTSD Bipolar II Disorder Cannabis Use Disorder Referrals: Rylee Ricks (Bridging) Psychiatry [Other] - 11/13/24 11:30 am [facility] Partial Hospitalization Program [facility] [Other] - 11/26/24 8:00 am (You are on the cancellation list as well. ) [facility]iatry [Other] - 1 Week (You are on a wait list for a psychiatric prescriber at one of the above offices; they will call you when a prescriber becomes available. It is advised you call the above number to follow up once a week.) [facility] [Other] - 1 Week (A referral was placed for you during your previous admission and you will need to follow up with them to see where you are on their wait list. It is recommended you follow up weekly. ) Psychiatry Resources [Other] - 1 Week (- [facility] - [facility] Maryam Levi [phone]. She is based in [place], [place].) Tonya Sarmiento MD [Primary Care Provider] - 1 Week (Office will call pt with follow up appointment. ) Discharge Medications: New lithium carbonate 300 mg Tablet 150 mg PO DAILY Qty: 0 0RF divalproex 125 mg Capsule, Delayed Rel Sprinkle 125 mg PO DAILY Qty: 30 0RF zolpidem [Ambien] 10 mg tablet 10 mg PO BEDTIME PRN (Reason: sleep) Qty: 30 0RF nitrofurantoin macrocrystal 50 mg Capsule 100 mg PO Q6H Qty: 6 0RF Continued divalproex 500 mg Tablet Extended Release 24 Hr 500 mg PO BEDTIME Qty: 30 0RF ibuprofen 400 mg Tablet 400 mg PO Q6H PRN (Reason: muscle pain) Qty: 0 0RF Deep Sea Nasal 0.65 % Aerosol,Isom 1 spray intranasal Q1H PRN (Reason: Dryness) Qty: 0 0RF pregabalin 150 mg Capsule 150 mg PO TID Qty: 90 0RF lidocaine [Lidocaine Pain Relief] 4 % Adhesive Patch,Medicated 1 patch transdermal DAILY Qty: 30 0RF Protocol: Apply to: Apply to: affected area levothyroxine 50 mcg Tablet 50 mcg PO DAILY@0600 Qty: 30 0RF pramipexole 0.5 mg tablet 0.5 mg PO TID 30 Days Qty: 90 1RF modafinil 200 mg tablet 200 mg PO QAM Qty: 30 1RF docusate sodium 100 mg capsule 100 mg PO BID PRN (Reason: constipation) Qty: 60 0RF albuterol sulfate [Ventolin HFA] 90 mcg/actuation HFA aerosol inhaler 2 puff inhalation Q4-6H PRN (Reason: wheezing) 30 Days Qty: 1 3RF cholecalciferol (vitamin D3) [Vitamin D3] 50 mcg (2,000 unit) capsule 50 mcg PO DAILY Qty: 30 0RF guanfacine 1 mg tablet extended release 24 hr 1 mg PO QID 30 Days Qty: 120 2RF Rx Instructions: Take one tablet 4 times a day at 7am, 12pm and 5pm, and bedtime clonazepam [Klonopin] 2 mg tablet 2 mg PO BEDTIME Qty: 7 4RF Rx Instructions: administer 30 minutes before bedtime Discontinued zolpidem 5 mg Tablet 10 mg PO BEDTIME PRN (Reason: Insomnia) Qty: 7 4RF lithium carbonate 300 mg Tablet 150 mg PO DAILY Qty: 30 0RF No Action rosuvastatin 5 mg tablet 5 mg PO Q2D 90 Days Qty: 45 3RF Discharge Orders: Discharge Order (Routine); Ordered 11/06/24 Ordered By: Padmini Quintanilla Diet: Advance to usual diet Activity on Discharge: As tolerated Stand Alone Forms: Patient Portal Discharge page, Community Support Print Language: Montserratian Care Plan Goals: Mood and Behavioral Stabilization Abstinence from Substances Health Concerns: Mood and Behavioral Stabilization Abstinence from Substances Plan of Treatment: Attend scheduled appointments Take medications as directed We suggest you stop cannabis completely Assessment: No SI, HI, AH, VH No sx of acute leah or psychosis Pt and agree with plan of care. Discharge Date/Time: 11/06/24 11:58
== END 2024-11-06 11:58 | disposition home or self-care (01) | DRG 885 ==
LOC: HO.ED 11:02 → HO.PM5 14:22
PROVIDERS: Admitting Provider Clinical Nurse Specialist Psychiatric/Mental Health, Adult; Emergency Provider Emergency Medicine Emergency Medical Services; PCP Internal Medicine; Visit Provider Clinical Nurse Specialist Psychiatric/Mental Health, Adult
DX: F31.81 Bipolar II disorder (principal); E03.9 Hypothyroidism, unspecified; F17.210 Nicotine dependence, cigarettes, uncomplicated; F43.10 Post-traumatic stress disorder, unspecified; F12.90 Cannabis use, unspecified, uncomplicated; Z71.6 Tobacco abuse counseling; Z79.899 Other long term (current) drug therapy
CPT/HCPCS: 36415; 80053; 80164; 80178; 80307; 81001; 81003; 85025; 87086; 87088; 87186; 93005; 99285; S9485

== ENCOUNTER → 2024-10-30 11:55 | Outpatient (BNV) | payer OTHER, SELFPAY | PROVIDERS: Admitting Provider Clinical Nurse Specialist Psychiatric/Mental Health, Adult; Emergency Provider Emergency Medicine Emergency Medical Services; PCP Internal Medicine; Visit Provider Internal Medicine Cardiovascular Disease | DX: R94.31 Abnormal electrocardiogram [ECG] [EKG] (principal); Z13.6 Encounter for screening for cardiovascular disorders | CPT/HCPCS: 93010 ==

== ENCOUNTER → 2024-10-30 14:21 | Outpatient (BNV) | payer OTHER, SELFPAY | PROVIDERS: Admitting Provider Clinical Nurse Specialist Psychiatric/Mental Health, Adult; Emergency Provider Emergency Medicine Emergency Medical Services; PCP Internal Medicine; Visit Provider Clinical Nurse Specialist Psychiatric/Mental Health, Adult | DX: F31.81 Bipolar II disorder (principal); F43.10 Post-traumatic stress disorder, unspecified; F12.90 Cannabis use, unspecified, uncomplicated | CPT/HCPCS: 90792; 99499 ==

== ENCOUNTER 2024-11-08 15:55 | Outpatient (AMB) | payer OTHER, SELFPAY ==
[2024-11-08 16:11] VITALS: BP 130/66; PULSE 86; RESP 18; TEMP 36.8; O2SAT 98
--- NOTE | 2024-11-08 16:11 | MHC.PC.OV ---
Vital Signs 11/08/24 16:11 Height 5 ft 1 in Weight 106 lb BMI 20.0 BP 130/66 Blood Pressure Location Lt brachial Position Sitting Respiration 18 Pulse 86 Pulse Source Pulse Oximeter Temp 98.2 F Temp Source Oral Pulse Oximetry (%) 98 Oxygen Delivery Method Room Air Intake Visit Reasons: [facility] depression Intake Note: Pt is here today [facility] depression Allergies olanzapine [From ZYPREXA] Adverse Reaction (Intermediate, Verified 11/08/24 16:28) RLS symptoms clonidine Adverse Reaction (Verified 11/08/24 16:28) RLS diphenhydramine [From Benadryl] Adverse Reaction (Verified 11/08/24 16:28) RLS hydroxyzine Adverse Reaction (Verified 11/08/24 16:28) RLS melatonin Adverse Reaction (Verified 11/08/24 16:28) RLS atypical antipsychotics Adverse Reaction (Severe, Uncoded 11/08/24 16:28) This class appears to potentiate RLS/Akathesia Medication List - Last Reconciled 11/08/24 by Tonya Sarmiento MD albuterol sulfate 90 mcg/actuation (Ventolin HFA) 2 puffs inhalation Q4-6H PRN 30 days cholecalciferol (vitamin D3) (Vitamin D3) 50 mcg PO DAILY clonazepam (Klonopin) 2 mg PO BEDTIME divalproex 125 mg PO DAILY divalproex ER 500 mg PO BEDTIME docusate sodium 100 mg PO BID PRN guanfacine ER 1 mg PO QID 30 days ibuprofen 400 mg PO Q6H PRN levothyroxine 50 mcg PO DAILY@0600 lidocaine 4% (Lidocaine Pain Relief) 1 patch See Protocol transdermal DAILY lithium carbonate 150 mg (1/2 x 300 mg) PO DAILY modafinil 200 mg PO QAM nitrofurantoin macrocrystal 100 mg (2 x 50 mg) PO Q6H pramipexole 0.5 mg PO TID 30 days pregabalin 150 mg PO TID sodium chloride 0.65% (Deep Sea Nasal) 1 spray intranasal Q1H PRN zolpidem (Ambien) 10 mg PO BEDTIME PRN Tobacco use date assessed: 11/08/24 Dental Screening Dental Screen Date: 11/08/24 Did you have a dental visit in the last 12 months?: Yes Did you have a dental problem in the last 6 months where you did not have access to dental care?: Yes Was dental information given to patient?: Patient has dentist HPI [facility] depression HPI Details 64-year-old lady with history of bipolar disorder, PTSD, substance abuse/cannabis, here today for follow-up after recent hospital admission at the psychiatry unit for an exacerbation of bipolar disorder and PTSD. She was also found to have a urinary tract infection which was already treated, patient without any urinary symptoms at present time. Patient is seeking a private provider for her psychiatric here but will have a bridge appointment with Fiorella Ricks APRN on 11/13/2024. She has had TMS sessions and ECTs in the past all of which has not been helpful, per patient. He has an appointment at [facility] partial hospitalization program intake on 11/26/2024 at a.m., and is on the waiting list with [facility]iat[facility] to see another psychiatric prescriber, and a referral also to see [facility] for therapy, advised to call them to schedule an appointment. She has been advised to stoptaking cannabis completely. 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 ADHD Hypothyroidism Polysubstance use disorder Cannabis use disorder Cocaine use disorder Acute medication-induced akathisia Osteopenia of multiple sites Syncope Type II diabetes mellitus Fibromyalgia Benzodiazepine abuse RLS (restless legs syndrome) COPD (chronic obstructive pulmonary disease) HLD (hyperlipidemia) Surgical History History of vaginal hysterectomy History of cataract surgery Family History Mother CAD (coronary artery disease) Father Alcoholism Son Substance use disorder Son Substance use disorder Social History Household Members: Significant Other Household Members Other:: son's girlfriend Housing: Apartment Do you presently have visiting nurse or other home services: No Unable to assess alcohol history related to: Unknown Alcohol intake: never Comment: Pt reports falling d/t excessive intake of Benzo's prior to admission Patient Tobacco Use Status: Current everyday Tobacco user Tobacco use type: Cigarette Cigarette Packs Per Day: 1 Cigarettes Per Day: 17 Years Smoked: 45 e-Cigarette/Vaping Use: Never Used Second Hand Smoke Exposure: No Substance Use Type: Marijuana Advance Directives Date on File: 06/05/24 service: No Current occupational status: unemployed Sexual orientation: Straight/Heterosexual Cognitive needs: No Hearing needs: No Vision needs: No Questionnaire PHQ-9 Over the last 2 weeks, how often have you been bothered by any of the following problems? 1. Little interest or pleasure in doing things: several days 2. Feeling down, depressed, or hopeless: several days 3. Trouble falling or staying asleep, or sleeping too much: more than half the days 4. Feeling tired or having little energy: not at all 5. Poor appetite or overeating: several days 6. Feeling bad about yourself - or that you are a failure or have let yourself or your family down: not at all 7. Trouble concentrating on things, such as reading the newspaper or watching television: several days 8. Moving or speaking so slowly that other people could have noticed. Or the opposite - being so fidgety or restless that you have been moving around a lot more than usual: not at all 9. Thoughts that you would be better off or of hurting yourself in some way: not at all Total score: 6 Depression Screening Interpretation: Positive (Currently followed by psychiatry and sees therapist at [facility]) Depression Screening Follow-up: Existing condition, In treatment and Community Mental Health Worker F/U Depression Screening Done: Yes 65186 - PHQ-9 Billing: Yes Source: Developed by Drs. Darion Garcia, Vernon Lala and colleagues, with an educational eloy from [employer]. Thrive Questionnaire Date Thrive assessed: 11/02/24 AUDIT C Alcohol Use Questionnaire (AUDIT-C) 1. How often do you have a drink containing alcohol?: Never Total Score: 0 MARY-7 AMB Questionnaire MARY-7 Date MARY - 7 assessed: 06/05/24 Source: Developed by Drs. Darion Garcia, Vernon Lala and colleagues, with an educational eloy from [employer]. Review of Systems Const All systems reviewed & are unremarkable except as noted in HPI and below Denies fever(s) and Denies headache(s) Eyes Denies change in vision, Denies eye discharge and Denies itchy eyes ENT Denies dizziness, Denies headache(s), Denies nasal congestion, Denies nasal discharge and Denies sore throat Card Denies chest pain, Denies lightheadedness, Denies palpitations and Denies dyspnea Resp Denies chest congestion, Denies cough, Denies dyspnea and Denies wheezing GI Denies abdominal pain, Denies change in bowel habits and Denies heartburn Denies hematuria, Denies urinary frequency, Denies dysuria and Denies urinary urgency Musc Reports no additional complaints Neuro Denies dizziness and Denies headache(s) Psych Reports as per HPI Endo Denies polydipsia, Denies polyuria and Denies palpitations Anthony/Lymph Denies easy bruising Aller/Immun Denies itchy eyes, Denies seasonal rhinorrhea and Denies wheezing Physical exam (Primary Care) Vital Signs: Last Vital Signs Temp 98.2 F 11/08/24 16:11 Pulse 86 11/08/24 16:11 Resp 18 11/08/24 16:11 BP 130/66 11/08/24 16:11 Pulse Ox 98 11/08/24 16:11 Oxygen Delivery Method Room Air 11/08/24 16:11 BMI result Body Mass Index 20.0 Tobacco/Smoking Status: Tobacco use Status Tobacco use date assessed 11/08/24 11/08/24 16:13 Patient Tobacco Use Status Current everyday Tobacco 11/08/24 16:13 Tobacco use type Cigarette 11/08/24 16:13 e-Cigarette/Vaping Use Never Used 11/08/24 16:13 PHQ-9: PHQ-9 Score PHQ-9: Total score 3 11/11/24 19:55 Depression Screening Interpretation: Positive (Currently followed by psychiatry and sees therapist at [facility]) Depression Screening Follow-up: Existing condition, In treatment and Community Mental Health Worker F/U Thrive Assessment: Date of Thrive Assessment Date Thrive assessed 11/02/24 11/08/24 16:13 Const General: comfortable and no acute distress Nutritional Appearance: underweight Orientation/consciousness: patient oriented x3 HENMT Ears: external ears normal General nose exam: Normal external nose present Mouth: Normal oral and palatal mucosa present, oropharynx normal and moist mucous membranes Eyes General: appearance normal, both eyes and all related structures Neck Neck: Yes full ROM, Yes no lymphadenopathy and Yes supple Resp Effort & Inspection: normal respiratory effort and able to speak in complete sentences Auscultation: clear to auscultation bilaterally Cardio Rate: regular rate Rhythm: regular rhythm Heart sounds: S1 normal heart sound present and S2 normal heart sound present GI Palpation (GI): Soft to palpation, nontender and no masses Auscultation: normal bowel sounds Back/Spine/Pelvis Back: No back tenderness Skin General skin exam: dry skin Neuro General: patient oriented x3, gait normal, tone normal, moves all extremities, Normal light touch and pain sensation and no focal motor deficits Cranial nerves: Yes CN's II-XII intact bilaterally Cognition (Neuro): normal cognition Extrem General: Yes full ROM, Yes no joint enlargement, Yes no clubbing, cyanosis or edema and Yes no calf tenderness Psych Appearance: grossly normal and well kempt Mental Status: mental status grossly normal Speech and movement: Normal speech and movement present Affect: normal affect Attitude: cooperative Thought process: Normal thought process present Thought content: Normal thought content present Results Reviewed Results Reviewed: Name: Jaja Beebe Age/Sex: 63/F : 1960 Unit#: [id number] Attend Dr: Padmini Quintanilla APRN Re10/18/24 Status: DIS IN Location: [facility] 507-2 Disch: 10/29/24 SPEC : [id number] TORRI: 10/19/24 STATUS: COMP REQ : [id number] RECD: 10/19/[address]: Rubi Garces NP COMP: 10/19/24 ENTERED: 10/19/[address]: Tonya Sarmiento MD ORDERED: Lipid Panel Test Result Flag Reference Triglyceride 114 <150 mg/dL Desirable Triglyceride: less than 150 mg/dL Borderline High Triglyceride 150-199 mg/dL High Triglyceride: 200-499 mg/dL Very High Triglyceride: greater than or equal to 5OO mg/dL Cholesterol 212 H <200 mg/dL Desirable Cholesterol: less than 200 mg/dL Borderline High Cholesterol: 200-239 mg/dL High Cholesterol: greater than 239 mg/dL LDL Calculated 121 H <100 mg/dL Desirable LDL: less than 100 mg/dL Near Optimal/Above Optimal LDL: 110-129 mg/dL Borderline High LDL: 130-159 mg/dL High LDL: 160-189 mg/dL Very High LDL: greater than or equal to 190 mg/dL HDL 69 >40 mg/dL Desirable HDL: greater than 40 mg/dL Note: This HDL assay may give artificially low results in patients with liver disease. Coding Level of Care Code Est Pt Level 4 (93553) Complex EM visit Add On G2211 Diagnoses Bipolar disorder F31.9 Post-traumatic stress disorder, unspecified F43.10 Acquired hypothyroidism E03.9 Hypothyroidism type: acquired HLD (hyperlipidemia) E78.5 Additional Codes PHQ-9 - 66979 - PHQ-9 Billing: Yes ([id number]) Assessment & Plan Assessment & Plan (1) Bipolar disorder: Code(s): F31.9 - Bipolar disorder, unspecified Category: Medical Plan: Currently followed by psychiatry, with a bridge appointment scheduled with krunal Ricks on November 13 2024 , with patient currently looking for a new psychiatrist prescribing (2) Post-traumatic stress disorder, unspecified: Code(s): F43.10 - Post-traumatic stress disorder, unspecified Category: Medical Plan: Continued on present meds: Has a bridge appointment with krunal Ricks scheduled for 11/13/2024 until she is able to transfer to a new psychiatrist provider (3) Hypothyroidism: Code(s): E03.9 - Hypothyroidism, unspecified Category: Medical Qualifiers: Hypothyroidism type: acquired Qualified Code(s): E03.9 - Hypothyroidism, unspecified Plan: Was started on levothyroxine by psychiatric provider due to elevated TSH and low normal free T4, latest TSH was within normal limits last July 2024 , check TSH and free T4 in December 2024 prior to next appointment. Labs have been ordered (4) HLD (hyperlipidemia): Code(s): E78.5 - Hyperlipidemia, unspecified Category: Medical Plan: Continue with rosuvastatin 5 mg every other day. Recent fasting lipid reviewed with patient which showed normal findings check another fasting lipid panel in December 2024 before her next appointment Medications: New rosuvastatin 5 mg PO Q2D 3 months 45 tabs 3RF
== END 2024-11-08 16:48 | disposition home or self-care (01) ==
LOC: HO.HMCC 15:55
PROVIDERS: PCP Internal Medicine; Visit Provider Internal Medicine
DX: F31.9 Bipolar disorder, unspecified (principal); F43.10 Post-traumatic stress disorder, unspecified; E03.9 Hypothyroidism, unspecified; E78.5 Hyperlipidemia, unspecified

== ENCOUNTER → 2024-11-08 15:55 | Outpatient (BNVA) | payer OTHER, SELFPAY | PROVIDERS: PCP Internal Medicine; Visit Provider Internal Medicine | DX: F31.9 Bipolar disorder, unspecified (principal); F43.10 Post-traumatic stress disorder, unspecified; E03.9 Hypothyroidism, unspecified; E78.5 Hyperlipidemia, unspecified; Z79.899 Other long term (current) drug therapy | CPT/HCPCS: 96127 ==

== ENCOUNTER 2024-11-12 11:51 | Outpatient (RCR) | payer OTHER, SELFPAY ==
--- NOTE | 2024-11-14 09:50 | HO.PHP ---
This clinician called the client and no response was received and following that the emergency contact (her Max Beebe) was called and he responded. He informed the clinician that his was doing okay but probably she misunderstood her schedule for the week because she was unable to start in the Program until Tuesday. The clinician informed him that the patient will be discharged and she will need a re-assessment to start in the Prog[facility]. Her also communicated the clinician that the patient's phone was not working. No safety concerns were reported.
== END 2024-11-12 23:59 | disposition home or self-care (01) ==
LOC: HO.PHPA 11:51
PROVIDERS: Visit Provider Psychiatry & Neurology Psychiatry
DX: F31.81 Bipolar II disorder (principal); F90.8 Attention-deficit hyperactivity disorder, other type; F41.1 Generalized anxiety disorder; F12.90 Cannabis use, unspecified, uncomplicated; F43.10 Post-traumatic stress disorder, unspecified
CPT/HCPCS: 90791

== ENCOUNTER 2024-11-13 14:02 | Outpatient (AMB) | payer OTHER, SELFPAY ==
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
--- OUTSIDE RECORDS SUMMARY | 2024-11-13 16:44 | XMS_ITS ---
Author Organization [facility] Address [address] [place] [phone] Care Team Providers Care Communications Designer Name Role Phone [facility] Primary Care Provider Karoline Mak Unavailable [phone] Encounters Encounter Location Date Provider Diagnosis [facility] [address] [place] [phone] 10/21/2023 Karoline Carcamo Plan Of Treatment No Information Progress Notes * Leigh BEEBEOB:1960 (64 yo F)Acc No.[id number]:10/21/2023 Case Management Patient:?Jaja BEEBE Provider:?Karoline Carcamo :1960???Age:62 Y???Sex:Female D ate:10/21/2023 Address:[address] [place], [place] [phone] Pcp:[facility] Subjective: * Chief Complaints: * ??? * Medical History:? Objective: Assessment: Plan: * Treatment: * Images: Billing Information: * Visit Code:? * Procedure Codes:? Care Plan Details* * Electronic signature of Jose Ramon Carcamo on 11/13/2024 at 04:44 PM EDT Sign off status: Pending * Provider:Shagufta Carcamo Date:? Generated for Jay Jay cintron/Morales/eTransmitting on:?11/13/2024 04:44 PM EDT
--- OUTSIDE RECORDS SUMMARY | 2024-11-13 16:44 | XMS_ITS ---
Author Organization [facility] Address [address] [place] [phone] Care Team Providers Care Alarm Signaler Name Role Phone [facility] Primary Care Provider Karoline Mak Unavailable Encounters Encounter Location Date Provider Diagnosis [facility] [address] [place] [phone] 10/13/2023 Karoline Carcamo Plan Of Treatment No Information Progress Notes * Leigh BEEBEOB:1960 (64 yo F)Acc No.[id number]:10/13/2023 Case Management Patient:?Jaja BEEBE Provider:?Karoline Carcamo :1960???Age:62 Y???Sex:Female D ate:10/13/2023 Address:[address] [place], [place] [phone] Pcp:[facility] Subjective: * Chief Complaints: * [...]
--- OUTSIDE RECORDS SUMMARY | 2024-11-13 16:44 | XMS_ITS | Encounter Summary ---
Author Organization [employer] Address [address] [facility] 7t [place] [address] Care Team Providers Care Automotive General Manager Name Role Phone Unavailable Primary Care Provider Unavailabl e Reason for Visit * Reason Onset Date Comments insurance information/self pay 08/17/2024 Encounter Details Date Type Department Care Team (Late st Contact Info) Description 08/17/2024 Telephone [facility] ADULT DENTAL [address] [place], [place] [phone] Kj Zurita, DMD [address] [place], [place] [phone] insurance information/self pay Social History Tobacco Use [...] 8:27 AM EST Patient states she has [employer] for insurance but does not have the [...]
--- OUTSIDE RECORDS SUMMARY | 2024-11-13 16:44 | XMS_ITS | Patient Health Record ---
Author Organization [facility] Address [address] [place], [place] [phone] Care Team Providers Care Slide Maker Name Role Phone [facility] Primary Care Provider Karoline Mak Unavailable [phone] Reason For Referral No Information Plan Of Treatment No Information Insurance Providers Payer Name Payer Address Payer Phone Subscriber Number Group Number Insured Name Patient Relationship to Insured Coverage Start Date Coverage End Date [place] Medicare Part A [employer] [address] [place] [address] [id number] Jaja Beebe Self - patient is the insured 2 2
--- OUTSIDE RECORDS SUMMARY | 2024-11-13 16:45 | XMS_ITS ---
Author Organization [facility] Address [address] [place] [phone] Care Team Providers Care Mixer Operator Hot Metal Name Role Phone [facility] Primary Care Provider Karoline Mak Unavailable Encounters Encounter Location Date Provider Diagnosis [facility] [address] [place] [phone] 10/05/2023 Karoline Carcamo Plan Of Treatment No Information Progress Notes * Leigh BEEBEOB:1960 (62 yo F)Acc No.[id number]:10/05/2023 Case Management Patient:?Jaja Beebe Provider:?Karoline Carcamo :1960???Age:62 Y???Sex:Female D ate:10/05/2023 Address:[address] [place], [place] [phone] Pcp:[facility] Subjective: * Chief Complaints: * ??? 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 [place] [employer] [place] real [employer] housing applications were filled out client is still waiting for the proof of income verification. * Medical History:? Objective: Assessment: Plan: * Treatment: * Images: Billing Information: * Visit Code:? * Procedure Codes:? Care Plan Details* * Sign off status: Completed true * Provider:?Karoline Carcamo Date:? Generated for Jay Jay cintron/Morales/Ruthiesmitting on:?11/13/2024 04:44 PM EDT History and Physical Notes * HPI (History of Present Illness) Category Sub-Category Detail Notes Social Service Referral Source returning client Interpretation for medical provider Mail cherry picker operator, housing
--- OUTSIDE RECORDS SUMMARY | 2024-11-13 16:45 | XMS_ITS | Encounter Summary ---
Author Organization [employer] Address [address] [facility] 7t [place] [address] Care Team Providers Care Director Of Early Childhood Education Name Role Phone Unavailable Primary Care Provider Unavailabl e Encounter Details Date Type Department Care Team (Latest Contact Info) Description 10/26/2018 Abstract [facility] CONVERSIONS Dental, Provider, DDS Social History [...]
--- OUTSIDE RECORDS SUMMARY | 2024-11-13 16:45 | XMS_ITS | Clinical Summary ---
Author Organization [employer] Address [address] [facility] 7t [place] [address] Care Team Providers Care Aquatic Facility Manager Name Role Phone Unavailable Primary Care Provider Unavailabl e Encounters Date Type Department Care Team Description 08/17/2024 Telephone [facility] ADULT DENTAL [address] [place] [address] Kj Zurita DMD insurance information/self pay from [...]
== END 2024-11-13 14:03 | disposition home or self-care (01) ==
LOC: HO.HOP 14:02
PROVIDERS: PCP Internal Medicine; Visit Provider Clinical Nurse Specialist Psychiatric/Mental Health
DX: F43.10 Post-traumatic stress disorder, unspecified (principal); F31.81 Bipolar II disorder
CPT/HCPCS: 98013

== ENCOUNTER 2024-12-04 14:55 | Outpatient (AMB) | payer MEDICARE, SELFPAY ==
--- NOTE | 2024-12-04 15:08 | MHC.OFFWIV ---
Intake Vital Signs 12/04/24 15:09 Weight 99 lb 6 oz BP 92/56 L Blood Pressure Location Rt brachial Position Sitting Pulse 76 Pulse Source Pulse Oximeter Pulse Oximetry (%) 94 Oxygen Delivery Method Room Air Intake Visit Reasons: EP-lt side neck & shoulder pain Intake Note: Patient here for left side of neck and shoulder pain that has been present for about 7 days. Patient Tobacco Use Status: Current everyday Tobacco user Allergies olanzapine [From ZYPREXA] Adverse Reaction (Intermediate, Verified 12/04/24 15:09) RLS symptoms clonidine Adverse Reaction (Verified 12/04/24 15:09) RLS diphenhydramine [From Benadryl] Adverse Reaction (Verified 12/04/24 15:09) RLS hydroxyzine Adverse Reaction (Verified 12/04/24 15:09) RLS melatonin Adverse Reaction (Verified 12/04/24 15:09) RLS atypical antipsychotics Adverse Reaction (Severe, Uncoded 12/04/24 15:09) This class appears to potentiate RLS/Akathesia Do you need a note to return to daycare/school/sports/work: No HPI HPI Comments History of Present Illness Details This is a 64-year-old female with a past medical history bipolar disorder, PTSD, osteoporosis and benzodiazepine abuse presenting for evaluation of pain on the left side of her neck that radiates to her left shoulder that has been present for the past 7 days. Patient denies any injury or trauma preceding the onset of her symptoms. Patient has taken Advil and Tylenol without relief of her discomfort. She denies any radiation of pain into her chest or upper back. [facility] Medical History (Updated 12/04/24 @ 15:41 by Nicole Correa PA-C) Nicotine dependence, cigarettes, uncomplicated Misuse of prescription only drugs 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 mutation [id number] ADHD Hypothyroidism Polysubstance use disorder Cannabis use disorder Cocaine use disorder Acute medication-induced akathisia Osteopenia of multiple sites Syncope Type II diabetes mellitus Fibromyalgia Benzodiazepine abuse RLS (restless legs syndrome) COPD (chronic obstructive pulmonary disease) HLD (hyperlipidemia) Surgical History History of vaginal hysterectomy History of cataract surgery Family History Mother CAD (coronary artery disease) Father Alcoholism Son Substance use disorder Son Substance use disorder Social History Household Members: Spouse Household Members Other:: son's girlfriend Housing: Apartment Do you presently have visiting nurse or other home services: No Unable to assess alcohol history related to: Unknown Alcohol intake: never Comment: Pt reports falling d/t excessive intake of Benzo's prior to admission Patient Tobacco Use Status: Current everyday Tobacco user Tobacco use type: Cigarette Cigarette Packs Per Day: 1 Cigarettes Per Day: 17 Years Smoked: 45 e-Cigarette/Vaping Use: Never Used Second Hand Smoke Exposure: No Substance Use Type: Marijuana Advance Directives Date on File: 06/05/24 service: No Current occupational status: unemployed Sexual orientation: Straight/Heterosexual Cognitive needs: No Hearing needs: No Vision needs: No Review of Systems Const All systems reviewed & are unremarkable except as noted in HPI and below Reports no additional complaints Eyes Reports no additional complaints ENT Reports no additional complaints and Reports neck pain (radiating to left shoulder) Card Reports no additional complaints Resp Reports no additional complaints GI Reports no additional complaints Reports no additional complaints Musc Reports neck pain (radiating to left shoulder) Skin/Breast Reports system reviewed and no additional complaints, except as documented Neuro Reports no additional complaints Psych Reports no additional complaints Endo Reports no additional complaints Anthony/Lymph Reports no additional complaints Aller/Immun Reports no additional complaints Physical Exam Vital Signs: Last Vital Signs Pulse 76 12/04/24 15:09 BP 92/56 L 12/04/24 15:09 Pulse Ox 94 12/04/24 15:09 Oxygen Delivery Method Room Air 12/04/24 15:09 Const General: cooperative, healthy appearing, comfortable, no acute distress, well developed, alert, awake and Physically active; No ill appearing Nutritional Appearance: well nourished Orientation/consciousness: patient oriented x3 Limitations: no limitations Back/Spine/Pelvis Cervical Spine: normal cervical lordosis, cervical ROM normal, cervical muscular tenderness (left extending to left SCM), No pain with cervical ROM, No Cervical spine tenderness and No step off deformity Skin General skin exam: no rashes or lesions noted Neuro General: patient oriented x3 Extrem Left upper extremity: normal to inspection and full ROM (passive ROM left shoulder intact) Psych Appearance: grossly normal Mental Status: mental status grossly normal Insight: Good insight present (Psych) Judgement: Good judgement present (Psych) Assessment & Plan Assessment & Plan (1) Cervical pain (neck): Comment: Cervical ROM intact and there is no C-spine tenderness on examination. Patient will be discharged home with anti-inflammatories and muscle relaxants. Code(s): M54.2 - Cervicalgia Plan: Naprosyn b.i.d., methocarbamol q.i.d. p.r.n.. Patient will follow up with primary care physician as needed if pain does not resolve with medication alone. Medications: New methocarbamol 750 mg PO Q8H 30 tabs 0RF naproxen (Naprosyn) 500 mg PO BID 20 tabs 0RF Coding Level of Care Code Est Pt Level 3 (09676) Diagnoses Cervical pain (neck) M54.2 Time Spent (min) 20
[2024-12-04 15:09] VITALS: BP 92/56; PULSE 76; O2SAT 94
--- OUTSIDE RECORDS SUMMARY | 2024-12-04 17:49 | XMS_ITS ---
Author Organization [facility] Address [address] [place] [phone] Care Team Providers Care Cylinder Tester Name Role Phone [facility] Primary Care Provider Karoline Mak Unavailable Encounters Encounter Location Date Provider Diagnosis [facility] [address] [place] [phone] 10/21/2023 Karoline Carcamo Plan Of Treatment No Information Progress Notes * Leigh BEEBEOB:1960 (64 yo F)Acc No.[id number]:10/21/2023 Case Management Patient:?Jaja BEEBE Provider:?Karoline Carcamo :1960???Age:62 Y???Sex:Female D ate:10/21/2023 Address:[address] [place], [place] [phone] Pcp:[facility] Subjective: * Chief Complaints: * ??? * Medical History:? Objective: Assessment: Plan: * Treatment: * Images: Billing Information: * Visit Code:? * Procedure Codes:? Care Plan Details* * Electronic signature of Jose Ramon Carcamo on 12/04/2024 at 05:49 PM EDT Sign off status: Pending * Provider:Shagufta Carcamo Date:? Generated for Jay Jay cintron/Morales/eTransmitting on:?12/04/2024 05:49 PM EDT
--- OUTSIDE RECORDS SUMMARY | 2024-12-04 17:49 | XMS_ITS | Encounter Summary ---
Author Organization [employer] Address [address] [facility] 7t [place] [address] Care Team Providers Care Biochemist Name Role Phone Unavailable Primary Care Provider Unavailabl e Reason for Visit * Reason Onset Date Comments insurance information/self pay 08/17/2024 Encounter Details Date Type Department Care Team (Late st Contact Info) Description 08/17/2024 Telephone [facility] [address] [place], [place] [phone] Kj Zurita, DMD [address] [place], [place] [phone] insurance information/self pay Social History Tobacco Use [...] 8:27 AM EST Patient states she has [employer] for insurance but does not have the [...]
--- OUTSIDE RECORDS SUMMARY | 2024-12-04 17:50 | XMS_ITS | Encounter Summary ---
Author Organization [employer] Address [address] [facility] 7t [place] [address] Care Team Providers Care Administrative Judge Name Role Phone Unavailable Primary Care Provider Unavailabl e Encounter Details Date Type Department Care Team (Latest Contact Info) Description 10/26/2018 Abstract [facility] CONVERSIONS Dental, Provider, DDS Social History [...]
--- OUTSIDE RECORDS SUMMARY | 2024-12-04 17:50 | XMS_ITS | Clinical Summary ---
Author Organization [employer] Address [address] [facility] 7t [place] [address] Care Team Providers Care Cemetery Counselor Name Role Phone Unavailable Primary Care Provider Unavailabl e Social History Tobacco Use Types Packs/Day Years [...] - PCV) 07/18/2020 07/18/2019 COVID-19 Vaccine ( season) 2024 06/19/2022, 07/29/2021, [...]
--- OUTSIDE RECORDS SUMMARY | 2024-12-04 17:50 | XMS_ITS ---
Author Organization [facility] Address [address] [place] [phone] Care Team Providers Care Acid Conditioner Name Role Phone [facility] Primary Care Provider Karoline Mak Unavailable [phone] Encounters Encounter Location Date Provider Diagnosis [facility] [address] [place] [address] [phone] 10/05/2023 Karoline Carcamo Plan Of Treatment No Information Progress Notes * Leigh BEEBEOB:1960 (62 yo F)Acc No.[id number]:10/05/2023 Case Management Patient:?Jaja Beebe Provider:?Karoline Carcamo :1960???Age:62 Y???Sex:Female D ate:10/05/2023 Address:[address] [place], [place] [phone] Pcp:[facility] Subjective: * Chief Complaints: * ??? 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 [employer] real [employer] housing applications were filled out client is still waiting for the proof of income verification. * Medical History:? Objective: Assessment: Plan: * Treatment: * Images: Billing Information: * Visit Code:? * Procedure Codes:? Care Plan Details* * Sign off status: Completed true * Provider:?Karoline Carcamo Date:? 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
--- OUTSIDE RECORDS SUMMARY | 2024-12-04 17:50 | XMS_ITS | Patient Health Record ---
Author Organization [facility] Address [address] [place], [place] [phone] Care Team Providers Care Powerplant Operator Name Role Phone [facility] Primary Care Provider Karoline Mak Unavailable Reason For Referral No Information Plan Of Treatment No Information Insurance Providers Payer Name Payer Address Payer Phone Subscriber Number Group Number Insured Name Patient Relationship to Insured Coverage Start Date Coverage End Date [place] Medicare Part [place] [employer] [address] [place] [phone] [id number] Jaja Beebe Self - patient is the insured 2 2
--- OUTSIDE RECORDS SUMMARY | 2024-12-04 17:50 | XMS_ITS ---
Author Organization [facility] Address [address] [place] [phone] Care Team Providers Care Lozenge Maker Name Role Phone [facility] Primary Care Provider Karoline Mak Unavailable Encounters Encounter Location Date Provider Diagnosis [facility] [address] [place] [phone] 10/13/2023 Karoline Carcamo Plan Of Treatment No Information Progress Notes * Leigh BEEBEOB:1960 (64 yo F)Acc No.[id number]:10/13/2023 Case Management Patient:?Jaja BEEBE Provider:?Karoline Carcamo :1960???Age:62 Y???Sex:Female D ate:10/13/2023 Address:[address] [place], [place] [phone] Pcp:[facility] Subjective: * Chief Complaints: * ??? * Medical History:? Objective: Assessment: Plan: * Treatment: * Images: Billing Information: * Visit Code:? * Procedure Codes:? Care Plan Details* * Electronic signature of Jose Ramon Carcamo on 12/04/2024 at 05:50 PM EDT Sign off status: Pending * Provider:Shagufta Carcamo Date:? Generated for Jay Jay cintron/Morales/eTransmitting on:?12/04/2024 05:50 PM EDT
== END 2024-12-04 16:08 | disposition home or self-care (01) ==
PROVIDERS: PCP Internal Medicine; Visit Provider Physician Assistant
DX: M54.2 Cervicalgia (principal)

== ENCOUNTER → 2024-12-04 14:55 | Outpatient (BNVA) | payer OTHER, SELFPAY | PROVIDERS: PCP Internal Medicine; Visit Provider Physician Assistant | DX: M54.2 Cervicalgia (principal); M25.512 Pain in left shoulder | CPT/HCPCS: 99212 ==

== ENCOUNTER 2024-12-11 12:59 | Outpatient (REF) | payer MEDICARE, SELFPAY ==
--- OUTSIDE RECORDS SUMMARY | 2024-12-11 14:54 | XMS_ITS | Clinical Summary ---
Author Organization Unknown Care Team Providers Care Mica Builder Name Role Phone LYNNE MORALES, NOREEN ROSENTHAL Unavailable Unavaila joe VIRAMONTES RN, ASHLEY Unavailable Unavailable Payers Payer Name Policy Type Policy Number Effective Date Expira tion Date [facility] ADV [id number] [facility] ONE CARE [place] PROGRAM [id number] [place] [id number] ON DEMAND MEDICARE - [facility] BILLING - [place]N [id number] Problems Condition Name Condition Details Condition Category Status Onset Date Resolution Date Last Treatment Date Treating Clinician Comments BIPOLAR DISORDER, UNSPECIFIED Active 12-03 00:00: 00 DEPRESSION, UNSPECIFIED Active 11-08 00:00: 00 Allergies, Adverse Reactions, Alerts Allergy Name Allergy Type Status Severity Reaction(s) Onset Date Inactive Date Treating Clinician Comments OLANZAPINE Propensity to adverse reactions Active 12-07 07:06: 38 CLONIDINE Propensity to adverse reactions Active 12-07 07:06: 46 BENADRYL Propensity to adverse reactions Active 12-07 07:06: 57 HYDROXYZINE Propensity to adverse reactions Active 12-07 07:07: 07 MELATONIN Propensity to adverse reactions Active 12-07 07:07: 29 Medications Ordered Medication Name Filled Medication Name Start Date Stop Date Current Medication? Ordering Clinician Indication Dosage Frequency Signature (SIG) Comments Components mirtazapine 7.5 mg tablet 11-11 00:00: 00 12-02 23:59 :00 No [id number] Per instruc tions AT BEDTIME Per instructio ns AT BEDTIME (route: oral) Med Classific ation: Central Nervous System Agents oxcarbazepi ne 300 mg tablet 11-11 00:00: 00 12-02 23:59 :00 No [id number] Per instruc tions TWICE A DAY Per instructio ns TWICE A DAY (route: oral) Med Classific ation: Central Nervous System Agents pramipexole 0.25 mg tablet 3-26 00:00: 00 12-02 23:59 :00 No [id number] Per instruc tions TWICE A DAY Per instructio ns TWICE A DAY (route: oral) Med Classific ation: Central Nervous System Agents atorvastati n 20 mg tablet 12-27 00:00: 00 12-02 23:59 :00 No [id number] 1 tablet BEDTIME 1 tablet BEDTIME (route: oral) Med Classific ation: Cardiovas cular Therapy Agents levothyroxi ne 50 mcg capsule 12-27 00:00: 00 12-02 23:59 :00 No [id number] 1 capsule DAILY 1 capsule DAILY (route: oral) Med Classific ation: Endocrine metformin 500 mg tablet 12-27 00:00: 00 12-02 23:59 :00 No [id number] 1 tablet 2 TIMES DAILY 1 tablet 2 TIMES DAILY (route: oral) Med Classific ation: Endocrine sertraline 50 mg tablet 12-27 00:00: 00 12-02 23:59 :00 No [id number] 1 tablet DAILY 1 tablet DAILY (route: oral) Med Classific ation: Central Nervous System Agents albuterol sulfate HFA 90 mcg/actuati on aerosol inhaler 12-06 00:00: 00 Yes [id number] 2 puff DIRECTED 2 puff DIRECTED (route: inhalation ) Med Classific ation: Respirato ry Therapy Agents Ambien 10 mg tablet 12-06 00:00: 00 Yes [id number] 1 tablet BEDTIME 1 tablet BEDTIME (route: oral) Med Classific ation: Central Nervous System Agents cholecalcif va (vitamin D3) 50 mcg (2,000 unit) tablet 12-06 00:00: 00 Yes [id number] 1 tablet DAILY 1 tablet DAILY (route: oral) Med Classific ation: Electroly te Balance-N utritiona l Products clonazepam 2 mg tablet 12-06 00:00: 00 Yes [id number] 1 tablet BEDTIME 1 tablet BEDTIME (route: oral) Med Classific ation: Central Nervous System Agents Colace 100 mg capsule 12-06 00:00: 00 Yes [id number] 1 capsule 2 TIMES DAILY 1 capsule 2 TIMES DAILY (route: oral) Med Classific ation: Gastroint estinal Therapy Agents divalproex 125 mg capsule,del ayed release sprinkle 12-06 00:00: 00 Yes [id number] 1 capsule 2 TIMES DAILY 1 capsule 2 TIMES DAILY (route: oral) Med Classific ation: Central Nervous System Agents ibuprofen 200 mg tablet 12-06 00:00: 00 Yes [id number] 2 tablet EVERY 6 HOURS 2 tablet EVERY 6 HOURS (route: oral) Med Classific ation: Analgesic , Anti-infl ammatory or Antipyret ic levothyroxi ne 50 mcg tablet 12-06 00:00: 00 Yes [id number] 1 tablet EVERY AM 1 tablet EVERY AM (route: oral) Med Classific ation: Endocrine Lidocaine Pain Relief 4 % topical patch 12-06 00:00: 00 Yes [id number] 1 adhesiv e patch, medicat ed DAILY 1 adhesive patch, medicated DAILY (route: topical) Med Classific ation: Dermatolo gical lithium carbonate 150 mg capsule 12-06 00:00: 00 Yes [id number] 1 capsule DAILY 1 capsule DAILY (route: oral) Med Classific ation: Central Nervous System Agents methocarbam ol 500 mg tablet 12-06 00:00: 00 Yes [id number] 1 tablet EVERY 8 HOURS 1 tablet EVERY 8 HOURS (route: oral) Med Classific ation: Locomotor System modafinil 200 mg tablet 12-06 00:00: 00 Yes [id number] 1 tablet EVERY AM 1 tablet EVERY AM (route: oral) Med Classific ation: Central Nervous System Agents naproxen 500 mg tablet 12-06 00:00: 00 Yes [id number] 1 tablet 2 TIMES DAILY 1 tablet 2 TIMES DAILY (route: oral) Med Classific ation: Analgesic , Anti-infl ammatory or Antipyret ic pramipexole 0.5 mg tablet 12-06 00:00: 00 Yes [id number] 1 tablet 3 TIMES DAILY 1 tablet 3 TIMES DAILY (route: oral) Med Classific ation: Central Nervous System Agents sodium chloride 0.65 % nasal spray aerosol 12-06 00:00: 00 Yes [id number] 1 spray DIRECTED 1 spray DIRECTED (route: nasal) Med Classific ation: Respirato ry Therapy Agents rosuvastati n 5 mg tablet 12-06 00:00: 00 Yes [id number] 1 tablet EVERY OTHER DAY 1 tablet EVERY OTHER DAY (route: oral) Med Classific ation: Cardiovas cular Therapy Agents Vital Signs Vital Name Observation Time Observation Value Commen ts BMI (%) 2024-12-07 06:50:01.000 20 kg/m2 Height 2024-12-07 06:49:51.000 61 [in_us] Pulse 2024-12-06 13:11:00.000 78 /min O2 Saturation (%) 2024-12-06 13:16:00.000 96 % Respirations 2024-12-06 13:11:00.000 20 /min Weight (lbs) 2024-12-07 06:50:01.000 106 [lb_av] Systolic Blood Pressure 2024-12-06 13:11:00.000 147 mm [Hg] Diastolic Blood Pressure 2024-12-06 13:11:00.000 83 mm [Hg] Plan of Treatment Planned Activity Planned Date Details Comments Future Scheduled Test SKILLED NU RSE TO EVALUATE PATIENT, IDENTIFY PRIMARY AND CO-MORBID CONDITIONS CODED PER CODING GUIDELINES, AND DEVELOP PATIENT SPECIFIC PLAN OF CARE THAT INCLUDES PATIENT GOAL FOR HOME HEALTH. [code = SKILLED NURSE TO EVALUATE PATIENT, IDENTIFY PRIMARY AND CO-MORBID CONDITIONS CODED PER CODING GUIDELINES, AND DEVELOP PATIENT SPECIFIC PLAN OF CARE THAT INCLUDES PATIENT GOAL FOR HOME HEALTH.] Future Scheduled Test SKILLED NU RSE TO O/A OF PATIENTS MENTAL/BEHAVIORAL STATUS, ASSESS VITAL SIGNS 1WK8 ALLOW 2 PRNS FOR MEDICATION MANAGEMENT. [code = SKILLED NURSE TO O/A OF PATIENTS MENTAL/BEHAVIORAL STATUS, ASSESS VITAL SIGNS 1WK8 ALLOW 2 PRNS FOR MEDICATION MANAGEMENT.] Future Scheduled Test SKILLED NU RSE FOR O/A OF GENERAL HEALTH STATUS OF PAIN, CARDIAC, RESPIRATORY, GASTROINTESTINAL, GENITOURINARY, SKIN, NEUROLOGIC, ENDOCRINE SYSTEMS TO IDENTIFY CHANGES ASSOCIATED WITH EXACERBATION FOR EARLY INTERVENTION OF COMPLICATIONS 1WK8 [code = SKILLED NURSE FOR O/A OF GENERAL HEALTH STATUS OF PAIN, CARDIAC, RESPIRATORY, GASTROINTESTINAL, GENITOURINARY, SKIN, NEUROLOGIC, ENDOCRINE SYSTEMS TO IDENTIFY CHANGES ASSOCIATED WITH EXACERBATION FOR EARLY INTERVENTION OF COMPLICATIONS 1WK8] Future Scheduled Test SKILLED NU RSE TO REVIEW PATIENT MEDICATIONS. INSTRUCT PATIENT/CAREGIVER ON MONITORING OF EFFECTIVENESS, ADVERSE DRUG REACTIONS, SIDE EFFECTS OF ALL MEDICATIONS (PRESCRIPTION/-OTC), AND HOW AND WHEN TO REPORT PROBLEMS. [code = SKILLED NURSE TO REVIEW PATIENT MEDICATIONS. INSTRUCT PATIENT/CAREGIVER ON MONITORING OF EFFECTIVENESS, ADVERSE DRUG REACTIONS, SIDE EFFECTS OF ALL MEDICATIONS (PRESCRIPTION/-OTC), AND HOW AND WHEN TO REPORT PROBLEMS.] Future Scheduled Test SKILLED NU RSE FOR [...] COPING SKILLS TO MANAGE ANXIETY AND MAINTAIN SAFETY. [code = SKILLED NURSE FOR O/A AND SKILLED TEACHING OF COPING SKILLS TO MANAGE ANXIETY AND MAINTAIN SAFETY.] Future Scheduled Test SKILLED NU RSE FOR O/A OF ALTERED MOOD [code = SKILLED NURSE FOR O/A OF ALTERED MOOD] Future Scheduled Test SKILLED NU RSE FOR O/A OF CLIENT'S SLEEP PATTERNS. MAY TEACH INTERVENTIONS R/T ACQUIRING IMPROVED REST [code = SKILLED NURSE FOR O/A OF CLIENT'S SLEEP PATTERNS. MAY TEACH INTERVENTIONS R/T ACQUIRING IMPROVED REST] Future Scheduled Test SKILLED NU RSE FOR O/A, TEACHING AND MANAGEMENT OF UTI PREVENTION FOR EARLY IDENTIFICATION OF EXACERBATION OF DISEASE PROCESS [code = SKILLED NURSE FOR O/A, TEACHING AND MANAGEMENT OF UTI PREVENTION FOR EARLY IDENTIFICATION OF EXACERBATION OF DISEASE PROCESS] Future Scheduled Test SKILLED NU RSE WILL MAINTAIN SITUATIONAL AWARENESS FOR SAFETY AND WILL NOTIFY CLINICAL HEAD OF ETHICS AND COMPLIANCE AND PHYSICIAN/PROVIDER WITH ANY CHANGE IN CONDITION. [code = SKILLED NURSE WILL MAINTAIN SITUATIONAL AWARENESS FOR SAFETY AND WILL NOTIFY CLINICAL HEAD OF ETHICS AND COMPLIANCE AND PHYSICIAN/PROVIDER WITH ANY CHANGE IN CONDITION.] Future Scheduled Test SKILLED NU RSE TO ASSESS PATIENTS PSYCHOSOCIAL STATUS TO IDENTIFY POTENTIAL ISSUES THAT MAY COMPLICATE THE PROVISION OF THE PLAN OF CARE INCLUDING THE PATIENTS ABILITY TO ACCESS COMMUNITY RESOURCES AND PSYCHOSOCIAL SUPPORT SERVICES. [code = SKILLED NURSE TO ASSESS PATIENTS PSYCHOSOCIAL STATUS TO IDENTIFY POTENTIAL ISSUES THAT MAY COMPLICATE THE PROVISION OF THE PLAN OF CARE INCLUDING THE PATIENTS ABILITY TO ACCESS COMMUNITY RESOURCES AND PSYCHOSOCIAL SUPPORT SERVICES.] Goal Patient Goal - T O GET MEDICATIONS I AM ON MANAGED AND BALANCE Goal Provider Goal - A PLAN OF CARE WILL BE ESTABLISHED THAT MEETS PATIENT'S ALF NEEDS AND INCLUDES PATIENT GOAL FOR HOME HEALTH. Goal Provider Goal - ALTERED MENTAL/BEHAVIORAL STATUS WILL BE IDENTIFIED PROMPTLY AND INTERVENTION INITIATED QUICKLY TO MINIMIZE ASSOCIATED RISKS THROUGHOUT CERTIFICATION PERIOD. Goal Provider Goal - CHANGE IN GENERAL HEALTH STATUS WILL BE IDENTIFIED AND REPORTED TO PHYSICIAN FOR PROMPT INTERVENTION TO MINIMIZE ASSOCIATED RISKS THROUGHOUT CERTIFICATION PERIOD. Goal Provider Goal - PATIENT/CAREGIVER WILL VERBALIZE UNDERSTANDING OF EDUCATION PROVIDED ON MEDICATIONS BY THE END OF THE CERTIFICATION PERIOD. Goal Provider Goal - PATIENT WILL REMAIN SAFE WITHOUT DECOMPENSATION IN DEPRESSIVE CONDITION, WHILE MAINTAINING OPTIMAL LEVEL OF MENTAL HEALTH AND WELL BEING THROUGHOUT CERTIFICATION PERIOD. Goal Provider Goal - PATIENT WILL BE ABLE TO PERFORM DAILY FUNCTIONS AND HAVE OPTIMAL IMPROVEMENT IN LEVEL OF ANXIETY THROUGHOUT CERTIFICATION PERIOD. Goal Provider Goal - PATIENT WILL BE ABLE TO PERFORM DAILY FUNCTIONS AND HAVE OPTIMAL IMPROVEMENT IN MOOD STABILITY THROUGHOUT CERTIFICATION PERIOD. Goal Provider Goal - PATIENT WILL REPORT AT LEAST 6-8 HOURS A NIGHT, RESTFUL SLEEP PATTERNS ACHIEVED USING THERAPEUTIC INTERVENTIONS BEFORE THE END OF THE CERTIFICATION PERIOD. Goal Provider Goal - PATIENT/CAREGIVER WILL VERBALIZE UNDERSTANDING OF UTI PREVENTION GENITOURINARY DISEASE PROCESS, AND EXACERBATIONS OF GENITOURINARY DISEASE WILL BE PROMPTLY IDENTIFIED FOR EARLY INTERVENTION THROUGHOUT THE CERTIFICATION PERIOD. Goal Provider Goal - PATIENT WILL REMAIN SAFE IN THE COMMUNITY AND WILL BE FREE OF DANGER TO SELF AND OTHERS THROUGHOUT THE CERTIFICATION PERIOD. Goal Provider Goal - PSYCHOSOCIAL NEEDS WILL BE IDENTIFIED AND PLAN IMPLEMENTED TO MINIMIZE RISK THROUGHOUT CERTIFICATION PERIOD. Encounters Start Date/Time End Date/Time Encounter Type Admission Type Attending [facility] Care Department Encounter ID Discharge Date Discharge Status Discharge Condition Discharge Reason Percent Goals Met 2024-12-06 00:00:00 2025-02-03 00:00:00 Outpatient ASHLEY MURDOCK [facility] [id number] 80.00
--- OUTSIDE RECORDS SUMMARY | 2024-12-11 14:55 | XMS_ITS | Clinical Summary ---
Author Organization Unknown Care Team Providers Care Bag Loader Machine Operator Name Role Phone LYNNE MORALES, NOREEN ROSENTHAL Unavailable Unavaila joe VIRAMONTES RN, ASHLEY Unavailable Unavailable Payers Payer Name Policy Type Policy Number Effective Date Expira tion Date [facility] ADV [id number] [facility] ONE CARE [place] [id number] [place] [id number] ON DEMAND MEDICARE - [facility] BILL[facility] - ABN [id number] Problems Condition Name Condition Details Condition Category [...] 11-11 00:00: 00 12-02 23:59 :00 No [id number] Per instruc tions AT BEDTIME Per instructio ns AT BEDTIME (route: oral) Med Classific ation: Central Nervous System Agents oxcarbazepi ne 300 mg tablet 11-11 00:00: 00 12-02 23:59 :00 No [id number] Per instruc tions TWICE A DAY Per instructio ns TWICE A DAY (route: oral) Med Classific ation: Central Nervous System Agents pramipexole 0.25 mg tablet 3-26 00:00: 00 12-02 23:59 :00 No [id number] Per instruc tions TWICE A DAY Per instructio ns TWICE A DAY (route: oral) Med Classific ation: Central Nervous System Agents atorvastati n 20 mg tablet 12-27 00:00: 00 12-02 23:59 :00 No [id number] 1 tablet BEDTIME 1 tablet BEDTIME (route: oral) Med Classific ation: Cardiovas cular Therapy Agents levothyroxi ne 50 mcg capsule 12-27 00:00: 00 12-02 23:59 :00 No [id number] 1 capsule DAILY 1 capsule DAILY (route: oral) Med Classific ation: Endocrine metformin 500 mg tablet 12-27 00:00: 00 12-02 23:59 :00 No [id number] 1 tablet 2 TIMES DAILY 1 tablet 2 TIMES DAILY (route: oral) Med Classific ation: Endocrine sertraline 50 mg tablet 12-27 00:00: 00 12-02 23:59 :00 No [id number] 1 tablet DAILY 1 tablet DAILY (route: oral) Med Classific ation: Central Nervous System Agents albuterol sulfate HFA 90 mcg/actuati on aerosol inhaler 12-06 00:00: 00 Yes [id number] 2 puff DIRECTED 2 puff DIRECTED (route: inhalation ) Med Classific ation: Respirato ry Therapy Agents Ambien 10 mg tablet 12-06 00:00: 00 Yes [id number] 1 tablet BEDTIME 1 tablet BEDTIME (route: oral) Med Classific ation: Central Nervous System Agents cholecalcif va (vitamin D3) 50 mcg (2,000 unit) tablet 12-06 00:00: 00 Yes [id number] 1 tablet DAILY 1 tablet DAILY (route: oral) Med Classific ation: Electroly te Balance-N utritiona l Products clonazepam 2 mg tablet 12-06 00:00: 00 Yes [id number] 1 tablet BEDTIME 1 tablet BEDTIME (route: oral) Med Classific ation: Central Nervous System Agents Colace 100 mg capsule 12-06 00:00: 00 Yes [id number] 1 capsule 2 TIMES DAILY 1 capsule 2 TIMES DAILY (route: oral) Med Classific ation: Gastroint estinal Therapy Agents divalproex 125 mg capsule,del ayed release sprinkle 12-06 00:00: 00 Yes [id number] 1 capsule 2 TIMES DAILY 1 capsule 2 TIMES DAILY (route: oral) Med Classific ation: Central Nervous System Agents ibuprofen 200 mg tablet 12-06 00:00: 00 Yes [id number] 2 tablet EVERY 6 HOURS 2 tablet EVERY 6 HOURS (route: oral) Med Classific ation: Analgesic , Anti-infl ammatory or Antipyret ic levothyroxi ne 50 mcg tablet 12-06 00:00: 00 Yes [id number] 1 tablet EVERY AM 1 tablet EVERY AM (route: oral) Med Classific ation: Endocrine Lidocaine Pain Relief 4 % topical patch 12-06 00:00: 00 Yes [id number] 1 adhesiv e patch, medicat ed DAILY 1 adhesive patch, medicated DAILY (route: topical) Med Classific ation: Dermatolo gical lithium carbonate 150 mg capsule 12-06 00:00: 00 Yes [id number] 1 capsule DAILY 1 capsule DAILY (route: oral) Med Classific ation: Central Nervous System Agents methocarbam ol 500 mg tablet 12-06 00:00: 00 Yes [id number] 1 tablet EVERY 8 HOURS 1 tablet EVERY 8 HOURS (route: oral) Med Classific ation: Locomotor System modafinil 200 mg tablet 12-06 00:00: 00 Yes [id number] 1 tablet EVERY AM 1 tablet EVERY AM (route: oral) Med Classific ation: Central Nervous System Agents naproxen 500 mg tablet 12-06 00:00: 00 Yes [id number] 1 tablet 2 TIMES DAILY 1 tablet 2 TIMES DAILY (route: oral) Med Classific ation: Analgesic , Anti-infl ammatory or Antipyret ic pramipexole 0.5 mg tablet 12-06 00:00: 00 Yes [id number] 1 tablet 3 TIMES DAILY 1 tablet 3 TIMES DAILY (route: oral) Med Classific ation: Central Nervous System Agents sodium chloride 0.65 % nasal spray aerosol 12-06 00:00: 00 Yes [id number] 1 spray DIRECTED 1 spray DIRECTED (route: nasal) Med Classific ation: Respirato ry Therapy Agents rosuvastati n 5 mg tablet 12-06 00:00: 00 Yes [id number] 1 tablet EVERY OTHER DAY 1 tablet [...] AWARENESS FOR SAFETY AND WILL NOTIFY CLINICAL TIN WHIZ MACHINE OPERATOR AND PHYSICIAN/PROVIDER WITH ANY CHANGE IN CONDITION. [code = SKILLED NURSE WILL MAINTAIN SITUATIONAL AWARENESS FOR SAFETY AND WILL NOTIFY CLINICAL TIN WHIZ MACHINE OPERATOR AND PHYSICIAN/PROVIDER WITH ANY CHANGE IN CONDITION.] [...] CARE WILL BE ESTABLISHED THAT MEETS PATIENT'S FDC NEEDS AND INCLUDES PATIENT GOAL FOR HOME [...] End Date/Time Encounter Type Admission Type Attending [facility] Care Facility Care Department Encounter ID Discharge Date Discharge Status Discharge Condition Discharge Reason Percent Goals Met 2024-12-06 00:00:00 2025-02-03 00:00:00 Outpatient ASHLEY MURDOCK [facility] [id number] 80.00
== END 2024-12-11 13:00 | disposition home or self-care (01) ==
LOC: HO.HMGCLDS 12:59
PROVIDERS: PCP Internal Medicine; Visit Provider Internal Medicine
DX: Z13.89 Encounter for screening for other disorder (principal)

== ENCOUNTER 2024-12-13 15:00 | Outpatient (REF) | payer MEDICARE, SELFPAY ==
[2024-12-13 16:30] LABS: Appearance Urine Clear; Color Urine Dark Yellow; Glucose Urine UA Negative (Negative); Leukocyte Esterase Urine Small (1+) (Negative); Nitrite Urine Negative (Negative); Specific Gravity - Urine 1.025 (1.005-1.025); UMIC TRIGGER UACC YES; Urine Blood Negative (Negative); Urine Ketones Negative (Negative); Urine Protein 100 (2+) mg/dL (Neg-Trace)
[2024-12-13 16:33] LABS: Bacteria Urine Trace (None Seen); Hyaline Casts Urine 0-2 /LPF (0-2); RBC Urine 0-2 /HPF (0-2); Squamous Epithelial Cell Urine 0-2 /HPF (0-2); UACC Culture Trigger YES; WBC Urine 21-50 /HPF (0-5)
[2024-12-13 16:52] LABS: Microalbum/Creatinine Ratio Ur 113.7 ug/mg cr (<30)
--- OUTSIDE RECORDS SUMMARY | 2024-12-13 17:12 | XMS_ITS | Encounter Summary ---
Author Organization [employer] Address [address] [facility] [address] [place] [address] Care Team Providers Care Sign Installer Name Role Phone Unavailable Primary Care Provider Unavailabl e Encounter Details Date Type Department Care Team (Latest Contact Info) Description 10/26/2018 Abstract [facility] CONVERSIONS Dental, Provider, DDS Social History [...]
--- OUTSIDE RECORDS SUMMARY | 2024-12-13 17:12 | XMS_ITS | Encounter Summary ---
Author Organization [employer] Address [address] [facility] [address] [place] [address] Care Team Providers Care Internal Review And Audit Compliance Name Role Phone Unavailable Primary Care Provider Unavailabl e Reason for Visit * Reason Onset Date Comments insurance information/self pay 08/17/2024 Encounter Details Date Type Department Care Team (Late st Contact Info) Description 08/17/2024 Telephone [facility] [address], [place] [phone] Kj Zurita, DMD [address], [place] [phone] insurance information/self pay Social History Tobacco Use [...] 8:27 AM EST Patient states she has [employer] for insurance but does not have the [...]
--- OUTSIDE RECORDS SUMMARY | 2024-12-13 17:12 | XMS_ITS | Clinical Summary ---
Author Organization Unknown Care Team Providers Care Soubrette Name Role Phone LYNNE MORALES, NOREEN ROSENTHAL Unavailable Unavaila joe VIRAMONTES RN, ASHLEY Unavailable Unavailable Payers Payer Name Policy Type Policy Number Effective Date Expira tion Date [facility] [id number] [facility] ONE CARE [place] [id number] [place] [id number] ON DEMAND MEDICARE - [facility] BILLING - ABN [id number] Problems Condition Name Condition Details Condition Category [...] 11-11 00:00: 00 12-02 23:59 :00 No [id number] Per instruc tions AT BEDTIME Per instructio ns AT BEDTIME (route: oral) Med Classific ation: Central Nervous System Agents oxcarbazepi ne 300 mg tablet 11-11 00:00: 00 12-02 23:59 :00 No [id number] Per instruc tions TWICE A DAY Per instructio ns TWICE A DAY (route: oral) Med Classific ation: Central Nervous System Agents pramipexole 0.25 mg tablet 3-26 00:00: 00 12-02 23:59 :00 No [id number] Per instruc tions TWICE A DAY Per instructio ns TWICE A DAY (route: oral) Med Classific ation: Central Nervous System Agents atorvastati n 20 mg tablet 12-27 00:00: 00 12-02 23:59 :00 No [id number] 1 tablet BEDTIME 1 tablet BEDTIME (route: oral) Med Classific ation: Cardiovas cular Therapy Agents levothyroxi ne 50 mcg capsule 12-27 00:00: 00 12-02 23:59 :00 No [id number] 1 capsule DAILY 1 capsule DAILY (route: oral) Med Classific ation: Endocrine metformin 500 mg tablet 12-27 00:00: 00 12-02 23:59 :00 No [id number] 1 tablet 2 TIMES DAILY 1 tablet 2 TIMES DAILY (route: oral) Med Classific ation: Endocrine sertraline 50 mg tablet 12-27 00:00: 00 12-02 23:59 :00 No [id number] 1 tablet DAILY 1 tablet DAILY (route: oral) Med Classific ation: Central Nervous System Agents albuterol sulfate HFA 90 mcg/actuati on aerosol inhaler 12-06 00:00: 00 Yes [id number] 2 puff DIRECTED 2 puff DIRECTED (route: inhalation ) Med Classific ation: Respirato ry Therapy Agents Ambien 10 mg tablet 12-06 00:00: 00 Yes [id number] 1 tablet BEDTIME 1 tablet BEDTIME (route: oral) Med Classific ation: Central Nervous System Agents cholecalcif va (vitamin D3) 50 mcg (2,000 unit) tablet 12-06 00:00: 00 Yes [id number] 1 tablet DAILY 1 tablet DAILY (route: oral) Med Classific ation: Electroly te Balance-N utritiona l Products clonazepam 2 mg tablet 12-06 00:00: 00 Yes [id number] 1 tablet BEDTIME 1 tablet BEDTIME (route: oral) Med Classific ation: Central Nervous System Agents Colace 100 mg capsule 12-06 00:00: 00 Yes [id number] 1 capsule 2 TIMES DAILY 1 capsule 2 TIMES DAILY (route: oral) Med Classific ation: Gastroint estinal Therapy Agents divalproex 125 mg capsule,del ayed release sprinkle 12-06 00:00: 00 Yes [id number] 1 capsule 2 TIMES DAILY 1 capsule 2 TIMES DAILY (route: oral) Med Classific ation: Central Nervous System Agents ibuprofen 200 mg tablet 12-06 00:00: 00 Yes [id number] 2 tablet EVERY 6 HOURS 2 tablet EVERY 6 HOURS (route: oral) Med Classific ation: Analgesic , Anti-infl ammatory or Antipyret ic levothyroxi ne 50 mcg tablet 12-06 00:00: 00 Yes [id number] 1 tablet EVERY AM 1 tablet EVERY AM (route: oral) Med Classific ation: Endocrine Lidocaine Pain Relief 4 % topical patch 12-06 00:00: 00 Yes [id number] 1 adhesiv e patch, medicat ed DAILY 1 adhesive patch, medicated DAILY (route: topical) Med Classific ation: Dermatolo gical lithium carbonate 150 mg capsule 12-06 00:00: 00 Yes [id number] 1 capsule DAILY 1 capsule DAILY (route: oral) Med Classific ation: Central Nervous System Agents methocarbam ol 500 mg tablet 12-06 00:00: 00 Yes [id number] 1 tablet EVERY 8 HOURS 1 tablet EVERY 8 HOURS (route: oral) Med Classific ation: Locomotor System modafinil 200 mg tablet 12-06 00:00: 00 Yes [id number] 1 tablet EVERY AM 1 tablet EVERY AM (route: oral) Med Classific ation: Central Nervous System Agents naproxen 500 mg tablet 12-06 00:00: 00 Yes [id number] 1 tablet 2 TIMES DAILY 1 tablet 2 TIMES DAILY (route: oral) Med Classific ation: Analgesic , Anti-infl ammatory or Antipyret ic pramipexole 0.5 mg tablet 12-06 00:00: 00 Yes [id number] 1 tablet 3 TIMES DAILY 1 tablet 3 TIMES DAILY (route: oral) Med Classific ation: Central Nervous System Agents sodium chloride 0.65 % nasal spray aerosol 12-06 00:00: 00 Yes [id number] 1 spray DIRECTED 1 spray DIRECTED (route: nasal) Med Classific ation: Respirato ry Therapy Agents rosuvastati n 5 mg tablet 12-06 00:00: 00 Yes [id number] 1 tablet EVERY OTHER DAY 1 tablet [...] AWARENESS FOR SAFETY AND WILL NOTIFY CLINICAL GASOLINE FINISHER AND PHYSICIAN/PROVIDER WITH ANY CHANGE IN CONDITION. [code = SKILLED NURSE WILL MAINTAIN SITUATIONAL AWARENESS FOR SAFETY AND WILL NOTIFY CLINICAL GASOLINE FINISHER AND PHYSICIAN/PROVIDER WITH ANY CHANGE IN CONDITION.] [...] CARE WILL BE ESTABLISHED THAT MEETS PATIENT'S MCC NEEDS AND INCLUDES PATIENT GOAL FOR HOME [...] End Date/Time Encounter Type Admission Type Attending [facility] Care Facility Care Department Encounter ID Discharge Date Discharge Status Discharge Condition Discharge Reason Percent Goals Met 2024-12-06 00:00:00 2025-02-03 00:00:00 Outpatient ASHLEY MURDOCK [facility] [id number] 80.00
--- OUTSIDE RECORDS SUMMARY | 2024-12-13 17:12 | XMS_ITS | Clinical Summary ---
Author Organization Unknown Care Team Providers Care Electric Razor Mechanic Name Role Phone LYNNE MORALES, NOREEN ROSENTHAL Unavailable Unavaila joe VIRAMONTES RN, ASHLEY Unavailable Unavailable Payers Payer Name Policy Type Policy Number Effective Date Expira tion Date [facility] ADV [id number] [facility] ONE CARE [place] [id number] [place] [id number] ON DEMAND MEDICARE - [facility] BILLING - ABN [id number] Problems Condition Name Condition Details Condition Category [...] 11-11 00:00: 00 12-02 23:59 :00 No [id number] Per instruc tions AT BEDTIME Per instructio ns AT BEDTIME (route: oral) Med Classific ation: Central Nervous System Agents oxcarbazepi ne 300 mg tablet 11-11 00:00: 00 12-02 23:59 :00 No [id number] Per instruc tions TWICE A DAY Per instructio ns TWICE A DAY (route: oral) Med Classific ation: Central Nervous System Agents pramipexole 0.25 mg tablet 3-26 00:00: 00 12-02 23:59 :00 No [id number] Per instruc tions TWICE A DAY Per instructio ns TWICE A DAY (route: oral) Med Classific ation: Central Nervous System Agents atorvastati n 20 mg tablet 12-27 00:00: 00 12-02 23:59 :00 No [id number] 1 tablet BEDTIME 1 tablet BEDTIME (route: oral) Med Classific ation: Cardiovas cular Therapy Agents levothyroxi ne 50 mcg capsule 12-27 00:00: 00 12-02 23:59 :00 No [id number] 1 capsule DAILY 1 capsule DAILY (route: oral) Med Classific ation: Endocrine metformin 500 mg tablet 12-27 00:00: 00 12-02 23:59 :00 No [id number] 1 tablet 2 TIMES DAILY 1 tablet 2 TIMES DAILY (route: oral) Med Classific ation: Endocrine sertraline 50 mg tablet 12-27 00:00: 00 12-02 23:59 :00 No [id number] 1 tablet DAILY 1 tablet DAILY (route: oral) Med Classific ation: Central Nervous System Agents albuterol sulfate HFA 90 mcg/actuati on aerosol inhaler 12-06 00:00: 00 Yes [id number] 2 puff DIRECTED 2 puff DIRECTED (route: inhalation ) Med Classific ation: Respirato ry Therapy Agents Ambien 10 mg tablet 12-06 00:00: 00 Yes [id number] 1 tablet BEDTIME 1 tablet BEDTIME (route: oral) Med Classific ation: Central Nervous System Agents cholecalcif va (vitamin D3) 50 mcg (2,000 unit) tablet 12-06 00:00: 00 Yes [id number] 1 tablet DAILY 1 tablet DAILY (route: oral) Med Classific ation: Electroly te Balance-N utritiona l Products clonazepam 2 mg tablet 12-06 00:00: 00 Yes [id number] 1 tablet BEDTIME 1 tablet BEDTIME (route: oral) Med Classific ation: Central Nervous System Agents Colace 100 mg capsule 12-06 00:00: 00 Yes [id number] 1 capsule 2 TIMES DAILY 1 capsule 2 TIMES DAILY (route: oral) Med Classific ation: Gastroint estinal Therapy Agents divalproex 125 mg capsule,del ayed release sprinkle 12-06 00:00: 00 Yes [id number] 1 capsule 2 TIMES DAILY 1 capsule 2 TIMES DAILY (route: oral) Med Classific ation: Central Nervous System Agents ibuprofen 200 mg tablet 12-06 00:00: 00 Yes [id number] 2 tablet EVERY 6 HOURS 2 tablet EVERY 6 HOURS (route: oral) Med Classific ation: Analgesic , Anti-infl ammatory or Antipyret ic levothyroxi ne 50 mcg tablet 12-06 00:00: 00 Yes [id number] 1 tablet EVERY AM 1 tablet EVERY AM (route: oral) Med Classific ation: Endocrine Lidocaine Pain Relief 4 % topical patch 12-06 00:00: 00 Yes [id number] 1 adhesiv e patch, medicat ed DAILY 1 adhesive patch, medicated DAILY (route: topical) Med Classific ation: Dermatolo gical lithium carbonate 150 mg capsule 12-06 00:00: 00 Yes [id number] 1 capsule DAILY 1 capsule DAILY (route: oral) Med Classific ation: Central Nervous System Agents methocarbam ol 500 mg tablet 12-06 00:00: 00 Yes [id number] 1 tablet EVERY 8 HOURS 1 tablet EVERY 8 HOURS (route: oral) Med Classific ation: Locomotor System modafinil 200 mg tablet 12-06 00:00: 00 Yes [id number] 1 tablet EVERY AM 1 tablet EVERY AM (route: oral) Med Classific ation: Central Nervous System Agents naproxen 500 mg tablet 12-06 00:00: 00 Yes [id number] 1 tablet 2 TIMES DAILY 1 tablet 2 TIMES DAILY (route: oral) Med Classific ation: Analgesic , Anti-infl ammatory or Antipyret ic pramipexole 0.5 mg tablet 12-06 00:00: 00 Yes [id number] 1 tablet 3 TIMES DAILY 1 tablet 3 TIMES DAILY (route: oral) Med Classific ation: Central Nervous System Agents sodium chloride 0.65 % nasal spray aerosol 12-06 00:00: 00 Yes [id number] 1 spray DIRECTED 1 spray DIRECTED (route: nasal) Med Classific ation: Respirato ry Therapy Agents rosuvastati n 5 mg tablet 12-06 00:00: 00 Yes [id number] 1 tablet EVERY OTHER DAY 1 tablet [...] AWARENESS FOR SAFETY AND WILL NOTIFY CLINICAL BASS FISHER AND PHYSICIAN/PROVIDER WITH ANY CHANGE IN CONDITION. [code = SKILLED NURSE WILL MAINTAIN SITUATIONAL AWARENESS FOR SAFETY AND WILL NOTIFY CLINICAL BASS FISHER AND PHYSICIAN/PROVIDER WITH ANY CHANGE IN CONDITION.] [...] CARE WILL BE ESTABLISHED THAT MEETS PATIENT'S ASSISTED NEEDS AND INCLUDES PATIENT GOAL FOR HOME [...] End Date/Time Encounter Type Admission Type Attending [facility] Care Facility Care Department Encounter ID Discharge Date Discharge Status Discharge Condition Discharge Reason Percent Goals Met 2024-12-06 00:00:00 2025-02-03 00:00:00 Outpatient ASHLEY MURDOCK [facility] [id number] 80.00
--- OUTSIDE RECORDS SUMMARY | 2024-12-13 17:12 | XMS_ITS | Clinical Summary ---
Author Organization [employer] Address [address] [place] [address] Care Team Providers Care Carpenter/Labor Name Role Phone Unavailable Primary Care Provider [...]
== END 2024-12-13 15:01 | disposition home or self-care (01) ==
LOC: HO.HMGCLNP 15:00
PROVIDERS: PCP Internal Medicine; Visit Provider Internal Medicine
DX: E78.5 Hyperlipidemia, unspecified (principal); M81.0 Age-related osteoporosis without current pathological fracture; E03.9 Hypothyroidism, unspecified; E11.9 Type 2 diabetes mellitus without complications; R34 Anuria and oliguria; R35.0 Frequency of micturition
CPT/HCPCS: 81001; 82043; 82570; 87086; 87088; 87186

== ENCOUNTER → 2024-12-27 13:09 | Outpatient (BNVA) | payer MEDICARE, SELFPAY | PROVIDERS: PCP Internal Medicine | DX: Z13.89 Encounter for screening for other disorder (principal) ==

== ENCOUNTER 2025-02-28 06:18 | Outpatient (REF) | payer OTHER, SELFPAY ==
--- OUTSIDE RECORDS SUMMARY | 2023-10-21 07:00 | XMS_ITS ---
Author Organization [facility] Address [address] [place] [phone] Care Team Providers Care Cycle Touring Guide Name Role Phone [facility] Primary Care Provider Karoline Mak Unavailable Encounters Encounter Location Date Provider Diagnosis [facility] [address] [place] [phone] 10/21/2023 Karoline Carcamo Plan Of Treatment No Information Progress Notes * Leigh BEEBEOB:1960 (64 yo F)Acc No.[id number]:10/21/2023 Case Management Patient: Jaja MORENO Provider: Jelani Carcamo :1960 A ge:62 Y S ex:Female Date:10/21/2023 Address:[address] [place], [place] [phone] Pcp:[facility] Subjective: * Chief Complaints: * * Medical History: Objective: Assessment: Plan: * Treatment: * Images: Billing Information: * Visit Code: * Procedure Codes: Care Plan Details* * Electronic signature of Jose Ramon Carcamo on 02/28/2025 at 06:21 AM EDT Sign off status: Pending * Provider: Jelani Carcamo Date: 10/21/2023 Generated for Jay Jay cintron/Morales/eTransmitting on: 02/28/2025 06:21 AM EDT
--- OUTSIDE RECORDS SUMMARY | 2025-02-28 06:22 | XMS_ITS | Patient Health Record ---
Author Organization [facility] Address [address] [place] [address] Care Team Providers Care Plant Technician Name Role Phone Julio (RETIRED) Parth MORALES Primary Care Provide r Unavailable Darion Brooks Unavailable [phone] Reason For Referral No Information Medications Medication SIG (Take, Route, Frequency, Duration) Notes Start Date End Date Status [place] Carbonate 300 MG 3 capsule at be dtime Orally Once a day Active Levothyroxine Sodium 50 MCG 1 tablet on an empty stomach in the morning Orally Once a day for 30 day(s) Active traZODone HCl 100 MG 1 tablet at bedtime Orally Once a day for 30 day(s) Active buPROPion HCl ER (XL) 300 MG 1 tablet in the morning Orally Once a day Active Lipitor 20 MG 1 tablet Orally Once a day for 30 day(s) Active Immunizations Vaccine Route Administration Date Status Comme nts Influenza Unknown 05/25/2018 Administered Social History Tobacco Use: Social History Observation Description Date Details (start date - stop date) Current Smoker NA - NA Tobacco Use/Smoking Question Answer Notes Patient is a current smoker How often do you smoke cigarettes? every day How many cigarettes a day do you smoke? 5 or les s How soon after you wake up do you smoke your fir st cigarette? 6-30 minutes Are you interested in quitting? Ready to quit Alcohol Screen Question Answer Notes Did you have a drink containing alcohol in the p ast year? No Points 0 Interpretation Negative Section Notes: Smoker; no alcohol Problems Problem Type SNOMED Code ICD Code Onset Dates Problem Status W/U Status Risk Notes Problem 964882603 Encounter for screening for malignant neoplasm of colon (Z12.11) Active confirmed Problem [id number] Preprocedural examination (Z01.818) Active confirmed Plan Of Treatment Future Test Test Name Order Date COLONOSCOPY 04/12/2019 Insurance Providers Payer Name Payer Address Payer Phone Subscriber Number Group Number Insured Name Patient Relationship to Insured Coverage Start Date Coverage End Date MEDICARE OF [place] [address] [place] [address] [id number] FARAZ KNOX Self - patient is the insured MEDICAID OF [facility] [address] [place] [address] [id number] FARAZ KNOX Self - patient is the insured Medical (General) History Medical History History ICD Code Asthma Denies [place],DM,CVA,renal disease Bipolar depression Hypothyroidism Hyperlipidemia Surgical History Surgery Date(Month/Year) Partial hysterectomy 2001 Cataracts-lens implants 2019
--- OUTSIDE RECORDS SUMMARY | 2025-02-28 06:22 | XMS_ITS | Encounter Summary ---
Author Organization [employer] Address [address] [facility] [address] [place] [address] Care Team Providers Care Transcribing Machine Operator Name Role Phone Unavailable Primary Care Provider Unavailabl e Reason for Visit * Reason Onset Date Comments insurance information/self pay 08/17/2024 Encounter Details Date Type Department Care Team (Late st Contact Info) Description 08/17/2024 Telephone C ADULT DENTAL [address] [place], [place] [phone] Kj Zurita, SAEID [address] [place], [place] [phone] insurance information/self pay Social History Tobacco Use [...] 8:27 AM EST Patient states she has [employer] for insurance but does not have the [...]
[2025-02-28 07:45] LABS: Hemoglobin A1C 166.0009 umol/L; Total Hemoglobin (HGBA1C) 3761.0556 umol/L
[2025-02-28 08:09] LABS: Alanine Aminotransferase 31 U/L (0-31); Anion Gap 12 (12-20); Aspartate Amino Transferase 20 U/L (5-31); Blood Urea Nitrogen 17 mg/dL (9-16); Calcium 9.6 mg/dL (8.4-10.2); Carbon Dioxide 29 mmol/L (22-29); Chloride 104 mmol/L (96-108); Cholesterol 252 mg/dL (<200); Estimated Glomerular Filt Rate > 60; HDL Cholesterol 78 mg/dL (>40); Potassium 4.7 mmol/L (3.3-5.1); Sodium 140 mmol/L (135-145); Triglycerides 191 mg/dL (<150)
[2025-02-28 08:30] LABS: Free T4 (Free Thyroxine) 1.06 ng/dL (0.71-1.85); Thyroid Stimulating Hormone 5.84 uIU/mL (0.32-4.0)
[2025-02-28 08:35] LABS: Folate 10.2 ng/mL (> or = 4.0); Vitamin B12 555 pg/mL (200-900)
== END 2025-02-28 06:19 | disposition home or self-care (01) ==
LOC: HO.LAB 06:18
PROVIDERS: PCP Internal Medicine; Visit Provider Internal Medicine
DX: M81.0 Age-related osteoporosis without current pathological fracture (principal); E78.5 Hyperlipidemia, unspecified; E03.9 Hypothyroidism, unspecified; E11.9 Type 2 diabetes mellitus without complications; R34 Anuria and oliguria; R35.0 Frequency of micturition
CPT/HCPCS: 36415; 80048; 80061; 82306; 82607; 82746; 83036; 84439; 84443; 84450; 84460

== ENCOUNTER 2025-03-04 09:19 | Outpatient (AMB) | payer OTHER, SELFPAY ==
--- OUTSIDE RECORDS SUMMARY | 2023-10-21 07:00 | XMS_ITS ---
Author Organization [facility] Address [address] [place] [phone] Care Team Providers Care Pipelines Superintendent Name Role Phone [facility] Primary Care Provider Karoline Mak Unavailable [phone] Encounters Encounter Location Date Provider Diagnosis [facility] [address] [place] [phone] 10/21/2023 Karoline Carcamo Plan Of Treatment No Information Progress Notes * Leigh BEEBEOB:1960 (64 yo F)Acc No.[id number]:10/21/2023 Case Management Patient: Jaja MORENO Provider: Jelani Carcamo :1960 A ge:62 Y S ex:Female Date:10/21/2023 Address:[address] [place], [place] [phone] Pcp:[facility] Subjective: * Chief Complaints: * * Medical History: Objective: Assessment: Plan: * Treatment: * Images: Billing Information: * Visit Code: * Procedure Codes: Care Plan Details* * Electronic signature of Jose Ramon Carcamo on 03/04/2025 at 09:44 AM EDT Sign off status: Pending * Provider: Jelani Carcamo Date: 10/21/2023 Generated for Jay Jay cintron/Morales/eTransmitting on: 0 03/04/2025 09:44 AM EDT
[2025-03-04 09:44] VITALS: BP 90/54; PULSE 80; TEMP 36.4; O2SAT 95; BMI 18.8
--- NOTE | 2025-03-04 09:44 | AM.OFFWIN_ITS ---
Intake Vital Signs 03/04/25 09:44 Height 5 ft 1 in Weight 99 lb 8 oz BMI 18.8 BP 90/54 L Blood Pressure Location Lt brachial Position Sitting Pulse 80 Pulse Source Pulse Oximeter Temp 97.6 F Temp Source Oral Pulse Oximetry (%) 95 Oxygen Delivery Method Room Air Intake Visit Reasons: EP-frequent urine Intake Note: Patient presents for UTI, only symptom is frequency, no urgency Patient Tobacco Use Status: Current everyday Tobacco user Reproductive Healthcare Assistant Required: No Is last menstrual period known: No Post menopausal: Yes Patient : No Allergies olanzapine (From ZYPREXA) Adverse Reaction (Intermediate, Verified 03/04/25 09:56) RLS symptoms clonidine Adverse Reaction (Verified 03/04/25 09:56) RLS diphenhydramine (From Benadryl) Adverse Reaction (Verified 03/04/25 09:56) RLS hydroxyzine Adverse Reaction (Verified 03/04/25 09:56) RLS melatonin Adverse Reaction (Verified 03/04/25 09:56) RLS atypical antipsychotics Adverse Reaction (Severe, Uncoded 12/04/24 15:09) This class appears to potentiate RLS/Akathesia Do you need a note to return to daycare/school/sports/work: No HPI HPI Comments History of Present Illness Details History - The patient is a 64-year-old female pr esenting with urinary symptoms evaluation. - She experienced her first urinary trac t infection in October, which persisted despite initial treatment. - A subsequent course of antibiotics in late December seemed to resolve the infection, as she no longer experienced burning or other symptoms. - Currently, she reports urinary dribbli ng without burning or hematuria. - The patient is on lithium and Depakote , which contribute to dehydration, especially in the sun, leading her to increase fluid intake. - Recent blood work indicated elevated k idney function, with a BUN level of 17, up from 13 in October, suggesting possible dehydration. - She denies back pain, fever, chills, C P, SOB, hematuria, stones, vaginal discharge or itching. - Had recent blood work done. Physical Exam General: Cooperative, healthy appearing, comfortable, no acute distress and well developed Cardiac: Normal S1 and S2. RRR, no M/R/G noted. Respiratory: Normal respiratory effort and able to speak in complete sentences. Clear to auscultation bilaterally. No w/r/r noted. Skin: No rashes or lesions noted. GI: Normal inspection. Normal BS noted. Soft, non-tender, non-distended. No TTP of all 4 quadrants. No guarding or rebound tenderness noted. Back: Negative CVA bilaterally Patient was informed and verbally consented to the use of an ambient scribe for clinic note documentation during this visit. [facility] Medical History (Updated 02/11/25 @ 10:02 by Shadia Kathleen MA) Depression Nicotine dependence, cigarettes, uncomplicated Misuse of prescription only drugs 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 mutation [id number] ADHD Hypothyroidism Polysubstance use disorder Cannabis use disorder Cocaine use disorder Acute medication-induced akathisia Osteopenia of multiple sites Syncope Type II diabetes mellitus Fibromyalgia Benzodiazepine abuse RLS (restless legs syndrome) COPD (chronic obstructive pulmonary disease) HLD (hyperlipidemia) Surgical History History of vaginal hysterectomy History of cataract surgery Family History Mother CAD (coronary artery disease) Father Alcoholism Son Substance use disorder Son Substance use disorder Social History Household Members: Spouse Household Members Other:: son's girlfriend Housing: Apartment Do you presently have visiting nurse or other home services: No Unable to assess alcohol history related to: Unknown Alcohol intake: never Comment: Pt reports falling d/t excessive intake of Benzo's prior to admission Patient Tobacco Use Status: Current everyday Tobacco user Tobacco use type: Cigarette Cigarette Packs Per Day: 1 Cigarettes Per Day: 17 Years Smoked: 45 e-Cigarette/Vaping Use: Never Used Second Hand Smoke Exposure: No Substance Use Type: Marijuana Advance Directives Date on File: 06/05/24 service: No Current occupational status: unemployed Sexual orientation: Straight/Heterosexual Cognitive needs: No Hearing needs: No Vision needs: No Review of Systems Const All systems reviewed & are unremarkable except as noted in HPI and below Physical Exam Vital Signs: Last Vital Signs Temp 97.6 F 03/04/25 09:44 Pulse 80 03/04/25 09:44 BP 90/54 L 03/04/25 09:44 Pulse Ox 95 03/04/25 09:44 Oxygen Delivery Method Room Air 03/04/25 09:44 BMI result Body Mass Index 18.8 Results AMB Urinalysis, Automated UA Leukoctes 0 Regan/uL Last Edit by Jolanta Feliz MA on 03/04/25 10:06 UA Nitrite Negative Last Edit by Jolanta Feliz MA on 03/04/25 10:06 UA Urobilinogen 0.2 mg/dL Last Edit by Jolanta Feliz MA on 03/04/25 10:06 UA Protein 0 mg/dL Last Edit by Jolanta Feliz MA on 03/04/25 10:06 UA pH 6.0 Last Edit by Jolanta Feliz MA on 03/04/25 10:06 UA Blood 0 Isaak/uL Last Edit by Jolanta Feliz MA on 03/04/25 10:06 UA Specific Lincoln 1.015 Last Edit by Jolanta Feliz MA on 03/04/25 10:06 UA Ketone Negative Last Edit by Jolanta Feliz MA on 03/04/25 10:06 UA Bilirubin 0 mg/dL Last Edit by Jolanta Feliz MA on 03/04/25 10:06 UA Glucose 0 mg/dL Last Edit by Jolanta Feliz MA on 03/04/25 10:06 Results Reviewed Results Reviewed: Laboratory Last Values Urine pH (Auto) 6.0 03/04/25 10:02 Specific Lincoln (Auto) 1.015 03/04/25 10:02 Urine Protein (Auto) 0 mg/dL 03/04/25 10:02 Glucose (UA)(Auto) 0 mg/dL 03/04/25 10:02 Urine Ketones (Auto) Negative 03/04/25 10:02 Urine Blood (Auto) 0 Isaak/uL 03/04/25 10:02 Urine Nitrite (Auto) Negative 03/04/25 10:02 Urine Bilirubin (Auto) 0 mg/dL 03/04/25 10:02 Urine Urobilinogen (Auto) 0.2 mg/dL 03/04/25 10:02 Leukocyte Esterase (Auto) 0 Regan/uL 03/04/25 10:02 Assessment & Plan Assessment & Plan (1) Urinary frequency: Code(s): R35.0 - Frequency of micturition Plan Most likely urinary frequency vs incontinence vs dehydration, may be from her diabetes although her A1c was 6.2 UA in the office was negative Plan - The patient should follow up with her primary care physician to review lab results and discuss further management. - Increase fluid intake to address dehydration, especially due to medication effects. - Follow up with primary care to assess kidney function and consider referral to a specialist if necessary. Orders: Orders AMB Urinalysis Automated Today Z13.9 - Encounter for screening, unspecified Coding Level of Care Code Est Pt Level 3 (39367) Diagnoses Urinary frequency R35.0
--- OUTSIDE RECORDS SUMMARY | 2025-03-04 09:44 | XMS_ITS | Encounter Summary ---
Author Organization [employer] Address [address] [facility] [address] [place] [address] Care Team Providers Care Furniture Technician Name Role Phone Unavailable Primary Care Provider Unavailabl e Reason for Visit * Reason Onset Date Comments insurance information/self pay 08/17/2024 Encounter Details Date Type Department Care Team (Late st Contact Info) Description 08/17/2024 Telephone C ADULT DENTAL [address] [place], [place] [phone] Kj Zuriat, SAEID [address] [place], [place] [phone] insurance information/self pay Social History Tobacco Use [...] 8:27 AM EST Patient states she has [employer] for insurance but does not have the [...]
--- OUTSIDE RECORDS SUMMARY | 2025-03-04 09:44 | XMS_ITS | Patient Health Record ---
Author Organization [facility] Address [address] [place] [address] Care Team Providers Care Study Assistant Name Role Phone Julio (RETIRED) Parth MORALES Primary Care Provide r Unavailable Darion Brooks Unavailable [phone] Reason For Referral No Information Medications Medication SIG (Take, Route, Frequency, Duration) Notes Start Date End Date Status [place] Carbonate 300 MG 3 capsule at be [...] Problem Status W/U Status Risk Notes Problem [id number] Encounter for screening for malignant neoplasm of colon (Z12.11) Active confirmed Problem [id number] Preprocedural examination (Z01.818) Active confirmed Plan Of Treatment Future Test Test Name Order Date COLONOSCOPY 04/12/2019 Insurance Providers Payer Name Payer Address Payer Phone Subscriber Number Group Number Insured Name Patient Relationship to Insured Coverage Start Date Coverage End Date MEDICARE OF [place] [address] [place] [address] [id number] FARAZ KNOX Self - patient is the insured MEDICAID OF [facility] [address] [place] [phone] [id number] FARAZ KNOX Self - patient is the insured Medical (General) History Medical History History ICD Code Asthma Denies [place],DM,CVA,renal disease Bipolar depression Hypothyroidism Hyperlipidemia Surgical History Surgery Date(Month/Year) Partial hysterectomy 2001 Cataracts-lens implants 2019
--- OUTSIDE RECORDS SUMMARY | 2025-03-04 09:44 | XMS_ITS | Encounter Summary ---
Author Organization [facility] Address [address] [address] Phone Care Team Providers Care Control Engineer Name Role Phone Parth Kim MD Primary Care Provider Encounter Details Date Type Department Care Team (Latest Contact Info) Description 11/22/2022 Transcribe Orders [facility] Specimen Processing [address] [place] [address] Bisi Cervantes PA-C [address] [place] [address] [email or web address] Encounter for screening (Primary Dx) Social History Tobacco Use Types Packs/Day Years Used Date Smoking Tobacco: Every Day Cigarettes 0.5 15 Smokeless Tobacco: Never Alcohol Use Standard Drinks/Week Comments Never 0 (1 standard drink = 0.6 oz pur e alcohol) Comments No Sex and Gender Information Value Date Recorded Sex Assigned at Female 11/18/2019 9:35 AM EDT Legal Sex Female 7:05 PM EST Gender Identity Female 11/18/2019 9:35 AM EDT Sexual Orientation Straight 11/18/2019 9: 35 AM EDT documented as of this encounter Functional Status * Calculated C-SSRS Risk Score (Lifetime/Recent) Answer Date of Assessment Author High Risk 11/22/2022 4:41 PM EDT Aysha Cuadra, RN * [place] Suicide Severity Rating Scale (Screener/Recent Self-Report) Question Answer Date of Assessment Author 1. Wish to be (Past 1 Month) Yes 023 4:41 PM EDT Hayley Cuadra, KAMAR 2. Non-Specific Active Suici kailash Thoughts (Past 1 Month) Yes 11/22/2022 4:41 PM EDT Hayley Cuadra RN 3. Active Suicidal Ideation with any Methods (Not Plan) Without Intent to Act (Past 1 Month) Yes 11/22/2022 4:41 PM EDT Hayley Cuadra RN 4. Active Suicidal Ideation with Some Intent to Act, Without Specific Plan (Past 1 Month) Yes 11/22/2022 4:41 PM EDT Hayley Cuadra RN 5. Active Suicidal Ideation with Specific Plan and Intent (Past 1 Month) No 11/22/2022 4:41 PM E DT Hayley Cuadra RN 6. Suicidal Behavior (Lifetime) Yes 4:41 PM EDT Hayley Cuadra RN documented as of this encounter Plan of Treatment Not on file documented as of this encounter Procedures Procedure Name Priority Date/Time Associated Diagnosis Comments TOXICOLOGY SCREEN, URINE Routine 11/22/2022 7:14 PM EDT Encounter for screening documented in this encounter Results * (ABNORMAL) Toxicology screen, urine (11/22/2022 7:14 PM EDT) URINE CANNABINOIDS Positive(A) NONE DETECTED [facility] Comment:Cutoff: 50 ng/mL URINE COCAINE METAB NONE DETECTED NONE DETECTED [facility] Comment:Cutoff: 300 ng/mL URINE AMPHETAMINES NONE DETECTED NONE DETECTED [facility] Comment:Cutoff: 1000 ng/mL URINE METHADONE NONE DETECTED NONE DETECTED [facility] Comment:Cutoff: 300 ng/mL URINE OPIATES NONE DETECTED NONE DETECTED [facility] Comment:Cutoff: 300 ng/mL URINE PHENCYCLIDINE NONE DETECTED NONE DETECTED [facility] Comment:Cutoff: 25 ng/mL URINE OXYCODONE NONE DETECTED NONE DETECTED [facility] Comment:Cutoff: 300 ng/ml URINE BARBITURATES NONE DETECTED NONE DETECTED [facility] Comment:Cutoff: 200 ng/mL URINE BENZODIAZEPINE NONE DETECTED NONE DETECTED [facility] Comment:Cutoff: 200 ng/mL URINE BUPRENORPHINE NONE DETECTED NONE DETECTED [facility] Comment: Cutoff: 5 ng/mL INTERPRETATION FOR TOXICOLOGY PANEL: These results are unconfirmed and should be used for Medical Treatment purposes only. Urine (Urine) 11/22/2022 7:1 4 PM EDT 11/22/2022 7:15 PM EDT us Bisi Cervantes PA-C URINE ORDERABLES Final Result [address] [id number] documented in this encounter Visit Diagnoses Diagnosis Encounter for screening- Primary documented in this encounter Care Teams Control Engineer Relationship Specialty Start Date End Date Parth Kim MD [address] [place] [address] [place] [address] PCP - General Internal Medicine 11/18/19 documented as of this encounter Additional Source Comments The information contained in this document represents components of the legal health record. It is not the complete legal health record.[facility]
== END 2025-03-04 11:02 | disposition home or self-care (01) ==
PROVIDERS: PCP Internal Medicine; Visit Provider Physician Assistant Medical
DX: Z13.9 Encounter for screening, unspecified (principal); R35.0 Frequency of micturition

== ENCOUNTER → 2025-03-04 09:19 | Outpatient (BNVA) | payer OTHER, SELFPAY | PROVIDERS: PCP Internal Medicine; Visit Provider Physician Assistant Medical | DX: R35.0 Frequency of micturition (principal) | CPT/HCPCS: 81003 ==

== ENCOUNTER 2025-03-07 08:51 | Outpatient (AMB) | payer OTHER, SELFPAY ==
--- OUTSIDE RECORDS SUMMARY | 2023-10-21 07:00 | XMS_ITS ---
Author Organization [facility] Address [address] [place] [phone] Care Team Providers Care Corporate Strategy Analyst Name Role Phone [facility] Primary Care Provider Karoline Mak Unavailable Encounters Encounter Location Date Provider Diagnosis [facility] [address] [place] [phone] 10/21/2023 Karoline Carcamo Plan Of Treatment No Information Progress Notes * Leigh BEEBEOB:1960 (64 yo F)Acc No.[id number]:10/21/2023 Case Management Patient: Jaja MORENO Provider: Jelani Carcamo :1960 A ge:62 Y S ex:Female Date:10/21/2023 Address:[address] [place], [place] [phone] Pcp:[facility] Subjective: * Chief Complaints: * * Medical History: Objective: Assessment: Plan: * Treatment: * Images: Billing Information: * Visit Code: * Procedure Codes: Care Plan Details* * Electronic signature of Jose Ramon Carcamo on 03/07/2025 at 09:18 AM EDT Sign off status: Pending * Provider: Jelani Carcamo Date: 10/21/2023 Generated for Jay Jay cintron/Morales/eTransmitting on: 03/07/2025 09:18 AM EDT
--- NOTE | 2025-03-07 08:58 | A.OFFVIS_ITS ---
Vital Signs 03/07/25 08:59 Height 5 ft 1 in Weight 97 lb BMI 18.3 BP 133/73 Blood Pressure Location Lt brachial Position Sitting Pulse 97 Pulse Source Pulse Oximeter Pulse Oximetry (%) 93 Oxygen Delivery Method Room Air Intake Visit Reasons: copd Intake Note: pt is here for follow up to talk about her asthma for maintenance control. Strapping Machine Tender Required: No Allergies olanzapine (From ZYPREXA) Adverse Reaction (Intermediate, Verified 03/07/25 09:11) RLS symptoms clonidine Adverse Reaction (Verified 03/07/25 09:11) RLS diphenhydramine (From Benadryl) Adverse Reaction (Verified 03/07/25 09:11) RLS hydroxyzine Adverse Reaction (Verified 03/07/25 09:11) RLS melatonin Adverse Reaction (Verified 03/07/25 09:11) RLS atypical antipsychotics Adverse Reaction (Severe, Uncoded 03/07/25 09:11) This class appears to potentiate RLS/Akathesia Medication List - Last Reconciled 03/07/25 by Zayra Ariza MD albuterol sulfate 90 mcg/actuation (Ventolin HFA) 2 puffs inhalation Q4-6H PRN 30 days cholecalciferol (vitamin D3) (Vitamin D3) 50 mcg PO DAILY clonazepam (Klonopin) 2 mg PO BEDTIME [Diabetic ensure drink Diabetic ensure drink twice daily as directed] divalproex ER 500 mg PO BEDTIME docusate sodium 100 mg PO BID PRN guanfacine ER 1 mg PO QID 30 days ibuprofen 400 mg PO Q6H PRN levothyroxine 50 mcg PO DAILY@0600 lidocaine 4% (Lidocaine Pain Relief) 1 patch See Protocol transdermal DAILY lithium carbonate 150 mg (1/2 x 300 mg) PO DAILY 30 days meloxicam 15 mg PO DAILY PRN methocarbamol 750 mg PO Q8H PRN modafinil 200 mg PO QAM pramipexole 0.5 mg PO TID 30 days pregabalin 150 mg PO TID rosuvastatin 5 mg PO Q2D 3 months sodium chloride 0.65% (Deep Sea Nasal) 1 spray intranasal Q1H PRN zolpidem (Ambien) 10 mg PO BEDTIME PRN Do you need a note to return to daycare/school/sports/work: No HPI HPI copd: Details: Jaja is now 6 to 4 years old, with bipolar disorder and lot of anxiety issues, Smokes 2-3 cigarettes a day trying to quit but can not. Every now and then she has to smoke more cigarettes to alleviate her stresses. Complains of mild nasal congestion off and on especially during the summer months. Complains of intermittent cough with some wheezing, and ends up using albuterol 2 puffs about twice a day. She has had no recent respiratory infection. [facility] 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 [id number] ADHD Hypothyroidism Polysubstance use disorder Cannabis use disorder Cocaine use disorder Acute medication-induced akathisia Osteopenia of multiple sites Syncope Type II diabetes mellitus Fibromyalgia Benzodiazepine abuse RLS (restless legs syndrome) COPD (chronic obstructive pulmonary disease) HLD (hyperlipidemia) Surgical History History of vaginal hysterectomy History of cataract surgery Family History Mother CAD (coronary artery disease) Father Alcoholism Son Substance use disorder Son Substance use disorder Social History Household Members: Spouse Household Members Other:: son's girlfriend Housing: Apartment Do you presently have visiting nurse or other home services: No Unable to assess alcohol history related to: Unknown Alcohol intake: never Comment: Pt reports falling d/t excessive intake of Benzo's prior to admission Patient Tobacco Use Status: Current everyday Tobacco user Tobacco use type: Cigarette Cigarette Packs Per Day: 1 Cigarettes Per Day: 15 Years Smoked: 45 e-Cigarette/Vaping Use: Never Used Second Hand Smoke Exposure: No Substance Use Type: Marijuana Advance Directives Date on File: 06/05/24 service: No Current occupational status: unemployed Sexual orientation: Straight/Heterosexual Cognitive needs: No Hearing needs: No Vision needs: No Review of Systems Const All systems reviewed & are unremarkable except as noted in HPI and below Eyes Reports no additional complaints ENT Reports no additional complaints Card Denies chest pain, Denies irregular heart rhythm and Denies leg edema Resp Reports as per HPI GI Reports no additional complaints Reports no additional complaints Musc Reports back pain (Chronic) Skin/Breast Reports system reviewed and no additional complaints, except as documented Neuro Reports no additional complaints Psych Reports anxiety, Reports mood swings and Reports other (Bipolar disorder) Endo Reports other (Hypothyroidism) Anthony/Lymph Reports no additional complaints Aller/Immun Reports no additional complaints Physical Exam Vital Signs: Last Vital Signs Pulse 97 03/07/25 08:59 BP 133/73 03/07/25 08:59 Pulse Ox 93 03/07/25 08:59 Oxygen Delivery Method Room Air 03/07/25 08:59 BMI result Body Mass Index 18.3 Patient is of a thin build, underweight, but physically active and appropriate Const General: healthy appearing (except for being underweight ), comfortable, no acute distress, alert and awake Orientation/consciousness: patient oriented x3 HEENT Head: Yes normal to inspection General nose exam: No nasal polyps present and No nasal discharge present Face and sinus: Yes sinuses nontender Mouth: oropharynx normal Throat: Yes posterior oropharynx normal Eyes General: appearance normal, both eyes and all related structures Neck Neck: Yes normal visual inspection, Yes no lymphadenopathy, Yes trachea midline and Yes no JVD Thyroid: Thyroid normal Chest Chest palpation & inspection: normal inspection of the chest, normal palpation of entire chest wall and no tenderness Resp Effort & Inspection: normal respiratory effort Auscultation: clear to auscultation bilaterally, no crackles, no rhonchi and no wheezes Cardio Palpation: normal PMI Rate: regular rate Rhythm: regular rhythm Heart sounds: no gallops and no murmurs Peripheral pulses: Peripheral pulses 2+ throughout GI Palpation (GI): Soft to palpation, nontender, No hepatosplenomegaly present and no masses Auscultation: normal bowel sounds Back/Spine/Pelvis Thoracic/Lumbar Spine: thoracic and lumbar spine normal to inspection Skin General skin exam: no rashes or lesions noted Neuro General: patient oriented x3 and no focal motor deficits Cranial nerves: Yes CN's II-XII intact bilaterally Extrem General: Yes normal to inspection, Yes no clubbing, cyanosis or edema and Yes no calf tenderness Psych Appearance: grossly normal and well kempt Speech and movement: Normal speech and movement present Results Reviewed Results Reviewed: SPIROMETRY ; 03/21/2022 03/07/25 FVC 100 % 89% FEV1 89 % 54 5 FEF 25-75 62 % 22 % * COPD status worsened Assessment & Plan Assessment & Plan (1) COPD (chronic obstructive pulmonary disease): Comment: SHE HAS A VERY MILD SMALL AIRWAY OBSTRUCTIVE DISORDER, NOW PROGRESS TO MODERATELY SEVERE. ( SEE THE SPIROMETRY RESULTS0 Code(s): J44.9 - Chronic obstructive pulmonary disease, unspecified Category: Medical Plan: PATIENT EXPLAINED ABOUT THIS ONGOING DETERIORATION OF HER LUNG FUNCTION. OF COURSE SHE HAS TO QUIT SMOKING. STARTED ON WIXELA 250-51 INHALATION B.I.D. ALBUTEROL HFA( VENTOLIN) 2 PUFFS Q 4-6 HOURS P.R.N. HOPEFULLY WITH THE USE OF MAINTENANCE INHALER SHE WOULD NOT NEED TO USE VENTOLIN FREQUENTLY. (2) Nicotine dependence, cigarettes, uncomplicated: Comment: (onset 17yo, 1/2ppd x 46yrs, 23pyh) , currently smoking only a few cigarettes a day, but sometime goes up to half-a-pack a day to alleviate her anxiety. Code(s): F17.210 - Nicotine dependence, cigarettes, uncomplicated Category: Medical Plan: * patient is in annual lung screening program Counseled to quit completely but because of for severe anxiety symptoms is difficult. She wants to try nicotine patch once again and I have prescribed 21 mg patch applied daily , for 2 months and then reduced to the lower level, Medications: New fluticasone propion-salmeterol 250-50 mcg/dose (Wixela Inhub) 1 inh inhalation BID 60 ea 5RF COPD 30 days Zayra Ariza MD nicotine 1 patch transdermal DAILY 28 ea 1RF quit smoking 28 days Zayra Ariza MD Changed From methocarbamol 750 mg PO Q8H 30 tabs 0RF To methocarbamol 750 mg PO Q8H PRN Nicole Farmer PA-C Coding Level of Care Code Est Pt Level 3 (18879) Diagnoses COPD (chronic obstructive pulmonary disease) J44.9 Nicotine dependence, cigarettes, uncomplicated F17.210
[2025-03-07 08:59] VITALS: BP 133/73; PULSE 97; O2SAT 93; BMI 18.3
--- OUTSIDE RECORDS SUMMARY | 2025-03-07 09:18 | XMS_ITS | Encounter Summary ---
Author Organization [employer] Address [address] [place] [address] Care Team Providers Care Public Address System Operator Name Role Phone Unavailable Primary Care Provider Unavailabl e Reason for Visit * Reason Onset Date Comments insurance information/self pay 08/17/2024 Encounter Details Date Type Department Care Team (Late st Contact Info) Description 08/17/2024 Telephone C ADULT DENTAL [address] [place], [place] [phone] Kj Zurita, SAEID [address] [place], [place] [phone] insurance information/self pay Social History Tobacco Use [...] 8:27 AM EST Patient states she has [employer] for insurance but does not have the [...]
--- OUTSIDE RECORDS SUMMARY | 2025-03-07 09:18 | XMS_ITS | Encounter Summary ---
Author Organization [facility] Address [address] [address] Phone Care Team Providers Care Radar Air Traffic Controller Name Role Phone Parth Kim MD Primary Care Provider Encounter Details Date Type Department Care Team (Latest Contact Info) Description 11/22/2022 Transcribe Orders [facility] Specimen Processing [address] [place] [id number] Bisi Cervantes PA-C [address] [place] [address] [email or web address] Encounter for screening (Primary Dx) Social History [...] 4:41 PM EDT Aysha Cuadra, RN * Cloud Suicide Severity Rating Scale (Screener/Recent Self-Report) Question [...] PM EDT) URINE CANNABINOIDS Positive(A) NONE DETECTED [facility] Comment:Cutoff: 50 ng/mL URINE COCAINE METAB NONE DETECTED NONE DETECTED [facility] Comment:Cutoff: 300 ng/mL URINE AMPHETAMINES NONE DETECTED NONE DETECTED [facility] Comment:Cutoff: 1000 ng/mL URINE METHADONE NONE DETECTED NONE DETECTED [facility] Comment:Cutoff: 300 ng/mL URINE OPIATES NONE DETECTED NONE DETECTED [facility] Comment:Cutoff: 300 ng/mL URINE PHENCYCLIDINE NONE DETECTED NONE DETECTED [facility] Comment:Cutoff: 25 ng/mL URINE OXYCODONE NONE DETECTED NONE DETECTED [facility] Comment:Cutoff: 300 ng/ml URINE BARBITURATES NONE DETECTED NONE DETECTED [facility] Comment:Cutoff: 200 ng/mL URINE BENZODIAZEPINE NONE DETECTED NONE DETECTED [facility] Comment:Cutoff: 200 ng/mL URINE BUPRENORPHINE NONE DETECTED NONE DETECTED [facility] Comment: Cutoff: 5 ng/mL INTERPRETATION FOR TOXICOLOGY PANEL: These results are unconfirmed and should be used for Medical Treatment purposes only. Urine (Urine) 11/22/2022 7:1 4 PM EDT 11/22/2022 7:15 PM EDT us Bisi Cervantes PA-C URINE ORDERABLES Final Result [address] [address] documented in this encounter Visit Diagnoses Diagnosis Encounter for screening- Primary documented in this encounter Care Teams Radar Air Traffic Controller Relationship Specialty Start Date End Date Parth Kim MD [address] [place] [address] [place] [address] PCP - General Internal Medicine 11/18/19 documented as of this encounter Additional Source Comments The information contained in this document represents components of the legal health record. It is not the complete legal health record.[facility]
--- OUTSIDE RECORDS SUMMARY | 2025-03-07 09:19 | XMS_ITS | Patient Health Record ---
Author Organization [facility] Address [address] [place] [address] Care Team Providers Care Rehabilitation Coordinator Name Role Phone Julio (RETIRED) Parth MORALES Primary Care Provide r Unavailable Darion Brooks Unavailable [phone] Reason For Referral No Information Medications Medication SIG (Take, Route, Frequency, Duration) Notes Start Date End Date Status [place] Carbonate 300 MG 3 capsule at be [...] Problem Status W/U Status Risk Notes Problem [id number] Encounter for screening for malignant neoplasm of colon (Z12.11) Active confirmed Problem [id number] Preprocedural examination (Z01.818) Active confirmed Plan Of Treatment Future Test Test Name Order Date COLONOSCOPY 04/12/2019 Insurance Providers Payer Name Payer Address Payer Phone Subscriber Number Group Number Insured Name Patient Relationship to Insured Coverage Start Date Coverage End Date MEDICARE OF [place] [address] [place] [address] [id number] FARAZ KNOX Self - patient is the insured MEDICAID OF [facility] [address] [place] [address] [phone] [id number] FARAZ KNOX Self - patient is the insured Medical (General) History Medical History History ICD Code Asthma Denies ND,DM,CVA,renal disease Bipolar depression Hypothyroidism Hyperlipidemia Surgical History Surgery Date(Month/Year) Partial hysterectomy 2001 Cataracts-lens implants 2019
== END 2025-03-07 09:41 | disposition home or self-care (01) ==
LOC: HO.HPS 08:52
PROVIDERS: PCP Internal Medicine; Visit Provider Internal Medicine
DX: J44.9 Chronic obstructive pulmonary disease, unspecified (principal); F17.210 Nicotine dependence, cigarettes, uncomplicated
CPT/HCPCS: 99213

== ENCOUNTER 2025-03-28 09:32 | Outpatient (AMB) | payer OTHER, SELFPAY ==
--- OUTSIDE RECORDS SUMMARY | 2023-10-21 07:00 | XMS_ITS ---
Author Organization [facility] Address [address] [place] [phone] Care Team Providers Care Video Game Tester Name Role Phone [facility] Primary Care Provider Karoline Carcamo Unavailable [phone] Encounters Encounter Location Date Provider Diagnosis [facility] [address] [place] [phone] 10/21/2023 Karoline Carcamo Plan Of Treatment No Information Progress Notes * Leigh BEEBEOB:1960 (64 yo F)Acc No.[id number]:10/21/2023 Case Management Patient: Jaja MORENO Provider: Jelani Carcamo :1960 A ge:62 Y S ex:Female Date:10/21/2023 Address:[address] [place], [place] [phone] Pcp:[facility] Subjective: * Chief Complaints: * * Medical History: Objective: Assessment: Plan: * Treatment: * Images: Billing Information: * Visit Code: * Procedure Codes: Care Plan Details* * Electronic signature of Jose Ramon Carcamo on 03/28/2025 at 10:13 AM EDT Sign off status: Pending * Provider: Jelani Carcamo Date: 0 10/21/2023 Generated for Jay Jay cintron/Morales/eTransmitting on: 0 03/28/2025 10:13 AM EDT
--- NOTE | 2025-03-28 09:36 | A.OFFVIS_ITS ---
Intake Visit Reasons: OV-B/L Knee OA - Last Inj 08/2024 Intake Note: Jaja is a 63 year old female who presents today for a follow up of her bilateral knee OA. At her last visit on 09/03/2024 both of her knees were injected. She reports that these injections were helpful and she would like to repeat injections today. Allergies olanzapine (From ZYPREXA) Adverse Reaction (Intermediate, Verified 03/07/25 09:11) RLS symptoms clonidine Adverse Reaction (Verified 03/07/25 09:11) RLS diphenhydramine (From Benadryl) Adverse Reaction (Verified 03/07/25 09:11) RLS hydroxyzine Adverse Reaction (Verified 03/07/25 09:11) RLS melatonin Adverse Reaction (Verified 03/07/25 09:11) RLS atypical antipsychotics Adverse Reaction (Severe, Uncoded 03/07/25 09:11) This class appears to potentiate RLS/Akathesia HPI HPI OV-B/L Knee OA - Last Inj 08/2024: Details: Jaja is a 63 year old female who presents today for a follow up of her bilateral knee OA. At her last visit on 09/03/2024 both of her knees were injected. She reports that these injections were helpful and she would like to repeat injections today. [facility] 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 [id number] ADHD Hypothyroidism Polysubstance use disorder Cannabis use disorder Cocaine use disorder Acute medication-induced akathisia Osteopenia of multiple sites Syncope Type II diabetes mellitus Fibromyalgia Benzodiazepine abuse RLS (restless legs syndrome) COPD (chronic obstructive pulmonary disease) HLD (hyperlipidemia) Surgical History History of vaginal hysterectomy History of cataract surgery Family History Mother CAD (coronary artery disease) Father Alcoholism Son Substance use disorder Son Substance use disorder Social History Household Members: Spouse Household Members Other:: son's girlfriend Housing: Apartment Do you presently have visiting nurse or other home services: No Unable to assess alcohol history related to: Unknown Alcohol intake: never Comment: Pt reports falling d/t excessive intake of Benzo's prior to admission Patient Tobacco Use Status: Current everyday Tobacco user Tobacco use type: Cigarette Cigarette Packs Per Day: 1 Cigarettes Per Day: 15 Years Smoked: 45 e-Cigarette/Vaping Use: Never Used Second Hand Smoke Exposure: No Substance Use Type: Marijuana Advance Directives Date on File: 06/05/24 service: No Current occupational status: unemployed Sexual orientation: Straight/Heterosexual Cognitive needs: No Hearing needs: No Vision needs: No Physical Exam Extrem Other: Skin clean dry and intact bilateral knees. Tenderness to palpation medial compartment bilateral knees. Retropatellar tenderness to palpation lateral patellar facet bilateral knees left greater than right Office Procedures Joint Inj/Aspir; Non-Pain Clin Joint Injection/Drain Details: Injected 1 mL of Decadron and 3 mL 1% lidocaine and 3 mL of 0.25% Marcaine. Site was prepped using aseptic technique. Patient tolerated the procedure well. Shoulders, Hips, Knees, Knee Large Joint Injection : Bilateral Knee Coding Procedure code (CPT) selection complete Assessment & Plan Assessment & Plan (1) Bilateral primary osteoarthritis of knee: Code(s): M17.0 - Bilateral primary osteoarthritis of knee Category: Medical Plan: 64-year-old woman with bilateral knee osteoarthritis. She has benefitted from injections in the past. We injected her again today. If that is not sufficiently helpful we can consider viscosupplementation. (2) Type II diabetes mellitus: Code(s): E11.9 - Type 2 diabetes mellitus without complications Category: Medical Plan: Hyperglycemic effects of steroids discussed Coding Level of Care Code Est Pt Level 4 (35368) Diagnoses Bilateral primary osteoarthritis of knee M17.0 Type II diabetes mellitus E11.9 CPT Codes Shoulders, Hips, Knees, - Knee Large Joint Injection : Bilateral Knee ([id number])
--- OUTSIDE RECORDS SUMMARY | 2025-03-28 10:13 | XMS_ITS | Encounter Summary ---
Author Organization [employer] Address [address] [facility] [address] [place] [address] Care Team Providers Care Baseball Inspector And Repairer Name Role Phone Unavailable Primary Care Provider Unavailabl e Reason for Visit * Reason Onset Date Comments insurance information/self pay 08/17/2024 Encounter Details Date Type Department Care Team (Late st Contact Info) Description 08/17/2024 Telephone C ADULT DENTAL [address] [place], [place] [phone] Kj Zurita, SAEID [address] [place], [place] [phone] insurance information/self pay Social History Tobacco Use [...] 8:27 AM EST Patient states she has [employer] for insurance but does not have the [...]
--- OUTSIDE RECORDS SUMMARY | 2025-03-28 10:13 | XMS_ITS | Encounter Summary ---
Author Organization [facility] Address [address] [address] Phone Care Team Providers Care Program Director/Morning Show Host Name Role Phone Parth Kim MD Primary Care Provider Encounter Details Date Type Department Care Team (Latest Contact Info) Description 11/22/2022 Transcribe Orders [facility] Specimen Processing [address] [place] [id number] Bisi Cervantes PA-C [address] [place] [address] [email or web address] Encounter for screening (Primary Dx) Social History [...] 4:41 PM EDT Aysha Cuadra, RN * [place] Suicide Severity Rating Scale (Screener/Recent Self-Report) Question [...] PM EDT) URINE CANNABINOIDS Positive(A) NONE DETECTED [facility] Comment:Cutoff: 50 ng/mL URINE COCAINE METAB NONE DETECTED NONE DETECTED [facility] Comment:Cutoff: 300 ng/mL URINE AMPHETAMINES NONE DETECTED NONE DETECTED [facility] Comment:Cutoff: 1000 ng/mL URINE METHADONE NONE DETECTED NONE DETECTED [facility] Comment:Cutoff: 300 ng/mL URINE OPIATES NONE DETECTED NONE DETECTED [facility] Comment:Cutoff: 300 ng/mL URINE PHENCYCLIDINE NONE DETECTED NONE DETECTED [facility] Comment:Cutoff: 25 ng/mL URINE OXYCODONE NONE DETECTED NONE DETECTED [facility] Comment:Cutoff: 300 ng/ml URINE BARBITURATES NONE DETECTED NONE DETECTED [facility] Comment:Cutoff: 200 ng/mL URINE BENZODIAZEPINE NONE DETECTED NONE DETECTED [facility] Comment:Cutoff: 200 ng/mL URINE BUPRENORPHINE NONE DETECTED NONE DETECTED [facility] Comment: Cutoff: 5 ng/mL INTERPRETATION FOR TOXICOLOGY PANEL: These results are unconfirmed and should be used for Medical Treatment purposes only. Urine (Urine) 11/22/2022 7:1 4 PM EDT 11/22/2022 7:15 PM EDT us Bisi Cervantes PA-C URINE ORDERABLES Final Result [address] [address] documented in this encounter Visit Diagnoses Diagnosis Encounter for screening- Primary documented in this encounter Care Teams Program Director/Morning Show Host Relationship Specialty Start Date End Date Parth Kim MD [address] [place] [address] [place] [address] PCP - General Internal Medicine 11/18/19 documented as of this encounter Additional Source Comments The information contained in this document represents components of the legal health record. It is not the complete legal health record.[facility]
--- OUTSIDE RECORDS SUMMARY | 2025-03-28 10:14 | XMS_ITS | Patient Health Record ---
Author Organization [facility] Address [address] [place] [address] Care Team Providers Care Employee Communications Coordinator Name Role Phone Julio (RETIRED) Parth MORALES Primary Care Provide r Unavailable Darion Brooks Unavailable [phone] Reason For Referral No Information Medications Medication SIG (Take, Route, Frequency, Duration) Notes Start Date End Date Status [place] Carbonate 300 MG 3 capsule at be [...] Problem Status W/U Status Risk Notes Problem [id number] Encounter for screening for malignant neoplasm of colon (Z12.11) Active confirmed Problem [id number] Preprocedural examination (Z01.818) Active confirmed Plan Of Treatment Future Test Test Name Order Date COLONOSCOPY 04/12/2019 Insurance Providers Payer Name Payer Address Payer Phone Subscriber Number Group Number Insured Name Patient Relationship to Insured Coverage Start Date Coverage End Date MEDICARE OF [place] [address] [place] [address] [id number] FARAZ KNOX Self - patient is the insured MEDICAID OF [facility] [address] [place] [address] [id number] FARAZ KNOX Self - patient is the insured Medical (General) History Medical History History ICD Code Asthma Denies RI,DM,CVA,renal disease Bipolar depression Hypothyroidism Hyperlipidemia Surgical History Surgery Date(Month/Year) Partial hysterectomy 2001 Cataracts-lens implants 2019
--- OUTSIDE RECORDS SUMMARY | 2025-04-03 20:00 | XMS_ITS | Clinical Summary ---
Author Organization Unknown Care Team Providers Care Nuclear Plant Equipment Operator Name Role Phone LYNNE MORALES, NOREEN ROSENTHAL Unavailable Unavaila joe VIRAMONTES RN, ASHLEY Unavailable Unavailable Payers Payer Name Policy Type Policy Number Effective Date Expira tion Date [facility] ADV [id number] [place] [id number] [facility] ONE CARE [place] [id number] ON DEMAND MEDICARE - [place]ILL[place] - [place] [id number] Problems Condition Name Condition Details Condition Category Status Onset Date Resolution Date Last Treatment Date Treating Clinician Comments BIPOLAR DISORDER, UNSPECIFIED Active 12-03 00:00: 00 DEPRESSION, UNSPECIFIED Active 11-08 00:00: 00 Allergies, Adverse Reactions, Alerts Allergy Name Allergy Type Status Severity Reaction(s) Onset Date Inactive Date Treating Clinician Comments BENADRYL Propensity to adverse reactions Active 12-07 07:06: 57 CLONIDINE Propensity to adverse reactions Active 12-07 07:06: 46 HYDROXYZINE Propensity to adverse reactions Active 12-07 07:07: 07 MELATONIN Propensity to adverse reactions Active 12-07 07:07: 29 OLANZAPINE Propensity to adverse reactions Active 12-07 07:06: 38 Medications Ordered Medication Name Filled Medication Name Start Date Stop Date Current Medication? Ordering Clinician Indication Dosage Frequency Signature (SIG) Comments Components mirtazapine 7.5 mg tablet 11-11 00:00: 00 12-02 23:59 :00 No [id number] Per instruc tions AT BEDTIME Per instructio ns AT BEDTIME (route: oral) Med Classific ation: Central Nervous System Agents oxcarbazepi ne 300 mg tablet 11-11 00:00: 00 12-02 23:59 :00 No [id number] Per instruc tions TWICE A DAY Per instructio ns TWICE A DAY (route: oral) Med Classific ation: Central Nervous System Agents pramipexole 0.25 mg tablet 3-26 00:00: 00 12-02 23:59 :00 No [id number] Per instruc tions TWICE A DAY Per instructio ns TWICE A DAY (route: oral) Med Classific ation: Central Nervous System Agents atorvastati n 20 mg tablet 12-27 00:00: 00 12-02 23:59 :00 No [id number] 1 tablet BEDTIME 1 tablet BEDTIME (route: oral) Med Classific ation: Cardiovas cular Therapy Agents levothyroxi ne 50 mcg capsule 12-27 00:00: 00 12-02 23:59 :00 No [id number] 1 capsule DAILY 1 capsule DAILY (route: oral) Med Classific ation: Endocrine metformin 500 mg tablet 12-27 00:00: 00 12-02 23:59 :00 No [id number] 1 tablet 2 TIMES DAILY 1 tablet 2 TIMES DAILY (route: oral) Med Classific ation: Endocrine sertraline 50 mg tablet 12-27 00:00: 00 12-02 23:59 :00 No [id number] 1 tablet DAILY 1 tablet DAILY (route: oral) Med Classific ation: Central Nervous System Agents albuterol sulfate HFA 90 mcg/actuati on aerosol inhaler 12-06 00:00: 00 Yes [id number] 2 puff DIRECTED 2 puff DIRECTED (route: inhalation ) Med Classific ation: Respirato ry Therapy Agents Ambien 10 mg tablet 12-06 00:00: 00 Yes [id number] 1 tablet BEDTIME 1 tablet BEDTIME (route: oral) Med Classific ation: Central Nervous System Agents cholecalcif va (vitamin D3) 50 mcg (2,000 unit) tablet 12-06 00:00: 00 Yes [id number] 1 tablet DAILY 1 tablet DAILY (route: oral) Med Classific ation: Electroly te Balance-N utritiona l Products clonazepam 2 mg tablet 12-06 00:00: 00 Yes [id number] 1 tablet BEDTIME 1 tablet BEDTIME (route: oral) Med Classific ation: Central Nervous System Agents Colace 100 mg capsule 12-06 00:00: 00 01-31 23:59 :00 No [id number] 1 capsule 2 TIMES DAILY 1 capsule 2 TIMES DAILY (route: oral) Med Classific ation: Gastroint estinal Therapy Agents divalproex 125 mg capsule,del ayed release sprinkle 12-06 00:00: 00 Yes [id number] 1 capsule 2 TIMES DAILY 1 capsule 2 TIMES DAILY (route: oral) Med Classific ation: Central Nervous System Agents ibuprofen 200 mg tablet 12-06 00:00: 00 Yes [id number] 2 tablet EVERY 6 HOURS 2 tablet EVERY 6 HOURS (route: oral) Med Classific ation: Analgesic , Anti-infl ammatory or Antipyret ic levothyroxi ne 50 mcg tablet 12-06 00:00: 00 Yes [id number] 1 tablet EVERY AM 1 tablet EVERY AM (route: oral) Med Classific ation: Endocrine Lidocaine Pain Relief 4 % topical patch 12-06 00:00: 00 01-31 23:59 :00 No [id number] 1 adhesiv e patch, medicat ed DAILY 1 adhesive patch, medicated DAILY (route: topical) Med Classific ation: Dermatolo gical lithium carbonate 150 mg capsule 12-06 00:00: 00 Yes [id number] 1 capsule DAILY 1 capsule DAILY (route: oral) Med Classific ation: Central Nervous System Agents methocarbam ol 500 mg tablet 12-06 00:00: 00 01-31 23:59 :00 No [id number] 1 tablet EVERY 8 HOURS 1 tablet EVERY 8 HOURS (route: oral) Med Classific ation: Locomotor System modafinil 200 mg tablet 12-06 00:00: 00 Yes [id number] 1 tablet EVERY AM 1 tablet EVERY AM (route: oral) Med Classific ation: Central Nervous System Agents naproxen 500 mg tablet 12-06 00:00: 00 Yes [id number] 1 tablet 2 TIMES DAILY 1 tablet 2 TIMES DAILY (route: oral) Med Classific ation: Analgesic , Anti-infl ammatory or Antipyret ic pramipexole 0.5 mg tablet 12-06 00:00: 00 Yes [id number] 1 tablet 3 TIMES DAILY 1 tablet 3 TIMES DAILY (route: oral) Med Classific ation: Central Nervous System Agents sodium chloride 0.65 % nasal spray aerosol 12-06 00:00: 00 01-31 23:59 :00 No [id number] 1 spray DIRECTED 1 spray DIRECTED (route: nasal) Med Classific ation: Respirato ry Therapy Agents rosuvastati n 5 mg tablet 12-06 00:00: 00 Yes [id number] 1 tablet EVERY OTHER DAY 1 tablet EVERY OTHER DAY (route: oral) Med Classific ation: Cardiovas cular Therapy Agents Vital Signs Vital Name Observation Time Observation Value Commen ts Pulse 2025-03-14 12:47:00.000 84 /min Pulse 2025-02-19 11:40:00.000 88 /min O2 Saturation (%) 2025-03-14 12:47:00.000 94 % O2 Saturation (%) 2025-02-19 11:40:00.000 95 % Respirations 2025-03-14 12:47:00.000 20 /min Respirations 2025-02-19 11:40:00.000 20 /min Weight (lbs) 2025-02-19 12:33:00.000 108.9 [lb_av] Systolic Blood Pressure 2025-03-14 12:47:00.000 109 mm [Hg] Systolic Blood Pressure 2025-02-19 11:40:00.000 92 mm[ Hg] Diastolic Blood Pressure 2025-03-14 12:47:00.000 84 mm [Hg] Diastolic Blood Pressure 2025-02-19 11:40:00.000 78 mm [Hg] Plan of Treatment Planned Activity [...] HEALTH.] Future Scheduled Test SKILLED NU RSE WILL MAINTAIN SITUATIONAL AWARENESS FOR SAFETY AND WILL NOTIFY CLINICAL ASSISTANT PROPERTY MANAGER AND PHYSICIAN/PROVIDER WITH ANY CHANGE IN CONDITION. [code = SKILLED NURSE WILL MAINTAIN SITUATIONAL AWARENESS FOR SAFETY AND WILL NOTIFY CLINICAL ASSISTANT PROPERTY MANAGER AND PHYSICIAN/PROVIDER WITH ANY CHANGE IN CONDITION.] Future Scheduled Test SKILLED NU RSE TO O/A OF PATIENTS MENTAL/BEHAVIORAL STATUS, ASSESS VITAL SIGNS 1WK8 ALLOW 2 PRNS FOR MEDICATION MANAGEMENT. [code = SKILLED NURSE TO O/A OF PATIENTS MENTAL/BEHAVIORAL STATUS, ASSESS VITAL SIGNS 1WK8 ALLOW 2 PRNS FOR MEDICATION MANAGEMENT.] Future Scheduled Test SKILLED NU RSE TO [...] MOOD] Future Scheduled Test SKILLED NU RSE TO [...] COMMUNITY RESOURCES AND PSYCHOSOCIAL SUPPORT SERVICES.] Goal 2025-01-31 Patient Goal - T O GET MEDICATIONS I AM ON MANAGED AND BALANCE Goal Patient Goal - TO GET A CAR Goal Provider Goal - A PLAN OF CARE WILL BE ESTABLISHED THAT MEETS PATIENT'S CUSTODIAL NEEDS AND INCLUDES PATIENT GOAL FOR HOME HEALTH. Goal Provider Goal - PATIENT WILL REMAIN SAFE IN THE COMMUNITY AND WILL BE FREE OF DANGER TO SELF AND OTHERS THROUGHOUT THE CERTIFICATION PERIOD. Goal Provider Goal - ALTERED MENTAL/BEHAVIORAL STATUS [...] THROUGHOUT CERTIFICATION PERIOD. Goal Provider Goal - PSYCHOSOCIAL NEEDS WILL BE IDENTIFIED AND PLAN IMPLEMENTED TO MINIMIZE RISK THROUGHOUT CERTIFICATION PERIOD. Encounters Start Date/Time End Date/Time Encounter Type Admission Type Attending [facility] Care Department Encounter ID Discharge Date Discharge Status Discharge Condition Discharge Reason Percent Goals Met 2025-02-04 00:00:00 2025-04-04 00:00:00 Outpatient RECERTIFIC ATION ASHLEY VIRAMONTES [facility] [id number] 83.33
== END 2025-03-28 10:07 | disposition home or self-care (01) ==
LOC: HO.HOS 09:35
PROVIDERS: PCP Internal Medicine; Visit Provider Orthopaedic Surgery
DX: M17.0 Bilateral primary osteoarthritis of knee (principal); E11.9 Type 2 diabetes mellitus without complications
CPT/HCPCS: 20610; 99214

== ENCOUNTER → 2025-03-28 09:32 | Outpatient (BNVA) | payer OTHER, SELFPAY | PROVIDERS: PCP Internal Medicine; Visit Provider Orthopaedic Surgery | DX: M17.0 Bilateral primary osteoarthritis of knee (principal) | CPT/HCPCS: 20610; J0665; J1100; J2003 ==

== ENCOUNTER 2025-04-02 19:18 | Emergency (ER) | payer OTHER, SELFPAY ==
--- NOTE | ~2025-04-02 | XR_ITS ---
CLINICAL HISTORY: atraumatic L knee pain --- Additional Notes or Special Instructions: hx torn meniscus 4 view left knee Comparison: Prior knee radiographs most recently on 03/15/2023 Findings: No acute or displaced fracture. No subluxation. No significant joint effusion. No intra-articular loose bodies. Moderate tricompartmental osteoarthritis demonstrating progression when compared to exam from 2022. No acute soft tissue abnormality. Impression: 1. No acute fracture or subluxation. 2. Additional findings as above. This document has been electronically signed by: Misty Pa MD on 04/02/2025 21:06:18
[2025-04-02 19:26] VITALS: BP 130/61; PULSE 98; RESP 16; TEMP 36.7; O2SAT 93; BMI 18.7
--- NOTE | 2025-04-02 19:32 | ED_ITS ---
HPI - Extremity Injury (Lower) General Chief Complaint: Extremity Injury, Lower Stated Complaint: L torn meniscus, bone popped out of place Time Seen by Provider: 04/02/25 23:27 Source: patient Limitations: no limitations History of Present Illness ED Provider: Lilo Harris PA-C HPI Narrative: 64-year-old female with a history of known osteoarthritis of bilateral knees, fibromyalgia, bipolar disorder, ADHD, PTSD, cannabis use disorder, benzodiazepine abuse, who presents with ongoing left knee pain. Patient states she has been having discomfort since September. Her pain has increased in severity. She was seen by her orthopedist last week, Dr. Temple, she received bilateral joint injections of the knees. Denies inability to range the joint, no redness no swelling no fever. Related Data Home Medications ?Medication ?Instructions ?Recorded ?Confirmed methocarbamol 750 mg tablet 750 mg PO Q8H PRN 03/07/25 03/07/25 divalproex 500 mg tablet,extended 500 mg PO BEDTIME release 24 hr Previous Rx's ?Medication ?Instructions ?Recorded cholecalciferol (vitamin D3) 50 50 mcg PO DAILY #30 ca ps 10/29/24 mcg (2,000 unit) capsule (Vitamin D3) docusate sodium 100 mg capsule 100 mg PO BID PRN const ipation #60 10/29/24 caps guanfacine 1 mg tablet,extended 1 mg PO QID 30 days #1 20 tabs 10/29/24 release 24 hr ibuprofen 400 mg tablet 400 mg PO Q6H PRN muscle ivana n #0 10/29/24 tabs lidocaine 4 % topical patch 1 patch transdermal DAILY #30 ea 10/29/24 (Lidocaine Pain Relief) pregabalin 150 mg capsule 150 mg PO TID #90 caps 10/29 sodium chloride 0.65 % nasal spray 1 spray intranasal Q1H PRN Dryness 10/29/24 aerosol (Deep Sea Nasal) #0 mL zolpidem 10 mg tablet (Ambien) 10 mg PO BEDTIME PRN sl eep #30 tabs 11/06/24 rosuvastatin 5 mg tablet 5 mg PO Q2D 3 months #45 tab s 11/08/24 clonazepam 2 mg tablet (Klonopin) 2 mg PO BEDTIME #7 t abs 12/05/24 levothyroxine 50 mcg tablet 50 mcg PO DAILY@0600 #30 t abs 12/05/24 lithium carbonate 300 mg tablet 150 mg (1/2 x 300 mg) PO DAILY 30 12/05/24 days #15 tabs modafinil 200 mg tablet 200 mg PO QAM #30 tabs 12/05 meloxicam 15 mg tablet 15 mg PO DAILY PRN pain (sca le 12/07/24 score 4-6) #20 tabs Diabetic ensure drink #60 ea 12/26/24 pramipexole 0.5 mg tablet 0.5 mg PO TID 30 days #90 ta bs 01/24/25 albuterol sulfate 90 mcg/actuation 2 puff inhalation Q 4-6H PRN 03/06/25 aerosol inhaler (Ventolin HFA) wheezing 30 days #1 inh aler fluticasone 250 mcg-salmeterol 50 1 inh inhalation BID COPD 30 days 03/07/25 mcg/dose blistr powdr for #60 ea inhalation (Wixela Inhub) nicotine 21 mg/24 hr daily 1 patch transdermal DAILY q uit 03/07/25 transdermal patch smoking 28 days #28 ea ketorolac 10 mg tablet 10 mg PO Q6H PRN pain #20 ta bs 04/03/25 methocarbamol 750 mg tablet 1,500 mg (2 x 750 mg) PO Q 8H PRN 04/03/25 pain, moderate #24 tabs methylprednisolone 4 mg tablets in 4 mg PO QAM #21 ea 04/03/25 a dose pack (Medrol (Jluis)) Allergies Allergy/AdvReac Type Severity Reaction Status Date / Time olanzapine (From ZYPREXA) AdvReac Intermediate RLS Verified 04/02/25 19:31 symptoms clonidine AdvReac RLS Verified 04/02/25 19:31 diphenhydramine (From AdvReac RLS Verified 04/02/25 19:31 Benadryl) hydroxyzine AdvReac RLS Verified 04/02/25 19:31 melatonin AdvReac RLS Verified 04/02/25 19:31 atypical antipsychotics AdvReac Severe This class Uncoded 04/02/25 19:31 appears to potentiate RLS/Akathesia Review of Systems Review of Systems: Yes all other systems are reviewed and are negative Constitutional: Constitutional: Denies fatigue and Denies fever(s) Musculoskeletal: Musculoskeletal: Reports arthralgias and Denies joint swelling Integumentary/Breasts: Skin/Breast: Denies erythema Endocrine: Endocrine: Denies fatigue PMFSH Past Medical History Attestation statement: The following information was validated with the patient. 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 [id number] ADHD Hypothyroidism Polysubstance use disorder Cannabis use disorder Cocaine use disorder Acute medication-induced akathisia Osteopenia of multiple sites Syncope Type II diabetes mellitus Fibromyalgia Benzodiazepine abuse RLS (restless legs syndrome) COPD (chronic obstructive pulmonary disease) HLD (hyperlipidemia) Surgical History History of vaginal hysterectomy History of cataract surgery Family History Family History Mother CAD (coronary artery disease) Father Alcoholism Son Substance use disorder Son Substance use disorder Social History Social History Household Members: Spouse Household Members Other:: son's girlfriend Housing: Apartment Do you presently have visiting nurse or other home services: No Unable to assess alcohol history related to: Unknown Alcohol intake: never Comment: Pt reports falling d/t excessive intake of Benzo's prior to admission Patient Tobacco Use Status: Current everyday Tobacco user Tobacco use type: Cigarette Cigarette Packs Per Day: 1 Cigarettes Per Day: 15 Years Smoked: 45 e-Cigarette/Vaping Use: Never Used Second Hand Smoke Exposure: No Substance Use Type: Marijuana Advance Directives Date on File: 06/05/24 service: No Current occupational status: unemployed Sexual orientation: Straight/Heterosexual Cognitive needs: No Hearing needs: No Vision needs: No Physical Exam Vital Signs: Vital Signs: Last Vital Signs Temp 97.8 F 04/03/25 00:14 Pulse 78 04/03/25 00:14 Resp 16 04/03/25 00:14 BP 128/79 04/03/25 00:14 Pulse Ox 95 04/03/25 00:14 O2 Del Method Room Air 04/03/25 00:14 BMI result Body Mass Index 18.7 Const: Other: Alert, anxious, tearful Orientation/consciousness: patient oriented x3 Resp: Effort & Inspection: normal respiratory effort Cardio: Other: Normal peripheral perfusion Skin: Other: Warm dry no rash Neuro: General: patient oriented x3, gait normal, no focal motor deficits and CN's II-XI intact bilaterally Extrem: Other: No swelling, erythema or warmth of the joint, she has full range of motion in his technically ambulatory Psych: Other: Anxious, cooperative Course Course Course Narrative: This is a Rapid Medical Examination (RME) performed by Angélica Chong PA-C in triage. Full HPI, ROS, assessment and treatment plan per primary provider in the Main ED. Hx: 64 yo F here w/ atraumatic left knee pain that began while getting out of bed. taking motrin and icing without relief. reports seeing ortho last and was told she was going to get an xray however has not received a call. has not been able to reach the office. no trauma/injury/fall. hx torn meniscus. PE/vitals: ambulating with steady gait. Plan: xrs Medications Administered Discontinued Medications Generic Name Dose Route Start Last Admin Trade Name Rick PRN Reason Stop Dose Admin Ketorolac Tromethamine 15 mg 04/02/25 23:52 04/03/25 00:04 Ketorolac Tromethamine 15 Mg/Ml Vial IM 04/02/25 23:53 15 mg ONCE ONE Administration Methocarbamol 1,500 mg 04/02/25 23:52 04/03/25 00:04 Methocarbamol 750 Mg Tablet PO 04/02/25 23:53 1,500 mg ONCE ONE Administration Prednisone 10 mg 04/02/25 23:52 04/03/25 00:04 Prednisone 10 Mg Tablet PO 04/02/25 23:53 10 mg ONCE ONE Administration Medical Decision Making Medical Decision Making [facility] Narrative: 64-year-old female with a history of known osteoarthritis of bilateral knees, fibromyalgia, bipolar disorder, ADHD, PTSD, cannabis use disorder, benzodiazepine abuse, who presents with ongoing left knee pain. Patient states she has been having discomfort since September. Her pain has increased in severity. She was seen by her orthopedist last week, Dr. Temple, she received bilateral joint injections of the knees. Denies inability to range the joint, no redness no swelling no fever. Problem: Known arthritis, fibromyalgia, psychiatric illness, substance abuse History: Per patient I have considered the following differential diagnoses: Fracture, dislocation, sprain, septic joint Plan: The patient here with acute on chronic pain, she has no mechanism of injury, fracture dislocation least likely. X-rays ordered from triage, she has significant arthritis. There were no exam findings consistent with a septic joint. We will treat accordingly. Advising her to follow up with her orthopedist. We will send with a knee immobilizer and crutches. I have independently reviewed the following tests: X-ray left knee:Findings: No acute or displaced fracture. No subluxation. No significant joint effusion. No intra-articular loose bodies. Moderate tricompartmental osteoarthritis demonstrating progression when compared to exam from 2022. No acute soft tissue abnormality. Impression: 1. No acute fracture or subluxation. 2. Additional findings as above. Differential Diagnosis Differential Diagnoses: The differential diagnosis associated with the presentation includes See MDM Admission/Observation Consideration of admission/observation: Escalation of care including admission/observation considered Not applicable Radiology Impression Discussion of test interpretation with radiology: I have reviewed the radiologist's reading. Discharge Plan Discharge Clinical Impression: Tricompartment osteoarthritis of left knee Patient Disposition: Home, Self-Care Instructions: Osteoarthritis (ED) Additional Instructions: The x-ray revealed that you has significant arthritic changes that have progressed since 2022. See home care instructions. Use the knee immobilizer to support and stabilize the joint, use the crutches to ambulate, bear weight as tolerated. Use the ketorolac as directed this is an anti-inflammatory, take it with food. Take the steroid taper as directed, this is a 2nd anti-inflammatory. Use the methocarbamol as needed for further discomfort, this is a muscle relaxant. Continue to follow up with your orthopedist as needed. Prescriptions: New methylprednisolone [Medrol (Jluis)] 4 mg tablets,dose pack 4 mg PO QAM Qty: 21 0RF Rx Instructions: Take per package instructions ketorolac 10 mg tablet 10 mg PO Q6H PRN (Reason: pain) Qty: 20 0RF Rx Instructions: maximum total duration of 5 days from all oral, intranasal, or parenteral formulations. The patient received an intramuscular dose of Toradol here in the emergency room. methocarbamol 750 mg tablet 1,500 mg PO Q8H PRN (Reason: pain, moderate) Qty: 24 0RF No Action modafinil 200 mg tablet 200 mg PO QAM Qty: 30 0RF clonazepam [Klonopin] 2 mg tablet 2 mg PO BEDTIME Qty: 7 0RF Rx Instructions: administer 30 minutes before bedtime levothyroxine 50 mcg tablet 50 mcg PO DAILY@0600 Qty: 30 3RF lithium carbonate 300 mg tablet 150 mg PO DAILY 30 Days Qty: 15 0RF meloxicam 15 mg tablet 15 mg PO DAILY PRN (Reason: pain (scale score 4-6)) Qty: 20 0RF (DME) Diabetic ensure drink See Rx Instructions .Route .MEDSUPPLY Qty: 60 11RF Rx Instructions: Diabetic ensure drink twice daily as directed pramipexole 0.5 mg tablet 0.5 mg PO TID 30 Days Qty: 90 1RF albuterol sulfate [Ventolin HFA] 90 mcg/actuation HFA aerosol inhaler 2 puff inhalation Q4-6H PRN (Reason: wheezing) 30 Days Qty: 1 3RF divalproex 500 mg tablet extended release 24 hr 500 mg PO BEDTIME zolpidem [Ambien] 10 mg tablet 10 mg PO BEDTIME PRN (Reason: sleep) Qty: 30 0RF ibuprofen 400 mg Tablet 400 mg PO Q6H PRN (Reason: muscle pain) Qty: 0 0RF Deep Sea Nasal 0.65 % Aerosol,Rainbow 1 spray intranasal Q1H PRN (Reason: Dryness) Qty: 0 0RF pregabalin 150 mg Capsule 150 mg PO TID Qty: 90 0RF lidocaine [Lidocaine Pain Relief] 4 % Adhesive Patch,Medicated 1 patch transdermal DAILY Qty: 30 0RF Protocol: Apply to: Apply to: affected area docusate sodium 100 mg capsule 100 mg PO BID PRN (Reason: constipation) Qty: 60 0RF cholecalciferol (vitamin D3) [Vitamin D3] 50 mcg (2,000 unit) capsule 50 mcg PO DAILY Qty: 30 0RF guanfacine 1 mg tablet extended release 24 hr 1 mg PO QID 30 Days Qty: 120 2RF Rx Instructions: Take one tablet 4 times a day at 7am, 12pm and 5pm, and bedtime rosuvastatin 5 mg tablet 5 mg PO Q2D 90 Days Qty: 45 3RF methocarbamol 750 mg tablet 750 mg PO Q8H PRN nicotine 21 mg/24 hr patch 24 hour 1 patch transdermal DAILY 28 Days Qty: 28 1RF fluticasone propion-salmeterol [Wixela Inhub] 250-50 mcg/dose blister with device 1 inh inhalation BID 30 Days Qty: 60 5RF Interventions: ED Discharge Assessment Last Done: 04/03/25 00:14 Discharge Date/Time: 04/03/25 00:15 Print Language: Kyrgyz
[2025-04-02 23:13] VITALS: BP 128/79; PULSE 78; TEMP 36.6; O2SAT 95
--- NOTE | 2025-04-02 23:41 | PC.NURSE ---
notified provider pt wanting to be seen.
--- NOTE | 2025-04-03 00:12 | PC.NURSE ---
medicated per mar, knee immobilize applied and education on crutches, reviewed discharge instructions with pt. pt verbalized understanding, no sign of distress upon discharge.
[2025-04-03 00:14] VITALS: BP 128/79; PULSE 78; RESP 16; TEMP 36.6; O2SAT 95
== END 2025-04-03 00:15 | disposition home or self-care (01) ==
PROVIDERS: Emergency Provider Emergency Medicine; PCP Internal Medicine
DX: M17.12 Unilateral primary osteoarthritis, left knee (principal); M25.562 Pain in left knee
CPT/HCPCS: 73564; 96372; 99284; J1885

== ENCOUNTER → 2025-04-02 19:30 | Outpatient (BNV) | payer OTHER, SELFPAY | PROVIDERS: PCP Internal Medicine; Visit Provider Radiology Diagnostic Radiology | DX: M25.562 Pain in left knee (principal) | CPT/HCPCS: 73564 ==

== ENCOUNTER 2025-04-04 10:52 | Outpatient (AMB) | payer OTHER, SELFPAY ==
--- OUTSIDE RECORDS SUMMARY | 2023-10-21 07:00 | XMS_ITS ---
Author Organization [facility] Address [address] [place] [phone] Care Team Providers Care Sales Driver Name Role Phone [facility] Primary Care Provider Karoline Carcamo Unavailable Encounters Encounter Location Date Provider Diagnosis [facility] [address] [place] [phone] 10/21/2023 Karoline Carcamo Plan Of Treatment No Information Progress Notes * Leigh BEEBEOB:1960 (64 yo F)Acc No.[id number]:10/21/2023 Case Management Patient: Jaja MORENO Provider: Jelani Carcamo :1960 A ge:62 Y S ex:Female Date:10/21/2023 Address:[address] [place], [place] [phone] Pcp:[facility] Subjective: * Chief Complaints: * * Medical History: Objective: Assessment: Plan: * Treatment: * Images: Billing Information: * Visit Code: * Procedure Codes: Care Plan Details* * Electronic signature of Jose Ramon Carcamo on 04/04/2025 at 12:24 PM EDT Sign off status: Pending * Provider: Jelani Carcamo Date: 0 10/21/2023 Generated for Jay Jay cintron/Morales/eTransmitting on: 0 04/04/2025 12:24 PM EDT
--- OUTSIDE RECORDS SUMMARY | 2025-04-03 20:00 | XMS_ITS | Clinical Summary ---
Author Organization Unknown Care Team Providers Care Missile Inspector Name Role Phone LYNNE MORALES, NOREEN ROSENTHAL Unavailable Unavaila joe VIRAMONTES RN, ASHLEY Unavailable Unavailable Payers Payer Name Policy Type Policy Number Effective Date Expira tion Date [facility] ADV [id number] [place] [id number] [facility] ONE CARE [place] [id number] [place] [id number] Problems Condition Name Condition Details Condition Category [...] 11-11 00:00: 00 12-02 23:59 :00 No [id number] Per instruc tions AT BEDTIME Per instructio ns AT BEDTIME (route: oral) Med Classific ation: Central Nervous System Agents oxcarbazepi ne 300 mg tablet 11-11 00:00: 00 12-02 23:59 :00 No [id number] Per instruc tions TWICE A DAY Per instructio ns TWICE A DAY (route: oral) Med Classific ation: Central Nervous System Agents pramipexole 0.25 mg tablet 3-26 00:00: 00 12-02 23:59 :00 No [id number] Per instruc tions TWICE A DAY Per instructio ns TWICE A DAY (route: oral) Med Classific ation: Central Nervous System Agents atorvastati n 20 mg tablet 12-27 00:00: 00 12-02 23:59 :00 No [id number] 1 tablet BEDTIME 1 tablet BEDTIME (route: oral) Med Classific ation: Cardiovas cular Therapy Agents levothyroxi ne 50 mcg capsule 12-27 00:00: 00 12-02 23:59 :00 No [id number] 1 capsule DAILY 1 capsule DAILY (route: oral) Med Classific ation: Endocrine metformin 500 mg tablet 12-27 00:00: 00 12-02 23:59 :00 No [id number] 1 tablet 2 TIMES DAILY 1 tablet 2 TIMES DAILY (route: oral) Med Classific ation: Endocrine sertraline 50 mg tablet 12-27 00:00: 00 12-02 23:59 :00 No [id number] 1 tablet DAILY 1 tablet DAILY (route: oral) Med Classific ation: Central Nervous System Agents albuterol sulfate HFA 90 mcg/actuati on aerosol inhaler 12-06 00:00: 00 Yes [id number] 2 puff DIRECTED 2 puff DIRECTED (route: inhalation ) Med Classific ation: Respirato ry Therapy Agents Ambien 10 mg tablet 12-06 00:00: 00 Yes [id number] 1 tablet BEDTIME 1 tablet BEDTIME (route: oral) Med Classific ation: Central Nervous System Agents cholecalcif va (vitamin D3) 50 mcg (2,000 unit) tablet 12-06 00:00: 00 Yes [id number] 1 tablet DAILY 1 tablet DAILY (route: oral) Med Classific ation: Electroly te Balance-N utritiona l Products clonazepam 2 mg tablet 12-06 00:00: 00 Yes [id number] 1 tablet BEDTIME 1 tablet BEDTIME (route: oral) Med Classific ation: Central Nervous System Agents Colace 100 mg capsule 12-06 00:00: 00 01-31 23:59 :00 No [id number] 1 capsule 2 TIMES DAILY 1 capsule 2 TIMES DAILY (route: oral) Med Classific ation: Gastroint estinal Therapy Agents divalproex 125 mg capsule,del ayed release sprinkle 12-06 00:00: 00 Yes [id number] 1 capsule 2 TIMES DAILY 1 capsule 2 TIMES DAILY (route: oral) Med Classific ation: Central Nervous System Agents ibuprofen 200 mg tablet 12-06 00:00: 00 Yes [id number] 2 tablet EVERY 6 HOURS 2 tablet EVERY 6 HOURS (route: oral) Med Classific ation: Analgesic , Anti-infl ammatory or Antipyret ic levothyroxi ne 50 mcg tablet 12-06 00:00: 00 Yes [id number] 1 tablet EVERY AM 1 tablet EVERY AM (route: oral) Med Classific ation: Endocrine Lidocaine Pain Relief 4 % topical patch 12-06 00:00: 00 01-31 23:59 :00 No [id number] 1 adhesiv e patch, medicat ed DAILY 1 adhesive patch, medicated DAILY (route: topical) Med Classific ation: Dermatolo gical lithium carbonate 150 mg capsule 12-06 00:00: 00 Yes [id number] 1 capsule DAILY 1 capsule DAILY (route: oral) Med Classific ation: Central Nervous System Agents methocarbam ol 500 mg tablet 12-06 00:00: 00 01-31 23:59 :00 No [id number] 1 tablet EVERY 8 HOURS 1 tablet EVERY 8 HOURS (route: oral) Med Classific ation: Locomotor System modafinil 200 mg tablet 12-06 00:00: 00 Yes [id number] 1 tablet EVERY AM 1 tablet EVERY AM (route: oral) Med Classific ation: Central Nervous System Agents naproxen 500 mg tablet 12-06 00:00: 00 Yes [id number] 1 tablet 2 TIMES DAILY 1 tablet 2 TIMES DAILY (route: oral) Med Classific ation: Analgesic , Anti-infl ammatory or Antipyret ic pramipexole 0.5 mg tablet 12-06 00:00: 00 Yes [id number] 1 tablet 3 TIMES DAILY 1 tablet 3 TIMES DAILY (route: oral) Med Classific ation: Central Nervous System Agents sodium chloride 0.65 % nasal spray aerosol 12-06 00:00: 00 01-31 23:59 :00 No [id number] 1 spray DIRECTED 1 spray DIRECTED (route: nasal) Med Classific ation: Respirato ry Therapy Agents rosuvastati n 5 mg tablet 12-06 00:00: 00 Yes [id number] 1 tablet EVERY OTHER DAY 1 tablet EVERY OTHER DAY (route: oral) Med Classific ation: Cardiovas cular Therapy Agents Vital Signs Vital Name Observation Time Observation Value Commen ts Pulse 2025-03-21 11:50:00.000 88 /min Pulse 2025-03-14 12:47:00.000 84 /min Pulse 2025-02-19 11:40:00.000 88 /min O2 Saturation (%) 2025-03-21 11:50:00.000 96 % O2 Saturation (%) 2025-03-14 12:47:00.000 94 % O2 Saturation (%) 2025-02-19 11:40:00.000 95 % Respirations 2025-03-21 11:50:00.000 20 /min Respirations 2025-03-14 12:47:00.000 20 /min Respirations 2025-02-19 11:40:00.000 20 /min Weight (lbs) 2025-03-21 11:50:00.000 96.8 [lb_av] Weight (lbs) 2025-02-19 12:33:00.000 108.9 [lb_av] Systolic Blood Pressure 2025-03-21 11:50:00.000 86 mm[ Hg] Systolic Blood Pressure 2025-03-14 12:47:00.000 109 mm [Hg] Systolic Blood Pressure 2025-02-19 11:40:00.000 92 mm[ Hg] Diastolic Blood Pressure 2025-03-21 11:50:00.000 64 mm [Hg] Diastolic Blood Pressure 2025-03-14 12:47:00.000 84 mm [...] AWARENESS FOR SAFETY AND WILL NOTIFY CLINICAL MAPPER AND PHYSICIAN/PROVIDER WITH ANY CHANGE IN CONDITION. [code = SKILLED NURSE WILL MAINTAIN SITUATIONAL AWARENESS FOR SAFETY AND WILL NOTIFY CLINICAL MAPPER AND PHYSICIAN/PROVIDER WITH ANY CHANGE IN CONDITION.] [...] CARE WILL BE ESTABLISHED THAT MEETS PATIENT'S FCI NEEDS AND INCLUDES PATIENT GOAL FOR HOME [...] End Date/Time Encounter Type Admission Type Attending [facility] Care Department Encounter ID Discharge Date Discharge Status Discharge Condition Discharge Reason Percent Goals Met 2025-02-04 00:00:00 2025-04-04 00:00:00 Outpatient RECERTIFIC ASHLEY FINLEY [facility] [id number] 75.00
--- NOTE | 2025-04-04 10:53 | MHC.OFFVIS ---
Intake Visit Reasons: OV- Left knee pain/ requesting MRI Intake Note: Jaja is a 64 year old female who presents today VIA telephone visit to discuss left Knee MRI. Patient reports that she has had XR in the past and recent xrays that have shown recent worsening OA. She was [place] [facility] [place] she was given a brace and crutches. She explains that having XRs only does not sit right with her and wants MRI to see what is going on in the knee. She wants to avoid surgery as she is scared to have surgery, but would like to know what is going on in the knee. Allergies olanzapine (From ZYPREXA) Adverse Reaction (Intermediate, Verified 04/02/25 19:31) RLS symptoms clonidine Adverse Reaction (Verified 04/02/25 19:31) RLS diphenhydramine (From Benadryl) Adverse Reaction (Verified 04/02/25 19:31) RLS hydroxyzine Adverse Reaction (Verified 04/02/25 19:31) RLS melatonin Adverse Reaction (Verified 04/02/25 19:31) RLS atypical antipsychotics Adverse Reaction (Severe, Uncoded 04/02/25 19:31) This class appears to potentiate RLS/Akathesia HPI HPI OV- Left knee pain/ requesting MRI: Details: Jaja is a 64 year old female who presents today VIA telephone visit to discuss left Knee MRI. Patient reports that she has had XR in the past and recent xrays that have shown recent worsening OA. She was seen at [facility] where she was given a brace and crutches. She explains that having XRs only does not sit right with her and wants MRI to see what is going on in the knee. She wants to avoid surgery as she is scared to have surgery, but would like to know what is going on in the knee. 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 ADHD Hypothyroidism Polysubstance use disorder Cannabis use disorder Cocaine use disorder Acute medication-induced akathisia Osteopenia of multiple sites Syncope Type II diabetes mellitus Fibromyalgia Benzodiazepine abuse RLS (restless legs syndrome) COPD (chronic obstructive pulmonary disease) HLD (hyperlipidemia) Surgical History History of vaginal hysterectomy History of cataract surgery Family History Mother CAD (coronary artery disease) Father Alcoholism Son Substance use disorder Son Substance use disorder Social History Household Members: Spouse Household Members Other:: son's girlfriend Housing: Apartment Do you presently have visiting nurse or other home services: No Unable to assess alcohol history related to: Unknown Alcohol intake: never Comment: Pt reports falling d/t excessive intake of Benzo's prior to admission Patient Tobacco Use Status: Current everyday Tobacco user Tobacco use type: Cigarette Cigarette Packs Per Day: 1 Cigarettes Per Day: 15 Years Smoked: 45 e-Cigarette/Vaping Use: Never Used Second Hand Smoke Exposure: No Substance Use Type: Marijuana Advance Directives Date on File: 06/05/24 service: No Current occupational status: unemployed Sexual orientation: Straight/Heterosexual Cognitive needs: No Hearing needs: No Vision needs: No Telehealth Telehealth Telehealth Platform: Telephone Location of provider rendering services: practice address Location of patient: address on file Patient Identification confirmed using: Name, : Yes Telehealth method: voice only Patient verbally consented to treatment: Yes Patient verbally consented to billing insurance company: Yes Patient informed of any privacy concerns related to visit: Yes Minutes spent on Phone/Video with Pt.: 10 Assessment & Plan Assessment & Plan (1) Osteoarthritis of left knee: Code(s): M17.12 - Unilateral primary osteoarthritis, left knee Category: Medical Plan: I discussed her knee situation with her. She is getting better with the steroids that the ED prescribed and she describes a scenario of swelling and osteoarthritic pain. I am happy to order an MRI but she is pretty adamant that she does not want surgery and I feel like it would be much more prudent to see her back in a month and go from there. Coding Level of Care Code Tele Est Pt Level 3 (36360) Diagnoses Osteoarthritis of left knee M17.12
--- OUTSIDE RECORDS SUMMARY | 2025-04-04 12:25 | XMS_ITS | Encounter Summary ---
Author Organization [facility] Address [address] [place] [address] Care Team Providers Care Tool Engineer Name Role Phone Unavailable Primary Care Provider Unavailabl e Reason for Visit * Reason Onset Date Comments insurance information/self pay 08/17/2024 Encounter Details Date Type Department Care Team (Late st Contact Info) Description 08/17/2024 Telephone C ADULT DENTAL [address], [place] [phone] Kj Zurita, SAEID [address], [place] [phone] insurance information/self pay Social History Tobacco Use [...] 8:27 AM EST Patient states she has [employer] for insurance but does not have the [...]
--- OUTSIDE RECORDS SUMMARY | 2025-04-04 12:25 | XMS_ITS | Patient Health Record ---
Author Organization [facility] Address [address] [place] [address] Care Team Providers Care Careers Adviser Name Role Phone Julio (RETIRED) Parth MORALES Primary Care Provide r Unavailable Darion Brooks Unavailable [phone] Reason For Referral No Information Medications Medication SIG (Take, Route, Frequency, Duration) Notes Start Date End Date Status [place] Carbonate 300 MG 3 capsule at be [...] Problem Status W/U Status Risk Notes Problem [id number] Encounter for screening for malignant neoplasm of colon (Z12.11) Active confirmed Problem [id number] Preprocedural examination (Z01.818) Active confirmed Plan Of Treatment Future Test Test Name Order Date COLONOSCOPY 04/12/2019 Insurance Providers Payer Name Payer Address Payer Phone Subscriber Number Group Number Insured Name Patient Relationship to Insured Coverage Start Date Coverage End Date MEDICARE OF [place] [address] [place] [address] [id number] FARAZ KNOX Self - patient is the insured MEDICAID OF [facility] [address] [place] [address] [id number] FARAZ KNOX Self - patient is the insured Medical (General) History Medical History History ICD Code Asthma Denies [place],DM,CVA,renal disease Bipolar depression Hypothyroidism Hyperlipidemia Surgical History Surgery Date(Month/Year) Partial hysterectomy 2001 Cataracts-lens implants 2019
--- OUTSIDE RECORDS SUMMARY | 2025-04-04 12:25 | XMS_ITS | Encounter Summary ---
Author Organization [facility] Address [address] [address] Phone Care Team Providers Care Bike Mechanic Name Role Phone Parth Kim MD Primary Care Provider Encounter Details Date Type Department Care Team (Latest Contact Info) Description 11/22/2022 Transcribe Orders [facility] Specimen Processing [address] [place] [id number] Bisi Cervantes PA-C [address] [place] [address] [email or web address] Encounter for screening (Primary Dx) Social [...] 4:41 PM EDT Aysha Cuadra, RN * [place] Suicide Severity Rating Scale (Screener/Recent Self-Report) Question [...] PM EDT) URINE CANNABINOIDS Positive(A) NONE DETECTED [facility] Comment:Cutoff: 50 ng/mL URINE COCAINE METAB NONE DETECTED NONE DETECTED [facility] Comment:Cutoff: 300 ng/mL URINE AMPHETAMINES NONE DETECTED NONE DETECTED [facility] Comment:Cutoff: 1000 ng/mL URINE METHADONE NONE DETECTED NONE DETECTED [facility] Comment:Cutoff: 300 ng/mL URINE OPIATES NONE DETECTED NONE DETECTED [facility] Comment:Cutoff: 300 ng/mL URINE PHENCYCLIDINE NONE DETECTED NONE DETECTED [facility] Comment:Cutoff: 25 ng/mL URINE OXYCODONE NONE DETECTED NONE DETECTED [facility] Comment:Cutoff: 300 ng/ml URINE BARBITURATES NONE DETECTED NONE DETECTED [facility] Comment:Cutoff: 200 ng/mL URINE BENZODIAZEPINE NONE DETECTED NONE DETECTED [facility] Comment:Cutoff: 200 ng/mL URINE BUPRENORPHINE NONE DETECTED NONE DETECTED [facility] Comment: Cutoff: 5 ng/mL INTERPRETATION FOR TOXICOLOGY PANEL: These results are unconfirmed and should be used for Medical Treatment purposes only. Urine (Urine) 11/22/2022 7:1 4 PM EDT 11/22/2022 7:15 PM EDT us Bisi Cervantes PA-C URINE ORDERABLES Final Result [address] [address] documented in this encounter Visit Diagnoses Diagnosis Encounter for screening- Primary documented in this encounter Care Teams Bike Mechanic Relationship Specialty Start Date End Date Parth Kim MD [address] [place] [address] [place] [address] PCP - General Internal Medicine 11/18/19 documented as of this encounter Additional Source Comments The information contained in this document represents components of the legal health record. It is not the complete legal health record.[facility]
== END 2025-04-04 11:41 | disposition home or self-care (01) ==
LOC: HO.HOS 10:52
PROVIDERS: PCP Internal Medicine; Visit Provider Orthopaedic Surgery
DX: M17.12 Unilateral primary osteoarthritis, left knee (principal)
CPT/HCPCS: 99213

== ENCOUNTER 2025-05-13 10:42 | Outpatient (AMB) | payer OTHER, SELFPAY ==
[2025-05-13 10:45] VITALS: BMI 18.5
--- NOTE | 2025-05-13 10:45 | A.OFFVIS_ITS ---
Vital Signs 05/13/25 10:45 Height 5 ft 1 in Weight 98 lb BMI 18.5 Intake Visit Reasons: OV- Left knee OA Intake Note: Jaja is a 64 year old female who presents today for a follow up of her Bilateral Knee Pain. Bilateral Knee injections were administered on 03/28/25. After this patient called reporting significant pain of the Left knee and requesting an MRI. Patient reports that she is doing well, she has pain when sleeping on her side. Needs to have a pillow between her legs to feel comfortable. She states that she has meniscal tears in both of her knees, she is adamant that her symptoms are indicative of her arthritis. She is adamant about having an MRI so she knows exactly what is going on in her knee. She feels popping in the left and after the popping she has a visible lump on the medial aspect of the left knee. She feels that he last injection worsened her pain Allergies olanzapine (From ZYPREXA) Adverse Reaction (Intermediate, Verified 04/02/25 19:31) RLS symptoms clonidine Adverse Reaction (Verified 04/02/25 19:31) RLS diphenhydramine (From Benadryl) Adverse Reaction (Verified 04/02/25 19:31) RLS hydroxyzine Adverse Reaction (Verified 04/02/25 19:31) RLS melatonin Adverse Reaction (Verified 04/02/25 19:31) RLS atypical antipsychotics Adverse Reaction (Severe, Uncoded 04/02/25 19:31) This class appears to potentiate RLS/Akathesia HPI HPI OV- Left knee OA: Details: aJja returns today after having had steroids prescribed. We had discussed MRI in the past but we decided to wait. She describes a painful popping in her left knee. This occurs and she has a difficult time extending her leg and notices a palpable bump on the inside of her joint line that she thinks his fluid. This goes away over time. This is occurred 4-5 times since last visit. [facility] 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 [id number] ADHD Hypothyroidism Polysubstance use disorder Cannabis use disorder Cocaine use disorder Acute medication-induced akathisia Osteopenia of multiple sites Syncope Type II diabetes mellitus Fibromyalgia Benzodiazepine abuse RLS (restless legs syndrome) COPD (chronic obstructive pulmonary disease) HLD (hyperlipidemia) Surgical History History of vaginal hysterectomy History of cataract surgery Family History Mother CAD (coronary artery disease) Father Alcoholism Son Substance use disorder Son Substance use disorder Social History Household Members: Spouse Household Members Other:: son's girlfriend Housing: Apartment Do you presently have visiting nurse or other home services: No Unable to assess alcohol history related to: Unknown Alcohol intake: never Comment: Pt reports falling d/t excessive intake of Benzo's prior to admission Patient Tobacco Use Status: Current everyday Tobacco user Tobacco use type: Cigarette Cigarette Packs Per Day: 1 Cigarettes Per Day: 15 Years Smoked: 45 e-Cigarette/Vaping Use: Never Used Second Hand Smoke Exposure: No Substance Use Type: Marijuana Advance Directives Date on File: 06/05/24 service: No Current occupational status: unemployed Sexual orientation: Straight/Heterosexual Cognitive needs: No Hearing needs: No Vision needs: No Physical Exam Vital Signs: BMI result Body Mass Index 18.5 Extrem Other: No tenderness along the medial joint line negative Michele's. No effusion. Assessment & Plan Assessment & Plan (1) Locking of left knee: Code(s): M23.92 - Unspecified internal derangement of left knee Category: Medical Plan: This is a 64-year-old woman with mechanical symptoms of catching and locking in her left knee. MRI was ordered. She will see me when that is complete. Orders: Orders MR knee LT wo con Today M23.92 - Unspecified internal derangement of left knee Coding Level of Care Code Est Pt Level 3 (41670) Diagnoses Locking of left knee M23.92
--- OUTSIDE RECORDS SUMMARY | 2025-05-13 12:07 | XMS_ITS | Encounter Summary ---
Author Organization [employer] Address [address] [facility] [address] [place] [address] Care Team Providers Care Registered Dietitian Name Role Phone Unavailable Primary Care Provider Unavailabl e Encounter Details Date Type Department Care Team (Latest Contact Info) Description 10/26/2018 Abstract HHC CONVERSIONS Dental, Provider, DDS Social History Tobacco [...]
--- OUTSIDE RECORDS SUMMARY | 2025-05-13 12:07 | XMS_ITS | Clinical Summary ---
Author Organization [employer] Address [address] [facility] 7[address] [place] [address] Care Team Providers Care Acute Care Occupational Therapist Name Role Phone Unavailable Primary Care Provider [...] 1962 FIT 1962 FOBT 1962 Sigmoidoscopy 1962 Disability Screening 1962 Alcohol/Substance Use Screening 1974 Tobacco Screening 1974 DTaP/Tdap/Td Vaccines (1 - Tdap) 1981 Pap Smear 11/10/1983 Cervical Cancer Screening 1992 HPV/Cotest 1992 Mammogram 2002 Dental X-Ray: Full Mouth 09/28/2017 09/27/2014 Dental Prophylaxis 04/29/2019 10/26/2018, 12/12/2014 Dental Oral Exam 06/07/2019 12/05/2018, 05/2016, 09/27/2014 Dental X-Ray: Bitewings 10/28/2019 10/27/19 19, 10/23/2015, 09/27/2014 Zoster Vaccines (2 of 2) 04/08/2025 02/11/2025 COVID-19 Vaccine ( season) 2025 06/19/2022, 07/29/2021, 09/29/2020, Additional history exists Influenza Vaccine (#1) 2025 4, 04/27/2023, 10/06/2021, Additional history exists Pneumococcal Vaccine: 50+ Years Completed 02/11/2025, 07/18/2019 RSV Patients and Patients Aged 60 years or older Completed 02/11/2025 HIB Vaccines Aged Out No longer eligi [...] patient's age to complete this topic Meningococcal B Vaccine Aged Out No l onger eligible based on patient's age to complete [...]
--- OUTSIDE RECORDS SUMMARY | 2025-05-13 12:07 | XMS_ITS | Patient Health Record ---
Author Organization [facility] Address [address] [place] [address] Care Team Providers Care Engineer Second Assistant Name Role Phone Julio (RETIRED) Parth MORALES Primary Care Provide r Unavailable Darion Brooks Unavailable [phone] Reason For Referral No Information Medications Medication SIG (Take, Route, Frequency, Duration) Notes Start Date End Date Status Kershaw Carbonate 300 MG 3 capsule at be [...] Problem Status W/U Status Risk Notes Problem [id number] Encounter for screening for malignant neoplasm of colon (Z12.11) Active confirmed Problem [id number] Preprocedural examination (Z01.818) Active confirmed Plan Of Treatment Future Test Test Name Order Date COLONOSCOPY 04/12/2019 Insurance Providers Payer Name Payer Address Payer Phone Subscriber Number Group Number Insured Name Patient Relationship to Insured Coverage Start Date Coverage End Date MEDICARE OF [place] [address] [place] [address] [id number] FARAZ KNOX Self - patient is the insured MEDICAID OF [facility] [address] [place] [phone] [id number] FARAZ KNOX Self - patient is the insured Medical (General) History Medical History History ICD Code Asthma Denies PR,DM,CVA,renal disease Bipolar depression Hypothyroidism Hyperlipidemia Surgical History Surgery Date(Month/Year) Partial hysterectomy 2001 Cataracts-lens implants 2019
--- OUTSIDE RECORDS SUMMARY | 2025-05-13 12:07 | XMS_ITS | Encounter Summary ---
Author Organization [employer] Address [address] [facility] 7[address] [place] [address] Care Team Providers Care Rn Anesthesiology Name Role Phone Unavailable Primary Care Provider Unavailabl e Reason for Visit * Reason Onset Date Comments insurance information/self pay 08/17/2024 Encounter Details Date Type Department Care Team (Late st Contact Info) Description 08/17/2024 Telephone C ADULT DENTAL [address] [place], [place] [phone] Kj Zurita, SAEID [address] [place], [place] [phone] insurance information/self pay Social History Tobacco Use [...] 8:27 AM EST Patient states she has [employer] for insurance but does not have the [...]
--- OUTSIDE RECORDS SUMMARY | 2025-05-13 12:07 | XMS_ITS | Encounter Summary ---
Author Organization [facility] Address [address] [address] Phone Care Team Providers Care Compliance Aide Name Role Phone Parth Kim MD Primary Care Provider Encounter Details Date Type Department Care Team (Latest Contact Info) Description 11/22/2022 Transcribe Orders [facility] Specimen Processing [address] [place] [id number] Bisi Cervantes PA-C [address] [place] [address] [email or web address] Encounter for screening (Primary Dx) Social History [...] 4:41 PM EDT Aysha Cuadra, RN * [place] Suicide Severity Rating Scale (Screener/Recent Self-Report) Question [...] PM EDT) URINE CANNABINOIDS Positive(A) NONE DETECTED [facility] Comment:Cutoff: 50 ng/mL URINE COCAINE METAB NONE DETECTED NONE DETECTED [facility] Comment:Cutoff: 300 ng/mL URINE AMPHETAMINES NONE DETECTED NONE DETECTED [facility] Comment:Cutoff: 1000 ng/mL URINE METHADONE NONE DETECTED NONE DETECTED [facility] Comment:Cutoff: 300 ng/mL URINE OPIATES NONE DETECTED NONE DETECTED [facility] Comment:Cutoff: 300 ng/mL URINE PHENCYCLIDINE NONE DETECTED NONE DETECTED [facility] Comment:Cutoff: 25 ng/mL URINE OXYCODONE NONE DETECTED NONE DETECTED [facility] Comment:Cutoff: 300 ng/ml URINE BARBITURATES NONE DETECTED NONE DETECTED [facility] Comment:Cutoff: 200 ng/mL URINE BENZODIAZEPINE NONE DETECTED NONE DETECTED [facility] Comment:Cutoff: 200 ng/mL URINE BUPRENORPHINE NONE DETECTED NONE DETECTED [facility] Comment: Cutoff: 5 ng/mL INTERPRETATION FOR TOXICOLOGY PANEL: These results are unconfirmed and should be used for Medical Treatment purposes only. Urine (Urine) 11/22/2022 7:1 4 PM EDT 11/22/2022 7:15 PM EDT us Bisi Cervantes PA-C URINE ORDERABLES Final Result [address] [address] documented in this encounter Visit Diagnoses Diagnosis Encounter for screening- Primary documented in this encounter Care Teams Compliance Aide Relationship Specialty Start Date End Date Parth Kim MD [address] [place] [address] [place] [address] PCP - General Internal Medicine 11/18/19 documented as of this encounter Additional Source Comments The information contained in this document represents components of the legal health record. It is not the complete legal health record.[facility]
--- OUTSIDE RECORDS SUMMARY | 2025-05-13 12:09 | XMS_ITS | Patient Health Record ---
Author Organization [facility] Address [address] [place] [address] Care Team Providers Care Asbestos Worker Helper Name Role Phone [facility] Primary Care Provider Karoline Carcamo Unavailable Reason For Referral No Information Plan Of Treatment No Information Insurance Providers Payer Name Payer Address Payer Phone Subscriber Number Group Number Insured Name Patient Relationship to Insured Coverage Start Date Coverage End Date [place] Medicare Part A [employer] [address] [place] [phone] [id number] Jaja Beebe Self - patient is the insured 2 2
--- OUTSIDE RECORDS SUMMARY | 2025-05-13 12:09 | XMS_ITS | Clinical Summary ---
Author Organization [facility] Address [address] [place] [id number] Phone Care Team Providers Care Slack Line Yarder Name Role Phone Parth Kim MD Primary Care Provider Allergies No known active allergies Medications atorvastatin (LIPITOR) 20 MG tablet Take 20 mg by mouth daily. Takes every other day 11/25/2021 Active zolpidem (AMBIEN) 5 MG tablet Take 5 mg by mouth nightly at bedtime as needed for insomnia. 11/17/2021 Active VITAMIN B-1 100 MG tablet Take 100 mg by mouth daily. 10/14/2021 Active pregabalin (LYRICA) 50 MG capsule Take 50 mg by mouth 4 (four) times a day. 10/16/2021 Active pramipexole (MIRAPEX) 0.5 MG tablet Take 0.5 mg by mouth 2 (two) times a day. 09/30/2021 Active pramipexole (MIRAPEX) 0.25 MG tablet Take 0.25 mg by mouth 2 (two) times a day. 11/19/2021 Active multivitamin per tablet Take 1 tablet by mouth daily. 10/14/2021 Active LORazepam (ATIVAN) 0.5 MG tablet Take 0.5 mg by mouth 2 (two) times a day as needed for anxiety. 09/28/2021 Active lithium (LITHOBID) 300 MG ER tablet Take 600 mg by mouth nightly at bedtime. 10/14/2021 Active lamoTRIgine (LAMICTAL) 100 MG IMMEDIATE release tablet Take 250 mg by mouth daily. 11/17/2021 Active hydrOXYzine (ATARAX) 25 MG tablet Take 25 mg by mouth 2 (two) times a day as needed for panic attacks. 11/17/2021 Active haloperidoL (HALDOL) 1 MG tablet Take 2 mg by mouth 3 (three) times a day. 10/16/2021 Active benztropine (COGENTIN) 1 MG tablet Take 1 mg by mouth 2 (two) times a day. 10/15/2021 Active levothyroxine (SYNTHROID, LEVOTHROID) 75 MCG tablet Take 50 mcg by mouth every morning. Active albuterol 90 mcg/actuation inhaler Inhale 2 puffs into the lungs every 6 (six) hours as needed for wheezing. Active citalopram (CELEXA) 20 MG tablet Take 10 mg by mouth daily. Active norethindrone-e thinyl estradiol-iron (ESTROSTEP FE) 1-20(5)/1-30(7) /1mg-35mcg (9) Tab Take 1 tablet by mouth daily. Active mirtazapine (REMERON) 7.5 MG tablet Take 7.5 mg by mouth nightly at bedtime. Active propranoloL (INDERAL) 10 MG immediate release tablet Take 10 mg by mouth 3 (three) times a day. 9a,1p,5p Active OXcarbazepine (TRILEPTAL) 300 MG tablet Take 300 mg by mouth 2 (two) times a day. Active metFORMIN (GLUCOPHAGE) 500 MG tablet Take 500 mg by mouth 2 (two) times a day with meals. Active Active Problems Problem Noted Date Diagnosed Date Depression 12/01/2022 Social History Tobacco Use Types Packs/Day Years Used Date Smoking Tobacco: Every Day Cigarettes 0.5 15 Smokeless Tobacco: Never Tobacco Cessation:Ready to Q uit: No; Counseling Given: No Alcohol Use Standard Drinks/Week Comments Never 0 (1 standard drink = 0.6 oz pur e alcohol) Education Answer Date Recorded Are you interested in more education? Not on jorge luis e 12/13/2022 Are you concerned about learning? Not on file 12/13/2022 No 12/13/2022 No 12/13/2022 Digital Access Answer Date Recorded No 01/07/2023 No 01/07/2023 No 01/07/2023 Reliable internet access at home? Not on file 01/07/2023 Device with a working camera? Not on file Intimate Partner Violence Answer Date R ecorded Are you denied basic needs s uch as food, clothing, or medical care? No 12/01/2022 In the past 12 months have y ou been in a relationship with a person who hurts, threatens, or tries to control you? No 12/01/2022 Are you denied basic needs s uch as food, clothing, or medical care? No 12/01/2022 In the past 12 months have y ou been in a relationship with a person who hurts, threatens, or tries to control you? No 12/01/2022 Comments No Sex and Gender Information Value Date Recorded Sex Assigned at Female 11/18/2019 9:35 AM EDT Legal Sex Female 7:05 PM EST Gender Identity Female 11/18/2019 9:35 AM EDT Sexual Orientation Straight 11/18/2019 9: 35 AM EDT Last Filed Vital Signs Vital Sign Reading Time Taken Comments Blood Pressure 105/66 12/02/2022 7:44 AM EDT Pulse 77 12/02/2022 7:44 AM EDT Temperature 36.3 C (97.3 F) 12/02/2022 7:44 AM EDT Respiratory Rate 16 12/02/2022 7:44 AM EDT Oxygen Saturation 93% 12/02/2022 7:44 AM EDT Inhaled Oxygen Concentration - - Weight 45.4 kg (100 lb) 02/17/2022 12:00 AM EDT Height 154.9 cm (5' 1 ) 02/17/2022 12:00 AM EDT Body Mass Index 18.89 02/17/2022 12:00 AM EDT Plan of Treatment Health Maintenance Due Date Last Done Comments Adult Td,Tdap Booster 1962 LIPID PANEL 1962 TSH LEVEL 1962 DEPRESSION SCREENING 1974 SMOKING Hx and SMOKELESS TOBACCO SCREENING 11/10/1975 HEPATITIS C SCREENING 1980 HIV ONE-TIME SCREENING (18-65 YEARS) 1980 PAP SMEAR 11/10/1983 MAMMOGRAM 2002 COLOGUARD 11/10/2007 COLONOSCOPY 11/10/2007 COLORECTAL CANCER SCREENING 11/10/2007 FIT TEST 11/10/2007 FOBT 11/10/2007 SIGMOIDOSCOPY 11/10/2007 VIRTUAL COLONOSCOPY 11/10/2007 ZOSTER VACCINES (1 of 2) 2012 PNEUMOCOCCAL VACCINES (50+ years) (2 of 2 - PCV) 07/18/2020 07/18/2019 LITHIUM LEVEL 12/02/2022 12/02/2021 CREATININE LEVEL 12/02/2023 12/01/2022, 05/2023, 02/02/2022, Additional history exists INFLUENZA VACCINE (#1) 2025 , 04/27/2019, 04/27/2018, Additional history exists COVID-19 VACCINE (3 - 2024- season) 2025 09/29/2020, 09/08/2020 RSV VACCINE (1 - 1-dose 75+ series) 2037 HEPATITIS A VACCINES Aged Out No long er eligible based on patient's age to complete this topic HIB VACCINES Aged Out No longer eligi ble based on patient's age to complete this topic MENINGOCOCCAL VACCINES (ACWY) Aged Out No longer eligible based on patient's age to complete this topic MENINGOCOCCAL VACCINES (B) Aged Out N o longer eligible based on patient's age to complete this topic Medical Devices Not on file Procedures Procedure Name Priority Date/Time Associated Diagnosis Comments BASIC METABOLIC PANEL STAT 12/01/2022 5:21 PM EDT LITHIUM LEVEL STAT 12/02/2021 8:50 PM EDT from Last 3 Months or Most Recently Relevant to Health Maintenance Results * Basic metabolic panel (12/01/2022 5:21 PM EDT) SODIUM 142 133 - 146 mmol/L [facility] CHLORIDE 105 96 - 108 mmol/L [facility] POTASSIUM 4.3 3.3 - 5.1 mmol/L [facility] CO2 26 21 - 35 mmol/L [facility] BUN 14 6 - 19 mg/dL [facility] CREATININE 0.50 0.5 - 1.5 mg/dL [facility] GLUCOSE 82 70 - 99 mg/dL [facility] CALCIUM 9.2 8.4 - 10.3 mg/dL [facility] EGFR 107 >59 mL/min/1.7 3m2 [facility] Comment:Estimated glomerular filtration rate calculated using the CKD-EPI refit equation. ANION GAP 15 10 - 20 mmol/L [facility] Blood 12/01/2022 5:21 PM EDT 12/01/2022 5:33 PM EDT us Bisi Cervantes PA-C LAB BLOOD ORDERA BLES Final Result Performing Organization Address City/[facility]/ZIP Co de Phone Number [address] [address] * (ABNORMAL) [place] level (12/02/2021 8:50 PM EDT) LITHIUM <0.05(L) 0.5 - 1.00 mmol/L [facility] Blood 12/02/2021 8:50 PM EDT 12/02/2021 9:02 PM EDT us Royal Jalloh MD LAB BLOOD ORDERABLES Final Result Performing Organization Address City/[facility] Co de Phone Number [address] [address] from Last 3 Months or Most Recently Relevant to Health Maintenance Insurance MEDICARE PART A & B [facility] PART [facility] & [facility] [place] [facility] A & B [facility] & [facility] A & B Member Subscriber Plan / Payer (Ef fective 2022-) Name:Jaja Beebe Member ID:[id number] Relation to Subscriber:Self Name:Jaja Beebe Subscriber ID:[id number] Payer ID:[id number] Group ID:Not on file Type:Medicare Address: [employer] [address] & B HEALTH MEDICARE PART A & B MEDICARE PART A & B [facility] Care Teams Slack Line Yarder Relationship Specialty Start Date End Date Parth Kim MD [address] [place] [address] [place] [address] PCP - General Internal Medicine 11/18/19 Additional Source Comments The information contained in this document represents components of the legal health record. It is not the complete legal health record.[facility]
== END 2025-05-13 11:00 | disposition home or self-care (01) ==
LOC: HO.HOS 10:43
PROVIDERS: PCP Internal Medicine; Visit Provider Orthopaedic Surgery
DX: M23.92 Unspecified internal derangement of left knee (principal)
CPT/HCPCS: 99213

== ENCOUNTER 2025-05-15 09:06 | Outpatient (AMB) | payer OTHER, SELFPAY ==
--- NOTE | 2025-05-15 09:09 | A.OFFVIS_ITS ---
Intake Visit Reasons: 1 year Allergies olanzapine (From ZYPREXA) Adverse Reaction (Intermediate, Verified 04/02/25 19:31) RLS symptoms clonidine Adverse Reaction (Verified 04/02/25 19:31) RLS diphenhydramine (From Benadryl) Adverse Reaction (Verified 04/02/25 19:31) RLS hydroxyzine Adverse Reaction (Verified 04/02/25 19:31) RLS melatonin Adverse Reaction (Verified 04/02/25 19:31) RLS atypical antipsychotics Adverse Reaction (Severe, Uncoded 04/02/25 19:31) This class appears to potentiate RLS/Akathesia HPI Comments Details: 64 yo woman with depression and RLS who I was asked to see for episodes of passing out. Routine EEG was normal. [facility] 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 [id number] ADHD Hypothyroidism Polysubstance use disorder Cannabis use disorder Cocaine use disorder Acute medication-induced akathisia Osteopenia of multiple sites Syncope Type II diabetes mellitus Fibromyalgia Benzodiazepine abuse RLS (restless legs syndrome) COPD (chronic obstructive pulmonary disease) HLD (hyperlipidemia) Surgical History History of vaginal hysterectomy History of cataract surgery Family History Mother CAD (coronary artery disease) Father Alcoholism Son Substance use disorder Son Substance use disorder Social History Household Members: Spouse Household Members Other:: son's girlfriend Housing: Apartment Do you presently have visiting nurse or other home services: No Unable to assess alcohol history related to: Unknown Alcohol intake: never Comment: Pt reports falling d/t excessive intake of Benzo's prior to admission Patient Tobacco Use Status: Current everyday Tobacco user Tobacco use type: Cigarette Cigarette Packs Per Day: 1 Cigarettes Per Day: 15 Years Smoked: 45 e-Cigarette/Vaping Use: Never Used Second Hand Smoke Exposure: No Substance Use Type: Marijuana Advance Directives Date on File: 06/05/24 service: No Current occupational status: unemployed Sexual orientation: Straight/Heterosexual Cognitive needs: No Hearing needs: No Vision needs: No Physical Exam Neuro Other: Mental Status: Alert and oriented to person, place, and time. Normal attention. Normal spontaneous speech, fluency, and comprehension. No obvious issues with mood and memory. Affect is appropriate. Cranial Nerves: CN II: Visual villafana full to confrontation, visual acuity intact. CN III, IV, : Pupils equal, round, reactive to light and accommodation. Extraocular movements are normal. CN V: Facial sensation is normal. CN VII: Facial movements symmetrical. CN VIII: Hearing intact to bedside conversation is normal. CN IX, X: Palate elevates symmetrically. CN XI: Shoulder shrug and head turn symmetrical. CN XII: Tongue midline without atrophy or fasciculations. Motor: Bulk and tone normal in all extremities. No significant muscle weakness in arms and legs. No drift. Reflexes: Deep tendon reflexes 2+ and symmetric. Plantar response down-going bilaterally. Coordination: Qjgrqa-[id number] and wrmf-dy-ecyw testing normal. No dysmetria. Gait and Station: No obvious gait abnormality. No ataxia or instability. Sensory: Intact to light touch, pinprick, and vibration. Romberg is negative. Extrapyramidal: Full facial expressions and blinking. No rigidity. Movements are appropriate with no tremor or abnormality. Speech: Normal; no dysarthria or tremor. Assessment & Plan Assessment & Plan (1) Restless leg syndrome: Comment: MRI brain WWO at [facility] in Jun 2022: no change MRI brain WWO at [facility] in Sep 2021: b/l TMJ, CT brain WO at [facility] in 2012: WNL. EEG at [facility] in Oct 2024: WNL Code(s): G25.81 - Restless legs syndrome Category: Medical Plan Impression: a: RLS stable on Pramipaxole b: Behavioral disorder c: Her description of further movement disorder that is not present on my exam. It may be anxiety induced or iatgrogenic but her exam today does not reveal any significant movement disorder. Rec: a: May continue pramipaxole 0.25mg one in the evening and one at bedtime. I do not recommend it during daytime. It may make RLS worse if taken during daytime. . Medications: New pramipexole 0.25 mg orally evening and bedtime; 180 tabs 1RF Discontinued pramipexole Discontinued Reason: Doctor's Order 0.5 mg PO TID 30 days 90 tabs 1RF Coding Level of Care Code Est Pt Level 4 (84134) Diagnoses Restless leg syndrome G25.81
--- OUTSIDE RECORDS SUMMARY | 2025-05-15 09:48 | XMS_ITS | Clinical Summary ---
Author Organization [employer] Address [address] [facility] 7t [place] [address] Care Team Providers Care Bell Person Name Role Phone Unavailable Primary Care Provider [...]
--- OUTSIDE RECORDS SUMMARY | 2025-05-15 09:48 | XMS_ITS | Encounter Summary ---
Author Organization [employer] Address [address] [facility] [address]t [place] [address] Care Team Providers Care Homicide Squad Captain Name Role Phone Unavailable Primary Care Provider Unavailabl e Reason for Visit * Reason Onset Date Comments insurance information/self pay 08/17/2024 Encounter Details Date Type Department Care Team (Late st Contact Info) Description 08/17/2024 Telephone C ADULT DENTAL [address] [place], [place] [phone] Kj Zurita, SAEID [address] [place], [place] [phone] insurance information/self pay Social History Tobacco Use [...] 8:27 AM EST Patient states she has [employer] for insurance but does not have the [...]
--- OUTSIDE RECORDS SUMMARY | 2025-05-15 09:48 | XMS_ITS | Clinical Summary ---
Author Organization [facility] Address [address] [place] [address] Phone Care Team Providers Care Sulfuric Acid Plant Supervisor Name Role Phone Parth Kim MD Primary [...] EDT) SODIUM 142 133 - 146 mmol/L [facility] CHLORIDE 105 96 - 108 mmol/L [facility] POTASSIUM 4.3 3.3 - 5.1 mmol/L [facility] CO2 26 21 - 35 mmol/L [facility] BUN 14 6 - 19 mg/dL [facility] CREATININE 0.50 0.5 - 1.5 mg/dL [facility] GLUCOSE 82 70 - 99 mg/dL [facility] CALCIUM 9.2 8.4 - 10.3 mg/dL [facility] EGFR 107 >59 mL/min/1.7 3m2 [facility] Comment:Estimated glomerular filtration rate calculated using the CKD-EPI refit equation. ANION GAP 15 10 - 20 mmol/L [facility] Blood 12/01/2022 5:21 PM EDT 12/01/2022 5:33 PM EDT us Bisi Cervantes PA-C LAB BLOOD ORDERA BLES Final Result Performing Organization Address City/[facility]/ZIP Co de Phone Number [address] [address] * (ABNORMAL) [place] level (12/02/2021 8:50 PM EDT) LITHIUM <0.05(L) 0.5 - 1.00 mmol/L [facility] Blood 12/02/2021 8:50 PM EDT 12/02/2021 9:02 PM EDT us Royal Jalloh MD LAB BLOOD ORDERABLES Final Result Performing Organization Address City/[facility] Co de Phone Number [address] [address] from Last 3 Months or Most Recently Relevant to Health Maintenance Insurance MEDICARE PART A & B [facility] MEDICARE PART A & [facility] [place]IC[place] [facility] [place] [facility] & B Member Subscriber Plan / Payer (Ef fective 2022-) Name:Jaja Beebe Member ID:[id number] Relation to Subscriber:Self Name:Jaja Beebe Subscriber ID:[id number] Payer ID:[id number] Group ID:Not on file Type:Medicare Address: [employer] [address] & B HEALTH MEDICARE PART A & B MEDICARE PART A & B [facility] Care Teams Sulfuric Acid Plant Supervisor Relationship Specialty Start Date End Date Parth Kim MD [address] [place] [address] [place] [address] PCP - General Internal Medicine 11/18/19 Additional Source Comments The information contained in this document represents components of the legal health record. It is not the complete legal health record.[facility]
--- OUTSIDE RECORDS SUMMARY | 2025-05-15 09:48 | XMS_ITS | Encounter Summary ---
Author Organization [employer] Address [address] [facility] 7t [place] [address] Care Team Providers Care Collar Starcher Name Role Phone Unavailable Primary Care Provider [...]
--- OUTSIDE RECORDS SUMMARY | 2025-05-15 09:48 | XMS_ITS | Patient Health Record ---
Author Organization [facility] Address [address] [place] [address] Care Team Providers Care Museum Preparator Name Role Phone Julio (RETIRED) Parth MORALES Primary Care Provide r Unavailable Darion Brooks Unavailable [phone] Reason For Referral No Information Medications Medication SIG (Take, Route, Frequency, Duration) Notes Start Date End Date Status [place] Carbonate 300 MG 3 capsule at be [...] Problem Status W/U Status Risk Notes Problem [id number] Encounter for screening for malignant neoplasm of colon (Z12.11) Active confirmed Problem [id number] Preprocedural examination (Z01.818) Active confirmed Plan Of Treatment Future Test Test Name Order Date COLONOSCOPY 04/12/2019 Insurance Providers Payer Name Payer Address Payer Phone Subscriber Number Group Number Insured Name Patient Relationship to Insured Coverage Start Date Coverage End Date MEDICARE OF [place] [address] [place] [address] [id number] FARAZ KNOX Self - patient is the insured MEDICAID OF [facility] [address] [place] [phone] [id number] FARAZ KNOX Self - patient is the insured Medical (General) History Medical History History ICD Code Asthma Denies [place],DM,CVA,renal disease Bipolar depression Hypothyroidism Hyperlipidemia Surgical History Surgery Date(Month/Year) Partial hysterectomy 2001 Cataracts-lens implants 2019
--- OUTSIDE RECORDS SUMMARY | 2025-05-15 09:48 | XMS_ITS | Patient Health Record ---
Author Organization [facility] Address [address] [place] [address] Care Team Providers Care Rabbet Operator Name Role Phone [facility] Primary Care Provider [phone] Karoline Carcamo Unavailable [phone] Reason For Referral No Information Plan Of Treatment No Information Insurance Providers Payer Name Payer Address Payer Phone Subscriber Number Group Number Insured Name Patient Relationship to Insured Coverage Start Date Coverage End Date [place] Medicare Part [place] [employer] [address] [place] [address] [id number] Jaja Beebe Self - patient is the insured 2 2
--- OUTSIDE RECORDS SUMMARY | 2025-05-15 09:48 | XMS_ITS | Encounter Summary ---
Author Organization [facility] Address [address] [address] Phone Care Team Providers Care Traveling Engineer Name Role Phone Parth Kim MD Primary Care Provider Encounter Details Date Type Department Care Team (Latest Contact Info) Description 11/22/2022 Transcribe Orders [facility] Specimen Processing [address] [place] [address] Bisi Cervantes PA-C [address] [place] [address] [email or web address] Encounter for screening (Primary Dx) Social History [...] 4:41 PM EDT Aysha Cuadra, RN * [place] Suicide Severity Rating Scale (Screener/Recent Self-Report) Question [...] PM EDT) URINE CANNABINOIDS Positive(A) NONE DETECTED [facility] Comment:Cutoff: 50 ng/mL URINE COCAINE METAB NONE DETECTED NONE DETECTED [facility] Comment:Cutoff: 300 ng/mL URINE AMPHETAMINES NONE DETECTED NONE DETECTED [facility] Comment:Cutoff: 1000 ng/mL URINE METHADONE NONE DETECTED NONE DETECTED [facility] Comment:Cutoff: 300 ng/mL URINE OPIATES NONE DETECTED NONE DETECTED [facility] Comment:Cutoff: 300 ng/mL URINE PHENCYCLIDINE NONE DETECTED NONE DETECTED [facility] Comment:Cutoff: 25 ng/mL URINE OXYCODONE NONE DETECTED NONE DETECTED [facility] Comment:Cutoff: 300 ng/ml URINE BARBITURATES NONE DETECTED NONE DETECTED [facility] Comment:Cutoff: 200 ng/mL URINE BENZODIAZEPINE NONE DETECTED NONE DETECTED [facility] Comment:Cutoff: 200 ng/mL URINE BUPRENORPHINE NONE DETECTED NONE DETECTED [facility] Comment: Cutoff: 5 ng/mL INTERPRETATION FOR TOXICOLOGY PANEL: These results are unconfirmed and should be used for Medical Treatment purposes only. Urine (Urine) 11/22/2022 7:1 4 PM EDT 11/22/2022 7:15 PM EDT us Bisi Cervantes PA-C URINE ORDERABLES Final Result [address] [address] documented in this encounter Visit Diagnoses Diagnosis Encounter for screening- Primary documented in this encounter Care Teams Traveling Engineer Relationship Specialty Start Date End Date Parth Kim MD [address] [place] [address] [place] [address] PCP - General Internal Medicine 11/18/19 documented as of this encounter Additional Source Comments The information contained in this document represents components of the legal health record. It is not the complete legal health record.[facility]
== END 2025-05-15 09:30 | disposition home or self-care (01) ==
LOC: HO.HSM 09:07
PROVIDERS: PCP Internal Medicine; Visit Provider Psychiatry & Neurology Neurology
DX: G25.81 Restless legs syndrome (principal)
CPT/HCPCS: 99214

== ENCOUNTER 2025-06-26 11:24 | Outpatient (AMB) | payer OTHER, SELFPAY ==
[2025-06-26 11:31] VITALS: BP 124/60; PULSE 74; O2SAT 95; BMI 18.9
--- NOTE | 2025-06-26 11:31 | MHC.OFFWIV ---
Intake Vital Signs 06/26/25 11:31 Height 5 ft 1 in Weight 100 lb BMI 18.9 BP 124/60 Blood Pressure Location Lt brachial Position Sitting Pulse 74 Pulse Source Pulse Oximeter Pulse Oximetry (%) 95 Oxygen Delivery Method Room Air Intake Visit Reasons: EP Left knee swelling Intake Note: Patient presents c/o left knee swelling/pain - ongoing problem, already scheduled with ortho - wants refill of methocarbamol & methylprednisone. Patient Tobacco Use Status: Current everyday Tobacco user Allergies olanzapine (From ZYPREXA) Adverse Reaction (Intermediate, Verified 06/26/25 11:34) RLS symptoms clonidine Adverse Reaction (Verified 06/26/25 11:34) RLS diphenhydramine (From Benadryl) Adverse Reaction (Verified 06/26/25 11:34) RLS hydroxyzine Adverse Reaction (Verified 06/26/25 11:34) RLS melatonin Adverse Reaction (Verified 06/26/25 11:34) RLS atypical antipsychotics Adverse Reaction (Severe, Uncoded 06/26/25 11:34) This class appears to potentiate RLS/Akathesia Do you need a note to return to daycare/school/sports/work: No HPI EP Left knee swelling HPI Details A 64-year-old female patient presents to the walk-in clinic today with left knee pain/swelling. This has been an ongoing issue for many years. She has seen [facility]. Temple [place] [facility] [place] in [place] and had injection therapy. Last x-ray showed progressing tricompartmental OA. She states that last night, when she was getting into bed, she felt and heard a loud pop in the medial aspect of her left knee, and has had an increase in pain since then. She states that this happened over the summer, and she did well with steroid/muscle relaxer regimen. She has an upcoming MRI of that knee this month on 07/14, with a follow up with orthopedics on 07/29. 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 ADHD Hypothyroidism Polysubstance use disorder Cannabis use disorder Cocaine use disorder Acute medication-induced akathisia Osteopenia of multiple sites Syncope Type II diabetes mellitus Fibromyalgia Benzodiazepine abuse RLS (restless legs syndrome) COPD (chronic obstructive pulmonary disease) HLD (hyperlipidemia) Surgical History History of vaginal hysterectomy History of cataract surgery Family History Mother CAD (coronary artery disease) Father Alcoholism Son Substance use disorder Son Substance use disorder Social History Household Members: Spouse Household Members Other:: son's girlfriend Housing: Apartment Do you presently have visiting nurse or other home services: No Alcohol intake: never Comment: Pt reports falling d/t excessive intake of Benzo's prior to admission Patient Tobacco Use Status: Current everyday Tobacco user Tobacco use type: Cigarette Cigarette Packs Per Day: 1 Cigarettes Per Day: 15 Years Smoked: 45 e-Cigarette/Vaping Use: Never Used Second Hand Smoke Exposure: No Substance Use Type: Marijuana Advance Directives Date on File: 06/05/24 service: No Current occupational status: unemployed Sexual orientation: Straight/Heterosexual Cognitive needs: No Hearing needs: No Vision needs: No Review of Systems Const All systems reviewed & are unremarkable except as noted in HPI and below Physical Exam Vital Signs: Last Vital Signs Pulse 74 06/26/25 11:31 BP 124/60 06/26/25 11:31 Pulse Ox 95 06/26/25 11:31 Oxygen Delivery Method Room Air 06/26/25 11:31 BMI result Body Mass Index 18.9 Const General: cooperative and no acute distress Resp Effort & Inspection: normal respiratory effort Skin General skin exam: no rashes or lesions noted Extrem Left lower extremity: knee Details: tenderness Location: of the medial joint line and abnormal ROM Details: pain with active ROM Details: with extension and with flexion Psych Appearance: grossly normal Mental Status: mental status grossly normal Speech and movement: Normal speech and movement present Assessment & Plan Assessment & Plan (1) Osteoarthritis of left knee: Code(s): M17.12 - Unilateral primary osteoarthritis, left knee Qualifiers: Osteoarthritis type: primary Qualified Code(s): M17.12 - Unilateral primary osteoarthritis, left knee Plan: Following a similar flare over the summer of this left knee pain, patient did well on medrol pack and muscle relaxer. I have refilled these and we reviewed indications, use, possible side effects of both of these. We also reviewed conservative measures including rest, compression, elevation, ice application, Tylenol as needed. She is having an MRI later this month with follow up with Orthopedics on 07/29 for further discussion regarding her OA progression. She can follow up with PCP or return to the clinic as needed in the meantime. Patient verbalizes understanding and agrees to plan. Medications: Changed From methocarbamol 1,500 mg (2 x 750 mg) PO Q8H PRN 24 tabs 0RF pain, moderate M17.12 - Unilateral primary osteoarthritis, left knee To methocarbamol 750 mg PO Q8H PRN 15 tabs 0RF pain, moderate 5 days M17.12 - Unilateral primary osteoarthritis, left knee Refilled methylprednisolone (Medrol (Jluis)) Take per package instructions 4 mg PO QAM 21 ea 0RF Coding Level of Care Code Est Pt Level 4 (75101) Diagnoses Primary osteoarthritis of left knee M17.12 Osteoarthritis type: primary
--- OUTSIDE RECORDS SUMMARY | 2025-06-26 14:08 | XMS_ITS | Clinical Summary ---
Author Organization [employer] Address [address] [facility] [address]t [place] [address] Care Team Providers Care Environmental Law Professor Name Role Phone Unavailable Primary Care Provider [...]
--- OUTSIDE RECORDS SUMMARY | 2025-06-26 14:08 | XMS_ITS | Encounter Summary ---
Author Organization [facility] Address [address] [address] Phone Care Team Providers Care Director Of Group Sales Name Role Phone Parth Kim MD Primary Care Provider Encounter Details Date Type Department Care Team (Latest Contact Info) Description 11/22/2022 Transcribe Orders [facility] Specimen Processing [address] [place] [address] Bisi Cervantes PA-C [address] [place] [address] [email or web address] Encounter for screening (Primary Dx) Social History [...] 4:41 PM EDT Aysha Cuadra, RN * [place] Suicide Severity Rating Scale (Screener/Recent Self-Report) Question [...] PM EDT) URINE CANNABINOIDS Positive(A) NONE DETECTED [facility] Comment:Cutoff: 50 ng/mL URINE COCAINE METAB NONE DETECTED NONE DETECTED [facility] Comment:Cutoff: 300 ng/mL URINE AMPHETAMINES NONE DETECTED NONE DETECTED [facility] Comment:Cutoff: 1000 ng/mL URINE METHADONE NONE DETECTED NONE DETECTED [facility] Comment:Cutoff: 300 ng/mL URINE OPIATES NONE DETECTED NONE DETECTED [facility] Comment:Cutoff: 300 ng/mL URINE PHENCYCLIDINE NONE DETECTED NONE DETECTED [facility] Comment:Cutoff: 25 ng/mL URINE OXYCODONE NONE DETECTED NONE DETECTED [facility] Comment:Cutoff: 300 ng/ml URINE BARBITURATES NONE DETECTED NONE DETECTED [facility] Comment:Cutoff: 200 ng/mL URINE BENZODIAZEPINE NONE DETECTED NONE DETECTED [facility] Comment:Cutoff: 200 ng/mL URINE BUPRENORPHINE NONE DETECTED NONE DETECTED [facility] Comment: Cutoff: 5 ng/mL INTERPRETATION FOR TOXICOLOGY PANEL: These results are unconfirmed and should be used for Medical Treatment purposes only. Urine (Urine) 11/22/2022 7:1 4 PM EDT 11/22/2022 7:15 PM EDT us Bisi Cervantes PA-C LAB URINE ORDERA BLES Final Result [facility] [address] [place] [address] documented in this encounter Visit Diagnoses Diagnosis Encounter for screening- Primary documented in this encounter Care Teams Director Of Group Sales Relationship Specialty Start Date End Date Parth Kim MD [address] [place] [address] [place] [address] PCP - General Internal Medicine 11/18/19 documented as of this encounter Additional Source Comments The information contained in this document represents components of the legal health record. It is not the complete legal health record.[facility]
--- OUTSIDE RECORDS SUMMARY | 2025-06-26 14:08 | XMS_ITS | Encounter Summary ---
Author Organization [employer] Address [address] [facility] [address]t [place] [address] Care Team Providers Care Day Light Relief Operator Name Role Phone Unavailable Primary Care [...]
--- OUTSIDE RECORDS SUMMARY | 2025-06-26 14:08 | XMS_ITS | Encounter Summary ---
Author Organization [employer] Address [address] [facility] [address]t [place] [address] Care Team Providers Care Casing Cleaner Name Role Phone Unavailable Primary Care Provider Unavailabl e Reason for Visit * Reason Onset Date Comments insurance information/self pay 08/17/2024 Encounter Details Date Type Department Care Team (Late st Contact Info) Description 08/17/2024 Telephone C ADULT DENTAL [address] [place], [place] [phone] Kj Zurita, SAEID [address] [place], [place] [phone] insurance information/self pay Social History Tobacco Use [...] 8:27 AM EST Patient states she has [employer] for insurance but does not have the [...]
--- OUTSIDE RECORDS SUMMARY | 2025-06-26 14:08 | XMS_ITS | Clinical Summary ---
Author Organization [facility] Address [address] [place] [id number] Phone Care Team Providers Care Patternmaker Apprentice Wood Name Role Phone Parth Kim MD Primary [...] patient's age to complete this topic IPV VACCINES Aged Out No longer eligi ble [...] Date/Time Associated Diagnosis Comments BASIC METABOLIC PANEL (BMP) STAT 12/01/2022 5:21 PM EDT LITHIUM LEVEL STAT 12/02/2021 8:50 PM EDT from Last 3 Months or Most Recently Relevant to Health Maintenance Results * Basic metabolic panel (12/01/2022 5:21 PM EDT) SODIUM 142 133 - 146 mmol/L [facility] CHLORIDE 105 96 - 108 mmol/L [facility] POTASSIUM 4.3 3.3 - 5.1 mmol/L [facility] CO2 26 21 - 35 mmol/L [facility] BUN 14 6 - 19 mg/dL [facility] CREATININE 0.50 0.5 - 1.5 mg/dL [facility] GLUCOSE 82 70 - 99 mg/dL [facility] CALCIUM 9.2 8.4 - 10.3 mg/dL [facility] EGFR 107 >59 mL/min/1.7 3m2 [facility] Comment:Estimated glomerular filtration rate calculated using the CKD-EPI refit equation. ANION GAP 15 10 - 20 mmol/L [facility] Blood 12/01/2022 5:21 PM EDT 12/01/2022 5:33 PM EDT us Bisi Cervantes PA-C LAB BLOOD BKR OR DERABLES Final Result Performing Organization Address City/[facility]/ZIP Co de Phone Number [address] [phone] * (ABNORMAL) [place] level (12/02/2021 8:50 PM EDT) LITHIUM <0.05(L) 0.5 - 1.00 mmol/L [facility] Blood 12/02/2021 8:50 PM EDT 12/02/2021 9:02 PM EDT us Royal Jalloh MD LAB BLOOD BKR ORDERABLES F inal Result Performing Organization Address [facility]/[place] Co de Phone Number [address] [phone] from Last 3 Months or Most Recently Relevant to Health Maintenance Insurance MEDICARE PART A & B [facility] MEDICARE PART A & B Member Subscriber Plan / Payer (Ef fective 2022-) Name:Jaja Beebe Member ID:[id number] Relation to Subscriber:Self Name:Jaja Beebe Subscriber ID:[id number] Payer ID:[id number] Group ID:Not on file Type:Medicare Address: [employer] [address] & B HEALTH MEDICARE PART A & B MEDICARE PART A & [place] [facility] [place] B [facility] MEDICARE PART A & B [facility] Care Teams Patternmaker Apprentice Wood Relationship Specialty Start Date End Date Parth Kim MD [address] [place] [address] [place] [id number] PCP - General Internal Medicine 11/18/19 Additional Source Comments The information contained in this document represents components of the legal health record. It is not the complete legal health record.[facility]
== END 2025-06-26 12:14 | disposition home or self-care (01) ==
PROVIDERS: PCP Internal Medicine; Visit Provider Nurse Practitioner Family
DX: M17.12 Unilateral primary osteoarthritis, left knee (principal)

== ENCOUNTER 2025-06-28 09:52 | Emergency (ER) | payer OTHER, SELFPAY ==
--- NOTE | ~2025-06-28 | CT_ITS ---
EXAMINATION: CT ABDOMEN AND PELVIS WITH CONTRAST CLINICAL INFORMATION: Diffuse abdominal pain COMPARISON: November 11, 2023 TECHNIQUE: Multidetector volumetric images were obtained from the superior aspect of the liver through the pubic symphysis following administration 85 mL of Omnipaque 350 intravenous contrast. Sagittal and coronal reformatted images were obtained on the technologist's workstation. Oral contrast: No This CT examination was performed using dose optimization techniques as appropriate, variously including the following: *Automated exposure control *Adjustment of mA and/or kV according to patient size (this includes techniques or standardized protocols for targeted exams where dose is matched to indication/reason for exam; i.e. extremities or head) *Use of iterative reconstruction technique FINDINGS: LUNG BASES: The visualized lung bases are unremarkable. LIVER, GALLBLADDER, AND BILIARY TREE: The liver is normal in size, shape, and attenuation. No focal hepatic lesion or biliary ductal dilatation is present. The gallbladder is unremarkable with no evidence of radiopaque gallstones, gallbladder wall thickening, or obvious pericholecystic inflammatory changes. Extrahepatic bile duct measures 6 mm which is borderline enlarged. There is subtle prominence of the intrahepatic bile ducts as well. The appearance is similar to the prior. PANCREAS: Again seen are coarse calcifications in the body of the head and pancreas. SPLEEN: Unremarkable. ADRENAL GLANDS: Unremarkable. KIDNEYS AND URETERS: The kidneys are normal in size, shape, and attenuation. No hydronephrosis, hydroureter, or calculi seen. No perinephric stranding. BLADDER: Unremarkable. GASTROINTESTINAL TRACT: Again noted is thickening of the distal esophagus. There is swirling of the mesenteric vessels, increased since the prior. There is diffuse mild increased density of the mesenteric fat throughout the abdomen and pelvis. There is no midgut volvulus, the duodenum is anatomically positioned. There is no bowel obstruction. The appendix is not well seen. It is possibly partially seen. No distinct abnormality is noted. Moderate stool and gas is present in the right and to a lesser extent transverse colon ABDOMINAL WALL: No significant hernia is appreciated. LYMPH NODES: Normal. VASCULAR: Moderate vascular calcifications are present. PELVIC VISCERA: Unremarkable. OSSEOUS STRUCTURES: Unremarkable. CT/CT abdomen pelvis w IV con IMPRESSION: There is swirling of the mesentery which is increased the prior examination and stable diffuse mesenteric fat stranding which raises question of a mesenteric or omental volvulus. There is no midgut malrotation or cecal volvulus. The significance of the finding is uncertain. There is stable chronic thickening of the distal esophagus which could be related to esophagitis, malignancy, or connective tissue disease. There is stable mild intrahepatic and borderline extrahepatic biliary ductal dilation. Coarse calcifications in the pancreas are probably related to chronic pancreatitis. Fleischner guidelines were followed. Electronically signed by: Jorge Cooper MD 06/28/2025 11:28 AM RADHA
[2025-06-28 09:55] VITALS: BP 166/85; PULSE 68; RESP 18; TEMP 36.1; O2SAT 97; BMI 19.8
--- NOTE | 2025-06-28 09:59 | ED_ITS ---
HPI - General Adult General Chief complaint: Abdominal Pain Stated complaint: Back Pain Time Seen by Provider: 06/28/25 10:16 History of Present Illness HPI narrative: see other chart Related Data Home Medications ?Medication ?Instructions ?Recorded ?Confirmed methocarbamol 750 mg tablet 750 mg PO Q8H PRN 03/07/25 03/07/25 divalproex 500 mg tablet,extended 500 mg PO BEDTIME release 24 hr Previous Rx's ?Medication ?Instructions ?Recorded cholecalciferol (vitamin D3) 50 50 mcg PO DAILY #30 ca ps 10/29/24 mcg (2,000 unit) capsule (Vitamin D3) docusate sodium 100 mg capsule 100 mg PO BID PRN const ipation #60 10/29/24 caps guanfacine 1 mg tablet,extended 1 mg PO QID 30 days #1 20 tabs 10/29/24 release 24 hr ibuprofen 400 mg tablet 400 mg PO Q6H PRN muscle ivana n #0 10/29/24 tabs lidocaine 4 % topical patch 1 patch transdermal DAILY #30 ea 10/29/24 (Lidocaine Pain Relief) pregabalin 150 mg capsule 150 mg PO TID #90 caps 10/29 sodium chloride 0.65 % nasal spray 1 spray intranasal Q1H PRN Dryness 10/29/24 aerosol (Deep Sea Nasal) #0 mL zolpidem 10 mg tablet (Ambien) 10 mg PO BEDTIME PRN sl eep #30 tabs 11/06/24 rosuvastatin 5 mg tablet 5 mg PO Q2D 3 months #45 tab s 11/08/24 clonazepam 2 mg tablet (Klonopin) 2 mg PO BEDTIME #7 t abs 12/05/24 lithium carbonate 300 mg tablet 150 mg (1/2 x 300 mg) PO DAILY 30 12/05/24 days #15 tabs modafinil 200 mg tablet 200 mg PO QAM #30 tabs 12/05 meloxicam 15 mg tablet 15 mg PO DAILY PRN pain (sca le 12/07/24 score 4-6) #20 tabs Diabetic ensure drink #60 ea 12/26/24 fluticasone 250 mcg-salmeterol 50 1 inh inhalation BID COPD 30 days 03/07/25 mcg/dose blistr powdr for #60 ea inhalation (Wixela Inhub) nicotine 21 mg/24 hr daily 1 patch transdermal DAILY q uit 03/07/25 transdermal patch smoking 28 days #28 ea ketorolac 10 mg tablet 10 mg PO Q6H PRN pain #20 ta bs 04/03/25 levothyroxine 50 mcg tablet 50 mcg PO DAILY@0600 #30 t abs 04/23/25 pramipexole 0.25 mg tablet 0.25 mg PO .COMPLEX #180 ta bs 05/15/25 albuterol sulfate 90 mcg/actuation 2 puff PO Q4-6H PRN for wheezing 06/18/25 aerosol inhaler #8.5 grams methocarbamol 750 mg tablet 750 mg PO Q8H PRN pain, mo derate 5 06/26/25 days #15 tabs methylprednisolone 4 mg tablets in 4 mg PO QAM #21 ea 06/26/25 a dose pack (Medrol (Jluis)) omeprazole magnesium 20 mg 20 mg PO DAILY 14 days #14 tabs 06/28/25 tablet,delayed release (Prilosec OTC) Allergies Allergy/AdvReac Type Severity Reaction Status Date / Time olanzapine (From ZYPREXA) AdvReac Intermediate RLS Verified 06/28/25 09:57 symptoms clonidine AdvReac RLS Verified 06/28/25 09:57 diphenhydramine (From AdvReac RLS Verified 06/28/25 09:57 Benadryl) hydroxyzine AdvReac RLS Verified 06/28/25 09:57 melatonin AdvReac RLS Verified 06/28/25 09:57 atypical antipsychotics AdvReac Severe This class Uncoded 06/28/25 09:57 appears to potentiate RLS/Akathesia PMFSH Past Medical History 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 [id number] ADHD Hypothyroidism Polysubstance use disorder Cannabis use disorder Cocaine use disorder Acute medication-induced akathisia Osteopenia of multiple sites Syncope Type II diabetes mellitus Fibromyalgia Benzodiazepine abuse RLS (restless legs syndrome) COPD (chronic obstructive pulmonary disease) HLD (hyperlipidemia) Surgical History History of vaginal hysterectomy History of cataract surgery Family History Family History Mother CAD (coronary artery disease) Father Alcoholism Son Substance use disorder Son Substance use disorder Social History Social History Household Members: Spouse Household Members Other:: son's girlfriend Housing: Apartment Do you presently have visiting nurse or other home services: No Alcohol intake: never Comment: Pt reports falling d/t excessive intake of Benzo's prior to admission Patient Tobacco Use Status: Current everyday Tobacco user Tobacco use type: Cigarette Cigarette Packs Per Day: 1 Cigarettes Per Day: 15 Years Smoked: 45 e-Cigarette/Vaping Use: Never Used Second Hand Smoke Exposure: No Substance Use Type: Marijuana Advance Directives Date on File: 06/05/24 service: No Current occupational status: unemployed Sexual orientation: Straight/Heterosexual Cognitive needs: No Hearing needs: No Vision needs: No Physical Exam ED Vital Signs: Vital Signs - 24 hr 06/28/25 09:55 06/28/25 10:19 06/28/25 11:04 Temperature 97 F 97.9 F Pulse Rate 68 64 Respiratory Rate 18 14 14 Blood Pressure 166/85 H 152/84 H Pulse Oximetry 97 96 Oxygen Delivery Method Room Air Room Air 06/28/25 12:58 06/28/25 14:06 Temperature 98.1 F Pulse Rate 64 64 Respiratory Rate 14 14 Blood Pressure 123/71 123/71 Pulse Oximetry 96 96 Oxygen Delivery Method Room Air Room Air BMI result Body Mass Index 19.8 Course Course Course Narrative: This is a rapid medical exam performed by Nathalie Loera NP: Additional HPI, ROS, PE not included below will be deferred to primary provider. Patient is a 64-year-old female presenting to the emergency department with complaint of generalized abdominal pain radiating through to her back since this morning with associated nausea and vomiting. Reports constipation a few days ago but had a normal bowel movement this morning. Was prescribed a Medrol Dosepak and Robaxin yesterday for knee pain. Plan: Labs, UA Medications Administered Discontinued Medications Generic Name Dose Route Start Last Admin Trade Name Freq PRN Reason Stop Dose Admin Sodium Chloride 1,000 mls @ 999 mls/hr 06/28/25 10:30 06/28/25 13:00 Ns IVCONT 06/28/25 11:30 Infused .Q1H1M LORI Infusion Iohexol 100 ml 06/28/25 10:42 06/28/25 10:42 Iohexol 350 Mg/Ml 100 Ml Infus..Btl IV 06/28/25 10:43 85 ml ONCE ONE Administration Morphine Sulfate 4 mg 06/28/25 10:24 06/28/25 11:04 Morphine Sulfate 4 Mg/Ml Cartridge IVPUSH 06/28/25 10:25 4 mg ONCE ONE Administration Protocol Ondansetron HCl 4 mg 06/28/25 10:24 06/28/25 11:04 Ondansetron Hcl 4 Mg/2 Ml Vial IVPUSH 06/28/25 10:25 4 mg ONCE ONE Administration Medical Decision Making Lab Data 06/28/25 10:02 06/28/25 10:02 Labs: Lab Results 06/28/25 06/28/25 Range/Units 10:02 11:52 WBC 6.5 (4.8-10.8) X10*3/uL RBC 4.27 (4.20-5.50) X10*6/uL Hgb 14.0 (12.0-16.0) g/dl Hct 41.8 (37.0-47.0) % MCV 97.9 (80.0-98.0) fL MCH 32.8 (27.0-33.0) pg MCHC 33.5 (31.0-35.0) g/dl RDW 13.1 (11.0-16.0) % Plt Count 407 H (160-400) X10*3/uL MPV 9.0 L (9.4-12.3) fL Immature Gran % (Auto) 0.2 (0.0-0.4) % Neut % (Auto) 65.0 (45-73) % Lymph % (Auto) 27.6 (20-40) % [place] % (Auto) 6.6 (2-11) % Eos % (Auto) 0.3 (0-4) % Baso % (Auto) 0.3 (0-2) % Lymph # (Auto) 1.8 (1.2-4.9) X10*3/uL [place] # (Auto) 0.4 (0.1-1.2) X10*3/uL Eos # (Auto) 0.0 (0.0-0.4) X10*3/uL Baso # (Auto) 0.0 (0.0-0.2) X10*3/uL Abs Immat Gran (auto) 0.01 (0.00-0.03) X10*3/uL Absolute Neuts (auto) 4.2 (2.0-8.3) x10*3/uL Absolute Nucleated RBC 0.000 (0.0-0.012) X10*3/uL Nucleated RBC % (auto) 0.0 (0.0-0.2) /100WBC Sodium 136 (135-145) mmol/L Potassium 4.6 (3.3-5.1) mmol/L Chloride 106 (96-108) mmol/L Carbon Dioxide 23 (22-29) mmol/L Anion Gap 12 (12-20) BUN 16 (9-16) mg/dL Creatinine 0.62 (0.5-1.4) mg/dL Estim Creat Clear Calc 70.7 Estimated GFR > 60 Random Glucose 137 H (60-115) mg/dL Calcium 9.4 (8.4-10.2) mg/dL Magnesium 1.8 (1.6-2.6) mg/dL Total Bilirubin 0.2 (0.0-1.0) mg/dL AST 18 (5-31) U/L ALT 17 (0-31) U/L Alkaline Phosphatase 113 (39-117) U/L Total Protein 7.5 (6.5-8.0) g/dL Albumin 4.6 (3.5-5.0) g/dL Lipase 22 (8-78) U/L Urine Color Yellow Urine Appearance Clear Urine pH 6.5 (5.0-9.0) Ur Specific [place] >= 1.030 H (1.005-1.025) Urine Protein Negative (Neg-Trace) mg/dL Urine Glucose (UA) Negative (Negative) mg/dL Urine Ketones Negative (Negative) mg/dL Urine Blood Negative (Negative) Urine Nitrite Negative (Negative) Ur Leukocyte Esterase Negative (Negative) Discharge Plan Discharge Clinical Impression: Abdominal pain in female patient Patient Disposition: Home, Self-Care Instructions: Abdominal Pain (ED) Additional Instructions: Follow-up with your primary care physician discontinue the prednisone and take omeprazole as directed also you should follow-up with a inserting press operator we will give you the number of Dr. Brooks Prescriptions: New omeprazole magnesium [Prilosec OTC] 20 mg tablet,delayed release (DR/EC) 20 mg PO DAILY 14 Days Qty: 14 0RF No Action modafinil 200 mg tablet 200 mg PO QAM Qty: 30 0RF clonazepam [Klonopin] 2 mg tablet 2 mg PO BEDTIME Qty: 7 0RF Rx Instructions: administer 30 minutes before bedtime lithium carbonate 300 mg tablet 150 mg PO DAILY 30 Days Qty: 15 0RF meloxicam 15 mg tablet 15 mg PO DAILY PRN (Reason: pain (scale score 4-6)) Qty: 20 0RF (DME) Diabetic ensure drink See Rx Instructions .Route .MEDSUPPLY Qty: 60 11RF Rx Instructions: Diabetic ensure drink twice daily as directed divalproex 500 mg tablet extended release 24 hr 500 mg PO BEDTIME levothyroxine 50 mcg tablet 50 mcg PO DAILY@0600 Qty: 30 3RF albuterol sulfate 90 mcg/actuation HFA aerosol inhaler 2 puff PO Q4-6H PRN (Reason: for wheezing) Qty: 8.5 0RF zolpidem [Ambien] 10 mg tablet 10 mg PO BEDTIME PRN (Reason: sleep) Qty: 30 0RF ibuprofen 400 mg Tablet 400 mg PO Q6H PRN (Reason: muscle pain) Qty: 0 0RF Deep Sea Nasal 0.65 % Aerosol,[place] 1 spray intranasal Q1H PRN (Reason: Dryness) Qty: 0 0RF pregabalin 150 mg Capsule 150 mg PO TID Qty: 90 0RF lidocaine [Lidocaine Pain Relief] 4 % Adhesive Patch,Medicated 1 patch transdermal DAILY Qty: 30 0RF Protocol: Apply to: Apply to: affected area docusate sodium 100 mg capsule 100 mg PO BID PRN (Reason: constipation) Qty: 60 0RF cholecalciferol (vitamin D3) [Vitamin D3] 50 mcg (2,000 unit) capsule 50 mcg PO DAILY Qty: 30 0RF guanfacine 1 mg tablet extended release 24 hr 1 mg PO QID 30 Days Qty: 120 2RF Rx Instructions: Take one tablet 4 times a day at 7am, 12pm and 5pm, and bedtime ketorolac 10 mg tablet 10 mg PO Q6H PRN (Reason: pain) Qty: 20 0RF Rx Instructions: maximum total duration of 5 days from all oral, intranasal, or parenteral formulations. The patient received an intramuscular dose of Toradol here in the emergency room. rosuvastatin 5 mg tablet 5 mg PO Q2D 90 Days Qty: 45 3RF methocarbamol 750 mg tablet 750 mg PO Q8H PRN nicotine 21 mg/24 hr patch 24 hour 1 patch transdermal DAILY 28 Days Qty: 28 1RF fluticasone propion-salmeterol [Wixela Inhub] 250-50 mcg/dose blister with device 1 inh inhalation BID 30 Days Qty: 60 5RF pramipexole 0.25 mg tablet 0.25 mg PO .COMPLEX Qty: 180 1RF Rx Instructions: 0.25 mg orally evening and bedtime; methylprednisolone [Medrol (Jluis)] 4 mg tablets,dose pack 4 mg PO QAM Qty: 21 0RF Rx Instructions: Take per package instructions methocarbamol 750 mg tablet 750 mg PO Q8H PRN (Reason: pain, moderate) 5 Days Qty: 15 0RF Referrals: Darion Brooks MD [Physician, Gastroenterology] - 07/03/25 Interventions: ED Discharge Assessment Last Done: 06/28/25 14:06 Discharge Date/Time: 06/28/25 14:07 Print Language: Paraguayan
[2025-06-28 10:08] LABS: MANUAL DIFF FLAG NO
[2025-06-28 10:10] LABS: Hematocrit 41.8 % (37.0-47.0); Hemoglobin 14.0 g/dl (12.0-16.0); Imm Gran Abs Auto 0.01 X10*3/uL (0.00-0.03); Imm Gran Pct Auto 0.2 % (0.0-0.4); Lymphocytes Absolute Auto 1.8 X10*3/uL (1.2-4.9); Mean Corpuscular HGB Conc 33.5 g/dl (31.0-35.0); Mean Corpuscular Hemoglobin 32.8 pg (27.0-33.0); Mean Corpuscular Volume 97.9 fL (80.0-98.0); NRBC Abs Auto 0.000 X10*3/uL (0.0-0.012); NRBC Pct Auto 0.0 /100WBC (0.0-0.2); Platelet Count 407 X10*3/uL (160-400); Red Blood Count 4.27 X10*6/uL (4.20-5.50); White Blood Count 6.5 X10*3/uL (4.8-10.8)
[2025-06-28 10:19] VITALS: BP 152/84; PULSE 64; RESP 14; TEMP 36.6; O2SAT 96
--- NOTE | 2025-06-28 10:25 | ED_ITS ---
HPI - Abdominal Pain General Chief Complaint: Abdominal Pain Stated Complaint: Back Pain Time Seen by Provider: 06/28/25 10:16 Source: patient Mode of arrival: ambulatory Limitations: no limitations History of Present Illness HPI narrative: This is a 64 years old female patient presented to the emergency department with abdominal pain. The patient has a history of COPD, arthritis she was started yesterday on prednisone by the primary care physician today she developed abdominal pain radiated to the back with nausea. She denies any prior abdominal surgery MD elicited complaint: abdominal pain Pertinent past history: other (COPD) Onset (ago): hour(s) (6) Pain Consistency: constant Location: diffuse Severity: moderate Quality: cramping Radiation: other (back) Exacerbating factors: nothing Relieving factors: nothing Associated symptoms: nausea and vomiting Related Data Home Medications ?Medication ?Instructions ?Recorded ?Confirmed methocarbamol 750 mg tablet 750 mg PO Q8H PRN 03/07/25 03/07/25 divalproex 500 mg tablet,extended 500 mg PO BEDTIME release 24 hr Previous Rx's ?Medication ?Instructions ?Recorded cholecalciferol (vitamin D3) 50 50 mcg PO DAILY #30 ca ps 10/29/24 mcg (2,000 unit) capsule (Vitamin D3) docusate sodium 100 mg capsule 100 mg PO BID PRN const ipation #60 10/29/24 caps guanfacine 1 mg tablet,extended 1 mg PO QID 30 days #1 20 tabs 10/29/24 release 24 hr ibuprofen 400 mg tablet 400 mg PO Q6H PRN muscle ivana n #0 10/29/24 tabs lidocaine 4 % topical patch 1 patch transdermal DAILY #30 ea 10/29/24 (Lidocaine Pain Relief) pregabalin 150 mg capsule 150 mg PO TID #90 caps 10/29 sodium chloride 0.65 % nasal spray 1 spray intranasal Q1H PRN Dryness 10/29/24 aerosol (Deep Sea Nasal) #0 mL zolpidem 10 mg tablet (Ambien) 10 mg PO BEDTIME PRN sl eep #30 tabs 11/06/24 rosuvastatin 5 mg tablet 5 mg PO Q2D 3 months #45 tab s 11/08/24 clonazepam 2 mg tablet (Klonopin) 2 mg PO BEDTIME #7 t abs 12/05/24 lithium carbonate 300 mg tablet 150 mg (1/2 x 300 mg) PO DAILY 30 12/05/24 days #15 tabs modafinil 200 mg tablet 200 mg PO QAM #30 tabs 12/05 meloxicam 15 mg tablet 15 mg PO DAILY PRN pain (sca le 12/07/24 score 4-6) #20 tabs Diabetic ensure drink #60 ea 12/26/24 fluticasone 250 mcg-salmeterol 50 1 inh inhalation BID COPD 30 days 03/07/25 mcg/dose blistr powdr for #60 ea inhalation (Wixela Inhub) nicotine 21 mg/24 hr daily 1 patch transdermal DAILY q uit 03/07/25 transdermal patch smoking 28 days #28 ea ketorolac 10 mg tablet 10 mg PO Q6H PRN pain #20 ta bs 04/03/25 levothyroxine 50 mcg tablet 50 mcg PO DAILY@0600 #30 t abs 04/23/25 pramipexole 0.25 mg tablet 0.25 mg PO .COMPLEX #180 ta bs 05/15/25 albuterol sulfate 90 mcg/actuation 2 puff PO Q4-6H PRN for wheezing 06/18/25 aerosol inhaler #8.5 grams methocarbamol 750 mg tablet 750 mg PO Q8H PRN pain, mo derate 5 06/26/25 days #15 tabs methylprednisolone 4 mg tablets in 4 mg PO QAM #21 ea 06/26/25 a dose pack (Medrol (Jluis)) omeprazole magnesium 20 mg 20 mg PO DAILY 14 days #14 tabs 06/28/25 tablet,delayed release (Prilosec OTC) Allergies Allergy/AdvReac Type Severity Reaction Status Date / Time olanzapine (From ZYPREXA) AdvReac Intermediate RLS Verified 06/28/25 09:57 symptoms clonidine AdvReac RLS Verified 06/28/25 09:57 diphenhydramine (From AdvReac RLS Verified 06/28/25 09:57 Benadryl) hydroxyzine AdvReac RLS Verified 06/28/25 09:57 melatonin AdvReac RLS Verified 06/28/25 09:57 atypical antipsychotics AdvReac Severe This class Uncoded 06/28/25 09:57 appears to potentiate RLS/Akathesia Review of Systems Review of Systems Yes all other systems are reviewed and are negative [facility] Past Medical History Attestation statement: The following information was validated with the patient. 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 [id number] ADHD Hypothyroidism Polysubstance use disorder Cannabis use disorder Cocaine use disorder Acute medication-induced akathisia Osteopenia of multiple sites Syncope Type II diabetes mellitus Fibromyalgia Benzodiazepine abuse RLS (restless legs syndrome) COPD (chronic obstructive pulmonary disease) HLD (hyperlipidemia) Surgical History History of vaginal hysterectomy History of cataract surgery Family History Family History Mother CAD (coronary artery disease) Father Alcoholism Son Substance use disorder Son Substance use disorder Social History Social History Household Members: Spouse Household Members Other:: son's girlfriend Housing: Apartment Do you presently have visiting nurse or other home services: No Alcohol intake: never Comment: Pt reports falling d/t excessive intake of Benzo's prior to admission Patient Tobacco Use Status: Current everyday Tobacco user Tobacco use type: Cigarette Cigarette Packs Per Day: 1 Cigarettes Per Day: 15 Years Smoked: 45 e-Cigarette/Vaping Use: Never Used Second Hand Smoke Exposure: No Substance Use Type: Marijuana Advance Directives Date on File: 06/05/24 service: No Current occupational status: unemployed Sexual orientation: Straight/Heterosexual Cognitive needs: No Hearing needs: No Vision needs: No Physical Exam ED Vital Signs: Vital Signs - 24 hr 06/28/25 09:55 06/28/25 10:19 06/28/25 11:04 Temperature 97 F 97.9 F Pulse Rate 68 64 Respiratory Rate 18 14 14 Blood Pressure 166/85 H 152/84 H Pulse Oximetry 97 96 Oxygen Delivery Method Room Air Room Air 06/28/25 12:58 06/28/25 14:06 Temperature 98.1 F Pulse Rate 64 64 Respiratory Rate 14 14 Blood Pressure 123/71 123/71 Pulse Oximetry 96 96 Oxygen Delivery Method Room Air Room Air BMI result Body Mass Index 19.8 Const General: cooperative Nutritional Appearance: well nourished Orientation/consciousness: patient oriented x3 HENMT Head: Yes normal to inspection General nose exam: Normal external nose present Neck Neck: Yes normal visual inspection Chest Chest palpation & inspection: normal inspection of the chest Resp Effort & Inspection: normal respiratory effort Auscultation: clear to auscultation bilaterally Cardio Jugular venous distension: no JVD Rate: regular rate Rhythm: regular rhythm GI Inspection: Yes normal to inspection Palpation (GI): Soft to palpation Auscultation: normal bowel sounds General: Yes no CVA tenderness Back/Spine/Pelvis Back: no CVA tenderness Neuro General: patient oriented x3 Cranial nerves: Yes CN's II-XII intact bilaterally Course Reevaluation(s) Reevaluation #1: The patient was seen in consultation also by surgery Dr. Cherelle chisholm to discharge home; CT was reviewed with the surgeon as well Time: 13:47 Medical Decision Making Medical Decision Making [facility] Narrative: Patient is here with the abdominal pain we will obtain labs administer analgesia Differential Diagnosis Differential Diagnoses: The differential diagnosis associated with the presentation includes Gastritis/pancreatitis/diverticulitis/perforated the viscous Admission/Observation Consideration of admission/observation: Escalation of care including admission/observation considered Lab Data [facility] Lab Attestation statement: I reviewed the patient's lab results. 06/28/25 10:02 06/28/25 10:02 Labs: Lab Results 06/28/25 06/28/25 Range/Units 10:02 11:52 WBC 6.5 (4.8-10.8) X10*3/uL RBC 4.27 (4.20-5.50) X10*6/uL Hgb 14.0 (12.0-16.0) g/dl Hct 41.8 (37.0-47.0) % MCV 97.9 (80.0-98.0) fL MCH 32.8 (27.0-33.0) pg MCHC 33.5 (31.0-35.0) g/dl RDW 13.1 (11.0-16.0) % Plt Count 407 H (160-400) X10*3/uL MPV 9.0 L (9.4-12.3) fL Immature Gran % (Auto) 0.2 (0.0-0.4) % Neut % (Auto) 65.0 (45-73) % Lymph % (Auto) 27.6 (20-40) % [place] % (Auto) 6.6 (2-11) % Eos % (Auto) 0.3 (0-4) % Baso % (Auto) 0.3 (0-2) % Lymph # (Auto) 1.8 (1.2-4.9) X10*3/uL [place] # (Auto) 0.4 (0.1-1.2) X10*3/uL Eos # (Auto) 0.0 (0.0-0.4) X10*3/uL Baso # (Auto) 0.0 (0.0-0.2) X10*3/uL Abs Immat Gran (auto) 0.01 (0.00-0.03) X10*3/uL Absolute Neuts (auto) 4.2 (2.0-8.3) x10*3/uL Absolute Nucleated RBC 0.000 (0.0-0.012) X10*3/uL Nucleated RBC % (auto) 0.0 (0.0-0.2) /100WBC Sodium 136 (135-145) mmol/L Potassium 4.6 (3.3-5.1) mmol/L Chloride 106 (96-108) mmol/L Carbon Dioxide 23 (22-29) mmol/L Anion Gap 12 (12-20) BUN 16 (9-16) mg/dL Creatinine 0.62 (0.5-1.4) mg/dL Estim Creat Clear Calc 70.7 Estimated GFR > 60 Random Glucose 137 H (60-115) mg/dL Calcium 9.4 (8.4-10.2) mg/dL Magnesium 1.8 (1.6-2.6) mg/dL Total Bilirubin 0.2 (0.0-1.0) mg/dL AST 18 (5-31) U/L ALT 17 (0-31) U/L Alkaline Phosphatase 113 (39-117) U/L Total Protein 7.5 (6.5-8.0) g/dL Albumin 4.6 (3.5-5.0) g/dL Lipase 22 (8-78) U/L Urine Color Yellow Urine Appearance Clear Urine pH 6.5 (5.0-9.0) Ur Specific [place] >= 1.030 H (1.005-1.025) Urine Protein Negative (Neg-Trace) mg/dL Urine Glucose (UA) Negative (Negative) mg/dL Urine Ketones Negative (Negative) mg/dL Urine Blood Negative (Negative) Urine Nitrite Negative (Negative) Ur Leukocyte Esterase Negative (Negative) Radiology Impression Discussion of test interpretation with radiology: I have reviewed the radiologist's reading. Medications Administered Discontinued Medications Generic Name Dose Route Start Last Admin Trade Name Freq PRN Reason Stop Dose Admin Sodium Chloride 1,000 mls @ 999 mls/hr 06/28/25 10:30 06/28/25 13:00 Ns IVCONT 06/28/25 11:30 Infused .Q1H1M LORI Infusion Iohexol 100 ml 06/28/25 10:42 06/28/25 10:42 Iohexol 350 Mg/Ml 100 Ml Infus..Btl IV 06/28/25 10:43 85 ml ONCE ONE Administration Morphine Sulfate 4 mg 06/28/25 10:24 06/28/25 11:04 Morphine Sulfate 4 Mg/Ml Cartridge IVPUSH 06/28/25 10:25 4 mg ONCE ONE Administration Protocol Ondansetron HCl 4 mg 06/28/25 10:24 06/28/25 11:04 Ondansetron Hcl 4 Mg/2 Ml Vial IVPUSH 06/28/25 10:25 4 mg ONCE ONE Administration Discharge Plan Discharge Clinical Impression: Abdominal pain in female patient Patient Disposition: Home, Self-Care Instructions: Abdominal Pain (ED) Additional Instructions: Follow-up with your primary care physician discontinue the prednisone and take omeprazole as directed also you should follow-up with a medical director/head team physician we will give you the number of Dr. Brooks Prescriptions: New omeprazole magnesium [Prilosec OTC] 20 mg tablet,delayed release (DR/EC) 20 mg PO DAILY 14 Days Qty: 14 0RF No Action modafinil 200 mg tablet 200 mg PO QAM Qty: 30 0RF clonazepam [Klonopin] 2 mg tablet 2 mg PO BEDTIME Qty: 7 0RF Rx Instructions: administer 30 minutes before bedtime lithium carbonate 300 mg tablet 150 mg PO DAILY 30 Days Qty: 15 0RF meloxicam 15 mg tablet 15 mg PO DAILY PRN (Reason: pain (scale score 4-6)) Qty: 20 0RF (DME) Diabetic ensure drink See Rx Instructions .Route .MEDSUPPLY Qty: 60 11RF Rx Instructions: Diabetic ensure drink twice daily as directed divalproex 500 mg tablet extended release 24 hr 500 mg PO BEDTIME levothyroxine 50 mcg tablet 50 mcg PO DAILY@0600 Qty: 30 3RF albuterol sulfate 90 mcg/actuation HFA aerosol inhaler 2 puff PO Q4-6H PRN (Reason: for wheezing) Qty: 8.5 0RF zolpidem [Ambien] 10 mg tablet 10 mg PO BEDTIME PRN (Reason: sleep) Qty: 30 0RF ibuprofen 400 mg Tablet 400 mg PO Q6H PRN (Reason: muscle pain) Qty: 0 0RF Deep Sea Nasal 0.65 % Aerosol,Cassel 1 spray intranasal Q1H PRN (Reason: Dryness) Qty: 0 0RF pregabalin 150 mg Capsule 150 mg PO TID Qty: 90 0RF lidocaine [Lidocaine Pain Relief] 4 % Adhesive Patch,Medicated 1 patch transdermal DAILY Qty: 30 0RF Protocol: Apply to: Apply to: affected area docusate sodium 100 mg capsule 100 mg PO BID PRN (Reason: constipation) Qty: 60 0RF cholecalciferol (vitamin D3) [Vitamin D3] 50 mcg (2,000 unit) capsule 50 mcg PO DAILY Qty: 30 0RF guanfacine 1 mg tablet extended release 24 hr 1 mg PO QID 30 Days Qty: 120 2RF Rx Instructions: Take one tablet 4 times a day at 7am, 12pm and 5pm, and bedtime ketorolac 10 mg tablet 10 mg PO Q6H PRN (Reason: pain) Qty: 20 0RF Rx Instructions: maximum total duration of 5 days from all oral, intranasal, or parenteral formulations. The patient received an intramuscular dose of Toradol here in the emergency room. rosuvastatin 5 mg tablet 5 mg PO Q2D 90 Days Qty: 45 3RF methocarbamol 750 mg tablet 750 mg PO Q8H PRN nicotine 21 mg/24 hr patch 24 hour 1 patch transdermal DAILY 28 Days Qty: 28 1RF fluticasone propion-salmeterol [Wixela Inhub] 250-50 mcg/dose blister with device 1 inh inhalation BID 30 Days Qty: 60 5RF pramipexole 0.25 mg tablet 0.25 mg PO .COMPLEX Qty: 180 1RF Rx Instructions: 0.25 mg orally evening and bedtime; methylprednisolone [Medrol (Jluis)] 4 mg tablets,dose pack 4 mg PO QAM Qty: 21 0RF Rx Instructions: Take per package instructions methocarbamol 750 mg tablet 750 mg PO Q8H PRN (Reason: pain, moderate) 5 Days Qty: 15 0RF Referrals: Darion Brooks MD [Physician, Gastroenterology] - 07/03/25 Interventions: ED Discharge Assessment Last Done: 06/28/25 14:06 Discharge Date/Time: 06/28/25 14:07 Print Language: Ukrainian
[2025-06-28 10:26] LABS: Alanine Aminotransferase 17 U/L (0-31); Albumin Level 4.6 g/dL (3.5-5.0); Alkaline Phosphatase 113 U/L (39-117); Anion Gap 12 (12-20); Aspartate Amino Transferase 18 U/L (5-31); Blood Urea Nitrogen 16 mg/dL (9-16); Calcium 9.4 mg/dL (8.4-10.2); Carbon Dioxide 23 mmol/L (22-29); Chloride 106 mmol/L (96-108); Creatinine Clr Calc Pharmacy 70.7; Estimated Glomerular Filt Rate > 60; Lipase 22 U/L (8-78); Magnesium 1.8 mg/dL (1.6-2.6); Potassium 4.6 mmol/L (3.3-5.1); Sodium 136 mmol/L (135-145); Total Protein 7.5 g/dL (6.5-8.0)
[2025-06-28] MEDS: iohexoL 350 MG/ML 100 ML INFUS..BTL IV (10:42)
[2025-06-28 11:04] VITALS: RESP 14
[2025-06-28 12:04] LABS: Appearance Urine Clear; Glucose Urine UA Negative (Negative); PH 6.5 (5.0-9.0); Specific Gravity - Urine >= 1.030 (1.005-1.025)
--- OUTSIDE RECORDS SUMMARY | 2025-06-28 12:31 | XMS_ITS | Encounter Summary ---
Author Organization [facility] Address [address] [address] Phone Care Team Providers Care Burnisher And Bumper Name Role Phone Parth Kim MD Primary Care Provider Encounter Details Date Type Department Care Team (Latest Contact Info) Description 11/22/2022 Transcribe Orders [facility] Specimen Processing [address] [place] [id number] Bisi Cervantes PA-C [address] [place] [address] [email or web address] Encounter for screening (Primary Dx) Social History [...] 4:41 PM EDT Aysha Cuadra, RN * [place] Suicide Severity Rating Scale (Screener/Recent Self-Report) Question [...] PM EDT) URINE CANNABINOIDS Positive(A) NONE DETECTED [facility] Comment:Cutoff: 50 ng/mL URINE COCAINE METAB NONE DETECTED NONE DETECTED [facility] Comment:Cutoff: 300 ng/mL URINE AMPHETAMINES NONE DETECTED NONE DETECTED [facility] Comment:Cutoff: 1000 ng/mL URINE METHADONE NONE DETECTED NONE DETECTED [facility] Comment:Cutoff: 300 ng/mL URINE OPIATES NONE DETECTED NONE DETECTED [facility] Comment:Cutoff: 300 ng/mL URINE PHENCYCLIDINE NONE DETECTED NONE DETECTED [facility] Comment:Cutoff: 25 ng/mL URINE OXYCODONE NONE DETECTED NONE DETECTED [facility] Comment:Cutoff: 300 ng/ml URINE BARBITURATES NONE DETECTED NONE DETECTED [facility] Comment:Cutoff: 200 ng/mL URINE BENZODIAZEPINE NONE DETECTED NONE DETECTED [facility] Comment:Cutoff: 200 ng/mL URINE BUPRENORPHINE NONE DETECTED NONE DETECTED [facility] Comment: Cutoff: 5 ng/mL INTERPRETATION FOR TOXICOLOGY PANEL: These results are unconfirmed and should be used for Medical Treatment purposes only. Urine (Urine) 11/22/2022 7:1 4 PM EDT 11/22/2022 7:15 PM EDT us Bisi Cervantes PA-C LAB URINE ORDERA BLES Final Result [facility] [address] [place] [address] documented in this encounter Visit Diagnoses Diagnosis Encounter for screening- Primary documented in this encounter Care Teams Burnisher And Bumper Relationship Specialty Start Date End Date Parth Kim MD [address] [place] [address] [place] [address] PCP - General Internal Medicine 11/18/19 documented as of this encounter Additional Source Comments The information contained in this document represents components of the legal health record. It is not the complete legal health record.[facility]
--- OUTSIDE RECORDS SUMMARY | 2025-06-28 12:31 | XMS_ITS | Encounter Summary ---
Author Organization [employer] Address [address] [facility] [address] [place] [address] Care Team Providers Care Road Supervisor Of Engines Name Role Phone Unavailable Primary Care Provider Unavailabl e Reason for Visit * Reason Onset Date Comments insurance information/self pay 08/17/2024 Encounter Details Date Type Department Care Team (Late st Contact Info) Description 08/17/2024 Telephone C ADULT DENTAL [address] [place], [place] [phone] Kj Zurita, SAEID [address] [place], [place] [phone] insurance information/self pay Social History Tobacco Use [...] 8:27 AM EST Patient states she has [email or web address] for insurance but does not have the [...]
--- OUTSIDE RECORDS SUMMARY | 2025-06-28 12:31 | XMS_ITS | Clinical Summary ---
Author Organization [employer] Address [address] [facility] [address] [place] [address] Care Team Providers Care Puppet Master Name Role Phone Unavailable Primary Care Provider [...]
--- OUTSIDE RECORDS SUMMARY | 2025-06-28 12:32 | XMS_ITS | Encounter Summary ---
Author Organization [employer] Address [address] [facility] [address] [place] [address] Care Team Providers Care Securities Broker Name Role Phone Unavailable Primary Care Provider [...]
--- OUTSIDE RECORDS SUMMARY | 2025-06-28 12:32 | XMS_ITS | Clinical Summary ---
Author Organization [facility] Address [address] [place] [address] Phone Care Team Providers Care Novelty Twister Operator Name Role Phone Parth Kim MD Primary [...] EDT) SODIUM 142 133 - 146 mmol/L [facility] CHLORIDE 105 96 - 108 mmol/L [facility] POTASSIUM 4.3 3.3 - 5.1 mmol/L [facility] CO2 26 21 - 35 mmol/L [facility] BUN 14 6 - 19 mg/dL [facility] CREATININE 0.50 0.5 - 1.5 mg/dL [facility] GLUCOSE 82 70 - 99 mg/dL [facility] CALCIUM 9.2 8.4 - 10.3 mg/dL [facility] EGFR 107 >59 mL/min/1.7 3m2 [facility] Comment:Estimated glomerular filtration rate calculated using the CKD-EPI refit equation. ANION GAP 15 10 - 20 mmol/L [facility] Blood 12/01/2022 5:21 PM EDT 12/01/2022 5:33 PM EDT us Bisi Cervantes PA-C LAB BLOOD BKR OR DERABLES Final Result Performing Organization Address City/[facility]/ZIP Co de Phone Number [address] [address] * (ABNORMAL) Gabbs level (12/02/2021 8:50 PM EDT) LITHIUM <0.05(L) 0.5 - 1.00 mmol/L [facility] Blood 12/02/2021 8:50 PM EDT 12/02/2021 9:02 PM EDT us Royal Jalloh MD LAB BLOOD BKR ORDERABLES F inal Result Performing Organization Address [facility] Co de Phone Number [address] [address] from Last 3 Months or Most Recently Relevant to Health Maintenance Insurance MEDICARE PART A & B [facility] MEDICARE PART A & B Member Subscriber Plan / Payer (Ef fective 2022-) Name:Jaja Beebe Member ID:[id number] Relation to Subscriber:Self Name:Jaja Beebe Subscriber ID:[id number] Payer ID:[id number] Group ID:Not on file Type:Medicare Address: [employer] [address] & B HEALTH MEDICARE PART A & B MEDICARE [place] & [place] [facility] [place] & B [facility] MEDICARE PART A & B [facility] Care Teams Novelty Twister Operator Relationship Specialty Start Date End Date Parth Kim MD [address] [place] [address] [place] [address] PCP - General Internal Medicine 11/18/19 Additional Source Comments The information contained in this document represents components of the legal health record. It is not the complete legal health record.[facility]
--- OUTSIDE RECORDS SUMMARY | 2025-06-28 12:33 | XMS_ITS | Patient Health Record ---
Author Organization [facility] Address [address] [place] [address] Care Team Providers Care Ballet Dancer Name Role Phone [facility] Primary Care Provider Karoline Carcamo Unavailable Reason For Referral No Information Plan Of Treatment No Information Insurance Providers Payer Name Payer Address Payer Phone Subscriber Number Group Number Insured Name Patient Relationship to Insured Coverage Start Date Coverage End Date [place] Medicare Part A [employer] [address] [place] [address] [id number] Jaja Beebe Self - patient is the insured 2 2
--- OUTSIDE RECORDS SUMMARY | 2025-06-28 12:33 | XMS_ITS | Patient Health Record ---
Author Organization [facility] Address [address] [place] [address] Care Team Providers Care Leak Gang Supervisor Name Role Phone Julio (RETIRED) Parth MORALES Primary Care Provide r Unavailable Darion Brooks Unavailable [phone] Reason For Referral No Information Medications Medication SIG (Take, Route, Frequency, Duration) Notes Start Date End Date Status Timken Carbonate 300 MG 3 capsule at be dtime Orally Once a day Active Levothyroxine Sodium 50 MCG 1 tablet on an empty stomach in the morning Orally Once a day; Duration: 30 day(s) Active traZODone HCl 100 MG 1 tablet at bedtime Orally Once a day; Duration: 30 day(s) Active buPROPion HCl ER (XL) 300 MG 1 tablet in the morning Orally Once a day Active Lipitor 20 MG 1 tablet Orally Once a day; Duration: 30 day(s) Active Immunizations Vaccine Route Administration [...] Problem Status W/U Status Risk Notes Problem Screening for malignant neoplasm of colon (402583629) Encounter for screening for malignant neoplasm of colon (Z12.11) Active confirmed Problem Preprocedural examination (983892258285941) Preprocedural examination (Z01.818) Active confirmed Plan Of Treatment Future Test Test Name Order Date COLONOSCOPY 04/12/2019 Insurance Providers Payer Name Payer Address Payer Phone Subscriber Number Group Number Insured Name Patient Relationship to Insured Coverage Start Date Coverage End Date MEDICARE OF [place] [address] [place] [address] [id number] FARAZ KNOX Self - patient is the insured MEDICAID OF [facility] [address] [place] [address] [id number] FARAZ KNOX Self - patient is the insured Medical (General) History Medical History History ICD Code Asthma Denies ND,DM,CVA,renal disease Bipolar depression Hypothyroidism Hyperlipidemia Surgical History Surgery Date(Month/Year) Partial hysterectomy 2001 Cataracts-lens implants 2018
[2025-06-28 12:58] VITALS: BP 123/71; PULSE 64; RESP 14; O2SAT 96
[2025-06-28 14:06] VITALS: BP 123/71; PULSE 64; RESP 14; TEMP 36.7; O2SAT 96
== END 2025-06-28 14:07 | disposition home or self-care (01) ==
PROVIDERS: Registered Nurse Emergency; Emergency Provider Emergency Medicine; PCP Internal Medicine
DX: R10.84 Generalized abdominal pain (principal); R11.0 Nausea; J44.9 Chronic obstructive pulmonary disease, unspecified; M19.90 Unspecified osteoarthritis, unspecified site; Z79.899 Other long term (current) drug therapy
CPT/HCPCS: 36415; 74177; 80053; 81003; 83690; 83735; 85025; 96361; 96374; 96375; 99284; J2270; J2405; Q9967

== ENCOUNTER → 2025-06-28 10:29 | Outpatient (BNV) | payer OTHER, SELFPAY | PROVIDERS: Emergency Provider Emergency Medicine; PCP Internal Medicine; Visit Provider Radiology Diagnostic Radiology | DX: K22.89 Other specified disease of esophagus (principal) | CPT/HCPCS: 74177 ==

== ENCOUNTER → 2025-07-14 20:03 | Outpatient (BNV) | payer OTHER, SELFPAY | PROVIDERS: PCP Internal Medicine; Visit Provider Radiology Diagnostic Radiology | DX: S83.232A Complex tear of medial meniscus, current injury, left knee, initial encounter (principal); S83.282A Other tear of lateral meniscus, current injury, left knee, initial encounter; M19.012 Primary osteoarthritis, left shoulder | CPT/HCPCS: 73721 ==

== ENCOUNTER 2025-07-14 20:07 | Outpatient (REF) | payer OTHER, SELFPAY ==
--- NOTE | ~2025-07-14 | MR_ITS ---
CLINICAL HISTORY: M23.92 - Unspecified internal derangement of left knee MR of the left knee without contrast. No prior MR. Findings: There is a complex tear of the body and posterior horn of the medial meniscus. There is a prominent horizontal tear of the body of the lateral meniscus. The posterior cruciate ligament is intact. The anterior cruciate ligament is markedly attenuated and possibly torn. The collateral ligaments are intact. The patellar and quadriceps tendons are unremarkable. There is mild lateral and moderate medial compartment DJD. 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 There is a probable 9 mm loose body medially. Patellofemoral alignment is normal. The patellar retinacula are intact. There is a minimal joint effusion. A small popliteal cyst is present. Impression: Complex tear of the medial meniscus. Prominent horizontal tear of the lateral meniscus. Possible ACL tear. Tricompartmental degenerative changes with a probable 9 mm loose body. Minimal joint effusion with a small popliteal cyst. This document has been electronically signed by: Everett Silva MD on 07/15/2025 20:48:38
--- OUTSIDE RECORDS SUMMARY | 2025-07-14 20:10 | XMS_ITS | Patient Health Record ---
Author Organization [facility] Address [address] [place] [address] Care Team Providers Care Bench Lay Out Technician Name Role Phone Tonya Sarmiento MD Primary Care Provider Darion Carrasquillo Unavailable [phone] Reason For Referral No Information Medications Medication SIG (Take, Route, Frequency, Duration) Notes Start Date End Date Status [place] Carbonate 300 MG Capsule 3 capsule at bedtime Orally Once a day Active Levothyroxine Sodium 50 MCG Tablet 1 tablet on an empty stomach in the morning Orally Once a day; Duration: 30 day(s) Active traZODone HCl 100 MG Tablet 1 tablet at bedtime Orally Once a day; Duration: 30 day(s) Active buPROPion HCl ER (XL) 300 MG Tablet Extended Release 24 Hour 1 tablet in the morning Orally Once a day Active Lipitor 20 MG Tablet 1 tablet Orally Onc e a day; Duration: 30 day(s) Active Immunizations Vaccine Route Administration Date Status Comme nts Influenza Unknown 05/25/2018 Administered Social History Tobacco Use: Social History Observation Description Date Details (start date - stop date) Current Smoker NA - NA Social History Drugs/Alcohol: Social Info Question Answer Notes Alcohol Screen Did you have a drink containing alcohol in the past year? No Points 0 Interpretation Negative Tobacco Use: Social Info Question Answer Notes Tobacco Use/Smoking Patient is a current smoker How often do you smoke cigarettes? every day How many cigarettes a day do you smoke? 5 or less How soon after you wake up do you smoke your first cigarette? 6-30 minutes Are you interested in quitting? Ready to quit Additional Details Category Social Info Options Details Miscellaneous: Marital status: Occupation: unemployed Section Notes: Smoker; no alcohol Problems Problem Type SNOMED Code ICD Code Onset Dates Problem Status W/U Status Risk Notes Problem Information temporarily unavailable Encounter for screening for malignant neoplasm of colon (Z12.11) Active confirmed Problem Information temporarily unavailable Preprocedural examination (Z01.818) Active confirmed Encounters Encounter Location Date Provider Diagnosis [facility] [address] [place] [address] 07/01/2025 Darion Brooks [facility] [address] [place] [address] 07/02/2025 Darion Brooks Plan Of Treatment Future Test Test Name Order Date COLONOSCOPY 04/12/2019 Insurance Providers Payer Name Payer Address Payer Phone Subscriber Number Group Number Insured Name Patient Relationship to Insured Coverage Start Date Coverage End Date [facility] [address] [place] [address] [id number] FARAZ KNOX Self - patient is the insured Medical (General) History Medical History History ICD Code Asthma Denies ME,DM,CVA,renal disease Bipolar depression Hypothyroidism Hyperlipidemia Surgical History Surgery Date(Month/Year) Partial hysterectomy 2001 Cataracts-lens implants 2018
--- OUTSIDE RECORDS SUMMARY | 2025-07-14 20:10 | XMS_ITS | Clinical Summary ---
Author Organization [employer] Address [address] [facility] [address] [place] [address] Care Team Providers Care Lead Cargoman Name Role Phone Unavailable Primary Care Provider [...]
--- OUTSIDE RECORDS SUMMARY | 2025-07-14 20:10 | XMS_ITS | Encounter Summary ---
Author Organization [employer] Address [address] [facility] 7t [place] [address] Care Team Providers Care Auto Parts Delivery Driver Name Role Phone Unavailable Primary Care Provider Unavailabl e Encounter Details Date Type Department Care Team (Latest Contact Info) Description 10/26/2018 Abstract C CONVERSIONS Dental, Provider, DDS Social History Tobacco [...]
--- OUTSIDE RECORDS SUMMARY | 2025-07-14 20:10 | XMS_ITS | Clinical Summary ---
Author Organization [facility] Address [address] [place] [phone] Phone Care Team Providers Care Is Project Manager Name Role Phone Parth Kim MD Primary [...] EDT) SODIUM 142 133 - 146 mmol/L [facility] CHLORIDE 105 96 - 108 mmol/L [facility] POTASSIUM 4.3 3.3 - 5.1 mmol/L [facility] CO2 26 21 - 35 mmol/L [facility] BUN 14 6 - 19 mg/dL [facility] CREATININE 0.50 0.5 - 1.5 mg/dL [facility] GLUCOSE 82 70 - 99 mg/dL [facility] CALCIUM 9.2 8.4 - 10.3 mg/dL [facility] EGFR 107 >59 mL/min/1.7 3m2 [facility] Comment:Estimated glomerular filtration rate calculated using the CKD-EPI refit equation. ANION GAP 15 10 - 20 mmol/L [facility] Blood 12/01/2022 5:21 PM EDT 12/01/2022 5:33 PM EDT us Bisi Cervantes PA-C LAB BLOOD BKR OR DERABLES Final Result Performing Organization Address City/[facility]/ZIP Co de Phone Number [address] [address] * (ABNORMAL) [place] level (12/02/2021 8:50 PM EDT) LITHIUM <0.05(L) 0.5 - 1.00 mmol/L [facility] Blood 12/02/2021 8:50 PM EDT 12/02/2021 9:02 PM EDT us Royal Jalloh MD LAB BLOOD BKR ORDERABLES F inal Result Performing Organization Address [facility] Co de Phone Number [address] [address] from Last 3 Months or Most Recently Relevant to Health Maintenance Insurance MEDICARE PART A & B [facility] MEDICARE PART A & B Member Subscriber Plan / Payer (Ef fective 2022-) Name:Jaja Beebe Member ID:[id number] Relation to Subscriber:Self Name:Jaja Beebe Subscriber ID:[id number] Payer ID:[id number] Group ID:Not on file Type:Medicare Address: [facility] [employer] [address] & B HEALTH MEDICARE PART A & B MEDICARE [place] & [place] B [facility]IC[facility] PART A & [place] B [facility] MEDIC[facility] PART A & B [facility] Care Teams Is Project Manager Relationship Specialty Start Date End Date Parth Kim MD [address] [place] [address] [place] [address] PCP - General Internal Medicine 11/18/19 Additional Source Comments The information contained in this document represents components of the legal health record. It is not the complete legal health record.[facility]
--- OUTSIDE RECORDS SUMMARY | 2025-07-14 20:10 | XMS_ITS | Encounter Summary ---
Author Organization [employer] Address [address] [facility] [address] [place] [address] Care Team Providers Care Senior Rd Engineer Name Role Phone Unavailable Primary Care Provider Unavailabl e Reason for Visit * Reason Onset Date Comments insurance information/self pay 08/17/2024 Encounter Details Date Type Department Care Team (Late st Contact Info) Description 08/17/2024 Telephone C ADULT DENTAL [address] [place], [place] [phone] Kj Zurita, SAEID [address], [place] [phone] insurance information/self pay Social History Tobacco Use [...] 8:27 AM EST Patient states she has [employer] for insurance but does not have the [...]
--- OUTSIDE RECORDS SUMMARY | 2025-07-14 20:10 | XMS_ITS | Patient Health Record ---
Author Organization [facility] Address [address] [place] [address] Care Team Providers Care Pediatric Physiatrist Name Role Phone [facility] Primary Care Provider Karoline Carcamo Unavailable Reason For Referral No Information Plan Of Treatment No Information Insurance Providers Payer Name Payer Address Payer Phone Subscriber Number Group Number Insured Name Patient Relationship to Insured Coverage Start Date Coverage End Date [place] Medicare Part A [employer] [address] [place] [address] [id number] Jaja Beebe Self - patient is the insured 2 2
--- OUTSIDE RECORDS SUMMARY | 2025-07-14 20:10 | XMS_ITS | Encounter Summary ---
Author Organization [facility] Address [address] [address] Phone Care Team Providers Care Manager Erp Name Role Phone Parth Kim MD Primary Care Provider Encounter Details Date Type Department Care Team (Latest Contact Info) Description 11/22/2022 Transcribe Orders [facility] Specimen Processing [address] [place] [id number] Bisi Cervantes PA-C [address] [place] [address] [email or web address] Encounter for screening (Primary Dx) Social [...] 4:41 PM EDT Aysha Cuadra, RN * [place] Suicide Severity Rating Scale (Screener/Recent Self-Report) Question [...] PM EDT) URINE CANNABINOIDS Positive(A) NONE DETECTED [facility] Comment:Cutoff: 50 ng/mL URINE COCAINE METAB NONE DETECTED NONE DETECTED [facility] Comment:Cutoff: 300 ng/mL URINE AMPHETAMINES NONE DETECTED NONE DETECTED [facility] Comment:Cutoff: 1000 ng/mL URINE METHADONE NONE DETECTED NONE DETECTED [facility] Comment:Cutoff: 300 ng/mL URINE OPIATES NONE DETECTED NONE DETECTED [facility] Comment:Cutoff: 300 ng/mL URINE PHENCYCLIDINE NONE DETECTED NONE DETECTED [facility] Comment:Cutoff: 25 ng/mL URINE OXYCODONE NONE DETECTED NONE DETECTED [facility] Comment:Cutoff: 300 ng/ml URINE BARBITURATES NONE DETECTED NONE DETECTED [facility] Comment:Cutoff: 200 ng/mL URINE BENZODIAZEPINE NONE DETECTED NONE DETECTED [facility] Comment:Cutoff: 200 ng/mL URINE BUPRENORPHINE NONE DETECTED NONE DETECTED [facility] Comment: Cutoff: 5 ng/mL INTERPRETATION FOR TOXICOLOGY PANEL: These results are unconfirmed and should be used for Medical Treatment purposes only. Urine (Urine) 11/22/2022 7:1 4 PM EDT 11/22/2022 7:15 PM EDT us Bisi Cervantes PA-C LAB URINE ORDERA BLES Final Result [facility] [address] [place] [address] documented in this encounter Visit Diagnoses Diagnosis Encounter for screening- Primary documented in this encounter Care Teams Manager Erp Relationship Specialty Start Date End Date Parth Kim MD [address] [place] [address] [place] [address] PCP - General Internal Medicine 11/18/19 documented as of this encounter Additional Source Comments The information contained in this document represents components of the legal health record. It is not the complete legal health record.[facility]
== END 2025-07-14 20:08 | disposition home or self-care (01) ==
LOC: HO.MRI 20:07
PROVIDERS: PCP Internal Medicine; Visit Provider Orthopaedic Surgery
DX: M23.92 Unspecified internal derangement of left knee (principal)
CPT/HCPCS: 73721

== ENCOUNTER 2025-07-17 09:21 | Outpatient (AMB) | payer OTHER, SELFPAY ==
[2025-07-17 09:28] VITALS: BP 102/64; PULSE 89; O2SAT 95; BMI 19.5
--- NOTE | 2025-07-17 09:28 | MHC.OFFVIS ---
Vital Signs 07/17/25 09:28 Height 5 ft 1 in Weight 103 lb BMI 19.5 BP 102/64 Blood Pressure Location Lt brachial Position Sitting Pulse 89 Pulse Source Pulse Oximeter Pulse Oximetry (%) 95 Oxygen Delivery Method Room Air Intake Visit Reasons: copd Intake Note: pt is here for follow up and states breathing is so great, she has a cold, she would like a new nebulizer and need medication refill. 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 Operator Lights: Operator Lights offered & declined Allergies olanzapine (From ZYPREXA) Adverse Reaction (Intermediate, Verified 07/17/25 09:41) RLS symptoms clonidine Adverse Reaction (Verified 07/17/25 09:41) RLS diphenhydramine (From Benadryl) Adverse Reaction (Verified 07/17/25 09:41) RLS hydroxyzine Adverse Reaction (Verified 07/17/25 09:41) RLS melatonin Adverse Reaction (Verified 07/17/25 09:41) RLS atypical antipsychotics Adverse Reaction (Severe, Uncoded 07/17/25 09:41) This class appears to potentiate RLS/Akathesia Medication List - Last Reconciled 07/17/25 by Zayra Ariza MD albuterol sulfate 90 mcg/actuation 2 puffs PO Q4-6H PRN cholecalciferol (vitamin D3) (Vitamin D3) 50 mcg PO DAILY clonazepam (Klonopin) 2 mg PO BEDTIME [Diabetic ensure drink Diabetic ensure drink twice daily as directed] divalproex ER 500 mg PO BEDTIME docusate sodium 100 mg PO BID PRN fluticasone propion-salmeterol 250-50 mcg/dose (Wixela Inhub) 1 inh inhalation BID 30 days guanfacine ER 1 mg PO QID 30 days ibuprofen 400 mg PO Q6H PRN ketorolac 10 mg PO Q6H PRN levothyroxine 50 mcg PO DAILY@0600 lidocaine 4% (Lidocaine Pain Relief) 1 patch See Protocol transdermal DAILY lithium carbonate 150 mg (1/2 x 300 mg) PO DAILY 30 days meloxicam 15 mg PO DAILY PRN methocarbamol 750 mg PO Q8H PRN methocarbamol 750 mg PO Q8H PRN 5 days modafinil 200 mg PO QAM nicotine 1 patch transdermal DAILY 28 days omeprazole magnesium (Prilosec OTC) 20 mg PO DAILY 14 days pramipexole 0.25 mg orally evening and bedtime; pregabalin 150 mg PO TID rosuvastatin 5 mg PO Q2D 3 months sodium chloride 0.65% (Deep Sea Nasal) 1 spray intranasal Q1H PRN zolpidem (Ambien) 10 mg PO BEDTIME PRN Do you need a note to return to daycare/school/sports/work: No HPI HPI copd: Details: Jaja is 64 years old, with longstanding history of bronchial asthma which is now changed into COPD, chronic smoker, with multiple comorbidities Comes for follow-up. On her last visit she was started on Wixela 250-50 1 inhalation b.i.d. which she has been using regularly, and breathing has been much better. She still has mild intermittent cough and nasal congestion. She uses albuterol HFA or albuterol solution in the nebulizer but only once in a while. Smoking 15 cigarettes a day. 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 V1537H ADHD Hypothyroidism Polysubstance use disorder Cannabis use disorder Cocaine use disorder Acute medication-induced akathisia Osteopenia of multiple sites Syncope Type II diabetes mellitus Fibromyalgia Benzodiazepine abuse RLS (restless legs syndrome) COPD (chronic obstructive pulmonary disease) HLD (hyperlipidemia) Surgical History History of vaginal hysterectomy History of cataract surgery Family History Mother CAD (coronary artery disease) Father Alcoholism Son Substance use disorder Son Substance use disorder Social History Household Members: Spouse Household Members Other:: son's girlfriend Housing: Apartment Do you presently have visiting nurse or other home services: No Alcohol intake: never Comment: Pt reports falling d/t excessive intake of Benzo's prior to admission Patient Tobacco Use Status: Current everyday Tobacco user Tobacco use type: Cigarette Cigarette Packs Per Day: 1 Cigarettes Per Day: 15 Years Smoked: 45 e-Cigarette/Vaping Use: Never Used Second Hand Smoke Exposure: No Substance Use Type: Marijuana Advance Directives Date on File: 06/05/24 service: No Current occupational status: unemployed Sexual orientation: Straight/Heterosexual Cognitive needs: No Hearing needs: No Vision needs: No Review of Systems Const All systems reviewed & are unremarkable except as noted in HPI and below Eyes Reports no additional complaints ENT Reports no additional complaints Card Denies chest pain, Denies irregular heart rhythm and Denies leg edema Resp Reports as per HPI GI Reports no additional complaints Reports no additional complaints Musc Reports back pain (Chronic) Skin/Breast Reports system reviewed and no additional complaints, except as documented Neuro Reports no additional complaints Psych Reports anxiety, Reports mood swings and Reports other (Bipolar disorder) Endo Reports other (Hypothyroidism) Anthony/Lymph Reports no additional complaints Aller/Immun Reports no additional complaints Physical Exam Vital Signs: Last Vital Signs Pulse 89 07/17/25 09:28 BP 102/64 07/17/25 09:28 Pulse Ox 95 07/17/25 09:28 Oxygen Delivery Method Room Air 07/17/25 09:28 BMI result Body Mass Index 19.5 Patient is of a thin build, underweight, but physically active and appropriate Const General: healthy appearing (except for being underweight ), comfortable, no acute distress, alert and awake Orientation/consciousness: patient oriented x3 HEENT Head: Yes normal to inspection General nose exam: No nasal polyps present and No nasal discharge present Face and sinus: Yes sinuses nontender Mouth: oropharynx normal Throat: Yes posterior oropharynx normal Eyes General: appearance normal, both eyes and all related structures Neck Neck: Yes normal visual inspection, Yes no lymphadenopathy, Yes trachea midline and Yes no JVD Thyroid: Thyroid normal Chest Chest palpation & inspection: normal inspection of the chest, normal palpation of entire chest wall and no tenderness Resp Effort & Inspection: normal respiratory effort Auscultation: clear to auscultation bilaterally, no crackles, no rhonchi and no wheezes Cardio Palpation: normal PMI Rate: regular rate Rhythm: regular rhythm Heart sounds: no gallops and no murmurs Peripheral pulses: Peripheral pulses 2+ throughout GI Palpation (GI): Soft to palpation, nontender, No hepatosplenomegaly present and no masses Auscultation: normal bowel sounds Back/Spine/Pelvis Thoracic/Lumbar Spine: thoracic and lumbar spine normal to inspection Skin General skin exam: no rashes or lesions noted Neuro General: patient oriented x3 and no focal motor deficits Cranial nerves: Yes CN's II-XII intact bilaterally Extrem General: Yes normal to inspection, Yes no clubbing, cyanosis or edema and Yes no calf tenderness Psych Appearance: grossly normal and well kempt Speech and movement: Normal speech and movement present Assessment & Plan Assessment & Plan (1) COPD (chronic obstructive pulmonary disease): Comment: SHE HAS A VERY MILD TO MODERATE SMALL AIRWAY OBSTRUCTIVE DISORDER, AT PRESENT, SEEMS TO BE CONTROLLED VERY WELL. THE AMOUNT OF SHORTNESS OF BREATH AND COUGH AND OCCASIONAL WHEEZING DEPENDS UPON HER SMOKING. SHE IS BENEFITING FROM THE USE OF WIXELA Code(s): J44.9 - Chronic obstructive pulmonary disease, unspecified Category: Medical Plan: CONTINUE USING WIXELA 250-50 1 INHALATION B.I.D. REGULARLY. USE ALBUTEROL HFA 2 PUFFS Q 4-6 HOURS P.R.N. WHEN OUTDOORS. MAY USE ALBUTEROL SOLUTION IN THE NEBULIZER Q 4-6 HOURS P.R.N. WHEN AT . (2) Nicotine dependence, cigarettes, uncomplicated: Comment: (onset 17yo, 1/2ppd x 46yrs, 23pyh) , currently smoking only a few cigarettes a day, but sometime goes up to half-a-pack a day to alleviate her anxiety. Code(s): F17.210 - Nicotine dependence, cigarettes, uncomplicated Category: Medical Plan: AGAIN DISCUSSED WITH HER ABOUT THE IMPORTANCE OF QUITTING SMOKING. SHE UNDERSTANDS WELL, . AND WILL KEEP ON TRYING CONTINUE TO HAVE ANNUAL LUNG SCREENING WITH LDCT. Medications: New albuterol sulfate 2.5 mg (6 mL) inhalation Q4-6H PRN 90 mL 3RF shortness of breath or wheezing 30 days Coding Level of Care Code Est Pt Level 3 (21933) Diagnoses COPD (chronic obstructive pulmonary disease) J44.9 Nicotine dependence, cigarettes, uncomplicated F17.210
--- OUTSIDE RECORDS SUMMARY | 2025-07-17 10:09 | XMS_ITS | Encounter Summary ---
Author Organization [facility] Address [address] [address] Phone Care Team Providers Care Layer Out Name Role Phone Parth Kim MD Primary Care Provider Encounter Details Date Type Department Care Team (Latest Contact Info) Description 11/22/2022 Transcribe Orders [facility] Specimen Processing [address] [place] [id number] Bisi Cervantes PA-C [address] [place] [address] [email or web address] Encounter for [...] 4:41 PM EDT Aysha Cuadra, RN * [place] Suicide Severity Rating Scale (Screener/Recent Self-Report) Question [...] URINE CANNABINOIDS Positive(A) NONE DETECTED [facility] Comment:Cutoff: 50 ng/mL URINE COCAINE METAB NONE DETECTED NONE DETECTED [facility] Comment:Cutoff: 300 ng/mL URINE AMPHETAMINES NONE DETECTED NONE DETECTED [facility] Comment:Cutoff: 1000 ng/mL URINE METHADONE NONE DETECTED NONE DETECTED [facility] Comment:Cutoff: 300 ng/mL URINE OPIATES NONE DETECTED NONE DETECTED [facility] Comment:Cutoff: 300 ng/mL URINE PHENCYCLIDINE NONE DETECTED NONE DETECTED [facility] Comment:Cutoff: 25 ng/mL URINE OXYCODONE NONE DETECTED NONE DETECTED [facility] Comment:Cutoff: 300 ng/ml URINE BARBITURATES NONE DETECTED NONE DETECTED [facility] Comment:Cutoff: 200 ng/mL URINE BENZODIAZEPINE NONE DETECTED NONE DETECTED [facility] Comment:Cutoff: 200 ng/mL URINE BUPRENORPHINE NONE DETECTED NONE DETECTED [facility] Comment: Cutoff: 5 ng/mL INTERPRETATION FOR TOXICOLOGY PANEL: These results are unconfirmed and should be used for Medical Treatment purposes only. Urine (Urine) 11/22/2022 7:1 4 PM EDT 11/22/2022 7:15 PM EDT us Bisi Cervantes PA-C LAB URINE ORDERA BLES Final Result [facility] [address] [place] [address] documented in this encounter Visit Diagnoses Diagnosis Encounter for screening- Primary documented in this encounter Care Teams Layer Out Relationship Specialty Start Date End Date Parth Kim MD [address] [place] [address] [place] [address] PCP - General Internal Medicine 11/18/19 documented as of this encounter Additional Source Comments The information contained in this document represents components of the legal health record. It is not the complete legal health record.[facility]
--- OUTSIDE RECORDS SUMMARY | 2025-07-17 10:09 | XMS_ITS | Encounter Summary ---
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
--- OUTSIDE RECORDS SUMMARY | 2025-07-17 10:10 | XMS_ITS | Encounter Summary ---
Author Organization [employer] Address [address] [facility] [address] [place] [address] Care Team Providers Care Detective Supervisor Name Role Phone Unavailable Primary Care [...]
--- OUTSIDE RECORDS SUMMARY | 2025-07-17 10:10 | XMS_ITS | Patient Health Record ---
Author Organization [facility] Address [address] [place] [address] Care Team Providers Care Human Services Supervisor Name Role Phone Tonya Sarmiento MD Primary Care Provider Darion Carrasquillo Unavailable [phone] Reason For Referral No Information Medications Medication SIG (Take, Route, Frequency, Duration) Notes Start Date End Date Status [place] Carbonate 300 MG Capsule 3 capsule at [...] Problem Screening for malignant neoplasm of colon (314281685) Encounter for screening for malignant neoplasm of colon (Z12.11) Active confirmed Problem Preprocedural examination (180355139641663) Preprocedural examination (Z01.818) Active confirmed Encounters Encounter Location Date Provider Diagnosis [facility] [address] [place] [address] 07/01/2025 Darion Brooks [facility] [address] [place] [address] 07/02/2025 Darion Brooks Plan Of Treatment Future Test Test Name Order Date COLONOSCOPY 04/12/2019 Insurance Providers Payer Name Payer Address Payer Phone Subscriber Number Group Number Insured Name Patient Relationship to Insured Coverage Start Date Coverage End Date [facility] [address] [place] [address] [id number] FARAZ KNOX Self - patient is the insured Medical (General) History Medical History History ICD Code Asthma Denies [place],DM,CVA,renal disease Bipolar depression Hypothyroidism Hyperlipidemia Surgical History Surgery Date(Month/Year) Partial hysterectomy 2001 Cataracts-lens implants 2018
--- OUTSIDE RECORDS SUMMARY | 2025-07-17 10:10 | XMS_ITS | Clinical Summary ---
Author Organization [facility] Address [address] [place] [address] Phone Care Team Providers Care Product Marketing Programs Manager Name Role Phone Parth Kim MD [...] EDT) SODIUM 142 133 - 146 mmol/L [facility] CHLORIDE 105 96 - 108 mmol/L [facility] POTASSIUM 4.3 3.3 - 5.1 mmol/L [facility] CO2 26 21 - 35 mmol/L [facility] BUN 14 6 - 19 mg/dL [facility] CREATININE 0.50 0.5 - 1.5 mg/dL [facility] GLUCOSE 82 70 - 99 mg/dL [facility] CALCIUM 9.2 8.4 - 10.3 mg/dL [facility] EGFR 107 >59 mL/min/1.7 3m2 [facility] Comment:Estimated glomerular filtration rate calculated using the CKD-EPI refit equation. ANION GAP 15 10 - 20 mmol/L [facility] Blood 12/01/2022 5:21 PM EDT 12/01/2022 5:33 PM EDT us Bisi Cervantes PA-C LAB BLOOD BKR OR DERABLES Final Result Performing Organization Address [facility]/ZIP Co de Phone Number [address] [address] * (ABNORMAL) [place] level (12/02/2021 8:50 PM EDT) LITHIUM <0.05(L) 0.5 - 1.00 mmol/L [facility] Blood 12/02/2021 8:50 PM EDT 12/02/2021 9:02 PM EDT us Royal Jalloh MD LAB BLOOD BKR ORDERABLES F inal Result Performing Organization Address [facility] Co de Phone Number [address] [address] from Last 3 Months or Most Recently Relevant to Health Maintenance Insurance MEDICARE PART A & B [facility] [place] [facility] MEDICARE PART A & [place] [facility] B [facility] Care Teams Product Marketing Programs Manager Relationship Specialty Start Date End Date Parth Kim MD [address] [place] [address] [place] [address] PCP - General Internal Medicine 11/18/19 Additional Source Comments The information contained in this document represents components of the legal health record. It is not the complete legal health record.[facility]
--- OUTSIDE RECORDS SUMMARY | 2025-07-17 10:10 | XMS_ITS | Clinical Summary ---
Author Organization [employer] Address [address] [facility] [address] [place] [address] Care Team Providers Care Chief Nurse Executive Name Role Phone Unavailable Primary Care Provider [...]
--- OUTSIDE RECORDS SUMMARY | 2025-07-17 10:11 | XMS_ITS | Patient Health Record ---
Author Organization [facility] Address [address] [place] [address] Care Team Providers Care Photo Printer Name Role Phone [facility] Primary Care Provider Karoline Carcamo Unavailable Reason For Referral No Information Plan Of Treatment No Information Insurance Providers Payer Name Payer Address Payer Phone Subscriber Number Group Number Insured Name Patient Relationship to Insured Coverage Start Date Coverage End Date [place] [employer] [address] [place] [address] [id number] Jaja Beebe Self - patient is the insured 2 2
== END 2025-07-17 09:45 | disposition home or self-care (01) ==
LOC: HO.HPS 09:22
PROVIDERS: PCP Internal Medicine; Visit Provider Internal Medicine
DX: J44.9 Chronic obstructive pulmonary disease, unspecified (principal); F17.210 Nicotine dependence, cigarettes, uncomplicated
CPT/HCPCS: 99213

== ENCOUNTER 2025-07-24 14:02 | Outpatient (AMB) | payer OTHER, SELFPAY ==
[2025-07-24 14:07] VITALS: BP 130/70; PULSE 84; TEMP 36.6; O2SAT 95; BMI 19.1
--- NOTE | 2025-07-24 14:07 | MHC.PC.OV ---
Vital Signs 07/24/25 14:07 Height 5 ft 1 in Weight 101 lb BMI 19.1 BP 130/70 Blood Pressure Location Rt brachial Position Sitting Pulse 84 Pulse Source Pulse Oximeter Temp 98 F Temp Source Oral Pulse Oximetry (%) 95 Oxygen Delivery Method Room Air Intake Visit Reasons: Annual PE Intake Note: Pt is here today for her PE: Last mammogram 07/01/24 Doll Wig Maker Required: No Allergies olanzapine (From ZYPREXA) Adverse Reaction (Intermediate, Verified 07/24/25 14:17) RLS symptoms clonidine Adverse Reaction (Verified 07/24/25 14:17) RLS diphenhydramine (From Benadryl) Adverse Reaction (Verified 07/24/25 14:17) RLS hydroxyzine Adverse Reaction (Verified 07/24/25 14:17) RLS melatonin Adverse Reaction (Verified 07/24/25 14:17) RLS atypical antipsychotics Adverse Reaction (Severe, Uncoded 07/24/25 14:17) This class appears to potentiate RLS/Akathesia Medication List - Last Reconciled 07/24/25 by Tonya Sarmiento MD albuterol sulfate 90 mcg/actuation 2 puffs PO Q4-6H PRN albuterol sulfate 2.5 mg (6 mL) inhalation Q4-6H PRN 30 days cholecalciferol (vitamin D3) (Vitamin D3) 50 mcg PO DAILY clonazepam (Klonopin) 2 mg PO BEDTIME [Diabetic ensure drink Diabetic ensure drink twice daily as directed] divalproex ER 500 mg PO BEDTIME docusate sodium 100 mg PO BID PRN fluticasone propion-salmeterol 250-50 mcg/dose (Wixela Inhub) 1 inh inhalation BID 30 days guanfacine ER 1 mg PO QID 30 days ibuprofen 400 mg PO Q6H PRN ketorolac 10 mg PO Q6H PRN levothyroxine 50 mcg PO DAILY@0600 lidocaine 4% (Lidocaine Pain Relief) 1 patch See Protocol transdermal DAILY lithium carbonate 150 mg (1/2 x 300 mg) PO DAILY 30 days meloxicam 15 mg PO DAILY PRN methocarbamol 750 mg PO Q8H PRN 5 days modafinil 200 mg PO QAM nicotine 1 patch transdermal DAILY 28 days omeprazole magnesium (Prilosec OTC) 20 mg PO DAILY pramipexole 0.25 mg orally evening and bedtime; pregabalin 150 mg PO TID rosuvastatin 5 mg PO Q2D 3 months zolpidem (Ambien) 10 mg PO BEDTIME PRN Tobacco use date assessed: 07/24/25 Dental Screening Dental Screen Date: 07/24/25 Did you have a dental visit in the last 12 months?: Yes Did you have a dental problem in the last 6 months where you did not have access to dental care?: No Was dental information given to patient?: Patient has dentist HPI Annual PE HPI Details 64-year-old lady with history of COPD, active smoker with no desire to quit at present time, has history of bipolar 2 disorder, PTSD, fibromyalgia, restless leg syndrome, type 2 diabetes mellitus, hypothyroidism, osteoporosis, and hyperlipidemia, here today for her physical Her breathing is stable on Wixela, which she takes as two puffs twice daily, and she is diligent about rinsing her mouth afterwards. She has a history of an oral yeast infection when she first started the inhaler. The patient was recently evaluated in the emergency room for a twisted intestine with kinking and fluid build-up, for which a gastro surgeon recommended non-emergent surgical intervention. She has been experiencing nausea, which has interfered with getting her blood work done. She has a forthcoming appointment with a hot worker on August 07. For her left knee pain, she had an MRI on July 15, 2025 and is scheduled to see Dr. Temple tomorrow to review the results. Regarding preventative care, the patient is late for her mammogram, which was last performed in June 2024. She is also due for a Pap smear, which she has not had annually, and a colonoscopy is pending. Her last A1c was 6.2% in February, and a more recent non-fasting A1c was 6.4%. Continues to smoke cigarettes, with no desire to quit at present time but has been cutting back [facility] 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 [id number] ADHD Hypothyroidism Polysubstance use disorder Cannabis use disorder Cocaine use disorder Acute medication-induced akathisia Osteopenia of multiple sites Syncope Type II diabetes mellitus Fibromyalgia Benzodiazepine abuse RLS (restless legs syndrome) COPD (chronic obstructive pulmonary disease) HLD (hyperlipidemia) Surgical History History of vaginal hysterectomy History of cataract surgery Family History Mother CAD (coronary artery disease) Father Alcoholism Son Substance use disorder Son Substance use disorder Social History Household Members: Spouse Household Members Other:: son's girlfriend Housing: Apartment Do you presently have visiting nurse or other home services: No Alcohol intake: never Comment: Pt reports falling d/t excessive intake of Benzo's prior to admission Patient Tobacco Use Status: Current everyday Tobacco user Tobacco use type: Cigarette Cigarette Packs Per Day: 1 Cigarettes Per Day: 8 Years Smoked: 45 e-Cigarette/Vaping Use: Never Used Second Hand Smoke Exposure: No Substance Use Type: Marijuana Advance Directives Date on File: 06/05/24 service: No Current occupational status: unemployed Sexual orientation: Straight/Heterosexual Cognitive needs: No Hearing needs: No Vision needs: No Questionnaire PHQ-9 Over the last 2 weeks, how often have you been bothered by any of the following problems? 1. Little interest or pleasure in doing things: several days 2. Feeling down, depressed, or hopeless: several days 3. Trouble falling or staying asleep, or sleeping too much: more than half the days 4. Feeling tired or having little energy: not at all 5. Poor appetite or overeating: several days 6. Feeling bad about yourself - or that you are a failure or have let yourself or your family down: not at all 7. Trouble concentrating on things, such as reading the newspaper or watching television: several days 8. Moving or speaking so slowly that other people could have noticed. Or the opposite - being so fidgety or restless that you have been moving around a lot more than usual: not at all 9. Thoughts that you would be better off or of hurting yourself in some way: not at all Total score: 6 Depression Screening Interpretation: Positive (Currently followed by psychiatry and sees therapist at [facility]) Depression Screening Follow-up: Existing condition, In treatment and Community Mental Health Worker F/U Depression Screening Done: Yes Source: Developed by Drs. Darion Garcia, Wilma Slater, Vernon Mayorga and colleagues, with an educational eloy from [employer]. Thrive Questionnaire Date Thrive assessed: 07/21/25 I am a: Patient What is your living situation today?: I choose not to answer this question Within the past 12 months, did the food you bought not last and you didn't have the money to get more?: Never true Within the past 12 months, did you worry whether your food would run out before you got money to buy more?: Never true Do you have trouble paying for medicines?: No Do you have trouble getting transportation to medical appointments?: Yes Do you have trouble paying your heating and electricity bill?: Yes Do you have trouble taking care of your child, family member or friend?: No Do you have trouble with day-to-day activities such as bathing, preparing meals, shopping, managing finances, etc.?: No Are you currently unemployed and looking for a job?: No Are you interested in more education?: No Please select the resources that you would like help with: Housing/Group Home THRIVE Score: 2 AUDIT C Alcohol Use Questionnaire (AUDIT-C) 1. How often do you have a drink containing alcohol?: Never Total Score: 0 MARY-7 AMB Questionnaire MARY-7 Date MARY - 7 assessed: 06/05/24 Feeling nervous, anxious, or on edge: 1 = Several days Not being able to stop or control worryin = Several days Worrying too much about different things: 1 = Several days Trouble relaxin = Several days Being so restless that it is hard to sit still: 1 = Several days Becoming easily annoyed or irritable: 1 = Several days Feeling afraid as if something awful might happen: 0 = Not at all Total MARY-7 score (0-4 normal; 5-9 mild; 10-14 moderate; 15-21 severe): 6 Source: Developed by Drs. Darion Garcia, Vernon Lala and colleagues, with an educational eloy from [employer]. MARY-7 Assessment Billing MARY-7 Assessment Tool: MARY-7 Assessment 09316 (Followed by psychiatry) Review of Systems Const All systems reviewed & are unremarkable except as noted in HPI and below Eyes Details: Eye and Lasik surgery, had cataract surgery, has dry eyes Reports no additional complaints ENT Reports no additional complaints Card Denies chest pain, Denies irregular heart rhythm and Denies leg edema Resp Reports as per HPI GI Reports no additional complaints Reports no additional complaints Musc Reports back pain (Chronic) Skin/Breast Reports system reviewed and no additional complaints, except as documented Neuro Reports no additional complaints Psych Reports anxiety, Reports mood swings and Reports other (Bipolar disorder) Endo Reports other (Hypothyroidism) Anthony/Lymph Reports no additional complaints Aller/Immun Reports no additional complaints Physical exam (Primary Care) Vital Signs: Last Vital Signs Temp 98 F 07/24/25 14:07 Pulse 84 07/24/25 14:07 BP 130/70 07/24/25 14:07 Pulse Ox 95 07/24/25 14:07 Oxygen Delivery Method Room Air 07/24/25 14:07 BMI result Body Mass Index 19.1 Tobacco/Smoking Status: Tobacco use Status Tobacco use date assessed 07/24/25 07/24/25 14:13 Patient Tobacco Use Status Current everyday Tobacco 07/24/25 14:13 Tobacco use type Cigarette 07/24/25 14:13 e-Cigarette/Vaping Use Never Used 07/24/25 14:13 PHQ-9: PHQ-9 Score PHQ-9: Total score 6 08/04/25 19:57 Depression Screening Interpretation: Positive (Currently followed by psychiatry and sees therapist at [facility]) Depression Screening Follow-up: Existing condition, In treatment and Community Mental Health Worker F/U Thrive Assessment: Date of Thrive Assessment Date Thrive assessed 07/21/25 07/24/25 14:13 Const General: comfortable and no acute distress Nutritional Appearance: underweight Orientation/consciousness: patient oriented x3 HENMT Ears: external ears normal General nose exam: Normal external nose present Mouth: Normal oral and palatal mucosa present, oropharynx normal and moist mucous membranes Eyes General: appearance normal, both eyes and all related structures Neck Neck: Yes full ROM, Yes no lymphadenopathy and Yes supple Chest Breast/axilla palpation: normal palpation of the breasts Resp Effort & Inspection: normal respiratory effort and able to speak in complete sentences Auscultation: clear to auscultation bilaterally Cardio Rate: regular rate Rhythm: regular rhythm Heart sounds: S1 normal heart sound present and S2 normal heart sound present GI Palpation (GI): Soft to palpation, nontender and no masses Auscultation: normal bowel sounds Back/Spine/Pelvis Back: No back tenderness Skin General skin exam: dry skin Neuro General: patient oriented x3, gait normal, tone normal, moves all extremities, Normal light touch and pain sensation and no focal motor deficits Cranial nerves: Yes CN's II-XII intact bilaterally Cognition (Neuro): normal cognition Extrem General: Yes full ROM, Yes no joint enlargement, Yes no clubbing, cyanosis or edema and Yes no calf tenderness Psych Appearance: grossly normal and well kempt Mental Status: mental status grossly normal Speech and movement: Normal speech and movement present Affect: normal affect Results Reviewed Results Reviewed: Name: Jaja Beebe Age/Sex: 64/F : 1960 Unit#: [id number] Attend Dr: Sukumar Millan MD Re06/28/25 Status: DEP ER Location: .ED Disch: SPEC : [id number] TORRI: 06/28/25 STATUS: COMP REQ : [id number] RECD: 06/28/[address] [facility] [address]: Gin Loera NP COMP: 06/28/25 ENTERED: 06/28/[address] [facility] [address]: ORDERED: CBC Auto Diff Test Result Flag Reference WBC 6.5 4.8-10.8 X10*3/uL RBC 4.27 4.20-5.50 X10*6/uL HGB 14.0 12.0-16.0 g/dl HCT 41.8 37.0-47.0 % MCV 97.9 80.0-98.0 fL MCH 32.8 27.0-33.0 pg MCHC 33.5 31.0-35.0 g/dl RDW 13.1 11.0-16.0 % PLT 407 H 160-400 X10*3/uL MPV 9.0 L 9.4-12.3 fL Neut Pct Auto 65.0 45-73 % ImGran Pct Auto 0.2 0.0-0.4 % Lymp Pct Auto 27.6 20-40 % Bennett Pct Auto 6.6 2-11 % Eos Pct Auto 0.3 0-4 % Baso Pct Auto 0.3 0-2 % NRBC Pct Auto 0.0 0.0-0.2 /100WBC ANC Neut Abs # 4.2 2.0-8.3 x10*3/uL ImGran Abs Auto 0.01 0.00-0.03 X10*3/uL Lymph Abs Auto 1.8 1.2-4.9 X10*3/uL Bennett Abs Auto 0.4 0.1-1.2 X10*3/uL Eos Abs Auto 0.0 0.0-0.4 X10*3/uL Baso Abs Auto 0.0 0.0-0.2 X10*3/uL NRBC Abs Auto 0.000 0.0-0.012 X10*3/uL Name: Jaja Beebe Age/Sex: 64/F : 1960 Unit#: [id number] Attend Dr: Sukumar Millan MD Re06/28/25 Status: DEP ER Location: [facility] Disch: SPEC : [id number] TORRI: 06/28/25 STATUS: COMP REQ : [id number] RECD: 06/28/25-[address]: Gin Loera NP COMP: 06/28/256 ENTERED: 06/28/25-[address]: ORDERED: CMP, MG, Lip Test Result Flag Reference Sodium 136 135-145 mmol/L Potassium 4.6 3.3-5.1 mmol/L CL 106 96-108 mmol/L CO2 23 22-29 mmol/L Gap 12 12-20 BUN 16 9-16 mg/dL Creat 0.62 0.5-1.4 mg/dL Estimated CrCl 70.7 Provided height and weight: 154.94 cm, 47.627 kg. eGFR (calculated from the MDRD study equation) and eCrCl (calculated from the Cockcroft-Gault equation) are based on different parameters and may not yield comparable results. If eCrCl result is absurd, please check patient's height/weight. eGFR > 60 Chronic Kidney Disease: Estimated GFR < 60 mL/min/1.73m2 Severe Kidney Disease: Estimated GFR < 15 mL/min/1.73m2 Glucose, Random 137 H 60-115 mg/dL CA 9.4 8.4-10.2 mg/dL Magnesium 1.8 1.6-2.6 mg/dL Total Bili 0.2 0.0-1.0 mg/dL AST (GOT) 18 5-31 U/L ALT (GPT) 17 0-31 U/L Protein, Total 7.5 6.5-8.0 g/dL Alb 4.6 3.5-5.0 g/dL Alk Phos 113 39-117 U/L Lipase 22 8-78 U/L Name: Jaja Beebe Age/Sex: 64/F : 1960 Unit#: [id number] Attend Dr: Tonya Sarmiento MD Re02/28/25 Status: DEP REF Location: [facility] Disch: SPEC : [id number] TORRI: 02/28/25 STATUS: COMP REQ : [id number] RECD: 02/28/[address]: Tonya Sarmiento MD COMP: 02/28/25 ENTERED: 02/28/[address]: ORDERED: Met Prof Fast, AST, ALT, Lipid Panel, Vitamin D 25-OH, Free T4, TSH Test Result Flag Reference Sodium 140 135-145 mmol/L Potassium 4.7 3.3-5.1 mmol/L CL 104 96-108 mmol/L CO2 29 22-29 mmol/L Gap 12 12-20 BUN 17 H 9-16 mg/dL Creat 0.74 0.5-1.4 mg/dL eGFR > 60 Chronic Kidney Disease: Estimated GFR < 60 mL/min/1.73m2 Severe Kidney Disease: Estimated GFR < 15 mL/min/1.73m2 FBS 102 H 60-99 mg/dL A fasting glucose from 100-125 mg/dl is considered impaired (pre-diabetes). CA 9.6 # 8.4-10.2 mg/dL AST (GOT) 20 5-31 U/L ALT (GPT) 31 0-31 U/L Triglyceride 191 H <150 mg/dL Desirable Triglyceride: less than 150 mg/dL Borderline High Triglyceride 150-199 mg/dL High Triglyceride: 200-499 mg/dL Very High Triglyceride: greater than or equal to 5OO mg/dL Cholesterol 252 H <200 mg/dL Desirable Cholesterol: less than 200 mg/dL Borderline High Cholesterol: 200-239 mg/dL High Cholesterol: greater than 239 mg/dL LDL Calculated 136 H <100 mg/dL Desirable LDL: less than 100 mg/dL Near Optimal/Above Optimal LDL: 110-129 mg/dL Borderline High LDL: 130-159 mg/dL High LDL: 160-189 mg/dL Very High LDL: greater than or equal to 190 mg/dL HDL 78 >40 mg/dL Desirable HDL: greater than 40 mg/dL Note: This HDL assay may give artificially low results in patients with liver disease. Vitamin D 25-OH 41.0 >30 ng/mL Health Based Reference Values* < 20 ng/mL Deficient 20-30 ng/mL Insufficient > 30 ng/mL Sufficient *Luz Elena PARK. N Engl J Med. 2007;357:266-280 There is no well-established upper level of normal vitamin D levels. Some laboratories use 50 ng/mL as an upper limit of normal. However, toxicity is patient-dependent and may occur at any level. Careful correlation with the patient's presentation is necessary and, if there is concern for vitamin D toxicity, treatment should be considered irrespective of the serum level. Care must be taken in interpreting Vitamin D results from different laboratories and methodologies. Published data demonstrated that results from patients undergoing hemodialysis may show a negative bias when tested with various automated 25-OH vitamin D assays when compared to LC-MS/MS. When testing samples from patients whose predominant form of Vitamin D is Vitamin D2, such as patients receiving Vitamin D2 supplementation, results that are subtherapeutic should be confirmed with another method such as LC-MS/MS. Free T4 1.06 0.71-1.85 ng/dL TSH 3rd Gen. 5.84 H 0.32-4.0 uIU/mL Note: A sustained TSH level above 2.5 uIU/mL may warrant further investigation. TSH 3rd Generation ([facility]) Coding Level of Care Code Est Pt Prev Care 40-64y(72591) Diagnoses Annual visit for general adult medical examination with abnormal findings Z00.01 Encounter for screening for malignant neoplasm of cervix Z12.4 Bipolar II disorder F31.81 Attention deficit hyperactivity disorder (ADHD), combined type F90.2 Attention deficit-hyperactivity disorder type: combined inattentive-hyperactive HLD (hyperlipidemia) E78.5 Type II diabetes mellitus E11.9 Acquired hypothyroidism E03.9 Hypothyroidism type: acquired Osteoporosis M81.0 Bilateral primary osteoarthritis of knee M17.0 Fibromyalgia M79.7 COPD (chronic obstructive pulmonary disease) J44.9 Nicotine dependence, cigarettes, uncomplicated F17.210 Additional Codes MARY-7 Assessment Billing - MARY-7 Assessment Tool: MARY-7 Assessment 22788 ([id number]) Assessment & Plan Assessment & Plan (1) Annual visit for general adult medical examination with abnormal findings: Code(s): Z00.01 - Encounter for general adult medical examination with abnormal findings Plan: patient is overdue for several screenings. Orders will be placed for a mammogram and a referral to M[facility] PROCESSING OPERATOR for a Pap smear at [facility]. The patient will be contacted to schedule these appointments. She prefers to schedule them after her intestinal surgery in August. Regarding her colonoscopy, it was advised to discuss scheduling with her hot worker, Dr. Hammond, as it may not be feasible to perform it concurrently with her intestinal surgery due to the required prep. The current plan is to await her gastroenterology appointment on August 07 and her orthopedic appointment for further clarification on her overall health status before proceeding with scheduling these preventative measures. Up-to-date with her pneumococcal vaccination RSV and received 1 dose of her shingles vaccine reminded to get 2nd dose of her Shingrix. Reminded as well to get her yearly flu vaccine and COVID booster (2) Encounter for screening for malignant neoplasm of cervix: Code(s): Z12.4 - Encounter for screening for malignant neoplasm of cervix Plan: Referred to OBGYN for her pelvic exam and cervical cancer screening. (3) Bipolar II disorder: Code(s): F31.81 - Bipolar II disorder Category: Medical Plan: Followed by psychiatry (4) ADHD: Comment: on Modafinil Code(s): F90.9 - Attention-deficit hyperactivity disorder, unspecified type Category: Medical Qualifiers: Attention deficit-hyperactivity disorder type: combined inattentive-hyperactive Qualified Code(s): F90.2 - Attention-deficit hyperactivity disorder, combined type Plan: Followed by psychiatrist, currently on modafinil (5) HLD (hyperlipidemia): Code(s): E78.5 - Hyperlipidemia, unspecified Category: Medical Plan: Continue rosuvastatin 5 mg taken every other day (6) Type II diabetes mellitus: Code(s): E11.9 - Type 2 diabetes mellitus without complications Category: Medical Plan: Continue adherence with healthy eating habits and getting regular exercise, latest hemoglobin A1c done February 2025 was 6.2%. Reminded to get repeat fasting labs done, orders already sent. Reminded to get yearly diabetes retinopathy screening. Received an updated pneumococcal vaccine, reminded to get her yearly flu shot. (7) Hypothyroidism: Code(s): E03.9 - Hypothyroidism, unspecified Category: Medical Qualifiers: Hypothyroidism type: acquired Qualified Code(s): E03.9 - Hypothyroidism, unspecified Plan: Continued on levothyroxine 50 mcg daily. Patient reminded to get her repeat thyroid levels checked, orders are already in labs (8) Osteoporosis: Comment: 20 min reviewing chart eval pt and documenting Code(s): M81.0 - Age-related osteoporosis without current pathological fracture Category: Medical Plan: Continue vitamin D3 supplements (9) Bilateral primary osteoarthritis of knee: Code(s): M17.0 - Bilateral primary osteoarthritis of knee Category: Medical Plan: The patient recently had an MRI of her left knee on July 15, 2025. She will follow up with Dr. Temple tomorrow to review the results and discuss further management. (10) Fibromyalgia: Comment: started on Pregabalin by psych Code(s): M79.7 - Fibromyalgia Category: Medical Plan: Currently on pregabalin (11) COPD (chronic obstructive pulmonary disease): Comment: SHE HAS A VERY MILD TO MODERATE SMALL AIRWAY OBSTRUCTIVE DISORDER, AT PRESENT, SEEMS TO BE CONTROLLED VERY WELL. THE AMOUNT OF SHORTNESS OF BREATH AND COUGH AND OCCASIONAL WHEEZING DEPENDS UPON HER SMOKING. SHE IS BENEFITING FROM THE USE OF WIXELA Code(s): J44.9 - Chronic obstructive pulmonary disease, unspecified Category: Medical Plan: he patient's breathing is well-controlled with Wixela, two puffs twice daily. She is aware of the risk of oral candidiasis and rinses her mouth after use. Continue current management. (12) Nicotine dependence, cigarettes, uncomplicated: Comment: (onset 17yo, 1/2ppd x 46yrs, 23pyh) , currently smoking only a few cigarettes a day, but sometime goes up to half-a-pack a day to alleviate her anxiety. Code(s): F17.210 - Nicotine dependence, cigarettes, uncomplicated Category: Medical Plan: Patient strongly advised to stop smoking, as smoking damages blood vessels, degenerative of joints and spine, damage to lungs and heart., predisposes to developing certain cancers like lung, breast, bladder, colon. Recommended to try decreasing cigarette use by 1-2 cigarettes a day. Advised to monitor what triggers are for smoking so that this can be discussed on the next office visit. We can discuss different options to quit smoking when ready. Orders: Orders MM tomosynthesis screening BI 07/24/25 Z12.31 - Encounter for screening mammogram for malignant neoplasm of breast Referrals MASH PROCESSING OPERATOR Referral Z12.4 - Encounter for screening for malignant neoplasm of cervix
--- OUTSIDE RECORDS SUMMARY | 2025-07-24 21:51 | XMS_ITS | Clinical Summary ---
Author Organization [facility] Address [address] [place] [address] Phone Care Team Providers Care Cornice Upholsterer Name Role Phone Parth Kim MD Primary [...] EDT) SODIUM 142 133 - 146 mmol/L [facility] CHLORIDE 105 96 - 108 mmol/L [facility] POTASSIUM 4.3 3.3 - 5.1 mmol/L [facility] CO2 26 21 - 35 mmol/L [facility] BUN 14 6 - 19 mg/dL [facility] CREATININE 0.50 0.5 - 1.5 mg/dL [facility] GLUCOSE 82 70 - 99 mg/dL [facility] CALCIUM 9.2 8.4 - 10.3 mg/dL [facility] EGFR 107 >59 mL/min/1.7 3m2 [facility] Comment:Estimated glomerular filtration rate calculated using the CKD-EPI refit equation. ANION GAP 15 10 - 20 mmol/L [facility] Blood 12/01/2022 5:21 PM EDT 12/01/2022 5:33 PM EDT us Bisi Cervantes PA-C LAB BLOOD BKR OR DERABLES Final Result Performing Organization Address [facility]/ZIP Co de Phone Number [address] [address] * (ABNORMAL) [place] level (12/02/2021 8:50 PM EDT) LITHIUM <0.05(L) 0.5 - 1.00 mmol/L [facility] Blood 12/02/2021 8:50 PM EDT 12/02/2021 9:02 PM EDT us Royal Jalloh MD LAB BLOOD BKR ORDERABLES F inal Result Performing Organization Address [facility] Co de Phone Number [address] [address] from Last 3 Months or Most Recently Relevant to Health Maintenance Insurance MEDICARE PART A & B [facility] [place] [facility] MEDICARE [facility] A & [place] [facility] [facility] B [facility] Care Teams Cornice Upholsterer Relationship Specialty Start Date End Date Parth Kim MD [address] [place] [address] [place] [address] PCP - General Internal Medicine 11/18/19 Additional Source Comments The information contained in this document represents components of the legal health record. It is not the complete legal health record.[facility]
--- OUTSIDE RECORDS SUMMARY | 2025-07-24 21:51 | XMS_ITS | Encounter Summary ---
Author Organization [employer] Address [address] [facility] 7t [place] [address] Care Team Providers Care Chemistry Specialist Name Role Phone Unavailable Primary Care Provider Unavailabl e Reason for Visit * Reason Onset Date Comments insurance information/self pay 08/17/2024 Encounter Details Date Type Department Care Team (Late st Contact Info) Description 08/17/2024 Telephone C ADULT DENTAL [address] [place], [place] [phone] Kj Zurita, SAEID [address] [place], [place] [phone] insurance information/self pay Social History Tobacco Use [...] 8:27 AM EST Patient states she has [employer] for insurance but does not have the [...]
--- OUTSIDE RECORDS SUMMARY | 2025-07-24 21:51 | XMS_ITS | Patient Health Record ---
Author Organization [facility] Address [address] [place] [address] Care Team Providers Care Engineering Scientist Name Role Phone Tonya Sarmiento MD Primary Care Provider Darion Carrasquillo Unavailable [phone] Reason For Referral No Information Medications Medication SIG (Take, Route, Frequency, Duration) Notes Start Date End Date Status [place] Carbonate 300 MG Capsule 3 capsule at [...] Problem Screening for malignant neoplasm of colon (452552278) Encounter for screening for malignant neoplasm of colon (Z12.11) Active confirmed Problem Preprocedural examination (221840516301838) Preprocedural examination (Z01.818) Active confirmed Encounters Encounter Location Date Provider Diagnosis [facility] [address] [place] [address] 07/01/2025 Darion Brooks [facility] [address] [place] [address] 07/02/2025 Darion Brooks Plan Of Treatment Future Test Test Name Order Date COLONOSCOPY 04/12/2019 Insurance Providers Payer Name Payer Address Payer Phone Subscriber Number Group Number Insured Name Patient Relationship to Insured Coverage Start Date Coverage End Date [facility] [address] [place] [address] [id number] FARAZ KNOX Self - patient is the insured Medical (General) History Medical History History ICD Code Asthma Denies HI,DM,CVA,renal disease Bipolar depression Hypothyroidism Hyperlipidemia Surgical History Surgery Date(Month/Year) Partial hysterectomy 2001 Cataracts-lens implants 2018
--- OUTSIDE RECORDS SUMMARY | 2025-07-24 21:51 | XMS_ITS | Clinical Summary ---
Author Organization [employer] Address [address] [facility] 7t [place] [address] Care Team Providers Care Optical Instruments Supervisor Name Role Phone Unavailable Primary Care [...]
--- OUTSIDE RECORDS SUMMARY | 2025-07-24 21:51 | XMS_ITS | Encounter Summary ---
Author Organization [employer] Address [address] [facility] 7t [place] [address] Care Team Providers Care Conduit Helper Name Role Phone Unavailable Primary Care Provider [...]
--- OUTSIDE RECORDS SUMMARY | 2025-07-24 21:51 | XMS_ITS | Encounter Summary ---
Author Organization [facility] Address [address] [address] Phone Care Team Providers Care Nursing Program Coordinator Name Role Phone Parth Kim MD Primary Care Provider Encounter Details Date Type Department Care Team (Latest Contact Info) Description 11/22/2022 Transcribe Orders [facility] Specimen Processing [address] [place] [address] Bisi Cervantes PA-C [address] [place] [address] [email or web address] Encounter for screening (Primary Dx) [...] 4:41 PM EDT Aysha Cuadra, RN * [place] Suicide Severity Rating Scale (Screener/Recent Self-Report) Question [...] PM EDT) URINE CANNABINOIDS Positive(A) NONE DETECTED [facility] Comment:Cutoff: 50 ng/mL URINE COCAINE METAB NONE DETECTED NONE DETECTED [facility] Comment:Cutoff: 300 ng/mL URINE AMPHETAMINES NONE DETECTED NONE DETECTED [facility] Comment:Cutoff: 1000 ng/mL URINE METHADONE NONE DETECTED NONE DETECTED [facility] Comment:Cutoff: 300 ng/mL URINE OPIATES NONE DETECTED NONE DETECTED [facility] Comment:Cutoff: 300 ng/mL URINE PHENCYCLIDINE NONE DETECTED NONE DETECTED [facility] Comment:Cutoff: 25 ng/mL URINE OXYCODONE NONE DETECTED NONE DETECTED [facility] Comment:Cutoff: 300 ng/ml URINE BARBITURATES NONE DETECTED NONE DETECTED [facility] Comment:Cutoff: 200 ng/mL URINE BENZODIAZEPINE NONE DETECTED NONE DETECTED [facility] Comment:Cutoff: 200 ng/mL URINE BUPRENORPHINE NONE DETECTED NONE DETECTED [facility] Comment: Cutoff: 5 ng/mL INTERPRETATION FOR TOXICOLOGY PANEL: These results are unconfirmed and should be used for Medical Treatment purposes only. Urine (Urine) 11/22/2022 7:1 4 PM EDT 11/22/2022 7:15 PM EDT us Bisi Cervantes PA-C LAB URINE ORDERA BLES Final Result [facility] [address] [place] [address] documented in this encounter Visit Diagnoses Diagnosis Encounter for screening- Primary documented in this encounter Care Teams Nursing Program Coordinator Relationship Specialty Start Date End Date Parth Kim MD [address] [place] [address] [place] [address] PCP - General Internal Medicine 11/18/19 documented as of this encounter Additional Source Comments The information contained in this document represents components of the legal health record. It is not the complete legal health record.[facility]
--- OUTSIDE RECORDS SUMMARY | 2025-07-24 21:52 | XMS_ITS | Patient Health Record ---
Author Organization [facility] Address [address] [place] [address] Care Team Providers Care Mold Tooler Name Role Phone [facility] Primary Care Provider [phone] Karoline Carcamo Unavailable [phone] Reason For Referral No Information Plan Of Treatment No Information Insurance Providers Payer Name Payer Address Payer Phone Subscriber Number Group Number Insured Name Patient Relationship to Insured Coverage Start Date Coverage End Date [place] Medicare Part [place] [employer] [address] [place] [address] [id number] Jaja Beebe Self - patient is the insured 2 2
== END 2025-07-24 14:48 | disposition home or self-care (01) ==
LOC: HO.HMCC 14:03
PROVIDERS: PCP Internal Medicine; Visit Provider Internal Medicine
DX: Z00.01 Encounter for general adult medical examination with abnormal findings (principal); F31.81 Bipolar II disorder; E11.42 Type 2 diabetes mellitus with diabetic polyneuropathy; J44.9 Chronic obstructive pulmonary disease, unspecified; F90.2 Attention-deficit hyperactivity disorder, combined type; E78.5 Hyperlipidemia, unspecified; E03.9 Hypothyroidism, unspecified; M81.0 Age-related osteoporosis without current pathological fracture; M17.0 Bilateral primary osteoarthritis of knee; M79.7 Fibromyalgia; F17.210 Nicotine dependence, cigarettes, uncomplicated

== ENCOUNTER → 2025-07-24 14:02 | Outpatient (BNVA) | payer OTHER, SELFPAY | PROVIDERS: PCP Internal Medicine; Visit Provider Internal Medicine | DX: Z13.31 Encounter for screening for depression (principal) | CPT/HCPCS: 96127 ==

== ENCOUNTER 2025-08-07 12:40 | Outpatient (AMB) | payer OTHER, SELFPAY ==
--- OUTSIDE RECORDS SUMMARY | 2025-08-07 12:42 | XMS_ITS | Patient Health Record ---
Author Organization [facility] Address [address] [place] [address] Care Team Providers Care Operations Support Analyst Name Role Phone [facility] Primary Care Provider [phone] Karoline Carcamo Unavailable Reason For Referral No Information Plan Of Treatment No Information Insurance Providers Payer Name Payer Address Payer Phone Subscriber Number Group Number Insured Name Patient Relationship to Insured Coverage Start Date Coverage End Date [place] Medicare Part [place] [employer] [address] [place] [address] [id number] Jaja Beebe Self - patient is the insured 2 2
--- OUTSIDE RECORDS SUMMARY | 2025-08-07 12:42 | XMS_ITS | Encounter Summary ---
Author Organization [employer] Address [address] [facility] 7t [place] [address] Care Team Providers Care Beef Breaker Name Role Phone Unavailable Primary Care Provider Unavailabl e Reason for Visit * Reason Onset Date Comments insurance information/self pay 08/17/2024 Encounter Details Date Type Department Care Team (Late st Contact Info) Description 08/17/2024 Telephone C ADULT DENTAL [address] [place], [place] [phone] Kj Zurita, SAEID [address] [place], [place] [phone] insurance information/self pay Social History Tobacco Use [...] 8:27 AM EST Patient states she has [employer] for insurance but does not have the [...]
--- OUTSIDE RECORDS SUMMARY | 2025-08-07 12:42 | XMS_ITS | Clinical Summary ---
Author Organization [facility] Address [address] [place] [address] Phone Care Team Providers Care Geothermal Heat Pump Machinist Name Role Phone Parth Kim MD Primary [...] EDT) SODIUM 142 133 - 146 mmol/L [facility] CHLORIDE 105 96 - 108 mmol/L [facility] POTASSIUM 4.3 3.3 - 5.1 mmol/L [facility] CO2 26 21 - 35 mmol/L [facility] BUN 14 6 - 19 mg/dL [facility] CREATININE 0.50 0.5 - 1.5 mg/dL [facility] GLUCOSE 82 70 - 99 mg/dL [facility] CALCIUM 9.2 8.4 - 10.3 mg/dL [facility] EGFR 107 >59 mL/min/1.7 3m2 [facility] Comment:Estimated glomerular filtration rate calculated using the CKD-EPI refit equation. ANION GAP 15 10 - 20 mmol/L [facility] Blood 12/01/2022 5:21 PM EDT 12/01/2022 5:33 PM EDT us Bisi Cervantes PA-C LAB BLOOD BKR OR DERABLES Final Result Performing Organization Address [facility]/ZIP Co de Phone Number [address] [address] * (ABNORMAL) [place] level (12/02/2021 8:50 PM EDT) LITHIUM <0.05(L) 0.5 - 1.00 mmol/L [facility] Blood 12/02/2021 8:50 PM EDT 12/02/2021 9:02 PM EDT us Royal Jalloh MD LAB BLOOD BKR ORDERABLES F inal Result Performing Organization Address [facility] Co de Phone Number [address] [address] from Last 3 Months or Most Recently Relevant to Health Maintenance Insurance MEDICARE PART A & B [facility] MEDIC[facility] PART A & [facility] [place] [facility] [facility] PART A & B HEALTH MEDICARE [facility] A & [place] A & [facility] A & B [facility] Care Teams Geothermal Heat Pump Machinist Relationship Specialty Start Date End Date Parth Kim MD [address] [place] [address] [place] [address] PCP - General Internal Medicine 11/18/19 Additional Source Comments The information contained in this document represents components of the legal health record. It is not the complete legal health record.[facility]
--- OUTSIDE RECORDS SUMMARY | 2025-08-07 12:42 | XMS_ITS | Encounter Summary ---
Author Organization [facility] Address [address] [facility] [address] [place] [address] Phone Care Team Providers Care Hand Ii Cutter Name Role Phone Parth Kim MD Primary Care Provider Encounter Details Date Type Department Care Team (Latest Contact Info) Description 11/22/2022 Transcribe Orders [facility] Specimen Processing [address] [place] [address] Bisi Cervantes PA-C [address] [place] [address] [email or web address] Encounter for screening (Primary Dx) [...] AM EDT documented as of this encounter Plan of Treatment Not on file documented as of this encounter Procedures Procedure Name Priority Date/Time Associated Diagnosis Comments TOXICOLOGY SCREEN, URINE Routine 11/22/2022 7:14 PM EDT Encounter for screening documented in this encounter Results * (ABNORMAL) Toxicology screen, urine (11/22/2022 7:14 PM EDT) URINE CANNABINOIDS Positive(A) NONE DETECTED [facility] Comment:Cutoff: 50 ng/mL URINE COCAINE METAB NONE DETECTED NONE DETECTED [facility] Comment:Cutoff: 300 ng/mL URINE AMPHETAMINES NONE DETECTED NONE DETECTED [facility] Comment:Cutoff: 1000 ng/mL URINE METHADONE NONE DETECTED NONE DETECTED [facility] Comment:Cutoff: 300 ng/mL URINE OPIATES NONE DETECTED NONE DETECTED [facility] Comment:Cutoff: 300 ng/mL URINE PHENCYCLIDINE NONE DETECTED NONE DETECTED [facility] Comment:Cutoff: 25 ng/mL URINE OXYCODONE NONE DETECTED NONE DETECTED [facility] Comment:Cutoff: 300 ng/ml URINE BARBITURATES NONE DETECTED NONE DETECTED [facility] Comment:Cutoff: 200 ng/mL URINE BENZODIAZEPINE NONE DETECTED NONE DETECTED [facility] Comment:Cutoff: 200 ng/mL URINE BUPRENORPHINE NONE DETECTED NONE DETECTED [facility] Comment: Cutoff: 5 ng/mL INTERPRETATION FOR TOXICOLOGY PANEL: These results are unconfirmed and should be used for Medical Treatment purposes only. Urine (Urine) 11/22/2022 7:1 4 PM EDT 11/22/2022 7:15 PM EDT us Bisi Cervantes PA-C LAB URINE ORDERA BLES Final Result [address] [address] documented in this encounter Visit Diagnoses Diagnosis Encounter for screening- Primary documented in this encounter Care Teams Hand Ii Cutter Relationship Specialty Start Date End Date Parth Kim MD [address] [place] [address] [place] [address] PCP - General Internal Medicine 11/18/19 documented as of this encounter Additional Source Comments The information contained in this document represents components of the legal health record. It is not the complete legal health record.[facility]
--- OUTSIDE RECORDS SUMMARY | 2025-08-07 12:42 | XMS_ITS | Clinical Summary ---
Author Organization [employer] Address [address] [facility] 7t [place] [address] Care Team Providers Care Wind Turbine Design Engineer Name Role Phone Unavailable Primary Care [...]
--- OUTSIDE RECORDS SUMMARY | 2025-08-07 12:42 | XMS_ITS | Encounter Summary ---
Author Organization [employer] Address [address] [facility] 7t [place] [address] Care Team Providers Care Venture Capitalist Name Role Phone Unavailable Primary Care Provider [...]
--- OUTSIDE RECORDS SUMMARY | 2025-08-07 12:42 | XMS_ITS | Patient Health Record ---
Author Organization [facility] Address [address] [place] [address] Care Team Providers Care School Psychologist Assistant Name Role Phone Tonya Sarmiento MD Primary Care Provider Darion Carrasquillo Unavailable [phone] Reason For Referral No Information Medications Medication SIG (Take, Route, Frequency, Duration) Notes Start Date End Date Status [place] Carbonate 300 MG Capsule 3 capsule at [...] Problem Screening for malignant neoplasm of colon (652527381) Encounter for screening for malignant neoplasm of colon (Z12.11) Active confirmed Problem Preprocedural examination (191551961846798) Preprocedural examination (Z01.818) Active confirmed Encounters Encounter Location Date Provider Diagnosis [facility] [address] [place] [address] 07/01/2025 Darion Brooks [facility] [address] [place] [address] 07/02/2025 Darion Brooks Plan Of Treatment Future Test Test Name Order Date COLONOSCOPY 04/12/2019 Insurance Providers Payer Name Payer Address Payer Phone Subscriber Number Group Number Insured Name Patient Relationship to Insured Coverage Start Date Coverage End Date [facility] [address] [place] [address] [id number] FARAZ KNOX Self - patient is the insured Medical (General) History Medical History History ICD Code Asthma Denies [place],DM,CVA,renal disease Bipolar depression Hypothyroidism Hyperlipidemia Surgical History Surgery Date(Month/Year) Partial hysterectomy 2001 Cataracts-lens implants 2018
--- NOTE | 2025-08-07 12:44 | A.OFFVIS_ITS ---
Vital Signs 08/07/25 12:46 Height 5 ft 1 in Weight 101 lb BMI 19.1 BP 105/59 L Blood Pressure Location Lt brachial Position Sitting Pulse 81 Intake Visit Reasons: Abd pain Intake Note: Patient new consult for abdominal pain. Patient cc: little nauseas,chronic GERD with problems swallowing sometimes if she does not take Omeprazole. abdominal pain to the front to her back, CT scan was done last month. Vice President Talent Management Required: No Accompanied by: Self / Same As Patient Allergies olanzapine (From ZYPREXA) Adverse Reaction (Intermediate, Verified 08/07/25 12:44) RLS symptoms clonidine Adverse Reaction (Verified 08/07/25 12:44) RLS diphenhydramine (From Benadryl) Adverse Reaction (Verified 08/07/25 12:44) RLS hydroxyzine Adverse Reaction (Verified 08/07/25 12:44) RLS melatonin Adverse Reaction (Verified 08/07/25 12:44) RLS atypical antipsychotics Adverse Reaction (Severe, Uncoded 07/24/25 14:17) This class appears to potentiate RLS/Akathesia HPI Comments Details: 64y.o F with PMH of who is here for abd pain and esophagitis. Reports sudden onset of abdominal pain a month ago that prompted an ER visit. Describes the pain as sharp and feels as if her belly button is tethered to her back and being twisted. Compares the severity to labor pains. In the ER, CT was concerning for omental volvulus. Was seen by surgery in ER per her report who advised may eventually need surgery but needs GI follow up. She is accompanied by her today in office and appears very uncomfortable. Describes that the severe ache and pain comes in waves but a dull pain is there in her abdomen all the time. She has not been able to do much due to the pain including eating which aggravates the pain further. Has lost 8 lbs within a month. CT abd/pel also showed possible esophagitis. She does also report that food sometimes feels as if its just sitting in mid chest. Has been starting on PPI by her PCP. 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 ADHD Hypothyroidism Polysubstance use disorder Cannabis use disorder Cocaine use disorder Acute medication-induced akathisia Osteopenia of multiple sites Syncope Type II diabetes mellitus Fibromyalgia Benzodiazepine abuse RLS (restless legs syndrome) COPD (chronic obstructive pulmonary disease) HLD (hyperlipidemia) Surgical History History of vaginal hysterectomy History of cataract surgery Family History Mother CAD (coronary artery disease) Father Alcoholism Son Substance use disorder Son Substance use disorder Social History Household Members: Spouse Household Members Other:: son's girlfriend Housing: Apartment Do you presently have visiting nurse or other home services: No Alcohol intake: never Comment: Pt reports falling d/t excessive intake of Benzo's prior to admission Patient Tobacco Use Status: Current everyday Tobacco user Tobacco use type: Cigarette Cigarette Packs Per Day: 1 Cigarettes Per Day: 8 Years Smoked: 45 e-Cigarette/Vaping Use: Never Used Second Hand Smoke Exposure: No Substance Use Type: Marijuana Advance Directives Date on File: 06/05/24 service: No Current occupational status: unemployed Sexual orientation: Straight/Heterosexual Cognitive needs: No Hearing needs: No Vision needs: No Review of Systems Const All systems reviewed & are unremarkable except as noted in HPI and below Physical Exam Exam Exam: No apparent distress Nonicteric Abdomen soft, nondistended, no guarding, Alert and oriented x3, normal gait Vital Signs: Last Vital Signs Pulse 81 08/07/25 12:46 BP 105/59 L 08/07/25 12:46 BMI result Body Mass Index 19.1 Assessment & Plan Assessment & Plan (1) Abdominal pain: Code(s): R10.9 - Unspecified abdominal pain Category: Medical (2) Volvulus: Code(s): K56.2 - Volvulus Category: Medical (3) Esophagitis: Code(s): K20.90 - Esophagitis, unspecified without bleeding Category: Medical Plan 1. ??omental volvulus Discussed with the pt that this typically causes severe acute abdomen and unlikely to be the cause for abd pain x month but given severe persistent pain with weight loss, would recommend urgent imaging. Favor sending to ER for urgent CT as well as pain management. Expect called to ER. 2. Esophageal thickening She also has lower esophageal wall thickening dating back to 2023. Will need endoscopic evaluation for this, timing to be determined by overall clinical course. Coding Level of Care Code New Pt Level 4 (62706) Diagnoses Abdominal pain R10.9 Volvulus K56.2 Esophagitis K20.90
[2025-08-07 12:46] VITALS: BP 105/59; PULSE 81; BMI 19.1
== END 2025-08-07 13:32 | disposition home or self-care (01) ==
LOC: HO.HGI 12:41
PROVIDERS: PCP Internal Medicine; Visit Provider Internal Medicine
DX: R10.9 Unspecified abdominal pain (principal); K56.2 Volvulus; K20.90 Esophagitis, unspecified without bleeding
CPT/HCPCS: 99204

== ENCOUNTER 2025-08-07 13:36 | Emergency (ER) | payer OTHER, SELFPAY ==
--- NOTE | ~2025-08-07 | CT_ITS ---
CLINICAL HISTORY: periumbilical pain hx volvulus CT abdomen and pelvis with contrast Comparison: CT/REG/TN/SR - CT ABDOMEN PELVIS WITH IV CONTRAST - 06/28/25 10:40 EST Findings: No consolidation at the lung bases. Emphysema and increased subpleural reticulation. Unremarkable gallbladder and bladder. Focal fat at the falciform ligament. 7 mm stone in the main pancreatic duct. Subcentimeter low attenuating lesion in the right kidney. The other solid organs are unremarkable. Wall thickening of the distal esophagus , persistent. Mild gastric distention. Small bowel is dilated, measuring up to 3.0 cm. No swirling of the mesentery. There is no discrete transition point. No definitive bowel wall thickening. Foci of air adjacent to the wall of the cecum versus within the cecal wall (for example see series 7, image 25 and series 8, image 72). A normal appendix is identified. Colonic diverticulosis. No aneurysm. Severe calcified atherosclerotic disease. No lymphadenopathy. No ascites. No acute osseous abnormality. Impression: Dilation of the small bowel without a discrete transition point. No swirling of the mesentery to indicate recurrent volvulus. Ileus is favored. Obstruction is considered less likely. Follow up if symptoms persist or worsen. Foci of air adjacent to the wall of the cecum versus within the cecal wall. Pneumatosis could be considered. Persistent wall thickening of the distal esophagus may indicate esophagitis. Further evaluation with nonemergent upper endoscopy is recommended. This document has been electronically signed by: Pham Ibrahim MD on 08/07/2025 17:43:43
--- NOTE | 2025-08-07 14:05 | ED_ITS ---
HPI - General Adult General Chief complaint: Abdominal Pain Stated complaint: sent for CT scan Time Seen by Provider: 08/07/25 14:15 Source: patient Mode of arrival: ambulatory Limitations: no limitations History of Present Illness ED Provider: NICK CHONG PA-C HPI narrative: 64-year-old female with pmhx significant for HLD, COPD, T2DM, cannabis use disorder, OA, hypothyroidism, PTSD, bipolar disorder, nicotine dependence presents to the ED today for evaluation of intermittent abdominal pain x1 month. Patient was evaluated at our facility for same approximately 1 month ago. She was diagnosed with a twisted bowel and discharged home with GI follow up. Since this time, she has had intermittent abdominal pain. Localized periumbilically without radiation. She states it feels like my belly button is twisting . She rates pain 6/10. Admits to weight loss as she has not been eating s/t the pain. Endorses normal BMs - last BM this morning which was normal. Passing flatus. She has followed up with GI doctor Dr. Cole who spoke with general surgeon Dr. Stevens - they advised she come to the ED for a repeat abdominal CT scan. Denies fever, chills, chest pain, sob, N/V, urinary sx. Surgical history includes total hysterectomy. Related Data Home Medications ?Medication ?Instructions ?Recorded ?Confirmed divalproex 500 mg tablet,extended 500 mg PO BEDTIME 07/17/25 release 24 hr Previous Rx's ?Medication ?Instructions ?Recorded cholecalciferol (vitamin D3) 50 50 mcg PO DAILY #30 ca ps 10/29/24 mcg (2,000 unit) capsule (Vitamin D3) docusate sodium 100 mg capsule 100 mg PO BID PRN const ipation #60 10/29/24 caps guanfacine 1 mg tablet,extended 1 mg PO QID 30 days #1 20 tabs 10/29/24 release 24 hr ibuprofen 400 mg tablet 400 mg PO Q6H PRN muscle ivana n #0 10/29/24 tabs lidocaine 4 % topical patch 1 patch transdermal DAILY #30 ea 10/29/24 (Lidocaine Pain Relief) pregabalin 150 mg capsule 150 mg PO TID #90 caps 10/29 zolpidem 10 mg tablet (Ambien) 10 mg PO BEDTIME PRN sl eep #30 tabs 11/06/24 rosuvastatin 5 mg tablet 5 mg PO Q2D 3 months #45 tab s 11/08/24 clonazepam 2 mg tablet (Klonopin) 2 mg PO BEDTIME #7 t abs 12/05/24 lithium carbonate 300 mg tablet 150 mg (1/2 x 300 mg) PO DAILY 30 12/05/24 days #15 tabs modafinil 200 mg tablet 200 mg PO QAM #30 tabs 12/05 meloxicam 15 mg tablet 15 mg PO DAILY PRN pain (sca le 12/07/24 score 4-6) #20 tabs Diabetic ensure drink #60 ea 12/26/24 nicotine 21 mg/24 hr daily 1 patch transdermal DAILY q uit 03/07/25 transdermal patch smoking 28 days #28 ea ketorolac 10 mg tablet 10 mg PO Q6H PRN pain #20 ta bs 04/03/25 levothyroxine 50 mcg tablet 50 mcg PO DAILY@0600 #30 t abs 04/23/25 pramipexole 0.25 mg tablet 0.25 mg PO .COMPLEX #180 ta bs 05/15/25 methocarbamol 750 mg tablet 750 mg PO Q8H PRN pain, mo derate 5 06/26/25 days #15 tabs fluticasone 250 mcg-salmeterol 50 1 inh inhalation BID COPD 30 days 07/02/25 mcg/dose blistr powdr for #60 ea inhalation (Wixela Inhub) albuterol sulfate 1.25 mg/3 mL 2.5 mg (6 mL) inhalatio n Q4-6H PRN 07/19/25 solution for nebulization shortness of breath or wheez ing 30 days #90 mL omeprazole magnesium 20 mg 20 mg PO DAILY #20 tabs 01/06 tablet,delayed release (Prilosec OTC) albuterol sulfate 90 mcg/actuation 2 puff PO Q4-6H PRN for wheezing 07/30/25 aerosol inhaler #8.5 grams dicyclomine 20 mg tablet 20 mg PO BID #20 tabs hyoscyamine sulfate 0.125 mg tablet 0.125 mg PO QID LA N dyspepsia #14 08/07/25 tabs polyethylene glycol 3350 17 17 g PO DAILY PRN laxative effect 08/07/25 gram/dose oral powder (Miralax) #510 grams Allergies Allergy/AdvReac Type Severity Reaction Status Date / Time olanzapine (From ZYPREXA) AdvReac Intermediate RLS Verified 08/07/25 14:10 symptoms clonidine AdvReac RLS Verified 08/07/25 14:10 diphenhydramine (From AdvReac RLS Verified 08/07/25 14:10 Benadryl) hydroxyzine AdvReac RLS Verified 08/07/25 14:10 melatonin AdvReac RLS Verified 08/07/25 14:10 atypical antipsychotics AdvReac Severe This class Uncoded 08/07/25 14:10 appears to potentiate RLS/Akathesia Review of Systems 2 Review of Systems: Yes all other systems are reviewed and are negative PMFSH Past Medical History Attestation statement: The following information was validated with the patient. Source: old records reviewed and nursing notes reviewed Medical History (Updated 08/08/25 @ 00:01 by Terry Sullivan) Chronic abdominal pain Depression Nicotine dependence, cigarettes, uncomplicated Misuse of prescription only drugs 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 mutation [id number] ADHD Hypothyroidism Polysubstance use disorder Cannabis use disorder Cocaine use disorder Acute medication-induced akathisia Osteopenia of multiple sites Syncope Type II diabetes mellitus Fibromyalgia Benzodiazepine abuse RLS (restless legs syndrome) COPD (chronic obstructive pulmonary disease) HLD (hyperlipidemia) Surgical History History of vaginal hysterectomy History of cataract surgery Family History Family History Mother CAD (coronary artery disease) Father Alcoholism Son Substance use disorder Son Substance use disorder Social History Social History Household Members: Spouse Household Members Other:: son's girlfriend Housing: Apartment Do you presently have visiting nurse or other home services: No Alcohol intake: never Comment: Pt reports falling d/t excessive intake of Benzo's prior to admission Patient Tobacco Use Status: Current everyday Tobacco user Tobacco use type: Cigarette Cigarette Packs Per Day: 1 Cigarettes Per Day: 8 Years Smoked: 45 e-Cigarette/Vaping Use: Never Used Second Hand Smoke Exposure: No Substance Use Type: Marijuana Advance Directives Date on File: 06/05/24 service: No Current occupational status: unemployed Sexual orientation: Straight/Heterosexual Cognitive needs: No Hearing needs: No Vision needs: No Physical Exam ED Vital Signs: Vital Signs - 24 hr 08/07/25 14:06 08/07/25 15:37 08/07/25 18:24 Temperature 98 F 98.7 F Pulse Rate 82 88 Respiratory Rate 18 16 16 Blood Pressure 112/53 L 138/72 Pulse Oximetry 93 96 Oxygen Delivery Method Room Air Room Air BMI result Body Mass Index 19.5 Vital signs stable, afebrile General: thin appearing female Skin: Warm, dry, intact. No rashes or lesions. Head: Normocephalic, atraumatic. EENT: Hearing is intact b/l. Conjunctiva clear. PERRLA. EOM intact. Moist mucous membranes.? Cardiac: Chest wall symmetric. RRR Lungs: Normal respiratory effort without accessory muscle use. CTA bilaterally Abdomen: Soft, nondistended, no tenderness, no rebound or guarding, active bowel sounds x4. no mcburney point tenderness. No CVAT. Back: No midline spinous or paraspinal tenderness. No step off deformity. Ext: Upper and lower extremities atraumatic, without tenderness, deformity, swelling or erythema. Full ROM throughout. Neuro: AOx3. Normal speech. Ambulating with steady gait. Psych: Appropriate mood and affect. Responds appropriately to questions. Course Course Course Narrative: This is a rapid medical exam performed by Nathalie Loera NP: Additional HPI, ROS, PE not included below will be deferred to primary provider. Patient is a 64y/o F referred to the ED from Dr. Cole's office for abdominal pain. Seen here 06/28, had CT A/P which showed omental or mesenteric volvulus, still having pain. Dr. Cole spoke with Dr. Stevens who would like repeat CT A/P with IV contrast only. Plan: Labs, charge preparation technician aware Reevaluation(s) Reevaluation #1: [id number] -- Labs/imaging pending. Medicated with IVF and morphine for pain. Patient is stable at this time - sign out given to Dr. Denise pending work up/dispo. Medications Administered Discontinued Medications Generic Name Dose Route Start Last Admin Trade Name Freq PRN Reason Stop Dose Admin Sodium Chloride 1,000 mls @ 999 mls/hr 08/07/25 15:00 08/07/25 16:38 Ns IV 08/07/25 16:00 Infused .Q1H1M LORI Infusion Iohexol 100 ml 08/07/25 16:33 08/07/25 16:34 Iohexol 350 Mg/Ml 100 Ml Infus..Btl IV 08/07/25 16:34 85 ml ONCE ONE Administration Morphine Sulfate 4 mg 08/07/25 14:25 08/07/25 15:37 Morphine Sulfate 4 Mg/Ml Cartridge IVPUSH 08/07/25 14:26 4 mg ONCE ONE Administration Protocol Morphine Sulfate 2 mg 08/07/25 18:10 08/07/25 18:20 Morphine Sulfate 4 Mg/Ml Cartridge IVPUSH 08/07/25 18:11 Not Given ONCE ONE Protocol Medical Decision Making Medical Decision Making MDM Narrative: 64-year-old female with pmhx significant for HLD, COPD, T2DM, cannabis use disorder, OA, hypothyroidism, PTSD, bipolar disorder, nicotine dependence presents to the ED today for evaluation of intermittent abdominal pain x1 month. Vital signs stable, afebrile. She is well-appearing in no acute distress. on exam, abdomen is soft, nondistended, no temderness, no rebound or guarding, active bowel sounds x4. no mcburney point tenderness. No CVAT. Differential diagnosis includes volvulus, small-bowel obstruction, diverticulosis, diverticulitis, appendicitis, constipation Plan for labs, CT, IVF and pain medications. I received sign-out from my colleague ELISE Chong -Dr. Stevens from the surgery team was also here to assess the patient at bedside There is no significant abnormality in patient's hematology or chemistry CT scan shows ileus obstruction hit her in the slightly. No indication for recurrent volvulus Overall, the patient feels better and would like to be discharged home. Differential Diagnosis Differential Diagnoses: The differential diagnosis associated with the presentation includes as above. Admission/Observation Consideration of admission/observation: Escalation of care including admission/observation considered Consult Healthcare Provider Management of the patient was discussed with: Product Control And Logistics Analyst (dr. stevens) Lab Data [facility] Lab Attestation statement: I reviewed the patient's lab results. as above. 08/07/25 14:57 08/07/25 14:57 Labs: Lab Results 08/07/25 Range/Units 14:57 WBC 7.6 (4.8-10.8) X10*3/uL RBC 3.80 L (4.20-5.50) X10*6/uL Hgb 12.5 (12.0-16.0) g/dl Hct 37.7 (37.0-47.0) % MCV 99.2 H (80.0-98.0) fL MCH 32.9 (27.0-33.0) pg MCHC 33.2 (31.0-35.0) g/dl RDW 12.9 (11.0-16.0) % Plt Count 347 (160-400) X10*3/uL MPV 9.1 L (9.4-12.3) fL Immature Gran % (Auto) 0.3 (0.0-0.4) % Neut % (Auto) 58.1 (45-73) % Lymph % (Auto) 25.9 (20-40) % [place] % (Auto) 9.7 (2-11) % Eos % (Auto) 5.3 H (0-4) % Baso % (Auto) 0.7 (0-2) % Lymph # (Auto) 2.0 (1.2-4.9) X10*3/uL [place] # (Auto) 0.7 (0.1-1.2) X10*3/uL Eos # (Auto) 0.4 (0.0-0.4) X10*3/uL Baso # (Auto) 0.1 (0.0-0.2) X10*3/uL Abs Immat Gran (auto) 0.02 (0.00-0.03) X10*3/uL Absolute Neuts (auto) 4.4 (2.0-8.3) x10*3/uL Absolute Nucleated RBC 0.000 (0.0-0.012) X10*3/uL Nucleated RBC % (auto) 0.0 (0.0-0.2) /100WBC PT 10.5 L (11.2-13.5) SEC INR 0.9 (0.9-1.1) Sodium 142 (135-145) mmol/L Potassium 4.3 (3.3-5.1) mmol/L Chloride 108 (96-108) mmol/L Carbon Dioxide 27 (22-29) mmol/L Anion Gap 11 L (12-20) BUN 10 (9-16) mg/dL Creatinine 0.65 (0.5-1.4) mg/dL Estim Creat Clear Calc 66.1 Estimated GFR > 60 Random Glucose 82 (60-115) mg/dL Calcium 8.8 D (8.4-10.2) mg/dL Magnesium 1.8 (1.6-2.6) mg/dL Total Bilirubin 0.1 (0.0-1.0) mg/dL AST 18 (5-31) U/L ALT 10 (0-31) U/L Alkaline Phosphatase 89 (39-117) U/L Total Protein 6.2 L (6.5-8.0) g/dL Albumin 3.9 (3.5-5.0) g/dL Lipase 14 (8-78) U/L Independent Interpretation I performed an independent interpretation of an: CT Scan Interpretation: ct a/p without bowl obstruction Radiology Impression Discussion of test interpretation with radiology: I have reviewed the radiologist's reading. Radiologist Impression: No consolidation at the lung bases. Emphysema and increased subpleural reticulation. Unremarkable gallbladder and bladder. Focal fat at the falciform ligament. 7 mm stone in the main pancreatic duct. Subcentimeter low attenuating lesion in the right kidney. The other solid organs are unremarkable. Wall thickening of the distal esophagus , persistent. Mild gastric distention. Small bowel is dilated, measuring up to 3.0 cm. No swirling of the mesentery. There is no discrete transition point. No definitive bowel wall thickening. Foci of air adjacent to the wall of the cecum versus within the cecal wall (for example see series 7, image 25 and series 8, image 72). A normal appendix is identified. Colonic diverticulosis. No aneurysm. Severe calcified atherosclerotic disease. No lymphadenopathy. No ascites. No acute osseous abnormality. Impression: Dilation of the small bowel without a discrete transition point. No swirling of the mesentery to indicate recurrent volvulus. Ileus is favored. Obstruction is considered less likely. Follow up if symptoms persist or worsen. Foci of air adjacent to the wall of the cecum versus within the cecal wall. Pneumatosis could be considered. Persistent wall thickening of the distal esophagus may indicate esophagitis. Further evaluation with nonemergent upper endoscopy is recommended. Independent Historian Clinical information obtained from an independent historian. History obtained from or confirmed by: Spouse External Record Review External record reviewed: Inpatient record, Office record, Outpatient record and Prior outpatient labs Prescription Management I considered prescription management with: Pain Medication Chronic Conditions Patient?s care impacted by: Diabetes Social Determinants Patient?s care significantly limited by Social Determinants of Health including: Other Social Determinant of Health Critical Care Time Critical Care Time Critical Care Time: Yes Total Critical Care Time: 32 Attestation: Critical care time in the amount of 32 minutes has been provided to the patient in terms of direct patient care, frequent reevaluation on IV morphine, review and interpretation of medical data and results, and management of potentially life-threatening conditions. This is all outside of any medical procedures. Discharge Plan Discharge Clinical Impression: Abdominal pain, Ileus Patient Disposition: Home, Self-Care Instructions: Abdominal Pain (ED) Additional Instructions: Please follow-up with your primary care physician tomorrow. If you have any worsening or new symptoms, please return to the emergency room or call 911 Prescriptions: New hyoscyamine sulfate 0.125 mg tablet 0.125 mg PO QID PRN (Reason: dyspepsia) Qty: 14 0RF dicyclomine 20 mg tablet 20 mg PO BID Qty: 20 0RF polyethylene glycol 3350 [Miralax] 17 gram/dose powder 17 g PO DAILY PRN (Reason: laxative effect) Qty: 510 0RF No Action modafinil 200 mg tablet 200 mg PO QAM Qty: 30 0RF clonazepam [Klonopin] 2 mg tablet 2 mg PO BEDTIME Qty: 7 0RF Rx Instructions: administer 30 minutes before bedtime lithium carbonate 300 mg tablet 150 mg PO DAILY 30 Days Qty: 15 0RF meloxicam 15 mg tablet 15 mg PO DAILY PRN (Reason: pain (scale score 4-6)) Qty: 20 0RF (DME) Diabetic ensure drink See Rx Instructions .Route .MEDSUPPLY Qty: 60 11RF Rx Instructions: Diabetic ensure drink twice daily as directed divalproex 500 mg tablet extended release 24 hr 500 mg PO BEDTIME levothyroxine 50 mcg tablet 50 mcg PO DAILY@0600 Qty: 30 3RF fluticasone propion-salmeterol [Wixela Inhub] 250-50 mcg/dose blister with device 1 inh inhalation BID 30 Days Qty: 60 5RF albuterol sulfate 1.25 mg/3 mL solution for nebulization 2.5 mg inhalation Q4-6H PRN (Reason: shortness of breath or wheezing) 30 Days Qty: 90 3RF omeprazole magnesium [Prilosec OTC] 20 mg tablet,delayed release (DR/EC) 20 mg PO DAILY Qty: 20 0RF albuterol sulfate 90 mcg/actuation HFA aerosol inhaler 2 puff PO Q4-6H PRN (Reason: for wheezing) Qty: 8.5 0RF zolpidem [Ambien] 10 mg tablet 10 mg PO BEDTIME PRN (Reason: sleep) Qty: 30 0RF ibuprofen 400 mg Tablet 400 mg PO Q6H PRN (Reason: muscle pain) Qty: 0 0RF pregabalin 150 mg Capsule 150 mg PO TID Qty: 90 0RF lidocaine [Lidocaine Pain Relief] 4 % Adhesive Patch,Medicated 1 patch transdermal DAILY Qty: 30 0RF Protocol: Apply to: Apply to: affected area docusate sodium 100 mg capsule 100 mg PO BID PRN (Reason: constipation) Qty: 60 0RF cholecalciferol (vitamin D3) [Vitamin D3] 50 mcg (2,000 unit) capsule 50 mcg PO DAILY Qty: 30 0RF guanfacine 1 mg tablet extended release 24 hr 1 mg PO QID 30 Days Qty: 120 2RF Rx Instructions: Take one tablet 4 times a day at 7am, 12pm and 5pm, and bedtime ketorolac 10 mg tablet 10 mg PO Q6H PRN (Reason: pain) Qty: 20 0RF Rx Instructions: maximum total duration of 5 days from all oral, intranasal, or parenteral formulations. The patient received an intramuscular dose of Toradol here in the emergency room. rosuvastatin 5 mg tablet 5 mg PO Q2D 90 Days Qty: 45 3RF nicotine 21 mg/24 hr patch 24 hour 1 patch transdermal DAILY 28 Days Qty: 28 1RF pramipexole 0.25 mg tablet 0.25 mg PO .COMPLEX Qty: 180 1RF Rx Instructions: 0.25 mg orally evening and bedtime; methocarbamol 750 mg tablet 750 mg PO Q8H PRN (Reason: pain, moderate) 5 Days Qty: 15 0RF Interventions: ED Discharge Assessment Last Done: 08/07/25 18:24 Discharge Date/Time: 08/07/25 18:24 Print Language: Belarusian
[2025-08-07 14:06] VITALS: BP 112/53; PULSE 82; RESP 18; TEMP 36.6; O2SAT 93; BMI 19.5
[2025-08-07 15:04] LABS: MANUAL DIFF FLAG NO
[2025-08-07 15:09] LABS: Hematocrit 37.7 % (37.0-47.0); Hemoglobin 12.5 g/dl (12.0-16.0); Imm Gran Abs Auto 0.02 X10*3/uL (0.00-0.03); Imm Gran Pct Auto 0.3 % (0.0-0.4); Lymphocytes Absolute Auto 2.0 X10*3/uL (1.2-4.9); Mean Corpuscular HGB Conc 33.2 g/dl (31.0-35.0); Mean Corpuscular Hemoglobin 32.9 pg (27.0-33.0); Mean Corpuscular Volume 99.2 fL (80.0-98.0); NRBC Abs Auto 0.000 X10*3/uL (0.0-0.012); NRBC Pct Auto 0.0 /100WBC (0.0-0.2); Platelet Count 347 X10*3/uL (160-400); Red Blood Count 3.80 X10*6/uL (4.20-5.50); White Blood Count 7.6 X10*3/uL (4.8-10.8)
[2025-08-07 15:16] LABS: INTERNATIONAL NORM RATIO 0.9 (0.9-1.1); Prothrombin Time 10.5 SEC (11.2-13.5)
[2025-08-07 15:22] LABS: Alanine Aminotransferase 10 U/L (0-31); Albumin Level 3.9 g/dL (3.5-5.0); Alkaline Phosphatase 89 U/L (39-117); Anion Gap 11 (12-20); Aspartate Amino Transferase 18 U/L (5-31); Blood Urea Nitrogen 10 mg/dL (9-16); Calcium 8.8 mg/dL (8.4-10.2); Carbon Dioxide 27 mmol/L (22-29); Chloride 108 mmol/L (96-108); Creatinine Clr Calc Pharmacy 66.1; Estimated Glomerular Filt Rate > 60; Lipase 14 U/L (8-78); Magnesium 1.8 mg/dL (1.6-2.6); Potassium 4.3 mmol/L (3.3-5.1); Sodium 142 mmol/L (135-145); Total Protein 6.2 g/dL (6.5-8.0)
[2025-08-07 15:37] VITALS: RESP 16
[2025-08-07] MEDS: iohexoL 350 MG/ML 100 ML INFUS..BTL IV (16:34)
--- NOTE | 2025-08-07 16:49 | PM.CNGS ---
History of Present Illness Consult details Consult date: 08/07/25 Narrative: 64 year old female here in the ER for abdominal pain. She was sent to the ER by the management and budget analyst service because of intermittent pain for about 6 weeks now. She was in the ER about 6 weeks ago for a sharp pain in the umbilical area. She had a CAT scan suggested an omental torsion. She was discharged the ER at that time She has been having this periods of low intensity pain over a month. She also says that she gets full easily and has had poor oral intake. She says that she seems to really get hungry but as soon as she has a few bites, she feels full She denies any diarrhea or vomiting. She does have multiple medical problems including diabetes, ADHD, hypothyroidism, COPD with nicotine dependence, fibromyalgia, bipolar disorder, chronic neck pain, osteoarthritis and cannabis use. Currently she says that she does not describe her discomfort as ?pain?. She says that she just feels sensitive throughout her entire abdomen mostly in the upper part. Review of Systems Constitutional: Constitutional: Denies chills, Denies fever(s) and Reports weight loss Cardiovascular: Cardiovascular: Denies chest pain, Denies dyspnea and Denies dyspnea on exertion Respiratory: Respiratory: Denies cough, Denies dyspnea and Denies dyspnea on exertion Gastrointestinal: Gastrointestinal: Denies hematochezia and Denies change in bowel habits Genitourinary: Genitourinary: Denies hematuria Musculoskeletal: Musculoskeletal: Denies back pain and Denies limited range of motion Neurologic: Denies focal weakness and Denies convulsions Psychiatric: Psychiatric: Denies depression and Denies mood swings [facility] Past Medical History Medical History (Updated 08/08/25 @ 00:01 by Terry Sullivan) Chronic abdominal pain Depression Nicotine dependence, cigarettes, uncomplicated Misuse of prescription only drugs 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 mutation [id number] ADHD Hypothyroidism Polysubstance use disorder Cannabis use disorder Cocaine use disorder Acute medication-induced akathisia Osteopenia of multiple sites Syncope Type II diabetes mellitus Fibromyalgia Benzodiazepine abuse RLS (restless legs syndrome) COPD (chronic obstructive pulmonary disease) HLD (hyperlipidemia) Family History Family History Mother CAD (coronary artery disease) Father Alcoholism Son Substance use disorder Son Substance use disorder Surgical History Surgical History History of vaginal hysterectomy History of cataract surgery Social History Social History Household Members: Spouse Household Members Other:: son's girlfriend Housing: Apartment Do you presently have visiting nurse or other home services: No Alcohol intake: never Comment: Pt reports falling d/t excessive intake of Benzo's prior to admission Patient Tobacco Use Status: Current everyday Tobacco user Tobacco use type: Cigarette Cigarette Packs Per Day: 1 Cigarettes Per Day: 8 Years Smoked: 45 e-Cigarette/Vaping Use: Never Used Second Hand Smoke Exposure: No Substance Use Type: Marijuana Advance Directives Date on File: 06/05/24 service: No Current occupational status: unemployed Sexual orientation: Straight/Heterosexual Cognitive needs: No Hearing needs: No Vision needs: No Meds Allergies Allergy/AdvReac Type Severity Reaction Status Date / Time olanzapine (From ZYPREXA) AdvReac Intermediate RLS Verified 08/07/25 14:10 symptoms clonidine AdvReac RLS Verified 08/07/25 14:10 diphenhydramine (From AdvReac RLS Verified 08/07/25 14:10 Benadryl) hydroxyzine AdvReac RLS Verified 08/07/25 14:10 melatonin AdvReac RLS Verified 08/07/25 14:10 atypical antipsychotics AdvReac Severe This class Uncoded 08/07/25 14:10 appears to potentiate RLS/Akathesia Home Medications ?Medication ?Instructions ?Recorded ?Confirmed ?Last Taken ?Type divalproex 500 mg tablet,extended 500 mg PO BEDTIME 03/27/25 07/17/25 Unknown History release 24 hr Physical Exam Vital Signs: Vital Signs: Last Vital Signs Temp 98 F 08/07/25 14:06 Pulse 82 08/07/25 14:06 Resp 16 08/07/25 15:37 BP 112/53 L 08/07/25 14:06 Pulse Ox 93 08/07/25 14:06 O2 Del Method Room Air 08/07/25 14:06 BMI result Body Mass Index 19.5 Const: General: comfortable and no acute distress Orientation/consciousness: patient oriented x3 Neck: Neck: Yes no lymphadenopathy Resp: Auscultation: clear to auscultation bilaterally Cardio: Rhythm: regular rhythm GI: Other: Nondistended, very benign Palpation (GI): Soft to palpation, nontender and no guarding Neuro: General: patient oriented x3 Results Labs 08/07/25 14:57 08/07/25 14:57 Labs: Abnormal lab results 08/07/25 Range/Units 14:57 RBC 3.80 L (4.20-5.50) X10*6/uL MCV 99.2 H (80.0-98.0) fL MPV 9.1 L (9.4-12.3) fL Eos % (Auto) 5.3 H (0-4) % PT 10.5 L (11.2-13.5) SEC Anion Gap 11 L (12-20) Total Protein 6.2 L (6.5-8.0) g/dL Short CBC 08/07/25 Range/Units 14:57 WBC 7.6 (4.8-10.8) X10*3/uL Hgb 12.5 (12.0-16.0) g/dl Hct 37.7 (37.0-47.0) % Plt Count 347 (160-400) X10*3/uL BMP 08/07/25 14:57 Sodium 142 Potassium 4.3 Chloride 108 Carbon Dioxide 27 BUN 10 Creatinine 0.65 Calcium 8.8 D Liver Function 08/07/25 Range/Units 14:57 Total Bilirubin 0.1 (0.0-1.0) mg/dL AST 18 (5-31) U/L ALT 10 (0-31) U/L Alkaline Phosphatase 89 (39-117) U/L Albumin 3.9 (3.5-5.0) g/dL All other labs normal. Assessment and Plan (1) Chronic abdominal pain: Status: Acute She actually describes this as low intensity pain with the early satiety . She denies any vomiting. I have reviewed her CAT scan and this does not show any significant acute pathology. Her stomach is distended and gastroparesis maybe a differential. However, I did not see any acute inflammatory process, obstruction or any tumor Her presentation is also chronic. She has a very benign exam. Her labs are unremarkable I would recommend follow up with her management and budget analyst. It has been discussed with her that she undergoes endoscopy and colonoscopy which I would agree I have followed her closely during her stay in the ER and she has remained stable and very benign. Her was with her during the visit as well. Procedures Date of Service Date of Service: 08/13/25
[2025-08-07 18:24] VITALS: BP 138/72; PULSE 88; RESP 16; TEMP 37.1; O2SAT 96
== END 2025-08-07 18:24 | disposition home or self-care (01) ==
PROVIDERS: Registered Nurse Emergency; Emergency Provider Emergency Medicine; PCP Internal Medicine
DX: K56.7 Ileus, unspecified (principal); R10.33 Periumbilical pain; E11.9 Type 2 diabetes mellitus without complications; E78.5 Hyperlipidemia, unspecified; E03.9 Hypothyroidism, unspecified; J44.9 Chronic obstructive pulmonary disease, unspecified; F17.210 Nicotine dependence, cigarettes, uncomplicated; Z79.02 Long term (current) use of antithrombotics/antiplatelets; Z79.899 Other long term (current) drug therapy
CPT/HCPCS: 36415; 74177; 80053; 83690; 83735; 85025; 85610; 96361; 96374; 99283; 99285; J2270; Q9967

== ENCOUNTER → 2025-08-07 14:18 | Outpatient (BNV) | payer OTHER, SELFPAY | PROVIDERS: Emergency Provider Emergency Medicine; PCP Internal Medicine; Visit Provider Surgery | DX: R10.9 Unspecified abdominal pain (principal); G89.29 Other chronic pain | CPT/HCPCS: 99283 ==